=== PATIENT | male | born 1945 | race Caucasian/White ===

== ENCOUNTER 2023-01-04 08:21 | Outpatient (OUT) | payer MEDICARE, SELFPAY ==
[2023-01-04 15:30] LABS: Calcium Urine Random 14.9 mg/dL (5.1-21.0); Creatinine Urine Random 122.45 mg/dL (20.00-300.00); Sodium Urine Random 131 mmol/L (30-90)
[2023-01-04 15:34] LABS: Calcium 24 Hour Urine 197.4 mg/24hr (100.0-300.0); Sodium 24 Hour Urine 174 mmol/24h (40-220); Total Volume 24 Hour Urine 1325 mL/24hr
[2023-01-05 09:08] LABS: Magnesium, U 9.2 mg/dL (Not Estab.); Magnesium,Urine 24hr 121.9 mg/24 hr (12.0-293.0); Phosphorus, Urine 51.3 mg/dL (Not Estab.); Phosphorus,Urine 24h 680 mg/24 hr (390-1425); Uric Acid, Urine 26.3 mg/dL (Not Estab.); Uric Acid,Urine 24hr 348.5 mg/24 hr (136.1-771.1)
[2023-01-05 17:09] LABS: Citric Acid, U, 24hr 1031 mg/24 hr (320-1240); Citric Acid, Urine 764 mg/L (Undefined)
[2023-01-09 00:07] LABS: Oxalates, Urine 30 mg/L (Undefined); Oxalates, Urine 24hr 40 mg/24 hr (7-44)
== END 2023-01-04 08:22 | disposition home or self-care (01) ==
PROVIDERS: PCP Family Medicine; Visit Provider Urology
DX: N20.0 Calculus of kidney (principal)
CPT/HCPCS: 82340; 82507; 82570; 83735; 83945; 84300

== ENCOUNTER 2023-01-11 09:13 | Outpatient (OUT) | payer MEDICARE, SELFPAY ==
[2023-01-11 09:33] LABS: Basophils Percent Auto 0.4 % (0.2-2.0); Eosinophils Absolute Auto 0.3 10^3/uL (0.0-0.7); Eosinophils Percent Auto 4.6 % (0.9-7.0); Hematocrit 33.2 % (42.0-54.0); Hemoglobin 11.4 g/dL (14.0-18.0); Immature Granulocytes Abs Auto 0.02 10^3/uL (0.00-0.03); Immature Granulocytes Pct Auto 0.4 % (0.0-0.5); Lymphocytes Absolute Auto 0.9 10^3/uL (1.2-3.8); Lymphocytes Percent Auto 16.8 % (20.5-60.0); Mean Corpuscular HGB Conc 34.3 g/dL (29.9-35.2); Mean Corpuscular Hemoglobin 32.4 pg (25.9-34.0); Mean Corpuscular Volume 94.3 fL (80.0-94.0); Mean Platelet Volume 8.6 fL (9.5-13.5); Monocytes Absolute Auto 0.3 10^3/uL (0.3-0.8); Neutrophils Absolute Auto 3.9 10^3/uL (1.4-6.5); Neutrophils Percent Auto 71.8 % (43.0-75.0); Platelet Count 107 10^3/uL (150-450); Red Blood Count 3.52 10^6/uL (4.70-6.10); White Blood Count 5.5 10^3/uL (4.0-11.0)
[2023-01-11 10:09] LABS: Microalbumin Urine Random 5.9 mg/dL (<=30.0)
[2023-01-11 10:36] LABS: Alanine Aminotransferase 33 U/L (16-63); Albumin Globulin Ratio 1.1; Albumin Level 3.7 g/dL (3.4-5.0); Alkaline Phosphatase 95 U/L (46-116); Anion Gap 11.1; Aspartate Amino Transferase 20 U/L (15-37); BUN Creatinine Ratio 21.7; Bilirubin Direct 0.1 mg/dL (0.0-0.2); Bilirubin Total 0.4 mg/dL (0.2-1.0); Calcium 8.8 mg/dL (8.5-10.1); Carbon Dioxide 27.7 mmol/L (21.0-32.0); Chloride 103 mmol/L (98-107); Chol HDL Ratio 3.7; Cholesterol 121 mg/dL (<=200); Estimated GFR (African America >60 (>=60); Estimated GFR (Non-African Ame >60 (>=60); Globulin 3.3 g/dL; Glucose 107 mg/dL (74-106); HDL Cholesterol 33 mg/dL (40-60); Potassium 4.8 mmol/L (3.5-5.1); Sodium 137 mmol/L (136-145); Triglycerides 297 mg/dL (<=150); VLDL CHOLESTEROL 59.4 mg/dL
[2023-01-11 13:32] LABS: Estimated Average Glucose 126 mg/dL
== END 2023-01-11 09:14 | disposition home or self-care (01) ==
LOC: LAB 09:14
PROVIDERS: PCP Family Medicine; Visit Provider Family Medicine
DX: E11.65 Type 2 diabetes mellitus with hyperglycemia (principal); N18.31 Chronic kidney disease, stage 3a; I12.9 Hypertensive chronic kidney disease with stage 1 through stage 4 chronic kidney disease, or unspecified chronic kidney disease; E11.22 Type 2 diabetes mellitus with diabetic chronic kidney disease; E78.5 Hyperlipidemia, unspecified; Z79.899 Other long term (current) drug therapy; Z79.4 Long term (current) use of insulin
CPT/HCPCS: 36415; 80048; 80061; 80076; 82043; 82306; 83036; 85025

== ENCOUNTER 2023-08-07 09:48 | Outpatient (OUT) | payer MEDICARE, SELFPAY ==
[2023-08-07 10:37] LABS: Microalbumin Urine Random 9.3 mg/dL (<=30.0)
[2023-08-07 10:46] LABS: Estimated Average Glucose 157 mg/dL; Glycohemoglobin A1C 7.1 % (4.5-6.2)
== END 2023-08-07 09:49 | disposition home or self-care (01) ==
LOC: LAB 09:50
PROVIDERS: PCP Family Medicine; Visit Provider Family Medicine
DX: E11.65 Type 2 diabetes mellitus with hyperglycemia (principal); Z79.4 Long term (current) use of insulin
CPT/HCPCS: 36415; 82043; 83036

== ENCOUNTER 2024-12-30 09:10 | Outpatient (OUT) | payer MEDICARE, SELFPAY ==
--- OUTSIDE RECORDS SUMMARY | 2024-12-30 09:13 | XMS_ITS | Clinical Summary ---
Author Organization [facility] Address [address] [place] [address] Care Team Providers Care Engraver Signature Name Role Phone DavenportAlejandro Florecita GAN Primary Care Provider Allergies No known active allergies Medications metFORMIN (GLUCOPHAGE) 1,000 mg tablet Take 1,000 mg by mouth twice daily. 8 Active metoprolol succinate ER (TOPROL XL) 100 mg Tb24 Take 50 mg by mouth once daily. 8 Active lisinopril (ZESTRIL, PRINIVIL) 40 mg tablet Take 40 mg by mouth once daily. 8 Active allopurinol (ZYLOPRIM) 300 mg tablet Take 300 mg by mouth once daily. 8 Active tamsulosin ER (FLOMAX) 0.4 mg cap Take 0.4 mg by mouth once daily. 8 Active rosuvastatin (CRESTOR) 10 mg tablet Take 10 mg by mouth once daily. 8 Active esomeprazole (NEXIUM) 40 mg capsule Take 40 mg by mouth once daily. Active LANTUS U-100 INSULIN 100 unit/mL injection Inject 50 Units subcutaneously daily at bedtime. 8 Active TRULICITY 1.5 mg/0.5 mL pnij Inject 1.5 mg subcutaneously once each week. 9 Active cyanocobalamin (VITAMIN B-12) 1,000 mcg tab Take 1,000 mcg by mouth once daily. Active antiox #8/om3/dha/epa /lut/zeax (PRESERVISION AREDS 2, OMEGA-3, ORAL) Take 1 tablet by mouth twice daily. Active meloxicam (MOBIC) 15 mg tablet Take 15 mg by mouth once daily. 2 8 Active aspirin, enteric coated (ADULT LOW DOSE ASPIRIN) 81 mg EC tablet Take 81 mg by mouth once daily. Active acetaminophen (TYLENOL) 325 mg tablet Take 650 mg by mouth every 6 hours as needed. Active amLODIPine (NORVASC) 5 mg tablet Take 5 mg by mouth once daily. 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 Family History Medical History Relation Comments Diabetes Brother Hypertension Brother Diabetes Mother Hypertension Mother Amblyopia No Family History Blindness No Family History Cancer No Family History Cataract No Family History Detached Retina No Family History Glaucoma No Family History Heart No Family History Macular Degen No Family History Strabismus No Family History Relation Status Comments Brother Mother Social History Tobacco Use Types Packs/Day Years Used Date Smoking Tobacco: Never Smokeless Tobacco: Never Alcohol Use Standard Drinks/Week Comments Yes 0 (1 standard drink = 0.6 oz pur e alcohol) minimal Area Deprivation Index Answer Date Atul rded National Score (1-100), lower number is lower ri sk 66 07/08/2022 State Score (1-10), lower number is lower risk N ot on file 07/08/2022 Data from: https://www.neighborhoodatlas.medicine.[facility].edu/. Last address used for calculation [address] 07/08/2022 Sex and Gender Information Value Date Recorded Sex Assigned at Not on file Legal Sex Male 12:52 PM EDT Gender Identity Not on file Sexual Orientation Not on file Plan of Treatment Health Maintenance Due Date Last Done Comments Anxiety Screening 1963 Depression Screening 1963 DTaP,Tdap,Td Vaccine (1 - Tdap) 1964 Pneumococcal Vaccine: 50+ (1 of 1 - PCV) 1995 Shingrix Vaccine (1 of 2) 1995 RSV Vaccine (1 - 1-dose 75+ series) 2020 Diabetes Screening 08/29/2020 08/29/2017, 0 08/29/2017, 08/29/2017 Covid-19 Vaccine ( - 2023- season) 2024 Advance Directive Discussion 06/11/2024 Influenza Vaccine (#1) 2025 Insurance [facility] MEDICARE Care Teams Engraver Signature Relationship Specialty Start Date End Date Alejandro Davenport DO PCP - General Family Medicine 10/02/13
--- OUTSIDE RECORDS SUMMARY | 2024-12-30 09:13 | XMS_ITS | Encounter Summary ---
Author Organization [facility] Address [address] [place] [address] [place] [address] Care Team Providers Care Buffing Wheel Former Machine Name Role Phone Blake Larson MD Primary Care Provider [phone] Blake Larson MD Unavailable Encounter Details Date Type Department Care Team (Late Contact Info) Description 08/22/2023 External Result Encounter [facility] External Department Unsolicited Blake Larson MD [address] [place] [phone] Social History Tobacco Use Types Packs/Day Years Used Date Smoking Tobacco: Never Alcohol Use Standard Drinks/Week Comments Yes 1 (1 standard drink = 0.6 oz pure alcohol) Caffeine intake: 1-2 cups per day, coffee, soda AUDIT-C Answer Date Recorded Frequency of Alcohol Consumption Not on file 04/12/2023 Q2: How many drinks containi ng alcohol do you have on a typical day when you are drinking? 1 or 2 04/12/2023 Q3: How often do you have si x or more drinks on one occasion? Weekly 04/12/2023 Sex and Gender Information Value Date Recorded Sex Assigned at Not on file Legal Sex Male 6:53 PM EDT Gender Identity Not on file Sexual Orientation Not on file documented as of this encounter Plan of Treatment Upcoming Encounters Date Type Department Care Team (Late Contact Info) Description 01/26/2025 9:15 AM EDT Procedure Visit [facility] [address] [place] [phone] Errol Powell, DPM [address] [facility] [place] [place] [address] 02/03/2025 10:30 AM EDT Office Visit [facility] [address] [place] [address] Blake Larson MD [address] [place] [address] 07/28/2025 9:45 AM EST Office Visit [facility] [address] [place] [address] Sophia Mcmahon MD [address] [place] [address] documented as of this encounter Procedures Procedure Name Priority Date/Time Associated Diagnosis Comments STRESS TEST ONLY, REGADENOSON 08/22/2023 5:29 PM EDT documented in this encounter Results * Stress test only, Regadenoson (08/22/2023 5:29 PM EDT) Anatomical Region Laterality Modality Other 08/22/2023 5:29 PM EDT Narrative 08/24/2023 1:10 PM EDT [facility] Main [address] [address] Cardiac Stress Test Signed Patient: Fabian Chamorro MR#: [id number] : 1945 Acct:[id number] Age/Sex: 78 / M ADM Date: 08/22/23 Loc: Room: Type: [facility] Attending Dr: Blake Larson MD Copies to: MD Giancarlo Quintero MD Ordering Provider: Blake Larson MD Date of Service: 08/22/23 STR/STR cardiac stress/lexiscan: CHEST DISCOMFORT REFERRING PHYSICIAN: Blake Larson MD REASON FOR STUDY: Chest discomfort. PROCEDURE: The patient underwent Lexiscan myocardial perfusion study. The patient was injected with 0.4 mg of Lexiscan, following which no symptoms reported. Blood pressure and heart response to Lexiscan was physiologic. Baseline ECG showed normal sinus rhythm, nonspecific ST-T changes. Following Lexiscan, nondiagnostic changes were seen. CONCLUSION: 1. Lexiscan Cardiolite stress test without diagnostic ST-T changes for ischemia. 2. No provoked chest pain or arrhythmia. 3. Appropriate hemodynamic response to Lexiscan. 4. Myocardial perfusion study will be dictated separately. Transcribed By: GUSTAVO 08/23/23 1349 Dictated By: Giancarlo Hu MD 08/22/23 1729 Signed By: <Electronically signed by MD Giancarlo Hu> 08/24/23 1310 Procedure Note Giancarlo Hu MD - 08/24/2023 [facility] [place] [address] Cardiac Stress Test Signed Patient: Fabian Chamorro DMR#: [id number] : 6Acct:[id number] Age/Sex: 78 / MADM Date: 08/22/23 Loc: Room:Type: [facility] Attending Dr: Blake Larson MD Copies to: MD Giancarlo Quintero MD Ordering Provider: Blake Larson MD Date of Service: 08/22/23 STR/STR cardiac stress/lexiscan: CHESTDISCOMFORT REFERRING PHYSICIAN: Blake Larson MD REASON FOR STUDY: Chest discomfort. PROCEDURE: The patient underwent Lexiscan myocardial perfusion study.The patient was injected with 0.4 mg of Lexiscan, following which no symptoms reported. Bloodpressure and heart response to Lexiscan was physiologic. Baseline ECG showed normal sinus rhythm,nonspecific ST-T changes. Following Lexiscan, nondiagnostic changes were seen. CONCLUSION: 1. Lexiscan Cardiolite stress test without diagnostic ST-T changes forischemia. 2. No provoked chest pain or arrhythmia. 3. Appropriate hemodynamic response to Lexiscan. 4. Myocardial perfusion study will be dictated separately. Transcribed By: GUSTAVO 08/23/23 1349 Dictated By: Giancarlo Hu MD 08/22/23 1729 Signed By: <Electronically signed by MD Giancarlo Hu> 08/24/23 1310 Blake Larson MD CV STRESS PROCEDURES Final Resul t documented in this encounter Visit Diagnoses Not on filedocumented in this encounter Care Teams Buffing Wheel Former Machine Relationship Specialty Start Date End Date Blake Larson MD [address] [place] [address] PCP - General Family Medicine 07/24/23 Blake Larson MD [address] [place] [address] PCP - ACO Reach 07/18/24 documented as of this encounter
--- OUTSIDE RECORDS SUMMARY | 2024-12-30 09:13 | XMS_ITS | Encounter Summary ---
Author Organization [facility] Address [address] [place] [address] Care Team Providers Care Frame Table Operator Helper Name Role Phone Blake Larson MD Primary Care Provider [phone] Blake Larson MD Unavailable Encounter Details Date Type Department Care Team (Late st Contact Info) Description 08/14/2024 Orders Only [facility] [address] [place] [phone] [place] [address] [place] [address] Social History Tobacco Use Types Packs/Day Years Used Date Smoking Tobacco: Never Alcohol Use Standard Drinks/Week Comments Yes 1 (1 standard drink = 0.6 oz pure alcohol) Caffeine intake: 1-2 cups per day, coffee, soda B1300 Health Literacy Answer Date Recor ded How often do you need to hav e someone help you when you read instructions, pamphlets, or other written material from your doctor or pharmacy? Often 01/22/2024 Social Connection and Isolat ion Panel [NHANES] Answer Date Recorded In a typical week, how many times do you talk on the phone with family, friends, or neighbors? More than three times a week 01/22/2024 How often do you get togethe r with friends or relatives? Once a week 01/22/2024 How often do you attend [facility] or latter-day services? Patient declined 01/22/2024 Do you belong to any clubs o r organizations such as mormon groups, unions, fraternal or athletic groups, or school groups? No 01/22/2024 How often do you attend meet ings of the clubs or organizations you belong to? Patient declined 01/22/2024 Are you , , di vorced, , never , or living with a partner? 01/22/2024 AUDIT-C Answer Date Recorded Q1: How often do you have a drink containing alc ohol? Monthly or less 01/22/2024 Q2: How many drinks containi ng alcohol do you have on a typical day when you are drinking? 1 or 2 01/22/2024 Q3: How often do you have si x or more drinks on one occasion? Never 01/22/2024 Overall Financial Resource Strain (CARDIA) Answe r Date Recorded How hard is it for you to pa y for the very basics like food, housing, medical care, and heating? Not hard at all 01/22/2024 PHQ-2 Answer Date Recorded Patient Health Questionnaire-2 Score 0 08/05/2024 [facility] - Occupational Stress Questionnaire Answer Date Recorded Do you feel stress - tense, restless, nervous, or anxious, or unable to sleep at night because your mind is troubled all the time - these days? Patient declined 01/22/2024 Exercise Vital Sign Answer Date Recorde d On average, how many days pe r week do you engage in moderate to strenuous exercise (like a brisk walk)? Patient declined On average, how many minutes do you engage in exercise at this level? Patient declined 01/22/2024 Hunger Vital Sign Answer Date Recorded Within the past 12 months, y ou worried that your food would run out before you got the money to buy more. Never true 01/22/20 24 Within the past 12 months, t he food you bought just didn't last and you didn't have money to get more. Never true 01/22/2024 PRAPARE - Transportation Answer Date Re corded In the past 12 months, has l ack of transportation kept you from medical appointments or from getting medications? No 01/09 In the past 12 months, has l ack of transportation kept you from meetings, work, or from getting things needed for daily living? No 01/22/2024 Housing Stability Vital Sign Answer Pérez e Recorded In the last 12 months, was t here a time when you were not able to pay the mortgage or rent on time? No 01/22/2024 In the past 12 months, how m any times have you moved where you were living? 0 01/22/2024 At any time in the past 12 m [facility], were you homeless or living in a penitentiary (including now)? No 01/22/2024 Sex and Gender Information Value Date Recorded Sex Assigned at Not on file Legal Sex Male 6:53 PM EDT Gender Identity Not on file Sexual Orientation Not on file documented as of this encounter Plan of Treatment Upcoming Encounters Date Type Department Care Team (Late st Contact Info) Description 01/26/2025 9:15 AM EDT Procedure Visit [facility] [address] [place] [address] Errol Powell DPM [address] [place] [address] 02/03/2025 10:30 AM EDT Office Visit [facility] [address] [place] [address] Blake Larson MD [address] [place] [address] 07/28/2025 9:45 AM EST Office Visit [facility] [address] [place] [address] Sophia Mcmahon MD [address] [place] [address] documented as of this encounter Procedures Procedure Name Priority Date/Time Associated Diagnosis Comments DIABETES EYE EXAM Routine 08/14/2024 3:15 PM EST documented in this encounter Results * Hm Diabetes Eye Exam (08/14/2024 3:15 PM EST) us Benito Krause MD HEALTH MAINTENANCE Final Resul t documented in this encounter Visit Diagnoses Not on filedocumented in this encounter Additional Health Concerns Assessment Noted Time PHQ-9 Depression Total Score: 2 08/05/19 10:00 AM EST documented as of this encounter Care Teams Frame Table Operator Helper Relationship Specialty Start Date End Date Blake Larson MD [address] [place] [phone] PCP - General Family Medicine 07/24/23 Blake Larson MD [address] [place] [address] PCP - ACO Reach 07/18/24 documented as of this encounter
--- OUTSIDE RECORDS SUMMARY | 2024-12-30 09:13 | XMS_ITS | Clinical Summary ---
Author Organization [facility] Address [address] [place] [address] Phone Care Team Providers Care Casino Cage Manager Name Role Phone Unavailable Primary Care Provider Unavailabl e Social History Tobacco Use Types Packs/Day Years Used Date Smoking Tobacco: Never Assessed Sex and Gender Information Value Date Recorded Sex Assigned at Not on file Legal Sex Male 9:29 PM EST Gender Identity Not on file Sexual Orientation Not on file Plan of Treatment Health Maintenance Due Date Last Done Comments Lipid Panel 1945 Medicare Annual Wellness Vis it (AWV) 1945 Hepatitis C Screening 1963 DTaP/Tdap/Td Vaccines (1 - Tdap) 1967 Pneumococcal Vaccine (1 of 1 - PCV) 1995 Zoster Vaccines (1 of 2) 1995 RSV High Risk: (Elderly (60+ ) or Population) (1 - 1-dose 75+ series) 2020 COVID-19 Vaccine (1 - 2023-2 5 season) 2024 Influenza Vaccine (#1) 2025 HIB Vaccines Aged Out No longer eligi ble based on patient's age to complete this topic HPV Vaccines Aged Out No longer eligi ble based on patient's age to complete this topic Hepatitis A Vaccines Aged Out No long er eligible based on patient's age to complete this topic Hepatitis B Vaccines Aged Out No long er eligible based on patient's age to complete this topic IPV Vaccines Aged Out No longer eligi ble based on patient's age to complete this topic Meningococcal Vaccine Aged Out No annamarie deepika eligible based on patient's age to complete this topic Rotavirus Vaccines Aged Out No longer eligible based on patient's age to complete this topic Insurance MEDICARE PART A AND B [facility]
--- OUTSIDE RECORDS SUMMARY | 2024-12-30 09:13 | XMS_ITS | Encounter Summary ---
Author Organization [facility] Address [address] [place] [address] Care Team Providers Care Tree And Shrub Technician Name Role Phone Blake Larson MD Primary Care Provider [phone] Blake Larson MD Unavailable Encounter Details Date Type Department Care Team (Late st Contact Info) Description 04/21/2024 Abstract [facility] [address] [place] [phone] Errol Powell, DPHeladio [address] [place], [place] [phone] Social History Tobacco Use Types Packs/Day Years [...] week 01/22/2024 How often do you attend [facility] or protestant services? Patient declined 01/22/2024 Do you belong to any clubs o r organizations such as orthodoxy groups, unions, fraternal or athletic groups, or [...] and heating? Not hard at all 01/22/2024 [facility] - Occupational Stress Questionnaire Answer Date Recorded [...] any time in the past 12 m [facility], were you homeless or living in a fdc (including now)? No 01/22/2024 Sex and Gender Information Value Date Recorded Sex Assigned at Not on file Legal Sex Male 6:53 PM EDT Gender Identity Not on file Sexual Orientation Not on file documented as of this encounter Plan of Treatment Upcoming Encounters Date Type Department Care Team (Late st Contact Info) Description 01/26/2025 9:15 AM EDT Procedure Visit [facility] [address] [place] [phone] Errol Powell DPM [address] [facility] [place] [address] 02/03/2025 10:30 AM EDT Office Visit [facility] [address] [place] [address] Blake Larson MD [address] [place] [address] 07/28/2025 9:45 AM EST Office Visit [facility] [address] [place] [address] Sophia Mcmahon MD [address] [place] [address] documented as of this encounter Visit Diagnoses Not on filedocumented in this encounter Care Teams Tree And Shrub Technician Relationship Specialty Start Date End Date Blake Larson MD [address] [place] [address] PCP - General Family Medicine 07/24/23 Blake Larson MD [address] [place] [address] PCP - ACO Reach 07/18/24 documented as of this encounter
--- OUTSIDE RECORDS SUMMARY | 2024-12-30 09:13 | XMS_ITS | Encounter Summary ---
Author Organization [facility] Address [address] [place] [address] Care Team Providers Care Station Installer And Repairer Name Role Phone Blake Larson MD Primary Care Provider [phone] lBake Larson MD Unavailable Reason for Visit * Reason Comments Med Refill Encounter Details Date Type Department Care Team (Late st Contact Info) Description 09/11[facility]2024 [facility] [address] [address] Blake Larson MD [address] [place] [address] Type 2 diabetes mellitus with hyperglycemia, with long-term current use of insulin (HCC) Social History Tobacco Use Types Packs/Day Years [...] week 01/22/2024 How often do you attend chur ch or catholic services? Patient declined 01/22/2024 Do you belong to any clubs o r organizations such as confucianism groups, unions, fraternal or athletic groups, or [...] Recorded Patient Health Questionnaire-2 Score 0 08/05/2024 [facility] - Occupational Stress Questionnaire Answer Date Recorded [...] any time in the past 12 m [facility], were you homeless or living in a alf (including now)? No 01/22/2024 Sex and Gender Information Value Date Recorded Sex Assigned at Not on file Legal Sex Male 6:53 PM EDT Gender Identity Not on file Sexual Orientation Not on file documented as of this encounter Miscellaneous Notes * Telephone Encounter - ANNI CARPIO - 09/11/2024 11:49 AM EDT MEDICATION SENT TO [facility] documented in this encounter Plan of Treatment Upcoming Encounters Date Type Department Care Team (Late st Contact Info) Description 01/26/2025 9:15 AM EDT Procedure Visit [facility] [address] [place] [address] Errol Powell DPM [address] [place] [address] 02/03/2025 10:30 AM EDT Office Visit [facility] [address] [place] [address] Blake Larson MD [address] [place] [address] 07/28/2025 9:45 AM EST Office Visit [facility] [address] [place] [address] Sophia Mcmahon MD [address] [place] [address] documented as of this encounter Visit Diagnoses Diagnosis Type 2 diabetes mellitus with hyperglycemia, with long-term current use of insulin (HCC) documented in this encounter Additional Health Concerns Assessment Noted Time PHQ-9 Depression Total Score: 2 08/05/19 25 10:00 AM EST documented as of this encounter Care Teams Station Installer And Repairer Relationship Specialty Start Date End Date Blake Larson MD [address] [place] [address] PCP - General Family Medicine 07/24/23 Blake Larson MD [address] [place] [address] PCP - ACO Reach 07/18/24 documented as of this encounter
--- OUTSIDE RECORDS SUMMARY | 2024-12-30 09:13 | XMS_ITS | Encounter Summary ---
Author Organization [facility] Address [address] [place] [address] Care Team Providers Care Operations Manager Name Role Phone Blake Larson MD Primary Care Provider [phone] Blake Larson MD Unavailable Encounter Details Date Type Department Care Team (Late Contact Info) Description 08/23/2023 External Result Encounter [facility] External Department Unsolicited Blake Larson MD [address] [place] [id number] Social History Tobacco Use Types Packs/Day Years [...] Procedure Visit [facility] [address] [place] [phone] Errol Powell, DPM [address] [place], [place] [phone] 02/03/2025 10:30 AM EDT Office Visit [facility] [address] [place] [address] Blake Larson MD [address] [place] [address] 07/28/2025 9:45 AM EST Office Visit [facility] [address] [place] [address] Sophia Mcmahon MD [address] [place] [address] documented as of this encounter Procedures Procedure Name Priority Date/Time Associated Diagnosis Comments STRESS TEST WITH MYOCARDIAL PERFUSION 08/23/2023 11:23 AM EDT documented in this encounter Results * Stress test with myocardial perfusion (08/23/2023 11:23 AM EDT) Anatomical Region Laterality Modality Heart Other 08/23/2023 11:2 3 AM EDT Narrative 08/24/2023 1:10 PM EDT [facility] Main [place] [id number] Nuclear Medicine Report Signed Patient: Fabian Chamorro MR#: [id number] : 1945 Acct:[id number] Age/Sex: 78 / M ADM Date: 08/22/23 Loc: Room: Type: [facility] Attending Dr: Blake Larson MD Copies to: MD Giancarlo Quintero MD Ordering Provider: Blake Larson MD Date of Service: 08/22/23 NM/NM caleb perf SPECT rest str: CHEST PAIN DOSE ORDERED REFERRING PHYSICIAN: Blake Larson MD REASON FOR STUDY: Chest pain. PROCEDURE: The patient underwent 2-day rest/stress protocol. Rest images obtained by injecting 28.5 mCi of Cardiolite. Stress images obtained by injecting 27.4 mCi of Cardiolite. Subsequently, gated SPECT and ejection fraction studies were performed. IMAGING RESULT: This appears to be a fair study. No clear pattern of ischemia or myocardial infarction. Left ventricular ejection fraction is calculated at 63%. TID index normal at 1.02. CONCLUSION: 1. Normal myocardial perfusion study. 2. No ischemia or myocardial infarction. 3. Normal left ventricular systolic function and wall motion. 4. No previous study available for comparison. Transcribed By: GUSTAVO 08/23/23 1356 Dictated By: Giancarlo Hu MD 08/23/23 1123 Signed By: <Electronically signed by MD Giancarlo Hu> 08/24/23 1310 Procedure Note Giancarlo Hu MD - 08/24/2023 [facility] Main [place] [address] [place] [address] Nuclear Medicine Report Signed Patient: Fabian Chamorro DMR#: [id number] : 6Acct:[id number] Age/Sex: 78 / MADM Date: 08/22/23 Loc: Room:Type: [facility] Attending Dr: Blake Larson MD Copies to: MD Giancarlo Quintero MD Ordering Provider: Blake Larson MD Date of Service: 08/22/23 NM/NM caleb perf SPECT rest str: CHEST PAINDOSE ORDERED REFERRING PHYSICIAN: Blake Larson MD REASON FOR STUDY: Chest pain. PROCEDURE: The patient underwent 2-day rest/stress protocol. Rest imagesobtained by injecting 28.5 mCi of Cardiolite. Stress images obtained by injecting 27.4 mCi ofCardiolite. Subsequently, gated SPECT and ejection fraction studies were performed. IMAGING RESULT: This appears to be a fair study. No clear pattern ofischemia or myocardial infarction. Left ventricular ejection fraction is calculated at 63%. TIDindex normal at 1.02. CONCLUSION: 1. Normal myocardial perfusion study. 2. No ischemia or myocardial infarction. 3. Normal left ventricular systolic function and wall motion. 4. No previous study available for comparison. Transcribed By: GUSTAVO 08/23/23 1356 Dictated By: Giancarlo Hu MD 08/23/23 1123 Signed By: <Electronically signed by MD Giancarlo Hu> 08/24/23 1310 us Blake Larson MD CV STRESS PROCEDURES Final Resul t documented in this encounter Visit Diagnoses Not on filedocumented in this encounter Care Teams Operations Manager Relationship Specialty Start Date End Date Blake Larson MD [address] [place] [address] PCP - General Family Medicine 07/24/23 Blake Larson MD [address] [place] [address] PCP - ACO Reach 07/18/24 documented as of this encounter
--- OUTSIDE RECORDS SUMMARY | 2024-12-30 09:13 | XMS_ITS | Encounter Summary ---
Author Organization [facility] Address [address] [place] [address] Care Team Providers Care Truck Railroad And Bus Motor Mechanic Name Role Phone Blake Larson MD Primary Care Provider [phone] Blake Larson MD Unavailable Encounter Details Date Type Department Care Team (Late st Contact Info) Description 12/08/[address] [facility] [address] [place] [phone] Blake Larson MD [address] [place] [address] Social History Tobacco Use Types Packs/Day Years [...] week 01/22/2024 How often do you attend [facility] or adventism services? Patient declined 01/22/2024 Do you belong to any clubs o r organizations such as episcopalian groups, unions, fraternal or athletic groups, or [...] Recorded Patient Health Questionnaire-2 Score 0 08/05/2024 [facility] of Occupat ional [facility] - Occupational Stress Questionnaire Answer [...] any time in the past 12 m [facility], were you homeless or living in a care home (including now)? No 01/22/2024 Sex and Gender Information Value Date Recorded Sex Assigned at Not on file Legal Sex Male 6:53 PM EDT Gender Identity Not on file Sexual Orientation Not on file documented as of this encounter Plan of Treatment Upcoming Encounters Date Type Department Care Team (Late st Contact Info) Description 01/26/2025 9:15 AM EDT Procedure Visit [facility] [address] [facility] [place] [address] Errol Powell DPM [address] [place] [address] 02/03/2025 10:30 AM EDT Office Visit [facility] [address] [place] [phone] Blake Larson MD [address] [place] [address] 07/28/2025 9:45 AM EST Office Visit [facility] [address] [place] [address] Sophia Mcmahon MD [address] [place] [address] documented as of this encounter Visit Diagnoses Not on filedocumented in this encounter Additional Health Concerns Assessment Noted Time PHQ-9 Depression Total Score: 2 08/05/19 25 10:00 AM EST documented as of this encounter Care Teams Truck Railroad And [employer] Motor Mechanic Relationship Specialty Start Date End Date Blake Larson MD [address] [place] [phone] PCP - General Family Medicine 07/24/23 Blake Larson MD [address] [place] [address] PCP - ACO Reach 07/18/24 documented as of this encounter
--- OUTSIDE RECORDS SUMMARY | 2024-12-30 09:13 | XMS_ITS | Encounter Summary ---
Author Organization [facility] Address [address] [place] [address] Care Team Providers Care Pharmacy Operations Specialist Name Role Phone Blake Larson MD Primary Care Provider [phone] Blake Larson MD Unavailable Encounter Details Date Type Department Care Team (Late st Contact Info) Description 12/09/2024 Abstract [facility] [address] [place] [address] Blake Larson MD [address] [place] [address] Social History Tobacco Use Types Packs/Day Years [...] week 01/22/2024 How often do you attend [facility] or christian services? Patient declined 01/22/2024 Do you belong to any clubs o r organizations such as jewish groups, unions, fraternal or athletic groups, or [...] Recorded Patient Health Questionnaire-2 Score 0 08/05/2024 [facility] of Occupat ional [facility] - Occupational Stress Questionnaire Answer Date Recorded [...] AM EDT Procedure Visit [facility] [address] [facility] [place] [address] Errol Powell DPM [address] [place] [address] 02/03/2025 10:30 AM EDT Office Visit [facility] [address] [place] [address] Blake Larson MD [address] [place] [address] 07/28/2025 9:45 AM EST Office Visit [facility] [address] [place] [address] Sophia Mcmahon MD [address] [place] [address] documented as of this encounter Visit Diagnoses Not on filedocumented in this encounter Additional Health Concerns Assessment Noted Time PHQ-9 Depression Total Score: 2 08/05/19 25 10:00 AM EST documented as of this encounter Care Teams Pharmacy Operations Specialist Relationship Specialty Start Date End Date Blake Larson MD [address] [place] [address] PCP - General Family Medicine 07/24/23 Blake Larson MD [address] [place] [address] PCP - ACO Reach 07/18/24 documented as of this encounter
--- OUTSIDE RECORDS SUMMARY | 2024-12-30 09:13 | XMS_ITS | Encounter Summary ---
Author Organization [facility] Address [address] [place] [address] Care Team Providers Care Heeler Machine Name Role Phone Blake Larson MD Primary Care Provider [phone] Blake Larson MD Primary Care Provider [phone] Blake Larson MD Unavailable Encounter Details Date Type Department Care Team (Late st Contact Info) Description 12/24/2022 Abstract [facility]ODI[facility] [address] [place] [address] Errol Powell DPM [address] [place], [place] [phone] Social History Tobacco Use Types Packs/Day Years Used Date Smoking Tobacco: Never Tobacco Cessation:Counseling Given: Not Answered Alcohol Use Standard Drinks/Week Comments Yes 1 (1 standard drink = 0.6 oz pure alcohol) Caffeine intake: 1-2 cups per day, coffee, soda Sex and Gender Information Value Date Recorded Sex Assigned at Not on file Legal Sex Male 6:53 PM EDT Gender Identity Not on file Sexual Orientation Not on file documented as of this encounter Plan of Treatment Upcoming Encounters Date Type Department Care Team (Late st Contact Info) Description 01/26/2025 9:15 AM EDT Procedure Visit [facility]ODIAT[facility] [address] [place] [address] Errol Powell DPM [address] [place] [address] 02/03/2025 10:30 AM EDT Office Visit [facility] [address] [place] [address] Blake Larson MD [address] [place] [address] 07/28/2025 9:45 AM EST Office Visit [facility] [address] [place] [address] Sophia Mcmahon MD [address] [place] [address] documented as of this encounter Visit Diagnoses Not on filedocumented in this encounter Care Teams Heeler Machine Relationship Specialty Start Date End Date Blake Larson MD PCP - General Family Medicine 12/21/22 07/23/23 Blake Larson MD [address] [place] [address] PCP - General Family Medicine 07/24/23 Blake Larson MD [address] [place] [address] PCP - ACO Reach 07/18/24 documented as of this encounter
--- OUTSIDE RECORDS SUMMARY | 2024-12-30 09:13 | XMS_ITS | Encounter Summary ---
Author Organization [facility] Address [address] [place] [address] Phone Care Team Providers Care Business Professor Name Role Phone Unavailable Primary Care Provider Unavailabl e Encounter Details Date Type Department Care Team (Late st Contact Info) Description 08/22/2023 Scanned Document [facility] [address] [place] [address] Scanning, Generic Provider Social History Tobacco Use Types Packs/Day Years Used Date Smoking Tobacco: Never Assessed Sex and Gender Information Value Date Recorded Sex Assigned at Not on file Legal Sex Male 9:29 PM EST Gender Identity Not on file Sexual Orientation Not on file documented as of this encounter Plan of Treatment Not on file documented as of this encounter Procedures Procedure Name Priority Date/Time Associated Diagnosis Comments STRESS TEST - ONBASE SCAN 08/22/2023 documented in this encounter Results * STRESS TEST - ONBASE SCAN (08/22/2023) Narrative 08/22/2023 Ordered by an unspecified provider. us Generic Provider Scanning CV STRESS PROCEDURES F inal Result documented in this encounter Visit Diagnoses Not on filedocumented in this encounter
--- OUTSIDE RECORDS SUMMARY | 2024-12-30 09:13 | XMS_ITS | Clinical Summary ---
Author Organization [employer] [facility] Address [id number] [address] [place] [address] Care Team Providers Care Service Electrician Name Role Phone Blake Larson MD Primary Care Provider [phone] Allergies No known active allergies Medications metFORMIN (GLUMETZA) 1000 MG (MOD) 24 hr tabletIndicatio ns:type 2 diabetes mellitus Take 1,000 mg by mouth 2 (two) times a day with meals. Active lisinopril (PRINIVIL,ZESTR IL) 20 mg tablet Take 20 mg by mouth daily. Active tamsulosin (FLOMAX) 0.4 mg capsule,extende d release 24hr Take 0.4 mg by mouth nightly. Active metoprolol succinate XL (TOPROL-XL) 100 mg 24 hr tablet Take 100 mg by mouth daily. Active allopurinol (ZYLOPRIM) 300 mg tablet Take 300 mg by mouth daily. Active cyanocobalamin 1000 MCG tablet Take 1,000 mcg by mouth daily. Active insulin glargine (LANTUS, BASAGLAR) 100 unit/mL (3 mL) insulin pen Inject 60 Units under the skin nightly. Active dulaglutide (TRULICITY) 1.5 mg/0.5 mL pen injector Inject 1 Dose under the skin once a week. Takes weekly on Sunday Active VIT A/VIT C/VIT E/ZINC/COPPER (ICAPS AREDS ORAL) Take 1 tablet by mouth daily. Active rosuvastatin (CRESTOR) 10 mg tablet Take 10 mg by mouth daily. Active esomeprazole (NexIUM) 40 mg capsule Take 40 mg by mouth every morning before breakfast. Active Active Problems Problem Noted Date Diagnosed Date Transient cerebral ischemia 08/30/2017 Family History Medical History Relation Name Comments Diabetes Mother Relation Name Status Comments Mother Social History Tobacco Use Types Packs/Day Years Used Date Smoking Tobacco: Never Smokeless Tobacco: Never Alcohol Use Standard Drinks/Week Comments Yes 3 (1 standard drink = 0.6 oz pur e alcohol) Childcare Answer Date Recorded Childcare Unknown 11/20/2018 Employment Answer Date Recorded Employment Unknown 11/20/2018 Purpose - Life Answer Date Recorded Purpose and direction in life Unknown Sex and Gender Information Value Date Recorded Sex Assigned at Not on file Legal Sex Male 11:31 AM EDT Gender Identity Not on file Sexual Orientation Not on file Last Filed Vital Signs Vital Sign Reading Time Taken Comments Blood Pressure 145/75 08/30/2017 3:47 PM EDT Pulse 85 08/30/2017 3:47 PM EDT Temperature 36.5 C (97.7 F) 08/30/2017 3:47 PM EDT Respiratory Rate 16 08/30/2017 3:47 PM EDT Oxygen Saturation 97% 08/30/2017 3:47 PM EDT Inhaled Oxygen Concentration - - Weight 98 kg (216 lb 0.8 oz) 08/30/2017 3:16 AM EDT Height 188 cm (6' 2 ) 08/29/2017 11:00 AM EDT Body Mass Index 27.74 08/29/2017 11:00 AM EDT Plan of Treatment Not on file Medical Devices Not on file Insurance MEDICARE [facility] Advance Directives * Full Code (Latest Code Status on File) Date Activated Date Inactivated Comments 08/29/2017 3:43 PM 08/30/2017 7:25 PM Care Teams Service Electrician Relationship Specialty Start Date End Date Blake Larson MD PCP - General Family Medicine 08/29/17
--- OUTSIDE RECORDS SUMMARY | 2024-12-30 09:13 | XMS_ITS | Clinical Summary ---
Author Organization [facility] Address [address], [address] [place] [address] Care Team Providers Care Navy Senior Officer Name Role Phone Unavailable Primary Care Provider Unavailabl e Allergies No known active allergies Medications esomeprazole Magnesium (NEXIUM) 20 MG PACK Take 20 mg by mouth daily Active insulin glargine (LANTUS) 100 UNIT/ML injection vial Inject into the skin nightly Active allopurinol (ZYLOPRIM) 100 MG tablet Take 100 mg by mouth daily Active metFORMIN (GLUCOPHAGE) 1000 MG tablet Take 1,000 mg by mouth 2 times daily (with meals) Active lisinopril (PRINIVIL;ZESTR IL) 20 MG tablet Take 20 mg by mouth daily Active metoprolol succinate (TOPROL XL) 50 MG extended release tablet Take 50 mg by mouth daily Active ROSUVASTATIN CALCIUM PO Take by mouth Activ e Dulaglutide (TRULICITY) 0.75 MG/0.5ML SOPN Inject 0.75 mg into the skin once a week Active tamsulosin (FLOMAX) 0.4 MG capsule Take 0.4 mg by mouth daily Active Cyanocobalamin (VITAMIN B 12 PO) Take by mouth Active insulin lispro (HUMALOG) 100 UNIT/ML injection vial Inject into the skin 3 times daily (before meals) Active aspirin 81 MG EC tablet Take 81 mg by mouth daily Active Coenzyme Q10 (COQ10) 100 MG CAPS Take by mouth Active terbinafine (LAMISIL) 1 % cream Apply topically 2 times daily Apply topically 2 times daily. Active Multiple Vitamins-Minera ls (MULTIVITAMIN ADULT PO) Take by mouth Active celecoxib (CELEBREX) 100 MG capsule Take 100 mg by mouth 2 times daily Active Active Problems Problem Noted Date Diagnosed Date Reactive lymphadenopathy 05/04/2020 Family History Medical History Relation Name Comments Diabetes Brother Heart Disease Brother Hypertension Brother Diabetes Mother Hypertension Mother Stroke Mother Diabetes Son Relation Name Status Comments Brother Alive Mother Son Alive Social History Tobacco Use Types Packs/Day Years Used Date Smoking Tobacco: Never Smokeless Tobacco: Never Alcohol Use Standard Drinks/Week Comments Not Currently 0 (1 standard drink = 0.6 oz pur e alcohol) social Sex and Gender Information Value Date Recorded Sex Assigned at Not on file Legal Sex Male 11:38 AM EST Gender Identity Not on file Sexual Orientation Not on file Last Filed Vital Signs Vital Sign Reading Time Taken Comments Blood Pressure 169/89 05/04/2020 10:27 AM EST Pulse 86 05/04/2020 10:27 AM EST Temperature 36.6 C (97.9 F) 05/04/2020 10:27 AM EST Respiratory Rate - - Oxygen Saturation - - Inhaled Oxygen Concentration - - Weight 97.5 kg (215 lb) 05/04/2020 10:27 AM EST Height 190.5 cm (6' 3 ) 05/04/2020 10:27 AM EST Body Mass Index 26.87 05/04/2020 10:27 AM EST Plan of Treatment Not on file Insurance MEDICARE [employer] [facility] MEDICARE SUPP
--- OUTSIDE RECORDS SUMMARY | 2024-12-30 09:13 | XMS_ITS | Clinical Summary ---
Author Organization [facility] Healthcare Address [address] [place] [address] Care Team Providers Care Prison Psychiatrist Name Role Phone Blake Larson MD Primary Care Provider [phone] Blake Larson MD Unavailable Allergies No known active allergies Medications Coenzyme Q10 (Co Q-10) 100 MG chewable tablet Active Cyanocobalamin (Vitamin B12) 1000 MCG tablet controlled-rele ase 1 (one) time each day at the same time Active esomeprazole (NexIUM) [address] capsule Take 40 mg by mouth in the morning. Take before meals. Active ferrous sulfate 325 (65 Fe) MG tablet 1 (one) time each day at the same time Active Multiple Vitamin (Multi Vitamin) tablet 1 (one) time each day at the same time Active Multiple Vitamins-Minera ls (PreserVision AREDS) tablet Active aspirin 81 MG EC tablet 1 (one) time each day at the same time Active Blood Glucose Monitoring Suppl (True Metrix Meter) w/Device kitIndications: Type 2 diabetes mellitus with hyperglycemia, with long-term current use of insulin (HCC) 1 each in the morning and 1 each in the evening and 1 each before bedtime. 1 kit 08/01/19 24 Active Accu-Chek Softclix Lancets lancetsIndicati ons:Type 2 diabetes mellitus with hyperglycemia, with long-term current use of insulin (HCC) USE DIRECTED to test BLOOD SUGAR THREE TIMES DAILY 100 each 2 10/17/19 24 Active insulin glargine (Lantus SoloStar) 100 UNIT/ML pen Inject 45 Units under the skin at bedtime 01/28/20 24 Active cephalexin (Keflex) 500 MG capsuleIndicati ons:History of total shoulder replacement, unspecified laterality Take 4 pills 30-60 mins before dental appointment with food 4 capsule 3 03/25/20 24 Active semaglutide (Ozempic, 1 MG/DOSE,) 4 MG/3ML solution pen-injectorInd ications:Type 2 diabetes mellitus with hyperglycemia, with long-term current use of insulin ([facility]) Inject 1 mg under the skin 1 (one) time per week 3 each 07/03/19 25 Active insulin glargine (Lantus) 100 UNIT/ML injectionIndica tions:Type 2 diabetes mellitus with hyperglycemia, with long-term current use of insulin ([facility]) Inject 45 Units under the skin at bedtime 45 mL 07/03/19 25 Active allopurinol (Zyloprim) 300 MG tabletIndicatio ns:History of renal calculi Take 1 tablet (300 mg) by mouth Daily 90 tablet 07/03/19 25 Active tamsulosin (Flomax) 0.4 MG 24 hr capsuleIndicati ons:Prostate cancer (HCC) Take 1 capsule (0.4 mg) by mouth Daily 90 capsule 07/03/19 25 Active metFORMIN (Glucophage) 1000 MG tabletIndicatio ns:Type 2 diabetes mellitus with hyperglycemia, with long-term current use of insulin ([facility]),Hyperchol esterolemia,Bhavya vated PSA,Dyslipidemi a Take 1 tablet (1,000 mg) by mouth in the morning and 1 tablet (1,000 mg) in the evening. Take with meals. 180 tablet 07/03/19 026 Active lisinopril 20 MG tabletIndicatio ns:Type 2 diabetes mellitus with hyperglycemia, with long-term current use of insulin ([facility]),Hyperchol esterolemia,Bhavya vated PSA,Dyslipidemi a Take 1 tablet (20 mg) by mouth 1 (one) time each day at the same time 90 tablet 07/03/19 026 Active metoprolol succinate XL (Toprol-XL) 50 MG 24 hr tabletIndicatio ns:Type 2 diabetes mellitus with hyperglycemia, with long-term current use of insulin ([facility]),Hyperchol esterolemia,Bhavya vated PSA,Dyslipidemi a Take 1 tablet (50 mg) by mouth Daily 90 tablet 3 07/03/19 25 026 Active rosuvastatin (Crestor) 10 MG tabletIndicatio ns:Type 2 diabetes mellitus with hyperglycemia, with long-term current use of insulin (HCC),Hyperchol esterolemia,Bhavya vated PSA,Dyslipidemi a Take 1 tablet (10 mg) by mouth in the morning. 90 tablet 07/03/19 25 026 Active hydrOXYzine HCl (Atarax) 25 MG tabletIndicatio ns:Pruritus Take 1 tablet (25 mg) by mouth 4 (four) times a day as needed for itching 60 tablet 3 08/05/19 25 Active Magnesium Oxide, Elemental, 400 MG tabletIndicatio ns:Hypomagnesem ia Take 400 mg by mouth in the morning and at noon 60 tablet 5 08/07/19 25 Active True Metrix Blood Glucose Test test stripIndication s:Type 2 diabetes mellitus with hyperglycemia, with long-term current use of insulin (HCC) USE DIRECTED to test BLOOD SUGAR IN THE MORNING, IN THE EVENING and BEFORE bedtime 100 strip 11 09/12/19 25 Active True Metrix Blood Glucose Test test stripIndication s:Type 2 diabetes mellitus with hyperglycemia, with long-term current use of insulin (HCC) USE DIRECTED to test BLOOD SUGAR THREE TIMES DAILY (IN THE MORNING, IN THE EVENING, and BEFORE bedtime) 100 strip 11 09/12/19 25 Active insulin syringe-needle U-100 (TechLITE Insulin Syringe) 31G X 5/16 1 mL miscIndications :Type 2 diabetes mellitus with hyperglycemia, with long-term current use of insulin (HCC) As needed 100 each 3 12/05/19 25 Active insulin syringe-needle U-100 (TechLITE Insulin Syringe) 31G X 5/16 1 mL miscIndications :Type 2 diabetes mellitus with hyperglycemia, with long-term current use of insulin (HCC) As needed 100 each 3 10/17/19 24 025 Discontinued insulin syringe-needle U-100 (GNP Insulin Syringes 31Gx5/16 ) 31G X 5/16 0.3 mL miscIndications :Type 2 diabetes mellitus with hyperglycemia, with long-term current use of insulin (HCC) Use as needed 100 each 3 09/04/19 25 025 Discontinued Active Problems Problem Noted Date Diagnosed Date 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 Discussed proper diet and regular aerobic exercise. Need aerobic exercise 5-6 days a week for 30 minutes at a time. Smaller portions and limit total calories. Tetanus every 10 years. Advised not to smoke. Charcot joint of left foot 08/05/2024 Nocturnal leg cramps 08/05/2024 Assessment & Plan (08/05/2024 12:08 PM EST): Frequent cramps and check labs. Increase water intake and stretch at bedtime. OTC supplement helps and try nightly prior to bed. If no improvement can try flexeril at bedtime. Pruritus 08/05/2024 Assessment & Plan (08/05/2024 12:08 PM EST): Skin itchy but no rash. Likely related to dryness. Use hydroxyzine PRN. Use lotion several times a day. Erectile dysfunction 01/28/2024 History of prostate cancer 01/28/2024 Encounter for long-term current use of medicatio n 01/24/2024 Dyslipidemia 08/01/2023 Primary osteoarthritis of right shoulder 024 Type 2 diabetes mellitus wit h hyperglycemia, with long-term current use of insulin 08/01/2023 Assessment & Plan (06/20/2024 10:05 AM EST): BS stable and warned prednisone will raise BS. Check BS TID. Stick to ADA diet and limit carbs. Assessment & Plan (01/28/2024 9:51 AM EDT): BS stable and continue medication. Check BS TID. Assessment & Plan (08/13/2023 11:46 AM EST): BS stable and continue medication. Check BS TID. Assessment & Plan (08/01/2023 2:24 PM EST): Reports BS variable but typically controlled. Due for A1C. Peptic ulcer disease 08/01/2023 Assessment & Plan (01/28/2024 9:51 AM EDT): Symptoms controlled with nexium and continue. Assessment & Plan (08/01/2023 2:22 PM EST): Symptoms controlled with nexium and continue. Diabetic retinopathy associa sonia with type 2 diabetes mellitus 08/01/2023 BPH without urinary obstruction 08/01/2023 Assessment & Plan (01/28/2024 9:51 AM EDT): Symptoms controlled with flomax and continue. Follow with urology. Assessment & Plan (08/01/2023 2:22 PM EST): Symptoms controlled with flomax and continue. Seasonal allergic rhinitis due to pollen 024 Assessment & Plan (01/28/2024 9:51 AM EDT): Symptoms controlled with medication and continue. Assessment & Plan (08/01/2023 2:22 PM EST): Symptoms controlled with medication and continue. Elevated PSA 12/25/2022 History of gastric ulcer 12/25/2022 History of renal calculi 12/25/2022 Hypercholesterolemia 12/25/2022 Benign essential hypertension 12/25/2022 Assessment & Plan (01/28/2024 9:51 AM EDT): BP controlled and monitor PRN. Assessment & Plan (08/01/2023 2:22 PM EST): BP controlled and monitor PRN. Kidney stone 12/25/2022 Presence of right artificial shoulder joint 12/09 Localized, primary osteoarthritis of hand 07/17/ 2023 Rupture of right rotator cuff 12/25/2022 Tear of medial meniscus of knee 12/25/2022 Overview (12/25/2022): LEFT KNEE TIA (transient ischemic attack) 12/25/2022 Reactive lymphadenopathy 05/04/2020 [place] romeo, left 06/18/2018 Resolved Problems Problem Noted Date Diagnosed Date Resolved Date Acute non-recurrent maxillary sinusitis 06/20/2024 08/05/2024 Assessment & Plan (06/20/2024 10:04 AM EST): Take antibiotics for 7 days. Use prednisone for inflammation. Use sudafed or other decongestants as needed. Use Robitussin or Robitussin-DM for cough. Can use afrin for congestion but no longer than 3 days. Can use Mucinex to bring up phlegm. Use Motrin or Tylenol as needed for fever, aches, or pains. Increase fluid intake and rest. Should improve over next 5-7 days and if no better or worse call for re- evaluation. Chest pain at rest 08/13/2023 Assessment & Plan (08/13/2023 11:46 AM EST): Pain getting worse and multiple risk factors for CAD including DM, HTN, and dyslipidemia. Check treadmill cardiolyte stress test. Will refer to cardiology in [place] after obtain results. If pain worsens go to ER. BPH with urinary obstruction 12/25/2022 08/01/2023 Nocturia 12/25/2022 08/05/2024 Pressure ulcer of left heel, stage 2 12/25/2022 08/01/2023 Prostate cancer 12/25/2022 01/28/2024 Type 2 diabetes mellitus with foot ulcer 12/25/2022 08/01/2023 Encounters Date Type Department Care Team Description 12/09/2024 Refill [facility] [address] [place] [address] Blake Larson MD 12/09/2024 Abstract [facility] [address] [place] [address] Blake Larson MD 12/08/2024 Abstract [facility] [address] [place] [phone] Blake Larson MD 12/04/2024 Refill [facility] [address] [place] [address] Blake Larson MD Type 2 diabetes mellitus with hyperglycemia, with long-term current use of insulin ([facility]) 10/20/2024 11:15 AM EDT Office Visit [facility] [address] [place] [address] Jaycob Ferguson DO Left elbow pain (Primary Dx) 10/20/2024 8:05 AM EDT Ancillary Procedure [facility] [address] [place] [address] 10/20/2024 Travel 10/13/2024 9:15 AM EDT Procedure Visit [facility] [address] [facility] [phone] Errol Powell, DPHeladio Dermatophytosis of nail (Primary Dx); Dystrophic nail; Diabetic polyneuropathy associated with type 2 diabetes mellitus (HCC); Encounter for long-term (current) use of insulin ([facility]) 10/13/2024 Bamboo flowsheet [facility] [address] [place] [phone] Errol Powell DPM 10/13/2024 Travel 10/10/2024 Travel from Last 3 Months Immunizations Immunization Administration Dates Next Due Influenza, High Dose Seasona l, Preservative Free 03/11/2019,03/21/2017,03/30/2016,02/22 Influenza, High-dose Seasona l, Quadrivalent, Preservative Free 03/02/2021,02/24/2020 Influenza, Seasonal, Quadriv alent, Adjuvanted 05/07/2023 Influenza, Unspecified 03/29/2022 Influenza, injectable, quadr ivalent, preservative free 04/05/2020,03/18/2018,03/12/2017 Influenza, seasonal, injectable 04/01/2014,05/19 Influenza, trivalent, adjuvanted 04/30/2024,03/11 Pfizer Purple Cap SARS-CoV-2 Vaccination 08/11/2020,07/26/2020,07/14/2020 Pneumococcal Conjugate PCV 13 03/26/2019 Pneumococcal Polysaccharide PPSV23 04/27/2020,,03/23/2014 SARS-COV-2 (COVID-19) vaccin e, mRNA, spike protein, LNP, PF, 50 mcg/0.5 mL 04/30/2024,05/07/2023 Family History Medical History Relation Name Comments Diabetes Brother berlin Heart disease Brother berlin Hypertension Brother berlin Parkinsonism Father Diabetes Mother ma Hypertension Mother ma Stroke Mother ma Diabetes Son chalo Melanoma Neg Hx Relation Name Status Comments Brother berlin Alive 2 Father Mother ma Son chalo Alive Social History Tobacco Use Types Packs/Day [...] 01/22/2024 How often do you attend chur or alevism services? Patient declined 01/22/2024 Do you belong to any clubs o r organizations such as religion groups, unions, fraternal or athletic groups, or [...] Recorded Patient Health Questionnaire-2 Score 0 08/05/2024 [facility] - Occupational Stress Questionnaire Answer Date Recorded [...] any time in the past [address] [facility], were you homeless or living in a alf (including now)? No 01/22/2024 Sex and Gender Information Value Date Recorded Sex Assigned at Not on file Legal Sex Male 6:53 PM EDT Gender Identity Not on file Sexual Orientation Not on file Last Filed Vital Signs Vital Sign Reading Time Taken Comments Blood Pressure 122/58 08/05/2024 10:48 AM EST Pulse 85 08/05/2024 10:48 AM EST Temperature 36.4 C (97.5 F) 08/05/2024 10:48 AM EST Respiratory Rate 18 08/05/2024 10:48 AM EST Oxygen Saturation 97% 08/05/2024 10:48 AM EST Inhaled Oxygen Concentration - - Weight 94.3 kg (208 lb) 10/20/2024 12:00 PM EDT Height 188 cm (6' 2 ) 10/20/2024 12:00 PM EDT Body Mass Index 26.71 10/20/2024 12:00 PM EDT Plan of Treatment Upcoming Encounters Date Type Department Care Team (Late st Contact Info) Description 01/26/2025 9:15 AM EDT Procedure Visit [facility] [address] [place] [address] Errol Powell DPM [address] [place] [address] 02/03/2025 10:30 AM EDT Office Visit [facility] [address] [place] [address] Blake Larson MD [address] [place] [address] 07/28/2025 9:45 AM EST Office Visit [facility] [address] [place] [address] Sophia Mcmahon MD [address] [place] [address] Health Maintenance Due Date Last Done Comments Diabetes: Hemoglobin A1C 02/03/2025 025, 01/30/2024, 01/25/2024, Additional history exists Influenza Vaccine (#1) 2025 4, 05/07/2023, 03/29/2022, Additional history exists Medicare Annual Wellness (AWV) 08/05/2025 08/05/2024 Diabetes: Urine Protein Screening 08/06/2025 08/06/2024, 08/07/2023, 01/11/2023 Diabetes: Retinopathy Screening 08/14/2025 5, 07/16/2023 Pneumococcal Vaccine: 65+ Years Completed 04/27/2020, 03/26/2019, 03/11/2019, Additional history exists Procedures Procedure Name Priority Date/Time Associated Diagnosis Comments XR ELBOW 3+ VIEWS LEFT Routine 10/20/2024 8:04 AM EDT Left elbow pain MICROALBUMIN / CREATININE URINE RATIO Routine 08/06/2024 2:02 PM EST HEMOGLOBIN A1C WITH EAG Routine 08/06/2024 2:01 PM EST from Last 3 Months or Most Recently Relevant to Health Maintenance Results * XR elbow 3+ views left (10/20/2024 8:04 AM EDT) Anatomical Region Laterality Modality Upper Extremities, Elbow Left Radiogr aphic Imaging Narrative 10/20/2024 4:01 PM EDT Imaging Result: Four views of the left elbow, AP/lateral/oblique/radiocapitellar, taken today and saved to the permanent medical record. No acute osseous abnormalities, no fat pad sign. Joint spaces are preserved. Tiny osteophyte at the tip of the olecranon. us Jaycob Ferguson DO IMG XR PROCEDURES Final Result * (ABNORMAL) Microalbumin / creatinine urine ratio (08/06/2024 2:02 PM EST) MICROALBUMIN, URINE 7.1(H) 0.0 - 1.8 mg/dL 08/06/2024 3:02 PM [facility] CREATININE, URINE (RANDOM) 81.00 mg/dL 08/06/2024 3:02 PM [facility] Comment:No reference range e stablished MICROALBUMIN/CRE ATININE RATIO 87.7(H) 0.0 - 30.0 mg/g 08/06/2024 3:02 PM [facility] Comment: 30-300 mg/g indicates an increased risk for diabetic nephropathy. Greater than 300 mg/g is consistent with clinical nephropathy. (Am. J. Kidney Disease 1995, 25:107) Other 08/06/2024 2:02 PM EST 08/06/2024 2:02 PM EST Blake Larson MD LAB URINE ORDERABLES Final Resul t Performing Organization Address [facility] de Phone Number [address] [address], [place] [phone] * (ABNORMAL) Hemoglobin a1c with eag (08/06/2024 2:01 PM EST) HEMOGLOBIN A1C 7.4(H) 4.3 - 5.6 % 08/07/2024 8:33 AM [facility] Comment: Increased risk for diabetes: 5.7 - 6.4 diabetes: >6.4 glycemic control for adults with diabetes: <7.0 ESTIMATED AVERAGE GLUCOSE 166 mg/dL 08/07/2024 8:33 AM [facility] Blood (Blood) 08/06/2024 2:0 1 PM EST 08/06/2024 2:01 PM EST us Blake Larson MD LAB BLOOD ORDERABLES Final Resul t Performing Organization Address [facility] Co de Phone Number [place] [phone], [place] [phone] from Last 3 Months or Most Recently Relevant to Health Maintenance Insurance MEDICARE [facility] Care Teams Prison Psychiatrist Relationship Specialty Start Date End Date Blake Larson MD [address] [place] [address] PCP - General Family Medicine 07/24/23 Blake Larson MD [address] [place] [address] PCP - ACO Reach 07/18/24
--- NOTE | 2024-12-30 09:47 | ECG_ITS ---
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 Measurements Intervals Cord Rate: 78 P: 26 ID: [id number] QRS: -24 QRSD: 87 T: 91 QT: 359 QTc: 411 Interpretive Statements SINUS RHYTHM BORDERLINE LEFT AXIS DEVIATION [QRS AXIS < -20] NONSPECIFIC T-WAVE ABNORMALITY Compared to ECG 08/29/2017 10:21:07 T-wave abnormality now present Myocardial infarct finding no longer present Electronically Signed On 12-31-2024 7:01:15 EDT by CASSANDRA JOSE M.D.
--- NOTE | 2024-12-30 09:48 | CT_ITS ---
The [address] [address] Patient Name: ZAHC TRACY MRN: [id number] date: 1945 Sex: M Assigned Patient Location: CT Current Patient Location: [facility] Accession/Order Number: [id number] Exam Date: 12/30/2024 11:04 Report Date: 12/30/2024 11:06 At the request of: JERMAINE JENSEN MD Procedure: CT abdomen pelvis wo con CT ABDOMEN AND PELVIS WITHOUT INTRAVENOUS CONTRAST: CLINICAL HISTORY: Kidney Stone, Gross Hematuria COMPARISON: None TECHNIQUE: Spiral images were obtained through the abdomen and pelvis without intravenous contrast. This CT exam was performed using one or more following dose reduction techniques: Automated exposure control, adjustment of the mA and/or kV according to patient size, or use of iterative reconstruction technique. FINDINGS: Lung Bases: [Bibasilar atelectasis] Organs:Suboptimal evaluation due to lack of IV contrast. Liver gallbladder pancreas spleen and adrenal glands all appear unremarkable. 4 mm stone right kidney. Multiple stones are seen involving the left kidney largest measuring 1.3 cm in greatest axial dimension. No obstructive uropathy. Abdominal aorta appears normal in caliber.[ GI: Stomach is grossly unremarkable. Small bowel appears nondilated. 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 Urinary bladder is grossly remarkable.] Peritoneum/Retroperitoneum:No free air or free fluid or lymphadenopathy.[ Abd wall/Bones:Abdominal wall demonstrate no acute findings. Osseous structures demonstrate degenerative change.[ CT/CT abdomen pelvis wo con IMPRESSION: Bilateral nephrolithiasis largest stone measuring 1.3 cm involving the left kidney. No obstructive uropathy. Impression dictated by: Ritchie Cabrera Jr., D.ORowena 12/30/2024 11:06 AM Dictation Location: [place] [address] Electronically authenticated by: [id number] Y Date: 12/30/2024 11:06
--- NOTE | 2024-12-30 10:54 | PM.PRESUREVA ---
History of Present Illness History of Present Illness Chief complaint: Hematuria, Left Kidney Stone Narrative: Patient presents for presurgical testing accompanied by his . Please see HPI from Dr. Mancia dated December 29, 2024. Review of Systems ROS Narrative Please see ROS from Dr. Mancia dated December 29, 2024. 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) Bleeding ulcer ?K28.4 - Chronic or unspecified gastrojejunal ulcer with hemorrhage (ICD-10) Macular degeneration ?H35.30 - Unspecified macular degeneration (ICD-10) Diabetic retinopathy ?E11.319 - Type 2 diabetes mellitus with unspecified diabetic retinopathy without macular edema (ICD-10) Diabetes ?E11.9 - Type 2 diabetes mellitus without complications (ICD-10) Hypercholesterolemia ?E78.00 - Pure hypercholesterolemia, unspecified (ICD-10) Hypertension ?I10 - Essential (primary) hypertension (ICD-10) Gastric ulcer ?K25.9 - Gastric ulcer, unspecified as acute or chronic, without hemorrhage or perforation (ICD-10) Erectile dysfunction ?N52.9 - Male erectile dysfunction, unspecified (ICD-10) Back pain ?M54.9 - Dorsalgia, unspecified (ICD-10) BPH (benign prostatic hyperplasia) ?N40.0 - Benign prostatic hyperplasia without lower urinary tract symptoms (ICD-10) TIA (transient ischemic attack) ?G45.9 - Transient cerebral ischemic attack, unspecified (ICD-10) Prostate cancer ?C61 - Malignant neoplasm of prostate (ICD-10) Kidney stones ?N20.0 - Calculus of kidney (ICD-10) Hematuria ?R31.9 - Hematuria, unspecified (ICD-10) Surgical History (Updated 12/30/24 @ 10:31 by Leelee Brito NP) S/P ureteral stent placement ?Z96.0 - Presence of urogenital implants (ICD-10) History of tonsillectomy and adenoidectomy ?Z90.89 - Acquired absence of other organs (ICD-10) 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 - Presence of unspecified artificial shoulder joint (ICD-10) H/O knee surgery ?Z98.890 - Other specified postprocedural states (ICD-10) H/O foot surgery ?Z98.890 - Other specified postprocedural states (ICD-10) H/O lithotripsy ?Z98.890 - Other specified postprocedural states (ICD-10) H/O prostate biopsy ?Z98.890 - Other specified postprocedural states (ICD-10) Family History (Updated 12/30/24 @ 10:31 by Leelee Brito NP) Other Family history of diabetes mellitus Family history of hypertension Family history of myocardial infarction Family history of stroke Social History (Updated 12/30/24 @ 10:24 by Leelee Brito NP) Within the past year, how often did you have a drink containing alcohol: monthly or less Smoking status: Never smoker Non-prescribed substance use: denies use Highest level of school completed/degree received: high school graduate Meds Home Medications and Allergies Home Medications ?Medication ?Instructions ?Recorded ?Confirmed ?Type allopurinol 300 mg tablet 300 mg PO DAILY 12/30/24 12/30/24 History aspirin 81 mg tablet,delayed 81 mg PO DAILY 12/30/24 12/30/24 History release (Adult Aspirin Regimen) coenzyme Q10 100 mg capsule (Co 100 mg PO DAILY 12/30/24 12/30/24 History Q-10) esomeprazole magnesium 20 mg 20 mg PO QPM 12/30/24 12/30/24 History capsule,delayed release ferrous sulfate 325 mg (65 mg 325 mg PO DAILY 12/30/24 12/30/24 History iron) tablet (Feosol) insulin glargine 100 unit/mL 55 unit subcut QPM 12/30/24 12/30/24 History subcutaneous solution (Lantus U-100 Insulin) insulin lispro 100 unit/mL 8 unit subcut QAM 12/30/24 12/30/24 History subcutaneous pen lisinopril 20 mg tablet 20 mg PO QPM 12/30/24 12/30/24 History magnesium oxide 400 mg (241.3 mg 400 mg PO BID 12/30/24 12/30/24 History magnesium) tablet metformin 1,000 mg tablet 1,000 mg PO BID 12/30/24 12/30/24 History metoprolol succinate 50 mg 50 mg PO QPM 12/30/24 12/30/24 History tablet,extended release 24 hr multivitamin (Daily Multi-Vitamin 1 tab PO DAILY 12/30/24 12/30/24 History tablet) rosuvastatin 10 mg tablet 10 mg PO DAILY 12/30/24 12/30/24 History semaglutide 1 mg/dose (4 mg/3 mL) 1 mg subcut QWEEK 12/30/24 12/30/24 History subcutaneous pen injector (Ozempic) vitamin B complex 1 tab PO DAILY 12/30/24 12/30/24 History vitamins A,C,J-blvy-niukdt 4,296 1 cap PO DAILY 12/30/24 12/30/24 History mcg-226 mg-90 mg capsule (PreserVision AREDS) Allergies Allergy/AdvReac Type Severity Reaction Status Date / Time No Known Drug Allergies Allergy Verified 12/30/24 10:20 Exam Narrative Exam Narrative: Constitutional: Awake, alert, comfortable, well-appearing, nontoxic, interactive, vital signs as charted Head: Normocephalic, atraumatic Neck: Supple, normal appearance, normal range of motion, no meningeal signs, no lymphadenopathy Respiratory: No respiratory distress, breath sounds clear Cardiovascular: Regular rate and rhythm, systolic murmur noted Abdomen: Nontender, normal bowel sounds, soft, no CVA tenderness Musculoskeletal: Normal gait, no swelling or edema Skin: No rashes or induration, no lesions, only visible skin inspected Neuro: No neurological deficits, normal sensation Psychiatric: Oriented ?3, normal affect Assessment and Plan Assessment and Plan (1) Hematuria: (2) Kidney stones: Plan Cystoscopy, left ESWL scheduled with Dr. Mancia January 08, 2025.
[2024-12-30 11:00] LABS: Anion Gap 12.0; Blood Urea Nitrogen 20.0 mg/dL (7.0-18.0); Calcium 9.6 mg/dL (8.5-10.1); Carbon Dioxide 30.3 mmol/L (21.0-32.0); Chloride 102 mmol/L (98-107); Estimated GFR (African America >60 (>=60 mL/min/1.73m^2); Estimated GFR (Non-African Ame >60 (>=60 mL/min/1.73m^2); Glucose 168 mg/dL (74-106); Hematocrit 32.6 % (42.0-54.0); Hemoglobin 11.3 g/dL (14.0-18.0); Immature Granulocytes Abs Auto 0.02 10^3/uL (0.00-0.03); Immature Granulocytes Pct Auto 0.4 % (0.0-0.5); Lymphocytes Absolute Auto 1.0 10^3/uL (1.2-3.8); Mean Corpuscular HGB Conc 34.7 g/dL (29.9-35.2); Mean Corpuscular Hemoglobin 33.1 pg (25.9-34.0); Mean Corpuscular Volume 95.6 fL (80.0-94.0); Platelet Count 119 10^3/uL (150-450); Potassium 5.3 mmol/L (3.5-5.1); Red Blood Count 3.41 10^6/uL (4.70-6.10); Sodium 139 mmol/L (136-145); White Blood Count 5.5 10^3/uL (4.0-11.0)
[2024-12-30 11:08] LABS: INR 1.01; Partial Thromboplastin Time 27.9 sec (22.3-36.2); Prothrombin Time 10.7 sec (9.0-11.6)
== END 2024-12-30 09:11 | disposition home or self-care (01) ==
LOC: CT 09:11
PROVIDERS: PCP Family Medicine; Visit Provider Urology
DX: Z01.810 Encounter for preprocedural cardiovascular examination (principal); Z01.812 Encounter for preprocedural laboratory examination; Z01.818 Encounter for other preprocedural examination; N20.0 Calculus of kidney; R31.0 Gross hematuria; M54.9 Dorsalgia, unspecified; R31.9 Hematuria, unspecified; C61 Malignant neoplasm of prostate
CPT/HCPCS: 74176; 80048; 85025; 85610; 85730; 93005; G0463

== ENCOUNTER 2025-01-09 06:48 | Outpatient (OUT) | payer MEDICARE, SELFPAY ==
--- OUTSIDE RECORDS SUMMARY | 2025-01-02 11:45 | XMS_ITS | Encounter Summary ---
Author Organization [facility] Address [address] [place] [address] Care Team Providers Care Natural Sciences Manager Name Role Phone Blake Larson MD Primary Care Provider Blake Larson MD Unavailable Reason for Referral * Imaging (Routine) - Authorized Specialty Diagnoses / Procedures Referred By Contac t Referred To Contact Radiology Diagnoses Other chest pain Abnormal EKG Procedures Stress test with myocardial perfusion Blake Larson MD [address] [place] [address] Phone: tel: fax: [facility] [address] [place] [address] Phone: tel: fax: Referral ID Status Reason Start Date Expiration Date V isits Requested Visits Authorized [id number] Authorized 01/02/2025 07/01/2025 3 3 Reason for Visit * Reason Comments Follow-up Surgical clearance Encounter Details Date Type Department Care Team ([facility] Contact Info) Description 01/02/2025 11:45 AM EDT Office Visit [facility] [address] [place] [phone] Blake Larson MD [address] [place] [phone] Preoperative clearance (Primary Dx); Other chest pain; Abnormal EKG; Renal calculi; Thrombocytopenia; Type 2 diabetes mellitus with hyperglycemia, with long-term current use of insulin (HCC); Benign essential hypertension Social History Tobacco Use Types Packs/Day Years [...] week 01/22/2024 How often do you attend [facility] or zoroastrianism services? Patient declined 01/22/2024 Do you belong [...] Recorded Patient Health Questionnaire-2 Score 0 08/05/2024 [facility] [place] of Occupat ional Health - Occupational Stress [...] any time in the past 12 m [facility], were you homeless or living in a nursing home (including now)? No 01/22/2024 Sex and Gender Information Value Date Recorded Sex Assigned at Not on file Legal Sex Male 6:53 PM EDT Gender Identity Not on file Sexual Orientation Not on file documented as of this encounter Last Filed Vital Signs Vital Sign Reading Time Taken Comments Blood Pressure 112/54 01/02/2025 11:48 AM EDT Pulse 89 01/02/2025 11:48 AM EDT Temperature 36.2 C (97.1 F) 01/02/2025 11:48 AM EDT Respiratory Rate 18 01/02/2025 11:48 AM EDT Oxygen Saturation 98% 01/02/2025 11:48 AM EDT Inhaled Oxygen Concentration - - Weight 88.9 kg (196 lb) 01/02/2025 11:48 AM EDT Height 188 cm (6' 2 ) 01/02/2025 11:48 AM EDT Body Mass Index 25.16 01/02/2025 11:48 AM EDT documented in this encounter Progress Notes * Blake Larson MD - 01/02/2025 12:56 PM EDTAssociated Problem(s): Type 2 diabetes mellitus with hyperglycemia, with long-term current use of insulin (HCC) BS stable and check BS TID. Stick to ADA diet and limit carbs. * Blake Larson MD - 01/02/2025 12:56 PM EDTAssociated Problem(s): Thrombocytopenia Mild and stable since 2018. Likely related to aspirin. * Blake Larson MD - 01/02/2025 12:55 PM EDTAssociated Problem(s): Renal calculi Follow with urology for removal. * Blake Larson MD - 01/02/2025 12:55 PM EDTAssociated Problem(s): Preoperative clearance Stress test ordered. If negative will be able to proceed with surgery at low risk for complications. DM and HTN controlled with medication. No history of CAD. Labs show low platelets but stable sinceat least 2017, likely related to daily aspirin. Patient will be able to hold aspirin for 7 days prior to surgery. * Blake Larson MD - 01/02/2025 12:54 PM EDTAssociated Problem(s): Other chest pain Increased discomfort and fatigue. Likely related to dehydration and muscular but patient with risk factors for CAD. Check lexiscan cardiolyte stress test. * Blake Larson MD - 01/02/2025 12:53 PM EDTAssociated Problem(s): Abnormal EKG EKG with T changes but present on EKG in 2023 prior to stress test. Likely benign. * Blake Larson MD - 01/02/2025 12:52 PM EDTAssociated Problem(s): Benign essential hypertension BP controlled and monitor PRN. * Blake Larson MD - 01/02/2025 11:45 AM EDT Images from the original note were not included. Subjective Patient ID: Fabian Chamorro is a 79 y.o. male who presents for Follow-up (Surgical clearance/). Presents for preoperative clearance. History of kidney stones and follows with urology. Recent episode of hematuria. C/o pain in right flank and back. Seen by urology and stone for years but increased in size. Scheduled for cystoscopy and left helium laser 01/08. concerned and patient c/o chestcramping for several weeks. Notice off and on but occurs with exertion. 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 Notice overall increased fatigue over past few weeks. Tried to help reza zamora had to stop due to fatigue and SOB. At the time it was very hot and patient wasn't drinking a lot of water. Lexiscan cardiolyte stress test negative August 2023. Preop labs showed low platelets of119. EKG with nonspecific T wave changes. Review of Systems Constitutional: Negative for fatigue. Respiratory: Negative for cough, shortness of breath and wheezing. Cardiovascular: Positive for chest pain. Negative for palpitations. Gastrointestinal: Negative for abdominal pain, diarrhea, nausea and vomiting. Genitourinary: Negative for dysuria. Objective Physical Exam Constitutional: General: He is not in acute distress. Appearance: Normal appearance. HENT: Head: Normocephalic. Right Ear: Tympanic membrane and ear canal normal. Left Ear: Tympanic membrane and ear canal normal. Eyes: Extraocular Movements: Extraocular movements intact. Pupils: Pupils are equal, round, and reactive to light. Cardiovascular: Rate and Rhythm: Normal rate and regular rhythm. Heart sounds: No murmur heard. No friction rub. No gallop. Pulmonary: Breath sounds: Normal breath sounds. No wheezing, rhonchi or rales. Abdominal: General: Bowel sounds are normal. There is no distension. Palpations: Abdomen is soft. Tenderness: There is no abdominal tenderness. There is no guarding or rebound. Musculoskeletal: Left lower leg: No edema. Neurological: Mental Status: He is alert. Assessment/Plan Problem List Items Addressed This Visit Benign essential hypertension BP controlled and monitor PRN. Renal calculi Follow with urology for removal. Type 2 diabetes mellitus with hyperglycemia, with long-term current use of insulin (HCC) BS stable and check BS TID. Stick to ADA diet and limit carbs. Preoperative clearance - Primary Stress test ordered. If negative will be able to proceed with surgery at low risk for complications. DM and HTN controlled with medication. No history of CAD. Labs show low platelets but stable sinceat least 2017, likely related to daily aspirin. Patient will be able to hold aspirin for 7 days prior to surgery. Other chest pain Increased discomfort and fatigue. Likely related to dehydration and muscular but patient with risk factors for CAD. Check lexiscan cardiolyte stress test. Relevant Orders Stress test with myocardial perfusion Thrombocytopenia Mild and stable since 2017. Likely related to aspirin. Abnormal EKG EKG with T changes but present on EKG in 2023 prior to stress test. Likely benign. Relevant Orders Stress test with myocardial perfusion documented in this encounter Plan of Treatment Upcoming Encounters Date Type Department Care Team (Late st Contact Info) Description 01/26/2025 9:15 AM EDT Procedure Visit [facility] [address] [place] [phone] Errol Powell DPM [address] [place], [place] [phone] 02/03/2025 10:30 AM EDT Office Visit [facility] [address] [place] [address] Blake Larson MD [address] [place] [phone] 07/28/2025 9:45 AM EST Office Visit [facility] [place] [facility] [address] [place] [address] Sophia Mcmahon MD [address] [place] [address] Scheduled Orders Name Type Priority Associated Diagnoses Orde r Schedule Stress test with myocardial perfusion Cardiac Nuclear Medicine Routine Other chest pain Abnormal EKG Expected: 01/02/2025 (Approximate), Expires: 01/02/2027 documented as of this encounter Visit Diagnoses Diagnosis Preoperative clearance- Primary Unspecified pre-operative examination Other chest pain Abnormal EKG Nonspecific abnormal electrocardiogram (ECG) (EKG) Renal calculi Calculus of kidney Thrombocytopenia Unspecified thrombocytopenia Type 2 diabetes mellitus with hyperglycemia, with long-term current use of insulin (HCC) Benign essential hypertension Essential hypertension, benign documented in this encounter Additional Health Concerns Assessment Noted Time PHQ-9 Depression Total Score: 2 08/05/19 25 10:00 AM EST documented as of this encounter Care Teams Natural Sciences Manager Relationship Specialty Start Date End Date lBake Larson MD [address] [place] [address] PCP - General Family Medicine 07/24/23 Blake Larson MD [address] [place] [address] PCP - ACO Reach 07/18/24 documented as of this encounter
--- OUTSIDE RECORDS SUMMARY | 2025-01-09 06:53 | XMS_ITS | Encounter Summary ---
Author Organization [facility] Address [address] [place] [address] Care Team Providers Care Mechanical Equipment Sales Engineer Name Role Phone Blake Larson MD Primary Care Provider [phone] Blake Larson MD Unavailable Encounter Details Date Type Department Care Team (Late st Contact Info) Description 01/02/2025 Bamboo flowsheet [facility] [address] [place] [phone] Blake Larson MD [address] [place] [address] Social History Tobacco Use Types Packs/Day Years [...] 01/22/2024 How often do you attend [facility] or spiritism services? Patient declined 01/22/2024 Do you belong to any clubs o r organizations such as temple groups, unions, fraternal or athletic groups, or [...] Recorded Patient Health Questionnaire-2 Score 0 08/05/2024 [facility] - [facility]ational Stress Questionnaire Answer [...] any time in the past 12 m [facility], were you homeless or living in a detention (including now)? No 01/22/2024 Sex and Gender Information Value Date Recorded Sex Assigned at Not on file Legal Sex Male 6:53 PM EDT Gender Identity Not on file Sexual Orientation Not on file documented as of this encounter Plan of Treatment Upcoming Encounters Date Type Department Care Team (Late st Contact Info) Description 01/26/2025 9:15 AM EDT Procedure Visit [facility] [address] [place] [address] Errol Powell DPHeladio [address] [place] [address] 02/03/2025 10:30 AM EDT Office Visit [facility] [address] [place] [address] Blake Larson MD [address] [place] [address] 07/28/2025 9:45 AM EST Office [facility] [address] [place] [address] Sophia Mcmahon MD [address] [place] [address] documented as of this encounter Visit Diagnoses Not on filedocumented in this encounter Additional Health Concerns Assessment Noted Time PHQ-9 Depression Total Score: 2 08/05/19 25 10:00 AM EST documented as of this encounter Care Teams Mechanical Equipment Sales Engineer Relationship Specialty Start Date End Date Blake Larson MD [address] [place] [address] PCP - General Family Medicine 07/24/23 Blake Larson MD [address] [place] [address] PCP - ACO Reach 07/18/24 documented as of this encounter
--- OUTSIDE RECORDS SUMMARY | 2025-01-09 06:53 | XMS_ITS | Encounter Summary ---
Author Organization [facility] Address [address] [place] [address] Care Team Providers Care Power Tong Operator Name Role Phone Blake Larson MD Primary Care Provider [phone] Blake Larson MD Unavailable Encounter Details Date Type Department Care Team (Late st Contact Info) Description 01/08/2025 [facility] [address] [place] [phone] Blake Larson MD [address] [place] [address] Social History Tobacco Use Types Packs/Day Years [...] week 01/22/2024 How often do you attend [facility] or mu-ism services? Patient declined 01/22/2024 Do you belong to any clubs o r organizations such as latter-day groups, unions, fraternal or athletic groups, or [...] Recorded Patient Health Questionnaire-2 Score 0 08/05/2024 [facility] Occupat ional [facility] - Occupational Stress Questionnaire Answer Date [...] any time in the past 12 m [facility], were you homeless or living in a nursing home (including now)? No 01/22/2024 Sex and Gender Information Value Date Recorded Sex Assigned at Not on file Legal Sex Male 6:53 PM EDT Gender Identity Not on file Sexual Orientation Not on file documented as of this encounter Miscellaneous Notes * Telephone Encounter - Blake Larson MD - 01/08/2025 9:20 AM EDT Hold metoprolol the morning of test. Should be okay taking other medication. If fasting do not takeinsulin in am. * Telephone Encounter - ANNI CARPIO - 01/08/2025 9:05 AM EDT Patient called states when he scheduled Stress test for Sunday, he was told to check with PCP if heshould hold any meds prior to testing. clm documented in this encounter Plan of Treatment Upcoming Encounters Date Type Department Care Team (Late st Contact Info) Description 01/26/2025 9:15 AM EDT Procedure Visit [facility] [address] [facility] [place] [phone] Errol Powell DPM [address] [place] [address] 02/03/2025 10:30 AM EDT Office Visit [facility] [address] [place] [address] Blake Larson MD [address] [place] [address] 07/28/2025 9:45 AM EST Office [facility] [address] [place] [phone] Sophia Mcmahon MD [address] [place] [address] documented as of this encounter Visit Diagnoses Not on filedocumented in this encounter Additional Health Concerns Assessment Noted Time PHQ-9 Depression Total Score: 2 08/05/19 10:00 AM EST documented as of this encounter Care Teams Power Tong Operator Relationship Specialty Start Date End Date Blake Larson MD [address] [place] [address] PCP - General Family Medicine 07/24/23 Blake Larson MD [address] [place] [address] PCP - ACO Reach 07/18/24 documented as of this encounter
--- OUTSIDE RECORDS SUMMARY | 2025-01-09 06:53 | XMS_ITS | Encounter Summary ---
Author Organization [facility] Address [address] [place] [address] Care Team Providers Care Major Appliance Assembly Supervisor Name Role Phone Blake Larson MD Primary Care Provider [phone] Blake Larson MD Unavailable Encounter Details Date Type Department Care Team (Late st Contact Info) Description 01/06/2025 Orders Only [facility] [address] [place] [phone] Jonnie Mancia MD [address] [place] [address] Social History Tobacco Use Types Packs/Day Years [...] week 01/22/2024 How often do you attend [facility] or scientologist services? Patient declined 01/22/2024 Do you belong to any clubs o r organizations such as worship groups, unions, fraternal or athletic groups, or [...] Recorded Patient Health Questionnaire-2 Score 0 08/05/2024 [facility] of Occupat ional Health - Occupational Stress [...] any time in the past 12 m [facility], were you homeless or living in a [facility] (including now)? No 01/22/2024 Sex and Gender Information Value Date Recorded Sex Assigned at Not on file Legal Sex Male 6:53 PM EDT Gender Identity Not on file Sexual Orientation Not on file documented as of this encounter Plan of Treatment Upcoming Encounters Date Type Department Care Team (Late st Contact Info) Description 01/26/2025 9:15 AM EDT Procedure Visit [facility] [address] [place] [address] Errol Powell DPM [address] [facility] [place] [address] 02/03/2025 10:30 AM EDT Office Visit [facility] [address] [place] [address] Blake Larson MD [address] [place] [address] 07/28/2025 9:45 AM EST Office [facility] [address] [place] [address] Sophia Mcmahon MD [address] [place] [address] documented as of this encounter Procedures Procedure Name Priority Date/Time Associated Diagnosis Comments SCANNED LABS Routine 01/06/2025 1:17 PM EDT documented in this encounter Results * SCANNED LABS (01/06/2025 1:17 PM EDT) us Jonnie Mancia MD LAB CHG PERFORMABLES Final R esult documented in this encounter Visit Diagnoses Not on filedocumented in this encounter Additional Health Concerns Assessment Noted Time PHQ-9 Depression Total Score: 2 08/05/19 10:00 AM EST documented as of this encounter Care Teams Major Appliance Assembly Supervisor Relationship Specialty Start Date End Date Blake Larson MD [address] [place] [address] PCP - General Family Medicine 07/24/23 Blake Larson MD [address] [place] [address] PCP - ACO Reach 07/18/24 documented as of this encounter
--- OUTSIDE RECORDS SUMMARY | 2025-01-09 06:53 | XMS_ITS | Encounter Summary ---
Author Organization [facility] Address [address] [place] [address] Care Team Providers Care Ammunition Components Inspector Name Role Phone Blake Larson MD Primary Care Provider [phone] Blake Larson MD Unavailable Encounter Details Date Type Department Care Team (Late st Contact Info) Description 08/14/2024 Orders Only [facility] [address] [place] [phone] [place] [address] [place] [address] Social History Tobacco Use Types [...] How often do you attend [facility] or adventism services? Patient declined 01/22/2024 [...] Recorded Patient Health Questionnaire-2 Score 0 08/05/2024 [facility] Occupat ional [facility] - Occupational Stress Questionnaire Answer Date [...] any time in the past 12 m [facility], were you homeless or living in a long term (including now)? No 01/22/2024 Sex and Gender Information Value Date Recorded Sex Assigned at Not on file Legal Sex Male 6:53 PM EDT Gender Identity Not on file Sexual Orientation Not on file documented as of this encounter Plan of Treatment Upcoming Encounters Date Type Department Care Team (Late st Contact Info) Description 01/26/2025 9:15 AM EDT Procedure Visit [facility] [address] [place] [address] Errol Powell DPM [address] [place] [address] 02/03/2025 10:30 AM EDT Office Visit [facility] [address] [place] [address] Blake Larson MD [address] [place] [address] 07/28/2025 9:45 AM EST Office Visit [facility] [address] [place] [address] Sophia Mcmahon MD [address] [place] [address] documented as of this encounter [...] documented as of this encounter Care Teams Ammunition Components Inspector Relationship Specialty Start Date End Date Blake Larson MD [address] [place] [address] PCP - General Family Medicine 07/24/23 Blake Larson MD [address] [place] [address] PCP - ACO Reach 07/18/24 documented as of this encounter
--- OUTSIDE RECORDS SUMMARY | 2025-01-09 06:53 | XMS_ITS | Clinical Summary ---
Author Organization [facility] Address [address] [place] [address] Phone Care Team Providers Care Egg Breaker Name Role Phone Unavailable Primary Care Provider [...] topic Insurance MEDICARE PART A AND B [facility]
--- OUTSIDE RECORDS SUMMARY | 2025-01-09 06:53 | XMS_ITS | Encounter Summary ---
Author Organization [facility] Address [address] [place] [address] Phone Care Team Providers Care Crochet Machine Operator Name Role Phone Unavailable Primary Care Provider Unavailabl e Encounter Details Date Type Department Care Team (Late st Contact Info) Description 08/22/2023 Scanned Document [facility] [address] [place] [address] Scanning, Generic Provider Social History [...]
--- OUTSIDE RECORDS SUMMARY | 2025-01-09 06:53 | XMS_ITS | Encounter Summary ---
Author Organization [facility] Address [address] [place] [address] Care Team Providers Care Termite Renewal Inspector Name Role Phone Blake Larson MD Primary Care Provider [phone] Blake Larson MD Unavailable Encounter Details Date Type Department Care Team (Late Contact Info) Description 08/23/2023 External Result Encounter [facility] External Department Unsolicited Blake Larson MD [address] [place] [address] Social History Tobacco Use Types Packs/Day Years [...] 01/26/2025 9:15 AM EDT Procedure Visit [facility] [address] [place] [address] Errol Powell DPM [address] [facility] [place], [place] [address] 02/03/2025 10:30 AM EDT Office Visit [facility] [address] [place] [address] Blake Larson MD [address] [place] [address] 07/28/2025 9:45 AM EST Office Visit [facility] [address] [place] [address] Sophia Mcmahon MD [address] [place] [address] documented as of this encounter Procedures Procedure Name Priority Date/Time Associated Diagnosis Comments STRESS TEST WITH MYOCARDIAL PERFUSION 08/23/2023 11:23 AM EDT documented in this encounter Results * Stress test with myocardial perfusion (08/23/2023 11:23 AM EDT) Anatomical Region Laterality Modality Heart Other 08/23/2023 11:2 3 AM EDT Narrative 08/24/2023 1:10 PM EDT [facility] Main [place] [id number] Nuclear Medicine Report Signed Patient: Fabian Chamorro MR#: [id number] : 1945 Acct:[id number] Age/Sex: 78 / M ADM Date: 08/22/23 Loc: Room: Type: [facility] Attending Dr: Blake Larson MD [...] Procedure Note Giancarlo Hu MD - 08/24/2023 [facility] Main [place] [address] [place] [address] Nuclear Medicine Report Signed Patient: Fabian Chamorro DMR#: [id number] : 6Acct:[id number] Age/Sex: 78 / MADM Date: 08/22/23 Loc: Room:Type: [facility] Attending Dr: Blake Larson MD [...] previous study available for comparison. Transcribed By: NTS 08/23/23 1356 Dictated By: Giancarlo Hu MD 08/23/23 1123 Signed By: <Electronically signed by MD Giancarlo Hu> 08/24/23 1310 Blake Larson MD CV STRESS PROCEDURES Final Resul t documented in this encounter Visit Diagnoses Not on filedocumented in this encounter Care Teams Termite Renewal Inspector Relationship Specialty Start Date End Date Blake Larson MD [address] [place] [address] PCP - General Family Medicine 07/24/23 Blake Larson MD [address] [place] [address] PCP - ACO Reach 07/18/24 documented as of this encounter
--- OUTSIDE RECORDS SUMMARY | 2025-01-09 06:54 | XMS_ITS | Encounter Summary ---
Author Organization [facility] Address [address] [place] [address] Care Team Providers Care Tutor Coordinator Name Role Phone Blake Larson MD Primary Care Provider [phone] Blake Larson MD Unavailable Encounter Details Date Type Department Care Team (Late st Contact Info) Description 12/09/2024 Abstract [facility] [address] [place] [phone] Blake Larson MD [address] [place] [address] Social History Tobacco Use Types Packs/Day Years [...] 01/22/2024 How often do you attend [facility] or pentecostalism services? Patient declined 01/22/2024 Do you belong to any clubs o r organizations such as denominational groups, unions, fraternal or athletic groups, or [...] Recorded Patient Health Questionnaire-2 Score 0 08/05/2024 [facility] of Occupat ional [facility] - Occupational Stress Questionnaire Answer Date [...] any time in the past 12 m [facility], were you homeless or living in a fci (including now)? No 01/22/2024 Sex and Gender Information Value Date Recorded Sex Assigned at Not on file Legal Sex Male 6:53 PM EDT Gender Identity Not on file Sexual Orientation Not on file documented as of this encounter Plan of Treatment Upcoming Encounters Date Type Department Care Team (Late st Contact Info) Description 01/26/2025 9:15 AM EDT Procedure Visit [facility] [address] [facility] [place] [address] Errol Powell DPM [address] [place] [address] 02/03/2025 10:30 AM EDT Office Visit [facility] [address] [place] [address] Blake Larson MD [address] [place] [address] 07/28/2025 9:45 AM EST Office Visit [facility] [address] [place] [address] Sophia Mcmahon MD [address] [place] [address] documented as of this encounter Visit Diagnoses Not on filedocumented in this encounter Additional Health Concerns Assessment Noted Time PHQ-9 Depression Total Score: 2 08/05/19 25 10:00 AM EST documented as of this encounter Care Teams Tutor Coordinator Relationship Specialty Start Date End Date Blake Larson MD [address] [place] [address] PCP - General Family Medicine 07/24/23 Blake Larson MD [address] [place] [address] PCP - ACO Reach 07/18/24 documented as of this encounter
--- OUTSIDE RECORDS SUMMARY | 2025-01-09 06:54 | XMS_ITS | Encounter Summary ---
Author Organization [facility] Address [address] [place] [address] [place] [address] Care Team Providers Care Proof Coin Collector Name Role Phone Blake Larson MD Primary Care Provider [phone] Blake Larson MD Unavailable Encounter Details Date Type Department Care Team (Late st Contact Info) Description 12/30/2024 Clinisync Result Encounter [facility] External Department Unsolicited Provider, Generic External Data Social History Tobacco Use Types Packs/Day Years [...] often do you attend chur ch or scientology services? Patient declined 01/22/2024 Do you belong to any clubs o r organizations such as restorationism groups, unions, fraternal or athletic groups, or [...] Patient Health Questionnaire-2 Score 0 08/05/2024 [facility] of Occupat ional Health [...] time in the past 12 m [facility], were you homeless or living in a [...] 01/26/2025 9:15 AM EDT Procedure Visit [facility] [address] [place] [address] Errol Powell DPM [address] [place], [place] [address] 02/03/2025 10:30 AM EDT Office Visit [facility] [address] [place] [address] Blake Larson MD [address] [place] [address] 07/28/2025 9:45 AM EST Office Visit [facility] [address] [place] [address] Sophia Mcmahon MD [address] [place] [address] documented as of this encounter Procedures Procedure Name Priority Date/Time Associated Diagnosis Comments CT ABDOMEN/PELVIS WO CONT 12/30/2024 11:06 AM EDT [facility] PROTHROMBIN TIME INR W/O COUM Routine 12/30/2024 10:45 AM EDT [facility] APTT Routine 12/30/2024 10:45 AM EDT ALL CBC WITH AUTO DIFF Routine 12/30/2024 10:45 AM EDT documented in this encounter Results * CT ABDOMEN/PELVIS WO CONT (12/30/2024 11:06 AM EDT) Anatomical Region Laterality Modality Radiographic Radha ging 12/30/2024 11:0 6 AM EDT Narrative 12/30/2024 11:08 [place] [address] CT Scan Report Signed Patient: FABIAN CHAMORRO MR#: [id number] : 1945 Acct:[id number] Age/Sex: 79 / M ADM Date: 12/30/24 Loc: CT Attending Dr: Jonnie Jensen M.D. Ordering Physician: Jonnie Jensen M.D. Date of Service: 12/30/24 Procedure(s): CT abdomen pelvis wo con Accession Number(s): [id number] cc: Blake Larson M.D. [place] [address] Patient Name: FABIAN CHAMORRO MRN: [id number] date: 1945 Sex: M Assigned Patient Location: CT Current Patient Location: [facility] Accession/Order Number: [id number] Exam Date: 12/30/2024 11:04 Report Date: 12/30/2024 11:06 At the request of: JONNIE JENSEN MD Procedure: CT abdomen pelvis wo con CT ABDOMEN AND PELVIS WITHOUT INTRAVENOUS CONTRAST: CLINICAL HISTORY: Kidney Stone, Gross Hematuria COMPARISON: None TECHNIQUE: Spiral images were obtained through the abdomen and pelvis without intravenous contrast. This CT exam was performed using one or more following dose reduction techniques: Automated exposure control, adjustment of the mA and/or kV according to patient size, or use of iterative reconstruction technique. FINDINGS: Lung Bases: [Bibasilar atelectasis] Organs:Suboptimal evaluation due to lack of IV contrast. Liver gallbladder pancreas spleen and adrenal glands all appear unremarkable. 4 mm stone right kidney. Multiple stones are seen involving the left kidney largest measuring 1.3 cm in greatest axial dimension. No obstructive uropathy. Abdominal aorta appears normal in caliber.[ GI: Stomach is grossly unremarkable. Small bowel appears nondilated. 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 Urinary bladder is grossly remarkable.] Peritoneum/Retroperitoneum:No free air or free fluid or lymphadenopathy.[ Abd wall/Bones:Abdominal wall demonstrate no acute findings. Osseous structures demonstrate degenerative change.[ CT/CT abdomen pelvis wo con IMPRESSION: Bilateral nephrolithiasis largest stone measuring 1.3 cm involving the left kidney. No obstructive uropathy. Impression dictated by: Myrtle Turner Jr.ORowena 12/30/2024 11:06 AM Dictation Location: [place] [address] Electronically authenticated by: [id number] Y Date: 12/30/2024 11:06 Dictated By: Ritchie Cabrera M.D. Signed By: 12/30/24 1108 DD/ 05 TD/TT: Event Sales Assistant: Procedure Note Radiology, Radiologist, MD - 12/30/2024 [place] [address] CT Scan Report Signed Patient: FABIAN CHAMORRO DMR#: [id number] : 1945cct:[id number] Age/Sex: 79 / MADM Date: 12/30/24 Loc: CT Attending Dr: Jonnie Jensen M.D. Ordering Physician: Jonnie Jensen M.D. Date of Service: 12/30/24 Procedure(s): CT abdomen pelvis wo con Accession Number(s): [id number] cc: Blake Larson M.D. The [place] [address] Patient Name: FABIAN CHAMORRO MRN: [id number] date: 1945 Sex: M Assigned Patient Location: CT Current Patient Location: [facility] Accession/Order Number: [id number] Exam Date: 12/30/2024 11:04 Report Date: 12/30/2024 11:06 At the request of: JONNIE JESNEN MD Procedure: CT abdomen pelvis wo con CT ABDOMEN AND PELVIS WITHOUT INTRAVENOUS CONTRAST: CLINICAL HISTORY: Kidney Stone, Gross Hematuria COMPARISON: None TECHNIQUE: Spiral images were obtained through the abdomen and pelviswithout intravenous contrast. This CT exam was performed using one or morefollowing dose reduction techniques: Automated exposure control, adjustment of themA and/or kV according to patient size, or use of iterative reconstruction technique. FINDINGS: Lung Bases: [Bibasilar atelectasis] Organs:Suboptimal evaluation due to lack of IV contrast. Livergallbladder pancreas spleen and adrenal glands all appear unremarkable. 4 mm stoneright kidney. Multiple stones are seen involving the left kidney largestmeasuring 1.3 cm in greatest axial dimension. No obstructive uropathy. Abdominalaorta appears normal in caliber.[ GI: Stomach is grossly unremarkable. Small bowel appears nondilated. 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 Osseous structures demonstrate degenerative change.[ CT/CT abdomen pelvis wo con IMPRESSION: Bilateral nephrolithiasis largest stone measuring 1.3 cm involving theleft kidney. No obstructive uropathy. Impression dictated by: Ritchie Cabrera Jr., Saundra 12/30/2024 11:06 AM Dictation Location: [place] [address] Electronically authenticated by: [id number] Y Date: 1:06 Dictated By: Ritchie Cabrera M.D. Signed By:12/30/24 1108 DD/ 1106 TD/TT: Event Sales Assistant: Generic External Data Provider IMG XR PROCEDURES Final Result * [facility] APTT (12/30/2024 10:45 AM EDT) PARTIAL THROMBOPLASTIN TIME 27.9 22.3 - 36.2 sec TB 12/30/2024 10:4 5 AM EDT 12/30/2024 10:47 AM EDT Narrative [facility] - 12/30/2024 11:35 AM EDT Generic External Data Provider EZIONC F inal Result [facility] * [facility] PROTHROMBIN TIME INR W/O COUM (12/30/2024 10:45 AM EDT) Pathologist [facility] PROTHROMBIN TIME 10.7 9.0 - 11.6 sec [facility] INR 1.01 [facility] Comment: DESIRED INR: 2.0-3.0 CONDITIONS NOT LISTED BELOW 2.5-3.5 FOR PROSTHETIC HEART VALVE REPLACEMENT 2.5-3.5 RECURRENT THROMBOSIS 12/30/2024 10:4 5 AM EDT 12/30/2024 10:47 AM EDT Narrative CLINISYNC - 12/30/2024 11:35 AM EDT Generic External Data Provider CLINISYNC F inal Result [facility] * (ABNORMAL) ALL CBC WITH AUTO DIFF (12/30/2024 10:45 AM EDT) Pathologist [facility] TB WBC 5.5 4.0 - 11.0 10 3/uL TB TB RBC 3.41(L) 4.70 - 6.10 10 6/uL TBH TB HGB 11.3(L) 14.0 - 18.0 g/dL TB TB HCT 32.6(L) 42.0 - 54.0 % TB TB MCV 95.6(H) 80.0 - 94.0 fL TB TB MCH 33.1 25.9 - 34.0 pg TBH TB MCHC 34.7 29.9 - 35.2 g/dL TB TB RDW 14.0 11.0 - 15.0 % TB TB PLT 119(L) 150 - 450 10 3/uL TB TB MPV 8.6(L) 9.5 - 13.5 fL TB NEUTROPHILS PERCENT AUTO 68.2 43.0 - 75.0 % TBH LYMPHOCYTES PERCENT AUTO 17.8(L) 20.5 - 60.0 % TBH MONOCYTES PERCENT AUTO 7.3 1.7 - 12.0 % TBH TBH EO % 5.8 0.9 - 7.0 % TBH BASOPHILS PERCENT AUTO 0.5 0.2 - 2.0 % TBH IMMATURE GRANULOCYTES PCT AUTO 0.4 0.0 - 0.5 % TBH NEUTROPHILS ABSOLUTE AUTO 3.8 1.4 - 6.5 10 3/uL TBH LYMPHOCYTES ABSOLUTE AUTO 1.0(L) 1.2 - 3.8 10 3/uL TBH MONOCYTES ABSOLUTE AUTO 0.4 0.3 - 0.8 10 3/uL TBH TBH EO # 0.3 0.0 - 0.7 10 3/uL TBH BASOPHILS ABSOLUTE AUTO 0.0 0.0 - 0.1 10 3/uL TBH IMMATURE GRANULOCYTES ABS AUTO 0.02 0.00 - 0.03 10 3/uL TBH 12/30/2024 10:4 5 AM EDT 12/30/2024 10:47 AM EDT Narrative [facility]IN[facility] - 12/30/2024 11:16 AM EDT us Generic External Data Provider CLINISYNC F inal Result Performing Organization Address City/State/[facility] Co de Phone Number [facility] documented in this encounter Visit Diagnoses Not on filedocumented in this encounter Additional Health Concerns Assessment Noted Time PHQ-9 Depression Total Score: 2 08/05/19 25 10:00 AM EST documented as of this encounter Care Teams Proof Coin Collector Relationship Specialty Start Date End Date Blake Larson MD [address] [place] [address] PCP - General Family Medicine 07/24/23 Blake Larson MD [address] [place] [address] PCP - ACO Reach 07/18/24 documented as of this encounter
--- OUTSIDE RECORDS SUMMARY | 2025-01-09 06:54 | XMS_ITS | Encounter Summary ---
Author Organization [facility] Address [address] [place] [address] Care Team Providers Care Seismic Survey Assistant Name Role Phone Blake Larson MD Primary Care Provider [phone] Blake Larson MD Unavailable Encounter Details Date Type Department Care Team (Late st Contact Info) Description 12/08/2024 Abstract [facility] [address] [place] [phone] Blake Larson MD [address] [place] [address] Social History Tobacco Use Types Packs/Day Years [...] do you attend [facility] or mormon services? Patient declined 01/22/2024 Do you belong to any clubs o r organizations such as samaritan groups, unions, fraternal or athletic groups, or [...] Recorded Patient Health Questionnaire-2 Score 0 08/05/2024 [facility] of Occupat ional [facility] - Occupational Stress Questionnaire Answer Date Recorded [...] any time in the past 12 m [facility], were you homeless or living in a custodial (including now)? No 01/22/2024 Sex and Gender [...] Visit [facility] [address] [place] [address] Errol Powell DPM [address] [place] [address] 02/03/2025 10:30 AM EDT Office Visit [facility] [address] [place] [address] Blake Larson MD [address] [place] [address] 07/28/2025 9:45 AM EST Office Visit [facility] [address] [place] [address] Sophia Mcmahon MD [address] [place] [address] documented as of this encounter Visit Diagnoses Not on filedocumented in this encounter Additional Health Concerns Assessment Noted Time PHQ-9 Depression Total Score: 2 08/05/19 25 10:00 AM EST documented as of this encounter Care Teams Seismic Survey Assistant Relationship Specialty Start Date End Date Blake Larson MD [address] [place] [address] PCP - General Family Medicine 07/24/23 Blake Larson MD [address] [place] [address] PCP - ACO Reach 07/18/24 documented as of this encounter
--- OUTSIDE RECORDS SUMMARY | 2025-01-09 06:54 | XMS_ITS | Clinical Summary ---
Author Organization [facility] Address [address], [address] [place] [address] Care Team Providers Care Lab Intern Name Role Phone Unavailable Primary Care Provider [...]
--- OUTSIDE RECORDS SUMMARY | 2025-01-09 06:54 | XMS_ITS | Encounter Summary ---
Author Organization [facility] Address [address] [place] [address] Care Team Providers Care Web Portal Developer Name Role Phone Blake Larson MD Primary Care Provider [phone] Blake Larson MD Unavailable Encounter Details Date [...] often do you attend chur ch or oriental orthodox services? Patient declined 01/22/2024 Do you belong to any clubs o r organizations such as bahai groups, unions, fraternal or athletic groups, or [...] Recorded Patient Health Questionnaire-2 Score 0 08/05/2024 [facility] of Occupat ional Health - Occupational Stress [...] any time in the past 12 m [facility], were you homeless or living in a longterm (including now)? No 01/22/2024 Sex and Gender Information Value Date Recorded Sex Assigned at Not on file Legal Sex Male 6:53 PM EDT Gender Identity Not on file Sexual Orientation Not on file documented as of this encounter Plan of Treatment Upcoming Encounters Date Type Department Care Team (Late st Contact Info) Description 01/26/2025 9:15 AM EDT Procedure Visit [facility] [address] [facility] [place] [address] Errol Powell DPM [address] [place], [place] [address] 02/03/2025 10:30 AM EDT Office Visit [facility] [address] [place] [address] Blake Larson MD [address] [place] [address] 07/28/2025 9:45 AM EST Office Visit [facility] [address] [place] [address] Sophia Mcmahon MD [address] [place] [address] documented as of this encounter Procedures Procedure Name Priority Date/Time Associated Diagnosis Comments ALL BASIC METABOLIC PANEL Routine 12/30/2024 10:45 AM EDT documented in this encounter Results * (ABNORMAL) ALL BASIC METABOLIC PANEL (12/30/2024 10:45 AM EDT) SODIUM 139 136 - 145 mmol/L TBH POTASSIUM 5.3(H) 3.5 - 5.1 mmol/L TBH CHLORIDE 102 98 - 107 mmol/L TBH CARBON DIOXIDE 30.3 21.0 - 32.0 mmol/L TBH ANION GAP 12.0 TBH GLUCOSE 168(H) 74 - 106 mg/dL TBH BLOOD UREA NITROGEN 20.0(H) 7.0 - 18.0 mg/dL TBH CREATININE 0.73 0.70 - 1.30 mg/dL TBH TBH EGFR-AF BRAZILIAN >60 >=60 mL/min/1.7 3m 2 TBH TBH EGFR-NON AF BRAZILIAN >60 >=60 mL/min/1.7 3m 2 TBH BUN CREATININE RATIO 27.4 TBH CALCIUM 9.6 8.5 - 10.1 mg/dL TBH 12/30/2024 10:4 5 AM EDT 12/30/2024 10:47 AM EDT Narrative CLINISYNC - 12/30/2024 11:01 AM EDT us Generic External Data Provider CLINISYNC F inal Result Performing Organization Address City/State/[facility] Co de Phone Number [facility] documented in this encounter Visit Diagnoses Not on filedocumented in this encounter Additional Health Concerns Assessment Noted Time PHQ-9 Depression Total Score: 2 08/05/19 25 10:00 AM EST documented as of this encounter Care Teams Web Portal Developer Relationship Specialty Start Date End Date Blake Larson MD [address] [place] [address] PCP - General Family Medicine 07/24/23 Blake Larson MD [address] [place] [address] PCP - ACO Reach 07/18/24 documented as of this encounter
--- OUTSIDE RECORDS SUMMARY | 2025-01-09 06:54 | XMS_ITS | Encounter Summary ---
Author Organization [facility] Address [address] [place] [address] Care Team Providers Care Centerless Grinding Machine Adjuster Name Role Phone Blake Larson MD Primary Care Provider [phone] Blake Larson MD Unavailable Reason for Visit * Reason Comments Med Refill Encounter Details Date Type Department Care Team (Late st Contact Info) Description 09/11/2024 Refill [facility] [address] [address] Blake Larson MD [address] [place] [address] Type 2 diabetes mellitus with hyperglycemia, with [...] often do you attend chur ch or church services? Patient declined 01/22/2024 Do you belong [...] Recorded Patient Health Questionnaire-2 Score 0 08/05/2024 [facility] - Occupational Stress Questionnaire Answer Date [...] any time in the past 12 m [facility], were you homeless or living in a snf (including now)? No 01/22/2024 Sex and Gender Information Value Date Recorded Sex Assigned at Not on file Legal Sex Male 6:53 PM EDT Gender Identity Not on file Sexual Orientation Not on file documented as of this encounter Miscellaneous Notes * Telephone Encounter - ANNI CARPIO - 09/11/2024 11:49 AM EDT MEDICATION SENT TO [facility] documented in this encounter Plan of Treatment Upcoming Encounters Date Type Department Care Team (Late st Contact Info) Description 01/26/2025 9:15 AM EDT Procedure Visit [facility] [address] [place] [phone] Errol Powell DPM [address] [place] [address] 02/03/2025 10:30 AM EDT Office Visit [facility] [address] [place] [address] Blake Larson MD [address] [place] [address] 07/28/2025 9:45 AM EST Office Visit [facility] [place] [facility] [address] [place] [address] Sophia Mcmahon MD [address] [place] [address] documented as of this encounter Visit Diagnoses Diagnosis Type 2 diabetes mellitus with hyperglycemia, with long-term current use of insulin (HCC) documented in this encounter Additional Health Concerns Assessment Noted Time PHQ-9 Depression Total Score: 2 08/05/19 25 10:00 AM EST documented as of this encounter Care Teams Centerless Grinding Machine Adjuster Relationship Specialty Start Date End Date Blake Larson MD [address] [place] [address] PCP - General Family Medicine 07/24/23 Blake Larson MD [address] [place] [address] PCP - ACO Reach 07/18/24 documented as of this encounter
--- OUTSIDE RECORDS SUMMARY | 2025-01-09 06:54 | XMS_ITS | Encounter Summary ---
Author Organization [facility] Address [address] [place] [address] [place] [address] Care Team Providers Care Associate Professor Of Literacy Name Role Phone Blake Larson MD Primary Care Provider [phone] Blake Larson MD Unavailable Encounter Details Date Type Department Care Team (Late Contact Info) Description 08/22/2023 External Result Encounter [facility] External Department Unsolicited Blake Larson MD [address] [place] [phone] Social History Tobacco Use Types Packs/Day Years [...] [facility] [address] [place] [phone] Errol Powell DPM [address] [place], [place] [address] 02/03/2025 10:30 AM EDT Office Visit [facility] [address] [place] [address] Blake Larson MD [address] [place] [address] 07/28/2025 9:45 AM EST Office Visit [facility] [address] [place] [address] Sophia Mcmahon MD [address] [place] [address] documented as of this encounter Procedures Procedure Name Priority Date/Time Associated Diagnosis Comments STRESS TEST ONLY, REGADENOSON 08/22/2023 5:29 PM EDT documented in this encounter Results * Stress test only, Regadenoson (08/22/2023 5:29 PM EDT) Anatomical Region Laterality Modality Other 08/22/2023 5:29 PM EDT Narrative 08/24/2023 1:10 PM EDT [facility] Main [address] [address] Cardiac Stress Test Signed Patient: Fabian Chamorro MR#: [id number] : 1945 Acct:[id number] Age/Sex: 78 / M ADM Date: 08/22/23 Loc: Room: Type: [facility] Attending Dr: Blake Larson MD Copies to: [...] study will be dictated separately. Transcribed By: NTS 08/23/23 1349 Dictated By: Giancarlo Hu MD 08/22/23 1729 Signed By: <Electronically signed by MD Giancarlo Hu> 08/24/23 1310 Procedure Note Giancarlo Hu MD - 08/24/2023 [facility] [place] [address] [place] [address] Cardiac Stress Test Signed Patient: Fabian Chamorro DMR#: [id number] : 6Acct:[id number] Age/Sex: 78 / MADM Date: 08/22/23 Loc: Room:Type: [facility] Attending Dr: Blake Larson MD Copies to: [...] study will be dictated separately. Transcribed By: NTS 08/23/23 1349 Dictated By: Giancarlo Hu MD 08/22/23 1729 Signed By: <Electronically signed by MD Giancarlo Hu> 08/24/23 1310 Blake Larson MD CV STRESS PROCEDURES Final Resul t documented in this encounter Visit Diagnoses Not on filedocumented in this encounter Care Teams Associate Professor Of Literacy Relationship Specialty Start Date End Date Blake Larson MD [address] [place] [address] PCP - General Family Medicine 07/24/23 Blake Larson MD [address] [place] [address] PCP - ACO Reach 07/18/24 documented as of this encounter
--- OUTSIDE RECORDS SUMMARY | 2025-01-09 06:54 | XMS_ITS | Encounter Summary ---
Author Organization [facility] Address [address] [place] [address] Care Team Providers Care Metal Fabricating Inspector Name Role Phone Blake Larson MD Primary Care Provider [phone] Blake Larson MD Unavailable Encounter Details Date [...] any clubs o r organizations such as sikhism groups, unions, fraternal or athletic groups, or [...] Recorded Patient Health Questionnaire-2 Score 0 08/05/2024 [employer] [facility] - Occupational Stress [...] any time in the past 12 m [facility], were you homeless or living in a [...] Visit [facility] [address] [place] [place] [address] Errol Powell DPM [address] [place], [place] [phone] 02/03/2025 10:30 AM EDT Office Visit [facility] [address] [place] [address] Blake Larson MD [address] [place] [address] 07/28/2025 9:45 AM EST Office Visit [facility] [address] [place] [address] Sophia Mcmahon MD [address] [place] [address] documented as of this encounter Procedures Procedure Name Priority Date/Time Associated Diagnosis Comments ECG 12-LEAD 12/30/2024 8:41 AM EDT documented in this encounter Results * ECG 12-LEAD (12/30/2024 8:41 AM EDT) Anatomical Region Laterality Modality Other 12/30/2024 8:41 AM EDT Narrative 12/31/2024 7:01 AM EDT The [address] [address] Electrocardiograph Report Signed Patient: FABIAN CHAMORRO MR#: [id number] : 1945 Acct:[id number] Age/Sex: 79 / M ADM Date: 12/30/24 Loc: CT Attending Dr: Jonnie Jensen M.D. Ordering Physician: Jonnie Jensen M.D. 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 Measurements Intervals [place] Rate: 78 P: 26 ID: [id number] QRS: -24 QRSD: 87 T: 91 QT: 359 QTc: 411 Interpretive Statements SINUS RHYTHM BORDERLINE LEFT AXIS DEVIATION [QRS AXIS < -20] NONSPECIFIC T-WAVE ABNORMALITY Compared to ECG 08/29/2017 10:21:07 T-wave abnormality now present Myocardial infarct finding no longer present Electronically Signed On 12-31-2024 7:01:15 EDT by CASSANDRA JOSE M.D. Dictated By: CASSANDRA JOSE Signed By: 12/31/24 0701 DD/ 0841 TD/TT: Auto Body Repair Technician: Procedure Note Radiology, Radiologist, MD - 12/31/[address] [address] Electrocardiograph Report Signed Patient: FABIAN CHAMORRO DMR#: [id number] : 1945cct:[id number] Age/Sex: 79 / MADM Date: 12/30/24 Loc: CT Attending Dr: Jonnie Jensen M.D. Ordering Physician: Jonnie Jensen M.D. 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 Measurements Intervals [place] Rate: 78 P: 26 ID: [id number] QRS: -24 QRSD: 87 T: 91 QT: 359 QTc: 411 Interpretive Statements SINUS RHYTHM BORDERLINE LEFT AXIS DEVIATION [QRS AXIS < -20] NONSPECIFIC T-WAVE ABNORMALITY Compared to ECG 08/29/2017 10:21:07 T-wave abnormality now present Myocardial infarct finding no longer present Electronically Signed On 12-31-2024 7:01:15 EDT by CASSANDRA JOSE M.D. Dictated By: CASSANDRA JOSE Signed By:12/31/24 0701 DD/ 0841 TD/TT: Auto Body Repair Technician: Generic External Data Provider [facility] Final Result documented in this encounter Visit Diagnoses Not on filedocumented in this encounter Additional Health Concerns Assessment Noted Time PHQ-9 Depression Total Score: 2 08/05/19 10:00 AM EST documented as of this encounter Care Teams Metal Fabricating Inspector Relationship Specialty Start Date End Date Blake Larson MD [address] [place] [address] PCP - General Family Medicine 07/24/23 Blake Larson MD [address] [place] [address] PCP - ACO Reach 07/18/24 documented as of this encounter
--- OUTSIDE RECORDS SUMMARY | 2025-01-09 06:54 | XMS_ITS | Clinical Summary ---
Author Organization [facility] Address [address] [place] [address] Care Team Providers Care Electric Organ Inspector And Repairer Name Role Phone DavenportAlejandro Florecita GAN Primary [...] N ot on file 07/08/2022 Data from: [email or web address] Last address used for calculation [address] [...] Diabetes Screening 08/29/2020 08/29/2017, 0 08/29/2017, 08/29/2017 Advance Directive Discussion 06/11/2024 Influenza Vaccine (#1) 2025 Insurance [facility] MEDIC[facility] Care Teams Electric Organ Inspector And Repairer Relationship Specialty Start Date End Date Alejandro Davenport DO PCP - General Family Medicine 10/02/13
--- OUTSIDE RECORDS SUMMARY | 2025-01-09 06:54 | XMS_ITS | Encounter Summary ---
Author Organization [facility] Address [address] [place] [address] Care Team Providers Care Glaze Grinder Name Role Phone Blake Larson MD Primary Care Provider [phone] Blake Larson MD Primary Care Provider [phone] Blake Larson MD Unavailable Encounter Details Date Type Department Care Team (Late st Contact Info) Description 12/24/2022 Abstract [facility] [address] [place] [address] Errol Powell DPM [address] [place] [address] Social History Tobacco Use Types Packs/Day Years [...] Procedure Visit [facility] [address] [place] [address] Errol Powell DPM [address] [place] [address] 02/03/2025 10:30 AM EDT Office Visit [facility] [address] [place] [address] Blake Larson MD [address] [place] [address] 07/28/2025 9:45 AM EST Office Visit [facility] [place] [facility] [address] [place] [address] Sophia Mcmahon MD [address] [place] [address] documented as of this encounter Visit Diagnoses Not on filedocumented in this encounter Care Teams Glaze Grinder Relationship Specialty Start Date End Date Blake Larson MD PCP - General Family Medicine 12/21/22 07/23/23 Blake Larson MD [address] [place] [address] PCP - General Family Medicine 07/24/23 Blake Larson MD [address] [place] [address] PCP - ACO Reach 07/18/24 documented as of this encounter
--- OUTSIDE RECORDS SUMMARY | 2025-01-09 06:54 | XMS_ITS | Clinical Summary ---
Author Organization [facility] Healthcare Address [address] [place] [address] Care Team Providers Care Business Editor Name Role Phone Blake Larson MD Primary Care Provider [phone] Blake Larson MD Unavailable Allergies No known [...] Multiple Vitamins-Minera ls (PreserVision AREDS) tablet Active Blood Glucose Monitoring Suppl (True Metrix [...] the skin at bedtime 01/28/20 24 Active semaglutide (Ozempic, 1 MG/DOSE,) 4 MG/3ML solution pen-injectorInd ications:Type 2 diabetes mellitus with hyperglycemia, with long-term current use of insulin ([facility]) Inject 1 mg under the skin 1 (one) time per week 3 each 07/03/19 Active insulin glargine (Lantus) 100 UNIT/ML injectionIndica tions:Type 2 diabetes mellitus with hyperglycemia, with long-term current use of insulin ([facility]) Inject 45 Units under the skin at bedtime 45 mL 07/03/19 25 Active allopurinol (Zyloprim) 300 MG tabletIndicatio ns:History of renal calculi Take 1 tablet (300 mg) by mouth Daily 90 tablet 07/03/19 25 Active metFORMIN (Glucophage) 1000 MG tabletIndicatio ns:Type 2 diabetes mellitus with hyperglycemia, with long-term current use of insulin ([facility]),Hyperchol esterolemia,Bhavya vated PSA,Dyslipidemi a Take 1 tablet (1,000 mg) by mouth in the morning and 1 tablet (1,000 mg) in the evening. Take with meals. 180 tablet 07/03/19 026 Active lisinopril 20 MG tabletIndicatio ns:Type 2 diabetes mellitus with hyperglycemia, with long-term current use of insulin ([facility]),Hyperchol esterolemia,Bhavya vated PSA,Dyslipidemi a Take 1 tablet (20 mg) by mouth 1 (one) time each day at the same time 90 tablet 07/03/19 026 Active metoprolol succinate XL (Toprol-XL) 50 MG 24 hr tabletIndicatio ns:Type 2 diabetes mellitus with hyperglycemia, with long-term current use of insulin ([facility]),Hyperchol esterolemia,Bhavya vated PSA,Dyslipidemi a Take 1 tablet (50 mg) by mouth Daily 90 tablet 07/03/19 25 026 Active rosuvastatin (Crestor) 10 MG tabletIndicatio ns:Type 2 diabetes mellitus with hyperglycemia, with long-term current use of insulin ([facility]),Hyperchol esterolemia,Bhavya vated PSA,Dyslipidemi a Take 1 tablet (10 mg) by mouth in the morning. 90 tablet 3 07/03/19 25 026 Active Magnesium Oxide, Elemental, 400 MG tabletIndicatio [...] needed 100 each 3 12/05/19 25 Active aspirin 81 MG EC tablet 1 (one) time each day at the same time 025 Discontinued cephalexin (Keflex) 500 MG capsuleIndicati ons:History of total shoulder replacement, unspecified laterality Take 4 pills 30-60 mins before dental appointment with food 4 capsule 3 03/25/20 24 025 Discontinued tamsulosin (Flomax) 0.4 MG 24 hr capsuleIndicati ons:Prostate cancer (HCC) Take 1 capsule (0.4 mg) by mouth Daily 90 capsule 3 07/03/19 25 025 Discontinued hydrOXYzine HCl (Atarax) 25 MG tabletIndicatio ns:Pruritus Take 1 tablet (25 mg) by mouth 4 (four) times a day as needed for itching 60 tablet 3 08/05/19 25 025 Discontinued Active Problems Problem Noted Date Diagnosed Date Gross hematuria 01/02/2025 Preoperative clearance 01/02/2025 Assessment & Plan (01/02/2025 12:55 PM EDT): Stress test ordered. If negative will be able to proceed with surgery at low risk for complications. DM and HTN controlled with medication. No history of CAD. Labs show low platelets but stable since at least 2017, likely related to daily aspirin. Patient will be able to hold aspirin for 7 days prior to surgery. Other chest pain 01/02/2025 Assessment & Plan (01/02/2025 12:54 PM EDT): Increased discomfort and fatigue. Likely related to dehydration and muscular but patient with risk factors for CAD. Check lexiscan cardiolyte stress test. Thrombocytopenia 01/02/2025 Assessment & Plan (01/02/2025 12:56 PM EDT): Mild and stable since 2018. Likely related to aspirin. Abnormal EKG 01/02/2025 Assessment & Plan (01/02/2025 12:53 PM EDT): EKG with T changes but present on EKG in 2023 prior to stress test. Likely benign. Type 2 diabetes mellitus wit h diabetic [...] use of insulin 08/01/2023 Assessment & Plan (01/02/2025 12:56 PM EDT): BS stable and check BS TID. Stick to ADA diet and limit carbs. Assessment & Plan (06/20/2024 10:05 AM EST): [...] Benign essential hypertension 12/25/2022 Assessment & Plan (01/02/2025 12:52 PM EDT): BP controlled and monitor PRN. Assessment & Plan (01/28/2024 9:51 AM EDT): BP controlled and monitor PRN. Assessment & Plan (08/01/2023 2:22 PM EST): BP controlled and monitor PRN. Renal calculi 12/25/2022 Assessment & Plan (01/02/2025 12:55 PM EDT): Follow with urology for removal. Presence of right artificial shoulder joint 12/09 Localized, primary osteoarthritis of hand 2022 Rupture of right rotator cuff 12/25/2022 Tear of medial meniscus of knee 12/25/2022 Overview (12/25/2022): LEFT KNEE TIA (transient ischemic attack) 12/25/2022 Reactive lymphadenopathy 05/04/2020 Iris nevus, left 06/18/2018 Resolved Problems Problem Noted Date [...] stress test. Will refer to cardiology in [place] after obtain results. If pain worsens go to ER. BPH with urinary obstruction 12/25/2022 08/01/2023 Nocturia 12/25/2022 08/05/2024 Pressure ulcer of left heel, stage 2 12/25/2022 08/01/2023 Prostate cancer 12/25/2022 01/28/2024 Type 2 diabetes mellitus with foot ulcer 12/25/2022 08/01/2023 Encounters Date Type Department Care Team Description 01/08/2025 Telephone [facility] [address] [place] [address] Blake Larson MD 01/06/2025 Orders Only [facility] [address] [place] [address] Jonnie Jensen MD 01/02/2025 11:45 AM EDT Office Visit [facility] [address] [place] [address] Blake Larson MD Preoperative clearance (Primary Dx); Other chest pain; Abnormal EKG; Renal calculi; Thrombocytopenia; Type 2 diabetes mellitus with hyperglycemia, with long-term current use of insulin (HCC); Benign essential hypertension 01/02/2025 Bamboo flowsheet [facility] [address] [place] [address] Blake Larson MD 12/30/2024 Clinisync Result Encounter [facility] External [facility] Unsolicited Provider, Generic External Data 12/30/2024 Clinisync Result Encounter [facility] External Department Unsolicited Provider, Generic External Data 12/30/2024 Clinisync Result Encounter [facility] External Department Unsolicited Provider, Generic External Data 12/09/2024 [facility] [address] [place] [address] Blake Larson MD 12/09/2024 [facility] [address] [place] [address] Blake Larson MD 12/08/2024 [facility] [address] [place] [address] Blake Larson MD 12/04/2024 [facility] [address] [place] [phone] Blake Larson MD Type 2 diabetes mellitus with hyperglycemia, with long-term current use of insulin ([facility]) 10/20/2024 11:15 AM EDT Office Visit [facility] [address] [place] [address] Jaycob Ferguson DO Left elbow pain (Primary Dx) 10/20/2024 8:05 AM EDT Ancillary Procedure [facility] [address] [place] [address] 10/20/2024 Travel 10/13/2024 9:15 AM EDT [facility] [address] [place] [address] Errol Powell DPM Dermatophytosis of nail (Primary Dx); Dystrophic nail; Diabetic polyneuropathy associated with type 2 diabetes mellitus (HCC); Encounter for long-term (current) use of insulin ([facility]) 10/13/2024 [facility] [address] [place] [phone] Errol Powell DPM 10/13/2024 Travel 10/10/2024 Travel [...] week 01/22/2024 How often do you attend [facility] or oriental orthodox services? Patient declined 01/22/2024 Do you belong to any clubs o r organizations such as christianity groups, unions, fraternal or athletic groups, or [...] Recorded Patient Health Questionnaire-2 Score 0 08/05/2024 [facility] of Occupat ional [facility] - Occupational Stress Questionnaire Answer [...] any time in the past 12 m [facility], were you homeless or living in a half-way (including now)? No 01/22/2024 Sex and Gender [...] Mass Index 25.16 01/02/2025 11:48 AM EDT Plan of Treatment Upcoming Encounters Date Type Department Care Team (Late st Contact Info) Description 01/26/2025 9:15 AM EDT Procedure Visit [facility] [address] [place] [phone] Errol Powell DPM [address] [facility] [place] [address] 02/03/2025 10:30 AM EDT Office Visit [facility] [address] [place] [phone] Blake Larson MD [address] [place] [address] 07/28/2025 9:45 AM EST Office Visit [facility] [place] [facility] [address] [place] [address] Sophia Mcmahon MD [address] [place] [address] Health Maintenance Due Date Last Done Comments [...] SCANNED LABS Routine 01/06/2025 1:[address] ABDOMEN/PELVIS WO CONT 12/30/2024 11:06 AM EDT [facility] APTT Routine 12/30/2024 10:45 AM EDT [facility] PROTHROMBIN TIME INR W/O COUM Routine 12/30/2024 10:45 AM EDT ALL CBC WITH AUTO DIFF Routine 12/30/2024 10:45 AM EDT ALL BASIC METABOLIC PANEL Routine 12/30/2024 10:45 AM EDT ECG 12-LEAD 12/30/2024 8:41 AM EDT XR ELBOW 3+ VIEWS LEFT Routine 10/20/2024 8:04 AM EDT Left elbow pain MICROALBUMIN / CREATININE URINE RATIO Routine 08/06/2024 2:02 PM EST HEMOGLOBIN A1C WITH EAG Routine 08/06/2024 2:01 PM EST from Last 3 Months or Most Recently Relevant to Health Maintenance Results * SCANNED LABS (01/06/2025 1:17 PM EDT) us Jonnie Jensen MD LAB CHG PERFORMABLES Final R esult * CT ABDOMEN/PELVIS WO CONT (12/30/2024 11:06 AM EDT) Anatomical Region Laterality Modality Radiographic Radha ging 12/30/2024 11:0 6 AM EDT Narrative 12/30/2024 11:08 [place] [address] CT Scan Report Signed Patient: FABIAN CHAMORRO MR#: [id number] : 1945 Acct:[id number] Age/Sex: 79 / M ADM Date: 12/30/24 Loc: CT Attending Dr: Jonnie Jensen M.D. Ordering Physician: Jonnie Jensen M.D. Date of Service: 12/30/24 Procedure(s): CT abdomen pelvis wo con Accession Number(s): [id number] cc: Blake Larson M.D. [place] [id number] Patient Name: FABIAN CHAMORRO MRN: [id number] date: 1945 Sex: M Assigned Patient Location: CT Current Patient Location: SURGOUT Accession/Order Number: [id number] Exam Date: 12/30/2024 11:04 Report Date: 12/30/2024 [...] uropathy. Impression dictated by: Ritchie Cabrera Jr., DRowenaORowena 12/30/2024 11:06 AM Dictation Location: [place] [address] Electronically authenticated by: [id number] Y Date: 12/30/2024 11:06 Dictated By: Ritchie Cabrera M.D. Signed By: 12/30/24 1108 DD/ 1106 TD/TT: Lever Operator: Procedure Note Radiology, Radiologist, MD - 12/30/2024 [place] [address] CT Scan Report Signed Patient: FABIAN CHAMORRO DMR#: [id number] : 1945cct:[id number] Age/Sex: 79 / MADM Date: 12/30/24 Loc: CT Attending Dr: Jonnie Jensen M.D. Ordering Physician: Jonnie Jensen M.D. Date of Service: 12/30/24 Procedure(s): CT abdomen pelvis wo con Accession Number(s): [id number] cc: Blake Larson M.D. The [address] [address] Patient Name: FABIAN CHAMORRO MRN: [facility]:[id number] date: 1945 Sex: M Assigned Patient Location: CT Current Patient Location: [facility] Accession/Order Number: [id number] Exam Date: 12/30/2024 11:04 Report Date: 12/30/2024 [...] uropathy. Impression dictated by: Ritchie Cabrera Jr., DNunu 12/30/2024 11:06 AM Dictation Location: [place] [address] Electronically authenticated by: [id number] Y Date: 1:06 Dictated By: Ritchie Cabrera M.D. Signed By:12/30/24 1108 DD/ 1106 TD/TT: Lever Operator: us Generic External Data Provider IMG XR PROCEDURES Final Result * [facility] PROTHROMBIN TIME INR W/O COUM (12/30/2024 10:45 AM EDT) PROTHROMBIN TIME 10.7 9.0 - 11.6 sec [facility] TB INR 1.01 TB Comment: DESIRED INR: 2.0-3.0 CONDITIONS NOT LISTED BELOW 2.5-3.5 FOR PROSTHETIC HEART VALVE REPLACEMENT 2.5-3.5 RECURRENT THROMBOSIS 12/30/2024 10:4 5 AM EDT 12/30/2024 10:47 AM EDT Narrative [facility] - 12/30/2024 11:35 AM EDT Generic External Data Provider [facility] F inal Result [facility] * [facility] APTT (12/30/2024 10:45 AM EDT) Pathologist [facility] PARTIAL THROMBOPLASTIN TIME 27.9 22.3 - 36.2 sec TB 12/30/2024 10:4 5 AM EDT 12/30/2024 10:47 AM EDT Narrative [facility] - 12/30/2024 11:35 AM EDT Generic External Data Provider [facility]IN[facility] F inal Result Performing Organization Address City/[facility]/ZIP Co de Phone Number [facility] * (ABNORMAL) ALL CBC WITH AUTO DIFF (12/30/2024 10:45 AM EDT) Pathologist [facility] TB WBC 5.5 4.0 - 11.0 10 3/uL TBH TB RBC 3.41(L) 4.70 - 6.10 10 6/uL TBH TBH HGB 11.3(L) 14.0 - 18.0 g/dL TBH TB HCT 32.6(L) 42.0 - 54.0 % TBH TBH MCV 95.6(H) 80.0 - 94.0 fL TBH TBH MCH 33.1 25.9 - 34.0 pg TBH TBH MCHC 34.7 29.9 - 35.2 g/dL TBH TB RDW 14.0 11.0 - 15.0 % TBH TBH PLT 119(L) 150 - 450 10 3/uL TBH TBH MPV 8.6(L) 9.5 - 13.5 fL TBH NEUTROPHILS PERCENT AUTO 68.2 43.0 - 75.0 [...] External Data Provider [facility] F inal [facility] * (ABNORMAL) ALL BASIC METABOLIC PANEL (12/30/2024 [...] 0.70 - 1.30 mg/dL TBH TBH EGFR-AF CENTRAL AFRICAN >60 >=60 mL/min/1.7 3m 2 TBH TBH EGFR-NON AF CENTRAL AFRICAN >60 >=60 mL/min/1.7 3m 2 TBH BUN CREATININE RATIO 27.4 TBH CALCIUM 9.6 8.5 - 10.1 mg/dL TBH 12/30/2024 10:4 5 AM EDT 12/30/2024 10:47 AM EDT Narrative [facility] - 12/30/2024 11:01 AM EDT us Generic External Data Provider [facility] F inal Result [facility] * ECG 12-LEAD (12/30/2024 8:41 AM EDT) Anatomical Region Laterality Modality Other 12/30/2024 8:41 AM EDT Narrative 12/31/2024 7:01 [place] [address] Electrocardiograph Report Signed Patient: FABIAN CHAMORRO MR#: [id number] : 1945 Acct:[id number] Age/Sex: 79 / M ADM Date: 12/30/24 Loc: CT Attending Dr: Jonnie Jensen M.D. Ordering Physician: Jonnie Jensen M.D. Date of Service: 12/30/24 Procedure(s): ECG 12 lead Accession Number(s): [id number] cc: [facility] Test Date: 2024-12-30 Pat Name: FABIAN CHAMORRO Department: Room: - Gender: Male Shoemaker Apprentice: : 1945 Requested By: JONNIE JENSEN Order Number: [id number] Magdalena MD: CASSANDRA JOSE M.D. Measurements Intervals [place] Rate: 78 P: 26 WV: 188 QRS: -24 QRSD: 87 T: 91 QT: 359 QTc: 411 Interpretive Statements SINUS RHYTHM BORDERLINE LEFT AXIS DEVIATION [QRS AXIS < -20] NONSPECIFIC T-WAVE ABNORMALITY Compared to ECG 08/29/2017 10:21:07 T-wave abnormality now present Myocardial infarct finding no longer present Electronically Signed On 12-31-2024 7:01:15 EDT by CASSANDRA JOSE M.D. Dictated By: CASSANDRA JOSE Signed By: 12/31/24 07 DD/ 0841 TD/TT: Lever Operator: Procedure Note Radiology, Radiologist, - 12/31/2024 The [place] [id number] Electrocardiograph Report Signed Patient: FABIAN CHAMORRO DMR#: [id number] : 1945cct:[id number] Age/Sex: 79 / MADM Date: 12/30/24 Loc: CT Attending Dr: Jonnie Jensen M.D. Ordering Physician: Jonnie Jensen M.D. Date of Service: 12/30/24 Procedure(s): ECG 12 lead Accession Number(s): [id number] cc: [facility] Test Date: 2024-12-30 Pat Name: FABIAN CHAMORRO Department: Room: - Gender: Male Shoemaker Apprentice: : 1945 Requested By: JONNIE JENSEN Order Number: [id number] Reading MD: CASSANDRA JOSE M.D. Measurements Intervals [place] Rate: 78 P: 26 WV: 188 QRS: -24 QRSD: 87 T: 91 QT: 359 QTc: 411 Interpretive Statements SINUS RHYTHM BORDERLINE LEFT AXIS DEVIATION [QRS AXIS < -20] NONSPECIFIC T-WAVE ABNORMALITY Compared to ECG 08/29/2017 10:21:07 T-wave abnormality now present Myocardial infarct finding no longer present Electronically Signed On 12-31-2024 7:01:15 EDT by CASSANDRA JOSE M.D. Dictated By: CASSANDRA JOSE Signed By:12/31/24 07 DD/ 0841 TD/TT: Lever Operator: Generic External Data Provider [facility] IMAG[facility] Final Result * XR elbow 3+ views left (10/20/2024 [...] 0.0 - 1.8 mg/dL 08/06/2024 3:02 PM [facility] CREATININE, URINE (RANDOM) 81.00 mg/dL 08/06/2024 3:02 PM [facility] Comment:No reference range e stablished MICROALBUMIN/CRE ATININE RATIO 87.7(H) 0.0 - 30.0 mg/g 08/06/2024 3:02 PM [facility] Comment: 30-300 mg/g indicates an increased risk for diabetic nephropathy. Greater than 300 mg/g is consistent with clinical nephropathy. (Am. J. Kidney Disease 1995, 25:107) Other 08/06/2024 2:02 PM EST 08/06/2024 2:02 PM EST Blake Larson MD LAB URINE ORDERABLES Final Resul t [address] [address], [facility] [address] [place] [address] * (ABNORMAL) Hemoglobin a1c with eag (08/06/2024 2:01 PM EST) HEMOGLOBIN A1C 7.4(H) 4.3 - 5.6 % 08/07/2024 8:33 AM [facility] Comment: Increased risk for diabetes: 5.7 - 6.4 diabetes: >6.4 glycemic control for adults with diabetes: <7.0 ESTIMATED AVERAGE GLUCOSE 166 mg/dL 08/07/2024 8:33 AM [facility] Blood (Blood) 08/06/2024 2:0 1 PM EST 08/06/2024 2:01 PM EST Blake Larson MD LAB BLOOD ORDERABLES Final Resul t [facility] [address] [place] [address], [facility] [address] [facility] [place] [address] from Last 3 Months or Most Recently Relevant to Health Maintenance Insurance MEDICARE [facility] Care Teams Business Editor Relationship Specialty Start Date End Date Blake Larson MD [address] [place] [address] PCP - General Family Medicine 07/24/23 Blake Larson MD [address] [place] [address] PCP - ACO Reach 07/18/24
--- OUTSIDE RECORDS SUMMARY | 2025-01-09 06:54 | XMS_ITS | Clinical Summary ---
Author Organization [email or web address] Address [id number] [address] [place] [address] Care Team Providers Care Moving Worker Name Role Phone Blake Larson MD Primary Care Provider [phone] Allergies No known active allergies Medications metFORMIN [...] Medical Devices Not on file Insurance MEDICARE [facility] Advance Directives * Full Code (Latest Code Status on File) Date Activated Date Inactivated Comments 08/29/2017 3:43 PM 08/30/2017 7:25 PM Care Teams Moving Worker Relationship Specialty Start Date End Date Blake Larson MD PCP - General Family Medicine 08/29/17
--- OUTSIDE RECORDS SUMMARY | 2025-01-09 06:54 | XMS_ITS | Encounter Summary ---
Author Organization [facility] Address [address] [place] [address] [place] [address] Care Team Providers Care Anthropology Faculty Member Name Role Phone Blake Larson MD Primary Care Provider [phone] Blake Larson MD Unavailable Encounter Details Date Type Department Care Team (Late st Contact Info) Description 04/21/2024 Abstract [facility] [address] [place] [phone] Errol Powell DPHeladio [address] [place], [place] [phone] Social History Tobacco Use Types Packs/Day Years [...] week 01/22/2024 How often do you attend [facility] or zoroastrianism services? Patient declined 01/22/2024 Do you belong to any clubs o r organizations such as mandaen groups, unions, fraternal or athletic groups, or [...] and heating? Not hard at all 01/22/2024 [facility] of Occupat ional Health - Occupational Stress [...] any time in the past 12 m [facility], were you homeless or living in [...] Procedure Visit [facility] [address] [place] [phone] Errol Powell DPM [address] [place] [address] 02/03/2025 10:30 AM EDT Office Visit [facility] [address] [place] [address] Blake Larson MD [address] [place] [address] 07/28/2025 9:45 AM EST Office Visit [facility] [place] [facility] [address] [place] [address] Sophia Mcmahon MD [address] [place] [address] documented as of this encounter Visit Diagnoses Not on filedocumented in this encounter Care Teams Anthropology Faculty Member Relationship Specialty Start Date End Date Blake Larson MD [address] [place] [address] PCP - General Family Medicine 07/24/23 Blake Larson MD [address] [place] [address] PCP - ACO Reach 07/18/24 documented as of this encounter
--- OUTSIDE RECORDS SUMMARY | 2025-01-09 06:55 | XMS_ITS | CCD ---
Author Organization [facility] Care Team Providers Care Pyrometer Mechanic Name Role Phone PHYSICIAN, DEFAULT Unavailable Unavailable PHYSICIAN, DEFAULT Unavailable Unavailable Alejandro Davenport Primary Care Provider BLAKE NG Primary Care Physician MD Jermaine Mancia Attending Provider MD Blake Ng Primary Care Provider MD Jermaine Mancia Attending Provider MD Blake Ng Primary Care Provider MD Rosy Pina Attending Provider MD Jermaine Mancia Referring Provider [phone] MD Rosy Pina Attending Provider MD Jermaine Mancia Referring Provider MD Blake Ng Primary Care Provider MD Rosy Pina Attending Provider MD Jermaine Mancia Referring Provider DR BLAKE NG Admitting Unavailable FRACISCOEREJerome, DR BLAKE Bernabe Attending Unavailable HERNANDEZ, DR BLAKE Bernabe Primary Care Unavailable HERNANDEZ, DR BLAKE Bernabe Consulting Unavailable HERNANDEZ, DR BLAKE Bernabe Admitting Unavailable NADEREJerome, DR BLAKE Bernabe Attending Unavailable HERNANDEZ, DR BLAKE Bernabe Primary Care Unavailable HERNANDEZ, DR BLAKE Bernabe Consulting Unavailable MIKEY ., DR DEAN Admitting Unavailable MIKEY ., DR DEAN Attending Unavailable HERNANDEZ, DR BLAKE Bernabe Primary Care Unavailable MIKEY ., DR DEAN Consulting Unavailable ALINA, DR ISABELLA Cano Consulting Unavailable MD Blake Ng Primary Care Provider MD Rosy Pina Attending Provider MD Jermaine Mancia Referring Provider MD Jermaine Mancia Attending Provider MD Rosy Pina Referring Provider MD Blake Ng Primary Care Provider MD Rosy Pina Attending Provider MD Jermaine Mancia Referring Provider Blake Ng MD Primary Care Provider [phone] MD Blake Ng Primary Care Provider MD Rosy Pina Attending Provider MD Jermaine Mancia Referring Provider [phone] MD Blake Ng Attending Provider DO María Reddy Referring Provider MD Blake Ng Primary Care Provider MD Rosy Pina Attending Provider MD Jermaine Mancia Referring Provider [phone] MD Blake Ng Primary Care Provider MD Jermaine Mancia Attending Provider MD Rosy Pina Attending Provider MD Jermaine Mancia Referring Provider MD Blake Ng Attending Provider Blake Ng MD Primary Care Provider Blake Ng MD Unavailable Blake Ng MD Primary Care Provider [phone] Blake Ng MD Attending Provider Blake Ng MD Primary Care Provider Tre Bertrand APRN Attending Provider Jermaine Mancia MD Attending Provider Hernandez, Blake Attending Unavailable Naderer, Blake Admitting Unavailable Naderer, Blake Primary Care Unavailable Naderer, Blake Attending Unavailable Naderer, Blake Admitting Unavailable Naderer, Blake Primary Care Unavailable Mancia, Jermaine Referring Unavailable Silvana, Rosy R Admitting Unavailable Silvana, Rosy R Attending Unavailable Naderer, Blake Primary Care Unavailable Mancia, Jermaine Admitting Unavailable Mancia, Jermaine Attending Unavailable Naderer, Blake Primary Care Unavailable RUSHER, ISABELLA Bernabe Attending Unavailable PETITTI, SYMONE Bernabe Attending Unavailable NADERER, BLAKE Attending Unavailable RUSHER, ISABELLA Bernabe Attending Unavailable BROWN, JAYCOB Bernabe Referring Unavailable BROWN, JAYCOB Bernabe Attending Unavailable BROWN, JAYCOB Bernabe Referring Unavailable NADERER, BLAKE Attending Unavailable NADERER, BLAKE Attending Unavailable RUSHER, ISABELLA Bernabe Attending Unavailable RUSHER, ISABELLA A Attending Unavailable RUSHER, ISABELLA A Attending Unavailable RUSHER, ISABELLA Bernabe Attending Unavailable RUSHER, ISABELLA A Referring Unavailable RUSHER, ISABELLA A Attending Unavailable RUSHER, ISABELLA A Referring Unavailable NADERER, BLAKE Attending Unavailable MANCIA, Jermaine R Attending Unavailable MANCIA, Jermaine Cano Attending Unavailable MANCIA, Jermaine R Admitting Unavailable MANCIA, Jermaine Cano Attending Unavailable Medications Current Medications Medication Drug Class(es) Dates Sig (Normalized) Sig (Original) acetaminophen 325 mg / HYDROcodone bitartrate 7.5 mg oral tablet (1 source) Opioid Agonist Start: 03-16-2022 take 1 tablet by mouth once, then take 1 tablet by mouth every hour [place] 325 mg-7.5 mg oral tablet 1 tab(s), Oral, Once, 1 tab(s), Refill(s) 0, Take 1 hour prior to procedure, [id number], 180, cm, 12/23/21 8:24:00 EDT, Height/Length Dosing, 94, kg, 12/23/21 8:24:00 EDT, Weight Dosing Start Date: 03/16/22 Status: Ordered allopurinol 300 mg oral tablet (20 sources) Xanthine Oxidase Inhibitor Start: 12-29-2011 take 1 tablet by mouth once daily allopurinol (Zyloprim) 300 MG tablet Indications: History of renal calculi Take 1 tablet (300 mg) by mouth Daily 90 tablet 3 07/03/2024 Active Comment on above: Take 300 mg by mouth once daily. ascorbic acid 226 mg / beta carotene [id number] unt / cuprous oxide 0.8 mg / dl-alpha tocopheryl acetate 200 unt / zinc oxide 34.8 mg oral capsule (1 source) Vitamin C Start: 05-08-2022 take 1 capsule by mouth twice daily aspirin 81 mg oral tablet (20 sources) Platelet Aggregation Inhibitor, Nonsteroidal Anti-inflammatory Drug Start: 05-13-2018 take 1 tablet by mouth once daily aspirin 81 mg oral tablet 81 mg = 1 tab(s), Oral, Daily, Blood Thinner Start Date: 05/13/18 Status: Ordered Repeat number: 1 End: 01-02-2025 aspirin 81 MG EC tablet 1 (o ne) time each day at the same time 01/02/2025 Discontinued Comment on above: Take 81 mg by mouth once daily. Blood Glucose Monitoring Suppl (True Metrix Meter) w/Device kit (20 sources) Start: 08-01-2023 Blood Glucose Monitoring Suppl (True Metrix Meter) w/Device kit Indications: Type 2 diabetes mellitus with hyperglycemia, with long-term current use of insulin (HCC) 1 each in the morning and 1 each in the evening and 1 each before bedtime. 1 kit 08/01/2023 Active Start: 08-01-2023 Blood Glucose Monitoring Suppl (True Metrix Meter) w/Device kit Indications: Type 2 diabetes mellitus with hyperglycemia, with long-term current use of insulin (CMS/HCC) 1 each in the morning and 1 each in the evening and 1 each before bedtime. 1 kit 08/01/2023 Active celecoxib 100 mg oral capsule (2 sources) Nonsteroidal Anti-inflammatory Drug take 1 capsule by mouth in the morning celecoxib (CeleBREX) 100 MG capsule Take 100 mg by mouth in the morning and 100 mg before bedtime. 0 Active cephalexin 500 mg oral capsule (20 sources) Cephalosporin Antibacterial Start: 03-25-20 End: 01-03-20 cephalexin (Keflex) 500 MG capsule Indications: History of total shoulder replacement, unspecified laterality Take 4 pills 30-60 mins before dental appointment with food 4 capsule 3 03/25/2024 01/02/2025 Discontinued Start: 02-09-2023 cephalexin (Ke flex) 500 MG capsule Indications: History of total shoulder replacement, unspecified laterality Take 30-60 mins before dental appointment with food 4 capsule 3 02/09/2023 Active docusate sodium 100 mg oral capsule (2 sources) Start: 05-13-2018 take 1 capsule by mouth twice daily as needed for constipation Colace 100 mg Cap 100 mg = 1 cap(s), Oral, BID, PRN for constipation, # 20 cap(s), Refills(s) 0 Start Date: 05/13/18 Status: Ordered 0.5 ml dulaglutide 3 mg/ml auto-injector (20 sources) GLP-1 Receptor Agonist Start: 05-09-2018 End: 09-18-2023 Trulicity Pen 1.5 mg/0.5 mL subcutaneous solution 1.5 mg, SubCutaneous, Sunday, Refills(s) 0, Blood glucose Start Date: 05/09/18 Status: Ordered Repeat number: 1 inject 0.75 mg by zepeda bcutaneous injection every week dulaglutide (Trulicity) 0.75 MG/0.5ML solution pen-injector Inject 0.75 mg under the skin 1 (one) time per week. 0 Active Comment on above: Inject 1.5 mg subcut aneously once each week. dutasteride 0.5 mg oral capsule (1 source) 5-alpha Reductase Inhibitor Start: 12-30-19 End: 12-25-19 take 1 capsule by mouth once daily dutasteride 0.5 mg Cap 0.5 mg = 1 cap(s), Oral, Daily, X 90 day(s), # 90 cap(s), Refills(s) 3, Pharmacy: [facility], 180, cm, 12/29/24 8:48:00 EDT, Height/Length Dosing, 91.1, kg, 12/29/24 8:48:00 EDT, Weight Dosing Start Date: 12/29/24 Stop Date: 12/24/25 Status: Ordered Quantity: 90.0 Unit: cap(s) Repeat number: 4 esomeprazole 20 mg delayed release oral capsule (20 sources) Proton Pump Inhibitor Start: 05-08-20 take 1 capsule by mouth once daily Start: 12-29-2011 take 1 capsule by [facility] once daily Nexium 40 mg Cap-EC 40 mg, Oral, Daily, Refills(s) 0 Start Date: 12/29/11 Status: Ordered Repeat number: 1 Comment on above: Take 40 mg by mouth once daily. ferrous sulfate 325 mg oral tablet (20 sources) Start: take 1 tablet by mouth once daily hydrOXYzine hydrochloride 25 mg oral tablet (16 sources) Antihistamine Start: End: take 1 tablet by mouth four times daily as needed hydrOXYzine HCl (Atarax) 25 MG tablet Indications: Pruritus Take 1 tablet (25 mg) by mouth 4 (four) times a day as needed for itching 60 tablet 3 08/05/2024 01/02/2025 Discontinued insulin glargine 100 unt/ml injectable solution (20 sources) Insulin Analog Start: inject 45 [IU] by subcutaneous injection at bedtime insulin glargine (Lantus) 100 UNIT/ML injection Indications: Type 2 diabetes mellitus with hyperglycemia, with long-term current use of insulin (HCC) Inject 45 Units under the skin at bedtime 45 mL 3 07/03/2024 Active Start: 04-07-2024 inject 45 [IU] by zepeda bcutaneous injection at bedtime insulin glargine (Lantus) 100 UNIT/ML injection Indications: Type 2 diabetes mellitus with hyperglycemia, with long-term current use of insulin (CMS/HCC) Inject 45 Units under the skin at bedtime 45 mL 3 04/07/2024 Active Start: 01-28-2024 insulin glargi ne (Lantus SoloStar) 100 UNIT/ML pen Inject 45 Units under the skin at bedtime 01/28/2024 Active Start: 04-26-2022 End: 06-13-2023 inject 60 [IU] by subcutaneous injection at bedtime Insulin Glargine (Lantus U-100 Insulin) 100 unit/mL solution Discontinued 60 UNIT SUBCUT Bedtime April 26, 2022 1:00am June 13, 2023 10:59am Start: 05-21-2018 inject 50 [IU] by zepeda bcutaneous injection once daily at bedtime LANTUS U-100 INSULIN 100 unit/mL injection Inject 50 Units subcutaneously daily at bedtime. 0 05/21/2018 Active Start: 12-29-2011 inject 50 [IU] by zepeda bcutaneous injection once daily at bedtime Lantus 100 units/mL Injection-Insulin 50 unit(s), SubCutaneous, Once a day (at bedtime), Refills(s) 0, Blood glucose Start Date: 12/29/11 Status: Ordered Repeat number: 1 insulin glargine (Lantus SoloStar) 100 UNIT/ML pen Inject 60 Units under the skin at bedtime. 0 Active Comment on above: Inject 50 Units subc utaneously daily at bedtime. ammonium lactate 120 mg/ml topical lotion (2 sources) End: ammonium lactate (Lac-Hydrin) 12 % lotion Apply topically if needed for dry skin 0 07/19/2023 Discontinued (Entered in error) levoFLOXacin 750 mg oral tablet (2 sources) Quinolone Antimicrobial Start: End: take 1 tablet by mouth once daily levoFLOXacin (Levaquin) 750 MG tablet Indications: Acute non-recurrent maxillary sinusitis Take 1 tablet (750 mg) by mouth Daily for 7 days 7 tablet 06/20/2024 06/27/2024 Active lisinopril 20 mg oral tablet (20 sources) Angiotensin Converting Enzyme Inhibitor Start: End: take 1 tablet by mouth once daily lisinopril 20 MG tablet Indications: Type 2 diabetes mellitus with hyperglycemia, with long-term current use of insulin (HCC) , Hypercholesterolemia , Elevated PSA , Dyslipidemia Take 1 tablet (20 mg) by mouth 1 (one) time each day at the same time 90 tablet 3 07/03/2024 06/28/2025 Active Start: 04-26-2022 Start: 04-26-2022 take 20 mg by mouth once daily Lisinopril Active 20 MG PO Daily April 26, 2022 1:00am Start: 05-09-2018 take 1 tablet by nataly th once daily lisinopril 40 mg Tab 40 mg = 1 tab(s), Oral, Daily, Refills(s) 0, High blood pressure Start Date: 05/09/18 Status: Ordered Repeat number: 1 lisinopril 20 MG tablet 1 (one) time each day at the same time. 0 Active Comment on above: Take 40 mg by mouth once daily. Magnesium Oxide, Elemental, 400 MG tablet (11 sources) Start: take 1 tablet by mouth in the morning Magnesium Oxide, Elemental, 400 MG tablet Indications: Hypomagnesemia Take 400 mg by mouth in the morning and at noon 60 tablet 5 08/07/2024 Active metFORMIN hydrochloride 1000 mg oral tablet (20 sources) Biguanide Start: End: take 1 tablet by mouth in the morning metFORMIN (Glucophage) 1000 MG tablet Indications: Type 2 diabetes mellitus with hyperglycemia, with long-term current use of insulin (HCC) , Hypercholesterolemia , Elevated PSA , Dyslipidemia Take 1 tablet (1,000 mg) by mouth in the morning and 1 tablet (1,000 mg) in the evening. Take with meals. 180 tablet 3 07/03/2024 06/28/2025 Active Comment on above: Take 1,000 mg by nataly twice daily. 24 hr metoprolol succinate 50 mg extended release oral tablet (20 sources) beta-Adrenergic Sophia Start: 024 End: take 1 tablet by mouth once daily metoprolol succinate XL (Toprol-XL) 50 MG 24 hr tablet Indications: Type 2 diabetes mellitus with hyperglycemia, with long-term current use of insulin (HCC) , Hypercholesterolemia , Elevated PSA , Dyslipidemia Take 1 tablet (50 mg) by mouth Daily 90 tablet 3 07/03/2024 06/28/2025 Active Start: 04-26-2022 take 2 tablets by mo [facility] every twenty-four hours at bedtime Start: 04-26-2022 take 50 mg by mouth at bedtime Metoprolol Succinate Active 50 MG PO Bedtime April 26, 2022 1:00am Start: 04-26-2022 take 100 mg by mouth once le y Metoprolol Succinate Active 100 MG PO Daily April 26, 2022 12:00am Start: 05-09-2018 take 1 tablet by mouth once da ebony Metoprolol succinate 100 mg ER Tablet 100 mg, Oral, Daily, Refills(s) 0, High blood pressure Start Date: 05/09/18 Status: Ordered Repeat number: 1 Start: 05-09-2018 take 1 tablet by mouth once da ebony Metoprolol succinate 100 mg ER Tablet 100 mg, Oral, Daily, Refills(s) 0, High blood pressure Start Date: 05/09/18 Status: Ordered Start: 05-07-2018 take 50 mg by mouth once daily metoprolol succinate ER (TOPROL XL) 100 mg Tb24 Take 50 mg by mouth once daily. 0 05/07/2018 Active take 1 tablet by nataly th every twenty-four hours in the morning metoprolol succinate XL (Toprol-XL) 50 MG 24 hr tablet Take 50 mg by mouth in the morning. 0 Active Comment on above: Take 50 mg by mouth once daily. Multiple Vitamin (Multi Vitamin) tablet (20 sources) Multiple Vitamin (Multi Vitamin) tablet 1 (one) time each day at the same time Active Multiple Vitamin (Multi Vitamin) tablet 1 (one) time each day at the same time. Active Multiple Vitamin (Multi Vitamin) tablet 1 (one) time each day at the same time. 0 Active Multiple Vitamins-Minerals ( PreserVision AREDS) tablet (20 sources) Multiple Vitamin s-Minerals (PreserVision AREDS) tablet Active Multiple Vitamin s-Minerals (PreserVision AREDS) tablet as directed Orally Active Multiple Vitamin s-Minerals (PreserVision AREDS) tablet as directed Orally 0 Active Multivitamin preparation (12 sources) Start: 05-08-2022 take 1 tablet by mouth once daily Multivitamin Active 1 TAB PO Daily May 08, 2022 1:00am Start: 05-08-2022 take 1 tablet by nataly th once daily Multivitamin Active 1 TAB PO Daily May 08, 2022 12:00am Multivitamin Tablet (3 sources) Start: 05-08-2022 take 1 tablet by mouth once da ebony Start: 05-08-2022 take 1 tablet by nataly th once daily Multivitamin Tablet Active 1 TAB PO Daily May 08, 2022 1:00am Start: 05-08-2022 take 1 tablet by nataly th once daily Multivitamin Tablet Active 1 TAB PO Daily May 08, 2022 12:00am Multivitamins and Minerals (5 sources) Start: 12-29-2011 take 1 tablet by mouth once daily Multivitamins and Minerals 1 TAB, Oral, Daily, Refill(s) 0, Prophylaxis Start Date: 12/29/11 Status: Ordered Repeat number: 1 Start: 12-29-2011 take 1 tablet by nataly th once daily Multivitamins and Minerals 1 TAB, Oral, Daily, Refill(s) 0, Prophylaxis Start Date: 12/29/11 Status: Ordered predniSONE 50 mg oral tablet (2 sources) Start: 06-20-2024 End: 06-26-2024 take 1 tablet by mouth once daily predniSONE (Deltasone) 50 MG tablet Indications: Acute non-recurrent maxillary sinusitis Take 1 tablet (50 mg) by mouth Daily for 6 days 6 tablet 06/20/2024 06/26/2024 Active rosuvastatin calcium 10 mg oral tablet (20 sources) HMG-CoA Reductase Inhibitor Start: 12-29-2011 End: 06-28-2025 take 1 tablet by mouth in the morning rosuvastatin (Crestor) 10 MG tablet Indications: Type 2 diabetes mellitus with hyperglycemia, with long-term current use of insulin ([facility]) , Hypercholesterolemia , Elevated PSA , Dyslipidemia Take 1 tablet (10 mg) by mouth in the morning. 90 tablet 3 07/03/2024 06/28/2025 Active Comment on above: Take 10 mg by mouth once daily. Semaglutide (7 sources) Start: 09-18-2023 inject 1 mg by subcutaneous injection every week Start: 09-18-2023 inject 1 mg by subcu taneous injection every week Semaglutide (Ozempic) 1 mg/dose (4 mg/3 mL) pen injector Active 1 MG SUBCUT every week September 17, 2023 11:00pm Start: 09-18-2023 inject 1 mg by subcu taneous injection every week Semaglutide (Ozempic) 1 mg/dose (4 mg/3 mL) pen injector Active 1 MG SUBCUT every week September 18, 2023 12:00am semaglutide (Ozempic, 1 MG/DOSE,) 4 MG/3ML solution pen-injector (20 sources) Start: 07-03-2024 inject 1 mg by subcutaneous injection every week semaglutide (Ozempic, 1 MG/DOSE,) 4 MG/3ML solution pen-injector Indications: Type 2 diabetes mellitus with hyperglycemia, with long-term current use of insulin (HCC) Inject 1 mg under the skin 1 (one) time per week 3 each 3 07/03/2024 Active Start: 07-03-2024 inject 1 mg by subcu taneous injection every week semaglutide (Ozempic, 1 MG/DOSE,) 4 MG/3ML solution pen-injector Indications: Type 2 diabetes mellitus with hyperglycemia, with long-term current use of insulin ([facility]/HCC) Inject 1 mg under the skin 1 (one) time per week 3 each 3 07/03/2024 Active Start: 01-28-2024 inject 1 mg by subcu taneous injection every week semaglutide (Ozempic, 1 MG/DOSE,) 4 MG/3ML solution pen-injector Indications: Type 2 diabetes mellitus with hyperglycemia, with long-term current use of insulin ([facility]) Inject 1 mg under the skin 1 (one) time per week 3 each 3 01/28/2024 Active tadalafil 20 mg oral tablet (20 sources) Phosphodiesterase 5 Inhibitor Start: 12-29-2024 Cialis 20 mg Tab 20 mg = 1 tab(s), Oral, As Directed, Take one to two hours prior to sexual activity. Do NOT exceed 20 mg (1 tab) in 24 hours., # 30 tab(s), Refills(s) 3, Pharmacy: [facility] [id number], 180, cm, 12/29/24 8:48:00 EDT, Height/Length Dosing, 91.1, kg, 12/29/24 8:48:00 EDT, Weight Dosing Start Date: 12/29/24 Status: Ordered Quantity: 30.0 Unit: tab(s) Repeat number: 4 Start: 12-28-2023 End: 08-05-2024 tadalafil (Cialis) 20 MG tab let Take 20 mg by mouth 12/28/2023 08/05/2024 Discontinued tamsulosin hydrochloride 0.4 mg oral capsule (20 sources) alpha-Adrenergic Sophia Start: 06-06-2022 End: 06-13-2023 take 1 capsule by mouth twice daily Tamsulosin 0.4 mg Capsule Discontinued 0.4 MG PO Twice daily 60 June 06, 2022 1:00am June 13, 2023 10:58am Start: 05-21-2018 End: 01-02-2025 take 1 capsule by mouth once daily tamsulosin (Flomax) 0.4 MG 24 hr capsule Indications: Prostate cancer (HCC) Take 1 capsule (0.4 mg) by mouth Daily 90 capsule 3 07/03/2024 01/02/2025 Discontinued take 1 capsule by [facility] every twenty-four hours at bedtime tamsulosin (Flomax) 0.4 MG 24 hr capsule Take 0.4 mg by mouth at bedtime. 0 Active Comment on above: Take 0.4 mg by mouth once daily. ubidecarenone 100 mg oral ca psule (20 sources) Start: 05-08-2022 Start: 12-29-2011 take 1 capsule by mo ut twice daily Q-Sorb Co Q-10 oral capsule 100 mg = 1 cap(s), Oral, BID, Refills(s) 0, Prophylaxis Start Date: 12/29/11 Status: Ordered Repeat number: 1 Coenzyme Q10 (Co Q-10) 100 MG chewable tablet Active coenzyme Q-10 30 MG capsule Co Q-10 0 Active vitamin b12 1 mg extended release oral tablet (20 sources) Vitamin B12 Cyanocobalamin ( Vitamin B12) 1000 MCG tablet controlled-release 1 (one) time each day at the same time Active take 1 tablet by mouth once le y cyanocobalamin (VITAMIN B-12) 1,000 mcg tab Take 1,000 mcg by mouth once daily. 0 Active Comment on above: Take 1,000 mcg by [facility] once daily. Vitamins A,C,F-Zylf-Ddrjah (Preservision Areds) [id number] qtim-ky-kprt Capsule (14 sources) Start: 05-08-2022 take 1 capsule by mouth twice daily Vitamins A,C,E-Vtkn-Aachei (Preservision Areds) [id number] qyle-fh-ufip Capsule Active 1 CAP PO Twice daily May 08, 2022 1:00am Start: 05-08-2022 take 1 capsule by [facility] twice daily Vitamins A,C,J-Wxfo-Ebqtxy (Preservision Areds) [id number] kueg-wi-wzqq Capsule Active 1 CAP PO Twice daily May 08, 2022 12:00am Completed/Discontinued Medications Medication Drug Class(es) Dates Sig (Normalized) Sig (Original) acetaminophen 325 mg oral tablet (1 source) take 2 tablets by mouth every six hours as needed acetaminophen (TYLENOL) 325 mg tablet Take 650 mg by mouth every 6 hours as needed. 0 Active Comment on above: Take 650 mg by mouth every 6 hours as needed. amLODIPine 5 mg oral tablet (20 sources) Dihydropyridine Calcium Channel Sophia Start: 04-26-2022 End: 05-08-2022 take 1 tablet by mouth once daily Amlodipine 5 mg Tablet Discontinued 5 MG PO Daily April 26, 2022 1:00am May 08, 2022 3:10pm Start: 11-04-2018 amLODIPine 5 m g Tab Refills(s) 0 Start Date: 12/20/18 Status: Ordered Comment on above: Take 5 mg by mouth o nce daily. antiox #8/om3/dha/epa/lut/ze ax (PRESERVISION AREDS 2, OMEGA-3, ORAL) (1 source) take 1 tablet by mouth twice daily antiox #8/om3/dha/epa/lut/ zeax (PRESERVISION AREDS 2, OMEGA-3, ORAL) Take 1 tablet by mouth twice daily. 0 Active Comment on above: Take 1 tablet by nataly twice daily. benoxinate hydrochloride 4 mg/ml / fluorescein sodium 2.5 mg/ml ophthalmic solution (1 source) Diagnostic Dye Start: 10-26-19 End: 10-26-19 fluorescein-benoxin ate 0.25-0.4 % 1 Drop (FLURESS) Insulin Glargine (Lantus U-100 Insulin) 100 unit/mL solution (15 sources) Start: 04-26-20 End: 06-13-19 inject 60 [IU] by subcutaneous injection at bedtime Insulin Glargine (Lantus U-100 Insulin) 100 unit/mL solution Discontinued 60 UNIT SUBCUT Bedtime April 26, 2022 1:00am June 13, 2023 10:59am Start: 04-26-2022 End: 06-13-2023 inject 60 [IU] by subcutaneous injection at bedtime Insulin Glargine (Lantus U-100 Insulin) 100 unit/mL solution Discontinued 60 UNIT SUBCUT Bedtime April 26, 2022 12:00am June 13, 2023 9:59am Start: 04-26-2022 inject 60 [IU] by zepeda bcutaneous injection at bedtime Insulin Glargine (Lantus U-100 Insulin) 100 unit/mL solution Active 60 UNIT SUBCUT Bedtime April 26, 2022 1:00am Start: 04-26-2022 inject 60 [IU] by zepeda bcutaneous injection at bedtime Insulin Glargine (Lantus U-100 Insulin) 100 unit/mL solution Active 60 UNIT SUBCUT Bedtime April 26, 2022 12:00am Start: 04-26-2022 inject 50 [IU] by zepeda bcutaneous injection at bedtime Insulin Glargine (Lantus U-100 Insulin) 100 unit/mL solution Active 50 UNIT SUBCUT Bedtime April 26, 2022 12:00am insulin lispro 100 unt/ml injectable solution (12 sources) Insulin Analog Start: 05-08-2022 End: 06-13-2023 Insulin Lispro (Humalog U-100 Insulin) 100 unit/mL Solution Discontinued 0 .ROUTE .COMPLEX May 08, 2022 1:00am June 13, 2023 10:59am 8 units in AM if blood sugar over 150 Start: 12-23-2021 Humalog SubCut aneous, Refills(s) 0 Start Date: 12/23/21 Status: Ordered Repeat number: 1 Start: 12-23-2021 Humalog SubCut aneous, Refills(s) 0 Start Date: 12/23/21 Status: Ordered Insulin Lispro (Humalog U-10 0 Insulin) 100 unit/mL Solution (8 sources) Start: 05-08-2022 End: 06-13-2023 Insulin Lispro (Humalog U-10 0 Insulin) 100 unit/mL Solution Discontinued 0 .ROUTE .COMPLEX May 08, 2022 1:00am June 13, 2023 10:59am 8 units in AM if blood sugar over 150 Start: 05-08-2022 End: 06-13-2023 Insulin Lispro (Humalog U-10 0 Insulin) 100 unit/mL Solution Discontinued 0 .ROUTE .COMPLEX May 08, 2022 12:00am June 13, 2023 9:59am 8 units in AM if blood sugar over 150 meloxicam 15 mg oral tablet (1 source) Nonsteroidal Anti-inflammatory Drug Start: 06-06-2018 take 1 tablet by mouth once daily meloxicam (MOBIC) 15 mg tablet Take 15 mg by mouth once daily. 2 06/06/2018 Active Comment on above: Take 15 mg by mouth once daily. methylPREDNISolone 4 mg oral tablet (13 sources) Corticosteroid Start: 06-06-2022 End: 06-13-2023 Methylprednisolone 4 mg Tablets,Dose Pack Discontinued 0 .ROUTE .COMPLEX June 06, 2022 1:00am June 13, 2023 10:58am orally per package directions Start: 06-06-2022 End: 06-13-2023 Methylprednisolone Discontin ued 0 .ROUTE .COMPLEX 1 June 06, 2022 1:00am June 13, 2023 10:58am orally per package directions Start: 06-06-2022 End: 06-13-2023 Methylprednisolone Discontin ued 0 .ROUTE .COMPLEX 1 June 06, 2022 12:00am June 13, 2023 9:58am orally per package directions Start: 06-06-2022 Methylpredniso lone Active 0 .ROUTE .COMPLEX 1 June 06, 2022 1:00am orally per package directions Start: 06-06-2022 Methylpredniso lone Active 0 .ROUTE .COMPLEX 1 June 06, 2022 12:00am orally per package directions Vitamin B12 1000 mcg Tab (5 sources) Start: 05-09-2018 take 1 tablet by mouth once daily Vitamin B12 1000 mcg Tab 1,000 microgram = 1 tab(s), Oral, Daily, Refills(s) 0, Prophylaxis Start Date: 05/09/18 Status: Ordered Repeat number: 1 Start: 05-09-2018 take 1 tablet by nataly th once daily Vitamin B12 1000 mcg Tab 1,000 microgram = 1 tab(s), Oral, Daily, Refills(s) 0, Prophylaxis Start Date: 05/09/18 Status: Ordered Problems Active Problems Problem Classification Problem Date Documented Date Episodic/Chronic Allergic reactions (4 sources) Nummular eczema; 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: [Nummular dermatitis] 07-19-2023 Episodic Calculus of urinary tract (20 sources) Kidney stone; 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: [Calculus of kidney] Onset: 12-20-2021 Episodic Coagulation and hemorrhagic disorders (4 sources) Thrombocytopenic disorder; 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: [Thrombocytopenia, unspecified] Onset: 01-02-2025 01-02-2025 Chronic Complication of device; implant or graft (1 source) Dislocated intraocular lens; 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: [Displacement of intraocular lens, sequela] Episodic Diabetes mellitus with complications (20 sources) Type 2 diabetes mellitus with hyperglycemia; 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: [Type 2 diabetes mellitus with ulcer] Onset: 07-27-2022 Resolved: 08-01-2023 Chronic Diabetes mellitus without complication (5 sources) Type 1 diabetes mellitus 12-29-2011 Chronic Disorders of lipid metabolism (20 sources) Hypercholesterolemia; 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: [Hyperlipidemia, unspecified] Onset: 01-19-2022 08-22-2013 Chronic Essential hypertension (20 sources) Hypertensive disorder; 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: [Essential (primary) hypertension] Onset: 01-19-2022 12-29-2011 Chronic Gastroduodenal ulcer (except hemorrhage) (20 sources) Peptic ulcer; 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: [Peptic ulcer, site unspecified, unspecified as acute or chronic, without hemorrhage or perforation] Onset: 08-01-2023 08-01-2023 Chronic Genitourinary symptoms and ill-defined conditions (20 sources) Nocturia; 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: [Nocturia] Onset: 12-25-2022 Resolved: 08-05-2024 12-20-2018 Episodic Hyperplasia of prostate (20 sources) Benign prostatic hypertrophy with outflow obstruction; 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: [Benign prostatic hyperplasia with lower urinary tract symptoms] Onset: 12-16-2021 Resolved: 08-01-2023 Chronic Mycoses (3 sources) Onychomycosis due to dermatophyte ; 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: [Tinea unguium] 03-24-2024 Episodic Nonspecific chest pain (20 sources) Chest pain at rest; 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: [Chest pain, unspecified] Onset: 08-13-2023 Resolved: 08-05-2024 08-13-2023 Episodic Osteoarthritis (20 sources) Osteoarthritis of joint of right shoulder region; 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: [Localized, primary osteoarthritis of the hand] Onset: 12-25-2022 05-09-2018 Chronic Other aftercare (11 sources) Long-term current use of insulin; 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: [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] 03-24-2024 Episodic Other and unspecified benign neoplasm (4 sources) Melanocytic nevus of trunk; 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: [Melanocytic nevi of trunk] 07-19-2023 Episodic Other and unspecified benign neoplasm (2 sources) Skin lesion; 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: [Hemangioma of skin and subcutaneous tissue] 07-19-2023 Episodic Other and unspecified benign neoplasm (2 sources) Melanocytic nevi of other parts of face; 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: [Benign neoplasm of skin of other and unspecified parts of face] 07-21-2024 Episodic Other circulatory disease (2 sources) Spider nevus; 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: [Nevus, non-neoplastic] 07-21-2024 Episodic Other connective tissue disease (18 sources) Cramp in lower limb; 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: [Sleep related leg cramps] Onset: 08-05-2024 08-05-2024 Chronic Other connective tissue disease (5 sources) Disorder of rotator cuff 05-09-2018 Episodic Other connective tissue disease (4 sources) Swelling of left foot; 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: [Other specified soft tissue disorders] 04-14-2024 Episodic Other male genital disorders (20 sources) Male erectile dysfunction, unspecified; 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: [Erectile dysfunction] Onset: 12-28-2023 Chronic Other nervous system disorders (5 sources) 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 Other non-traumatic joint disorders (16 sources) Charcot's joint of foot; 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: [Charcot's joint, left ankle and foot] Onset: 08-05-2024 08-05-2024 Chronic Other non-traumatic joint disorders (2 sources) Pain in elbow; 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: [Pain in left elbow] 10-20-2024 Episodic Other nutritional; endocrine; and metabolic disorders (12 sources) Hypomagnesemia; 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: [Hypomagnesemia] Onset: 08-07-2024 08-07-2024 Chronic Other screening for suspected conditions (not mental disorders or infectious disease) (20 sources) Raised prostate specific antigen; 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: [Elevated prostate specific antigen [PSA]] Onset: 12-20-2021 Episodic Other skin disorders (4 sources) Seborrheic keratosis; 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: [Other seborrheic keratosis] 07-19-2023 Episodic Other skin disorders (4 sources) Lentiginosis; 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: [Other melanin hyperpigmentation] 07-19-2023 Episodic Other skin disorders (2 sources) History of actinic keratosis; 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: [Personal history of diseases of the skin and subcutaneous tissue] 07-19-2023 Episodic Other skin disorders (3 sources) Dystrophia unguium; 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: [Nail dystrophy] 03-24-2024 Episodic Other skin disorders (2 sources) Actinic keratosis; 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: [Actinic keratosis] 07-21-2024 Episodic Other skin disorders (2 sources) Epidermoid cyst; 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: [Epidermal cyst] 07-21-2024 Episodic Other upper respiratory disease (20 sources) Allergic rhinitis due to pollen; 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: [Allergic rhinitis due to pollen] Onset: 08-01-2023 08-01-2023 Chronic Spondylosis; intervertebral disc disorders; other back problems (2 sources) Backache; 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: [Dorsalgia, unspecified] Onset: 12-29-2024 Episodic Transient cerebral ischemia (20 sources) Transient cerebral ischemia; 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: [Transient cerebral ischemic attack, unspecified] Onset: 12-25-2022 11-24-2018 Chronic Past or Other Problems Problem Classification Problem Date Documented Da te Episodic/Chronic Cancer of prostate (20 sources) Malignant neoplasm of prostate; 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: [Malignant tumor of prostate] Onset: 04-14-2022 Resolved: 01-28-2024 Chronic Cancer of prostate (20 sources) Personal history of malignant neoplasm of prostate; 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: [History of malignant neoplasm of prostate] Onset: 12-28-2023 Episodic Chronic ulcer of skin (20 sources) Pressure ulcer of left heel, stage 2; 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: [Pressure ulcer, heel] Onset: 12-25-2022 Resolved: 08-01-2023 12-25-2022 Chronic Gastroduodenal ulcer (except hemorrhage) (20 sources) H/O: gastric ulcer; 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: [Personal history of peptic ulcer disease] Onset: 12-25-2022 12-29-2011 Episodic Joint disorders and dislocations; trauma-related (20 sources) Tear of medial meniscus of knee; 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: [Other tear of medial meniscus, current injury, unspecified knee, initial encounter] Onset: 12-25-2022 08-22-2013 Episodic Comment on above: LEFT KNEE Lymphadenitis (20 sources) Reactive lymphadenopathy; 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: [Enlarged lymph nodes, unspecified] Onset: 05-04-2020 12-25-2022 Episodic Mood disorders (16 sources) Mood disorders Onset: 08-05-2024 08-05-2024 Other aftercare (1 source) Other prison (current) drug therapy; 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: [OTH RESIDENTIAL CURRENT DRUG THERAPY] Onset: 01-19-2022 Episodic Other aftercare (1 source) 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; 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: [OFFAL 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 CURRENT USE OF INSULIN] Onset: 01-19-2022 Episodic Other aftercare (20 sources) Long-term current use of drug therapy; 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: [Other prison (current) drug therapy] Onset: 01-24-2024 01-24-2024 Episodic Other and unspecified benign neoplasm (20 sources) Nevus of left iris; 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] Onset: 06-18-2018 Episodic Other connective tissue disease (20 sources) Tear of right rotator cuff; 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: [Unspecified rotator cuff tear or rupture of right shoulder, not specified as traumatic] Onset: 12-25-2022 12-25-2022 Episodic Other inflammatory condition of skin (18 sources) Pruritus, unspecified; 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: [Unspecified pruritic disorder] Onset: 08-05-2024 08-05-2024 Episodic Other upper respiratory infections (20 sources) Acute maxillary sinusitis; 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: [Acute maxillary sinusitis, unspecified] Onset: 06-20-2024 Resolved: 08-05-2024 06-20-2024 Episodic Results Test Name Value Interpretation Reference Range Facility Urine Cytology ( Labs)on 0 01-06-2025 Urine Cytology Diagnosis Info Invalid Interpretation Code [facility] Comment on above: Result Comment: A:Ur ine,Urine:Voided Interpretation - Adequate cellularity for evaluation. CPT 41007 MicroScopic Description - Adequacy - Gross Description Site ID:A color Yellow fixative Alcohol Specimen designated Urine received in alcohol preservative and labeled with the patient???s name, consists of 80ml clear yellow fluid. Electronically signed by : on: 01/06/2025 08:34:52 Performed By: #### 1 [id number] #### [facility] [address] [place] [address] ECG 12-LEADon 12-31-2024 [place] [address] Electrocardiograph Report Signed Patient: ZACH CHAMORRO MR#: [id number] : 1945 Acct:[id number] Age/Sex: 79 / M ADM Date: 12/30/24 Loc: CT Attending Dr: Jermaine Mancia M.D. Ordering Physician: Jermaine Mancia M.D. Date of Service: 12/30/24 Procedure(s): ECG 12 lead Accession Number(s): [id number] cc: [facility] Test Date: 2024-12-30 Pat Name: ZACH CHAMORRO Department: Room: - Gender: Male Quality Project Manager: : 1945 Requested By: JERMAINE MANCIA Order Number: [id number] Magdalena MD: CASSANDRA JOSE M.D. Measurements Intervals [place] Rate: 78 P: 26 VA: 188 QRS: -24 QRSD: 87 T: 91 QT: 359 QTc: 411 Interpretive Statements SINUS RHYTHM BORDERLINE LEFT AXIS DEVIATION [QRS AXIS < -20] NONSPECIFIC T-WAVE ABNORMALITY Compared to ECG 08/29/2017 10:21:07 T-wave abnormality now present Myocardial infarct finding no longer present Electronically Signed On 12-31-2024 7:01:15 EDT by CASSANDRA JOSE M.D. Dictated By: CASSANDRA JOSE Signed By: 12/31/24 07 DD/ 0841 TD/TT: Cloth Finishing Range Back Tender: [facility] Radiology, Radiologist, MD - 12/31/2024 [place] [address] Electrocardiograph Report Signed Patient: ZACH CHAMORRO MR#: [id number] : 1945 Acct:[id number] Age/Sex: 79 / M ADM Date: 12/30/24 Loc: CT Attending Dr: Jermaine Mancia M.D. Ordering Physician: Jermaine Mancia M.D. Date of Service: 12/30/24 Procedure(s): ECG 12 lead Accession Number(s): [id number] cc: [facility] Test Date: 2024-12-30 Pat Name: ZACH CHAMORRO Department: Room: - Gender: Male Quality Project Manager: : 1945 Requested By: JERMAINE MANCIA Order Number: [id number] Magdalena MD: CASSANDRA JOSE M.D. Measurements Intervals [place] Rate: 78 P: 26 VA: 188 QRS: -24 QRSD: 87 T: 91 QT: 359 QTc: 411 Interpretive Statements SINUS RHYTHM BORDERLINE LEFT AXIS DEVIATION [QRS AXIS < -20] NONSPECIFIC T-WAVE ABNORMALITY Compared to ECG 08/29/2017 10:21:07 T-wave abnormality now present Myocardial infarct finding no longer present Electronically Signed On 12-31-2024 7:01:15 EDT by CASSANDRA JOSE M.D. Dictated By: CASSANDRA JOSE Signed By: 12/31/24 07 DD/ 0841 TD/TT: Cloth Finishing Range Back Tender: [facility] ECG 12-LEADOrdered By: Radio logist Radiology on 12-31-2024 [facility] Work Phone: ALL BASIC METABOLIC PANELon 12-30-2024 Anion gap [Moles/Vol] 12 mmol/L [facility] Calcium [Mass/Vol] 9.6 mg/dL 8.5 - 10. 1 mg/dL [facility] Chloride [Moles/Vol] 102 mmol/L 98 - 10 7 mmol/L [facility] CO2 [Moles/Vol] 30.3 mmol/L 21.0 - 32.0 mmol/L [facility] Creatinine [Mass/Vol] 0.73 mg/dL 0.70 - 1.30 mg/dL [facility] GFR/1.73 sq M.predicted CKD-EPI (S/P/Bld) [Vol rate/Area] >60 >=60 mL/min/1.73m 2 [facility] Glucose [Mass/Vol] 168 mg/dL High 74 - 106 mg/dL [facility] Interpretation and review of laboratory results Abnormal [facility] Potassium [Moles/Vol] 5.3 mmol/L High 3.5 - 5.1 mmol/L [facility] Sodium [Moles/Vol] 139 mmol/L 136 - 145 mmol/L [facility] TBH EGFR-NON AF BELIZEAN >60 >=60 mL/min/1.73m 2 [facility] Urea nitrogen [Mass/Vol] 20 mg/dL High 7.0 - 18.0 mg/dL [facility] Urea nitrogen/Creatinine [Mass ratio] 27.4 mg/mg [facility] CT ABDOMEN/PELVIS WO CONTo n 12-30-2024 [place] [address] CT Scan Report Signed Patient: ZACH CHAMORRO MR#: [id number] : 1945 Acct:[id number] Age/Sex: 79 / M ADM Date: 12/30/24 Loc: CT Attending Dr: Jermaine Mancia M.D. Ordering Physician: Jermaine Mancia M.D. Date of Service: 12/30/24 Procedure(s): CT abdomen pelvis wo con Accession Number(s): [id number] cc: Blake Ng M.D. [facility] [place] [id number] Patient Name: ZACH CHAMORRO MRN: [facility]:[id number] date: 1945 Sex: M Assigned Patient Location: CT Current Patient Location: [facility] Accession/Order Number: [id number] Exam Date: 12/30/2024 11:04 Report Date: 12/30/2024 11:06 At the request of: JERMAINE MANCIA MD Procedure: CT abdomen pelvis wo con [...] prostate gland. Urinary bladder is grossly remarkable.] Peritoneum/Retroperit oneum:No free air or free fluid or lymphadenopathy.[ Abd wall/Bones:Abdominal wall demonstrate no acute findings. Osseous structures demonstrate degenerative change.[ CT/CT abdomen pelvis wo con IMPRESSION: Bilateral nephrolithiasis largest stone measuring 1.3 cm involving the left kidney. No obstructive uropathy. Impression dictated by: Ritchie Cabrera Jr., D.O. 12/30/2024 11:06 AM Dictation Location: [place] [address] Electronically authenticated by: [id number] Y Date: 12/30/2024 11:06 Dictated By: Ritchie Cabrera M.D. Signed By: 12/30/24 1108 DD/ 1106 TD/TT: Cloth Finishing Range Back Tender: [facility] Radiology, Radiologist, - 12/30/2024 [place] [address] CT Scan Report Signed Patient: ZACH CHAMORRO MR#: [id number] : 1945 Acct:[id number] Age/Sex: 79 / M ADM Date: 12/30/24 Loc: CT Attending Dr: Jermaine Mancia M.D. Ordering Physician: Jermaine Mancia M.D. Date of Service: 12/30/24 Procedure(s): CT abdomen pelvis wo con Accession Number(s): [id number] cc: Blake Ng M.D. [facility] [place] [id number] Patient Name: ZACH CHAMORRO MRN: [facility]:[id number] date: 1945 Sex: M Assigned Patient Location: CT Current Patient Location: SURGOUT Accession/Order Number: [id number] Exam Date: 12/30/2024 11:04 Report Date: 12/30/2024 11:06 At the request of: JERMAINE MANCIA MD Procedure: CT abdomen pelvis wo con [...] prostate gland. Urinary bladder is grossly remarkable.] Peritoneum/Retroperit oneum:No free air or free fluid or lymphadenopathy.[ Abd wall/Bones:Abdominal wall demonstrate no acute findings. Osseous structures demonstrate degenerative change.[ CT/CT abdomen pelvis wo con IMPRESSION: Bilateral nephrolithiasis largest stone measuring 1.3 cm involving the left kidney. No obstructive uropathy. Impression dictated by: Ritchie Cabrera Jr., D.O. 12/30/2024 11:06 AM Dictation Location: [place] [address] Electronically authenticated by: [id number] Y Date: 12/30/2024 11:06 Dictated By: Ritchie Cabrera M.D. Signed By: 12/30/24 1108 DD/ 110 TD/TT: Cloth Finishing Range Back Tender: [facility] Radiology Study observation (narrative) [facility] CT ABDOMEN/PELVIS WO CONTO rdered By: Radiologist Radiology on 12-30-2024 [facility] Work Phone: ECG 12-LEADon 12-30-2024 Radiology Study observation (narrative) [facility] Ambulatory Visit Summaryon 0 12-29-2024 Ambulatory Visit Summary Ambulatory Visit Summary ZACH CHAMORRO :1945 Visit Date:12/29/2024 Ambulatory Visit Instructions Your Diagnosis History of prostate cancer Kidney stone BPH with urinary obstruction Erectile dysfunction Gross hematuria Back pain Tests Performed CT Abdomen/Pelvis w/o Contrast -- Results Pending -- Please visit your patient portal for your results or contact your primary care physician. Your Care Team Attending Physician - MIKEY ARORA, Jermaine Cano Primary Care Physician - HERNANDEZ ARORA, BLAKE This Is Your Medications List dutasteride (dutasteride 0.5 mg Cap) tadalafil (Cialis 20 mg Tab) Contact prescribing physician if questions or concerns allopurinol (allopurinol 300 mg Tab) aspirin (aspirin 81 mg oral tablet) cyanocobalamin (Vitamin B12 1000 mcg Tab) dulaglutide (Trulicity Pen 1.5 mg/0.5 mL subcutaneous solution) esomeprazole (Nexium 40 mg Cap-EC) insulin glargine (Lantus 100 units/mL Injection-Insulin) insulin lispro (Humalog) lisinopril (lisinopril 40 mg Tab) metformin (metformin 1000 mg Tab) metoprolol (Metoprolol succinate 100 mg ER Tablet) multivitamin with minerals (Multivitamins and Minerals) rosuvastatin (Crestor 10 mg Tab) tamsulosin (tamsulosin 0.4 mg Cap) ubiquinone (Q-Sorb Co Q-10 oral capsule) Procedures Performed Mixed beam EBRT (external beam radiation therapy) (07/11/2022), MRI-US fusion guided transperineal biopsy of prostate (03/28/2022), Arthroplasty of shoulder (05/13/2018), Lithotripsy (10/13/2008), Dissection tonsillectomy and adenoidectomy, Excision of calcaneal spur, knee arthroscopy witth meniscus repair, Lithotripsy of kidney, Stent placement, Stent removal, Tonsillectomy. Discharge Vitals Heart Rate (Peripheral) 66 Respiratory Rate 18 Blood Pressure 128/70 Height 180 cm Height 71 in Weight 91.1 kg Weight 200.841 lb BMI 28.12 What to do next You Need to Schedule the Following Appointments Follow Up with MIKEY ARORA, JAVI Mullen When: Where: [facility] [address] , [place] [address]- Medications What How Much When Instructions New dutasteride (dutasteride 0.5 mg Cap) 1 Capsules By Mouth Every day Duration: 90 Days Refills: 3 Pickup at [facility] Unchanged tadalafil (Cialis 20 mg Tab) 1 Tablets By Mouth Every day PRN for sexual activity. Unchanged allopurinol (allopurinol 300 mg Tab) 1 Tablets By Mouth Every day Contact prescribing physician if questions or concerns Unchanged aspirin (aspirin 81 mg oral tablet) 1 Tablets By Mouth Every day Contact prescribing physician if questions or concerns Unchanged cyanocobalamin (Vitamin B12 1000 mcg Tab) 1 Tablets By Mouth Every day Contact prescribing physician if questions or concerns Unchanged dulaglutide (Trulicity Pen 1.5 mg/ 0.5 mL subcutaneous solution) 1.5 Milligram Subcutaneous Sunday Contact prescribing physician if questions or concerns Unchanged esomeprazole (Nexium 40 mg Cap-EC) 40 Milligram By Mouth Every day Contact prescribing physician if questions or concerns Unchanged insulin glargine (Lantus 100 units/ mL Injection-Insulin) 50 Units Subcutaneous Once a day (at bedtime) Contact prescribing physician if questions or concerns Unchanged insulin lispro (Humalog) Subcutaneous Contact prescribing physician if questions or concerns Unchanged lisinopril (lisinopril 40 mg Tab) 1 Tablets By Mouth Every day Contact prescribing physician if questions or concerns Unchanged metformin (metformin 1000 mg Tab) 1 Tablets By Mouth 2 times a day Contact prescribing physician if questions or concerns Unchanged metoprolol (Metoprolol succinate 100 mg ER Tablet) 100 Milligram By Mouth Every day Contact prescribing physician if questions or concerns Unchanged multivitamin with minerals (Multivitamins and Minerals) 1 TAB By Mouth Every day Contact prescribing physician if questions or concerns Unchanged rosuvastatin (Crestor 10 mg Tab) 1 Tablets By Mouth Once a day (at bedtime) Contact prescribing physician if questions or concerns Unchanged tamsulosin (tamsulosin 0.4 mg Cap) By Mouth Every day Contact prescribing physician if questions or concerns Unchanged ubiquinone (Q-Sorb Co Q-10 oral capsule) 1 Capsules By Mouth 2 times a day Contact prescribing physician if questions or concerns Pharmacy Information [facility]: [address] [facility] [address] [phone] Allergies No Known Allergies Problems Ongoing - Any problem that you are currently receiving treatment for. Back pain BPH with urinary obstruction Erectile dysfunction Gross hematuria H/O: gastric ulcer History of kidney stone History of prostate cancer HTN - Hypertension Hypercholesterolemia IDDM Kidney stone Nocturia Tear of medial meniscus of knee TIA (transient ischemic attack) Patient Survey You may receive a survey via text or e-mail asking about your office visit. Please share your experien (more content not included)... Normal [facility] Urine Cytology ([facility])on 12-29-2024 Method of Extraction Voided Normal [facility] Comment on above: Performed By: #### 1 [id number] #### [facility] [address] Number of Jars 1 Invalid Interpretation Code [facility] Comment on above: Performed By: #### 1 [id number] #### [facility] [address] [place] [address] Specimen Urine Normal [facility] Comment on above: Performed By: #### 1 [id number] #### [facility] [address] [place] [address] Type of Service Technical Only Normal [facility] Comment on above: Performed By: #### 1 [id number] #### [facility] [address] [place] [address] Urology Office/Clinic Noteon 12-29-2024 Urology Office/Clinic Note Urology Office/Clinic Note Chief Complaint pt here for follow up with PSA and KUB HPI Staff 79 yr old male here for 6 mth f/u w/ PSA Previous Dx: prostate ca, kidney stone, BPH with urinary obstruction. *Tamsulosin 0.4 mg qd PSA: 04/30/24 - 0.4 10/28/24 - 0.27 Pt reports that on Sunday he was mowing his lawn on a riding emergency physician and when he went to urinate he did see some blood 1 time. pt states that he has not seen any more blood denies pain/burning reports intermittent flank pain in the mornings after waking History of Present Illness Tests reviewed: UA, PSA, KUB I have reviewed the previous health record information and history for this patient from Dr. Mancia. I have reviewed and verified the staff HPI to be accurate for this encounter. Review of Systems PHQ Score Initial Depression Screen Score: 0 SCORE ROS - Provider Constitutional: denies weight loss, denies hot flashes. Eyes: denies eye problems. Gastrointestinal: denies nausea, denies vomiting. Cardiovascular: denies chest pain or angina. Integumentary: no dryness Musculoskeletal: denies musculoskeletal symptoms. ENMT: denies otolaryngeal symptoms. Respiratory: no shortness of breath. Heme/Lymph: denies easy bleeding tendency, denies easy bruising tendency. Psychiatric: no confusion, no anxiety. Genitourinary: See HPI. Physical Exam Vitals & Measurements HR: 66(Peripheral) RR: 18 BP: 128/70 HT: 180 cm HT: 71 in WT: 91.1 kg WT: 200.841 lb BMI: 28.12 General Appearance: alert, no distress, well nourished, well developed adult. Assessment/Plan Pt here with his today. On ASA. 1. History of prostate cancer (Z85.46: Personal history of malignant neoplasm of prostate) PSA: 12/16/21 - 5.89 12/05/22 - 1.59 & 33.9% 05/2023 - 0.68 09/2023 - 0.40 12/19/23 - 0.80 04/30/24 - 0.40 10/28/24 - 0.27 MRI fusion prostate bx 06/2022 - Tanna 7 (3+4) 3 cores, 12-25% involvement. Intermediate risk adenocarcinoma of the prostate. iPSA 5.69. S/p SBRT 06/13/22. PSA cont to decrease. Will cont to monitor. 2. Kidney stone (N20.0: Calculus of kidney) KUB 12/09/20 - A stable left 3 mm kidney stone. KUB 12/16/21 - Grossly stable left nephrolithiasis. KUB 12/05/22 - 4.6 mm stone at the inferior pole of the Lt renal shadow, additional smaller renal stones are present bilaterally. KUB 12/19/23 [facility] - Stable 4 mm stone left kidney. Punctate stone projecting over the R renal shadow. Metabolic workup 12/2022 - Volume 1.3 L. KUB 12/24/24 [facility] - 8 mm stone L RCS which is larger than prior exam. 3 mm stone R, stable. Reviewed imaging with pt, the stone on the R is passable but unlikely he would be able to pass the stone on the left. Recommended treating the larger stone as well as getting a CT to assess for potential ureteral stone or recent passage of stone. Discussed ESWL for L sided stone. -Goal is 90 oz water daily -Will schedule cysto (for #5) and L ESWL. The procedure risks, benefits, details and treatment alternatives have been discussed with the patient. These include blood in the urine, infection, bleeding around the kidney, kidney bruising, inability to break up the stone, need for blood transfusion, blockage from stone fragments, and need for additional procedures, among others. Full informed consent has been obtained. Will order General anesthesia. 3. BPH with urinary obstruction (N40.1: Benign prostatic hyperplasia with lower urinary tract symptoms) Hasn't taken Flomax 0.4 mg qd. reports last visit with oncology, pt was told to d/c Flomax d/t dizziness. He has dizziness when he wakes in the morning. Reports baseline poor balance for a long time. No improvement in dizziness since stopping Flomax and does not feel urination has changed without med. Feels he has a good stream and that he empties completely. Nocturia 1-2x/night. Recommended starting 5-YO instead of alpha sophia to gradually help with urination and reduce bleeding from the prostate if this is the cause of his hematuria. Pt agrees to try. -Cont sx monitoring -Start Dutasteride 0.5 mg qd. SEs discussed. Sent to [facility]. 4. Erectile dysfunction (N52.9: Male erectile dysfunction, unspecified) Started Cialis 20 mg prn at prior OV. reports [facility] would not fill this rx for some reason, potentially out of stock. Will re-send rx per pt's request. -Start Cialis 20 mg prn. SEs, proper use, contraindications, priapism discussed. Sent to [facility]. 5. Gross hematuria (R31.0: Gross hematuria) UA neg. Pt had an isolated episode of painless gross hematuria over the weekend after riding emergency physician. Pt thought he might have passed a kidney stone. Has been complaining of intermittent pain outside of hematuria episode. Possible mild L flank pain on exam today. Pain is mild 1-2/10, constant, dull pain. Pain across his back over his waist. Ill-defined. Currently not having pain. Last had pain this morning. Taking tylenol for pain. Also had pain when he woke last night to void. (more content not included)... Normal [facility] Comment on above: Result Comment: Elec tronically Signed By: Jermaine MANCIA MD\.br\Date and Time Signed: 12/29/24 09:27 EDT\.br\Electronically Co-Signed By: Felecia Sharma\.br\Date and Time Co-Signed: 12/29/24 09:23 EDT X-ray reportOrdered By: Aiden Franklin on 12-24-2024 Study report [facility] [place] [address] [place] [address] XRay Report Signed Patient: Zach Chamorro MR#: [id number] : 1945 Acct:[id number] Age/Sex: 79 / M ADM Date: 5 Loc: XD Room: Type: [facility] Attending Dr: Jermaine Mancia MD Copies to: Jermaine Mancia MD~ Ordering Provider: Jermaine Mancia MD Date of Service: 12/24/24 XR/XR KUB: N20.0 XR KUB 12/24/2024 3:03 PM SIGNS AND SYMPTOMS: Follow-up renal stones PROTOCOL: Frontal radiographs of the abdomen and pelvis COMPARISON: 12/19/2023 FINDINGS: There is an 8 mm stone in the left renal collecting system which is slightly larger when compared to the prior exam. There is a 3 mm stone in the right which is unchanged. Degenerative changes are noted in the lumbar spine, hips, and sacroiliac joints. XR/XR KUB IMPRESSION: There is an 8 mm stone in the left renal collecting system which is slightly larger when compared to the prior exam. There is a 3 mm stone in the right which is unchanged. Impression dictated by: Aiden Franklin M.D. 12/24/2024 8:43 PM Dictation Location: [place] [address] Transcribed By: [facility] 12/24/242042 Dictated By: Aiden Franklin II, MD 12/24/242041 Signed By: 12/24/242042 [facility] Work Phone: XR KUBon 12-24-2024 XR KUB [facility] [address] [place] [address] [place] [address] XRay Report Signed Patient: Zach Chamorro MR#: [id number] : 1945 Acct:[id number] Age/Sex: 79 / M ADM Date: 12/24/24 Loc: Room: Type: [facility] Attending Dr: Jermaine Mancia MD Copies to: Jermaine Mancia MD Ordering Provider: Jermaine Mancia MD Date of Service: 12/24/24 XR/XR KUB: N20.0 XR KUB 12/24/2024 3:03 PM SIGNS AND SYMPTOMS: Follow-up renal stones PROTOCOL: Frontal radiographs of the abdomen and pelvis COMPARISON: 12/19/2023 FINDINGS: There is an 8 mm stone in the left renal collecting system which is slightly larger when compared to the prior exam. There is a 3 mm stone in the right which is unchanged. Degenerative changes are noted in the lumbar spine, hips, and sacroiliac joints. XR/XR KUB IMPRESSION: There is an 8 mm stone in the left renal collecting system which is slightly larger when compared to the prior exam. There is a 3 mm stone in the right which is unchanged. Impression dictated by: Aiden Franklin M.D. 12/24/2024 8:43 PM Dictation Location: [place] [address] Transcribed By: JUAN 12/24/242042 Dictated By: Aiden Franklin II, MD 12/24/242041 Signed By: 12/24/242042 Normal The Counts Include [facility] PSA Total (Not a Screen)on 0 10-28-2024 PSA Total (Not a Screen) 0.270 ng/mL Normal 0.000-4.000 The Counts Include [facility] Comment on above: Result Comment: Seri al tumor marker results determined by assays using different manufacturers or methods may not be comparable. Counts Include [facility] Laboratory entry level mechanical engineer and method: [employer] DXI, CHEMILUMINESCENT IMMUNOASSAY. PERFORMED BY: [place] [address] PATHOLOGIST TYPEWRITER RIBBON WINDER DELFINO MEJÍA M.D. Performed By: #### B MP, HEPATIC, A1C WTH eA, CBC, LIPID #### [facility] [place] [facility] [address] XR Elbow - left 3 [facility] Result: Four views of the left elbow, AP/lateral/oblique/ra diocapitellar, taken today and saved to the permanent medical record. No acute osseous abnormalities, no fat pad sign. Joint spaces are preserved. Tiny osteophyte at the tip of the olecranon. Critical access hospital Radiology Study observation (narrative) [facility] Hemoglobin a1c with eagon Glucose [Mass/Vol] 166 mg/dL [facility] HbA1c (Bld) [Mass fraction] 7.4 % High 4.3 - 5.6 % [facility] Comment on above: Increased risk for d iabetes: 5.7 - 6.4 diabetes: >6.4 glycemic control for adults with diabetes: <7.0 Interpretation and review of laboratory results Abnormal Critical access hospital A1C with Estimated Average G luon 08-06-2024 Glucose [Mass/Vol] 166 mg/dL Normal The Counts Include [facility] Comment on above: Result Comment: PERF ORMED BY: [place] [address] PATHOLOGIST TYPEWRITER RIBBON WINDER DELFINO MEJÍA M.D. Performed By: #### A 1C WTBriseida Barrett, MG, BMP #### [address] HbA1c (Bld) [Mass fraction] 7.4 % High 4.3-5.6 The Counts Include [facility] Comment on above: Result Comment: Incr eased risk for diabetes: 5.7 - 6.4 diabetes: >6.4 glycemic control for adults with diabetes: <7.0 Performed By: #### A 1C WTBriseida Barrett, MG, BMP #### [address] Basic Metabolic Panelon - Anion gap [Moles/Vol] 12.5 mmol/L Normal 6.0-15.0 Th e Counts Include [facility] Comment on above: Performed By: #### A 1C WTBriseida Barrett, MG, BMP #### [address] Calcium [Mass/Vol] 9.5 mg/dL Normal 8.6-10.3 The Counts Include [facility] Comment on above: Performed By: #### A 1C WTH Arnold, MG, BMP #### [address] Chloride [Moles/Vol] 100 mmol/L Normal 98-107 The Counts Include [facility] Comment on above: Performed By: #### A 1C WTH eA, MG, BMP #### [address] CO2 [Moles/Vol] 28.2 mmol/L Normal 21.0-31.0 The Counts Include [facility] Comment on above: Performed By: #### A 1C WTH eA, MG, BMP #### [address] Creatinine [Mass/Vol] 0.77 mg/dL Normal 0.70-1.30 The Counts Include [facility] Comment on above: Performed By: #### A 1C WTH eA, MG, BMP #### [facility] [address] [place] [address] [place] GFR/1.73 sq M.predicted MDRD (S/P/Bld) [Vol rate/Area] mL/min/{1.73_m2} Normal The Counts Include [facility] Comment on above: Performed By: #### A 1C WTH eA, MG, BMP #### [facility] [address] Glucose [Mass/Vol] 189 mg/dL High 70-100 The Counts Include [facility] Comment on above: Result Comment: [facility] Glucose Reference Range is dependent on time and content of last meal. Glucose of more than 200 mg/dL in a nonstressed, ambulatory subject supports the diagnosis of Diabetes Mellitus. ADA recommended reference range Performed By: #### A 1C WTH eA, MG, BMP #### [facility] [address] Potassium [Moles/Vol] 4.7 mmol/L Normal 3.5-5.1 The Counts Include [facility] Comment on above: Performed By: #### A 1C WTH eA, MG, BMP #### [facility] [address] Sodium [Moles/Vol] 136 mmol/L Normal 136-145 The Counts Include [facility] Comment on above: Performed By: #### A 1C WTH eA, MG, BMP #### [facility] [address] Urea nitrogen [Mass/Vol] 16 mg/dL Normal 7-25 The Counts Include [facility] Comment on above: Performed By: #### A 1C WTH eA, MG, BMP #### [facility] [address] Basic metabolic 1998 panelon 08-06-2024 Anion gap [Moles/Vol] 12.5 mmol/L 6.0 - 15.0 meq/L [facility] Calcium [Mass/Vol] 9.5 mg/dL 8.6 - 10. 3 mg/dL [facility] Chloride [Moles/Vol] 100 mmol/L 98 - 10 7 mmol/L [facility] CO2 [Moles/Vol] 28.2 mmol/L 21.0 - 31.0 mmol/L [facility] Creatinine (U) [Mass/Vol] 0.77 mg/dL 0.70 - 1.30 mg/dL [facility] ESTIMATED GFR mL/Min [facility] Glucose [Mass/Vol] 189 mg/dL High 70 - 100 mg/dL [facility] Comment on above: Random Glucose Refer ence Range is dependent on time and content of last meal. Glucose of more than 200 mg/dL in a nonstressed, ambulatory subject supports the diagnosis of Diabetes Mellitus. ADA recommended reference range Potassium [Moles/Vol] 4.7 mmol/L 3.5 - 5.1 mmol/L [facility] Sodium [Moles/Vol] 136 mmol/L 136 - 145 mmol/L [facility] Urea nitrogen [Mass/Vol] 16 mg/dL 7 - 25 mg/dL [facility] Calcium [Mass/volume] in Ser um or PlasmaOrdered By: Blake Ng on 08-06-2024 Calcium [Mass/Vol] Calcium [Mass/volume ] in Serum or Plasma 8.6-10.3 [facility] Carbon dioxide, total [Moles /volume] in Serum or PlasmaOrdered By: Blake Ng on 08-06-2024 CO2 [Moles/Vol] Carbon dioxide, tota l [Moles/volume] in Serum or Plasma 21.0-31.0 [facility] Chloride [Moles/volume] in S luke or PlasmaOrdered By: Blake Ng on 08-06-2024 Chloride [Moles/Vol] Chloride [Moles/volume] in Serum or Plasma 98-107 [facility] Creatinine [Mass/volume] in Serum or PlasmaOrdered By: Blake Ng on 08-06-2024 Creatinine [Mass/Vol] Creatinine [Mass/volume] in Serum or Plasma 0.70-1.30 [facility] Creatinine [Mass/volume] in UrineOrdered By: Blake Ng on 08-06-2024 Creatinine (U) [Mass/Vol] Creatinine [Mass/volume] in Urine [facility] Comment on above: No reference range e stablished Glucose [Mass/volume] in Ser um or PlasmaOrdered By: Blake Ng on 08-06-2024 Glucose [Mass/Vol] Glucose [Mass/volume ] in Serum or Plasma High 70-100 [facility] Comment on above: ADA recommended refe rence rangeRandom Glucose Reference Range is dependent on time and content of last meal. Glucose of more than 200 mg/dL in a nonstressed, ambulatory subject supports the diagnosis of Diabetes Mellitus. Magnesiumon 08-06-2024 Magnesium [Mass/Vol] 1.5 mg/dL Low 1.9 - 2 .7 mg/dL [facility] Magnesium [Mass/Vol] 1.5 mg/dL Low 1.9-2.7 The Counts Include [facility] Comment on above: Result Comment: PERF ORMED BY: [place] [address] PATHOLOGIST TYPEWRITER RIBBON WINDER DELFINO MEJÍA M.D. Performed By: #### A 1C WTH eA, MG, BMP #### [address] Magnesium [Mass/volume] in S luke or PlasmaOrdered By: Blake Ng on 08-06-2024 Magnesium [Mass/Vol] Magnesium [Mass/volume] in Serum or Plasma Low 1.9-2.7 [facility] MicroAlb Creat Ratio,Uon Albumin DL <= 20 mg/L (U) [Mass/Vol] 7.1 mg/dL High 0.0-1.8 The Counts Include [facility] Comment on above: Performed By: #### B MP, HEPATIC, A1C WTH eA, CBC, LIPID #### [facility] [address] Creatinine, Urine (Random) 81.00 mg/dL Normal The Counts Include [facility] Comment on above: Result Comment: No r eference range established Performed By: #### B MP, HEPATIC, A1C WTH eA, CBC, LIPID #### [facility] [address] Microalbumin/Creatinine Ratio 87.7 mg/g High 0.0-30.0 The Counts Include [facility] Comment on above: Result Comment: 30-3 00 mg/g indicates an increased risk for diabetic nephropathy. Greater than 300 mg/g is consistent with clinical nephropathy. (Am. J. Kidney Disease 1995, 25:107) PERFORMED BY: [facility] [address] [place] [address] PATHOLOGIST TYPEWRITER RIBBON WINDER DELFINO MEJÍA M.D. Performed By: #### B MP, HEPATIC, A1C WTH eA, CBC, LIPID #### [facility] [address] Microalbumin [Mass/volume] i n UrineOrdered By: Blake Ng on 08-06-2024 Albumin DL <= 20 mg/L (U) [Mass/Vol] Microalbumin [Mass/volume] in Urine High 0.0-1.8 [facility] Microalbumin/Creatinine rati o panel (U)on 08-06-2024 Albumin [Mass/Vol] 7.1 mg/dL High 0.0 - 1.8 mg/dL [facility] Creatinine spec 2 (U) [Mass/Vol] 81 mg/dL [facility] Comment on above: No reference range e stablished Interpretation and review of laboratory results Abnormal [facility] MICROALBUMIN/CREATININE RATIO 87.7 mg/g High 0.0 - 30.0 mg/g [facility] Comment on above: 30-300 mg/g indicate s an increased risk for diabetic nephropathy. Greater than 300 mg/g is consistent with clinical nephropathy. (Am. J. Kidney Disease 1995, 25:107) [facility] No Panel Informationon 08-06 Interpretation and review of laboratory results Abnormal Critical access hospital No Panel InformationOrdered By: Blake Ng on 08-06-2024 Estimated GFR (CKD-EPI) > 60.0 mL/Min [facility] Creatinine Clearance (Chem N/A [facility] Potassium [Moles/volume] in Serum or PlasmaOrdered By: Blake Ng on 08-06-2024 Potassium [Moles/Vol] Potassium [Moles/volume] in Serum or Plasma 3.5-5.1 [facility] Serum or plasma anion gap de terminationOrdered By: Blake Ng on 08-06-2024 Anion gap [Moles/Vol] Serum or plasma an ion gap determination 6.0-15.0 [facility] Sodium [Moles/volume] in Ser um or PlasmaOrdered By: Blake Ng on 08-06-2024 Sodium [Moles/Vol] Sodium [Moles/volume ] in Serum or Plasma 136-145 [facility] Urea nitrogen [Mass/volume] in Serum or PlasmaOrdered By: Blake Ng on 08-06-2024 Urea nitrogen [Mass/Vol] Urea nitrogen [Mass/volume] in Serum or Plasma 7-25 [facility] Urine microalbumin/creatinin e mass ratioOrdered By: Blake Ng on 08-06-2024 Albumin/Creatinine DL <= 20 mg/L (U) [Mass ratio] Urine microalbumin/creatini ne mass ratio High 0.0-30.0 [facility] Comment on above: 30-300 mg/g indicate s an increased risk for diabetic nephropathy. Greater than 300 mg/g is consistent with clinical nephropathy. (Am. J. Kidney Disease 1995, 25:107) No Panel Informationon 07-21 [facility] XR Foot - left 3 [facility] Result: 3 views left foot: Weight-bearing: DP, oblique, lateral: 05/15/2024: There are no distinct or interval changes from most recent views of 04/14/2024. Again unremarkable for acute osseous or joint pathology. Unremarkable for any acute fragmentation or medial column collapse. 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 Critical access hospital Radiology Study observation (narrative) [facility] PSA Total (Not a Screen)on 06-30-2023 PSA Total (Not a Screen) 0.400 ng/mL Normal 0.000-4.000 The Counts Include [facility] Comment on above: Result Comment: Seri al tumor marker results determined by assays using different manufacturers or methods may not be comparable. Counts Include [facility] Laboratory entry level mechanical engineer and method: [employer] DXI, CHEMILUMINESCENT IMMUNOASSAY. PERFORMED BY: [place] [address] PATHOLOGIST TYPEWRITER RIBBON WINDER DELFINO MEJÍA M.D. Performed By: #### P SATOTAL #### [address] XR Foot - left 3 [facility] Result: 3 views left foot: Weight-bearing: DP, oblique, lateral: 04/14/2024: Unremarkable for acute osseous or joint pathology. 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 Slight widening of the medial cuneiform and 2nd metatarsal base. No distinct erosive, lytic or fragmentation is appreciated. Unremarkable for fracture or stress fracture changes. Mild loss of the medial column contour. Critical access hospital Radiology Study observation (narrative) [facility] A1C with Estimated Average G vargasn 01-25-2024 Glucose [Mass/Vol] 140 mg/dL Normal The Counts Include [facility] Comment on above: Result Comment: PERF ORMED BY: [place] [address] PATHOLOGIST TYPEWRITER RIBBON WINDER JUDY GARCIA M.D. Performed By: #### B MP, HEPATIC, A1C WTH eA, CBC, LIPID #### [place] [address] [place] Alanine aminotransferase [En zymatic activity/volume] in Serum or PlasmaOrdered By: Blake Ng on 01-25-2024 ALT [Catalytic activity/Vol] 20 U/L Normal 7-52 [facility] Comment on above: Performed By: #### B MP, HEPATIC, A1C WTH eA, CBC, LIPID #### [place] [address] [place] Albumin [Mass/volume] in Ser um or Plasma by Bromocresol green (BCG) dye binding methoOrdered By: Blake Ng on 01-25-2024 Albumin BCG dye [Mass/Vol] 4.4 g/dL 3.5-5.7 [facility] Alkaline phosphatase [Enzyma tic activity/volume] in Serum or PlasmaOrdered By: Blake Ng on 01-25-2024 ALP [Catalytic activity/Vol] 70 U/L Normal 34-104 [facility] Comment on above: Performed By: #### B MP, HEPATIC, A1C WTH eA, CBC, LIPID #### [place] [address] [place] Aspartate aminotransferase [ Enzymatic activity/volume] in Serum or PlasmaOrdered By: Blkae Ng on 01-25-2024 AST [Catalytic activity/Vol] 19 U/L Normal 13-39 [facility] Comment on above: Performed By: #### B MP, HEPATIC, A1C WTH eA, CBC, LIPID #### [facility] [place] [address] Automated basophil %Ordered By: Blake Ng on 01-25-2024 Basophils/100 WBC (Bld) 0.5 % Normal . [facility] Comment on above: Performed By: #### B MP, HEPATIC, A1C WTH eA, CBC, LIPID #### [facility] [address] Automated basophil countOrde red By: Blake Ng on 01-25-2024 Basophils (Bld) [#/Vol] 0.0 10*3/uL Normal 0.0-0.2 [facility] Comment on above: Result Comment: PERF ORMED BY: [place] [address] PATHOLOGIST TYPEWRITER RIBBON WINDER JUDY GARCIA M.D. Performed By: #### B MP, HEPATIC, A1C WTH eA, CBC, LIPID #### [address] Automated blood monocyte cou ntOrdered By: Blake Ng on 01-25-2024 Monocytes (Bld) [#/Vol] 0.3 10*3/uL Normal 0.0-0.8 [facility] Comment on above: Performed By: #### B MP, HEPATIC, A1C WTH eA, CBC, LIPID #### [facility] [address] Automated eosinophil %Ordere d By: Blake Ng on 01-25-2024 Eosinophils/100 WBC (Bld) 5.1 % Normal . [facility] Comment on above: Performed By: #### B MP, HEPATIC, A1C WTH eA, CBC, LIPID #### [facility] [address] Automated eosinophil countOr dered By: Blake Ng on 01-25-2024 Eosinophils (Bld) [#/Vol] 0.3 10*3/uL Normal 0.0-0.45 [facility] Comment on above: Performed By: #### B MP, HEPATIC, A1C WTH eA, CBC, LIPID #### [facility] [address] Automated monocyte %Ordered By: Blake Ng on 01-25-2024 Monocytes/100 WBC (Bld) 5.0 % Normal . [facility] Comment on above: Performed By: #### B MP, HEPATIC, A1C WTH eA, CBC, LIPID #### [facility] [address] Automated neutrophil %Ordere d By: Blake Ng on 01-25-2024 Neutrophils/100 WBC (Bld) 72.3 % Normal . [facility] Comment on above: Performed By: #### B MP, HEPATIC, A1C WTH eA, CBC, LIPID #### [facility] [address] Basic Metabolic Panelon 01-09 GFR/1.73 sq M.predicted MDRD (S/P/Bld) [Vol rate/Area] mL/min/{1.73_m2} Normal The Counts Include [facility] Comment on above: Performed By: #### B MP, HEPATIC, A1C WTH eA, CBC, LIPID #### [facility] [address] Bilirubin.direct [Mass/volum e] in Serum or PlasmaOrdered By: Blake Ng on 01-25-2024 Bilirubin.direct [Mass/Vol] 0.10 mg/dL 0.03-0.18 [facility] Bilirubin.total [Mass/volume ] in Serum or PlasmaOrdered By: Blake Ng on 01-25-2024 Bilirubin [Mass/Vol] 0.7 mg/dL Normal 0.3-1.0 [facility] Comment on above: Performed By: #### B MP, HEPATIC, A1C WTH eA, CBC, LIPID #### [facility] [address] [place] [address] [place] Calcium [Mass/volume] in Ser um or PlasmaOrdered By: Blake Ng on 01-25-2024 Calcium [Mass/Vol] 9.2 mg/dL Normal 8.6-10.3 [facility] Comment on above: Performed By: #### B MP, HEPATIC, A1C WTH eA, CBC, LIPID #### [facility] [address] [place] [address] [place] Carbon dioxide, total [Moles /volume] in Serum or PlasmaOrdered By: Blake Ng on 01-25-2024 CO2 [Moles/Vol] 24.4 mmol/L Normal 21.0-31.0 [facility] Comment on above: Performed By: #### B MP, HEPATIC, A1C WTH eA, CBC, LIPID #### [facility] [address] [place] [address] [place] Chloride [Moles/volume] in S luke or PlasmaOrdered By: Blake Ng on 01-25-2024 Chloride [Moles/Vol] 105 mmol/L Normal 98-107 [facility] Comment on above: Performed By: #### B MP, HEPATIC, A1C WTH eA, CBC, LIPID #### [facility] [address] [place] [address] [place] Cholesterol [Mass/volume] in Serum or PlasmaOrdered By: Blake gN on 01-25-2024 Cholesterol [Mass/Vol] 136 mg/dL Low 140-200 [facility] Comment on above: Chol less than 200 m g/dl low riskChol 201-239 mg/dl borderline riskChol 240 mg/dl and greater high risk Result Comment: Chol less than 200 mg/dl low risk Chol 201-239 mg/dl borderline risk Chol 240 mg/dl and greater high risk Performed By: #### B MP, HEPATIC, A1C WTH eA, CBC, LIPID #### [facility] [address] [place] [id number] [place] Cholesterol in LDL Calc [Mas s/Vol]Ordered By: Blake Ng on 01-25-2024 Cholesterol in LDL [Mass/Vol] 63 mg/dL 0-100 [facility] Comment on above: LDL ATP III CLASSIFI CATIONLDL less than 100 mg/dL OptimalLDL 100-129 mg/dL Near or above optimalLDL 130-159 mg/dL Borderline highLDL 160-189 mg/dL HighLDL greater than 189 mg/dL Very high Cholesterol in VLDL Calc [Ma ss/Vol]Ordered By: Blake Ng on 01-25-2024 Cholesterol in VLDL [Mass/Vol] 40 mg/dL [facility] Complete Blood Count Auto Di ffon 01-25-2024 Mean Corpuscular HGB Conc 35.0 g/dL Normal 32.5-35.6 The Counts Include [address] [facility] Comment on above: Performed By: #### B MP, HEPATIC, A1C WTH eA, CBC, LIPID #### [facility] [address] NRBC% 0.1 /100{WBC} Normal 0-0.5 The Counts Include 234 Beds At [facility] Comment on above: Performed By: #### B MP, HEPATIC, A1C WTH eA, CBC, LIPID #### [facility] [address] Creatinine [Mass/volume] in Serum or PlasmaOrdered By: Blake Ng on 01-25-2024 Creatinine [Mass/Vol] 1.02 mg/dL Normal 0.70-1.30 [facility] Comment on above: Performed By: #### B MP, HEPATIC, A1C WTH eA, CBC, LIPID #### [facility] [address] Erythrocyte distribution wid th [Ratio] by Automated countOrdered By: Blake Ng on 01-25-2024 Erythrocyte distribution width (RBC) [Ratio] 14.3 % Normal 12.0-14.8 [facility] Comment on above: Performed By: #### B MP, HEPATIC, A1C WTH eA, CBC, LIPID #### [facility] [address] [place] [address] [place] Erythrocytes [#/volume] in B lood by Automated countOrdered By: Blake Ng on 01-25-2024 RBC (Bld) [#/Vol] 3.58 10*6/uL Low 3.90-5.[address] [facility] Comment on above: Performed By: #### B MP, HEPATIC, A1C WTH eA, CBC, LIPID #### [facility] [address] Glucose [Mass/volume] in Ser um or PlasmaOrdered By: Blake Ng on 01-25-2024 Glucose [Mass/Vol] 126 mg/dL High 70-100 [facility] Comment on above: ADA recommended refe rence rangeRandom Glucose Reference Range is dependent on time and content of last meal. Glucose of more than 200 mg/dL in a nonstressed, ambulatory subject supports the diagnosis of Diabetes Mellitus. Result Comment: [place] Glucose Reference Range is dependent on time and content of last meal. Glucose of more than 200 mg/dL in a nonstressed, ambulatory subject supports the diagnosis of Diabetes Mellitus. ADA recommended reference range Performed By: #### B MP, HEPATIC, A1C WTH eA, CBC, LIPID #### [facility] [address] Glucose mean value [Mass/vol ume] in Blood Estimated from glycated hemoglobinOrdered By: Blake Ng on 01-25-2024 Average glucose Estimated from glycated hemoglobin (Bld) [Mass/Vol] 140 mg/dL [facility] Hematocrit [Volume Fraction] of Blood by Automated countOrdered By: Blake Ng on 01-25-2024 Hematocrit (Bld) [Volume fraction] 34.0 % Low 38.8-50.0 [facility] Comment on above: Performed By: #### B MP, HEPATIC, A1C WTH eA, CBC, LIPID #### [facility] [address] Hemoglobin A1c percentageOrd ered By: Blake Ng on 01-25-2024 HbA1c (Bld) [Mass fraction] 6.5 % High 4.3-5.6 [facility] Comment on above: Increased risk for d iabetes: 5.7 - 6.4diabetes: >6.4glycemic control for adults with diabetes: <7.0 Result Comment: Incr eased risk for diabetes: 5.7 - 6.4 diabetes: >6.4 glycemic control for adults with diabetes: <7.0 Performed By: #### B MP, HEPATIC, A1C WTH eA, CBC, LIPID #### [facility] [address] Hemoglobin [Mass/volume] in BloodOrdered By: Blake Ng on 01-25-2024 Hemoglobin (Bld) [Mass/Vol] 11.9 g/dL Low 13.0-17.0 [facility] Comment on above: Performed By: #### B MP, HEPATIC, A1C WTH eA, CBC, LIPID #### [facility] [address] Hepatic Panelon 01-25-2024 Albumin [Mass/Vol] 4.4 g/dL Normal 3.5-5.7 The Counts Include [address] [facility] At [facility] Comment on above: Performed By: #### B MP, HEPATIC, A1C WTH eA, CBC, LIPID #### [address] Bilirubin,Indirect 0.6 mg/dL Normal The Counts Include [address] [facility] At [facility] Comment on above: Performed By: #### B MP, HEPATIC, A1C WTH eA, CBC, LIPID #### [address] Bilirubin.indirect [Mass/Vol] 0.10 mg/dL Normal 0.03-0.18 The Counts Include 234 [facility] At [facility] Comment on above: Performed By: #### B MP, HEPATIC, A1C WTH eA, CBC, LIPID #### [address] Leukocytes [#/volume] correc sonia for nucleated erythrocytes in Blood by Automated counOrdered By: Blake Ng on 01-25-2024 WBC corrected for nucl RBC Auto (Bld) [#/Vol] 5.6 10*3/uL 4.1-10.5 [facility] Leukocytes [#/volume] in Blo od by Automated countOrdered By: Blake Ng on 01-25-2024 WBC (Bld) [#/Vol] 5.6 10*3/uL Normal 4.1-10.5 [facility] Comment on above: Performed By: #### B MP, HEPATIC, A1C WTH eA, CBC, LIPID #### [address] Lipid Panelon 01-25-2024 LDL Cholesterol,Calculated 63 mg/dL Normal 0-100 The Counts Include [address] [facility] At [facility] Comment on above: Result Comment: LDL ATP III CLASSIFICATION LDL less than 100 mg/dL Optimal LDL 100-129 mg/dL Near or above optimal LDL 130-159 mg/dL Borderline high LDL 160-189 mg/dL High LDL greater than 189 mg/dL Very high Performed By: #### B MP, HEPATIC, A1C WTH eA, CBC, LIPID #### [facility] [address] Triglyceride w/Reflex 200 mg/dL High 0-149 The Counts Include [address] [facility] At [facility] Comment on above: Result Comment: TRIG ATP III CLASSIFICATION TRIG less than 150 mg/dL Normal TRIG 150-199 mg/dL Borderline high TRIG 200-500 mg/dL High TRIG greater than 500 mg/dL Very high Standard traceable to the Center for Disease Conrtrol and Prevention (CDC) test method. Performed By: #### B MP, HEPATIC, A1C WTH eA, CBC, LIPID #### [address] VLDL CHOLESTEROL 40 mg/dL Normal The Counts Include [address] [facility] At [facility] Comment on above: Performed By: #### B MP, HEPATIC, A1C WTH eA, CBC, LIPID #### [place] [address] [place] Lymphocytes [#/volume] in Bl ood by Automated countOrdered By: Blake Ng on 01-25-2024 Lymphocytes (Bld) [#/Vol] 1.0 10*3/uL Normal 1.00-4.8 [facility] Comment on above: Performed By: #### B MP, HEPATIC, A1C WTH eA, CBC, LIPID #### [facility] [address] [place] [address] [place] Lymphocytes/100 leukocytes i n Blood by Automated countOrdered By: Blake Ng on 01-25-2024 Lymphocytes/100 WBC (Bld) 17.1 % Normal . [facility] Comment on above: Performed By: #### B MP, HEPATIC, A1C WTH eA, CBC, LIPID #### [facility] [address] [place] [address] [place] MCH [Entitic mass] by Automa sonia countOrdered By: Blake Ng on 01-25-2024 MCH (RBC) [Entitic mass] 33.3 pg Normal 27.5-35.2 [facility] Comment on above: Performed By: #### B MP, HEPATIC, A1C WTH eA, CBC, LIPID #### [facility] [address] MCHC Auto (RBC) [Mass/Vol]Or dered By: Blake Ng on 01-25-2024 MCHC (RBC) [Mass/Vol] 35.0 g/dL 32.5-35.6 [facility] MCV [Entitic volume] by Auto mated countOrdered By: Blake Ng on 01-25-2024 MCV (RBC) [Entitic vol] 95.1 fL Normal 83.5-101 [facility] Comment on above: Performed By: #### B MP, HEPATIC, A1C WTH eA, CBC, LIPID #### [facility] [address] Neutrophils [#/volume] in Bl ood by Automated countOrdered By: Blake Ng on 01-25-2024 Neutrophils (Bld) [#/Vol] 4.1 10*3/uL Normal 1.8-7.7 [facility] Comment on above: Performed By: #### B MP, HEPATIC, A1C WTH eA, CBC, LIPID #### [facility] [address] [place] [address] No Panel InformationOrdered By: Blake Ng on 01-25-2024 Estimated GFR (CKD-EPI) > 60.0 mL/Min [facility] Creatinine Clearance (Chem N/A [facility] Nucleated erythrocytes [Pres ence] in Blood by Automated countOrdered By: Blake Ng on 01-25-2024 Nucleated RBC Auto Ql (Bld) 0.1 /100{WBC} 0-0.5 [facility] Platelet mean volume [Entiti c volume] in Blood by Automated countOrdered By: Blake Ng on 01-25-2024 Platelet mean volume (Bld) [Entitic vol] 6.6 fL Normal 6.6-10.1 [facility] Comment on above: Performed By: #### B MP, HEPATIC, A1C WTH eA, CBC, LIPID #### [facility] [address] [place] [address] [place] Platelets [#/volume] in Bloo d by Automated countOrdered By: Blake Ng on 01-25-2024 Platelets (Bld) [#/Vol] 139 10*3/uL Low 150-450 [facility] Comment on above: Performed By: #### B MP, HEPATIC, A1C WTH eA, CBC, LIPID #### [facility] [address] Potassium [Moles/volume] in Serum or PlasmaOrdered By: Balke Ng on 01-25-2024 Potassium [Moles/Vol] 4.5 mmol/L Normal 3.5-5.1 [facility] Comment on above: Performed By: #### B MP, HEPATIC, A1C WTH eA, CBC, LIPID #### [facility] [address] Protein [Mass/volume] in Ser um or PlasmaOrdered By: Blake Ng on 01-25-2024 Protein [Mass/Vol] 6.5 g/dL Normal 6.4-8.9 [facility] Comment on above: Performed By: #### B MP, HEPATIC, A1C WTH eA, CBC, LIPID #### [address] Serum globulin measurement b y calculation (mass/volume)Ordered By: Blake Ng on 01-25-2024 Globulin (S) [Mass/Vol] 2.1 g/dL Normal [facility] Comment on above: Performed By: #### B MP, HEPATIC, A1C WTH eA, CBC, LIPID #### [facility] [address] Serum or plasma albumin/glob ulin mass ratioOrdered By: Blake Ng on 01-25-2024 Albumin/Globulin [Mass ratio] 2.1 {ratio} Normal [facility] Comment on above: Performed By: #### B MP, HEPATIC, A1C WTH eA, CBC, LIPID #### [facility] [address] Serum or plasma anion gap de terminationOrdered By: Blake Ng on 01-25-2024 Anion gap [Moles/Vol] 13.1 mmol/L Normal 6.0-15.0 [facility] Comment on above: Performed By: #### B MP, HEPATIC, A1C WTH eA, CBC, LIPID #### [facility] [address] Serum or plasma high density lipoprotein (HDL) cholesterol measurementOrdered By: Blake Ng on 01-25-2024 Cholesterol in HDL [Mass/Vol] 33 mg/dL Normal 23-92 [facility] Comment on above: HDL CHOL ATP-III CLA SSIFICATION Cardiovascular RiskHDL > or equal to 60 mg/dL LOWHDL < 40 mg/dL HIGH Result Comment: HDL CHOL ATP-III CLASSIFICATION Cardiovascular Risk HDL > or equal to 60 mg/dL LOW HDL < 40 mg/dL HIGH Performed By: #### B MP, HEPATIC, A1C WTH eA, CBC, LIPID #### [facility] [address] Serum or plasma non-glucuron idated bilirubin measurement (mass/volume)Ordered By: Blake Ng on 01-25-2024 Bilirubin.indirect [Mass/Vol] 0.6 mg/dL [facility] Serum or plasma total choles terol/high density lipoprotein (HDL) cholesterol mass ratOrdered By: Blake Ng on 01-25-2024 Cholesterol.total/Kassy sterol in HDL [Mass ratio] 4.1 {ratio} Normal <5.0 [facility] Comment on above: Result Comment: PERF ORMED BY: [place] [address] PATHOLOGIST TYPEWRITER RIBBON WINDER JUDY GARCIA M.D. Performed By: #### B MP, HEPATIC, A1C WTH eA, CBC, LIPID #### [facility] [address] Sodium [Moles/volume] in Ser um or PlasmaOrdered By: Blake Ng on 01-25-2024 Sodium [Moles/Vol] 138 mmol/L Normal 136-145 [facility] Comment on above: Performed By: #### B MP, HEPATIC, A1C WTH eA, CBC, LIPID #### [facility] [address] Triglyceride [Mass/volume] i n Serum or PlasmaOrdered By: Blake Ng on 01-25-2024 Triglyceride [Mass/Vol] 200 mg/dL High 0-149 [facility] Comment on above: TRIG ATP III CLASSIF ICATIONTRIG less than 150 mg/dL NormalTRIG 150-199 mg/dL Borderline highTRIG 200-500 mg/dL High TRIG greater than 500 mg/dL Very highStandard traceable to the Center for Disease Conrtrol and Prevention (CDC) test method. Urea nitrogen [Mass/volume] in Serum or PlasmaOrdered By: Blake Ng on 01-25-2024 Urea nitrogen [Mass/Vol] 26 mg/dL High 7-25 [facility] Comment on above: Performed By: #### B MP, HEPATIC, A1C WTH eA, CBC, LIPID #### [facility] [address] Prostate specific Ag [Mass/v olume] in Serum or PlasmaOrdered By: Reshmaleena Silvana on 12-19-2023 Prostate specific Ag [Mass/Vol] 0.800 ng/mL 0.000-4.000 [facility] Comment on above: Serial tumor marker results determined by assays using different manufacturers or methods may not be comparable.Counts Include [address] [facility] At [facility] entry level mechanical engineer and method:[employer] DXI, CHEMILUMINESCENT IMMUNOASSAY. Prostate specific Ag [Mass/v olume] in Serum or PlasmaOrdered By: Norleena Silvana on 09-12-2023 Prostate specific Ag [Mass/Vol] 0.400 ng/mL 0.000-4.000 [facility] Comment on above: Serial tumor marker results determined by assays using different manufacturers or methods may not be comparable.Counts Include [address] [facility] At [facility] entry level mechanical engineer and method:[employer] DXI, CHEMILUMINESCENT IMMUNOASSAY. Prostate specific Ag [Mass/v olume] in Serum or PlasmaOrdered By: Norleena Silvana on 06-06-2023 Prostate specific Ag [Mass/Vol] 0.680 ng/mL 0.000-4.000 [facility] Comment on above: Serial tumor marker results determined by assays using different manufacturers or methods may not be comparable.Counts Include [address] [facility] At [facility] entry level mechanical engineer and method:[employer] DXI, CHEMILUMINESCENT IMMUNOASSAY. Prostate Specific Ag Free [M ass/volume] in Serum or PlasmaOrdered By: Jermaine Mancia on 12-05-2022 Free PSA [Mass/Vol] 0.540 ng/mL [facility] Prostate specific Ag [Mass/v olume] in Serum or PlasmaOrdered By: Jermaine Mancia on 12-05-2022 Prostate specific Ag [Mass/Vol] 1.590 ng/mL 0.000-4.000 [facility] Serum or plasma free prostat e specific antigen (PSA)/total PSA ratioOrdered By: Jermaine Mancia on 12-05-2022 Free PSA/Total PSA [Mass fraction] 33.9 % [facility] Comment on above: Based on the work of Martha et al.VITO. 279(19):1542:47.1998 the percent free PSA may be used to determine the relative risk of prostate cancer in individual men.The percent probability of prostate cancer by patient age for men with non-suspicious ANEESH results and total PSa between 4 and 10 ng/ml is as follows:% Free PSA 50 - 64 yrs. 65 - 75 yrs. 0 - 10 56% 55% 10 - 15 24% 35% 15 - 20 17% 23% 20 - 25 10% 20% >25 5% 9% Prostate specific Ag [Mass/v olume] in Serum or PlasmaOrdered By: Rosy Pina on 09-04-2022 Prostate specific Ag [Mass/Vol] 2.090 ng/mL 0.000-4.000 [facility] GLYCOHEMOGLOBIN A1Con 2022 ADA RECOMMENDATION SEE BELOW Normal [facility] Comment on above: Result Comment: ADA RECOMMENDED LIMIT 4.0 - 6.0 ADA THERAPEUTIC TARGET < 7.0 ACTION SUGGESTED > 7.0 Performed By: #### A 1C #### [facility] [address] [place] [address] Dr. Sary Elkins Glucose [Mass/Vol] 163 mg/dL Normal [facility] Comment on above: Performed By: #### A 1C #### [facility] [address] [place], [place] [address] Dr. Sary Elkins HbA1c (Bld) [Mass fraction] 7.3 % Critically high 4.5-6.2 [facility] Comment on above: Performed By: #### A 1C #### [facility] [address] [place], [place] [address] Dr. Sary Elkins Glucose Glucometer (BldC) [M ass/Vol]Ordered By: Rosy Pina on 05-15-2022 Glucose [Mass/Vol] 157 mg/dL [facility] Comment on above: Random Glucose Refer ence Range is dependent on time and content of last meal. Glucose of more than 200 mg/dL in a nonstressed, ambulatory subject supports the diagnosis of Diabetes Mellitus. Basophils Auto (Bld) [#/Vol] Ordered By: Rosy Pina on 05-08-2022 Basophils (Bld) [#/Vol] 0.0 10*3/uL 0.0-0.2 [facility] Basophils/100 WBC Auto (Bld) Ordered By: Rosy Pina on 05-08-2022 Basophils/100 WBC (Bld) 0.4 % . [facility] Creatinine and Glomerular fi ltration rate.predicted panel (S/P/Bld)Ordered By: Rosy Pina on 05-08-2022 Creatinine [Mass/Vol] 0.84 mg/dL 0.64-1.27 [facility] Eosinophils Auto (Bld) [#/Vo l]Ordered By: Rosy Pina on 05-08-2022 Eosinophils (Bld) [#/Vol] 0.3 10*3/uL 0.0-0.45 [facility] Eosinophils/100 WBC Auto (Bl d)Ordered By: Rosy Pina on 05-08-2022 Eosinophils/100 WBC (Bld) 5.1 % . [facility] Erythrocyte distribution wid th Auto (RBC) [Ratio]Ordered By: Rosy Pina on 05-08-2022 Erythrocyte distribution width (RBC) [Ratio] 14.3 % 12.0-14.8 [facility] Estimated glomerular filtrat ion rate (GFR) non- AmericanOrdered By: Rosy Pina on 05-08-2022 GFR/1.73 sq M.predicted among non-blacks MDRD (S/P/Bld) [Vol rate/Area] > 60 mL/Min [facility] Hematocrit Auto (Bld) [Volum e fraction]Ordered By: Rosy Pina on 05-08-2022 Hematocrit (Bld) [Volume fraction] 37.5 % 38.8-50.0 [facility] Hemoglobin [Mass/volume] in BloodOrdered By: Rosy Pina on 05-08-2022 Hemoglobin (Bld) [Mass/Vol] 12.9 g/dL 13.0-17.0 [facility] Laboratory - Hematology and Cell countsOrdered By: Rosy Pina on 05-08-2022 Nucleated RBC/100 WBC (Bld) [Ratio] 0.0 % 0-0.5 [facility] Leukocytes [#/volume] in Blo od by Automated countOrdered By: Rosy Pina on 05-08-2022 WBC (Bld) [#/Vol] 5.7 10*3/uL 4.5-11.0 [facility] Lymphocytes Auto (Bld) [#/Vo l]Ordered By: Rosy iPna on 05-08-2022 Lymphocytes (Bld) [#/Vol] 1.2 10*3/uL 1.00-4.8 [facility] Lymphocytes/100 WBC Auto (Bl d)Ordered By: Rosy Pina on 05-08-2022 Lymphocytes/100 WBC (Bld) 20.5 % . [facility] MCH Auto (RBC) [Entitic mass ]Ordered By: Rosy Pina on 05-08-2022 MCH (RBC) [Entitic mass] 31.8 pg 27.5-35.2 [facility] MCHC Auto (RBC) [Mass/Vol]Or dered By: Rosy Pina on 05-08-2022 MCHC (RBC) [Mass/Vol] 34.4 g/dL 32.5-35.6 [facility] MCV Auto (RBC) [Entitic vol] Ordered By: Rosy Pina on 05-08-2022 MCV (RBC) [Entitic vol] 92.4 fL 83.5-101 [facility] Monocytes Auto (Bld) [#/Vol] Ordered By: Rosy Pina on 05-08-2022 Monocytes (Bld) [#/Vol] 0.3 10*3/uL 0.0-0.8 [facility] Monocytes/100 WBC Auto (Bld) Ordered By: Rosy Pina on 05-08-2022 Monocytes/100 WBC (Bld) 4.5 % . [facility] Neutrophils Auto (Bld) [#/Vo l]Ordered By: Rosy Pina on 05-08-2022 Neutrophils (Bld) [#/Vol] 4.0 10*3/uL 1.8-7.7 [facility] Neutrophils/100 WBC Auto (Bl d)Ordered By: Rosy Pina on 05-08-2022 Neutrophils/100 WBC (Bld) 69.5 % . [facility] No Panel InformationOrdered By: Rosy Pina on 05-08-2022 Estimated GFR () > 60 mL/Min [facility] Comment on above: GFR estimated refere nce range: According to KDOQI guidelines, <60 ml/min/1.73m2 is sufficient to diagnose a patient with chronic kidney disease. Pharmacy Creatinine Clearance (Chem N/A [facility] Platelet mean volume Auto (B ld) [Entitic vol]Ordered By: Rosy Pina on 05-08-2022 Platelet mean volume (Bld) [Entitic vol] 6.9 fL 6.6-10.1 [facility] Platelets Auto (Bld) [#/Vol] Ordered By: Rosy Pina on 05-08-2022 Platelets (Bld) [#/Vol] 148 10*3/uL 150-450 [facility] RBC Auto (Bld) [#/Vol]Ordere d By: Rosy Pina on 05-08-2022 RBC (Bld) [#/Vol] 4.05 10*6/uL 3.90-5.[address] [facility] Serum or plasma anion gap de terminationOrdered By: Rosy Pina on 05-08-2022 Anion gap [Moles/Vol] 16.6 mmol/L 6.0-15.0 [facility] Serum or plasma calcium jose e urement (mass/volume)Ordered By: Rosy Pina on 05-08-2022 Calcium [Mass/Vol] 9.7 mg/dL 8.2-10.2 [facility] Serum or plasma chloride erika surement (moles/volume)Ordered By: Rosy Pina on 05-08-2022 Chloride [Moles/Vol] 99 mmol/L 95-114 [facility] Serum or plasma glucose jose e urement (mass/volume)Ordered By: Rosy Pina on 05-08-2022 Glucose [Mass/Vol] 132 mg/dL 70-100 [facility] Comment on above: ADA recommended refe rence rangeRandom Glucose Reference Range is dependent on time and content of last meal. Glucose of more than 200 mg/dL in a nonstressed, ambulatory subject supports the diagnosis of Diabetes Mellitus. Serum or plasma potassium me asurement (moles/volume)Ordered By: Rosy Pina on 05-08-2022 Potassium [Moles/Vol] 4.5 mmol/L 3.5-5.1 [facility] Serum or plasma sodium measu rement (moles/volume)Ordered By: Rosy Pina on 05-08-2022 Sodium [Moles/Vol] 135 mmol/L 136-146 [facility] Serum or plasma total carbon dioxide measurement (moles/volume)Ordered By: Rosy Pina on 05-08-2022 CO2 [Moles/Vol] 23.9 mmol/L 22.0-30.0 [facility] Serum or plasma urea nitroge n measurement (mass/volume)Ordered By: Rosy Pina on 05-08-2022 Urea nitrogen [Mass/Vol] 15 mg/dL - [facility] Creatinine (Bld) [Mass/Vol]O rdered By: Jermaine Mancia on 03-01-2022 Creatinine [Mass/Vol] 1.0 mg/dL 0.6-1.3 [facility] Comment on above: ER/ESD physician is notified/shown all ISTAT results. Critical values may be confirmed by laboratory testing if deemed necessary by ER attending doctor. ER/ESD physician is notified/shown all ISTAT results.Critical values may be confirmed by laboratory testing ifdeemed necessary by ER attending doctor. No Panel InformationOrdered By: Jermaine Mancia on 03-01-2022 POC Estimated GFR > 60 [facility] Comment on above: GFR estimated refere nce range: According to KDOQI guidelines, <60 ml/min/1.73m2 is sufficient to diagnose a patient with chronic kidney disease. POC Estimated GFR Non- Amer > 60 [facility] MICROALBUMIN URINEon 022 Albumin, Urine 63.5 ug/mL Normal Not Estab. [facility] Comment on above: Performed By: #### M ALBLC #### [facility] [address] [place] [address] Dr. Sary Elkins CBC AUTO DIFFon 01-17-2022 BASO # 0.1 103/ul Normal 0.0-0.1 [facility] Comment on above: Performed By: #### C BC #### [facility] [address] [address] [address] Sary Elkins Basophils/100 WBC (Bld) 0.7 % Normal 0.2-2.0 [facility] Comment on above: Performed By: #### C BC #### [facility] [address] [place] [address] Dr. Sary Elkins EO # 0.5 103/ul Normal 0.0-0.7 [facility] Comment on above: Performed By: #### C BC #### [facility] [address] [address] [address] Sary Elkins Eosinophils/100 WBC (Bld) 6.9 % Normal 0.9-7.0 [facility] Comment on above: Performed By: #### C BC #### [facility] [address] [place] [address] Dr. Sary Elkins Erythrocyte distribution width (RBC) [Ratio] 14.0 % Normal 11.0-15.0 [facility] Comment on above: Performed By: #### C BC #### [facility] [address] [place] [address] Dr. Sary Elkins Hematocrit (Bld) [Volume fraction] 34.2 % Critically low 42.0-54.0 [facility] Comment on above: Performed By: #### C BC #### [facility] [address] [place] [address] Dr. Sary Elkins Hemoglobin (Bld) [Mass/Vol] 11.8 g/dL Critically low 14.0-18.0 [facility] Comment on above: Performed By: #### C BC #### [facility] [address] [place] [address] Dr. Sary Elkins IG # 0.02 10e3/ul Normal 0.00-0.03 [facility] Comment on above: Performed By: #### C BC #### [facility] [address] [place] [address] Dr. Sary Elkins IG % 0.3 % Normal 0.0-0.5 [facility] Comment on above: Performed By: #### C BC #### [facility] [address] [place] [address] Dr. Sary Elkins LYMPH # 1.5 103/ul Normal 1.2-3.8 [facility] Comment on above: Performed By: #### C BC #### [facility] [address] [place] [address] Dr. Sary Elkins Lymphocytes/100 WBC (Bld) 21.6 % Normal 20.5-60.0 [facility] Comment on above: Performed By: #### C BC #### [facility] [address] [place] [address] Dr. Sary Elkins MANUAL DIFF REQ NO Normal [facility] Comment on above: Performed By: #### C BC #### [facility] [address] [place] [address] Dr. Sary Elkins MCH (RBC) [Entitic mass] 32.7 pg Normal 25.9-34.0 [facility] Comment on above: Performed By: #### C BC #### [facility] [address] [address] [address] Sary Elkins MCHC (RBC) [Mass/Vol] 34.5 g/dL Normal 29.9-35.2 [facility] Comment on above: Performed By: #### C BC #### [facility] [address] [address] [address] Sary Elkins MCV (RBC) [Entitic vol] 94.7 fL Critically high 80.0-94 .0 [facility] Comment on above: Performed By: #### C BC #### [facility] [address] [address] [address] Sary Elkins MONO # 0.4 103/ul Normal 0.3-0.8 [facility] Comment on above: Performed By: #### C BC #### [facility] [address] [place] [address] Dr. Sary Elkins Monocytes/100 WBC (Bld) 5.3 % Normal 1.7-12.0 [facility] Comment on above: Performed By: #### C BC #### [facility] [address] [place] [address] Dr. Sary Elkins NEUT # 4.5 103/ul Normal 1.4-6.5 [facility] Comment on above: Performed By: #### C BC #### [facility] [address] [place] [address] Dr. Sary Elkins Neutrophils/100 WBC (Bld) 65.2 % Normal 43.0-75.0 [facility] Comment on above: Performed By: #### C BC #### [facility] [address] [place] [address] Dr. Sary Elkins Platelet mean volume (Bld) [Entitic vol] 9.2 fL Critically low 9.5-13.5 [facility] Comment on above: Performed By: #### C BC #### [facility] [address] [place] [address] Dr. Sary Elkins PLT 137 103/ul Critically low 150-450 [facility] Comment on above: Performed By: #### C BC #### [facility] [address] [address] [address] Sary Elkins RBC 3.61 106/ul Critically low 4.70-6.10 [facility] Comment on above: Performed By: #### C BC #### [facility] [address] [address] [address] Sary Elkins WBC 6.8 103/ul Normal 4.0-11.0 [facility] Comment on above: Performed By: #### C BC #### [facility] [address] [address] [address] Sary Elkins GLYCOHEMOGLOBIN A1Con 2021 ADA RECOMMENDATION SEE BELOW Normal [facility] Comment on above: Result Comment: ADA RECOMMENDED LIMIT 4.0 - 6.0 ADA THERAPEUTIC TARGET < 7.0 ACTION SUGGESTED > 7.0 Performed By: #### A 1C #### [facility] [address] [place] [address] Dr. Sary Elkins Glucose [Mass/Vol] 137 mg/dL Normal [facility] Comment on above: Performed By: #### A 1C #### [facility] [address] [place] [address] Dr. Sary Elkins HbA1c (Bld) [Mass fraction] 6.4 % Critically high 4.5-6.2 [facility] Comment on above: Performed By: #### A 1C #### [facility] [address] [place] [address] Dr. Sary Elkins LIPID PROFILEon 01-17-2022 CHOL-HDL RATIO NORM SEE BELOW Normal [facility] Comment on above: Result Comment: 3.3 - 4.4 LOW RISK 4.4 - 7.1 AVERAGE RISK 7.1 - 11.0 MODERATE RISK >11.0 HIGH RISK Performed By: #### B MP, AST, ALT, LIPID #### [facility] [address] [place] [address] Dr. Sary Elkins Cholesterol [Mass/Vol] 124 mg/dL Normal <=200 [facility] Comment on above: Performed By: #### B MP, AST, ALT, LIPID #### [facility] [address] [address] [address] Sary Elkins Cholesterol in HDL [Mass/Vol] 28 mg/dL Critically low 40-60 [facility] Comment on above: Performed By: #### B MP, AST, ALT, LIPID #### [facility] [address] [address] [address] Sary Elkins Cholesterol in LDL [Mass/Vol] 41.0 mg/dL Normal [facility] Comment on above: Performed By: #### B MP, AST, ALT, LIPID #### [facility] [address] [address] [address] Sary Elkins Cholesterol.total/Kassy sterol in HDL [Mass ratio] 4.4 {ratio} Normal [facility] Comment on above: Performed By: #### B MP, AST, ALT, LIPID #### [facility] [address] [address] [address] Sary Elkins HDL NORMAL > or = 60 mg/dl - LO W CARDIOVASCULAR RISK <40 mg/dl - HIGH CARDIOVASCULAR RISK Normal [facility] Comment on above: Performed By: #### B MP, AST, ALT, LIPID #### [facility] [address] [address] [address] Sary Elkins LDL CALC NORMAL SEE BELOW Normal [facility] Comment on above: Result Comment: <100 mg/dl OPTIMAL 100 - 129 mg/dl NEAR OR ABOVE OPTIMAL 130 - 159 mg/dl BORDERLINE HIGH 160 - 189 mg/dl HIGH >190 mg/dl VERY HIGH Performed By: #### B MP, AST, ALT, LIPID #### [facility] [address] [place] [address] Dr. Sary Elkins Triglyceride [Mass/Vol] 275 mg/dL Critically high <=150 [facility] Comment on above: Performed By: #### B MP, AST, ALT, LIPID #### [facility] [address] [place] [address] Dr. Sary Elkins VLDL CALC 55.0 mg/dL Normal [facility] Comment on above: Performed By: #### B MP, AST, ALT, LIPID #### [facility] [address] [place] [address] Dr. Sary Elkins PROF CHEM 8 (BAS METB)on Anion gap [Moles/Vol] 17.0 mmol/L Normal [facility] Comment on above: Performed By: #### B MP, AST, ALT, LIPID #### [facility] [address] [place] [address] Dr. Sary Elkins Calcium [Mass/Vol] 9.0 mg/dL Normal 8.5-10.1 [facility] Comment on above: Performed By: #### B MP, AST, ALT, LIPID #### [facility] [address] [place] [address] Dr. Sary Elkins Chloride [Moles/Vol] 101 mmol/L Normal 98-107 [facility] Comment on above: Performed By: #### B MP, AST, ALT, LIPID #### [facility] [address] [place] [address] Dr. Sary Elkins CO2 [Moles/Vol] 24.7 mmol/L Normal 21.0-32.0 [facility] Comment on above: Performed By: #### B MP, AST, ALT, LIPID #### [facility] [address] [place] [address] Dr. Sary Elkins Creatinine [Mass/Vol] 1.22 mg/dL Normal 0.70-1.30 [facility] Comment on above: Performed By: #### B MP, AST, ALT, LIPID #### [facility] [address] [place] [address] Dr. Sayr Elkins EGFR-AF BELIZEAN >60 Normal >=60 [facility] Comment on above: Performed By: #### B MP, AST, ALT, LIPID #### [facility] [address] [place] [address] Dr. Sary Elkins EGFR-NON AF BELIZEAN 58 mL/min/1.73m2 Critically low >=60 [facility] Comment on above: Performed By: #### B MP, AST, ALT, LIPID #### [facility] [address] [place] [address] Dr. Sary Elkins Glucose [Mass/Vol] 155 mg/dL Critically high 74-106 [facility] Comment on above: Performed By: #### B MP, AST, ALT, LIPID #### [facility] [address] [place] [address] Dr. Sary Elkins Potassium [Moles/Vol] 4.7 mmol/L Normal 3.5-5.1 [facility] Comment on above: Performed By: #### B MP, AST, ALT, LIPID #### [facility] [address] [place] [address] Dr. Sary Elkins Sodium [Moles/Vol] 138 mmol/L Normal 136-145 [facility] Comment on above: Performed By: #### B MP, AST, ALT, LIPID #### [facility] [address] [place] [address] Dr. Sary Elkins Urea nitrogen [Mass/Vol] 25.0 mg/dL Critically high 7.0-18.0 [facility] Comment on above: Performed By: #### B MP, AST, ALT, LIPID #### [facility] [address] [place] [address] Dr. Sary Elkins Urea nitrogen/Creatinine [Mass ratio] 20.5 mg/mg Normal [facility] Comment on above: Performed By: #### B MP, AST, ALT, LIPID #### [facility] [address] [place] [address] Dr. Sary Garg 01-17-2022 AST [Catalytic activity/Vol] 23 U/L Normal 15-37 [facility] Comment on above: Performed By: #### B MP, AST, ALT, LIPID #### [facility] [address] [place] [address] Dr. Sary Elkins SGPTon 01-17-2022 ALT [Catalytic activity/Vol] 33 U/L Normal 16-63 [facility] Comment on above: Performed By: #### B MP, AST, ALT, LIPID #### [facility] [address] [place] [address] Dr. Sary Elkins XR KUB 1 VIEWon 12-16-2021 XR KUB 1 VIEW EXAMINATION: XR KUB 1 VIEW HISTORY: Lower urinary tract symptoms due to benign prostatic hypertrophy ; kidney stones COMPARISON: XR KUB 12/09/2020 FINDINGS: KIDNEY/URETER - RIGHT: No visible renal or ureteral calcifications. KIDNEY/URETER - LEFT: 2 small calcifications projecting over inferior pole of kidney. PELVIS: No visible ureteral stones. BOWEL: No abnormal dilation or deviation. BONES: No acute abnormality. OTHER: Negative. No abnormal gaseous collections. IMPRESSION: 1. Grossly stable left nephrolithiasis. Electronically authenticated by: ISABELLA FULLER Date: 2021-12-16 15:58 Normal [facility] CNCOon 11-08-2021 CNCO Letter Text Normal [facility] No Panel Information [facility] Vital Signs Date Time Vital Sign Value Performing Clinician Facility 01-02-2025 11:48-0400 Body height 188 cm Blake Ng MD Work Phone: [facility] 01-02-2025 11:48-0400 Body mass index (BMI) [Ratio] 25.16 kg/m2 Blake Ng MD Work Phone: [facility] 01-02-2025 11:48-0400 Body temperature 97.11 [degF] Blake Ng MD Work Phone: [facility] 01-02-2025 11:48-0400 Body weight 88.91 kg Blake Ng MD Work Phone: [facility] 01-02-2025 11:48-0400 Diastolic blood pressure 54 mm[Hg] Blake Ng MD Work Phone: [facility] 01-02-2025 11:48-0400 Heart rate 89 /min Blake Ng MD Work Phone: [facility] 01-02-2025 11:48-0400 Respiratory rate 18 /min Blake Ng MD Work Phone: [facility] 01-02-2025 11:48-0400 SaO2% (BldA) [Mass fraction] 98 % Blake Ng MD Work Phone: [facility] 01-02-2025 11:48-0400 Systolic blood pressure 112 mm[Hg] Blake Ng MD Work Phone: [facility] 10-20-2024 12:00-0400 Body height 188 cm Jaycob Ferguson DO Work Phone: [facility] 10-20-2024 12:00-0400 Body mass index (BMI) [Ratio] 26.71 kg/m2 Jaycob Ferguson DO Work Phone: [facility] 10-20-2024 12:00-0400 Body weight 94.35 kg Jaycob Ferguson DO Work Phone: [facility] 10-13-2024 09:16-0400 Body height 188 cm Isabella Powell DPM Work Phone: [facility] 10-13-2024 09:16-0400 Body mass index (BMI) [Ratio] 26.96 kg/m2 Isabella Powell DPM Work Phone: [facility] 10-13-2024 09:16-0400 Body weight 95.25 kg Isabella Powell DPM Work Phone: [facility] 08-05-2024 10:48-0500 Body height 188 cm Blake Ng MD Work Phone: [facility] 08-05-2024 10:48-0500 Body mass index (BMI) [Ratio] 27.09 kg/m2 Blake Ng MD Work Phone: [facility] 08-05-2024 10:48-0500 Body temperature 97.5 [degF] Blake Ng MD Work Phone: [facility] 08-05-2024 10:48-0500 Body weight 95.71 kg Blake Ng MD Work Phone: [facility] 08-05-2024 10:48-0500 Diastolic blood pressure 58 mm[Hg] Blake Ng MD Work Phone: [facility] 08-05-2024 10:48-0500 Heart rate 85 /min Blake Ng MD Work Phone: [facility] 08-05-2024 10:48-0500 Respiratory rate 18 /min Blake Ng MD Work Phone: [facility] 08-05-2024 10:48-0500 SaO2% (BldA) [Mass fraction] 97 % Blake Ng MD Work Phone: [facility] 08-05-2024 10:48-0500 Systolic blood pressure 122 mm[Hg] Blake Ng MD Work Phone: [facility] 07-07-2024 09:40-0500 Body height 188 cm Isabella Swan DPM Work Phone: [facility] 07-07-2024 09:40-0500 Body mass index (BMI) [Ratio] 26.06 kg/m2 Isabella Powell DPM Work Phone: [facility] 07-07-2024 09:40-0500 Body weight 92.08 kg Isabella Swan DPM Work Phone: [facility] 06-20-2024 09:29-0500 Body height 188 cm Blake Ng MD Work Phone: [facility] 06-20-2024 09:29-0500 Body mass index (BMI) [Ratio] 26.06 kg/m2 Blake Ng MD Work Phone: [facility] 06-20-2024 09:29-0500 Body temperature 98.01 [degF] Blake Ng MD Work Phone: [facility] 06-20-2024 09:29-0500 Body weight 92.08 kg Blake Ng MD Work Phone: [facility] 06-20-2024 09:29-0500 Diastolic blood pressure 62 mm[Hg] Blake Ng MD Work Phone: [facility] 06-20-2024 09:29-0500 Heart rate 96 /min Blake Ng MD Work Phone: [facility] 06-20-2024 09:29-0500 Respiratory rate 22 /min Blake Ng MD Work Phone: [facility] 06-20-2024 09:29-0500 SaO2% (BldA) [Mass fraction] 98 % Blake Ng MD Work Phone: [facility] 06-20-2024 09:29-0500 Systolic blood pressure 160 mm[Hg] Blake Ng MD Work Phone: [facility] 05-15-2024 09:41-0500 Body height 188 cm Isabella Rusher DPM Work Phone: [facility] 05-15-2024 09:41-0500 Body mass index (BMI) [Ratio] 25.42 kg/m2 Isabella Rusher DPM Work Phone: [facility] 05-15-2024 09:41-0500 Body weight 89.81 kg Isabella Rusher DPM Work Phone: [facility] 04-14-2024 14:52-0500 Body height 188 cm Isabella Rusher DPM Work Phone: [facility] 04-14-2024 14:52-0500 Body mass index (BMI) [Ratio] 25.42 kg/m2 Isabella Rusher DPM Work Phone: [facility] 04-14-2024 14:52-0500 Body weight 89.81 kg Isabella Rusher DPM Work Phone: [facility] 04-02-2024 13:23-0400 Body height 188 cm Isabella Rusher DPM Work Phone: [facility] 04-02-2024 13:23-0400 Body mass index (BMI) [Ratio] 25.42 kg/m2 Isabella Rusher DPM Work Phone: [facility] 04-02-2024 13:23-0400 Body weight 89.81 kg Isabella Rusher DPM Work Phone: [facility] 03-26-2024 14:22-0400 Body height 188 cm Isabella Rusher DPM Work Phone: [facility] 03-26-2024 14:22-0400 Body mass index (BMI) [Ratio] 25.42 kg/m2 Isabella Powell DPM Work Phone: [facility] 03-26-2024 14:22-0400 Body weight 89.81 kg Isabella Powell DPM Work Phone: [facility] 03-24-2024 08:30-0400 Body height 188 cm Isabella Powell DPM Work Phone: [facility] 03-24-2024 08:30-0400 Body mass index (BMI) [Ratio] 25.42 kg/m2 Isabella Powell DPM Work Phone: [facility] 03-24-2024 08:30-0400 Body weight 89.81 kg Isabella Powell DPM Work Phone: [facility] 01-10-2024 10:36-0400 Body weight 89.81 kg MD Blake Ng Work Phone: [facility] 01-10-2024 10:36-0400 Diastolic blood pressure 69 mm[Hg] MD Blake Ng Work Phone: [facility] 01-10-2024 10:36-0400 Heart rate 83 /min MD Blake Ng Work Phone: [facility] 01-10-2024 10:36-0400 Respiratory rate 18 /min MD Blake Ng Work Phone: [facility] 01-10-2024 10:36-0400 SaO2% (BldA) [Mass fraction] 98 % MD Blake Ng Work Phone: [facility] 01-10-2024 10:36-0400 Systolic blood pressure 130 mm[Hg] MD Blake Ng Work Phone: [facility] 12-28-2023 09:39-0400 Blood Pressure Location Jermaine MIKEY [facility] 12-28-2023 09:39-0400 Body temperature 98.6 [degF] Jermaine MANCIA [facility] 12-28-2023 09:39-0400 Diastolic blood pressure 69 mm[Hg] Jermaine MANCIA [facility] 12-28-2023 09:39-0400 Heart rate 80 /min Jermaine MANCIA [facility] 12-28-2023 09:39-0400 Respiratory rate 16 /min Jermaineroland MANCIA [facility] 12-28-2023 09:39-0400 Systolic blood pressure 131 mm[Hg] Jermaine MANCIA [facility] 09-18-2023 10:01-0400 Body temperature 97.9 [degF] MD Blake Ng Work Phone: [facility] 09-18-2023 10:01-0400 Body weight 99.33 kg MD Blake Ng Work Phone: [facility] 09-18-2023 10:01-0400 Diastolic blood pressure 88 mm[Hg] MD Blake Ng Work Phone: [facility] 09-18-2023 10:01-0400 Heart rate 89 /min MD Blake Ng Work Phone: [facility] 09-18-2023 10:01-0400 Respiratory rate 16 /min MD Blake Ng Work Phone: [facility] 09-18-2023 10:01-0400 SaO2% (BldA) [Mass fraction] 94 % MD Blake Ng Work Phone: [facility] 09-18-2023 10:01-0400 Systolic blood pressure 168 mm[Hg] MD Blake Ng Work Phone: [facility] 08-22-2023 14:28-0400 Diastolic blood pressure 73 mm[Hg] MD Blake Ng Work Phone: [facility] 08-22-2023 14:28-0400 Heart rate 77 /min MD Blake Ng Work Phone: [facility] 08-22-2023 14:28-0400 Systolic blood pressure 144 mm[Hg] MD Blake Ng Work Phone: [facility] 06-13-2023 09:59-0500 Body temperature 97.8 [degF] MD Blake Ng Work Phone: [facility] 06-13-2023 09:59-0500 Body weight 97.06 kg MD Blake Ng Work Phone: [facility] 06-13-2023 09:59-0500 Diastolic blood pressure 84 mm[Hg] MD Blake Ng Work Phone: [facility] 06-13-2023 09:59-0500 Heart rate 84 /min MD Blake Ng Work Phone: [facility] 06-13-2023 09:59-0500 Respiratory rate 16 /min MD Blake Ng Work Phone: [facility] 06-13-2023 09:59-0500 SaO2% (BldA) [Mass fraction] 98 % MD Blake Ng Work Phone: [facility] 06-13-2023 09:59-0500 Systolic blood pressure 175 mm[Hg] MD Blake Ng Work Phone: [facility] 12-13-2022 09:33-0400 Body temperature 97.8 [degF] MD Blake Ng Work Phone: [facility] 12-13-2022 09:33-0400 Body weight 93.89 kg MD Blake Ng Work Phone: [facility] 12-13-2022 09:33-0400 Diastolic blood pressure 77 mm[Hg] MD Blake Ng Work Phone: [facility] 12-13-2022 09:33-0400 Heart rate 79 /min MD Blake Ng Work Phone: [facility] 12-13-2022 09:33-0400 Respiratory rate 18 /min MD Blake Ng Work Phone: [facility] 12-13-2022 09:33-0400 SaO2% (BldA) [Mass fraction] 98 % MD Blake Ng Work Phone: [facility] 12-13-2022 09:33-0400 Systolic blood pressure 150 mm[Hg] MD Blake Ng Work Phone: [facility] 09-11-2022 12:54-0400 Body temperature 98.1 [degF] MD Blake Ng Work Phone: [facility] 09-11-2022 12:54-0400 Body weight 97.52 kg MD Blake Ng Work Phone: [facility] 09-11-2022 12:54-0400 Diastolic blood pressure 89 mm[Hg] MD Blake Ng Work Phone: [facility] 09-11-2022 12:54-0400 Heart rate 85 /min MD Blake Ng Work Phone: [facility] 09-11-2022 12:54-0400 Respiratory rate 18 /min MD Blake Ng Work Phone: [facility] 09-11-2022 12:54-0400 SaO2% (BldA) [Mass fraction] 97 % MD Blake Ng Work Phone: [facility] 09-11-2022 12:54-0400 Systolic blood pressure 150 mm[Hg] MD Blake Ng Work Phone: [facility] 07-12-2022 09:42-0500 Body temperature 97.8 [degF] MD Blake Ng Work Phone: [facility] 07-12-2022 09:42-0500 Body weight 96.2 kg MD Blake Ng Work Phone: [facility] 07-12-2022 09:42-0500 Diastolic blood pressure 79 mm[Hg] MD Blake Ng Work Phone: [facility] 07-12-2022 09:42-0500 Heart rate 86 /min MD Blake Ng Work Phone: [facility] 07-12-2022 09:42-0500 Respiratory rate 18 /min MD Blake Ng Work Phone: [facility] 07-12-2022 09:42-0500 SaO2% (BldA) [Mass fraction] 99 % MD Blake Ng Work Phone: [facility] 07-12-2022 09:42-0500 Systolic blood pressure 146 mm[Hg] MD Blake Ng Work Phone: [facility] 05-15-2022 08:50-0500 Diastolic blood pressure 89 mm[Hg] MD Blake Ng Work Phone: [facility] 05-15-2022 08:50-0500 Heart rate 91 /min MD Blake Ng Work Phone: [facility] 05-15-2022 08:50-0500 Respiratory rate 16 /min MD Blake Ng Work Phone: [facility] 05-15-2022 08:50-0500 SaO2% (BldA) [Mass fraction] 96 % MD Blake Ng Work Phone: [facility] 05-15-2022 08:50-0500 Systolic blood pressure 131 mm[Hg] MD Blake Ng Work Phone: [facility] 05-15-2022 07:17-0500 Body height 187.96 cm MD Blake Ng Work Phone: [facility] 05-15-2022 07:17-0500 Body mass index (BMI) [Ratio] 26.6 kg/m2 MD Blake Ng Work Phone: [facility] 05-15-2022 07:17-0500 Body weight 94.1 kg MD Blake Ng Work Phone: [facility] 05-15-2022 06:05-0500 Body temperature 98 [degF] MD Blake Ng Work Phone: [facility] 04-27-2022 13:38-0500 Body height 187.96 cm MD Blake Ng Work Phone: [facility] 04-27-2022 09:42-0500 Body height 187.96 cm MD Blake Ng Work Phone: [facility] 04-27-2022 09:42-0500 Body temperature 98 [degF] MD Blake Ng Work Phone: [facility] 04-27-2022 09:42-0500 Body weight 95.8 kg MD Blake Ng Work Phone: [facility] 04-27-2022 09:42-0500 Diastolic blood pressure 84 mm[Hg] MD Blake Ng Work Phone: [facility] 04-27-2022 09:42-0500 Heart rate 81 /min MD Blake Ng Work Phone: [facility] 04-27-2022 09:42-0500 Respiratory rate 18 /min MD Blake gN Work Phone: [facility] 04-27-2022 09:42-0500 SaO2% (BldA) [Mass fraction] 98 % MD Blake Ng Work Phone: [facility] 04-27-2022 09:42-0500 Systolic blood pressure 154 mm[Hg] MD Blake Ng Work Phone: [facility] 04-14-2022 10:35-0400 Blood Pressure Location Jermaineroland MANCIA [facility] 04-14-2022 10:35-0400 Diastolic blood pressure 74 mm[Hg] Jermaine MANCIA [facility] 04-14-2022 10:35-0400 Heart rate 56 /min Jermaine MANCIA [facility] 04-14-2022 10:35-0400 Respiratory rate 16 /min Jermaine MANCIA [facility] 04-14-2022 10:35-0400 Systolic blood pressure 136 mm[Hg] Jermaine MANCIA [facility] 12-23-2021 08:14-0400 Blood Pressure Location Jermaine MANCIA [facility] 12-23-2021 08:14-0400 Diastolic blood pressure 75 mm[Hg] Jermaine MANCIA [facility] 12-23-2021 08:14-0400 Heart rate 80 /min Jermaine MANCIA [facility] 12-23-2021 08:14-0400 Respiratory rate 16 /min Jermaine MANCIA [facility] 12-23-2021 08:14-0400 Systolic blood pressure 134 mm[Hg] Jermaine MANCIA [facility] Encounters Encounter Date Encounter Type Care Provider Facility Start: 01-08-2025 ambulatory Jermaine MANCIA Facili ty:[id number] Start: 01-02-2025 End: 01-02-2025 Bamboo flowsheet Blake Ng MD Work Phone: [facility] Start: 01-02-2025 End: 01-02-2025 Bamboo flowsheet Blake Ng MD Work Phone: [facility] Start: 01-02-2025 End: 01-02-2025 Office outpatient visit 25 minutes Blake Ng MD Work Phone: [facility] Comment on above: Preoperative clearan ce (Primary Dx); Other chest pain; Abnormal EKG; Renal calculi; Thrombocytopenia; Type 2 diabetes mellitus with hyperglycemia, with long-term current use of insulin (HCC); Benign essential hypertension Start: 01-02-2025 End: 01-02-2025 Preoperative state Blake Ng MD Work Phone: [facility] Start: 01-02-2025 End: 01-02-2025 ambulatory BLAKE NG Not Available Start: 12-30-2024 End: 12-31-2024 Clinisync Result Encounter Generic External Data Provider [facility] Unsolicited Start: 12-30-2024 End: 12-31-2024 Clinisync Result Encounter Generic External Data Provider [facility] External [facility] Unsolicited Start: 12-29-2024 End: 12-29-2024 ambulatory Jermaine MANCIA [place] Start: 12-29-2024 End: 12-29-2024 ambulatory Jermaine MANCIA Facility:[facility] Start: 12-29-2024 End: 12-29-2024 Patient encounter procedure Jermaine MANCIA [facility] Start: 12-24-2024 End: 12-24-2024 Patient encounter procedure Jermaine Mancia MD -[facility] Work Phone: Start: 12-24-2024 End: 12-24-2024 ambulatory Blake gN MD Work Phone: [facility] Work Phone: Start: 11-04-2024 End: 11-04-2024 Patient encounter procedure Counts Include [facility] Physician [facility] Work Phone: Start: 11-04-2024 End: 11-04-2024 ambulatory Jermaine Mancia [facility] Work Phone: Start: 10-20-2024 End: 10-20-2024 Patient encounter procedure Jaycob Ferguson DO Work Phone: [facility] Comment on above: Left elbow pain (Miranda tre Dx) Start: 10-20-2024 End: 10-20-2024 ambulatory JAYCOB FERGUSON Not Available Start: 10-20-2024 End: 10-20-2024 ambulatory JAYCOB FERGUSON Not Available Start: 10-13-2024 End: 10-13-2024 Bamboo flowsheet Isabella Powell DPM Work Phone: [facility] Start: 10-13-2024 End: 10-13-2024 Bamboo flowsheet Isabella Powell DPM Work Phone: [facility] Start: 10-13-2024 End: 10-13-2024 Patient encounter procedure Isabella Powell DPM Work Phone: [facility] Comment on above: Dermatophytosis of n ail (Primary Dx); Dystrophic nail; Diabetic polyneuropathy associated with type 2 diabetes mellitus (CMS/HCC); Encounter for long-term (current) use of insulin (CMS/[facility]) Start: 10-13-2024 End: 10-13-2024 ambulatory ISABELLA POWELL Not Available Start: 08-07-2024 End: 08-07-2024 Orders Only Blake Ng MD Work Phone: [facility] Comment on above: Hypomagnesemia (Prim kirk Dx) Start: 08-06-2024 End: 08-07-2024 External Result Encounter Blake Ng MD Work Phone: [facility] Unsolicited Start: 08-06-2024 End: 08-07-2024 External Result Encounter Blake Ng MD Work Phone: [facility] Unsolicited Start: 08-06-2024 End: 08-06-2024 Patient encounter procedure Blake Ng MD Work Phone: [facility] [place] Work Phone: Start: 08-06-2024 End: 08-06-2024 ambulatory Blake Ng MD Work Phone: [facility] Work Phone: Start: 08-05-2024 End: 08-05-2024 Bamboo flowsheet Blake Ng MD Work Phone: [facility] Start: 08-05-2024 End: 08-05-2024 Bamboo flowsheet Blake Ng MD Work Phone: [facility] Start: 08-05-2024 End: 08-05-2024 Office outpatient visit 15 minutes Blake Ng MD Work Phone: [facility] Comment on above: Medicare annual well ness visit, subsequent (Primary Dx); Nocturnal leg cramps; Pruritus; Type 2 diabetes mellitus with hyperglycemia, with long-term current use of insulin (CMS/HCC); Benign essential hypertension (CMS/HCC); Encounter for long-term current use of medication Start: 08-05-2024 End: 08-05-2024 Patient encounter procedure Blake Ng MD Work Phone: [facility] Work Phone: Start: 08-05-2024 End: 08-05-2024 ambulatory BLAKE NG Not Available Start: 07-21-2024 End: 07-21-2024 Bamboo flowsheet Symone Calero MD Work Phone: [facility] Start: 07-21-2024 End: 07-21-2024 Bamboo flowsjacque Calero MD Work Phone: [facility] Start: 07-21-2024 End: 07-21-2024 Office outpatient visit 15 minutes Symone Calero MD Work Phone: [facility] Comment on above: Melanocytic nevus of trunk (Primary Dx); Seborrheic keratosis; Lentigines; Actinic keratosis; Capillary angioma; Melanocytic nevus of face, other location; Epidermal inclusion cyst; Nummular eczema Start: 07-21-2024 End: 07-21-2024 ambulatory SYMONE CALERO Not Available Start: 07-07-2024 End: 07-07-2024 Bamboo flowsheet Isabella Powell DPM Work Phone: [facility] Start: 07-07-2024 End: 07-07-2024 Bamboo flowsheet Isabella Powell DPM Work Phone: [facility] Start: 07-07-2024 End: 07-07-2024 Patient encounter procedure Isabella Powell DPM Work Phone: [facility] Comment on above: Dermatophytosis of n ail (Primary Dx); Dystrophic nail; Diabetic polyneuropathy associated with type 2 diabetes mellitus ([facility]/HCC); 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 Comment on above: Acute non-recurrent maxillary sinusitis (Primary Dx); Type 2 diabetes mellitus with hyperglycemia, with long-term current use of insulin ([facility]) Start: 06-20-2024 End: 06-20-2024 ambulatory BLAKE NG Not Available Start: 05-15-2024 End: 05-15-2024 Bamboo flowsheet Isabella Powell DPM Work Phone: [facility] Start: 05-15-2024 End: 05-15-2024 Bamboo flowsheet Isabella Powell DPM Work Phone: [facility] Start: 05-15-2024 End: 05-15-2024 ambulatory ISABELLA POWELL Not Available Start: 05-15-2024 End: 05-15-2024 Office outpatient visit 15 minutes Isabella Powell DPM Work Phone: [facility] Comment on above: Type 2 diabetes enmanuel itus with Charcot joint of left foot ([facility]/HCC) (Primary Dx); Diabetic polyneuropathy associated with type 2 diabetes mellitus ([facility]/HCC); Swelling of left foot; Encounter for long-term (current) use of insulin ([facility]) Start: 05-15-2024 End: 05-15-2024 ambulatory ISABELLA POWELL Not Available Start: 04-21-2024 End: 04-21-2024 Telephone encounter Isabella Powell DPM Work Phone: [facility] Comment on above: Advice Only Start: 04-14-2024 End: 04-14-2024 ambulatory ISABELLA POWELL Not Available Start: 04-14-2024 End: 04-14-2024 ambulatory ISABELLA POWELL Not Available Start: 04-14-2024 End: 04-14-2024 Office outpatient visit 25 minutes Isabella Powell DPM Work Phone: [facility] Comment on above: Type 2 diabetes enmanuel itus with Charcot joint of left foot ([facility]/HCC) (Primary Dx); Diabetic polyneuropathy associated with type 2 diabetes mellitus ([facility]); Swelling of left foot; Encounter for long-term (current) use of insulin ([facility]) Start: 04-14-2024 End: 04-14-2024 Bamboo flowsheet Isabella Powell DPM Work Phone: [facility] Start: 04-14-2024 End: 04-14-2024 Bamboo flowsheet Isabella Powell DPM Work Phone: [facility] Start: 04-06-2024 End: 04-07-2024 Refill Blake Ng MD Work Phone: [facility] Comment on above: Type 2 diabetes enmanuel itus with hyperglycemia, with long-term current use of insulin ([facility]) (Primary Dx) Start: 04-02-2024 End: 04-02-2024 Bamboo flowsheet Isabella Powell DPM Work Phone: [facility] Start: 04-02-2024 End: 04-02-2024 Bamboo flowsheet Isabella Powell DPM Work Phone: [facility] Start: 04-02-2024 End: 04-02-2024 Patient encounter procedure Isabella Powell DPM Work Phone: [facility] Comment on above: Diabetic polyneuropa thy associated with type 2 diabetes mellitus ([facility]/HCC) (Primary Dx); Encounter for long-term (current) use of insulin ([facility]) Start: 04-02-2024 End: 04-02-2024 ambulatory ISABELLA POWELL Not Available Start: 04-01-2024 End: 04-01-2024 Bamboo flowsheet Isabella Powell DPM Work Phone: [facility] Start: 04-01-2024 End: 04-01-2024 Bamboo flowsheet Isabella Powell DPM Work Phone: [facility] Start: 03-26-2024 End: 03-26-2024 Postop follow up visit related to original px Isabella Powell DPM Work Phone: [facility] Comment on above: Diabetic polyneuropa thy associated with type 2 diabetes mellitus (CMS/HCC) (Primary Dx); Encounter for long-term (current) use of insulin (CMS/HCC) Start: 03-26-2024 End: 03-26-2024 ambulatory ISABELLA POWELL Not Available Start: 03-26-2024 End: 03-26-2024 Bamboo flowsheet Isabella Powell DPM Work Phone: [facility] Start: 03-26-2024 End: 03-26-2024 Bamboo flowsheet Isabella Powell DPM Work Phone: [facility] Start: 03-24-2024 End: 03-24-2024 Bamboo flowsheet Isabella Powell DPM Work Phone: [facility] Start: 03-24-2024 End: 03-24-2024 Bamboo flowsheet Isabella Powell DPM Work Phone: [facility] Start: 03-24-2024 End: 03-24-2024 Patient encounter procedure Isabella Powell DPM Work Phone: [facility] Comment on above: Dermatophytosis of n ail (Primary Dx); Dystrophic nail; Diabetic polyneuropathy associated with type 2 diabetes mellitus (CMS/HCC); Encounter for long-term (current) use of insulin (CMS/HCC) Start: 03-24-2024 End: 03-24-2024 ambulatory ISABELLA POWELL Not Available Start: 01-28-2024 End: 01-28-2024 ambulatory BLAKE GN Not Available Start: 01-25-2024 End: 01-25-2024 Patient encounter procedure MD Blake Ng Work Phone: [facility] [place] Work Phone: Start: 01-25-2024 End: 01-25-2024 ambulatory MD Blake Ng Work Phone: [facility] Work Phone: Start: 01-10-2024 End: 01-10-2024 ambulatory MD Blake Ng Work Phone: [facility] Work Phone: Start: 01-10-2024 End: 01-10-2024 Patient encounter procedure MD Blake Ng Work Phone: [facility] Work Phone: Start: 01-10-2024 Registered Recurring MD Blake arredondo [facility] Phone: [facility] Work Phone: Start: 12-28-2023 End: 12-28-2023 Patient encounter procedure Jermaine MANCIA [facility] Start: 12-19-2023 End: 12-19-2023 ambulatory MD Blake Ng Work Phone: [facility] Work Phone: Start: 12-19-2023 End: 12-19-2023 Patient encounter procedure MD Blake Ng Work Phone: [facility] [place] Work Phone: Start: 09-18-2023 End: 09-18-2023 ambulatory MD lBake Ng Work Phone: [facility] Work Phone: Start: 09-18-2023 End: 09-18-2023 Patient encounter procedure MD Blake Ng Work Phone: [facility] Work Phone: Start: 09-18-2023 Registered Recurring MD Blake arredondo Work Phone: [facility] Work Phone: Start: 08-22-2023 End: 08-22-2023 ambulatory MD Blake Ng Work Phone: [facility] Work Phone: Start: 08-22-2023 End: 08-22-2023 Patient encounter procedure MD Blake Ng Work Phone: [facility] Work Phone: Start: 07-19-2023 Bamboo flowsheet Symone jauregui MD Work Phone: [facility] Start: 07-19-2023 Bamboo flowsheet Symone jauregui MD Work Phone: [facility] Start: 07-19-2023 End: 07-19-2023 Office outpatient visit 25 minutes Symone Calero MD Work Phone: [facility] Comment on above: Nummular eczema (Miranda tre Dx); Seborrheic keratosis; Melanocytic nevus of trunk; Lentigines; Angioma of skin; History of actinic keratoses Start: 06-13-2023 Registered Recurring MD Blake arredondo Work Phone: [facility] Work Phone: Start: 12-13-2022 End: 12-13-2022 ambulatory MD Blake Ng Work Phone: [facility] Work Phone: Start: 12-13-2022 End: 12-13-2022 Registered Recurring MD Blake Ng [facility] Phone[facility] Work Phone: Start: 12-05-2022 End: 12-05-2022 ambulatory MD Blake Ng Work Phone: [facility] Work Phone: Start: 12-05-2022 End: 12-05-2022 Patient encounter procedure MD Blake Ng Work Phone: [facility] [place] Work Phone: Start: 09-11-2022 End: 09-11-2022 ambulatory MD Blake Ng Work Phone: [facility] Work Phone: Start: 09-11-2022 End: 09-11-2022 Registered Recurring MD Blake Ng Work Phone: [facility] Work Phone: Start: 07-27-2022 End: 07-28-[address] BLAKE NG Facility: Start: 07-12-2022 End: 07-12-2022 ambulatory MD Blake Ng Work Phone: [facility] Work Phone: Start: 07-12-2022 End: 07-12-2022 Registered Recurring MD Blake Ng Work Phone: [facility] Work Phone: Start: 05-15-2022 End: 05-15-2022 Admission to same day surgery center MD Blake Ng Work Phone: [facility] [place] Start: 05-15-2022 End: 05-15-2022 ambulatory MD Blake Ng Work Phone: [facility] Work Phone: Start: 05-08-2022 End: 05-08-2022 ambulatory MD Blake Ng Work Phone: [facility] Work Phone: Start: 05-08-2022 End: 05-08-2022 Patient encounter procedure MD Blake Ng Work Phone: [facility] Start: 05-08-2022 Registered Recurring MD Blake arredondo Work Phone: [facility] Start: 04-27-2022 End: 04-27-2022 ambulatory MD Blake Ng Work Phone: [facility] Work Phone: Start: 04-27-2022 End: 04-27-2022 Registered Recurring MD Blake Ng Work Phone: [facility] Start: 04-14-2022 End: 04-14-2022 Patient encounter procedure Jermaine MANCIA [facility] Start: 03-28-2022 End: 03-28-2022 Patient encounter procedure Jermaine MANCIA [facility] Start: 03-01-2022 End: 03-01-2022 Patient encounter procedure MD Jermaine Mancia Work Phone: [facility] [place] Start: 01-17-2022 End: 01-18-[address] BLAKE NG Facility:[facility] Start: 12-23-2021 End: 12-23-2021 Patient encounter procedure Jermaine MANCIA [facility] Start: 12-16-2021 End: 12-17-[address] JERMAINE MANCIA . Facility:[facility] Start: 10-25-2021 End: 10-25-2021 Patient encounter procedure Haroldo Sebastian MD Work Phone: Ophthalmology Comment on above: Iris nevus, left (Pr imary Dx); Dislocation of intraocular lens, sequela Start: 09-10-2017 End: 09-11-2017 Ambulatory DEFAULT PHYSICIAN Facility:[facility] Procedures Date Procedure Procedure Detail Performing Clinician Start: 12-30-2024 CT ABDOMEN/PELVIS WO CONT Generic External Data Provider Start: 12-30-2024 ALL BASIC METABOLIC PANEL Generic External Data Provider Start: 12-30-2024 ECG 12-LEAD Generic Ex ternal Data Provider Start: 12-24-2024 Supine abdominal X-ray Blake Ng MD Work Phone: Start: 10-20-2024 Radex elbow complete minimum 3 views Jaycob Florecita Ferguson DO Work Phone: Start: 08-06-2024 Urine albumin quantitative Blake Ng MD Work Phone: Start: 08-06-2024 Basic metabolic pane l calcium total Blake Ng MD Work Phone: Start: 07-21-2024 CRYOTHERAPY SKIN LESION Symone Calero MD Work Phone: Start: 05-15-2024 Radex foot complete minimum 3 views Isabella Powell DPM Work Phone: Start: 04-14-2024 Radex foot complete minimum 3 views Isabella Powell DPM Work Phone: Start: 12-19-2023 Diagnostic radiograp hy of abdomen MD Blake Ng Work Phone: Start: 08-22-2023 Radionuclide myocard ial perfusion stress study MD Blake Ng Work Phone: Start: 12-25-2022 H/O: artificial joint Presence of right artificial shoulder joint Symone Calero MD Work Phone: Start: 12-05-2022 Diagnostic radiograp hy of abdomen MD Blake Ng Work Phone: Start: 07-11-2022 Mixed beam external beam radiation therapy Jermaine MANCIA Start: 05-18-2022 MR prostate wo/w con MD Blake Ng Work Phone: Start: 05-15-2022 Injection of substance MD Blake Ng Work Phone: Start: 05-15-2022 Colonoscopy MD Blake gamez Work Phone: Start: 03-28-2022 MRI-US fusion guided transperineal biopsy of prostate Jermaine MANCIA Start: 03-01-2022 MR prostate wo/w mahnaz Ng Work Phone: Start: 12-16-[address] BLAKE ARREDONDO Comment on above: Performed By: #### P SAD #### [facility] [address] [place] [address] Dr. Sary Elkins Start: 10-25-2021 Oph us dx ant sgm us immersion b-scan/hr biom Haroldo Sebastian MD Work Phone: Start: 10-25-2021 End: 10-25-2021 Xtrnl ocular photog w/i&r docmt medical progre Haroldo Sebastian MD Work Phone: Start: 05-13-2018 Arthroplasty of shoulder Jermaine MANCIA Comment on above: REVERSE RIGHT TOTAL SHOULDER ARTHROPLASTY, BICEP TENODESIS Start: 10-13-2008 Lithotripsy Jermaine RIZZO TERS Comment on above: ESWL * 08/13/08, , 10/22/08, 11/26/08, 10/01/08 12/26/12 * Left ESWL Dissection tonsillec rubén and adenoidectomy Jermaine MANCIA knee arthroscopy wit th meniscus repair 5 Jermaine MANCIA Comment on above: left Ostectomy of calcane us for spur Jermaine MANCIA Comment on above: THINKS IT WAS LEFT Placement of stent Jermaine W ATERS Comment on above: Cysto, stent placeme nt * 10/16/08, 08/10/08 Removal of stent Jermaine PATTEN Comment on above: Cysto, stent removal * 09/01/08 Renal lithotripsy Jermaine WA TERS Comment on above: X5 Tonsillectomy Jermaine MANCIA Plan of Treatment Date Care Activity Detail Author Start: 08-14-2025 Glaucoma screening Diabetes: R etinopathy Screening [facility] Start: 08-06-2025 Urine screening for protein Diabetes: Urine Protein Screening [facility] Start: 08-05-2025 Medicare Annual Wellness (AWV) Medicare Annual Wellness (AWV) [facility] Start: 07-28-2025 End: 07-28-2025 Patient encounter procedure 07/28/2025 9:45 AM EST [facility] [address] [place] [id number] Symone Calero MD [address] [place] [address] [facility] Start: 02-09-2025 Influenza vaccination Influenza Vacc ine (#1) [facility] Start: 02-03-2025 Hemoglobin A1c measurement Diabetes: Hemoglobin A1C [facility] Start: 02-03-2025 End: 02-03-2025 Patient encounter procedure 02/03/2025 10:30 AM EDT [facility] [address] [facility] [address] [place] [address] Blake Ng MD [address] [place] [address] [facility] Start: 01-26-2025 End: 01-26-2025 Patient encounter procedure 01/26/2025 9:15 AM EDT Procedure Visit [facility] [address] [place] [phone] Isabella Powell DPM [address] [place], [place] [id number] [facility] Start: 01-02-2025 End: 01-02-2027 NM Heart Perfusion W single state of exercise Stress test with myocardial perfusion Cardiac Nuclear Medicine Routine Other chest pain Abnormal EKG Expected: 01/02/2025 (Approximate), Expires: 01/02/2027 [facility] Work Phone: Comment on above: Expected: 01/02/2025 (Approximate), Expires: 01/02/2027 Start: 01-02-2025 End: 01-02-2025 Patient encounter procedure 01/02/2025 11:45 AM EDT Office Visit [facility] [address] [place] [address] Blake Ng MD [address] [place] [address] Arrived [facility] Comment on above: Arrived Start: 10-13-2024 End: 10-13-2024 Patient encounter procedure [facility] Comment on above: Arrived Start: 08-07-2024 Urine screening for protein Diabetes: Urine Protein Screening [facility] [facility] Start: 08-06-2024 [facility] Start: 08-05-2024 End: 08-05-2025 Basic metabolic 1998 panel - Serum or Plasma Basic metabolic panel Lab Routine Encounter for long-term current use of medication Expected: 08/05/2024 (Approximate), Expires: 08/05/2025 [facility] Comment on above: Expected: 08/05/2024 (Approximate), Expires: 08/05/2025 Start: 08-05-2024 End: 08-05-2025 Hemoglobin A1c/Hemoglobin.total in Blood Hemoglobin A1c Lab Routine Type 2 diabetes mellitus with hyperglycemia, with long-term current use of insulin ([facility]) Expected: 08/05/2024 (Approximate), Expires: 08/05/2025 [facility] Work Phone: Comment on above: Expected: 08/05/2024 (Approximate), Expires: 08/05/2025 Start: 08-05-2024 End: 08-05-2025 Magnesium [Mass/volume] in Serum or Plasma Magnesium Lab Routine Encounter for long-term current use of medication Expected: 08/05/2024 (Approximate), Expires: 08/05/2025 [facility] Comment on above: Expected: 08/05/2024 (Approximate), Expires: 08/05/2025 Start: 08-05-2024 End: 08-05-2025 Microalbumin/Creatinine panel in random Urine Microalbumin / creatinine, urine ratio Lab Routine Type 2 diabetes mellitus with hyperglycemia, with long-term current use of insulin ([facility]) Expected: 08/05/2024 (Approximate), Expires: 08/05/2025 [facility] Comment on above: Expected: 08/05/2024 (Approximate), Expires: 08/05/2025 Start: 08-05-2024 End: 08-05-2024 Patient encounter procedure [facility] Comment on above: Arrived Start: 08-01-2024 Hemoglobin A1c measurement Diabetes: Hemoglobin A1C [facility] Start: 07-21-2024 End: 07-21-2024 Patient encounter procedure [facility] Comment on above: Arrived Start: 07-16-2024 Glaucoma screening Diabetes: R etinopathy Screening [facility] Start: 07-07-2024 End: 07-07-2024 Patient encounter procedure [facility] Comment on above: Arrived Start: 06-20-2024 End: 06-20-2024 Patient encounter procedure 06/20/2024 9:15 AM EST Office Visit [facility] [address] [place] [address] Blake Ng MD [address] [place] [address] [facility] Start: 05-15-2024 End: 05-15-2024 Patient encounter procedure [facility] Comment on above: Arrived Start: 05-01-2024 Hemoglobin A1c measurement Diabetes: Hemoglobin A1C [facility] Start: 04-24-2024 End: 04-24-2024 Patient encounter procedure 04/24/2024 9:30 AM EST Office Visit [facility] [address] [place] [id number] Isabella Powell DPM [address] [place], [place] [id number] [facility] Start: 04-23-2024 End: 04-23-2024 Patient encounter procedure 04/23/2024 11:15 AM EST Office Visit [facility] [address] [place] [address] Isabella Powell DPM [address] [place] [address] [facility] Start: 04-02-2024 End: 04-02-2024 Patient encounter procedure 04/02/2024 1:30 PM EDT Office Visit [facility] [address] [place] [address] Isabella Powell, JAMEEL [address] [place] [address] Arrived [facility] Comment on above: Arrived Start: 03-26-2024 End: 03-26-2024 Patient encounter procedure 03/26/2024 2:30 PM EDT Office Visit [facility] [address] [place] [address] Isabella Powell DPM [address] [place] [address] Arrived [facility] Comment on above: Arrived Start: 03-24-2024 End: 03-24-2024 Patient encounter procedure 03/24/2024 8:30 AM EDT Procedure Visit [facility] [address] [place] [address] Isabella Powell DPM [address] [place] [address] Arrived [facility] Comment on above: Arrived Start: 02-10-2024 Influenza vaccination Influenza Vacc ine (#1) [facility] Start: 08-22-2023 Radionuclide myocard ial perfusion stress study NM caleb perf SPECT rest & str [facility] Start: 08-22-2023 SPECT Heart perfusio n at rest and W stress and W radionuclide IV [facility] Start: 08-22-2023 End: 08-22-2023 Patient encounter procedure 08/22/2023 11:00 AM EDT Procedure Visit [facility] [address] [place] [id number] Isabella Powell DPM [address] [place] [address] [facility] Start: 07-19-2023 End: 07-19-2023 Patient encounter procedure 07/19/2023 9:45 AM EST Office Visit [facility] [address] [place] [address] Symone Calero MD [address] [place] [address] Arrived [facility] Comment on above: Arrived Start: 05-15-2022 End: 05-15-2022 [facility] Start: 05-15-2022 [facility] Start: 03-01-2022 MR Prostate WO and W contrast IV [facility] Work Phone: Start: 03-01-2022 MR prostate wo/w con MR prostate wo/ w con [facility] Start: 02-09-2022 Influenza vaccination INFLUENZ A (Season Ended) [facility] Start: 06-11-2021 ADVANCE DIRECTIVE DISCUSSION ADVANCE DIRECTIVE DISCUSSION [facility] Start: 08-29-2020 DIABETES SCREEN DIABETES SCREEN [facility] Start: 08-08-2018 Hemoglobin A1c measurement Diabetes: Hemoglobin A1C [facility] Start: 2010 PNEUMOVAX AGE 65 AND OVER WITH 5YR LOOKBACK (#1) PNEUMOVAX AGE 65 AND OVER WITH 5YR LOOKBACK (#1) [facility] Start: 1995 SHINGRIX VACCINE (1 of 2) SHINGRIX VACCINE (1 of 2) [facility] Start: 1964 Urine microalbumin profile DTAP,TDAP,TD (1 - Tdap) [facility] Start: 1964 Urine screening for protein Diabetes: Urine Protein Screening [facility] Start: 1963 HEPATITIS C SCREENING HEPATITIS C SC REENING [facility] Start: 1957 Adult depression screening assessment DEPRESSION SCREENING [facility] Start: 1955 Glaucoma screening Diabetes: R etinopathy Screening [facility] Start: 1950 COVID-19 VACCINE (#1) COVID-19 VACCI NE (#1) [facility] Start: 1945 Medicare Annual Wellness (AWV) Medicare Annual Wellness (AWV) [facility] Computed tomography for radiotherapy planning [facility] Glucose measurement estimated from glycated hemoglobin [facility] Hemoglobin A1c/Hemoglobin.total in Blood [facility] MR Prostate WO and W contrast IV [facility] Immunizations Immunization Date Immunization Notes Care Provider Fa cili 04-30-2024 SARS-COV-2 (COVID-19 ) vaccine, mRNA, spike protein, LNP, PF, 50 mcg/0.5 mL Isabella ALMENDAREZM Work Phone: [facility] 04-30-2024 Seasonal trivalent influenza vaccine, adjuvanted, preservative free Isabella Powell DPM Work Phone: [facility] 04-30-2024 influenza virus vacc ine, unspecified formulation Isabella Powell DPM Work Phone: [facility] 05-07-2023 Influenza, Seasonal, Quadrivalent, Adjuvanted Symone Calero MD Work Phone: [facility] 05-07-2023 SARS-COV-2 (COVID-19 ) vaccine, mRNA, spike protein, LNP, PF, 50 mcg/0.5 mL Symone Calero MD Work Phone: [facility] 05-07-2023 influenza virus vacc ine, unspecified formulation Isabella Powell DPM Work Phone: [facility] 03-29-2022 COVID-19 mRNA Bivale nt Booster (Pfizer) MD Blake Ng Work Phone: [facility] Comment on above: Result Comment: 2022: [id number] 03-29-2022 influenza virus vacc ine, unspecified formulation Symone Calero MD Work Phone: [facility] 03-15-2021 COVID-19 mRNA, Comir jaya (Pfizer) MD Blake Ng Work Phone: [facility] Comment on above: Result Comment: 2022: [id number] 03-02-2021 influenza virus vacc ine, unspecified formulation Jermaine MANCIA [facility] 03-02-2021 Influenza, High-dose Seasonal, Quadrivalent, Preservative Free Symone Calero MD Work Phone: [facility] 08-11-2020 COVID-19 mRNA, Comir jaya (Pfizer) MD Blake Ng Work Phone: [facility] 07-26-2020 SARS-CoV-2 (COVID-19 ) mRNA BNT-162b2 vax Jermaine MANCIA [facility] 07-14-2020 COVID-19 mRNA, Comir jaya (Pfizer) MD Blake Ng Work Phone: [facility] 04-27-2020 pneumococcal polysaccharide vaccine, 23 valent Symone Calero MD Work Phone: [facility] 04-05-2020 influenza, injectabl e, quadrivalent, preservative free Symone Calero MD Work Phone: [facility] 02-24-2020 influenza virus vacc ine, unspecified formulation Jermaine MANCIA [facility] 02-24-2020 Influenza, High-dose Seasonal, Quadrivalent, Preservative Free Symone Calero MD Work Phone: [facility] 03-26-2019 influenza virus vacc ine, unspecified formulation Jermaine MANCIA [facility] 03-26-2019 pneumococcal conjuga te vaccine, 13 valent Symone Calero MD Work Phone: [facility] 03-26-2019 Seasonal trivalent influenza vaccine, adjuvanted, preservative free Symone Calero MD Work Phone: [facility] 03-11-2019 influenza, high dose seasonal, preservative-free Symone Calero MD Work Phone: [facility] 03-11-2019 pneumococcal polysaccharide vaccine, 23 valent Symone Calero MD Work Phone: [facility] 03-18-2018 influenza virus vacc ine, unspecified formulation Jermaine MANCIA [facility] 03-18-2018 influenza, injectabl e, quadrivalent, preservative free Symone Calero MD Work Phone: [facility] 03-21-2017 influenza virus vacc ine, unspecified formulation Jermaine MANCIA [facility] 03-21-2017 influenza, high dose seasonal, preservative-free Symone Calero MD Work Phone: [facility] 03-12-2017 influenza virus vacc ine, unspecified formulation Jermaine MANCIA [facility] 03-12-2017 influenza, injectabl e, quadrivalent, preservative free Symone Calero MD Work Phone: [facility] 03-30-2016 influenza virus vacc ine, unspecified formulation Jermaine MANCIA [facility] 03-30-2016 influenza, high dose seasonal, preservative-free Symone Calero MD Work Phone: [facility] 02-22-2015 influenza virus vacc ine, unspecified formulation Jermaine MANCIA [facility] 02-22-2015 influenza, high dose seasonal, preservative-free Symone Calero MD Work Phone: [facility] 04-01-2014 influenza virus vacc ine, unspecified formulation Jermaine MANCIA [facility] 04-01-2014 influenza, seasonal, injectable Symone Calero MD Work Phone: [facility] 03-23-2014 pneumococcal polysaccharide vaccine, 23 valent Symone Calero MD Work Phone: [facility] 05-19-2013 influenza virus vacc ine, unspecified formulation Jermaine MANCIA [facility] 05-19-2013 influenza, seasonal, injectable Symone Calero MD Work Phone: [facility] Payers Date Payer Category Payer Unknown 2022 Unknown [id number] 2022 Self-pay [id number] 2013 Private Health Insurance [facility] AARP SUPPLEMENT [id number] 2013-Present [phone] [address] [place] [address] Indemnity [id number] 2011 Private Health Insurance [id number] 2011 Unknown [id number] 2010 Medicare MEDICARE MEDICAR E A AND B [id number] 2010-Present [phone] [address] [address] [place] [address] Medicare [id number] 2010 Medicare [id number] 1959 Medicare [id number] 1959 Unknown [id number] 1945 Unknown [id number] 2.16.840.1.700162.3.579.2 .593 1945 Unknown [id number] 2.16.840.1.730489.3.579.2 .593 1945 Unknown [id number] 2.16.840.1.601558.3.579.2 .593 1945 Unknown [id number] 2.16.840.1.579445.3.579.2 .1259 1945 Unknown [id number] 2.16.840.1.064969.3.579.2 .1259 1945 Unknown [id number] 2.16.840.1.570732.3.579.2 .1259 1945 Unknown [id number] 2.16.840.1.102745.3.579.2 .1259 1945 Unknown [id number] 2.16.840.1.961903.3.579.2 .1259 1945 Unknown [id number] 2.16.840.1.874919.3.579.2 .1259 1945 Unknown [id number] 2.16.840.1.434761.3.579.2 .1259 1945 Unknown [id number] 2.16.840.1.531965.3.579.2 .1259 1945 Unknown [id number] 2.16.840.1.990902.3.579.2 .1258 1945 Unknown [id number] 2.16.840.1.703147.3.579.2 .1258 1945 Unknown [id number] 2.16.840.1.358072.3.579.2 .1258 1945 Unknown [id number] 2.16.840.1.251851.3.579.2 .1258 1945 Unknown [id number] 2.16.840.1.244421.3.579.2 .1258 1945 Unknown [id number] 2.16.840.1.284927.3.579.2 .1258 1945 Unknown [id number] 2.16.840.1.138129.3.579.2 .1258 1945 Unknown [id number] 2.16.840.1.503383.3.579.2 .1258 1945 Unknown [id number] 2.16.840.1.937423.3.579.2 .727 1945 Unknown [id number] 2.16.840.1.868570.3.579.2 .727 Unknown [facility] Health Claims [id number] Unknown [id number] 2.16.840.1.373646.3.579.2 .531 Unknown [id number] 2.16840.1.652486.3.579.2 .531 Unknown [id number] 2.16840.1.337976.3.579.2 .531 Unknown [id number] 2.16.840.1.327623.3.579.2 .531 Social History Date Type Detail Facility Start: 06-18-2018 End: 12-25-2022 Tobacco smoking status NHIS Never smoked tobacco [facility] Start: 06-18-2018 Tobacco use and exposure Smoke less tobacco non-user [facility] Start: 10-25-2021 End: 01-02-2025 Alcohol intake Current drinker of alcohol (finding) [facility] Start: 06-18-2018 History SDOH Alcohol Comment minimal [facility] Start: 1945 Sex Assigned At Not on file [facility] Tobacco smoking status No Smokin g Status Entered [facility] Start: 04-12-2023 End: 01-22-2024 Sex Assigned At Male [facility] Start: 1945 Sex Assigned At Male F [facility] Tobacco smoking status [facility] Start: 04-12-2023 End: 01-22-2024 History of Social function [facility] Frequency of Alcohol Consumption Not on file [facility] How many standard dr inks containing alcohol do you have on a typical day? 1 or 2 [facility] How often do you hav e 6 or more drinks on 1 occasion? Weekly [facility] Start: 12-24-2022 Alcohol Comment Caffeine intak e: 1-2 cups per day, coffee, soda [facility] Do you belong to any clubs or organizations such as amish groups, unions, fraternal or athletic groups, or school groups? No [facility] Are you now , , , , never or living with a partner? [facility] How often to you hav e a drink containing alcohol? Monthly or less [facility] How often do you hav e 6 or more drinks on 1 occasion? Never [facility] (I/We) worried whearuna er (my/our) food would run out before (I/we) got money to buy more. Never true [facility] Start: 12-27-2011 End: 08-07-2024 Sex Male (finding) [facility] How often do you nee d to have someone help you when you read instructions, pamphlets, or other written material from your doctor or pharmacy [SILS] Often [facility] Medical Equipment Procedure Code Equipment Code Equipment Origin al Text Equipment Identifier Dates Injection, hydrogel spacer Radiotherapy protection spacer [id number] FDA Start: 05-15-2022 Injection, hydrogel spacer Imaging lesion localization marker, implantable [id number] FDA Start: 05-15-2022 1 each by In Vit ro route in the morning and 1 each in the evening and 1 each before bedtime. [id number] Start: 07-09-2023 1 each in the mo rning and 1 each in the evening and 1 each before bedtime. [id number] Start: 07-09-2023 GNP Insulin Syri nges 31Gx5/16 31G X 5/16 0.3 ML misc [id number] Start: 07-10-2023 USE DIRECTED to test BLOOD SUGAR THREE TIMES DAILY [id number] Start: 10-17-2023 1 each by Other route in the morning and 1 each in the evening and 1 each before bedtime. [id number] Start: 09-06-2023 Use as needed [id number] Start: 10-01-2023 As needed [id number] Start: 10-17-2023 Use as needed [id number] Start: 09-03-2024 USE DIRECTED to test BLOOD SUGAR IN THE MORNING, IN THE EVENING and BEFORE bedtime [id number] Start: 09-11-2024 USE DIRECTED to test BLOOD SUGAR THREE TIMES DAILY (IN THE MORNING, IN THE EVENING, and BEFORE bedtime) [id number] Start: 09-11-2024 As needed [id number] Start: 12-04-2024 Goals Date Patient Goal Desired Activity /State Functional Status Date Assessment Result Facility 12-28-2023 Functional Status N/A [facility] 04-14-2022 Functional Status N/A [facility] 12-23-2021 Functional Status N/A [facility] Clinical Notes 10-25-2021 to 01-02-2025 Blake Ng MD - 01/02/2025 12:56 PM Fly Ng MD - 01/02/2025 12:56 PM Fly Ng MD - 01/02/2025 12:55 PM EDJennifer Ng MD - 01/02/2025 12:55 PM EDT Note Date & Type Note Facility 01-02-2025 History of Present illness Narrative Associated Problem(s): Type 2 diabetes mellitus with hyperglycemia, with long-term current use of insulin (HCC) BS stable and check BS TID. Stick to ADA diet and limit carbs. Associated Problem(s): Thrombocytopenia Mild and stable since 2017. Likely related to aspirin. Associated Problem(s): Renal calculi Follow with urology for removal. Associated Problem(s): Preoperative clearance Stress test ordered. If negative will be able to proceed with surgery at low risk for complications. DM and HTN controlled with medication. No history of CAD. Labs show low platelets but stable since at least 2017, likely related to daily aspirin. Patient will be able to hold aspirin for 7 days prior to surgery. Associated Problem(s): Other chest pain Increased discomfort and fatigue. Likely related to dehydration and muscular but patient with risk factors for CAD. Check lexiscan cardiolyte stress test. Associated Problem(s): Abnormal EKG EKG with T changes but present on EKG in 2023 prior to stress test. Likely benign. Associated Problem(s): Benign essential hypertension BP controlled and monitor PRN. Images from the original note were not included. Subjective Patient ID: Zach Chamorro is a 79 y.o. male who presents for Follow-up (Surgical clearance/). Presents for preoperative clearance. History of kidney stones and follows with urology. Recent episode of hematuria. C/o pain in right flank and back. Seen by urology and stone for years but increased in size. Scheduled for cystoscopy and left helium laser 01/08. concerned and patient c/o chest cramping for several weeks. Notice off and on but occurs with exertion. At times will occur after using riding emergency physician. Notice overall increased fatigue over past few weeks. Tried to help bale hay and had to stop due to fatigue and SOB. At the time it was very hot and patient wasn't drinking a lot of water. Lexiscan cardiolyte stress test negative August 2023. Preop labs showed low platelets of 119. EKG with nonspecific T wave changes. Review [...] with myocardial perfusion documented in this encounter [facility] 12-29-2024 Hospital Discharge instructions Patient Education 12/29/2024 08:56:27 Cancer Screening for Males Cancer Screening for Males A cancer screening is a test or exam that checks for cancer. Work with your health care provider to create a cancer screening schedule that protects your health. Who should have screening? All people who are male should be considered for screening of certain cancers, including colorectal cancer, prostate cancer, lung cancer, and skin cancer. Your health care provider may recommend screenings for other types of cancer if: You have had cancer before. You have a family member with cancer. You have genes that could increase the risk of cancer. You have risk factors for certain cancers, such as current or past use of tobacco products or being overweight. What are the benefits of screening? Cancer screening is done to look for cancer in the very early stages, before it spreads and becomes harder to treat and before you would start to notice symptoms. Finding cancer early improves the chances of successful treatment. It may save your life. When should I be screened for cancer? When you should be screened for cancer depends on: Your age. Your medical history and your family's medical history. Certain lifestyle factors, such as smoking or other use of tobacco products. Environmental exposure, such as to asbestos. How is screening done? Colorectal cancer Colorectal cancer screening looks for cancer or for growths called polyps that often form before cancer starts. Tests to look for cancer or polyps include: Colonoscopy or flexible sigmoidoscopy. For these procedures, a flexible tube with a small camera is inserted into the rectum. CT colonography. This test uses X-rays and a contrast dye to check the colon for polyps. Tests to look for cancer in the stool (feces) include: Guaiac-based fecal occult blood test (FOBT). This test can find blood in stool. It can be done at home with a kit. Fecal immunochemical test (FIT). This test can find blood in stool. For this test, you will need to collect stool samples at home. Stool DNA test. This test looks for blood in stool and any changes in DNA that can lead to colon cancer. For this test, you will need to collect a stool sample at home and send it to a lab. All adults should have screenings starting at 45 years old and continuing through 75 years old. For males 76 85 years old, the decision to be screened should be based on a person's preferences, life expectancy, overall health, and prior screening history. Your health care provider may recommend screening before 45 years old. You will have tests every 1 10 years, depending on your results and the type of screening test. People at increased risk should start screening at an earlier age. Talk with your health care provider about which screening test is right for you and how often you should be screened. Prostate cancer Prostate cancer screening is done with blood tests and a digital rectal exam. During this exam, a health care provider uses a gloved finger to check prostate size. You may need to be screened for prostate cancer if: You have risk factors for prostate cancer, such as being an person or having a close family member with prostate cancer. You have had gene changes or a genetic condition that was passed on to you from a parent (inherited). These gene changes or genetic conditions include BRCA1 or BRCA2 gene mutations or Farah syndrome. You have symptoms of prostate cancer, such as problems urinating or problems getting or keeping an erection (erectile dysfunction). When you have been screened for prostate cancer, future screening may be recommended based on the results of your blood tests. Prostate cancer screening for males with average risk may start at 50 years old. Males with risk factors may need to be screened earlier, at 40 45 years old. Talk with your health care provider about whether screening is right for you and, if so, how often you should be screened. Lung cancer Lung cancer screening is done with a CT scan that looks for abnormal changes in the lungs. Discuss lung cancer screening with your health care provider if you are 50 80 years old and if any of the following apply to you: You currently smoke. You used to smoke heavily. You have a smoking history of 1 pack of cigarettes a day for 20 years or 2 packs a day for 10 years. You may need to be screened every year if you smoke heavily or if you used to smoke. Skin cancer Skin cancer screening is done by checking the skin for unusual moles or spots and any changes in existing moles. Your health care provider should check your skin for signs of skin cancer at every physical exam. You should check your skin every month and tell your health care provider right away if anything looks unusual. Males with a xnicec-ynim-kjfplv risk for skin cancer may want to see a correctional casework specialist (pneumatic drum sander) for an annual body check. Where to find more information [employer] [employer]: cancer.org Centers for Disease Control and Prevention: cdc.gov National Cancer [place]: cancer.gov Contact a health care provider if: You have concerns about any signs or symptoms of cancer. These may include: ?Skin problems. You may have: ?Moles of an unusual shape or color. ?Changes in existing moles. ?A sore on your skin that does not heal. ?Tiredness (fatigue) that does not go away. ?Losing weight without trying. ?Blood in your urine or stool. ?Problems with urination. You may have: ?Changes in urination habits. ?Painful urination. ?Painful ejaculation. ?Problems with coughing or breathing. These may include: ?Coughing or trouble breathing that does not go away. ?Coughing up blood. ?Frequent pain or cramping in your abdomen. This information is not intended to replace advice given to you by your health care provider. Make sure you discuss any questions you have with your health care provider. Document Revised: 06/05/2023 Document Reviewed: 12/18/2022 [employer] Patient Education 2023 [place]. Follow Up Care 12/28/2023 10:42:14 With:MIKEY ARORA Jermaine Cano, URL Address: [facility] [address] [place] [address]- When: Unknown [facility] 12-29-2024 Note Patient Education Oncology Cancer Screening for Males A cancer screening is a test or exam that checks for cancer. Work with your health care provider to create a cancer screening schedule that protects your health. Who should have screening? All people who are male should be considered for screening of certain cancers, including colorectal cancer, prostate cancer, lung cancer, and skin cancer. Your health care provider may recommend screenings for other types of cancer if: ??? You have had cancer before. ??? You have a family member with cancer. ??? You have genes that could increase the risk of cancer. ??? You have risk factors for certain cancers, such as current or past use of tobacco products or being overweight. What are the benefits of screening? Cancer screening is done to look for cancer in the very early stages, before it spreads and becomes harder to treat and before you would start to notice symptoms. Finding cancer early improves the chances of successful treatment. It may save your life. When should I be screened for cancer? When you should be screened for cancer depends on: ??? Your age. ??? Your medical history and your family's medical history. ??? Certain lifestyle factors, such as smoking or other use of tobacco products. ??? Environmental exposure, such as to asbestos. How is screening done? Colorectal cancer Colorectal cancer screening looks for cancer or for growths called polyps that often form before cancer starts. Tests to look for cancer or polyps include: ??? Colonoscopy or flexible sigmoidoscopy. For these procedures, a flexible tube with a small camera is inserted into the rectum. ??? CT colonography. This test uses X-rays and a contrast dye to check the colon for polyps. Tests to look for cancer in the stool (feces) include: ??? Guaiac-based fecal occult blood test (FOBT). This test can find blood in stool. It can be done at home with a kit. ??? Fecal immunochemical test (FIT). This test can find blood in stool. For this test, you will need to collect stool samples at home. ??? Stool DNA test. This test looks for blood in stool and any changes in DNA that can lead to colon cancer. For this test, you will need to collect a stool sample at home and send it to a lab. All adults should have screenings starting at 45 years old and continuing through 75 years old. For males 76?85 years old, the decision to be screened should be based on a person's preferences, life expectancy, overall health, and prior screening history. Your health care provider may recommend screening before 45 years old. You will have tests every 1?10 years, depending on your results and the type of screening test. People at increased risk should start screening at an earlier age. Talk with your health care provider about which screening test is right for you and how often you should be screened. Prostate cancer Prostate cancer screening is done with blood tests and a digital rectal exam. During this exam, a health care provider uses a gloved finger to check prostate size. You may need to be screened for prostate cancer if: ??? You have risk factors for prostate cancer, such as being an person or having a close family member with prostate cancer. ??? You have had gene changes or a genetic condition that was passed on to you from a parent (inherited). These gene changes or genetic conditions include BRCA1 or BRCA2 gene mutations or Farah syndrome. ??? You have symptoms of prostate cancer, such as problems urinating or problems getting or keeping an erection (erectile dysfunction). When you have been screened for prostate cancer, future screening may be recommended based on the results of your blood tests. Prostate cancer screening for males with average risk may start at 50 years old. Males with risk factors may need to be screened earlier, at 40?45 years old. Talk with your health care provider about whether screening is right for you and, if so, how often you should be screened. Lung cancer Lung cancer screening is done with a CT scan that looks for abnormal changes in the lungs. Discuss lung cancer screening with your health care provider if you are 50?80 years old and if any of the following apply to you: ??? You currently smoke. ??? You used to smoke heavily. ??? You have a smoking history of 1 pack of cigarettes a day for 20 years or 2 packs a day for 10 years. You may need to be screened every year if you smoke heavily or if you used to smoke. Skin cancer Skin cancer screening is done by checking the skin for unusual moles or spots and any changes in existing moles. Your health care provider should check your skin for signs of skin cancer at every physical exam. You should check your skin every month and tell your health care provider right away if anything looks unusual. Males with a xusear-gbis-asblbn risk for skin cancer may want to see a correctional casework specialist (dermatologi (more content not included)... [facility] 11-04-2024 Evaluation note Diagnosis Onset Date Resolution Prostate cancer acute November 04, 2024 9:41am Prostate cancer acute November 04, 2024 9:41am [facility] Work Phone: [phone]) 972-352105-27-2025 [facility] [place] [address] Cancer Center Note Signed Patient: Zach Chamorro MR#: [id number] : 1945 Acct:[id number] Age/Sex: 79 / M Type: DEP AMB Date of Service: 11/04/24 Copies to: Blake Ng MD~ Assessment & Plan A/P (1) Prostate cancer: Plan: Return to clinic with [facility]FFER Apr 2025 with next PSA Assessment: 78-year-old male with 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 Patient has a large prostate gland 78 mL and was on tamsulosin 0.4 mg daily due to the BPH at presentation. June 13, 2022 patient completed definitive SBRT to the prostate 37.5 Ol[place] in 5fractions deliveredevery other day. Posttreatment PSAs Aug 2022 2.17 November 2022 1.May 0.Sep 0.13 December 2023 0.800 Apr 2024 0.400 October 2024 0.270 (boone) Patient continues to do quite well. He continues tamsulosin daily. He is now over 2 years out from treatment. We will continue 6-month follow-up and PSA. Hecontinues to follow with urology annually as well for kidney stones, with his next urology visit in December 2024. Orders: Orders PSA Total (Not a Screen) 6 Months C61 - Malignant neoplasm of prostate Patient Instructions: follow-up in 6mo with [facility]FFER PSA in 6mo CHEMO PLAN No Active Chemotherapy History of Present Illness HPI 78-year-old male referred for new diagnosis of prostate cancer: Followed by urology due to a history of BPH with urinary obstruction. PSA history: December, 5.89 December, 4.December 4.December 3.November 2.November 2.81 March 01, 2022 multi parametric MRI showed a 78 mL gland with BPH changes there was a focal area of T2 hypointensity identified in the posterior lateral aspect of the right peripheral zone at thelevel of the apex measuring 5 mm withrestricted diffusion and low ADC. No extraprostatic extension was seen. There was heterogeneous T2 signal suggestive of prior prostatitis. No evidence of lymphadenopathy PI-RADS 4 MR fusion biopsy confirmed Tanna 3+4 equal 7 in 3 cores including the region of interest as well as the right anterior medial gland and Napoleon 3+3 equal 6 in 1 core at the left base. At consult AUA 5 reporting frequency about half the time and stable nocturia 2 times per night. Quality of life is mostly satisfied IMER is 9 consistent with moderate ED. On tamsulosin 0.4 mg daily at presentation. June 13, 2022 patient completed definitive SBRT to the prostate 37.5 Olvera in 5 fractions delivered every other day. Patient has a large prostate with BPH atbaseline so he did require an increase inFlomax to twice daily. Posttreatment PSAs Aug 2022 2.17 November 2022 1.May 0.Sep 0.13 December 2023 0.800 Apr 2024 0.400 October 2024 0.270 (boone) In follow up: AUA 4. Nocturia 1 time a night. (Improved from baseline) Quality of life is mostly satisfied. IMER 6-7. No bowel complaints been a recent increase in flatus. AUA 5, nocturia 2 x a night, on tamsulosin (Baseline) QOL Mostly satisfied, IMER 15 Oct 2024 he is doing well without any changes in urinary symptoms. He denies bowel symptoms. IPSS is 8 with nocturia 2 times per night. His frequency is almost always, which patient notes is not changed over time. QOL is mostly satisfied. IMER 6. He continues on tamsulosin daily. He continues to follow with urology regarding kidney stones and erectile dysfunction (given medication). December 19, 2023KUB stable 4 mm left kidney stone. Intake Intake Visit Reasons: 6 Month Follow Up, Review PSA Allergies No Known Allergies Allergy (Verified 09/18/23 10:05) [facility] Medical History Medical History (Updated 07/12/22 @ 09:37 by Rosy Pina MD) History of Carr's palsy 2017 Neuropathy Nocturia Prostate cancer TIA (transient ischemic attack) 2018 IDDM (insulin dependent diabetes mellitus) Hypertension H/O gastric ulcer Hypercholesteremia Elevated PSA Kidney stones BPH (benign prostatic hyperplasia) Surgical History Surgical History (Updated 07/12/22 @ 09:37 by Rosy Pina MD) History of vasectomy History of foot surgery heel spurs History of reverse total replacement of right shoulder joint History of phacoemulsification of cataract of both eyes with intraocular lens implantation 2019 History of prostate biopsy 03/28/22 Family History Family History (Updated 05/08/22 @ 14:23 by Mayelin Tovar RN) Father Stomach ulcer Mother Diabetes Stroke Mother No problems noted. Brother No problems noted. Brother Prostate cancer Throat cancer Diabetes Brother Myocardial infarction Social History Social History (System 06/18/17 @ 11:14 by Rachel Brown) Smoking status: Never smoker Physical Exam EXAM Physical Exam KPS 90 General: alert and oriented male in no acute distress HEENT: normocephalic, extra ocular movements intact Lungs: normal work of breathing on room air Abdomen: non acute MSK: extremities within normal limits Neuro: grossly intact [facility] - [facility] LAB RESULTS Total PSA 0.270 ng/mL (0.000-4.000) 10/28/24 09:46 10/28 Social Determinants of Health AUA Incomplete emptying - It does not feel like I empty my bladder all the way.: 0 - Not at all Frequency - I have to go again less than two hours after I finish urinating.: 5 - Almost always Intermittency - I stop and start again several times when I urinate.: 1 - Less than 1 time in 5 Urgency - It is hard to wait when I have to urinate.: 0 - Not at all Weak stream - I have a weak urinary stream.: 0 - Not at all Straining - I have to push or strain to begin urination.: 0 - Not at all Nocturia - I get up to urinate after I go to bed until the time I get up in the morning.: 2 times AUA Symptom Score: 8 Quality of life due to urinary symptoms: If you were to spend the rest of your life with your urinary condition the way it is now, how would you feel about that?: Mostly Satisfied Source: Julius BARNEY, Josafat LOWERY Jr, O'David MP, et al, and the Measurement Committeeof the [employer] [employer]. The [place] [employer] symptom index for benign prostatic hyperplasia. J Urol. 1992; 148: 4051-4850. Copyright 1992 [employer] Over the past six months How do you rate your confidence that you could get and keep an erection?: Very low When you had erections with sexual stimulation, how often were your erections hard enough for penetration?: Almost never or never During sexual intercourse, how often were you able to maintain your erection after you had penetrated your partner?: Almost never or never During sexual intercourse, how difficult was it to maintain your erection to completion of intercourse?: Extremely difficult When you attempted sexual intercourse, how often was it satisfactory for you?: Afew times (much less than half the time) IMER Total: 6 Dictated By: Tre Bertrand APRN DD/ [id number] Signed By: 11/04/24 1012 [facility]05-12-2025 History of Present illness Narrative * Jaycob Ferguson, DO - 10/20/2024 11:15 AM EDT Images from the original note were not included. @ENCDATE@ Zach Arana Ashtyn is a 79 y.o. male who presents for Pain of the Left Elbow HPI: History of Present Illness The patient is a 79-year-old male who presents for a new problem with the left elbow. is present. He reports an injury to his left elbow sustained while moving a large box on 10/12/2024. He describes a sensation of tearing in the elbow, which was preceded by mild pain experienced during the repetitive lifting of buckets of dirt. The current injury has exacerbated the pre-existing discomfort. Hehas been managing the pain with ice and Biofreeze. He also notes the presence of swelling and bruising in the affected area. His is right-handed and continues to engage in activities such as lifting bricks, which may be contributing to the persistence of his symptoms. History of right reverse TSA in 2018 which is currently doing well. SUBJECTIVE: MEDICATIONS: Current Outpatient Medications Medication Instructions Accu-Chek Softclix Lancets lancets USE DIRECTED to test BLOOD SUGAR THREE TIMES DAILY allopurinol (ZYLOPRIM) 300 mg, Oral, Daily aspirin 81 MG EC tablet Every 24 hours Blood Glucose Monitoring Suppl (True Metrix Meter) w/Device kit 1 each, Does not apply, 3 times daily cephalexin (Keflex) 500 MG capsule Take 4 pills 30-60 mins before dental appointment with food Coenzyme Q10 (Co Q-10) 100 MG chewable tablet Cyanocobalamin (Vitamin B12) 1000 MCG tablet controlled-release Every 24 hours esomeprazole (NEXIUM) 40 mg, Daily before breakfast ferrous sulfate 325 (65 Fe) MG tablet Every 24 hours hydrOXYzine HCl (ATARAX) 25 mg, Oral, 4 times daily PRN insulin glargine (LANTUS) 45 Units, Subcutaneous, Nightly insulin syringe-needle U-100 (GNP Insulin Syringes 31Gx5/16 ) 31G X 5/16 0.3 mL misc Use as needed insulin syringe-needle U-100 (TechLITE Insulin Syringe) 31G X 5/16 1 mL misc As needed Lantus SoloStar 45 Units, Subcutaneous, Nightly lisinopril 20 mg, Oral, Every 24 hours Magnesium Oxide (Elemental) 400 mg, Oral, 2 times daily (01/20) metFORMIN (GLUCOPHAGE) 1,000 mg, Oral, 2 times daily with meals metoprolol succinate XL (TOPROL-XL) 50 mg, Oral, Daily Multiple Vitamin (Multi Vitamin) tablet Every 24 hours Multiple Vitamins-Minerals (PreserVision AREDS) tablet Ozempic (1 MG/DOSE) 1 mg, Subcutaneous, Weekly rosuvastatin (CRESTOR) 10 mg, Oral, Daily RT tamsulosin (FLOMAX) 0.4 mg, Oral, Daily True Metrix Blood Glucose Test test strip USE DIRECTED to test BLOOD SUGAR IN THE MORNING, IN THE EVENING and BEFORE bedtime True Metrix Blood Glucose Test test strip USE DIRECTED to test BLOOD SUGAR THREE TIMES DAILY (INTHE MORNING, IN THE EVENING, and BEFORE bedtime) ALLERGIES: No Known Allergies SURGICAL HISTORY: Past Surgical History: Procedure Laterality Date CATARACT EXTRACTION Bilateral 2019 COLONOSCOPY 05/15/2022 CT GUIDED TRANSVAGINAL TRANSRECTAL FLUID DRAIN 08/29/2017 CT GUIDED TRANSVAGINAL TRANSRECTAL FLUID DRAIN 08/29/2017 HEEL SPUR EXCISION 1995 KIDNEY STONE SURGERY 2009 ablation KNEE SURGERY Left arthroscopy OTHER SURGICAL HISTORY 2021 radiation for prostate REVERSE TOTAL SHOULDER ARTHROPLASTY Right 2018 JAB SHOULDER SURGERY Right 05/13/2018 TONSILLECTOMY VASECTOMY FAMILY HISTORY: Family History Problem Relation Name Age of Onset Hypertension Mother ma Diabetes Mother ma Stroke Mother ma Parkinsonism Father Diabetes Brother berlin Heart disease Brother berlin Hypertension Brother berlin Diabetes Son chalo Melanoma Neg Hx SOCIAL HISTORY: Social History Tobacco Use Smoking status: Never Vaping Use Vaping status: Never Used Substance Use Topics Alcohol use: Yes Alcohol/week: 1.0 - 2.0 standard drink of alcohol Types: 1 - 2 Standard drinks or equivalent per week Comment: Caffeine intake: 1-2 cups per day, coffee, soda Drug use: Never Depression: Not at risk (08/05/2024) PHQ-2 PHQ-2 Score: 0 REVIEW OF SYMPTOMS: Review of Systems The review of systems, history and current medications list are all reviewed today. OBJECTIVE: Visit Vitals Ht 6' 2 Wt 208 lb BMI 26.71 kg/m Smoking Status Never BSA 2.22 m Physical Exam Alert and oriented, no acute distress. Mood and affect are appropriate. Ambulating independently. Gait is nonantalgic. Left Elbow: There is mild swelling and bruising medially. The bicep tendon is palpable with negative hook test. Good strength with resisted supination and flexion. 5/5 extension. No swelling in olecranon bursa. Full flexion/extension/pronation/supination Right Elbow: Skin is warm, dry, and intact. There is no soft tissue swelling and no joint effusion.There is no ecchymosis or erythema. Flexion and extension are well maintained and there is pain free range of motion. No tenderness to palpation. Ortho Exam Results Imaging Four views of the left elbow, AP/lateral/oblique/radiocapitellar, taken today and saved to the permanent medical record. No acute osseous abnormalities, no fat pad sign. Joint spaces are preserved. Tiny osteophyte at the tip of the olecranon. ASSESSMENT AND PLAN: I reviewed the history, physical exam, diagnostic studies, and diagnosis with the patient. Assessment & Plan 1. Partial tear of the distal bicep tendon, left elbow: Rest the affected area as much as possible for the next few weeks. Use a sling when active as a reminder to limit lifting with left elbow. Apply ice to reduce inflammation. May continue using Biofreeze as needed. Healing may take several months; use pain as a guide for activity levels. Follow-up: If still experiencing issues in 2 months, contact the clinic. Otherwise follow up prn. A total of 30 to 39 minutes was spent on this patient encounter which included chart review, check in, nurse triage, history taking, physical examination, diagnostic study review, patient counseling and discussion, entering information into the patient's medical record, and coordinating patient care. Diagnoses and all orders for this visit: Left elbow pain - XR elbow 3+ views left Jaycob Ferguson D.O. Attestation This note was created using voice recognition through RoomActually. documented in this encounterRay County Memorial [id number] History of Present illness Narrative* Isabella Powell DPM - 10/13/2024 9:15 AM EDT Images from the original note were not included. Subjective Patient ID: Zach Chamorro is a 79 y.o. male who presents for DM Foot Care (PT is here today with his spouse for diabetic foot care, he states the nails are becoming painful for him/BS: 89 A1C: 7.4/LV Dr. Ng 08-05-2024/SS: 12). HPI HPI Onychomycosis/Toenail Fungus: patient presents today requesting nail care. Toenail deformity. Location: Identifies all digits as deformed, discolored and problematic. Duration: Chronic, stable deformity multiple years duration. Severity of symptoms: mild pressure, acknowledging diabetic neuropathy. Onset: gradual, without injury or trauma. Status: Problematic/mildly symptomatic over the past several weeks or so. Context: hard to trim , hard to reach ; self-care iis difficult, ineffective and not practical; exposing patient to considerable risk. Family members unable to provide effective care. Characteristics: ingrowing, discolored, thickened, /lifting, pressure , crusty; without bleeding or drainage. Relieved by: Palliative care provides effective transient symptom relief; reduces risk of associated complications. Risk factors: medical comorbidities. Polypharmacy. Aspirin therapy. type II diabetes/IDDM. Diabeticperipheral neuropathy. Toenail deformity. Shoe and/or digital trauma and related complications. Aggravated by: shoe gear , pressure, walking, catching and snagging on clothing etc. . Medications Current Outpatient Medications: Accu-Chek Softclix Lancets lancets, USE DIRECTED to test BLOOD SUGAR THREE TIMES DAILY, Disp: 100 each, Rfl: 2 allopurinol (Zyloprim) 300 MG tablet, Take 1 tablet (300 mg) by mouth Daily, Disp: 90 tablet, Rfl: 3 aspirin 81 MG EC tablet, 1 (one) time each day at the same time, Disp: , Rfl: Blood Glucose Monitoring Suppl (True Metrix Meter) w/Device kit, 1 each in the morning and 1 each in the evening and 1 each before bedtime., Disp: 1 kit, Rfl: 0 cephalexin (Keflex) 500 MG capsule, Take 4 pills 30-60 mins before dental appointment with food, Disp: 4 capsule, Rfl: 3 Coenzyme Q10 (Co Q-10) 100 MG chewable tablet, , Disp: , Rfl: Cyanocobalamin (Vitamin B12) 1000 MCG tablet controlled-release, 1 (one) time each day at the same time., Disp: , Rfl: esomeprazole (NexIUM) [address] capsule, Take 40 mg by mouth in the morning. Take before meals., Disp: , Rfl: ferrous sulfate 325 (65 Fe) MG tablet, 1 (one) time each day at the same time., Disp: , Rfl: hydrOXYzine HCl (Atarax) 25 MG tablet, Take 1 tablet (25 mg) by mouth 4 (four) times a day as needed for itching, Disp: 60 tablet, Rfl: 3 insulin glargine (Lantus SoloStar) 100 UNIT/ML pen, Inject 45 Units under the skin at bedtime, Disp: , Rfl: insulin glargine (Lantus) 100 UNIT/ML injection, Inject 45 Units under the skin at bedtime, Disp: 45 mL, Rfl: 3 insulin syringe-needle U-100 (GNP Insulin Syringes 31Gx5/16 ) 31G X 5/16 0.3 mL misc, Use as needed, Disp: 100 each, Rfl: 3 insulin syringe-needle U-100 (TechLITE Insulin Syringe) 31G X 5/16 1 mL misc, As needed, Disp: 100each, Rfl: 3 lisinopril 20 MG tablet, Take 1 tablet (20 mg) by mouth 1 (one) time each day at the same time, Disp: 90 tablet, Rfl: 3 Magnesium Oxide, Elemental, 400 MG tablet, Take 400 mg by mouth in the morning and at noon, Disp: 60 tablet, Rfl: 5 metFORMIN (Glucophage) 1000 MG tablet, Take 1 tablet (1,000 mg) by mouth in the morning and 1 tablet (1,000 mg) in the evening. Take with meals., Disp: 180 tablet, Rfl: 3 metoprolol succinate XL (Toprol-XL) 50 MG 24 hr tablet, Take 1 tablet (50 mg) by mouth Daily, Disp:90 tablet, Rfl: 3 Multiple Vitamin (Multi Vitamin) tablet, 1 (one) time each day at the same time., Disp: , Rfl: Multiple Vitamins-Minerals (PreserVision AREDS) tablet, as directed Orally, Disp: , Rfl: rosuvastatin (Crestor) 10 MG tablet, Take 1 tablet (10 mg) by mouth in the morning., Disp: 90 tablet, Rfl: 3 semaglutide (Ozempic, 1 MG/DOSE,) 4 MG/3ML solution pen-injector, Inject 1 mg under the skin 1 (one) time per week, Disp: 3 each, Rfl: 3 tamsulosin (Flomax) 0.4 MG 24 hr capsule, Take 1 capsule (0.4 mg) by mouth Daily, Disp: 90 capsule,Rfl: 3 True Metrix Blood Glucose Test test strip, USE DIRECTED to test BLOOD SUGAR IN THE MORNING, IN THE EVENING and BEFORE bedtime, Disp: 100 strip, Rfl: 11 True Metrix Blood Glucose Test test strip, USE DIRECTED to test BLOOD SUGAR THREE TIMES DAILY (IN THE MORNING, IN THE EVENING, and BEFORE bedtime), Disp: 100 strip, Rfl: 11 Allergies Patient has no known allergies. Past Surgical History Past Surgical History: Procedure Laterality Date CATARACT EXTRACTION Bilateral 2018 COLONOSCOPY 05/15/2022 CT GUIDED TRANSVAGINAL TRANSRECTAL FLUID DRAIN 08/29/2017 CT GUIDED TRANSVAGINAL TRANSRECTAL FLUID DRAIN 08/29/2017 HEEL SPUR EXCISION 1995 KIDNEY STONE SURGERY 2009 ablation KNEE SURGERY Left arthroscopy OTHER SURGICAL HISTORY 2021 radiation for prostate REVERSE TOTAL SHOULDER ARTHROPLASTY Right 2018 JAB SHOULDER SURGERY Right 05/13/2018 TONSILLECTOMY VASECTOMY Family History Family History Problem Relation Name Age of Onset Hypertension Mother ma Diabetes Mother ma Stroke Mother ma Parkinsonism Father Diabetes Brother berlin Heart disease Brother berlin Hypertension Brother berlin Diabetes Son chalo Melanoma Neg Hx Objective General Examination: GENERAL EXAMINATION: Alert and oriented. Pleasant disposition. Presents with pneumatic cam walker in place left; for symptoms of midfoot arthrosis, which have effectively resolved. His spouse, Naila is present. FOOT EXAM: Date of Last Foot Exam 10/13/2024 Sensory testing performed: sensations diminished Sensory and motor testing performed: strength normal Pedal pulse taking performed: 1+ Vascular: DORSALIS PEDIS PULSE: bilaterally, 1/4 . POSTERIOR TIBIAL PULSE: bilaterally, 1/4 . TEMPERATURE GRADIENT: warm to warm. EDEMA: Mild, non-pitting swelling of the left ankle extending to the midfoot. Minimal swelling of the right ankle. Mild stasis skin changes and pigmentation bilateral. CAPILLARY FILLING TIME(sec): capillary fill intact bilateral digits less than 3 secs . Neurologic: MUSCLE POWER: No focal deficits. TINELS SIGN: Negative along the tarsal tunnel. VIBRATORY: Absent at the MTP joints. SHARP SENSATION: Tactile and soft touch sensation is absent over the forefoot and digital areas. SEMMES-ARMAND 5.07 MONOFILAMENT: unable to localize multiple points plantarly. Dermatologic: SKIN FINDINGS:Skin turgor is good. HYPERTROPHIC LESION: Left foot: Minimally raised, non-inflamed tyloma lesion sub-2nd metatarsal condyle left foot. Non-fluctuant, without ulcerative changes. NAIL PATHOLOGY: All digits: None are spared: Toenail dystrophy and clinical mycosis with lunula involvement: Discoloration, elongation, thickening, discoloration, clubbing, brittleness, crumbly texture, subtotal detachment, periungual hyperkeratosis, without drainage. MYCOSIS SCALE: total with debris; multiple digits. INTERDIGITAL MACERATION: clean, dry, non-inflamed. ULCER: no sign of ulceration or open wound . SKIN MYCOSIS: absent. SKIN PATHOLOGY: texture, turgor, hair growth, within normal limits . Ankle / Foot: FOOT: Central digits bilateral are dorsally contracted; fairly rigid hammertoe deformity 2nd digit left foot with MTP joint contracture. Left foot: Thickening through the midfoot area, consistent with stable coalesced Charcot neuroarthropathy changes. Unremarkable for active redness, warmth or swelling. Unremarkable for tenderness. RANGE OF MOTION: Functional ankle, subtalar and MTP joint range of motion without pain Radiology: Assessment/Plan 1. Chronic, stable onychodystrophy/mycosis all digits 2. Type II diabetes/IDDM 3. Diabetic peripheral neuropathy/loss of protective sensation (Q9). 4. 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 Plan: Notes: Patient remains well satisfied with conservative and palliative care. Diabetic education assessment relative to the high risk condition. Hygiene and skin care measures discussed. Encourage daily use of Eucerin, Aveeno or AmLactin. Encourage compliance with gradient compression sock therapy. May continue use of pneumatic cam walker left as needed. Encourage compliance with therapeutic footwear and accommodative orthoses. Discourage any barefoot walking. Procedure: Toenail Debridement: Aseptic technique: power/manual instrumentation: onychodebridement length and thickness, curretage of offending crypotic margins, sade-ungual debris, providing pressure relief, reducing shoe and digital trauma; reducing potential complications associated with at riskdiabetic neuropathic foot condition. This note was created with the assistance of a speech recognition program. While intending to generate a timely document that accurately reflects the content of the visit, no guarantee can be provided that every grammatical or spelling mistake has been or will be identified or corrected. Thank you for your understanding. Isabella Powell DPM documented in this encounterRay County Memorial [id number] History of Present illness Narrative* Blake Ng MD - 08/05/2024 12:08 PM ESTAssociated Problem(s): Pruritus Skin itchy but no rash. Likely related to dryness. Use hydroxyzine PRN. Use lotion several times a day. * Blake Ng MD - 08/05/2024 12:08 PM ESTAssociated Problem(s): Nocturnal leg cramps Frequent cramps and check labs. Increase water intake and stretch at bedtime. OTC supplement helps and try nightly prior to bed. If no improvement can try flexeril at bedtime. * Blake Ng MD - 08/05/2024 12:08 PM ESTAssociated Problem(s): Medicare annual wellness visit, subsequent Reviewed labs. Discussed proper diet and regular aerobic exercise. Need aerobic exercise 5-6 days aweek for 30 minutes at a time. Smaller portions and limit total calories. Tetanus every 10 years. Advised not to smoke. * Blake Ng MD - 08/05/2024 10:30 AM EST Images from the original note were not included. Subjective Patient ID: Zach Chamorro is a 79 y.o. male who presents for Medicare Annual Wellness Visit Subsequent (wellness). Presents for medicare annual wellness visit. Patient stable today. Weight unchanged over the past year. Tries to stay active around the house but no regular exercise. Tries to watch diet and eat healthy. Increased fruits and vegetables. Smaller portions and limits snacking. Tries to limit total daily calories. Reviewed labs. Reports BS stable around 130. Eye exam scheduled in 2 weeks. C/o itching to back for several weeks. scratches but not notice any rash. Skin rough but not using lotion. No change in medication orfoods. C/o nocturnal leg cramps for months. Wakes up from sleep with cramping in leg and most commonly in left calf. Severe pain and tightness in muscle. Using OTC leg cramp relief and helps. C/o cramps about 2-3 times a week. Review of Systems Constitutional: Negative for fatigue. Respiratory: Negative for cough, shortness of breath and wheezing. Cardiovascular: Negative for chest pain and palpitations. Gastrointestinal: Negative for abdominal pain, diarrhea, [...] Items Addressed This Visit Benign essential hypertension ([facility]) Type 2 diabetes mellitus with hyperglycemia, with long-term current use of insulin ([facility]) Relevant Orders Hemoglobin A1c Microalbumin / creatinine, urine ratio Encounter for long-term current use of medication Relevant Orders Basic metabolic panel Magnesium Medicare annual wellness visit, subsequent - Primary Reviewed labs. Discussed proper diet and regular aerobic exercise. Need aerobic exercise 5-6 days aweek for 30 minutes at a time. Smaller portions and limit total calories. Tetanus every 10 years. Advised not to smoke. Nocturnal leg cramps Frequent cramps and check labs. Increase water intake and stretch at bedtime. OTC supplement helps and try nightly prior to bed. If no improvement can try flexeril at bedtime. Pruritus Skin itchy but no rash. Likely related to dryness. Use hydroxyzine PRN. Use lotion several times a day. Relevant Medications hydrOXYzine HCl (Atarax) 25 MG tablet documented in this encounterRay County Memorial [id number] History of Present illness Narrative* Symone Calero MD - 07/21/2024 9:45 AM EST Skin Check Location: Patient requests a skin examination from the waist up Dermatologic history: history of Actinic Keratosis Last visit: 1 year ago Follow up Diagnosis: Nummular eczema Location: ankles Last visit: 1 year ago Symptoms: red, scaly Status: stable Current treatment: Amlactin 12% lotion from knife edger. Has TAC 0.1% cream but does not use. Established patient All pertinent medical history, medications, and allergies were reviewed. General Exam: alert, oriented to person, place, and time, normal affect, well appearing Accompanied by spouse A complete skin exam was offered, pt declined. Areas not examined despite medical recommendation: From the waist down Scalp, Examined , exam limited by hair Head, Face Examined Neck Examined Chest Examined Back Examined Abdomen Examined Right arm Examined Left arm Examined Hands Examined Digits,nails: Examined Lymphatics: Not examined 1. Melanocytic nevus of trunk Torso - Posterior (Back) Scattered benign appearing, regular brown to light brown melanocytic papules and macules with similar morphology Counseled regarding these benign growths. Rarely, a nevus can develop into malignant melanoma, so any changing nevi should be promptly re-evaluated. 2. Seborrheic keratosis Stuck on verrucous, matthews-brown papules and plaques. Patient was counseled regarding these benign growths. Removal is normally not necessary, but they may be removed if they are symptomatic or for cosmetic reasons. 3. Lentigines Scattered matthews macules in sun-exposed areas. The patient was informed that lentigines are benign pigmented lesions that occur on sun-exposed andsun-damaged skin. No treatment is necessary. Recommended regular use of broad spectrum sunscreen SPF 30 or higher 4. Actinic keratosis (2) Left Temporal Scalp, Left Zygomatic Area Erythematous scaly papules Patient was counseled regarding these sun-induced growths that can develop into squamous cell carcinoma if left untreated. Discussed treatment with cryotherapy. It was emphasized that any treated lesions that fail to resolve should be re- evaluated. Cryotherapy performed today; see procedure note Diagnosis: Actinic keratosis Indication: Precancerous Location: see skin exam Consent: Verbal consent was obtained and risks were discussed, including, but not limited to risks of scarring, darker or community service specialist pigmentary changes, recurrence, incomplete removal and infection. Method: Liquid nitrogen was used to treat the lesion(s) with two 5-10 second freeze-thaw cycles. Number of lesions treated: 2 Post-procedure instructions: Instructions were given orally and in writing. The office will be contacted if the lesion fails to resolve despite treatment, or if a side effect develops such as abnormal crusting, scabbing, redness or tenderness Cryotherapy, skin lesion - Left Temporal Scalp, Left Zygomatic Area 5. Capillary angioma Scattered olvera-red papule(s). The patient was informed that angiomas are benign growths on the the skin. No treatment is necessary. 6. Melanocytic nevus of face, other location Head - Anterior (Face) Scattered benign appearing, regular brown to light brown melanocytic papules and macules with similar morphology Counseled regarding these benign growths. Rarely, a nevus can develop into malignant melanoma, so any changing nevi should be promptly re-evaluated. 7. Epidermal inclusion cyst Right Upper Back Subcutaneous, mobile nodule with central punctum. Patient was counseled regarding cysts. Although benign, cysts often slowly enlarge and can occasionally become inflamed. Discussed the only way to definitively diagnose the lesion would be to have itremoved and tested. Discussed treatment options including observation vs. excision. Patient elected for observation. Notify office if lesion is enlarging or becomes symptomatic. 8. Nummular eczema Right Lower Leg - Anterior Patches of erythema and scale. Stable at this time. Discussed that nummular eczema is a chronic condition that can be controlled but not cured. Continue Amlactin 12% cream every day, continue Triamcinolone 0.1% cream bid prn when flared, hold if smooth/asymptomatic. Encouraged daily moisturizing and gentle cleansers to prevent flares. Notify office if flaring despite treatment. Declines refill at this time. Next Visit: 1 year documented in this encounterRay County Memorial [id number] History of Present illness Narrative* Isabella Powell DPM - 07/07/2024 9:30 AM EST Images from the original note were not included. Subjective Patient ID: Zach Chamorro is a 78 y.o. male who presents for DM Foot Care (PCP: Dr. Hernandez DU 06/30/24, A1C: 7.1 (01/2024), BS: 190). HPI HPI Onychomycosis/Toenail Fungus: patient presents today requesting nail care. Toenail deformity. Location: Identifies all digits as deformed, discolored and problematic. Duration: Chronic, stable deformity multiple years duration. Severity of symptoms: mild pressure, acknowledging diabetic neuropathy. Onset: gradual, without injury or trauma. Status: Problematic/mildly symptomatic over the past several weeks or so. Context: hard to trim , hard to reach ; self-care iis difficult, ineffective and not practical; exposing patient to considerable risk. Family members unable to provide effective care. Characteristics: ingrowing, discolored, thickened, /lifting, pressure , crusty; without bleeding or drainage. Relieved by: Palliative care provides effective transient symptom relief; reduces risk of associated complications. Risk factors: medical comorbidities. Polypharmacy. Aspirin therapy. type II diabetes/IDDM. Diabeticperipheral neuropathy. Toenail deformity. Shoe and/or digital trauma and related complications. Aggravated by: shoe gear , pressure, walking, catching and snagging on clothing etc. . Medications Current Outpatient Medications: Accu-Chek Softclix Lancets lancets, USE DIRECTED to test BLOOD SUGAR THREE TIMES DAILY, Disp: 100 each, Rfl: 2 allopurinol (Zyloprim) 300 MG tablet, Take 1 tablet (300 mg) by mouth Daily, Disp: 90 tablet, Rfl: 3 aspirin 81 MG EC tablet, 1 (one) time each day at the same time, Disp: , Rfl: Blood Glucose Monitoring Suppl (True Metrix Meter) w/Device kit, 1 each in the morning and 1 each in the evening and 1 each before bedtime., Disp: 1 kit, Rfl: 0 cephalexin (Keflex) 500 MG capsule, Take 4 pills 30-60 mins before dental appointment with food, Disp: 4 capsule, Rfl: 3 Coenzyme Q10 (Co Q-10) 100 MG chewable tablet, , Disp: , Rfl: Cyanocobalamin (Vitamin B12) 1000 MCG tablet controlled-release, 1 (one) time each day at the same time., Disp: , Rfl: esomeprazole (NexIUM) [address] capsule, Take 40 mg by mouth in the morning. Take before meals., Disp: , Rfl: ferrous sulfate 325 (65 Fe) MG tablet, 1 (one) time each day at the same time., Disp: , Rfl: glucose blood (True Metrix Blood Glucose Test) test strip, 1 each by Other route in the morning and1 each in the evening and 1 each before bedtime., Disp: 100 each, Rfl: 11 insulin glargine (Lantus SoloStar) 100 UNIT/ML pen, Inject 45 Units under the skin at bedtime, Disp: , Rfl: insulin glargine (Lantus) 100 UNIT/ML injection, Inject 45 Units under the skin at bedtime, Disp: 45 mL, Rfl: 3 insulin syringe-needle U-100 (GNP Insulin Syringes 31Gx5/16 ) 31G X 5/16 0.3 mL misc, Use as needed, Disp: 100 each, Rfl: 3 insulin syringe-needle U-100 (TechLITE Insulin Syringe) 31G X 5/16 1 mL misc, As needed, Disp: 100each, Rfl: 3 lisinopril 20 MG tablet, Take 1 tablet (20 mg) by mouth 1 (one) time each day at the same time, Disp: 90 tablet, Rfl: 3 metFORMIN (Glucophage) 1000 MG tablet, Take 1 tablet (1,000 mg) by mouth in the morning and 1 tablet (1,000 mg) in the evening. Take with meals., Disp: 180 tablet, Rfl: 3 metoprolol succinate XL (Toprol-XL) 50 MG 24 hr tablet, Take 1 tablet (50 mg) by mouth Daily, Disp:90 tablet, Rfl: 3 Multiple Vitamin (Multi Vitamin) tablet, 1 (one) time each day at the same time., Disp: , Rfl: Multiple Vitamins-Minerals (PreserVision AREDS) tablet, as directed Orally, Disp: , Rfl: rosuvastatin (Crestor) 10 MG tablet, Take 1 tablet (10 mg) by mouth in the morning., Disp: 90 tablet, Rfl: 3 semaglutide (Ozempic, 1 MG/DOSE,) 4 MG/3ML solution pen-injector, Inject 1 mg under the skin 1 (one) time per week, Disp: 3 each, Rfl: 3 tadalafil (Cialis) 20 MG tablet, Take 20 mg by mouth, Disp: , Rfl: tamsulosin (Flomax) 0.4 MG 24 hr capsule, Take 1 capsule (0.4 mg) by mouth Daily, Disp: 90 capsule,Rfl: 3 Allergies Patient has no known allergies. Past Surgical History Past Surgical History: Procedure Laterality Date CATARACT EXTRACTION Bilateral 2018 COLONOSCOPY 05/15/2022 CT GUIDED TRANSVAGINAL TRANSRECTAL FLUID DRAIN 08/29/2017 CT GUIDED TRANSVAGINAL TRANSRECTAL FLUID DRAIN 08/29/2017 HEEL SPUR EXCISION 1995 KIDNEY STONE SURGERY 2009 ablation KNEE SURGERY Left arthroscopy OTHER SURGICAL HISTORY 2021 radiation for prostate REVERSE TOTAL SHOULDER ARTHROPLASTY Right 2018 JAB SHOULDER SURGERY Right 05/13/2018 TONSILLECTOMY Family History Family History Problem Relation Name Age of Onset Hypertension Mother Diabetes Mother Stroke Mother Parkinsonism Father Diabetes Brother Heart disease Brother Hypertension Brother Diabetes Son Melanoma Neg Hx Objective General Examination: GENERAL EXAMINATION: Alert and oriented. Pleasant disposition. His spouse, Naila is present. FOOT EXAM: Date of Last Foot Exam 07/07/2024 Sensory testing performed: sensations diminished Sensory and motor testing performed: strength normal Pedal pulse taking performed: 1+ Vascular: DORSALIS PEDIS PULSE: bilaterally, 1/4 . POSTERIOR TIBIAL PULSE: bilaterally, 1/4 . TEMPERATURE GRADIENT: warm to warm. EDEMA: Mild, non-pitting swelling of the left ankle extending to the midfoot. Minimal swelling of the right ankle. Mild stasis skin changes and pigmentation bilateral. CAPILLARY FILLING TIME(sec): capillary fill intact bilateral digits less than 3 secs . Neurologic: MUSCLE POWER: No focal deficits. TINELS SIGN: Negative along the tarsal tunnel. VIBRATORY: Absent at the MTP joints. SHARP SENSATION: Tactile and soft touch sensation is absent over the forefoot and digital areas. SEMMES-ARMAND 5.07 MONOFILAMENT: unable to localize multiple points plantarly. Dermatologic: SKIN FINDINGS:Skin turgor is good. HYPERTROPHIC LESION: Left foot: Minimally raised, non-inflamed tyloma lesion sub-2nd metatarsal condyle left foot. Non-fluctuant, without ulcerative changes. NAIL PATHOLOGY: All digits: None are spared: Toenail dystrophy and clinical mycosis with lunula involvement: Discoloration, elongation, thickening, discoloration, clubbing, brittleness, crumbly texture, subtotal detachment, periungual hyperkeratosis, without drainage. MYCOSIS SCALE: total with debris; multiple digits. INTERDIGITAL MACERATION: clean, dry, non-inflamed. ULCER: no sign of ulceration or open wound . SKIN MYCOSIS: absent. SKIN PATHOLOGY: texture, turgor, hair growth, within normal limits . Ankle / Foot: FOOT: Central digits bilateral are dorsally contracted; fairly rigid hammertoe deformity 2nd digit left foot with MTP joint contracture. Left foot: Thickening through the midfoot area, consistent with coalesced Charcot neuroarthropathy changes. Unremarkable for active redness, warmth or swelling. Unremarkable for tenderness. RANGE OF MOTION: Functional ankle, subtalar and MTP joint range of motion without pain Radiology: Assessment/Plan 1. Chronic, stable onychodystrophy/mycosis all digits 2. Type II diabetes/IDDM 3. Diabetic peripheral neuropathy/loss of protective sensation (Q9). 4. 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 Plan: Notes: Patient remains well satisfied with conservative and palliative care. Diabetic education assessment relative to the high risk condition. Hygiene and skin care measures discussed. Encourage daily use of Eucerin, Aveeno or AmLactin. Encourage compliance with gradient compression sock therapy. Encourage compliance with therapeutic footwear and accommodative orthoses. Discourage any barefoot walking. Procedure: Toenail Debridement: Aseptic technique: power/manual instrumentation: onychodebridement length and thickness, curretage of offending crypotic margins, sade-ungual debris, providing pressure relief, reducing shoe and digital trauma; reducing potential complications associated with at riskdiabetic neuropathic foot condition. This note was created with the assistance of a speech recognition program. While intending to generate a timely document that accurately reflects the content of the visit, no guarantee can be provided that every grammatical or spelling mistake has been or will be identified or corrected. Thank you for your understanding. Isabella Powell DPM documented in this [facility]01-27-2025 Instructions* Patient Instructions* Isabella Powell DPM - 07/07/2024 9:30 AM EST As noted documented in this [facility]01-10-2025 History of Present illness Narrative* Blake Ng MD - 06/20/2024 10:05 AM ESTAssociated Problem(s): Type 2 diabetes mellitus with hyperglycemia, with long-term current use of in sulin ([facility]) BS stable and warned prednisone will raise BS. Check BS TID. Stick to ADA diet and limit carbs. * Blake Ng MD - 06/20/2024 10:04 AM ESTAssociated Problem(s): Acute non- recurrent maxillary sinusitis Take antibiotics for 7 days. Use prednisone for inflammation. Use sudafed or other decongestants asneeded. Use Robitussin or Robitussin-DM for cough. Can use afrin for congestion but no longer than 3 days. Can use Mucinex to bring up phlegm. Use Motrin or Tylenol as needed for fever, aches, or pains. Increase fluid intake and rest. Should improve over next 5-7 days and if no better or worse callfor re-evaluation. * Blake Ng MD - 06/20/2024 9:15 AM EST Images from the original note were not included. Subjective Patient ID: Zach Chamorro is a 78 y.o. male who presents for Cough, Sinusitis, and Epistaxis (Nose Bleed). C/o cough, congestion, and rhinorrhea x 1 week. Afebrile. Severe fatigue and no energy. Mild cough dry and nonproductive. Denies chest tightness or SOB. BOONE and sinus pressure in forehead and cheeks along with postnasal drip. Pain into teeth. Ears plugged and popping. Denies sore throat or pain to swallow. Mild nausea. Denies recent sick contacts. Using OTC medication and mild relief. No improvement in symptoms since onset. Reports BS stable around 115. Review of Systems Constitutional: Negative for fatigue. Respiratory: Negative for cough, shortness of breath and wheezing. Cardiovascular: Negative for chest pain and palpitations. Gastrointestinal: Negative for abdominal pain, diarrhea, [...] Assessment/Plan Problem List Items Addressed This Visit Type 2 diabetes mellitus with hyperglycemia, with long-term current use of insulin ([facility]) BS stable and warned prednisone will raise BS. Check BS TID. Stick to ADA diet and limit carbs. Acute non-recurrent maxillary sinusitis - Primary Take antibiotics for 7 days. Use prednisone for inflammation. Use sudafed or other decongestants asneeded. Use Robitussin or Robitussin-DM for cough. Can use afrin for congestion but no longer than 3 days. Can use Mucinex to bring up phlegm. Use Motrin or Tylenol as needed for fever, aches, or pains. Increase fluid intake and rest. Should improve over next 5-7 days and if no better or worse callfor re-evaluation. Relevant Medications predniSONE (Deltasone) 50 MG tablet levoFLOXacin (Levaquin) 750 MG tablet documented in this encounterRay County Memorial [id number] History of Present illness Narrative* Isabella Powell, TANESHA - 05/15/2024 9:45 AM EST Images from the original note were not included. Subjective Patient ID: Zach Chamorro is a 78 y.o. male who presents for Follow-up (Established pt presents today for 1 month fuv for left foot pain and swelling, pt states has not been painful, but still swelling. PCP: Dr. Ng LV 01/28/24, A1C: 6.5, BS: 86, SS: 12). 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 Patient admits to essentially non-compliance with pneumatic cam walker immobilization; his spouse, Naila crowe. Generally notes less swelling of the left midfoot. Denies any obvious discoloration or warmth. Denies bleeding or drainage. Has noted no obvious collapse or change in alignment of the left foot. Relates no specific pain, acknowledges diabetic neuropathy. Risk factors: medical comorbidities. Polypharmacy. Aspirin therapy. type II diabetes/IDDM. Diabeticperipheral neuropathy. Toenail deformity. Shoe and/or digital trauma and related complications. Aggravated by: shoe gear , pressure, walking, catching and snagging on clothing etc. . Medications Current Outpatient Medications: Accu-Chek Softclix Lancets lancets, USE DIRECTED to test BLOOD SUGAR THREE TIMES DAILY, Disp: 100 each, Rfl: 2 allopurinol (Zyloprim) 300 MG tablet, TAKE 1 TABLET DAILY, Disp: 90 tablet, Rfl: 3 aspirin 81 MG EC tablet, 1 (one) time each day at the same time, Disp: , Rfl: Blood Glucose Monitoring Suppl (True Metrix Meter) w/Device kit, 1 each in the morning and 1 each in the evening and 1 each before bedtime., Disp: 1 kit, Rfl: 0 cephalexin (Keflex) 500 MG capsule, Take 4 pills 30-60 mins before dental appointment with food, Disp: 4 capsule, Rfl: 3 Coenzyme Q10 (Co Q-10) 100 MG chewable tablet, , Disp: , Rfl: Cyanocobalamin (Vitamin B12) 1000 MCG tablet controlled-release, 1 (one) time each day at the same time., Disp: , Rfl: esomeprazole (NexIUM) [address] capsule, Take 40 mg by mouth in the morning. Take before meals., Disp: , Rfl: ferrous sulfate 325 (65 Fe) MG tablet, 1 (one) time each day at the same time., Disp: , Rfl: glucose blood (True Metrix Blood Glucose Test) test strip, 1 each by Other route in the morning and1 each in the evening and 1 each before bedtime., Disp: 100 each, Rfl: 11 insulin glargine (Lantus SoloStar) 100 UNIT/ML pen, Inject 45 Units under the skin at bedtime, Disp: , Rfl: insulin glargine (Lantus) 100 UNIT/ML injection, Inject 45 Units under the skin at bedtime, Disp: 45 mL, Rfl: 3 insulin syringe-needle U-100 (GNP Insulin Syringes 31Gx5/16 ) 31G X 5/16 0.3 mL misc, Use as needed, Disp: 100 each, Rfl: 3 insulin syringe-needle U-100 (TechLITE Insulin Syringe) 31G X 5/16 1 mL misc, As needed, Disp: 100each, Rfl: 3 lisinopril 20 MG tablet, Take 1 tablet (20 mg) by mouth 1 (one) time each day at the same time, Disp: 90 tablet, Rfl: 3 metFORMIN (Glucophage) 1000 MG tablet, Take 1 tablet (1,000 mg) by mouth in the morning and 1 tablet (1,000 mg) in the evening. Take with meals., Disp: 180 tablet, Rfl: 3 metoprolol succinate XL (Toprol-XL) 50 MG 24 hr tablet, Take 1 tablet (50 mg) by mouth Daily, Disp:90 tablet, Rfl: 3 Multiple Vitamin (Multi Vitamin) tablet, 1 (one) time each day at the same time., Disp: , Rfl: Multiple Vitamins-Minerals (PreserVision AREDS) tablet, as directed Orally, Disp: , Rfl: rosuvastatin (Crestor) 10 MG tablet, Take 1 tablet (10 mg) by mouth in the morning., Disp: 90 tablet, Rfl: 3 semaglutide (Ozempic, 1 MG/DOSE,) 4 MG/3ML solution pen-injector, Inject 1 mg under the skin 1 (one) time per week, Disp: 3 each, Rfl: 3 tadalafil (Cialis) 20 MG tablet, Take 20 mg by mouth, Disp: , Rfl: tamsulosin (Flomax) 0.4 MG 24 hr capsule, TAKE 1 CAPSULE DAILY, Disp: 90 capsule, Rfl: 3 Allergies Patient has no known allergies. Past Surgical History Past Surgical History: Procedure Laterality Date CATARACT EXTRACTION Bilateral 2019 COLONOSCOPY 05/15/2022 CT GUIDED TRANSVAGINAL TRANSRECTAL FLUID DRAIN 08/29/2017 CT GUIDED TRANSVAGINAL TRANSRECTAL FLUID DRAIN 08/29/2017 HEEL SPUR EXCISION 1994 KIDNEY STONE SURGERY 2008 ablation KNEE SURGERY Left arthroscopy OTHER SURGICAL HISTORY 2021 radiation for prostate REVERSE TOTAL SHOULDER ARTHROPLASTY Right 2018 JAB SHOULDER SURGERY Right 05/13/2018 TONSILLECTOMY Family History Family History Problem Relation Name Age of Onset Hypertension Mother Diabetes Mother Stroke Mother Parkinsonism Father Diabetes Brother Heart disease Brother Hypertension Brother Diabetes Son Melanoma Neg Hx Objective General Examination: GENERAL EXAMINATION: Alert and oriented. Pleasant disposition. His spouse, Naila is present. Presents wearing therapeutic footwear with accommodative orthoses. FOOT EXAM: Date of Last Foot Exam 05/15/2024 Sensory testing performed: sensations diminished Sensory and motor testing performed: strength normal Pedal pulse taking performed: 1+ Vascular: DORSALIS PEDIS PULSE: bilaterally, 1/4 . POSTERIOR TIBIAL PULSE: bilaterally, 1/4 . TEMPERATURE GRADIENT: warm to warm. EDEMA: Mild, non-pitting swelling of the left ankle extending to the midfoot. Minimal swelling of the right ankle. Mild stasis skin changes and pigmentation bilateral. CAPILLARY FILLING TIME(sec): capillary fill intact bilateral digits less than 3 secs . Neurologic: MUSCLE POWER: No focal deficits. TINELS SIGN: Negative along the tarsal tunnel. VIBRATORY: Absent at the MTP joints. SHARP SENSATION: Tactile and soft touch sensation is absent over the forefoot and digital areas. SEMMES-ARMAND 5.07 MONOFILAMENT: unable to localize multiple points plantarly. Dermatologic: SKIN FINDINGS: Skin turgor is good. HYPERTROPHIC LESION: Left foot: Minimally raised, non-inflamed tyloma lesion sub-2nd metatarsal condyle left foot. Non-fluctuant, without ulcerative changes. NAIL PATHOLOGY: All digits: None are spared: Toenail dystrophy and clinical mycosis. MYCOSIS SCALE: total with debris; multiple digits. INTERDIGITAL MACERATION: clean, dry, non-inflamed. ULCER: no sign of ulceration or open wound . SKIN MYCOSIS: absent. SKIN PATHOLOGY: texture, turgor, hair growth, within normal limits . Ankle / Foot: FOOT: Central digits bilateral are dorsally contracted; fairly rigid hammertoe deformity 2nd digit left foot with MTP joint contracture RANGE OF MOTION: Functional ankle, subtalar and MTP joint range of motion without pain. FOCUSED EXAM LEFT FOOT AND ANKLE: Mild loss of medial column contour, with plantar prominence at the metatarsal-cuneiform joint. Mild localized swelling, without distinct warmth or erythema. Unremarkable for soft tissue fluctuance or gross instability of Lisfranc's or midtarsal joint. Relaxed hindfoot position remains vertical. Radiology: Radiographs: 3 views left foot: Weight-bearing: DP, oblique, lateral: 12/10/2023: There are no distinct or interval changes from most recent views of 04/14/2024. Again unremarkable for acute osseousor joint pathology. Unremarkable for any acute fragmentation or medial column collapse. 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 Radiographs: 3 views left foot: Weight-bearing: DP, oblique, lateral: 04/14/2024: Unremarkable for acute osseous or joint pathology. 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 Slight widening of the medial cuneiform and 2nd metatarsal base. No distinct erosive, lytic or fragmentation is appreciated. Unremarkable for fracture or stress fracture changes. Mild loss of the medial column contour. Assessment/Plan 1. High suspicion for early changes of Charcot neuroarthropathy of the left midfoot. No interval radiographic changes noted. 2. Type II diabetes/IDDM 3. Diabetic peripheral neuropathy/loss of protective sensation (Q9). Plan: Notes: Review of clinical and x-ray findings, differential diagnosis, etiology and contributing/aggravating factors, high-risk nature of the condition, treatment strategy, rationale and objectives. Encourage compliance with pneumatic cam walker immobilization. Continue with gradient compression sock therapy. Discourage any barefoot walking. Diabetic education and assessment. Procedure: This note was created with the assistance of a speech recognition program. While intending to generate a timely document that accurately reflects the content of the visit, no guarantee can be provided that every grammatical or spelling mistake has been or will be identified or corrected. Thank you for your understanding. Isabella Powell DPM documented in this [facility]12-05-2024 Instructions* Patient Instructions* Isabella Powell DPM - 05/15/2024 9:45 AM EST As noted documented in this encounterRay County [facility] [id number] Telephone encounter Note* Telephone Encounter - Shayna Tangcamilo - 04/21/2024 10:57 AM EST Patient is keeping diabetic shoes [facility] [id number] Miscellaneous Notes* Telephone Encounter - Shayna Britton - 04/21/2024 10:57 AM EST Patient is keeping diabetic shoes documented in this encounterRay County Memorial [id number] History of Present illness Narrative* Isabella Powell, [facility] - 04/14/2024 2:45 PM EST Images from the original note were not included. Subjective Patient ID: Zach Chamorro is a 78 y.o. male who presents for Foot Pain (Established pt presents today with cocnertns of painful lump on left foot in arch. Noticed this past weekend. PCP: Dr. Hernandez DU 01/28/24, A1C: 7.1, BS:, SS: 12). HPI Chief complaint: Persistent swelling with deformity medial column of the left foot. For the most part, both feel the swelling has subsided, but remains present. Neither feel there has been any further collapse of the medial column. Patient reports little if any pain or discomfort; acknowledging diabetic peripheral neuropathy. Well satisfied with recently fitted therapeutic footwear and accommodative orthoses; but has worn them sparingly. His spouse is present. Risk factors: medical comorbidities. Polypharmacy. Aspirin therapy. type II diabetes/IDDM. Diabeticperipheral neuropathy. Toenail deformity. Shoe and/or digital trauma and related complications. Aggravated by: shoe gear , pressure, walking, catching and snagging on clothing etc. . Medications Current Outpatient Medications: Accu-Chek Softclix Lancets lancets, USE DIRECTED to test BLOOD SUGAR THREE TIMES DAILY, Disp: 100 each, Rfl: 2 allopurinol (Zyloprim) 300 MG tablet, TAKE 1 TABLET DAILY, Disp: 90 tablet, Rfl: 3 aspirin 81 MG EC tablet, 1 (one) time each day at the same time, Disp: , Rfl: Blood Glucose Monitoring Suppl (True Metrix Meter) w/Device kit, 1 each in the morning and 1 each in the evening and 1 each before bedtime., Disp: 1 kit, Rfl: 0 cephalexin (Keflex) 500 MG capsule, Take 4 pills 30-60 mins before dental appointment with food, Disp: 4 capsule, Rfl: 3 Coenzyme Q10 (Co Q-10) 100 MG chewable tablet, , Disp: , Rfl: Cyanocobalamin (Vitamin B12) 1000 MCG tablet controlled-release, 1 (one) time each day at the same time., Disp: , Rfl: esomeprazole (NexIUM) [address] capsule, Take 40 mg by mouth in the morning. Take before meals., Disp: , Rfl: ferrous sulfate 325 (65 Fe) MG tablet, 1 (one) time each day at the same time., Disp: , Rfl: glucose blood (True Metrix Blood Glucose Test) test strip, 1 each by Other route in the morning and1 each in the evening and 1 each before bedtime., Disp: 100 each, Rfl: 11 insulin glargine (Lantus SoloStar) 100 UNIT/ML pen, Inject 45 Units under the skin at bedtime, Disp: , Rfl: insulin glargine (Lantus) 100 UNIT/ML injection, Inject 45 Units under the skin at bedtime, Disp: 45 mL, Rfl: 3 insulin syringe-needle U-100 (GNP Insulin Syringes 31Gx5/16 ) 31G X 5/16 0.3 mL misc, Use as needed, Disp: 100 each, Rfl: 3 insulin syringe-needle U-100 (TechLITE Insulin Syringe) 31G X 5/16 1 mL misc, As needed, Disp: 100each, Rfl: 3 lisinopril 20 MG tablet, Take 1 tablet (20 mg) by mouth 1 (one) time each day at the same time, Disp: 90 tablet, Rfl: 3 metFORMIN (Glucophage) 1000 MG tablet, Take 1 tablet (1,000 mg) by mouth in the morning and 1 tablet (1,000 mg) in the evening. Take with meals., Disp: 180 tablet, Rfl: 3 metoprolol succinate XL (Toprol-XL) 50 MG 24 hr tablet, Take 1 tablet (50 mg) by mouth Daily, Disp:90 tablet, Rfl: 3 Multiple Vitamin (Multi Vitamin) tablet, 1 (one) time each day at the same time., Disp: , Rfl: Multiple Vitamins-Minerals (PreserVision AREDS) tablet, as directed Orally, Disp: , Rfl: rosuvastatin (Crestor) 10 MG tablet, Take 1 tablet (10 mg) by mouth in the morning., Disp: 90 tablet, Rfl: 3 semaglutide (Ozempic, 1 MG/DOSE,) 4 MG/3ML solution pen-injector, Inject 1 mg under the skin 1 (one) time per week, Disp: 3 each, Rfl: 3 tadalafil (Cialis) 20 MG tablet, Take 20 mg by mouth, Disp: , Rfl: tamsulosin (Flomax) 0.4 MG 24 hr capsule, TAKE 1 CAPSULE DAILY, Disp: 90 capsule, Rfl: 3 Allergies Patient has no known allergies. Past Surgical History Past Surgical History: Procedure Laterality Date CATARACT EXTRACTION Bilateral 2018 COLONOSCOPY 05/15/2022 CT GUIDED TRANSVAGINAL TRANSRECTAL FLUID DRAIN 08/29/2017 CT GUIDED TRANSVAGINAL TRANSRECTAL FLUID DRAIN 08/29/2017 HEEL SPUR EXCISION 1994 KIDNEY STONE SURGERY 2009 ablation KNEE SURGERY Left arthroscopy OTHER SURGICAL HISTORY 2021 radiation for prostate REVERSE TOTAL SHOULDER ARTHROPLASTY Right 2018 JAB SHOULDER SURGERY Right 05/13/2018 TONSILLECTOMY Family History Family History Problem Relation Name Age of Onset Hypertension Mother Diabetes Mother Stroke Mother Parkinsonism Father Diabetes Brother Heart disease Brother Hypertension Brother Diabetes Son Melanoma Neg Hx Objective General Examination: GENERAL EXAMINATION: Alert and oriented. Pleasant disposition. His spouse is present. FOOT EXAM: Date of Last Foot Exam 04/14/2024 Sensory testing performed: sensations diminished Sensory and motor testing performed: strength normal Pedal pulse taking performed: 1+ Vascular: DORSALIS PEDIS PULSE: bilaterally, 1/4 . POSTERIOR TIBIAL PULSE: bilaterally, 1/4 . TEMPERATURE GRADIENT: warm to warm. EDEMA: Mild, non-pitting swelling of the left ankle extending to the midfoot. Minimal swelling of the right ankle. Mild stasis skin changes and pigmentation bilateral. CAPILLARY FILLING TIME(sec): capillary fill intact bilateral digits less than 3 secs . Neurologic: MUSCLE POWER: No focal deficits. TINELS SIGN: Negative along the tarsal tunnel. VIBRATORY: Absent at the MTP joints. SHARP SENSATION: Tactile and soft touch sensation is absent over the forefoot and digital areas. SEMMES-ARMAND 5.07 MONOFILAMENT: unable to localize multiple points plantarly. Dermatologic: SKIN FINDINGS: Skin turgor is good. HYPERTROPHIC LESION: Left foot: Minimally raised, non-inflamed tyloma lesion sub-2nd metatarsal condyle left foot. Non-fluctuant, without ulcerative changes. NAIL PATHOLOGY: All digits: None are spared: Toenail dystrophy and clinical mycosis. MYCOSIS SCALE: total with debris; multiple digits. INTERDIGITAL MACERATION: clean, dry, non-inflamed. ULCER: no sign of ulceration or open wound . SKIN MYCOSIS: absent. SKIN PATHOLOGY: texture, turgor, hair growth, within normal limits . Ankle / Foot: FOOT: Central digits bilateral are dorsally contracted; fairly rigid hammertoe deformity 2nd digit left foot with MTP joint contracture RANGE OF MOTION: Functional ankle, subtalar and MTP joint range of motion without pain. FOCUSED EXAM LEFT FOOT AND ANKLE: Mild loss of medial column contour, with plantar prominence at the metatarsal-cuneiform joint. Mild localized swelling, without distinct warmth or erythema. Unremarkable for soft tissue fluctuance or gross instability of Lisfranc's or midtarsal joint. Relaxed hindfoot position remains vertical. Radiology: 3 views left foot: Weight-bearing: DP, oblique, lateral: 04/14/2024: Unremarkable for acute osseous or joint pathology. Navicular-cuneiform fault of the medial column, with degenerative arthritic changes of the navicular- cuneiform joint and 2nd metatarsal cuneiform joint. Slight wideningof the medial cuneiform and 2nd metatarsal base. No distinct erosive, lytic or fragmentation is appreciated. Unremarkable for fracture or stress fracture changes. Mild loss of the medial column contour. Assessment/Plan 1. High suspicion for early changes of Charcot neuroarthropathy of the left midfoot. 2. Type II diabetes/IDDM 3. Diabetic peripheral neuropathy/loss of protective sensation (Q9). Plan: Notes: Review of clinical and x-ray findings, differential diagnosis, etiology and contributing/aggravating factors, high-risk nature of the condition, treatment strategy, rationale and objectives. Supportive strapping with a last icon compression left foot 5 days. Sizing and fitting of pneumatic cam walker left foot: Indicated to provide appropriate immobilization and stabilization of the ankle, hindfoot and midfoot structures; reducing potential for collapsing changes associated with Charcot neuroarthropathy. Recommend walker assist. Continue with gradient compression sock therapy. Limited activity as recommended. Diabetic education and assessment. Procedure: This note was created with the assistance of a speech recognition program. While intending to generate a timely document that accurately reflects the content of the visit, no guarantee can be provided that every grammatical or spelling mistake has been or will be identified or corrected. Thank you for your understanding. Isabella Powell DPM documented in this [facility]11-04-2024 Instructions* Patient Instructions* Isabella Powell DPM - 04/14/2024 2:45 PM EST Instructions as noted documented in this [facility]10-23-2024 History of Present illness Narrative* Isabella Powell DPM - 04/02/2024 1:30 PM EDT Images from the original note were not included. Subjective Patient ID: Zach Chamorro is a 78 y.o. 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 BS: 113 A1C: 7.1/Lv Dr. Ng 01/28/2024/SS: 12). HPI Presents today for fitting of Dr. Hurley therapeutic footwear and multi- laminate, multi-density accommodative orthoses. Offers no specific concerns or complaints. His spouse is present Risk factors: medical comorbidities. Polypharmacy. Aspirin therapy. type II diabetes/IDDM. Diabeticperipheral neuropathy. Toenail deformity. Shoe and/or digital trauma and related complications. Aggravated by: shoe gear , pressure, walking, catching and snagging on clothing etc. . Medications Current Outpatient Medications: Accu-Chek Softclix Lancets lancets, USE DIRECTED to test BLOOD SUGAR THREE TIMES DAILY, Disp: 100 each, Rfl: 2 allopurinol (Zyloprim) 300 MG tablet, TAKE 1 TABLET DAILY, Disp: 90 tablet, Rfl: 3 aspirin 81 MG EC tablet, 1 (one) time each day at the same time, Disp: , Rfl: Blood Glucose Monitoring Suppl (True Metrix Meter) w/Device kit, 1 each in the morning and 1 each in the evening and 1 each before bedtime., Disp: 1 kit, Rfl: 0 cephalexin (Keflex) 500 MG capsule, Take 4 pills 30-60 mins before dental appointment with food, Disp: 4 capsule, Rfl: 3 Coenzyme Q10 (Co Q-10) 100 MG chewable tablet, , Disp: , Rfl: Cyanocobalamin (Vitamin B12) 1000 MCG tablet controlled-release, 1 (one) time each day at the same time., Disp: , Rfl: esomeprazole (NexIUM) [address] capsule, Take 40 mg by mouth in the morning. Take before meals., Disp: , Rfl: ferrous sulfate 325 (65 Fe) MG tablet, 1 (one) time each day at the same time., Disp: , Rfl: glucose blood (True Metrix Blood Glucose Test) test strip, 1 each by Other route in the morning and1 each in the evening and 1 each before bedtime., Disp: 100 each, Rfl: 11 insulin glargine (Lantus SoloStar) 100 UNIT/ML pen, Inject 45 Units under the skin at bedtime, Disp: , Rfl: insulin syringe-needle U-100 (GNP Insulin Syringes 31Gx5/16 ) 31G X 5/16 0.3 mL misc, Use as needed, Disp: 100 each, Rfl: 3 insulin syringe-needle U-100 (TechLITE Insulin Syringe) 31G X 5/16 1 mL misc, As needed, Disp: 100each, Rfl: 3 lisinopril 20 MG tablet, Take 1 tablet (20 mg) by mouth 1 (one) time each day at the same time, Disp: 90 tablet, Rfl: 3 metFORMIN (Glucophage) 1000 MG tablet, Take 1 tablet (1,000 mg) by mouth in the morning and 1 tablet (1,000 mg) in the evening. Take with meals., Disp: 180 tablet, Rfl: 3 metoprolol succinate XL (Toprol-XL) 50 MG 24 hr tablet, Take 1 tablet (50 mg) by mouth Daily, Disp:90 tablet, Rfl: 3 Multiple Vitamin (Multi Vitamin) tablet, 1 (one) time each day at the same time., Disp: , Rfl: Multiple Vitamins-Minerals (PreserVision AREDS) tablet, as directed Orally, Disp: , Rfl: rosuvastatin (Crestor) 10 MG tablet, Take 1 tablet (10 mg) by mouth in the morning., Disp: 90 tablet, Rfl: 3 semaglutide (Ozempic, 1 MG/DOSE,) 4 MG/3ML solution pen-injector, Inject 1 mg under the skin 1 (one) time per week, Disp: 3 each, Rfl: 3 tadalafil (Cialis) 20 MG tablet, Take 20 mg by mouth, Disp: , Rfl: tamsulosin (Flomax) 0.4 MG 24 hr capsule, TAKE 1 CAPSULE DAILY, Disp: 90 capsule, Rfl: 3 Allergies Patient has no known allergies. Past Surgical History Past Surgical History: Procedure Laterality Date CATARACT EXTRACTION Bilateral 2018 COLONOSCOPY 05/15/2022 CT GUIDED TRANSVAGINAL TRANSRECTAL FLUID DRAIN 08/29/2017 CT GUIDED TRANSVAGINAL TRANSRECTAL FLUID DRAIN 08/29/2017 HEEL SPUR EXCISION 1994 KIDNEY STONE SURGERY 2009 ablation KNEE SURGERY Left arthroscopy OTHER SURGICAL HISTORY 2021 radiation for prostate REVERSE TOTAL SHOULDER ARTHROPLASTY Right 2018 JAB SHOULDER SURGERY Right 05/13/2018 TONSILLECTOMY Family History Family History Problem Relation Name Age of Onset Hypertension Mother Diabetes Mother Stroke Mother Parkinsonism Father Diabetes Brother Heart disease Brother Hypertension Brother Diabetes Son Melanoma Neg Hx Objective General Examination: GENERAL EXAMINATION: Alert and oriented. Pleasant disposition. His spouse is present. FOOT EXAM: Date of Last Foot Exam 03/24/2024 Sensory testing performed: sensations diminished Sensory and motor testing performed: strength normal Pedal pulse taking performed: 1+ Vascular: DORSALIS PEDIS PULSE: bilaterally, 1/4 . POSTERIOR TIBIAL PULSE: bilaterally, 1/4 . TEMPERATURE GRADIENT: warm to warm. EDEMA: Mild, non-pitting swelling of the left ankle extending to the midfoot. Minimal swelling of the right ankle. Mild stasis skin changes and pigmentation bilateral. CAPILLARY FILLING TIME(sec): capillary fill intact bilateral digits less than 3 secs . Neurologic: MUSCLE POWER: No focal deficits. TINELS SIGN: Negative along the tarsal tunnel. VIBRATORY: Absent at the MTP joints. SHARP SENSATION: Tactile and soft touch sensation is absent over the forefoot and digital areas. SEMMES-ARMAND 5.07 MONOFILAMENT: unable to localize multiple points plantarly. Dermatologic: SKIN FINDINGS: Skin turgor is good. HYPERTROPHIC LESION: Left foot: Minimally raised, non-inflamed tyloma lesion sub-2nd metatarsal condyle left foot. Non-fluctuant, without ulcerative changes. NAIL PATHOLOGY: All digits: None are spared: Toenail dystrophy and clinical mycosis. MYCOSIS SCALE: total with debris; multiple digits. INTERDIGITAL MACERATION: clean, dry, non-inflamed. ULCER: no sign of ulceration or open wound . SKIN MYCOSIS: absent. SKIN PATHOLOGY: texture, turgor, hair growth, within normal limits . Ankle / Foot: FOOT: Central digits bilateral are dorsally contracted; fairly rigid hammertoe deformity 2nd digit left foot with MTP joint contracture RANGE OF MOTION: Functional ankle, subtalar and MTP joint range of motion without pain Radiology: Assessment/Plan 1. Chronic, stable onychodystrophy/mycosis all digits 2. Type II diabetes/IDDM 3. Diabetic peripheral neuropathy/loss of protective sensation (Q9). Plan: Notes: Indications for therapeutic footwear and accommodative orthoses: As noted above: Type II diabetes/IDDM with known diabetic peripheral neuropathy and loss of protective sensation. Accommodate forefootand digital deformities. Offloading of forefoot and digital structures; dispersion of peak plantar pressures; reducing potential for skin breakdown, neuropathic ulcerative changes and any related complications. Accommodate swelling as necessary. Allow patient to maintain ADLs and walking activity; minimizing risk profile. Fitting of Dr. Hurley therapeutic footwear and multi-density, multi-laminate accommodative orthoses x 3 pair; heat molded per protocol informed in the weight-bearing position. All are noted to be ingood quality and therapeutic condition, with no flaws or defects noted. Patient able to effectively place each shoe without difficulty. Therapeutic fit, with sufficient space through the forefoot and digital areas. Patient is able to ambulate without difficulty, noting no perceived pressure points or heel slippage. Initial impression is favorable. All instructions are reviewed sufficient to his understanding relative to the acclimating process; emphasis on daily inspection for any sign of skin irritation, blister formation, heel slippage etc.;wearing of the shoes inside only until certain that return is not necessary. Goals, objectives and rationale are reviewed. All documents are reviewed in detail sufficient to his understanding, signed, dated and witnessed. Procedure: This note was created with the assistance of a speech recognition program. While intending to generate a timely document that accurately reflects the content of the visit, no guarantee can be provided that every grammatical or spelling mistake has been or will be identified or corrected. Thank you for your understanding. Isabella Powell DPM documented in this [facility]10-23-2024 Instructions* Patient Instructions* Isabella Powell DPM - 04/02/2024 1:30 PM EDT Acclimating instructions as noted documented in this [facility]10-16-2024 History of Present illness Narrative* Isabella Powell DPM - 03/26/2024 2:30 PM EDT Images from the original note were not included. Subjective Patient ID: Zach Chamorro is a 78 y.o. male who presents for Shoe Measure (Zach Chamorro is a 78 y.o. male who presents for DM Foot Care. BS: 113 A1C: 7.1/Lv Dr. Ng 01/28/2024/SS: 12). HPI Presents today for measurements to proceed with new therapeutic footwear and accommodative orthoses. Offers no specific concerns or complaints Risk factors: medical comorbidities. Polypharmacy. Aspirin therapy. type II diabetes/IDDM. Diabeticperipheral neuropathy. Toenail deformity. Shoe and/or digital trauma and related complications. Aggravated by: shoe gear , pressure, walking, catching and snagging on clothing etc. . Medications Current Outpatient Medications: Accu-Chek Softclix Lancets lancets, USE DIRECTED to test BLOOD SUGAR THREE TIMES DAILY, Disp: 100 each, Rfl: 2 allopurinol (Zyloprim) 300 MG tablet, TAKE 1 TABLET DAILY, Disp: 90 tablet, Rfl: 3 aspirin 81 MG EC tablet, 1 (one) time each day at the same time, Disp: , Rfl: Blood Glucose Monitoring Suppl (True Metrix Meter) w/Device kit, 1 each in the morning and 1 each in the evening and 1 each before bedtime., Disp: 1 kit, Rfl: 0 cephalexin (Keflex) 500 MG capsule, Take 4 pills 30-60 mins before dental appointment with food, Disp: 4 capsule, Rfl: 3 Coenzyme Q10 (Co Q-10) 100 MG chewable tablet, , Disp: , Rfl: Cyanocobalamin (Vitamin B12) 1000 MCG tablet controlled-release, 1 (one) time each day at the same time., Disp: , Rfl: esomeprazole (NexIUM) [address] capsule, Take 40 mg by mouth in the morning. Take before meals., Disp: , Rfl: ferrous sulfate 325 (65 Fe) MG tablet, 1 (one) time each day at the same time., Disp: , Rfl: glucose blood (True Metrix Blood Glucose Test) test strip, 1 each by Other route in the morning and1 each in the evening and 1 each before bedtime., Disp: 100 each, Rfl: 11 insulin glargine (Lantus SoloStar) 100 UNIT/ML pen, Inject 45 Units under the skin at bedtime, Disp: , Rfl: insulin syringe-needle U-100 (GNP Insulin Syringes 31Gx5/16 ) 31G X 5/16 0.3 mL misc, Use as needed, Disp: 100 each, Rfl: 3 insulin syringe-needle U-100 (TechLITE Insulin Syringe) 31G X 5/16 1 mL misc, As needed, Disp: 100each, Rfl: 3 lisinopril 20 MG tablet, Take 1 tablet (20 mg) by mouth 1 (one) time each day at the same time, Disp: 90 tablet, Rfl: 3 metFORMIN (Glucophage) 1000 MG tablet, Take 1 tablet (1,000 mg) by mouth in the morning and 1 tablet (1,000 mg) in the evening. Take with meals., Disp: 180 tablet, Rfl: 3 metoprolol succinate XL (Toprol-XL) 50 MG 24 hr tablet, Take 1 tablet (50 mg) by mouth Daily, Disp:90 tablet, Rfl: 3 Multiple Vitamin (Multi Vitamin) tablet, 1 (one) time each day at the same time., Disp: , Rfl: Multiple Vitamins-Minerals (PreserVision AREDS) tablet, as directed Orally, Disp: , Rfl: rosuvastatin (Crestor) 10 MG tablet, Take 1 tablet (10 mg) by mouth in the morning., Disp: 90 tablet, Rfl: 3 semaglutide (Ozempic, 1 MG/DOSE,) 4 MG/3ML solution pen-injector, Inject 1 mg under the skin 1 (one) time per week, Disp: 3 each, Rfl: 3 tadalafil (Cialis) 20 MG tablet, Take 20 mg by mouth, Disp: , Rfl: tamsulosin (Flomax) 0.4 MG 24 hr capsule, TAKE 1 CAPSULE DAILY, Disp: 90 capsule, Rfl: 3 Allergies Patient has no known allergies. Past Surgical History Past Surgical History: Procedure Laterality Date CATARACT EXTRACTION Bilateral 2018 COLONOSCOPY 05/15/2022 CT GUIDED TRANSVAGINAL TRANSRECTAL FLUID DRAIN 08/29/2017 CT GUIDED TRANSVAGINAL TRANSRECTAL FLUID DRAIN 08/29/2017 HEEL SPUR EXCISION 1994 KIDNEY STONE SURGERY 2009 ablation KNEE SURGERY Left arthroscopy OTHER SURGICAL HISTORY 2021 radiation for prostate REVERSE TOTAL SHOULDER ARTHROPLASTY Right 2018 JAB SHOULDER SURGERY Right 05/13/2018 TONSILLECTOMY Family History Family History Problem Relation Name Age of Onset Hypertension Mother Diabetes Mother Stroke Mother Parkinsonism Father Diabetes Brother Heart disease Brother Hypertension Brother Diabetes Son Melanoma Neg Hx Objective General Examination: GENERAL EXAMINATION: Alert and oriented. Pleasant disposition. His spouse is present. FOOT EXAM: Date of Last Foot Exam 03/24/2024 Sensory testing performed: sensations diminished Sensory and motor testing performed: strength normal Pedal pulse taking performed: 1+ Vascular: DORSALIS PEDIS PULSE: bilaterally, 1/4 . POSTERIOR TIBIAL PULSE: bilaterally, 1/4 . TEMPERATURE GRADIENT: warm to warm. EDEMA: Mild, non-pitting swelling of the left ankle extending to the midfoot. Minimal swelling of the right ankle. Mild stasis skin changes and pigmentation bilateral. CAPILLARY FILLING TIME(sec): capillary fill intact bilateral digits less than 3 secs . Neurologic: MUSCLE POWER: No focal deficits. TINELS SIGN: Negative along the tarsal tunnel. VIBRATORY: Absent at the MTP joints. SHARP SENSATION: Tactile and soft touch sensation is absent over the forefoot and digital areas. SEMMES-ARMAND 5.07 MONOFILAMENT: unable to localize multiple points plantarly. Dermatologic: SKIN FINDINGS: Skin turgor is good. HYPERTROPHIC LESION: Left foot: Minimally raised, non-inflamed tyloma lesion sub-2nd metatarsal condyle left foot. Non-fluctuant, without ulcerative changes. NAIL PATHOLOGY: All digits: None are spared: Toenail dystrophy and clinical mycosis. MYCOSIS SCALE: total with debris; multiple digits. INTERDIGITAL MACERATION: clean, dry, non-inflamed. ULCER: no sign of ulceration or open wound . SKIN MYCOSIS: absent. SKIN PATHOLOGY: texture, turgor, hair growth, within normal limits . Ankle / Foot: FOOT: Central digits bilateral are dorsally contracted; fairly rigid hammertoe deformity 2nd digit left foot with MTP joint contracture RANGE OF MOTION: Functional ankle, subtalar and MTP joint range of motion without pain Radiology: Assessment/Plan 1. Chronic, stable onychodystrophy/mycosis all digits 2. Type II diabetes/IDDM 3. Diabetic peripheral neuropathy/loss of protective sensation (Q9). Plan: Notes: Indications for therapeutic footwear and accommodative orthoses: As noted above: Type II diabetes/IDDM with known diabetic peripheral neuropathy and loss of protective sensation. Accommodate forefootand digital deformities. Offloading of forefoot and digital structures; dispersion of peak plantar pressures; reducing potential for skin breakdown, neuropathic ulcerative changes and any related complications. Accommodate swelling as necessary. Allow patient to maintain ADLs and walking activity; minimizing risk profile. Measurements obtained in the weight-bearing position; utilizing [place] device. Patient education relative to appropriate sizing and footwear selection. Procedure: This note was created with the assistance of a speech recognition program. While intending to generate a timely document that accurately reflects the content of the visit, no guarantee can be provided that every grammatical or spelling mistake has been or will be identified or corrected. Thank you for your understanding. Isabella Powell DPM documented in this encounterRay County Memorial [id number] Instructions* Patient Instructions* Isabella Powell DPM - 03/26/2024 2:30 PM EDT As noted documented in this encounterRay County Memorial [id number] History of Present illness Narrative* Isabella Powell DPM - 03/24/2024 8:30 AM EDT Images from the original note were not included. Subjective Patient ID: Zach Chamorro is a 78 y.o. male who presents for DM Foot Care (Zach Chamorro is a 78 y.o. male who presents for DM Foot Care. BS: 113 A1C: 7.1/Lv Dr. Ng 01/28/2024/SS: 12). HPI HPI Onychomycosis/Toenail Fungus: patient presents today requesting nail care. Toenail deformity. Location: Identifies all digits as deformed, discolored and problematic. Duration: Chronic, stable deformity multiple years duration. Severity of symptoms: mild pressure, acknowledging diabetic neuropathy. Onset: gradual, without injury or trauma. Status: Problematic/mildly symptomatic over the past several weeks or so. Context: hard to trim , hard to reach ; self-care iis difficult, ineffective and not practical; exposing patient to considerable risk. Family members unable to provide effective care. Characteristics: ingrowing, discolored, thickened, /lifting, pressure , crusty; without bleeding or drainage. Relieved by: Palliative care provides effective transient symptom relief; reduces risk of associated complications. Risk factors: medical comorbidities. Polypharmacy. Aspirin therapy. type II diabetes/IDDM. Diabeticperipheral neuropathy. Toenail deformity. Shoe and/or digital trauma and related complications. Aggravated by: shoe gear , pressure, walking, catching and snagging on clothing etc. . Medications Current Outpatient Medications: Accu-Chek Softclix Lancets lancets, USE DIRECTED to test BLOOD SUGAR THREE TIMES DAILY, Disp: 100 each, Rfl: 2 allopurinol (Zyloprim) 300 MG tablet, TAKE 1 TABLET DAILY, Disp: 90 tablet, Rfl: 3 aspirin 81 MG EC tablet, 1 (one) time each day at the same time, Disp: , Rfl: Blood Glucose Monitoring Suppl (True Metrix Meter) w/Device kit, 1 each in the morning and 1 each in the evening and 1 each before bedtime., Disp: 1 kit, Rfl: 0 Coenzyme Q10 (Co Q-10) 100 MG chewable tablet, , Disp: , Rfl: Cyanocobalamin (Vitamin B12) 1000 MCG tablet controlled-release, 1 (one) time each day at the same time., Disp: , Rfl: esomeprazole (NexIUM) [address] capsule, Take 40 mg by mouth in the morning. Take before meals., Disp: , Rfl: ferrous sulfate 325 (65 Fe) MG tablet, 1 (one) time each day at the same time., Disp: , Rfl: glucose blood (True Metrix Blood Glucose Test) test strip, 1 each by Other route in the morning and1 each in the evening and 1 each before bedtime., Disp: 100 each, Rfl: 11 insulin glargine (Lantus SoloStar) 100 UNIT/ML pen, Inject 45 Units under the skin at bedtime, Disp: , Rfl: insulin syringe-needle U-100 (GNP Insulin Syringes 31Gx5/16 ) 31G X 5/16 0.3 mL misc, Use as needed, Disp: 100 each, Rfl: 3 insulin syringe-needle U-100 (TechLITE Insulin Syringe) 31G X 5/16 1 mL misc, As needed, Disp: 100each, Rfl: 3 lisinopril 20 MG tablet, Take 1 tablet (20 mg) by mouth 1 (one) time each day at the same time, Disp: 90 tablet, Rfl: 3 metFORMIN (Glucophage) 1000 MG tablet, Take 1 tablet (1,000 mg) by mouth in the morning and 1 tablet (1,000 mg) in the evening. Take with meals., Disp: 180 tablet, Rfl: 3 metoprolol succinate XL (Toprol-XL) 50 MG 24 hr tablet, Take 1 tablet (50 mg) by mouth Daily, Disp:90 tablet, Rfl: 3 Multiple Vitamin (Multi Vitamin) tablet, 1 (one) time each day at the same time., Disp: , Rfl: Multiple Vitamins-Minerals (PreserVision AREDS) tablet, as directed Orally, Disp: , Rfl: rosuvastatin (Crestor) 10 MG tablet, Take 1 tablet (10 mg) by mouth in the morning., Disp: 90 tablet, Rfl: 3 semaglutide (Ozempic, 1 MG/DOSE,) 4 MG/3ML solution pen-injector, Inject 1 mg under the skin 1 (one) time per week, Disp: 3 each, Rfl: 3 tadalafil (Cialis) 20 MG tablet, Take 20 mg by mouth, Disp: , Rfl: tamsulosin (Flomax) 0.4 MG 24 hr capsule, TAKE 1 CAPSULE DAILY, Disp: 90 capsule, Rfl: 3 Allergies Patient has no known allergies. Past Surgical History Past Surgical History: Procedure Laterality Date CATARACT EXTRACTION Bilateral 2018 COLONOSCOPY 05/15/2022 CT GUIDED TRANSVAGINAL TRANSRECTAL FLUID DRAIN 08/29/2017 CT GUIDED TRANSVAGINAL TRANSRECTAL FLUID DRAIN 08/29/2017 HEEL SPUR EXCISION 1994 KIDNEY STONE SURGERY 2009 ablation KNEE SURGERY Left arthroscopy OTHER SURGICAL HISTORY 2021 radiation for prostate REVERSE TOTAL SHOULDER ARTHROPLASTY Right 2018 JAB SHOULDER SURGERY Right 05/13/2018 TONSILLECTOMY Family History Family History Problem Relation Name Age of Onset Hypertension Mother Diabetes Mother Stroke Mother Parkinsonism Father Diabetes Brother Heart disease Brother Hypertension Brother Diabetes Son Melanoma Neg Hx Objective General Examination: GENERAL EXAMINATION: Alert and oriented. Pleasant disposition. Wearing slip-on [place] shoes. His spouse is present. FOOT EXAM: Date of Last Foot Exam 03/24/2024 Sensory testing performed: sensations diminished Sensory and motor testing performed: strength normal Pedal pulse taking performed: 1+ Vascular: DORSALIS PEDIS PULSE: bilaterally, 1/4 . POSTERIOR TIBIAL PULSE: bilaterally, 1/4 . TEMPERATURE GRADIENT: warm to warm. EDEMA: Mild, non-pitting swelling of the left ankle extending to the midfoot. Minimal swelling of the right ankle. Mild stasis skin changes and pigmentation bilateral. CAPILLARY FILLING TIME(sec): capillary fill intact bilateral digits less than 3 secs . Neurologic: MUSCLE POWER: No focal deficits. TINELS SIGN: Negative along the tarsal tunnel. VIBRATORY: Absent at the MTP joints. SHARP SENSATION: Tactile and soft touch sensation is absent over the forefoot and digital areas. SEMMES-ARMAND 5.07 MONOFILAMENT: unable to localize multiple points plantarly. Dermatologic: SKIN FINDINGS:Skin turgor is good. HYPERTROPHIC LESION: Left foot: Minimally raised, non-inflamed tyloma lesion sub-2nd metatarsal condyle left foot. Non-fluctuant, without ulcerative changes. NAIL PATHOLOGY: All digits: None are spared: Toenail dystrophy and clinical mycosis with lunula involvement: Discoloration, elongation, thickening, discoloration, clubbing, brittleness, crumbly texture, subtotal detachment, periungual hyperkeratosis, without drainage. MYCOSIS SCALE: total with debris; multiple digits. INTERDIGITAL MACERATION: clean, dry, non-inflamed. ULCER: no sign of ulceration or open wound . SKIN MYCOSIS:absent. SKIN PATHOLOGY: texture, turgor, hair growth, within normal limits . Ankle / Foot: FOOT: Central digits bilateral are dorsally contracted; fairly rigid hammertoe deformity 2nd digit left foot with MTP joint contracture RANGE OF MOTION: Functional ankle, subtalar and MTP joint range of motion without pain Radiology: Assessment/Plan 1. Chronic, stable onychodystrophy/mycosis all digits 2. Type II diabetes/IDDM 3. Diabetic peripheral neuropathy/loss of protective sensation (Q9). Plan: Notes: Patient remains well satisfied with conservative and palliative care. Diabetic education assessment relative to the high risk condition. Hygiene and skin care measures discussed. Encourage daily use of Eucerin, Aveeno or AmLactin. Encourage compliance with gradient compression sock therapy. Pre-certification therapeutic footwear and accommodative orthoses. Procedure: Toenail Debridement: Aseptic technique: power/manual instrumentation: onychodebridement length and thickness, curretage of offending crypotic margins, sade-ungual debris, providing pressure relief, reducing shoe and digital trauma; reducing potential complications associated with at riskdiabetic neuropathic foot condition. This note was created with the assistance of a speech recognition program. While intending to generate a timely document that accurately reflects the content of the visit, no guarantee can be provided that every grammatical or spelling mistake has been or will be identified or corrected. Thank you for your understanding. Isabella Powell DPM documented in this encounterRay County Memorial [id number] Hospital Discharge instructions Patient Education 12/28/2023 10:30:14 Dietary Guidelines to Help Prevent Kidney Stones Dietary Guidelines to Help Prevent Kidney Stones Kidney stones are deposits of minerals and salts that form inside your kidneys. Your risk of developing kidney stones may be greater depending on your diet, your lifestyle, the medicines you take, and whether you have certain medical conditions. Most people can lower their risks of developing kidney stones by following these dietary guidelines. Your dietitian may give you more specific instructions depending on your overall health and the type of kidney stones you tend to develop. What are tips for following this plan? Reading food labels Choose foods with no salt added or low-salt labels. Limit your salt (sodium) intake to less than 1,500 mg a day. Choose foods with calcium for each meal and snack. Try to eat about 300 mg of calcium at each meal.Foods that contain 200 500 mg of calcium a serving include: ?8 oz (237 mL) of milk, jdjvtja-ulsccelpifvv-hbuog milk, and calcium- fortifiedfruit juice. Calcium-fortified means that calcium has been added to these drinks. ?8 oz (237 mL) of kefir, yogurt, and soy yogurt. ?4 oz (114 g) of tofu. ?1 oz (28 g) of cheese. ?1 cup (150 g) of dried figs. ?1 cup (91 g) of cooked broccoli. ?One 3 oz (85 g) can of sardines or mackerel. Most people need 1,000 1,500 mg of calcium a day. Talk to your dietitian about how much calcium is recommended for you. Shopping Buy plenty of fresh fruits and vegetables. Most people do not need to avoid fruits and vegetables, even if these foods contain nutrients that may contribute to kidney stones. When shopping for convenience foods, choose: ?Whole pieces of fruit. ?Pre-made salads with dressing on the side. ?Low-fat fruit and yogurt smoothies. Avoid buying frozen meals or prepared deli foods. These can be high in sodium. Look for foods with live cultures, such as yogurt and kefir. Choose high-fiber grains, such as whole-wheat breads, oat bran, and wheat cereals. Cooking Do not add salt to food when cooking. Place a salt shaker on the table and allow each person to addtheir own salt to taste. Use vegetable protein, such as beans, textured vegetable protein (TVP), or tofu, instead of meat inpasta, casseroles, and soups. Meal planning Eat less salt, if told by your dietitian. To do this: ?Avoid eating processed or pre-made food. ?Avoid eating fast food. Eat less animal protein, including cheese, meat, poultry, or fish, if told by your dietitian. To dothis: ?Limit the number of times you have meat, poultry, fish, or cheese each week. Eat a diet free of meat at least 2 days a week. ?Eat only one serving each day of meat, poultry, fish, or seafood. ?When you prepare animal proteins, cut pieces into small portion sizes. For most meat and fish, oneserving is about the size of the palm of your hand. Eat at least five servings of fresh fruits and vegetables each day. To do this: ?Keep fruits and vegetables on hand for snacks. ?Eat one piece of fruit or a handful of berries with breakfast. ?Have a salad and fruit at lunch. ?Have two kinds of vegetables at dinner. You may be told to limit foods that are high in a substance called oxalate. These include: ?Spinach (cooked), rhubarb, beets, sweet potatoes, and [place] chard. ?Peanuts. ?Potato chips, kazakh fries, and baked potatoes with skin on. ?Nuts and nut products. ?Chocolate. If you regularly take a diuretic medicine, make sure to eat at least 1 or 2 servings of fruits or vegetables that are high in potassium each day. These include: ?Avocado. ?Banana. ?[place], prune, carrot, or tomato juice. ?Baked potato. ?Cabbage. ?Beans and split peas. Lifestyle Drink enough fluid to keep your urine pale yellow. This is the most important thing you can do. Spread your fluid intake throughout the day. If you drink alcohol: ?Limit how much you have to: ?0 1 drink a day for women who are not . ?0 2 drinks a day for men. ?Know how much alcohol is in your drink. In the [place] one drink equals one 12 oz bottle of beer (355 mL), one 5 oz glass of wine (148 mL), or one 1 oz glass of hard liquor (44 mL). Lose weight if told by your health care provider. Work with your dietitian to find an eating plan and weight loss strategies that work best for you. General information Talk to your health care provider and dietitian about taking daily supplements. Depending on your health and the cause of your kidney stones, you may be told: ?Do not take high-dose supplements of vitamin C (1,000 mg a day or more). ?To take a calcium supplement. ?To take a daily probiotic supplement. ?To take other supplements such as magnesium, fish oil, or vitamin B6. Take wdbt-uim-dviwevg and prescription medicines only as told by your health care provider. These include supplements. What foods should I limit? Limit your intake of the following foods, or eat them as told by your dietitian. Vegetables Spinach. Rhubarb. Beets. Canned vegetables. Pickles. Olives. Baked potatoes with skin. Grains Wheat bran. Baked goods. Salted crackers. Cereals high in sugar. Meats and other proteins Nuts. Nut butters. Large portions of meat, poultry, or fish. Salted, precooked, or cured meats, such as sausages, meat loaves, and hot dogs. Dairy Cheeses. Beverages Regular soft drinks. Regular vegetable juice. Seasonings and condiments Seasoning blends with salt. Salad dressings. Soy sauce. Ketchup. Barbecue sauce. Other foods Canned soups. Canned pasta sauce. Casseroles. Pizza. Lasagna. Frozen meals. Potato chips. [place]ien fries. The items listed above may not be a complete list of foods and beverages you should limit. Contact a dietitian for more information. What foods should I avoid? Talk to your dietitian about specific foods you should avoid based on the type of kidney stones youhave and your overall health. Fruits Grapefruit. The item listed above may not be a complete list of foods and beverages you should avoid. Contact adietitian for more information. Summary Kidney stones are deposits of minerals and salts that form inside your kidneys. You can lower your risk of kidney stones by making changes to your diet. The most important thing you can do is drink enough fluid. Drink enough fluid to keep your urine pale yellow. Talk to your dietitian about how much calcium you should have each day, and eat less salt and animal protein as told by your dietitian. This information is not intended to replace advice given to you by your health care provider. Make sure you discuss any questions you have with your health care provider. Document Revised: 09/07/2022 Document Reviewed: 09/07/2022 [employer] Patient Education 2022 [place]. Follow Up Care 12/29/2022 08:54:47 With:MIKEY ARORA, Jermaine Cano, URL Address: [address] [place] [address] [place] [address]- When: Unknown [facility] Norma 02-08-2024 History of Present illness Narrative* Symone Calero MD - 07/19/2023 9:45 AM EST Images from the original note were not included. Skin Check Location: Patient requests a skin examination from the waist up Dermatologic history: history of Actinic Keratosis, and ankles Last visit: 1 year ago Established patient Rash Location: Ankles/lower legs Duration: About a year or two Severity: Moderate Quality: Denies itch, and burning Modifying Factors: None Associated symptoms: Redness, scale Current treatments: AmLactin 12% lotion recommended by knife edger Established patient All pertinent medical history, medications, and allergies were reviewed. General Exam: alert , oriented to person, place, and time , normal affect, well appearing, Accompanied by spouse A complete skin exam was offered, pt declined. Areas not examined despite medical recommendation: From the waist down Scalp, Examined Head, Face Examined Neck Examined Chest Examined Back Examined Abdomen Examined Right arm Examined Left arm Examined Hands Examined Digits,nails: Examined Ankles: Examined 1. Nummular eczema Right Lower Leg - Anterior Patches of erythema and scale Discussed that nummular eczema is a chronic condition that can be controlled but not cured. Start Triamcinolone 0.1% cream bid prn when flared, hold if smooth/asymptomatic. Encouraged daily moisturizing and gentle cleansers to prevent flares. Notify office if flaring despite treatment. states she has TAC at home, therefore a script is not necessary. 2. Seborrheic keratosis Stuck on verrucous, matthews-brown papules and plaques. Patient was counseled regarding these benign growths. Removal is normally not necessary, but they may be removed if they are symptomatic or for cosmetic reasons. 3. Melanocytic nevus of trunk Scattered benign appearing, regular brown to light brown melanocytic papules and macules with similar morphology Counseled regarding these benign growths. Rarely, a nevus can develop into malignant melanoma, so any changing nevi should be promptly re-evaluated. 4. Lentigines Scattered matthews macules in sun-exposed areas. The patient was informed that lentigines are benign pigmented lesions that occur on sun-exposed andsun-damaged skin. No treatment is necessary. Recommended regular use of broad spectrum sunscreen SPF 30 or higher 5. Angioma of skin Trunk Scattered olvera-red papule(s). The patient was informed that angiomas are benign growths on the the skin. No treatment is necessary. 6. History of actinic keratoses Next Visit: 1 year, skin check [facility] [id number] Progress note Author Rosa Davies [facility] December 13, 2022 10:35am Note Date/Time December 13, 2022 10:09 am [facility] [place] [address] Rad Onc Follow Up Note - OP Signed Patient: Zach Chamorro MR#: [id number] : 1945 Acct:[id number] Age/Sex: 77 / M Type: REG RCR Copies to: MD Jermaine Quintero MD~ Subjective - Service Date/Time Date: 12/13/22 Time: 10:09 - Diagnosis Adenocarcinoma the prostate, Napoleon score 3+4= 7, intermediate risk with initial PSA of 5.69, stage T1cN0 M0 - Chief Complaint I am no urinary or bowel complaints - History of Present Illness 77-year-old male with 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 Multi parametric MRI is consistent with the biopsy findings. There was a singlecore of Napoleon 3+3+6 disease that was found on the left- no extracapsular extension. Patient has a large prostate gland 78 mL and was on tamsulosin 0.4 mg daily due to the BPH at presentation. On June 13, 2022 patient completed definitive SBRT to the prostate 37.5 Olvera in 5 fractions delivered every other day. He did require an increase in Flomax to twice daily. He returns to clinic today and urination has normalized to baseline. AUA is returned to 5 with stable nocturia 2 times a night. IMER continues to be 2 and I-PSS score is 10 with quality of life mostly satisfied. No major complaints of dysuria, hematuria, nausea or vomiting. He has good control of his urination and he continues on Flomax at bedtime. He has no complaint of headaches, neck lumps, cough or hemoptysis, backache, abdominal discomfort, bowel problems, leg swelling, motor or sensory changes. No fever, chills or night sweats. His appetite and weight remain stable. I've closely reviewed the patient's oncologic, medical, surgical, social, and family history. Changes noted above. I also reviewed the patient's medicationsvia reconciliation, as per the nursing record. - Review of Systems ROS: As per HPI. Objective Height 6 ft 2 in Weight 93.894 kg Temp 97.8 F 12/13/22 09:33 Pulse 79 12/13/22 09:33 Resp 18 12/13/22 09:33 BP 150/77 H 12/13/22 09:33 Pulse Ox 98 12/13/22 09:33 O2 Del Method Room Air 12/13/22 09:33 Pain: 0/10 Distress Screen Results: RN Distress Screening Start: 04/27/22 09:18 Freq: Status: Active Protocol: Document 12/13/22 09:34 (Rec: 12/13/22 09:34 [id number]) Distress Screening Distress Score: 0 No worry/distress Distress Screening Total 0 Karnofsky Performance Scale: 90%: Can perform normal activity, minor signs of disease Physical Exam: Examination today shows an alert, oriented pleasant gentleman who is in no acute distress. HEENT examination did not reveal any cranial neuropathy. No palpable cervical or supraclavicular lymphadenopathy. His lungs are clear toauscultation. Cardiac examinations unremarkable. Abdomen is soft nontender andthere is no palpable mass or organomegaly. Local examination lower pelvic area did not reveal any significant radiation related skin changes. No palpable inguinal lymphadenopathy. On perianal anal examination, there is no residual skin reaction. Rectal examination was deferred today. No leg edema. Patient remains neurologically stable Results Total PSA 2.090 ng/mL (0.000-4.000) 03/27/23 13:40 Impression: Adenocarcinoma the prostate, Tanna score 3+4= 7, intermediate risk with initial PSA of 5.69, stage T1cN0 M0 status post SBRT treatment to the prostate which completed in June 2022. His most recent follow-up PSA level is 1.59 ascompared to her prior PSA of 2.09 in August 2022. Assessment & Plan (1) Prostate cancer Plan: Patient is clinically localized prostate carcinoma status post SBRT treatments to the prostate gland 6 months ago returns today for his scheduled radiation collagen follow-up and has no significant urinary or bowel complaints. His PSA continues to decrease from 5.69 (pretreatment) to 2.09 in August 2022 and the most recent reading being 1.59. He is scheduled to see Dr. Mancia in follow-up within next couple of week and I shall plan to see him back again in 6 months for his next scheduled radiation oncology follow-up with a repeat PSA level at that time. Patient was advised to call us or Dr. Mancia office if he has any significant urinary or bowel problems in the interim. Dictated By: Rosa Davies MD DD/ [id number] Signed By: <Electronically signed by Rosa Davies MD> 12/13/22 1035 [facility] Work Phone: 1(270) 333-772604-03-2023 Progress note Author Rosy Pina [facility] September 11, 2022 1:20pm Note Date/Time September 11, 2022 10:2 1am [facility] [place] [address] Rad Onc Follow Up Note - OP Signed Patient: Zach Chamorro MR#: [id number] : 1945 Acct:[id number] Age/Sex: 77 / M Type: REG RCR Copies to: MD Jermaine Quintero MD~ Date of Service Service Date: 09/11/22 Assessment & Plan (1) Prostate cancer Plan: Return to clinic December 2022 for PSA Assessment: 77-year-old male with 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 Multi parametric MRI is consistent with the biopsy findings. There was a singlecore of Napoleon 3+3+6 disease that was found on the left- no extracapsular extension. Patient has a large prostate gland 78 mL and was on tamsulosin 0.4 mg daily due to the BPH at presentation. On June 13, 2022 patient completed definitive SBRT to the prostate 37.5 Olvera in 5 fractions delivered every other day. He did require an increase in Flomax to twice daily. He returns to clinic today and urination has normalized to baseline. AUA is returned to 5 with stable nocturia 2 times a night. IMER continues to be 9 quality of life mostly satisfied. Posttreatment PSAs September 04, 2022 2.09 I am pleased with his clinical progress. He was counseled that the PSA will continue to trend down over time. I will see him back in December for repeat PSA. He also has follow-up with urology at that time. Follow Up Note - Narrative 77-year-old male referred for new diagnosis of prostate cancer: Followed by urology due to a history of BPH with urinary obstruction. PSA history: December, 5.89 December, 4.December 4.December 3.November 2.November 2.81 March 01, 2022 multi parametric MRI showed a 78 mL gland with BPH changes there was a focal area of T2 hypointensity identified in the posterior lateral aspect of the right peripheral zone at the level of the apex measuring 5 mm withrestricted diffusion and low ADC. No extraprostatic extension was seen. There was heterogeneous T2 signal suggestive of prior prostatitis. No evidence of lymphadenopathy PI- RADS 4 MR fusion biopsy confirmed Tanna 3+4 equal 7 in 3 cores including the region of interest as well as the right anterior medial gland and Tanna 3+3 equal 6 in 1 core at the left base. At consult AUA 5 reporting frequency about half the time and stable nocturia 2 times per night. Quality of life is mostly satisfied IMER is 9 consistent with moderate ED. On tamsulosin 0.4 mg daily at presentation. On June 13, 2022 patient completed definitive SBRT to the prostate 37.5 Olvera in 5 fractions delivered every other day. Patient has a large prostate with BPHat baseline so he did require an increase in Flomax to twice daily. Posttreatment PSAs September 04, 2022 2.09 At his last follow-up AUA increased to 14 reporting nocturia 4 times a night as well as increased urgency and frequency. Quality of life is mostly satisfied. He denies any significant change in bowel habits. He returns to clinic today and AUA has improved to 5 with nocturia 2 times a night which is consistent with his baseline. Quality of life is mostly satisfied IMER continues to be 9 consistent with ADD. No bowel complaints. Energy at baseline. Physical Exam General: alert and oriented male in no acute distress HEENT: normocephalic, extra ocular movements intact Lungs: normal work of breathing on room air Abdomen: non acute MSK: extremities within normal limits Neuro: grossly intact Dictated By: Rosy Pina MD DD/ 1020 Signed By: <Electronically signed by Rosy Pina MD> 09/11/22 1320 [facility] Work Phone: 1([phone]) 228-226504-03-2023 Progress note Author Rosy Pina [facility] September 11, 2022 1:20pm Note Date/Time September 11, 2022 10:2 1am [facility] [place] [address] Rad Onc Follow Up Note - OP Signed Patient: Zach Chamorro MR#: [id number] : 1945 Acct:[id number] Age/Sex: 77 / M Type: REG RCR Copies to: MD Jermaine Quintero MD~ Date of Service Service Date: 09/11/22 Assessment & Plan (1) Prostate cancer Plan: Return to clinic December 2022 for PSA Assessment: 77-year-old male with 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 Multi parametric MRI is consistent with the biopsy findings. There was a singlecore of Tanna 3+3+6 disease that was found on the left- no extracapsular extension. Patient has a large prostate gland 78 mL and was on tamsulosin 0.4 mg daily due to the BPH at presentation. On June 13, 2022 patient completed definitive SBRT to the prostate 37.5 Olvera in 5 fractions delivered every other day. He did require an increase in Flomax to twice daily. He returns to clinic today and urination has normalized to baseline. AUA is returned to 5 with stable nocturia 2 times a night. IMER continues to be 9 quality of life mostly satisfied. Posttreatment PSAs September 04, 2022 2.09 I am pleased with his clinical progress. He was counseled that the PSA will continue to trend down over time. I will see him back in December for repeat PSA. He also has follow-up with urology at that time. Follow Up Note - Narrative 77-year-old male referred for new diagnosis of prostate cancer: Followed by urology due to a history of BPH with urinary obstruction. PSA history: December, 5.89 December, 4.December 4.December 3.November 2.November 2.81 March 01, 2022 multi parametric MRI showed a 78 mL gland with BPH changes there was a focal area of T2 hypointensity identified in the posterior lateral aspect of the right peripheral zone at the level of the apex measuring 5 mm withrestricted diffusion and low ADC. No extraprostatic extension was seen. There was heterogeneous T2 signal suggestive of prior prostatitis. No evidence of lymphadenopathy PI- RADS 4 MR fusion biopsy confirmed Tanna 3+4 equal 7 in 3 cores including the region of interest as well as the right anterior medial gland and Tanna 3+3 equal 6 in 1 core at the left base. At consult AUA 5 reporting frequency about half the time and stable nocturia 2 times per night. Quality of life is mostly satisfied IMER is 9 consistent with moderate ED. On tamsulosin 0.4 mg daily at presentation. On June 13, 2022 patient completed definitive SBRT to the prostate 37.5 Olvera in 5 fractions delivered every other day. Patient has a large prostate with BPHat baseline so he did require an increase in Flomax to twice daily. Posttreatment PSAs September 04, 2022 2.09 At his last follow-up AUA increased to 14 reporting nocturia 4 times a night as well as increased urgency and frequency. Quality of life is mostly satisfied. He denies any significant change in bowel habits. He returns to clinic today and AUA has improved to 5 with nocturia 2 times a night which is consistent with his baseline. Quality of life is mostly satisfied IMER continues to be 9 consistent with ADD. No bowel complaints. Energy at baseline. Physical Exam General: alert and oriented male in no acute distress HEENT: normocephalic, extra ocular movements intact Lungs: normal work of breathing on room air Abdomen: non acute MSK: extremities within normal limits Neuro: grossly intact Dictated By: Rosy Pina MD DD/ 1020 Signed By: <Electronically signed by Rosy Pina MD> 09/11/22 1320 [facility] Work Phone: 1(782) 629-243202-01-2023 Progress note Author Rosy Pina [facility] July 12, 2022 9:52am Note Date/Time July 12, 2022 9 :36am [facility] [place] [address] Rad Onc Follow Up Note - OP Signed Patient: Zach Chamorro MR#: [id number] : 1945 Acct:[id number] Age/Sex: 76 / M Type: REG RCR Copies to: MD Jermaine Quintero MD~ Date of Service Service Date: 07/12/22 Assessment & Plan (1) Prostate cancer Plan: Return to clinic 2 months for first posttreatment PSA Assessment: 76-year-old male with 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 Multi parametric MRI is consistent with the biopsy findings. There was a singlecore of Napoleon 3+3+6 disease that was found on the left- no extracapsular extension. Patient has a large prostate gland 78 mL and was on tamsulosin 0.4 mg daily due to the BPH at presentation. On June 13, 2022 patient completed definitive SBRT to the prostate 37.5 Olvera in 5 fractions delivered every other day. He did require an increase in Flomax to twice daily. He returns to clinic today and continues the twice daily Flomax. He has worsened frequency and urgency which should continue to improve over time. We will have him come back in 2 months which is 3 months posttreatment for his first PSA. Ideally we can reduce the Flomax back down to once daily at that point. Patient communicates his understanding we will see him back in 2 months. Follow Up Note - Narrative 76-year-old male referred for new diagnosis of prostate cancer: Followed by urology due to a history of BPH with urinary obstruction. PSA history: December, 5.89 December, 4.December 4.December 3.November 2.November 2.81 March 01, 2022 multi parametric MRI showed a 78 mL gland with BPH changes there was a focal area of T2 hypointensity identified in the posterior lateral aspect of the right peripheral zone at the level of the apex measuring 5 mm withrestricted diffusion and low ADC. No extraprostatic extension was seen. There was heterogeneous T2 signal suggestive of prior prostatitis. No evidence of lymphadenopathy PI- RADS 4 MR fusion biopsy confirmed Napoleon 3+4 equal 7 in 3 cores including the region of interest as well as the right anterior medial gland and Tanna 3+3 equal 6 in 1 core at the left base. At consult AUA 5 reporting frequency about half the time and stable nocturia 2 times per night. Quality of life is mostly satisfied IMER is 9 consistent with moderate ED. On tamsulosin 0.4 mg daily at presentation. On June 13, 2022 patient completed definitive SBRT to the prostate 37.5 Olvera in 5 fractions delivered every other day. Patient has a large prostate with BPHat baseline so he did require an increase in Flomax to twice daily. He returns to clinic today and AUA is 14 reporting nocturia 4 times a night as well as increased urgency and frequency. Quality of life is mostly satisfied. He denies any significant change in bowel habits. Biggest complaint is worsening vision. Physical Exam General: alert and oriented male in no acute distress HEENT: normocephalic, extra ocular movements intact Lungs: normal work of breathing on room air Abdomen: non acute MSK: extremities within normal limits Neuro: grossly intact Dictated By: Rosy Pina MD DD/ 2 Signed By: <Electronically signed by Rosy Pina MD> 07/12/2252 [facility] Work Phone: 1(482) 888-463202-01-2023 Progress note Author Rosy Pina [facility] July 12, 2022 9:52am Note Date/Time July 12, 2022 9 :36am [facility] [place] [address] Rad Onc Follow Up Note - OP Signed Patient: Zach Chamorro MR#: [id number] : 1945 Acct:[id number] Age/Sex: 76 / M Type: REG RCR Copies to: MD Jermaine Quintero MD~ Date of Service Service Date: 07/12/22 Assessment & Plan (1) Prostate cancer Plan: Return to clinic 2 months for first posttreatment PSA Assessment: 76-year-old male with 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 Multi parametric MRI is consistent with the biopsy findings. There was a singlecore of Napoleon 3+3+6 disease that was found on the left- no extracapsular extension. Patient has a large prostate gland 78 mL and was on tamsulosin 0.4 mg daily due to the BPH at presentation. On June 13, 2022 patient completed definitive SBRT to the prostate 37.5 Olvera in 5 fractions delivered every other day. He did require an increase in Flomax to twice daily. He returns to clinic today and continues the twice daily Flomax. He has worsened frequency and urgency which should continue to improve over time. We will have him come back in 2 months which is 3 months posttreatment for his first PSA. Ideally we can reduce the Flomax back down to once daily at that point. Patient communicates his understanding we will see him back in 2 months. Follow Up Note - Narrative 76-year-old male referred for new diagnosis of prostate cancer: Followed by urology due to a history of BPH with urinary obstruction. PSA history: December, 5.89 December, 4.December 4.December 3.November 2.November 2.81 March 01, 2022 multi parametric MRI showed a 78 mL gland with BPH changes there was a focal area of T2 hypointensity identified in the posterior lateral aspect of the right peripheral zone at the level of the apex measuring 5 mm withrestricted diffusion and low ADC. No extraprostatic extension was seen. There was heterogeneous T2 signal suggestive of prior prostatitis. No evidence of lymphadenopathy PI- RADS 4 MR fusion biopsy confirmed Napoleon 3+4 equal 7 in 3 cores including the region of interest as well as the right anterior medial gland and Napoleon 3+3 equal 6 in 1 core at the left base. At consult AUA 5 reporting frequency about half the time and stable nocturia 2 times per night. Quality of life is mostly satisfied IMER is 9 consistent with moderate ED. On tamsulosin 0.4 mg daily at presentation. On June 13, 2022 patient completed definitive SBRT to the prostate 37.5 Olvera in 5 fractions delivered every other day. Patient has a large prostate with BPHat baseline so he did require an increase in Flomax to twice daily. He returns to clinic today and AUA is 14 reporting nocturia 4 times a night as well as increased urgency and frequency. Quality of life is mostly satisfied. He denies any significant change in bowel habits. Biggest complaint is worsening vision. Physical Exam General: alert and oriented male in no acute distress HEENT: normocephalic, extra ocular movements intact Lungs: normal work of breathing on room air Abdomen: non acute MSK: extremities within normal limits Neuro: grossly intact Dictated By: Rosy Pina MD DD/ Signed By: <Electronically signed by Rosy Pina MD> 07/12/22 0952 [facility] Work Phone: 1(873) 787-612812-05-2022 [facility] [facility]11-17-2022 Consult note Author Rosy Pina [facility] April 27, 2022 1:21pm Note Date/Time April 27, 2022 8:37am [facility] [place] [address] Rad Onc Consult Note - OP Signed Patient: Zach Chamorro MR#: [id number] : 1945 Acct:[id number] Age/Sex: 76 / M Type: REG RCR Copies to: MD Jermaine Quintero MD~ Assessment & Plan (1) Prostate cancer Plan: Schedule OR for hydrogel and fiducial placement with colonoscopy prior CT simulation-plan for delivery of SBRT to the prostate 37.5 Olvera in 5 fractions[address] every other day. 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 I reviewed his MRI and pathology. Multi parametric MRI is consistent with the biopsy findings. There is a single core of Napoleon 3+3+6 disease that was foundon the left. There is no extracapsular extension. The patient's gland is largeat 78 mL and he remains on tamsulosin 0.4 mg daily due to the BPH. But a long conversation today regarding the natural history of prostate cancer. Based on these findings patient has 3 options for treatment including active surveillance, surgery, radiation. With a Tanna 3+4 disease I recommend we send a Decipher if he is interested in active surveillance. He also has been told he is not an ideal surgical candidate due to his age so is interested in noninvasive management with radiation. I recommend definitive SBRT to a dose of37.5 Olvera in 5 fractions delivered every other day. I provided a general overview of radiation treatment planning and delivery. We discussed the need for fiducial and hydrogel placement in the OR. As patient has not had a colonoscopy for 10 years he understands we will arrange for him tomeet with surgery to consider screening colonoscopy prior to this procedure. Luis discussed the need for immobilization and CT simulation. Short and long-term side effects were reviewed in detail and his questions were answered. He was consented to receive care. Patient was counseled at length regarding the risk of increased short and long- term toxicity toxicity seen with uncontrolled diabetes. He was counseled to work closely with her primary care physician to ensure blood sugars were normalized during his treatment course. He communicated her understanding. HPI Date of Service: 04/27/22 HPI: 76-year-old male referred for new diagnosis of prostate cancer: He has been followed by urology due to a history of BPH with urinary obstruction. PSA history: December, 5.89 December, 4.December 4.December 3.November 2.November 2.81 March 01, 2022 multi parametric MRI showed a 78 mL gland with BPH changes there was a focal area of T2 hypointensity identified in the posterior lateral aspect of the right peripheral zone at the level of the apex measuring 5 mm withrestricted diffusion and low ADC. No extraprostatic extension was seen. There was heterogeneous T2 signal suggestive of prior prostatitis. No evidence of lymphadenopathy PI- RADS 4 MR fusion biopsy confirmed Tanna 3+4 equal 7 in 3 cores including the region of interest as well as the right anterior medial gland and Napoleon 3+3 equal 6 in 1 core at the left base. He continues on tamsulosin 0.4 mg daily. Today is doing well. AUA is 5 reporting frequency about half the time and stable nocturia 2 times per night. Quality of life is mostly satisfied IMER is 9 consistent with moderate ED. Is no pelvic complaints. He estimates its been 10 years since his last colonoscopy. [facility] - Medical History Medical History: Medical History (This Medical Record has been edited. Action required.) BPH (benign prostatic hyperplasia) Elevated PSA H/O gastric ulcer Hypercholesteremia Hypertension IDDM (insulin dependent diabetes mellitus) Kidney stones Nocturia Prostate cancer TIA (transient ischemic attack) - Surgical History Surgical History: Surgical History (This Medical Record has been edited. Action required.) History of prostate biopsy 03/28/22 Home Medications & Allergies Allergies No Known Allergies Allergy (Verified 04/26/22 08:13) Home Medications allopurinol 300 mg tablet 300 mg PO DAILY 04/26/22 [History Confirmed 04/26/22] amlodipine 5 mg tablet 5 mg PO DAILY 04/26/22 [History Confirmed 04/26/22] aspirin 81 mg capsule 81 mg PO DAILY 04/26/22 [History Confirmed 04/26/22] dulaglutide 1.5 mg/0.5 mL subcutaneous pen injector (Trulicity) 1.5 mg subcut ASDIRECTED 04/26/22 [History Confirmed 04/26/22] insulin glargine 100 unit/mL subcutaneous solution (Lantus U-100 Insulin) 50 unit subcut HS 04/26/22 [History Confirmed 04/26/22] lisinopril 40 mg tablet 40 mg PO DAILY 04/26/22 [History Confirmed 04/26/22] metformin 1,000 mg tablet 1,000 mg PO BID 04/26/22 [History Confirmed 04/26/22] metoprolol succinate 100 mg tablet,extended release 24 hr 100 mg PO DAILY 04/26/22 [History Confirmed 04/26/22] rosuvastatin 10 mg tablet 10 mg PO DAILY 04/26/22 [History Confirmed 04/26/22] tamsulosin 0.4 mg capsule 0.4 mg PO DAILY 04/26/22 [History Confirmed 04/26/22] Subjective ROS: I reviewed the 12-point Review of Systems with the patient as per our standard questionnaire. Objective Pain: 0/10 Karnofsky Performance Scale: 90%: Can perform normal activity, minor signs of disease Physical Exam: Physical Exam General: alert and oriented male in no acute distress HEENT: normocephalic, extra ocular movements intact Lungs: normal work of breathing on room air Abdomen: non acute MSK: extremities within normal limits Neuro: grossly intact Dictated By: Rosy Pina MD DD/ 2 Signed By: <Electronically signed by Rosy Pina MD> 04/27/22 132[address] [facility] Work Phone: 1(309) 995-585111-17-2022 Consult note Author Rosy Pina [facility] April 27, 2022 1:21pm Note Date/Time April 27, 2022 8:37am [place] [address] Rad Onc Consult Note - OP Signed Patient: Zach Chamorro MR#: [id number] : 1945 Acct:[id number] Age/Sex: 76 / M Type: REG RCR Copies to: MD Jermaine Quintero MD~ Assessment & Plan (1) Prostate cancer Plan: Schedule OR for hydrogel and fiducial placement with colonoscopy prior CT simulation-plan for delivery of SBRT to the prostate 37.5 Olvera in 5 fractions[address]ivered every other day. 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 I reviewed his MRI and pathology. Multi parametric MRI is consistent with the biopsy findings. There is a single core of Napoleon 3+3+6 disease that was foundon the left. There is no extracapsular extension. The patient's gland is largeat 78 mL and he remains on tamsulosin 0.4 mg daily due to the BPH. But a long conversation today regarding the natural history of prostate cancer. Based on these findings patient has 3 options for treatment including active surveillance, surgery, radiation. With a Napoleon 3+4 disease I recommend we send a Decipher if he is interested in active surveillance. He also has been told he is not an ideal surgical candidate due to his age so is interested in noninvasive management with radiation. I recommend definitive SBRT to a dose of37.5 Olvera in 5 fractions delivered every other day. I provided a general overview of radiation treatment planning and delivery. We discussed the need for fiducial and hydrogel placement in the OR. As patient has not had a colonoscopy for 10 years he understands we will arrange for him tomeet with surgery to consider screening colonoscopy prior to this procedure. Luis discussed the need for immobilization and CT simulation. Short and long-term side effects were reviewed in detail and his questions were answered. He was consented to receive care. Patient was counseled at length regarding the risk of increased short and long- term toxicity toxicity seen with uncontrolled diabetes. He was counseled to work closely with her primary care physician to ensure blood sugars were normalized during his treatment course. He communicated her understanding. HPI Date of Service: 04/27/22 HPI: 76-year-old male referred for new diagnosis of prostate cancer: He has been followed by urology due to a history of BPH with urinary obstruction. PSA history: December, 5.89 December, 4.December 4.December 3.November 2.November 2.81 March 01, 2022 multi parametric MRI showed a 78 mL gland with BPH changes there was a focal area of T2 hypointensity identified in the posterior lateral aspect of the right peripheral zone at the level of the apex measuring 5 mm withrestricted diffusion and low ADC. No extraprostatic extension was seen. There was heterogeneous T2 signal suggestive of prior prostatitis. No evidence of lymphadenopathy PI- RADS 4 MR fusion biopsy confirmed Napoleon 3+4 equal 7 in 3 cores including the region of interest as well as the right anterior medial gland and Tanna 3+3 equal 6 in 1 core at the left base. He continues on tamsulosin 0.4 mg daily. Today is doing well. AUA is 5 reporting frequency about half the time and stable nocturia 2 times per night. Quality of life is mostly satisfied IMER is 9 consistent with moderate ED. Is no pelvic complaints. He estimates its been 10 years since his last colonoscopy. [facility] - Medical History Medical History: Medical History (This Medical Record has been edited. Action required.) BPH (benign prostatic hyperplasia) Elevated PSA H/O gastric ulcer Hypercholesteremia Hypertension IDDM (insulin dependent diabetes mellitus) Kidney stones Nocturia Prostate cancer TIA (transient ischemic attack) - Surgical History Surgical History: Surgical History (This Medical Record has been edited. Action required.) History of prostate biopsy 03/28/22 Home Medications & Allergies Allergies No Known Allergies Allergy (Verified 04/26/22 08:13) Home Medications allopurinol 300 mg tablet 300 mg PO DAILY 04/26/22 [History Confirmed 04/26/22] amlodipine 5 mg tablet 5 mg PO DAILY 04/26/22 [History Confirmed 04/26/22] aspirin 81 mg capsule 81 mg PO DAILY 04/26/22 [History Confirmed 04/26/22] dulaglutide 1.5 mg/0.5 mL subcutaneous pen injector (Trulicity) 1.5 mg subcut ASDIRECTED 04/26/22 [History Confirmed 04/26/22] insulin glargine 100 unit/mL subcutaneous solution (Lantus U-100 Insulin) 50 unit subcut HS 04/26/22 [History Confirmed 04/26/22] lisinopril 40 mg tablet 40 mg PO DAILY 04/26/22 [History Confirmed 04/26/22] metformin 1,000 mg tablet 1,000 mg PO BID 04/26/22 [History Confirmed 04/26/22] metoprolol succinate 100 mg tablet,extended release 24 hr 100 mg PO DAILY 04/26/22 [History Confirmed 04/26/22] rosuvastatin 10 mg tablet 10 mg PO DAILY 04/26/22 [History Confirmed 04/26/22] tamsulosin 0.4 mg capsule 0.4 mg PO DAILY 04/26/22 [History Confirmed 04/26/22] Subjective ROS: I reviewed the 12-point Review of Systems with the patient as per our standard questionnaire. Objective Pain: 0/10 Karnofsky Performance Scale: 90%: Can perform normal activity, minor signs of disease Physical Exam: Physical Exam General: alert and oriented male in no acute distress HEENT: normocephalic, extra ocular movements intact Lungs: normal work of breathing on room air Abdomen: non acute MSK: extremities within normal limits Neuro: grossly intact Dictated By: Rosy Pina MD DD/ 2 Signed By: <Electronically signed by Rosy Pina MD> 04/27/22 1321 [facility] Work Phone: 1(217) 195-717911-04-2022 Hospital Discharge instructions Patient Education 04/14/2022 11:00:48 Prostate Cancer Prostate Cancer The prostate is a walnut-sized gland that is involved in the production of semen. It is located below a man's bladder, in front of the rectum. Prostate cancer is the abnormal growth of cells in the prostate gland. What are the causes? The exact cause of this condition is not known. What increases the risk? This condition is more likely to develop in men who: Are older than age 65. Are -Nepalese. Are obese. Have a family history of prostate cancer. Have a family history of breast cancer. What are the signs or symptoms? Symptoms of this condition include: A need to urinate often. Weak or interrupted flow of urine. Trouble starting or stopping urination. Inability to urinate. Pain or burning during urination. Painful ejaculation. Blood in urine or semen. Persistent pain or discomfort in the lower back, lower abdomen, hips, or upper thighs. Trouble getting an erection. Trouble emptying the bladder all the way. How is this diagnosed? This condition can be diagnosed with: A digital rectal exam. For this exam, a health care provider inserts a gloved finger into the rectum to feel the prostate gland. A blood test called a prostate-specific antigen (PSA) test. An imaging test called transrectal ultrasonography. A procedure in which a sample of tissue is taken from the prostate and examined under a microscope (prostate biopsy). Once the condition is diagnosed, tests will be done to determine how far the cancer has spread. This is called staging the cancer. Staging may involve imaging tests, such as: A bone scan. A CT scan. A PET scan. An MRI. The stages of prostate cancer are as follows: Stage I. At this stage, the cancer is found in the prostate only. The cancer is not visible on imaging tests and it is usually found by accident, such as during a prostate surgery. Stage II. At this stage, the cancer is more advanced than it is in stage I, but the cancer has not spread outside the prostate. Stage III. At this stage, the cancer has spread beyond the outer layer of the prostate to nearby tissues. The cancer may be found in the seminal vesicles, which are near the bladder and the prostate. Stage IV. At this stage, the cancer has spread other parts of the body, such as the lymph nodes, bones, bladder, rectum, liver, or lungs. How is this treated? Treatment for this condition depends on several factors, including the stage of the cancer, your age, personal preferences, and your overall health. Talk with your health care provider about treatment options that are recommended for you. Common treatments include: Observation for early stage prostate cancer (active surveillance). This involves having exams, blood tests, and in some cases, more biopsies. For some men, this is the only treatment needed. Surgery. Types of surgeries include: ?Open surgery. In this surgery, a larger incision is made to remove the prostate. ?A laparoscopic prostatectomy. This is a surgery to remove the prostate and lymph nodes through several, small incisions. It is often referred to as a minimally invasive surgery. ?A robotic prostatectomy. This is a surgery to remove the prostate and lymph nodes with the help ofa robotic arm that is controlled by a computer. ?Orchiectomy. This is a surgery to remove the testicles. ?Cryosurgery. This is a surgery to freeze and destroy cancer cells. Radiation treatment. Types of radiation treatment include: ?External beam radiation. This type aims beams of radiation from outside the body at the prostate to destroy cancerous cells. ?Brachytherapy. This type uses radioactive needles, seeds, wires, or tubes that are implanted into the prostate gland. Like external beam radiation, brachytherapy destroys cancerous cells. An advantage is that this type of radiation limits the damage to surrounding tissue and has fewer side effects. High-intensity, focused ultrasonography. This treatment destroys cancer cells by delivering high-energy ultrasound waves to the cancerous cells. Chemotherapy medicines. This treatment kills cancer cells or stops them from multiplying. Hormone treatment. This treatment involves taking medicines that act on one of the male hormones (testosterone): ?By stopping your body from producing testosterone. ?By blocking testosterone from reaching cancer cells. Follow these instructions at home: Take [id number] and prescription medicines only as told by your health care provider. Maintain a healthy diet. Get plenty of sleep. Consider joining a support group for men who have prostate cancer. Meeting with a support group mayhelp you learn to cope with the stress of having cancer. Keep all follow-up visits as told by your health care provider. This is important. If you have to go to the hospital, notify your cancer specialist (oncologist). Treatment for prostate cancer may affect sexual function. Continue to have intimate moments with your partner. This may include touching, holding, hugging, and caressing. Contact a health care provider if: You have trouble urinating. You have blood in your urine. You have pain in your hips, back, or chest. Get help right away if: You have weakness or numbness in your legs. You cannot control urination or your bowel movements (incontinence). You have trouble breathing. You have sudden chest pain. You have chills or a fever. Summary The prostate is a walnut-sized gland that is involved in the production of semen. It is located below a man's bladder, in front of the rectum. Prostate cancer is the abnormal growth of cells in the prostate gland. Treatment for this condition depends on several factors, including the stage of the cancer, your age, personal preferences, and your overall health. Talk with your health care provider about treatment options that are recommended for you. Consider joining a support group for men who have prostate cancer. Meeting with a support group mayhelp you learn to cope with the stress of having cancer. This information is not intended to replace advice given to you by your health care provider. Make sure you discuss any questions you have with your health care provider. Document Released: 05/28/2006 Document Revised: 05/10/2018 Document Reviewed: 02/05/2017 [employer] Patient Education 2020 [place]. Follow Up Care 04/12/2022 09:44:29 With:MIKEY ARORA, Jermaine Cano, URL Address: [address] [place], [place] [id number]- When: Unknown [facility] 10-18-2022 Hospital Discharge instructions Patient Education 03/28/2022 12:14:43 [facility] - Transrectal Ultrasound of the Prostate with US guided biopsy Discharge Instructions (CUSTOM) Transrectal Ultrasound of the Prostate with US guided biopsy Even though there are no visible incisions, multiple prostate biopsies have been taken through the rectum and you need to follow some instructions to minimize the risks of bleeding. You may see some blood in your urine and stool for up to 1 week (and blood in the semen for severalmonths) Diet -You may resume your normal diet, but you may want to avoid alcohol, carbonated drinks, caffeine, and spicy foods, which may increase the irritation from the surgery. -Drink plenty of water to keep the urine clear. Activity -You should limit any physical activity for about 48 hours -No heavy lifting or straining (10 pound limit) -No driving a car and limit long car rides for 2 days -No strenuous exercise -No sexual intercourse until this is discussed with your doctor Bowels -Try to keep your bowel movements soft to minimize straining to have a bowel movement. -You may use a stool softener or over the counter laxative if needed -Difficult bowel movement may lead to straining and bleeding from the prostate Medications -You may resume your home medications unless instructed otherwise -Hold aspirin, ibuprofen, Coumadin (warfarin) and other blood thinners for about two days or until there is no active bleeding unless otherwise instructed -Finish the antibiotic which you have already started Things to watch for which would require an Emergency Room visit or call 911: (this is not a complete list) -Persistent or heavy bleeding or blood clots from the rectum or in the urine -Inability to urinate -Fever over 101.5 degrees Fahrenheit, with or without chills -Severe drug reactions with itching, hives or rash -Tenderness or swelling of the calves, chest pain, or shortness of breath Please call the office to arrange for your post-operative appointment in 1-2 weeks [phone] or [phone] Follow Up Care 03/16/2022 13:18:55 With:Jermaine MANCIA Address: [facility] [address] [place] [address]- Business (1) When:04/11/2022 12:14:30 [facility]07-15-2022 Hospital Discharge instructions Patient Education 12/23/2021 08:26:00 Benign Prostatic Hyperplasia Benign Prostatic Hyperplasia Benign prostatic hyperplasia (BPH) is an enlarged prostate gland that is caused by the normal agingprocess and not by cancer. The prostate is a walnut-sized gland that is involved in the production of semen. It is located in front of the rectum and below the bladder. The bladder stores urine and the urethra is the tube that carries the urine out of the body. The prostate may get bigger as a man gets older. An enlarged prostate can press on the urethra. This can make it harder to pass urine. The build-up of urine in the bladder can cause infection. Back pressure and infection may progress to bladder damage and kidney (renal) failure. What are the causes? This condition is part of a normal aging process. However, not all men develop problems from this condition. If the prostate enlarges away from the urethra, urine flow will not be blocked. If it enlarges toward the urethra and compresses it, there will be problems passing urine. What increases the risk? This condition is more likely to develop in men over the age of 50 years. What are the signs or symptoms? Symptoms of this condition include: Getting up often during the night to urinate. Needing to urinate frequently during the day. Difficulty starting urine flow. Decrease in size and strength of your urine stream. Leaking (dribbling) after urinating. Inability to pass urine. This needs immediate treatment. Inability to completely empty your bladder. Pain when you pass urine. This is more common if there is also an infection. Urinary tract infection (UTI). How is this diagnosed? This condition is diagnosed based on your medical history, a physical exam, and your symptoms. Tests will also be done, such as: A post-void bladder scan. This measures any amount of urine that may remain in your bladder after you finish urinating. A digital rectal exam. In a rectal exam, your health care provider checks your prostate by putting a lubricated, gloved finger into your rectum to feel the back of your prostate gland. This exam detects the size of your gland and any abnormal lumps or growths. An exam of your urine (urinalysis). A prostate specific antigen (PSA) screening. This is a blood test used to screen for prostate cancer. An ultrasound. This test uses sound waves to electronically produce a picture of your prostate gland. Your health care provider may refer you to a specialist in kidney and prostate diseases (urologist). How is this treated? Once symptoms begin, your health care provider will monitor your condition (active surveillance or watchful waiting). Treatment for this condition will depend on the severity of your condition. Treatment may include: Observation and yearly exams. This may be the only treatment needed if your condition and symptoms are mild. Medicines to relieve your symptoms, including: ?Medicines to shrink the prostate. ?Medicines to relax the muscle of the prostate. Surgery in severe cases. Surgery may include: ?Prostatectomy. In this procedure, the prostate tissue is removed completely through an open incision or with a laparoscope or robotics. ?Transurethral resection of the prostate (TURP). In this procedure, a tool is inserted through the opening at the tip of the penis (urethra). It is used to cut away tissue of the inner core of the prostate. The pieces are removed through the same opening of the penis. This removes the blockage. ?Transurethral incision (TUIP). In this procedure, small cuts are made in the prostate. This lessens the prostate's pressure on the urethra. ?Transurethral microwave thermotherapy (TUMT). This procedure uses microwaves to create heat. The heat destroys and removes a small amount of prostate tissue. ?Transurethral needle ablation (TUNA). This procedure uses radio frequencies to destroy and remove a small amount of prostate tissue. ?Interstitial laser coagulation (ILC). This procedure uses a laser to destroy and remove a small amount of prostate tissue. ?Transurethral electrovaporization (TUVP). This procedure uses electrodes to destroy and remove a small amount of prostate tissue. ?Prostatic urethral lift. This procedure inserts an implant to push the lobes of the prostate away from the urethra. Follow these instructions at home: Take [id number] and prescription medicines only as told by your health care provider. Monitor your symptoms for any changes. Contact your health care provider with any changes. Avoid drinking large amounts of liquid before going to bed or out in public. Avoid or reduce how much caffeine or alcohol you drink. Give yourself time when you urinate. Keep all follow-up visits as told by your health care provider. This is important. Contact a health care provider if: You have unexplained back pain. Your symptoms do not get better with treatment. You develop side effects from the medicine you are taking. Your urine becomes very dark or has a bad smell. Your lower abdomen becomes distended and you have trouble passing your urine. Get help right away if: You have a fever or chills. You suddenly cannot urinate. You feel lightheaded, or very dizzy, or you faint. There are large amounts of blood or clots in the urine. Your urinary problems become hard to manage. You develop moderate to severe low back or flank pain. The flank is the side of your body between the ribs and the hip. These symptoms may represent a serious problem that is an emergency. Do not wait to see if the symptoms will go away. Get medical help right away. Call your local emergency services (911 in the [place] Do not drive yourself to the hospital. Summary Benign prostatic hyperplasia (BPH) is an enlarged prostate that is caused by the normal aging process and not by cancer. An enlarged prostate can press on the urethra. This can make it hard to pass urine. This condition is part of a normal aging process and is more likely to develop in men over the age of 50 years. Get help right away if you suddenly cannot urinate. This information is not intended to replace advice given to you by your health care provider. Make sure you discuss any questions you have with your health care provider. Document Released: 05/28/2006 Document Revised: 04/22/2019 Document Reviewed: 07/02/2017 [employer] Patient Education 2020 [place]. Follow Up Care 12/17/2020 09:28:14 With:MIKEY ARORA, Jermaine Cano, URL Address: [address] [place] [id number]- When:Within 1 Year(s) Comments:w/ PSA & KUB [facility] 05-17-2022 NoteHNO ID: [id number] Author: Haroldo Sebastian MD Service: ? Author Type: Physician Type: Progress Notes Filed: 10/25/2021 1:55 PM Note Text: 72 y/o male Referred by Dr. Dean 1. 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 SEE UBM Other findings of pig dispersion, and altered size in the peripheral iris also explained by haptic 3x 4 mm upto angle 5-7 with iris pig dispersion at 730. Pig at paracentesis site (post cataract 08/2018) document with photos, OCT and UBM (CBD -) NOT suggestive of malignant transformation 2. Diabetic Retinopathy, OU - Followed by Dr. Ben Hedrick - pt reports he has had laser treatment ~ 04/2018 RTC at home for tilted IOL see letter I have confirmed and edited as necessary the relevant ophthalmic history, ROS, and the neuro exam findings as obtained by others. I have seen and examined this patient. I have discussed the case and the management of this patient's care with the Resident/Fellow, if applicable. I also have reviewed and agree with the assessment and plan as stated above and agree with all of its relevant components. Haroldo Sebastian MD October 25, 2021 1:55 [facility]05-17-2022 History of Present illness Narrative* Haroldo Sebastian MD - 10/25/2021 10:13 AM EDT 72 y/o male Referred by Dr. Dean 1. 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 SEE UBM Other findings of pig dispersion, and altered size in the peripheral iris also explained by haptic 3x 4 mm upto angle 5-7 with iris pig dispersion at 730. Pig at paracentesis site (post cataract 08/2018) document with photos, OCT and UBM (CBD -) NOT suggestive of malignant transformation 2. Diabetic Retinopathy, OU - Followed by Dr. Ben Hedrick - pt reports he has had laser treatment ~ 04/2018 RTC at home for tilted IOL see letter I have confirmed and edited as necessary the relevant ophthalmic history, ROS, and the neuro exam findings as obtained by others. I have seen and examined this patient. I have discussed the case and the management of this patient's care with the Resident/Fellow, if applicable. I also have reviewed and agree with the assessment and plan as stated above and agree withall of its relevant components. Haroldo Sebastian MD October 25, 2021 1:55 PM [facility] Future Appointments Appointment Date:12/29/2022 08:00:00 AM Scheduled Provider:[facility]ANCIA [facility] Type:[facility]O Office Visit Diagnostic Tests Pending * PSA Free & Total 10/09/22 [facility] evaluation + Plan note Future Appointments Appointment Date:04/14/2022 10:30:00 AM Scheduled Provider:Jermaine MANCIA MD Location:[facility] Appointment Type:URO Procedure 15 min Appointment Date:12/29/2022 08:00:00 AM Scheduled Provider:Jermaine MANCIA [facility] Type:URO Office Visit Diagnostic Tests Pending * Prostate Histology ([facility]) [facility] Future Appointments Appointment Date:12/29/2022 08:00:00 AM Scheduled Provider:Jermaine MANCIA MD Location:[facility] Appointment Type:URO Office Visit [facility] evaluation + Plan note Future Appointments Appointment Date:06/30/2024 09:45:00 AM Scheduled Provider:Jermaine MANCIA MD Location:[facility] Appointment Type:URO Office Visit Diagnostic Tests Pending * PSA Total 05/11/24 [facility] evaluation note* Diagnosis Iris nevus, left- Primary Dislocation of intraocular lens, sequela documented [facility] this [facility] noteNo assessment information availableSelect [facility]* Diagnosis Onset Date Resolution Status Prostate cancer acute [facility] Work Phone: evaluation note* Diagnosis Nummular eczema- Primary Contact dermatitis and other eczema, due to unspecified cause Seborrheic keratosis Melanocytic nevus of trunk Benign neoplasm of skin of trunk, except scrotum Lentigines Angioma of skin History of actinic keratoses Personal history of diseases of skin and subcutaneous tissue [facility]* Diagnosis Onset Date Resolution Status Prostate cancer acute Prostate cancer acute [facility] Work Phone: Evaluation note* Diagnosis Type 2 diabetes mellitus with hyperglycemia, with long-term current use of insulin ([facility])- Primary Benign essential hypertension ([facility]) Essential hypertension, benign BPH without urinary obstruction Peptic ulcer disease Peptic ulcer, unspecified site, unspecified as acute or chronic, without mention of hemorrhage, perforation, or obstruction Seasonal allergic rhinitis due to pollen Chest pain at rest- Primary Unspecified chest pain Type 2 diabetes mellitus with hyperglycemia, with long-term current use of insulin ([facility]) Type 2 diabetes mellitus with hyperglycemia, with long-term current use of insulin ([facility])- Primary Benign essential hypertension ([facility]) Essential hypertension, benign Peptic ulcer disease Peptic ulcer, unspecified site, unspecified as acute or chronic, without mention of hemorrhage, perforation, or obstruction BPH without urinary obstruction Seasonal allergic rhinitis due to pollen Dermatophytosis of nail- Primary Dystrophic nail Other specified disease of nail Diabetic polyneuropathy associated with type 2 diabetes mellitus ([facility]) Encounter for long-term (current) use of insulin ([facility]) Encounter for long-term (current) use of insulin documented in this encounter [facility]* Diagnosis Type 2 diabetes mellitus with hyperglycemia, with long-term current use of insulin ([facility])- Primary Benign essential hypertension ([facility]) Essential hypertension, benign BPH without urinary obstruction Peptic ulcer disease Peptic ulcer, unspecified site, unspecified as acute or chronic, without mention of hemorrhage, perforation, or obstruction Seasonal allergic rhinitis due to pollen Chest pain at rest- Primary Unspecified chest pain Type 2 diabetes mellitus with hyperglycemia, with long-term current use of insulin ([facility]) Type 2 diabetes mellitus with hyperglycemia, with long-term current use of insulin ([facility])- Primary Benign essential hypertension ([facility]) Essential hypertension, benign Peptic ulcer disease Peptic ulcer, unspecified site, unspecified as acute or chronic, without mention of hemorrhage, perforation, or obstruction BPH without urinary obstruction Seasonal allergic rhinitis due to pollen Diabetic polyneuropathy associated with type 2 diabetes mellitus ([facility])- Primary Encounter for long-term (current) use of insulin ([facility]) Encounter for long-term (current) use of insulin documented in this encounter [facility]* Diagnosis Type 2 diabetes mellitus with hyperglycemia, with long-term current use of insulin ([facility])- Primary Benign essential hypertension ([facility]) Essential hypertension, benign BPH without urinary obstruction Peptic ulcer disease Peptic ulcer, unspecified site, unspecified as acute or chronic, without mention of hemorrhage, perforation, or obstruction Seasonal allergic rhinitis due to pollen Chest pain at rest- Primary Unspecified chest pain Type 2 diabetes mellitus with hyperglycemia, with long-term current use of insulin ([facility]) Type 2 diabetes mellitus with hyperglycemia, with long-term current use of insulin ([facility])- Primary Benign essential hypertension ([facility]) Essential hypertension, benign Peptic ulcer disease Peptic ulcer, unspecified site, unspecified as acute or chronic, without mention of hemorrhage, perforation, or obstruction BPH without urinary obstruction Seasonal allergic rhinitis due to pollen Diabetic polyneuropathy associated with type 2 diabetes mellitus ([facility])- Primary Encounter for long-term (current) use of insulin ([facility]) Encounter for long-term (current) use of insulin documented in this encounter [facility]* Diagnosis Type 2 diabetes mellitus with hyperglycemia, with long-term current use of insulin ([facility])- Primary Benign essential hypertension ([facility]) Essential hypertension, benign BPH without urinary obstruction Peptic ulcer disease Peptic ulcer, unspecified site, unspecified as acute or chronic, without mention of hemorrhage, perforation, or obstruction Seasonal allergic rhinitis due to pollen Chest pain at rest- Primary Unspecified chest pain Type 2 diabetes mellitus with hyperglycemia, with long-term current use of insulin ([facility]) Type 2 diabetes mellitus with hyperglycemia, with long-term current use of insulin ([facility])- Primary Benign essential hypertension ([facility]) Essential hypertension, benign Peptic ulcer disease Peptic ulcer, unspecified site, unspecified as acute or chronic, without mention of hemorrhage, perforation, or obstruction BPH without urinary obstruction Seasonal allergic rhinitis due to pollen Type 2 diabetes mellitus with hyperglycemia, with long-term current use of insulin ([facility])- Primary documented in this encounter [facility]* Diagnosis Type 2 diabetes mellitus with hyperglycemia, with long-term current use of insulin ([facility])- Primary Benign essential hypertension ([facility]) Essential hypertension, benign BPH without urinary obstruction Peptic ulcer disease Peptic ulcer, unspecified site, unspecified as acute or chronic, without mention of hemorrhage, perforation, or obstruction Seasonal allergic rhinitis due to pollen Chest pain at rest- Primary Unspecified chest pain Type 2 diabetes mellitus with hyperglycemia, with long-term current use of insulin ([facility]) Type 2 diabetes mellitus with hyperglycemia, with long-term current use of insulin ([facility])- Primary Benign essential hypertension ([facility]) Essential hypertension, benign Peptic ulcer disease Peptic ulcer, unspecified site, unspecified as acute or chronic, without mention of hemorrhage, perforation, or obstruction BPH without urinary obstruction Seasonal allergic rhinitis due to pollen 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 ([facility])- Primary Diabetic polyneuropathy associated with type 2 diabetes mellitus ([facility]) Swelling of left foot Encounter for long-term (current) use of insulin ([facility]) Encounter for long-term (current) use of insulin documented in this encounter [facility]* Diagnosis Type 2 diabetes mellitus with hyperglycemia, with long-term current use of insulin ([facility])- Primary Benign essential hypertension ([facility]) Essential hypertension, benign BPH without urinary obstruction Peptic ulcer disease Peptic ulcer, unspecified site, unspecified as acute or chronic, without mention of hemorrhage, perforation, or obstruction Seasonal allergic rhinitis due to pollen Chest pain at rest- Primary Unspecified chest pain Type 2 diabetes mellitus with hyperglycemia, with long-term current use of insulin ([facility]) Type 2 diabetes mellitus with hyperglycemia, with long-term current use of insulin ([facility])- Primary Benign essential hypertension ([facility]) Essential hypertension, benign Peptic ulcer disease Peptic ulcer, unspecified site, unspecified as acute or chronic, without mention of hemorrhage, perforation, or obstruction BPH without urinary obstruction Seasonal allergic rhinitis due to pollen Acute non-recurrent maxillary sinusitis- Primary Type 2 diabetes mellitus with hyperglycemia, with long-term current use of insulin ([facility]) documented in this encounter [facility]* Diagnosis Type 2 diabetes mellitus with hyperglycemia, with long-term current use of insulin ([facility])- Primary Benign essential hypertension ([facility]) Essential hypertension, benign BPH without urinary obstruction Peptic ulcer disease Peptic ulcer, unspecified site, unspecified as acute or chronic, without mention of hemorrhage, perforation, or obstruction Seasonal allergic rhinitis due to pollen Chest pain at rest- Primary Unspecified chest pain Type 2 diabetes mellitus with hyperglycemia, with long-term current use of insulin ([facility]) Type 2 diabetes mellitus with hyperglycemia, with long-term current use of insulin ([facility])- Primary Benign essential hypertension ([facility]) Essential hypertension, benign Peptic ulcer disease Peptic ulcer, unspecified site, unspecified as acute or chronic, without mention of hemorrhage, perforation, or obstruction BPH without urinary obstruction Seasonal allergic rhinitis due to pollen Acute non-recurrent maxillary sinusitis- Primary Type 2 diabetes mellitus with hyperglycemia, with long-term current use of insulin ([facility]) Dermatophytosis of nail- Primary Dystrophic nail Other specified disease of nail Diabetic polyneuropathy associated with type 2 diabetes mellitus ([facility]) 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 ([facility]) Encounter for long-term (current) use of insulin ([facility]) Encounter for long-term (current) use of insulin documented in this encounter [facility]* Diagnosis Type 2 diabetes mellitus with hyperglycemia, with long-term current use of insulin ([facility])- Primary Benign essential hypertension ([facility]) Essential hypertension, benign BPH without urinary obstruction Peptic ulcer disease Peptic ulcer, unspecified site, unspecified as acute or chronic, without mention of hemorrhage, perforation, or obstruction Seasonal allergic rhinitis due to pollen Chest pain at rest- Primary Unspecified chest pain Type 2 diabetes mellitus with hyperglycemia, with long-term current use of insulin ([facility]) Type 2 diabetes mellitus with hyperglycemia, with long-term current use of insulin ([facility])- Primary Benign essential hypertension ([facility]) Essential hypertension, benign Peptic ulcer disease Peptic ulcer, unspecified site, unspecified as acute or chronic, without mention of hemorrhage, perforation, or obstruction BPH without urinary obstruction Seasonal allergic rhinitis due to pollen Acute non-recurrent maxillary sinusitis- Primary Type 2 diabetes mellitus with hyperglycemia, with long-term current use of insulin ([facility]) Melanocytic nevus of trunk- Primary Benign neoplasm of skin of trunk, except scrotum Seborrheic keratosis Lentigines Actinic keratosis Capillary angioma Nevus, non-neoplastic Melanocytic nevus of face, other location Epidermal inclusion cyst Sebaceous cyst Nummular eczema Contact dermatitis and other eczema, due to unspecified cause documented in this encounter [facility]* Diagnosis Type 2 diabetes mellitus with hyperglycemia, with long-term current use of insulin ([facility])- Primary Benign essential hypertension ([facility]) Essential hypertension, benign BPH without urinary obstruction Peptic ulcer disease Peptic ulcer, unspecified site, unspecified as acute or chronic, without mention of hemorrhage, perforation, or obstruction Seasonal allergic rhinitis due to pollen Chest pain at rest- Primary Unspecified chest pain Type 2 diabetes mellitus with hyperglycemia, with long-term current use of insulin ([facility]) Type 2 diabetes mellitus with hyperglycemia, with long-term current use of insulin ([facility])- Primary Benign essential hypertension ([facility]) Essential hypertension, benign Peptic ulcer disease Peptic ulcer, unspecified site, unspecified as acute or chronic, without mention of hemorrhage, perforation, or obstruction BPH without urinary obstruction Seasonal allergic rhinitis due to pollen Acute non-recurrent maxillary sinusitis- Primary Type 2 diabetes mellitus with hyperglycemia, with long-term current use of insulin ([facility]) Medicare annual wellness visit, subsequent- Primary Nocturnal leg cramps Pruritus Unspecified pruritic disorder Type 2 diabetes mellitus with hyperglycemia, with long-term current use of insulin ([facility]) Benign essential hypertension ([facility]) Essential hypertension, benign Encounter for long-term current use of medication documented in this encounter [facility]* Diagnosis Type 2 diabetes mellitus with hyperglycemia, with long-term current use of insulin ([facility])- Primary Benign essential hypertension ([facility]) Essential hypertension, benign BPH without urinary obstruction Peptic ulcer disease Peptic ulcer, unspecified site, unspecified as acute or chronic, without mention of hemorrhage, perforation, or obstruction Seasonal allergic rhinitis due to pollen Chest pain at rest- Primary Unspecified chest pain Type 2 diabetes mellitus with hyperglycemia, with long-term current use of insulin ([facility]) Type 2 diabetes mellitus with hyperglycemia, with long-term current use of insulin ([facility])- Primary Benign essential hypertension ([facility]) Essential hypertension, benign Peptic ulcer disease Peptic ulcer, unspecified site, unspecified as acute or chronic, without mention of hemorrhage, perforation, or obstruction BPH without urinary obstruction Seasonal allergic rhinitis due to pollen Acute non-recurrent maxillary sinusitis- Primary Type 2 diabetes mellitus with hyperglycemia, with long-term current use of insulin ([facility]) Medicare annual wellness visit, subsequent- Primary Nocturnal leg cramps Pruritus Unspecified pruritic disorder Type 2 diabetes mellitus with hyperglycemia, with long-term current use of insulin ([facility]) Benign essential hypertension ([facility]) Essential hypertension, benign Encounter for long-term current use of medication Hypomagnesemia- Primary Disorders of magnesium metabolism documented in this encounter [facility]* Diagnosis Type 2 diabetes mellitus with hyperglycemia, with long-term current use of insulin ([facility])- Primary Benign essential hypertension ([facility]) Essential hypertension, benign BPH without urinary obstruction Peptic ulcer disease Peptic ulcer, unspecified site, unspecified as acute or chronic, without mention of hemorrhage, perforation, or obstruction Seasonal allergic rhinitis due to pollen Chest pain at rest- Primary Unspecified chest pain Type 2 diabetes mellitus with hyperglycemia, with long-term current use of insulin ([facility]) Type 2 diabetes mellitus with hyperglycemia, with long-term current use of insulin ([facility])- Primary Benign essential hypertension ([facility]) Essential hypertension, benign Peptic ulcer disease Peptic ulcer, unspecified site, unspecified as acute or chronic, without mention of hemorrhage, perforation, or obstruction BPH without urinary obstruction Seasonal allergic rhinitis due to pollen Acute non-recurrent maxillary sinusitis- Primary Type 2 diabetes mellitus with hyperglycemia, with long-term current use of insulin ([facility]) Medicare annual wellness visit, subsequent- Primary Nocturnal leg cramps Pruritus Unspecified pruritic disorder Type 2 diabetes mellitus with hyperglycemia, with long-term current use of insulin ([facility]) Benign essential hypertension ([facility]) Essential hypertension, benign Encounter for long-term current use of medication Dermatophytosis of nail- Primary Dystrophic nail Other specified disease of nail Diabetic polyneuropathy associated with type 2 diabetes mellitus ([facility]) Encounter for long-term (current) use of insulin ([facility]) Encounter for long-term (current) use of insulin documented in this encounter [facility]* Diagnosis Type 2 diabetes mellitus with hyperglycemia, with long-term current use of insulin ([facility])- Primary Benign essential hypertension ([facility]) Essential hypertension, benign BPH without urinary obstruction Peptic ulcer disease Peptic ulcer, unspecified site, unspecified as acute or chronic, without mention of hemorrhage, perforation, or obstruction Seasonal allergic rhinitis due to pollen Chest pain at rest- Primary Unspecified chest pain Type 2 diabetes mellitus with hyperglycemia, with long-term current use of insulin ([facility]) Type 2 diabetes mellitus with hyperglycemia, with long-term current use of insulin ([facility])- Primary Benign essential hypertension ([facility]) Essential hypertension, benign Peptic ulcer disease Peptic ulcer, unspecified site, unspecified as acute or chronic, without mention of hemorrhage, perforation, or obstruction BPH without urinary obstruction Seasonal allergic rhinitis due to pollen Acute non-recurrent maxillary sinusitis- Primary Type 2 diabetes mellitus with hyperglycemia, with long-term current use of insulin (CMS/HCC) Medicare annual wellness visit, subsequent- Primary Nocturnal leg cramps Pruritus Unspecified pruritic disorder Type 2 diabetes mellitus with hyperglycemia, with long-term current use of insulin (CMS/HCC) Benign essential hypertension (CMS/HCC) Essential hypertension, benign Encounter for long-term current use of medication Left elbow pain- Primary Pain in joint, upper arm documented in this encounter [facility]* Diagnosis Onset Date Resolution Status Admit Date Prostate cancer acute November 04, 2024 9:41am Prostate cancer acute November 04, 2024 9:41am [facility] Work Phone: Evaluation note* Diagnosis Type 2 diabetes mellitus with hyperglycemia, with long-term current use of insulin (HCC)- Primary Benign essential hypertension Essential hypertension, benign BPH without urinary obstruction Peptic ulcer disease Peptic ulcer, unspecified site, unspecified as acute or chronic, without mention of hemorrhage, perforation, or obstruction Seasonal allergic rhinitis due to pollen Chest pain at rest- Primary Unspecified chest pain Type 2 diabetes mellitus with hyperglycemia, with long-term current use of insulin (HCC) Type 2 diabetes mellitus with hyperglycemia, with long-term current use of insulin ([facility])- Primary Benign essential hypertension Essential hypertension, benign Peptic ulcer disease Peptic ulcer, unspecified site, unspecified as acute or chronic, without mention of hemorrhage, perforation, or obstruction BPH without urinary obstruction Seasonal allergic rhinitis due to pollen Acute non-recurrent maxillary sinusitis- Primary Type 2 diabetes mellitus with hyperglycemia, with long-term current use of insulin (HCC) Medicare annual wellness visit, subsequent- Primary Nocturnal leg cramps Pruritus Unspecified pruritic disorder Type 2 diabetes mellitus with hyperglycemia, with long-term current use of insulin (HCC) Benign essential hypertension Essential hypertension, benign Encounter for long-term current use of medication Preoperative clearance- Primary Unspecified pre-operative examination Other chest pain Abnormal EKG Nonspecific abnormal electrocardiogram (ECG) (EKG) Renal calculi Calculus of kidney Thrombocytopenia Unspecified thrombocytopenia Type 2 diabetes mellitus with hyperglycemia, with long-term current use of insulin (HCC) Benign essential hypertension Essential hypertension, benign documented in this encounter [facility] Narrative No data available for this section [facility] progress note No data available for this section [facility] progzdlu note Author Rosy Pina [facility] July 12, 2022 9:52am Note Date/Time July 12, 2022 9 :36am [place] [address] Rad Onc Follow Up Note - OP Signed Patient: Zach Chamorro MR#: [id number] : 1945 Acct:[id number] Age/Sex: 76 / M Type: REG RCR Copies to: MD Jermaine Quintero MD~ Date of Service Service Date: 07/12/22 Assessment & Plan (1) Prostate cancer Plan: Return to clinic 2 months for first posttreatment PSA Assessment: 76-year-old male with 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 Multi parametric MRI is consistent with the biopsy findings. There was a singlecore of Tanna 3+3+6 disease that was found on the left- no extracapsular extension. Patient has a large prostate gland 78 mL and was on tamsulosin 0.4 mg daily due to the BPH at presentation. On June 13, 2022 patient completed definitive SBRT to the prostate 37.5 Olvera in 5 fractions delivered every other day. He did require an increase in Flomax to twice daily. He returns to clinic today and continues the twice daily Flomax. He has worsened frequency and urgency which should continue to improve over time. We will have him come back in 2 months which is 3 months posttreatment for his first PSA. Ideally we can reduce the Flomax back down to once daily at that point. Patient communicates his understanding we will see him back in 2 months. Follow Up Note - Narrative 76-year-old male referred for new diagnosis of prostate cancer: Followed by urology due to a history of BPH with urinary obstruction. PSA history: December, 5.89 December, 4.December 4.December 3.November 2.November 2.81 March 01, 2022 multi parametric MRI showed a 78 mL gland with BPH changes there was a focal area of T2 hypointensity identified in the posterior lateral aspect of the right peripheral zone at the level of the apex measuring 5 mm withrestricted diffusion and low ADC. No extraprostatic extension was seen. There was heterogeneous T2 signal suggestive of prior prostatitis. No evidence of lymphadenopathy PI- RADS 4 MR fusion biopsy confirmed Napoleon 3+4 equal 7 in 3 cores including the region of interest as well as the right anterior medial gland and Tanna 3+3 equal 6 in 1 core at the left base. At consult AUA 5 reporting frequency about half the time and stable nocturia 2 times per night. Quality of life is mostly satisfied IMER is 9 consistent with moderate ED. On tamsulosin 0.4 mg daily at presentation. On June 13, 2022 patient completed definitive SBRT to the prostate 37.5 Olvera in 5 fractions delivered every other day. Patient has a large prostate with BPHat baseline so he did require an increase in Flomax to twice daily. He returns to clinic today and AUA is 14 reporting nocturia 4 times a night as well as increased urgency and frequency. Quality of life is mostly satisfied. He denies any significant change in bowel habits. Biggest complaint is worsening vision. Physical Exam General: alert and oriented male in no acute distress HEENT: normocephalic, extra ocular movements intact Lungs: normal work of breathing on room air Abdomen: non acute MSK: extremities within normal limits Neuro: grossly intact Dictated By: Rosy Pina MD DD/ Signed By: <Electronically signed by Rosy Pina MD> 07/12/22 0952 [facility] Work Phone: Progress note Author Rosa Davies [facility] December 13, 2022 10:35am Note Date/Time December 13, 2022 10:09 am [facility] [place] [id number] Rad Onc Follow Up Note - OP Signed Patient: Zach Chamorro MR#: [id number] : 1945 Acct:[id number] Age/Sex: 77 / M Type: REG RCR Copies to: MD Jermaine Quintero MD~ Subjective - Service Date/Time Date: 12/13/22 Time: 10:09 - Diagnosis Adenocarcinoma the prostate, Napoleon score 3+4= 7, intermediate risk with initial PSA of 5.69, stage T1cN0 M0 - Chief Complaint I am no urinary or bowel complaints - History of Present Illness 77-year-old male with 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 Multi parametric MRI is consistent with the biopsy findings. There was a singlecore of Napoleon 3+3+6 disease that was found on the left- no extracapsular extension. Patient has a large prostate gland 78 mL and was on tamsulosin 0.4 mg daily due to the BPH at presentation. On June 13, 2022 patient completed definitive SBRT to the prostate 37.5 Olvera in 5 fractions delivered every other day. He did require an increase in Flomax to twice daily. He returns to clinic today and urination has normalized to baseline. AUA is returned to 5 with stable nocturia 2 times a night. IMER continues to be 2 and I-PSS score is 10 with quality of life mostly satisfied. No major complaints of dysuria, hematuria, nausea or vomiting. He has good control of his urination and he continues on Flomax at bedtime. He has no complaint of headaches, neck lumps, cough or hemoptysis, backache, abdominal discomfort, bowel problems, leg swelling, motor or sensory changes. No fever, chills or night sweats. His appetite and weight remain stable. I've closely reviewed the patient's oncologic, medical, surgical, social, and family history. Changes noted above. I also reviewed the patient's medicationsvia reconciliation, as per the nursing record. - Review of Systems ROS: As per HPI. Objective Height 6 ft 2 in Weight 93.894 kg Temp 97.8 F 12/13/22 09:33 Pulse 79 12/13/22 09:33 Resp 18 12/13/22 09:33 BP 150/77 H 12/13/22 09:33 Pulse Ox 98 12/13/22 09:33 O2 Del Method Room Air 12/13/22 09:33 Pain: 0/10 Distress Screen Results: RN Distress Screening Start: 04/27/22 09:18 Freq: Status: Active Protocol: Document 12/13/22 09:34 SM (Rec: 12/13/22 09:34 [id number]) Distress Screening Distress Score: 0 No worry/distress Distress Screening Total 0 Karnofsky Performance Scale: 90%: Can perform normal activity, minor signs of disease Physical Exam: Examination today shows an alert, oriented pleasant gentleman who is in no acute distress. HEENT examination did not reveal any cranial neuropathy. No palpable cervical or supraclavicular lymphadenopathy. His lungs are clear toauscultation. Cardiac examinations unremarkable. Abdomen is soft nontender andthere is no palpable mass or organomegaly. Local examination lower pelvic area did not reveal any significant radiation related skin changes. No palpable inguinal lymphadenopathy. On perianal anal examination, there is no residual skin reaction. Rectal examination was deferred today. No leg edema. Patient remains neurologically stable Results Total PSA 2.090 ng/mL (0.000-4.000) 09/04/22 13:40 Impression: Adenocarcinoma the prostate, Napoleon score 3+4= 7, intermediate risk with initial PSA of 5.69, stage T1cN0 M0 status post SBRT treatment to the prostate which completed in June 2022. His most recent follow-up PSA level is 1.59 ascompared to her prior PSA of 2.09 in August 2022. Assessment & Plan (1) Prostate cancer Plan: Patient is clinically localized prostate carcinoma status post SBRT treatments to the prostate gland 6 months ago returns today for his scheduled radiation collagen follow-up and has no significant urinary or bowel complaints. His PSA continues to decrease from 5.69 (pretreatment) to 2.09 in August 2022 and the most recent reading being 1.59. He is scheduled to see Dr. Mancia in follow-up within next couple of week and I shall plan to see him back again in 6 months for his next scheduled radiation oncology follow-up with a repeat PSA level at that time. Patient was advised to call us or Dr. Mancia office if he has any significant urinary or bowel problems in the interim. Dictated By: Rosa Davies MD DD/ [id number] Signed By: <Electronically signed by Rosa Davies MD> 12/13/22 1035 [facility] Work Phone: Progress note Author Rosy Pina [facility] January 10, 2024 10:47am Note Date/Time January 10, 2024 10: 38am [facility] [place] [address] Cancer Center Note Signed Patient: Zach Chamorro MR#: [id number] : 1945 Acct:[id number] Age/Sex: 78 / M Type: REG AMB Date of Service: 01/10/24 Copies to: MD Jermaine Quintero MD~ Assessment & Plan (1) Prostate cancer: Plan: Return to clinic late Apr 2024 with PSA -will transition to 6-month follow-up [id number] as he will be 2 years out. 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 Patient has a large prostate gland 78 mL and was on tamsulosin 0.4 mg daily due to the BPH at presentation. June 13, 2022 patient completed definitive SBRT to the prostate 37.5 Olvera in 5fractions delivered every other day. Posttreatment PSAs Aug 2022 2.17 November 2022 1.May 0.Sep 0.4 (boone) December 2023 0.800 Am pleased with his progress. Patient is now 1.5 years out from treatment. We will check another PSA in April 2024 and then transition to 6-month follow-up. He was given the option of phone or virtual follow-up should he prefer. Orders: Orders PSA Total (Not a Screen) 4 Months C61 - Malignant neoplasm of prostate History of Present Illness HPI 78-year-old male referred for new diagnosis of prostate cancer: Followed by urology due to a history of BPH with urinary obstruction. PSA history: December, 5.89 December, 4.December 4.December 3.November 2.November 2.81 March 01, 2022 multi parametric MRI showed a 78 mL gland with BPH changes there was a focal area of T2 hypointensity identified in the posterior lateral aspect of the right peripheral zone at the level of the apex measuring 5 mm withrestricted diffusion and low ADC. No extraprostatic extension was seen. There was heterogeneous T2 signal suggestive of prior prostatitis. No evidence of lymphadenopathy PI- RADS 4 MR fusion biopsy confirmed Napoleon 3+4 equal 7 in 3 cores including the region of interest as well as the right anterior medial gland and Napoleon 3+3 equal 6 in 1 core at the left base. At consult AUA 5 reporting frequency about half the time and stable nocturia 2 times per night. Quality of life is mostly satisfied IMER is 9 consistent with moderate ED. On tamsulosin 0.4 mg daily at presentation. June 13, 2022 patient completed definitive SBRT to the prostate 37.5 Olvera in 5 fractions delivered every other day. Patient has a large prostate with BPH atbaseline so he did require an increase in Flomax to twice daily. Posttreatment PSAs Aug 2022 2.17 November 2022 1.May 0.Sep 0.4 (boone) December 2023 0.800 First follow-up AUA increased to 14 reporting nocturia 4 times a night as well as increased urgency and frequency. Quality of life mostly satisfied. He denied any significant change in bowel habits. In follow up: AUA 4. Nocturia 1 time a night. (Improved from baseline) Quality of life is mostly satisfied. IMER 6-7. No bowel complaints been a recent increase in flatus. Today, AUA 5, nocturia 2 x a night, on tamsulosin (Baseline) QOL Mostly satisfied, IMER 7 He continues to follow with urology regarding kidney stones and erectile dysfunction (given medication). December 19, 2023 KUB stable 4 mm left kidney stone. Intake Vitals/Pain Assessment 01/10/24 10:36 Weight 89.811 kg BP 130/69 Blood Pressure Location Lt brachial Position Sitting Pulse 83 Pulse Source NIBP Respiration 18 Pulse Oximetry (%) 98 Oxygen Delivery Method room air Are you having pain? No Intake Visit Reasons: 4 Month Follow Up Prostate Allergies No Known Allergies Allergy (Verified 09/18/23 10:05) [facility] Medical History Medical History (Updated 07/12/22 @ 09:37 by Rosy Pina MD) History of Carr's palsy 2017 Neuropathy Nocturia Prostate cancer TIA (transient ischemic attack) 2018 IDDM (insulin dependent diabetes mellitus) Hypertension H/O gastric ulcer Hypercholesteremia Elevated PSA Kidney stones BPH (benign prostatic hyperplasia) Surgical History Surgical History (Updated 07/12/22 @ 09:37 by Rosy Pina MD) History of vasectomy History of foot surgery heel spurs History of reverse total replacement of right shoulder joint History of phacoemulsification of cataract of both eyes with intraocular lens implantation 2019 History of prostate biopsy 03/28/22 Family History Family History (Updated 05/08/22 @ 14:23 by Mayelin Tovar RN) Father Stomach ulcer Mother Diabetes Stroke Mother No problems noted. Brother No problems noted. Brother Prostate cancer Throat cancer Diabetes Brother Myocardial infarction Social History Social History (System 06/18/17 @ 11:14 by Rachel Brown) Smoking status: Never smoker Physical Exam EXAM Physical Exam KPS 90 General: alert and oriented male in no acute distress HEENT: normocephalic, extra ocular movements intact Lungs: normal work of breathing on room air Abdomen: non acute MSK: extremities within normal limits Neuro: grossly intact Results - [facility] (Rad Onc) LAB RESULTS 2 Total PSA 0.800 ng/mL (0.000-4.000) 12/19/23 10:27 AUA Symptom Score AUA Incomplete emptying - It does not feel like I empty my bladder all the way.: 0 - Not at all Frequency - I have to go again less than two hours after I finish urinating.: 0 - Not at all Intermittency - I stop and start again several times when I urinate.: 1 - Less than 1 time in 5 Urgency - It is hard to wait when I have to urinate.: 1 - Less than 1 time in 5 Weak stream - I have a weak urinary stream.: 1 - Less than 1 time in 5 Straining - I have to push or strain to begin urination.: 0 - Not at all Nocturia - I get up to urinate after I go to bed until the time I get up in the morning.: 2 times AUA Symptom Score: 5 Source: Julius BARNEY, Josafat LOWERY Jr, [place] MP, et al, and the Measurement Committeeof the [employer]. The [place] symptom index for benign prostatic hyperplasia. J Urol. 1992; 148: 8637-7472. Copyright 1992 [employer] IMER Score Over the past six months How do you rate your confidence that you could get and keep an erection?: Low When you had erections with sexual stimulation, how often were your erections hard enough for penetration?: Almost never or never During sexual intercourse, how often were you able to maintain your erection after you had penetrated your partner?: Almost never or never During sexual intercourse, how difficult was it to maintain your erection to completion of intercourse?: Extremely difficult When you attempted sexual intercourse, how often was it satisfactory for you?: Afew times (much less than half the time) IMER Total: 7 Dictated By: Rosy Pina MD DD/ Signed By: <Electronically signed by Rosy Pina MD> 01/10/24 1047 [facility] Work Phone: Progress note Author Tre Bertrand [facility] Note Date/Time November 04, 2024 10:07 am [place] [address] Cancer Center Note Signed Patient: Zach Chamorro MR#: [id number] : 1945 Acct:[id number] Age/Sex: 79 / M Type: DEP AMB Date of Service: 11/04/24 Copies to: Blake Ng MD~ Assessment & Plan A/P (1) Prostate cancer: Plan: Return to clinic with [facility] [employer] [facility] Apr 2025 with next PSA Assessment: 78-year-old male with 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 Patient has a large prostate gland 78 mL and was on tamsulosin 0.4 mg daily due to the BPH at presentation. June 13, 2022 patient completed definitive SBRT to the prostate 37.5 Olvera in 5fractions delivered every other day. Posttreatment PSAs Aug 2022 2.17 November 2022 1.May 0.Sep 0.13 December 2023 0.800 Apr 2024 0.400 October 2024 0.270 (boone) Patient continues to do quite well. He continues tamsulosin daily. He is now over 2 years out from treatment. We will continue 6-month follow-up and PSA. Hecontinues to follow with urology annually as well for kidney stones, with his next urology visit in December 2024. Orders: Orders PSA Total (Not a Screen) 6 Months C61 - Malignant neoplasm of prostate Patient Instructions: follow-up in 6mo with [facility] [employer] [facility] [facility] PSA in 6mo CHEMO PLAN No Active Chemotherapy History of Present Illness HPI 78-year-old male referred for new diagnosis of prostate cancer: Followed by urology due to a history of BPH with urinary obstruction. PSA history: December, 5.89 December, 4.December 4.December 3.November 2.November 2.81 March 01, 2022 multi parametric MRI showed a 78 mL gland with BPH changes there was a focal area of T2 hypointensity identified in the posterior lateral aspect of the right peripheral zone at the level of the apex measuring 5 mm withrestricted diffusion and low ADC. No extraprostatic extension was seen. There was heterogeneous T2 signal suggestive of prior prostatitis. No evidence of lymphadenopathy PI- RADS 4 MR fusion biopsy confirmed Napoleon 3+4 equal 7 in 3 cores including the region of interest as well as the right anterior medial gland and Tanna 3+3 equal 6 in 1 core at the left base. At consult AUA 5 reporting frequency about half the time and stable nocturia 2 times per night. Quality of life is mostly satisfied IMER is 9 consistent with moderate ED. On tamsulosin 0.4 mg daily at presentation. June 13, 2022 patient completed definitive SBRT to the prostate 37.5 Olvera in 5 fractions delivered every other day. Patient has a large prostate with BPH atbaseline so he did require an increase in Flomax to twice daily. Posttreatment PSAs Aug 2022 2.17 November 2022 1.May 0.Sep 0.13 December 2023 0.800 Apr 2024 0.400 October 2024 0.270 (boone) In follow up: AUA 4. Nocturia 1 time a night. (Improved from baseline) Quality of life is mostly satisfied. IMER 6-7. No bowel complaints been a recent increase in flatus. AUA 5, nocturia 2 x a night, on tamsulosin (Baseline) QOL Mostly satisfied, IMER 15 Oct 2024 he is doing well without any changes in urinary symptoms. He denies bowel symptoms. IPSS is 8 with nocturia 2 times per night. His frequency is almost always, which patient notes is not changed over time. QOL is mostly satisfied. IMER 6. He continues on tamsulosin daily. He continues to follow with urology regarding kidney stones and erectile dysfunction (given medication). December 19, 2023 KUB stable 4 mm left kidney stone. Intake Intake Visit Reasons: 6 Month Follow Up, Review PSA Allergies No Known Allergies Allergy (Verified 09/18/23 10:05) [facility] Medical History Medical History (Updated 07/12/22 @ 09:37 by Rosy Pina MD) History of Carr's palsy 2017 Neuropathy Nocturia Prostate cancer TIA (transient ischemic attack) 2018 IDDM (insulin dependent diabetes mellitus) Hypertension H/O gastric ulcer Hypercholesteremia Elevated PSA Kidney stones BPH (benign prostatic hyperplasia) Surgical History Surgical History (Updated 07/12/22 @ 09:37 by Rosy Pina MD) History of vasectomy History of foot surgery heel spurs History of reverse total replacement of right shoulder joint History of phacoemulsification of cataract of both eyes with intraocular lens implantation 2019 History of prostate biopsy 03/28/22 Family History Family History (Updated 05/08/22 @ 14:23 by Mayelin Tovar RN) Father Stomach ulcer Mother Diabetes Stroke Mother No problems noted. Brother No problems noted. Brother Prostate cancer Throat cancer Diabetes Brother Myocardial infarction Social History Social History (System 06/18/17 @ 11:14 by Rachel Brown) Smoking status: Never smoker Physical Exam EXAM Physical Exam KPS 90 General: alert and oriented male in no acute distress HEENT: normocephalic, extra ocular movements intact Lungs: normal work of breathing on room air Abdomen: non acute MSK: extremities within normal limits Neuro: grossly intact Results - [facility] LAB RESULTS Total PSA 0.270 ng/mL (0.000-4.000) 10/28/24 09:46 10/28 Social Determinants of Health AUA Incomplete emptying - It does not feel like I empty my bladder all the way.: 0 - Not at all Frequency - I have to go again less than two hours after I finish urinating.: 5 - Almost always Intermittency - I stop and start again several times when I urinate.: 1 - Less than 1 time in 5 Urgency - It is hard to wait when I have to urinate.: 0 - Not at all Weak stream - I have a weak urinary stream.: 0 - Not at all Straining - I have to push or strain to begin urination.: 0 - Not at all Nocturia - I get up to urinate after I go to bed until the time I get up in the morning.: 2 times AUA Symptom Score: 8 Quality of life due to urinary symptoms: If you were to spend the rest of your life with your urinary condition the way it is now, how would you feel about that?: Mostly Satisfied Source: Julius BARNEY, Josafat LOWERY Jr, O'David MP, et al, and the Measurement Committeeof the [employer]. The [employer] symptom index for benign prostatic hyperplasia. J Urol. 1992; 148: 1352-0302. Copyright 1992 [employer] Over the past six months How do you rate your confidence that you could get and keep an erection?: Very low When you had erections with sexual stimulation, how often were your erections hard enough for penetration?: Almost never or never During sexual intercourse, how often were you able to maintain your erection after you had penetrated your partner?: Almost never or never During sexual intercourse, how difficult was it to maintain your erection to completion of intercourse?: Extremely difficult When you attempted sexual intercourse, how often was it satisfactory for you?: Afew times (much less than half the time) IMER Total: 6 Dictated By: Tre Bertrand APRN DD/ 0948 Signed By: <Electronically signed by MARIO Bertrand> 11/04/24 1012 [facility] Work Phone: Reason for referral (narrative) Referred by: Jermaine MANCIA MD [facility] reason for referral (narrative)No reason for referral [facility] Work Phone: Summary Purpose Family History No Family History Records Found Relationship Condition Age at Onset Recorded Date/T margarito father Gastric ulcer Unknown Not Specified Diabetes mellitus Unknown Cerebrovascular accident (CVA) Unknown brother Malignant neoplasm of prostate Unknown Malignant neoplasm of throat Unknown Diabetes mellitus Unknown brother Myocardial infarction Unknown Relationship Condition Age at Onset Recorded Date/T margarito father Gastric ulcer Unknown mother Diabetes mellitus Unknown Cerebrovascular accident (CVA) Unknown brother Malignant neoplasm of prostate Unknown Malignant neoplasm of throat Unknown Diabetes mellitus Unknown brother Myocardial infarction Unknown Advance Directives No Advanced Directives Records Found Advance Directive Response Recorded Date/ Time Advance Directives No June 20, 2017 11:20am Advance Directive Response Recorded Date/ Time Advance Directives No June 20, 2017 10:20am Medications Administered Section Inactive Administered Medications - up to 3 most recent administrations Medication Order MAR Action Action Date Dose Rate Site fluorescein-benoxinate 0.25-0.4 % 1 Drop (FLURESS) 1 Drop, BOTH EYES, ONCE, 1 dose, On Tu10/25/21 at 1130, FOR THE EYE Given 10/25/2021 11:30 AM EDT 1 Drop Chief Complaint and Reason for Visit Chief Complaint Admit Date 6 Month Follow Up, Review PSA November 04, 2024 9:41am N20.0 December 24, 2024 2:42 pm Reason for Visit Admit Date Prostate cancer November 04, 2024 9:41a m Chief Complaint elevated psa Chief Complaint elevated psa Prostate Cancer Reason for Visit Prostate cancer Chief Complaint elevated psa Prostate Cancer Prostate Cancer Reason for Visit Prostate cancer Chief Complaint elevated psa Prostate Cancer Prostate Cancer Prostate Cancer, Screening Reason for Visit Prostate cancer Chief Complaint Prostate Cancer Prostate Cancer, Screening Prostate Cancer Reason for Visit Prostate cancer Chief Complaint Prostate Cancer Reason for Visit Prostate cancer Chief Complaint Prostate Cancer R97.20;N40.1;N20.0 Reason for Visit Prostate cancer Chief Complaint R97.20;N40.1;N20.0 Prostate Cancer Reason for Visit Prostate cancer Chief Complaint Prostate Cancer Chest Pain Reason for Visit Prostate cancer Chief Complaint Chest Pain Prostate Cancer Follow Up, Prostate Cancer Reason for Visit Prostate cancer Prostate cancer Chief Complaint n40.1 c61 n20.0 Chief Complaint n40.1 c61 n20.0 Prostate Cancer 4 Month Follow Up Prostate Reason for Visit Prostate cancer Prostate cancer Chief Complaint n40.1 c61 n20.0 Prostate Cancer 4 Month Follow Up Prostate Z79.899 E11.65 Z79.4 E78.5 Reason for Visit Prostate cancer Prostate cancer Chief Complaint Admit Date E11.65, Z79.4, Z79.899 August 06 1:53pm Chief Complaint Admit Date 6 Month Follow Up, Review PSA November 04, 2024 9:41am Additional Source Comments (unrecognized sect ion and content) No Status Records FoundNo Status Records FoundNo Status Records FoundNo Status Records FoundNo Status Records FoundNo Status Records FoundNo Status Records Found INFORMATION SOURCE (unrecogn ized section and content) DATE CREATED AUTHOR 11/29/2017 [facility] DATE CREATED AUTHOR AUTHOR'S ORGANIZ ATION 11/09/2021 [facility] DATE CREATED AUTHOR AUTHOR'S ORGANIZ ATION 07/31/2022 [facility] DATE CREATED AUTHOR AUTHOR'S ORGANIZ ATION 12/28/2024 [facility] DATE CREATED AUTHOR AUTHOR'S ORGANIZ ATION 01/03/2025 [facility] EPIC DATE CREATED AUTHOR AUTHOR'S ORGANIZ ATION 01/07/2025 [facility] Source Comments (unrecognize d section and content) In the event this informatio n is protected by the Federal Confidentiality of Alcohol and Drug Abuse Patient Records regulations: The Federal rules restrict any use of the information to criminally investigate or prosecute any alcohol or drug abuse patient.[facility] Reason for Visit (unrecogniz ed section and content) Reason Comments OS Iris Nevus LV 10/26/2020 Reason Comments DM Foot Care Zach Chamorro is a 78 y.o. male who presents for DM Foot Care. BS: 113 A1C: 7.1/Lv Dr. Ng 01/28/2024/SS: 12 Reason Comments Shoe Measure Zach Chamorro is a 78 y.o. male who presents for DM Foot Care. BS: 113 A1C: 7.1/Lv Dr. 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 BS: 113 A1C: 7.1/Lv Dr. Ng 01/28/2024/SS: 12 Reason Comments New Med Request Reason Comments Foot Pain Established pt prese nts today with cocnertns of painful lump on left foot in arch. Noticed this past weekend. PCP: Dr. Ng 01/28/24, A1C: 7.1, BS:, SS: 12 Reason Onset Date Comments Advice Only 04/21/2024 Reason Comments Follow-up Established pt prese nts today for 1 month fuv for left foot pain and swelling, pt states has not been painful, but still swelling. PCP: Dr. Ng 01/28/24, A1C: 6.5, BS: 86, SS: 12 Reason Comments Cough Sinusitis Epistaxis (Nose Bleed) Reason Comments DM Foot Care PCP: Dr. Ng 06/30/24, A1C: 7.1 (01/2024), BS: 190 Reason Comments Skin Check Follow-up Reason Comments Medicare Annual Wellness Visit Subsequen t wellness Reason Comments DM Foot Care PT is here today wit h his spouse for diabetic foot care, he states the nails are becoming painful for himBS: 89 A1C: 7.4LV Dr. Ng 08-05-2024SS: 12 Reason Comments Pain Reason Comments Follow-up Surgical clearance Care Teams (unrecognized sec tion and content) Team Status: Active Member Role Status Dates Blake Ng MD Primary Care Provider Active Team Status: Inactive Member Role Status Dates Blake Ng MD Primary Care Provide r, Attending Provider Active Start: August 22, 2023 End: August 22, 2023 María Reddy DO Referring Provider Active S tart: August 22, 2023 End: August 22, 2023 Team Status: Active Member Role Status Dates Blake Ng MD Primary Care Provider Active S tart: September 18, 2023 Rosy Pina MD Attending Provider Active Start: September 18, 2023 Jermaine Mancia MD Referring Provider Active St art: September 18, 2023 Team Status: Inactive Member Role Status Dates Blake Ng MD Primary Care Provider Active S tart: September 18, 2023 End: September 18, 2023 Rosy Pina MD Attending Provider Active Start: September 18, 2023 End: September 18, 2023 Pyrometer Mechanic Relationship Specialty Start Date End Date Alejandro Davenport PCP - General Family Practice 10/02/13 Team Status: Inactive Member Role Status Dates Jermaine Mancia MD Attending Provider Active Blake Ng MD Primary Care Provider Active Team Status: Active Member Role Status Dates Blake Ng MD Primary Care Provider Active Rosy Pina MD Attending Provider Active Jermaine Mancia MD Referring Provider Active Team Status: Inactive Member Role Status Dates Blake Ng MD Primary Care Provider Active Rosy Pina MD Attending Provider Active Team Status: Inactive Member Role Status Dates Blake Ng MD Primary Care Provider Active Jermaine Mancia MD Attending Provider Active Rosy Pina MD Referring Provider Active Pyrometer Mechanic Relationship Specialty Start Date End Date Blake Ng MD PCP - [facility] Family Medicine 12/21/22 Pyrometer Mechanic Relationship Specialty Start Date End Date Blake Ng MD PCP - General Family Medicine 12/21/22 Team Status: Active Member Role Status Dates Blake Ng MD Primary Care Provider Active S tart: June 13, 2023 Rosy Pina MD Attending Provider Active Start: June 13, 2023 Jermaine Mancia MD Referring Provider Active St art: June 13, 2023 Team Status: Inactive Member Role Status Dates Blake Ng MD Primary Care Provider Active S tart: December 19, 2023 End: December 19, 2023 Jermaine Mancia MD Attending Provider Active St art: December 19, 2023 End: December 19, 2023 Team Status: Active Member Role Status Dates Blake Ng MD Primary Care Provider Active S tart: January 10, 2024 Rosy Pina MD Attending Provider Active Start: January 10, 2024 Jermaine Mancia MD Referring Provider Active St art: January 10, 2024 Team Status: Inactive Member Role Status Dates Blake Ng MD Primary Care Provider Active S tart: January 10, 2024 End: January 10, 2024 Rosy Pina MD Attending Provider Active Start: January 10, 2024 End: January 10, 2024 Jermaine Mancia MD Referring Provider Active St art: January 10, 2024 End: January 10, 2024 Team Status: Inactive Member Role Status Dates Blake Ng MD Primary Care Provide r, Attending Provider Active Start: January 25, 2024 End: January 25, 2024 Pyrometer Mechanic Relationship Specialty Start Date End Date Blake Ng MD [address] [place] [phone] PCP - General Family Medicine 07/24/23 Pyrometer Mechanic Relationship Specialty Start Date End Date Blake Ng MD [address] [place] [address] PCP - General Family Medicine 07/24/23 Pyrometer Mechanic Relationship Specialty Start Date End Date Blake Ng MD [address] [place] [address] PCP - General Family Medicine 07/24/23 Pyrometer Mechanic Relationship Specialty Start Date End Date Blake Ng MD [address] [place] [phone] PCP - General Family Medicine 07/24/23 Pyrometer Mechanic Relationship Specialty Start Date End Date Blake Ng MD [address] [place] [phone] PCP - General Family Medicine 07/24/23 Pyrometer Mechanic Relationship Specialty Start Date End Date Blake Ng MD [address] [place] [phone] PCP - General Family Medicine 07/24/23 Pyrometer Mechanic Relationship Specialty Start Date End Date Blake Ng MD [address] [place] [phone] PCP - General Family Medicine 07/24/23 Pyrometer Mechanic Relationship Specialty Start Date End Date Blake Ng MD [address] [place] [phone] PCP - General Family Medicine 07/24/23 Pyrometer Mechanic Relationship Specialty Start Date End Date Blake Ng MD [address] [place] [address] PCP - General Family Medicine 07/24/23 Pyrometer Mechanic Relationship Specialty Start Date End Date Blake Ng MD [address] [place] [phone] PCP - General Family Medicine 07/24/23 Blake Ng MD [address] [place] [address] PCP - [facility] 07/18/24 Pyrometer Mechanic Relationship Specialty Start Date End Date Blake Ng MD [address] [place] [phone] PCP - General Family Medicine 07/24/23 Blake Ng MD [address] [place] [address] PCP - [facility] 07/18/24 Pyrometer Mechanic Relationship Specialty Start Date End Date Blake gN MD [address] [place] [address] PCP - General Family Medicine 07/24/23 Blake Ng MD [address] [place] [address] PCP - [facility] 07/18/24 Pyrometer Mechanic Relationship Specialty Start Date End Date Blake gN MD [address] [place] [phone] PCP - General Family Medicine 07/24/23 Blake Ng MD [address] [place] [address] PCP - [facility] 07/18/24 Pyrometer Mechanic Relationship Specialty Start Date End Date Blake Ng MD [address] [place] [phone] PCP - General Family Medicine 07/24/23 Blake Ng MD [address] [place] [phone] PCP - [facility] 07/18/24 Team Status: Inactive Member Role Status Dates Blake gN MD Primary Care Provide r, Attending Provider Active Start: August 06, 2024 End: August 06, 2024 Pyrometer Mechanic Relationship Specialty Start Date End Date Blake Ng MD [address] [place] [phone] PCP - General Family Medicine 07/24/23 Blake Ng MD [address] [place] [phone] PCP - [facility] 07/18/24 Pyrometer Mechanic Relationship Specialty Start Date End Date Blake Ng MD [address] [place] [phone] PCP - General Family Medicine 07/24/23 Blake Ng MD [address] [place] [phone] PCP - [facility] 07/18/24 Pyrometer Mechanic Relationship Specialty Start Date End Date Blake Ng MD [address] [place] [phone] PCP - General Family Medicine 07/24/23 Blake Ng MD [address] [place] [phone] PCP - [facility] 07/18/24 Pyrometer Mechanic Relationship Specialty Start Date End Date Blake Ng MD [address] [place] [phone] PCP - General Family Medicine 07/24/23 Blake Ng MD [address] [place] [phone] PCP - [facility] 07/18/24 Team Status: Inactive Member Role Status Dates Blake Ng MD Primary Care Provider Active S tart: November 04, 2024 End: November 04, 2024 Tre Bertrand APRN Attending Provider Acti ve Start: November 04, 2024 End: November 04, 2024 Jermaine Mancia MD Referring Provider Active St art: November 04, 2024 Team Status: Inactive Member Role Status Dates Blake Ng MD Primary Care Provider Active S tart: December 24, 2024 End: December 24, 2024 Jermaine Mancia MD Attending Provider Active St art: December 24, 2024 End: December 24, 2024 Pyrometer Mechanic Relationship Specialty Start Date End Date Blake Ng MD [address] [place] [phone] PCP - General Family Medicine 07/24/23 Blake Ng MD [address] [place] [address] PCP - [facility] 07/18/24 Pyrometer Mechanic Relationship Specialty Start Date End Date Blake Ng MD [address] [place] [phone] PCP - [facility] 07/24/23 Blake Ng MD [address] [place] [phone] PCP - [facility] 07/18/24 Goals (unrecognized section and content) Goals may be documented in a n alternate section FOR RECORDS PERTAINING TO PATIENTS WHO ARE OR HAVE BEEN ENROLLED IN A CHEMICAL DEPENDENCY/SUBSTANCEABUSE PROGRAM, SOME INFORMATION MAY BE OMITTED. This clinical summary was aggregated from multiple sources. Caution should be exercised in using it in the provision of clinical care. This summary normalizes information from multiple sources, and as a consequence, information in this document may materially change the coding, format and clinical context of patient data. In addition, data may be omitted in some cases. CLINICAL DECISIONS SHOULD BE BASED ON THE PRIMARY CLINICAL RECORDS. [facility]. provides no warranty or guarantee of the accuracy or completeness of information in this document.
--- NOTE | 2025-01-09 07:00 | NM_ITS ---
Patient Name: ZACH TRACY MR#: [id number] : 1945 Exam Date: 01/09/2025 Ordering Doctor: DR SALIMA NG . RADIOLOGY REPORT PROCEDURE: NM CARMEN PERF SPECT REST STR COMPARISON: None. INDICATIONS: CHEST PAIN, EKG CHANGES TECHNIQUE: Exam Description: Stress/Rest one day protocol gated SPECT Rest Imagin.9 mCi Tc-99m Cardiolite IV on 01/09/2025 Stress Imaging 29.7 mCi Tc-99m Cardiolite IV on 01/09/2025 Exercise Protocol: 0.4 mg Lexiscan given IV Heart Rate (bpm): Rest: 79 Max: 94 PMHR: 66 Blood Pressure: Rest: 144/80 Max: 144/80 Symptoms: Rest and peak stress ECG findings were pending and the EKG portion of the study was pending per attending physician [facility] . For more details please see separate cardiac stress test report. FINDINGS: QUALITY OF STUDY: Good PERFUSION DEFECT: LOCATION: Inferolateral SIZE: Medium SEVERITY: Mild TYPE: Fixed with adequate contractility and thickening consistent with diaphragmatic attenuation WALL MOTION: Normal LV SIZE: 94 mL. TID / TCD: 1.0 LVEF: Calculated EF 61%. SUMMARY: Normal myocardial perfusion imaging study CONCLUSION: Negative myocardial perfusion nuclear stress test without evidence of ischemia or infarction Normal left ventricular systolic function, ejection fraction 61% No transient ischemic dilatation, TID 1.0 EKG portion of stress test is reported separately Dictated by: Bree Sierra MD on 01/12/2025 at 12:29 Approved by: Bree Sierra MD on 01/12/2025 at 12:33
--- NOTE | 2025-01-09 08:49 | PC.NURSE ---
Nursing Note Cardiac Stress Test Reviewed: Medication, allergies and patient history reviewed. Stress Test: [x ] Patient tolerated stress test well. [ ] Patient unable to tolerate walking on treadmill. Switched to Lexiscan stress test. [x ] No chest pain noted per patient [ ] Chest pain that resolved prior to leaving stress lab. [x ] No dyspnea noted. [ ] Dyspnea that resolved prior to leaving stress lab. [x ] Patient left stress lab asymptomatic and hemodynamically stable. [ ] Patient taken to the Emergency Room due to non-resolving symptoms following stress test. [ ] Patient achieved target heart rate. [ ] Patient unable to achieve target heart rate. [ ] Aminophylline administered as reversal agent to Lexiscan (Regadenoson). [ ] Nitro administered. Nursing Comments:
[2025-01-09] MEDS: REGADENOSON 0.4 MG/5 ML SYRINGE IV (08:54)
--- NOTE | 2025-01-12 08:53 | PM.STRESS ---
Stress Test Stress Test Allergies Allergy/AdvReac Type Severity Reaction Status Date / Time No Known Drug Allergies Allergy Verified 12/30/24 10:20 Requesting physician: Blake Larson Procedure: This was a Lexiscan stress test with myocardial perfusion imaging performed at the [facility] on 01/09/2025. Intravenous line was secured. The patient was attached to electrocardiographic monitoring. Baseline vital signs and ECG were obtained. Lexiscan 0.4 mg was administered intravenously followed by administration of Cardiolite. The patient then went on to obtain myocardial perfusion imaging. Resting heart rate was 79 bpm and peak heart rate was 94 bpm. Resting blood pressure was 144/80 and peak blood pressure was 144/80. General Information: Reason for Stress Test: Chest pain, ECG changes. Cardiac History and Risk Factors: Hypertension. Stress Test: Protocol: Pharmacologic stress with Lexiscan. Exercise Capacity: Not assessed. Blood Pressure Response: Resting hypertension. Rhythm: Sinus rhythm. ST - Response: [address] segment depression in leads V5 and V6 seen following infusion of Lexiscan. Patient Response: No symptoms. Interpretation: 1. Positive stress test for ischemic ECG changes following infusion of Lexiscan. 2. Myocardial perfusion images will be reported separately.
== END 2025-01-09 06:49 | disposition home or self-care (01) ==
LOC: NM 06:52
PROVIDERS: PCP Family Medicine; Visit Provider Family Medicine
DX: R07.89 Other chest pain (principal); R94.31 Abnormal electrocardiogram [ECG] [EKG]
CPT/HCPCS: 78452; 93017; A9500; J2785

== ENCOUNTER 2025-01-30 07:46 | Outpatient (OUT) | payer MEDICARE, SELFPAY ==
--- OUTSIDE RECORDS SUMMARY | 2025-01-30 07:50 | XMS_ITS | CCD ---
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 Name Role Phone PHYSICIAN, DEFAULT Unavailable Unavailable PHYSICIAN, DEFAULT Unavailable Unavailable Alejandro Davenport Primary Care Provider [phone] BLAKE NG Primary Care Physician MD Jermaine Jensen Attending Provider MD Blake Ng Primary Care Provider [phone] MD Jermaine Jensen Attending Provider [phone] MD Blake Ng Primary Care Provider [phone] MD Rosy Pina Attending Provider MD Jermaine Jensen Referring Provider MD Rosy Pina Attending Provider MD Jermaine Jensen Referring Provider MD Blake Ng Primary Care Provider MD Rosy Pina Attending Provider MD Jermaine Jensen Referring Provider DR BLAKE NG Admitting Unavailable NADEREJerome, DR BLAKE Bernabe Attending Unavailable HERNANDEZ, DR BLAKE Bernabe Primary Care Unavailable HERNANDEZ, DR BLAKE Bernabe Consulting Unavailable HERNANDEZ, DR BLAKE Bernabe Admitting Unavailable NADEREJerome, DR BLAKE Bernabe Attending Unavailable HERNANDEZ, DR BLAKE Bernabe Primary Care Unavailable HERNANDEZ, DR BLAKE Bernaeb Consulting Unavailable MIKEY ., DR DEAN Admitting Unavailable MIKEY ., DR DEAN Attending Unavailable HERNANDEZ, DR BLAKE Bernabe Primary Care Unavailable MIKEY ., DR DEAN Consulting Unavailable ALINA, DR ISABELLA Cano Consulting Unavailable MD Blake Ng Primary Care Provider MD Rosy Pina Attending Provider MD Jermaine Jensen Referring Provider MD Jermaine Jensen Attending Provider MD Rosy Pina Referring Provider MD Blake Ng Primary Care Provider MD Rosy Pina Attending Provider MD Jermaine Jensen Referring Provider [phone] Blake Ng MD Primary Care Provider [phone] MD Blake Ng Primary Care Provider [phone] MD Rosy Pina Attending Provider MD Jermaine Jensen Referring Provider MD Blake Ng Attending Provider [phone] DO María Reddy Referring Provider MD Blake Ng Primary Care Provider MD Rosy Pina Attending Provider MD Jermaine Jensen Referring Provider MD Blake Ng Primary Care Provider [phone] MD Jermaine Jensen Attending Provider MD Rosy Pina Attending Provider MD Jermaine Jensen Referring Provider MD Blake Ng Attending Provider [phone] Blake Ng MD Primary Care Provider Blake Ng MD Unavailable Blake Ng MD Primary Care Provider [phone] Blake Ng MD Attending Provider Blake Ng MD Primary Care Provider Tre Bertrand APRN Attending Provider Jermaine Jensen MD Attending Provider MIKEY, Jermaine R Attending Unavailable JENSEN, Jermaine R Attending Unavailable JENSEN, Jermaine R Admitting Unavailable JENSEN, Jermaine R Attending Unavailable Naderer, Blake Attending Unavailable Naderer, Blake Admitting Unavailable Naderer, Blake Primary Care Unavailable Naderer, Blake Attending Unavailable Naderer, Blake Admitting Unavailable Naderer, Blake Primary Care Unavailable Jensen, Jermaine Referring Unavailable Silvana, Rosy R Admitting Unavailable Silvana, Rosy R Attending Unavailable Naderer, Blake Primary Care Unavailable Jensen, Jermaine Admitting Unavailable Jensen, Jermaine Attending Unavailable Naderer, Blake Primary Care Unavailable MOUKARBEL, CASSANDRA Attending Unavailable RUSHER, ISABELLA Bernabe Attending Unavailable PETITTI, SYMONE Bernabe Attending Unavailable NADERER, BLAKE Attending Unavailable RUSHER, ISABELLA Bernabe Attending Unavailable BROWN, JAYCOB A Referring Unavailable BROWN, JAYCOB Bernabe Attending Unavailable BROWN, JAYCOB Bernabe Referring Unavailable NADERER, BLAKE Attending Unavailable RUSHER, ISABELLA Bernabe Attending Unavailable NADERER, BLAKE Attending Unavailable RUSHER, ISABELLA Bernabe Attending Unavailable RUSHER, ISABELLA Bernabe Attending Unavailable RUSHER, ISABELLA Bernabe Attending Unavailable RUSHER, ISABELLA Bernabe Attending Unavailable RUSHER, ISABELLA Bernabe Referring Unavailable RUSHER, ISABELLA Bernabe Attending Unavailable RUSHER, ISABELLA Bernabe Referring Unavailable NADERER, BLAKE Attending Unavailable Medications Current Medications Medication Drug Class(es) Dates Sig (Normalized) Sig (Original) acetaminophen 325 mg / HYDROcodone bitartrate 7.5 mg oral tablet (1 source) Opioid Agonist Start: 03-16-2022 take 1 tablet by mouth once, then take 1 tablet by mouth every hour [place] 325 mg-7.5 mg oral tablet 1 tab(s), Oral, Once, 1 tab(s), Refill(s) 0, Take 1 hour prior to procedure, [facility], 180, cm, 12/23/21 8:24:00 EDT, Height/Length Dosing, [...] ascorbic acid 226 mg / beta carotene 29064 unt / cuprous oxide 0.8 mg / [...] daily Start: 12-29-2011 take 1 capsule by [facility] once daily Nexium 40 mg Cap-EC 40 mg, Oral, Daily, Refills(s) 0 Start Date: 12/29/11 Status: Ordered Repeat number: 1 Comment on above: Take 40 mg by mouth once daily. ferrous sulfate 325 mg oral tablet (20 sources) Start: 05-08-20 take 1 tablet by mouth once daily hydrOXYzine hydrochloride 25 mg oral tablet (16 sources) Antihistamine Start: 08-05-19 End: 01-03-20 take 1 tablet by mouth four times daily as needed hydrOXYzine HCl (Atarax) 25 MG tablet Indications: Pruritus Take 1 tablet (25 mg) by mouth 4 (four) times a day as needed for itching 60 tablet 3 08/05/2024 01/02/2025 Discontinued 3 ml insulin glargine 100 unt/ml pen injector (20 sources) Insulin Analog Start: 01-23-20 insulin glargine (Lantus SoloStar) 100 UNIT/ML pen Indications: Type 2 diabetes mellitus with hyperglycemia, with long-term current use of insulin ([facility]) Inject 45 Units under the skin at bedtime 3 mL 3 01/22/2025 Active Start: 07-03-2024 inject 45 [IU] by zepeda bcutaneous injection at bedtime insulin glargine (Lantus) 100 UNIT/ML injection Indications: Type 2 diabetes mellitus with hyperglycemia, with long-term current use of insulin ([facility]) Inject 45 Units under the skin at bedtime 45 mL 3 07/03/2024 Active Start: 04-07-2024 inject 45 [IU] by zepeda bcutaneous injection at bedtime insulin glargine (Lantus) 100 UNIT/ML injection Indications: Type 2 diabetes mellitus with hyperglycemia, with long-term current use of insulin ([facility]) Inject 45 Units under the [...] 50 Units subc utaneously daily at bedtime. 24 hr isosorbide mononitrate 30 mg extended release oral tablet (1 source) Nitrate Vasodilator Start: End: take 1 tablet by mouth in the morning, then take 1 tablet by mouth every twenty-four hours isosorbide mononitrate ER (Imdur) 30 MG 24 hr tablet Take 30 mg by mouth in the morning. 01/19/2025 01/19/2026 Active ammonium lactate 120 mg/ml topical lotion (2 [...] daily. Magnesium Oxide, Elemental, 400 MG tablet (14 sources) Start: 025 take 1 tablet by mouth in the morning Magnesium Oxide, Elemental, 400 MG tablet Indications: Hypomagnesemia Take 400 mg by mouth in the morning and at noon 60 tablet 5 08/07/2024 Active metFORMIN hydrochloride 1000 mg oral tablet (20 sources) Biguanide Start: 012 End: 026 take 1 tablet by mouth in the [...] Comment on above: Take 1,000 mg by natlay th twice daily. 24 hr metoprolol succinate 50 mg extended release oral tablet (20 sources) beta-Adrenergic Sophia Start: 024 End: 026 take 1 tablet by mouth once daily metoprolol succinate XL (Toprol-XL) 50 MG 24 hr tablet Indications: Type 2 diabetes mellitus with hyperglycemia, with long-term current use of insulin (HCC) , Hypercholesterolemia , Elevated PSA , Dyslipidemia Take 1 tablet (50 mg) by mouth Daily 90 tablet 3 07/03/2024 06/28/2025 Active Start: 04-26-2022 take 2 tablets by mo ut every twenty-four hours at bedtime Start: 04-26-2022 [...] hyperglycemia, with long-term current use of insulin ([facility]) Inject 1 mg under the skin 1 (one) time per week 3 each 3 07/03/2024 Active Start: 07-03-2024 inject 1 mg by subcu taneous injection every week semaglutide (Ozempic, 1 MG/DOSE,) 4 MG/3ML solution pen-injector Indications: Type 2 diabetes mellitus with hyperglycemia, with long-term current use of insulin (CMS/HCC) Inject 1 mg under the skin 1 (one) time per week 3 each 3 07/03/2024 Active Start: 01-28-2024 inject 1 mg by subcu taneous injection every week semaglutide (Ozempic, 1 MG/DOSE,) 4 MG/3ML solution pen-injector Indications: Type 2 diabetes mellitus with hyperglycemia, with long-term current use of insulin (CMS/[facility]) Inject 1 mg under the [...] hours., # 30 tab(s), Refills(s) 3, Pharmacy: [facility] [id number], 180, cm, 12/29/24 8:48:00 EDT, Height/Length Dosing, [...] 07/03/2024 01/02/2025 Discontinued take 1 capsule by [facility] every twenty-four hours at bedtime tamsulosin (Flomax) 0.4 MG 24 hr capsule Take 0.4 mg by mouth at bedtime. 0 Active Comment on above: Take 0.4 mg by mouth once daily. ubidecarenone 100 mg oral ca psule (20 sources) Start: 05-08-2022 Start: 12-29-2011 take 1 capsule by [facility] twice daily Q-Sorb Co Q-10 oral capsule [...] Comment on above: Take 1,000 mcg by [facility] once daily. Vitamins A,C,G-Sxms-Fzknhw (Preservision Areds) 14,320-226-200 sxhg-bw-maxp Capsule (14 sources) Start: 05-08-2022 take 1 capsule by mouth twice daily Vitamins A,C,N-Ypyc-Bemieu (Preservision Areds) 14,320-226-200 ufls-ap-xxyo Capsule Active 1 CAP PO Twice daily May 08, 2022 1:00am Start: 05-08-2022 take 1 capsule by [facility] twice daily Vitamins A,C,I-Yezz-Ljcbbq (Preservision Areds) 14,320-226-200 rzux-mv-nwed Capsule Active 1 CAP PO Twice daily [...] Comment on above: Take 1 tablet by [facility] twice daily. benoxinate hydrochloride 4 mg/ml / [...] 06-13-2023 Methylprednisolone Discontin ued 0 .ROUTE .COMPLEX June 06, 2022 1:00am [...] Nummular eczema; 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: [Nummular dermatitis] 07-19-2023 Episodic Coagulation and hemorrhagic disorders (7 sources) Thrombocytopenic disorder; 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: [Thrombocytopenia, unspecified] Onset: [...] sources) Hypercholesterolemia; 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: [Hyperlipidemia, unspecified] Onset: 01-19-2022 Resolved: 01-20-2025 08-22-2013 Chronic Essential hypertension (20 sources) Hypertensive disorder; 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: [Essential (primary) hypertension] Onset: 01-19-2022 12-29-2011 Chronic Gastroduodenal ulcer (except hemorrhage) (20 sources) Peptic ulcer; 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: [Peptic ulcer, site unspecified, unspecified as acute or chronic, without hemorrhage or perforation] Onset: 08-01-2023 08-01-2023 Chronic Genitourinary symptoms and ill-defined conditions (20 sources) Nocturia; 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: [Nocturia] Onset: 12-25-2022 Resolved: 08-05-2024 12-20-2018 Episodic Heart valve disorders (2 sources) Cardiac murmur, unspecified; 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: [Cardiac murmur, unspecified] Onset: 01-19-2025 Episodic Hyperplasia of prostate (20 sources) Benign prostatic hypertrophy with outflow obstruction; 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: [Benign prostatic hyperplasia with lower urinary tract symptoms] Onset: 12-16-2021 Resolved: 08-01-2023 Chronic Mycoses (4 sources) Onychomycosis due to dermatophyte ; 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: [Tinea unguium] 03-24-2024 Episodic Nonspecific chest pain (20 sources) Chest pain at rest; 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: [Chest pain, unspecified] Onset: 08-13-2023 Resolved: 08-05-2024 08-13-2023 Episodic Osteoarthritis (20 sources) Osteoarthritis of joint of right shoulder region; 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: [Localized, primary osteoarthritis of the hand] Onset: 12-25-2022 05-09-2018 Chronic Other aftercare (12 sources) Long-term current use of insulin; 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: [penitentiary (current) use of insulin] 03-24-2024 Episodic Other [...] nevus; 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: [Nevus, non-neoplastic] 07-21-2024 Episodic Other circulatory disease (2 sources) Personal history of transient ischemic attack (TIA), and cerebral infarction without residual deficits; 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: [Personal history of transient ischemic attack (TIA), and cerebral infarction without residual deficits] Onset: 01-19-2025 Episodic Other connective tissue disease (20 sources) Cramp in lower limb; 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: [Sleep [...] palsy 05-09-2018 Episodic Other non-traumatic joint disorders (19 sources) Charcot's joint of foot; 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: [Charcot's joint, left ankle and foot] Onset: 08-05-2024 08-05-2024 Chronic Other non-traumatic joint disorders (2 sources) Pain in elbow; 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: [Pain in left elbow] 10-20-2024 Episodic Other nutritional; endocrine; and metabolic disorders (15 sources) Hypomagnesemia; 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: [Hypomagnesemia] Onset: 08-07-2024 08-07-2024 [...] subcutaneous tissue] 07-19-2023 Episodic Other skin disorders (4 sources) Dystrophia unguium; 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: [Nail dystrophy] 03-24-2024 [...] Classification Problem Date Documented Da te Episodic/Chronic Calculus of urinary tract (20 sources) Kidney stone; 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: [Calculus of kidney] Onset: 12-20-2021 Episodic Cancer of prostate (20 sources) Malignant neoplasm [...] unspecified] Onset: 05-04-2020 12-25-2022 Episodic Mood disorders (19 sources) Mood disorders Onset: 08-05-2024 08-05-2024 Other aftercare (1 source) Other intermediate card tender (current) drug therapy; 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: [OTH CORRECTION CURRENT DRUG THERAPY] Onset: 01-19-2022 Episodic Other aftercare (1 source) salvage determiner (current) use of insulin; 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: [CORRECTION CURRENT USE OF INSULIN] Onset: 01-19-2022 Episodic Other aftercare (20 sources) Long-term current use of drug therapy; 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: [Other care home (current) drug therapy] Onset: 01-24-2024 01-24-2024 Episodic Other and unspecified benign neoplasm (20 sources) Nevus of left iris; 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] Onset: 06-18-2018 Episodic Other connective tissue disease (20 sources) Tear of right rotator cuff; 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: [Unspecified rotator cuff tear or rupture of right shoulder, not specified as traumatic] Onset: 12-25-2022 12-25-2022 Episodic Other inflammatory condition of skin (20 sources) Pruritus, unspecified; 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: [Unspecified pruritic disorder] Onset: 08-05-2024 08-05-2024 Episodic Other upper respiratory infections (20 sources) Acute maxillary sinusitis; 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: [Acute maxillary sinusitis, unspecified] Onset: 06-20-2024 Resolved: 08-05-2024 06-20-2024 Episodic Results Test Name Value Interpretation Reference Range Facility Office Visiton 01-19-2025 Follow-up visit [id number] Zach Chamorro 1945 M Date Provider Department Center 01/19/2025 CASSANDRA RAYO BRANDON [facility] Family History Problem Relation Age of Onset Stroke Mother Family Status - Relation Status Age at Mother Father Level of Service:62470 [place] OFFICE/OUTPATIENT [facility] 60 MINUTES Normal [facility] Orders Onlyon 01-14-2025 Orders Only [id number] Zach Chamorro 1945 M Date Provider Department Center 01/14/2025 [id number], HISTORICAL CARD [facility] No family history on file Normal [facility] NM CARMEN PERF SPECT REST STRon 01-12-2025 [facility] [address] [place] [address] Nuclear Medicine Report Signed Patient: ZACH CHAMORRO MR#: [id number] : 1945 Acct:[id number] Age/Sex: 79 / M ADM Date: 01/09/25 Loc: [place] Attending Dr: Blake Ng M.D. Ordering Physician: Blake Ng M.D. Date of Service: 01/09/25 Procedure(s): NM carmen perf SPECT rest str Accession Number(s): [id number] cc: Blake Ng M.D. Patient Name: ZACH CHAMORRO MR#: [id number] : 1945 Exam Date: 01/09/2025 Ordering Doctor: DR BLAKE NG . RADIOLOGY REPORT PROCEDURE: NM CARMEN PERF SPECT REST STR COMPARISON: None. INDICATIONS: CHEST PAIN, EKG CHANGES TECHNIQUE: Exam Description: Stress/Rest one day protocol gated SPECT Rest Imagin.9 mCi Tc-99m Cardiolite IV on 01/09/2025 Stress Imaging 29.7 mCi Tc-99m Cardiolite IV on 01/09/2025 Exercise Protocol: 0.4 mg Lexiscan given IV Heart Rate (bpm): Rest: 79 Max: 94 PMHR: 66 Blood Pressure: Rest: 144/80 Max: 144/80 Symptoms: Rest and peak stress ECG findings were pending and the EKG portion of the study was pending per attending physician [facility] . For more details please see separate cardiac stress test report. FINDINGS: QUALITY OF STUDY: Good PERFUSION DEFECT: LOCATION: Inferolateral SIZE: Medium SEVERITY: Mild TYPE: Fixed with adequate contractility and thickening consistent with diaphragmatic attenuation WALL MOTION: Normal LV SIZE: 94 mL. TID / TCD: 1.0 LVEF: Calculated EF 61%. SUMMARY: Normal myocardial perfusion imaging study CONCLUSION: Negative myocardial perfusion nuclear stress test without evidence of ischemia or infarction Normal left ventricular systolic function, ejection fraction 61% No transient ischemic dilatation, TID 1.0 EKG portion of stress test is reported separately Dictated by: Bree Sierra MD on 01/12/2025 at 12:29 Approved by: Bree Sierra MD on 01/12/2025 at 12:33 Dictated By: Bree Sierra M.D. Signed By: 01/12/25 1234 DD/ 1233 TD/TT: Meat Dresser: [facility] Radiology, Radiologist, - 01/12/2025 [place] [address] Nuclear Medicine Report Signed Patient: ZACH CHAMORRO MR#: [id number] : 1945 Acct:[id number] Age/Sex: 79 / M ADM Date: 01/09/25 Loc: NM Attending Dr: Blake Ng M.D. Ordering Physician: Blake Ng M.D. Date of Service: 01/09/25 Procedure(s): NM carmen perf SPECT rest str Accession Number(s): [id number] cc: Blake Ng M.D. Patient Name: ZACH CHAMORRO MR#: [id number] : 1945 Exam Date: 01/09/2025 Ordering Doctor: DR BLAKE Guaman RADIOLOGY REPORT PROCEDURE: NM CARMEN PERF SPECT REST STR COMPARISON: None. INDICATIONS: CHEST PAIN, EKG CHANGES TECHNIQUE: Exam Description: Stress/Rest one day protocol gated SPECT Rest Imagin.9 mCi Tc-99m Cardiolite IV on 01/09/2025 Stress Imaging 29.7 mCi Tc-99m Cardiolite IV on 01/09/2025 Exercise Protocol: 0.4 mg Lexiscan given IV Heart Rate (bpm): Rest: 79 Max: 94 PMHR: 66 Blood Pressure: Rest: 144/80 Max: 144/80 Symptoms: Rest and peak stress ECG findings were pending and the EKG portion of the study was pending per attending physician [facility] . For more details please see separate cardiac stress test report. FINDINGS: QUALITY OF STUDY: Good PERFUSION DEFECT: LOCATION: Inferolateral SIZE: Medium SEVERITY: Mild TYPE: Fixed with adequate contractility and thickening consistent with diaphragmatic attenuation WALL MOTION: Normal LV SIZE: 94 mL. TID / TCD: 1.0 LVEF: Calculated EF 61%. SUMMARY: Normal myocardial perfusion imaging study CONCLUSION: Negative myocardial perfusion nuclear stress test without evidence of ischemia or infarction Normal left ventricular systolic function, ejection fraction 61% No transient ischemic dilatation, TID 1.0 EKG portion of stress test is reported separately Dictated by: Bree Sierra MD on 01/12/2025 at 12:29 Approved by: Bree Sierra MD on 01/12/2025 at 12:33 Dictated By: Bree Sierra M.D. Signed By: 01/12/25 1234 DD/ 1233 TD/TT: Meat Dresser: [facility] Radiology Study observation (narrative) [facility] NM CARMEN PERF SPECT REST STROr dered By: Radiologist Radiology on 01-12-2025 [facility] Work Phone: Urine Cytology ([facility])on 0 01-06-2025 Urine Cytology Diagnosis Info Invalid Interpretation Code [facility] Comment on above: Result Comment: A:Ur ine,Urine:Voided Interpretation - Adequate cellularity for evaluation. CPT 66925 MicroScopic Description - Adequacy - Gross Description Site ID:A color Yellow fixative Alcohol Specimen designated Urine received in alcohol preservative and labeled with the patient???s name, consists of 80ml clear yellow fluid. Electronically signed by : on: 01/06/2025 08:34:52 Performed By: #### 1 [id number] #### [facility] [address] [place] [address] ECG 12-LEADon 12-31-[address] [address] Electrocardiograph Report Signed Patient: ZACH CHAMORRO MR#: [id number] : 1945 Acct:[id number] Age/Sex: 79 / M ADM Date: 12/30/24 Loc: CT Attending Dr: Jermaine Jensen M.D. Ordering Physician: Jermaine Jensen M.D. 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 Measurements Intervals [place] Rate: 78 P: 26 CA: 188 QRS: -24 QRSD: 87 T: 91 QT: 359 QTc: 411 Interpretive Statements SINUS RHYTHM BORDERLINE LEFT AXIS DEVIATION [QRS AXIS < -20] NONSPECIFIC T-WAVE ABNORMALITY Compared to ECG 08/29/2017 10:21:07 T-wave abnormality now present Myocardial infarct finding no longer present Electronically Signed On 12-31-2024 7:01:15 EDT by CASSANDRA JOSE M.D. Dictated By: CASSANDRA JOSE Signed By: 12/31/24 0701 DD/ 0841 TD/TT: Meat Dresser: [facility] Radiology, Radiologist, MD - 12/31/2024 [place] [address] Electrocardiograph Report Signed Patient: ZACH CHAMORRO MR#: [id number] : 1945 Acct:[id number] Age/Sex: 79 / M ADM Date: 12/30/24 Loc: CT Attending Dr: Jermaine Jensen M.D. Ordering Physician: Jermaine Jensen M.D. 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 Measurements Intervals [place] Rate: 78 P: 26 CA: 188 QRS: -24 QRSD: 87 T: 91 QT: 359 QTc: 411 Interpretive Statements SINUS RHYTHM BORDERLINE LEFT AXIS DEVIATION [QRS AXIS < -20] NONSPECIFIC T-WAVE ABNORMALITY Compared to ECG 08/29/2017 10:21:07 T-wave abnormality now present Myocardial infarct finding no longer present Electronically Signed On 12-31-2024 7:01:15 EDT by CASSANDRA JOSE M.D. Dictated By: CASSANDRA JOSE Signed By: 12/31/24 0701 DD/ 0841 TD/TT: Meat Dresser: [facility] ECG 12-LEADOrdered By: Radio logist Radiology on 12-31-2024 [facility] Work Phone: ALL BASIC METABOLIC PANELon 12-30-2024 Anion gap [Moles/Vol] 12 mmol/L [facility] Calcium [Mass/Vol] 9.6 mg/dL 8.5 - 10. 1 mg/dL [facility] Chloride [Moles/Vol] 102 mmol/L 98 - 10 7 mmol/L [facility] CO2 [Moles/Vol] 30.3 mmol/L 21.0 - 32.0 mmol/L [facility] Creatinine [Mass/Vol] 0.73 mg/dL 0.70 - 1.30 mg/dL [facility] GFR/1.73 sq M.predicted CKD-EPI (S/P/Bld) [Vol rate/Area] >60 >=60 mL/min/1.73m 2 [facility] Glucose [Mass/Vol] 168 mg/dL High 74 - 106 mg/dL [facility] Interpretation and review of laboratory results Abnormal [facility] Potassium [Moles/Vol] 5.3 mmol/L High 3.5 - 5.1 mmol/L [facility] Sodium [Moles/Vol] 139 mmol/L 136 - 145 mmol/L [facility] TBH EGFR-NON AF TUVALUAN >60 >=60 mL/min/1.73m 2 [facility] Urea nitrogen [Mass/Vol] 20 mg/dL High 7.0 - 18.0 mg/dL [facility] Urea nitrogen/Creatinine [Mass ratio] 27.4 mg/mg [facility] CT ABDOMEN/PELVIS WO CONTo n 12-30-[address] [address] [address] Scan Report Signed Patient: ZACH CHAMORRO MR#: [id number] : 1945 Acct:[id number] Age/Sex: 79 / M ADM Date: 12/30/24 Loc: CT Attending Dr: Jermaine Jensen M.D. Ordering Physician: Jermaine Jensen M.D. Date of Service: 12/30/24 Procedure(s): CT abdomen pelvis wo con Accession Number(s): [id number] cc: Blake Ng M.D. [place] [id number] Patient Name: ZACH CHAMORRO MRN: [id number] date: 1945 Sex: M Assigned Patient Location: CT Current Patient Location: [facility] Accession/Order Number: [id number] Exam Date: 12/30/2024 11:04 Report Date: 12/30/2024 11:06 At the request of: JERMAINE JENSEN MD Procedure: CT abdomen pelvis wo [...] kidney. No obstructive uropathy. Impression dictated by: Rithcie Cabrera Jr., D.O. 12/30/2024 11:06 AM Dictation Location: [place] [address] Electronically authenticated by: [id number] Y Date: 12/30/2024 11:06 Dictated By: Ritchie Cabrera M.D. Signed By: 12/30/24 1108 DD/ 110 TD/TT: Meat Dresser: [facility] Radiology, Radiologist, MD - 12/30/2024 [place] [address] CT Scan Report Signed Patient: ZACH CHAMORRO MR#: [id number] : 1945 Acct:[id number] Age/Sex: 79 / M ADM Date: 12/30/24 Loc: CT Attending Dr: Jermaine Jensen M.D. Ordering Physician: Jermaine Jensen M.D. Date of Service: 12/30/24 Procedure(s): CT abdomen pelvis wo con Accession Number(s): [id number] cc: Blake Ng M.D. [place] [address] Patient Name: ZACH CHAMORRO MRN: [facility]:[id number] date: 1945 Sex: M Assigned Patient Location: CT Current Patient Location: [facility] Accession/Order Number: [id number] Exam Date: 12/30/2024 11:04 Report Date: 12/30/2024 11:06 At the request of: JERMAINE JENSEN MD Procedure: CT abdomen pelvis wo [...] Jr., DNunu 12/30/2024 11:06 AM Dictation Location: [place] [address] Electronically authenticated by: [id number] Y Date: 12/30/2024 11:06 Dictated By: Ritchie Cabrera M.D. Signed By: 12/30/24 1108 DD/ 1106 TD/TT: Meat Dresser: [facility] Radiology Study observation (narrative) [facility] CT ABDOMEN/PELVIS WO CONTO rdered By: Radiologist Radiology on 12-30-2024 [facility] Work Phone: ECG 12-LEADon 12-30-2024 Radiology Study observation (narrative) [facility] Ambulatory Visit Summaryon 0 [...] physician. Your Care Team Attending Physician - Jermaine JENSEN MD Primary Care Physician - BLAKE NG MD This Is Your Medications List dutasteride (dutasteride [...] Mullen When: Where: [facility] [address], [place] [address]- Medications What How Much When Instructions New [...] or concerns Pharmacy Information [facility]: [address] [phone] Allergies No Known Allergies Problems Ongoing - [...] (more content not included)... Normal [facility] Urine Cytology ([facility])on 0 12-29-2024 Method of Extraction Voided Normal [facility] Comment on above: Performed By: #### 1 [id number] #### [facility] [address] [place] [address] Number of Jars 1 Invalid Interpretation Code [facility] Comment on above: Performed By: #### 1 [id number] #### [facility] [address] [place] [address] Specimen Urine Normal [facility] Comment on above: Performed By: #### 1 [id number] #### [facility] [address] [place] [address] Type of Service Technical Only Normal [facility] Comment on above: Performed By: #### 1 [id number] #### [facility] [address] [place] [address] Urology Office/Clinic Noteon 12-29-2024 Urology Office/Clinic Note [...] 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 pt states that he has not seen any more blood denies pain/burning reports intermittent flank pain in the mornings after waking History of Present Illness Tests reviewed: UA, PSA, KUB I have reviewed the previous health record information and history for this patient from Dr. Jensen. I have reviewed and verified the staff [...] 0.27 MRI fusion prostate bx 06/2022 - [place] 7 (3+4) 3 cores, 12-25% involvement. Intermediate [...] proper use, contraindications, priapism discussed. Sent to [facility]. 5. Gross hematuria (R31.0: Gross hematuria) UA neg. Pt had an isolated episode of painless gross hematuria over the weekend after riding project specialist. Pt thought he might have passed a [...] (more content not included)... Normal [facility] Comment on above: Result Comment: Elec tronically Signed By: Jermaine JENSEN MD\.br\Date and Time Signed: 12/29/24 09:27 EDT\.br\Electronically Co-Signed By: Felecia Sharma\.br\Date and Time Co-Signed: 12/29/24 09:23 EDT X-ray reportOrdered By: Aiden Franklin on 12-24-2024 Study report [facility] [place] [address] [place] [address] XRay Report Signed Patient: Zach Chamorro MR#: [id number] : 1945 Acct:[id number] Age/Sex: 79 / M ADM Date: 5 Loc: XD Room: Type: REG CLI Attending Dr: Jermaine Jensen MD Copies to: Jermaine Jensen MD~ Ordering Provider: Jermaine Jensen MD Date of Service: 12/24/24 XR/XR KUB: [...] Franklin M.D. 12/24/2024 8:43 PM Dictation Location: [place] [address] Transcribed By: [facility] 12/24/242042 Dictated By: Aiden Franklin II, MD 12/24/242041 Signed By: 12/24/242042 [facility] Work Phone: XR KUBon 12-24-2024 XR KUB [facility] [place] [address] XRay Report Signed Patient: Zach Chamorro MR#: [id number] : 1945 Acct:[id number] Age/Sex: 79 / M ADM Date: 12/24/24 Loc: XD Room: Type: REG CLI Attending Dr: Jermaine Jensen MD Copies to: Jermaine Jensen MD Ordering Provider: Jermaine Jensen MD Date of Service: 12/24/24 XR/XR KUB: [...] Franklin M.D. 12/24/2024 8:43 PM Dictation Location: [place] [address] Transcribed By: JUAN 12/24/242042 Dictated By: Aiden Franklin II, MD 12/24/242041 Signed By: 12/24/242042 Normal [facility] PSA Total (Not a Screen)on 0 10-28-2024 PSA Total (Not a Screen) 0.270 ng/mL Normal 0.000-4.000 [facility] Comment on above: Result Comment: Poly prather tumor marker results determined by assays using different manufacturers or methods may not be comparable. [facility] director case management and method: TONA UNICEL DXI, CHEMILUMINESCENT IMMUNOASSAY. PERFORMED BY: [place] [address] PATHOLOGIST PATIENT CARE REPRESENTATIVE DELFINO MEJÍA M.D. Performed By: #### B MP, HEPATIC, A1C WTH eA, CBC, LIPID #### [address] XR Elbow - left 3 [facility] Result: Four views of the left elbow, AP/lateral/oblique/ra diocapitellar, taken today and saved to the permanent medical record. No acute osseous abnormalities, no fat pad sign. Joint spaces are preserved. Tiny osteophyte at the tip of the olecranon. [facility] Radiology Study observation (narrative) [facility] Hemoglobin a1c with eagon Glucose [Mass/Vol] 166 mg/dL [facility] HbA1c (Bld) [Mass fraction] 7.4 % High 4.3 - 5.6 % [facility] Comment on above: Increased risk for d iabetes: 5.7 - 6.4 diabetes: >6.4 glycemic control for adults with diabetes: <7.0 Interpretation and review of laboratory results Abnormal [facility] A1C with Estimated Average G lanie 08-06-2024 Glucose [Mass/Vol] 166 mg/dL Normal [facility] Comment on above: Result Comment: PERF ORMED BY: [place] [address] PATHOLOGIST PATIENT CARE REPRESENTATIVE DELFINO MEJÍA M.D. Performed By: #### A 1C WTH eA, MG, BMP #### [address] HbA1c (Bld) [Mass fraction] 7.4 % High 4.3-5.6 [facility] Comment on above: Result Comment: Incr eased risk for diabetes: 5.7 - 6.4 diabetes: >6.4 glycemic control for adults with diabetes: <7.0 Performed By: #### A 1C WTH eA, MG, BMP #### [address] Basic Metabolic Panelon 07-13 Anion gap [Moles/Vol] 12.5 mmol/L Normal 6.0-15.0 [facility] Comment on above: Performed By: #### A 1C WTH eA, MG, BMP #### [place] [address] [place] Calcium [Mass/Vol] 9.5 mg/dL Normal 8.6-10.3 [facility] Comment on above: Performed By: #### A 1C WTH eA, MG, BMP #### [place] [address] [place] Chloride [Moles/Vol] 100 mmol/L Normal 98-107 [facility] Comment on above: Performed By: #### A 1C WTH eA, MG, BMP #### [place] [address] [place] CO2 [Moles/Vol] 28.2 mmol/L Normal 21.0-31.0 [facility] Comment on above: Performed By: #### A 1C WTH eA, MG, BMP #### [address] Creatinine [Mass/Vol] 0.77 mg/dL Normal 0.70-1.30 [facility] Comment on above: Performed By: #### A 1C WTH eA, MG, BMP #### [place] [address] [place] GFR/1.73 sq M.predicted MDRD (S/P/Bld) [Vol rate/Area] mL/min/{1.73_m2} Normal [facility] Comment on above: Performed By: #### A 1C WTH eA, MG, BMP #### [address] Glucose [Mass/Vol] 189 mg/dL High 70-100 [facility] Comment on above: Result Comment: [place] Glucose Reference Range is dependent on time and content of last meal. Glucose of more than 200 mg/dL in a nonstressed, ambulatory subject supports the diagnosis of Diabetes Mellitus. ADA recommended reference range Performed By: #### A 1C WTH eA, MG, BMP #### [address] Potassium [Moles/Vol] 4.7 mmol/L Normal 3.5-5.1 [facility] Comment on above: Performed By: #### A 1C WTH eA, MG, BMP #### [address] Sodium [Moles/Vol] 136 mmol/L Normal 136-145 [facility] Comment on above: Performed By: #### A 1C WTH eA, MG, BMP #### [address] Urea nitrogen [Mass/Vol] 16 mg/dL Normal 7-25 [facility] Comment on above: Performed By: #### A 1C WTH eA, MG, BMP #### [address] Basic metabolic 1998 panelon 08-06-2024 Anion gap [Moles/Vol] 12.5 mmol/L 6.0 - 15.0 meq/L [facility] Calcium [Mass/Vol] 9.5 mg/dL 8.6 - 10. 3 mg/dL [facility] Chloride [Moles/Vol] 100 mmol/L 98 - 10 7 mmol/L [facility] CO2 [Moles/Vol] 28.2 mmol/L 21.0 - 31.0 mmol/L [facility] Creatinine (U) [Mass/Vol] 0.77 mg/dL 0.70 - 1.30 mg/dL [facility] ESTIMATED GFR mL/Min [facility] Glucose [Mass/Vol] 189 mg/dL High 70 - 100 mg/dL [facility] Comment on above: Random Glucose Refer ence Range is dependent on time and content of last meal. Glucose of more than 200 mg/dL in a nonstressed, ambulatory subject supports the diagnosis of Diabetes Mellitus. ADA recommended reference range Potassium [Moles/Vol] 4.7 mmol/L 3.5 - 5.1 mmol/L [facility] Sodium [Moles/Vol] 136 mmol/L 136 - 145 mmol/L [facility] Urea nitrogen [Mass/Vol] 16 mg/dL 7 - 25 mg/dL [facility] Calcium [Mass/volume] in Ser um or PlasmaOrdered By: Blake Ng on 08-06-2024 Calcium [Mass/Vol] Calcium [Mass/volume ] in Serum or Plasma 8.6-10.3 [facility] Carbon dioxide, total [Moles /volume] in Serum or PlasmaOrdered By: Blake Ng on 08-06-2024 CO2 [Moles/Vol] Carbon dioxide, tota l [Moles/volume] in Serum or Plasma 21.0-31.0 [facility] Chloride [Moles/volume] in S luke or PlasmaOrdered By: Blake Ng on 08-06-2024 Chloride [Moles/Vol] Chloride [Moles/volume] in Serum or Plasma 98-107 [facility] Creatinine [Mass/volume] in Serum or PlasmaOrdered By: Blake Ng on 08-06-2024 Creatinine [Mass/Vol] Creatinine [Mass/volume] in Serum or Plasma 0.70-1.30 [facility] Creatinine [Mass/volume] in UrineOrdered By: Blake Ng on 08-06-2024 Creatinine (U) [Mass/Vol] Creatinine [Mass/volume] in Urine [facility] Comment on above: No reference range e stablished Glucose [Mass/volume] in Ser um or PlasmaOrdered By: Blake Ng on 08-06-2024 Glucose [Mass/Vol] Glucose [Mass/volume ] in Serum or Plasma High 70-100 [facility] Comment on above: ADA recommended refe rence rangeRandom Glucose Reference Range is dependent on time and content of last meal. Glucose of more than 200 mg/dL in a nonstressed, ambulatory subject supports the diagnosis of Diabetes Mellitus. Magnesiumon 08-06-2024 Magnesium [Mass/Vol] 1.5 mg/dL Low 1.9 - 2 .7 mg/dL [facility] Magnesium [Mass/Vol] 1.5 mg/dL Low 1.9-2.7 [facility] Comment on above: Result Comment: PERF ORMED BY: [place] [address] PATHOLOGIST PATIENT CARE REPRESENTATIVE DELFINO MEJÍA M.D. Performed By: #### A 1C [facility] eA, MG, BMP #### [facility] [address] Magnesium [Mass/volume] in S luke or PlasmaOrdered By: Blake Ng on 08-06-2024 Magnesium [Mass/Vol] Magnesium [Mass/volume] in Serum or Plasma Low 1.9-2.7 [facility] MicroAlb Creat Ratio,Uon Albumin DL <= 20 mg/L (U) [Mass/Vol] 7.1 mg/dL High 0.0-1.8 [facility] Comment on above: Performed By: #### B MP, HEPATIC, A1C WTH eA, CBC, LIPID #### [facility] [address] Creatinine, Urine (Random) 81.00 mg/dL Normal [facility] Comment on above: Result Comment: No r eference range established Performed By: #### B MP, HEPATIC, A1C WTH eA, CBC, LIPID #### [facility] [address] Microalbumin/Creatinine Ratio 87.7 mg/g High 0.0-30.0 [facility] Comment on above: Result Comment: 30-3 00 mg/g indicates an increased risk for diabetic nephropathy. Greater than 300 mg/g is consistent with clinical nephropathy. (Am. J. Kidney Disease 1994, 25:107) PERFORMED BY: [facility] [address] [place] [address] PATHOLOGIST PATIENT CARE REPRESENTATIVE DELFINO MEJÍA M.D. Performed By: #### B MP, HEPATIC, A1C WTH eA, CBC, LIPID #### [facility] [address] Microalbumin [Mass/volume] i n UrineOrdered By: Blake Ng on 08-06-2024 Albumin DL <= 20 mg/L (U) [Mass/Vol] Microalbumin [Mass/volume] in Urine High 0.0-1.8 [facility] Microalbumin/Creatinine rati o panel (U)on 08-06-2024 Albumin [Mass/Vol] 7.1 mg/dL High 0.0 - 1.8 mg/dL [facility] Creatinine spec 2 (U) [Mass/Vol] 81 mg/dL [facility] Comment on above: No reference range e stablished Interpretation and review of laboratory results Abnormal [facility] MICROALBUMIN/CREATININE RATIO 87.7 mg/g High 0.0 - 30.0 mg/g [facility] Comment on above: 30-300 mg/g indicate s an increased risk for diabetic nephropathy. Greater than 300 mg/g is consistent with clinical nephropathy. (Am. J. Kidney Disease 1994, 25:107) [facility] No Panel Informationon 08-06 Interpretation and review of laboratory results Abnormal [facility] No Panel InformationOrdered By: Blake Ng on 08-06-2024 Estimated GFR (CKD-EPI) > 60.0 mL/Min [facility] Creatinine Clearance (Chem N/A [facility] Potassium [Moles/volume] in Serum or PlasmaOrdered By: Blake Ng on 08-06-2024 Potassium [Moles/Vol] Potassium [Moles/volume] in Serum or Plasma 3.5-5.1 [facility] Serum or plasma anion gap de terminationOrdered By: Blake Ng on 08-06-2024 Anion gap [Moles/Vol] Serum or plasma an ion gap determination 6.0-15.0 [facility] Sodium [Moles/volume] in Ser um or PlasmaOrdered By: Blake Ng on 08-06-2024 Sodium [Moles/Vol] Sodium [Moles/volume ] in Serum or Plasma 136-145 [facility] Urea nitrogen [Mass/volume] in Serum or PlasmaOrdered By: Blake Ng on 08-06-2024 Urea nitrogen [Mass/Vol] Urea nitrogen [Mass/volume] in Serum or Plasma 7-25 [facility] Urine microalbumin/creatinin e mass ratioOrdered By: lBake Ng on 08-06-2024 Albumin/Creatinine DL <= 20 mg/L (U) [Mass ratio] Urine microalbumin/creatini ne mass ratio High 0.0-30.0 [facility] Comment on above: 30-300 mg/g indicate s an increased risk for diabetic nephropathy. Greater than 300 mg/g is consistent with clinical nephropathy. (Am. J. Kidney Disease 1995, 25:107) No Panel Informationon 07-21 [facility] XR Foot - left 3 [facility] Result: 3 views left foot: Weight-bearing: DP, oblique, lateral: 05/15/2024: There are no distinct or interval changes from most recent views of 04/14/2024. Again unremarkable for acute osseous or joint pathology. Unremarkable for any acute fragmentation or medial column collapse. 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 [facility] Radiology Study observation (narrative) [facility] PSA Total (Not a Screen)on 06-30-2023 PSA Total (Not a Screen) 0.400 ng/mL Normal 0.000-4.000 [facility] Comment on above: Result Comment: Poly prather tumor marker results determined by assays using different manufacturers or methods may not be comparable. [facility] director case management and method: turboBOTZ DXI, CHEMILUMINESCENT IMMUNOASSAY. PERFORMED BY: [place] [address] PATHOLOGIST PATIENT CARE REPRESENTATIVE DELFINO MEJÍA M.D. Performed By: #### P SATOTAL #### [address] XR Foot - left 3 Viewson [...] Mild loss of the medial column contour. [facility] Radiology Study observation (narrative) [facility] A1C with Estimated Average G luon 01-25-2024 Glucose [Mass/Vol] 140 mg/dL Normal [facility] Comment on above: Result Comment: PERF ORMED BY: [place] [address] PATHOLOGIST PATIENT CARE REPRESENTATIVE JUDY GARCIA M.D. Performed By: #### B MP, HEPATIC, A1C WTH eA, CBC, LIPID #### [address] Alanine aminotransferase [En zymatic activity/volume] in Serum or PlasmaOrdered By: Blake Ng on 01-25-2024 ALT [Catalytic activity/Vol] 20 U/L Normal 7-52 [facility] Comment on above: Performed By: #### B MP, HEPATIC, A1C WTH eA, CBC, LIPID #### [facility] [address] [place] [address] [place] Albumin [Mass/volume] in Ser um or Plasma by Bromocresol green (BCG) dye binding methoOrdered By: Blake Ng on 01-25-2024 Albumin BCG dye [Mass/Vol] 4.4 g/dL 3.5-5.7 [facility] Alkaline phosphatase [Enzyma tic activity/volume] in Serum or PlasmaOrdered By: Blake Ng on 01-25-2024 ALP [Catalytic activity/Vol] 70 U/L Normal 34-104 [facility] Comment on above: Performed By: #### B MP, HEPATIC, A1C WTH eA, CBC, LIPID #### [facility] [address] Aspartate aminotransferase [ Enzymatic activity/volume] in Serum or PlasmaOrdered By: Blake Ng on 01-25-2024 AST [Catalytic activity/Vol] 19 U/L Normal 13-39 [facility] Comment on above: Performed By: #### B MP, HEPATIC, A1C WTH eA, CBC, LIPID #### [facility] [address] Automated basophil %Ordered By: Blake Ng on 01-25-2024 Basophils/100 WBC (Bld) 0.5 % Normal . [facility] Comment on above: Performed By: #### B MP, HEPATIC, A1C WTH eA, CBC, LIPID #### [facility] [address] Automated basophil countOrde red By: Blake Ng on 01-25-2024 Basophils (Bld) [#/Vol] 0.0 10*3/uL Normal 0.0-0.2 [facility] Comment on above: Result Comment: PERF ORMED BY: [place] [address] PATHOLOGIST PATIENT CARE REPRESENTATIVE JUDY GARCIA M.D. Performed By: #### B MP, HEPATIC, A1C WTH eA, CBC, LIPID #### [facility] [address] Automated blood monocyte cou ntOrdered By: Blake Ng on 01-25-2024 Monocytes (Bld) [#/Vol] 0.3 10*3/uL Normal 0.0-0.8 [facility] Comment on above: Performed By: #### B MP, HEPATIC, A1C WTH eA, CBC, LIPID #### [facility] [address] [place] [address] [place] Automated eosinophil %Ordere d By: Blake Ng on 01-25-2024 Eosinophils/100 WBC (Bld) 5.1 % Normal . [facility] Comment on above: Performed By: #### B MP, HEPATIC, A1C WTH eA, CBC, LIPID #### [facility] [address] Automated eosinophil countOr dered By: Blake Ng on 01-25-2024 Eosinophils (Bld) [#/Vol] 0.3 10*3/uL Normal 0.0-0.45 [facility] Comment on above: Performed By: #### B MP, HEPATIC, A1C WTH eA, CBC, LIPID #### [facility] [address] Automated monocyte %Ordered By: Blake Ng on 01-25-2024 Monocytes/100 WBC (Bld) 5.0 % Normal . [facility] Comment on above: Performed By: #### B MP, HEPATIC, A1C WTH eA, CBC, LIPID #### [facility] [address] Automated neutrophil %Ordere d By: Blake Ng on 01-25-2024 Neutrophils/100 WBC (Bld) 72.3 % Normal . [facility] Comment on above: Performed By: #### B MP, HEPATIC, A1C WTH eA, CBC, LIPID #### [facility] [address] Basic Metabolic Panelon 01-09 GFR/1.73 sq M.predicted MDRD (S/P/Bld) [Vol rate/Area] mL/min/{1.73_m2} Normal [facility] Comment on above: Performed By: #### B MP, HEPATIC, A1C WTH eA, CBC, LIPID #### [facility] [address] Bilirubin.direct [Mass/volum e] in Serum or PlasmaOrdered By: Blake Ng on 01-25-2024 Bilirubin.direct [Mass/Vol] 0.10 mg/dL 0.03-0.18 [facility] Bilirubin.total [Mass/volume ] in Serum or PlasmaOrdered By: Blake Ng on 01-25-2024 Bilirubin [Mass/Vol] 0.7 mg/dL Normal 0.3-1.0 [facility] Comment on above: Performed By: #### B MP, HEPATIC, A1C WTH eA, CBC, LIPID #### [facility] [address] [place] [address] [place] Calcium [Mass/volume] in Ser um or PlasmaOrdered By: Blake Ng on 01-25-2024 Calcium [Mass/Vol] 9.2 mg/dL Normal 8.6-10.3 [facility] Comment on above: Performed By: #### B MP, HEPATIC, A1C WTH eA, CBC, LIPID #### [facility] [address] [place] [address] [place] Carbon dioxide, total [Moles /volume] in Serum or PlasmaOrdered By: Blake Ng on 01-25-2024 CO2 [Moles/Vol] 24.4 mmol/L Normal 21.0-31.0 [facility] Comment on above: Performed By: #### B MP, HEPATIC, A1C WTH eA, CBC, LIPID #### [facility] [address] [place] [address] [place] Chloride [Moles/volume] in S luke or PlasmaOrdered By: Blake Ng on 01-25-2024 Chloride [Moles/Vol] 105 mmol/L Normal 98-107 [facility] Comment on above: Performed By: #### B MP, HEPATIC, A1C WTH eA, CBC, LIPID #### [facility] [address] [place] [address] [place] Cholesterol [Mass/volume] in Serum or PlasmaOrdered By: Blake Ng on 01-25-2024 Cholesterol [Mass/Vol] 136 mg/dL Low 140-200 [facility] Comment on above: Chol less than 200 m g/dl low riskChol 201-239 mg/dl borderline riskChol 240 mg/dl and greater high risk Result Comment: Chol less than 200 mg/dl low risk Chol 201-239 mg/dl borderline risk Chol 240 mg/dl and greater high risk Performed By: #### B MP, HEPATIC, A1C WTH eA, CBC, LIPID #### [facility] [address] Cholesterol in LDL Calc [Mas s/Vol]Ordered By: Blake Ng on 01-25-2024 Cholesterol in LDL [Mass/Vol] 63 mg/dL 0-100 [facility] Comment on above: LDL ATP III CLASSIFI CATIONLDL less than 100 mg/dL OptimalLDL 100-129 mg/dL Near or above optimalLDL 130-159 mg/dL Borderline highLDL 160-189 mg/dL HighLDL greater than 189 mg/dL Very high Cholesterol in VLDL Calc [Ma ss/Vol]Ordered By: Blake Ng on 01-25-2024 Cholesterol in VLDL [Mass/Vol] 40 mg/dL [facility] Complete Blood Count Auto Di ffon 01-25-2024 Mean Corpuscular HGB Conc 35.0 g/dL Normal 32.5-35.6 [facility] Comment on above: Performed By: #### B MP, HEPATIC, A1C WTH eA, CBC, LIPID #### [facility] [address] NRBC% 0.1 /100{WBC} Normal 0-0.5 [facility] Comment on above: Performed By: #### B MP, HEPATIC, A1C WTH eA, CBC, LIPID #### [facility] [address] Creatinine [Mass/volume] in Serum or PlasmaOrdered By: Blake Ng on 01-25-2024 Creatinine [Mass/Vol] 1.02 mg/dL Normal 0.70-1.30 [facility] Comment on above: Performed By: #### B MP, HEPATIC, A1C WTH eA, CBC, LIPID #### [facility] [address] Erythrocyte distribution wid th [Ratio] by Automated countOrdered By: Blake Ng on 01-25-2024 Erythrocyte distribution width (RBC) [Ratio] 14.3 % Normal 12.0-14.8 [facility] Comment on above: Performed By: #### B MP, HEPATIC, A1C WTH eA, CBC, LIPID #### [facility] [address] [address] Erythrocytes [#/volume] in B lood by Automated countOrdered By: Blake Ng on 01-25-2024 RBC (Bld) [#/Vol] 3.58 10*6/uL Low 3.90-5.60 [facility] Comment on above: Performed By: #### B MP, HEPATIC, A1C WTH eA, CBC, LIPID #### [facility] [address] Glucose [Mass/volume] in Ser um or PlasmaOrdered By: Blake Ng on 01-25-2024 Glucose [Mass/Vol] 126 mg/dL High 70-100 [facility] Comment on above: ADA recommended refe rence rangeRandom Glucose Reference Range is dependent on time and content of last meal. Glucose of more than 200 mg/dL in a nonstressed, ambulatory subject supports the diagnosis of Diabetes Mellitus. Result Comment: [place] om Glucose Reference Range is dependent on time and content of last meal. Glucose of more than 200 mg/dL in a nonstressed, ambulatory subject supports the diagnosis of Diabetes Mellitus. ADA recommended reference range Performed By: #### B MP, HEPATIC, A1C WTH eA, CBC, LIPID #### [address] Glucose mean value [Mass/vol ume] in Blood Estimated from glycated hemoglobinOrdered By: Blake Ng on 01-25-2024 Average glucose Estimated from glycated hemoglobin (Bld) [Mass/Vol] 140 mg/dL [facility] Hematocrit [Volume Fraction] of Blood by Automated countOrdered By: Blake Ng on 01-25-2024 Hematocrit (Bld) [Volume fraction] 34.0 % Low 38.8-50.0 [facility] Comment on above: Performed By: #### B MP, HEPATIC, A1C WTH eA, CBC, LIPID #### [address] Hemoglobin A1c percentageOrd ered By: Blake Ng on 01-25-2024 HbA1c (Bld) [Mass fraction] 6.5 % High 4.3-5.6 [facility] Comment on above: Increased risk for d iabetes: 5.7 - 6.4diabetes: >6.4glycemic control for adults with diabetes: <7.0 Result Comment: Incr eased risk for diabetes: 5.7 - 6.4 diabetes: >6.4 glycemic control for adults with diabetes: <7.0 Performed By: #### B MP, HEPATIC, A1C WTH eA, CBC, LIPID #### [facility] [address] Hemoglobin [Mass/volume] in BloodOrdered By: Blake Ng on 01-25-2024 Hemoglobin (Bld) [Mass/Vol] 11.9 g/dL Low 13.0-17.0 [facility] Comment on above: Performed By: #### B MP, HEPATIC, A1C WTH eA, CBC, LIPID #### [facility] [address] Hepatic Panelon 01-25-2024 Albumin [Mass/Vol] 4.4 g/dL Normal 3.5-5.7 [facility] Comment on above: Performed By: #### B MP, HEPATIC, A1C WTH eA, CBC, LIPID #### [facility] [address] Bilirubin,Indirect 0.6 mg/dL Normal [facility] Comment on above: Performed By: #### B MP, HEPATIC, A1C WTH eA, CBC, LIPID #### [facility] [address] Bilirubin.indirect [Mass/Vol] 0.10 mg/dL Normal 0.03-0.18 [facility] Comment on above: Performed By: #### B MP, HEPATIC, A1C WTH eA, CBC, LIPID #### [facility] [address] Leukocytes [#/volume] correc sonia for nucleated erythrocytes in Blood by Automated counOrdered By: Blake Ng on 01-25-2024 WBC corrected for nucl RBC Auto (Bld) [#/Vol] 5.6 10*3/uL 4.1-10.5 [facility] Leukocytes [#/volume] in Blo od by Automated countOrdered By: Blake Ng on 01-25-2024 WBC (Bld) [#/Vol] 5.6 10*3/uL Normal 4.1-10.5 [facility] Comment on above: Performed By: #### B MP, HEPATIC, A1C WTH eA, CBC, LIPID #### [facility] [address] Lipid Panelon 01-25-2024 LDL Cholesterol,Calculated 63 mg/dL Normal 0-100 [facility] Comment on above: Result Comment: LDL ATP III CLASSIFICATION LDL less than 100 mg/dL Optimal LDL 100-129 mg/dL Near or above optimal LDL 130-159 mg/dL Borderline high LDL 160-189 mg/dL High LDL greater than 189 mg/dL Very high Performed By: #### B MP, HEPATIC, A1C WTH eA, CBC, LIPID #### [facility] [address] Triglyceride w/Reflex 200 mg/dL High 0-149 [facility] Comment on above: Result Comment: TRIG ATP III CLASSIFICATION TRIG less than 150 mg/dL Normal TRIG 150-199 mg/dL Borderline high TRIG 200-500 mg/dL High TRIG greater than 500 mg/dL Very high Standard traceable to the Center for Disease Conrtrol and Prevention (CDC) test method. Performed By: #### B MP, HEPATIC, A1C WTH eA, CBC, LIPID #### [facility] [address] VLDL CHOLESTEROL 40 mg/dL Normal [facility] Comment on above: Performed By: #### B MP, HEPATIC, A1C WTH eA, CBC, LIPID #### [facility] [address] [place] [address] [place] Lymphocytes [#/volume] in Bl ood by Automated countOrdered By: Blake Ng on 01-25-2024 Lymphocytes (Bld) [#/Vol] 1.0 10*3/uL Normal 1.00-4.8 [facility] Comment on above: Performed By: #### B MP, HEPATIC, A1C WTH eA, CBC, LIPID #### [facility] [address] [place] [id number] [place] Lymphocytes/100 leukocytes i n Blood by Automated countOrdered By: Blake Ng on 01-25-2024 Lymphocytes/100 WBC (Bld) 17.1 % Normal . [facility] Comment on above: Performed By: #### B MP, HEPATIC, A1C WTH eA, CBC, LIPID #### [facility] [address] MCH [Entitic mass] by Automa sonia countOrdered By: Blake Ng on 01-25-2024 MCH (RBC) [Entitic mass] 33.3 pg Normal 27.5-35.2 [facility] Comment on above: Performed By: #### B MP, HEPATIC, A1C WTH eA, CBC, LIPID #### [facility] [address] [place] [address] MCHC Auto (RBC) [Mass/Vol]Or dered By: Blake Ng on 01-25-2024 MCHC (RBC) [Mass/Vol] 35.0 g/dL 32.5-35.6 [facility] MCV [Entitic volume] by Auto mated countOrdered By: Blake gN on 01-25-2024 MCV (RBC) [Entitic vol] 95.1 fL Normal 83.5-101 [facility] Comment on above: Performed By: #### B MP, HEPATIC, A1C WTH eA, CBC, LIPID #### [facility] [address] [place] [address] Neutrophils [#/volume] in Bl ood by Automated countOrdered By: Blake Ng on 01-25-2024 Neutrophils (Bld) [#/Vol] 4.1 10*3/uL Normal 1.8-7.7 [facility] Comment on above: Performed By: #### B MP, HEPATIC, A1C WTH eA, CBC, LIPID #### [facility] [address] [place] [address] No Panel InformationOrdered By: Blake Ng on 01-25-2024 Estimated GFR (CKD-EPI) > 60.0 mL/Min [facility] Creatinine Clearance (Chem N/A [facility] Nucleated erythrocytes [Pres ence] in Blood by Automated countOrdered By: Blake Ng on 01-25-2024 Nucleated RBC Auto Ql (Bld) 0.1 /100{WBC} 0-0.5 [facility] Platelet mean volume [Entiti c volume] in Blood by Automated countOrdered By: Blake Ng on 01-25-2024 Platelet mean volume (Bld) [Entitic vol] 6.6 fL Normal 6.6-10.1 [facility] Comment on above: Performed By: #### B MP, HEPATIC, A1C WTH eA, CBC, LIPID #### [facility] [address] Platelets [#/volume] in Bloo d by Automated countOrdered By: Blake Ng on 01-25-2024 Platelets (Bld) [#/Vol] 139 10*3/uL Low 150-450 [facility] Comment on above: Performed By: #### B MP, HEPATIC, A1C WTH eA, CBC, LIPID #### [facility] [address] [place] [address] [place] Potassium [Moles/volume] in Serum or PlasmaOrdered By: Blake Ng on 01-25-2024 Potassium [Moles/Vol] 4.5 mmol/L Normal 3.5-5.1 [facility] Comment on above: Performed By: #### B MP, HEPATIC, A1C WTH eA, CBC, LIPID #### [facility] [address] [place] [address] [place] Protein [Mass/volume] in Ser um or PlasmaOrdered By: Blake Ng on 01-25-2024 Protein [Mass/Vol] 6.5 g/dL Normal 6.4-8.9 [facility] Comment on above: Performed By: #### B MP, HEPATIC, A1C WTH eA, CBC, LIPID #### [facility] [address] [place] [address] [place] Serum globulin measurement b y calculation (mass/volume)Ordered By: Blake Ng on 01-25-2024 Globulin (S) [Mass/Vol] 2.1 g/dL Normal [facility] Comment on above: Performed By: #### B MP, HEPATIC, A1C WTH eA, CBC, LIPID #### [facility] [address] Serum or plasma albumin/glob ulin mass ratioOrdered By: Blake Ng on 01-25-2024 Albumin/Globulin [Mass ratio] 2.1 {ratio} Normal [facility] Comment on above: Performed By: #### B MP, HEPATIC, A1C WTH eA, CBC, LIPID #### [facility] [address] Serum or plasma anion gap de terminationOrdered By: Blake Ng on 01-25-2024 Anion gap [Moles/Vol] 13.1 mmol/L Normal 6.0-15.0 [facility] Comment on above: Performed By: #### B MP, HEPATIC, A1C WTH eA, CBC, LIPID #### [facility] [address] [place] [address] Serum or plasma high density lipoprotein (HDL) cholesterol measurementOrdered By: Blake Ng on 01-25-2024 Cholesterol in HDL [Mass/Vol] 33 mg/dL Normal 23-92 [facility] Comment on above: HDL CHOL ATP-III CLA SSIFICATION Cardiovascular RiskHDL > or equal to 60 mg/dL LOWHDL < 40 mg/dL HIGH Result Comment: HDL CHOL ATP-III CLASSIFICATION Cardiovascular Risk HDL > or equal to 60 mg/dL LOW HDL < 40 mg/dL HIGH Performed By: #### B MP, HEPATIC, A1C WTH eA, CBC, LIPID #### [facility] [address] [place] [address] Serum or plasma non-glucuron idated bilirubin measurement (mass/volume)Ordered By: Blake Ng on 01-25-2024 Bilirubin.indirect [Mass/Vol] 0.6 mg/dL [facility] Serum or plasma total choles terol/high density lipoprotein (HDL) cholesterol mass ratOrdered By: Blake Ng on 01-25-2024 Cholesterol.total/Kassy sterol in HDL [Mass ratio] 4.1 {ratio} Normal <5.0 [facility] Comment on above: Result Comment: PERF ORMED BY: [place] [address] PATHOLOGIST PATIENT CARE REPRESENTATIVE JUDY GARCIA M.D. Performed By: #### B MP, HEPATIC, A1C WTH eA, CBC, LIPID #### [facility] [address] Sodium [Moles/volume] in Ser um or PlasmaOrdered By: Blake Ng on 01-25-2024 Sodium [Moles/Vol] 138 mmol/L Normal 136-145 [facility] Comment on above: Performed By: #### B MP, HEPATIC, A1C WTH eA, CBC, LIPID #### [facility] [address] Triglyceride [Mass/volume] i n Serum or PlasmaOrdered By: Blake Ng on 01-25-2024 Triglyceride [Mass/Vol] 200 mg/dL High 0-149 [facility] Comment on above: TRIG ATP III CLASSIF ICATIONTRIG less than 150 mg/dL NormalTRIG 150-199 mg/dL Borderline highTRIG 200-500 mg/dL High TRIG greater than 500 mg/dL Very highStandard traceable to the Center for Disease Conrtrol and Prevention (CDC) test method. Urea nitrogen [Mass/volume] in Serum or PlasmaOrdered By: Blake Ng on 01-25-2024 Urea nitrogen [Mass/Vol] 26 mg/dL High 7-25 [facility] Comment on above: Performed By: #### B MP, HEPATIC, A1C WTH eA, CBC, LIPID #### [facility] [address] Prostate specific Ag [Mass/v olume] in Serum or PlasmaOrdered By: Reshmalemeliton Pina on 12-19-2023 Prostate specific Ag [Mass/Vol] 0.800 ng/mL 0.000-4.000 [facility] Comment on above: Serial tumor marker results determined by assays using different manufacturers or methods may not be comparable.[facility] director case management and method:turboBOTZ DXI, CHEMILUMINESCENT IMMUNOASSAY. Prostate specific Ag [Mass/v olume] in Serum or PlasmaOrdered By: Norleena Silvana on 09-12-2023 Prostate specific Ag [Mass/Vol] 0.400 ng/mL 0.000-4.000 [facility] Comment on above: Serial tumor marker results determined by assays using different manufacturers or methods may not be comparable.[facility] director case management and method:turboBOTZ DXI, CHEMILUMINESCENT IMMUNOASSAY. Prostate specific Ag [Mass/v olume] in Serum or PlasmaOrdered By: Rosy Pina on 06-06-2023 Prostate specific Ag [Mass/Vol] 0.680 ng/mL 0.000-4.000 [facility] Comment on above: Serial tumor marker results determined by assays using different manufacturers or methods may not be comparable.[facility] director case management and method:[employer]us[employer]EL DXI, CHEMILUMINESCENT IMMUNOASSAY. Prostate Specific Ag Free [M ass/volume] in Serum or PlasmaOrdered By: Jermaine Jensen on 12-05-2022 Free PSA [Mass/Vol] 0.540 ng/mL [facility] Prostate specific Ag [Mass/v olume] in Serum or PlasmaOrdered By: Jermaine Jensen on 12-05-2022 Prostate specific Ag [Mass/Vol] 1.590 ng/mL 0.000-4.000 [facility] Serum or plasma free prostat e specific antigen (PSA)/total PSA ratioOrdered By: Jermaine Jensen on 12-05-2022 Free PSA/Total PSA [Mass fraction] 33.9 % [facility] Comment on above: Based on the work [...] Prostate specific Ag [Mass/Vol] 2.090 ng/mL 0.000-4.000 [facility] GLYCOHEMOGLOBIN A1Con 2022 ADA RECOMMENDATION SEE BELOW Normal [facility] Comment on above: Result Comment: ADA RECOMMENDED LIMIT 4.0 - 6.0 ADA THERAPEUTIC TARGET < 7.0 ACTION SUGGESTED > 7.0 Performed By: #### A 1C #### [facility] [address] [address] [address] Sary Elkins Glucose [Mass/Vol] 163 mg/dL Normal [facility] Comment on above: Performed By: #### A 1C #### [facility] [address] [address] [address] Sary Elkins HbA1c (Bld) [Mass fraction] 7.3 % Critically high 4.5-6.2 [facility] Comment on above: Performed By: #### A 1C #### [facility] [address] [address] [address] Sary Elkins Glucose Glucometer (BldC) [M ass/Vol]Ordered By: Rosy Pina on 05-15-2022 Glucose [Mass/Vol] 157 mg/dL [facility] Comment on above: Random Glucose Refer ence Range is dependent on time and content of last meal. Glucose of more than 200 mg/dL in a nonstressed, ambulatory subject supports the diagnosis of Diabetes Mellitus. Basophils Auto (Bld) [#/Vol] Ordered By: Rosy Pina on 05-08-2022 Basophils (Bld) [#/Vol] 0.0 10*3/uL 0.0-0.2 [facility] Basophils/100 WBC Auto (Bld) Ordered By: Rosy Pina on 05-08-2022 Basophils/100 WBC (Bld) 0.4 % . [facility] Creatinine and Glomerular fi ltration rate.predicted panel (S/P/Bld)Ordered By: Rosy Pina on 05-08-2022 Creatinine [Mass/Vol] 0.84 mg/dL 0.64-1.27 [facility] Eosinophils Auto (Bld) [#/Vo l]Ordered By: Rosy Pina on 05-08-2022 Eosinophils (Bld) [#/Vol] 0.3 10*3/uL 0.0-0.45 [facility] Eosinophils/100 WBC Auto (Bl d)Ordered By: Rosy Pina on 05-08-2022 Eosinophils/100 WBC (Bld) 5.1 % . [facility] Erythrocyte distribution wid th Auto (RBC) [Ratio]Ordered By: Roys Pina on 05-08-2022 Erythrocyte distribution width (RBC) [Ratio] 14.3 % 12.0-14.8 [facility] Estimated glomerular filtrat ion rate (GFR) non- AmericanOrdered By: Rosy Pina on 05-08-2022 GFR/1.73 sq M.predicted among non-blacks MDRD (S/P/Bld) [Vol rate/Area] > 60 mL/Min [facility] Hematocrit Auto (Bld) [Volum e fraction]Ordered By: Rosy Pina on 05-08-2022 Hematocrit (Bld) [Volume fraction] 37.5 % 38.8-50.0 [facility] Hemoglobin [Mass/volume] in BloodOrdered By: Rosy Pina on 05-08-2022 Hemoglobin (Bld) [Mass/Vol] 12.9 g/dL 13.0-17.0 [facility] - Hematology and Cell countsOrdered By: Rosy Pina on 05-08-2022 Nucleated RBC/100 WBC (Bld) [Ratio] 0.0 % 0-0.5 [facility] Leukocytes [#/volume] in Blo od by Automated countOrdered By: Rosy Pina on 05-08-2022 WBC (Bld) [#/Vol] 5.7 10*3/uL 4.5-11.0 [facility] Lymphocytes Auto (Bld) [#/Vo l]Ordered By: Rosy Pina on 05-08-2022 Lymphocytes (Bld) [#/Vol] 1.2 10*3/uL 1.00-4.8 [facility] Lymphocytes/100 WBC Auto (Bl d)Ordered By: Rosy Pina on 05-08-2022 Lymphocytes/100 WBC (Bld) 20.5 % . [facility] MCH Auto (RBC) [Entitic mass ]Ordered By: Rosy Pina on 05-08-2022 MCH (RBC) [Entitic mass] 31.8 pg 27.5-35.2 [facility] MCHC Auto (RBC) [Mass/Vol]Or dered By: Rosy Pina on 05-08-2022 MCHC (RBC) [Mass/Vol] 34.4 g/dL 32.5-35.6 [facility] MCV Auto (RBC) [Entitic vol] Ordered By: Rosy Pina on 05-08-2022 MCV (RBC) [Entitic vol] 92.4 fL 83.5-101 [facility] Monocytes Auto (Bld) [#/Vol] Ordered By: Rosy Pina on 05-08-2022 Monocytes (Bld) [#/Vol] 0.3 10*3/uL 0.0-0.8 [facility] Monocytes/100 WBC Auto (Bld) Ordered By: Rosy Pina on 05-08-2022 Monocytes/100 WBC (Bld) 4.5 % . [facility] Neutrophils Auto (Bld) [#/Vo l]Ordered By: Rosy Pina on 05-08-2022 Neutrophils (Bld) [#/Vol] 4.0 10*3/uL 1.8-7.7 [facility] Neutrophils/100 WBC Auto (Bl d)Ordered By: Rosy Pina on 05-08-2022 Neutrophils/100 WBC (Bld) 69.5 % . [facility] No Panel InformationOrdered By: Rosy Pina on 05-08-2022 Estimated GFR () > 60 mL/Min [facility] Comment on above: GFR estimated refere nce range: According to KDOQI guidelines, <60 ml/min/1.73m2 is sufficient to diagnose a patient with chronic kidney disease. Pharmacy Creatinine Clearance (Chem N/A [facility] Platelet mean volume Auto (B ld) [Entitic vol]Ordered By: Rosy Pina on 05-08-2022 Platelet mean volume (Bld) [Entitic vol] 6.9 fL 6.6-10.1 [facility] Platelets Auto (Bld) [#/Vol] Ordered By: Rosy Pina on 05-08-2022 Platelets (Bld) [#/Vol] 148 10*3/uL 150-450 [facility] RBC Auto (Bld) [#/Vol]Ordere d By: Rosy Pina on 05-08-2022 RBC (Bld) [#/Vol] 4.05 10*6/uL 3.90-5.60 [facility] Serum or plasma anion gap de terminationOrdered By: Rosy Pina on 05-08-2022 Anion gap [Moles/Vol] 16.6 mmol/L 6.0-15.0 [facility] Serum or plasma calcium jose e urement (mass/volume)Ordered By: Rosy Pina on 05-08-2022 Calcium [Mass/Vol] 9.7 mg/dL 8.2-10.2 [facility] Serum or plasma chloride erika surement (moles/volume)Ordered By: Rosy Pina on 05-08-2022 Chloride [Moles/Vol] 99 mmol/L 95-114 [facility] Serum or plasma glucose jose e urement (mass/volume)Ordered By: Rosy Pina on 05-08-2022 Glucose [Mass/Vol] 132 mg/dL 70-100 [facility] Comment on above: ADA recommended refe rence rangeRandom Glucose Reference Range is dependent on time and content of last meal. Glucose of more than 200 mg/dL in a nonstressed, ambulatory subject supports the diagnosis of Diabetes Mellitus. Serum or plasma potassium me asurement (moles/volume)Ordered By: Rosy Pina on 05-08-2022 Potassium [Moles/Vol] 4.5 mmol/L 3.5-5.1 [facility] Serum or plasma sodium measu rement (moles/volume)Ordered By: Rosy Pina on 05-08-2022 Sodium [Moles/Vol] 135 mmol/L 136-146 [facility] Serum or plasma total carbon dioxide measurement (moles/volume)Ordered By: Rosy Pina on 05-08-2022 CO2 [Moles/Vol] 23.9 mmol/L 22.0-30.0 [facility] Serum or plasma urea nitroge n measurement (mass/volume)Ordered By: Rosy Pina on 05-08-2022 Urea nitrogen [Mass/Vol] 15 mg/dL 03-03 [facility] Creatinine (Bld) [Mass/Vol]O rdered By: Jermaine Jensen on 03-01-2022 Creatinine [Mass/Vol] 1.0 mg/dL 0.6-1.3 [facility] Comment on above: ER/ESD physician is notified/shown all ISTAT results. Critical values may be confirmed by laboratory testing if deemed necessary by ER attending doctor. ER/ESD physician is notified/shown all ISTAT results.Critical values may be confirmed by laboratory testing ifdeemed necessary by ER attending doctor. No Panel InformationOrdered By: Jermaine Jensen on 03-01-2022 POC Estimated GFR > 60 [facility] Comment on above: GFR estimated refere nce range: According to KDOQI guidelines, <60 ml/min/1.73m2 is sufficient to diagnose a patient with chronic kidney disease. POC Estimated GFR Non- Amer > 60 [facility] MICROALBUMIN URINEon 022 Albumin, Urine 63.5 ug/mL Normal Not Estab. [facility] Comment on above: Performed By: #### M ALBLC #### [facility] [address] [place] [address] Dr. Sary Elkins CBC AUTO DIFFon 01-17-2022 BASO # 0.1 103/ul Normal 0.0-0.1 [facility] Comment on above: Performed By: #### C BC #### [facility] [address] [place] [address] Dr. Sary Elkins Basophils/100 WBC (Bld) 0.7 % Normal 0.2-2.0 [facility] Comment on above: Performed By: #### C BC #### [facility] [address] [place] [address] Dr. Sary Elkins EO # 0.5 103/ul Normal 0.0-0.7 [facility] Comment on above: Performed By: #### C BC #### [facility] [address] [place] [address] Dr. Sary Elkins Eosinophils/100 WBC (Bld) 6.9 % Normal 0.9-7.0 [facility] Comment on above: Performed By: #### C BC #### [facility] [address] [place] [address] Dr. Sary Elkins Erythrocyte distribution width (RBC) [Ratio] 14.0 % Normal 11.0-15.0 [facility] Comment on above: Performed By: #### C BC #### [facility] [address] [place] [address] Dr. Sary Elkins Hematocrit (Bld) [Volume fraction] 34.2 % Critically low 42.0-54.0 [facility] Comment on above: Performed By: #### C BC #### [facility] [address] [place] [address] Dr. Sary Elkins Hemoglobin (Bld) [Mass/Vol] 11.8 g/dL Critically low 14.0-18.0 [facility] Comment on above: Performed By: #### C BC #### [facility] [address] [place] [address] Dr. Sary Elkins IG # 0.02 10e3/ul Normal 0.00-0.03 [facility] Comment on above: Performed By: #### C BC #### [facility] [address] [place] [address] Dr. Sary Elkins IG % 0.3 % Normal 0.0-0.5 [facility] Comment on above: Performed By: #### C BC #### [facility] [address] [place] [address] Dr. Sary Elkins LYMPH # 1.5 103/ul Normal 1.2-3.8 [facility] Comment on above: Performed By: #### C BC #### [facility] [address] [place] [address] Dr. Sary Elkins Lymphocytes/100 WBC (Bld) 21.6 % Normal 20.5-60.0 [facility] Comment on above: Performed By: #### C BC #### [facility] [address] [place] [address] Dr. Sary Elkins MANUAL DIFF REQ NO Normal [facility] Comment on above: Performed By: #### C BC #### [facility] [address] [place] [address] Dr. Sary Elkins MCH (RBC) [Entitic mass] 32.7 pg Normal 25.9-34.0 [facility] Comment on above: Performed By: #### C BC #### [facility] [address] [place] [address] Dr. Sary Elkins MCHC (RBC) [Mass/Vol] 34.5 g/dL Normal 29.9-35.2 [facility] Comment on above: Performed By: #### C BC #### [facility] [address] [place] [address] Dr. Sary Elkins MCV (RBC) [Entitic vol] 94.7 fL Critically high 80.0-94 .0 [facility] Comment on above: Performed By: #### C BC #### [facility] [address] [place] [address] Dr. Sary Elkins MONO # 0.4 103/ul Normal 0.3-0.8 [facility] Comment on above: Performed By: #### C BC #### [facility] [address] [place] [address] Dr. Sary Elkins Monocytes/100 WBC (Bld) 5.3 % Normal 1.7-12.0 [facility] Comment on above: Performed By: #### C BC #### [facility] [address] [place] [address] Dr. Sary Elkins NEUT # 4.5 103/ul Normal 1.4-6.5 [facility] Comment on above: Performed By: #### C BC #### [facility] [address] [place] [address] Dr. Sary Elkins Neutrophils/100 WBC (Bld) 65.2 % Normal 43.0-75.0 [facility] Comment on above: Performed By: #### C BC #### [facility] [address] [place] [address] Dr. Sary Elkins Platelet mean volume (Bld) [Entitic vol] 9.2 fL Critically low 9.5-13.5 [facility] Comment on above: Performed By: #### C BC #### [facility] [address] [place] [address] Dr. Sary Elkins PLT 137 103/ul Critically low 150-450 [facility] Comment on above: Performed By: #### C BC #### [facility] [address] [address] [address] Sary Elkins RBC 3.61 106/ul Critically low 4.70-6.10 [facility] Comment on above: Performed By: #### C BC #### [facility] [address] [place] [address] Dr. Sary Elkins WBC 6.8 103/ul Normal 4.0-11.0 [facility] Comment on above: Performed By: #### C BC #### [facility] [address] [place] [address] Dr. Sary Elkins GLYCOHEMOGLOBIN A1Con 2021 ADA RECOMMENDATION SEE BELOW Normal [facility] Comment on above: Result Comment: ADA RECOMMENDED LIMIT 4.0 - 6.0 ADA THERAPEUTIC TARGET < 7.0 ACTION SUGGESTED > 7.0 Performed By: #### A 1C #### [facility] [address] [place] [address] Dr. Sary Elkins Glucose [Mass/Vol] 137 mg/dL Normal [facility] Comment on above: Performed By: #### A 1C #### [facility] [address] [place] [address] Dr. Sary Elkins HbA1c (Bld) [Mass fraction] 6.4 % Critically high 4.5-6.2 [facility] Comment on above: Performed By: #### A 1C #### [facility] [address] [place] [address] Dr. Sary Elkins LIPID PROFILEon 01-17-2022 CHOL-HDL RATIO NORM SEE BELOW Normal [facility] Comment on above: Result Comment: 3.3 - 4.4 LOW RISK 4.4 - 7.1 AVERAGE RISK 7.1 - 11.0 MODERATE RISK >11.0 HIGH RISK Performed By: #### B MP, AST, ALT, LIPID #### [facility] [address] [address] [address] Sary Elkins Cholesterol [Mass/Vol] 124 mg/dL Normal <=200 [facility] Comment on above: Performed By: #### B MP, AST, ALT, LIPID #### [facility] [address] [address] [address] Sary Elkins Cholesterol in HDL [Mass/Vol] 28 mg/dL Critically low 40-60 [facility] Comment on above: Performed By: #### B MP, AST, ALT, LIPID #### [facility] [address] [place] [address] Dr. Sary Elkins Cholesterol in LDL [Mass/Vol] 41.0 mg/dL Normal [facility] Comment on above: Performed By: #### B MP, AST, ALT, LIPID #### [facility] [address] [place] [address] Dr. Sary Elkins Cholesterol.total/Kassy sterol in HDL [Mass ratio] 4.4 {ratio} Normal [facility] Comment on above: Performed By: #### B MP, AST, ALT, LIPID #### [facility] [address] [place] [address] Dr. Sary Elkins HDL NORMAL > or = 60 mg/dl - LO W CARDIOVASCULAR RISK <40 mg/dl - HIGH CARDIOVASCULAR RISK Normal [facility] Comment on above: Performed By: #### B MP, AST, ALT, LIPID #### [facility] [address] [place] [address] Dr. Sary Elkins LDL CALC NORMAL SEE BELOW Normal [facility] Comment on above: Result Comment: <100 mg/dl OPTIMAL 100 - 129 mg/dl NEAR OR ABOVE OPTIMAL 130 - 159 mg/dl BORDERLINE HIGH 160 - 189 mg/dl HIGH >190 mg/dl VERY HIGH Performed By: #### B MP, AST, ALT, LIPID #### [facility] [address] [place] [address] Dr. Sary Elkins Triglyceride [Mass/Vol] 275 mg/dL Critically high <=150 [facility] Comment on above: Performed By: #### B MP, AST, ALT, LIPID #### [facility] [address] [address] [address] Sary Elkins VLDL CALC 55.0 mg/dL Normal [facility] Comment on above: Performed By: #### B MP, AST, ALT, LIPID #### [facility] [address] [place] [address] Dr. Sary Elkins PROF CHEM 8 (BAS METB)on Anion gap [Moles/Vol] 17.0 mmol/L Normal [facility] Comment on above: Performed By: #### B MP, AST, ALT, LIPID #### [facility] [address] [place] [address] Dr. Sary Elkins Calcium [Mass/Vol] 9.0 mg/dL Normal 8.5-10.1 [facility] Comment on above: Performed By: #### B MP, AST, ALT, LIPID #### [facility] [address] [place] [address] Dr. Sary Elkins Chloride [Moles/Vol] 101 mmol/L Normal 98-107 [facility] Comment on above: Performed By: #### B MP, AST, ALT, LIPID #### [facility] [address] [place] [address] Dr. Sary Elkins CO2 [Moles/Vol] 24.7 mmol/L Normal 21.0-32.0 [facility] Comment on above: Performed By: #### B MP, AST, ALT, LIPID #### [facility] [address] [place] [address] Dr. Sary Elkins Creatinine [Mass/Vol] 1.22 mg/dL Normal 0.70-1.30 [facility] Comment on above: Performed By: #### B MP, AST, ALT, LIPID #### [facility] [address] [place] [address] Dr. Sary Elkins EGFR-AF TUVALUAN >60 Normal >=60 [facility] Comment on above: Performed By: #### B MP, AST, ALT, LIPID #### [facility] [address] [address] [address] Sary Elkins EGFR-NON AF TUVALUAN 58 mL/min/1.73m2 Critically low >=60 [facility] Comment on above: Performed By: #### B MP, AST, ALT, LIPID #### [facility] [address] [address] [address] Sary Elkins Glucose [Mass/Vol] 155 mg/dL Critically high 74-[address] [facility] Comment on above: Performed By: #### B MP, AST, ALT, LIPID #### [facility] [address] [address] [address] Sary Elkins Potassium [Moles/Vol] 4.7 mmol/L Normal 3.5-5.1 [facility] Comment on above: Performed By: #### B MP, AST, ALT, LIPID #### [facility] [address] [place] [address] Dr. Sary Elkins Sodium [Moles/Vol] 138 mmol/L Normal 136-145 [facility] Comment on above: Performed By: #### B MP, AST, ALT, LIPID #### [facility] [address] [address] [address] Sary Elkins Urea nitrogen [Mass/Vol] 25.0 mg/dL Critically high 7.0-18.0 [facility] Comment on above: Performed By: #### B MP, AST, ALT, LIPID #### [facility] [address] [address] [address] Sary Elkins Urea nitrogen/Creatinine [Mass ratio] 20.5 mg/mg Normal [facility] Comment on above: Performed By: #### B MP, AST, ALT, LIPID #### [facility] [address] [address] [address] Sary Garg 01-17-2022 AST [Catalytic activity/Vol] 23 U/L Normal 15-37 [facility] Comment on above: Performed By: #### B MP, AST, ALT, LIPID #### [facility] [address] [address] [address] Sary Mustafa 01-17-2022 ALT [Catalytic activity/Vol] 33 U/L Normal 16-63 [facility] Comment on above: Performed By: #### B MP, AST, ALT, LIPID #### [facility] [address] [address] [address] Sary Elkins XR KUB 1 VIEWon [...] by: ISABELLA FULLER Date: 2021-12-16 15:58 Normal [facility] CNCOon 11-08-2021 CNCO Letter Text Normal [facility] No Panel Information [facility] Vital Signs Date Time Vital Sign Value Performing Clinician Facility 01-26-2025 09:22-0400 Body height 188 cm Isabella Powell DPM Work Phone: [facility] 01-26-2025 09:22-0400 Body mass index (BMI) [Ratio] 25.16 kg/m2 Isabella ALMENDAREZM Work Phone: [facility] 01-26-2025 09:22-0400 Body weight 88.91 kg Isabella Powell DPM Work Phone: [facility] 01-02-2025 11:48-0400 Body height 188 cm Blake Ng MD Work Phone: [facility] 01-02-2025 11:48-0400 Body mass index (BMI) [Ratio] 25.16 kg/m2 Blake Ng MD Work Phone: [facility] 01-02-2025 11:48-0400 Body temperature 97.11 [degF] Blake Ng MD Work Phone: [facility] 01-02-2025 11:48-0400 Body weight 88.91 kg Blake Ng MD Work Phone: [facility] 01-02-2025 11:48-0400 Diastolic blood pressure 54 mm[Hg] Blake Ng MD Work Phone: [facility] 01-02-2025 11:48-0400 Heart rate 89 /min Blake Ng MD Work Phone: [facility] 01-02-2025 11:48-0400 Respiratory rate 18 /min Blake Ng MD Work Phone: [facility] 01-02-2025 11:48-0400 SaO2% (BldA) [Mass fraction] 98 % Blake Ng MD Work Phone: [facility] 01-02-2025 11:48-0400 Systolic blood pressure 112 mm[Hg] Blake Ng MD Work Phone: [facility] 10-20-2024 12:00-0400 Body height 188 cm Jaycob Dill DO Work Phone: [facility] 10-20-2024 12:00-0400 Body mass index (BMI) [Ratio] 26.71 kg/m2 Jaycob Dill DO Work Phone: [facility] 10-20-2024 12:00-0400 Body weight 94.35 kg Jaycob Dill DO Work Phone: [facility] 10-13-2024 09:16-0400 Body height 188 cm Isabella Powell DPM Work Phone: [facility] 10-13-2024 09:16-0400 Body mass index (BMI) [Ratio] 26.96 kg/m2 Isabella Powell DPM Work Phone: [facility] 10-13-2024 09:16-0400 Body weight 95.25 kg Isabella Powell DPM Work Phone: [facility] 08-05-2024 10:48-0500 Body height 188 cm Blake Ng MD Work Phone: [facility] 08-05-2024 10:48-0500 Body mass index (BMI) [Ratio] 27.09 kg/m2 Blake Ng MD Work Phone: [facility] 08-05-2024 10:48-0500 Body temperature 97.5 [degF] Blake Ng MD Work Phone: [facility] 08-05-2024 10:48-0500 Body weight 95.71 kg Blake Ng MD Work Phone: [facility] 08-05-2024 10:48-0500 Diastolic blood pressure 58 mm[Hg] Blake Ng MD Work Phone: [facility] 08-05-2024 10:48-0500 Heart rate 85 /min Blake Ng MD Work Phone: [facility] 08-05-2024 10:48-0500 Respiratory rate 18 /min Blake Ng MD Work Phone: [facility] 08-05-2024 10:48-0500 SaO2% (BldA) [Mass fraction] 97 % Blake Ng MD Work Phone: [facility] 08-05-2024 10:48-0500 Systolic blood pressure 122 mm[Hg] Blake Ng MD Work Phone: [facility] 07-07-2024 09:40-0500 Body height 188 cm Isabella Powell DPM Work Phone: [facility] 07-07-2024 09:40-0500 Body mass index (BMI) [Ratio] 26.06 kg/m2 Isabella Powell DPM Work Phone: [facility] 07-07-2024 09:40-0500 Body weight 92.08 kg Isabella Powell DPM Work Phone: [facility] 06-20-2024 09:29-0500 Body height 188 cm Blake Ng MD Work Phone: [facility] 06-20-2024 09:29-0500 Body mass index (BMI) [Ratio] 26.06 kg/m2 Blake Ng MD Work Phone: [facility] 06-20-2024 09:29-0500 Body temperature 98.01 [degF] Blake Ng MD Work Phone: [facility] 06-20-2024 09:29-0500 Body weight 92.08 kg Blake Ng MD Work Phone: [facility] 06-20-2024 09:29-0500 Diastolic blood pressure 62 mm[Hg] Blake Ng MD Work Phone: [facility] 06-20-2024 09:29-0500 Heart rate 96 /min Blake Ng MD Work Phone: [facility] 06-20-2024 09:29-0500 Respiratory rate 22 /min Blake Ng MD Work Phone: [facility] 06-20-2024 09:29-0500 SaO2% (BldA) [Mass fraction] 98 % Blake Ng MD Work Phone: [facility] 06-20-2024 09:29-0500 Systolic blood pressure 160 mm[Hg] Blake Ng MD Work Phone: [facility] 05-15-2024 09:41-0500 Body height 188 cm Isabellaberny Powell DPM Work Phone: [facility] 05-15-2024 09:41-0500 Body mass index (BMI) [Ratio] 25.42 kg/m2 Isabella Rusher DPM Work Phone: [facility] 05-15-2024 09:41-0500 Body weight 89.81 kg Isabellaberny Powell DPM Work Phone: [facility] 04-14-2024 14:52-0500 Body height 188 cm Isabella Andre DPM Work Phone: [facility] 04-14-2024 14:52-0500 Body mass index (BMI) [Ratio] 25.42 kg/m2 Isabella Rusher DPM Work Phone: [facility] 04-14-2024 14:52-0500 Body weight 89.81 kg Isabella Powell DPM Work Phone: [facility] 04-02-2024 13:23-0400 Body height 188 cm Isabella Powell DPM Work Phone: [facility] 04-02-2024 13:23-0400 Body mass index (BMI) [Ratio] 25.42 kg/m2 Isabella Powell DPM Work Phone: [facility] 04-02-2024 13:23-0400 Body weight 89.81 kg Isabella Powell DPM Work Phone: [facility] 03-26-2024 14:22-0400 Body height 188 cm Isabella Powell DPM Work Phone: [facility] 03-26-2024 14:22-0400 Body mass index (BMI) [Ratio] 25.42 kg/m2 Isabella Powell DPM Work Phone: [facility] 03-26-2024 14:22-0400 Body weight 89.81 kg Isabella Powell DPM Work Phone: [facility] 03-24-2024 08:30-0400 Body height 188 cm Isabella Powell DPM Work Phone: [facility] 03-24-2024 08:30-0400 Body mass index (BMI) [Ratio] 25.42 kg/m2 Isabella Powell DPM Work Phone: [facility] 03-24-2024 08:30-0400 Body weight 89.81 kg Isabella Powell DPM Work Phone: [facility] 01-10-2024 10:36-0400 Body weight 89.81 kg MD Blake Ng Work Phone: [facility] 01-10-2024 10:36-0400 Diastolic blood pressure 69 mm[Hg] MD Blake Ng Work Phone: [facility] 01-10-2024 10:36-0400 Heart rate 83 /min MD Blake Ng Work Phone: [facility] 01-10-2024 10:36-0400 Respiratory rate 18 /min MD Blake Ng Work Phone: [facility] 01-10-2024 10:36-0400 SaO2% (BldA) [Mass fraction] 98 % MD Blake Ng Work Phone: [facility] 01-10-2024 10:36-0400 Systolic blood pressure 130 mm[Hg] MD Blake Ng Work Phone: [facility] 12-28-2023 09:39-0400 Blood Pressure Location Jermaine JENSEN [facility] 12-28-2023 09:39-0400 Body temperature 98.6 [degF] Jermaine JENSEN [facility] 12-28-2023 09:39-0400 Diastolic blood pressure 69 mm[Hg] Jermaine JENSEN [facility] 12-28-2023 09:39-0400 Heart rate 80 /min Jermaine JENSEN [facility] 12-28-2023 09:39-0400 Respiratory rate 16 /min Jermaine JENSEN [facility] 12-28-2023 09:39-0400 Systolic blood pressure 131 mm[Hg] Jermaine JENSEN [facility] 09-18-2023 10:01-0400 Body temperature 97.9 [degF] MD Blake Ng Work Phone: [facility] 09-18-2023 10:01-0400 Body weight 99.33 kg MD Blake Ng Work Phone: [facility] 09-18-2023 10:01-0400 Diastolic blood pressure 88 mm[Hg] MD Blake Ng Work Phone: [facility] 09-18-2023 10:01-0400 Heart rate 89 /min MD Blake Ng Work Phone: [facility] 09-18-2023 10:01-0400 Respiratory rate 16 /min MD Blake Ng Work Phone: [facility] 09-18-2023 10:01-0400 SaO2% (BldA) [Mass fraction] 94 % MD Blake Ng Work Phone: [facility] 09-18-2023 10:01-0400 Systolic blood pressure 168 mm[Hg] MD Blake Ng Work Phone: [facility] 08-22-2023 14:28-0400 Diastolic blood pressure 73 mm[Hg] MD Blake Ng Work Phone: [facility] 08-22-2023 14:28-0400 Heart rate 77 /min MD Blake Ng Work Phone: [facility] 08-22-2023 14:28-0400 Systolic blood pressure 144 mm[Hg] MD Blake Ng Work Phone: [facility] 06-13-2023 09:59-0500 Body temperature 97.8 [degF] MD Blake Ng Work Phone: [facility] 06-13-2023 09:59-0500 Body weight 97.06 kg MD Blake Ng Work Phone: [facility] 06-13-2023 09:59-0500 Diastolic blood pressure 84 mm[Hg] MD Blake Ng Work Phone: [facility] 06-13-2023 09:59-0500 Heart rate 84 /min MD Blake Ng Work Phone: [facility] 06-13-2023 09:59-0500 Respiratory rate 16 /min MD Blake Ng Work Phone: [facility] 06-13-2023 09:59-0500 SaO2% (BldA) [Mass fraction] 98 % MD Blake Ng Work Phone: [facility] 06-13-2023 09:59-0500 Systolic blood pressure 175 mm[Hg] MD Blake Ng Work Phone: [facility] 12-13-2022 09:33-0400 Body temperature 97.8 [degF] MD Blake Ng Work Phone: [facility] 12-13-2022 09:33-0400 Body weight 93.89 kg MD Blake Ng Work Phone: [facility] 12-13-2022 09:33-0400 Diastolic blood pressure 77 mm[Hg] MD Blake Ng Work Phone: [facility] 12-13-2022 09:33-0400 Heart rate 79 /min MD Blake Ng Work Phone: [facility] 12-13-2022 09:33-0400 Respiratory rate 18 /min MD Blake Ng Work Phone: [facility] 12-13-2022 09:33-0400 SaO2% (BldA) [Mass fraction] 98 % MD Blake Ng Work Phone: [facility] 12-13-2022 09:33-0400 Systolic blood pressure 150 mm[Hg] MD Blake Ng Work Phone: [facility] 09-11-2022 12:54-0400 Body temperature 98.1 [degF] MD Blake Ng Work Phone: [facility] 09-11-2022 12:54-0400 Body weight 97.52 kg MD Blake Ng Work Phone: [facility] 09-11-2022 12:54-0400 Diastolic blood pressure 89 mm[Hg] MD Blake Ng Work Phone: [facility] 09-11-2022 12:54-0400 Heart rate 85 /min MD Blake Ng Work Phone: [facility] 09-11-2022 12:54-0400 Respiratory rate 18 /min MD Blake Ng Work Phone: [facility] 09-11-2022 12:54-0400 SaO2% (BldA) [Mass fraction] 97 % MD Blake Ng Work Phone: [facility] 09-11-2022 12:54-0400 Systolic blood pressure 150 mm[Hg] MD Blake Ng Work Phone: [facility] 07-12-2022 09:42-0500 Body temperature 97.8 [degF] MD Blake Ng Work Phone: [facility] 07-12-2022 09:42-0500 Body weight 96.2 kg MD Blake Ng Work Phone: [facility] 07-12-2022 09:42-0500 Diastolic blood pressure 79 mm[Hg] MD Blake Ng Work Phone: [facility] 07-12-2022 09:42-0500 Heart rate 86 /min MD Blake Ng Work Phone: [facility] 07-12-2022 09:42-0500 Respiratory rate 18 /min MD Blake Ng Work Phone: [facility] 07-12-2022 09:42-0500 SaO2% (BldA) [Mass fraction] 99 % MD Blake Ng Work Phone: [facility] 07-12-2022 09:42-0500 Systolic blood pressure 146 mm[Hg] MD Blake Ng Work Phone: [facility] 05-15-2022 08:50-0500 Diastolic blood pressure 89 mm[Hg] MD Blake Ng Work Phone: [facility] 05-15-2022 08:50-0500 Heart rate 91 /min MD Blake Ng Work Phone: [facility] 05-15-2022 08:50-0500 Respiratory rate 16 /min MD Blkae Ng Work Phone: [facility] 05-15-2022 08:50-0500 SaO2% (BldA) [Mass fraction] 96 % MD Blake Ng Work Phone: [facility] 05-15-2022 08:50-0500 Systolic blood pressure 131 mm[Hg] MD Blake Ng Work Phone: [facility] 05-15-2022 07:17-0500 Body height 187.96 cm MD Blake Ng Work Phone: [facility] 05-15-2022 07:17-0500 Body mass index (BMI) [Ratio] 26.6 kg/m2 MD Blake Ng Work Phone: [facility] 05-15-2022 07:17-0500 Body weight 94.1 kg MD Blake Ng Work Phone: [facility] 05-15-2022 06:05-0500 Body temperature 98 [degF] MD Blake Ng Work Phone: [facility] 04-27-2022 13:38-0500 Body height 187.96 cm MD Blake Ng Work Phone: [facility] 04-27-2022 09:42-0500 Body height 187.96 cm MD Blake Ng Work Phone: [facility] 04-27-2022 09:42-0500 Body temperature 98 [degF] MD Blake Ng Work Phone: [facility] 04-27-2022 09:42-0500 Body weight 95.8 kg MD Blake Ng Work Phone: [facility] 04-27-2022 09:42-0500 Diastolic blood pressure 84 mm[Hg] MD Blake Ng Work Phone: [facility] 04-27-2022 09:42-0500 Heart rate 81 /min MD Blake Ng Work Phone: [facility] 04-27-2022 09:42-0500 Respiratory rate 18 /min MD Blake Ng Work Phone: [facility] 04-27-2022 09:42-0500 SaO2% (BldA) [Mass fraction] 98 % MD Blake Ng Work Phone: [facility] 04-27-2022 09:42-0500 Systolic blood pressure 154 mm[Hg] MD Blake Ng Work Phone: [facility] 04-14-2022 10:35-0400 Blood Pressure Location Jermaine JENSEN [facility] 04-14-2022 10:35-0400 Diastolic blood pressure 74 mm[Hg] Jermaine JENSEN [facility] 04-14-2022 10:35-0400 Heart rate 56 /min Jermaine JENSEN [facility] 04-14-2022 10:35-0400 Respiratory rate 16 /min Jermaine JENSEN [facility] 04-14-2022 10:35-0400 Systolic blood pressure 136 mm[Hg] Jermaine JENSEN [facility] 12-23-2021 08:14-0400 Blood Pressure Location Jermaine JENSEN [facility] 12-23-2021 08:14-0400 Diastolic blood pressure 75 mm[Hg] Jermaine JENSEN [facility] 12-23-2021 08:14-0400 Heart rate 80 /min Jermaine JENSEN [facility] 12-23-2021 08:14-0400 Respiratory rate 16 /min Jermaine JENSEN [facility] 12-23-2021 08:14-0400 Systolic blood pressure 134 mm[Hg] Jermaine JENSEN [facility] Encounters Encounter Date Encounter Type Care Provider Facility Start: 01-26-2025 End: 01-26-2025 Osmel Powell DPM Work Phone: [facility] Start: 01-26-2025 End: 01-26-2025 Bamaxel Powell DPM [facility] Phone: [facility] Start: 01-26-2025 End: 01-26-2025 Patient encounter procedure Isabella Powell DPM Work Phone: [facility] Comment on above: Dermatophytosis of n ail (Primary Dx); Dystrophic nail; Diabetic polyneuropathy associated with type 2 diabetes mellitus (HCC); Encounter for long-term (current) use of insulin (HCC) Start: 01-26-2025 End: 01-26-2025 ambulatory ISABELLA POWELL Not Available Start: 01-19-2025 End: 01-19-2025 ambulatory [facility] Start: 01-19-2025 End: 01-19-2025 Encounter for preprocedural cardiovascular examination [facility] Start: 01-12-2025 End: 01-12-2025 Clinisync Result Encounter Blake Ng MD Work Phone: [facility] Unsolicited Start: 01-12-2025 End: 01-12-2025 Clinisync Result Encounter Blake Ng MD Work Phone: [facility] Unsolicited Start: 01-08-2025 ambulatory Jermaine JENSEN Facili ty:[id number] Start: 01-02-2025 End: 01-02-2025 Bamboo flowsheet Blake [...] Unsolicited Start: 12-29-2024 End: 12-29-2024 ambulatory Jermaine JENSEN Facility:[facility] Start: 12-29-2024 End: 12-29-2024 ambulatory Jermaine JENSEN Facility:[facility] Start: 12-29-2024 End: 12-29-2024 Patient encounter procedure Jermaine JENSEN [facility] Start: 12-24-2024 End: 12-24-2024 Patient encounter procedure Jermaine Jensen MD [facility] Work Phone: Start: 12-24-2024 End: 12-24-2024 ambulatory Blake Ng MD Work Phone: [facility] Work Phone: Start: 11-04-2024 End: 11-04-2024 [facility] Work Phone: Start: 11-04-2024 End: 11-04-2024 ambulatory Jermaine Jensen [facility] Work Phone: Start: 10-20-2024 End: 10-20-2024 Patient encounter procedure Jaycob Dill DO Work Phone: [facility] Comment on above: Left elbow pain (Miranda tre Dx) Start: 10-20-2024 End: 10-20-2024 ambulatory JAYCOB DILL Not Available Start: 10-20-2024 End: 10-20-2024 ambulatory JAYCOB DILL Not Available Start: 10-13-2024 End: 10-13-2024 Bamboo flowsheet Isabella Powell DPM Work Phone: [facility] Start: 10-13-2024 End: 10-13-2024 Bamboo flowsheet Isabella Powell DPM Work Phone: [facility] Start: 10-13-2024 End: 10-13-2024 Patient encounter procedure Isabella Powell DPM Work Phone: [facility] Comment on above: Dermatophytosis of n ail (Primary Dx); Dystrophic nail; Diabetic polyneuropathy associated with type 2 diabetes mellitus ([facility]); Encounter for long-term (current) use of insulin ([facility]) Start: 10-13-2024 End: 10-13-2024 ambulatory ISABELLA Florecita NGUYEN Not Available Start: 08-07-2024 End: 08-07-2024 Orders [...] encounter procedure Blake Ng MD Work Phone: [facility] [place] Work Phone: Start: 08-06-2024 End: 08-06-2024 ambulatory Blake Ng MD Work Phone: [facility] Work Phone: Start: 08-05-2024 End: 08-05-2024 [...] hyperglycemia, with long-term current use of insulin ([facility]); Benign essential hypertension ([facility]); Encounter for long-term current use of medication Start: 08-05-2024 End: 08-05-2024 Patient encounter procedure Blake Ng MD Work Phone: [facility] Work Phone: Start: 08-05-2024 End: 08-05-2024 ambulatory BLAKE NG Not Available Start: 07-21-2024 End: 07-21-2024 Bamboo flowsheet Symone Mcmahon MD Work Phone: [facility] Start: 07-21-2024 End: 07-21-2024 Bamboo flowsheet Symone Mcmahon MD Work Phone: [facility] Start: 07-21-2024 End: 07-21-2024 Office outpatient visit 15 minutes Symone Mcmahon MD Work Phone: [facility] Comment on above: Melanocytic nevus of trunk (Primary Dx); Seborrheic keratosis; Lentigines; Actinic keratosis; Capillary angioma; Melanocytic nevus of face, other location; Epidermal inclusion cyst; Nummular eczema Start: 07-21-2024 End: 07-21-2024 ambulatory SYMONE MCMAHON Not Available Start: 07-07-2024 End: 07-07-2024 Bamboo flowsheet Isabella Powell DPM Work Phone: [facility] Start: 07-07-2024 End: 07-07-2024 Bamboo flowsheet Isabella Powell DPM Work Phone: [facility] Start: 07-07-2024 End: 07-07-2024 Patient encounter procedure Isabella Powell DPM Work Phone: [facility] Comment on above: Dermatophytosis of n ail (Primary Dx); Dystrophic nail; Diabetic polyneuropathy associated with type 2 diabetes mellitus (CMS/HCC); 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 Start: 06-20-2024 End: 06-20-2024 Bamboo flowsheet Blake Ng MD Work Phone: [facility] Start: 06-20-2024 End: 06-20-2024 Office outpatient visit 15 minutes Blake Ng MD Work Phone: [facility] Comment on above: Acute non-recurrent maxillary sinusitis (Primary Dx); Type 2 diabetes mellitus with hyperglycemia, with long-term current use of insulin ([facility]) Start: 06-20-2024 End: 06-20-2024 ambulatory BLAKE NG Not Available Start: 05-15-2024 End: 05-15-2024 Bamboo flowsheet Isabella Powell DPM Work Phone: [facility] Start: 05-15-2024 End: 05-15-2024 Bamboo flowsheet Isabella Powell DPM Work Phone: [facility] Start: 05-15-2024 End: 05-15-2024 ambulatory ISABELLA POWELL Not Available Start: 05-15-2024 End: 05-15-2024 Office outpatient visit 15 minutes Isabella Powell DPM Work Phone: [facility] Comment on above: Type 2 diabetes enmanuel itus with Charcot joint of left foot ([facility]/HCC) (Primary Dx); Diabetic polyneuropathy associated with type 2 diabetes mellitus ([facility]/HCC); Swelling of left foot; Encounter for long-term (current) use of insulin ([facility]) Start: 05-15-2024 End: 05-15-2024 ambulatory ISABELLA POWELL Not Available Start: 04-21-2024 End: 04-21-2024 Telephone encounter Isabella Powell DPM Work Phone: [facility] Comment on above: Advice Only Start: 04-14-2024 End: 04-14-2024 ambulatory ISABELLA POWELL Not Available Start: 04-14-2024 End: 04-14-2024 ambulatory ISABELLA POWELL Not Available Start: 04-14-2024 End: 04-14-2024 Office outpatient visit 25 minutes Isabella Powell DPM Work Phone: [facility] Comment on above: Type 2 diabetes enmanuel itus with Charcot joint of left foot (CMS/HCC) (Primary Dx); Diabetic polyneuropathy associated with type 2 diabetes mellitus (CMS/HCC); Swelling of left foot; Encounter for long-term (current) use of insulin (CMS/HCC) Start: 04-14-2024 End: 04-14-2024 Bamboo flowsheet Isabella Powell DPM Work Phone: [facility] Start: 04-14-2024 End: 04-14-2024 Bamboo flowsheet Isabella Powell DPM Work Phone: [facility] Start: 04-06-2024 End: 04-07-2024 Refill Blake Ng MD Work Phone: [facility] Comment on above: Type 2 diabetes enmanuel itus with hyperglycemia, with long-term current use of insulin ([facility]) (Primary Dx) Start: 04-02-2024 End: 04-02-2024 Bamboo flowsheet Isabella Powell DPM Work Phone: [facility] Start: 04-02-2024 End: 04-02-2024 Bamboo flowsheet Isabella Powell DPM Work Phone: [facility] Start: 04-02-2024 End: 04-02-2024 Patient encounter procedure Isabella Powell DPM Work Phone: [facility] Comment on above: Diabetic polyneuropa thy associated with type 2 diabetes mellitus (CMS/HCC) (Primary Dx); Encounter for long-term (current) use of insulin (CMS/HCC) Start: 04-02-2024 End: 04-02-2024 ambulatory ISABELLA POWELL Not Available Start: 04-01-2024 End: 04-01-2024 Bamboo flowsheet Isabella Powell DPM Work Phone: [facility] Start: 04-01-2024 End: 04-01-2024 Bamboo flowsheet Isabella Powell DPM Work Phone: [facility] Start: 03-26-2024 End: 03-26-2024 Postop follow up visit related to original px Isabella Powell DPM Work Phone: [facility] Comment on above: Diabetic polyneuropa thy associated with type 2 diabetes mellitus (CMS/HCC) (Primary Dx); Encounter for long-term (current) use of insulin (CMS/HCC) Start: 03-26-2024 End: 03-26-2024 ambulatory ISABELLA POWELL Not Available Start: 03-26-2024 End: 03-26-2024 Bamboo flowsheet Isabella Powell DPM Work Phone: [facility] Start: 03-26-2024 End: 03-26-2024 Bamboo flowsheet Isabella Powell DPM Work Phone: [facility] Start: 03-24-2024 End: 03-24-2024 Bamboo flowsheet Isabella Powell DPM Work Phone: [facility] Start: 03-24-2024 End: 03-24-2024 Bamboo flowsheet Isabella Powell DPM Work Phone: [facility] Start: 03-24-2024 End: 03-24-2024 Patient encounter procedure Isabella Powell DPM Work Phone: [facility] Comment on above: Dermatophytosis of n ail (Primary Dx); Dystrophic nail; Diabetic polyneuropathy associated with type 2 diabetes mellitus (CMS/HCC); Encounter for long-term (current) use of insulin (CMS/HCC) Start: 03-24-2024 End: 03-24-2024 ambulatory ISABELLA POWELL Not Available Start: 01-28-2024 End: 01-28-2024 ambulatory BLAKE NG Not Available Start: 01-25-2024 End: 01-25-2024 Patient encounter procedure MD Blake Ng Work Phone: [facility] [place] Work Phone: Start: 01-25-2024 End: 01-25-2024 ambulatory MD Blake Ng Work Phone: [facility] Work Phone: Start: 01-10-2024 End: 01-10-2024 ambulatory MD Blake Ng Work Phone: [facility] Work Phone: Start: 01-10-2024 End: 01-10-2024 Patient encounter procedure MD Blake Ng Work Phone: [facility] Work Phone: Start: 01-10-2024 Registered Recurring MD Blake arredondo Work Phone: [facility] Work Phone: Start: 12-28-2023 End: 12-28-2023 Patient encounter procedure Jermaine JENSEN [facility] Start: 12-19-2023 End: 12-19-2023 ambulatory MD Blake Ng Work Phone: [facility] Work Phone: Start: 12-19-2023 End: 12-19-2023 Patient encounter procedure MD Blake Ng Work Phone: [facility] [place] Work Phone: Start: 09-18-2023 End: 09-18-2023 ambulatory MD Blake Ng Work Phone: [facility] Work Phone: Start: 09-18-2023 End: 09-18-2023 Patient encounter procedure MD Blake Ng Work Phone: [facility] Work Phone: Start: 09-18-2023 Registered Recurring MD Blake arredondo Work Phone: [facility] Work Phone: Start: 08-22-2023 End: 08-22-2023 ambulatory MD Blake Ng Work Phone: [facility] Work Phone: Start: 08-22-2023 End: 08-22-2023 Patient encounter procedure MD Blake Ng Work Phone: [facility] Work Phone: Start: 07-19-2023 Bamboo flowsheet Symone jauregui MD Work Phone: [facility] Start: 07-19-2023 Bambeno flowsheet Symone jauregui MD Work Phone: [facility] Start: 07-19-2023 End: 07-19-2023 Office outpatient visit 25 minutes Symone Mcmahon MD Work Phone: [facility] Comment on above: Nummular eczema (Miranda toledo Dx); Seborrheic keratosis; Melanocytic nevus of trunk; Lentigines; Angioma of skin; History of actinic keratoses Start: 06-13-2023 Registered Recurring MD Blake arredondo Work Phone: [facility] Acute Work Phone: Start: 12-13-2022 End: 12-13-2022 ambulatory MD Blake Ng Work Phone: [facility] Work Phone: Start: 12-13-2022 End: 12-13-2022 Registered Recurring MD Blake Ng Work Phone: [facility] Work Phone: Start: 12-05-2022 End: 12-05-2022 ambulatory MD Blake Ng Work Phone: [facility] Work Phone: Start: 12-05-2022 End: 12-05-2022 Patient encounter procedure MD Blake Ng Work Phone: [facility] [place] Work Phone: Start: 09-11-2022 End: 09-11-2022 ambulatory MD Blake Ng Work Phone: [facility] Work Phone: Start: 09-11-2022 End: 09-11-2022 Registered Recurring MD Blake Ng Work Phone: [facility] Work Phone: Start: 07-27-2022 End: 07-28-[address] BLAKE NG Facility: Start: 07-12-2022 End: 07-12-2022 ambulatory MD Blake Ng Work Phone: [facility] Work Phone: Start: 07-12-2022 End: 07-12-2022 Registered Recurring MD Blake Ng Work Phone: [facility] Work Phone: Start: 05-15-2022 End: 05-15-2022 Admission to same day surgery center MD Blake Ng Work Phone: [facility] [place] Start: 05-15-2022 End: 05-15-2022 ambulatory MD Blake Ng Work Phone: [facility] Work Phone: Start: 05-08-2022 End: 05-08-2022 ambulatory MD Blake Ng Work Phone: [facility] Work Phone: Start: 05-08-2022 End: 05-08-2022 Patient encounter procedure MD Blake Ng Work Phone: [facility] Start: 05-08-2022 Registered Recurring MD Blake arredondo Work Phone: [facility] Start: 04-27-2022 End: 04-27-2022 ambulatory MD Blake Ng Work Phone: [facility] Work Phone: Start: 04-27-2022 End: 04-27-2022 Registered Recurring MD Blake Ng Work Phone: [facility] Start: 04-14-2022 End: 04-14-2022 Patient encounter procedure Jermaine JENSEN [facility] Start: 03-28-2022 End: 03-28-2022 Patient encounter procedure Jermaine JENSEN [facility] Start: 03-01-2022 End: 03-01-2022 Patient encounter procedure MD Jermaine Jensen Work Phone: [facility] [place] Start: 01-17-2022 End: 01-18-[address] BLAKE NG Facility:[facility] Start: 12-23-2021 End: 12-23-2021 Patient encounter procedure Jermaine JENSEN [facility] Start: 12-16-2021 End: 12-17-[address] JERMAINE JENSEN . Facility:[facility] Start: 10-25-2021 End: 10-25-2021 Patient encounter procedure Haroldo Sebastian MD Work Phone: Ophthalmology Comment on above: Iris nevus, left (Pr imary Dx); Dislocation of intraocular lens, sequela Start: 09-10-2017 End: 09-11-2017 Ambulatory DEFAULT PHYSICIAN Facility:[facility] Procedures Date Procedure Procedure Detail Performing Clinician Start: 01-12-2025 NM CARMEN PERF SPECT RE ST STR Blake Ng MD Work Phone: Start: 12-30-2024 CT ABDOMEN/PELVIS WO CONT Generic External Data Provider Start: 12-30-2024 ALL BASIC METABOLIC PANEL Generic External Data Provider Start: 12-30-2024 ECG 12-LEAD Generic Ex ternal Data Provider Start: 12-24-2024 Supine abdominal X-ray Blake Ng MD Work Phone: Start: 10-20-2024 Radex elbow complete minimum 3 views Jaycob Dill DO Work Phone: Start: 08-06-2024 Urine albumin quantitative Blake Ng MD Work Phone: Start: 08-06-2024 Basic metabolic pane l calcium total Blake Ng MD Work Phone: Start: 07-21-2024 CRYOTHERAPY SKIN LESION Symone Mcmahon MD Work Phone: Start: 05-15-2024 Radex foot [...] Presence of right artificial shoulder joint Symone Mcmahon MD Work Phone: Start: 12-05-2022 Diagnostic radiograp hy of abdomen MD Blake Ng Work Phone: Start: 07-11-2022 Mixed beam external beam radiation therapy Jermaine JENSEN Start: 05-18-2022 MR prostate wo/w con MD Blake Ng Work Phone: Start: 05-15-2022 Injection of substance MD Blake Ng Work Phone: Start: 05-15-2022 Colonoscopy MD Blake gamez Work Phone: Start: 03-28-2022 MRI-US fusion guided transperineal biopsy of prostate Jermaine JENSEN Start: 03-01-2022 MR prostate wo/w con MD Blake Ng Work Phone: Start: 12-16-[address] BLAKE ARREDONDO Comment on above: Performed By: #### P SAD #### [facility] [address] [place] [address] Dr. Sary Elkins Start: 10-25-2021 Oph us dx ant sgm us immersion b-scan/hr biom Haroldo Sebastian MD Work Phone: Start: 10-25-2021 End: 10-25-2021 Xtrnl ocular photog w/i&r docok medical progre Haroldo Sebastian MD Work Phone: Start: 05-13-2018 Arthroplasty of shoulder Jermaine JENSEN Comment on above: REVERSE RIGHT TOTAL SHOULDER ARTHROPLASTY, BICEP TENODESIS Start: 10-13-2008 Lithotripsy Jermaine MEAD Comment on above: ESWL * 08/13/08, , 10/22/08, 11/26/08, 10/01/08 12/26/12 * Left ESWL Dissection tonsillec rubén and adenoidectomy Jermaine JENSEN knee arthroscopy wit th meniscus repair 5 Jermaine JENSEN Comment on above: left Ostectomy of calcane us for spur Jermaine JENSEN Comment on above: THINKS IT WAS LEFT Placement of stent Jermaine JULIEN Comment on above: Cysto, stent placeme nt * 10/16/08, 08/10/08 Removal of stent Jermaine PATTEN Comment on above: Cysto, stent removal * 09/01/08 Renal lithotripsy Jermaine MEAD Comment on above: X5 Tonsillectomy Jermaine JENSEN Plan of Treatment Date Care Activity Detail Author Start: 08-14-2025 Glaucoma screening Diabetes: R etinopathy Screening [facility] Start: 08-06-2025 Urine screening for protein Diabetes: Urine Protein Screening [facility] Start: 08-05-2025 Medicare Annual Wellness (AWV) Medicare Annual Wellness (AWV) [facility] Start: 07-28-2025 End: 07-28-2025 Patient encounter procedure [facility] Start: 04-28-2025 End: 04-28-2025 Patient encounter procedure 04/28/2025 9:15 AM EST Procedure Visit [facility] [address] [place] [phone] Isabella Powell DPM [address] [place] [address] [facility] Start: 02-09-2025 Influenza vaccination Influenza Vacc ine (#1) [facility] Start: 02-03-2025 Hemoglobin A1c measurement Diabetes: Hemoglobin A1C [facility] Start: 02-03-2025 End: 02-03-2025 Patient encounter procedure 02/03/2025 10:30 AM EDT Office Visit [facility] [address] [place] [phone] Blake Ng MD [address] [place] [phone] [facility] Start: 01-26-2025 End: 01-26-2025 Patient encounter procedure [facility] Comment on above: Arrived Start: 01-02-2025 End: 01-02-2027 NM Heart Perfusion W single state of exercise Stress test with myocardial perfusion Cardiac Nuclear Medicine Routine Other chest pain Abnormal EKG Expected: 01/02/2025 (Approximate), Expires: 01/02/2027 [facility] Work Phone: Comment on above: Expected: 01/02/2025 (Approximate), Expires: 01/02/2027 Start: 01-02-2025 End: 01-02-2025 Patient encounter procedure 01/02/2025 11:45 AM EDT [address] [facility] MARISSA HURST [address] [place] [phone] Blake Ng MD [address] [place] [phone] Arrived [facility] Comment on above: Arrived Start: 10-13-2024 End: 10-13-2024 Patient encounter procedure [facility] Comment on above: Arrived Start: 08-07-2024 Urine screening for protein Diabetes: Urine Protein Screening [facility] Start: 08-06-2024 [facility] Start: 08-05-2024 End: 08-05-2025 Basic metabolic 1998 panel - Serum or Plasma Basic metabolic panel Lab Routine Encounter for long-term current use of medication Expected: 08/05/2024 (Approximate), Expires: 08/05/2025 [facility] Comment on above: Expected: 08/05/2024 (Approximate), Expires: 08/05/2025 Start: 08-05-2024 End: 08-05-2025 Hemoglobin A1c/Hemoglobin.total in Blood Hemoglobin A1c Lab Routine Type 2 diabetes mellitus with hyperglycemia, with long-term current use of insulin ([facility]) Expected: 08/05/2024 (Approximate), Expires: 08/05/2025 [facility] Work Phone: Comment on above: Expected: 08/05/2024 (Approximate), Expires: 08/05/2025 Start: 08-05-2024 End: 08-05-2025 Magnesium [Mass/volume] in Serum or Plasma Magnesium Lab Routine Encounter for long-term current use of medication Expected: 08/05/2024 (Approximate), Expires: 08/05/2025 [facility] Comment on above: Expected: 08/05/2024 (Approximate), Expires: 08/05/2025 Start: 08-05-2024 End: 08-05-2025 Microalbumin/Creatinine panel in random Urine Microalbumin / creatinine, urine ratio Lab Routine Type 2 diabetes mellitus with hyperglycemia, with long-term current use of insulin ([facility]) Expected: 08/05/2024 (Approximate), Expires: 08/05/2025 [facility] Comment on above: Expected: 08/05/2024 (Approximate), Expires: 08/05/2025 Start: 08-05-2024 End: 08-05-2024 Patient encounter procedure [facility] Comment on above: Arrived Start: 08-01-2024 Hemoglobin A1c measurement Diabetes: Hemoglobin A1C [facility] Start: 07-21-2024 End: 07-21-2024 Patient encounter procedure [facility] Comment on above: Arrived Start: 07-16-2024 Glaucoma screening Diabetes: R etinopathy Screening [facility] Start: 07-07-2024 End: 07-07-2024 Patient encounter procedure [facility] Comment on above: Arrived Start: 06-20-2024 End: 06-20-2024 Patient encounter procedure 06/20/2024 9:15 AM EST Office Visit [facility] [address] [place] [address] Blake Ng MD [address] [place] [address] [facility] Start: 05-15-2024 End: 05-15-2024 Patient encounter procedure [facility] Comment on above: Arrived Start: 05-01-2024 Hemoglobin A1c measurement Diabetes: Hemoglobin A1C [facility] Start: 04-24-2024 End: 04-24-2024 Patient encounter procedure 04/24/2024 9:30 AM EST Office Visit [facility] [address] [place] [address] Isabella Powell DPM [address] [place] [address] [facility] Start: 04-23-2024 End: 04-23-2024 Patient encounter procedure 04/23/2024 11:15 AM EST [facility] [address] [place] [address] Isabella Powell DPM [address] [place] [address] [facility] Start: 04-02-2024 End: 04-02-2024 Patient encounter procedure 04/02/2024 1:30 PM EDT Office Visit [facility] [address] [place] [address] Isabella Powell DP [address] [place] [address] Arrived [facility] Comment on above: Arrived Start: 03-26-2024 End: 03-26-2024 Patient encounter procedure 03/26/2024 2:30 PM EDT Office Visit [facility] [address] [place] [address] Isabella Powell DPHeladio [address] [place] [address] Arrived [facility] Comment on above: Arrived Start: 03-24-2024 End: 03-24-2024 Patient encounter procedure 03/24/2024 8:30 AM EDT Procedure Visit [facility] [address] [place] [address] Isabella Powell DPM [address] [place] [address] Arrived [facility] Comment on above: Arrived Start: 02-10-2024 Influenza vaccination Influenza Vacc ine (#1) [facility] Start: 08-22-2023 Radionuclide myocard ial perfusion stress study NM carmen perf SPECT rest & str [facility] Start: 08-22-2023 SPECT Heart perfusio n at rest and W stress and W radionuclide IV [facility] Start: 08-22-2023 End: 08-22-2023 Patient encounter procedure 08/22/2023 11:00 AM EDT Procedure Visit [facility] [address] [place] [phone] Isabella Powell DPM [address] [place], [place] [phone] [facility] Start: 07-19-2023 End: 07-19-2023 Patient encounter procedure 07/19/2023 9:45 AM EST Office Visit [facility] [address] [place] [address] Symone Mcmahon MD [address] [place] [address] [facility] Comment on above: Arrived Start: 05-15-2022 End: 05-15-2022 [facility] Start: 05-15-2022 [facility] [facility] Start: 03-01-2022 MR Prostate WO and W contrast IV [facility] Work Phone: Start: 03-01-2022 MR prostate wo/w con MR prostate wo/ w con [facility] Start: 02-09-2022 Influenza vaccination INFLUENZ A (Season Ended) [facility] Start: 06-11-2021 ADVANCE DIRECTIVE DISCUSSION ADVANCE DIRECTIVE DISCUSSION [facility] Start: 08-29-2020 DIABETES SCREEN DIABETES SCREEN [facility] Start: 08-08-2018 Hemoglobin A1c measurement Diabetes: Hemoglobin A1C [facility] Start: 2010 PNEUMOVAX AGE 65 AND OVER WITH 5YR LOOKBACK (#1) PNEUMOVAX AGE 65 AND OVER WITH 5YR LOOKBACK (#1) [facility] Start: 1995 SHINGRIX VACCINE (1 of 2) SHINGRIX VACCINE (1 of 2) [facility] Start: 1964 Urine microalbumin profile DTAP,TDAP,TD (1 - Tdap) [facility] Start: 1964 Urine screening for protein Diabetes: Urine Protein Screening [facility] Start: 1963 HEPATITIS C SCREENING HEPATITIS C SC REENING [facility] Start: 1957 Adult depression screening assessment DEPRESSION SCREENING [facility] Start: 1955 Glaucoma screening Diabetes: R etinopathy Screening [facility] Start: 1950 COVID-19 VACCINE (#1) COVID-19 VACCI NE (#1) [facility] Start: 1945 Medicare Annual Wellness (AWV) Medicare Annual Wellness (AWV) [facility] Computed tomography for radiotherapy planning [facility] Glucose measurement estimated from glycated hemoglobin [facility] Hemoglobin A1c/Hemoglobin.total in Blood [facility] MR Prostate WO and W contrast IV [facility] Immunizations Immunization Date Immunization Notes Care Provider Imani gold 04-30-2024 SARS-COV-2 (COVID-19 ) vaccine, mRNA, spike protein, LNP, PF, 50 mcg/0.5 mL Isabella Powell DPM Work Phone: [facility] 04-30-2024 Seasonal trivalent influenza vaccine, adjuvanted, preservative free Isabella Powell DPM Work Phone: [facility] 04-30-2024 influenza virus vacc ine, unspecified formulation Isabella Powell DPM Work Phone: [facility] 05-07-2023 Influenza, Seasonal, Quadrivalent, Adjuvanted Symone Mcmahon MD Work Phone: [facility] 05-07-2023 SARS-COV-2 (COVID-19 ) vaccine, mRNA, spike protein, LNP, PF, 50 mcg/0.5 mL Symone Mcmahon MD Work Phone: [facility] 05-07-2023 influenza virus vacc ine, unspecified formulation Isabella Beny DPM Work Phone: [facility] 03-29-2022 COVID-19 mRNA Bivale nt Booster (Pfizer) MD Blake Ng Work Phone: [facility] Comment on above: Result Comment: 2022: [id number] 03-29-2022 influenza virus vacc ine, unspecified formulation Symone Mcmahon MD Work Phone: [facility] 03-15-2021 COVID-19 mRNA, Comir jaya (Pfizer) MD Blake Ng Work Phone: [facility] Comment on above: Result Comment: 2022: [id number] 03-02-2021 influenza virus vacc ine, unspecified formulation Jermaine JENSEN [facility] 03-02-2021 Influenza, High-dose Seasonal, Quadrivalent, Preservative Free Symone Mcmahon MD Work Phone: [facility] 08-11-2020 COVID-19 mRNA, Comir jaya (Pfizer) MD Blake Ng Work Phone: [facility] 07-26-2020 SARS-CoV-2 (COVID-19 ) mRNA BNT-162b2 vax Jermaine JENSEN [facility] 07-14-2020 COVID-19 mRNA, Comir jaya (Pfizer) MD Blake Ng Work Phone: [facility] 04-27-2020 pneumococcal polysaccharide vaccine, 23 valent Symone Mcmahon MD Work Phone: [facility] 04-05-2020 influenza, injectabl e, quadrivalent, preservative free Symone Mcmahon MD Work Phone: [facility] 02-24-2020 influenza virus vacc ine, unspecified formulation Jermaine JENSEN [facility] 02-24-2020 Influenza, High-dose Seasonal, Quadrivalent, Preservative Free Symone Mcmahon MD Work Phone: [facility] 03-26-2019 influenza virus vacc ine, unspecified formulation Jermaine JENSEN [facility] 03-26-2019 pneumococcal conjuga te vaccine, 13 valent Symone Mcmahon MD Work Phone: [facility] 03-26-2019 Seasonal trivalent influenza vaccine, adjuvanted, preservative free Symone Mcmahon MD Work Phone: [facility] 03-11-2019 influenza, high dose seasonal, preservative-free Symone Mcmahon MD Work Phone: [facility] 03-11-2019 pneumococcal polysaccharide vaccine, 23 valent Symone Mcmahon MD Work Phone: [facility] 03-18-2018 influenza virus vacc ine, unspecified formulation Jermaine JENSEN [facility] 03-18-2018 influenza, injectabl e, quadrivalent, preservative free Symone Mcmahon MD Work Phone: [facility] 03-21-2017 influenza virus vacc ine, unspecified formulation Jermaine JENSEN [facility] 03-21-2017 influenza, high dose seasonal, preservative-free Symone Mcmahon MD Work Phone: [facility] 03-12-2017 influenza virus vacc ine, unspecified formulation Jermaine JENSEN [facility] 03-12-2017 influenza, injectabl e, quadrivalent, preservative free Symone Mcmahon MD Work Phone: [facility] 03-30-2016 influenza virus vacc ine, unspecified formulation Jermaine JENSEN [facility] 03-30-2016 influenza, high dose seasonal, preservative-free Symone Mcmahon MD Work Phone: [facility] 02-22-2015 influenza virus vacc ine, unspecified formulation Jermaine JENSEN [facility] 02-22-2015 influenza, high dose seasonal, preservative-free Symone Mcmahon MD Work Phone: [facility] 04-01-2014 influenza virus vacc ine, unspecified formulation Jermaine JENSEN [facility] 04-01-2014 influenza, seasonal, injectable Symone Mcmahon MD Work Phone: [facility] 03-23-2014 pneumococcal polysaccharide vaccine, 23 valent Symone Mcmahon MD Work Phone: [facility] 05-19-2013 influenza virus vacc ine, unspecified formulation Jermaine JENSEN [facility] 05-19-2013 influenza, seasonal, injectable Symone Mcmahon MD Work Phone: [facility] Payers Date Payer Category Payer Unknown 2022 Unknown [id number] 2022 Self-pay [id number] 2013 Private Health Insurance [facility] AARP SUPPLEMENT [id number] 2013-Present [phone] [address] [place] [address] Indemnity [id number] 2011 Private Health Insurance [id number] 2011 Unknown [id number] 2010 Medicare MEDICARE MEDICAR E A AND B [id number] 2010-Present [phone] [address] [address] [place] [address] Medicare [id number] 2010 Medicare [id number] [id number] .[id number] 1959 Medicare [id number] 1959 Unknown [id number] 1945 Unknown [id number] 2.16.840.1.113177.3.579.2 .593 1945 Unknown [id number] 2.16.840.1.070440.3.579.2 .593 1945 Unknown [id number] 2.16.840.1.952366.3.579.2 .593 1945 Unknown [id number] 2.16.840.1.382194.3.579.2 .727 1945 Unknown [id number] 2.16.840.1.045496.3.579.2 .727 1945 Unknown [id number] 2.16.840.1.342642.3.579.2 .1259 1945 Unknown [id number] 2.16.840.1.502076.3.579.2 .1259 1945 Unknown [id number] 2.16.840.1.737715.3.579.2 .1259 1945 Unknown [id number] 2.16.840.1.064175.3.579.2 .1259 1945 Unknown [id number] 2.16.840.1.633838.3.579.2 .1258 1945 Unknown [id number] 2.16.840.1.048372.3.579.2 .1258 1945 Unknown [id number] 2.16.840.1.401259.3.579.2 .1258 1945 Unknown [id number] 2.16.840.1.882156.3.579.2 .1258 1945 Unknown [id number] 2.16.840.1.710189.3.579.2 .1258 1945 Unknown [id number] 2.16.840.1.701470.3.579.2 .1258 1945 Unknown [id number] 2.16.840.1.265383.3.579.2 .1258 1945 Unknown [id number] 2.16.840.1.627566.3.579.2 .1258 1945 Unknown [id number] 2.16.840.1.422492.3.579.2 .1258 1945 Unknown [id number] 2.16.840.1.650375.3.579.2 .1258 1945 Unknown [id number] 2.16.840.1.193984.3.579.2 .1258 1945 Unknown [id number] 2.16.840.1.155959.3.579.2 .1258 1945 Unknown [id number] 2.16.840.1.875104.3.579.[address] [facility] Health Claims [id number] Unknown [id number] 2.16.840.1.116283.3.579.2 .531 Unknown [id number] 2.16.840.1.968948.3.579.2 .531 Unknown [id number] 2.16.840.1.113770.3.579.2 .531 Unknown [id number] 2.16.840.1.265498.3.579.2 .531 Social History Date Type Detail Facility Start: 06-18-2018 End: 12-25-2022 Tobacco smoking status NHIS Never smoked tobacco [facility] Start: 06-18-2018 Tobacco use and exposure Smoke less tobacco non-user [facility] Start: 10-25-2021 End: 01-26-2025 Alcohol intake Current drinker of alcohol (finding) [facility] Start: 06-18-2018 History SDOH Alcohol Comment minimal [facility] Start: 1945 Sex Assigned At Not on file [facility] Tobacco smoking status No Smokin g Status Entered [facility] Start: 04-12-2023 End: 01-22-2024 Sex Assigned At Male [facility] Start: 1945 Sex Assigned At Male [facility] Tobacco smoking status [facility] Start: 04-12-2023 End: 01-22-2024 History of Social function [facility] Frequency of Alcohol Consumption Not on file [facility] How many standard dr inks containing alcohol do you have on a typical day? 1 or 2 [facility] How often do you hav e 6 or more drinks on 1 occasion? Weekly [facility] Start: 12-24-2022 Alcohol Comment Caffeine intak e: 1-2 cups per day, coffee, soda [facility] Do you belong to any clubs or organizations such as sabianism groups, unions, fraternal or athletic groups, or school groups? No [facility] Are you now , , , , never or living with a partner? [facility] How often to you hav e a drink containing alcohol? Monthly or less [facility] How often do you hav e 6 or more drinks on 1 occasion? Never [facility] (I/We) worried wheth er (my/our) food would run out before (I/we) got money to buy more. Never true [facility] Start: 12-27-2011 End: 08-07-2024 Sex Male (finding) [facility] How often do you nee d to have someone help you when you read instructions, pamphlets, or other written material from your doctor or pharmacy [SILS] Often [facility] Medical Equipment Procedure Code Equipment Code Equipment Origin al Text Equipment Identifier Dates Injection, hydrogel spacer Radiotherapy protection spacer [id number] FDA Start: 05-15-2022 Injection, hydrogel spacer Imaging lesion localization marker, implantable [id number] FDA Start: 05-15-2022 1 each by In Vit ro route in the morning and 1 each in the evening and 1 each before bedtime. [id number] Start: 07-09-2023 1 each in the mo rning and 1 each in the evening and 1 each before bedtime. [id number] Start: 07-09-2023 GNP Insulin Syri nges 31Gx5/16 31G X 5/16 0.3 ML misc [id number] Start: 07-10-2023 USE DIRECTED to test BLOOD SUGAR THREE TIMES DAILY [id number] Start: 10-17-2023 1 each by Other route in the morning and 1 each in the evening and 1 each before bedtime. [id number] Start: 09-06-2023 Use as needed [id number] Start: 10-01-2023 As needed [id number] Start: 10-17-2023 Use as needed [id number] Start: 09-03-2024 USE DIRECTED to test BLOOD SUGAR IN THE MORNING, IN THE EVENING and BEFORE bedtime [id number] Start: 09-11-2024 USE DIRECTED to test BLOOD SUGAR THREE TIMES DAILY (IN THE MORNING, IN THE EVENING, and BEFORE bedtime) [id number] Start: 09-11-2024 As needed [id number] Start: 12-04-2024 Goals Date Patient Goal Desired Activity /State Functional Status Date Assessment Result Facility 12-28-2023 Functional Status N/A [facility] 04-14-2022 Functional Status N/A [facility] 12-23-2021 Functional Status N/A [facility] Clinical Notes 10-25-2021 to 01-26-2025 Isabella Powlel DPM - 01/26/2025 9:15 AM EDTPatient InstructionsBlake Ng MD - 01/02/2025 12:56 PM EDTMbenny Ng MD - 01/02/2025 12:56 PM EDJennifer Ng MD - 01/02/2025 12:55 PM EDT Note Date & Type Note Facility 01-26-2025 History of Present illness Narrative Images from the original note were not included. Subjective Patient ID: Zach Chamorro is a 79 y.o. male who presents for Nail care (Zach Chamorro is a 79 y.o. male who presents for DM Foot Care (PT is here today with his spouse for diabetic foot care, he states the nails are becoming painful for him/BS: 104 A1C: 7.4/LV Dr. Ng 01-02-2025/SS: 12). HPI HPI Onychomycosis/Toenail Fungus: Patient [...] comorbidities. Polypharmacy. Aspirin therapy. type II diabetes/IDDM. Diabetic peripheral neuropathy. Toenail deformity. Shoe and/or digital trauma [...] 5/16 1 mL misc, As needed, Disp: 100 each, Rfl: 3 lisinopril 20 MG tablet, Take [...] 1 tablet (50 mg) by mouth Daily, Disp: 90 tablet, Rfl: 3 Multiple Vitamin (Multi Vitamin) [...] for prostate REVERSE TOTAL SHOULDER ARTHROPLASTY Right 2017 JAB SHOULDER SURGERY Right 05/13/2018 TONSILLECTOMY VASECTOMY [...] absent over the forefoot and digital areas. SEMMES-AMRAND 5.07 MONOFILAMENT: unable to localize multiple points [...] understanding. Isabella Powell DPM documented in this encounter [facility] 01-26-2025 Instructions Isabella Powell DPM - 01/26/2025 9:15 AM EDT As noted documented in this encounter [facility] 01-19-2025 Note [place] [facility] - [facility] Subjective Zach Chamorro is a 79 y.o. 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 ([facility]) Dyslipidemia Elevated PSA Encounter for long-term current [...] (transient ischemic attack) Type 1 diabetes mellitus ([facility]) Transient cerebral ischemia Type 2 diabetes mellitus with diabetic microalbuminuria, with long-term current use of insulin ([facility]) Type 2 diabetes mellitus with hyperglycemia, with long-term current use of insulin ([facility]) Family History Problem Relation Name Age of Onset Stroke Mother Social History Tobacco Use Smoking status: Never Smokeless tobacco: Never Substance Use Topics Alcohol use: Yes Comment: occasional Drug use: Never HPI This is a 79-year-old man who is referred to me by Dr. Blake Ng his PCP due to abnormal stress test. [...] kg (196 lb) SpO2 98% BMI 25.16 kg/m??? Smoking Status Never BSA 2.15 m??? Physical Exam Constitutional: Appearance: He is well-developed. [...] Rfl: cyanocobalamin, vitamin B-12, 1,000 mcg tablet extend (more content not included)... [facility] 01-02-2025 History of Present illness Narrative Associated [...] At times will occur after using riding project specialist. Notice overall increased fatigue over past few [...] myocardial perfusion Thrombocytopenia Mild and stable since 2018. Likely related to aspirin. Abnormal EKG EKG with T changes but present on EKG in 2023 prior to stress test. Likely benign. Relevant Orders Stress test with myocardial perfusion documented in this encounter [facility] 12-29-2024 Hospital Discharge instructions [...] if anything looks unusual. Males with a hdgivn-wyia-brykqz risk for skin cancer may want to see a senior technical specialist (plush dresser) for an annual body check. Where to find more information [employer]: cancer.org Centers for Disease Control and Prevention: cdc.gov National Cancer [place]: cancer.gov Contact a health care provider if: [...] provider. Document Revised: 06/05/2023 Document Reviewed: 12/18/2022 [employer] Patient Education 2023 [employer]. Follow Up Care 12/28/2023 10:42:14 With:MIKEY ARORA, Jermaine Cano, URL Address: [facility] [address] , [place] [address]- When: Unknown [facility] 12-29-2024 Note Patient Education Oncology Cancer Screening [...] if anything looks unusual. Males with a zhlteb-fgqk-jmsndq risk for skin cancer may want to see a senior technical specialist (dermatologi (more content not included)... [facility] 11-04-2024 Evaluation note Diagnosis Onset Date Resolution Prostate cancer acute November 04, 2024 9:41am Prostate cancer acute November 04, 2024 9:41am [facility] Work Phone: 1(255) 836-806805-27-2025 [facility] [place] [address] Cancer Center Note Signed Patient: Zach Chamorro MR#: [id number] : 1945 Acct:[id number] Age/Sex: 79 / M Type: DEP AMB Date of Service: 11/04/24 Copies to: Blake Ng MD~ Assessment & Plan A/P (1) Prostate cancer: Plan: Return to clinic with ANALYSIS ENGINEER Apr 2025 with next PSA Assessment: 78-year-old male with 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 Patient [...] prostate Patient Instructions: follow-up in 6mo with ANALYSIS ENGINEER PSA in 6mo CHEMO PLAN No Active [...] No Known Allergies Allergy (Verified 09/18/23 10:05) [facility] Medical History Medical History (Updated 07/12/22 [...] Satisfied Source: Julius BARNEY, Josafat LOWERY Jr, O'Laporte MP, et al, and the Measurement Committeeof the [employer]. The [employer] symptom index for benign prostatic hyperplasia. J Urol. 1992; 148: 6267-7469. Copyright 1992 [employer] Over the past six months [...] APRN DD/ 0948 Signed By: 11/04/24 1012 [facility]05-12-2025 History of Present illness Narrative * Jaycob Dill DO - 10/20/2024 11:15 AM EDT Images [...] (Elemental) 400 mg, Oral, 2 times daily (0812) metFORMIN (GLUCOPHAGE) 1,000 mg, Oral, 2 times [...] for prostate REVERSE TOTAL SHOULDER ARTHROPLASTY Right 2017 JAB SHOULDER SURGERY Right 05/13/2018 TONSILLECTOMY VASECTOMY [...] - XR elbow 3+ views left Jaycob Dill D.O. Attestation This note was created using voice recognition through Frequency artificial coin4ce. documented in this encounterRipley County Memorial [id number] History of Present illness Narrative* Isabella Powell [...] for prostate REVERSE TOTAL SHOULDER ARTHROPLASTY Right 2017 JAB SHOULDER SURGERY Right 05/13/2018 TONSILLECTOMY VASECTOMY [...] understanding. Isabella Powell DPM documented in this encounterRipley County Memorial [id number] History of Present illness Narrative* Blake Ng [...] Items Addressed This Visit Benign essential hypertension ([facility]) Type 2 diabetes mellitus with hyperglycemia, with long-term current use of insulin ([facility]) Relevant Orders Hemoglobin A1c Microalbumin / creatinine, [...] (Atarax) 25 MG tablet documented in this encounterRipley County Memorial [id number] History of Present illness Narrative* Symone Mcmahon MD - 07/21/2024 9:45 AM EST Skin Check Location: Patient requests a skin examination from the waist up Dermatologic history: history of Actinic Keratosis Last visit: 1 year ago Follow up Diagnosis: Nummular eczema Location: ankles Last visit: 1 year ago Symptoms: red, scaly Status: stable Current treatment: Amlactin 12% lotion from machine feeder. Has TAC 0.1% cream but does not [...] limited to risks of scarring, darker or department supervisor pigmentary changes, recurrence, incomplete removal and infection. [...] Next Visit: 1 year [place] [id number] History of Present illness Narrative* Isabella Bernabe Bney, DPM - 07/07/2024 9:30 AM EST Images [...] for prostate REVERSE TOTAL SHOULDER ARTHROPLASTY Right 2017 JAB SHOULDER SURGERY Right 05/13/2018 TONSILLECTOMY Family [...] understanding. Isabella Powell DPM documented in this [facility]01-27-2025 Instructions* Patient Instructions* Isabella Powell DPM - 07/07/2024 9:30 AM EST As noted documented in this [facility]01-10-2025 History of Present illness Narrative* Blake Ng MD - 06/20/2024 10:05 AM ESTAssociated Problem(s): Type 2 diabetes mellitus with hyperglycemia, with long-term current use of in sulin ([facility]) BS stable and warned prednisone will raise [...] hyperglycemia, with long-term current use of insulin ([facility]) BS stable and warned prednisone will raise [...] (Levaquin) 750 MG tablet documented in this encounterRipley County Memorial HospitalIklxkvcdpn40-76-1878 History of Present illness Narrative* Isabella Powell, DPM - 05/15/2024 9:45 AM EST Images from the original note were not included. Subjective Patient ID: Zach Chamorro is a 78 y.o. male who presents for Follow-up (Established pt presents today for 1 month fuv for left foot pain and swelling, pt states has not been painful, but still swelling. PCP: Dr. Hernandez [facility] 01/28/24, A1C: 6.5, BS: 86, SS: 12). 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 Patient admits to essentially non-compliance with pneumatic cam walker immobilization; his spouse, Naila metzurs. Generally notes less swelling of the left [...] views left foot: Weight-bearing: DP, oblique, lateral: 12/0 10/2023: There are no distinct or interval changes [...] understanding. Isabella Powell DPM documented in this [facility]12-05-2024 Instructions* Patient Instructions* Isabella Powell DPM - 05/15/2024 9:45 AM EST As noted documented in this [facility]11-11-2024 Telephone encounter Note* Telephone Encounter - [facility] - 04/21/2024 10:57 AM EST Patient is keeping diabetic shoes [facility] [id number] Miscellaneous Notes* Telephone Encounter - Shayna Tobi - 04/21/2024 10:57 AM EST Patient is keeping diabetic shoes documented in this [facility]11-04-2024 History of Present illness Narrative* Isabella Powell DPM - 04/14/2024 2:45 PM EST Images from [...] syringe-needle U-100 (TechLITE Insulin Syringe) 31G X 10/24 1 mL misc, As needed, Disp: 100each, [...] understanding. Isabella Powell DPM documented in this [facility]11-04-2024 Instructions* Patient Instructions* Isabella Powell DPM - 04/14/2024 2:45 PM EST Instructions as noted documented in this [facility]10-23-2024 History of Present illness Narrative* Isabella Powell DPM - 04/02/2024 1:30 PM EDT Images from the original note were not included. Subjective Patient ID: Zach Chamorro is a 78 y.o. male who presents for Shoe lathe set up person (Zach Chamorro is a 78 y.o. male who presents for Shoe lathe set up person. BS: 113 A1C: 7.1/Lv Dr. Ng 01/28/2024/SS: [...] for prostate REVERSE TOTAL SHOULDER ARTHROPLASTY Right 2017 JAB SHOULDER SURGERY Right 05/13/2018 TONSILLECTOMY Family [...] understanding. Isabella Powell DPM documented in this [facility]10-23-2024 Instructions* Patient Instructions* Isabella Powell DPM - 04/02/2024 1:30 PM EDT Acclimating instructions as noted documented in this [facility]10-16-2024 History of Present illness Narrative* Isabella Powell [...] Measurements obtained in the weight-bearing position; utilizing [employer] device. Patient education relative to appropriate sizing [...] understanding. Isabella Powell DPM documented in this [facility]10-16-2024 Instructions* Patient Instructions* Isabella Powell DPM - 03/26/2024 2:30 PM EDT As noted documented in this [facility]10-14-2024 History of Present illness Narrative* Isabella Powell [...] understanding. Isabella Powell DPM documented in this [facility] [id number] Hospital Discharge instructions Patient Education 12/28/2023 10:30:14 [...] include: ?8 oz (237 mL) of milk, ivlsjwg-fdpnhztafwxy-mbtuz milk, and calcium- fortifiedfruit juice. Calcium-fortified means [...] ?Spinach (cooked), rhubarb, beets, sweet potatoes, and Cook Islander chard. ?Peanuts. ?Potato chips, mohawk fries, and baked potatoes with skin on. ?Nuts and nut products. ?Chocolate. If you regularly take a diuretic medicine, make sure to eat at least 1 or 2 servings of fruits or vegetables that are high in potassium each day. These include: ?Avocado. ?Banana. ?[place], prune, carrot, or tomato juice. ?Baked potato. [...] magnesium, fish oil, or vitamin B6. Take kyvt-dxx-ijynmkh and prescription medicines only as told by [...] Casseroles. Pizza. Lasagna. Frozen meals. Potato chips. Lao fries. The items listed above may not [...] provider. Document Revised: 09/07/2022 Document Reviewed: 09/07/2022 [employer] Patient Education 2022 [employer]. Follow Up Care 12/29/2022 08:54:47 With:MIKEY ARORA, Jermaine Cano, URL Address: [address] [place], [place] [id number]- When: Unknown [facility] 02-08-2024 History of Present illness Narrative* Symone Mcmahon MD - 07/19/2023 9:45 AM EST Images [...] Current treatments: AmLactin 12% lotion recommended by machine feeder Established patient All pertinent medical history, medications, [...] 1 year, skin check documented in this encounterRiple[facility] [id number] Progress note Author Rosa Davies [facility] December 13, 2022 10:35am Note Date/Time December 13, 2022 10:09 am [facility] [place] [address] Rad Onc Follow Up Note - OP Signed Patient: Zach Chamorro MR#: [id number] : 1945 Acct:[id number] Age/Sex: 77 / M Type: REG RCR Copies to: MD Jermaine Quintero MD~ Subjective - Service Date/Time Date: 12/13/22 Time: 10:09 - Diagnosis Adenocarcinoma the prostate, [place] score 3+4= 7, intermediate risk with initial [...] (0.000-4.000) 09/04/22 13:40 Impression: Adenocarcinoma the prostate, [place] score 3+4= 7, intermediate risk with initial [...] 1.59. He is scheduled to see Dr. Jensen in follow-up within next couple of week and I shall plan to see him back again in 6 months for his next scheduled radiation oncology follow-up with a repeat PSA level at that time. Patient was advised to call us or Dr. Jensen office if he has any significant urinary or bowel problems in the interim. Dictated By: Rosa Davies MD DD/ [id number] Signed By: <Electronically signed by Rosa Davies MD> 12/13/22 1035 [facility] Work Phone: 1(240) 349-502704-03-2023 Progress note Author Rosy Pina [facility] September 11, 2022 1:20pm Note Date/Time September 11, 2022 10:2 1am [facility] [place] [id number] Rad Onc Follow Up Note - OP Signed Patient: Zach Chamorro MR#: [id number] : 1945 Acct:[id number] Age/Sex: 77 / M Type: REG RCR Copies to: MD Jermaine Quintero MD~ Date of Service Service Date: 09/11/22 Assessment & Plan (1) Prostate cancer Plan: Return to clinic December 2022 for PSA Assessment: 77-year-old male with 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, [place] 3+4equal 7 disease in 3 cores on [...] as the right anterior medial gland and [place] 3+3 equal 6 in 1 core at [...] signed by Rosy Pina MD> 09/11/22 1320 [facility] Work Phone: 1(921) 377-655104-03-2023 Progress note Author Rosy Pina [facility] September 11, 2022 1:20pm Note Date/Time September 11, 2022 10:2 1am [facility] [place] [address] Rad Onc Follow Up Note - OP Signed Patient: Zach Chamorro MR#: [id number] : 1945 Acct:[id number] Age/Sex: 77 / M Type: REG RCR [...] biopsy findings. There was a singlecore of [place] 3+3+6 disease that was found on the [...] PI- RADS 4 MR fusion biopsy confirmed [place] 3+4 equal 7 in 3 cores including the region of interest as well as the right anterior medial gland and [place] 3+3 equal 6 in 1 core at [...] signed by Rosy Pina MD> 09/11/22 1320 [facility] Work Phone: 1(324) 539-873702-01-2023 Progress note Author Rosy Pina [facility] July 12, 2022 9:52am Note Date/Time July 12, 2022 9 :36am [facility] [place] [address] Rad Onc Follow Up Note - OP Signed Patient: Zach Chamorro MR#: [id number] : 1945 Acct:[id number] Age/Sex: 76 / M Type: REG RCR [...] biopsy findings. There was a singlecore of [place] 3+3+6 disease that was found on the left- no extracapsular extension. Patient has a large prostate gland 78 mL and was on tamsulosin 0.4 mg daily due to the BPH at presentation. On June 13, 2022 patient completed definitive SBRT to the prostate 37.5 Olvear in 5 fractions delivered every other day. [...] PI- RADS 4 MR fusion biopsy confirmed [place] 3+4 equal 7 in 3 cores including the region of interest as well as the right anterior medial gland and [place] 3+3 equal 6 in 1 core at [...] signed by Rosy Pina MD> 07/12/22 0952 [facility] Work Phone: 1(977) 465-734902-01-2023 Progress note Author Rosy Pina [facility] July 12, 2022 9:52am Note Date/Time July 12, 2022 9 :36am [facility] [place] [address] Rad Onc Follow Up Note - OP Signed Patient: Zach Chamorro MR#: [id number] : 1945 Acct:[id number] Age/Sex: 76 / M Type: REG RCR [...] PI- RADS 4 MR fusion biopsy confirmed [place] 3+4 equal 7 in 3 cores including [...] <Electronically signed by Rosy Pina MD> 07/12/2252 [facility] Work Phone: 1(373) 360-712412-05-2022 [facility] Procedure [facility]11-17-2022 Consult note Author Rosy Pina [facility] April 27, 2022 1:21pm Note Date/Time April 27, 2022 8:37am [facility] [place] [address] Rad Onc Consult Note - OP Signed Patient: Zach Chamorro MR#: [id number] : 1945 Acct:[id number] Age/Sex: 76 / M Type: REG RCR [...] male with 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 I reviewed his MRI and pathology. Multi parametric MRI is consistent with the biopsy findings. There is a single core of [place] 3+3+6 disease that was foundon the left. There is no extracapsular extension. The patient's gland is largeat 78 mL and he remains on tamsulosin 0.4 mg daily due to the BPH. But a long conversation today regarding the natural history of prostate cancer. Based on these findings patient has 3 options for treatment including active surveillance, surgery, radiation. With a [place] 3+4 disease I recommend we send a [...] PI- RADS 4 MR fusion biopsy confirmed [place] 3+4 equal 7 in 3 cores including the region of interest as well as the right anterior medial gland and [place] 3+3 equal 6 in 1 core at [...] been 10 years since his last colonoscopy. 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 I reviewed his MRI and pathology. Multi parametric MRI is consistent with the biopsy findings. There is a single core of [place] 3+3+6 disease that was foundon the left. There is no extracapsular extension. The patient's gland is largeat 78 mL and he remains on tamsulosin 0.4 mg daily due to the BPH. But a long conversation today regarding the natural history of prostate cancer. Based on these findings patient has 3 options for treatment including active surveillance, surgery, radiation. With a [place] 3+4 disease I recommend we send a [...] as the right anterior medial gland and [place] 3+3 equal 6 in 1 core at [...] been 10 years since his last colonoscopy. [facility] - Medical History Medical History: Medical [...] intact Dictated By: Rosy Pina MD DD/ [id number] Signed By: <Electronically signed by Rosy Pina MD> 04/27/22 1321 [facility] Work Phone: 1(173) 558-433311-04-2022 Hospital Discharge instructions Patient Education 04/14/2022 11:00:48 [...] who: Are older than age 65. Are -German. Are obese. Have a family history of [...] cells. Follow these instructions at home: Take ybzx-tuf-ownmdoy and prescription medicines only as told by [...] 05/28/2006 Document Revised: 05/10/2018 Document Reviewed: 02/05/2017 [employer] Patient Education 2020 [employer]. Follow Up Care 04/12/2022 09:44:29 With:MIKEY ARORA, Jermaine Cano, URL Address: [address] [place] [id number]- When: Unknown [facility] 10-18-2022 Hospital Discharge instructions Patient Education 03/28/2022 [...] for your post-operative appointment in 1-2 weeks [phone] or [phone] Follow Up Care 03/16/2022 13:18:55 With:Jermaine JENSEN Address: [facility] [address], [place] [address]- [facility] (1) When:04/11/2022 12:14:30 [facility]07-15-2022 Hospital Discharge instructions Patient Education 12/23/2021 08:26:00 [...] urethra. Follow these instructions at home: Take psog-gay-pphfiob and prescription medicines only as told by [...] 05/28/2006 Document Revised: 04/22/2019 Document Reviewed: 07/02/2017 [employer] Patient Education 2020 [employer]. Follow Up Care 12/17/2020 09:28:14 With:MIKEY ARORA, Jermaine Cano, URL Address: [address] [place], [place] [id number]- When:Within 1 Year(s) Comments:w/ PSA & KUB [facility] 05-17-2022 NoteHNO ID: [id number] Author: Haroldo Sebastian MD Service: ? Author [...] Haroldo Sebastian MD October 25, 2021 1:55 [facility]05-17-2022 History of Present illness Narrative* Haroldo [...] 25, 2021 1:55 PM documented in [facility]Evaluation + [facility] Future Appointments Appointment Date:12/29/2022 08:00:00 AM Scheduled Provider:Jermaine JENSEN MD Location:[facility] Appointment Type:URO Office Visit Diagnostic Tests Pending * PSA Free & Total 10/09/22 [facility] evaluation + Plan note Future Appointments Appointment Date:04/14/2022 10:30:00 AM Scheduled Provider:Jermaine JENSEN MD Location:[facility] Appointment Type:URO Procedure 15 min Appointment Date:12/29/2022 08:00:00 AM Scheduled Provider:Jermaine JENSEN MD [facility] Appointment Type:URO Office Visit Diagnostic Tests Pending * Prostate Histology ([facility]) 03/28/22 [facility] Future Appointments Appointment Date:12/29/2022 08:00:00 AM Scheduled Provider:Jermaine JENSEN MD Location:[facility] Appointment Type:URO Office Visit [facility] evaluation + Plan note Future Appointments Appointment Date:06/30/2024 09:45:00 AM Scheduled Provider:Jermaine JENSEN MD Location:[facility] Appointment Type:URO Office Visit Diagnostic Tests Pending * PSA Total 05/11/24 [facility] evalfhwmux note* Diagnosis Iris nevus, left- Primary Dislocation of intraocular lens, sequela documented in this encounter [facility]Evaluation noteNo assessment information [facility]Hol[facility] Work Phone: evaluation note* Diagnosis Onset Date Resolution Status Prostate cancer [facility] Work Phone: evaluation note* Diagnosis Nummular eczema- Primary Contact dermatitis and other eczema, due to unspecified cause Seborrheic keratosis Melanocytic nevus of trunk Benign neoplasm of skin of trunk, except scrotum Lentigines Angioma of skin History of actinic keratoses Personal history of diseases of skin and subcutaneous tissue documented in this encounter [facility] HealthcareEvaluation note* Diagnosis Onset Date Resolution Status Prostate cancer acute Prostate cancer [facility] Work Phone: evaluation note* Diagnosis Type 2 diabetes mellitus with hyperglycemia, with long-term current use of insulin ([facility])- Primary Benign essential hypertension ([facility]) Essential hypertension, benign BPH without urinary obstruction Peptic ulcer disease Peptic ulcer, unspecified site, unspecified as acute or chronic, without mention of hemorrhage, perforation, or obstruction Seasonal allergic rhinitis due to pollen Chest pain at rest- Primary Unspecified chest pain Type 2 diabetes mellitus with hyperglycemia, with long-term current use of insulin ([facility]) Type 2 diabetes mellitus with hyperglycemia, with long-term current use of insulin ([facility])- Primary Benign essential hypertension ([facility]) Essential hypertension, benign Peptic ulcer disease Peptic ulcer, unspecified site, unspecified as acute or chronic, without mention of hemorrhage, perforation, or obstruction BPH without urinary obstruction Seasonal allergic rhinitis due to pollen Dermatophytosis of nail- Primary Dystrophic nail Other specified disease of nail Diabetic polyneuropathy associated with type 2 diabetes mellitus ([facility]) Encounter for long-term (current) use of insulin ([facility]) Encounter for long-term (current) use of insulin documented in this encounter [facility] HealthcareEvaluation note* Diagnosis Type 2 diabetes mellitus with hyperglycemia, with long-term current use of insulin ([facility])- Primary Benign essential hypertension ([facility]) Essential hypertension, benign BPH without urinary obstruction Peptic ulcer disease Peptic ulcer, unspecified site, unspecified as acute or chronic, without mention of hemorrhage, perforation, or obstruction Seasonal allergic rhinitis due to pollen Chest pain at rest- Primary Unspecified chest pain Type 2 diabetes mellitus with hyperglycemia, with long-term current use of insulin ([facility]) Type 2 diabetes mellitus with hyperglycemia, with long-term current use of insulin ([facility])- Primary Benign essential hypertension ([facility]) Essential hypertension, benign Peptic ulcer disease Peptic ulcer, unspecified site, unspecified as acute or chronic, without mention of hemorrhage, perforation, or obstruction BPH without urinary obstruction Seasonal allergic rhinitis due to pollen Diabetic polyneuropathy associated with type 2 diabetes mellitus ([facility])- Primary Encounter for long-term (current) use of insulin ([facility]) Encounter for long-term (current) use of insulin documented in this encounter [facility] HealthcareEvaluation note* Diagnosis Type 2 diabetes mellitus with hyperglycemia, with long-term current use of insulin ([facility])- Primary Benign essential hypertension ([facility]) Essential hypertension, benign BPH without urinary obstruction Peptic ulcer disease Peptic ulcer, unspecified site, unspecified as acute or chronic, without mention of hemorrhage, perforation, or obstruction Seasonal allergic rhinitis due to pollen Chest pain at rest- Primary Unspecified chest pain Type 2 diabetes mellitus with hyperglycemia, with long-term current use of insulin ([facility]) Type 2 diabetes mellitus with hyperglycemia, with long-term current use of insulin ([facility])- Primary Benign essential hypertension ([facility]) Essential hypertension, benign Peptic ulcer disease Peptic ulcer, unspecified site, unspecified as acute or chronic, without mention of hemorrhage, perforation, or obstruction BPH without urinary obstruction Seasonal allergic rhinitis due to pollen Diabetic polyneuropathy associated with type 2 diabetes mellitus ([facility])- Primary Encounter for long-term (current) use of insulin ([facility]) Encounter for long-term (current) use of insulin documented in this encounter [facility] HealthcareEvaluation note* Diagnosis Type 2 diabetes mellitus with hyperglycemia, with long-term current use of insulin ([facility])- Primary Benign essential hypertension ([facility]) Essential hypertension, benign BPH without urinary obstruction Peptic ulcer disease Peptic ulcer, unspecified site, unspecified as acute or chronic, without mention of hemorrhage, perforation, or obstruction Seasonal allergic rhinitis due to pollen Chest pain at rest- Primary Unspecified chest pain Type 2 diabetes mellitus with hyperglycemia, with long-term current use of insulin ([facility]) Type 2 diabetes mellitus with hyperglycemia, with long-term current use of insulin ([facility])- Primary Benign essential hypertension ([facility]) Essential hypertension, benign Peptic ulcer disease Peptic ulcer, unspecified site, unspecified as acute or chronic, without mention of hemorrhage, perforation, or obstruction BPH without urinary obstruction Seasonal allergic rhinitis due to pollen Type 2 diabetes mellitus with hyperglycemia, with long-term current use of insulin ([facility])- Primary documented in this encounter [facility] HealthcareEvaluation note* Diagnosis Type 2 diabetes mellitus with hyperglycemia, with long-term current use of insulin ([facility])- Primary Benign essential hypertension ([facility]) Essential hypertension, benign BPH without urinary obstruction Peptic ulcer disease Peptic ulcer, unspecified site, unspecified as acute or chronic, without mention of hemorrhage, perforation, or obstruction Seasonal allergic rhinitis due to pollen Chest pain at rest- Primary Unspecified chest pain Type 2 diabetes mellitus with hyperglycemia, with long-term current use of insulin ([facility]) Type 2 diabetes mellitus with hyperglycemia, with long-term current use of insulin ([facility])- Primary Benign essential hypertension ([facility]) Essential hypertension, benign Peptic ulcer disease Peptic ulcer, unspecified site, unspecified as acute or chronic, without mention of hemorrhage, perforation, or obstruction BPH without urinary obstruction Seasonal allergic rhinitis due to pollen 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 ([facility])- Primary Diabetic polyneuropathy associated with type 2 diabetes mellitus ([facility]) Swelling of left foot Encounter for long-term (current) use of insulin ([facility]) Encounter for long-term (current) use of insulin documented in this encounter [facility] HealthcareEvaluation note* Diagnosis Type 2 diabetes mellitus with hyperglycemia, with long-term current use of insulin ([facility])- Primary Benign essential hypertension ([facility]) Essential hypertension, benign BPH without urinary obstruction Peptic ulcer disease Peptic ulcer, unspecified site, unspecified as acute or chronic, without mention of hemorrhage, perforation, or obstruction Seasonal allergic rhinitis due to pollen Chest pain at rest- Primary Unspecified chest pain Type 2 diabetes mellitus with hyperglycemia, with long-term current use of insulin ([facility]) Type 2 diabetes mellitus with hyperglycemia, with long-term current use of insulin ([facility])- Primary Benign essential hypertension ([facility]) Essential hypertension, benign Peptic ulcer disease Peptic ulcer, unspecified site, unspecified as acute or chronic, without mention of hemorrhage, perforation, or obstruction BPH without urinary obstruction Seasonal allergic rhinitis due to pollen Acute non-recurrent maxillary sinusitis- Primary Type 2 diabetes mellitus with hyperglycemia, with long-term current use of insulin ([facility]) documented in this encounter [facility] HealthcareEvaluation note* Diagnosis Type 2 diabetes mellitus with hyperglycemia, with long-term current use of insulin ([facility])- Primary Benign essential hypertension ([facility]) Essential hypertension, benign BPH without urinary obstruction Peptic ulcer disease Peptic ulcer, unspecified site, unspecified as acute or chronic, without mention of hemorrhage, perforation, or obstruction Seasonal allergic rhinitis due to pollen Chest pain at rest- Primary Unspecified chest pain Type 2 diabetes mellitus with hyperglycemia, with long-term current use of insulin ([facility]) Type 2 diabetes mellitus with hyperglycemia, with long-term current use of insulin ([facility])- Primary Benign essential hypertension ([facility]) Essential hypertension, benign Peptic ulcer disease Peptic ulcer, unspecified site, unspecified as acute or chronic, without mention of hemorrhage, perforation, or obstruction BPH without urinary obstruction Seasonal allergic rhinitis due to pollen Acute non-recurrent maxillary sinusitis- Primary Type 2 diabetes mellitus with hyperglycemia, with long-term current use of insulin ([facility]) Dermatophytosis of nail- Primary Dystrophic nail Other specified disease of nail Diabetic polyneuropathy associated with type 2 diabetes mellitus ([facility]) 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 HealthcareEvaluation note* Diagnosis Type 2 diabetes mellitus with hyperglycemia, with long-term current use of insulin ([facility])- Primary Benign essential hypertension ([facility]) Essential hypertension, benign BPH without urinary obstruction Peptic ulcer disease Peptic ulcer, unspecified site, unspecified as acute or chronic, without mention of hemorrhage, perforation, or obstruction Seasonal allergic rhinitis due to pollen Chest pain at rest- Primary Unspecified chest pain Type 2 diabetes mellitus with hyperglycemia, with long-term current use of insulin ([facility]) Type 2 diabetes mellitus with hyperglycemia, with long-term current use of insulin ([facility])- Primary Benign essential hypertension ([facility]) Essential hypertension, benign Peptic ulcer disease Peptic ulcer, unspecified site, unspecified as acute or chronic, without mention of hemorrhage, perforation, or obstruction BPH without urinary obstruction Seasonal allergic rhinitis due to pollen Acute non-recurrent maxillary sinusitis- Primary Type 2 diabetes mellitus with hyperglycemia, with long-term current use of insulin ([facility]) Melanocytic nevus of trunk- Primary Benign neoplasm of skin of trunk, except scrotum Seborrheic keratosis Lentigines Actinic keratosis Capillary angioma Nevus, non-neoplastic Melanocytic nevus of face, other location Epidermal inclusion cyst Sebaceous cyst Nummular eczema Contact dermatitis and other eczema, due to unspecified cause documented in this encounter [facility] HealthcareEvaluation note* Diagnosis Type 2 diabetes mellitus with hyperglycemia, with long-term current use of insulin ([facility])- Primary Benign essential hypertension ([facility]) Essential hypertension, benign BPH without urinary obstruction Peptic ulcer disease Peptic ulcer, unspecified site, unspecified as acute or chronic, without mention of hemorrhage, perforation, or obstruction Seasonal allergic rhinitis due to pollen Chest pain at rest- Primary Unspecified chest pain Type 2 diabetes mellitus with hyperglycemia, with long-term current use of insulin ([facility]) Type 2 diabetes mellitus with hyperglycemia, with long-term current use of insulin ([facility])- Primary Benign essential hypertension (CMS/HCC) Essential hypertension, benign Peptic ulcer disease Peptic [...] hyperglycemia, with long-term current use of insulin ([facility]) Benign essential hypertension ([facility]) Essential hypertension, benign Encounter for long-term current use of medication documented in this encounter [facility] HealthcareEvaluation note* Diagnosis Type 2 diabetes mellitus with hyperglycemia, with long-term current use of insulin ([facility])- Primary Benign essential hypertension (CMS/HCC) Essential hypertension, benign BPH without urinary obstruction [...] hyperglycemia, with long-term current use of insulin ([facility])- Primary Benign essential hypertension ([facility]) Essential hypertension, benign Peptic ulcer disease Peptic ulcer, unspecified site, unspecified as acute or chronic, without mention of hemorrhage, perforation, or obstruction BPH without urinary obstruction Seasonal allergic rhinitis due to pollen Acute non-recurrent maxillary sinusitis- Primary Type 2 diabetes mellitus with hyperglycemia, with long-term current use of insulin ([facility]) Medicare annual wellness visit, subsequent- Primary Nocturnal leg cramps Pruritus Unspecified pruritic disorder Type 2 diabetes mellitus with hyperglycemia, with long-term current use of insulin ([facility]) Benign essential hypertension ([facility]) Essential hypertension, benign Encounter for long-term current use of medication Hypomagnesemia- Primary Disorders of magnesium metabolism documented in this encounter [facility] HealthcareEvaluation note* Diagnosis Type 2 diabetes mellitus with hyperglycemia, with long-term current use of insulin ([facility])- Primary Benign essential hypertension ([facility]) Essential hypertension, benign BPH without urinary obstruction Peptic ulcer disease Peptic ulcer, unspecified site, unspecified as acute or chronic, without mention of hemorrhage, perforation, or obstruction Seasonal allergic rhinitis due to pollen Chest pain at rest- Primary Unspecified chest pain Type 2 diabetes mellitus with hyperglycemia, with long-term current use of insulin ([facility]) Type 2 diabetes mellitus with hyperglycemia, with long-term current use of insulin ([facility])- Primary Benign essential hypertension ([facility]) Essential hypertension, benign Peptic ulcer disease Peptic ulcer, unspecified site, unspecified as acute or chronic, without mention of hemorrhage, perforation, or obstruction BPH without urinary obstruction Seasonal allergic rhinitis due to pollen Acute non-recurrent maxillary sinusitis- Primary Type 2 diabetes mellitus with hyperglycemia, with long-term current use of insulin ([facility]) Medicare annual wellness visit, subsequent- Primary Nocturnal leg cramps Pruritus Unspecified pruritic disorder Type 2 diabetes mellitus with hyperglycemia, with long-term current use of insulin ([facility]) Benign essential hypertension ([facility]) Essential hypertension, benign Encounter for long-term current use of medication Dermatophytosis of nail- Primary Dystrophic nail Other specified disease of nail Diabetic polyneuropathy associated with type 2 diabetes mellitus ([facility]) Encounter for long-term (current) use of insulin ([facility]) Encounter for long-term (current) use of insulin documented in this encounter [facility] HealthcareEvaluation note* Diagnosis Type 2 diabetes mellitus with hyperglycemia, with long-term current use of insulin ([facility])- Primary Benign essential hypertension (CMS/HCC) Essential hypertension, benign BPH without urinary obstruction [...] hyperglycemia, with long-term current use of insulin (CMS/HCC)- Primary Benign essential hypertension (CMS/HCC) Essential hypertension, benign Peptic ulcer disease Peptic [...] hyperglycemia, with long-term current use of insulin ([facility]) Benign essential hypertension (CMS/HCC) Essential hypertension, benign Encounter for long-term current use of medication Left elbow pain- Primary Pain in joint, upper arm documented in this encounter [facility] HealthcareEvaluation note* Diagnosis Onset Date Resolution Status Admit Date Prostate cancer acute November 04, 2024 9:41am Prostate cancer acute November 04, 2024 9:41am [facility] Work Phone: Evaluation note* Diagnosis Type 2 diabetes mellitus with hyperglycemia, with long-term current use of insulin ([facility])- Primary Benign essential hypertension Essential hypertension, benign BPH without urinary obstruction Peptic ulcer disease Peptic ulcer, unspecified site, unspecified as acute or chronic, without mention of hemorrhage, perforation, or obstruction Seasonal allergic rhinitis due to pollen Chest pain at rest- Primary Unspecified chest pain Type 2 diabetes mellitus with hyperglycemia, with long-term current use of insulin ([facility]) Type 2 diabetes mellitus with hyperglycemia, with long-term current use of insulin ([facility])- Primary Benign essential hypertension Essential hypertension, benign [...] Essential hypertension, benign documented in this encounter [facility] HealthcareEvaluation note* Diagnosis Type 2 diabetes mellitus with hyperglycemia, with long-term current use of insulin ([facility])- Primary Benign essential hypertension Essential hypertension, benign [...] (HCC) Benign essential hypertension Essential hypertension, benign Dermatophytosis of nail- Primary Dystrophic nail Other specified disease of nail Diabetic polyneuropathy associated with type 2 diabetes mellitus (HCC) Encounter for long-term (current) use of insulin (HCC) Encounter for long-term (current) use of insulin [facility] N[facility] No data available for this section [facility] progoczu note No data available for this section [facility] progbzdi note Author Rosy Pina [facility] July 12, 2022 9:52am Note Date/Time July 12, 2022 9 :36am [facility] [place] [address] Rad Onc Follow Up Note - OP Signed Patient: Zach Chamorro MR#: [id number] : 1945 Acct:[id number] Age/Sex: 76 / M Type: REG RCR [...] biopsy findings. There was a singlecore of [place] 3+3+6 disease that was found on the [...] as the right anterior medial gland and [place] 3+3 equal 6 in 1 core at [...] signed by Rosy Pina MD> 07/12/22 0952 [facility] Work Phone: Progress note Author Rosa Davies [facility] December 13, 2022 10:35am Note Date/Time December 13, 2022 10:09 am [facility] [place] [id number] Rad Onc Follow Up Note - OP Signed Patient: Zach Chamorro MR#: [id number] : 1945 Acct:[id number] Age/Sex: 77 / M Type: REG RCR Copies to: MD Jermaine Quintero MD~ Subjective - Service Date/Time Date: 12/13/22 Time: 10:09 - Diagnosis Adenocarcinoma the prostate, [place] score 3+4= 7, intermediate risk with initial PSA of 5.69, stage [id number] M0 - Chief Complaint I am no urinary or bowel complaints - History of Present Illness 77-year-old male with 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 Multi parametric MRI is consistent with the biopsy findings. There was a singlecore of [place] 3+3+6 disease that was found on the [...] (0.000-4.000) 09/04/22 13:40 Impression: Adenocarcinoma the prostate, Tanna score [...] 1.59. He is scheduled to see Dr. Jensen in follow-up within next couple of week and I shall plan to see him back again in 6 months for his next scheduled radiation oncology follow-up with a repeat PSA level at that time. Patient was advised to call us or Dr. Jensen office if he has any significant urinary or bowel problems in the interim. Dictated By: Rosa Davies MD DD/ [id number] Signed By: <Electronically signed by Rosa Davies MD> 12/13/22 1034 [facility] Work Phone: Progress note Author Rosy Pina [facility] January 10, 2024 10:47am Note Date/Time January 10, 2024 10: 38am [facility] [place] [address] Cancer Center Note Signed Patient: Zach Chamorro MR#: [id number] : 1945 Acct:[id number] Age/Sex: 78 / M Type: REG AMB Date of Service: 01/10/24 Copies to: MD Jermaine Quintero MD~ Assessment & Plan (1) Prostate cancer: Plan: Return to clinic late Apr 2024 with PSA -will transition to 6-month follow-up [id number] as he will be 2 years out. Assessment: 78-year-old male with 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 Patient [...] as the right anterior medial gland and [place] 3+3 equal 6 in 1 core at [...] No Known Allergies Allergy (Verified 09/18/23 10:05) [facility] Medical History Medical History (Updated 07/12/22 [...] 5 Source: Julius BARNEY, Josafat LOWERY Jr, O'Laporte MP, et al, and the Measurement Committeeof the [employer]. The [employer] symptom index for benign prostatic hyperplasia. J Urol. 1992; 148: 9800-1944. Copyright 1992 [employer] IMER Score Over the past [...] 7 Dictated By: Rosy Pina MD DD/ 7 Signed By: <Electronically signed by Rosy Pina MD> 01/10/24 1047 [facility] Work Phone: Progress note Author Tre Bertrand [facility] Note Date/Time November 04, 2024 10:07 am [facility] [place] [address] Cancer Center Note Signed Patient: Zach Chamorro MR#: [id number] : 1945 Acct:[id number] Age/Sex: 79 / M Type: DEP AMB Date of Service: 11/04/24 Copies to: Blake Ng MD~ Assessment & Plan A/P (1) Prostate cancer: Plan: Return to clinic with ANALYSIS ENGINEER Apr 2025 with next PSA Assessment: 78-year-old male with 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 Patient [...] prostate Patient Instructions: follow-up in 6mo with ANALYSIS ENGINEER PSA in 6mo CHEMO PLAN No Active [...] PI- RADS 4 MR fusion biopsy confirmed [place] 3+4 equal 7 in 3 cores including [...] No Known Allergies Allergy (Verified 09/18/23 10:05) [facility] Medical History Medical History (Updated 07/12/22 [...] et al, and the Measurement Committeeof the [employer]. The [employer] symptom index for benign prostatic hyperplasia. J Urol. 1992; 148: 3025-2383. Copyright 1992 [employer] Over the past six months [...] <Electronically signed by MARIO Bertrand> 11/04/24 1012 [facility] Work Phone: Reason for referral (narrative) Referred by: MIKEY ARORA, Jermaine Cano [facility] reason for referral (narrative)No reason for referral information [facility]Hol[facility] Work Phone: Summary Purpose Family History [...] Drop, BOTH EYES, ONCE, 1 dose, On Sun10/25/21 at 1130, FOR THE EYE Given 10/25/2021 [...] section and content) DATE CREATED AUTHOR 11/29/2017 [facility] DATE CREATED AUTHOR AUTHOR'S ORGANIZ ATION 11/09/2021 [facility] DATE CREATED AUTHOR AUTHOR'S ORGANIZ ATION 07/31/2022 [facility] DATE CREATED AUTHOR AUTHOR'S ORGANIZ ATION 01/07/2025 [facility] DATE CREATED AUTHOR AUTHOR'S ORGANIZ ATION 01/09/2025 [facility] DATE CREATED AUTHOR AUTHOR'S ORGANIZ ATION 01/23/2025 [facility] DATE CREATED AUTHOR AUTHOR'S ORGANIZ ATION 01/26/2025 [facility] EPIC Source Comments (unrecognize d section and content) In the event this informatio n is protected by the Federal Confidentiality of Alcohol and Drug Abuse Patient Records regulations: The Federal rules restrict any use of the information to criminally investigate or prosecute any alcohol or drug abuse patient.[facility] Reason for Visit (unrecogniz ed section and [...] Dr. 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 male who presents for Shoe lathe set up person. BS: 113 A1C: 7.1/Lv Dr. Ng 01/28/2024/SS: [...] Comments Pain Reason Comments Follow-up Surgical clearance Reason Comments Nail care Zach Chamorro is a 79 y.o. male who presents for DM Foot Care (PT is here today with his spouse for diabetic foot care, he states the nails are becoming painful for him/BS: 104 A1C: 7.4/LV Dr. Ng 01-02-2025/SS: 12 Care Teams (unrecognized sec tion and content) [...] Provider Active Start: September 18, 2023 Jermaine Jensen MD Referring Provider Active St art: September 18, 2023 Team Status: Inactive Member Role Status Dates Blake Ng MD Primary Care Provider Active S tart: September 18, 2023 End: September 18, 2023 Rosy Pina MD Attending Provider Active Start: September 18, 2023 End: September 18, 2023 Zigzag Topstitcher Relationship Specialty Start Date End Date Alejandro Davenport PCP - General Family Practice 10/02/13 Team Status: Inactive Member Role Status Dates Jermaine Jensen MD Attending Provider Active Blake Ng MD Primary Care Provider Active Team Status: Active Member Role Status Dates Blake Ng MD Primary Care Provider Active Rosy Pina MD Attending Provider Active Jermaine Jensen MD Referring Provider Active Team Status: Inactive Member Role Status Dates Blake Ng MD Primary Care Provider Active Rosy Pina MD Attending Provider Active Team Status: Inactive Member Role Status Dates Blake Ng MD Primary Care Provider Active Jermaine Jensen MD Attending Provider Active Rosy Pina MD Referring Provider Active Zigzag Topstitcher Relationship Specialty Start Date End Date Blake Ng MD PCP - General Family Medicine 12/21/22 Zigzag Topstitcher Relationship Specialty Start Date End Date Blake Ng MD PCP - General Family Medicine 12/21/22 Team Status: Active Member Role Status Dates Blake Ng MD Primary Care Provider Active S tart: June 13, 2023 Rosy Pina MD Attending Provider Active Start: June 13, 2023 Jermaine Jensen MD Referring Provider Active St art: June 13, 2023 Team Status: Inactive Member Role Status Dates Blake Ng MD Primary Care Provider Active S tart: December 19, 2023 End: December 19, 2023 Jermaine Jensen MD Attending Provider Active St art: December 19, 2023 End: December 19, 2023 Team Status: Active Member Role Status Dates Blkae Ng MD Primary Care Provider Active S tart: January 10, 2024 Rosy Pina MD Attending Provider Active Start: January 10, 2024 Jermaine Jensen MD Referring Provider Active St art: January 10, 2024 Team Status: Inactive Member Role Status Dates Blake Ng MD Primary Care Provider Active S tart: January 10, 2024 End: January 10, 2024 Rosy Pina MD Attending Provider Active Start: January 10, 2024 End: January 10, 2024 Jermaine Jensen MD Referring Provider Active St art: January 10, 2024 End: January 10, 2024 Team Status: Inactive Member Role Status Dates Blake Ng MD Primary Care Provide r, Attending Provider Active Start: January 25, 2024 End: January 25, 2024 Zigzag Topstitcher Relationship Specialty Start Date End Date Blake Ng MD [address] [place] [address] PCP - General Family Medicine 07/24/23 Zigzag Topstitcher Relationship Specialty Start Date End Date Blake Ng MD [address] [place] [address] PCP - General Family Medicine 07/24/23 Zigzag Topstitcher Relationship Specialty Start Date End Date Blake Ng MD [address] [place] [address] PCP - General Family Medicine 07/24/23 Zigzag Topstitcher Relationship Specialty Start Date End Date Blake Ng MD [address] [place] [address] PCP - General Family Medicine 07/24/23 Zigzag Topstitcher Relationship Specialty Start Date End Date Blake Ng MD [address] [place] [address] PCP - General Family Medicine 07/24/23 Zigzag Topstitcher Relationship Specialty Start Date End Date Blake Ng MD [address] [place] [address] PCP - General Family Medicine 07/24/23 Zigzag Topstitcher Relationship Specialty Start Date End Date Blake Ng MD [address] [place] [address] PCP - General Family Medicine 07/24/23 Zigzag Topstitcher Relationship Specialty Start Date End Date Blake Ng MD [address] [place] [address] PCP - General Family Medicine 07/24/23 Zigzag Topstitcher Relationship Specialty Start Date End Date Blake Ng MD [address] [place] [address] PCP - General Family Medicine 07/24/23 Zigzag Topstitcher Relationship Specialty Start Date End Date Blake Ng MD [address] [place] [address] PCP - General Family Medicine 07/24/23 Blake Ng MD [address] [place] [address] PCP - O Reach 07/18/24 Zigzag Topstitcher Relationship Specialty Start Date End Date Blake Ng MD [address] [place] [address] PCP - General Family Medicine 07/24/23 Blake Ng MD [address] [place] [address] PCP - ACO Reach 07/18/24 Zigzag Topstitcher Relationship Specialty Start Date End Date Blake Ng MD [address] [place] [address] PCP - General Family Medicine 07/24/23 Blake Ng MD [address] [place] [address] PCP - ACO Reach 07/18/24 Zigzag Topstitcher Relationship Specialty Start Date End Date Blake Ng MD [address] [place] [address] PCP - General Family Medicine 07/24/23 Blake Ng MD [address] [place] [address] PCP - ACO Reach 07/18/24 Zigzag Topstitcher Relationship Specialty Start Date End Date Blake Ng MD [address] [place] [address] PCP - General Family Medicine 07/24/23 Blake Ng MD [address] [place] [address] PCP - ACO Reach 07/18/24 Team Status: Inactive Member Role Status Dates Blake Ng MD Primary Care Provide r, Attending Provider Active Start: August 06, 2024 End: August 06, 2024 Zigzag Topstitcher Relationship Specialty Start Date End Date Blake Ng MD [address] [place] [address] PCP - General Family Medicine 07/24/23 Blaek Ng MD [address] [place] [address] PCP - ACO Reach 07/18/24 Zigzag Topstitcher Relationship Specialty Start Date End Date Blake Ng MD [address] [place] [address] PCP - General Family Medicine 07/24/23 Blake Ng MD [address] [place] [address] PCP - ACO Reach 07/18/24 Zigzag Topstitcher Relationship Specialty Start Date End Date Blake Ng MD [address] [place] [address] PCP - General Family Medicine 07/24/23 Blake Ng MD [address] [place] [address] PCP - ACO Reach 07/18/24 Zigzag Topstitcher Relationship Specialty Start Date End Date Blake Ng MD [address] [place] [address] PCP - General Family Medicine 07/24/23 Blake Ng MD [address] [place] [address] PCP - ACO Reach 07/18/24 Team Status: Inactive Member Role Status Dates Blake gN MD Primary Care Provider Active S tart: November 04, 2024 End: November 04, 2024 Tre Vizcarra MARIO Bertrand Attending Provider Acti ve Start: November 04, 2024 End: November 04, 2024 Jermaine Jensen MD Referring Provider Active St art: November 04, 2024 Team Status: Inactive Member Role Status Dates Blake Ng MD Primary Care Provider Active S tart: December 24, 2024 End: December 24, 2024 Jermaine Jensen MD Attending Provider Active St art: December 24, 2024 End: December 24, 2024 Zigzag Topstitcher Relationship Specialty Start Date End Date Blake Ng MD [address] [place] [address] PCP - General Family Medicine 07/24/23 Blake Ng MD [address] [place] [address] PCP - ACO Reach 07/18/24 Zigzag Topstitcher Relationship Specialty Start Date End Date Blake Ng MD [address] [place] [address] PCP - General Family Medicine 07/24/23 Blake Ng MD [address] [place] [address] PCP - ACO Reach 07/18/24 Zigzag Topstitcher Relationship Specialty Start Date End Date Blake Ng MD [address] [place] [address] PCP - General Family Medicine 07/24/23 Blake Ng MD [address] [place] [address] PCP - ACO Reach 07/18/24 Zigzag Topstitcher Relationship Specialty Start Date End Date Blake Ng MD [address] [place] [address] PCP - General [facility] 07/24/23 Blake Ng MD [address] [place] [address] [facility] 07/18/24 Zigzag Topstitcher Relationship Specialty Start Date End Date Blake Ng MD [address] [place] [address] PCP [facility] 07/24/23 Blake Ng MD [address] [place] [address] PCP [facility] 07/18/24 Goals (unrecognized section and content) Goals [...] BE BASED ON THE PRIMARY CLINICAL RECORDS. [facility] [employer] [facility]. provides no warranty or guarantee of the accuracy or completeness of information in this document.
--- NOTE | 2025-01-30 07:57 | CA_ITS ---
Patient Name: ZACH TRACY MR#: [id number] : 1945 Exam Date: 01/30/2025 Ordering Doctor: DR CASSANDRA JOSE M.D. ECHOCARDIOGRAM REPORT PROCEDURE: CA ECHO DOPPLER COMPLETE INDICATIONS: Abnormal stress test, Chest pain, Murmur COMPARISON: None. DESCRIPTION: COMPLETE ECHOCARDIOGRAM Real-time transthoracic echocardiography with 2D, M-mode, spectral and color flow Doppler performed. QUALITY: Technical quality was good. LEFT VENTRICLE: Normal chamber size. Severe concentric left ventricular hypertrophy. LV EF: Global left ventricular systolic function is hyperdynamic; visually estimated ejection fraction is 65 to 70%. Calculated left ventricular ejection fraction is 68%. No significant wall motion abnormalities. DIASTOLIC: Diastolic function is indeterminate. ATRIAL SEPTUM: Inadequately seen. LEFT ATRIUM: Normal chamber size. RIGHT ATRIUM: Mild dilatation. RIGHT VENTRICLE: Normal chamber size. Normal right ventricular systolic function. TRICUSPID VALVE: Normal mobility and thickness. No stenosis with mild regurgitation. Mild pulmonary hypertension. RVSP 38mmHg. MITRAL VALVE: Moderately thickened with decreased mobility. Severe mitral annular calcification. No mitral regurgitation. MVA 2.3cm2, peak/mean gradients 7/3mmHg. Gradients are likely elevated due to hyperdynamic state +/- volume overload. AORTIC VALVE: The aortic valve is probably trileaflet. Moderately calcified aortic valve with diminished mobility. Doppler velocity suggests mild to moderate aortic valve stenosis. DVI 0.5, SHANNON 1.2cm2, Vmax 3.1m/s. Velocities and gradients may be overestimated due to hyperdynamic left ventricular systolic function. Mild aortic regurgitation. AORTIC ROOT: Mildly dilated. Measuring 4.0cm. The ascending aorta measures 3.7cm. PULMONIC VALVE: Normal thickness and mobility. No stenosis. Trivial regurgitation. PERICARDIUM: No evidence of pericardial effusion. IVC: Collapses with inspiration. Mildly dilated measuring 2.2cm. CONCLUSION: 1. Global left ventricular systolic function is hyperdynamic; visually estimated ejection fraction is 65 to 70% 2. Severe left ventricular hypertrophy 3. Diastolic function is indeterminate. 4. Normal right ventricular size and systolic function 5. Mild right atrial dilatation 6. Mild tricuspid regurgitation 7. Mildly elevated right ventricular systolic pressure; RVSP 38 mmHg 8. Mild to moderate aortic valve stenosis; mild aortic valve regurgitation 9. The aortic root is mildly dilated measuring 4.0 cm Adult Echocardiography Procedure Report Left Ventricle LVEDD (3.7 - 5.6 cm): 3.49 cm LVESD (2.2 - 4.0 cm): 2.25 cm LVIVS thickness (0.6 - 1.2 cm): 1.86 cm LVPW thickness (0.5 - 1.0 cm): 1.44 cm e': 0.04 m/s E - e': 22.76 LVOT Max Gradient: 10.25 mm[Hg] LVOT Area (cm2): 1.60 m/s Peak Velocity (LVOT): 1.60 m/s Mean Velocity (LVOT): 1.16 m/s LVOT Diameter 1.66 cm Left Ventricular Ejection Fraction: 68.35 % Left Atrium LA Volume Index (2D A2C): 27.65 ml/m2 Left Atrium Systolic Dimension: 3.81 cm Mitral Valve MV E to A Ratio: 0.72 Mitral Valve A-Wave Peak Velocity: 1.27 m/s Mitral Valve E-Wave Peak Velocity: 0.92 m/s Right Ventricle RV Internal Diastolic Dimension: 3.23 cm Aorta AO Root Diam: 3.99 cm Ascending Ao Diam: 3.67 cm Aortic Valve AoV Area (Peak Yariel): 1.12 cm2, 1.12 cm2 AoV Area (VTI): 1.19 cm2, 1.19 cm2 Peak Velocity(Antegrade Flow): 3.09 m/s Peak Gradient(Antegrade Flow): 38.27 mm[Hg] Mean Velocity(Antegrade Flow): 2.12 m/s Mean Gradient(Antegrade Flow): 20.86 mm[Hg] Velocity Time Integral: 60.53 cm Tricuspid Valve Peak Velocity (Regurgitant Flow): 2.45 m/s, 2.29 m/s, 2.75 m/s Pulmonic Valve Peak Velocity: 0.93 m/s Peak Gradient: 3.47 mm[Hg] Right Atrium Right Atrium Systolic Pressure: 34.34 ml, 34.34 ml Dictated by: Argelia Gonsales M.D. on 01/30/2025 at 13:18 Approved by: Argelia Gonsales M.D. on 01/30/2025 at 13:40
== END 2025-01-30 07:47 | disposition home or self-care (01) ==
LOC: CARD 07:46
PROVIDERS: PCP Family Medicine; Visit Provider Internal Medicine Interventional Cardiology
DX: R94.39 Abnormal result of other cardiovascular function study (principal); R07.89 Other chest pain; R01.1 Cardiac murmur, unspecified; Z86.73 Personal history of transient ischemic attack (TIA), and cerebral infarction without residual deficits
CPT/HCPCS: 93306

== ENCOUNTER 2025-01-31 08:19 | Outpatient (OUT) | payer MEDICARE, SELFPAY ==
--- OUTSIDE RECORDS SUMMARY | 2025-01-19 09:00 | XMS_ITS | Encounter Summary ---
Author Organization [facility] Address [address] [place] [address] Care Team Providers Care Bus Cleaner Name Role Phone Blake Larson MD Primary Care Provider [phone] Reason for Referral * Imaging (Routine) - Pending Review Specialty Diagnoses / Procedures Referred By Contac t Referred To Contact Cardiology Diagnoses Cardiovascular stress test abnormal Other chest pain Murmur, heart History of TIA (transient ischemic attack) Procedures Transthoracic echo (TTE) complete Mike Boucher MD [address] [place] [address] Phone: tel: fax: Referral ID Status Reason Start Date Expiration Date Visits Requested Visits Authorized [id number] Pending Review Perform Procedure 01/19/2025 01/19/2026 1 1 Encounter Details Date Type Department Care Team (Late st Contact Info) Description 01/19/2025 9:00 AM EDT Office Visit [facility] [address] [place] [address] Mike Boucher MD [address] [facility] [address] [place] [address] Cardiovascular stress test abnormal (Primary Dx); Other chest pain; Preop cardiovascular exam; Murmur, heart; Primary hypertension; Mixed hyperlipidemia; History of TIA (transient ischemic attack) Social History Tobacco Use Types Packs/Day Years Used Date Smoking Tobacco: Never Smokeless Tobacco: Never Tobacco Cessation:Counseling Given: Not Answered Alcohol Use Standard Drinks/Week Comments Yes 0 (1 standard drink = 0.6 oz pur e alcohol) occasional Sex and Gender Information Value Date Recorded Sex Assigned at Male 01/14/2025 2:11 PM EDT Legal Sex Male 10:18 PM EDT Gender Identity Male 01/14/2025 2:11 PM EDT Sexual Orientation Heterosexual or Straight 11/2024 2:11 PM EDT documented as of this encounter Last Filed Vital Signs Vital Sign Reading Time Taken Comments Blood Pressure 122/69 01/19/2025 8:50 AM EDT Pulse 79 01/19/2025 8:50 AM EDT Temperature - - Respiratory Rate - - Oxygen Saturation 98% 01/19/2025 8:50 AM EDT Inhaled Oxygen Concentration - - Weight 88.9 kg (196 lb) 01/19/2025 8:50 AM EDT Height 188 cm (6' 2 ) 01/19/2025 8:50 AM EDT Body Mass Index 25.16 01/19/2025 8:50 AM EDT documented in this encounter Progress Notes * Mike Boucher MD - 01/19/2025 9:00 AM EDT Images from the original note were not included. [place] Cardiology - [facility] Subjective Fabian Chamorro is a 79 y.o. year old male patient being seen as a new patient to establish care with cardiology. Patient recently had an abnormal stress test. Patient states he has occasional, leg cramps, LLAMAS, back pain mid back discomfort in his chest. 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 Charcot joint of left foot Diabetic retinopathy associated with type 2 diabetes mellitus ([facility]/HCC) Dyslipidemia Elevated PSA Encounter for long-term current use of medication Erectile dysfunction Gross hematuria History of gastric ulcer History of prostate cancer History of renal calculi Hypercholesterolemia Hypertension Hypomagnesemia Iris nevus, left Localized, primary osteoarthritis of hand Medicare annual wellness visit, subsequent Nocturia Nocturnal leg cramps Back pain Other chest pain Peptic ulcer disease Preoperative clearance 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 Pruritus Reactive lymphadenopathy Kidney stone Rupture of right rotator cuff Seasonal allergic rhinitis due to pollen Tear of medial meniscus of knee Thrombocytopenia TIA (transient ischemic attack) Type 1 diabetes mellitus (CMS/HCC) Transient cerebral ischemia Type 2 diabetes mellitus with diabetic microalbuminuria, with long-term current use of insulin (CMS/HCC) Type 2 diabetes mellitus with hyperglycemia, with long-term current use of insulin (CMS/HCC) Family History Problem Relation Name Age of Onset Stroke Mother Social History Tobacco Use Smoking status: Never Smokeless tobacco: Never Substance Use Topics Alcohol use: Yes Comment: occasional Drug use: Never HPI This is a 79-year-old man who is referred to me by Dr. Blake Larson his PCP due to abnormal stress test. The stress test was performed for preoperative evaluation for urology surgery and to investigate chest pain and shortness of breath He has prior history of hypertension, hyperlipidemia, diabetes all in treatment. He has history of prostate cancer and radiation. He also has a prior history of TIA in 2018. At that time a echocardiogram was negative and no evidence of intracardiac shunting by bubble study. he needs to undergo urologic surgery for kidney stones. It appears that the surgery is not urgent. He has episodes of lower chest pain that happen mostly in the morning. He sits up and waits sometime before it gets relieved. He also has this symptom while riding the lawn more. No clear shortness of breath with exertion although he does not exert himself much. He does not have lower extremity edema. No palpitations. A stress test in August 2023 was negative. Review of Systems Eyes: Positive for visual disturbance. Cardiovascular: Positive for chest pain. Musculoskeletal: Positive for back pain, joint pain and muscle cramps. Neurological: Positive for disturbances in coordination. Objective Visit Vitals BP 122/69 (BP Location: Right arm, Patient Position: Sitting) Pulse 79 Ht 1.88 m (6' 2 ) Wt 88.9 kg (196 lb) SpO2 98% BMI 25.16 kg/m?? Smoking Status Never BSA 2.15 m?? Physical Exam Constitutional: Appearance: He is well-developed. He is not ill-appearing. HENT: Head: Normocephalic and atraumatic. Nose: Nose normal. Eyes: General: No scleral icterus. Pupils: Pupils are equal, round, and reactive to light. Neck: Thyroid: No thyromegaly. Vascular: No JVD. Cardiovascular: Rate and Rhythm: Normal rate and regular rhythm. Pulses: Radial pulses are 2+ on the right side and 2+ on the left side. Heart sounds: Murmur heard. Systolic (RUSB, apex) murmur is present with a grade of 3/6. No friction rub. No gallop. Pulmonary: Effort: Pulmonary effort is normal. No respiratory distress. Breath sounds: Normal breath sounds. No wheezing or rales. Chest: Chest wall: No tenderness. Abdominal: General: Bowel sounds are normal. There is no distension. Palpations: Abdomen is soft. Tenderness: There is no abdominal tenderness. Musculoskeletal: General: No swelling. Cervical back: Neck supple. Skin: General: Skin is warm and dry. Neurological: General: No focal deficit present. Mental Status: He is alert and oriented to person, place, and time. Psychiatric: Mood and Affect: Mood normal. Behavior: Behavior is cooperative. Judgment: Judgment normal. Allergies No Known Allergies Medications Current Outpatient Medications: allopurinol (Zyloprim) 300 mg tablet, Take 300 mg by mouth in the morning., Disp: , Rfl: aspirin 81 mg EC tablet, Take 81 mg by mouth in the morning., Disp: , Rfl: coenzyme Q10 100 mg tablet,chewable, Chew 200 mg in the morning., Disp: , Rfl: cyanocobalamin, vitamin B-12, 1,000 mcg tablet extended release, Take 1,000 mg by mouth in the morning., Disp: , Rfl: dutasteride (Avodart) 0.5 mg capsule, Take 0.5 mg by mouth in the morning., Disp: , Rfl: esomeprazole (NexIUM) 20 mg packet, Take 20 mg by mouth before breakfast., Disp: , Rfl: ferrous sulfate 325 (65 Fe) MG tablet, Take 65 mg by mouth with breakfast., Disp: , Rfl: insulin glargine (Lantus) 100 unit/mL injection vial, Inject 45 Units under the skin two times daily., Disp: , Rfl: isosorbide mononitrate ER (Imdur) 30 mg 24 hr tablet, Take 1 tablet (30 mg) by mouth in the morning. Do not crush or chew., Disp: 90 tablet, Rfl: 3 lisinopril 20 mg tablet, Take 20 mg by mouth in the morning., Disp: , Rfl: magnesium oxide (Mag-Ox) 400 mg (241.3 mg magnesium) tablet, Take 400 mg by mouth in the morning., Disp: , Rfl: metFORMIN (Glucophage) 1,000 mg tablet, Take 1,000 mg by mouth with breakfast., Disp: , Rfl: metoprolol succinate XL (Toprol-XL) 50 mg 24 hr tablet, Take 50 mg by mouth in the morning., Disp: , Rfl: rosuvastatin (Crestor) 10 mg tablet, Take 10 mg by mouth in the morning., Disp: , Rfl: semaglutide (Ozempic) 1 mg/dose (4 mg/3 mL) pen injector, Inject 1 mg under the skin 1 (one) time per week., Disp: , Rfl: tadalafil (Cialis) 20 mg tablet, Take 20 mg by mouth if needed., Disp: , Rfl: Recent Labs Blood testing 12/30/2024: Hemoglobin 11.3, platelets 119, potassium 5.3, BUN 20, creatinine 0.73, EGFR more than 60. lipids 01/11/2023: Triglycerides 297, cholesterol 121, LDL 29, HDL 33. Imaging and other tests Stress test 01/09/2025: Normal myocardial perfusion imaging study. No evidence of ischemia or infarction. Normal left regular systolic function. Ejection fraction 61%. No transient ischemic dilatation.TID 1.0. [address] segment depression in leads V5 and V6 seen following infusion of Lexiscan. ECG 12/30/2024: Sinus rhythm, borderline left axis deviation, nonspecific T wave abnormality. Stress test 08/24/2023: 1. Normal myocardial perfusion study. 2. No ischemia or myocardial infarction. 3. Normal left ventricular systolic function and wall motion. 4. No previous study available for comparison. 1. Lexiscan Cardiolite stress test without diagnostic ST-T changes for ischemia. 2. No provoked chest pain or arrhythmia. 3. Appropriate hemodynamic response to Lexiscan. 4. Myocardial perfusion study will be dictated separately. Echocardiogram : ?? Normal left ventricular end-diastolic dimension. Moderate concentric hypertrophy. The estimated left ventricular ejection fraction is 55 - 60%. Normal left ventricular ejection fraction. No regional wall motion abnormalities. Grade I (impaired relaxation) left ventricular diastolic dysfunction ?? An agitated saline bubble study was performed and was negative for an interatrial shunt. Assessment/Plan Diagnoses and all orders for this visit: Cardiovascular stress test abnormal - isosorbide mononitrate ER (Imdur) 30 mg 24 hr tablet; Take 1 tablet (30 mg) by mouth in the morning. Do not crush or chew. - Case Request Drying Rack Changer: Coronary angiography, Left heart cath - Transthoracic echo (TTE) complete; Future Other chest pain - isosorbide mononitrate ER (Imdur) 30 mg 24 hr tablet; Take 1 tablet (30 mg) by mouth in the morning. Do not crush or chew. - Case Request Drying Rack Changer: Coronary angiography, Left heart cath - Transthoracic echo (TTE) complete; Future Preop cardiovascular exam - Case Request Drying Rack Changer: Coronary angiography, Left heart cath Murmur, heart - Transthoracic echo (TTE) complete; Future Primary hypertension Mixed hyperlipidemia History of TIA (transient ischemic attack) - Transthoracic echo (TTE) complete; Future 1. Abnormal stress test, preop cardiovascular exam, chest pain: I reviewed with him the results of the stress test that showed ischemia by EKG criteria and no ischemia by myocardial perfusion imaging. This was a Lexiscan stress test with nuclear perfusion. He has multiple risk factors for carotid disease and symptoms of chest pain that are suggestive of possible coronary ischemia. Given the above I think we should proceed with cardiac catheterization [left heart catheterization and coronary angiography]. I have explained to him the procedure with risks and benefits, including risks of heart attack, stroke and , as well as contrast nephropathy and radiation injury. he understands and agrees. I will proceed from the left radial artery access site. I will also add Imdur 30 mg daily. He has a prescription for Cialis but his said that he does not take it at all. I cautioned him regarding use of Cialis while he is on isosorbide mononitrate. He expressed understanding. 2. Hypertension: This is controlled, continue the same. 3. Abnormal stress test and presence of significant murmur on exam suggestive of possible mitral regurgitation: I am going to check an echocardiogram. 4. hyperlipidemia: This is controlled according to most recent lipid profile in 2022. Continue current statin therapy. Follow-up after the procedure. No follow-ups on file. Mike Boucher MD documented in this encounter Plan of Treatment Upcoming Encounters Date Type Department Care Team (Late st Contact Info) Description 03/06/2025 10:30 AM EDT Hospital Encounter [facility] Heart [facility] [address] [place] [address] Mike Boucher MD [address] [place] [phone] Cardiovascular stress test abnormal; Preop cardiovascular exam; Other chest pain 03/06/2025 10:30 AM EDT - 03/06/2025 11:30 AM EDT Surgery [facility] [address] [place] [address] Mike Boucher MD [address] [facility] [address] [place] [address] Coronary angiography Scheduled Orders Name Type Priority Associated Diagnoses Order Schedule Transthoracic echo (TTE) complete Echocardiography Routine Cardiovascular stress test abnormal Other chest pain Murmur, heart History of TIA (transient ischemic attack) Expected: 01/19/2025 (Approximate), Expires: 01/19/2027 documented as of this encounter Visit Diagnoses Diagnosis Cardiovascular stress test abnormal- Primary Other chest pain Preop cardiovascular exam Pre-operative cardiovascular examination Murmur, heart Undiagnosed cardiac murmurs Primary hypertension Unspecified essential hypertension Mixed hyperlipidemia History of TIA (transient ischemic attack) Cardiovascular stress test abnormal Preop cardiovascular exam Pre-operative cardiovascular examination Other chest pain Cardiovascular stress test abnormal Preop cardiovascular exam Pre-operative cardiovascular examination Other chest pain documented in this encounter Care Teams Bus Cleaner Relationship Specialty Start Date End Date Blake Larson MD [address] [place] [address] PCP - General Family Medicine 01/14/25 documented as of this encounter
--- OUTSIDE RECORDS SUMMARY | 2025-01-26 09:15 | XMS_ITS | Encounter Summary ---
Author Organization [facility] Address [address] [address] Care Team Providers Care Oil Producer Name Role Phone Blake Larsno MD Primary Care Provider [phone] Blake Larson MD Unavailable Reason for Visit * Reason Comments Nail care Fabianreji Chamorro is a 79 y.o. male who presents for DM Foot Care (PT is here today with his spouse for diabetic foot care, he states the nails are becoming painful for him/BS: 104 A1C: 7.4/LV Dr. Larson 01-02-2025/SS: 12 Encounter Details Date Type Department Care Team (Latest Contact Info) Description 01/26/2025 9:15 AM EDT Procedure Visit [facility] [address] [place] [phone] Errol Powell DPM [address] [place], [place] [phone] Dermatophytosis of nail (Primary Dx); Dystrophic nail; Diabetic polyneuropathy associated with type 2 diabetes mellitus (HCC); Encounter for long-term (current) use of insulin (HCC) Social History Tobacco [...] How often do you attend chur or hindu services? Patient declined 01/22/2024 Do you belong to any clubs o r organizations such as episcopal groups, unions, fraternal or athletic groups, or [...] Recorded Patient Health Questionnaire-2 Score 0 08/05/2024 [facility] - Occupational Stress [...] in the past [address] [facility], were you homeless or living in a [facility] (including now)? No 01/22/2024 Sex and Gender Information Value Date Recorded Sex Assigned at Not on file Legal Sex Male 6:53 PM EDT Gender Identity Not on file Sexual Orientation Not on file documented as of this encounter Last Filed Vital Signs Vital Sign Reading Time Taken Comments Blood Pressure - - Pulse - - Temperature - - Respiratory Rate - - Oxygen Saturation - - Inhaled Oxygen Concentration - - Weight 88.9 kg (196 lb) 01/26/2025 9:22 AM EDT Height 188 cm (6' 2 ) 01/26/2025 9:22 AM EDT Body Mass Index 25.16 01/26/2025 9:22 AM EDT documented in this encounter Patient Instructions * Patient Instructions* Errol Powell DPM - 01/26/2025 9:15 AM EDT As noted documented in this encounter Progress Notes * Errol Powell DPM - 01/26/2025 9:15 AM EDT Images from the original note were not included. Subjective Patient ID: Fabian Chamorro is a 79 y.o. male who presents for Nail care (Fabian Chamorro is a 79 y.o. male who presents for DM Foot Care (PT is here today with his spouse for diabetic foot care, he states the nails are becoming painful for him/BS: 104 A1C: 7.4/LV Dr. Larson 01-02-2025/SS: 12). HPI HPI Onychomycosis/Toenail Fungus: Patient presents requesting nail care. Toenail deformity. Location: Identifies [...] clothing etc. . Medications Current Outpatient Medications: isosorbide mononitrate ER (Imdur) 30 MG 24 hr tablet, Take 30 mg by mouth in the morning., Disp: , Rfl: Accu-Chek Softclix Lancets lancets, USE DIRECTED to test BLOOD SUGAR THREE TIMES DAILY, Disp: 100 each, Rfl: 2 allopurinol (Zyloprim) 300 MG tablet, Take 1 tablet (300 mg) by mouth Daily, Disp: 90 tablet, Rfl: 3 Blood Glucose Monitoring Suppl (True Metrix Meter) w/Device kit, 1 each in the morning and 1 each in the evening and 1 each before bedtime., Disp: 1 kit, Rfl: 0 Coenzyme Q10 (Co Q-10) 100 MG chewable tablet, , Disp: , Rfl: Cyanocobalamin (Vitamin B12) 1000 MCG tablet controlled-release, 1 (one) time each day at the same time, Disp: , Rfl: esomeprazole (NexIUM) [address] capsule, Take 40 mg by mouth in the morning. Take before meals., Disp: , Rfl: ferrous sulfate 325 (65 Fe) MG tablet, 1 (one) time each day at the same time, Disp: , Rfl: insulin glargine (Lantus SoloStar) 100 UNIT/ML pen, Inject 45 Units under the skin at bedtime, Disp: 3 mL, Rfl: 3 insulin syringe-needle U-100 (TechLITE Insulin Syringe) 31G X 516 1 mL misc, As needed, Disp: 100each, [...] at the same time, Disp: , Rfl: Multiple Vitamins-Minerals (PreserVision AREDS) tablet, , Disp: , Rfl: rosuvastatin (Crestor) 10 MG tablet, Take 1 tablet (10 mg) by mouth in the morning., Disp: 90 tablet, Rfl: 3 semaglutide (Ozempic, 1 MG/DOSE,) 4 MG/3ML solution pen-injector, Inject 1 mg under the skin 1 (one) time per week, Disp: 3 each, Rfl: 3 True Metrix Blood Glucose Test test [...] FOOT EXAM: Date of Last Foot Exam 01/26/2025 Sensory testing performed: sensations diminished Sensory and [...] deficits. TINELS SIGN: Negative along the tarsal canal. VIBRATORY: Absent at the MTP joints. SHARP [...] reducing shoe and digital trauma; reducing potential risks associated with at risk diabetic neuropathic foot condition, and related complications. This note was created with the assistance of a speech recognition program. While intending to generate a timely document that accurately reflects the content of the visit, no guarantee can be provided that every grammatical or spelling mistake has been or will be identified or corrected. Thank you for your understanding. Errol Powell DPM documented in this encounter Plan of Treatment Upcoming Encounters Date Type Department Care Team (Late st Contact Info) Description 02/03/2025 10:30 AM EDT [facility] Visit [facility] [address] [place] [address] Blake Larson MD [address] [place] [phone] 04/28/2025 9:15 AM EST Procedure Visit [facility] [address] [place] [phone] Errol Powell DPM [address] [facility], [place] [phone] 08/04/2025 10:20 AM EST Office Visit [facility] [address] [place] [phone] Sophia Mcmahon MD [address] [place] [address] documented as of this encounter Visit Diagnoses Diagnosis Dermatophytosis of nail- Primary Dystrophic nail Other specified disease of nail Diabetic polyneuropathy associated with type 2 diabetes mellitus (HCC) Encounter for long-term (current) use of insulin (HCC) Encounter for long-term (current) use of insulin documented in this encounter Additional Health Concerns Assessment Noted Time PHQ-9 Depression Total Score: 2 08/05/19 10:00 AM EST documented as of this encounter Care Teams Oil Producer Relationship Specialty Start Date End Date Blake Larson MD [address] [place] [phone] PCP - General Family Medicine 07/24/23 Blake Larson MD [address] [place] [address] PCP - ACO Reach 07/18/24 documented as of this encounter
--- OUTSIDE RECORDS SUMMARY | 2025-01-31 08:23 | XMS_ITS | Encounter Summary ---
Author Organization [facility] Address [address] [place] [address] Care Team Providers Care Minister Helper Name Role Phone Blkae Larson MD Primary Care Provider [phone] Blake Larson MD Unavailable Encounter Details Date Type Department Care Team (Late st Contact Info) Description 01/06/2025 Orders Only [facility] [address] [place] [phone] Jonnie Mancia MD [address] [place] [address] Social History Tobacco Use Types [...] week 01/22/2024 How often do you attend [facility] or caodaism services? Patient declined 01/22/2024 Do you belong to any clubs o r organizations such as rastafari groups, unions, fraternal or athletic groups, or [...] Recorded Patient Health Questionnaire-2 Score 0 08/05/2024 [facility] - Occupational Stress [...] any time in the past 12 m [facility], were you homeless or living in a assisted (including now)? No 01/22/2024 Sex and Gender [...] Office Visit [facility] [address] [place] [address] Blake Larson MD [address] [place] [address] 04/28/2025 9:15 AM EST Procedure Visit [facility] [address] [place] [address] Errol Powell DPM [address] [facility] [place] [address] 08/04/2025 10:20 AM EST Office Visit [facility] [address] [place] [address] Sophia Mcmahon MD [address] [place] [address] documented as of this encounter [...] documented as of this encounter Care Teams Minister Helper Relationship Specialty Start Date End Date Blake Larson MD [address] [place] [phone] PCP - General Family Medicine 07/24/23 Blake Larson MD [address] [place] [address] PCP - ACO Reach 07/18/24 documented as of this encounter
--- OUTSIDE RECORDS SUMMARY | 2025-01-31 08:23 | XMS_ITS | Encounter Summary ---
Author Organization [facility] Address [address] [place] [address] Care Team Providers Care Packerhead Machine Operator Name Role Phone Blake Larson MD Primary Care Provider [phone] Blake Larson MD Unavailable Encounter Details Date Type Department Care Team (Late st Contact Info) Description 08/14/2024 Orders Only [facility] [address] [place] [phone] [place] [address] [place] [address] Social History Tobacco Use Types [...] How often do you attend [facility] or latter day services? Patient declined 01/22/2024 Do you belong [...] Recorded Patient Health Questionnaire-2 Score 0 08/05/2024 [facility] - Occupational Stress Questionnaire Answer Date [...] time in the past 12 m [facility], were you homeless or living [...] Office Visit [facility] [address] [place] [address] Blake Larson MD [address] [place] [address] 04/28/2025 9:15 AM EST Procedure Visit [facility] [address] [place] [address] Errol Powell DPM [address] [place] [address] 08/04/2025 10:20 AM EST Office Visit [facility] [address] [place] [address] Sophia Mcmahon MD [address] [place] [address] documented as of this encounter Procedures Procedure Name Priority Date/Time Associated Diagnosis Comments DIABETES EYE EXAM Routine 08/14/2024 3:15 PM EST documented in this encounter Results * Hm Diabetes Eye Exam (08/14/2024 3:15 PM EST) Benito Krause MD HEALTH MAINTENANCE Final Resul t documented in this encounter Visit Diagnoses Not on filedocumented in this encounter Additional Health Concerns Assessment Noted Time PHQ-9 Depression Total Score: 2 08/05/19 25 10:00 AM EST documented as of this encounter Care Teams Packerhead Machine Operator Relationship Specialty Start Date End Date Blake Larson MD [address] [place] [address] PCP - General Family Medicine 07/24/23 Blake Larson MD [address] [place] [address] PCP - ACO Reach 07/18/24 documented as of this encounter
--- OUTSIDE RECORDS SUMMARY | 2025-01-31 08:23 | XMS_ITS | Encounter Summary ---
Author Organization [facility] Address [address] [place] [address] Phone Care Team Providers Care Custodial Foreman Name Role Phone Unavailable Primary Care Provider Unavailabl e Encounter Details Date Type Department Care Team (Late st Contact Info) Description 08/22/2023 Scanned Document [facility] [address] [place] [address] Scanning, Generic Provider Social History [...]
--- OUTSIDE RECORDS SUMMARY | 2025-01-31 08:24 | XMS_ITS | Clinical Summary ---
Author Organization [facility] Address [address] [place] [address] Phone Care Team Providers Care Manager Life Name Role Phone Unavailable Primary Care Provider [...] topic Insurance MEDICARE PART A AND B [facility]
--- OUTSIDE RECORDS SUMMARY | 2025-01-31 08:24 | XMS_ITS | Encounter Summary ---
Author Organization [facility] Address [address] [place] [address] Care Team Providers Care Account Manager Education Name Role Phone Blake Larson MD Primary Care Provider [phone] Blake Larson MD Unavailable Encounter Details Date Type Department Care Team (Latest Contact Info) Description 01/26/2025 Travel Social History Tobacco Use Types Packs/Day Years [...] often do you attend chur ch or sabianism services? Patient declined 01/22/2024 Do you belong to any clubs o r organizations such as caodaism groups, unions, fraternal or athletic groups, or [...] Health Questionnaire-2 Score 0 08/05/2024 [facility] - Occupational [...] in the past 12 m [facility], were you homeless or living in a [...] EDT Office Visit [facility] [address] [place] [address] Blake Larson MD [address] [place] [address] 04/28/2025 9:15 AM EST Procedure Visit [facility] [address] [place] [phone] Errol Powell DPM [address] [place] [address] 08/04/2025 10:20 AM EST Office Visit [facility] [address] [place] [address] Sophia Mcmahon MD [address] [place] [address] documented as of this encounter Visit Diagnoses Not on filedocumented in this encounter Additional Health Concerns Assessment Noted Time PHQ-9 Depression Total Score: 2 08/05/19 25 10:00 AM EST documented as of this encounter Care Teams Account Manager Education Relationship Specialty Start Date End Date Blake Larson MD [address] [place] [address] PCP - General Family Medicine 07/24/23 Blake Larson MD [address] [place] [address] PCP - ACO Reach 07/18/24 documented as of this encounter
--- OUTSIDE RECORDS SUMMARY | 2025-01-31 08:24 | XMS_ITS | Clinical Summary ---
Author Organization [facility] Address [address] [place] [address] Care Team Providers Care Timber Inspector Name Role Phone DavenportAlejandro Florecita GAN Primary [...] N ot on file 07/08/2022 Data from: [email or web address] Last address used for calculation [address] [...] Discussion 06/11/2024 Influenza Vaccine (#1) 2025 Insurance [facility] MEDICARE Care Teams Timber Inspector Relationship Specialty Start Date End Date Alejandro Davenport DO PCP - General Family Medicine 10/02/13
--- OUTSIDE RECORDS SUMMARY | 2025-01-31 08:24 | XMS_ITS | CCD ---
Author Organization [facility] Care Team Providers Care Plane Tender Name Role Phone PHYSICIAN, DEFAULT Unavailable Unavailable PHYSICIAN, DEFAULT Unavailable Unavailable Alejandro Davenport Primary Care Provider BLAKE NG Primary Care Physician [phone] MD Jermaine Mancia Attending Provider MD Blake Ng Primary Care Provider MD Jermaine Mancia Attending Provider MD Blake Ng Primary Care Provider MD Rosy Pina Attending Provider MD Jermaine Mancia Referring Provider MD Rosy Pina Attending Provider [...] Referring Provider MD Jermaine Mancia Attending Provider [phone] MD Rosy Pina Referring Provider MD Blake Ng Primary Care Provider MD Rosy Pina Attending Provider MD Jermaine Mancia Referring Provider Blake Ng MD Primary Care Provider [phone] MD Blake Ng Primary Care Provider MD Rosy Pina Attending Provider MD Jermaine Mancia Referring Provider MD Blake Ng Attending Provider DO María Reddy Referring Provider MD Blake Ng Primary Care Provider MD Rosy Pina Attending Provider MD Jermaine Mancia Referring Provider MD Blake Ng Primary Care Provider MD Jermaine Mancia Attending Provider MD Rosy Pina Attending Provider MD Jermaine Mancia Referring Provider MD Blake Ng Attending Provider [phone] Blake Ng MD Primary Care Provider Blake Ng MD Unavailable Blake Ng MD Primary Care Provider [phone] Blake Ng MD Attending Provider Blake Ng [...] Bernabe Referring Unavailable NADERER, BLAKE Attending Unavailable MANCIA, Jermaine Cano Attending Unavailable MANCIA, Jermaine Cano Attending Unavailable MANCIA, Jermaine Cano Admitting Unavailable MANCIA, Jermaine Cano Attending Unavailable Medications Current Medications Medication Drug Class(es) Dates Sig (Normalized) Sig (Original) acetaminophen 325 mg / HYDROcodone bitartrate 7.5 mg oral tablet (1 source) Opioid Agonist Start: 03-16-2022 take 1 tablet by mouth once, then take 1 tablet by mouth every hour [place] 325 mg-7.5 mg oral tablet 1 tab(s), Oral, Once, 1 tab(s), Refill(s) 0, Take 1 hour prior to procedure, [facility], 180, cm, 12/23/21 8:24:00 EDT, Height/Length Dosing, [...] ascorbic acid 226 mg / beta carotene 82715 unt / cuprous oxide 0.8 mg / [...] daily Start: 12-29-2011 take 1 capsule by [facility] once daily Nexium 40 mg Cap-EC 40 [...] hyperglycemia, with long-term current use of insulin ([facility]) Inject 45 Units under the skin at bedtime 3 mL 3 01/22/2025 Active Start: 07-03-2024 inject 45 [IU] by zepeda bcutaneous injection at bedtime insulin glargine (Lantus) 100 UNIT/ML injection Indications: Type 2 diabetes mellitus with hyperglycemia, with long-term current use of insulin ([facility]) Inject 45 Units under the skin at bedtime 45 mL 3 07/03/2024 Active Start: 04-07-2024 inject 45 [IU] by zepeda bcutaneous injection at bedtime insulin glargine (Lantus) 100 UNIT/ML injection Indications: Type 2 diabetes mellitus with hyperglycemia, with long-term current use of insulin ([facility]) Inject 45 Units under the skin at [...] mononitrate 30 mg extended release oral tablet (2 sources) Nitrate Vasodilator Start: End: take 1 tablet [...] daily. Magnesium Oxide, Elemental, 400 MG tablet (15 sources) Start: 025 take 1 tablet by [...] on above: Take 1,000 mg by nataly th twice daily. 24 hr metoprolol succinate [...] hyperglycemia, with long-term current use of insulin ([facility]) Inject 1 mg under the skin 1 [...] hyperglycemia, with long-term current use of insulin ([facility]) Inject 1 mg under the skin 1 [...] hours., # 30 tab(s), Refills(s) 3, Pharmacy: [facility] [id number], 180, cm, 12/29/24 8:48:00 EDT, Height/Length Dosing, [...] 07/03/2024 01/02/2025 Discontinued take 1 capsule by [facility] every twenty-four hours at bedtime tamsulosin (Flomax) 0.4 MG 24 hr capsule Take 0.4 mg by mouth at bedtime. 0 Active Comment on above: Take 0.4 mg by mouth once daily. ubidecarenone 100 mg oral ca psule (20 sources) Start: 05-08-2022 Start: 12-29-2011 take 1 capsule by [facility] twice daily Q-Sorb Co Q-10 oral capsule [...] Comment on above: Take 1,000 mcg by [facility] once daily. Vitamins A,C,W-Ygov-Pnifbd (Preservision Areds) 14,320-226-200 sloe-iy-hwdh Capsule (14 sources) Start: 05-08-2022 take 1 capsule by mouth twice daily Vitamins A,C,C-Ohzm-Gkagaa (Preservision Areds) 14,320-226-200 dlvf-wv-zekw Capsule Active 1 CAP PO Twice daily May 08, 2022 1:00am Start: 05-08-2022 take 1 capsule by [facility] twice daily Vitamins A,C,A-Rfcx-Auxyty (Preservision Areds) 14,320-226-200 bxiu-ii-gink Capsule Active 1 CAP PO Twice daily [...] Comment on above: Take 1 tablet by [facility] twice daily. 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 of insulin] 03-24-2024 Episodic Other [...] palsy 05-09-2018 Episodic Other non-traumatic joint disorders (20 sources) Charcot's joint of foot; 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: [Charcot's joint, left ankle and foot] Onset: 08-05-2024 08-05-2024 Chronic Other non-traumatic joint disorders (2 sources) Pain in elbow; 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: [Pain in left elbow] 10-20-2024 Episodic Other nutritional; endocrine; and metabolic disorders (16 sources) Hypomagnesemia; 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: [Hypomagnesemia] Onset: 08-07-2024 08-07-2024 [...] unspecified] Onset: 05-04-2020 12-25-2022 Episodic Mood disorders (20 sources) Mood disorders Onset: 08-05-2024 08-05-2024 Other aftercare (1 source) Other [facility] (current) drug therapy; 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: [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] Onset: 01-19-2022 Episodic Other aftercare (1 source) sanitation associate (current) use of insulin; 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: [FACILITY MAINTENANCE SUPERVISOR CURRENT USE OF INSULIN] Onset: 01-19-2022 Episodic Other aftercare (20 sources) Long-term current use of drug therapy; 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: [Other mcc (current) drug therapy] Onset: 01-24-2024 01-24-2024 Episodic [...] Test Name Value Interpretation Reference Range Facility CA ECHO DOPPLER COMPLETEon 0 01-30-2025 [place] [address] Cardiology Report Signed Patient: ZACH CHAMORRO MR#: [id number] : 1945 Acct:[id number] Age/Sex: 79 / M ADM Date: 01/30/25 Loc: CARD Attending Dr: CASSANDRA JOSE Ordering Physician: CASSANDRA JOSE Date of Service: 01/30/25 Procedure(s): CA echo doppler complete Accession Number(s): [id number] cc: CASSANDRA JOSE; Blake Ng M.D. Patient Name: ZACH CHAMORRO MR#: [id number] : 1945 Exam Date: 01/30/2025 Ordering Doctor: DR CASSANDRA JOSE M.D. ECHOCARDIOGRAM REPORT PROCEDURE: CA ECHO DOPPLER COMPLETE INDICATIONS: Abnormal stress test, Chest pain, Murmur COMPARISON: None. DESCRIPTION: COMPLETE ECHOCARDIOGRAM Real-time transthoracic echocardiography with 2D, M-mode, spectral and color flow Doppler performed. QUALITY: Technical quality was good. LEFT VENTRICLE: Normal chamber size. Severe concentric left ventricular hypertrophy. LV EF: Global left ventricular systolic function is hyperdynamic; visually estimated ejection fraction is 65 to 70%. Calculated left ventricular ejection fraction is 68%. No significant wall motion abnormalities. DIASTOLIC: Diastolic function is indeterminate. ATRIAL SEPTUM: Inadequately seen. LEFT ATRIUM: Normal chamber size. RIGHT ATRIUM: Mild dilatation. RIGHT VENTRICLE: Normal chamber size. Normal right ventricular systolic function. TRICUSPID VALVE: Normal mobility and thickness. No stenosis with mild regurgitation. Mild pulmonary hypertension. RVSP 38mmHg. MITRAL VALVE: Moderately thickened with decreased mobility. Severe mitral annular calcification. No mitral regurgitation. MVA 2.3cm2, peak/mean gradients 7/3mmHg. Gradients are likely elevated due to hyperdynamic state +/- volume overload. AORTIC VALVE: The aortic valve is probably trileaflet. Moderately calcified aortic valve with diminished mobility. Doppler velocity suggests mild to moderate aortic valve stenosis. DVI 0.5, SHANNON 1.2cm2, Vmax 3.1m/s. Velocities and gradients may be overestimated due to hyperdynamic left ventricular systolic function. Mild aortic regurgitation. AORTIC ROOT: Mildly dilated. Measuring 4.0cm. The ascending aorta measures 3.7cm. PULMONIC VALVE: Normal thickness and mobility. No stenosis. Trivial regurgitation. PERICARDIUM: No evidence of pericardial effusion. IVC: Collapses with inspiration. Mildly dilated measuring 2.2cm. CONCLUSION: 1. Global left ventricular systolic function is hyperdynamic; visually estimated ejection fraction is 65 to 70% 2. Severe left ventricular hypertrophy 3. Diastolic function is indeterminate. 4. Normal right ventricular size and systolic function 5. Mild right atrial dilatation 6. Mild tricuspid regurgitation 7. Mildly elevated right ventricular systolic pressure; RVSP 38 mmHg 8. Mild to moderate aortic valve stenosis; mild aortic valve regurgitation 9. The aortic root is mildly dilated measuring 4.0 cm Adult Echocardiography Procedure Report Left Ventricle LVEDD (3.7 - 5.6 cm): 3.49 cm LVESD (2.2 - 4.0 cm): 2.25 cm LVIVS thickness (0.6 - 1.2 cm): 1.86 cm LVPW thickness (0.5 - 1.0 cm): 1.44 cm e': 0.04 m/s E - e': 22.76 LVOT Max Gradient: 10.25 mm[Hg] LVOT Area (cm2): 1.60 m/s Peak Velocity (LVOT): 1.60 m/s Mean Velocity (LVOT): 1.16 m/s LVOT Diameter 1.66 cm Left Ventricular Ejection Fraction: 68.35 % Left Atrium LA Volume Index (2D A2C): 27.65 ml/m2 Left Atrium Systolic Dimension: 3.81 cm Mitral Valve MV E to A Ratio: 0.72 Mitral Valve A-Wave Peak Velocity: 1.27 m/s Mitral Valve E-Wave Peak Velocity: 0.92 m/s Right Ventricle RV Internal Diastolic Dimension: 3.23 cm Aorta AO Root Diam: 3.99 cm Ascending Ao Diam: 3.67 cm Aortic Valve AoV Area (Peak Yariel): 1.12 cm2, 1.12 cm2 AoV Area (VTI): 1.19 cm2, 1.19 cm2 Peak Velocity(Antegrade Flow): 3.09 m/s Peak Gradient(Antegrade Flow): 38.27 (more content not included)... [facility] Radiology, Radiologist, - 01/30/[address] [address] Cardiology Report Signed Patient: ZACH CHAMORRO MR#: [id number] : 1945 Acct:[id number] Age/Sex: 79 / M ADM Date: 01/30/25 Loc: CARD Attending Dr: CASSANDRA JOSE Ordering Physician: CASSANDRA JOSE Date of Service: 01/30/25 Procedure(s): CA echo doppler complete Accession Number(s): [id number] cc: CASSANDRA JOSE; Blake Ng M.D. Patient Name: ZACH CHAMORRO MR#: [id number] : 1945 Exam Date: 01/30/2025 Ordering Doctor: DR CASSANDRA JOSE M.D. ECHOCARDIOGRAM REPORT PROCEDURE: CA ECHO DOPPLER COMPLETE INDICATIONS: Abnormal stress test, Chest pain, Murmur COMPARISON: None. DESCRIPTION: COMPLETE ECHOCARDIOGRAM Real-time transthoracic echocardiography with 2D, M-mode, spectral and color flow Doppler performed. QUALITY: Technical quality was good. LEFT VENTRICLE: Normal chamber size. Severe concentric left ventricular hypertrophy. LV EF: Global left ventricular systolic function is hyperdynamic; visually estimated ejection fraction is 65 to 70%. Calculated left ventricular ejection fraction is 68%. No significant wall motion abnormalities. DIASTOLIC: Diastolic function is indeterminate. ATRIAL SEPTUM: Inadequately seen. LEFT ATRIUM: Normal chamber size. RIGHT ATRIUM: Mild dilatation. RIGHT VENTRICLE: Normal chamber size. Normal right ventricular systolic function. TRICUSPID VALVE: Normal mobility and thickness. No stenosis with mild regurgitation. Mild pulmonary hypertension. RVSP 38mmHg. MITRAL VALVE: Moderately thickened with decreased mobility. Severe mitral annular calcification. No mitral regurgitation. MVA 2.3cm2, peak/mean gradients 7/3mmHg. Gradients are likely elevated due to hyperdynamic state +/- volume overload. AORTIC VALVE: The aortic valve is probably trileaflet. Moderately calcified aortic valve with diminished mobility. Doppler velocity suggests mild to moderate aortic valve stenosis. DVI 0.5, SHANNON 1.2cm2, Vmax 3.1m/s. Velocities and gradients may be overestimated due to hyperdynamic left ventricular systolic function. Mild aortic regurgitation. AORTIC ROOT: Mildly dilated. Measuring 4.0cm. The ascending aorta measures 3.7cm. PULMONIC VALVE: Normal thickness and mobility. No stenosis. Trivial regurgitation. PERICARDIUM: No evidence of pericardial effusion. IVC: Collapses with inspiration. Mildly dilated measuring 2.2cm. CONCLUSION: 1. Global left ventricular systolic function is hyperdynamic; visually estimated ejection fraction is 65 to 70% 2. Severe left ventricular hypertrophy 3. Diastolic function is indeterminate. 4. Normal right ventricular size and systolic function 5. Mild right atrial dilatation 6. Mild tricuspid regurgitation 7. Mildly elevated right ventricular systolic pressure; RVSP 38 mmHg 8. Mild to moderate aortic valve stenosis; mild aortic valve regurgitation 9. The aortic root is mildly dilated measuring 4.0 cm Adult Echocardiography Procedure Report Left Ventricle LVEDD (3.7 - 5.6 cm): 3.49 cm LVESD (2.2 - 4.0 cm): 2.25 cm LVIVS thickness (0.6 - 1.2 cm): 1.86 cm LVPW thickness (0.5 - 1.0 cm): 1.44 cm e': 0.04 m/s E - e': 22.76 LVOT Max Gradient: 10.25 mm[Hg] LVOT Area (cm2): 1.60 m/s Peak Velocity (LVOT): 1.60 m/s Mean Velocity (LVOT): 1.16 m/s LVOT Diameter 1.66 cm Left Ventricular Ejection Fraction: 68.35 % Left Atrium LA Volume Index (2D A2C): 27.65 ml/m2 Left Atrium Systolic Dimension: 3.81 cm Mitral Valve MV E to A Ratio: 0.72 Mitral Valve A-Wave Peak Velocity: 1.27 m/s Mitral Valve E-Wave Peak Velocity: 0.92 m/s Right Ventricle RV Internal Diastolic Dimension: 3.23 cm Aorta AO Root Diam: 3.99 cm Ascending Ao Diam: 3.67 cm Aortic Valve AoV Area (Peak Yariel): 1.12 cm2, 1.12 cm2 AoV Area (VTI): 1.19 cm2, 1.19 cm2 Peak Velocity(Antegrade Flow): 3.09 m/s Peak Gradient(Antegrade Flow): 38.27 mm[Hg] Mean Velocity(Antegrade Flow): 2.12 m/s Mean Gradient(Antegrade Flow): 20.86 mm[Hg] Velocity Time Integral: 60.53 cm Tricuspid Valve Peak Velocity (Regurgitant Flow): 2.45 m/s, 2.29 m/s, 2.75 m/s Pulmonic Valve Peak Velocity: 0.93 m/s Peak Gradient: 3.47 mm[Hg] Right Atrium Right Atrium Systolic Pressure: 34.34 ml, 34.34 ml Dictated by: Argelia Gonsales M.D. on 01/30/2025 at 13:18 Approved by: Argelia Gonsales M.D. on 01/30/2025 at 13:40 Dictated By: Argelia Gonsales M.D. 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 Worker: [facility] Radiology Study observation (narrative) [facility] CA ECHO DOPPLER COMPLETEOrde red By: Radiologist Radiology on 01-30-2025 [facility] Work Phone: Office Visiton 01-19-2025 Follow-up visit [id number] Zach Chamorro 1945 M [facility] Provider Department Center 01/19/2025 Paolo-CASSANDRA JOSE [facility] Hos Family History Problem Relation Age of Onset Stroke Mother Family Status - Relation Status Age at Mother Father Level of Service:24484 [place] OFFICE/OUTPATIENT [facility] 60 MINUTES Normal [facility] Orders Onlyon 01-14-2025 Orders Only [id number] Zach Chamorro 1945 Date Provider Department Center 01/14/2025 [id number], [facility] Hos No family history on file Normal [facility] NM CARMEN PERF SPECT REST STRon 01-12-2025 [place] [address] Nuclear Medicine Report Signed Patient: ZACH CHAMORRO MR#: [id number] : 1945 Acct:[id number] Age/Sex: 79 / M ADM Date: 01/09/25 Loc: NM Attending Dr: Blake Ng M.D. Ordering Physician: Blake Ng M.D. Date of Service: 01/09/25 Procedure(s): NM carmen perf SPECT rest str Accession Number(s): [id number] cc: Blake Ng M.D. Patient Name: ZACH CHAMORRO MR#: [id number] : 1945 Exam Date: 01/09/2025 Ordering Doctor: DR BLAKE A. NADERER . RADIOLOGY REPORT PROCEDURE: NM CARMEN PERF [...] the study was pending per attending physician [facility] . For more details please see separate [...] Signed By: 01/12/25 1234 DD/ 1233 TD/TT: Piggery Worker: [facility] Radiology, Radiologist, - 01/12/2025 [place] [address] Nuclear Medicine Report Signed Patient: ZACH CHAMORRO MR#: [id number] : 1945 Acct:[id number] Age/Sex: 79 / M ADM Date: 01/09/25 Loc: NM Attending Dr: Blake Ng M.D. Ordering Physician: Blake Ng M.D. Date of Service: 01/09/25 Procedure(s): NM carmen perf SPECT rest str Accession Number(s): [id number] cc: Blake Ng M.D. Patient Name: ZACH CHAMORRO MR#: [id number] : 1945 Exam Date: 01/09/2025 Ordering Doctor: [...] the study was pending per attending physician [facility] . For more details please see separate [...] Signed By: 01/12/25 1234 DD/ 1233 TD/TT: Piggery Worker: [facility] Radiology Study observation (narrative) [facility] NM CARMEN PERF SPECT REST STROr dered By: Radiologist Radiology on 01-12-2025 [facility] Work Phone: Urine Cytology ([facility])on 0 01-06-2025 Urine Cytology Diagnosis Info Invalid Interpretation Code [facility] Comment on above: Result Comment: A:Ur ine,Urine:Voided Interpretation - Adequate cellularity for evaluation. CPT 63909 MicroScopic Description - Adequacy - Gross Description Site ID:A color Yellow fixative Alcohol Specimen designated Urine received in alcohol preservative and labeled with the patient???s name, consists of 80ml clear yellow fluid. Electronically signed by : on: 01/06/2025 08:34:52 Performed By: #### 1 [id number] #### [facility] [address] [place] [address] ECG 12-LEADon 12-31-[address] [address] Electrocardiograph Report Signed Patient: ZACH CHAMORRO MR#: [id number] : 1945 Acct:[id number] Age/Sex: 79 / M ADM Date: 12/30/24 Loc: CT Attending Dr: Jermaine Mancia M.D. Ordering Physician: Jermaine Mancia M.D. 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 Measurements Intervals [place] Rate: 78 P: 26 VT: 188 QRS: -24 QRSD: 87 T: 91 QT: 359 QTc: 411 Interpretive Statements SINUS RHYTHM BORDERLINE LEFT AXIS DEVIATION [QRS AXIS < -20] NONSPECIFIC T-WAVE ABNORMALITY Compared to ECG 08/29/2017 10:21:07 T-wave abnormality now present Myocardial infarct finding no longer present Electronically Signed On 12-31-2024 7:01:15 EDT by CASSANDRA JOSE M.D. Dictated By: CASSANDRA JOSE Signed By: 12/31/24 0701 DD/ 0841 TD/TT: Piggery Worker: [facility] Radiology, Radiologist, - 12/31/2024 The [place] [id number] Electrocardiograph Report Signed Patient: ZACH CHAMORRO MR#: [id number] : 1945 Acct:[id number] Age/Sex: 79 / M ADM Date: 12/30/24 Loc: CT Attending Dr: Jermaine Mancia M.D. Ordering Physician: Jermaine Mancia M.D. 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 Measurements Intervals [place] Rate: 78 P: 26 VT: 188 QRS: -24 QRSD: 87 T: 91 QT: 359 QTc: 411 Interpretive Statements SINUS RHYTHM BORDERLINE LEFT AXIS DEVIATION [QRS AXIS < -20] NONSPECIFIC T-WAVE ABNORMALITY Compared to ECG 08/29/2017 10:21:07 T-wave abnormality now present Myocardial infarct finding no longer present Electronically Signed On 12-31-2024 7:01:15 EDT by CASSANDRA JOSE M.D. Dictated By: CASSANDRA JOSE Signed By: 12/31/24 0701 DD/ 0841 TD/TT: Piggery Worker: [facility] ECG 12-LEADOrdered By: Radio logist Radiology on 12-31-2024 [facility] Work Phone: ALL BASIC METABOLIC PANELon 12-30-2024 Anion gap [Moles/Vol] 12 mmol/L [facility] Calcium [Mass/Vol] 9.6 mg/dL 8.5 - 10. 1 mg/dL [facility] Chloride [Moles/Vol] 102 mmol/L 98 - 10 7 mmol/L [facility] CO2 [Moles/Vol] 30.3 mmol/L 21.0 - 32.0 mmol/L [facility] Creatinine [Mass/Vol] 0.73 mg/dL 0.70 - 1.30 mg/dL [facility] GFR/1.73 sq M.predicted CKD-EPI (S/P/Bld) [Vol rate/Area] >60 >=60 mL/min/1.73m 2 [facility] Glucose [Mass/Vol] 168 mg/dL High 74 - 106 mg/dL [facility] Interpretation and review of laboratory results Abnormal [facility] Potassium [Moles/Vol] 5.3 mmol/L High 3.5 - 5.1 mmol/L [facility] Sodium [Moles/Vol] 139 mmol/L 136 - 145 mmol/L [facility] TB EGFR-NON AF [place] >60 >=60 mL/min/1.73m 2 [facility] Urea nitrogen [Mass/Vol] 20 mg/dL High 7.0 - 18.0 mg/dL [facility] Urea nitrogen/Creatinine [Mass ratio] 27.4 mg/mg [facility] CT ABDOMEN/PELVIS WO CONTo n 12-30-2024 [place] [address] CT Scan Report Signed Patient: ZACH CHAMORRO MR#: [id number] : 1945 Acct:[id number] Age/Sex: 79 / M ADM Date: 12/30/24 Loc: CT Attending Dr: Jermaine Mancia M.D. Ordering Physician: Jermaine Mancia M.D. Date of Service: 12/30/24 Procedure(s): CT abdomen pelvis wo con Accession Number(s): [id number] cc: Blake Ng M.D. [place] [id number] Patient Name: ZACH CHAMORRO MRN: [facility]:[id number] date: 1945 Sex: M Assigned Patient Location: CT Current Patient Location: [facility] Accession/Order Number: [id number] Exam Date: 12/30/2024 11:04 Report Date: 12/30/2024 [...] uropathy. Impression dictated by: Ritchie Cabrera Jr., D.ORowena 12/30/2024 11:06 AM Dictation Location: [place] [address] Electronically authenticated by: [id number] Y Date: 12/30/2024 11:06 Dictated By: Ritchie Cabrera M.D. Signed By: 12/30/24 1108 DD/ 1106 TD/TT: Piggery Worker: [facility] Radiology, Radiologist, - 12/30/[address] [address] [address] Scan Report Signed Patient: ZACH CHAMORRO MR#: [id number] : 1945 Acct:[id number] Age/Sex: 79 / M ADM Date: 12/30/24 Loc: CT Attending Dr: Jermaine Mancia M.D. Ordering Physician: Jermaine Mancia M.D. Date of Service: 12/30/24 Procedure(s): CT abdomen pelvis wo con Accession Number(s): [id number] cc: Blake Ng M.D. The [address] [address] Patient Name: ZACH CHAMORRO MRN: [facility]:[id number] date: 1945 Sex: M Assigned Patient Location: CT Current [facility] Location[facility] Accession/Order Number: [id number] Exam Date: 12/30/2024 11:04 Report Date: 12/30/2024 [...] obstructive uropathy. Impression dictated by: Ritchie Cabrera Jr. DNunu 12/30/2024 11:06 AM Dictation Location: [place] [address] Electronically authenticated by: [id number] Y Date: 12/30/2024 11:06 Dictated By: Ritchie Cabrera M.D. Signed By: 12/30/24 1108 DD/ 110 TD/TT: Piggery Worker: [facility] Radiology Study observation (narrative) [facility] CT ABDOMEN/PELVIS WO CONTO rdered By: Radiologist Radiology on 12-30-2024 [facility] Work Phone: ECG 12-LEADon 12-30-2024 Radiology Study observation (narrative) [facility] Ambulatory Visit Summaryon 0 12-29-2024 Ambulatory Visit [...] Your Care Team Attending Physician - Jermaine MANCIA MD Primary Care Physician - BLAKE NG [...] Following Appointments Follow Up with MIKEY ARORA, Jermaine Cano, JAVI When: Where: [facility] [address] , [place] [address]- Medications What How Much When Instructions New [...] Information [facility]: [address] [place], [place] [id number] [phone] Allergies No Known Allergies Problems Ongoing - [...] your experien (more content not included)... Normal [facility] Urine Cytology ([facility])on 0 12-29-2024 Method of Extraction Voided Normal [facility] Comment on above: Performed By: #### 1 [id number] #### [facility] [address] [place] [address] UC Number of Jars 1 Invalid Interpretation Code [facility] Comment on above: Performed By: #### 1 [id number] #### [facility] [address] [place] [address] Specimen Urine Normal [facility] Comment on above: Performed By: #### 1 [id number] #### [facility] [address] [place] [address] Type of Service Technical Only Normal Fi [facility] Comment on above: Performed By: #### 1 [id number] #### [facility] [address] [place] [address] Urology Office/Clinic Noteon 12-29-2024 Urology Office/Clinic Note [...] was mowing his lawn on a riding plate maker zinc and when he went to urinate he [...] 0.27 MRI fusion prostate bx 06/2022 - [place] 7 (3+4) 3 cores, 12-25% involvement. Intermediate [...] 20 mg prn at prior OV. reports [facility] would not fill this rx for some reason, potentially out of stock. Will re-send rx per pt's request. -Start Cialis 20 mg prn. SEs, proper use, contraindications, priapism discussed. Sent to [facility]. 5. Gross hematuria (R31.0: Gross hematuria) UA neg. Pt had an isolated episode of painless gross hematuria over the weekend after riding plate maker zinc. Pt thought he might have passed a [...] to void. (more content not included)... Normal [facility] Comment on above: Result Comment: Elec tronically Signed By: MIKEY ARORA, Jermaine Cano\.br\Date and Time Signed: 12/29/24 09:27 EDT\.br\Electronically Co-Signed By: Felecia Sharma\.br\Date and Time Co-Signed: 12/29/24 09:23 EDT X-ray reportOrdered By: Aiden Franklin on 12-24-2024 Study report [facility] Main [place] [address] [place] [address] XRay Report Signed Patient: Zach Chamorro MR#: [id number] : 1945 Acct:[id number] Age/Sex: 79 / M ADM Date: 5 Loc: XD Room: Type: [facility] Attending Dr: Jermaine Mancia MD Copies [...] Franklin M.D. 12/24/2024 8:43 PM Dictation Location: [place] [address] Transcribed By: [facility] 12/24/242042 Dictated By: Aiden Franklin II, MD 12/24/242041 Signed By: 12/24/242042 [facility] Work Phone: XR KUBon 12-24-2024 XR KUB [facility] Main [address] [address] XRay Report Signed Patient: Zach Chamorro MR#: [id number] : 1945 Acct:[id number] Age/Sex: 79 / M ADM Date: 12/24/24 Loc: XD Room: Type: [facility] Attending Dr: Jermaine Mancia MD Copies [...] Franklin M.D. 12/24/2024 8:43 PM Dictation Location: [place] [address] Transcribed By: [facility] 12/24/242042 Dictated By: Aiden Franklin II, MD 12/24/242041 Signed By: 12/24/242042 Normal [facility] PSA Total (Not a Screen)on 0 10-28-2024 PSA Total (Not a Screen) 0.270 ng/mL Normal 0.000-4.000 [facility] Comment on above: Result Comment: Poly prather tumor marker results determined by assays using different manufacturers or methods may not be comparable. [facility] stock parts inspector and method: LOAG DXI, CHEMILUMINESCENT IMMUNOASSAY. PERFORMED BY: [address] [place] [address] PATHOLOGIST VACUUM EVAPORATION OPERATOR DELFINO MEJÍA M.D. Performed By: #### B MP, HEPATIC, A1C WTH eA, CBC, LIPID #### [facility] [address] [place] [id number] [facility] XR Elbow - left 3 [facility] Imaging Result: Four views of the left elbow, AP/lateral/oblique/ra diocapitellar, taken today and saved to the permanent medical record. No acute osseous abnormalities, no fat pad sign. Joint spaces are preserved. Tiny osteophyte at the tip of the olecranon. [facility] Radiology Study observation (narrative) [facility] Hemoglobin a1c with eagon Glucose [Mass/Vol] 166 mg/dL [facility] HbA1c (Bld) [Mass fraction] 7.4 % High 4.3 - 5.6 % [facility] Comment on above: Increased risk for d iabetes: 5.7 - 6.4 diabetes: >6.4 glycemic control for adults with diabetes: <7.0 Interpretation and review of laboratory results Abnormal [facility] A1C with Estimated Average G luon 08-06-2024 Glucose [Mass/Vol] 166 mg/dL Normal [facility] Comment on above: Result Comment: PERF ORMED BY: [place] [address] PATHOLOGIST VACUUM EVAPORATION OPERATOR DELFINO MEJÍA M.D. Performed By: #### A 1C WTH eA, MG, BMP #### [facility] [address] [place], [place] [id number] [facility] HbA1c (Bld) [Mass fraction] 7.4 % High 4.3-5.6 [facility] Comment on above: Result Comment: Incr eased risk for diabetes: 5.7 - 6.4 diabetes: >6.4 glycemic control for adults with diabetes: <7.0 Performed By: #### A 1C WTH eA, MG, BMP #### [facility] [address] [place] [address] [facility] Basic Metabolic Panelon 07-13 Anion gap [Moles/Vol] 12.5 mmol/L Normal 6.0-15.0 Th e [facility] Comment on above: Performed By: #### A 1C WTH eA, MG, BMP #### [address] Calcium [Mass/Vol] 9.5 mg/dL Normal 8.6-10.3 [facility] Comment on above: Performed By: #### A 1C WTH eA, MG, BMP #### [address] Chloride [Moles/Vol] 100 mmol/L Normal 98-107 [facility] Comment on above: Performed By: #### A 1C WTH eA, MG, BMP #### [address] CO2 [Moles/Vol] 28.2 mmol/L Normal 21.0-31.0 [facility] Comment on above: Performed By: #### A 1C WTH eA, MG, BMP #### [address] Creatinine [Mass/Vol] 0.77 mg/dL Normal 0.70-1.30 [facility] Comment on above: Performed By: #### A 1C WTH eA, MG, BMP #### [place] [address] [place] GFR/1.73 sq M.predicted MDRD (S/P/Bld) [Vol rate/Area] mL/min/{1.73_m2} Normal [facility] Comment on above: Performed By: #### A 1C WTH eA, MG, BMP #### [address] Glucose [Mass/Vol] 189 mg/dL High 70-100 [facility] Comment on above: Result Comment: [place] Glucose Reference Range is dependent on time and content of last meal. Glucose of more than 200 mg/dL in a nonstressed, ambulatory subject supports the diagnosis of Diabetes Mellitus. ADA recommended reference range Performed By: #### A 1C WTH eA, MG, BMP #### [address] [place] [address] [facility] Potassium [Moles/Vol] 4.7 mmol/L Normal 3.5-5.1 [facility] Comment on above: Performed By: #### A 1C WTMG Goins eA, BMP #### [facility] [address] [place] [id number] [facility] Sodium [Moles/Vol] 136 mmol/L Normal 136-145 [facility] Comment on above: Performed By: #### A 1C WTH MG Arnold, BMP #### [facility] [address] [place] [id number] [facility] Urea nitrogen [Mass/Vol] 16 mg/dL Normal 7-25 [facility] Comment on above: Performed By: #### A 1C WTMG Goins eA, BMP #### [facility] [address] [place] [id number] [facility] Basic metabolic 1998 panelon 08-06-2024 Anion gap [Moles/Vol] 12.5 mmol/L 6.0 - 15.0 meq/L [facility] Calcium [Mass/Vol] 9.5 mg/dL 8.6 - 10. 3 mg/dL [facility] Chloride [Moles/Vol] 100 mmol/L 98 - 10 7 mmol/L [facility] CO2 [Moles/Vol] 28.2 mmol/L 21.0 - 31.0 mmol/L [facility] Creatinine (U) [Mass/Vol] 0.77 mg/dL 0.70 - 1.30 mg/dL [facility] ESTIMATED GFR mL/Min [facility] Glucose [Mass/Vol] 189 mg/dL High 70 - 100 mg/dL [facility] Comment on above: Random Glucose Refer ence Range is dependent on time and content of last meal. Glucose of more than 200 mg/dL in a nonstressed, ambulatory subject supports the diagnosis of Diabetes Mellitus. ADA recommended reference range Potassium [Moles/Vol] 4.7 mmol/L 3.5 - 5.1 mmol/L [facility] Sodium [Moles/Vol] 136 mmol/L 136 - 145 mmol/L [facility] Urea nitrogen [Mass/Vol] 16 mg/dL 7 - 25 mg/dL [facility] Calcium [Mass/volume] in Ser um or PlasmaOrdered By: Blake Ng on 08-06-2024 Calcium [Mass/Vol] Calcium [Mass/volume ] in Serum or Plasma 8.6-10.3 [facility] Carbon dioxide, total [Moles /volume] in Serum or PlasmaOrdered By: Blake Ng on 08-06-2024 CO2 [Moles/Vol] Carbon dioxide, tota l [Moles/volume] in Serum or Plasma 21.0-31.0 [facility] Chloride [Moles/volume] in S luke or PlasmaOrdered By: Blake Ng on 08-06-2024 Chloride [Moles/Vol] Chloride [Moles/volume] in Serum or Plasma 98-107 [facility] Creatinine [Mass/volume] in Serum or PlasmaOrdered By: Blake Ng on 08-06-2024 Creatinine [Mass/Vol] Creatinine [Mass/volume] in Serum or Plasma 0.70-1.30 [facility] Creatinine [Mass/volume] in UrineOrdered By: Blake Ng on 08-06-2024 Creatinine (U) [Mass/Vol] Creatinine [Mass/volume] in Urine [facility] Comment on above: No reference range e stablished Glucose [Mass/volume] in Ser um or PlasmaOrdered By: Blake Ng on 08-06-2024 Glucose [Mass/Vol] Glucose [Mass/volume ] in Serum or Plasma High 70-100 [facility] Comment on above: ADA recommended refe rence rangeRandom Glucose Reference Range is dependent on time and content of last meal. Glucose of more than 200 mg/dL in a nonstressed, ambulatory subject supports the diagnosis of Diabetes Mellitus. Magnesiumon 08-06-2024 Magnesium [Mass/Vol] 1.5 mg/dL Low 1.9 - 2 .7 mg/dL [facility] Magnesium [Mass/Vol] 1.5 mg/dL Low 1.9-2.7 [facility] Comment on above: Result Comment: PERF ORMED BY: [address] [id number] PATHOLOGIST VACUUM EVAPORATION OPERATOR DELFINO MEJÍA M.D. Performed By: #### A 1C [facility] Arnold, MG, BMP #### [address] [place] [address] [place] Magnesium [Mass/volume] in S luke or PlasmaOrdered By: Blake Ng on 08-06-2024 Magnesium [Mass/Vol] Magnesium [Mass/volume] in Serum or Plasma Low 1.9-2.7 [facility] MicroAlb Creat Ratio,Uon Albumin DL <= 20 mg/L (U) [Mass/Vol] 7.1 mg/dL High 0.0-1.8 [facility] Comment on above: Performed By: #### B MP, HEPATIC, A1C WTH eA, CBC, LIPID #### [address] Creatinine, Urine (Random) 81.00 mg/dL Normal [facility] Comment on above: Result Comment: No r eference range established Performed By: #### B MP, HEPATIC, A1C WTH eA, CBC, LIPID #### [facility] [address] Microalbumin/Creatinine Ratio 87.7 mg/g High 0.0-30.0 [facility] Comment on above: Result Comment: 30-3 00 mg/g indicates an increased risk for diabetic nephropathy. Greater than 300 mg/g is consistent with clinical nephropathy. (Am. J. Kidney Disease 1995, 25:107) PERFORMED BY: [place] [address] PATHOLOGIST VACUUM EVAPORATION OPERATOR DELFINO MEJÍA M.D. Performed By: #### B MP, HEPATIC, A1C WTH eA, CBC, LIPID #### [place] [id number] [facility] Microalbumin [Mass/volume] i n UrineOrdered By: Blake Ng on 08-06-2024 Albumin DL <= 20 mg/L (U) [Mass/Vol] Microalbumin [Mass/volume] in Urine High 0.0-1.8 [facility] Microalbumin/Creatinine rati o panel (U)on 08-06-2024 Albumin [Mass/Vol] 7.1 mg/dL High 0.0 - 1.8 mg/dL [facility] Creatinine spec 2 (U) [Mass/Vol] 81 mg/dL [facility] Comment on above: No reference range e stablished Interpretation and review of laboratory results Abnormal [facility] MICROALBUMIN/CREATININE RATIO 87.7 mg/g High 0.0 - 30.0 mg/g [facility] Comment on above: 30-300 mg/g indicate s an increased risk for diabetic nephropathy. Greater than 300 mg/g is consistent with clinical nephropathy. (Am. J. Kidney Disease 1994, 25:107) [facility] No Panel Informationon 08-06 Interpretation and review of laboratory results Abnormal [facility] No Panel InformationOrdered By: Blake Ng on 08-06-2024 Estimated GFR (CKD-EPI) > 60.0 mL/Min [facility] Creatinine Clearance (Chem N/A [facility] Potassium [Moles/volume] in Serum or PlasmaOrdered By: Blake Ng on 08-06-2024 Potassium [Moles/Vol] Potassium [Moles/volume] in Serum or Plasma 3.5-5.1 [facility] Serum or plasma anion gap de terminationOrdered By: Blake Ng on 08-06-2024 Anion gap [Moles/Vol] Serum or plasma an ion gap determination 6.0-15.0 [facility] Sodium [Moles/volume] in Ser um or PlasmaOrdered By: Blake Ng on 08-06-2024 Sodium [Moles/Vol] Sodium [Moles/volume ] in Serum or Plasma 136-145 [facility] Urea nitrogen [Mass/volume] in Serum or PlasmaOrdered By: Blake Ng on 08-06-2024 Urea nitrogen [Mass/Vol] Urea nitrogen [Mass/volume] in Serum or Plasma 7-25 [facility] Urine microalbumin/creatinin e mass ratioOrdered By: Blake Ng on 08-06-2024 Albumin/Creatinine DL <= 20 mg/L (U) [Mass ratio] Urine microalbumin/creatini ne mass ratio High 0.0-30.0 [facility] Comment on above: 30-300 mg/g indicate s an increased risk for diabetic nephropathy. Greater than 300 mg/g is consistent with clinical nephropathy. (Am. J. Kidney Disease 1994, 25:107) No Panel Informationon 07-21 [facility] XR Foot - left 3 [facility] Result: 3 views left foot: Weight-bearing: DP, oblique, lateral: 05/15/2024: There are no distinct or interval changes from most recent views of 04/14/2024. Again unremarkable for acute osseous or joint pathology. Unremarkable for any acute fragmentation or medial column collapse. 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 [facility] Radiology Study observation (narrative) [facility] PSA Total (Not a Screen)on 06-30-2023 PSA Total (Not a Screen) 0.400 ng/mL Normal 0.000-4.000 [facility] Comment on above: Result Comment: Misbahi al tumor marker results determined by assays using different manufacturers or methods may not be comparable. [facility] stock parts inspector and method: LOAG DXI, CHEMILUMINESCENT IMMUNOASSAY. PERFORMED BY: [place] [address] PATHOLOGIST VACUUM EVAPORATION OPERATOR DELFINO MEJÍA M.D. Performed By: #### P SATOTAL #### [address] XR Foot - left 3 Viewson [...] Mild loss of the medial column contour. [facility] Radiology Study observation (narrative) [facility] A1C with Estimated Average G vargasn 01-25-2024 Glucose [Mass/Vol] 140 mg/dL Normal [facility] Comment on above: Result Comment: PERF ORMED BY: [place] [address] PATHOLOGIST VACUUM EVAPORATION OPERATOR JUDY GARCIA M.D. Performed By: #### B MP, HEPATIC, A1C WTH eA, CBC, LIPID #### [facility] [address] [place] [address] [place] Alanine aminotransferase [En zymatic activity/volume] in Serum or PlasmaOrdered By: Blake Ng on 01-25-2024 ALT [Catalytic activity/Vol] 20 U/L Normal 7-52 [facility] Comment on above: Performed By: #### B MP, HEPATIC, A1C WTH eA, CBC, LIPID #### [facility] [address] [place] [address] [place] Albumin [Mass/volume] in Ser um or Plasma by Bromocresol green (BCG) dye binding methoOrdered By: Blake Ng on 01-25-2024 Albumin BCG dye [Mass/Vol] 4.4 g/dL 3.5-5.7 [facility] Alkaline phosphatase [Enzyma tic activity/volume] in Serum or PlasmaOrdered By: Blake Ng on 01-25-2024 ALP [Catalytic activity/Vol] 70 U/L Normal 34-104 [facility] Comment on above: Performed By: #### B MP, HEPATIC, A1C WTH eA, CBC, LIPID #### [facility] [address] [place] [address] [place] Aspartate aminotransferase [ Enzymatic activity/volume] in Serum or PlasmaOrdered By: Blake Ng on 01-25-2024 AST [Catalytic activity/Vol] 19 U/L Normal 13-39 [facility] Comment on above: Performed By: #### B MP, HEPATIC, A1C WTH eA, CBC, LIPID #### [facility] [address] [place] [address] [place] Automated basophil %Ordered By: Blake Ng on 01-25-2024 Basophils/100 WBC (Bld) 0.5 % Normal . [facility] Comment on above: Performed By: #### B MP, HEPATIC, A1C WTH eA, CBC, LIPID #### [facility] [address] [place] [address] [place] Automated basophil countOrde red By: Blake Ng on 01-25-2024 Basophils (Bld) [#/Vol] 0.0 10*3/uL Normal 0.0-0.2 [facility] Comment on above: Result Comment: PERF ORMED BY: [place] [address] PATHOLOGIST VACUUM EVAPORATION OPERATOR JUDY GARCIA M.D. Performed By: #### B MP, HEPATIC, A1C WTH eA, CBC, LIPID #### [address] Automated blood monocyte cou ntOrdered By: Blake Ng on 01-25-2024 Monocytes (Bld) [#/Vol] 0.3 10*3/uL Normal 0.0-0.8 [facility] Comment on above: Performed By: #### B MP, HEPATIC, A1C WTH eA, CBC, LIPID #### [address] Automated eosinophil %Ordere d By: Blake Ng on 01-25-2024 Eosinophils/100 WBC (Bld) 5.1 % Normal . [facility] Comment on above: Performed By: #### B MP, HEPATIC, A1C WTH eA, CBC, LIPID #### [address] Automated eosinophil countOr dered By: Blake Ng on 01-25-2024 Eosinophils (Bld) [#/Vol] 0.3 10*3/uL Normal 0.0-0.45 [facility] Comment on above: Performed By: #### B MP, HEPATIC, A1C WTH eA, CBC, LIPID #### [address] Automated monocyte %Ordered By: Blake Ng on 01-25-2024 Monocytes/100 WBC (Bld) 5.0 % Normal . [facility] Comment on above: Performed By: #### B MP, HEPATIC, A1C WTH eA, CBC, LIPID #### [place] [address] [place] Automated neutrophil %Ordere d By: Blake Ng on 01-25-2024 Neutrophils/100 WBC (Bld) 72.3 % Normal . [facility] Comment on above: Performed By: #### B MP, HEPATIC, A1C WTH eA, CBC, LIPID #### [facility] [address] Basic Metabolic Panelon 01-09 GFR/1.73 sq M.predicted MDRD (S/P/Bld) [Vol rate/Area] mL/min/{1.73_m2} Normal [facility] Comment on above: Performed By: #### B MP, HEPATIC, A1C WTH eA, CBC, LIPID #### [facility] [address] Bilirubin.direct [Mass/volum e] in Serum or PlasmaOrdered By: Blake Ng on 01-25-2024 Bilirubin.direct [Mass/Vol] 0.10 mg/dL 0.03-0.18 [facility] Bilirubin.total [Mass/volume ] in Serum or PlasmaOrdered By: Blake Ng on 01-25-2024 Bilirubin [Mass/Vol] 0.7 mg/dL Normal 0.3-1.[address] [facility] Comment on above: Performed By: #### B MP, HEPATIC, A1C WTH eA, CBC, LIPID #### [facility] [address] [place] [address] [place] Calcium [Mass/volume] in Ser um or PlasmaOrdered By: Blake Ng on 01-25-2024 Calcium [Mass/Vol] 9.2 mg/dL Normal 8.6-10.3 [facility] Comment on above: Performed By: #### B MP, HEPATIC, A1C WTH eA, CBC, LIPID #### [facility] [address] [place] [id number] [place] Carbon dioxide, total [Moles /volume] in Serum or PlasmaOrdered By: Blake Ng on 01-25-2024 CO2 [Moles/Vol] 24.4 mmol/L Normal 21.0-31.0 [facility] Comment on above: Performed By: #### B MP, HEPATIC, A1C WTH eA, CBC, LIPID #### [facility] [address] [place] [address] [place] Chloride [Moles/volume] in S luke or PlasmaOrdered By: Blake Ng on 01-25-2024 Chloride [Moles/Vol] 105 mmol/L Normal 98-[address] [facility] Comment on above: Performed By: #### B MP, HEPATIC, A1C WTH eA, CBC, LIPID #### [facility] [address] Cholesterol [Mass/volume] in Serum or PlasmaOrdered By: Blake Ng on 01-25-2024 Cholesterol [Mass/Vol] 136 mg/dL Low 140-200 [facility] Comment on above: Chol less than 200 m g/dl low riskChol 201-239 mg/dl borderline riskChol 240 mg/dl and greater high risk Result Comment: Chol less than 200 mg/dl low risk Chol 201-239 mg/dl borderline risk Chol 240 mg/dl and greater high risk Performed By: #### B MP, HEPATIC, A1C WTH eA, CBC, LIPID #### [facility] [address] Cholesterol in LDL Calc [Mas s/Vol]Ordered By: Blake Ng on 01-25-2024 Cholesterol in LDL [Mass/Vol] 63 mg/dL 0-100 [facility] Comment on above: LDL ATP III CLASSIFI CATIONLDL less than 100 mg/dL OptimalLDL 100-129 mg/dL Near or above optimalLDL 130-159 mg/dL Borderline highLDL 160-189 mg/dL HighLDL greater than 189 mg/dL Very high Cholesterol in VLDL Calc [Ma ss/Vol]Ordered By: Blake Ng on 01-25-2024 Cholesterol in VLDL [Mass/Vol] 40 mg/dL [facility] Complete Blood Count Auto Di ffon 01-25-2024 Mean Corpuscular HGB Conc 35.0 g/dL Normal 32.5-35.6 [facility] Comment on above: Performed By: #### B MP, HEPATIC, A1C WTH eA, CBC, LIPID #### [facility] [address] [place] [id number] [facility] NRBC% 0.1 /100{WBC} Normal 0-0.5 [facility] Comment on above: Performed By: #### B MP, HEPATIC, A1C WTH eA, CBC, LIPID #### [facility] [address] Creatinine [Mass/volume] in Serum or PlasmaOrdered By: Blake Ng on 01-25-2024 Creatinine [Mass/Vol] 1.02 mg/dL Normal 0.70-1.30 [facility] Comment on above: Performed By: #### B MP, HEPATIC, A1C WTH eA, CBC, LIPID #### [facility] [address] Erythrocyte distribution wid th [Ratio] by Automated countOrdered By: Blake Ng on 01-25-2024 Erythrocyte distribution width (RBC) [Ratio] 14.3 % Normal 12.0-14.8 [facility] Comment on above: Performed By: #### B MP, HEPATIC, A1C WTH eA, CBC, LIPID #### [facility] [address] Erythrocytes [#/volume] in B lood by Automated countOrdered By: Blake Ng on 01-25-2024 RBC (Bld) [#/Vol] 3.58 10*6/uL Low 3.90-5.60 [facility] Comment on above: Performed By: #### B MP, HEPATIC, A1C WTH eA, CBC, LIPID #### [address] Glucose [Mass/volume] in Ser um or PlasmaOrdered By: Blake Ng on 01-25-2024 Glucose [Mass/Vol] 126 mg/dL High 70-100 [facility] Comment on above: ADA recommended refe rence rangeRandom Glucose Reference Range is dependent on time and content of last meal. Glucose of more than 200 mg/dL in a nonstressed, ambulatory subject supports the diagnosis of Diabetes Mellitus. Result Comment: [place] om Glucose Reference Range is dependent on time and content of last meal. Glucose of more than 200 mg/dL in a nonstressed, ambulatory subject supports the diagnosis of Diabetes Mellitus. ADA recommended reference range Performed By: #### B MP, HEPATIC, A1C WTH eA, CBC, LIPID #### [facility] [address] Glucose mean value [Mass/vol ume] in Blood Estimated from glycated hemoglobinOrdered By: Blake Ng on 01-25-2024 Average glucose Estimated from glycated hemoglobin (Bld) [Mass/Vol] 140 mg/dL [facility] Hematocrit [Volume Fraction] of Blood by Automated countOrdered By: Blake Ng on 01-25-2024 Hematocrit (Bld) [Volume fraction] 34.0 % Low 38.8-50.0 [facility] Comment on above: Performed By: #### B MP, HEPATIC, A1C WTH eA, CBC, LIPID #### [facility] [address] Hemoglobin A1c percentageOrd ered By: Blake Ng on 01-25-2024 HbA1c (Bld) [Mass fraction] 6.5 % High 4.3-5.6 [facility] Comment on above: Increased risk for d iabetes: 5.7 - 6.4diabetes: >6.4glycemic control for adults with diabetes: <7.0 Result Comment: Incr eased risk for diabetes: 5.7 - 6.4 diabetes: >6.4 glycemic control for adults with diabetes: <7.0 Performed By: #### B MP, HEPATIC, A1C WTH eA, CBC, LIPID #### [facility] [address] Hemoglobin [Mass/volume] in BloodOrdered By: Blake Ng on 01-25-2024 Hemoglobin (Bld) [Mass/Vol] 11.9 g/dL Low 13.0-17.0 [facility] Comment on above: Performed By: #### B MP, HEPATIC, A1C WTH eA, CBC, LIPID #### [facility] [address] [id number] [facility] Hepatic Panelon 01-25-2024 Albumin [Mass/Vol] 4.4 g/dL Normal 3.5-5.7 [facility] Comment on above: Performed By: #### B MP, HEPATIC, A1C WTH eA, CBC, LIPID #### [facility] [address] Bilirubin,Indirect 0.6 mg/dL Normal [facility] Comment on above: Performed By: #### B MP, HEPATIC, A1C WTH eA, CBC, LIPID #### [facility] [address] Bilirubin.indirect [Mass/Vol] 0.10 mg/dL Normal 0.03-0.18 [facility] Comment on above: Performed By: #### B MP, HEPATIC, A1C WTH eA, CBC, LIPID #### [facility] [address] Leukocytes [#/volume] correc sonia for nucleated erythrocytes in Blood by Automated counOrdered By: Blake Ng on 01-25-2024 WBC corrected for nucl RBC Auto (Bld) [#/Vol] 5.6 10*3/uL 4.1-10.5 [facility] Leukocytes [#/volume] in Blo od by Automated countOrdered By: Blake gN on 01-25-2024 WBC (Bld) [#/Vol] 5.6 10*3/uL Normal 4.1-10.5 [facility] Comment on above: Performed By: #### B MP, HEPATIC, A1C WTH eA, CBC, LIPID #### [facility] [address] Lipid Panelon 01-25-2024 LDL Cholesterol,Calculated 63 mg/dL Normal 0-100 [facility] Comment on above: Result Comment: LDL ATP III CLASSIFICATION LDL less than 100 mg/dL Optimal LDL 100-129 mg/dL Near or above optimal LDL 130-159 mg/dL Borderline high LDL 160-189 mg/dL High LDL greater than 189 mg/dL Very high Performed By: #### B MP, HEPATIC, A1C WTH eA, CBC, LIPID #### [facility] [address] Triglyceride w/Reflex 200 mg/dL High 0-149 [facility] Comment on above: Result Comment: TRIG ATP III CLASSIFICATION TRIG less than 150 mg/dL Normal TRIG 150-199 mg/dL Borderline high TRIG 200-500 mg/dL High TRIG greater than 500 mg/dL Very high Standard traceable to the Center for Disease Conrtrol and Prevention (CDC) test method. Performed By: #### B MP, HEPATIC, A1C WTH eA, CBC, LIPID #### [address] VLDL CHOLESTEROL 40 mg/dL Normal [facility] Comment on above: Performed By: #### B MP, HEPATIC, A1C WTH eA, CBC, LIPID #### [address] Lymphocytes [#/volume] in Bl ood by Automated countOrdered By: Blake Ng on 01-25-2024 Lymphocytes (Bld) [#/Vol] 1.0 10*3/uL Normal 1.00-4.8 [facility] Comment on above: Performed By: #### B MP, HEPATIC, A1C WTH eA, CBC, LIPID #### [address] Lymphocytes/100 leukocytes i n Blood by Automated countOrdered By: Blake Ng on 01-25-2024 Lymphocytes/100 WBC (Bld) 17.1 % Normal . [facility] Comment on above: Performed By: #### B MP, HEPATIC, A1C WTH eA, CBC, LIPID #### [address] MCH [Entitic mass] by Automa sonia countOrdered By: Blake Ng on 01-25-2024 MCH (RBC) [Entitic mass] 33.3 pg Normal 27.5-35.2 [facility] Comment on above: Performed By: #### B MP, HEPATIC, A1C WTH eA, CBC, LIPID #### [address] MCHC Auto (RBC) [Mass/Vol]Or dered By: Blake Ng on 01-25-2024 MCHC (RBC) [Mass/Vol] 35.0 g/dL 32.5-35.6 [facility] MCV [Entitic volume] by Auto mated countOrdered By: Blake Ng on 01-25-2024 MCV (RBC) [Entitic vol] 95.1 fL Normal 83.5-101 [facility] Comment on above: Performed By: #### B MP, HEPATIC, A1C WTH eA, CBC, LIPID #### [facility] [address] Neutrophils [#/volume] in Bl ood by Automated countOrdered By: Blake Ng on 01-25-2024 Neutrophils (Bld) [#/Vol] 4.1 10*3/uL Normal 1.8-7.7 [facility] Comment on above: Performed By: #### B MP, HEPATIC, A1C WTH eA, CBC, LIPID #### [facility] [address] No Panel InformationOrdered By: Blake Ng on 01-25-2024 Estimated GFR (CKD-EPI) > 60.0 mL/Min [facility] Creatinine Clearance (Chem N/A [facility] Nucleated erythrocytes [Pres ence] in Blood by Automated countOrdered By: Blake Ng on 01-25-2024 Nucleated RBC Auto Ql (Bld) 0.1 /100{WBC} 0-0.5 [facility] Platelet mean volume [Entiti c volume] in Blood by Automated countOrdered By: Blake Ng on 01-25-2024 Platelet mean volume (Bld) [Entitic vol] 6.6 fL Normal 6.6-10.1 [facility] Comment on above: Performed By: #### B MP, HEPATIC, A1C WTH eA, CBC, LIPID #### [facility] [address] Platelets [#/volume] in Bloo d by Automated countOrdered By: Blake Ng on 01-25-2024 Platelets (Bld) [#/Vol] 139 10*3/uL Low 150-450 [facility] Comment on above: Performed By: #### B MP, HEPATIC, A1C WTH eA, CBC, LIPID #### [facility] [address] Potassium [Moles/volume] in Serum or PlasmaOrdered By: Blake Ng on 01-25-2024 Potassium [Moles/Vol] 4.5 mmol/L Normal 3.5-5.1 [facility] Comment on above: Performed By: #### B MP, HEPATIC, A1C WTH eA, CBC, LIPID #### [facility] [address] Protein [Mass/volume] in Ser um or PlasmaOrdered By: Blake Ng on 01-25-2024 Protein [Mass/Vol] 6.5 g/dL Normal 6.4-8.9 [facility] Comment on above: Performed By: #### B MP, HEPATIC, A1C WTH eA, CBC, LIPID #### [facility] [address] Serum globulin measurement b y calculation (mass/volume)Ordered By: Blake Ng on 01-25-2024 Globulin (S) [Mass/Vol] 2.1 g/dL Normal [facility] Comment on above: Performed By: #### B MP, HEPATIC, A1C WTH eA, CBC, LIPID #### [facility] [address] Serum or plasma albumin/glob ulin mass ratioOrdered By: Blake Ng on 01-25-2024 Albumin/Globulin [Mass ratio] 2.1 {ratio} Normal [facility] Comment on above: Performed By: #### B MP, HEPATIC, A1C WTH eA, CBC, LIPID #### [facility] [address] Serum or plasma anion gap de terminationOrdered By: Blake Ng on 01-25-2024 Anion gap [Moles/Vol] 13.1 mmol/L Normal 6.0-15.0 [facility] Comment on above: Performed By: #### B MP, HEPATIC, A1C WTH eA, CBC, LIPID #### [facility] [address] Serum or plasma high density lipoprotein (HDL) cholesterol measurementOrdered By: Blake Ng on 01-25-2024 Cholesterol in HDL [Mass/Vol] 33 mg/dL Normal 23-92 [facility] Comment on above: HDL CHOL ATP-III CLA SSIFICATION Cardiovascular RiskHDL > or equal to 60 mg/dL LOWHDL < 40 mg/dL HIGH Result Comment: HDL CHOL ATP-III CLASSIFICATION Cardiovascular Risk HDL > or equal to 60 mg/dL LOW HDL < 40 mg/dL HIGH Performed By: #### B MP, HEPATIC, A1C WTH eA, CBC, LIPID #### [address] Serum or plasma non-glucuron idated bilirubin measurement (mass/volume)Ordered By: Blake Ng on 01-25-2024 Bilirubin.indirect [Mass/Vol] 0.6 mg/dL [facility] Serum or plasma total choles terol/high density lipoprotein (HDL) cholesterol mass ratOrdered By: Blake Ng on 01-25-2024 Cholesterol.total/Kassy sterol in HDL [Mass ratio] 4.1 {ratio} Normal <5.0 [facility] Comment on above: Result Comment: PERF ORMED BY: [place] [address] PATHOLOGIST [employer]ORATION OPERATOR JUDY GARCIA M.D. Performed By: #### B MP, HEPATIC, A1C WTH eA, CBC, LIPID #### [address] Sodium [Moles/volume] in Ser um or PlasmaOrdered By: Blake Ng on 01-25-2024 Sodium [Moles/Vol] 138 mmol/L Normal 136-145 [facility] Comment on above: Performed By: #### B MP, HEPATIC, A1C WTH eA, CBC, LIPID #### [address] Triglyceride [Mass/volume] i n Serum or PlasmaOrdered By: Blake Ng on 01-25-2024 Triglyceride [Mass/Vol] 200 mg/dL High 0-149 [facility] Comment on above: TRIG ATP III CLASSIF ICATIONTRIG less than 150 mg/dL NormalTRIG 150-199 mg/dL Borderline highTRIG 200-500 mg/dL High TRIG greater than 500 mg/dL Very highStandard traceable to the Center for Disease Conrtrol and Prevention (CDC) test method. Urea nitrogen [Mass/volume] in Serum or PlasmaOrdered By: Blake Ng on 08-16-2024 Urea nitrogen [Mass/Vol] 26 mg/dL High 01-02 [facility] Comment on above: Performed By: #### B MP, HEPATIC, A1C WTH eA, CBC, LIPID #### [facility] [address] [id number] [facility] Prostate specific Ag [Mass/v olume] in Serum or PlasmaOrdered By: Rosy Pina on 12-19-2023 Prostate specific Ag [Mass/Vol] 0.800 ng/mL 0.000-4.000 [facility] Comment on above: Serial tumor marker results determined by assays using different manufacturers or methods may not be comparable.[facility] stock parts inspector and method:LOAG DXI, CHEMILUMINESCENT IMMUNOASSAY. Prostate specific Ag [Mass/v olume] in Serum or PlasmaOrdered By: Rosy Pina on 09-12-2023 Prostate specific Ag [Mass/Vol] 0.400 ng/mL 0.000-4.000 [facility] Comment on above: Serial tumor marker results determined by assays using different manufacturers or methods may not be comparable.[facility] stock parts inspector and method:VPEPEL DXI, CHEMILUMINESCENT IMMUNOASSAY. Prostate specific Ag [Mass/v olume] in Serum or PlasmaOrdered By: Rosy Pina on 06-06-2023 Prostate specific Ag [Mass/Vol] 0.680 ng/mL 0.000-4.000 [facility] Comment on above: Serial tumor marker results determined by assays using different manufacturers or methods may not be comparable.[facility] stock parts inspector and method:LOAG DXI, CHEMILUMINESCENT IMMUNOASSAY. Prostate Specific Ag Free [M ass/volume] in Serum or PlasmaOrdered By: Jermaine Mancia on 12-05-2022 Free PSA [Mass/Vol] 0.540 ng/mL [facility] Prostate specific Ag [Mass/v olume] in Serum or PlasmaOrdered By: Jermaine Mancia on 12-05-2022 Prostate specific Ag [Mass/Vol] 1.590 ng/mL 0.000-4.000 [facility] Serum or plasma free prostat e specific antigen (PSA)/total PSA ratioOrdered By: Jermaine Mancia on 12-05-2022 Free PSA/Total PSA [Mass fraction] 33.9 % [facility] Comment on above: Based on the work [...] Prostate specific Ag [Mass/Vol] 2.090 ng/mL 0.000-4.000 [facility] GLYCOHEMOGLOBIN A1Con 2022 ADA RECOMMENDATION SEE BELOW Normal [facility] Comment on above: Result Comment: ADA RECOMMENDED LIMIT 4.0 - 6.0 ADA THERAPEUTIC TARGET < 7.0 ACTION SUGGESTED > 7.0 Performed By: #### A 1C #### [facility] [address] [address] [address] Sary Elkins Glucose [Mass/Vol] 163 mg/dL Normal [facility] Comment on above: Performed By: #### A 1C #### [facility] [address] [address] [address] Sary Elkins HbA1c (Bld) [Mass fraction] 7.3 % Critically high 4.5-6.2 [facility] Comment on above: Performed By: #### A 1C #### [facility] [address] [address] [address] Sary Elkins Glucose Glucometer (BldC) [M ass/Vol]Ordered By: Rosy Pina on 05-15-2022 Glucose [Mass/Vol] 157 mg/dL [facility] Comment on above: Random Glucose Refer ence Range is dependent on time and content of last meal. Glucose of more than 200 mg/dL in a nonstressed, ambulatory subject supports the diagnosis of Diabetes Mellitus. Basophils Auto (Bld) [#/Vol] Ordered By: Rosy Pina on 05-08-2022 Basophils (Bld) [#/Vol] 0.0 10*3/uL 0.0-0.2 [facility] Basophils/100 WBC Auto (Bld) Ordered By: Rosy Pina on 05-08-2022 Basophils/100 WBC (Bld) 0.4 % . [facility] Creatinine and Glomerular fi ltration rate.predicted panel (S/P/Bld)Ordered By: Rosy Pina on 05-08-2022 Creatinine [Mass/Vol] 0.84 mg/dL 0.64-1.27 [facility] Eosinophils Auto (Bld) [#/Vo l]Ordered By: Rosy Pina on 05-08-2022 Eosinophils (Bld) [#/Vol] 0.3 10*3/uL 0.0-0.45 [facility] Eosinophils/100 WBC Auto (Bl d)Ordered By: Rosy Pina on 05-08-2022 Eosinophils/100 WBC (Bld) 5.1 % . [facility] Erythrocyte distribution wid th Auto (RBC) [Ratio]Ordered By: Rosy Pina on 05-08-2022 Erythrocyte distribution width (RBC) [Ratio] 14.3 % 12.0-14.8 [facility] Estimated glomerular filtrat ion rate (GFR) non- AmericanOrdered By: Rosy Pina on 05-08-2022 GFR/1.73 sq M.predicted among non-blacks MDRD (S/P/Bld) [Vol rate/Area] > 60 mL/Min [facility] Hematocrit Auto (Bld) [Volum e fraction]Ordered By: Rosy Pina on 05-08-2022 Hematocrit (Bld) [Volume fraction] 37.5 % 38.8-50.0 [facility] Hemoglobin [Mass/volume] in BloodOrdered By: Rosy Pina on 05-08-2022 Hemoglobin (Bld) [Mass/Vol] 12.9 g/dL 13.0-17.0 [facility] - Hematology and Cell countsOrdered By: Rosy Pina on 05-08-2022 Nucleated RBC/100 WBC (Bld) [Ratio] 0.0 % 0-0.5 [facility] Leukocytes [#/volume] in Blo od by Automated countOrdered By: Rosy Pina on 05-08-2022 WBC (Bld) [#/Vol] 5.7 10*3/uL 4.5-11.0 [facility] Lymphocytes Auto (Bld) [#/Vo l]Ordered By: Rosy Pina on 05-08-2022 Lymphocytes (Bld) [#/Vol] 1.2 10*3/uL 1.00-4.8 [facility] Lymphocytes/100 WBC Auto (Bl d)Ordered By: Rosy Pina on 05-08-2022 Lymphocytes/100 WBC (Bld) 20.5 % . [facility] MCH Auto (RBC) [Entitic mass ]Ordered By: Rosy Pina on 05-08-2022 MCH (RBC) [Entitic mass] 31.8 pg 27.5-35.2 [facility] MCHC Auto (RBC) [Mass/Vol]Or dered By: Rosy Pina on 05-08-2022 MCHC (RBC) [Mass/Vol] 34.4 g/dL 32.5-35.6 [facility] MCV Auto (RBC) [Entitic vol] Ordered By: Rosy Pina on 05-08-2022 MCV (RBC) [Entitic vol] 92.4 fL 83.5-101 [facility] Monocytes Auto (Bld) [#/Vol] Ordered By: Rosy Pina on 05-08-2022 Monocytes (Bld) [#/Vol] 0.3 10*3/uL 0.0-0.8 [facility] Monocytes/100 WBC Auto (Bld) Ordered By: Rosy Pina on 05-08-2022 Monocytes/100 WBC (Bld) 4.5 % . [facility] Neutrophils Auto (Bld) [#/Vo l]Ordered By: Rosy Pina on 05-08-2022 Neutrophils (Bld) [#/Vol] 4.0 10*3/uL 1.8-7.7 [facility] Neutrophils/100 WBC Auto (Bl d)Ordered By: Rosy Pina on 05-08-2022 Neutrophils/100 WBC (Bld) 69.5 % . [facility] No Panel InformationOrdered By: Rosy Pina on 05-08-2022 Estimated GFR () > 60 mL/Min [facility] Comment on above: GFR estimated refere nce range: According to KDOQI guidelines, <60 ml/min/1.73m2 is sufficient to diagnose a patient with chronic kidney disease. Pharmacy Creatinine Clearance (Chem N/A [facility] Platelet mean volume Auto (B ld) [Entitic vol]Ordered By: Rosy Pian on 05-08-2022 Platelet mean volume (Bld) [Entitic vol] 6.9 fL 6.6-10.1 [facility] Platelets Auto (Bld) [#/Vol] Ordered By: Rosy Pina on 05-08-2022 Platelets (Bld) [#/Vol] 148 10*3/uL 150-450 [facility] RBC Auto (Bld) [#/Vol]Ordere d By: Rosy Pina on 05-08-2022 RBC (Bld) [#/Vol] 4.05 10*6/uL 3.90-5.60 [facility] Serum or plasma anion gap de terminationOrdered By: Rosy Pina on 05-08-2022 Anion gap [Moles/Vol] 16.6 mmol/L 6.0-15.0 [facility] Serum or plasma calcium jose e urement (mass/volume)Ordered By: Rosy Pina on 05-08-2022 Calcium [Mass/Vol] 9.7 mg/dL 8.2-10.2 [facility] Serum or plasma chloride erika surement (moles/volume)Ordered By: Rosy Pina on 05-08-2022 Chloride [Moles/Vol] 99 mmol/L 95-[address] [facility] Serum or plasma glucose jose e urement (mass/volume)Ordered By: Rosy Pina on 05-08-2022 Glucose [Mass/Vol] 132 mg/dL 70-100 [facility] Comment on above: ADA recommended refe rence rangeRandom Glucose Reference Range is dependent on time and content of last meal. Glucose of more than 200 mg/dL in a nonstressed, ambulatory subject supports the diagnosis of Diabetes Mellitus. Serum or plasma potassium me asurement (moles/volume)Ordered By: Rosy Pina on 05-08-2022 Potassium [Moles/Vol] 4.5 mmol/L 3.5-5.1 [facility] Serum or plasma sodium measu rement (moles/volume)Ordered By: Rosy Pina on 05-08-2022 Sodium [Moles/Vol] 135 mmol/L 136-146 [facility] Serum or plasma total carbon dioxide measurement (moles/volume)Ordered By: Rosy Pina on 05-08-2022 CO2 [Moles/Vol] 23.9 mmol/L 22.0-30.0 [facility] Serum or plasma urea nitroge n measurement (mass/volume)Ordered By: Rosy Pina on 05-08-2022 Urea nitrogen [Mass/Vol] 15 mg/dL 9- [facility] Creatinine (Bld) [Mass/Vol]O rdered By: Jermaine Mancia on 03-01-2022 Creatinine [Mass/Vol] 1.0 mg/dL 0.6-1.3 [facility] Comment on above: ER/ESD physician is notified/shown all ISTAT results. Critical values may be confirmed by laboratory testing if deemed necessary by ER attending doctor. ER/ESD physician is notified/shown all ISTAT results.Critical values may be confirmed by laboratory testing ifdeemed necessary by ER attending doctor. No Panel InformationOrdered By: Jermaine Mancia on 03-01-2022 POC Estimated GFR > 60 [facility] Comment on above: GFR estimated refere nce range: According to KDOQI guidelines, <60 ml/min/1.73m2 is sufficient to diagnose a patient with chronic kidney disease. POC Estimated GFR Non- Amer > 60 [facility] MICROALBUMIN URINEon 022 Albumin, Urine 63.5 ug/mL Normal Not Estab. [facility] Comment on above: Performed By: #### M ALBLC #### [facility] [address] [address] [address] Sary Elkins CBC AUTO DIFFon 01-17-2022 BASO # 0.1 103/ul Normal 0.0-0.1 [facility] Comment on above: Performed By: #### C BC #### [facility] [address] [place] [address] Dr. Sary Elkins Basophils/100 WBC (Bld) 0.7 % Normal 0.2-2.0 [facility] Comment on above: Performed By: #### C BC #### [facility] [address] [place] [address] Dr. Sary Elkins EO # 0.5 103/ul Normal 0.0-0.7 [facility] Comment on above: Performed By: #### C BC #### [facility] [address] [place] [address] Dr. Sary Elkins Eosinophils/100 WBC (Bld) 6.9 % Normal 0.9-7.0 [facility] Comment on above: Performed By: #### C BC #### [facility] [address] [place] [address] Dr. Sary Elkins Erythrocyte distribution width (RBC) [Ratio] 14.0 % Normal 11.0-15.0 [facility] Comment on above: Performed By: #### C BC #### [facility] [address] [place] [address] Dr. Sary Elkins Hematocrit (Bld) [Volume fraction] 34.2 % Critically low 42.0-54.0 [facility] Comment on above: Performed By: #### C BC #### [facility] [address] [place] [address] Dr. Sary Elkins Hemoglobin (Bld) [Mass/Vol] 11.8 g/dL Critically low 14.0-18.0 [facility] Comment on above: Performed By: #### C BC #### [facility] [address] [place] [address] Dr. Sary Elkins IG # 0.02 10e3/ul Normal 0.00-0.03 [facility] Comment on above: Performed By: #### C BC #### [facility] [address] [place] [address] Dr. Sary Elkins IG % 0.3 % Normal 0.0-0.5 [facility] Comment on above: Performed By: #### C BC #### [facility] [address] [place] [address] Dr. Sary Elkins LYMPH # 1.5 103/ul Normal 1.2-3.8 [facility] Comment on above: Performed By: #### C BC #### [facility] [address] [place] [address] Dr. Sary Elkins Lymphocytes/100 WBC (Bld) 21.6 % Normal 20.5-60.0 [facility] Comment on above: Performed By: #### C BC #### [facility] [address] [place] [address] Dr. Sary Elkins MANUAL DIFF REQ NO Normal [facility] Comment on above: Performed By: #### C BC #### [facility] [address] [place] [address] Dr. Sary Elkins MCH (RBC) [Entitic mass] 32.7 pg Normal 25.9-34.0 [facility] Comment on above: Performed By: #### C BC #### [facility] [address] [place] [address] Dr. Sary Elkins MCHC (RBC) [Mass/Vol] 34.5 g/dL Normal 29.9-35.2 [facility] Comment on above: Performed By: #### C BC #### [facility] [address] [place] [address] Dr. Sary Elkins MCV (RBC) [Entitic vol] 94.7 fL Critically high 80.0-94 .0 [facility] Comment on above: Performed By: #### C BC #### [facility] [address] [place] [address] Dr. Sary Elkins MONO # 0.4 103/ul Normal 0.3-0.8 [facility] Comment on above: Performed By: #### C BC #### [facility] [address] [address] [address] Sary Elkins Monocytes/100 WBC (Bld) 5.3 % Normal 1.7-12.0 [facility] Comment on above: Performed By: #### C BC #### [facility] [address] [place] [address] Dr. Sary Elkins NEUT # 4.5 103/ul Normal 1.4-6.5 [facility] Comment on above: Performed By: #### C BC #### [facility] [address] [place] [address] Dr. Sary Elkins Neutrophils/100 WBC (Bld) 65.2 % Normal 43.0-75.0 [facility] Comment on above: Performed By: #### C BC #### [facility] [address] [place] [address] Dr. Sary Elkins Platelet mean volume (Bld) [Entitic vol] 9.2 fL Critically low 9.5-13.5 [facility] Comment on above: Performed By: #### C BC #### [facility] [address] [place] [address] Dr. Sary Elkins PLT 137 103/ul Critically low 150-450 [facility] Comment on above: Performed By: #### C BC #### [facility] [address] [place] [address] Dr. Sary Elkins RBC 3.61 106/ul Critically low 4.70-6.10 [facility] Comment on above: Performed By: #### C BC #### [facility] [address] [place] [address] Dr. Sary Elkins WBC 6.8 103/ul Normal 4.0-11.0 [facility] Comment on above: Performed By: #### C BC #### [facility] [address] [place], [place] [id number] Dr. Sary Elkins GLYCOHEMOGLOBIN A1Con 2021 ADA RECOMMENDATION SEE BELOW Normal [facility] Comment on above: Result Comment: ADA RECOMMENDED LIMIT 4.0 - 6.0 ADA THERAPEUTIC TARGET < 7.0 ACTION SUGGESTED > 7.0 Performed By: #### A 1C #### [facility] [address] [address] [address] Sary Elkins Glucose [Mass/Vol] 137 mg/dL Normal [facility] Comment on above: Performed By: #### A 1C #### [facility] [address] [address] [address] Sary Elkins HbA1c (Bld) [Mass fraction] 6.4 % Critically high 4.5-6.2 [facility] Comment on above: Performed By: #### A 1C #### [facility] [address] [place] [address] Dr. Sary Elkins LIPID PROFILEon 01-17-2022 CHOL-HDL RATIO NORM SEE BELOW Normal [facility] [place] Comment on above: Result Comment: 3.3 - 4.4 LOW RISK 4.4 - 7.1 AVERAGE RISK 7.1 - 11.0 MODERATE RISK >11.0 HIGH RISK Performed By: #### B MP, AST, ALT, LIPID #### [facility] [address] [address] [address] Sary Elkins Cholesterol [Mass/Vol] 124 mg/dL Normal <=200 Th [facility] Comment on above: Performed By: #### B MP, AST, ALT, LIPID #### [facility] [address] [place] [address] Dr. Sary Elkins Cholesterol in HDL [Mass/Vol] 28 mg/dL Critically low 40-60 [facility] Comment on above: Performed By: #### B MP, AST, ALT, LIPID #### [facility] [address] [place] [address] Dr. Sary Elkins Cholesterol in LDL [Mass/Vol] 41.0 mg/dL Normal [facility] Comment on above: Performed By: #### B MP, AST, ALT, LIPID #### [facility] [address] [place] [address] Dr. Sary Elkins Cholesterol.total/Kassy sterol in HDL [Mass ratio] 4.4 {ratio} Normal [facility] Comment on above: Performed By: #### B MP, AST, ALT, LIPID #### [facility] [address] [address] [address] Sary Elkins HDL NORMAL > or = 60 mg/dl - LO W CARDIOVASCULAR RISK <40 mg/dl - HIGH CARDIOVASCULAR RISK Normal [facility] Comment on above: Performed By: #### B MP, AST, ALT, LIPID #### [facility] [address] [address] [address] Sary Elkins LDL CALC NORMAL SEE BELOW Normal [facility] Comment on above: Result Comment: <100 mg/dl OPTIMAL 100 - 129 mg/dl NEAR OR ABOVE OPTIMAL 130 - 159 mg/dl BORDERLINE HIGH 160 - 189 mg/dl HIGH >190 mg/dl VERY HIGH Performed By: #### B MP, AST, ALT, LIPID #### [facility] [address] [address] [address] Sary Elkins Triglyceride [Mass/Vol] 275 mg/dL Critically high <=150 [facility] Comment on above: Performed By: #### B MP, AST, ALT, LIPID #### [facility] [address] [address] [address] Sary Elkins VLDL CALC 55.0 mg/dL Normal [facility] Comment on above: Performed By: #### B MP, AST, ALT, LIPID #### [facility] [address] [address] [address] Sary Elkins PROF CHEM 8 (BAS METB)on Anion gap [Moles/Vol] 17.0 mmol/L Normal [facility] Comment on above: Performed By: #### B MP, AST, ALT, LIPID #### [facility] [address] [place] [address] Dr. Sary Elkins Calcium [Mass/Vol] 9.0 mg/dL Normal 8.5-10.1 [facility] Comment on above: Performed By: #### B MP, AST, ALT, LIPID #### [facility] [address] [place] [address] Dr. Sary Elkins Chloride [Moles/Vol] 101 mmol/L Normal 98-107 [facility] Comment on above: Performed By: #### B MP, AST, ALT, LIPID #### [facility] [address] [address] [address] Sary Elkins CO2 [Moles/Vol] 24.7 mmol/L Normal 21.0-32.0 [facility] Comment on above: Performed By: #### B MP, AST, ALT, LIPID #### [facility] [address] [address] [address] Sary Elkins Creatinine [Mass/Vol] 1.22 mg/dL Normal 0.70-1.30 [facility] Comment on above: Performed By: #### B MP, AST, ALT, LIPID #### [facility] [address] [address] [address] Sary Elkins EGFR-AF [place] >60 Normal >=60 [facility] Comment on above: Performed By: #### B MP, AST, ALT, LIPID #### [facility] [address] [place] [address] Dr. Sary Elkins EGFR-NON AF [place] 58 mL/min/1.73m2 Critically low >=60 [facility] Comment on above: Performed By: #### B MP, AST, ALT, LIPID #### [facility] [address] [address] [address] Sary Elkins Glucose [Mass/Vol] 155 mg/dL Critically high 74-106 [facility] Comment on above: Performed By: #### B MP, AST, ALT, LIPID #### [facility] [address] [address] [address] Sary Elkins Potassium [Moles/Vol] 4.7 mmol/L Normal 3.5-5.1 [facility] Comment on above: Performed By: #### B MP, AST, ALT, LIPID #### [facility] [address] [address] [address] Sary Elkins Sodium [Moles/Vol] 138 mmol/L Normal 136-145 [facility] Comment on above: Performed By: #### B MP, AST, ALT, LIPID #### [facility] [address] [address] [address] Sary Elkins Urea nitrogen [Mass/Vol] 25.0 mg/dL Critically high 7.0-18.0 [facility] Comment on above: Performed By: #### B MP, AST, ALT, LIPID #### [facility] [address] [place] [address] Dr. Sary Elkins Urea nitrogen/Creatinine [Mass ratio] 20.5 mg/mg Normal [facility] Comment on above: Performed By: #### B MP, AST, ALT, LIPID #### [facility] [address] [place] [address] Dr. Sary Elkins SGOTon 01-17-2022 AST [Catalytic activity/Vol] 23 U/L Normal 15-37 [facility] Comment on above: Performed By: #### B MP, AST, ALT, LIPID #### [facility] [address] [place] [address] Dr. Sary Elkins SGPTon 01-17-2022 ALT [Catalytic activity/Vol] 33 U/L Normal 16-63 [facility] Comment on above: Performed By: #### B MP, AST, ALT, LIPID #### [facility] [address] [place] [address] Dr. Sary Elkins XR KUB 1 VIEWon [...] by: ISABELLA FULLER Date: 2021-12-16 15:58 Normal [facility] CNCOon 11-08-2021 CNCO Letter Text Normal [facility] No Panel Information [facility] Vital Signs Date Time Vital Sign Value Performing Clinician Facility 01-26-2025 09:22-0400 Body height 188 cm Isabella Powell DPM Work Phone: [facility] 01-26-2025 09:22-0400 Body mass index (BMI) [Ratio] 25.16 kg/m2 Isabella Andre DPM Work Phone: [facility] 01-26-2025 09:22-0400 Body weight 88.91 kg Isabella Swanher ALMENDAREZM Work Phone: [facility] 01-02-2025 11:48-0400 Body height 188 cm Blake Ng MD Work Phone: [facility] 01-02-2025 11:48-0400 Body mass index (BMI) [Ratio] 25.16 kg/m2 Blake Ng MD Work Phone: [facility] 01-02-2025 11:48-0400 Body temperature 97.11 [degF] Blake Ng MD Work Phone: [facility] 01-02-2025 11:48-0400 Body weight 88.91 kg Blake Ng MD Work Phone: [facility] 01-02-2025 11:48-0400 Diastolic blood pressure 54 mm[Hg] Blake Ng MD Work Phone: [facility] 01-02-2025 11:48-0400 Heart rate 89 /min Blake Ng MD Work Phone: [facility] 01-02-2025 11:48-0400 Respiratory rate 18 /min Blake Ng MD Work Phone: [facility] 01-02-2025 11:48-0400 SaO2% (BldA) [Mass fraction] 98 % Blake Ng MD Work Phone: [facility] 01-02-2025 11:48-0400 Systolic blood pressure 112 mm[Hg] Blake Ng MD Work Phone: [facility] 10-20-2024 12:00-0400 Body height 188 cm Jaycob Ferguson DO Work Phone: [facility] 10-20-2024 12:00-0400 Body mass index (BMI) [Ratio] 26.71 kg/m2 Jaycob Brown DO Work Phone: [facility] 10-20-2024 12:00-0400 Body weight 94.35 kg Jaycob Ferguson DO Work Phone: [facility] 10-13-2024 09:16-0400 Body height 188 cm Isabella Powell DPM Work Phone: [facility] 10-13-2024 09:16-0400 Body mass index (BMI) [Ratio] 26.96 kg/m2 Isabella Powell DPM Work Phone: [facility] 10-13-2024 09:16-0400 Body weight 95.25 kg Isabella Powell DPM Work Phone: [facility] 08-05-2024 10:48-0500 Body height 188 cm Blake Ng MD Work Phone: [facility] 08-05-2024 10:48-0500 Body mass index (BMI) [Ratio] 27.09 kg/m2 Blake Ng MD Work Phone: [facility] 08-05-2024 10:48-0500 Body temperature 97.5 [degF] Blake Ng MD Work Phone: [facility] 08-05-2024 10:48-0500 Body weight 95.71 kg Blake Ng MD Work Phone: [facility] 08-05-2024 10:48-0500 Diastolic blood pressure 58 mm[Hg] Blake Ng MD Work Phone: [facility] 08-05-2024 10:48-0500 Heart rate 85 /min Blake Ng MD Work Phone: [facility] 08-05-2024 10:48-0500 Respiratory rate 18 /min Blake Ng MD Work Phone: [facility] 08-05-2024 10:48-0500 SaO2% (BldA) [Mass fraction] 97 % Blake Ng MD Work Phone: [facility] 08-05-2024 10:48-0500 Systolic blood pressure 122 mm[Hg] Blake Ng MD Work Phone: [facility] 07-07-2024 09:40-0500 Body height 188 cm Isabella Swan DPM Work Phone: [facility] 07-07-2024 09:40-0500 Body mass index (BMI) [Ratio] 26.06 kg/m2 Isabella Swan DPM Work Phone: [facility] 07-07-2024 09:40-0500 Body weight 92.08 kg Isabella Andre DPM Work Phone: [facility] 06-20-2024 09:29-0500 Body height 188 cm Blake Ng MD Work Phone: [facility] 06-20-2024 09:29-0500 Body mass index (BMI) [Ratio] 26.06 kg/m2 Blake Ng MD Work Phone: [facility] 06-20-2024 09:29-0500 Body temperature 98.01 [degF] Blake Ng MD Work Phone: [facility] 06-20-2024 09:29-0500 Body weight 92.08 kg Blake Ng MD Work Phone: [facility] 06-20-2024 09:29-0500 Diastolic blood pressure 62 mm[Hg] Blake Ng MD Work Phone: [facility] 06-20-2024 09:29-0500 Heart rate 96 /min Blake Ng MD Work Phone: [facility] 06-20-2024 09:29-0500 Respiratory rate 22 /min Blake Ng MD Work Phone: [facility] 06-20-2024 09:29-0500 SaO2% (BldA) [Mass fraction] 98 % Blake Ng MD Work Phone: [facility] 06-20-2024 09:29-0500 Systolic blood pressure 160 mm[Hg] Blake Ng MD Work Phone: [facility] 05-15-2024 09:41-0500 Body height 188 cm Isabella Rusher DPM Work Phone: [facility] 05-15-2024 09:41-0500 Body mass index (BMI) [Ratio] 25.42 kg/m2 Isabella Rusher DPM Work Phone: [facility] 05-15-2024 09:41-0500 Body weight 89.81 kg Isabella Rusher DPM Work Phone: [facility] 04-14-2024 14:52-0500 Body height 188 cm Isabella Rusher DPM Work Phone: [facility] 04-14-2024 14:52-0500 Body mass index (BMI) [Ratio] 25.42 kg/m2 Isabella Rusher DPM Work Phone: [facility] 04-14-2024 14:52-0500 Body weight 89.81 kg Isabella Rusher DPM Work Phone: [facility] 04-02-2024 13:23-0400 Body height 188 cm Isabella Rusher DPM Work Phone: [facility] 04-02-2024 13:23-0400 Body mass index (BMI) [Ratio] 25.42 kg/m2 Isabella Rusher DPM Work Phone: [facility] 04-02-2024 13:23-0400 Body weight 89.81 kg Isabella Rusher DPM Work Phone: [facility] 03-26-2024 14:22-0400 Body height 188 cm Isabella Rusher DPM Work Phone: [facility] 03-26-2024 14:22-0400 Body mass index (BMI) [Ratio] 25.42 kg/m2 Isabella Rusher DPM Work Phone: [facility] 03-26-2024 14:22-0400 Body weight 89.81 kg Isabella Rusher DPM Work Phone: [facility] 03-24-2024 08:30-0400 Body height 188 cm Isabella Powell DPM Work Phone: [facility] 03-24-2024 08:30-0400 Body mass index (BMI) [Ratio] 25.42 kg/m2 Isabella Powell DPM Work Phone: [facility] 03-24-2024 08:30-0400 Body weight 89.81 kg Isabella Powell DPM Work Phone: [facility] 01-10-2024 10:36-0400 Body weight 89.81 kg MD Blake Ng Work Phone: [facility] 01-10-2024 10:36-0400 Diastolic blood pressure 69 mm[Hg] MD Blake Ng Work Phone: [facility] 01-10-2024 10:36-0400 Heart rate 83 /min MD Blake Ng Work Phone: [facility] 01-10-2024 10:36-0400 Respiratory rate 18 /min MD Blake Ng Work Phone: [facility] 01-10-2024 10:36-0400 SaO2% (BldA) [Mass fraction] 98 % MD Blake Ng Work Phone: [facility] 01-10-2024 10:36-0400 Systolic blood pressure 130 mm[Hg] MD Blake Ng Work Phone: [facility] 12-28-2023 09:39-0400 Blood Pressure Location Jermaine MANCIA [facility] 12-28-2023 09:39-0400 Body temperature 98.6 [degF] Jermaine MANCIA [facility] 12-28-2023 09:39-0400 Diastolic blood pressure 69 mm[Hg] Jermaine MANCIA [facility] 12-28-2023 09:39-0400 Heart rate 80 /min Jermaine MANCIA [facility] 12-28-2023 09:39-0400 Respiratory rate 16 /min Jermaine MANCIA [facility] 12-28-2023 09:39-0400 Systolic blood pressure 131 mm[Hg] Jermaine MANCIA [facility] 09-18-2023 10:01-0400 Body temperature 97.9 [degF] MD Blake Ng Work Phone: [facility] 09-18-2023 10:01-0400 Body weight 99.33 kg MD Blake Ng Work Phone: [facility] 09-18-2023 10:01-0400 Diastolic blood pressure 88 mm[Hg] MD Blake Ng Work Phone: [facility] 09-18-2023 10:01-0400 Heart rate 89 /min MD Blake Ng Work Phone: [facility] 09-18-2023 10:01-0400 Respiratory rate 16 /min MD Blake Ng Work Phone: [facility] 09-18-2023 10:01-0400 SaO2% (BldA) [Mass fraction] 94 % MD Blake Ng Work Phone: [facility] 09-18-2023 10:01-0400 Systolic blood pressure 168 mm[Hg] MD Blake Ng Work Phone: [facility] 08-22-2023 14:28-0400 Diastolic blood pressure 73 mm[Hg] MD Blake Ng Work Phone: [facility] 08-22-2023 14:28-0400 Heart rate 77 /min MD Blake Ng Work Phone: [facility] 08-22-2023 14:28-0400 Systolic blood pressure 144 mm[Hg] MD Blake Ng Work Phone: [facility] 06-13-2023 09:59-0500 Body temperature 97.8 [degF] MD Blake Ng Work Phone: [facility] 06-13-2023 09:59-0500 Body weight 97.06 kg MD Blake Ng Work Phone: [facility] 06-13-2023 09:59-0500 Diastolic blood pressure 84 mm[Hg] MD Blake Ng Work Phone: [facility] 06-13-2023 09:59-0500 Heart rate 84 /min MD Blake Ng Work Phone: [facility] 06-13-2023 09:59-0500 Respiratory rate 16 /min MD Blake Ng Work Phone: [facility] 06-13-2023 09:59-0500 SaO2% (BldA) [Mass fraction] 98 % MD Blake Ng Work Phone: [facility] 06-13-2023 09:59-0500 Systolic blood pressure 175 mm[Hg] MD Blake Ng Work Phone: [facility] 12-13-2022 09:33-0400 Body temperature 97.8 [degF] MD Blake Ng Work Phone: [facility] 12-13-2022 09:33-0400 Body weight 93.89 kg MD Blake Ng Work Phone: [facility] 12-13-2022 09:33-0400 Diastolic blood pressure 77 mm[Hg] MD Blake Ng Work Phone: [facility] 12-13-2022 09:33-0400 Heart rate 79 /min MD Blake Ng Work Phone: [facility] 12-13-2022 09:33-0400 Respiratory rate 18 /min MD Blake Ng Work Phone: [facility] 12-13-2022 09:33-0400 SaO2% (BldA) [Mass fraction] 98 % MD Blake Ng Work Phone: [facility] 12-13-2022 09:33-0400 Systolic blood pressure 150 mm[Hg] MD Blake Ng Work Phone: [facility] 09-11-2022 12:54-0400 Body temperature 98.1 [degF] MD Blake Ng Work Phone: [facility] 09-11-2022 12:54-0400 Body weight 97.52 kg MD Blake Ng Work Phone: [facility] 09-11-2022 12:54-0400 Diastolic blood pressure 89 mm[Hg] MD Blake Ng Work Phone: [facility] 09-11-2022 12:54-0400 Heart rate 85 /min MD Blake Ng Work Phone: [facility] 09-11-2022 12:54-0400 Respiratory rate 18 /min MD Blake Ng Work Phone: [facility] 09-11-2022 12:54-0400 SaO2% (BldA) [Mass fraction] 97 % MD Blake Ng Work Phone: [facility] 09-11-2022 12:54-0400 Systolic blood pressure 150 mm[Hg] MD Blake Ng Work Phone: [facility] 07-12-2022 09:42-0500 Body temperature 97.8 [degF] MD Blake Ng Work Phone: [facility] 07-12-2022 09:42-0500 Body weight 96.2 kg MD Blake Ng Work Phone: [facility] 07-12-2022 09:42-0500 Diastolic blood pressure 79 mm[Hg] MD Blake Ng Work Phone: [facility] 07-12-2022 09:42-0500 Heart rate 86 /min MD Blake Ng Work Phone: [facility] 07-12-2022 09:42-0500 Respiratory rate 18 /min MD Blake Ng Work Phone: [facility] 07-12-2022 09:42-0500 SaO2% (BldA) [Mass fraction] 99 % MD Blake Ng Work Phone: [facility] 07-12-2022 09:42-0500 Systolic blood pressure 146 mm[Hg] MD Blake Ng Work Phone: [facility] 05-15-2022 08:50-0500 Diastolic blood pressure 89 mm[Hg] MD Blake Ng Work Phone: [facility] 05-15-2022 08:50-0500 Heart rate 91 /min MD Blake Ng Work Phone: [facility] 05-15-2022 08:50-0500 Respiratory rate 16 /min MD Blake Ng Work Phone: [facility] 05-15-2022 08:50-0500 SaO2% (BldA) [Mass fraction] 96 % MD Blake Ng Work Phone: [facility] 05-15-2022 08:50-0500 Systolic blood pressure 131 mm[Hg] MD Blake Ng Work Phone: [facility] 05-15-2022 07:17-0500 Body height 187.96 cm MD Blake Ng Work Phone: [facility] 05-15-2022 07:17-0500 Body mass index (BMI) [Ratio] 26.6 kg/m2 MD Blake Ng Work Phone: [facility] 05-15-2022 07:17-0500 Body weight 94.1 kg MD Blake Ng Work Phone: [facility] 05-15-2022 06:05-0500 Body temperature 98 [degF] MD Blake Ng Work Phone: [facility] 04-27-2022 13:38-0500 Body height 187.96 cm MD Blake Ng Work Phone: [facility] 04-27-2022 09:42-0500 Body height 187.96 cm MD Blake Ng Work Phone: [facility] 04-27-2022 09:42-0500 Body temperature 98 [degF] MD Blake Ng Work Phone: [facility] 04-27-2022 09:42-0500 Body weight 95.8 kg MD Blake Ng Work Phone: [facility] 04-27-2022 09:42-0500 Diastolic blood pressure 84 mm[Hg] MD Blake Ng Work Phone: [facility] 04-27-2022 09:42-0500 Heart rate 81 /min MD Blake Ng Work Phone: [facility] 04-27-2022 09:42-0500 Respiratory rate 18 /min MD Blake Ng Work Phone: [facility] 04-27-2022 09:42-0500 SaO2% (BldA) [Mass fraction] 98 % MD Blake Ng Work Phone: [facility] 04-27-2022 09:42-0500 Systolic blood pressure 154 mm[Hg] MD Blake Ng Work Phone: [facility] 04-14-2022 10:35-0400 Blood Pressure Location Jermaine MANCIA [facility] 04-14-2022 10:35-0400 Diastolic blood pressure 74 mm[Hg] Jermaine MANCIA [facility] 04-14-2022 10:35-0400 Heart rate 56 /min Jermaine MANCIA [facility] 04-14-2022 10:35-0400 Respiratory rate 16 /min Jermaine MANCIA [facility] 04-14-2022 10:35-0400 Systolic blood pressure 136 mm[Hg] Jermaine MANCIA [facility] 12-23-2021 08:14-0400 Blood Pressure Location Jermaine MANCIA [facility] 12-23-2021 08:14-0400 Diastolic blood pressure 75 mm[Hg] Jermaine MANCIA [facility] 12-23-2021 08:14-0400 Heart rate 80 /min Jermaine MANCIA [facility] 12-23-2021 08:14-0400 Respiratory rate 16 /min Jermaine MANCIA [facility] 12-23-2021 08:14-0400 Systolic blood pressure 134 mm[Hg] Jermaine MANCIA [facility] Encounters Encounter Date Encounter Type Care Provider Facility Start: 01-30-2025 End: 01-30-2025 Clinisync Result Encounter Generic External Data Provider [facility] External [facility] Unsolicited Start: 01-30-2025 End: 01-30-2025 Clinisync Result Encounter Generic External Data Provider [facility] External Department Unsolicited Start: 01-26-2025 End: 01-26-2025 Bamboo flowsheet Isabella Powell DPM Work Phone: [facility] Start: 01-26-2025 End: 01-26-2025 Bamboo flowsheet Isabella Powell DPM Work Phone: [facility] Start: 01-26-2025 End: 01-26-2025 Patient encounter procedure Isabella Powell DPM Work Phone: [facility] Comment on above: Dermatophytosis of n ail (Primary Dx); Dystrophic nail; Diabetic polyneuropathy associated with type 2 diabetes mellitus (HCC); Encounter for long-term (current) use of insulin (HCC) Start: 01-26-2025 End: 01-26-2025 ambulatory ISABELLA POWELL Not Available Start: 01-19-2025 End: 01-19-2025 ambulatory [facility] Start: 01-19-2025 End: 01-19-2025 Encounter for preprocedural cardiovascular examination [facility] Start: 01-12-2025 End: 01-12-2025 Clinisync Result Encounter Balke Ng MD Work Phone: [facility] External [facility] Unsolicited Start: 01-12-2025 End: 01-12-2025 Clinisync Result Encounter Blake Ng MD Work Phone: [facility] External [facility] Unsolicited Start: 01-08-2025 ambulatory Jermaine Foreman ty:[id number] Start: 01-02-2025 End: 01-02-2025 Bamboo flowsheet Blake Ng MD Work Phone: [facility] Start: 01-02-2025 End: 01-02-2025 Bamboo flowsheet Blake Ng MD Work Phone: [facility] Start: 01-02-2025 End: 01-02-2025 Office outpatient visit 25 minutes Blake Ng MD Work Phone: [facility] Comment on above: Preoperative clearan ce [...] Start: 12-29-2024 End: 12-29-2024 ambulatory Jermaine MANCIA Facility:[facility] Start: 12-29-2024 End: 12-29-2024 ambulatory Jermaine MANCIA Facility:[facility] Start: 12-29-2024 End: 12-29-2024 Patient encounter procedure Jermaine MANCIA [facility] Start: 12-24-2024 End: 12-24-2024 Patient encounter procedure Jermaine Mancia MD -[facility] Work Phone: Start: 12-24-2024 End: 12-24-2024 ambulatory Blake Ng MD Work Phone: [facility] Work Phone: Start: 11-04-2024 End: 11-04-2024 [facility] Work Phone: Start: 11-04-2024 End: 11-04-2024 ambulatory Jermaine Mancia [facility] Work Phone: Start: 10-20-2024 End: 10-20-2024 Patient encounter procedure Jaycob Ferguson DO Work Phone: [facility] Comment on above: Left elbow pain (Miranda tre Dx) Start: 10-20-2024 End: 10-20-2024 ambulatory JAYCOB A ANIYAH Not Available Start: 10-20-2024 End: 10-20-2024 ambulatory JAYCOB A ANIYAH Not Available Start: 10-13-2024 End: 10-13-2024 Bamboo flowsheet Isabella Powell DPM Work Phone: [facility] Start: 10-13-2024 End: 10-13-2024 Bamboo flowsheet Isabella Powell DPM Work Phone: [facility] Start: 10-13-2024 End: 10-13-2024 Patient encounter procedure Isabella Powell DPM Work Phone: [facility] PODIATRY Comment on above: Dermatophytosis of n ail (Primary Dx); Dystrophic nail; Diabetic polyneuropathy associated with type 2 diabetes mellitus ([facility]); Encounter for long-term (current) use of insulin ([facility]) Start: 10-13-2024 End: 10-13-2024 ambulatory ISABELLA POWELL [...] encounter procedure Blake Ng MD Work Phone: [facility] [place] Work Phone: Start: 08-06-2024 End: 08-06-2024 ambulatory Blake Ng MD Work Phone: [facility] Work Phone: Start: 08-05-2024 End: 08-05-2024 [...] hyperglycemia, with long-term current use of insulin (CMS/[facility]); Benign essential hypertension (CMS/[facility]); Encounter for long-term current use of medication Start: 08-05-2024 End: 08-05-2024 Patient encounter procedure Blake Ng MD Work Phone: [facility] Work Phone: Start: 08-05-2024 End: 08-05-2024 ambulatory BLAKE NG Not Available Start: 07-21-2024 End: 07-21-2024 Bamboo flowsheet Symone Mcmahon MD Work Phone: [facility] Start: 07-21-2024 End: 07-21-2024 Bamboo flowsheet Symone Mcmahon MD Work Phone: [facility] Start: 07-21-2024 End: 07-21-2024 Office outpatient visit 15 minutes Symone Mcmahon MD Work Phone: [facility] Comment on above: Melanocytic nevus of trunk (Primary Dx); Seborrheic keratosis; Lentigines; Actinic keratosis; Capillary angioma; Melanocytic nevus of face, other location; Epidermal inclusion cyst; Nummular eczema Start: 07-21-2024 End: 07-21-2024 ambulatory SYMONE Bernabe GALILEA Not Available Start: 07-07-2024 End: 07-07-2024 Bamboo flowsheet Isabella Powell DPM Work Phone: [facility] Start: 07-07-2024 End: 07-07-2024 Bamboo flowsheet Isabella Powell DPM Work Phone: [facility] Start: 07-07-2024 End: 07-07-2024 Patient encounter procedure Isabella Powell DPM Work Phone: [facility] Comment on above: Dermatophytosis of n ail (Primary Dx); Dystrophic nail; Diabetic polyneuropathy associated with type 2 diabetes mellitus ([facility]/HCC); 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 ([facility]/HCC); Encounter for long-term (current) use of insulin ([facility]) Start: 07-07-2024 End: 07-07-2024 ambulatory ISABELLA POWELL Not Available Start: 06-20-2024 End: 06-20-2024 Bamboo flowsheet Blake Ng MD Work Phone: [facility] Start: 06-20-2024 End: 06-20-2024 Bamboo flowsheet Blake Ng MD Work Phone: [facility] Start: 06-20-2024 End: 06-20-2024 Office outpatient visit 15 minutes Blake Ng MD Work Phone: [facility] Comment on above: Acute non-recurrent maxillary sinusitis (Primary Dx); Type 2 diabetes mellitus with hyperglycemia, with long-term current use of insulin ([facility]) Start: 06-20-2024 End: 06-20-2024 ambulatory BLAKE NG Not Available Start: 05-15-2024 End: 05-15-2024 Bamboo flowsheet Isabella Powell DPM Work Phone: [facility] Start: 05-15-2024 End: 05-15-2024 Bamboo flowsheet Isabella Powell DPM Work Phone: [facility] Start: 05-15-2024 End: 05-15-2024 ambulatory ISABELLA POWELL Not Available Start: 05-15-2024 End: 05-15-2024 Office outpatient visit 15 minutes Isabella Powell DPM Work Phone: [facility] Comment on above: Type 2 diabetes enmanuel itus with Charcot joint of left foot (CMS/HCC) (Primary Dx); Diabetic polyneuropathy associated with type 2 diabetes mellitus (CMS/HCC); Swelling of left foot; Encounter for long-term (current) use of insulin (CMS/HCC) Start: 05-15-2024 End: 05-15-2024 ambulatory ISABELLA POWELL Not Available Start: 04-21-2024 End: 04-21-2024 Telephone encounter Isabella Powell DPM Work Phone: [facility] Comment on above: Advice Only Start: 04-14-2024 End: 04-14-2024 ambulatory ISABELLA POWELL Not Available Start: 04-14-2024 End: 04-14-2024 ambulatory ISABELLA POWELL Not Available Start: 04-14-2024 End: 04-14-2024 Office outpatient visit 25 minutes Isabella Powell DPM Work Phone: [facility] Comment on above: Type 2 diabetes enmanuel itus with Charcot joint of left foot (CMS/HCC) (Primary Dx); Diabetic polyneuropathy associated with type 2 diabetes mellitus (CMS/HCC); Swelling of left foot; Encounter for long-term (current) use of insulin (CMS/HCC) Start: 04-14-2024 End: 04-14-2024 Bamboo flowsheet Isabella Powell DPM Work Phone: [facility] Start: 04-14-2024 End: 04-14-2024 Bamboo flowsheet Isabella Powell DPM Work Phone: [facility] Start: 04-06-2024 End: 04-07-2024 Mario Ng MD Work Phone: [facility] Comment on above: Type 2 diabetes enmanuel itus with hyperglycemia, with long-term current use of insulin (CMS/HCC) (Primary Dx) Start: 04-02-2024 End: 04-02-2024 Bamboo flowsheet Isabella Powell DPM Work Phone: [facility] Start: 04-02-2024 End: 04-02-2024 Bamboo flowsheet Isabella Powell DPM Work Phone: [facility] Start: 04-02-2024 End: 04-02-2024 Patient encounter procedure Isabella Powell DPM Work Phone: [facility] Comment on above: Diabetic polyneuropa thy associated with type 2 diabetes mellitus (CMS/HCC) (Primary Dx); Encounter for long-term (current) use of insulin (CMS/HCC) Start: 04-02-2024 End: 04-02-2024 ambulatory ISABELLA POWELL Not Available Start: 04-01-2024 End: 04-01-2024 Bamboo flowsheet Isabella Powell DPM Work Phone: [facility] Start: 04-01-2024 End: 04-01-2024 Bamboo flowsheet Isabella Powell DPM Work Phone: [facility] Start: 03-26-2024 End: 03-26-2024 Postop follow up visit related to original px Isabella Powell DPM Work Phone: [facility] Comment on above: Diabetic polyneuropa thy associated with type 2 diabetes mellitus (CMS/HCC) (Primary Dx); Encounter for long-term (current) use of insulin (CMS/HCC) Start: 03-26-2024 End: 03-26-2024 ambulatory ISABELLA POWELL Not Available Start: 03-26-2024 End: 03-26-2024 Bamboo flowsheet Isabella Powell DPM Work Phone: [facility] Start: 03-26-2024 End: 03-26-2024 Bamboo flowsheet Isabella Powell DPM Work Phone: [facility] Start: 03-24-2024 End: 03-24-2024 Bamboo flowsheet Isabella Powell DPM Work Phone: [facility] Start: 03-24-2024 End: 03-24-2024 Bamboo flowsheet Isabella Powell DPM Work Phone: [facility] Start: 03-24-2024 End: 03-24-2024 Patient encounter procedure Iasbella Powell DPM Work Phone: [facility] Comment on above: Dermatophytosis of n ail (Primary Dx); Dystrophic nail; Diabetic polyneuropathy associated with type 2 diabetes mellitus ([facility]); Encounter for long-term (current) use of insulin ([facility]) Start: 03-24-2024 End: 03-24-2024 ambulatory ISABELLA POWELL Not Available Start: 01-28-2024 End: 01-28-2024 ambulatory BLAKE NG Not Available Start: 01-25-2024 End: 01-25-2024 Patient encounter procedure MD Blake Ng Work Phone: [facility] [place] Work Phone: Start: 01-25-2024 End: 01-25-2024 ambulatory MD Blake Ng Work Phone: [facility] Work Phone: Start: 01-10-2024 End: 01-10-2024 ambulatory MD Blake Ng Work Phone: [facility] Work Phone: Start: 01-10-2024 End: 01-10-2024 Patient encounter procedure MD Blake Ng Work Phone: [facility] Work Phone: Start: 01-10-2024 Registered Recurring MD Blake arredondo [facility] Work Phone: Start: 12-28-2023 End: 12-28-2023 Patient encounter procedure Jermaine MANCIA [facility] Start: 12-19-2023 End: 12-19-2023 ambulatory MD Blake Ng Work Phone: [facility] Work Phone: Start: 12-19-2023 End: 12-19-2023 Patient encounter procedure MD Blake Ng Work Phone: [facility] Work Phone: Start: 09-18-2023 End: 09-18-2023 ambulatory MD Blake Ng Work Phone: [facility] Work Phone: Start: 09-18-2023 End: 09-18-2023 Patient encounter procedure MD [facility] [place] [facility] Work Phone: Start: 09-18-2023 Registered Recurring MD Blake arredondo Work Phone: [facility] Work Phone: Start: 08-22-2023 End: 08-22-2023 ambulatory MD Blake Ng Work Phone: [facility] Work Phone: Start: 08-22-2023 End: 08-22-2023 Patient encounter procedure MD Blake Ng Work Phone: [facility]Electrodiagnostics Work Phone: Start: 07-19-2023 Bamboo flowsheet [...] keratoses Start: 06-13-2023 Registered Recurring MD Blake raredondo [facility] [place] [facility] Work Phone: Start: 12-13-2022 End: 12-13-2022 ambulatory MD Blake Ng Work Phone: [facility] Work Phone: Start: 12-13-2022 End: 12-13-2022 Registered Recurring MD Blake Ng [facility] [place] Work Phone: Start: 12-05-2022 End: 12-05-2022 ambulatory MD Blake Ng Work Phone: [facility] Work Phone: Start: 12-05-2022 End: 12-05-2022 Patient encounter procedure MD Blake Ng Work Phone: [facility] [place] Work Phone: Start: 09-11-2022 End: 09-11-2022 ambulatory MD Blake Ng Work Phone: [facility] Work Phone: Start: 09-11-2022 End: 09-11-2022 Registered Recurring MD Blake Ng [facility] Work Phone: Start: 07-27-2022 End: 07-28-[address] BLAKE NG Facility: Start: 07-12-2022 End: 07-12-2022 ambulatory MD Blake Ng Work Phone: [facility] Work Phone: Start: 07-12-2022 End: 07-12-2022 Registered Recurring MD Blake Ng [facility] Work Phone: Start: 05-15-2022 End: 05-15-2022 Admission to same day surgery center MD Blake Ng Work [facility] [place] Start: 05-15-2022 End: 05-15-2022 ambulatory MD Blake Ng Work Phone: [facility] Work Phone: Start: 05-08-2022 End: 05-08-2022 ambulatory MD Blake Ng Work Phone: [facility] Work Phone: Start: 05-08-2022 End: 05-08-2022 Patient encounter procedure MD Blake Ng Work Phone: [facility]-Pre-Surgical Testing Start: 05-08-2022 Registered Recurring MD Blake arredondo Work Phone: [facility] Start: 04-27-2022 End: 04-27-2022 ambulatory MD Blake gN Work Phone: [facility] Work Phone: Start: 04-27-2022 End: 04-27-2022 Registered Recurring MD Blake Ng Work Phone: [facility] Start: 04-14-2022 End: 04-14-2022 Patient encounter procedure Jermaine MANCIA [facility] Start: 03-28-2022 End: 03-28-2022 Patient encounter procedure Jermaine MANCIA [facility] Start: 03-01-2022 End: 03-01-2022 Patient encounter procedure MD Jermaine Mancia Work Phone: [facility]MRI [facility] [place] Start: 01-17-2022 End: 01-18-[address] BLAKE NG Facility:[facility] Start: 12-23-2021 End: 12-23-2021 Patient encounter procedure Jermaine MANCIA [facility] Start: 12-16-2021 End: 12-17-[address] JERMAINE MANCIA . Facility:[facility] Start: 10-25-2021 End: 10-25-2021 Patient encounter procedure Haroldo Sebastian MD Work Phone: Ophthalmology Comment on above: Iris nevus, left (Pr imary Dx); Dislocation of intraocular lens, sequela Start: 09-10-2017 End: 09-11-2017 Ambulatory DEFAULT PHYSICIAN Facility:[facility] Procedures Date Procedure Procedure Detail Performing Clinician Start: 01-30-2025 CA ECHO DOPPLER COMPLETE Generic External Data Provider Start: 01-12-2025 NM CARMEN PERF SPECT RE ST STR Blake Ng MD Work Phone: Start: 12-30-2024 CT ABDOMEN/PELVIS WO CONT Generic External Data Provider Start: 12-30-2024 ALL BASIC METABOLIC PANEL Generic External Data Provider Start: 12-30-2024 ECG 12-LEAD Generic Ex ternal Data Provider Start: 12-24-2024 Supine abdominal X-ray Blake Ng MD Work Phone: Start: 10-20-2024 Radex elbow complete minimum 3 views Jaycob Ferguson DO Work Phone: Start: 08-06-2024 Urine [...] Jermaine MANCIA Start: 03-01-2022 MR prostate wo/w con MD Blake Ng Work Phone: Start: 12-16-[address] BLAKE ARREDONDO Comment on above: Performed By: #### P SAD #### [facility] [address] [place] [address] Dr. Sary Elkins Start: 10-25-2021 Oph us dx ant sgm us immersion b-scan/hr biom Haroldo Sebastian MD Work Phone: Start: 10-25-2021 End: 10-25-2021 Xtrnl ocular photog w/i&r docar medical progre Haroldo Sebastian MD Work Phone: [...] IT WAS LEFT Placement of stent Jermaine Daniel NIDHIMARCELA Comment on above: Cysto, stent placeme nt * 10/16/08, 08/10/08 Removal of stent Jermaine ISAAK PATTEN Comment on above: Cysto, stent removal * 09/01/08 Renal lithotripsy Jermaine MEAD Comment on above: X5 Tonsillectomy Jermaine MANCIA Plan of Treatment Date Care Activity Detail Author Start: 08-14-2025 Glaucoma screening Diabetes: R etinopathy Screening [facility] Start: 08-06-2025 Urine screening for protein Diabetes: Urine Protein Screening [facility] Start: 08-05-2025 Medicare Annual Wellness (AWV) Medicare Annual Wellness (AWV) [facility] Start: 08-04-2025 End: 08-04-2025 Patient encounter procedure 08/04/2025 10:20 AM EST Office Visit [facility] [address] [place] [phone] Symone Mcmahon MD [address] [place] [address] [facility] [place] [facility] Start: 07-28-2025 End: 07-28-2025 Patient encounter procedure [facility] Start: 04-28-2025 End: 04-28-2025 Patient encounter procedure 04/28/2025 9:15 AM EST Procedure Visit [facility] [address] [place] [phone] Isabella Powell [facility] [address] [place], [place] [id number] [facility] Start: 02-09-2025 Influenza vaccination Influenza Vacc ine (#1) [facility] Start: 02-03-2025 Hemoglobin A1c measurement Diabetes: Hemoglobin A1C [facility] Start: 02-03-2025 End: 02-03-2025 Patient encounter procedure 02/03/2025 10:30 AM EDT Office Visit [facility] [address] [place] [address] Blake Ng MD [address] [place] [address] [facility] Start: 01-26-2025 End: 01-26-2025 Patient encounter procedure [facility] Comment on above: Arrived Start: 01-02-2025 End: 01-02-2027 NM Heart Perfusion W single state of exercise Stress test with myocardial perfusion Cardiac Nuclear Medicine Routine Other chest pain Abnormal EKG Expected: 01/02/2025 (Approximate), Expires: 01/02/2027 [facility] Work Phone: Comment on above: Expected: 01/02/2025 (Approximate), Expires: 01/02/2027 Start: 01-02-2025 End: 01-02-2025 Patient encounter procedure 01/02/2025 11:45 AM EDT Office Visit [facility] [address] [place] [address] Blake Ng MD [address] [place] [address] Arrived [facility] Comment on above: Arrived Start: 10-13-2024 End: 10-13-2024 Patient encounter procedure [facility] Comment on above: Arrived Start: 08-07-2024 Urine screening for protein Diabetes: Urine Protein Screening [facility] Start: 08-06-2024 [facility] Start: 08-05-2024 End: 08-05-2025 Basic metabolic 1998 panel - Serum or Plasma Basic metabolic panel Lab Routine Encounter for long-term current use of medication Expected: 08/05/2024 (Approximate), Expires: 08/05/2025 [facility] Comment on above: Expected: 08/05/2024 (Approximate), Expires: 08/05/2025 Start: 08-05-2024 End: 08-05-2025 Hemoglobin A1c/Hemoglobin.total in Blood Hemoglobin A1c Lab Routine Type 2 diabetes mellitus with hyperglycemia, with long-term current use of insulin ([facility]) Expected: 08/05/2024 (Approximate), Expires: 08/05/2025 [facility] Work Phone: Comment on above: Expected: 08/05/2024 (Approximate), Expires: 08/05/2025 Start: 08-05-2024 End: 08-05-2025 Magnesium [Mass/volume] in Serum or Plasma Magnesium Lab Routine Encounter for long-term current use of medication Expected: 08/05/2024 (Approximate), Expires: 08/05/2025 [facility] Comment on above: Expected: 08/05/2024 (Approximate), Expires: 08/05/2025 Start: 08-05-2024 End: 08-05-2025 Microalbumin/Creatinine panel in random Urine Microalbumin / creatinine, urine ratio Lab Routine Type 2 diabetes mellitus with hyperglycemia, with long-term current use of insulin ([facility]) Expected: 08/05/2024 (Approximate), Expires: [facility]/2025 [facility] Comment on above: Expected: 08/05/2024 (Approximate), Expires: 08/05/2025 Start: 08-05-2024 End: 08-05-2024 Patient encounter procedure [facility] Comment on above: Arrived Start: 08-01-2024 Hemoglobin A1c measurement Diabetes: Hemoglobin A1C [facility] Start: 07-21-2024 End: 07-21-2024 Patient encounter procedure [facility] Comment on above: Arrived Start: 07-16-2024 Glaucoma screening Diabetes: R etinopathy Screening [facility] Start: 07-07-2024 End: 07-07-2024 Patient encounter procedure [facility] Comment on above: Arrived Start: 06-20-2024 End: 06-20-2024 Patient encounter procedure 06/20/2024 9:15 AM EST Office Visit [facility] [address] [place] [address] Blake Ng MD [address] [place] [address] [facility] Start: 05-15-2024 End: 05-15-2024 Patient encounter procedure [facility] Comment on above: Arrived Start: 05-01-2024 Hemoglobin A1c measurement Diabetes: Hemoglobin A1C [facility] Start: 04-24-2024 End: 04-24-2024 Patient encounter procedure 04/24/2024 9:30 AM EST Office Visit [facility] [address] [place] [phone] Isabella Powell DPM [address] [place] [phone] [facility] Start: 04-23-2024 End: 04-23-2024 Patient encounter procedure 04/23/2024 11:15 AM EST Office Visit [facility] [address] [place] [address] Isabella Powell DPM [address] [place] [address] [facility] Start: 04-02-2024 End: 04-02-2024 Patient encounter procedure 04/02/2024 1:30 PM EDT Office Visit [facility] [address] [place] [address] Isabella Powell DPM [address] [place] [address] Arrived [facility] Comment on above: Arrived Start: 03-26-2024 End: 03-26-2024 Patient encounter procedure 03/26/2024 2:30 PM EDT Office Visit [facility] [address] [place] [address] Isabella Powell DP [address] [place] [address] Arrived [facility] Comment on above: Arrived Start: 03-24-2024 End: 03-24-2024 Patient encounter procedure 03/24/2024 8:30 AM EDT Procedure Visit [facility] [address] [place] [phone] Isabella Powell DPM [address] [place] [address] Arrived [facility] Comment on above: Arrived Start: 02-10-2024 Influenza vaccination Influenza Vacc ine (#1) [facility] Start: 08-22-2023 Radionuclide myocard ial perfusion stress study NM carmen perf SPECT rest & str [facility] Start: 08-22-2023 SPECT Heart perfusio n at rest and W stress and W radionuclide IV [facility] Start: 08-22-2023 End: 08-22-2023 Patient encounter procedure 08/22/2023 11:00 AM EDT Procedure Visit [facility] [address] [place] [phone] Isabella Powell DPM [address] [place], [place] [phone] [facility] Start: 07-19-2023 End: 07-19-2023 Patient encounter procedure 07/19/2023 9:45 AM EST Office Visit [facility] [address] [place] [address] Symone Mcmahon MD [address] [place] [address] Arrived [facility] Comment on above: Arrived Start: 05-15-2022 End: 05-15-2022 [facility] Start: 05-15-2022 [facility] Start: 03-01-2022 MR Prostate WO and W contrast IV [facility] Work Phone: Start: 03-01-2022 MR prostate wo/w con MR prostate wo/ w con [facility] Start: 02-09-2022 Influenza vaccination INFLUENZ A (Season Ended) [facility] Start: 06-11-2021 ADVANCE DIRECTIVE DISCUSSION ADVANCE DIRECTIVE DISCUSSION [facility] Start: 08-29-2020 DIABETES SCREEN DIABETES SCREEN [facility] Start: 08-08-2018 Hemoglobin A1c measurement Diabetes: Hemoglobin A1C [facility] Start: 2010 PNEUMOVAX AGE 65 AND OVER WITH 5YR LOOKBACK (#1) PNEUMOVAX AGE 65 AND OVER WITH 5YR LOOKBACK (#1) [facility] Start: 1995 SHINGRIX VACCINE (1 of 2) SHINGRIX VACCINE (1 of 2) [facility] Start: 1964 Urine microalbumin profile DTAP,TDAP,TD (1 - Tdap) [facility] Start: 1964 Urine screening for protein Diabetes: Urine Protein Screening [facility] Start: 1963 HEPATITIS C SCREENING HEPATITIS C [facility] Start: 1957 Adult depression screening assessment DEPRESSION SCREENING [facility] Start: 1955 Glaucoma screening Diabetes: R etinopathy Screening [facility] Start: 1950 COVID-19 VACCINE (#1) COVID-19 VACCI NE (#1) [facility] Start: 1945 Medicare Annual Wellness (AWV) Medicare Annual Wellness (AWV) [facility] Computed tomography for radiotherapy planning [facility] Glucose measurement estimated from glycated hemoglobin [facility] Hemoglobin A1c/Hemoglobin.total in Blood [facility] MR Prostate WO and W contrast IV [facility] Immunizations Immunization Date Immunization Notes Care Provider [facility] 04-30-2024 SARS-COV-2 (COVID-19 ) vaccine, mRNA, spike protein, LNP, PF, 50 mcg/0.5 mL Isabella Powell DPM Work Phone: [facility] 04-30-2024 Seasonal trivalent influenza vaccine, adjuvanted, preservative free Isabella Powell DPM Work Phone: [facility] 04-30-2024 influenza virus vacc ine, unspecified formulation Isabella Powell DPM Work Phone: [facility] 05-07-2023 Influenza, Seasonal, Quadrivalent, Adjuvanted Symone Mcmahon MD Work Phone: [facility] 05-07-2023 SARS-COV-2 (COVID-19 ) vaccine, mRNA, spike protein, LNP, PF, 50 mcg/0.5 mL Symone Mcmahon MD Work Phone: [facility] 05-07-2023 influenza virus vacc ine, unspecified formulation Isabella Powell DPM Work Phone: [facility] 03-29-2022 COVID-19 mRNA Bivale nt Booster (Pfizer) MD Blake Ng Work Phone: [facility] Comment on above: Result Comment: 2022: [id number] 03-29-2022 influenza virus vacc ine, unspecified formulation Symone Mcmahon MD Work Phone: [facility] [facility] 03-15-2021 COVID-19 mRNAKalin (Pfizer) MD Blake Ng Work Phone: [facility] Comment on above: Result Comment: 2022: [id number] 03-02-2021 influenza virus vacc ine, unspecified formulation Jermaine MANCIA [facility] 03-02-2021 Influenza, High-dose Seasonal, Quadrivalent, Preservative Free Symone Mcmahon MD Work Phone: [facility] 08-11-2020 COVID-19 mRNAKalin (Pfizer) MD Blake Ng Work Phone: [facility] 07-26-2020 SARS-CoV-2 (COVID-19 ) mRNA BNT-162b2 vax Jermaine MANCIA [facility] 07-14-2020 COVID-19 mRNAKalin (Pfizer) MD Blake Ng Work Phone: [facility] 04-27-2020 pneumococcal polysaccharide vaccine, 23 valent Symone Mcmahon MD Work Phone: [facility] 04-05-2020 influenza, injectabl e, quadrivalent, preservative free Symone Mcmahon MD Work Phone: [facility] 02-24-2020 influenza virus vacc ine, unspecified formulation Jermaine MANCIA [facility] 02-24-2020 Influenza, High-dose Seasonal, Quadrivalent, Preservative Free Symone Mcmahon MD Work Phone: [facility] 03-26-2019 influenza virus vacc ine, unspecified formulation Jermaine MANCIA [facility] 03-26-2019 pneumococcal conjuga te vaccine, 13 valent Symone Mcmahon MD Work Phone: [facility] 03-26-2019 Seasonal trivalent influenza vaccine, adjuvanted, preservative free Symone Mcmahon MD Work Phone: [facility] 03-11-2019 influenza, high dose seasonal, preservative-free Symone Mcmahon MD Work Phone: [facility] 03-11-2019 pneumococcal polysaccharide vaccine, 23 valent Symone Mcmahon MD Work Phone: [facility] 03-18-2018 influenza virus vacc ine, unspecified formulation Jermaine MANCIA [facility] 03-18-2018 influenza, injectabl e, quadrivalent, preservative free Symone Mcmahon MD Work Phone: [facility] 03-21-2017 influenza virus vacc ine, unspecified formulation Jermaine MANCIA [facility] 03-21-2017 influenza, high dose seasonal, preservative-free Symone Mcmahon MD Work Phone: [facility] 03-12-2017 influenza virus vacc ine, unspecified formulation Jermaine MANCIA [facility] 03-12-2017 influenza, injectabl e, quadrivalent, preservative free Symone Mcmahon MD Work Phone: [facility] 03-30-2016 influenza virus vacc ine, unspecified formulation Jermaine MANCIA [facility] 03-30-2016 influenza, high dose seasonal, preservative-free Symone Mcmahon MD Work Phone: [facility] 02-22-2015 influenza virus vacc ine, unspecified formulation Jermaine MANCIA [facility] 02-22-2015 influenza, high dose seasonal, preservative-free Symone Mcmahon MD Work Phone: [facility] 04-01-2014 influenza virus vacc ine, unspecified formulation Jermaineroland MANCIA [facility] 04-01-2014 influenza, seasonal, injectable Symone Mcmahon MD Work Phone: [facility] 03-23-2014 pneumococcal polysaccharide vaccine, 23 valent Symone Mcmahon MD Work Phone: [facility] 05-19-2013 influenza virus vacc ine, unspecified formulation Jermaine MANCIA [facility] 05-19-2013 influenza, seasonal, injectable Symone Mcmahon MD Work Phone: [facility] Payers Date Payer Category Payer Unknown 2022 Unknown [id number] 2022 Self-pay [id number] 2013 Private Health Insurance [facility] AAR SUPPLEMENT [id number] 2013-Present [phone] [address] [place] [address] Indemnity [id number] 2011 Private Health Insurance [id number] 2011 Unknown [id number] 2010 Medicare MEDICARE MEDICAR E A AND B [id number] 2010-Present [phone] [address] [address] [place] [address] Medicare [id number] .[id number] 2010 Medicare [id number]. 1.13.693.2 .[id number] 1959 Medicare [id number] 1959 Unknown [id number] 1945 Unknown [id number] 2.16.840.1.000358.3.579.2 .593 1945 Unknown [id number] 2.16.840.1.175243.3.579.2 .593 1945 Unknown [id number] 2.16.840.1.276273.3.579.2 .593 1945 Unknown [id number] 2.16.840.1.252689.3.579.2 .1259 1945 Unknown [id number] 2.16.840.1.108933.3.579.2 .1259 1945 Unknown [id number] 2.16.840.1.542669.3.579.2 .1259 1945 Unknown [id number] 2.16.840.1.775839.3.579.2 .1259 1945 Unknown [id number] 2.16.840.1.990157.3.579.2 .1259 1945 Unknown [id number] 2.16.840.1.519180.3.579.2 .1259 1945 Unknown [id number] 2.16.840.1.403006.3.579.2 .1259 1945 Unknown [id number] 2.16.840.1.949713.3.579.2 .1259 1945 Unknown [id number] 2.16.840.1.334323.3.579.2 .1259 1945 Unknown [id number] 2.16.840.1.803579.3.579.2 .1259 1945 Unknown [id number] 2.16.840.1.318272.3.579.2 .1259 1945 Unknown [id number] 2.16.840.1.260851.3.579.2 .1258 1945 Unknown [id number] 2.16.840.1.478874.3.579.2 .125 1945 Unknown [id number] 2.16.840.1.794564.3.579.2 .1258 1945 Unknown [id number] 2.16.840.1.248297.3.579.2 .1258 1945 Unknown [id number] 2.16.840.1.631766.3.579.2 .1258 1945 Unknown [id number] 2.16.840.1.510865.3.579.2 .125 1945 Unknown [id number] 2.16.840.1.513034.3.579.2 .727 1945 Unknown [id number] 2.16.840.1.182240.3.579.2 .727 Unknown [facility] Health Claims [id number] Unknown [id number] 2.16.840.1.341645.3.579.2 .531 Unknown [id number] 2.16840.1.382350.3.579.2 .531 Unknown [id number] 2.16.840.1.946544.3.579.2 .531 Unknown [id number] 2.16840.1.478038.3.579.2 .531 Social History Date Type Detail Facility Start: 06-18-2018 End: 12-25-2022 Tobacco smoking status AKIS Never smoked tobacco [facility] Start: 06-18-2018 Tobacco use and exposure Smoke less tobacco non-user [facility] Start: 10-25-2021 End: 01-26-2025 Alcohol intake Current drinker of alcohol (finding) [facility] Start: 06-18-2018 History SDOH Alcohol Comment minimal [facility] Start: 1945 Sex Assigned At Not on file [facility] Tobacco smoking status No Smokin g Status Entered [facility] Start: 04-12-2023 End: 01-22-2024 Sex Assigned At Male [facility] Start: 1945 Sex Assigned At Male F [facility] Tobacco smoking status [facility] Start: 04-12-2023 End: 01-22-2024 History of Social function [facility] Frequency of Alcohol Consumption Not on file [facility] How many standard dr inks containing alcohol do you have on a typical day? 1 or 2 [facility] How often do you hav e 6 or more drinks on 1 occasion? Weekly [facility] Start: 12-24-2022 Alcohol Comment Caffeine intak e: 1-2 cups per day, coffee, soda [facility] Do you belong to any clubs or organizations such as restoration groups, unions, fraternal or athletic groups, or [...] Start: 12-27-2011 End: 08-07-2024 Sex Male (finding) [facility] How often do you nee d to have someone help you when you read instructions, pamphlets, or other written material from your doctor or pharmacy [SILS] Often [facility] Medical Equipment Procedure Code Equipment Code Equipment Origin al Text Equipment Identifier Dates Injection, hydrogel spacer Radiotherapy protection spacer [id number] FDA Start: 05-15-2022 Injection, hydrogel spacer Imaging lesion localization marker, implantable ()[id number] FDA Start: 05-15-2022 1 each by In Vit ro route in the morning and 1 each in the evening and 1 each before bedtime. [id number] Start: 07-09-2023 1 each in the mo rning and 1 each in the evening and 1 each before bedtime. [id number] Start: 07-09-2023 GNP Insulin Syri nges 31Gx5/16 31G X 5/16 0.3 ML misc [id number] Start: 07-10-2023 USE DIRECTED to test BLOOD SUGAR THREE TIMES DAILY [id number] Start: 10-17-2023 1 each by Other route in the morning and 1 each in the evening and 1 each before bedtime. [id number] Start: 09-06-2023 Use as needed [id number] Start: 10-01-2023 As needed [id number] Start: 10-17-2023 Use as needed [id number] Start: 09-03-2024 USE DIRECTED to test BLOOD SUGAR IN THE MORNING, IN THE EVENING and BEFORE bedtime [id number] Start: 09-11-2024 USE DIRECTED to test BLOOD SUGAR THREE TIMES DAILY (IN THE MORNING, IN THE EVENING, and BEFORE bedtime) [id number] Start: 09-11-2024 As needed [id number] Start: 12-04-2024 Goals Date Patient Goal Desired Activity /State Functional Status Date Assessment Result Facility 12-28-2023 Functional Status N/A [facility] 04-14-2022 Functional Status N/A [facility] 12-23-2021 Functional Status N/A [facility] Clinical Notes 10-25-2021 to 01-26-2025 Isabella Powell DPM - 01/26/2025 9:15 AM EDTPatient InstructionsBlake Ng MD - 01/02/2025 12:56 PM Fly Ng MD - 01/02/2025 12:56 PM Fly Ng MD - 01/02/2025 12:55 PM EDT [...] Isabella Powell DPM documented in this encounter [facility] 01-26-2025 Instructions Isabella Powell DPM - 01/26/2025 9:15 AM EDT As noted documented in this encounter [facility] 01-19-2025 Note [place] Cardiology - [facility] Subjective Zach Chamorro is a 79 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 [facility] 01-02-2025 History of Present illness Narrative Associated [...] At times will occur after using riding plate maker zinc. Notice overall increased fatigue over past few [...] with myocardial perfusion documented in this encounter [facility] 12-29-2024 Hospital Discharge instructions Patient Education 12/29/2024 [...] if anything looks unusual. Males with a qjfmlv-abdq-zgxltk risk for skin cancer may want to see a infantry operations specialist (studio sales associate) for an annual body check. Where to find more information [place] [employer]: cancer.org Centers for Disease Control and Prevention: cdc.gov National Cancer [place]: cancer.gov Contact a health care provider if: [...] provider. Document Revised: 06/05/2023 Document Reviewed: 12/18/2022 [employer]ellar Patient Education 2023 [employer]. Follow Up Care 12/28/2023 10:42:14 With:MIKEY ARORA, Jermaine Cano, URL Address: [facility] [address], [place] [id number]- When: Unknown [facility] Norma 12-29-2024 Note Patient Education Oncology Cancer Screening [...] if anything looks unusual. Males with a ouikju-lgmr-clmllp risk for skin cancer may want to see a infantry operations specialist (dermatologi (more content not included)... [facility] 11-04-2024 Evaluation note Diagnosis Onset Date Resolution Prostate cancer acute November 04, 2024 9:41am Prostate cancer acute November 04, 2024 9:41am [facility] Work Phone: 1(837) 265-226005-27-2025 [facility] [place] [address] Cancer [facility] Note Signed Patient: Zach Chamorro MR#: [id number] : 1945 Acct:[id number] Age/Sex: 79 / M Type: DEP AMB Date of Service: 11/04/24 Copies to: Blake Ng MD~ Assessment & Plan A/P (1) Prostate cancer: Plan: Return to clinic with GLUE SPREADER Apr 2025 with next PSA Assessment: 78-year-old male with 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 Patient [...] prostate Patient Instructions: follow-up in 6mo with GLUE SPREADER PSA in 6mo CHEMO PLAN No Active [...] No Known Allergies Allergy (Verified 09/18/23 10:05) [facility] Medical History Medical History (Updated 07/12/22 @ [...] et al, and the Measurement Committeeof the [place] [employer]. The [place] [employer] symptom index for benign prostatic hyperplasia. J Urol. 1992; 148: 2013-9458. Copyright 1992 [place] [employer] Over the past six months [...] Bertrand APRN DD/ 0948 Signed By: 11/04/[address] [facility]05-12-2025 History of Present illness Narrative * Jaycob Ferguson DO - 10/20/2024 11:15 AM EDT Images [...] note was created using voice recognition through [employer]. documented in this [facility] CenterSqkdxbwikf10-41-7366 History of Present illness Narrative* Isabella Powell [...] understanding. Isabella Powell DPM documented in this encounterSSM Saint [facility] CenterBwctongmpo06-26-1323 History of Present illness Narrative* Blake Ng [...] Items Addressed This Visit Benign essential hypertension ([facility]) Type 2 diabetes mellitus with hyperglycemia, with long-term current use of insulin ([facility]) Relevant Orders Hemoglobin A1c Microalbumin / creatinine, [...] (Atarax) 25 MG tablet documented in this encounterSSM Saint [facility]'s Health CenterCovwtxjvjj50-67-0717 History of Present illness Narrative* Symone Mcmahon MD - 07/21/2024 9:45 AM EST Skin Check Location: Patient requests a skin examination from the waist up Dermatologic history: history of Actinic Keratosis Last visit: 1 year ago Follow up Diagnosis: Nummular eczema Location: ankles Last visit: 1 year ago Symptoms: red, scaly Status: stable Current treatment: Amlactin 12% lotion from light cleaner. Has TAC 0.1% cream but does not [...] limited to risks of scarring, darker or export clerk pigmentary changes, recurrence, incomplete removal and infection. [...] Next Visit: 1 year documented in this encounterSSM [facility] CenterBpeqkuebsm28-45-4302 History of Present illness Narrative* Isabella Powell [...] understanding. Isabella Powell DPM documented in this [facility]01-27-2025 Instructions* Patient Instructions* Isabella Powell DPM - 07/07/2024 9:30 AM EST As noted documented in this [facility]01-10-2025 History of Present illness Narrative* Blkae Ng MD - 06/20/2024 10:05 AM ESTAssociated Problem(s): Type 2 diabetes mellitus with hyperglycemia, with long-term current use of in sulin ([facility]) BS stable and warned prednisone will raise [...] hyperglycemia, with long-term current use of insulin ([facility]) BS stable and warned prednisone will raise [...] (Levaquin) 750 MG tablet documented in this encounterSSM Saint [facility] Health CenterZoegfjrcpw84-59-6977 History of Present illness Narrative* Isabella Powell DPM - 05/15/2024 9:45 AM EST Images [...] understanding. Isabella Powell DPM documented in this encounterSSM Saint [facility] Health CenterHmptedwlsx41-51-9311 Instructions* Patient Instructions* Isabella Powell DPM - 05/15/2024 9:45 AM EST As noted documented in this encounterSSM Saint [facility]'s Health CenterUplmosgysd31-98-7259 Telephone encounter Note* Telephone Encounter - Shayna Tobi - 04/21/2024 10:57 AM EST Patient is keeping diabetic shoes [facility] Eifjukebok61-53-3001 Miscellaneous Notes* Telephone Encounter - Shaynalupe Britton - 04/21/2024 10:57 AM EST Patient is keeping diabetic shoes documented in this encounterSSM Saint Mary's Health CenterJkcenckbce50-11-2781 History of Present illness Narrative* Isabella Powell [...] understanding. Isabella Powell DPM documented in this [facility]11-04-2024 Instructions* Patient Instructions* Isabella Powell DPM - 04/14/2024 2:45 PM EST Instructions as noted documented in this [facility]10-23-2024 History of Present illness Narrative* Isabella Powell DPM - 04/02/2024 1:30 PM EDT Images from the original note were not included. Subjective Patient ID: Zach Chamorro is a 78 y.o. 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 BS: 113 A1C: 7.1/Lv Dr. gN 01/28/2024/SS: 12). HPI Presents today for fitting [...] understanding. Isabella Powell DPM documented in this [facility]10-23-2024 Instructions* Patient Instructions* Isabella Powell DPM - 04/02/2024 1:30 PM EDT Acclimating instructions as noted documented in this [facility]10-16-2024 History of Present illness Narrative* Isabella Powell [...] Measurements obtained in the weight-bearing position; utilizing Goodie Goodie Appnock device. Patient education relative to appropriate sizing [...] understanding. Isabella Powell DPM documented in this [facility]10-16-2024 Instructions* Patient Instructions* Isabella Powell DPM - 03/26/2024 2:30 PM EDT As noted documented in this encounterSSM Saint Mary's Health CenterJmfpssfown59-24-9034 History of Present illness Narrative* Isabella Powell [...] understanding. Isabella Powell DPM documented in this encounterSSM Saint Mary's Health CenterErkgaqkmjj41-62-7561 Hospital Discharge instructions Patient Education 12/28/2023 10:30:14 [...] include: ?8 oz (237 mL) of milk, onakstm-udnwkpmzgjki-kdkhm milk, and calcium- fortifiedfruit juice. Calcium-fortified means [...] ?Spinach (cooked), rhubarb, beets, sweet potatoes, and [place]aguayan chard. ?Peanuts. ?Potato chips, armenian fries, and baked potatoes with skin on. ?Nuts and nut products. ?Chocolate. If you regularly take a diuretic medicine, make sure to eat at least 1 or 2 servings of fruits or vegetables that are high in potassium each day. These include: ?Avocado. ?Banana. ?[place], prune, carrot, or tomato juice. ?Baked potato. [...] magnesium, fish oil, or vitamin B6. Take ueak-oei-tuhewpr and prescription medicines only as told by [...] Casseroles. Pizza. Lasagna. Frozen meals. Potato chips. Telugu fries. The items listed above may not [...] provider. Document Revised: 09/07/2022 Document Reviewed: 09/07/2022 [employer]ellar Patient Education 2022 [employer]. Follow Up Care 12/29/2022 08:54:47 With:MIKEY ARORA, Jermaine Cano, URL Address: [address] [place] [address] [place] [id number]- When: Unknown [facility] 02-08-2024 History of Present illness Narrative* Symone [...] Current treatments: AmLactin 12% lotion recommended by light cleaner Established patient All pertinent medical history, medications, [...] 1 year, skin check documented in this encounterSSM Saint Mary's Health CenterLbabrmpaey91-73-1570 Progress note Author Rosa Davies [facility] December 13, 2022 10:35am Note Date/Time December 13, 2022 10:09 am [facility] [place] [address] Rad Onc Follow Up Note - OP Signed Patient: Zach Chamorro MR#: [id number] : 1945 Acct:[id number] Age/Sex: 77 / M Type: REG RCR Copies to: MD Jermaine Quintero MD~ Subjective - Service Date/Time Date: 12/13/22 Time: 10:09 - Diagnosis Adenocarcinoma the prostate, Tanna score 3+4= 7, intermediate risk with initial PSA of 5.69, stage T1cN0 M0 - Chief Complaint I am no urinary or bowel complaints - History of Present Illness 77-year-old male with 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 Multi parametric MRI is consistent with the biopsy findings. There was a singlecore of [place] 3+3+6 disease that was found on the [...] signed by Rosa Davies MD> 12/13/22 1035 [facility] Work Phone: 1(806) 547-297504-03-2023 Progress note Author Rosy Pina [facility] September 11, 2022 1:20pm Note Date/Time September 11, 2022 10:2 1am [facility] [place] [address] Rad Onc Follow Up Note - OP Signed Patient: Zach Chamorro MR#: [id number] : 1945 Acct:[id number] Age/Sex: 77 / M Type: REG RCR Copies to: MD Jermaine Quintero MD~ Date of Service Service Date: 09/11/22 Assessment & Plan (1) Prostate cancer Plan: Return to clinic December 2022 for PSA Assessment: 77-year-old male with 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 There was a singlecore of [place] 3+3+6 disease that was found on the [...] PI- RADS 4 MR fusion biopsy confirmed [place] 3+4 equal 7 in 3 cores including the region of interest as well as the right anterior medial gland and [place] 3+3 equal 6 in 1 core at [...] signed by Rosy Pina MD> 09/11/22 1320 [facility] Work Phone: 1(786) 600-988602-01-2023 Progress note Author Rosy Pina [facility] July 12, 2022 9:52am Note Date/Time July 12, 2022 9 :36am [facility] [place] [id number] Rad Onc Follow Up Note - OP Signed Patient: Zach Chamorro MR#: [id number] : 1945 Acct:[id number] Age/Sex: 76 / M Type: REG RCR Copies to: MD Jermaine Quintero MD~ Date of Service Service Date: 07/12/22 Assessment & Plan (1) Prostate cancer Plan: Return to clinic 2 months for first posttreatment PSA Assessment: 76-year-old male with 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, [place] 3+4equal 7 disease in 3 cores on [...] as the right anterior medial gland and [place] 3+3 equal 6 in 1 core at [...] <Electronically signed by Rosy Pina MD> 07/12/2252 [facility] Work Phone: 1(525) 368-814502-01-2023 Progress note Author Rosy Pina [facility] July 12, 2022 9:52am Note Date/Time July 12, 2022 9 :36am [facility] [place] [id number] Rad Onc Follow Up Note - OP Signed Patient: Zach Chamorro MR#: [id number] : 1945 Acct:[id number] Age/Sex: 76 / M Type: REG RCR Copies to: MD Jermaine Quintero MD~ Date of Service Service Date: 07/12/22 Assessment & Plan (1) Prostate cancer Plan: Return to clinic 2 months for first posttreatment PSA Assessment: 76-year-old male with 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, [place] 3+4equal 7 disease in 3 cores on [...] <Electronically signed by Rosy Pina MD> 07/12/2252 [facility] Work Phone: 1(635) 208-837012-05-2022 Procedure [facility]12-05-2022 Procedure [facility]11-17-2022 Consult note Author Rosy Pina [facility] April 27, 2022 1:21pm Note Date/Time April 27, 2022 8:37am [facility] [place] [address] Rad Onc Consult Note - OP Signed Patient: Zach Chamorro MR#: [id number] : 1945 Acct:[id number] Age/Sex: 76 / M Type: REG RCR [...] male with 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 I reviewed his MRI and pathology. Multi parametric MRI is consistent with the biopsy findings. There is a single core of [place] 3+3+6 disease that was foundon the left. [...] PI- RADS 4 MR fusion biopsy confirmed Smyrna 3+4 equal 7 in 3 cores including the region of interest as well as the right anterior medial gland and [place] 3+3 equal 6 in 1 core at [...] been 10 years since his last colonoscopy. [facility] - Medical History Medical History: Medical History [...] DD/ 2 Signed By: <Electronically signed by Rsoy Pina MD> 04/27/22 132[address] [facility] Work Phone: 1(724) 492-768011-17-2022 Consult note Author Rosy Pina [facility] April 27, 2022 1:21pm Note Date/Time April 27, 2022 8:37am [facility] [place] [address] Rad Onc Consult Note - OP Signed Patient: Zach Chamorro MR#: [id number] : 1945 Acct:[id number] Age/Sex: 76 / M Type: REG RCR [...] findings. There is a single core of Smyrna 3+3+6 disease that was foundon the left. [...] as the right anterior medial gland and [place]myr[place] 3+3 equal 6 in 1 core at [...] been 10 years since his last colonoscopy. [facility] - Medical History Medical History: Medical History [...] normal limits Neuro: grossly intact Dictated By: Norleena Silvana, MD DD/ [id number] Signed By: <Electronically signed by Rosy iPna MD> 04/27/22 1321 [facility] Work Phone: 1(514) 213-953111-04-2022 Hospital Discharge instructions Patient Education 04/14/2022 11:00:48 [...] who: Are older than age 65. Are -Gabonese. Are obese. Have a family history of [...] cells. Follow these instructions at home: Take ifkm-ymc-pjvkpbo and prescription medicines only as told by [...] 05/28/2006 Document Revised: 05/10/2018 Document Reviewed: 02/05/2017 [employer] Patient Education 2019 [employer]. Follow Up Care 04/12/2022 09:44:29 With:MIKEY ARORA, Jermaine Cano, URL Address: [address] [place] [id number]- When: Unknown [facility] 10-18-2022 Hospital Discharge instructions Patient Education [...] for your post-operative appointment in 1-2 weeks [phone] or [phone] Follow Up Care 03/16/2022 13:18:55 With:Jermaine MANCIA Address: [facility] [address] [place] [phone]- Business (1) When:04/11/2022 12:14:30 [facility]07-15-2022 Hospital Discharge instructions Patient Education 12/23/2021 [...] urethra. Follow these instructions at home: Take azpk-gak-nmwvkrz and prescription medicines only as told by [...] 05/28/2006 Document Revised: 04/22/2019 Document Reviewed: 07/02/2017 [employer] Patient Education 2020 [employer]. Follow Up Care 12/17/2020 09:28:14 With:MIKEY ARORA, Jermaine Cano, URL Address: [address] [place] [address]- When:Within 1 Year(s) Comments:w/ PSA & KUB [facility] 05-17-2022 NoteHNO ID: [id number] Author: Haroldo Sebastian MD Service: ? Author [...] Haroldo Sebastian MD October 25, 2021 1:55 [facility]05-17-2022 History of Present illness Narrative* Haroldo [...] 25, 2021 1:55 PM [facility] Future Appointments Appointment Date:12/29/2022 08:00:00 AM Scheduled Provider:Jermaine MANCIA MD Location:[facility] Appointment Type:URO Office Visit Diagnostic Tests Pending * PSA Free & Total 10/09/22 [facility] evaluation + Plan note Future Appointments Appointment Date:04/14/2022 10:30:00 AM Scheduled Provider:Jermaine MANCIA MD Location:[facility] Appointment Type:URO Procedure 15 min Appointment Date:12/29/2022 08:00:00 AM Scheduled Provider:Jermaine MANCIA MD Location:[facility] Appointment Type:URO Office Visit Diagnostic Tests Pending * Prostate Histology ([facility]) [facility] Future Appointments Appointment Date:12/29/2022 08:00:00 AM Scheduled Provider:Jermaine MANCIA MD Location:[facility] Appointment Type:URO Office Visit [facility] evaluation + Plan note Future Appointments Appointment Date:06/30/2024 09:45:00 AM Scheduled Provider:Jermaine MANCIA MD Location:[facility] Appointment Type:URO Office Visit Diagnostic Tests Pending * PSA Total 05/11/24 [facility] evaluation note* Diagnosis Iris nevus, left- Primary Dislocation of intraocular lens, sequela documented [facility] this encounter [facility] Work Phone: evaluation note* Diagnosis Onset Date Resolution Status Prostate cancer acute [facility] Work Phone: evaluation note* Diagnosis Nummular eczema- Primary Contact dermatitis and other eczema, due to unspecified cause Seborrheic keratosis Melanocytic nevus of trunk Benign neoplasm of skin of trunk, except scrotum Lentigines Angioma of skin History of actinic keratoses Personal history of diseases of skin and subcutaneous tissue documented in this encounter [facility] HealthcareEvaluation [facility]* Diagnosis Onset Date Resolution Status Prostate cancer acute Prostate cancer acute [facility] Work Phone: Evaluation note* Diagnosis Type 2 diabetes mellitus with hyperglycemia, with long-term current use of insulin ([facility])- Primary Benign essential hypertension ([facility]) Essential hypertension, benign BPH without urinary obstruction Peptic ulcer disease Peptic ulcer, unspecified site, unspecified as acute or chronic, without mention of hemorrhage, perforation, or obstruction Seasonal allergic rhinitis due to pollen Chest pain at rest- Primary Unspecified chest pain Type 2 diabetes mellitus with hyperglycemia, with long-term current use of insulin ([facility]) Type 2 diabetes mellitus with hyperglycemia, with long-term current use of insulin ([facility])- Primary Benign essential hypertension ([facility]) Essential hypertension, benign Peptic ulcer disease Peptic ulcer, unspecified site, unspecified as acute or chronic, without mention of hemorrhage, perforation, or obstruction BPH without urinary obstruction Seasonal allergic rhinitis due to pollen Dermatophytosis of nail- Primary Dystrophic nail Other specified disease of nail Diabetic polyneuropathy associated with type 2 diabetes mellitus ([facility]) Encounter for long-term (current) use of insulin ([facility]) Encounter for long-term (current) use of insulin documented in this encounter [facility] HealthcareEvaluation note* Diagnosis Type 2 diabetes mellitus with hyperglycemia, with long-term current use of insulin ([facility])- Primary Benign essential hypertension ([facility]) Essential hypertension, benign BPH without urinary obstruction Peptic ulcer disease Peptic ulcer, unspecified site, unspecified as acute or chronic, without mention of hemorrhage, perforation, or obstruction Seasonal allergic rhinitis due to pollen Chest pain at rest- Primary Unspecified chest pain Type 2 diabetes mellitus with hyperglycemia, with long-term current use of insulin ([facility]) Type 2 diabetes mellitus with hyperglycemia, with long-term current use of insulin ([facility])- Primary Benign essential hypertension ([facility]) Essential hypertension, benign Peptic ulcer disease Peptic ulcer, unspecified site, unspecified as acute or chronic, without mention of hemorrhage, perforation, or obstruction BPH without urinary obstruction Seasonal allergic rhinitis due to pollen Diabetic polyneuropathy associated with type 2 diabetes mellitus ([facility])- Primary Encounter for long-term (current) use of insulin ([facility]) Encounter for long-term (current) use of insulin documented in this encounter [facility] HealthcareEvaluation note* Diagnosis Type 2 diabetes mellitus with hyperglycemia, with long-term current use of insulin ([facility])- Primary Benign essential hypertension ([facility]) Essential hypertension, benign BPH without urinary obstruction Peptic ulcer disease Peptic ulcer, unspecified site, unspecified as acute or chronic, without mention of hemorrhage, perforation, or obstruction Seasonal allergic rhinitis due to pollen Chest pain at rest- Primary Unspecified chest pain Type 2 diabetes mellitus with hyperglycemia, with long-term current use of insulin ([facility]) Type 2 diabetes mellitus with hyperglycemia, with long-term current use of insulin ([facility])- Primary Benign essential hypertension ([facility]) Essential hypertension, benign Peptic ulcer disease Peptic ulcer, unspecified site, unspecified as acute or chronic, without mention of hemorrhage, perforation, or obstruction BPH without urinary obstruction Seasonal allergic rhinitis due to pollen Diabetic polyneuropathy associated with type 2 diabetes mellitus ([facility])- Primary Encounter for long-term (current) use of insulin ([facility]) Encounter for long-term (current) use of insulin documented in this encounter [facility] HealthcareEvaluation note* Diagnosis Type 2 diabetes mellitus with hyperglycemia, with long-term current use of insulin ([facility])- Primary Benign essential hypertension ([facility]) Essential hypertension, benign BPH without urinary obstruction Peptic ulcer disease Peptic ulcer, unspecified site, unspecified as acute or chronic, without mention of hemorrhage, perforation, or obstruction Seasonal allergic rhinitis due to pollen Chest pain at rest- Primary Unspecified chest pain Type 2 diabetes mellitus with hyperglycemia, with long-term current use of insulin ([facility]) Type 2 diabetes mellitus with hyperglycemia, with long-term current use of insulin ([facility])- Primary Benign essential hypertension ([facility]) Essential hypertension, benign Peptic ulcer disease Peptic ulcer, unspecified site, unspecified as acute or chronic, without mention of hemorrhage, perforation, or obstruction BPH without urinary obstruction Seasonal allergic rhinitis due to pollen Type 2 diabetes mellitus with hyperglycemia, with long-term current use of insulin ([facility])- Primary documented in this encounter [facility] HealthcareEvaluation note* Diagnosis Type 2 diabetes mellitus with hyperglycemia, with long-term current use of insulin ([facility])- Primary Benign essential hypertension ([facility]) Essential hypertension, benign BPH without urinary obstruction Peptic ulcer disease Peptic ulcer, unspecified site, unspecified as acute or chronic, without mention of hemorrhage, perforation, or obstruction Seasonal allergic rhinitis due to pollen Chest pain at rest- Primary Unspecified chest pain Type 2 diabetes mellitus with hyperglycemia, with long-term current use of insulin ([facility]) Type 2 diabetes mellitus with hyperglycemia, with long-term current use of insulin ([facility])- Primary Benign essential hypertension ([facility]) Essential hypertension, benign Peptic ulcer disease Peptic ulcer, unspecified site, unspecified as acute or chronic, without mention of hemorrhage, perforation, or obstruction BPH without urinary obstruction Seasonal allergic rhinitis due to pollen 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 ([facility])- Primary Diabetic polyneuropathy associated with type 2 diabetes mellitus ([facility]) Swelling of left foot Encounter for long-term (current) use of insulin ([facility]) Encounter for long-term (current) use of insulin documented in this encounter [facility] HealthcareEvaluation note* Diagnosis Type 2 diabetes mellitus with hyperglycemia, with long-term current use of insulin ([facility])- Primary Benign essential hypertension ([facility]) Essential hypertension, benign BPH without urinary obstruction Peptic ulcer disease Peptic ulcer, unspecified site, unspecified as acute or chronic, without mention of hemorrhage, perforation, or obstruction Seasonal allergic rhinitis due to pollen Chest pain at rest- Primary Unspecified chest pain Type 2 diabetes mellitus with hyperglycemia, with long-term current use of insulin ([facility]) Type 2 diabetes mellitus with hyperglycemia, with long-term current use of insulin ([facility])- Primary Benign essential hypertension ([facility]) Essential hypertension, benign Peptic ulcer disease Peptic ulcer, unspecified site, unspecified as acute or chronic, without mention of hemorrhage, perforation, or obstruction BPH without urinary obstruction Seasonal allergic rhinitis due to pollen Acute non-recurrent maxillary sinusitis- Primary Type 2 diabetes mellitus with hyperglycemia, with long-term current use of insulin ([facility]) documented in this encounter [facility] HealthcareEvaluation note* Diagnosis Type 2 diabetes mellitus with hyperglycemia, with long-term current use of insulin ([facility])- Primary Benign essential hypertension ([facility]) Essential hypertension, benign BPH without urinary obstruction Peptic ulcer disease Peptic ulcer, unspecified site, unspecified as acute or chronic, without mention of hemorrhage, perforation, or obstruction Seasonal allergic rhinitis due to pollen Chest pain at rest- Primary Unspecified chest pain Type 2 diabetes mellitus with hyperglycemia, with long-term current use of insulin ([facility]) Type 2 diabetes mellitus with hyperglycemia, with long-term current use of insulin ([facility])- Primary Benign essential hypertension ([facility]) Essential hypertension, benign Peptic ulcer disease Peptic ulcer, unspecified site, unspecified as acute or chronic, without mention of hemorrhage, perforation, or obstruction BPH without urinary obstruction Seasonal allergic rhinitis due to pollen Acute non-recurrent maxillary sinusitis- Primary Type 2 diabetes mellitus with hyperglycemia, with long-term current use of insulin ([facility]) Dermatophytosis of nail- Primary Dystrophic nail Other specified disease of nail Diabetic polyneuropathy associated with type 2 diabetes mellitus ([facility]) 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 ([facility]) Encounter for long-term (current) use of insulin ([facility]) Encounter for long-term (current) use of insulin documented in this encounter [facility] HealthcareEvaluation note* Diagnosis Type 2 diabetes mellitus with hyperglycemia, with long-term current use of insulin ([facility])- Primary Benign essential hypertension ([facility]) Essential hypertension, benign BPH without urinary obstruction Peptic ulcer disease Peptic ulcer, unspecified site, unspecified as acute or chronic, without mention of hemorrhage, perforation, or obstruction Seasonal allergic rhinitis due to pollen Chest pain at rest- Primary Unspecified chest pain Type 2 diabetes mellitus with hyperglycemia, with long-term current use of insulin ([facility]) Type 2 diabetes mellitus with hyperglycemia, with long-term current use of insulin ([facility])- Primary Benign essential hypertension ([facility]) Essential hypertension, benign Peptic ulcer disease Peptic ulcer, unspecified site, unspecified as acute or chronic, without mention of hemorrhage, perforation, or obstruction BPH without urinary obstruction Seasonal allergic rhinitis due to pollen Acute non-recurrent maxillary sinusitis- Primary Type 2 diabetes mellitus with hyperglycemia, with long-term current use of insulin ([facility]) Melanocytic nevus of trunk- Primary Benign neoplasm of skin of trunk, except scrotum Seborrheic keratosis Lentigines Actinic keratosis Capillary angioma Nevus, non-neoplastic Melanocytic nevus of face, other location Epidermal inclusion cyst Sebaceous cyst Nummular eczema Contact dermatitis and other eczema, due to unspecified cause documented in this encounter [facility] HealthcareEvaluation note* Diagnosis Type 2 diabetes mellitus with hyperglycemia, with long-term current use of insulin ([facility])- Primary Benign essential hypertension ([facility]) Essential hypertension, benign BPH without urinary obstruction Peptic ulcer disease Peptic ulcer, unspecified site, unspecified as acute or chronic, without mention of hemorrhage, perforation, or obstruction Seasonal allergic rhinitis due to pollen Chest pain at rest- Primary Unspecified chest pain Type 2 diabetes mellitus with hyperglycemia, with long-term current use of insulin ([facility]) Type 2 diabetes mellitus with hyperglycemia, with long-term current use of insulin ([facility])- Primary Benign essential hypertension ([facility]) Essential hypertension, benign Peptic ulcer disease Peptic ulcer, unspecified site, unspecified as acute or chronic, without mention of hemorrhage, perforation, or obstruction BPH without urinary obstruction Seasonal allergic rhinitis due to pollen Acute non-recurrent maxillary sinusitis- Primary Type 2 diabetes mellitus with hyperglycemia, with long-term current use of insulin ([facility]) Medicare annual wellness visit, subsequent- Primary Nocturnal leg cramps Pruritus Unspecified pruritic disorder Type 2 diabetes mellitus with hyperglycemia, with long-term current use of insulin ([facility]) Benign essential hypertension ([facility]) Essential hypertension, benign Encounter for long-term current use of medication documented in this encounter [facility] note* Diagnosis Type 2 diabetes mellitus with hyperglycemia, with long-term current use of insulin ([facility])- Primary Benign essential hypertension ([facility]) Essential hypertension, benign BPH without urinary obstruction Peptic ulcer disease Peptic ulcer, unspecified site, unspecified as acute or chronic, without mention of hemorrhage, perforation, or obstruction Seasonal allergic rhinitis due to pollen Chest pain at rest- Primary Unspecified chest pain Type 2 diabetes mellitus with hyperglycemia, with long-term current use of insulin ([facility]) Type 2 diabetes mellitus with hyperglycemia, with long-term current use of insulin ([facility])- Primary Benign essential hypertension ([facility]) Essential hypertension, benign Peptic ulcer disease Peptic ulcer, unspecified site, unspecified as acute or chronic, without mention of hemorrhage, perforation, or obstruction BPH without urinary obstruction Seasonal allergic rhinitis due to pollen Acute non-recurrent maxillary sinusitis- Primary Type 2 diabetes mellitus with hyperglycemia, with long-term current use of insulin ([facility]) Medicare annual wellness visit, subsequent- Primary Nocturnal leg cramps Pruritus Unspecified pruritic disorder Type 2 diabetes mellitus with hyperglycemia, with long-term current use of insulin ([facility]) Benign essential hypertension ([facility]) Essential hypertension, benign Encounter for long-term current use of medication Hypomagnesemia- Primary Disorders of magnesium metabolism documented in this encounter [facility] HealthcareEvaluation [facility]* Diagnosis Type 2 diabetes mellitus with hyperglycemia, with long-term current use of insulin ([facility])- Primary Benign essential hypertension ([facility]) Essential hypertension, benign BPH without urinary obstruction Peptic ulcer disease Peptic ulcer, unspecified site, unspecified as acute or chronic, without mention of hemorrhage, perforation, or obstruction Seasonal allergic rhinitis due to pollen Chest pain at rest- Primary Unspecified chest pain Type 2 diabetes mellitus with hyperglycemia, with long-term current use of insulin ([facility]) Type 2 diabetes mellitus with hyperglycemia, with long-term current use of insulin ([facility])- Primary Benign essential hypertension ([facility]) Essential hypertension, benign Peptic ulcer disease Peptic ulcer, unspecified site, unspecified as acute or chronic, without mention of hemorrhage, perforation, or obstruction BPH without urinary obstruction Seasonal allergic rhinitis due to pollen Acute non-recurrent maxillary sinusitis- Primary Type 2 diabetes mellitus with hyperglycemia, with long-term current use of insulin ([facility]) Medicare annual wellness visit, subsequent- Primary Nocturnal leg cramps Pruritus Unspecified pruritic disorder Type 2 diabetes mellitus with hyperglycemia, with long-term current use of insulin ([facility]) Benign essential hypertension ([facility]) Essential hypertension, benign Encounter for long-term current use of medication Dermatophytosis of nail- Primary Dystrophic nail Other specified disease of nail Diabetic polyneuropathy associated with type 2 diabetes mellitus ([facility]) Encounter for long-term (current) use of insulin ([facility]) Encounter for long-term (current) use of insulin documented in this encounter [facility] HealthcareEvaluation note* Diagnosis Type 2 diabetes mellitus with hyperglycemia, with long-term current use of insulin ([facility])- Primary Benign essential hypertension ([facility]) Essential hypertension, benign BPH without urinary obstruction Peptic ulcer disease Peptic ulcer, unspecified site, unspecified as acute or chronic, without mention of hemorrhage, perforation, or obstruction Seasonal allergic rhinitis due to pollen Chest pain at rest- Primary Unspecified chest pain Type 2 diabetes mellitus with hyperglycemia, with long-term current use of insulin ([facility]) Type 2 diabetes mellitus with hyperglycemia, with [...] joint, upper arm documented in this encounter [facility] HealthcareEvaluation note* Diagnosis Onset Date Resolution Status Admit Date Prostate cancer acute November 04, 2024 9:41am Prostate cancer acute November 04, 2024 9:41am [facility] Work Phone: Evaluation note* Diagnosis Type 2 diabetes mellitus with hyperglycemia, with long-term current use of insulin ([facility])- Primary Benign essential hypertension Essential hypertension, benign BPH without urinary obstruction Peptic ulcer disease Peptic ulcer, unspecified site, unspecified as acute or chronic, without mention of hemorrhage, perforation, or obstruction Seasonal allergic rhinitis due to pollen Chest pain at rest- Primary Unspecified chest pain Type 2 diabetes mellitus with hyperglycemia, with long-term current use of insulin ([facility]) Type 2 diabetes mellitus with hyperglycemia, with long-term current use of insulin ([facility])- Primary Benign essential hypertension Essential hypertension, benign Peptic ulcer disease Peptic ulcer, unspecified site, unspecified as acute or chronic, without mention of hemorrhage, perforation, or obstruction BPH without urinary obstruction Seasonal allergic rhinitis due to pollen Acute non-recurrent maxillary sinusitis- Primary Type 2 diabetes mellitus with hyperglycemia, with long-term current use of insulin ([facility]) Medicare annual wellness visit, subsequent- Primary Nocturnal [...] Essential hypertension, benign documented in this encounter [facility] HealthcareEvaluation note* Diagnosis Type 2 diabetes mellitus [...] use of insulin documented in this encounter [facility] HealthcareHospital course Narrative No data available for this section [facility] progress note No data available for this section [facility] progress note Author Rosy Pina [facility] July 12, 2022 9:52am Note Date/Time July 12, 2022 9 :36am [facility] [place] [id number] Rad Onc Follow Up Note - OP Signed Patient: Zach Chamorro MR#: [id number] : 1945 Acct:[id number] Age/Sex: 76 / M Type: REG RCR Copies to: MD Jermaine Quintero MD~ Date of Service Service Date: 07/12/22 Assessment & Plan (1) Prostate cancer Plan: Return to clinic 2 months for first posttreatment PSA Assessment: 76-year-old male with 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, [place] 3+4equal 7 disease in 3 cores on [...] PI- RADS 4 MR fusion biopsy confirmed [place] 3+4 equal 7 in 3 cores including [...] signed by Rosy Pina MD> 07/12/22 0952 [facility] Work Phone: Progress note Author Rosa Davies [facility] December 13, 2022 10:35am Note Date/Time December 13, 2022 10:09 am [facility] [place] [address] Rad Onc Follow Up Note - OP Signed Patient: Zach Chamorro MR#: [id number] : 1945 Acct:[id number] Age/Sex: 77 / M Type: REG RCR Copies to: MD Jermaine Quintero MD~ Subjective - Service Date/Time Date: 12/13/22 Time: 10:09 - Diagnosis Adenocarcinoma the prostate, Tanna score 3+4= 7, intermediate risk with initial PSA of 5.69, stage T1cN0 M0 - Chief Complaint I am no urinary or bowel complaints - History of Present Illness 77-year-old male with 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 Multi parametric MRI is consistent with the biopsy findings. There was a singlecore of [place] 3+3+6 disease that was found on the [...] signed by Rosa Davies MD> 12/13/22 1035 [facility] Work Phone: Progress note Author Rosy Pina [facility] January 10, 2024 10:47am Note Date/Time January 10, 2024 10: 38am [facility] [place] [address] Cancer Center Note Signed Patient: Zach Chamorro MR#: [id number] : 1945 Acct:[id number] Age/Sex: 78 / M Type: REG AMB Date of Service: 01/10/24 Copies to: MD Jermaine Quintero MD~ Assessment & Plan (1) Prostate cancer: Plan: Return to clinic late Apr 2024 with PSA -will transition to 6-month follow-up [id number] as he will be 2 years out. 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 Patient [...] PI- RADS 4 MR fusion biopsy confirmed [place] 3+4 equal 7 in 3 cores including [...] No Known Allergies Allergy (Verified 09/18/23 10:05) [facility] Medical History Medical History (Updated 07/12/22 @ [...] 5 Source: Julius BARNEY, Josafat LOWERY Jr, O'David MP, et al, and the Measurement Committeeof the [employer] [employer]. The [place] [employer] symptom index for benign prostatic hyperplasia. J Urol. 1992; 148: 9099-2427. Copyright 1992 [place] [employer] IMER Score Over the past [...] 7 Dictated By: Rosy Pina MD DD/ 0918 Signed By: <Electronically signed by Rosy Pina MD> 01/10/24 1047 [facility] Work Phone: Progress note Author Tre Bertrand [facility] Note Date/Time November 04, 2024 10:07 am [place] [address] Cancer Center Note Signed Patient: Zach Chamorro MR#: [id number] : 1945 Acct:[id number] Age/Sex: 79 / M Type: DEP AMB Date of Service: 11/04/24 Copies to: Blake Ng MD~ Assessment & Plan A/P (1) Prostate cancer: Plan: Return to clinic with GLUE SPREADER Apr 2025 with next PSA Assessment: 78-year-old male with 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 Patient [...] prostate Patient Instructions: follow-up in 6mo with GLUE SPREADER PSA in 6mo CHEMO PLAN No Active [...] PI- RADS 4 MR fusion biopsy confirmed Smyr[place] 3+4 equal 7 in 3 cores including the region of interest as well as the right anterior medial gland and [place]my[place] 3+3 equal 6 in 1 core at [...] No Known Allergies Allergy (Verified 09/18/23 10:05) [facility] Medical History Medical History (Updated 07/12/22 @ [...] et al, and the Measurement Committeeof the [place] [employer]. The [place] [employer] symptom index for benign prostatic hyperplasia. J Urol. 1992; 148: 8278-2877. Copyright 1992 [employer] Over the past six months [...] By: <Electronically signed by MARIO Bertrand> 11/04/[address] [facility] Work Phone: Reason for referral (narrative) Referred by: Jermaine MANCIA MD [facility] reason for referral (narrative)No reason for referral [facility] Work Phone: Summary Purpose Family History [...] section and content) DATE CREATED AUTHOR 11/29/2017 [facility] DATE CREATED AUTHOR AUTHOR'S ORGANIZ ATION 11/09/[address] [facility] DATE CREATED AUTHOR AUTHOR'S ORGANIZ ATION 07/31/2022 [facility] DATE CREATED AUTHOR AUTHOR'S ORGANIZ ATION 01/07/2025 [facility] DATE CREATED AUTHOR AUTHOR'S ORGANIZ ATION 01/09/2025 [facility] DATE CREATED AUTHOR AUTHOR'S ORGANIZ ATION 01/23/2025 [facility] DATE CREATED AUTHOR AUTHOR'S ORGANIZ ATION 01/26/2025 [facility] DATE CREATED AUTHOR AUTHOR'S ORGANIZ ATION 01/31/2025 [facility] Source Comments (unrecognize d section and content) In the event this informatio n is protected by the Federal Confidentiality of Alcohol and Drug Abuse Patient Records regulations: The Federal rules restrict any use of the information to criminally investigate or prosecute any alcohol or drug abuse patient.[facility] Reason for Visit (unrecogniz ed section and content) Reason Comments OS Iris Nevus 10/26/2020 Reason Comments DM Foot Care Zach Chamorro is a 78 y.o. male who presents for DM Foot Care. BS: 113 A1C: 7.1/Lv Dr. Ng 01/28/2024/SS: 12 Reason Comments Shoe Measure Zach Chamorro is a 78 y.o. male who presents for DM Foot Care. BS: 113 A1C: 7.1/Lv Dr. 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 BS: 113 A1C: 7.1/Lv Dr. Ng [...] LV 01/28/24, A1C: 6.5, BS: 86, SS: 12 Reason Comments Cough Sinusitis Epistaxis (Nose Bleed) Reason Comments DM Foot Care PCP: Dr. Ng LV 06/30/24, A1C: 7.1 (01/2024), BS: 190 Reason [...] September 18, 2023 End: September 18, 2023 Plane Tender Relationship Specialty Start Date End Date Alejandro Davenport PCP - [facility] 10/02/13 Team Status: Inactive Member [...] Active Rosy Pina MD Referring Provider Active Plane Tender Relationship Specialty Start Date End Date Blake Ng MD PCP - [facility] 12/21/22 Plane Tender Relationship Specialty Start Date End Date Blake Ng MD [facility] - [facility] 12/21/22 Team Status: Active Member Role Status [...] January 25, 2024 End: January 25, 2024 Plane Tender Relationship Specialty Start Date End Date Blake Ng MD [address] [place] [address] PCP - General Family Medicine 07/24/23 Plane Tender Relationship Specialty Start Date End Date Blake Ng MD [address] [place] [address] PCP - General Family Medicine 07/24/23 Plane Tender Relationship Specialty Start Date End Date Blake Ng MD [address] [place] [address] PCP - General Family Medicine 07/24/23 Plane Tender Relationship Specialty Start Date End Date Blake Ng MD [address] [place] [address] PCP - General Family Medicine 07/24/23 Plane Tender Relationship Specialty Start Date End Date Blake Ng MD [address] [place] [address] PCP - General Family Medicine 07/24/23 Plane Tender Relationship Specialty Start Date End Date Blake Ng MD [address] [place] [address] PCP - General Family Medicine 07/24/23 Plane Tender Relationship Specialty Start Date End Date Blake Ng MD [address] [place] [address] PCP - General Family Medicine 07/24/23 Plane Tender Relationship Specialty Start Date End Date Blake Ng MD [address] [place] [address] PCP - General Family Medicine 07/24/23 Plane Tender Relationship Specialty Start Date End Date Blake Ng MD [address] [place] [address] PCP - General Family Medicine 07/24/23 Plane Tender Relationship Specialty Start Date End Date Blake Ng MD [address] [place] [address] PCP - General Family Medicine 07/24/23 Blake Ng MD [address] [place] [address] PCP - [facility] 07/18/24 Plane Tender Relationship Specialty Start Date End Date Blake Ng MD [address] [place] [address] PCP - General Family Medicine 07/24/23 Blake Ng MD [address] [place] [address] PCP - [facility] 07/18/24 Plane Tender Relationship Specialty Start Date End Date Blake Ng MD [address] [place] [address] PCP - General Family Medicine 07/24/23 Blake Ng MD [address] [place] [address] PCP - [facility]CO Reach 07/18/24 Plane Tender Relationship Specialty Start Date End Date Blake Ng MD [address] [place] [address] PCP - General Family Medicine 07/24/23 Blake Ng MD [address] [place] [address] PCP - ACO Reach 07/18/24 Plane Tender Relationship Specialty Start Date End Date Blake Ng MD [address] [place] [address] PCP - General Family Medicine 07/24/23 Blake Ng MD [address] [place] [address] PCP - [facility] Re[facility] 07/18/24 Team Status: Inactive Member Role Status Dates Blake Ng MD Primary Care Provide r, Attending Provider Active Start: August 06, 2024 End: August 06, 2024 Plane Tender Relationship Specialty Start Date End Date Blake Ng MD [address] [place] [address] PCP - General Family Medicine 07/24/23 Blake Ng MD [address] [place] [address] PCP - ACO Reach 07/18/24 Plane Tender Relationship Specialty Start Date End Date Blake Ng MD [address] [place] [address] PCP - General Family Medicine 07/24/23 Blake Ng MD [address] [place] [address] PCP - ACO Reach 07/18/24 Plane Tender Relationship Specialty Start Date End Date Blake Ng MD [address] [place] [address] PCP - General [facility] Medicine 07/24/23 Blake Ng MD [address] [place] [address] PCP - O Reach 07/18/24 Plane Tender Relationship Specialty Start Date End Date Blake Ng MD [address] [place] [address] PCP - General [facility] Medicine 07/24/23 Blake Ng MD [address] [place] [address] PCP - O Reach 07/18/24 Team Status: Inactive Member Role [...] December 24, 2024 End: December 24, 2024 Plane Tender Relationship Specialty Start Date End Date Blake Ng MD [address] [place] [address] PCP - General Family Medicine 07/24/23 Blake Ng MD [address] [place] [address] PCP - ACO Reach 07/18/24 Plane Tender Relationship Specialty Start Date End Date Blake Ng MD [address] [place] [address] PCP - General Family Medicine 07/24/23 Blake Ng MD [address] [place] [address] PCP - ACO Reach 07/18/24 Plane Tender Relationship Specialty Start Date End Date Blake Ng MD [address] [place] [address] PCP - General Family Medicine 07/24/23 Blake Ng MD [address] [place] [address] PCP - ACO Reach 07/18/24 Plane Tender Relationship Specialty Start Date End Date Blake Ng MD [address] [place] [address] PCP - General Family Medicine 07/24/23 Blake Ng MD [address] [place] [address] PCP - O Reach 07/18/24 Plane Tender Relationship Specialty Start Date End Date Blake Ng MD [address] [place] [address] PCP - General Family [facility] 07/24/23 Blake Ng MD [address] [place] [address] [facility] 07/18/24 Plane Tender Relationship Specialty Start Date End Date Blake Ng MD [address] [place] [address] PCP [facility] 07/24/23 Blake Ng MD [address] [place] [address] [facility] 07/18/24 Goals (unrecognized section and content) [...] BE BASED ON THE PRIMARY CLINICAL RECORDS. [facility]. provides no warranty or guarantee of the accuracy or completeness of information in this document.
--- OUTSIDE RECORDS SUMMARY | 2025-01-31 08:24 | XMS_ITS | Encounter Summary ---
Author Organization [facility] Address [address] [place] [address] [place] [address] Care Team Providers Care Telecommunications Field Engineer Name Role Phone Blake Larson MD Primary Care Provider [phone] Blake Larson MD Unavailable Encounter Details Date Type Department Care Team (Late st Contact Info) Description 01/30/2025 Clinisync Result Encounter [facility] External Department Unsolicited [...] often do you attend chur ch or yarsanism services? Patient declined 01/22/2024 Do you belong to any clubs o r organizations such as sabianism groups, unions, fraternal [...] Patient Health Questionnaire-2 Score 0 08/05/2024 [facility] - [...] any time in the past 12 m [facility], were you homeless or living in [...] Office Visit [facility] [address] [place] [address] Blake Larson MD [address] [place] [address] 04/28/2025 9:15 AM EST Procedure Visit [facility] [address] [address] Errol Powell DPM [address] [place] [address] 08/04/2025 10:20 AM EST Office Visit [facility] [address] [place] [address] Sophia Mcmahon MD [address] [place] [address] documented as of this encounter Procedures Procedure Name Priority Date/Time Associated Diagnosis Comments CA ECHO DOPPLER COMPLETE 01/30/2025 1:40 PM EDT documented in this encounter Results * CA ECHO DOPPLER COMPLETE (01/30/2025 1:40 PM EDT) Anatomical Region Laterality Modality Other 01/30/2025 1:40 PM EDT Narrative 01/30/2025 1:41 PM EDT The [address] [address] Cardiology Report Signed Patient: FABIAN CHAMORRO MR#: [id number] : 1945 Acct:[id number] Age/Sex: 79 / M ADM Date: 01/30/25 Loc: CARD Attending Dr: CASSANDRA JOSE Ordering Physician: CASSANDRA JOSE Date of Service: 01/30/25 Procedure(s): CA echo doppler complete Accession Number(s): [id number] cc: CASSANDRA JOSE; Blake Larson M.D. Patient Name: FABIAN CHAMORRO MR#: [id number] : 1945 Exam Date: 01/30/2025 Ordering Doctor: [...] Signed By: 01/30/25 1341 DD/ 1340 TD/TT: Engineering Team Supervisor: Procedure Note Radiology, Radiologist, MD - 01/30/2025 [place] [address] Cardiology Report Signed Patient: FABIAN CHAMORRO DMR#: [id number] : 1945cct:[id number] Age/Sex: 79 / MADM Date: 01/30/25 Loc: CARD Attending Dr: CASSANDRA JOSE Ordering Physician: CASSANDRA JOSE Date of Service: 01/30/25 Procedure(s): CA echo doppler complete Accession Number(s): [id number] cc: CASSANDRA JOSE; Blake Larson M.D. Patient Name: FABIAN CHAMORRO MR#: [id number] : 1945 Exam Date: 01/30/2025 Ordering Doctor: DR CASSANDRA JOSE M.D. ECHOCARDIOGRAM REPORT PROCEDURE: CA ECHO DOPPLER COMPLETE INDICATIONS: Abnormal stress test, Chest pain, Murmur COMPARISON: None. DESCRIPTION: COMPLETE ECHOCARDIOGRAM Real-time transthoracic echocardiography with 2D, M-mode, spectral and color flow Dopplerperformed. QUALITY: Technical quality was good. LEFT VENTRICLE: Normal chamber size. Severe concentric leftventricular hypertrophy. LV EF: Global left ventricular systolic function is hyperdynamic;visually estimated ejection fraction is 65 to 70%. Calculated left ventricularejection fraction is 68%. No significant wall motion abnormalities. DIASTOLIC: Diastolic function is indeterminate. ATRIAL SEPTUM: Inadequately seen. LEFT ATRIUM: Normal chamber size. RIGHT ATRIUM: Mild dilatation. RIGHT VENTRICLE: Normal chamber size. Normal right ventricularsystolic function. TRICUSPID VALVE: Normal mobility and thickness. No stenosis with mild regurgitation. Mild pulmonary hypertension. RVSP 38mmHg. MITRAL VALVE: Moderately thickened with decreased mobility. Severemitral annular calcification. No mitral regurgitation. MVA 2.3cm2, peak/mean gradients 7/3mmHg. Gradients are likely elevated due to hyperdynamicstate +/- volume overload. AORTIC VALVE: The aortic valve is probably trileaflet. Moderately calcified aortic valve with diminished mobility. Doppler velocitysuggests mild to moderate aortic valve stenosis. DVI 0.5, SHANNON 1.2cm2, Vmax 3.1m/s. Velocities and gradients may be overestimated due to hyperdynamic left ventricular systolic function. Mild aortic regurgitation. AORTIC ROOT: Mildly dilated. Measuring 4.0cm. The ascending aortameasures 3.7cm. PULMONIC VALVE: Normal thickness and mobility. [...] 13:40 Dictated By: Argelia Gonsales M.D. Signed By:01/30/25 1341 DD/ 1340 TD/TT: Engineering Team Supervisor: Generic External Data Provider [facility] Final Result documented in this encounter Visit Diagnoses Not on filedocumented in this encounter Additional Health Concerns Assessment Noted Time PHQ-9 Depression Total Score: 2 08/05/19 25 10:00 AM EST documented as of this encounter Care Teams Telecommunications Field Engineer Relationship Specialty Start Date End Date Blake Larson MD [address] [place] [address] PCP - General Family Medicine 07/24/23 Blake Larson MD [address] [place] [address] PCP - ACO Reach 07/18/24 documented as of this encounter
--- OUTSIDE RECORDS SUMMARY | 2025-01-31 08:24 | XMS_ITS | Encounter Summary ---
Author Organization [facility] Address [address] [place] [address] Care Team Providers Care Clinical Admissions Manager Name Role Phone Blake Larson MD Primary Care Provider [phone] Blake Larson MD Unavailable Reason for Visit * Reason Comments Med Refill Encounter Details Date Type Department Care Team (Late st Contact Info) Description 09/11/2024 [facility] [address] [address] Blake Larson MD [address] [place] [address] Type 2 diabetes mellitus with hyperglycemia, with [...] often do you attend chur ch or yazdanism services? Patient declined 01/22/2024 Do you belong to any clubs o r organizations such as presybeterian groups, unions, fraternal or athletic groups, or [...] Recorded Patient Health Questionnaire-2 Score 0 08/05/2024 [facility] - Occupational Stress Questionnaire Answer Date Recorded [...] any time in the past 12 m [facility], were you homeless or living in a retirement (including now)? No 01/22/2024 Sex and Gender Information Value Date Recorded Sex Assigned at Not on file Legal Sex Male 6:53 PM EDT Gender Identity Not on file Sexual Orientation Not on file documented as of this encounter Miscellaneous Notes * Telephone Encounter - ANNI CARPIO - 09/11/2024 11:49 AM EDT MEDICATION SENT TO [facility] documented in this encounter Plan of Treatment Upcoming Encounters Date Type Department Care Team (Late st Contact Info) Description 02/03/2025 10:30 AM EDT Office Visit [facility] [address] [place] [address] Blake Larson MD [address] [place] [address] 04/28/2025 9:15 AM EST Procedure Visit [facility] [address] [place] [address] Errol Powell DPM [address] [place] [id number] 08/04/2025 10:20 AM EST Office Visit [facility] [address] [place] [address] Sophia Mcmahon MD [address] [place] [address] documented as of this encounter Visit Diagnoses Diagnosis Type 2 diabetes mellitus with hyperglycemia, with long-term current use of insulin (HCC) documented in this encounter Additional Health Concerns Assessment Noted Time PHQ-9 Depression Total Score: 2 08/05/19 25 10:00 AM EST documented as of this encounter Care Teams Clinical Admissions Manager Relationship Specialty Start Date End Date Blake Larson MD [address] [place] [address] PCP - General Family Medicine 07/24/23 Blake Larson MD [address] [place] [address] PCP - ACO Reach 07/18/24 documented as of this encounter
--- OUTSIDE RECORDS SUMMARY | 2025-01-31 08:24 | XMS_ITS | Encounter Summary ---
Author Organization [facility] Address [address] [place] [address] Care Team Providers Care Systems Specialist Name Role Phone Blake Larson MD Primary Care Provider [phone] Blake Larson MD Unavailable Encounter Details Date Type Department Care Team (Late st Contact Info) Description 01/20/2025 Telephone [facility] [address] [place] [address] Blake Larson MD [address] [place] [address] Social History Tobacco Use Types Packs/Day Years [...] How often do you attend [facility] or tenriism services? Patient declined 01/22/2024 Do you belong [...] Recorded Patient Health Questionnaire-2 Score 0 08/05/2024 [facility] Occupat ional [facility] - Occupational Stress Questionnaire Answer Date [...] any time in the past 12 m [facility], were you homeless or living in a long-term (including now)? No 01/22/2024 Sex and Gender Information Value Date Recorded Sex Assigned at Not on file Legal Sex Male 6:53 PM EDT Gender Identity Not on file Sexual Orientation Not on file documented as of this encounter Miscellaneous Notes * Telephone Encounter - Blake Larson MD - 01/20/2025 4:35 PM EDT Lab order in chart, please fax. * Telephone Encounter - ANNI CARPIO - 01/20/2025 2:07 PM EDT Patient requested labs prior to appointment, and would like it to include an A1c.clm documented in this encounter Plan of Treatment Upcoming Encounters Date Type Department Care Team (Late st Contact Info) Description 02/03/2025 10:30 AM EDT Office Visit [facility] [address] [place] [address] Blake Larson MD [address] [place] [address] 04/28/2025 9:15 AM EST Procedure Visit [facility] [address] [place] [address] Errol Powell DPM [address] [place], [place] [address] 08/04/2025 10:20 AM EST Office Visit [facility] [place] [facility] [address] [place] [address] Sophia Mcmahon MD [address] [place] [address] Scheduled Orders Name Type Priority Associated Diagnoses Orde r Schedule Hemoglobin A1c Lab Routine Type 2 diabetes mellitus with hyperglycemia, with long-term current use of insulin (HCC) Expected: 01/20/2025 (Approximate), Expires: 01/20/2026 Basic metabolic panel Lab Routine Encounter for long-term current use of medication Expected: 01/20/2025 (Approximate), Expires: 01/20/2026 CBC and differential Lab Routine Encounter for long-term current use of medication Expected: 01/20/2025 (Approximate), Expires: 01/20/2026 Hepatic function panel Lab Routine Encounter for long-term current use of medication Expected: 01/20/2025 (Approximate), Expires: 01/20/2026 Lipid panel Lab Routine Dyslipidemia Expected: 01/20/2025 (Approximate), Expires: 01/20/2026 Magnesium Lab Routine Encounter for long-term current use of medication Expected: 01/20/2025 (Approximate), Expires: 01/20/2026 documented as of this encounter Visit Diagnoses Diagnosis Dyslipidemia- Primary Other and unspecified hyperlipidemia Type 2 diabetes mellitus with hyperglycemia, with long-term current use of insulin (HCC) Encounter for long-term current use of medication documented in this encounter Additional Health Concerns Assessment Noted Time PHQ-9 Depression Total Score: 2 08/05/19 10:00 AM EST documented as of this encounter Care Teams Systems Specialist Relationship Specialty Start Date End Date Blake Larson MD [address] [place] [phone] PCP - General Family Medicine 07/24/23 Blake Larson MD [address] [place] [address] PCP - ACO Reach 07/18/24 documented as of this encounter
--- OUTSIDE RECORDS SUMMARY | 2025-01-31 08:24 | XMS_ITS | Encounter Summary ---
Author Organization [facility] Address [address] [place] [address] Care Team Providers Care Airways Control Specialist Name Role Phone Blake Larson MD Primary Care Provider [phone] Blake Larson MD Unavailable Encounter Details Date Type Department Care Team (Late st Contact Info) Description 01/26/2025 Bamboo flowsheet [facility] [address] [place] [phone] Errol Powell DPHeladio [address] [place], [place] [address] Social History Tobacco Use Types Packs/Day Years [...] week 01/22/2024 How often do you attend [facility] or restorationism services? Patient declined 01/22/2024 Do you belong to any clubs o r organizations such as zoroastrian groups, unions, fraternal or athletic groups, or [...] Recorded Patient Health Questionnaire-2 Score 0 08/05/2024 [facility] of Occupat ional Health - Occupational [...] were you homeless or living in a chcf (including now)? No 01/22/2024 Sex and Gender [...] Office Visit [facility] [address] [place] [address] Blake Larson MD [address] [place] [address] 04/28/2025 9:15 AM EST Procedure Visit [facility] [address] [place] [phone] Errol Powell DPHeladio [address] [place] [address] 08/04/2025 10:20 AM EST Office Visit [facility] [address] [place] [address] Sophia Mcmahon MD [address] [place] [address] documented as of this encounter Visit Diagnoses Not on filedocumented in this encounter Additional Health Concerns Assessment Noted Time PHQ-9 Depression Total Score: 2 08/05/19 25 10:00 AM EST documented as of this encounter Care Teams Airways Control Specialist Relationship Specialty Start Date End Date Blake Larson MD [address] [place] [address] PCP - General Family Medicine 07/24/23 Blake Larson MD [address] [place] [address] PCP - ACO Reach 07/18/24 documented as of this encounter
--- OUTSIDE RECORDS SUMMARY | 2025-01-31 08:24 | XMS_ITS | Encounter Summary ---
Author Organization [facility] Address [address] [place] [address] Care Team Providers Care Sheet Metal Work Furnace Installer Name Role Phone Blake Larson MD Primary Care Provider [phone] Blake Larson MD Unavailable Encounter Details Date Type Department Care Team (Late st Contact Info) Description 04/21/2024 Abstract [facility] [address] [place] [phone] Errol Powell DPHeladio [address] [place], [place] [phone] Social History Tobacco Use Types Packs/Day Years [...] week 01/22/2024 How often do you attend [facility] or caodaism services? Patient declined 01/22/2024 Do you belong to any clubs o r organizations such as taoist groups, unions, fraternal or athletic groups, or [...] and heating? Not hard at all 01/22/2024 [facility] of Occupat ional Health - Occupational [...] any time in the past 12 m [facility], were you homeless or living [...] Office Visit [facility] [address] [place] [address] Blake Larson MD [address] [place] [address] 04/28/2025 9:15 AM EST Procedure Visit [facility] [address] [facility] [place] [address] Errol Powell DPM [address] [place] [address] 08/04/2025 10:20 AM EST Office Visit [facility] [place] [facility] [address] [place] [address] Sophia Mcmahon MD [address] [place] [address] documented as of this encounter Visit Diagnoses Not on filedocumented in this encounter Care Teams Sheet Metal Work Furnace Installer Relationship Specialty Start Date End Date Blake Larson MD [address] [place] [address] PCP - General Family Medicine 07/24/23 Blake Larson MD [address] [place] [address] PCP - ACO Reach 07/18/24 documented as of this encounter
--- OUTSIDE RECORDS SUMMARY | 2025-01-31 08:24 | XMS_ITS | Encounter Summary ---
Author Organization [facility] Address [address] [facility] [facility] [place] [address] Care Team Providers Care Rebeamer Name Role Phone Blake Larson MD Primary Care Provider [phone] Blake Larson MD Unavailable Reason for Referral * Consultation (Routine) - Authorized Specialty Diagnoses / Procedures Referred By Flavia crowe Referred To Contact Cardiology Diagnoses Other chest pain Abnormal EKG Abnormal stress test Procedures MA OFFICE/OUTPATIENT NEW HIGH MDM 60 MINUTES Blake Larson MD [address] [place] [address] Phone: tel: fax: Argelia Gonsales MD [address] [place] [address] Phone: tel: fax: Referral ID Status Reason Start Date Expiration Date Visits Requested Visits Authorized [id number] Authorized Specialty Services Required 01/12/2025 07/11/2025 1 1 Encounter Details Date Type Department Care Team (Late st Contact Info) Description 01/12/2025 Results Follow-Up [facility] [address] [place] [address] Blake Larson MD [address] [place] [address] Stress test with myocardial perfusion Social History Tobacco Use Types Packs/Day Years [...] How often do you attend chur or orthodoxy services? Patient declined 01/22/2024 Do you belong [...] Recorded Patient Health Questionnaire-2 Score 0 08/05/2024 [facility] of Occupat ional Health - Occupational Stress [...] any time in the past 12 m [facility], were you homeless or living in a mcfp (including now)? No 01/22/2024 Sex and Gender [...] Visit [facility] [address] [place] [address] Blake Larson MD [address] [place] [address] 04/28/2025 9:15 AM EST Procedure Visit [facility] [address] [place] [address] Errol Powell, DPM [address] [place], [place] [address] 08/04/2025 10:20 AM EST Office Visit [facility] [address] [place] [address] Sophia Mcmahon MD [address] [place] [address] Scheduled Referrals Name Type Priority Associated Diagnoses Order Schedule Ambulatory referral to Cardiology Outpatient Referral Routine Other chest pain Abnormal EKG Abnormal stress test Expected: 01/12/2025 (Approximate), Expires: 07/15/2025 documented as of this encounter Visit Diagnoses Diagnosis Other chest pain- Primary Abnormal EKG Nonspecific abnormal electrocardiogram (ECG) (EKG) Abnormal stress test Other nonspecific abnormal cardiovascular system function study documented in this encounter Additional Health Concerns Assessment Noted Time PHQ-9 Depression Total Score: 2 08/05/19 10:00 AM EST documented as of this encounter Care Teams Rebeamer Relationship Specialty Start Date End Date Blake Larson MD [address] [place] [address] PCP - General Family Medicine 07/24/23 Blake Larson MD [address] [place] [address] PCP - ACO Reach 07/18/24 documented as of this encounter
--- OUTSIDE RECORDS SUMMARY | 2025-01-31 08:24 | XMS_ITS | Encounter Summary ---
Author Organization [facility] Address [address] [place] [address] Care Team Providers Care Batch Or Continuous Still Operator Name Role Phone Blake Larson MD Primary Care Provider [phone] Blake Larson MD Unavailable Reason for Visit * Reason Onset Date Comments Med Refill 01/22/2025 Encounter Details Date Type Department Care Team (Late st Contact Info) Description 01/22/2025 [facility]phone [facility] [address] [place] [address] Blake Larson MD [address] [place] [address] Med Refill Social History Tobacco Use Types Packs/Day Years [...] How often do you attend chur or mormon services? Patient declined 01/22/2024 Do [...] Recorded Patient Health Questionnaire-2 Score 0 08/05/2024 [facility] of Occupat ional Health [...] medical appointments or from getting medications? No 08/1 08/2023 In the past 12 months, has l [...] were you homeless or living in a jail (including now)? No 01/22/2024 Sex and Gender Information Value Date Recorded Sex Assigned at Not on file Legal Sex Male 6:53 PM EDT Gender Identity Not on file Sexual Orientation Not on file documented as of this encounter Miscellaneous Notes * Telephone Encounter - Blake Larson MD - 01/22/2025 5:01 PM EDT Sent * Telephone Encounter - ANNI ACRPIO - 01/22/2025 4:14 PM EDT Patients normal injectable lantus is out of stock, and patient is requesting an order for lantus pens to be called into [facility] documented in this encounter Plan of Treatment Upcoming Encounters Date Type Department Care Team (Late st Contact Info) Description 02/03/2025 10:30 AM EDT Office Visit [facility] [address] [place] [address] Blake Larson MD [address] [place] [address] 04/28/2025 9:15 AM EST Procedure Visit [facility] [address] [place] [address] Errol Powell DPM [address] [place] [address] 08/04/2025 10:20 AM EST Office Visit [facility] [address] [place] [address] Sophia Mcmahon MD [address] [place] [address] documented as of this encounter Visit Diagnoses Diagnosis Type 2 diabetes mellitus with hyperglycemia, with long-term current use of insulin (HCC)- Primary documented in this encounter Additional Health Concerns Assessment Noted Time PHQ-9 Depression Total Score: 2 08/05/19 10:00 AM EST documented as of this encounter Care Teams Batch Or Continuous Still Operator Relationship Specialty Start Date End Date Blake Larson MD [address] [place] [address] PCP - General Family Medicine 07/24/23 Blake Larson MD [address] [place] [address] PCP - ACO Reach 07/18/24 documented as of this encounter
--- OUTSIDE RECORDS SUMMARY | 2025-01-31 08:25 | XMS_ITS | Encounter Summary ---
Author Organization [facility] Address [address] [place] [address] Care Team Providers Care Division Commander Name Role Phone Blake Larson MD Primary Care Provider [phone] Blake Larosn MD Primary Care Provider [phone] Blake Larson MD Unavailable Encounter Details Date Type Department Care Team (Late st Contact Info) Description 12/24/2022 Abstract [facility] [address] [facility] [place] [address] Errol Powell DPM [address] [place], [place] [phone] Social History Tobacco Use Types Packs/Day Years [...] 02/03/2025 10:30 AM EDT [facility] [address] [place] [address] Blake Larson MD [address] [place] [address] 04/28/2025 9:15 AM EST Procedure Visit [facility] [address] [place] [address] Errol Powell, DPM [address] [place] [address] 08/04/2025 10:20 AM EST Office Visit [facility] [address] [place] [address] Sophia Mcmahon MD [address] [place] [address] documented as of this encounter Visit Diagnoses Not on filedocumented in this encounter Care Teams Division Commander Relationship Specialty Start Date End Date Blake Larson MD PCP - General Family Medicine 12/21/22 07/23/23 Blake Larson MD [address] [place] [address] PCP - General Family Medicine 07/24/23 Blake Larosn MD [address] [place] [address] PCP - ACO Reach 07/18/24 documented as of this encounter
--- OUTSIDE RECORDS SUMMARY | 2025-01-31 08:25 | XMS_ITS | Clinical Summary ---
Author Organization [email or web address] tem Address [id number] [address] [place] [address] Care Team Providers Care Auto Fleet Maintenance Manager Name Role Phone Blake Larson MD Primary Care Provider [phone] Allergies No known active allergies Medications metFORMIN [...] Medical Devices Not on file Insurance MEDICARE [facility] Advance Directives * Full Code (Latest Code Status on File) Date Activated Date Inactivated Comments 08/29/2017 3:43 PM 08/30/2017 7:25 PM Care Teams Auto Fleet Maintenance Manager Relationship Specialty Start Date End Date Blake Larson MD PCP - General Family Medicine 08/29/17
--- OUTSIDE RECORDS SUMMARY | 2025-01-31 08:25 | XMS_ITS | Encounter Summary ---
Author Organization [facility] Address [address] [place] [address] Care Team Providers Care Locum Tenens Psychiatrist Name Role Phone Blake Larson MD Primary Care Provider [phone] Blake Larson MD Unavailable Encounter Details Date Type Department Care Team (Latest Contact Info) Description 01/23/2025 Travel Social History Tobacco Use Types Packs/Day [...] any clubs o r organizations such as voodoo groups, unions, fraternal or athletic groups, or [...] were you homeless or living in a skilled nursing (including now)? No 01/22/2024 Sex and Gender [...] [facility] [address] [address] Blake Larson MD [address] [place] [address] 04/28/2025 9:15 AM EST Procedure Visit [facility] [address] [place] [address] Errol Powell DPM [address] [place] [address] 08/04/2025 10:20 AM EST Office Visit [facility] [address] [place] [address] Sophia Mcmahon MD [address] [place] [address] documented as of this encounter Visit Diagnoses Not on filedocumented in this encounter Additional Health Concerns Assessment Noted Time PHQ-9 Depression Total Score: 2 08/05/19 25 10:00 AM EST documented as of this encounter Care Teams Locum Tenens Psychiatrist Relationship Specialty Start Date End Date Blake Larson MD [address] [place] [address] PCP - General Family Medicine 07/24/23 Blake Larson MD [address] [place] [address] PCP - ACO Reach 07/18/24 documented as of this encounter
--- OUTSIDE RECORDS SUMMARY | 2025-01-31 08:25 | XMS_ITS | Encounter Summary ---
Author Organization [facility] Address [address] [place] [address] Care Team Providers Care Double Head Machine Operator Name Role Phone Blake Larson MD Primary Care Provider [phone] Encounter Details Date Type Department Care Team (Late st Contact Info) Description 01/19/2025 Telephone [facility] [address] [place] [address] Angelica Henson MA Social History Tobacco Use Types Packs/Day Years [...] PM EDT documented as of this encounter Plan of Treatment Upcoming Encounters Date Type Department Care Team (Late st Contact Info) Description 03/06/2025 10:30 AM EDT Hospital Encounter [facility] Vascular Lab [address] [place] [address] Mike Boucher MD [address] [facility] [place] [address] Cardiovascular stress test abnormal; Preop cardiovascular exam; Other chest pain 03/06/2025 10:30 AM EDT - 03/06/2025 11:30 AM EDT Surgery [facility] Vascular Lab [address] [place] [address] Mike Boucher MD [address] [facility] [address] [facility] [place] [address] Coronary angiography documented as of this encounter Visit Diagnoses Not on filedocumented in this encounter Care Teams Double Head Machine Operator Relationship Specialty Start Date End Date Blake Larson MD [address] [place] [address] PCP - General Family Medicine 01/14/25 documented as of this encounter
--- OUTSIDE RECORDS SUMMARY | 2025-01-31 08:25 | XMS_ITS | Encounter Summary ---
Author Organization [facility] Address [address] [place] [address] Care Team Providers Care Mural Artist Name Role Phone Blake Larson MD Primary Care Provider [phone] Blake Larson MD Unavailable Encounter Details Date Type Department Care Team (Late Contact Info) Description 08/22/2023 External Result Encounter [facility] External Department Unsolicited Blake Larson MD [address] [place] [address] Social History Tobacco Use Types Packs/Day Years [...] Department Care Team (Late Contact Info) Description 02/03/2025 10:30 AM EDT [facility] [address] [place] [place] [address] Blake Larson MD [address] [place] [address] 04/28/2025 9:15 AM EST Procedure Visit [facility] [address] [facility] [place] [address] Errol Powell DPHeladio [address] [place] [address] 08/04/2025 10:20 AM EST Office Visit [facility] [address] [place] [address] Sophia Mcmahon MD [address] [place] [address] documented as of this encounter Procedures Procedure Name Priority Date/Time Associated Diagnosis Comments STRESS TEST ONLY, REGADENOSON 08/22/2023 5:29 PM EDT documented in this encounter Results * Stress test only, Regadenoson (08/22/2023 5:29 PM EDT) Anatomical Region Laterality Modality Other 08/22/2023 5:29 PM EDT Narrative 08/24/2023 1:10 PM EDT [facility] Main [address] [address] Cardiac Stress Test Signed Patient: Fabian Chamorro MR#: [id number] : 1945 Acct:[id number] Age/Sex: 78 / M ADM Date: 08/22/23 Loc: Room: Type: [facility] Attending Dr: Blake Larson MD Copies [...] Giancarlo Hu MD - 08/24/2023 [facility] [place] [address] Cardiac Stress Test Signed Patient: Fabian Chamorro DMR#: [id number] : 6Acct:[id number] Age/Sex: 78 / MADM Date: 08/22/23 Loc: Room:Type: [facility] Attending Dr: Blake Larson MD Copies [...] on filedocumented in this encounter Care Teams Mural Artist Relationship Specialty Start Date End Date Blake Larson MD [address] [place] [address] PCP - General Family Medicine 07/24/23 Blake Larson MD [address] [place] [place] [address] PCP - ACO Reach 07/18/24 documented as of this encounter
--- OUTSIDE RECORDS SUMMARY | 2025-01-31 08:25 | XMS_ITS | Encounter Summary ---
Author Organization [facility] Address [address] [place] [address] Care Team Providers Care Entry Specialist Name Role Phone Blake Larson MD Primary Care Provider [phone] Encounter Details Date Type Department Care Team (Late st Contact Info) Description 01/14/2025 Orders Only [facility] [address] [place] [address] ProviderSuly MD [address] [place] [id number] Social History Tobacco Use Types Packs/Day Years [...] Description 03/06/2025 10:30 AM EDT Hospital Encounter [facility] Vascular Lab [address] [place] [phone] Mike Boucher MD [address] [facility] [place] [phone] Cardiovascular stress test abnormal; Preop cardiovascular exam; Other chest pain 03/06/2025 10:30 AM EDT - 03/06/2025 11:30 AM EDT Surgery [facility] Vascular Lab [address] [place] [phone] Mike Boucher MD [address] [facility] [address] [facility] [place] [phone] Coronary angiography documented as of this encounter Procedures Procedure Name Priority Date/Time Associated Diagnosis Comments ECG 12-LEAD Routine 01/14/2025 2:23 PM EDT LEXISCAN STRESS MYOCARDIAL PERFUSION IMAGING Routine 01/14/2025 2:21 PM EDT documented in this encounter Results * ECG 12 lead (01/14/2025 2:23 PM EDT) Historical Provider ECG ORDERABLES Final Res ult * Lexiscan Stress Myocardial Perfusion Imaging (01/14/2025 2:21 PM EDT) Anatomical Region Laterality Modality Other us Historical Provider CV STRESS PROCEDURES Sarahi l Result documented in this encounter Visit Diagnoses Not on filedocumented in this encounter Care Teams Entry Specialist Relationship Specialty Start Date End Date Blake Larson MD [address] [place] [address] PCP - General Family Medicine 01/14/25 documented as of this encounter
--- OUTSIDE RECORDS SUMMARY | 2025-01-31 08:25 | XMS_ITS | Clinical Summary ---
Author Organization [facility] Healthcare Address [address] [place] [address] Care Team Providers Care Pest Control Pilot Name Role Phone Blake Ng MD Primary Care Provider [phone] Blake Ng MD Unavailable Allergies No known active allergies Medications Coenzyme Q10 (Co Q-10) 100 MG chewable tablet Active Cyanocobalamin (Vitamin B12) 1000 MCG tablet controlled-rel ease 1 (one) time each day at the same time Active esomeprazole (NexIUM) [address] capsule Take 40 mg by mouth in the morning. Take before meals. Active ferrous sulfate 325 (65 Fe) MG tablet 1 (one) time each day at the same time Active Multiple Vitamin (Multi Vitamin) tablet 1 (one) time each day at the same time Active Multiple Vitamins-[place] als (PreserVision AREDS) tablet Active Blood Glucose Monitoring Suppl (True Metrix Meter) w/Device kitIndications :Type 2 diabetes mellitus with hyperglycemia, with long-term current use of insulin (HCC) 1 each in the morning and 1 each in the evening and 1 each before bedtime. 1 kit 08/01/19 24 Active Accu-Chek Softclix Lancets lancetsIndicat ions:Type 2 diabetes mellitus with hyperglycemia, with long-term current use of insulin (HCC) USE DIRECTED to test BLOOD SUGAR THREE TIMES DAILY 100 each 2 10/17/19 24 Active semaglutide (Ozempic, 1 MG/DOSE,) 4 MG/3ML solution pen-injectorIn dications:Type 2 diabetes mellitus with hyperglycemia, with long-term current use of insulin ([facility]) Inject 1 mg under the skin 1 (one) time per week 3 each 07/03/19 Active allopurinol (Zyloprim) 300 MG tabletIndicati ons:History of renal calculi Take 1 tablet (300 mg) by mouth Daily 90 tablet 07/03/19 25 Active metFORMIN (Glucophage) 1000 MG tabletIndicati ons:Type 2 diabetes mellitus with hyperglycemia, with long-term current use of insulin ([facility]),Hypercho lesterolemia,E levated PSA,Dyslipidem ia Take 1 tablet (1,000 mg) by mouth in the morning and 1 tablet (1,000 mg) in the evening. Take with meals. 180 tablet 07/03/19 Active lisinopril 20 MG tabletIndicati ons:Type 2 diabetes mellitus with hyperglycemia, with long-term current use of insulin ([facility]),Hypercho lesterolemia,E levated PSA,Dyslipidem ia Take 1 tablet (20 mg) by mouth 1 (one) time each day at the same time 90 tablet 07/03/19 026 Active metoprolol succinate XL (Toprol-XL) 50 MG 24 hr tabletIndicati ons:Type 2 diabetes mellitus with hyperglycemia, with long-term current use of insulin ([facility]),Hypercho lesterolemia,E levated PSA,Dyslipidem ia Take 1 tablet (50 mg) by mouth Daily 90 tablet 07/03/19 026 Active rosuvastatin (Crestor) 10 MG tabletIndicati ons:Type 2 diabetes mellitus with hyperglycemia, with long-term current use of insulin ([facility]),Hypercho lesterolemia,E levated PSA,Dyslipidem ia Take 1 tablet (10 mg) by mouth in the morning. 90 tablet 07/03/19 026 Active Magnesium Oxide, Elemental, 400 MG tabletIndicati ons:Hypomagnes emia Take 400 mg by mouth in the morning and at noon 60 tablet 5 08/07/19 25 Active True Metrix Blood Glucose Test test stripIndicatio ns:Type 2 diabetes mellitus with hyperglycemia, with long-term current use of insulin ([facility]) USE DIRECTED to test BLOOD SUGAR IN THE MORNING, IN THE EVENING and BEFORE bedtime 100 strip 11 09/12/19 25 Active True Metrix Blood Glucose Test test stripIndicatio ns:Type 2 diabetes mellitus with hyperglycemia, with long-term current use of insulin ([facility]) USE DIRECTED to test BLOOD SUGAR THREE TIMES DAILY (IN THE MORNING, IN THE EVENING, and BEFORE bedtime) 100 strip 11 09/12/19 25 Active insulin syringe-needle U-100 (TechLITE Insulin Syringe) 31G X 5/16 1 mL miscIndication s:Type 2 diabetes mellitus with hyperglycemia, with long-term current use of insulin ([facility]) As needed 100 each 3 12/05/19 25 Active insulin glargine (Lantus SoloStar) 100 UNIT/ML penIndications :Type 2 diabetes mellitus with hyperglycemia, with long-term current use of insulin ([facility]) Inject 45 Units under the skin at bedtime 3 mL 3 01/23/20 25 Active isosorbide mononitrate ER (Imdur) 30 MG 24 hr tablet Take 30 mg by mouth in the morning. 01/20/20 25 026 Active aspirin 81 MG EC tablet 1 (one) time each day at the same time 025 Discontinued insulin glargine (Lantus SoloStar) 100 UNIT/ML pen Inject 45 Units under the skin at bedtime 01/28/20 24 025 Discontinued(R eoadamer) cephalexin (Keflex) 500 MG capsuleIndicat ions:History of total shoulder replacement, unspecified laterality Take 4 pills 30-60 mins before dental appointment with food 4 capsule 3 03/25/20 24 025 Discontinued insulin glargine (Lantus) 100 UNIT/ML injectionIndic ations:Type 2 diabetes mellitus with hyperglycemia, with long-term current use of insulin ([facility]) Inject 45 Units under the skin at bedtime 45 mL 3 07/03/19 25 025 Discontinued tamsulosin (Flomax) 0.4 MG 24 hr capsuleIndicat ions:Prostate cancer ([facility]) Take 1 capsule (0.4 mg) by mouth Daily 90 capsule 3 07/03/19 25 025 Discontinued hydrOXYzine HCl (Atarax) 25 MG tabletIndicati ons:Pruritus Take 1 tablet (25 mg) by mouth 4 (four) times a day as needed for itching 60 tablet 3 08/05/19 025 Discontinued Active Problems Problem Noted Date [...] 12:56 PM EDT): Mild and stable since 2017. Likely related to aspirin. Abnormal EKG 01/02/2025 [...] continue. Seasonal allergic rhinitis due to pollen Assessment & Plan (01/28/2024 9:51 AM EDT): Symptoms controlled with medication and continue. Assessment & Plan (08/01/2023 2:22 PM EST): Symptoms controlled with medication and continue. Elevated PSA 12/25/2022 History of gastric ulcer 12/25/2022 History of renal calculi 12/25/2022 Benign essential hypertension 12/25/2022 Assessment & [...] stress test. Will refer to cardiology in [place] after obtain results. If pain worsens go to ER. BPH with urinary obstruction 12/25/2022 08/01/2023 Hypercholesterolemia 12/25/2022 025 Nocturia 12/25/2022 08/05/2024 Pressure ulcer of left heel, stage 2 12/25/2022 08/01/2023 Prostate cancer 12/25/2022 01/28/2024 Type 2 diabetes mellitus with foot ulcer 12/25/2022 08/01/2023 Encounters Date Type Department Care Team Description 01/30/2025 Clinisync Result Encounter [facility] External Department Unsolicited Provider, Generic External Data 01/26/2025 9:15 AM EDT Procedure Visit [facility] [address] [place] [address] Errol Powell DPM Dermatophytosis of nail (Primary Dx); Dystrophic nail; Diabetic polyneuropathy associated with type 2 diabetes mellitus (HCC); Encounter for long-term (current) use of insulin (HCC) 01/26/2025 Bamboo flowsheet [facility] [address] [place] [address] Errol Powell DPM 01/26/2025 Travel 01/23/2025 Travel 01/22/2025 Telephone [facility] [address] [place] [phone] Blake Ng MD Med Refill 01/20/2025 Telephone [facility] [address] [place] [phone] Blake Ng MD 01/12/2025 Results Follow-Up [facility] [address] [place] [address] Blake Ng MD Stress test with myocardial perfusion 01/12/2025 Clinisync Result Encounter [facility] External Department Unsolicited Blake Ng MD 01/08/2025 Telephone [facility] [address] [place] [address] Blake Ng MD 01/06/2025 Orders Only [facility] [address] [place] [address] Jonnie Jensen MD 01/02/2025 11:45 AM EDT Office Visit [facility] [address] [place] [address] Blake Ng MD Preoperative clearance (Primary Dx); Other chest pain; Abnormal EKG; Renal calculi; Thrombocytopenia; Type 2 diabetes mellitus with hyperglycemia, with long-term current use of insulin (HCC); Benign essential hypertension 01/02/2025 Bamboo flowsheet [facility] [address] [place] [address] Blake Ng MD 12/30/2024 Clinisync Result Encounter [facility] External Department Unsolicited Provider, Generic External Data 12/30/2024 Clinisync Result Encounter [facility] External Department Unsolicited Provider, Generic External Data 12/30/2024 Clinisync Result Encounter [facility] External Department Unsolicited Provider, Generic External Data 12/09/2024 Refill [facility] [address] [place] [address] Blake Ng MD 12/09/2024 Abstract [facility] [address] [place] [address] Blake Ng MD 12/08/2024 Abstract [facility] [address] [place] [phone] Blake Ng MD 12/04/2024 [facility] [address] [place] [phone] Blake Ng MD Type 2 diabetes mellitus with hyperglycemia, with long-term current use of insulin (HCC) from Last 3 Months Immunizations Immunization Administration [...] How often do you attend chur or moravian services? Patient declined 01/22/2024 Do you belong to any clubs o r organizations such as pentecostalism groups, unions, fraternal or athletic groups, or [...] Recorded Patient Health Questionnaire-2 Score 0 08/05/2024 [facility] of Occupat ional Health - Occupational Stress [...] any time in the past 12 m [facility], were you homeless or living in [...] Mass Index 25.16 01/26/2025 9:22 AM EDT Plan of Treatment Upcoming Encounters Date Type Department Care Team (Late st Contact Info) Description 02/03/2025 10:30 AM EDT Office Visit [facility] [address] [place] [address] Blake Ng MD [address] [place] [address] 04/28/2025 9:15 AM EST Procedure Visit [facility] [address] [place] [phone] Errol Powell DPM [address] [place], [place] [phone] 08/04/2025 10:20 AM EST Office Visit [facility] [address] [place] [address] Sophia Mcmahon MD [address] [place] [address] Health Maintenance Due Date Last Done Comments Diabetes: Hemoglobin A1C 02/03/2025 025, 01/30/2024, 01/25/2024, Additional history exists Influenza Vaccine (#1) 2025 4, 05/07/2023, 03/29/2022, Additional history exists Diabetes: Urine Protein Screening 08/06/2025 08/06/2024, 08/07/2023, 01/11/2023 Diabetes: Retinopathy Screening 08/14/2025 5, 07/16/2023 Pneumococcal Vaccine: 65+ Years Completed 04/27/2020, 03/26/2019, 03/11/2019, Additional history exists Procedures Procedure Name Priority Date/Time Associated Diagnosis Comments CA ECHO DOPPLER COMPLETE 01/30/2025 1:40 PM EDT NM CALEB PERF SPECT REST STR 01/12/2025 12:33 PM EDT STRESS TEST WITH MYOCARDIAL PERFUSION Routine 01/12/2025 11:23 AM EDT Other chest pain Abnormal EKG SCANNED LABS Routine 01/06/2025 1:[address] ABDOMEN/PELVIS WO CONT 12/30/2024 11:06 AM EDT [facility] APTT Routine 12/30/2024 10:45 AM EDT [facility] PROTHROMBIN TIME INR W/O COUM Routine 12/30/2024 10:45 AM EDT ALL CBC WITH AUTO DIFF Routine 12/30/2024 10:45 AM EDT ALL BASIC METABOLIC PANEL Routine 12/30/2024 10:45 AM EDT ECG 12-LEAD 12/30/2024 8:41 AM EDT MICROALBUMIN / CREATININE URINE RATIO Routine 08/06/2024 2:02 PM EST HEMOGLOBIN A1C WITH EAG Routine 08/06/2024 2:01 PM EST from Last 3 Months or Most Recently Relevant to Health Maintenance Results * CA ECHO DOPPLER COMPLETE (01/30/2025 1:40 PM EDT) Anatomical Region Laterality Modality Other 01/30/2025 1:40 PM EDT Narrative 01/30/2025 1:41 [place] [address] Cardiology Report Signed Patient: FABIAN CHAMORRO MR#: [id number] : 1945 Acct:[id number] Age/Sex: 79 / M ADM Date: 01/30/25 Loc: CARD Attending Dr: CASSANDRA JOSE Ordering Physician: CASSANDRA JOSE Date of Service: 01/30/25 Procedure(s): CA echo doppler complete Accession Number(s): [id number] cc: CASSANDRA JOSE; Blake Ng M.D. Patient Name: FABIAN CHAMORRO MR#: [id number] : 1945 Exam Date: 01/30/2025 Ordering Doctor: [...] Signed By: 01/30/25 1341 DD/ 1340 TD/TT: Cost Analyst: Procedure Note Radiology, Radiologist, MD - 01/30/2025 The [place] [id number] Cardiology Report Signed Patient: FABIAN CHAMORRO DMR#: [id number] : 1945cct:[id number] Age/Sex: 79 / MADM Date: 01/30/25 Loc: CARD Attending Dr: CASSANDRA JOSE Ordering Physician: CASSANDRA JOSE Date of Service: 01/30/25 Procedure(s): CA echo doppler complete Accession Number(s): [id number] cc: CASSANDRA JOSE; Blake Ng M.D. Patient Name: FABIAN CHAMORRO MR#: [id number] : 1945 Exam Date: 01/30/2025 Ordering Doctor: [...] M.D. Signed By:01/30/25 1341 DD/ 1340 TD/TT: Cost Analyst: Generic External Data Provider [facility] Final Result * NM CALEB PERF SPECT REST STR (01/12/2025 12:33 PM EDT) Anatomical Region Laterality Modality Other 01/12/2025 12:3 3 PM EDT Narrative 01/12/2025 12:34 [place] [address] Nuclear Medicine Report Signed Patient: FABIAN CHAMORRO MR#: [id number] : 1945 Acct:[id number] Age/Sex: 79 / M ADM Date: 01/09/25 Loc: NM Attending Dr: Blake Ng M.D. Ordering Physician: Blake Ng M.D. Date of Service: 01/09/25 Procedure(s): NM caleb perf SPECT rest str Accession Number(s): [id number] cc: Blake Ng M.D. Patient Name: FABIAN CHAMORRO MR#: [id number] : 1945 Exam Date: 01/09/2025 Ordering Doctor: DR BLAKE NG . RADIOLOGY REPORT PROCEDURE: NM CALEB PERF SPECT REST STR COMPARISON: None. INDICATIONS: [...] the study was pending per attending physician [facility] . For more details please see [...] Signed By: 01/12/25 1234 DD/ 1233 TD/TT: Cost Analyst: Procedure Note Radiology, Radiologist, - 01/12/2025 [place] [address] Nuclear Medicine Report Signed Patient: FABIAN CHAMORRO DMR#: [id number] : 6Acct:[id number] Age/Sex: 79 / MADM Date: 01/09/25 Loc: NM Attending Dr: Blake Ng M.D. Ordering Physician: Blake Ng M.D. Date of Service: 01/09/25 Procedure(s): NM caleb perf SPECT rest str Accession Number(s): [id number] cc: Blake Ng M.D. Patient Name: FABIAN CHAMORRO MR#: [id number] : 1945 Exam Date: 01/09/2025 Ordering Doctor: DR BLAKE NG . RADIOLOGY REPORT PROCEDURE: NM CALEB PERF SPECT REST STR COMPARISON: None. INDICATIONS: [...] the study was pending per attending physician [facility] . For more details pleasesee separate cardiac stress test report. FINDINGS: QUALITY OF STUDY: Good PERFUSION DEFECT: LOCATION: Inferolateral SIZE: Medium SEVERITY: Mild TYPE: Fixed with adequate contractility and thickening consistent with diaphragmatic attenuation WALL MOTION: Normal LV SIZE: 94 mL. TID / TCD: 1.0 LVEF: Calculated EF 61%. SUMMARY: Normal myocardial perfusion imaging study CONCLUSION: Negative myocardial perfusion nuclear stress test without evidence ofischemia or infarction Normal left ventricular systolic function, ejection fraction 61% No transient ischemic dilatation, TID 1.0 EKG portion of stress test is reported separately Dictated by: Bree Sierra MD on 01/12/2025 at 12:29 Approved by: Bree Sierra MD on 01/12/2025 at 12:33 Dictated By: Bree Sierra M.D. Signed By:01/12/25 1234 DD/ 1233 TD/TT: Cost Analyst: us Blake Ng MD [facility] Final Result * Stress test with myocardial perfusion (01/12/2025 11:23 AM EDT) us Blake Ng MD CV STRESS PROCEDURES Final Resul t [address] [address], * SCANNED LABS (01/06/2025 1:17 PM EDT) us Jonnie Jensen MD LAB CHG PERFORMABLES Final R esult * CT ABDOMEN/PELVIS WO CONT (12/30/2024 11:06 AM EDT) Anatomical Region Laterality Modality Radiographic Radha ging 12/30/2024 11:0 6 AM EDT Narrative 12/30/2024 11:08 [place] [address] CT Scan Report Signed Patient: FABIAN CHAMORRO MR#: [id number] : 1945 Acct:[id number] Age/Sex: 79 / M ADM Date: 12/30/24 Loc: CT Attending Dr: Jonnie Jensen M.D. Ordering Physician: Jonnie Jensen M.D. Date of Service: 12/30/24 Procedure(s): CT abdomen pelvis wo con Accession Number(s): [id number] cc: Blake Ng M.D. [place] [address] Patient Name: FABIAN CHAMORRO MRN: [id number] date: 1945 Sex: M Assigned Patient Location: CT Current Patient Location: [facility] Accession/Order Number: [id number] Exam Date: 12/30/2024 11:04 Report Date: 12/30/2024 [...] Jr., D.ORowena 12/30/2024 11:06 AM Dictation Location: [place] [address] Electronically authenticated by: [id number] Y Date: 12/30/2024 11:06 Dictated By: Ritchie Cabrera M.D. Signed By: 12/30/24 1108 DD/ 1106 TD/TT: Cost Analyst: Procedure Note Radiology, Radiologist, MD - 12/30/2024 [place] [address] CT Scan Report Signed Patient: FABIAN CHAMORRO DMR#: [id number] : 1945cct:[id number] Age/Sex: 79 / MADM Date: 12/30/24 Loc: CT Attending Dr: Jonnie Jensen M.D. Ordering Physician: Jonnie Jensen M.D. Date of Service: 12/30/24 Procedure(s): CT abdomen pelvis wo con Accession Number(s): [id number] cc: Blake Ng M.D. The [address] [address] Patient Name: FABIAN CHAMORRO MRN: [id number] date: 1945 Sex: M Assigned Patient Location: CT Current Patient Location: [facility] Accession/Order Number: [id number] Exam Date: 12/30/2024 11:04 Report Date: 12/30/2024 [...] Jr., DNunu 12/30/2024 11:06 AM Dictation Location: [place] [address] Electronically authenticated by: [id number] Y Date: 511:06 Dictated By: Ritchie Cabrera M.D. Signed By:12/30/24 1108 DD/ 1106 TD/TT: Cost Analyst: Generic External Data Provider IMG XR PROCEDURES Final Result * [facility] PROTHROMBIN TIME INR W/O COUM (12/30/2024 10:45 AM EDT) PROTHROMBIN TIME 10.7 9.0 - 11.6 sec TBH TBH INR 1.01 TBH Comment: DESIRED INR: 2.0-3.0 CONDITIONS NOT LISTED BELOW 2.5-3.5 FOR PROSTHETIC HEART VALVE REPLACEMENT 2.5-3.5 RECURRENT THROMBOSIS 12/30/2024 10:4 5 AM EDT 12/30/2024 10:47 AM EDT Narrative [facility] - 12/30/2024 11:35 AM EDT Generic External Data Provider [facility] F inal Result [facility] * [facility] APTT (12/30/2024 10:45 AM EDT) PARTIAL THROMBOPLASTIN TIME 27.9 22.3 - 36.2 sec [facility] 12/30/2024 10:4 5 AM EDT 12/30/2024 10:47 AM EDT Narrative [facility] - 12/30/2024 11:35 AM EDT Generic External Data Provider [facility] F inal Result Performing Organization Address City/[facility] Co de Phone Number [facility] * (ABNORMAL) ALL CBC WITH AUTO DIFF (12/30/2024 10:45 AM EDT) Pathologist [facility] TB WBC 5.5 4.0 - 11.0 10 [...] 119(L) 150 - 450 10 3/uL TB[facility] TB MPV 8.6(L) 9.5 - 13.5 fL TB NEUTROPHILS PERCENT AUTO 68.2 43.0 - 75.0 % TBH LYMPHOCYTES PERCENT AUTO 17.8(L) 20.5 - 60.0 % [facility] MONOCYTES PERCENT AUTO 7.3 1.7 - 12.0 % TB TBH EO % 5.8 0.9 - 7.0 [...] Data Provider [facility] F inal Result [facility] * (ABNORMAL) ALL BASIC METABOLIC PANEL [...] 0.70 - 1.30 mg/dL TBH TBH EGFR-AF BRITISH >60 >=60 mL/min/1.7 3m 2 TBH TBH EGFR-NON AF BRITISH >60 >=60 mL/min/1.7 3m 2 TBH BUN CREATININE RATIO 27.4 TBH CALCIUM 9.6 8.5 - 10.1 mg/dL [facility] 12/30/2024 10:4 5 AM EDT 12/30/2024 10:47 AM EDT Narrative TARAH - 12/30/2024 11:01 AM EDT us Generic External Data Provider TARAH F inal Result TARAH [facility] * ECG 12-LEAD (12/30/2024 8:41 AM EDT) Anatomical Region Laterality Modality Other 12/30/2024 8:41 AM EDT Narrative 12/31/2024 7:01 AM EDT [address] [address] Electrocardiograph Report Signed Patient: FABIAN CHAMORRO MR#: [id number] : 1945 Acct:[id number] Age/Sex: 79 / M ADM Date: 12/30/24 Loc: CT Attending Dr: Jonnie Jensen M.D. Ordering Physician: Jonnie Jensen M.D. Date of Service: 12/30/24 Procedure(s): ECG 12 lead Accession Number(s): [id number] cc: The [facility] Test Date: 2024-12-30 Pat Name: FABIAN CHAMORRO Department: Room: - Gender: Male [place]: : 1945 Requested By: JONNIE JENSEN Order Number: [id number] Reading MD: CASSANDRA JOSE M.D. Measurements Intervals [place] Rate: 78 P: 26 NM: 188 QRS: -24 QRSD: 87 T: 91 QT: 359 QTc: 411 Interpretive Statements SINUS RHYTHM BORDERLINE LEFT AXIS DEVIATION [QRS AXIS < -20] NONSPECIFIC T-WAVE ABNORMALITY Compared to ECG 08/29/2017 10:21:07 T-wave abnormality now present Myocardial infarct finding no longer present Electronically Signed On 12-31-2024 7:01:15 EDT by CASSANDRA JOSE M.D. Dictated By: CASSANDRA JOSE Signed By: 12/31/24 0701 DD/ 0841 TD/TT: Cost Analyst: Procedure Note Radiology, Radiologist, - 12/31/[address] [address] Electrocardiograph Report Signed Patient: FABIAN CHAMORRO DMR#: [id number] : 6Acct:[id number] Age/Sex: 79 / MADM Date: 12/30/24 Loc: CT Attending Dr: Jonnie Jensen M.D. Ordering Physician: Jonnie Jensen M.D. Date of Service: 12/30/24 Procedure(s): ECG 12 lead Accession Number(s): [id number] cc: The [facility] Test Date: 2024-12-30 Pat Name: FABIAN CHAMORRO Department: Room: - Gender: Male [place]: : 1945 Requested By: JONNIE JENSEN Order Number: [id number] Reading MD: CASSANDRA JOSE M.D. Measurements Intervals [place] Rate: 78 P: 26 NM: 188 QRS: -24 QRSD: 87 T: 91 QT: 359 QTc: 411 Interpretive Statements SINUS RHYTHM BORDERLINE LEFT AXIS DEVIATION [QRS AXIS < -20] NONSPECIFIC T-WAVE ABNORMALITY Compared to ECG 08/29/2017 10:21:07 T-wave abnormality now present Myocardial infarct finding no longer present Electronically Signed On 12-31-2024 7:01:15 EDT by CASSANDRA JOSE M.D. Dictated By: CASSANDRA JOSE Signed By:12/31/24 0701 DD/ 0841 TD/TT: Cost Analyst: [facility] External Data Provider [facility] Final Result * (ABNORMAL) Microalbumin / creatinine urine ratio (08/06/2024 2:02 PM EST) MICROALBUMIN, URINE 7.1(H) 0.0 - 1.8 mg/dL 08/06/2024 3:02 PM [facility] CREATININE, URINE (RANDOM) 81.00 mg/dL 08/06/2024 3:02 PM [facility] Comment:No reference range e stablished MICROALBUMIN/CRE ATININE RATIO 87.7(H) 0.0 - 30.0 mg/g 08/06/2024 3:02 PM [facility] Comment: 30-300 mg/g indicates an increased risk for diabetic nephropathy. Greater than 300 mg/g is consistent with clinical nephropathy. (Am. J. Kidney Disease 1995, 25:107) Other 08/06/2024 2:02 PM EST 08/06/2024 2:02 PM EST Blake Ng MD LAB URINE ORDERABLES Final Resul t Performing Organization Address [facility] de Phone Number [address] [address], [facility] [address] [place] [address] * (ABNORMAL) Hemoglobin a1c with eag (08/06/2024 2:01 PM EST) HEMOGLOBIN A1C 7.4(H) 4.3 - 5.6 % 08/07/2024 8:33 AM [facility] Comment: Increased risk for diabetes: 5.7 - 6.4 diabetes: >6.4 glycemic control for adults with diabetes: <7.0 ESTIMATED AVERAGE GLUCOSE 166 mg/dL 08/07/2024 8:33 AM [facility] Blood (Blood) 08/06/2024 2:0 1 PM EST 08/06/2024 2:01 PM EST us Blake Ng MD LAB BLOOD ORDERABLES Final Resul t Performing Organization Address [facility] de Phone Number [address] [address], [facility] [address] [place] [address] from Last 3 Months or Most Recently Relevant to Health Maintenance Insurance MEDICARE [employer] Care Teams Pest Control Pilot Relationship Specialty Start Date End Date Blake Ng MD [address] [place] [phone] PCP - General Family Medicine 07/24/23 Blake Ng MD [address] [place] [address] PCP - [facility] Reach 07/18/24
--- OUTSIDE RECORDS SUMMARY | 2025-01-31 08:25 | XMS_ITS | Encounter Summary ---
Author Organization [facility] Address [address] [place] [address] Care Team Providers Care Breakfast Cook Name Role Phone Blake Larson MD Primary Care Provider [phone] Blake Larson MD Unavailable Encounter Details Date Type Department Care Team (Late st Contact Info) Description 12/08/2024 Abstract [facility] [address] [place] [address] Blake Larson MD [address] [place] [address] Social History Tobacco Use Types Packs/Day Years [...] week 01/22/2024 How often do you attend [facility] or catholic services? Patient declined 01/22/2024 Do you belong to any clubs o r organizations such as zoroastrianism groups, unions, fraternal or athletic groups, or [...] Recorded Patient Health Questionnaire-2 Score 0 08/05/2024 [facility] of Occupat ional [facility] - Occupational Stress Questionnaire Answer [...] in the past 12 m [facility], were you homeless or living [...] Office Visit [facility] [address] [place] [address] Blake Larson MD [address] [place] [address] 04/28/2025 9:15 AM EST Procedure Visit [facility] [address] [place] [address] Errol Powell DPM [address] [facility] [address] 08/04/2025 10:20 AM EST Office Visit [facility] [address] [place] [address] Sophia Mcmahon MD [address] [place] [address] documented as of this encounter Visit Diagnoses Not on filedocumented in this encounter Additional Health Concerns Assessment Noted Time PHQ-9 Depression Total Score: 2 08/05/19 25 10:00 AM EST documented as of this encounter Care Teams Breakfast Cook Relationship Specialty Start Date End Date Blake Larson MD [address] [place] [address] PCP - General Family Medicine 07/24/23 Blake Larson MD [address] [place] [address] PCP - ACO Reach 07/18/24 documented as of this encounter
--- OUTSIDE RECORDS SUMMARY | 2025-01-31 08:25 | XMS_ITS | Clinical Summary ---
Author Organization [facility] Address [address], [address] [place] [address] Care Team Providers Care Automotive Instructor Name Role Phone Unavailable Primary Care Provider [...]
--- OUTSIDE RECORDS SUMMARY | 2025-01-31 08:25 | XMS_ITS | Encounter Summary ---
Author Organization [facility] Address [address] [place] [address] Care Team Providers Care Car Filler Name Role Phone Blake Larson MD Primary Care Provider [phone] Blake Larson MD Unavailable Encounter Details Date Type Department Care Team (Late st Contact Info) Description 12/09/2024 Abstract [facility] [address] [place] [address] Blake Larson MD [address] [place] [address] Social History Tobacco Use Types Packs/Day Years [...] How often do you attend [facility] or spiritism services? Patient declined 01/22/2024 Do you belong to any clubs o r organizations such as roman catholic groups, unions, fraternal or athletic groups, or [...] Recorded Patient Health Questionnaire-2 Score 0 08/05/2024 [facility] of Occupat ional [facility] - Occupational Stress Questionnaire Answer Date [...] any time in the past 12 m [facility], were you homeless or living [...] Office Visit [facility] [address] [place] [address] Blake Larson MD [address] [place] [address] 04/28/2025 9:15 AM EST Procedure Visit [facility] [address] [place] [address] Errol Powell DPM [address] [facility] [place] [address] 08/04/2025 10:20 AM EST Office Visit [facility] [address] [place] [address] Sophia Mcmahon MD [address] [place] [address] documented as of this encounter Visit Diagnoses Not on filedocumented in this encounter Additional Health Concerns Assessment Noted Time PHQ-9 Depression Total Score: 2 08/05/19 25 10:00 AM EST documented as of this encounter Care Teams Car Filler Relationship Specialty Start Date End Date Blake Larson MD [address] [place] [address] PCP - General Family Medicine 07/24/23 Blake Larson MD [address] [place] [address] PCP - ACO Reach 07/18/24 documented as of this encounter
--- OUTSIDE RECORDS SUMMARY | 2025-01-31 08:25 | XMS_ITS | Clinical Summary ---
Author Organization [facility] Address [address] [place] [address] Care Team Providers Care Transfer Engineer Name Role Phone Blake Larson MD Primary Care Provider [phone] Allergies No known active allergies Medications semaglutide (Ozempic) 1 mg/dose (4 mg/3 mL) pen injector Inject 1 mg under the skin 1 (one) time per week. 07/03/2024 Active aspirin 81 mg EC tablet Take 81 mg by mouth in the morning. Active cyanocobalamin, vitamin B-12, 1,000 mcg tablet extended release Take 1,000 mg by mouth in the morning. Active lisinopril 20 mg tablet Take 20 mg by mouth in the morning. 07/03/2024 6 Active metoprolol succinate XL (Toprol-XL) 50 mg 24 hr tablet Take 50 mg by mouth in the morning. 07/03/2024 6 Active rosuvastatin (Crestor) 10 mg tablet Take 10 mg by mouth in the morning. 12/29/2011 6 Active coenzyme Q10 100 mg tablet,chewable Chew 200 mg in the morning. Active esomeprazole (NexIUM) 20 mg packet Take 20 mg by mouth before breakfast. Active metFORMIN (Glucophage) 1,000 mg tablet Take 1,000 mg by mouth with breakfast. 12/29/2011 6 Active insulin glargine (Lantus) 100 unit/mL injection vial Inject 45 Units under the skin two times daily. 12/29/2011 Active allopurinol (Zyloprim) 300 mg tablet Take 300 mg by mouth in the morning. 12/29/2011 Active ferrous sulfate 325 (65 Fe) MG tablet Take 65 mg by mouth with breakfast. Active tadalafil (Cialis) 20 mg tablet Take 20 mg by mouth if needed. 12/29/2024 Active magnesium oxide (Mag-Ox) 400 mg (241.3 mg magnesium) tablet Take 400 mg by mouth in the morning. 01/05/2025 Active dutasteride (Avodart) 0.5 mg capsule Take 0.5 mg by mouth in the morning. 12/29/2024 Active isosorbide mononitrate ER (Imdur) 30 mg 24 hr tabletIndication s:Cardiovascular stress test abnormal,Other chest pain Take 1 tablet (30 mg) by mouth in the morning. Do not crush or chew. 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, with long-term current use of insulin 08/11/2024 Hypomagnesemia 08/07/2024 Charcot joint of left foot 08/05/2024 Medicare annual wellness visit, subsequent 08/05 Nocturnal leg cramps 08/05/2024 Pruritus 08/05/2024 Erectile dysfunction 01/28/2024 History of prostate cancer 01/28/2024 Encounter for long-term current use of medicatio n 01/24/2024 Diabetic retinopathy associa sonia with type 2 diabetes mellitus 08/01/2023 Dyslipidemia 08/01/2023 Peptic ulcer disease 08/01/2023 Primary osteoarthritis of right shoulder 024 Seasonal allergic rhinitis due to pollen 024 Type 2 diabetes mellitus wit h hyperglycemia, with long-term current use of insulin 08/01/2023 Benign essential hypertension 12/25/2022 Elevated PSA 12/25/2022 History of gastric ulcer 12/25/2022 History of renal calculi 12/25/2022 Hypercholesterolemia 12/25/2022 Localized, primary osteoarthritis of hand 2022 Presence of right artificial shoulder joint 12/09 Rupture of right rotator cuff 12/25/2022 Tear of medial meniscus of knee 12/25/2022 Overview (01/19/2025): LEFT KNEE TIA (transient ischemic attack) 12/25/2022 Reactive lymphadenopathy 05/04/2020 Iris nevus, left 06/18/2018 Transient cerebral ischemia 08/30/2017 Encounters Date Type Department Care Team Description 01/19/2025 9:00 AM EDT Office Visit [facility] [address] [place] [address] Mike Boucher MD Cardiovascular stress test abnormal (Primary Dx); Other chest pain; Preop cardiovascular exam; Murmur, heart; Primary hypertension; Mixed hyperlipidemia; History of TIA (transient ischemic attack) 01/19/2025 Telephone [facility] [address] [place] [address] Angelica Henson MA 01/14/2025 Orders Only [facility] [address] [place] [address] Provider, MD Suly from Last 3 Months Family History Medical History Relation Name Comments Stroke Mother Relation Name Status Comments Father Mother Social History Tobacco Use Types Packs/Day [...] Heterosexual or Straight 11/2024 2:11 PM EDT Last Filed Vital Signs Vital Sign Reading [...] Mass Index 25.16 01/19/2025 8:50 AM EDT Plan of Treatment Upcoming Encounters Date Type Department Care Team (Late st Contact Info) Description 03/06/2025 10:30 AM EDT Hospital Encounter [facility] Vascular Lab [address] [place] [address] Mike Boucher MD [address] [place] [address] Cardiovascular stress test abnormal; Preop cardiovascular exam; Other chest pain 03/06/2025 10:30 AM EDT - 03/06/2025 11:30 AM EDT Surgery [facility] V[facility] Lab [address] [place] [address] Mike Boucher MD [address] [place] [address] Coronary angiography Health Maintenance Due Date Last Done Comments Diabetes: Hemoglobin A1C 1945 Medicare Annual Wellness (AWV) 1945 Diabetes: Retinopathy Screening 1955 Depression Screening 1957 Adult Tetanus 1967 Zoster Vaccines (1 of 2) 1995 Fall Risk Screening 2010 COVID-19 Vaccine ( season) 2024 04/30/2024, 05/07/2023, 03/29/2022, Additional history exists Influenza Vaccine (#1) 2025 4, 05/07/2023, 03/29/2022, Additional history exists Diabetes: Urine Protein Screening 08/06/2025 08/06/2024 Pneumococcal Vaccine: 50+ Years Completed 04/27/2020, 03/26/2019, 03/11/2019, Additional history exists HIB Vaccines Aged Out No longer eligi ble based on patient's age to complete this topic HPV Vaccines Aged Out No longer eligi ble based on patient's age to complete this topic IPV Vaccines Aged Out No longer eligi ble based on patient's age to complete this topic Meningococcal B Vaccine Aged Out No l onger eligible based on patient's age to complete this topic Meningococcal Vaccine Aged Out No annamarie deepika eligible based on patient's age to complete this topic Rotavirus Vaccines Aged Out No longer eligible based on patient's age to complete this topic Procedures Procedure Name Priority Date/Time Associated Diagnosis Comments ECG 12-LEAD Routine 01/14/2025 2:23 PM EDT LEXISCAN STRESS MYOCARDIAL PERFUSION IMAGING Routine 01/14/2025 2:21 PM EDT from Last 3 Months Results * ECG 12 lead (01/14/2025 2:23 PM EDT) Historical Provider ECG ORDERABLES Final Res ult * Lexiscan Stress Myocardial Perfusion Imaging (01/14/2025 2:21 PM EDT) Anatomical Region Laterality Modality Other us Historical Provider CV STRESS PROCEDURES Sarahi l Result from Last 3 Months Insurance MEDICARE Member Subscriber Plan / Payer (Ef fective 2025-Present) Name:Fabian Chamorro Member ID:[id number] Relation to Subscriber:Self Name:Fabian Chamorro Subscriber ID:[id number] Payer ID:[id number] Group ID:Not on file Type:Medicare Address: [facility] [address] Care Teams Transfer Engineer Relationship Specialty Start Date End Date Blake Larson MD [address] [place] [address] PCP - General Family Medicine 01/14/25
[2025-01-31 08:55] LABS: Hematocrit 35.2 % (42.0-54.0); Hemoglobin 12.2 g/dL (14.0-18.0); Immature Granulocytes Abs Auto 0.03 10^3/uL (0.00-0.03); Immature Granulocytes Pct Auto 0.5 % (0.0-0.5); Lymphocytes Absolute Auto 1.2 10^3/uL (1.2-3.8); Mean Corpuscular HGB Conc 34.7 g/dL (29.9-35.2); Mean Corpuscular Hemoglobin 32.8 pg (25.9-34.0); Mean Corpuscular Volume 94.6 fL (80.0-94.0); Platelet Count 137 10^3/uL (150-450); Red Blood Count 3.72 10^6/uL (4.70-6.10); White Blood Count 6.5 10^3/uL (4.0-11.0)
[2025-01-31 09:31] LABS: Alanine Aminotransferase 29 U/L (16-63); Albumin Globulin Ratio 1.1; Albumin Level 3.9 g/dL (3.4-5.0); Alkaline Phosphatase 79 U/L (46-116); Anion Gap 13.6; Aspartate Amino Transferase 15 U/L (15-37); Blood Urea Nitrogen 18.0 mg/dL (7.0-18.0); Calcium 9.0 mg/dL (8.5-10.1); Carbon Dioxide 26.9 mmol/L (21.0-32.0); Chloride 104 mmol/L (98-107); Cholesterol 119 mg/dL (<=200); Estimated GFR (African America >60 (>=60 mL/min/1.73m^2); Estimated GFR (Non-African Ame >60 (>=60 mL/min/1.73m^2); Globulin 3.5 g/dL; Glucose 112 mg/dL (74-106); HDL Cholesterol 37 mg/dL (40-60); Magnesium 1.5 mg/dL (1.8-2.4); Potassium 4.5 mmol/L (3.5-5.1); Sodium 140 mmol/L (136-145); Total Protein 7.4 g/dL (6.4-8.2); Triglycerides 118 mg/dL (<=150); VLDL CHOLESTEROL 23.6 mg/dL
== END 2025-01-31 08:20 | disposition home or self-care (01) ==
PROVIDERS: PCP Family Medicine; Visit Provider Family Medicine
DX: E11.65 Type 2 diabetes mellitus with hyperglycemia (principal); Z79.4 Long term (current) use of insulin; Z79.899 Other long term (current) drug therapy; E78.5 Hyperlipidemia, unspecified
CPT/HCPCS: 36415; 80048; 80061; 80076; 83036; 83735; 85025

== ENCOUNTER 2025-02-20 08:09 | Emergency (ER) | payer MEDICARE, SELFPAY ==
[2025-02-20] VITALS (23 sets, daily range): BP systolic 113–173; BP diastolic 60–100; PULSE 75–86; TEMP 36.7; O2SAT 94–97; BMI 25.4
--- OUTSIDE RECORDS SUMMARY | 2025-02-20 08:15 | XMS_ITS | Encounter Summary ---
Author Organization [facility] Address [address] [place] [address] [place] [address] Care Team Providers Care Prepleater Name Role Phone Blake Larson MD Primary Care Provider [phone] Blake Larson MD Unavailable Encounter Details Date Type Department Care Team (Late Contact Info) Description 08/23/2023 External Result Encounter [facility] External Department Unsolicited Blake Lasron MD [address] [place] [phone] Social History Tobacco Use Types Packs/Day Years [...] Care Team (Late st Contact Info) Description 04/28/2025 9:15 AM EST Procedure Visit [facility] [address] [place] [address] Andre Errol A, DPM [address] [facility] [place], [place] [address] 08/04/2025 10:20 AM EST Office Visit [facility] [address] [place] [address] Sophia Mcmahon MD [address] [place] [address] documented as of this encounter Procedures Procedure Name Priority Date/Time Associated Diagnosis Comments STRESS TEST WITH MYOCARDIAL PERFUSION 08/23/2023 11:23 AM EDT documented in this encounter Results * Stress test with myocardial perfusion (08/23/2023 11:23 AM EDT) Anatomical Region Laterality Modality Heart Other 08/23/2023 11:2 3 AM EDT Narrative 08/24/2023 1:10 PM EDT [facility] Main [place] [address] [place] [address] Nuclear Medicine Report Signed Patient: Fabian Chamorro MR#: [id number] : 1945 Acct:[id number] Age/Sex: 78 / M ADM Date: 08/22/23 Loc: Room: Type: [facility] Attending Dr: Blake Larson MD [...] Procedure Note Giancarlo Hu MD - 08/24/2023 [facility] Main [place] [address] [place] [address] Nuclear Medicine Report Signed Patient: Fabian Chamorro DMR#: [id number] : 6Acct:[id number] Age/Sex: 78 / MADM Date: 08/22/23 Loc: Room:Type: [facility] Attending Dr: Blake Larson MD [...] on filedocumented in this encounter Care Teams Prepleater Relationship Specialty Start Date End Date Blake Larson MD PCP - General Family Medicine 07/24/23 Blake Larson MD [address] [place] [address] PCP - ACO Reach 07/18/24 documented as of this encounter
--- OUTSIDE RECORDS SUMMARY | 2025-02-20 08:16 | XMS_ITS | Clinical Summary ---
Author Organization [facility] Address [address] [place] [address] Phone Care Team Providers Care Personnel Training Officer Name Role Phone Unavailable Primary Care [...] COVID-19 Vaccine (1 - 2023-2 5 season) 2025 Influenza Vaccine (#1) 2025 HIB Vaccines Aged [...] topic Insurance MEDICARE PART A AND B [facility]
--- OUTSIDE RECORDS SUMMARY | 2025-02-20 08:16 | XMS_ITS | Encounter Summary ---
Author Organization [facility] Address [address] [place] [address] Care Team Providers Care Magazine Writer Name Role Phone Blake Larson MD Primary Care Provider [phone] Blake Larson MD Unavailable Encounter Details Date Type Department Care Team (Late st Contact Info) Description 08/14/2024 Orders Only [facility] [place] [facility] [address] [facility] [place] [address] [place] [address] [address] Social History Tobacco Use Types [...] week 01/22/2024 How often do you attend [facility] or mormonism services? Patient declined 01/22/2024 Do you belong to any clubs o r organizations such as scientologist groups, unions, fraternal or athletic groups, or [...] Recorded Patient Health Questionnaire-2 Score 0 08/05/2024 [facility] Occupat ional [facility] - Occupational Stress Questionnaire Answer Date [...] any time in the past 12 m [facility], were you homeless or living [...] Description 04/28/2025 9:15 AM EST Procedure Visit [facility] [address] [place] [address] Errol Powell DPM [address] [place] [address] 08/04/2025 10:20 AM EST Office Visit [facility] [address] [place] [address] Sophia Mcmahon MD [address] [place] [address] documented as of this encounter Procedures Procedure Name Priority Date/Time Associated Diagnosis Comments DIABETES EYE EXAM Routine 08/14/2024 3:15 PM EST documented in this encounter Results * Diabetes Eye Exam (08/14/2024 3:15 PM EST) us Benito Krause MD HEALTH MAINTENANCE Final Resul t documented in this encounter Visit Diagnoses Not on filedocumented in this encounter Additional Health Concerns Assessment Noted Time PHQ-9 Depression Total Score: 2 08/05/19 25 10:00 AM EST documented as of this encounter Care Teams Magazine Writer Relationship Specialty Start Date End Date Blake Larson MD PCP - General Family Medicine 07/24/23 Blake Larson MD [address] [place] [address] PCP - ACO Reach 07/18/24 documented as of this encounter
--- OUTSIDE RECORDS SUMMARY | 2025-02-20 08:16 | XMS_ITS | Encounter Summary ---
Author Organization [facility] Address [address] [place] [address] Care Team Providers Care Transport Rn Name Role Phone Blake Larson MD Primary Care Provider [phone] Blake Larson MD Unavailable Encounter Details Date Type Department Care Team (Late st Contact Info) Description 01/06/2025 Orders Only [facility] [address] [facility] [phone] Jonnie Mancia MD [address] [place] [address] Social History Tobacco Use Types [...] week 01/22/2024 How often do you attend [facility] or mandaen services? Patient declined 01/22/2024 Do you belong to any clubs o r organizations such as tenriism groups, unions, fraternal or athletic groups, or [...] Recorded Patient Health Questionnaire-2 Score 0 08/05/2024 [facility] - Occupational Stress Questionnaire Answer [...] any time in the past 12 m [facility], were you homeless or living in [...] EST Procedure Visit [facility] [address] [place] [address] Errol Powell DPM [address] [place] [address] 08/04/2025 10:20 AM EST Office Visit [facility] [address] [place] [address] Sophia Mcmahon MD [address] [place] [address] documented as of this encounter [...] documented as of this encounter Care Teams Transport Rn Relationship Specialty Start Date End Date Blake Larson MD PCP - General Family Medicine 07/24/23 Blake Larson MD [address] [place] [address] PCP - ACO Reach 07/18/24 documented as of this encounter
--- OUTSIDE RECORDS SUMMARY | 2025-02-20 08:16 | XMS_ITS | Encounter Summary ---
Author Organization [facility] Address [address] [place] [address] Care Team Providers Care Portfolio Mgr Name Role Phone Blake Larson MD Primary Care Provider [phone] Blake Larson MD Unavailable Encounter Details Date Type Department Care Team (Late st Contact Info) Description 02/02/2025 Results Follow-Up [facility] [place] [facility] [address] [place] [address] Blake Larson MD [address] [facility] [place] [address] ALL CBC WITH AUTO DIFF, MLR HEMOGLOBIN A1C, HMHP LIVER PANEL, Additional followed-up results: 3 Social History Tobacco Use Types Packs/Day Years [...] often do you attend chur ch or yazidism services? Patient declined 01/22/2024 Do you belong to any clubs o r organizations such as latter day groups, unions, fraternal or athletic groups, or [...] Recorded Patient Health Questionnaire-2 Score 0 08/05/2024 [facility] of Occupat ional [facility] - Occupational Stress Questionnaire Answer Date Recorded [...] any time in the past 12 m [facility], were you homeless or living in a [...] 04/28/2025 9:15 AM EST Procedure Visit [facility] [address] [place] [address] Errol Powell DPM [address] [place] [address] 08/04/2025 10:20 AM EST Office Visit [facility] [address] [place] [address] Sophia Mcmahon MD [address] [place] [address] documented as of this encounter Visit Diagnoses Diagnosis Hypomagnesemia Disorders of magnesium metabolism documented in this encounter Additional Health Concerns Assessment Noted Time PHQ-9 Depression Total Score: 2 08/05/19 25 10:00 AM EST documented as of this encounter Care Teams Portfolio Mgr Relationship Specialty Start Date End Date Blake Larson MD PCP - General Family Medicine 07/24/23 Blake Larson MD [address] [place] [address] PCP - ACO Reach 07/18/24 documented as of this encounter
--- OUTSIDE RECORDS SUMMARY | 2025-02-20 08:16 | XMS_ITS | Encounter Summary ---
Author Organization [facility] Address [address] [place] [address] Care Team Providers Care Segmental Paver Installer Name Role Phone Blake Larson MD Primary Care Provider [phone] Blake Larson MD Unavailable Reason for Referral * Consultation (Routine) - Closed Specialty Diagnoses / Procedures Referred By Flavia crowe Referred To Contact Cardiology Diagnoses Other chest pain Abnormal EKG Abnormal stress test Procedures SD OFFICE/OUTPATIENT NEW HIGH MDM 60 MINUTES Blake Larson MD Phone: tel: fax: Argelia Gonsales MD [address] [place] [address] Phone: tel: fax: Referral ID Status Reason Start Date Expiration Date V isits Requested Visits Authorized [id number] Closed Specialty Services Required 01/12/2025 07/11/2025 1 1 Encounter Details Date Type Department Care Team (Late st Contact Info) Description 01/12/2025 Results [facility] [address] [place] [address] Blake Larson MD [address] [place] [address] Stress test with myocardial perfusion Social History [...] How often do you attend chur or judaism services? Patient declined 01/22/2024 Do you belong to any clubs o r organizations such as spiritism groups, unions, fraternal or athletic groups, or [...] Recorded Patient Health Questionnaire-2 Score 0 08/05/2024 [facility] [place] of Occupat ional Health - Occupational Stress [...] time in the past [address] [facility], were you homeless or living [...] Procedure Visit [facility] [address] [place] [address] Errol Powell DPM [address] [place] [phone] 08/04/2025 10:20 AM EST Office Visit [facility] [address] [place] [address] Sophia Mcmahon MD [address] [place] [address] Scheduled Referrals Name Type Priority Associated Diagnoses [...] documented as of this encounter Care Teams Segmental Paver Installer Relationship Specialty Start Date End Date Blake Larson MD PCP - General Family Medicine 07/24/23 Blake Larson MD [address] [place] [address] PCP - ACO Reach 07/18/24 documented as of this encounter
--- OUTSIDE RECORDS SUMMARY | 2025-02-20 08:16 | XMS_ITS | Encounter Summary ---
Author Organization [facility] Address [address] [place] [address] Care Team Providers Care Headhunter Name Role Phone Blake Larson MD Primary Care Provider [phone] Blake Larson MD Unavailable Reason for Visit * Reason Comments Med Refill Encounter Details Date Type Department Care Team (Late st Contact Info) Description 09/11/2024 Refill [facility] [address] [place] [address] Blake Larson MD [address] [place] [address] Type 2 diabetes mellitus with hyperglycemia, with [...] often do you attend chur ch or christianity services? Patient declined 01/22/2024 Do you belong to any clubs o r organizations such as buddhist groups, unions, fraternal or athletic groups, or [...] Recorded Patient Health Questionnaire-2 Score 0 08/05/2024 [facility] - [...] encounter Miscellaneous Notes * Telephone Encounter - Rosalinda Kessler MA - 09/11/2024 11:49 AM EDT [facility] documented in this encounter Plan of Treatment Upcoming Encounters Date Type Department Care Team (Late st Contact Info) Description 04/28/2025 9:15 AM EST Procedure Visit [facility] [address] [place] [address] Errol Powell DPM [address] [place] [address] 08/04/2025 10:20 AM EST Office Visit [facility] [address] [place] [address] Sophia Mcmahon MD [address] [place] [address] documented as of this encounter Visit Diagnoses Diagnosis Type 2 diabetes mellitus with hyperglycemia, with long-term current use of insulin (HCC) documented in this encounter Additional Health Concerns Assessment Noted Time PHQ-9 Depression Total Score: 2 08/05/19 25 10:00 AM EST documented as of this encounter Care Teams Headhunter Relationship Specialty Start Date End Date Blake Larson MD PCP - General Family Medicine 07/24/23 Blake Larson MD [address] [place] [address] PCP - ACO Reach 07/18/24 documented as of this encounter
--- OUTSIDE RECORDS SUMMARY | 2025-02-20 08:16 | XMS_ITS | Clinical Summary ---
Author Organization [facility] Address [address] [place] [address] Care Team Providers Care Demand Equipment Repairer Name Role Phone DavenportAlejandro Florecita GAN [...] N ot on file 07/08/2022 Data from: [email or web address] Last address used for calculation [address] [...] Influenza Vaccine (#1) 2025 Insurance [facility] MEDICARE Care Teams Demand Equipment Repairer Relationship Specialty Start Date End Date Alejandro Davenport DO PCP - General Family Medicine 10/02/13
--- OUTSIDE RECORDS SUMMARY | 2025-02-20 08:16 | XMS_ITS | Encounter Summary ---
Author Organization [facility] Address [address] [place] [address] Phone Care Team Providers Care Extrusion Operator Name Role Phone Unavailable Primary Care Provider Unavailabl e Encounter Details Date Type Department Care Team (Late st Contact Info) Description 08/22/2023 Scanned Document [facility] [address] [place] [address] Scanning, Generic Provider Social History [...]
--- OUTSIDE RECORDS SUMMARY | 2025-02-20 08:16 | XMS_ITS | Encounter Summary ---
Author Organization [facility] Address [address] [place] [address] Care Team Providers Care Maintenance Technician Name Role Phone Blake Larson MD Primary Care Provider [phone] Blake Larson MD Unavailable Encounter Details Date Type Department Care Team (Late st Contact Info) Description 04/21/2024 Abstract [facility] [address] [place] [phone] Errol Powell DPHeladio [address] [place], [place] [phone] Social History Tobacco Use Types Packs/Day Years [...] 01/22/2024 How often do you attend [facility] or catholic services? Patient declined 01/22/2024 Do you belong to any clubs o r organizations such as hoahaoism groups, unions, fraternal or athletic groups, or [...] and heating? Not hard at all 01/22/2024 [facility] - Occupational [...] any time in the past 12 m [facility], were you homeless or living in a correction (including now)? No 01/22/2024 Sex and Gender [...] Procedure Visit [facility] [address] [place] [address] Errol Powell, DPM [address] [place], [place] [address] 08/04/2025 10:20 AM EST Office Visit [facility] [address] [place] [phone] Sophia Mcmahon MD [address] [place] [address] documented as of this encounter Visit Diagnoses Not on filedocumented in this encounter Care Teams Maintenance Technician Relationship Specialty Start Date End Date Blake Larson MD PCP - General Family Medicine 07/24/23 Blake Larson MD [address] [place] [address] PCP - ACO Reach 07/18/24 documented as of this encounter
--- OUTSIDE RECORDS SUMMARY | 2025-02-20 08:17 | XMS_ITS | Encounter Summary ---
Author Organization [facility] Address [address] [place] [address] Care Team Providers Care Senior Product Consultant Name Role Phone Blake Larson MD Primary Care Provider [phone] Blaek Larson MD Unavailable Encounter Details Date Type Department Care Team (Late st Contact Info) Description 12/08/2024 Abstract [facility] [address] [place] [address] Blake Larson MD [address] [place] [address] Social History Tobacco Use Types Packs/Day Years [...] you attend [facility] or adventist services? Patient declined 01/22/2024 Do you belong [...] Patient Health Questionnaire-2 Score 0 08/05/2024 [facility] - Occupational Stress Questionnaire Answer Date Recorded [...] time in the past 12 m [facility], were you homeless or living [...] EST Procedure Visit [facility] [address] [place] [phone] Errol Powell DPM [address] [place] [address] 08/04/2025 10:20 AM EST Office Visit [facility] [address] [place] [address] Sophia Mcmahon MD [address] [place] [address] documented as of this encounter Visit Diagnoses Not on filedocumented in this encounter Additional Health Concerns Assessment Noted Time PHQ-9 Depression Total Score: 2 08/05/19 25 10:00 AM EST documented as of this encounter Care Teams Senior Product Consultant Relationship Specialty Start Date End Date Blake Larson MD PCP - General Family Medicine 07/24/23 Blake Larson MD [address] [place] [address] PCP - ACO Reach 07/18/24 documented as of this encounter
--- OUTSIDE RECORDS SUMMARY | 2025-02-20 08:17 | XMS_ITS | Encounter Summary ---
Author Organization [facility] Address [address] [place] [address] Care Team Providers Care Engraver Wood Name Role Phone Blake Larson MD Primary Care Provider [phone] Blake Larson MD Unavailable Encounter Details Date Type Department Care Team (Late Contact Info) Description 08/22/2023 External Result Encounter [facility] External Department Unsolicited Blake Larson MD [address] [place] [phone] Social History Tobacco Use Types Packs/Day Years [...] [facility] [address] [place] [address] Andre Errol A, DPM [address] [place] [address] 08/04/2025 10:20 AM EST Office Visit [facility] [address] [place] [address] Sophia Mcmaohn MD [address] [place] [address] documented as of this encounter Procedures Procedure Name Priority Date/Time Associated Diagnosis Comments STRESS TEST ONLY, REGADENOSON 08/22/2023 5:29 PM EDT documented in this encounter Results * Stress test only, Regadenoson (08/22/2023 5:29 PM EDT) Anatomical Region Laterality Modality Other 08/22/2023 5:29 PM EDT Narrative 08/24/2023 1:10 PM EDT [facility] Main [address] [address] Cardiac Stress Test Signed Patient: Fabian Chamorro MR#: [id number] : 1945 Acct:[id number] Age/Sex: 78 / M ADM Date: 08/22/23 Loc: Room: Type: [facility] Attending Dr: Blake Larson MD [...] be dictated separately. Transcribed By: GUSTAVO 08/23/23 134 Dictated By: Giancarlo Hu MD 08/22/231728 Signed By: <Electronically signed by MD Giancarlo Hu> 08/24/23 1310 Procedure Note Giancarlo Hu MD - 08/24/2023 [facility] Main [place] [address] [place] [address] Cardiac Stress Test Signed Patient: Fabian Chamorro DMR#: [id number] : 6Acct:[id number] Age/Sex: 78 / MADM Date: 08/22/23 Loc: Room:Type: [facility] Attending Dr: Blake Larson MD [...] study will be dictated separately. Transcribed By: GUTSAVO 08/23/23 134 Dictated By: Giancarlo Hu MD 08/22/231728 Signed By: <Electronically signed by MD Giancarlo Hu> 08/24/23 1310 us Blake Larson MD CV STRESS PROCEDURES Final Resul t documented in this encounter Visit Diagnoses Not on filedocumented in this encounter Care Teams Engraver Wood Relationship Specialty Start Date End Date Blake Larson MD PCP - General Family Medicine 07/24/23 Blake Larson MD [address] [place] [address] PCP - ACO Reach 07/18/24 documented as of this encounter
--- OUTSIDE RECORDS SUMMARY | 2025-02-20 08:17 | XMS_ITS | Encounter Summary ---
Author Organization [facility] Address [address] [place] [address] Care Team Providers Care Home Health Outreach Coordinator Name Role Phone Blake aLrson MD Primary Care Provider [phone] Blake Larson MD Primary Care Provider [phone] Blake Larson MD Unavailable Encounter Details Date Type Department Care Team (Late st Contact Info) Description 12/24/2022 Abstract [facility] [address] [place] [address] Errol Powell DPM [address] [place] [address] Social History Tobacco Use Types Packs/Day Years [...] Procedure Visit [facility] [address] [place] [address] Errol Powell DPM [address] [place] [address] 08/04/2025 10:20 AM EST Office Visit [facility] [address] [place] [address] Sophia Mcmahon MD [address] [place] [address] documented as of this encounter Visit Diagnoses Not on filedocumented in this encounter Care Teams Home Health Outreach Coordinator Relationship Specialty Start Date End Date Blake Larson MD PCP - General Family Medicine 12/21/22 07/23/23 Blkae Larson MD PCP - General Family Medicine 07/24/23 Blake Larson MD [address] [place] [address] PCP - ACO Reach 07/18/24 documented as of this encounter
--- OUTSIDE RECORDS SUMMARY | 2025-02-20 08:17 | XMS_ITS | Clinical Summary ---
Author Organization [facility] Address [address], [address] [place] [address] Care Team Providers Care Toggler Name Role Phone Unavailable Primary Care Provider [...]
--- OUTSIDE RECORDS SUMMARY | 2025-02-20 08:17 | XMS_ITS | Clinical Summary ---
Author Organization [facility] Address [address] [place] [address] Care Team Providers Care Mechanical Design Drafter Name Role Phone Blake Larson MD Primary Care Provider [phone] Allergies No known active allergies Medications semaglutide [...] Description 01/19/2025 9:00 AM EDT Office Visit [facility] [address] [place] [address] Mike Boucher MD Cardiovascular stress test abnormal (Primary Dx); Other chest pain; Preop cardiovascular exam; Murmur, heart; Primary hypertension; Mixed hyperlipidemia; History of TIA (transient ischemic attack) 01/19/2025 Telephone [facility] [address] [place] [address] Angelica Henson MA 01/14/2025 Orders Only [facility] [address] [place] [address] Provider, MD Suly from Last 3 Months [...] Team (Late st Contact Info) Description 03/06/2025 1:00 PM EDT Hospital Encounter [facility] Vascular Lab [address] [place] [address] Mike Boucher MD [address] [place] [address] Cardiovascular stress test abnormal; Preop cardiovascular exam; Other chest pain 03/06/2025 1:00 PM EDT - 03/06/2025 2:00 PM EDT Surgery [facility] V[facility] [address] [place] [address] Mike Boucher MD [address] [place] [address] Coronary angiography Health Maintenance Due Date Last Done Comments Diabetes: Hemoglobin A1C 1945 Medicare Annual Wellness (AWV) 1945 Diabetes: Retinopathy Screening 1955 Depression Screening 1957 Adult Tetanus 1967 Zoster Vaccines (1 of 2) 1995 Fall Risk Screening 2010 COVID-19 Vaccine ( season) 2025 04/30/2024, 05/07/2023, 03/29/2022, Additional history exists Influenza Vaccine (#1) 2025 , 05/07/2023, 03/29/2022, Additional history exists Diabetes: Urine [...] ECG 12 lead (01/14/2025 2:23 PM EDT) us Historical Provider ECG ORDERABLES Final Res ult * Lexiscan Stress Myocardial Perfusion Imaging (01/14/2025 2:21 PM EDT) Anatomical Region Laterality Modality Other us Historical Provider CV STRESS PROCEDURES Sarahi l Result from Last 3 Months Insurance MEDICARE Member Subscriber Plan / Payer (Ef fective 2010-Present) Name:Fabian Chamorro Member ID:[id number] Relation to Subscriber:Self Name:Fabian Chamorro Subscriber ID:[id number] Payer ID:[id number] Group ID:Not on file Type:Medicare Address: [facility] [address] Care Teams Mechanical Design Drafter Relationship Specialty Start Date End Date Blake Larson MD [address] [place] [address] PCP - General Family Medicine 01/14/25
--- OUTSIDE RECORDS SUMMARY | 2025-02-20 08:17 | XMS_ITS | Encounter Summary ---
Author Organization [facility] Address [address] [place] [address] Care Team Providers Care Clerk Secretary Name Role Phone Blake Larson MD Primary Care Provider [phone] Blake Larson MD Unavailable Encounter Details Date Type Department Care Team (Late st Contact Info) Description 12/09/2024 Abstract [facility] [address] [place] [address] Blake Larson MD [address] [place] [address] Social History Tobacco Use Types Packs/Day Years [...] week 01/22/2024 How often do you attend [facility] or judaism services? Patient declined 01/22/2024 Do [...] Recorded Patient Health Questionnaire-2 Score 0 08/05/2024 [facility] - Occupational Stress Questionnaire Answer Date Recorded [...] any time in the past 12 m [facility], were you homeless or living [...] EST Procedure Visit [facility] [address] [place] [address] Errol Powell DPM [address] [place] [address] 08/04/2025 10:20 AM EST Office Visit [facility] [address] [place] [address] Sophia Mcmahon MD [address] [place] [address] documented as of this encounter Visit Diagnoses Not on filedocumented in this encounter Additional Health Concerns Assessment Noted Time PHQ-9 Depression Total Score: 2 08/05/19 25 10:00 AM EST documented as of this encounter Care Teams Clerk Secretary Relationship Specialty Start Date End Date Blake Larson MD PCP - General Family Medicine 07/24/23 Blake Larson MD [address] [place] [address] PCP - ACO Reach 07/18/24 documented as of this encounter
--- OUTSIDE RECORDS SUMMARY | 2025-02-20 08:17 | XMS_ITS | Clinical Summary ---
Author Organization [employer] Address [id number] [address] [place] [address] Care Team Providers Care Final Rail Cutter Name Role Phone Blake Larson MD Primary Care Provider [phone] Allergies No known active allergies Medications metFORMIN [...] Medical Devices Not on file Insurance MEDICARE [facility] Advance Directives * Full Code (Latest Code Status on File) Date Activated Date Inactivated Comments 08/29/2017 3:43 PM 08/30/2017 7:25 PM Care Teams Final Rail Cutter Relationship Specialty Start Date End Date Blake Larson MD PCP - General Family Medicine 08/29/17
--- OUTSIDE RECORDS SUMMARY | 2025-02-20 08:17 | XMS_ITS | Clinical Summary ---
Author Organization [facility] Healthcare Address [address] [place] [address] Care Team Providers Care Gem Technician Name Role Phone Blake Ng MD Primary Care Provider [phone] Blake Ng MD Unavailable Allergies No known active allergies Medications Cyanocobalamin (Vitamin B12) 1000 MCG tablet controlled-rel [...] day at the same time Active Multiple Vitamins-Timber Cruiser als (PreserVision AREDS) tablet Active Blood Glucose [...] hyperglycemia, with long-term current use of insulin ([facility]),Hypercho lesterolemia,E levated PSA,Dyslipidem ia Take 1 tablet (1,000 mg) by mouth in the morning and 1 tablet (1,000 mg) in the evening. Take with meals. 180 tablet 07/03/19 026 Active lisinopril 20 MG tabletIndicati ons:Type 2 diabetes mellitus with hyperglycemia, with long-term current use of insulin ([facility]),Hypercho lesterolemia,E levated PSA,Dyslipidem ia Take 1 tablet (20 mg) by mouth 1 (one) time each day at the same time 90 tablet 07/03/19 026 Active metoprolol succinate XL (Toprol-XL) 50 MG 24 hr tabletIndicati ons:Type 2 diabetes mellitus with hyperglycemia, with long-term current use of insulin ([facility]),Hypercho lesterolemia,E levated PSA,Dyslipidem ia Take 1 tablet (50 mg) by mouth Daily 90 tablet 07/03/19 026 Active rosuvastatin (Crestor) 10 MG tabletIndicati ons:Type 2 diabetes mellitus with hyperglycemia, with long-term current use of insulin ([facility]),Hypercho lesterolemia,E levated PSA,Dyslipidem ia Take 1 tablet (10 mg) by mouth in the morning. 90 tablet 07/03/19 026 Active True Metrix Blood Glucose Test test stripIndicatio ns:Type 2 diabetes mellitus with hyperglycemia, with long-term current use of insulin ([facility]) USE DIRECTED to test BLOOD SUGAR IN THE MORNING, IN THE EVENING and BEFORE bedtime 100 strip 11 09/12/19 25 Active True Metrix Blood Glucose Test test stripIndicatio ns:Type 2 diabetes mellitus with hyperglycemia, with long-term current use of insulin ([facility]) USE DIRECTED to test BLOOD SUGAR THREE TIMES DAILY (IN THE MORNING, IN THE EVENING, and BEFORE bedtime) 100 strip 11 09/12/19 25 Active insulin syringe-needle U-100 (TechLITE Insulin Syringe) 31G X 10/24 1 mL miscIndication s:Type 2 diabetes mellitus with hyperglycemia, with long-term current use of insulin ([facility]) As needed 100 each 3 12/05/19 25 Active isosorbide mononitrate ER (Imdur) 30 MG 24 hr tablet Take 30 mg by mouth in the morning. 01/20/20 25 026 Active Magnesium Oxide, Elemental, 400 MG tabletIndicati ons:Hypomagnes emia Take 400 mg by mouth in the morning and 400 mg in the evening and 400 mg before bedtime. 90 tablet 5 02/03/20 25 Active Additional Information Patient not taking.Reported on 02/03/2025 dutasteride (Avodart) 0.5 MG capsule Take 0.5 mg by mouth Daily Active insulin glargine (Lantus SoloStar) 100 UNIT/ML penIndications :Type 2 diabetes mellitus with hyperglycemia, with long-term current use of insulin ([facility]) Inject 40 Units under the skin at bedtime 02/04/20 25 Active Coenzyme Q10 (Co Q-10) 100 MG chewable tablet 025 Discontinued insulin glargine (Lantus SoloStar) 100 UNIT/ML pen Inject 45 Units under the skin at bedtime 01/28/20 24 025 Discontinued(R eorder) insulin glargine (Lantus) 100 UNIT/ML injectionIndic ations:Type 2 diabetes mellitus with hyperglycemia, with long-term current use of insulin ([facility]) Inject 45 Units under the skin at bedtime 45 mL 3 07/03/19 25 025 Discontinued Magnesium Oxide, Elemental, 400 MG tabletIndicati ons:Hypomagnes emia Take 400 mg by mouth in the morning and at noon 60 tablet 5 08/07/19 25 025 Discontinued(R eorder) insulin glargine (Lantus SoloStar) 100 UNIT/ML penIndications :Type 2 diabetes mellitus with hyperglycemia, with long-term current use of insulin ([facility]) Inject 45 Units under the skin at bedtime 3 mL 3 01/23/20 25 025 Discontinued Active Problems Problem Noted [...] use of insulin 08/01/2023 Assessment & Plan (02/03/2025 12:14 PM EDT): BS controlled and starting to drop low. Decrease lantus to 40 units daily and check BS TID. Stick to ADA diet and limit carbs. Assessment & Plan (01/02/2025 12:56 PM EDT): [...] Peptic ulcer disease 08/01/2023 Assessment & Plan (02/03/2025 12:13 PM EDT): Symptoms controlled with nexium and continue. Assessment & Plan (01/28/2024 9:51 AM EDT): Symptoms controlled with nexium and continue. Assessment & Plan (08/01/2023 2:22 PM EST): Symptoms controlled with nexium and continue. Diabetic retinopathy associa sonia with type 2 diabetes mellitus 08/01/2023 BPH without urinary obstruction 08/01/2023 Assessment & Plan (02/03/2025 12:13 PM EDT): Symptoms controlled with flomax and continue. Follow with urology. Assessment & Plan (01/28/2024 9:51 AM EDT): [...] Benign essential hypertension 12/25/2022 Assessment & Plan (02/03/2025 12:13 PM EDT): BP controlled and monitor PRN. Assessment & Plan (01/02/2025 12:52 PM EDT): BP controlled and monitor PRN. Assessment & Plan (01/28/2024 9:51 AM EDT): BP controlled and monitor PRN. Assessment & Plan (08/01/2023 2:22 PM EST): BP controlled and monitor PRN. Renal calculi 12/25/2022 Assessment & Plan (02/03/2025 12:14 PM EDT): Occasional pain and needs procedure but heart cath first 03/06. Assessment & Plan (01/02/2025 12:55 PM EDT): [...] stress test. Will refer to cardiology in [place] after obtain results. If pain worsens go to ER. BPH with urinary obstruction 12/25/2022 08/01/2023 Hypercholesterolemia 12/25/2022 025 Nocturia 12/25/2022 08/05/2024 Pressure ulcer of left heel, stage 2 12/25/2022 08/01/2023 Prostate cancer 12/25/2022 01/28/2024 Type 2 diabetes mellitus with foot ulcer 12/25/2022 08/01/2023 Encounters Date Type Department Care Team Description 02/03/2025 10:30 AM EDT Office Visit [facility] [address] [place] [address] Blake Ng MD Type 2 diabetes mellitus with hyperglycemia, with long-term current use of insulin (HCC) (Primary Dx); Benign essential hypertension ; BPH without urinary obstruction; Peptic ulcer disease; Renal calculi 02/03/2025 Bamboo flowsheet [facility] [address] [address] Blake Ng MD 02/02/2025 Results Follow-Up [facility] [address] [phone] Blake Ng MD ALL CBC WITH AUTO DIFF, MLR HEMOGLOBIN A1C, HMHP LIVER PANEL, Additional followed-up results: 3 01/31/2025 Clinisync Result Encounter [facility] External Department Unsolicited Blake Ng MD 01/30/2025 Clinisync Result Encounter [facility] External Department Unsolicited Provider, Generic External Data 01/26/2025 9:15 AM EDT Procedure Visit [facility] [address] [place] [address] Errol Powell DPM Dermatophytosis of nail (Primary Dx); Dystrophic nail; Diabetic polyneuropathy associated with type 2 diabetes mellitus (HCC); Encounter for long-term (current) use of insulin (HCC) 01/26/2025 Bamboo flowsheet [facility] [address] [place] [address] Errol Powell DPM 01/26/2025 Travel 01/23/2025 Travel 01/22/2025 Telephone [facility] [address] [phone] Blake Ng MD Med Refill 01/20/2025 Telephone [facility] [address] [place] [phone] Blake Ng MD 01/12/2025 Results Follow-Up [facility] [address] [place] [address] Blake Ng MD Stress test with myocardial perfusion 01/12/2025 Clinisync Result Encounter [facility] External Department Unsolicited Blake Ng MD 01/08/2025 Telephone [facility] [address] [place] [address] Blake Ng MD 01/06/2025 Orders Only [facility] [address] [place] [phone] Jonnie Mancia MD 01/02/2025 11:45 AM EDT Office Visit [facility] [address] [place] [phone] Blake Ng MD Preoperative clearance (Primary Dx); Other chest pain; Abnormal EKG; Renal calculi; Thrombocytopenia; Type 2 diabetes mellitus with hyperglycemia, with long-term current use of insulin (HCC); Benign essential hypertension 01/02/2025 Bamboo flowsheet [facility] [address] [place] [address] Blake Ng MD 12/30/2024 Clinisync Result Encounter [facility] External Department Unsolicited Provider, Generic External Data 12/30/2024 Clinisync Result Encounter [facility] External Department Unsolicited Provider, Generic External Data 12/30/2024 Clinisync Result Encounter [facility] External Department Unsolicited Provider, Generic External Data 12/09/2024 Refill [facility] [address] [place] [address] Blake Ng MD 12/09/2024 Abstract [facility] [address] [place] [address] Blake Ng MD 12/08/2024 Abstract [facility] [address] [place] [phone] Blake Ng MD 12/04/2024 Refill [facility] [address] [place] [phone] Blake Ng MD Type 2 diabetes mellitus [...] How often do you attend chur or yazidi services? Patient declined 01/22/2024 Do you belong to any clubs o r organizations such as oriental orthodox groups, unions, fraternal or athletic groups, or [...] Recorded Patient Health Questionnaire-2 Score 0 08/05/2024 [facility] [place] of Occupat ional Health - Occupational Stress [...] time in the past 12 m [facility], were you homeless or living in a jail (including now)? No 01/22/2024 Sex and Gender Information Value Date Recorded Sex Assigned at Not on file Legal Sex Male 6:53 PM EDT Gender Identity Not on file Sexual Orientation Not on file Last Filed Vital Signs Vital Sign Reading Time Taken Comments Blood Pressure 148/54 02/03/2025 10:52 AM EDT Pulse 79 02/03/2025 10:52 AM EDT Temperature 36.2 C (97.1 F) 02/03/2025 10:52 AM EDT Respiratory Rate 18 02/03/2025 10:52 AM EDT Oxygen Saturation 96% 02/03/2025 10:52 AM EDT Inhaled Oxygen Concentration - - Weight 89.8 kg (198 lb) 02/03/2025 10:52 AM EDT Height 188 cm (6' 2 ) 02/03/2025 10:52 AM EDT Body Mass Index 25.42 02/03/2025 10:52 AM EDT Plan of Treatment Upcoming Encounters Date Type Department Care Team (Late st Contact Info) Description 04/28/2025 9:15 AM EST Procedure Visit [facility] [place] [address] [place] [phone] Errol Powell DPM [address] [place] [address] 08/04/2025 10:20 AM EST Office Visit [facility] [address] [place] [phone] Sophia Mcmahon MD [address] [place] [address] Health Maintenance Due Date Last Done Comments Influenza Vaccine (#1) 2025 4, 05/07/2023, 03/29/2022, Additional history exists Diabetes: Hemoglobin A1C 08/03/2025 025, 08/06/2024, 01/30/2024, Additional history exists Diabetes: Urine Protein Screening 08/06/2025 08/06/2024, 08/07/2023, 01/11/2023 Diabetes: Retinopathy Screening 08/14/2025 5, 07/16/2023 Pneumococcal Vaccine: 65+ Years Completed 04/27/2020, 03/26/2019, 03/11/2019, Additional history exists Procedures Procedure Name Priority Date/Time Associated Diagnosis Comments ALL LIPID PROFILE (FASTING) Routine 01/31/2025 8:49 AM EDT ALL MAGNESIUM Routine 01/31/2025 8:49 AM EDT ALL BASIC METABOLIC PANEL Routine 01/31/2025 8:49 AM EDT HMHP LIVER PANEL Routine 01/31/2025 8:49 AM EDT MLR HEMOGLOBIN A1C Routine 01/31/2025 8: 49 AM EDT ALL CBC WITH AUTO DIFF Routine 01/31/2025 8:49 AM EDT CA ECHO DOPPLER COMPLETE 01/30/2025 1:40 PM [...] Recently Relevant to Health Maintenance Results * MLR HEMOGLOBIN A1C (01/31/2025 8:49 AM EDT) GLYCOHEMOGLOBIN A1C 5.7 4.5 - 6.2 % [facility] Comment: ADA RECOMMENDED LIMIT 4.0 - 6.0 ADA THERAPEUTIC TARGET < 7.0 ACTION SUGGESTED > 7.0 ESTIMATED AVERAGE GLUCOSE 117 mg/dL [facility] 01/31/2025 8:49 AM EDT 01/31/2025 8:51 AM EDT Narrative CLINISYNC - 01/31/2025 9:31 AM EDT Blake RASCON Final Result Performing Organization Address City/[facility] Co de Phone Number CLINISYNC TB * HMHP LIVER PANEL (01/31/2025 8:49 AM EDT) BILIRUBIN TOTAL 0.5 0.2 - 1.0 mg/dL [facility] BILIRUBIN DIRECT 0.1 0.0 - 0.2 mg/dL [facility] ASPARTATE AMINO TRANSFERASE 15 15 - 37 U/L [facility] ALANINE AMINOTRANSFERASE 29 16 - 63 U/L TBH ALKALINE PHOSPHATASE 79 46 - 116 U/L TBH TOTAL PROTEIN 7.4 6.4 - 8.2 g/dL [facility] ALBUMIN LEVEL 3.9 3.4 - 5.0 g/dL TBH GLOBULIN 3.5 g/dL TBH ALBUMIN GLOBULIN RATIO 1.1 [facility] 01/31/2025 8:49 AM EDT 01/31/2025 8:51 AM EDT Narrative CLINISYNC - 01/31/2025 9:32 AM EDT Blake RASCON Final Result Performing Organization Address [facility] Co de Phone Number CLINISYSARAH TB * (ABNORMAL) ALL MAGNESIUM (01/31/2025 8:49 AM EDT) MAGNESIUM 1.5(L) 1.8 - 2.4 mg/dL TB 01/31/2025 8:49 AM EDT 01/31/2025 8:51 AM EDT Narrative CLINISYNC - 01/31/2025 9:32 AM EDT Blake RASCON Final Result Performing Organization Address [facility] Co de Phone Number CLINISYNC TB * (ABNORMAL) ALL LIPID PROFILE (FASTING) (01/31/2025 8:49 AM EDT) TRIGLYCERIDES 118 <=150 mg/dL TBH CHOLESTEROL 119 <=200 mg/dL TB HDL CHOLESTEROL 37(L) 40 - 60 mg/dL TB Comment: > or =60 mg/dl - LOW CARDIOVASCULAR RISK <40 mg/dl - HIGH CARDIOVASCULAR RISK LDL CHOLESTEROL CALCULATED 59.0 mg/dL TB Comment: <100 mg/dl OPTIMAL 100-129 mg/dl NEAR OR ABOVE OPTIMAL 130-159 mg/dl BORDERLINE HIGH 160-189 mg/dl HIGH >190 mg/dl VERY HIGH VLDL CHOLESTEROL 23.6 mg/dL [facility] CHOL HDL RATIO 3.2 [facility] Comment: 3.3 - 4.4 LOW RISK 4.4 - 7.1 AVERAGE RISK 7.1 - 11.0 MODERATE RISK >11.0 HIGH RISK 01/31/2025 8:49 AM EDT 01/31/2025 8:51 AM EDT Narrative CLINISYNC - 01/31/2025 9:32 AM EDT us Blake Ng MD CLINISYNC Final Result [facility] * (ABNORMAL) ALL CBC WITH AUTO DIFF (01/31/2025 8:49 AM EDT) Only the most recent of2 resultswithin the time period is included. TBH WBC 6.5 4.0 - 11.0 10 3/uL TBH TB RBC 3.72(L) 4.70 - 6.10 10 6/uL TBH TBH HGB 12.2(L) 14.0 - 18.0 g/dL TB TB HCT 35.2(L) 42.0 - 54.0 % TB TB MCV 94.6(H) 80.0 - 94.0 fL TBH TBH MCH 32.8 25.9 - 34.0 pg TBH TB MCHC 34.7 29.9 - 35.2 g/dL TBH TBH RDW 13.3 11.0 - 15.0 % TBH TB PLT 137(L) 150 - 450 10 3/uL TBH TBH MPV 8.5(L) 9.5 - 13.5 fL TBH NEUTROPHILS PERCENT AUTO 67.3 43.0 - 75.0 % TBH LYMPHOCYTES PERCENT AUTO 18.6(L) 20.5 - 60.0 % TBH MONOCYTES PERCENT AUTO 6.8 1.7 - 12.0 % TBH TBH EO % 6.0 0.9 - 7.0 % TBH BASOPHILS PERCENT AUTO 0.8 0.2 - 2.0 % TBH IMMATURE GRANULOCYTES PCT AUTO 0.5 0.0 - 0.5 % TBH NEUTROPHILS ABSOLUTE AUTO 4.4 1.4 - 6.5 10 3/uL TBH LYMPHOCYTES ABSOLUTE AUTO 1.2 1.2 - 3.8 10 3/uL TBH MONOCYTES ABSOLUTE AUTO 0.4 0.3 - 0.8 10 3/uL TBH TBH EO # 0.4 0.0 - 0.7 10 3/uL TBH BASOPHILS ABSOLUTE AUTO 0.1 0.0 - 0.1 10 3/uL TBH IMMATURE GRANULOCYTES ABS AUTO 0.03 0.00 - 0.03 10 3/uL TBH 01/31/2025 8:49 AM EDT 01/31/2025 8:51 AM EDT Narrative CLINISYNC - 01/31/2025 8:58 AM EDT us Blake Ng MD CLINISYNC Final Result [facility] * (ABNORMAL) ALL BASIC METABOLIC PANEL (01/31/2025 8:49 AM EDT) Only the most recent of2 resultswithin the time period is included. SODIUM 140 136 - 145 mmol/L TBH POTASSIUM 4.5 3.5 - 5.1 mmol/L TBH CHLORIDE 104 98 - 107 mmol/L TBH CARBON DIOXIDE 26.9 21.0 - 32.0 mmol/L TBH ANION GAP 13.6 TBH GLUCOSE 112(H) 74 - 106 mg/dL TBH BLOOD UREA NITROGEN 18.0 7.0 - 18.0 mg/dL TBH CREATININE 0.71 0.70 - 1.30 mg/dL TBH TBH EGFR-AF MALIAN >60 >=60 mL/min/1.7 3m 2 TBH TBH EGFR-NON AF MALIAN >60 >=60 mL/min/1.7 3m 2 TBH BUN CREATININE RATIO 25.4 TBH CALCIUM 9.0 8.5 - 10.1 mg/dL TBH 01/31/2025 8:49 AM EDT 01/31/2025 8:51 AM EDT Narrative TARAH - 01/31/2025 9:32 AM EDT Blake RASCON Final Result [facility] * CA ECHO DOPPLER COMPLETE (01/30/2025 1:40 PM EDT) Anatomical Region Laterality Modality Other 01/30/2025 1:40 PM EDT Narrative 01/30/2025 1:41 [place] [address] Cardiology Report Signed Patient: FABIAN CHAMORRO MR#: [id number] : 1945 Acct:[id number] Age/Sex: 79 / M ADM Date: 01/30/25 Loc: CARD Attending Dr: CASSANDRA JOSE Ordering Physician: CASSANDRA JOSE Date of Service: 01/30/25 Procedure(s): CA echo doppler complete Accession Number(s): [id number] cc: CASSANDRA JOSE; Blake Ng M.D. Patient Name: FABIAN CHAMORRO MR#: [id number] : 1945 Exam Date: 01/30/2025 Ordering Doctor: [...] Signed By: 01/30/25 1341 DD/ 1340 TD/TT: Builder Beam: Procedure Note Radiology, Radiologist, MD - 01/30/2025 [place] [address] Cardiology Report Signed Patient: FABIAN CHAMORRO DMR#: [id number] : 6Acct:[id number] Age/Sex: 79 / MADM Date: 01/30/25 Loc: CARD Attending Dr: CASSANDRA JOSE Ordering Physician: CASSANDRA JOSE Date of Service: 01/30/25 Procedure(s): CA echo doppler complete Accession Number(s): [id number] cc: CASSANDRA JOSE; Blake Ng M.D. Patient Name: FABIAN CHAMORRO MR#: [id number] : 1945 Exam Date: 01/30/2025 Ordering Doctor: [...] M.D. Signed By:01/30/25 1341 DD/ 1340 TD/TT: Builder Beam: Generic External Data Provider CLINISYNC IMAGING Final Result * NM CALEB PERF SPECT REST STR (01/12/2025 12:33 PM EDT) Anatomical Region Laterality Modality Other 01/12/2025 12:3 3 PM EDT Narrative 01/12/2025 12:34 [place] [address] Nuclear Medicine Report Signed Patient: FABIAN CHAMORRO MR#: [id number] : 1945 Acct:[id number] Age/Sex: 79 / M ADM Date: 01/09/25 Loc: NM Attending Dr: Blake Ng M.D. Ordering Physician: Blake Ng M.D. Date of Service: 01/09/25 Procedure(s): NM caleb perf SPECT rest str Accession Number(s): [id number] cc: Blake Ng M.D. Patient Name: FABIAN CHAMORRO MR#: [id number] : 1945 Exam Date: 01/09/2025 Ordering Doctor: [...] study was pending per attending physician [facility] . For more details please [...] Signed By: 01/12/25 1234 DD/ 1233 TD/TT: Builder Beam: Procedure Note Radiology, Radiologist, - 01/12/2025 [place] [address] Nuclear Medicine Report Signed Patient: FABIAN CHAMORRO DMR#: [id number] : 1945cct:[id number] Age/Sex: 79 / MADM Date: 01/09/25 Loc: NM Attending Dr: Blake Ng M.D. Ordering Physician: Blake Ng M.D. Date of Service: 01/09/25 Procedure(s): NM caleb perf SPECT rest str Accession Number(s): [id number] cc: Blake Ng M.D. Patient Name: FABIAN CHAMORRO MR#: [id number] : 1945 Exam Date: 01/09/2025 Ordering Doctor: DR BLAKE Guaman RADIOLOGY REPORT PROCEDURE: NM CALEB PERF SPECT [...] study was pending per attending physician [facility] . For more details pleasesee separate cardiac [...] M.D. Signed By:01/12/25 1234 DD/ 1233 TD/TT: Builder Beam: Blake Ng MD CLINISYNC IMAGING Final Result * Stress test with myocardial perfusion (01/12/2025 11:23 AM EDT) Blake Ng MD CV STRESS PROCEDURES Final Resul t [place] [id number], * SCANNED LABS (01/06/2025 1:17 PM EDT) us Jonnie Mancia MD LAB CHG PERFORMABLES Final R esult * CT ABDOMEN/PELVIS WO CONT (12/30/2024 11:06 AM EDT) Anatomical Region Laterality Modality Radiographic Radha ging 12/30/2024 11:0 6 AM EDT Narrative 12/30/2024 11:08 AM EDT The [address] [address] [address] Scan Report Signed Patient: FABIAN CHAMORRO MR#: [id number] : 1945 Acct:[id number] Age/Sex: 79 / M ADM Date: 12/30/24 Loc: CT Attending Dr: Jonnie Mancia M.D. Ordering Physician: Jonnie Mancia M.D. Date of Service: 12/30/24 Procedure(s): CT abdomen pelvis wo con Accession Number(s): [id number] cc: Blake Ng M.D. [address] [address] Patient Name: FABIAN CHAMORRO MRN: [facility]:[id number] date: 1945 Sex: M Assigned Patient Location: CT Current Patient Location: SURGOUT Accession/Order Number: [id number] Exam Date: 12/30/2024 11:04 Report Date: 12/30/2024 11:06 At the request of: JONNIE MANCIA MD Procedure: CT abdomen pelvis wo [...] Jr., D.ORowena 12/30/2024 11:06 AM Dictation Location: [place] [address] Electronically authenticated by: [id number] Y Date: 12/30/2024 11:06 Dictated By: Ritchie Cabrera M.D. Signed By: 12/30/24 1108 DD/ 1106 TD/TT: Builder Beam: Procedure Note Radiology, Radiologist, - 12/30/2024 [place] [address] CT Scan Report Signed Patient: FABIAN CHAMORRO DMR#: [id number] : 1945cct:[id number] Age/Sex: 79 / MADM Date: 12/30/24 Loc: CT Attending Dr: Jonnie Mancia M.D. Ordering Physician: Jonnie Mancia M.D. Date of Service: 12/30/24 Procedure(s): CT abdomen pelvis wo con Accession Number(s): [id number] cc: Blake Ng M.D. The [place] [address] Patient Name: FABIAN CHAMORRO MRN: [facility]:[id number] date: 1945 Sex: M Assigned Patient Location: CT Current Patient Location: SURGOUT Accession/Order Number: [id number] Exam Date: 12/30/2024 11:04 Report Date: 12/30/2024 11:06 At the request of: JONNIE MANCIA MD Procedure: CT abdomen pelvis wo [...] Jr., D.O. 12/30/2024 11:06 AM Dictation Location: [place] [address] Electronically authenticated by: [id number] Y Date: 1:06 Dictated By: Ritchie Cabrera M.D. Signed By:12/30/24 1108 DD/ 1106 TD/TT: Builder Beam: Generic External Data Provider IMG XR PROCEDURES [...] Data Provider CLINISYNC F inal Result CLINISYNC [facility] * CCF APTT (12/30/2024 10:45 AM EDT) PARTIAL THROMBOPLASTIN TIME 27.9 22.3 - 36.2 sec TBH 12/30/2024 10:4 5 AM EDT 12/30/2024 10:47 AM EDT Narrative CLINISYNC - 12/30/2024 11:35 AM EDT us Generic External Data Provider TARAH F inal Result [facility] * ECG 12-LEAD (12/30/2024 8:41 AM EDT) Anatomical Region Laterality Modality Other 12/30/2024 8:41 AM EDT Narrative 12/31/2024 7:01 [place] [address] Electrocardiograph Report Signed Patient: FABIAN CHAMORRO MR#: [id number] : 1945 Acct:[id number] Age/Sex: 79 / M ADM Date: 12/30/24 Loc: CT Attending Dr: Jonnie Mancia M.D. Ordering Physician: Jonnie Mancia M.D. Date of Service: 12/30/24 Procedure(s): ECG 12 lead Accession Number(s): [id number] cc: [facility] Test Date: 2024-12-30 Pat Name: FABIAN CHAMORRO Department: Room: - Gender: Male Floor Sander: : 1945 Requested By: JONNIE MANCIA Order Number: [id number] Reading MD: CASSANDRA JOSE M.D. Measurements Intervals [place] Rate: 78 P: 26 [place]: 188 QRS: -24 QRSD: 87 T: 91 QT: 359 QTc: 411 Interpretive Statements SINUS RHYTHM BORDERLINE LEFT AXIS DEVIATION [QRS AXIS < -20] NONSPECIFIC T-WAVE ABNORMALITY Compared to ECG 08/29/2017 10:21:07 T-wave abnormality now present Myocardial infarct finding no longer present Electronically Signed On 12-31-2024 7:01:15 EDT by CASSANDRA JOSE M.D. Dictated By: CASSANDRA JOSE Signed By: 12/31/24 0701 DD/ 0841 TD/TT: Builder Beam: Procedure Note Radiology, Radiologist, MD - 12/31/2024 The [place] [id number] Electrocardiograph Report Signed Patient: FABIAN CHAMORRO DMR#: [id number] : 1945cct:[id number] Age/Sex: 79 / MADM Date: 12/30/24 Loc: CT Attending Dr: Jonnie Mancia M.D. Ordering Physician: Jonnie Mancia M.D. Date of Service: 12/30/24 Procedure(s): ECG 12 lead Accession Number(s): [id number] cc: [facility] Test Date: 2024-12-30 Pat Name: FABIAN CHAMORRO Department: Room: - Gender: Male Floor Sander: : 1945 Requested By: JONNIE MANCIA Order Number: [id number] Reading MD: CASSANDRA JOSE M.D. Measurements Intervals [place] Rate: 78 P: 26 [place]: 188 QRS: -24 QRSD: 87 T: 91 QT: 359 QTc: 411 Interpretive Statements SINUS RHYTHM BORDERLINE LEFT AXIS DEVIATION [QRS AXIS < -20] NONSPECIFIC T-WAVE ABNORMALITY Compared to ECG 08/29/2017 10:21:07 T-wave abnormality now present Myocardial infarct finding no longer present Electronically Signed On 12-31-2024 7:01:15 EDT by CASSANDRA JOSE M.D. Dictated By: CASSANDRA JOSE Signed By:12/31/24 0701 DD/ 0841 TD/TT: [place] [facility] [place] [facility] Final Result * (ABNORMAL) Microalbumin / creatinine urine ratio (08/06/2024 2:02 PM EST) MICROALBUMIN, URINE 7.1(H) 0.0 - 1.8 mg/dL 08/06/2024 3:02 PM [facility] CREATININE, URINE (RANDOM) 81.00 mg/dL 08/06/2024 3:02 PM [facility] [facility] Comment:No reference range e stablished MICROALBUMIN/CRE ATININE RATIO 87.7(H) 0.0 - 30.0 mg/g 08/06/2024 3:02 PM [facility] Comment: 30-300 mg/g indicates an increased risk for diabetic nephropathy. Greater than 300 mg/g is consistent with clinical nephropathy. (Am. J. Kidney Disease 1995, 25:107) Other 08/06/2024 2:02 PM EST 08/06/2024 2:02 PM EST Blake Ng MD LAB URINE ORDERABLES Final Resul t Performing Organization Address [facility] de Phone Number [address] [address], [address] [address] * (ABNORMAL) Hemoglobin a1c with eag (08/06/2024 2:01 PM EST) HEMOGLOBIN A1C 7.4(H) 4.3 - 5.6 % 08/07/2024 8:33 AM [facility] Comment: Increased risk for diabetes: 5.7 - 6.4 diabetes: >6.4 glycemic control for adults with diabetes: <7.0 ESTIMATED AVERAGE GLUCOSE 166 mg/dL 08/07/2024 8:33 AM [facility] Blood (Blood) 08/06/2024 2:0 1 PM EST 08/06/2024 2:01 PM EST Blake Ng MD LAB BLOOD ORDERABLES Final Resul t Performing Organization Address [facility] Phone Number [address] [address], [facility] [address] [place] [address] from Last 3 Months or Most Recently Relevant to Health Maintenance Insurance MEDICARE [employer] Care Teams Gem Technician Relationship Specialty Start Date End Date Blake Ng MD PCP - General Family Medicine 07/24/23 Blake Ng MD [address] [place] [address] PCP - ACO Reach 07/18/24
--- OUTSIDE RECORDS SUMMARY | 2025-02-20 08:23 | XMS_ITS | CCD ---
Author Organization [facility] Care Team Providers Care Microbiological Analyst Name Role Phone PHYSICIAN, DEFAULT Unavailable Unavailable PHYSICIAN, DEFAULT Unavailable Unavailable Alejandro Davenport Primary Care Provider BLAKE NG Primary Care Physician MD Jermaine Jensen Attending Provider [phone] MD Blake Ng Primary Care Provider MD Jermaine Jensen Attending Provider MD Blake Ng Primary Care Provider [phone] MD Rosy Pina Attending Provider MD Jermaine Jensen Referring Provider [phone] MD Rosy Pina Attending Provider MD Jermaine [...] Referring Provider MD Jermaine Jensen Attending Provider [phone] MD Rosy Pina Referring Provider MD Blake Ng Primary Care Provider MD Rosy Pina Attending Provider MD Jermaine Jensen Referring Provider Blake Ng MD Primary Care Provider MD Blake Ng Primary Care Provider MD Rosy Pina Attending Provider MD Jermaine Jensen Referring Provider MD Blake Ng Attending Provider DO María Reddy Referring Provider MD Blake Ng Primary Care Provider MD Rosy Pina Attending Provider MD Jermaine Jensen Referring Provider MD Blake Ng Primary Care Provider MD Jermaine Jensen Attending Provider MD Rosy Pina Attending Provider MD Jermaine Jensen Referring Provider [phone] MD Blake Ng Attending Provider Blake Ng MD Primary Care Provider Blake gN MD Unavailable Blake Ng MD Primary Care Provider Blake Ng MD Attending Provider Blake Ng MD Primary Care Provider Tre Bertrand APRN Attending Provider Jermaine Jensen MD Attending Provider Hernandez, Blake Attending Unavailable [...] Primary Care Unavailable MOUKARBEL, CASSANDRA Attending Unavailable JENSEN, Jermaine R Attending Unavailable JENSEN, Jermaine R Attending Unavailable JENSEN, Jermaine R Admitting Unavailable JENSEN, Jermaine R Attending Unavailable RUSHER, ISABELLA Bernabe Attending Unavailable PETITTI, SYMONE Bernabe Attending Unavailable NADERER, BLAKE Attending Unavailable RUSHER, ISABELLA Bernabe Attending Unavailable BROWN, JAYCOB A Referring Unavailable BROWN, JAYCOB Bernabe Attending Unavailable BROWN, JAYCOB Bernabe Referring Unavailable RUSHER, ISABELLA Bernabe Attending [...] take 1 tablet by mouth every hour [place] 325 mg-7.5 mg oral tablet 1 tab(s), Oral, Once, 1 tab(s), Refill(s) 0, Take 1 hour prior to procedure, [facility], 180, cm, 12/23/21 8:24:00 EDT, Height/Length Dosing, [...] ascorbic acid 226 mg / beta carotene 53170 unt / cuprous oxide 0.8 mg / [...] each week. dutasteride 0.5 mg oral capsule (3 sources) 5-alpha Reductase Inhibitor Start: 12-30-19 End: 12-25-19 [...] daily Start: 12-29-2011 take 1 capsule by [facility] once daily Nexium 40 mg Cap-EC 40 [...] pen injector (20 sources) Insulin Analog Start: 02-04-20 insulin glargine (Lantus SoloStar) 100 UNIT/ML pen Indications: Type 2 diabetes mellitus with hyperglycemia, with long-term current use of insulin (HCC) Inject 40 Units under the skin at bedtime 02/03/2025 Active Start: 02-03-2025 insulin glargi ne (Lantus SoloStar) 100 UNIT/ML pen Indications: Type 2 diabetes mellitus with hyperglycemia, with long-term current use of insulin (HCC) Inject 40 Units under the skin at bedtime 02/03/2025 Active Start: 01-22-2025 End: 02-03-2025 insulin glargine (Lantus Qiana oStar) 100 UNIT/ML pen Indications: Type 2 diabetes mellitus with hyperglycemia, with long-term current use of insulin (HCC) Inject 45 Units under the skin at bedtime 3 mL 3 01/22/2025 02/03/2025 Discontinued Start: 07-03-2024 inject 45 [IU] by zepeda [...] mononitrate 30 mg extended release oral tablet (6 sources) Nitrate Vasodilator Start: End: take 1 [...] (20 sources) Angiotensin Converting Enzyme Inhibitor Start: 024 End: 026 take 1 tablet [...] daily. Magnesium Oxide, Elemental, 400 MG tablet (19 sources) Start: 02-02-2025 take 1 tablet by mouth in the morning, then take 1 tablet by mouth in the evening, then take 1 tablet by mouth at bedtime Magnesium Oxide, Elemental, 400 MG tablet Indications: Hypomagnesemia Take 400 mg by mouth in the morning and 400 mg in the evening and 400 mg before bedtime. 90 tablet 5 02/02/2025 Active Start: 08-07-2024 take 1 tablet by nataly th in the morning Magnesium Oxide, Elemental, 400 MG tablet Indications: Hypomagnesemia Take 400 mg by mouth in the morning and at noon 60 tablet 5 08/07/2024 Active metFORMIN hydrochloride 1000 mg oral tablet (20 sources) Biguanide Start: 12-29-2011 End: 06-28-2025 take 1 tablet [...] mg extended release oral tablet (20 sources) beta-Adrenergi c Sophia Start: 08-02-2023 End: 06-28-2025 take 1 tablet by mouth once daily metoprolol succinate XL (Toprol-XL) 50 MG 24 hr tablet Indications: Type 2 diabetes mellitus with hyperglycemia, with long-term current use of insulin (HCC) , Hypercholesterolemia , Elevated PSA , Dyslipidemia Take 1 tablet (50 mg) by mouth Daily 90 tablet 3 07/03/2024 06/28/2025 Active Start: 04-26-2022 take 2 tablets by mo [facility] every twenty-four hours at bedtime Start: 04-26-2022 [...] 05/07/2018 Active take 1 tablet by nataly every twenty-four hours in the morning metoprolol [...] hours., # 30 tab(s), Refills(s) 3, Pharmacy: [facility] [id number], 180, cm, 12/29/24 8:48:00 EDT, Height/Length Dosing, [...] 07/03/2024 01/02/2025 Discontinued take 1 capsule by [facility] every twenty-four hours at bedtime tamsulosin (Flomax) 0.4 MG 24 hr capsule Take 0.4 mg by mouth at bedtime. 0 Active Comment on above: Take 0.4 mg by mouth once daily. ubidecarenone 100 mg oral ca psule (20 sources) Start: 05-08-2022 Start: 12-29-2011 take 1 capsule by mo [facility] twice daily Q-Sorb Co Q-10 oral capsule 100 mg = 1 cap(s), Oral, BID, Refills(s) 0, Prophylaxis Start Date: 12/29/11 Status: Ordered Repeat number: 1 End: 02-03-2025 Coenzyme Q10 (Co Q-10) 100 M G chewable tablet 02/03/2025 Discontinued coenzyme Q-10 30 MG capsule Co Q-10 [...] Comment on above: Take 1,000 mcg by [facility] once daily. Vitamins A,C,U-Lmpg-Gzduhz (Preservision Areds) 14,320-226-200 wbwu-nj-zmwr Capsule (14 sources) Start: 05-08-2022 take 1 capsule by mouth twice daily Vitamins A,C,J-Jxwr-Ttttjy (Preservision Areds) 14,320-226-200 efrc-hr-xyqn Capsule Active 1 CAP PO Twice daily May 08, 2022 1:00am Start: 05-08-2022 take 1 capsule by [facility] twice daily Vitamins A,C,V-Vlcb-Htofdk (Preservision Areds) 14,320-226-200 xfdy-qm-euwr Capsule Active 1 CAP PO Twice daily [...] on above: Take 1 tablet by nataly th twice daily. benoxinate hydrochloride 4 mg/ml / [...] 06-06-2022 Methylpredniso lone Active 0 .ROUTE .COMPLEX June 06, 2022 1:00am orally per package directions Start: 06-06-2022 Methylpredniso lone Active 0 .ROUTE .COMPLEX June 06, 2022 12:00am orally per package [...] Onset: 12-20-2021 Episodic Coagulation and hemorrhagic disorders (12 sources) Thrombocytopenic disorder; 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: [Thrombocytopenia, unspecified] Onset: [...] sources) Long-term current use of insulin; 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: [custodial (current) use of insulin] 03-24-2024 Episodic Other [...] Episodic Other nutritional; endocrine; and metabolic disorders (20 sources) Hypomagnesemia; 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: [Hypomagnesemia] Onset: 08-07-2024 08-07-2024 [...] 08-05-2024 08-05-2024 Other aftercare (1 source) Other residential (current) drug therapy; 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: [OTH SHELTER CURRENT DRUG THERAPY] Onset: 01-19-2022 Episodic Other aftercare (1 source) custodial (current) use of insulin; 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: [SHELTER CURRENT USE OF INSULIN] Onset: 01-19-2022 Episodic Other aftercare (20 sources) Long-term current use of drug therapy; 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: [Other residential (current) drug therapy] Onset: 01-24-2024 01-24-2024 Episodic [...] Test Name Value Interpretation Reference Range Facility ALL CBC WITH AUTO DIFFon BASOPHILS ABSOLUTE AUTO 0.1 N [facility] Basophils/100 WBC (Bld) 0.8 % 0.2 - 2.0 % [facility] Eosinophils/100 WBC (Bld) 6 % 0.9 - 7.0 % [facility] Erythrocyte distribution width (RBC) [Ratio] 13.3 % 11.0 - 15.0 % [facility] Hematocrit (Bld) [Volume fraction] 35.2 % Low 42.0 - 54.0 % [facility] Hemoglobin (Bld) [Mass/Vol] 12.2 g/dL Low 14.0 - 18.0 g/dL [facility] IMMATURE GRANULOCYTES ABS AUTO 0.03 [facility] Immature granulocytes/100 WBC (Bld) 0.5 % 0.0 - 0.5 % [facility] Interpretation and review of laboratory results Abnormal [facility] LYMPHOCYTES ABSOLUTE AUTO 1.2 [facility] Lymphocytes/100 WBC (Bld) 18.6 % Low 20.5 - 60.0 % [facility] MCH (RBC) [Entitic mass] 32.8 pg 25.9 - 34.0 pg [facility] MCHC (RBC) [Mass/Vol] 34.7 g/dL 29.9 - 35.2 g/dL [facility] MCV (RBC) [Entitic vol] 94.6 fL High 80.0 - 94.0 fL [facility] MONOCYTES ABSOLUTE AUTO 0.4 N [facility] Monocytes/100 WBC (Bld) 6.8 % 1.7 - 12.0 % [facility] NEUTROPHILS ABSOLUTE AUTO 4.4 [facility] Neutrophils/100 WBC (Bld) 67.3 % 43.0 - 75.0 % [facility] Platelet mean volume (Bld) [Entitic vol] 8.5 fL Low 9.5 - 13.5 fL [facility] TBH EO # 0.4 [facility] PLT 137 Low [facility] RBC 3.72 Low [facility] WBC 6.5 [facility] CA ECHO DOPPLER COMPLETEon 0 01-30-2025 [place] [address] Cardiology Report Signed Patient: ZACH CHAMORRO MR#: [id number] : 1945 Acct:[id number] Age/Sex: 79 / M ADM Date: 01/30/25 Loc: CARD Attending Dr: CASSANDRA JOSE Ordering Physician: CASSANDRA JOSE Date of Service: 01/30/25 Procedure(s): CA echo doppler complete Accession Number(s): [id number] cc: CASSANDRA JOSE; Blake Ng M.D. Patient Name: ZACH CHAMORRO MR#: [id number] : 1945 Exam Date: 01/30/2025 Ordering Doctor: [...] Gradient(Antegrade Flow): 38.27 (more content not included)... [facility] Radiology, Radiologist, MD - 01/30/2025 [place] [address] Cardiology Report Signed Patient: ZACH CHAMORRO MR#: [id number] : 1945 Acct:[id number] Age/Sex: 79 / M ADM Date: 01/30/25 Loc: CARD Attending Dr: CASSANDRA JOSE Ordering Physician: CASSANDRA JOSE Date of Service: 01/30/25 Procedure(s): CA echo doppler complete Accession Number(s): [id number] cc: CASSANDRA JOSE; Blake Ng M.D. Patient Name: ZACH CHAMORRO MR#: [id number] : 1945 Exam Date: 01/30/2025 Ordering Doctor: [...] Signed By: 01/30/25 1341 DD/ 1340 TD/TT: Home Companion: [facility] Radiology Study observation (narrative) [facility] CA ECHO DOPPLER COMPLETEOrde red By: Radiologist Radiology on 01-30-2025 [facility] E96 Work Phone: Office Visiton 01-19-2025 Follow-up visit [id number] Zach Chamorro 1945 M Date Provider Department Center 01/19/2025 CASSANDRA RAYO [facility] Hos Family History Problem Relation Age of Onset Stroke Mother Family Status - Relation Status Age at Mother Father Level of Service:27540 UT OFFICE/OUTPATIENT NEW HIGH MDM 60 MINUTES Normal [facility] Orders Onlyon 01-14-2025 Orders Only [id number] Zach Chamorro 1945 Date Provider Department Center 01/14/2025 [id number], HISTORICAL [facility] No family history on file Normal [facility] NM CARMEN PERF SPECT REST STRon 01-12-2025 [place] [id number] Nuclear Medicine Report Signed Patient: ZACH CHAMORRO MR#: [id number] : 1945 Acct:[id number] Age/Sex: 79 / M ADM Date: 01/09/25 Loc: NM Attending Dr: Blake Ng M.D. Ordering Physician: Blake Ng M.D. Date of Service: 01/09/25 Procedure(s): NM carmen perf SPECT rest str Accession Number(s): [id number] cc: Blake Ng M.D. Patient Name: ZACH CHAMORRO MR#: [id number] : 1945 Exam Date: 01/09/2025 Ordering Doctor: [...] the study was pending per attending physician [facility] . For more details please [...] Signed By: 01/12/25 1234 DD/ 1233 TD/TT: Home Companion: [facility] Radiology, Radiologist, - 01/12/2025 [place] [address] Nuclear Medicine Report Signed Patient: ZACH CHAMORRO MR#: [id number] : 1945 Acct:[id number] Age/Sex: 79 / M ADM Date: 01/09/25 Loc: NM Attending Dr: Blake Ng M.D. Ordering Physician: Blake Ng M.D. Date of Service: 01/09/25 Procedure(s): NM carmen perf SPECT rest str Accession Number(s): [id number] cc: Blake Ng M.D. Patient Name: ZACH CHAMORRO MR#: [id number] : 1945 Exam Date: 01/09/2025 Ordering Doctor: [...] the study was pending per attending physician [facility] . For more details please [...] Signed By: 01/12/25 1234 DD/ 1233 TD/TT: Home Companion: [facility] Radiology Study observation (narrative) [facility] NM CARMEN PERF SPECT REST STROr dered By: Radiologist Radiology on 01-12-2025 [facility] Work Phone: Urine Cytology ([facility])on 01-06-2025 Urine Cytology Diagnosis Info Invalid Interpretation Code [facility] Comment on above: Result Comment: A:Ur ine,Urine:Voided Interpretation - Adequate cellularity for evaluation. CPT 39112 MicroScopic Description - Adequacy - Gross Description Site ID:A color Yellow fixative Alcohol Specimen designated Urine received in alcohol preservative and labeled with the patient???s name, consists of 80ml clear yellow fluid. Electronically signed by : on: 01/06/2025 08:34:52 Performed By: #### 1 [id number] #### [facility] Laboratory [address] [place] [address] ECG 12-LEADon 12-31-2024 [place] [address] Electrocardiograph Report Signed Patient: ZACH CHAMORRO MR#: [id number] : 1945 Acct:[id number] Age/Sex: 79 / M ADM Date: 12/30/24 Loc: CT Attending Dr: Jermaine Jensen M.D. Ordering Physician: Jermaine Jensen M.D. Date of Service: 12/30/24 Procedure(s): ECG 12 lead Accession Number(s): [id number] cc: [facility] Test Date: 2024-12-30 Pat Name: ZACH CHAMORRO Department: Room: - Gender: Male Generation Manager: : 1945 Requested By: JERMAINE JENSEN Order Number: [id number] Reading MD: CASSANDRA JOSE M.D. Measurements Intervals Ruth Rate: 78 P: 26 UT: 188 QRS: -24 QRSD: 87 T: 91 QT: 359 QTc: 411 Interpretive Statements SINUS RHYTHM BORDERLINE LEFT AXIS DEVIATION [QRS AXIS < -20] NONSPECIFIC T-WAVE ABNORMALITY Compared to ECG 08/29/2017 10:21:07 T-wave abnormality now present Myocardial infarct finding no longer present Electronically Signed On 12-31-2024 7:01:15 EDT by CASSANDRA JOSE M.D. Dictated By: CASSANDRA JOSE Signed By: 12/31/24700 DD/ 0841 TD/TT: Home Companion: [facility] Radiology, Radiologist, MD - 12/31/2024 [place] [address] Electrocardiograph Report Signed Patient: ZACH CHAMORRO MR#: [id number] : 1945 Acct:[id number] Age/Sex: 79 / M ADM Date: 12/30/24 Loc: CT Attending Dr: Jermaine Jensen M.D. Ordering Physician: Jermaine Jensen M.D. Date of Service: 12/30/24 Procedure(s): ECG 12 lead Accession Number(s): [id number] cc: [facility] Test Date: 2024-12-30 Pat Name: ZACH CHAMORRO Department: Room: - Gender: Male Generation Manager: : 1945 Requested By: JERMAINE JENSEN Order Number: [id number] Reading MD: CASSANDRA JOSE M.D. Measurements Intervals Ruth Rate: 78 P: 26 UT: 188 QRS: -24 QRSD: 87 T: 91 QT: 359 QTc: 411 Interpretive Statements SINUS RHYTHM BORDERLINE LEFT AXIS DEVIATION [QRS AXIS < -20] NONSPECIFIC T-WAVE ABNORMALITY Compared to ECG 08/29/2017 10:21:07 T-wave abnormality now present Myocardial infarct finding no longer present Electronically Signed On 12-31-2024 7:01:15 EDT by CASSANDRA JOSE M.D. Dictated By: CASSANDRA JOSE Signed By: 12/31/24700 DD/ 0841 TD/TT: Home Companion: [facility] ECG 12-LEADOrdered By: Radio logist Radiology on 12-31-2024 [facility] Work Phone: ALL BASIC METABOLIC PANELon 12-30-2024 Anion gap [Moles/Vol] 12 mmol/L [facility] Calcium [Mass/Vol] 9.6 mg/dL 8.5 - 10. 1 mg/dL [facility] Chloride [Moles/Vol] 102 mmol/L 98 - 10 7 mmol/L [facility] CO2 [Moles/Vol] 30.3 mmol/L 21.0 - 32.0 mmol/L [facility] Creatinine [Mass/Vol] 0.73 mg/dL 0.70 - 1.30 mg/dL [facility] GFR/1.73 sq M.predicted CKD-EPI (S/P/Bld) [Vol rate/Area] >60 >=60 mL/min/1.73m 2 [facility] Glucose [Mass/Vol] 168 mg/dL High 74 - 106 mg/dL [facility] Interpretation and review of laboratory results Abnormal [facility] Potassium [Moles/Vol] 5.3 mmol/L High 3.5 - 5.1 mmol/L [facility] Sodium [Moles/Vol] 139 mmol/L 136 - 145 mmol/L [facility] TBH EGFR-NON AF ALBANIAN >60 >=60 mL/min/1.73m 2 [facility] Urea nitrogen [Mass/Vol] 20 mg/dL High 7.0 - 18.0 mg/dL [facility] Urea nitrogen/Creatinine [Mass ratio] 27.4 mg/mg [facility] CT ABDOMEN/PELVIS WO CONTo n 12-30-2024 [place] [address] CT Scan Report Signed Patient: ZACH CHAMORRO MR#: [id number] : 1945 Acct:[id number] Age/Sex: 79 / M ADM Date: 12/30/24 Loc: CT Attending Dr: Jermaine Jensen M.D. Ordering Physician: Jermaine Jensen M.D. Date of Service: 12/30/24 Procedure(s): CT abdomen pelvis wo con Accession Number(s): [id number] cc: Blake Ng M.D. [place] [address] Patient Name: ZACH CHAMORRO MRN: [facility]:[id number] date: 1945 Sex: M Assigned Patient Location: CT Current Patient Location: [facility] Accession/Order Number: [id number] Exam Date: 12/30/2024 11:04 Report Date: 12/30/2024 [...] Jr., DNunu 12/30/2024 11:06 AM Dictation Location: [place] [address] Electronically authenticated by: [id number] Y Date: 12/30/2024 11:06 Dictated By: Ritchie Cabrera M.D. Signed By: 12/30/24 1108 DD/ 1106 TD/TT: Home Companion: [facility] Radiology, Radiologist, - 12/30/[address] [address] [address] Scan Report Signed Patient: ZACH CHAMORRO MR#: [id number] : 1945 Acct:[id number] Age/Sex: 79 / M ADM Date: 12/30/24 Loc: CT Attending Dr: Jermaine Jensen M.D. Ordering Physician: Jermaine eJnsen M.D. Date of Service: 12/30/24 Procedure(s): CT abdomen pelvis wo con Accession Number(s): [id number] cc: Blake Ng M.D. [place] [id number] Patient Name: ZACH CHAMORRO MRN: [facility]:[id number] date: 1945 Sex: M Assigned Patient Location: CT Current Patient Location: [facility] Accession/Order Number: [id number] Exam Date: 12/30/2024 11:04 Report Date: 12/30/2024 [...] Jr., D.O. 12/30/2024 11:06 AM Dictation Location: [place] [address] Electronically authenticated by: [id number] Y Date: 12/30/2024 11:06 Dictated By: Ritchie Cabrera M.D. Signed By: 12/30/24 1108 DD/ 1106 TD/TT: Home Companion: [facility] Radiology Study observation (narrative) [facility] CT ABDOMEN/PELVIS WO CONTO rdered By: Radiologist Radiology on 12-30-2024 [facility] Work Phone: ECG 12-LEADon 12-30-2024 Radiology Study observation (narrative) [facility] Ambulatory Visit Summaryon 0 12-29-2024 Ambulatory Visit Summary Ambulatory Visit Summary ZACH CAHMORRO :1945 Visit Date:12/29/2024 Ambulatory Visit Instructions Your Diagnosis History of prostate cancer Kidney stone BPH with urinary obstruction Erectile dysfunction Gross hematuria Back pain Tests Performed CT Abdomen/Pelvis w/o Contrast -- Results Pending -- Please visit your patient portal for your results or contact your primary care physician. Your Care Team Attending Physician - MIKEY ARORA, Jermaine Cano Primary Care Physician - BLAKE NG MD [...] [facility] [address], [place] [address]- Medications What How Much When Instructions New [...] or concerns Pharmacy Information [facility]: [address] [facility] [address] [place], [place] [id number] [phone] Allergies No Known Allergies Problems Ongoing - [...] your experien (more content not included)... Normal [facility] Urine Cytology ([facility])on 0 12-29-2024 Method of Extraction Voided Normal [facility] Comment on above: Performed By: #### 1 [id number] #### [facility] Laboratory [address] Number of Jars 1 Invalid Interpretation Code [facility] Comment on above: Performed By: #### 1 [id number] #### [facility] Laboratory [address] [place] [id number] Specimen Urine Normal [facility] Comment on above: Performed By: #### 1 [id number] #### [facility] [address] [place] [address] Type of Service Technical Only Normal [facility] Comment on above: Performed By: #### 1 [id number] #### [facility] [address] [place] [address] Urology Office/Clinic Noteon 12-29-2024 Urology Office/Clinic Note [...] 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 Pt thought he might have passed a [...] to void. (more content not included)... Normal [facility] Comment on above: Result Comment: Elec tronically Signed By: Jermaine JENSEN MD\.br\Date and Time Signed: 12/29/24 09:27 EDT\.br\Electronically Co-Signed By: Felecia Sharma\.br\Date and Time Co-Signed: 12/29/24 09:23 EDT X-ray reportOrdered By: Aiden Franklin on 12-24-2024 Study report [facility] [place] [address] [place] [address] XRay Report Signed Patient: Zach Chamorro MR#: [id number] : 1945 Acct:[id number] Age/Sex: 79 / M ADM Date: 5 Loc: XD Room: Type: [facility] Attending Dr: Jermaine Jensen MD Copies to: [...] Franklin M.D. 12/24/2024 8:43 PM Dictation Location: [facility]--17 Transcribed By: [facility] 12/24/242042 Dictated By: Aiden Franklin II, MD 12/24/242041 Signed By: 12/24/242042 [facility] Work Phone: XR KUBon 12-24-2024 XR KUB [facility] [place] [address] [place] [address] XRay Report Signed Patient: Zach Chamorro MR#: [id number] : 1945 Acct:[id number] Age/Sex: 79 / M ADM Date: 12/24/24 Loc: XD Room: Type: [facility] Attending Dr: Jermaine Jensen MD Copies to: [...] Franklin M.D. 12/24/2024 8:43 PM Dictation Location: [facility]-17 Transcribed By: [facility] 12/24/242042 Dictated By: Aiden Franklin II, MD 12/24/242041 Signed By: 12/24/242042 Normal [facility] PSA Total (Not a Screen)on 0 10-28-2024 PSA Total (Not a Screen) 0.270 ng/mL Normal 0.000-4.000 [facility] Comment on above: Result Comment: Seri al tumor marker results determined by assays using different manufacturers or methods may not be comparable. [facility] Laboratory reproduction technician and method: [employer], CHEMILUMINESCENT IMMUNOASSAY. PERFORMED BY: [place] [address] PATHOLOGIST ALPINE GUIDE DELFINO MEJÍA M.D. Performed By: #### B MP, HEPATIC, A1C WTH eA, CBC, LIPID #### [place] [id number] [facility] XR Elbow - left 3 [facility] Result: Four views of the left elbow, AP/lateral/oblique/ra diocapitellar, taken today and saved to the permanent medical record. No acute osseous abnormalities, no fat pad sign. Joint spaces are preserved. Tiny osteophyte at the tip of the olecranon. [facility] Radiology Study observation (narrative) [facility] Hemoglobin a1c with eagon Glucose [Mass/Vol] 166 mg/dL [facility] HbA1c (Bld) [Mass fraction] 7.4 % High 4.3 - 5.6 % [facility] Comment on above: Increased risk for d iabetes: 5.7 - 6.4 diabetes: >6.4 glycemic control for adults with diabetes: <7.0 Interpretation and review of laboratory results Abnormal [facility] A1C with Estimated Average G luon 08-06-2024 Glucose [Mass/Vol] 166 mg/dL Normal [facility] Comment on above: Result Comment: PERF ORMED BY: [address] [address] PATHOLOGIST ALPINE GUIDE DELFINO MEJÍA M.D. Performed By: #### A 1C WTH eA, MG, BMP #### [address] HbA1c (Bld) [Mass fraction] 7.4 % High 4.3-5.6 [facility] Comment on above: Result Comment: Incr eased risk for diabetes: 5.7 - 6.4 diabetes: >6.4 glycemic control for adults with diabetes: <7.0 Performed By: #### A 1C WTH eA, MG, BMP #### [address] Basic Metabolic Panelon 07-13 Anion gap [Moles/Vol] 12.5 mmol/L Normal 6.0-15.0 e [facility] Comment on above: Performed By: #### A 1C WTH eA, MG, BMP #### [place] [address] [place] Calcium [Mass/Vol] 9.5 mg/dL Normal 8.6-10.3 [facility] Comment on above: Performed By: #### A 1C WTH eA, MG, BMP #### [place] [address] [place] Chloride [Moles/Vol] 100 mmol/L Normal 98-107 [facility] Comment on above: Performed By: #### A 1C WTH eA, MG, BMP #### [place] [address] [place] CO2 [Moles/Vol] 28.2 mmol/L Normal 21.0-31.0 [facility] Comment on above: Performed By: #### A 1C WTH eA, MG, BMP #### [place] [address] [place] Creatinine [Mass/Vol] 0.77 mg/dL Normal 0.70-1.30 [facility] Comment on above: Performed By: #### A 1C WTH eA, MG, BMP #### [place] [address] [place] GFR/1.73 sq M.predicted MDRD (S/P/Bld) [Vol rate/Area] mL/min/{1.73_m2} Normal [facility] Comment on above: Performed By: #### A Zachary ARCHER eA MG, BMP #### [facility] [address] Glucose [Mass/Vol] 189 mg/dL High 70-100 [facility] Comment on above: Result Comment: [place] Glucose Reference Range is dependent on time and content of last meal. Glucose of more than 200 mg/dL in a nonstressed, ambulatory subject supports the diagnosis of Diabetes Mellitus. ADA recommended reference range Performed By: #### A 1C GIANNI Barrett MG, BMP #### [address] Potassium [Moles/Vol] 4.7 mmol/L Normal 3.5-5.1 [facility] Comment on above: Performed By: #### A Zachary ARCHER eA MG, BMP #### [address] Sodium [Moles/Vol] 136 mmol/L Normal 136-145 [facility] Comment on above: Performed By: #### A 1C GIANNI Barrett MG, BMP #### [address] Urea nitrogen [Mass/Vol] 16 mg/dL Normal 7-25 [facility] Comment on above: Performed By: #### A 1C GIANNI Barrett MG, BMP #### [address] Basic metabolic 1998 panelon 08-06-2024 Anion gap [Moles/Vol] 12.5 mmol/L 6.0 - 15.0 meq/L [facility] Calcium [Mass/Vol] 9.5 mg/dL 8.6 - 10. 3 mg/dL [facility] Chloride [Moles/Vol] 100 mmol/L 98 - 10 7 mmol/L [facility] CO2 [Moles/Vol] 28.2 mmol/L 21.0 - 31.0 mmol/L [facility] Creatinine (U) [Mass/Vol] 0.77 mg/dL 0.70 - 1.30 mg/dL [facility] ESTIMATED GFR mL/Min [facility] Glucose [Mass/Vol] 189 mg/dL High 70 - 100 mg/dL [facility] Comment on above: Random Glucose Refer ence Range is dependent on time and content of last meal. Glucose of more than 200 mg/dL in a nonstressed, ambulatory subject supports the diagnosis of Diabetes Mellitus. ADA recommended reference range Potassium [Moles/Vol] 4.7 mmol/L 3.5 - 5.1 mmol/L [facility] Sodium [Moles/Vol] 136 mmol/L 136 - 145 mmol/L [facility] Urea nitrogen [Mass/Vol] 16 mg/dL 7 - 25 mg/dL [facility] Calcium [Mass/volume] in Ser um or PlasmaOrdered By: Blake Ng on 08-06-2024 Calcium [Mass/Vol] Calcium [Mass/volume ] in Serum or Plasma 8.6-10.3 [facility] Carbon dioxide, total [Moles /volume] in Serum or PlasmaOrdered By: Blake Ng on 08-06-2024 CO2 [Moles/Vol] Carbon dioxide, tota l [Moles/volume] in Serum or Plasma 21.0-31.0 [facility] Chloride [Moles/volume] in S luke or PlasmaOrdered By: Blake Ng on 08-06-2024 Chloride [Moles/Vol] Chloride [Moles/volume] in Serum or Plasma 98-107 [facility] Creatinine [Mass/volume] in Serum or PlasmaOrdered By: Blake Ng on 08-06-2024 Creatinine [Mass/Vol] Creatinine [Mass/volume] in Serum or Plasma 0.70-1.30 [facility] Creatinine [Mass/volume] in UrineOrdered By: Blake Ng on 08-06-2024 Creatinine (U) [Mass/Vol] Creatinine [Mass/volume] in Urine [facility] Comment on above: No reference range e stablished Glucose [Mass/volume] in Ser um or PlasmaOrdered By: Blake Ng on 08-06-2024 Glucose [Mass/Vol] Glucose [Mass/volume ] in Serum or Plasma High 70-100 [facility] Comment on above: ADA recommended refe rence rangeRandom Glucose Reference Range is dependent on time and content of last meal. Glucose of more than 200 mg/dL in a nonstressed, ambulatory subject supports the diagnosis of Diabetes Mellitus. Magnesiumon 08-06-2024 Magnesium [Mass/Vol] 1.5 mg/dL Low 1.9 - 2 .7 mg/dL [facility] Magnesium [Mass/Vol] 1.5 mg/dL Low 1.9-2.7 [facility] Comment on above: Result Comment: PERF ORMED BY: [place] [address] PATHOLOGIST ALPINE GUIDE DELFINO MEJÍA M.D. Performed By: #### A 1C WTH eA, MG, BMP #### [address] Magnesium [Mass/volume] in S luke or PlasmaOrdered By: Blake Ng on 08-06-2024 Magnesium [Mass/Vol] Magnesium [Mass/volume] in Serum or Plasma Low 1.9-2.7 [facility] MicroAlb Creat Ratio,Uon Albumin DL <= 20 mg/L (U) [Mass/Vol] 7.1 mg/dL High 0.0-1.8 [facility] Comment on above: Performed By: #### B MP, HEPATIC, A1C WTH eA, CBC, LIPID #### [facility] [address] Creatinine, Urine (Random) 81.00 mg/dL Normal [facility] Comment on above: Result Comment: No r eference range established Performed By: #### B MP, HEPATIC, A1C WTH eA, CBC, LIPID #### [facility] [address] Microalbumin/Creatinine Ratio 87.7 mg/g High 0.0-30.0 [facility] Comment on above: Result Comment: 30-3 00 mg/g indicates an increased risk for diabetic nephropathy. Greater than 300 mg/g is consistent with clinical nephropathy. (Am. J. Kidney Disease 1995, 25:107) PERFORMED BY: [place] [address] PATHOLOGIST ALPINE GUIDE DELFINO MEJÍA M.D. Performed By: #### B MP, HEPATIC, A1C WTH eA, CBC, LIPID #### [facility] [address] Microalbumin [Mass/volume] i n UrineOrdered By: Blake Ng on 08-06-2024 Albumin DL <= 20 mg/L (U) [Mass/Vol] Microalbumin [Mass/volume] in Urine High 0.0-1.8 [facility] Microalbumin/Creatinine rati o panel (U)on 08-06-2024 Albumin [Mass/Vol] 7.1 mg/dL High 0.0 - 1.8 mg/dL [facility] Creatinine spec 2 (U) [Mass/Vol] 81 mg/dL [facility] Comment on above: No reference range e stablished Interpretation and review of laboratory results Abnormal [facility] MICROALBUMIN/CREATININE RATIO 87.7 mg/g High 0.0 - 30.0 mg/g [facility] Comment on above: 30-300 mg/g indicate s an increased risk for diabetic nephropathy. Greater than 300 mg/g is consistent with clinical nephropathy. (Am. J. Kidney Disease 1995, 25:107) [facility] No Panel Informationon 08-06 Interpretation and review of laboratory results Abnormal [facility] No Panel InformationOrdered By: Blake Ng on 08-06-2024 Estimated GFR (CKD-EPI) > 60.0 mL/Min [facility] Creatinine Clearance (Chem N/A [facility] Potassium [Moles/volume] in Serum or PlasmaOrdered By: Blake Ng on 08-06-2024 Potassium [Moles/Vol] Potassium [Moles/volume] in Serum or Plasma 3.5-5.1 [facility] Serum or plasma anion gap de terminationOrdered By: Blake Ng on 08-06-2024 Anion gap [Moles/Vol] Serum or plasma an ion gap determination 6.0-15.0 [facility] Sodium [Moles/volume] in Ser um or PlasmaOrdered By: Blake Ng on 08-06-2024 Sodium [Moles/Vol] Sodium [Moles/volume ] in Serum or Plasma 136-145 [facility] Urea nitrogen [Mass/volume] in Serum or PlasmaOrdered By: Blake Ng on 08-06-2024 Urea nitrogen [Mass/Vol] Urea nitrogen [Mass/volume] in Serum or Plasma - [facility] Urine microalbumin/creatinin e mass ratioOrdered By: Blake Ng on 08-06-2024 Albumin/Creatinine DL <= 20 mg/L (U) [Mass ratio] Urine microalbumin/creatini ne mass ratio High 0.0-30.0 [facility] Comment on above: 30-300 mg/g indicate s an increased risk for diabetic nephropathy. Greater than 300 mg/g is consistent with clinical nephropathy. (Am. J. Kidney Disease 1995, 25:107) No Panel Informationon 07-21 [facility] XR Foot - left 3 [facility] Result: 3 views left foot: Weight-bearing: DP, oblique, lateral: 05/15/2024: There are no distinct or interval changes from most recent views of 04/14/2024. Again unremarkable for acute osseous or joint pathology. Unremarkable for any acute fragmentation or medial column collapse. 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 [facility] Radiology Study observation (narrative) [facility] PSA Total (Not a Screen)on 06-30-2023 PSA Total (Not a Screen) 0.400 ng/mL Normal 0.000-4.000 [facility] Comment on above: Result Comment: Seri al tumor marker results determined by assays using different manufacturers or methods may not be comparable. [facility] reproduction technician and method: TONA [employer] DXI, CHEMILUMINESCENT IMMUNOASSAY. PERFORMED BY: [place] [address] PATHOLOGIST ALPINE GUIDE DELFINO MEJÍA M.D. Performed By: #### P SATOTAL #### [address] XR Foot - left 3 [facility] [...] Mild loss of the medial column contour. [facility] Radiology Study observation (narrative) [facility] A1C with Estimated Average G vargasn 01-25-2024 Glucose [Mass/Vol] 140 mg/dL Normal [facility] Comment on above: Result Comment: PERF ORMED BY: [place] [address] PATHOLOGIST ALPINE GUIDE JUDY GARCIA M.D. Performed By: #### B MP, HEPATIC, A1C WTH eA, CBC, LIPID #### [place] [address] [place] Alanine aminotransferase [En zymatic activity/volume] in Serum or PlasmaOrdered By: Blake Ng on 01-25-2024 ALT [Catalytic activity/Vol] 20 U/L Normal 7-52 [facility] Comment on above: Performed By: #### B MP, HEPATIC, A1C WTH eA, CBC, LIPID #### [place] [address] [place] Albumin [Mass/volume] in Ser um or Plasma by Bromocresol green (BCG) dye binding methoOrdered By: Blake Ng on 01-25-2024 Albumin BCG dye [Mass/Vol] 4.4 g/dL 3.5-5.7 [facility] Alkaline phosphatase [Enzyma tic activity/volume] in Serum or PlasmaOrdered By: Blake Ng on 01-25-2024 ALP [Catalytic activity/Vol] 70 U/L Normal 34-104 [facility] Comment on above: Performed By: #### B MP, HEPATIC, A1C WTH eA, CBC, LIPID #### [place] [address] [place] Aspartate aminotransferase [ Enzymatic activity/volume] in Serum or PlasmaOrdered By: Blake Ng on 01-25-2024 AST [Catalytic activity/Vol] 19 U/L Normal 13-39 [facility] Comment on above: Performed By: #### B MP, HEPATIC, A1C WTH eA, CBC, LIPID #### [address] Automated basophil %Ordered By: Blake Ng on 01-25-2024 Basophils/100 WBC (Bld) 0.5 % Normal . [facility] Comment on above: Performed By: #### B MP, HEPATIC, A1C WTH eA, CBC, LIPID #### [address] Automated basophil countOrde red By: Blake Ng on 01-25-2024 Basophils (Bld) [#/Vol] 0.0 10*3/uL Normal 0.0-0.2 [facility] Comment on above: Result Comment: PERF ORMED BY: [place] [address] PATHOLOGIST ALPINE GUIDE JUDY GARCIA M.D. Performed By: #### B MP, HEPATIC, A1C WTH eA, CBC, LIPID #### [address] Automated blood monocyte cou ntOrdered By: Blake Ng on 01-25-2024 Monocytes (Bld) [#/Vol] 0.3 10*3/uL Normal 0.0-0.8 [facility] Comment on above: Performed By: #### B MP, HEPATIC, A1C WTH eA, CBC, LIPID #### [address] Automated eosinophil %Ordere d By: Blake Ng on 01-25-2024 Eosinophils/100 WBC (Bld) 5.1 % Normal . [facility] Comment on above: Performed By: #### B MP, HEPATIC, A1C WTH eA, CBC, LIPID #### [address] Automated eosinophil countOr dered By: Blake Ng on 01-25-2024 Eosinophils (Bld) [#/Vol] 0.3 10*3/uL Normal 0.0-0.45 [facility] Comment on above: Performed By: #### B MP, HEPATIC, A1C WTH eA, CBC, LIPID #### [facility] [address] Automated monocyte %Ordered By: Blake Ng on 01-25-2024 Monocytes/100 WBC (Bld) 5.0 % Normal . [facility] Comment on above: Performed By: #### B MP, HEPATIC, A1C WTH eA, CBC, LIPID #### [facility] [address] Automated neutrophil %Ordere d By: Blake Ng on 01-25-2024 Neutrophils/100 WBC (Bld) 72.3 % Normal . [facility] Comment on above: Performed By: #### B MP, HEPATIC, A1C WTH eA, CBC, LIPID #### [facility] [address] Basic Metabolic Panelon 01-09 GFR/1.73 sq M.predicted MDRD (S/P/Bld) [Vol rate/Area] mL/min/{1.73_m2} Normal [facility] Comment on above: Performed By: #### B MP, HEPATIC, A1C WTH eA, CBC, LIPID #### [facility] [address] Bilirubin.direct [Mass/volum e] in Serum or PlasmaOrdered By: Blake Ng on 01-25-2024 Bilirubin.direct [Mass/Vol] 0.10 mg/dL 0.03-0.18 [facility] Bilirubin.total [Mass/volume ] in Serum or PlasmaOrdered By: Blake Ng on 01-25-2024 Bilirubin [Mass/Vol] 0.7 mg/dL Normal 0.3-1.0 [facility] Comment on above: Performed By: #### B MP, HEPATIC, A1C WTH eA, CBC, LIPID #### [facility] [address] Calcium [Mass/volume] in Ser um or PlasmaOrdered By: Blake Ng on 01-25-2024 Calcium [Mass/Vol] 9.2 mg/dL Normal 8.6-10.3 [facility] Comment on above: Performed By: #### B MP, HEPATIC, A1C WTH eA, CBC, LIPID #### [facility] [address] [place] [id number] [place] Carbon dioxide, total [Moles /volume] in Serum or PlasmaOrdered By: Blake Ng on 01-25-2024 CO2 [Moles/Vol] 24.4 mmol/L Normal 21.0-31.0 [facility] Comment on above: Performed By: #### B MP, HEPATIC, A1C WTH eA, CBC, LIPID #### [facility] [address] [place] [address] [place] Chloride [Moles/volume] in S luke or PlasmaOrdered By: Blake Ng on 01-25-2024 Chloride [Moles/Vol] 105 mmol/L Normal 98-107 [facility] Comment on above: Performed By: #### B MP, HEPATIC, A1C WTH eA, CBC, LIPID #### [facility] [address] [place] [address] [place] Cholesterol [Mass/volume] in Serum or PlasmaOrdered By: Blake Ng on 01-25-2024 Cholesterol [Mass/Vol] 136 mg/dL Low 140-200 [facility] Comment on above: Chol less than 200 m g/dl low riskChol 201-239 mg/dl borderline riskChol 240 mg/dl and greater high risk Result Comment: Chol less than 200 mg/dl low risk Chol 201-239 mg/dl borderline risk Chol 240 mg/dl and greater high risk Performed By: #### B MP, HEPATIC, A1C WTH eA, CBC, LIPID #### [facility] [address] [place] [id number] [place] Cholesterol in LDL Calc [Mas s/Vol]Ordered By: Blake Ng on 01-25-2024 Cholesterol in LDL [Mass/Vol] 63 mg/dL 0-100 [facility] Comment on above: LDL ATP III CLASSIFI CATIONLDL less than 100 mg/dL OptimalLDL 100-129 mg/dL Near or above optimalLDL 130-159 mg/dL Borderline highLDL 160-189 mg/dL HighLDL greater than 189 mg/dL Very high Cholesterol in VLDL Calc [Ma ss/Vol]Ordered By: Blake Ng on 01-25-2024 Cholesterol in VLDL [Mass/Vol] 40 mg/dL [facility] Complete Blood Count Auto Di ffon 01-25-2024 Mean Corpuscular HGB Conc 35.0 g/dL Normal 32.5-35.6 [facility] Comment on above: Performed By: #### B MP, HEPATIC, A1C WTH eA, CBC, LIPID #### [facility] [address] NRBC% 0.1 /100{WBC} Normal 0-0.5 [facility] Comment on above: Performed By: #### B MP, HEPATIC, A1C WTH eA, CBC, LIPID #### [facility] [address] Creatinine [Mass/volume] in Serum or PlasmaOrdered By: Blake Ng on 01-25-2024 Creatinine [Mass/Vol] 1.02 mg/dL Normal 0.70-1.30 [facility] Comment on above: Performed By: #### B MP, HEPATIC, A1C WTH eA, CBC, LIPID #### [facility] [address] Erythrocyte distribution wid th [Ratio] by Automated countOrdered By: Blake Ng on 01-25-2024 Erythrocyte distribution width (RBC) [Ratio] 14.3 % Normal 12.0-14.8 [facility] Comment on above: Performed By: #### B MP, HEPATIC, A1C WTH eA, CBC, LIPID #### [facility] [address] [place] [address] [place] Erythrocytes [#/volume] in B lood by Automated countOrdered By: Blake Ng on 01-25-2024 RBC (Bld) [#/Vol] 3.58 10*6/uL Low 3.90-5.60 [facility] Comment on above: Performed By: #### B MP, HEPATIC, A1C WTH eA, CBC, LIPID #### [facility] [address] [place] [address] [place] Glucose [Mass/volume] in Ser um or PlasmaOrdered By: Blake Ng on 01-25-2024 Glucose [Mass/Vol] 126 mg/dL High 70-100 [facility] Comment on above: ADA recommended refe rence rangeRandom Glucose Reference Range is dependent on time and content of last meal. Glucose of more than 200 mg/dL in a nonstressed, ambulatory subject supports the diagnosis of Diabetes Mellitus. Result Comment: [place] om Glucose Reference Range is dependent on time and content of last meal. Glucose of more than 200 mg/dL in a nonstressed, ambulatory subject supports the diagnosis of Diabetes Mellitus. ADA recommended reference range Performed By: #### B MP, HEPATIC, A1C WTH eA, CBC, LIPID #### [facility] [address] Glucose mean value [Mass/vol ume] in Blood Estimated from glycated hemoglobinOrdered By: Blake Ng on 01-25-2024 Average glucose Estimated from glycated hemoglobin (Bld) [Mass/Vol] 140 mg/dL [facility] Hematocrit [Volume Fraction] of Blood by Automated countOrdered By: Blake Ng on 01-25-2024 Hematocrit (Bld) [Volume fraction] 34.0 % Low 38.8-50.0 [facility] Comment on above: Performed By: #### B MP, HEPATIC, A1C WTH eA, CBC, LIPID #### [facility] [address] Hemoglobin A1c percentageOrd ered By: Blake Ng on 01-25-2024 HbA1c (Bld) [Mass fraction] 6.5 % High 4.3-5.6 [facility] Comment on above: Increased risk for d iabetes: 5.7 - 6.4diabetes: >6.4glycemic control for adults with diabetes: <7.0 Result Comment: Incr eased risk for diabetes: 5.7 - 6.4 diabetes: >6.4 glycemic control for adults with diabetes: <7.0 Performed By: #### B MP, HEPATIC, A1C WTH eA, CBC, LIPID #### [facility] [address] [place] [id number] [place] Hemoglobin [Mass/volume] in BloodOrdered By: Blake Ng on 01-25-2024 Hemoglobin (Bld) [Mass/Vol] 11.9 g/dL Low 13.0-17.0 [facility] Comment on above: Performed By: #### B MP, HEPATIC, A1C WTH eA, CBC, LIPID #### [facility] [address] Hepatic Panelon 01-25-2024 Albumin [Mass/Vol] 4.4 g/dL Normal 3.5-5.7 [facility] Comment on above: Performed By: #### B MP, HEPATIC, A1C WTH eA, CBC, LIPID #### [facility] [address] Bilirubin,Indirect 0.6 mg/dL Normal [facility] Comment on above: Performed By: #### B MP, HEPATIC, A1C WTH eA, CBC, LIPID #### [facility] [address] Bilirubin.indirect [Mass/Vol] 0.10 mg/dL Normal 0.03-0.18 [facility] Comment on above: Performed By: #### B MP, HEPATIC, A1C WTH eA, CBC, LIPID #### [facility] [address] Leukocytes [#/volume] correc sonia for nucleated erythrocytes in Blood by Automated counOrdered By: Blake Ng on 01-25-2024 WBC corrected for nucl RBC Auto (Bld) [#/Vol] 5.6 10*3/uL 4.1-10.5 [facility] Leukocytes [#/volume] in Blo od by Automated countOrdered By: Blake Ng on 01-25-2024 WBC (Bld) [#/Vol] 5.6 10*3/uL Normal 4.1-10.5 [facility] Comment on above: Performed By: #### B MP, HEPATIC, A1C WTH eA, CBC, LIPID #### [facility] [address] Lipid Panelon 01-25-2024 LDL Cholesterol,Calculated 63 mg/dL Normal 0-100 [facility] Comment on above: Result Comment: LDL ATP III CLASSIFICATION LDL less than 100 mg/dL Optimal LDL 100-129 mg/dL Near or above optimal LDL 130-159 mg/dL Borderline high LDL 160-189 mg/dL High LDL greater than 189 mg/dL Very high Performed By: #### B MP, HEPATIC, A1C WTH eA, CBC, LIPID #### [facility] [address] Triglyceride w/Reflex 200 mg/dL High 0-149 [facility] Comment on above: Result Comment: TRIG ATP III CLASSIFICATION TRIG less than 150 mg/dL Normal TRIG 150-199 mg/dL Borderline high TRIG 200-500 mg/dL High TRIG greater than 500 mg/dL Very high Standard traceable to the Center for Disease Conrtrol and Prevention (CDC) test method. Performed By: #### B MP, HEPATIC, A1C WTH eA, CBC, LIPID #### [address] VLDL CHOLESTEROL 40 mg/dL Normal [facility] Comment on above: Performed By: #### B MP, HEPATIC, A1C WTH eA, CBC, LIPID #### [place] [address] [place] Lymphocytes [#/volume] in Bl ood by Automated countOrdered By: Blake Ng on 01-25-2024 Lymphocytes (Bld) [#/Vol] 1.0 10*3/uL Normal 1.00-4.8 [facility] Comment on above: Performed By: #### B MP, HEPATIC, A1C WTH eA, CBC, LIPID #### [place] [address] [place] Lymphocytes/100 leukocytes i n Blood by Automated countOrdered By: Blake Ng on 01-25-2024 Lymphocytes/100 WBC (Bld) 17.1 % Normal . [facility] Comment on above: Performed By: #### B MP, HEPATIC, A1C WTH eA, CBC, LIPID #### [facility] [address] [place] [address] [place] MCH [Entitic mass] by Automa sonia countOrdered By: Blake Ng on 01-25-2024 MCH (RBC) [Entitic mass] 33.3 pg Normal 27.5-35.2 [facility] Comment on above: Performed By: #### B MP, HEPATIC, A1C WTH eA, CBC, LIPID #### [facility] [address] [place] [address] MCHC Auto (RBC) [Mass/Vol]Or dered By: Blake Ng on 01-25-2024 MCHC (RBC) [Mass/Vol] 35.0 g/dL 32.5-35.6 [facility] MCV [Entitic volume] by Auto mated countOrdered By: Blake Ng on 01-25-2024 MCV (RBC) [Entitic vol] 95.1 fL Normal 83.5-101 F [facility] Comment on above: Performed By: #### B MP, HEPATIC, A1C WTH eA, CBC, LIPID #### [facility] [address] [place] [address] Neutrophils [#/volume] in Bl ood by Automated countOrdered By: Blake Ng on 01-25-2024 Neutrophils (Bld) [#/Vol] 4.1 10*3/uL Normal 1.8-7.7 [facility] Comment on above: Performed By: #### B MP, HEPATIC, A1C WTH eA, CBC, LIPID #### [facility] [address] [place] [address] No Panel InformationOrdered By: Blake Ng on 01-25-2024 Estimated GFR (CKD-EPI) > 60.0 mL/Min [facility] Creatinine Clearance (Chem N/A [facility] Nucleated erythrocytes [Pres ence] in Blood by Automated countOrdered By: Blake Ng on 01-25-2024 Nucleated RBC Auto Ql (Bld) 0.1 /100{WBC} 0-0.5 [facility] Platelet mean volume [Entiti c volume] in Blood by Automated countOrdered By: Blake Ng on 01-25-2024 Platelet mean volume (Bld) [Entitic vol] 6.6 fL Normal 6.6-10.1 [facility] Comment on above: Performed By: #### B MP, HEPATIC, A1C WTH eA, CBC, LIPID #### [facility] [address] Platelets [#/volume] in Bloo d by Automated countOrdered By: Blake Ng on 01-25-2024 Platelets (Bld) [#/Vol] 139 10*3/uL Low 150-450 [facility] Comment on above: Performed By: #### B MP, HEPATIC, A1C WTH eA, CBC, LIPID #### [facility] [address] Potassium [Moles/volume] in Serum or PlasmaOrdered By: Blake Ng on 01-25-2024 Potassium [Moles/Vol] 4.5 mmol/L Normal 3.5-5.1 [facility] Comment on above: Performed By: #### B MP, HEPATIC, A1C WTH eA, CBC, LIPID #### [address] Protein [Mass/volume] in Ser um or PlasmaOrdered By: Blake Ng on 01-25-2024 Protein [Mass/Vol] 6.5 g/dL Normal 6.4-8.9 [facility] Comment on above: Performed By: #### B MP, HEPATIC, A1C WTH eA, CBC, LIPID #### [address] Serum globulin measurement b y calculation (mass/volume)Ordered By: Blake Ng on 01-25-2024 Globulin (S) [Mass/Vol] 2.1 g/dL Normal [facility] Comment on above: Performed By: #### B MP, HEPATIC, A1C WTH eA, CBC, LIPID #### [facility] [address] Serum or plasma albumin/glob ulin mass ratioOrdered By: Blake Ng on 01-25-2024 Albumin/Globulin [Mass ratio] 2.1 {ratio} Normal [facility] Comment on above: Performed By: #### B MP, HEPATIC, A1C WTH eA, CBC, LIPID #### [facility] [address] [place] [address] Serum or plasma anion gap de terminationOrdered By: Blake Ng on 01-25-2024 Anion gap [Moles/Vol] 13.1 mmol/L Normal 6.0-15.0 [facility] Comment on above: Performed By: #### B MP, HEPATIC, A1C WTH eA, CBC, LIPID #### [facility] [address] Serum or plasma high density lipoprotein (HDL) cholesterol measurementOrdered By: Blake Ng on 01-25-2024 Cholesterol in HDL [Mass/Vol] 33 mg/dL Normal 23-92 [facility] Comment on above: HDL CHOL ATP-III CLA SSIFICATION Cardiovascular RiskHDL > or equal to 60 mg/dL LOWHDL < 40 mg/dL HIGH Result Comment: HDL CHOL ATP-III CLASSIFICATION Cardiovascular Risk HDL > or equal to 60 mg/dL LOW HDL < 40 mg/dL HIGH Performed By: #### B MP, HEPATIC, A1C WTH eA, CBC, LIPID #### [facility] [address] Serum or plasma non-glucuron idated bilirubin measurement (mass/volume)Ordered By: Blake Ng on 01-25-2024 Bilirubin.indirect [Mass/Vol] 0.6 mg/dL [facility] Serum or plasma total choles terol/high density lipoprotein (HDL) cholesterol mass ratOrdered By: Blake Ng on 01-25-2024 Cholesterol.total/Kassy sterol in HDL [Mass ratio] 4.1 {ratio} Normal <5.0 [facility] Comment on above: Result Comment: PERF ORMED BY: [place] [address] PATHOLOGIST [employer] JUDY GARCIA M.D. Performed By: #### B MP, HEPATIC, A1C WTH eA, CBC, LIPID #### [facility] [address] Sodium [Moles/volume] in Ser um or PlasmaOrdered By: Blake Ng on 01-25-2024 Sodium [Moles/Vol] 138 mmol/L Normal 136-145 [facility] Comment on above: Performed By: #### B MP, HEPATIC, A1C WTH eA, CBC, LIPID #### [facility] [address] Triglyceride [Mass/volume] i n Serum or PlasmaOrdered By: Blake Patrickjewels on 01-25-2024 Triglyceride [Mass/Vol] 200 mg/dL High 0-149 [facility] Comment on above: TRIG ATP III CLASSIF ICATIONTRIG less than 150 mg/dL NormalTRIG 150-199 mg/dL Borderline highTRIG 200-500 mg/dL High TRIG greater than 500 mg/dL Very highStandard traceable to the Center for Disease Conrtrol and Prevention (CDC) test method. Urea nitrogen [Mass/volume] in Serum or PlasmaOrdered By: Blake Ng on 01-25-2024 Urea nitrogen [Mass/Vol] 26 mg/dL High 7- [facility] Comment on above: Performed By: #### B MP, HEPATIC, A1C WTH eA, CBC, LIPID #### [facility] [address] Prostate specific Ag [Mass/v olume] in Serum or PlasmaOrdered By: Reshmalemeliton Pina on 12-19-2023 Prostate specific Ag [Mass/Vol] 0.800 ng/mL 0.000-4.000 [facility] Comment on above: Serial tumor marker results determined by assays using different manufacturers or methods may not be comparable.[facility] [employer] reproduction technician and method:[employer] DXI, CHEMILUMINESCENT IMMUNOASSAY. Prostate specific Ag [Mass/v olume] in Serum or PlasmaOrdered By: Reshmaleena Silvana on 09-12-2023 Prostate specific Ag [Mass/Vol] 0.400 ng/mL 0.000-4.000 [facility] Comment on above: Serial tumor marker results determined by assays using different manufacturers or methods may not be comparable.[facility] [employer] reproduction technician and method:[employer] DXI, CHEMILUMINESCENT IMMUNOASSAY. Prostate specific Ag [Mass/v olume] in Serum or PlasmaOrdered By: Norleena Silvana on 06-06-2023 Prostate specific Ag [Mass/Vol] 0.680 ng/mL 0.000-4.000 [facility] Comment on above: Serial tumor marker results determined by assays using different manufacturers or methods may not be comparable.[facility] [employer] reproduction technician and method:[employer], CHEMILUMINESCENT IMMUNOASSAY. Prostate Specific Ag Free [M ass/volume] in Serum or PlasmaOrdered By: Jermaine Jensen on 12-05-2022 Free PSA [Mass/Vol] 0.540 ng/mL [facility] Prostate specific Ag [Mass/v olume] in Serum or PlasmaOrdered By: Jermaine Jensen on 12-05-2022 Prostate specific Ag [Mass/Vol] 1.590 ng/mL 0.000-4.000 [facility] Serum or plasma free prostat e specific antigen (PSA)/total PSA ratioOrdered By: Jermaine Jensen on 12-05-2022 Free PSA/Total PSA [Mass fraction] 33.9 % [facility] Comment on above: Based on the work [...] Prostate specific Ag [Mass/Vol] 2.090 ng/mL 0.000-4.000 [facility] GLYCOHEMOGLOBIN A1Con 2022 ADA RECOMMENDATION SEE BELOW Normal [facility] Comment on above: Result Comment: ADA RECOMMENDED LIMIT 4.0 - 6.0 ADA THERAPEUTIC TARGET < 7.0 ACTION SUGGESTED > 7.0 Performed By: #### A 1C #### [facility] [address] [address] [address] Sary Elkins Glucose [Mass/Vol] 163 mg/dL Normal [facility] Comment on above: Performed By: #### A 1C #### [facility] [address] [place], [place] [address] Dr. Sary Elkins HbA1c (Bld) [Mass fraction] 7.3 % Critically high 4.5-6.2 [facility] Comment on above: Performed By: #### A 1C #### [facility] [address] [address] [address] Sary Elkins Glucose Glucometer (BldC) [M ass/Vol]Ordered By: Rosy Pina on 05-15-2022 Glucose [Mass/Vol] 157 mg/dL [facility] Comment on above: Random Glucose Refer ence Range is dependent on time and content of last meal. Glucose of more than 200 mg/dL in a nonstressed, ambulatory subject supports the diagnosis of Diabetes Mellitus. Basophils Auto (Bld) [#/Vol] Ordered By: Rosy Pina on 05-08-2022 Basophils (Bld) [#/Vol] 0.0 10*3/uL 0.0-0.2 [facility] Basophils/100 WBC Auto (Bld) Ordered By: Rosy Pina on 05-08-2022 Basophils/100 WBC (Bld) 0.4 % . [facility] Creatinine and Glomerular fi ltration rate.predicted panel (S/P/Bld)Ordered By: Rosy Pina on 05-08-2022 Creatinine [Mass/Vol] 0.84 mg/dL 0.64-1.27 [facility] Eosinophils Auto (Bld) [#/Vo l]Ordered By: Rosy Pina on 05-08-2022 Eosinophils (Bld) [#/Vol] 0.3 10*3/uL 0.0-0.45 [facility] Eosinophils/100 WBC Auto (Bl d)Ordered By: Rosy Pina on 05-08-2022 Eosinophils/100 WBC (Bld) 5.1 % . [facility] Erythrocyte distribution wid th Auto (RBC) [Ratio]Ordered By: Rosy Pina on 05-08-2022 Erythrocyte distribution width (RBC) [Ratio] 14.3 % 12.0-14.8 [facility] Estimated glomerular filtrat ion rate (GFR) non- AmericanOrdered By: Rosy Pina on 05-08-2022 GFR/1.73 sq M.predicted among non-blacks MDRD (S/P/Bld) [Vol rate/Area] > 60 mL/Min [facility] Hematocrit Auto (Bld) [Volum e fraction]Ordered By: Rosy Pina on 05-08-2022 Hematocrit (Bld) [Volume fraction] 37.5 % 38.8-50.0 [facility] Hemoglobin [Mass/volume] in BloodOrdered By: Rosy Pina on 05-08-2022 Hemoglobin (Bld) [Mass/Vol] 12.9 g/dL 13.0-17.0 [facility] Laboratory - Hematology and Cell countsOrdered By: Rosy Pina on 05-08-2022 Nucleated RBC/100 WBC (Bld) [Ratio] 0.0 % 0-0.5 [facility] Leukocytes [#/volume] in Blo od by Automated countOrdered By: Rosy Pina on 05-08-2022 WBC (Bld) [#/Vol] 5.7 10*3/uL 4.5-11.0 [facility] Lymphocytes Auto (Bld) [#/Vo l]Ordered By: Rosy Pina on 05-08-2022 Lymphocytes (Bld) [#/Vol] 1.2 10*3/uL 1.00-4.8 [facility] Lymphocytes/100 WBC Auto (Bl d)Ordered By: Rosy Pina on 05-08-2022 Lymphocytes/100 WBC (Bld) 20.5 % . [facility] MCH Auto (RBC) [Entitic mass ]Ordered By: Rosy Pina on 05-08-2022 MCH (RBC) [Entitic mass] 31.8 pg 27.5-35.2 [facility] MCHC Auto (RBC) [Mass/Vol]Or dered By: Rosy Pina on 05-08-2022 MCHC (RBC) [Mass/Vol] 34.4 g/dL 32.5-35.6 [facility] MCV Auto (RBC) [Entitic vol] Ordered By: Rosy Pina on 05-08-2022 MCV (RBC) [Entitic vol] 92.4 fL 83.5-101 F [facility] Monocytes Auto (Bld) [#/Vol] Ordered By: Rosy Pina on 05-08-2022 Monocytes (Bld) [#/Vol] 0.3 10*3/uL 0.0-0.8 [facility] Monocytes/100 WBC Auto (Bld) Ordered By: Rosy Pina on 05-08-2022 Monocytes/100 WBC (Bld) 4.5 % . F [facility] Neutrophils Auto (Bld) [#/Vo l]Ordered By: Rosy Pina on 05-08-2022 Neutrophils (Bld) [#/Vol] 4.0 10*3/uL 1.8-7.7 [facility] Neutrophils/100 WBC Auto (Bl d)Ordered By: Rosy Pina on 05-08-2022 Neutrophils/100 WBC (Bld) 69.5 % . [facility] No Panel InformationOrdered By: Rosy Pina on 05-08-2022 Estimated GFR () > 60 mL/Min [facility] Comment on above: GFR estimated refere nce range: According to KDOQI guidelines, <60 ml/min/1.73m2 is sufficient to diagnose a patient with chronic kidney disease. Pharmacy Creatinine Clearance (Chem N/A [facility] Platelet mean volume Auto (B ld) [Entitic vol]Ordered By: Rosy Pina on 05-08-2022 Platelet mean volume (Bld) [Entitic vol] 6.9 fL 6.6-10.1 [facility] Platelets Auto (Bld) [#/Vol] Ordered By: Rosy Pina on 05-08-2022 Platelets (Bld) [#/Vol] 148 10*3/uL 150-450 [facility] RBC Auto (Bld) [#/Vol]Ordere d By: Rosy Pina on 05-08-2022 RBC (Bld) [#/Vol] 4.05 10*6/uL 3.90-5.60 [facility] Serum or plasma anion gap de terminationOrdered By: Rosy Pina on 05-08-2022 Anion gap [Moles/Vol] 16.6 mmol/L 6.0-15.0 [facility] Serum or plasma calcium jose e urement (mass/volume)Ordered By: Rosy Pina on 05-08-2022 Calcium [Mass/Vol] 9.7 mg/dL 8.2-10.2 [facility] Serum or plasma chloride erika surement (moles/volume)Ordered By: Rosy Pina on 05-08-2022 Chloride [Moles/Vol] 99 mmol/L 95-114 [facility] Serum or plasma glucose jose e urement (mass/volume)Ordered By: Rosy Pina on 05-08-2022 Glucose [Mass/Vol] 132 mg/dL 70-100 [facility] Comment on above: ADA recommended refe rence rangeRandom Glucose Reference Range is dependent on time and content of last meal. Glucose of more than 200 mg/dL in a nonstressed, ambulatory subject supports the diagnosis of Diabetes Mellitus. Serum or plasma potassium me asurement (moles/volume)Ordered By: Rosy Pina on 05-08-2022 Potassium [Moles/Vol] 4.5 mmol/L 3.5-5.1 [facility] Serum or plasma sodium measu rement (moles/volume)Ordered By: Rosy Pina on 05-08-2022 Sodium [Moles/Vol] 135 mmol/L 136-146 [facility] Serum or plasma total carbon dioxide measurement (moles/volume)Ordered By: Rosy Pina on 05-08-2022 CO2 [Moles/Vol] 23.9 mmol/L 22.0-30.0 [facility] Serum or plasma urea nitroge n measurement (mass/volume)Ordered By: Rosy Pina on 05-08-2022 Urea nitrogen [Mass/Vol] 15 mg/dL 03-03 [facility] Creatinine (Bld) [Mass/Vol]O rdered By: Jermaine Jensen on 03-01-2022 Creatinine [Mass/Vol] 1.0 mg/dL 0.6-1.3 [facility] Comment on above: ER/ESD physician is notified/shown all ISTAT results. Critical values may be confirmed by laboratory testing if deemed necessary by ER attending doctor. ER/ESD physician is notified/shown all ISTAT results.Critical values may be confirmed by laboratory testing ifdeemed necessary by ER attending doctor. No Panel InformationOrdered By: Jermaine Jensen on 03-01-2022 POC Estimated GFR > 60 [facility] Comment on above: GFR estimated refere nce range: According to KDOQI guidelines, <60 ml/min/1.73m2 is sufficient to diagnose a patient with chronic kidney disease. POC Estimated GFR Non- Amer > 60 [facility] MICROALBUMIN URINEon 022 Albumin, Urine 63.5 ug/mL Normal Not Estab. [facility] Comment on above: Performed By: #### M ALBLC #### [facility] [address] [place] [address] Dr. Sary Elkins CBC AUTO DIFFon 01-17-2022 BASO # 0.1 103/ul Normal 0.0-0.1 [facility] Comment on above: Performed By: #### C BC #### [facility] [address] [place] [address] Dr. Sary Elkins Basophils/100 WBC (Bld) 0.7 % Normal 0.2-2.0 [facility] Comment on above: Performed By: #### C BC #### [facility] [address] [place] [address] Dr. Sary Elkins EO # 0.5 103/ul Normal 0.0-0.7 [facility] Comment on above: Performed By: #### C BC #### [facility] [address] [place] [address] Dr. Sary Elkins Eosinophils/100 WBC (Bld) 6.9 % Normal 0.9-7.0 [facility] Comment on above: Performed By: #### C BC #### [facility] [address] [place] [address] Dr. Sary Elkins Erythrocyte distribution width (RBC) [Ratio] 14.0 % Normal 11.0-15.0 [facility] Comment on above: Performed By: #### C BC #### [facility] [address] [place] [address] Dr. Sary Elkins Hematocrit (Bld) [Volume fraction] 34.2 % Critically low 42.0-54.0 [facility] Comment on above: Performed By: #### C BC #### [facility] [address] [place] [address] Dr. Sary Elkins Hemoglobin (Bld) [Mass/Vol] 11.8 g/dL Critically low 14.0-18.0 [facility] Comment on above: Performed By: #### C BC #### [facility] [address] [place] [address] Dr. Sary Elkins IG # 0.02 10e3/ul Normal 0.00-0.03 [facility] Comment on above: Performed By: #### C BC #### [facility] [address] [place] [address] Dr. Sary Elkins IG % 0.3 % Normal 0.0-0.5 [facility] Comment on above: Performed By: #### C BC #### [facility] [address] [place] [address] Dr. Sary Elkins LYMPH # 1.5 103/ul Normal 1.2-3.8 [facility] Comment on above: Performed By: #### C BC #### [facility] [address] [place] [address] Dr. Sary Elkins Lymphocytes/100 WBC (Bld) 21.6 % Normal 20.5-60.0 [facility] Comment on above: Performed By: #### C BC #### [facility] [address] [place] [address] Dr. Sary Elkins MANUAL DIFF REQ NO Normal [facility] Comment on above: Performed By: #### C BC #### [facility] [address] [place] [address] Dr. Sary Elkins MCH (RBC) [Entitic mass] 32.7 pg Normal 25.9-34.0 [facility] Comment on above: Performed By: #### C BC #### [facility] [address] [place] [address] Dr. Sary Elkins MCHC (RBC) [Mass/Vol] 34.5 g/dL Normal 29.9-35.2 [facility] Comment on above: Performed By: #### C BC #### [facility] [address] [place] [address] Dr. Sary Elkins MCV (RBC) [Entitic vol] 94.7 fL Critically high 80.0-94 .0 [facility] Comment on above: Performed By: #### C BC #### [facility] [address] [address] [address] Sary Elkins MONO # 0.4 103/ul Normal 0.3-0.8 [facility] Comment on above: Performed By: #### C BC #### [facility] [address] [place] [address] Dr. Sary Elkins Monocytes/100 WBC (Bld) 5.3 % Normal 1.7-12.0 [facility] Comment on above: Performed By: #### C BC #### [facility] [address] [place] [address] Dr. Sary Elkins NEUT # 4.5 103/ul Normal 1.4-6.5 [facility] Comment on above: Performed By: #### C BC #### [facility] [address] [place] [address] Dr. Sary Elkins Neutrophils/100 WBC (Bld) 65.2 % Normal 43.0-75.0 [facility] Comment on above: Performed By: #### C BC #### [facility] [address] [place] [address] Dr. Sary Elkins Platelet mean volume (Bld) [Entitic vol] 9.2 fL Critically low 9.5-13.5 [facility] Comment on above: Performed By: #### C BC #### [facility] [address] [place] [address] Dr. Sary Elkins PLT 137 103/ul Critically low 150-450 [facility] Comment on above: Performed By: #### C BC #### [facility] [address] [place] [address] Dr. Sary Elkins RBC 3.61 106/ul Critically low 4.70-6.10 [facility] Comment on above: Performed By: #### C BC #### [facility] [address] [place] [address] Dr. Sary Elkins WBC 6.8 103/ul Normal 4.0-11.0 [facility] Comment on above: Performed By: #### C BC #### [facility] [address] [address] [address] Sary Elkins GLYCOHEMOGLOBIN A1Con 2021 ADA RECOMMENDATION SEE BELOW Normal [facility] Comment on above: Result Comment: ADA RECOMMENDED LIMIT 4.0 - 6.0 ADA THERAPEUTIC TARGET < 7.0 ACTION SUGGESTED > 7.0 Performed By: #### A 1C #### [facility] [address] [place] [address] Dr. Sary Elkins Glucose [Mass/Vol] 137 mg/dL Normal [facility] Comment on above: Performed By: #### A 1C #### [facility] [address] [place] [address] Dr. Sary Elkins HbA1c (Bld) [Mass fraction] 6.4 % Critically high 4.5-6.2 [facility] Comment on above: Performed By: #### A 1C #### [facility] [address] [place] [address] Dr. Sary Elkins LIPID PROFILEon 01-17-2022 CHOL-HDL RATIO NORM SEE BELOW Normal [facility] Comment on above: Result Comment: 3.3 - 4.4 LOW RISK 4.4 - 7.1 AVERAGE RISK 7.1 - 11.0 MODERATE RISK >11.0 HIGH RISK Performed By: #### B MP, AST, ALT, LIPID #### [facility] [address] [place] [address] Dr. Sary Elkins Cholesterol [Mass/Vol] 124 mg/dL Normal <=200 [facility] Comment on above: Performed By: #### B MP, AST, ALT, LIPID #### [facility] [address] [place] [address] Dr. Sary Elkins Cholesterol in HDL [Mass/Vol] 28 mg/dL Critically low 40-60 [facility] Comment on above: Performed By: #### B MP, AST, ALT, LIPID #### [facility] [address] [address] [address] Sayr Elkins Cholesterol in LDL [Mass/Vol] 41.0 mg/dL Normal [facility] Comment on above: Performed By: #### B MP, AST, ALT, LIPID #### [facility] [address] [address] [address] Sary Elkins Cholesterol.total/Kassy sterol in HDL [Mass ratio] 4.4 {ratio} Normal [facility] Comment on above: Performed By: #### B MP, AST, ALT, LIPID #### [facility] [address] [address] [address] Sary Elkins HDL NORMAL > or = 60 mg/dl - LO W CARDIOVASCULAR RISK <40 mg/dl - HIGH CARDIOVASCULAR RISK Normal [facility] Comment on above: Performed By: #### B MP, AST, ALT, LIPID #### [facility] [address] [place] [address] Dr. Sary Elkins LDL CALC NORMAL SEE BELOW Normal [facility] Comment on above: Result Comment: <100 mg/dl OPTIMAL 100 - 129 mg/dl NEAR OR ABOVE OPTIMAL 130 - 159 mg/dl BORDERLINE HIGH 160 - 189 mg/dl HIGH >190 mg/dl VERY HIGH Performed By: #### B MP, AST, ALT, LIPID #### [facility] [address] [address] [address] Sary Elkins Triglyceride [Mass/Vol] 275 mg/dL Critically high <=150 [facility] Comment on above: Performed By: #### B MP, AST, ALT, LIPID #### [facility] [address] [address] [address] Sary Elkins VLDL CALC 55.0 mg/dL Normal [facility] Comment on above: Performed By: #### B MP, AST, ALT, LIPID #### [facility] [address] [address] [address] Sary Elkins PROF CHEM 8 (BAS METB)on Anion gap [Moles/Vol] 17.0 mmol/L Normal [facility] Comment on above: Performed By: #### B MP, AST, ALT, LIPID #### [facility] [address] [address] [address] Sary Elkins Calcium [Mass/Vol] 9.0 mg/dL Normal 8.5-10.1 [facility] Comment on above: Performed By: #### B MP, AST, ALT, LIPID #### [facility] [address] [address] [address] Sary Elkins Chloride [Moles/Vol] 101 mmol/L Normal 98-107 [facility] Comment on above: Performed By: #### B MP, AST, ALT, LIPID #### [facility] [address] [place] [address] Dr. Sary Elkins CO2 [Moles/Vol] 24.7 mmol/L Normal 21.0-32.0 [facility] Comment on above: Performed By: #### B MP, AST, ALT, LIPID #### [facility] [address] [place] [address] Dr. Sary Elkins Creatinine [Mass/Vol] 1.22 mg/dL Normal 0.70-1.30 [facility] Comment on above: Performed By: #### B MP, AST, ALT, LIPID #### [facility] [address] [place] [address] Dr. Sary Elkins EGFR-AF ALBANIAN >60 Normal >=60 [facility] Comment on above: Performed By: #### B MP, AST, ALT, LIPID #### [facility] [address] [place] [address] Dr. Sary Elkins EGFR-NON AF ALBANIAN 58 mL/min/1.73m2 Critically low >=60 [facility] Comment on above: Performed By: #### B MP, AST, ALT, LIPID #### [facility] [address] [place] [address] Dr. Sary Elkins Glucose [Mass/Vol] 155 mg/dL Critically high 74-106 [facility] Comment on above: Performed By: #### B MP, AST, ALT, LIPID #### [facility] [address] [address] [address] Sary Elkins Potassium [Moles/Vol] 4.7 mmol/L Normal 3.5-5.1 [facility] Comment on above: Performed By: #### B MP, AST, ALT, LIPID #### [facility] [address] [place] [address] Dr. Sary Elkins Sodium [Moles/Vol] 138 mmol/L Normal 136-145 [facility] Comment on above: Performed By: #### B MP, AST, ALT, LIPID #### [facility] [address] [place] [address] Dr. Sary Elkins Urea nitrogen [Mass/Vol] 25.0 mg/dL Critically high 7.0-18.0 [facility] Comment on above: Performed By: #### B MP, AST, ALT, LIPID #### [facility] [address] [place] [address] Dr. Sary Elkins Urea nitrogen/Creatinine [Mass ratio] 20.5 mg/mg Normal [facility] Comment on above: Performed By: #### B MP, AST, ALT, LIPID #### [facility] [address] [place] [address] Dr. Sary Garg 01-17-2022 AST [Catalytic activity/Vol] 23 U/L Normal 15-37 [facility] Comment on above: Performed By: #### B MP, AST, ALT, LIPID #### [facility] [address] [place] [address] Dr. Sary Elkins SGPTon 01-17-2022 ALT [Catalytic activity/Vol] 33 U/L Normal 16-63 [facility] Comment on above: Performed By: #### B MP, AST, ALT, LIPID #### [facility] [address] [place] [address] Dr. Sary Elkins XR KUB 1 VIEWon [...] by: ISABELLA FULLER Date: 2021-12-16 15:58 Normal [facility] CNCOon 11-08-2021 CNCO Letter Text Normal [facility] No Panel Information [facility] Vital Signs Date Time Vital Sign Value Performing Clinician Facility 02-03-2025 10:52-0400 Body height 188 cm Blake Ng MD Work Phone: [facility] 02-03-2025 10:52-0400 Body mass index (BMI) [Ratio] 25.42 kg/m2 Blake Ng MD Work Phone: [facility] 02-03-2025 10:52-0400 Body temperature 97.11 [degF] Blake Ng MD Work Phone: [facility] 02-03-2025 10:52-0400 Body weight 89.81 kg Blake Ng MD Work Phone: [facility] 02-03-2025 10:52-0400 Diastolic blood pressure 54 mm[Hg] Blake Ng MD Work Phone: [facility] 02-03-2025 10:52-0400 Heart rate 79 /min Blake Ng MD Work Phone: [facility] 02-03-2025 10:52-0400 Respiratory rate 18 /min Blake Ng MD Work Phone: [facility] 02-03-2025 10:52-0400 SaO2% (BldA) [Mass fraction] 96 % Blake Ng MD Work Phone: [facility] 02-03-2025 10:52-0400 Systolic blood pressure 148 mm[Hg] Blake Ng MD Work Phone: [facility] 01-26-2025 09:22-0400 Body height 188 cm Isabella Rusher DPM Work Phone: [facility] 01-26-2025 09:22-0400 Body mass index (BMI) [Ratio] 25.16 kg/m2 Isabella Powell DPM Work Phone: [facility] 01-26-2025 09:22-0400 Body weight 88.91 kg Isabella Powell DPM Work Phone: [facility] 01-02-2025 11:48-0400 Body height 188 cm Blake Ng MD Work Phone: [facility] 01-02-2025 11:48-0400 Body mass index (BMI) [Ratio] 25.16 kg/m2 Blake Ng MD Work Phone: [facility] 01-02-2025 11:48-0400 Body temperature 97.11 [degF] Blake Ng MD Work Phone: [facility] 01-02-2025 11:48-0400 Body weight 88.91 kg Blake Ng MD Work Phone: [facility] 01-02-2025 11:48-0400 Diastolic blood pressure 54 mm[Hg] Blake Ng MD Work Phone: [facility] 01-02-2025 11:48-0400 Heart rate 89 /min Blake Ng MD Work Phone: [facility] 01-02-2025 11:48-0400 Respiratory rate 18 /min Blake Ng MD Work Phone: [facility] 01-02-2025 11:48-0400 SaO2% (BldA) [Mass fraction] 98 % Blake Ng MD Work Phone: [facility] 01-02-2025 11:48-0400 Systolic blood pressure 112 mm[Hg] Blake Ng MD Work Phone: [facility] 10-20-2024 12:00-0400 Body height 188 cm Jaycob Dill DO Work Phone: [facility] 10-20-2024 12:00-0400 Body mass index (BMI) [Ratio] 26.71 kg/m2 Jaycob Dill DO Work Phone: [facility] 10-20-2024 12:00-0400 Body weight 94.35 kg Jaycob Dill DO Work Phone: [facility] 10-13-2024 09:16-0400 Body height 188 cm Isabella Powell DPM Work Phone: [facility] 10-13-2024 09:16-0400 Body mass index (BMI) [Ratio] 26.96 kg/m2 Isabella Powell DPM Work Phone: [facility] 10-13-2024 09:16-0400 Body weight 95.25 kg Isabella Powell DPM Work Phone: [facility] 08-05-2024 10:48-0500 Body height 188 cm Blake Ng MD Work Phone: [facility] 08-05-2024 10:48-0500 Body mass index (BMI) [Ratio] 27.09 kg/m2 Blake Ng MD Work Phone: [facility] 08-05-2024 10:48-0500 Body temperature 97.5 [degF] Blake Ng MD Work Phone: [facility] 08-05-2024 10:48-0500 Body weight 95.71 kg Blake Ng MD Work Phone: [facility] 08-05-2024 10:48-0500 Diastolic blood pressure 58 mm[Hg] Blake Ng MD Work Phone: [facility] 08-05-2024 10:48-0500 Heart rate 85 /min Blake Ng MD Work Phone: [facility] 08-05-2024 10:48-0500 Respiratory rate 18 /min Blake Ng MD Work Phone: [facility] 08-05-2024 10:48-0500 SaO2% (BldA) [Mass fraction] 97 % Blake Ng MD Work Phone: [facility] 08-05-2024 10:48-0500 Systolic blood pressure 122 mm[Hg] Blake Ng MD Work Phone: [facility] 07-07-2024 09:40-0500 Body height 188 cm Isabella Swan DPM Work Phone: [facility] 07-07-2024 09:40-0500 Body mass index (BMI) [Ratio] 26.06 kg/m2 Isabella Swan DPM Work Phone: [facility] 07-07-2024 09:40-0500 Body weight 92.08 kg Isabella Swan DPM Work Phone: [facility] 06-20-2024 09:29-0500 Body height 188 cm Blake Ng MD Work Phone: [facility] 06-20-2024 09:29-0500 Body mass index (BMI) [Ratio] 26.06 kg/m2 Blake Ng MD Work Phone: [facility] 06-20-2024 09:29-0500 Body temperature 98.01 [degF] Blake Ng MD Work Phone: [facility] 06-20-2024 09:29-0500 Body weight 92.08 kg Blake Ng MD Work Phone: [facility] 06-20-2024 09:29-0500 Diastolic blood pressure 62 mm[Hg] Blake Ng MD Work Phone: [facility] 06-20-2024 09:29-0500 Heart rate 96 /min Blake Ng MD Work Phone: [facility] 06-20-2024 09:29-0500 Respiratory rate 22 /min Blake Ng MD Work Phone: [facility] 06-20-2024 09:29-0500 SaO2% (BldA) [Mass fraction] 98 % Blake Ng MD Work Phone: [facility] 06-20-2024 09:29-0500 Systolic blood pressure 160 mm[Hg] Blake Ng MD Work Phone: [facility] 05-15-2024 09:41-0500 Body height 188 cm Isabella Rusher DPM Work Phone: [facility] 05-15-2024 09:41-0500 Body mass index (BMI) [Ratio] 25.42 kg/m2 Isabella Rusher DPM Work Phone: [facility] 05-15-2024 09:41-0500 Body weight 89.81 kg Isabella Rusher DPM Work Phone: [facility] 04-14-2024 14:52-0500 Body height 188 cm Isabella Rusher DPM Work Phone: [facility] 04-14-2024 14:52-0500 Body mass index (BMI) [Ratio] 25.42 kg/m2 Isabella Rusher DPM Work Phone: [facility] 04-14-2024 14:52-0500 Body weight 89.81 kg Isabella Rusher DPM Work Phone: [facility] 04-02-2024 13:23-0400 Body height 188 cm Isabella Rusher DPM Work Phone: [facility] 04-02-2024 13:23-0400 Body mass index (BMI) [Ratio] 25.42 kg/m2 Isabella Rusher DPM Work Phone: [facility] 04-02-2024 13:23-0400 Body weight 89.81 kg Isabella Rusher DPM Work Phone: [facility] 03-26-2024 14:22-0400 Body height 188 cm Isabella Rusher DPM Work Phone: [facility] 03-26-2024 14:22-0400 Body mass index (BMI) [Ratio] 25.42 kg/m2 Isabella Rusher DPM Work Phone: [facility] 03-26-2024 14:22-0400 Body weight 89.81 kg Isabella Powell DPM Work Phone: [facility] 03-24-2024 08:30-0400 Body height 188 cm Isabella Powell DPM Work Phone: [facility] 03-24-2024 08:30-0400 Body mass index (BMI) [Ratio] 25.42 kg/m2 Isabella Powell DPM Work Phone: [facility] 03-24-2024 08:30-0400 Body weight 89.81 kg Isabella Powell DPM Work Phone: [facility] 01-10-2024 10:36-0400 Body weight 89.81 kg MD Blake Ng Work Phone: [facility] 01-10-2024 10:36-0400 Diastolic blood pressure 69 mm[Hg] MD Blake Ng Work Phone: [facility] 01-10-2024 10:36-0400 Heart rate 83 /min MD Blake Ng Work Phone: [facility] 01-10-2024 10:36-0400 Respiratory rate 18 /min MD Blake Ng Work Phone: [facility] 01-10-2024 10:36-0400 SaO2% (BldA) [Mass fraction] 98 % MD Blake Ng Work Phone: [facility] 01-10-2024 10:36-0400 Systolic blood pressure 130 mm[Hg] MD Blake Ng Work Phone: [facility] 12-28-2023 09:39-0400 Blood Pressure Location Jermaine JENSEN [facility] 12-28-2023 09:39-0400 Body temperature 98.6 [degF] Jermaine JENSEN [facility] 12-28-2023 09:39-0400 Diastolic blood pressure 69 mm[Hg] Jermaine JENSEN [facility] 12-28-2023 09:39-0400 Heart rate 80 /min Jermaine JENSEN [facility] 12-28-2023 09:39-0400 Respiratory rate 16 /min Jermaine JENSEN [facility] 12-28-2023 09:39-0400 Systolic blood pressure 131 mm[Hg] Jermaine JENSEN [facility] 09-18-2023 10:01-0400 Body temperature 97.9 [degF] MD Blake Ng Work Phone: [facility] 09-18-2023 10:01-0400 Body weight 99.33 kg MD Blake Ng Work Phone: [facility] 09-18-2023 10:01-0400 Diastolic blood pressure 88 mm[Hg] MD Blake Ng Work Phone: [facility] 09-18-2023 10:01-0400 Heart rate 89 /min MD Blake Ng Work Phone: [facility] 09-18-2023 10:01-0400 Respiratory rate 16 /min MD Blake Ng Work Phone: [facility] 09-18-2023 10:01-0400 SaO2% (BldA) [Mass fraction] 94 % MD Blake Ng Work Phone: [facility] 09-18-2023 10:01-0400 Systolic blood pressure 168 mm[Hg] MD Blake Ng Work Phone: [facility] 08-22-2023 14:28-0400 Diastolic blood pressure 73 mm[Hg] MD Blake Ng Work Phone: [facility] 08-22-2023 14:28-0400 Heart rate 77 /min MD Blake Ng Work Phone: [facility] 08-22-2023 14:28-0400 Systolic blood pressure 144 mm[Hg] MD Blake Ng Work Phone: [facility] 06-13-2023 09:59-0500 Body temperature 97.8 [degF] MD Blake Ng Work Phone: [facility] 06-13-2023 09:59-0500 Body weight 97.06 kg MD Blake Ng Work Phone: [facility] 06-13-2023 09:59-0500 Diastolic blood pressure 84 mm[Hg] MD Blake Ng Work Phone: [facility] 06-13-2023 09:59-0500 Heart rate 84 /min MD Blake Ng Work Phone: [facility] 06-13-2023 09:59-0500 Respiratory rate 16 /min MD Blake Ng Work Phone: [facility] 06-13-2023 09:59-0500 SaO2% (BldA) [Mass fraction] 98 % MD Blake Ng Work Phone: [facility] 06-13-2023 09:59-0500 Systolic blood pressure 175 mm[Hg] MD Blake Ng Work Phone: [facility] 12-13-2022 09:33-0400 Body temperature 97.8 [degF] MD Blake Ng Work Phone: [facility] 12-13-2022 09:33-0400 Body weight 93.89 kg MD Blake Ng Work Phone: [facility] 12-13-2022 09:33-0400 Diastolic blood pressure 77 mm[Hg] MD Blake Ng Work Phone: [facility] 12-13-2022 09:33-0400 Heart rate 79 /min MD Blake Ng Work Phone: [facility] 12-13-2022 09:33-0400 Respiratory rate 18 /min MD Blake Ng Work Phone: [facility] 12-13-2022 09:33-0400 SaO2% (BldA) [Mass fraction] 98 % MD Blake Ng Work Phone: [facility] 12-13-2022 09:33-0400 Systolic blood pressure 150 mm[Hg] MD Blake Ng Work Phone: [facility] 09-11-2022 12:54-0400 Body temperature 98.1 [degF] MD Blake Ng Work Phone: [facility] 09-11-2022 12:54-0400 Body weight 97.52 kg MD Blake Ng Work Phone: [facility] 09-11-2022 12:54-0400 Diastolic blood pressure 89 mm[Hg] MD Blake Ng Work Phone: [facility] 09-11-2022 12:54-0400 Heart rate 85 /min MD Blake Ng Work Phone: [facility] 09-11-2022 12:54-0400 Respiratory rate 18 /min MD Blake Ng Work Phone: [facility] 09-11-2022 12:54-0400 SaO2% (BldA) [Mass fraction] 97 % MD Blake Ng Work Phone: [facility] 09-11-2022 12:54-0400 Systolic blood pressure 150 mm[Hg] MD Blake Ng Work Phone: [facility] 07-12-2022 09:42-0500 Body temperature 97.8 [degF] MD Blake Ng Work Phone: [facility] 07-12-2022 09:42-0500 Body weight 96.2 kg MD Blake Ng Work Phone: [facility] 07-12-2022 09:42-0500 Diastolic blood pressure 79 mm[Hg] MD Blake Ng Work Phone: [facility] 07-12-2022 09:42-0500 Heart rate 86 /min MD Blake Ng Work Phone: [facility] 07-12-2022 09:42-0500 Respiratory rate 18 /min MD Blake Ng Work Phone: [facility] 07-12-2022 09:42-0500 SaO2% (BldA) [Mass fraction] 99 % MD Blake gN Work Phone: [facility] 07-12-2022 09:42-0500 Systolic blood pressure 146 mm[Hg] MD Blake Ng Work Phone: [facility] 05-15-2022 08:50-0500 Diastolic blood pressure 89 mm[Hg] MD Blake Ng Work Phone: [facility] 05-15-2022 08:50-0500 Heart rate 91 /min MD Blake Ng Work Phone: [facility] 05-15-2022 08:50-0500 Respiratory rate 16 /min MD Blake Ng Work Phone: [facility] 05-15-2022 08:50-0500 SaO2% (BldA) [Mass fraction] 96 % MD Blake Ng Work Phone: [facility] 05-15-2022 08:50-0500 Systolic blood pressure 131 mm[Hg] MD Blake Ng Work Phone: [facility] 05-15-2022 07:17-0500 Body height 187.96 cm MD Blake Ng Work Phone: [facility] 05-15-2022 07:17-0500 Body mass index (BMI) [Ratio] 26.6 kg/m2 MD Blake Ng Work Phone: [facility] 05-15-2022 07:17-0500 Body weight 94.1 kg MD Blake Ng Work Phone: [facility] 05-15-2022 06:05-0500 Body temperature 98 [degF] MD Blake Ng Work Phone: [facility] 04-27-2022 13:38-0500 Body height 187.96 cm MD Blake Ng Work Phone: [facility] 04-27-2022 09:42-0500 Body height 187.96 cm MD Blake Ng Work Phone: [facility] 04-27-2022 09:42-0500 Body temperature 98 [degF] MD Blake Ng Work Phone: [facility] 04-27-2022 09:42-0500 Body weight 95.8 kg MD Blake Ng Work Phone: [facility] 04-27-2022 09:42-0500 Diastolic blood pressure 84 mm[Hg] MD Blake Ng Work Phone: [facility] 04-27-2022 09:42-0500 Heart rate 81 /min MD Blake Ng Work Phone: [facility] 04-27-2022 09:42-0500 Respiratory rate 18 /min MD Blake Ng Work Phone: [facility] 04-27-2022 09:42-0500 SaO2% (BldA) [Mass fraction] 98 % MD Blake Ng Work Phone: [facility] 04-27-2022 09:42-0500 Systolic blood pressure 154 mm[Hg] MD Blake Ng Work Phone: [facility] 04-14-2022 10:35-0400 Blood Pressure Location Jermaine JENSEN [facility] 04-14-2022 10:35-0400 Diastolic blood pressure 74 mm[Hg] Jermaine JENSEN [facility] 04-14-2022 10:35-0400 Heart rate 56 /min Jermaine JENSEN [facility] 04-14-2022 10:35-0400 Respiratory rate 16 /min Jermaine JENSEN [facility] 04-14-2022 10:35-0400 Systolic blood pressure 136 mm[Hg] Jermaine JENSEN [facility] 12-23-2021 08:14-0400 Blood Pressure Location Jermaine JENSEN [facility] 12-23-2021 08:14-0400 Diastolic blood pressure 75 mm[Hg] Jermaine JENSEN [facility] 12-23-2021 08:14-0400 Heart rate 80 /min Jermaine JENSEN [facility] 12-23-2021 08:14-0400 Respiratory rate 16 /min Jermaine JENSEN [facility] 12-23-2021 08:14-0400 Systolic blood pressure 134 mm[Hg] Jermaine JENSEN [facility] Encounters Encounter Date Encounter Type Care Provider Facility Start: 02-03-2025 End: 02-03-2025 Bamboo flowsheet Blake Ng MD Work Phone: [facility] Start: 02-03-2025 End: 02-03-2025 Bamboo flowsheet Blake Ng MD Work Phone: [facility] Start: 02-03-2025 End: 02-03-2025 Office outpatient visit 25 minutes Blake Ng MD Work Phone: [facility] Comment on above: Type 2 diabetes enmanuel itus with hyperglycemia, with long-term current use of insulin (HCC) (Primary Dx); Benign essential hypertension ; BPH without urinary obstruction; Peptic ulcer disease; Renal calculi Start: 02-03-2025 End: 02-03-2025 ambulatory BLAKE NG Not Available Start: 01-31-2025 End: 01-31-2025 Clinisync Result Encounter Blake Ng MD Work Phone: [facility]solic[facility] Start: 01-31-2025 End: 01-31-2025 Clinisync Result Encounter Blake Ng MD Work Phone: [facility] Start: 01-30-2025 End: 01-30-2025 Clinisync Result Encounter Generic External Data Provider [facility]solic[facility] Start: 01-30-2025 End: 01-30-2025 Clinisync Result Encounter Generic External Data Provider [facility]olic[facility] Start: 01-26-2025 End: 01-26-2025 Bamboo flowsheet Isabella Powell DPM Work Phone: [facility] Start: 01-26-2025 End: 01-26-2025 Bamboo flowsheet Isabella Powell DPM Work Phone: [facility] Start: 01-26-2025 End: 01-26-2025 Patient encounter procedure Isabella Powell DPM Work Phone: [facility] Comment on above: Dermatophytosis of n ail (Primary Dx); Dystrophic nail; Diabetic polyneuropathy associated with type 2 diabetes mellitus (HCC); Encounter for long-term (current) use of insulin (HCC) Start: 01-26-2025 End: 01-26-2025 ambulatory ISABELLA Bernabe PATRICK Not Available Start: 01-19-2025 End: 01-19-2025 ambulatory [facility] Start: 01-19-2025 End: 01-19-2025 Encounter for preprocedural cardiovascular examination [facility] Start: 01-12-2025 End: 01-12-2025 Clinisync Result Encounter Blake Ng MD Work Phone: [facility] External Department Unsolicited Start: 01-12-2025 End: 01-12-2025 Clinisync Result Encounter Blake Ng MD Work Phone: [facility] External Department Unsolicited Start: 01-08-2025 ambulatory Jermaine Foreman ty:[id number] Start: 01-02-2025 End: 01-02-2025 Bamboo flowsheet Blake Ng MD Work Phone: [facility] Start: 01-02-2025 End: 01-02-2025 Bamboo flowsheet Blake Ng MD Work Phone: [facility] Start: 01-02-2025 End: 01-02-2025 Office outpatient visit 25 minutes Blake Ng MD Work Phone: [facility] Comment on above: Preoperative clearan ce (Primary Dx); Other chest pain; Abnormal EKG; Renal calculi; Thrombocytopenia; Type 2 diabetes mellitus with hyperglycemia, with long-term current use of insulin (HCC); Benign essential hypertension Start: 01-02-2025 End: 01-02-2025 Preoperative state Blake Ng MD Work Phone: [facility] Start: 01-02-2025 End: 01-02-2025 ambulatory BLAKE NG Not Available Start: 12-30-2024 End: 12-31-2024 Clinisync Result Encounter Generic External Data Provider [facility] Unsolicited Start: 12-30-2024 End: 12-31-2024 Clinisync Result Encounter Generic External Data Provider [facility] Unsolicited Start: 12-29-2024 End: 12-29-2024 ambulatory Jermaine JENSEN Facility:[facility] Start: 12-29-2024 End: 12-29-2024 ambulatory Jermaine JENSEN Facility:[facility] Start: 12-29-2024 End: 12-29-2024 Patient encounter procedure Jermaine JENSEN [facility] Start: 12-24-2024 End: 12-24-2024 Patient encounter procedure Jermaine Jensen MD -[facility] Work Phone: Start: 12-24-2024 End: 12-24-2024 ambulatory Blake Ng MD Work Phone: [facility] Work Phone: Start: 11-04-2024 End: 11-04-2024 Patient encounter procedure [facility] Work Phone: Start: 11-04-2024 End: 11-04-[address] [facility] Work Phone: Start: 10-20-2024 End: 10-20-2024 Patient encounter procedure Jaycob Dill DO Work Phone: [facility] Comment on above: Left elbow pain (Miranda tre Dx) Start: 10-20-2024 End: 10-20-2024 ambulatory JAYCOB DILL Not Available Start: 10-20-2024 End: 10-20-2024 ambulatory JAYCOB DILL Not Available Start: 10-13-2024 End: 10-13-2024 Bamboo flowsheet Isabella Powell DPM Work Phone: [facility] Start: 10-13-2024 End: 10-13-2024 Bamboo flowsheet Isabella Powell DPM Work Phone: [facility] Start: 10-13-2024 End: 10-13-2024 Patient encounter procedure Isabella Powell DPM Work Phone: [facility] Comment on above: Dermatophytosis of n ail (Primary Dx); Dystrophic nail; Diabetic polyneuropathy associated with type 2 diabetes mellitus ([facility]/HCC); Encounter for long-term (current) use of insulin ([facility] Start: 10-13-2024 End: 10-13-2024 ambulatory ISABELLA POWELL Not Available Start: 08-07-2024 End: 08-07-2024 Orders Only Blake Ng MD Work Phone: [facility] Comment on above: Hypomagnesemia (Prim kirk Dx) Start: 08-06-2024 End: 08-07-2024 External Result Encounter Blake Ng MD Work Phone: [facility] External Department Unsolicited Start: 08-06-2024 End: 08-07-2024 External Result Encounter Blake Ng MD Work Phone: [facility] External Department Unsolicited Start: 08-06-2024 End: 08-06-2024 Patient encounter procedure Blake Ng MD Work Phone: [facility] [place] Work Phone: Start: 08-06-2024 End: 08-06-2024 ambulatory Blake Ng MD Work Phone: [facility] Work Phone: Start: 08-05-2024 End: 08-05-2024 Bamboo flowsheet Blake Ng MD Work Phone: [facility] Start: 08-05-2024 End: 08-05-2024 Bamboo flowsheet Blake Ng MD Work Phone: [facility] Start: 08-05-2024 End: 08-05-2024 Office outpatient visit 15 minutes Blake Ng MD Work Phone: [facility] Comment on above: Medicare annual well ness visit, subsequent (Primary Dx); Nocturnal leg cramps; Pruritus; Type 2 diabetes mellitus with hyperglycemia, with long-term current use of insulin ([facility]); Benign essential hypertension ([facility]); Encounter for long-term current use of medication Start: 08-05-2024 End: 08-05-2024 Patient encounter procedure Blake Ng MD Work Phone: [facility] Work Phone: Start: 08-05-2024 End: 08-05-2024 ambulatory BLAKE NG Not Available Start: 07-21-2024 End: 07-21-2024 Bamboo flowsheet Symone Mcmahon MD Work Phone: [facility] Start: 07-21-2024 End: 07-21-2024 Bamboo flowsheet Symone Mcmahon MD Work Phone: [facility] Start: 07-21-2024 End: 07-21-2024 Office outpatient visit 15 minutes Symone Mcmahon MD Work Phone: [facility] Comment on above: Melanocytic nevus of trunk (Primary Dx); Seborrheic keratosis; Lentigines; Actinic keratosis; Capillary angioma; Melanocytic nevus of face, other location; Epidermal inclusion cyst; Nummular eczema Start: 07-21-2024 End: 07-21-2024 ambulatory SYMONE MCMAHON Not Available Start: 07-07-2024 End: 07-07-2024 Bamboo flowsheet Isabella Powell DPM Work Phone: [facility] Start: 07-07-2024 End: 07-07-2024 Bamboo flowsheet Isabella Powell DPM Work Phone: [facility] Start: 07-07-2024 End: 07-07-2024 Patient encounter procedure Isabella Powell DPM Work Phone: [facility] Comment on above: Dermatophytosis of n ail (Primary Dx); Dystrophic nail; Diabetic polyneuropathy associated with type 2 diabetes mellitus (CMS/HCC); 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); Encounter for long-term (current) use of insulin (CMS/HCC) Start: 07-07-2024 End: 07-07-2024 ambulatory ISABELLA POWELL Not Available Start: 06-20-2024 End: 06-20-2024 Bamboo flowsheet Blake Ng MD Work Phone: [facility] Start: 06-20-2024 End: 06-20-2024 Bamboo flowsheet Blake Ng MD Work Phone: [facility] Start: 06-20-2024 End: 06-20-2024 Office outpatient visit 15 minutes Blake Ng MD Work Phone: [facility] Comment on above: Acute non-recurrent maxillary sinusitis (Primary Dx); Type 2 diabetes mellitus with hyperglycemia, with long-term current use of insulin ([facility] Start: 06-20-2024 End: 06-20-2024 ambulatory BLAKE NG Not Available Start: 05-15-2024 End: 05-15-2024 Bamboo flowsheet Isabella Powell DPM Work Phone: [facility] Start: 05-15-2024 End: 05-15-2024 Bamboo flowsheet Isabella Powell DPM Work Phone: [facility] Start: 05-15-2024 End: 05-15-2024 ambulatory ISABELLA POWELL Not Available Start: 05-15-2024 End: 05-15-2024 Office outpatient visit 15 minutes Isabella Powell DPM Work Phone: [facility] Comment on above: Type 2 diabetes enmanuel itus with Charcot joint of left foot (CMS/HCC) (Primary Dx); Diabetic polyneuropathy associated with type 2 diabetes mellitus (CMS/HCC); Swelling of left foot; Encounter for long-term (current) use of insulin ([facility] Start: 05-15-2024 End: 05-15-2024 ambulatory ISABELLA POWELL Not Available Start: 04-21-2024 End: 04-21-2024 Telephone encounter Isabella Powell DPM Work Phone: [facility] Comment on above: Advice Only Start: 04-14-2024 End: 04-14-2024 ambulatory ISABELLA POWELL Not Available Start: 04-14-2024 End: 04-14-2024 ambulatory ISABELLA POWELL Not Available Start: 04-14-2024 End: 04-14-2024 Office outpatient visit 25 minutes Isabella Powell DPM Work Phone: [facility] Comment on above: Type 2 diabetes enmanuel itus with Charcot joint of left foot ([facility]) (Primary Dx); Diabetic polyneuropathy associated with type 2 diabetes mellitus ([facility]); Swelling of left foot; Encounter for long-term (current) use of insulin ([facility]) Start: 04-14-2024 End: 04-14-2024 Bamboo flowsheet Isabella Powell DPM Work Phone: [facility] Start: 04-14-2024 End: 04-14-2024 Bamboo flowsheet Isabella Powell DPM Work Phone: [facility] Start: 04-06-2024 End: 04-07-2024 Refill Blake Ng MD Work Phone: [facility] Comment on above: Type 2 diabetes enmanuel itus with hyperglycemia, with long-term current use of insulin ([facility]) (Primary Dx) Start: 04-02-2024 End: 04-02-2024 Bamboo flowsheet Isabella Powell DPM Work Phone: [facility] Start: 04-02-2024 End: 04-02-2024 Bamboo flowsheet Isabella Powell DPM Work Phone: [facility] Start: 04-02-2024 End: 04-02-2024 Patient encounter procedure Isabella Powell DPM Work Phone: [facility] Comment on above: Diabetic polyneuropa thy associated with type 2 diabetes mellitus (CMS/HCC) (Primary Dx); Encounter for long-term (current) use of insulin ([facility]) Start: 04-02-2024 End: 04-02-2024 ambulatory ISABELLA POWELL Not Available Start: 04-01-2024 End: 04-01-2024 Bamboo flowsheet Isabella Powell DPM Work Phone: [facility] Start: 04-01-2024 End: 04-01-2024 Bamboo flowsheet Isabella Powell DPM Work Phone: [facility] Start: 03-26-2024 End: 03-26-2024 Postop follow up visit related to original px Isabella Powell DPM Work Phone: [facility] Comment on above: Diabetic polyneuropa thy associated with type 2 diabetes mellitus (CMS/HCC) (Primary Dx); Encounter for long-term (current) use of insulin ([facility] Start: 03-26-2024 End: 03-26-2024 ambulatory ISABELLA POWELL Not Available Start: 03-26-2024 End: 03-26-2024 Bamboo flowsheet Isabella Powell DPM Work Phone: [facility] Start: 03-26-2024 End: 03-26-2024 Bamboo flowsheet Isabella Powell DPM Work Phone: [facility] Start: 03-24-2024 End: 03-24-2024 Bamboo flowsheet Isabella Powell DPM Work Phone: [facility] Start: 03-24-2024 End: 03-24-2024 Bamboo flowsheet Isabella Powell DPM Work Phone: [facility] Start: 03-24-2024 End: 03-24-2024 Patient encounter procedure Isabella Powell DPM Work Phone: [facility] Comment on above: Dermatophytosis of n ail (Primary Dx); Dystrophic nail; Diabetic polyneuropathy associated with type 2 diabetes mellitus ([facility]/HCC); Encounter for long-term (current) use of insulin ([facility] Start: 03-24-2024 End: 03-24-2024 ambulatory ISABELLA POWELL Not Available Start: 01-25-2024 End: 01-25-2024 Patient encounter procedure MD Blake Ng Work Phone: [facility] [place] Work Phone: Start: 01-25-2024 End: 01-25-2024 ambulatory MD Blake Ng Work Phone: [facility] Work Phone: Start: 01-10-2024 End: 01-10-2024 ambulatory MD Blake Ng Work Phone: [facility] Work Phone: Start: 01-10-2024 End: 01-10-2024 Patient encounter procedure MD Blake Ng Work Phone: [facility] Work Phone: Start: 01-10-2024 Registered Recurring MD Blake arredondo Work Phone: [facility] Acute Work Phone: Start: 12-28-2023 End: 12-28-2023 Patient encounter procedure Jermaine JENSEN [facility] Start: 12-19-2023 End: 12-19-2023 ambulatory MD Blake Ng Work Phone: [facility] Work Phone: Start: 12-19-2023 End: 12-19-2023 Patient encounter procedure MD Blake Ng Work Phone: [facility] [place] Work Phone: Start: 09-18-2023 End: 09-18-2023 ambulatory MD Blake Ng Work Phone: [facility] Work Phone: Start: 09-18-2023 End: 09-18-2023 Patient encounter procedure MD Blake Ng Work Phone: [facility] Ambulatory Work Phone: Start: 09-18-2023 Registered Recurring MD Blake arredondo [facility] Work Phone: Start: 08-22-2023 End: 08-22-2023 ambulatory MD Blake Ng Work Phone: [facility] Work Phone: Start: 08-22-2023 End: 08-22-2023 Patient encounter procedure MD Blake Ng Work Phone: [facility]ro[facility] Work Phone: Start: 07-19-2023 Osmel jauregui MD Work Phone: [facility] Start: 07-19-2023 Osmel jauregui MD Work Phone: [facility] Start: 07-19-2023 End: 07-19-2023 Office outpatient visit 25 minutes Symone Mcmahon MD Work Phone: [facility] Comment on above: Nummular eczema (Miranda tre Dx); Seborrheic keratosis; Melanocytic nevus of trunk; Lentigines; Angioma of skin; History of actinic keratoses Start: 06-13-2023 Registered Recurring MD Blake arredondo [facility] Work Phone: Start: 12-13-2022 End: 12-13-2022 ambulatory MD Blake Ng Work Phone: [facility] Work Phone: Start: 12-13-2022 End: 12-13-2022 Registered Recurring MD Blake Ng Work Phone: [facility] Work Phone: Start: 12-05-2022 End: 12-05-2022 ambulatory MD Blake Ng Work Phone: [facility] Work Phone: Start: 12-05-2022 End: 12-05-2022 Patient encounter procedure MD Blake Ng Work Phone: [facility] [place] Work Phone: Start: 09-11-2022 End: 09-11-2022 ambulatory MD Blake Ng Work Phone: [facility] Work Phone: Start: 09-11-2022 End: 09-11-2022 Registered Recurring MD Blake Ng Work Phone: [facility] Work Phone: Start: 07-27-2022 End: 07-28-[address] BLAKE NG Facility: Start: 07-12-2022 End: 07-12-2022 ambulatory MD Blake Ng Work Phone: [facility] Work Phone: Start: 07-12-2022 End: 07-12-2022 Registered Recurring MD Blake Ng Work Phone: [facility] Work Phone: Start: 05-15-2022 End: 05-15-2022 Admission to same day surgery center MD Blake Ng Work Phone: [facility] [place] Start: 05-15-2022 End: 05-15-2022 ambulatory MD Blake Ng Work Phone: [facility] Work Phone: Start: 05-08-2022 End: 05-08-2022 ambulatory MD Blake Ng Work Phone: [facility] Work Phone: Start: 05-08-2022 End: 05-08-2022 Patient encounter procedure MD Blake Ng Work Phone: [facility] Start: 05-08-2022 Registered Recurring MD Blake arredondo Work Phone: [facility] Start: 04-27-2022 End: 04-27-2022 ambulatory MD Blake Ng Work Phone: [facility] Work Phone: Start: 04-27-2022 End: 04-27-2022 Registered Recurring MD Blake Ng Work Phone: [facility] Start: 04-14-2022 End: 04-14-2022 Patient encounter procedure Jermaine JENSEN [facility] Start: 03-28-2022 End: 03-28-2022 Patient encounter procedure Jermaine JENSEN [facility] Start: 03-01-2022 End: 03-01-2022 Patient encounter procedure MD Jermaine Jensen Work Phone: [facility] [place] Start: 01-17-2022 End: 01-18-[address] BLAKE NG Facility: Start: 12-23-2021 End: 12-23-2021 Patient encounter procedure Jermaine JENSEN [facility] Start: 12-16-2021 End: 12-17-[address] JERMAINE JENSEN . Facility: Start: 10-25-2021 End: 10-25-2021 Patient encounter procedure Haroldo Sebastian MD Work Phone: Ophthalmology Comment on above: Iris nevus, left (Pr imary Dx); Dislocation of intraocular lens, sequela Start: 09-10-2017 End: 09-11-2017 Ambulatory DEFAULT PHYSICIAN Facility:[facility] Procedures Date Procedure Procedure Detail Performing Clinician Start: 01-31-2025 ALL CBC WITH AUTO DIFF Blake Ng MD Work Phone: Start: 01-30-2025 CA ECHO DOPPLER COMPLETE Generic [...] above: Performed By: #### P SAD #### [facility] [address] [place] [address] Dr. Sary Elkins Start: 10-25-2021 Oph us dx ant sgm us immersion b-scan/hr biom Haroldo Sebastian MD Work Phone: Start: 10-25-2021 End: 10-25-2021 Xtrnl ocular photog w/i&r docmt medical progre Haroldo Sebastian MD Work Phone: Start: 05-13-2018 Arthroplasty of shoulder Jermaine JENSEN Comment on above: REVERSE RIGHT TOTAL SHOULDER ARTHROPLASTY, BICEP TENODESIS Start: 10-13-2008 Lithotripsy Jermaine MATTHIAS MEAD Comment on above: ESWL * 08/13/08, [...] stent removal * 09/01/08 Renal lithotripsy Jermaine MATTHIAS BRAXTONDamien Comment on above: X5 Tonsillectomy Jermaine JENSEN Plan of Treatment Date Care Activity Detail Author Start: 08-14-2025 Glaucoma screening Diabetes: R etinopathy Screening [facility] Start: 08-11-2025 End: 08-11-2025 Patient encounter procedure 08/11/2025 11:00 AM EST [facility] [address] [place] [address] Blake Ng MD [address] [place] [address] [facility] Start: 08-06-2025 Urine screening for protein Diabetes: Urine Protein Screening [facility] Start: 08-05-2025 Medicare Annual Wellness (AWV) Medicare Annual Wellness (AWV) [facility] Start: 08-04-2025 End: 08-04-2025 Patient encounter procedure 08/04/2025 10:20 AM EST Office Visit [facility] [address] [place] [address] Symone Mcmahon MD [address] [place] [address] [facility] Start: 08-03-2025 Hemoglobin A1c measurement Diabetes: Hemoglobin A1C [facility] Start: 07-28-2025 End: 07-28-2025 Patient encounter procedure [facility] Start: 04-28-2025 End: 04-28-2025 Patient encounter procedure 04/28/2025 9:15 AM EST Procedure Visit [facility] [address] [place] [phone] Isabella Powell, DP [address] [place], [place] [phone] [facility] Start: 02-09-2025 Influenza vaccination Influenza Vacc ine (#1) [facility] Start: 02-03-2025 Hemoglobin A1c measurement Diabetes: Hemoglobin A1C [facility] Start: 02-03-2025 End: 02-03-2025 Patient encounter procedure [facility] Comment on above: Arrived Start: 01-26-2025 End: 01-26-2025 Patient encounter procedure [facility] Comment on above: Arrived Start: 01-02-2025 End: 01-02-2027 NM Heart Perfusion W single state of exercise Stress test with myocardial perfusion Cardiac Nuclear Medicine Routine Other chest pain Abnormal EKG Expected: 01/02/2025 (Approximate), Expires: 01/02/2027 [facility] Work Phone: Comment on above: Expected: 01/02/2025 (Approximate), Expires: 01/02/2027 Start: 01-02-2025 End: 01-02-2025 Patient encounter procedure 01/02/2025 11:45 AM EDT Office Visit [facility] [address] [place] [phone] Blake Ng MD [address] [place] [phone] Arrived [facility] Comment on above: Arrived Start: 10-13-2024 End: 10-13-2024 Patient encounter procedure [facility] Comment on above: Arrived Start: 08-07-2024 Urine screening for protein Diabetes: Urine Protein Screening [facility] Start: 08-06-2024 [facility] Start: 08-05-2024 End: 08-05-2025 Basic metabolic 1998 panel - Serum or Plasma Basic metabolic panel Lab Routine Encounter for long-term current use of medication Expected: 08/05/2024 (Approximate), Expires: 08/05/2025 [facility] Comment on above: Expected: 08/05/2024 (Approximate), Expires: 08/05/2025 Start: 08-05-2024 End: 08-05-2025 Hemoglobin A1c/Hemoglobin.total in Blood Hemoglobin A1c Lab Routine Type 2 diabetes mellitus with hyperglycemia, with long-term current use of insulin ([facility]) Expected: 08/05/2024 (Approximate), Expires: 08/05/2025 [facility] Work Phone: Comment on above: Expected: 08/05/2024 (Approximate), Expires: 08/05/2025 Start: 08-05-2024 End: 08-05-2025 Magnesium [Mass/volume] in Serum or Plasma Magnesium Lab Routine Encounter for long-term current use of medication Expected: 08/05/2024 (Approximate), Expires: 08/05/2025 [facility] Comment on above: Expected: 08/05/2024 (Approximate), Expires: 08/05/2025 Start: 08-05-2024 End: 08-05-2025 Microalbumin/Creatinine panel in random Urine Microalbumin / creatinine, urine ratio Lab Routine Type 2 diabetes mellitus with hyperglycemia, with long-term current use of insulin ([facility]) Expected: 08/05/2024 (Approximate), Expires: 08/05/2025 [facility] Comment on above: Expected: 08/05/2024 (Approximate), Expires: 08/05/2025 Start: 08-05-2024 End: 08-05-2024 Patient encounter procedure [facility] Comment on above: Arrived Start: 08-01-2024 Hemoglobin A1c measurement Diabetes: Hemoglobin A1C [facility] Start: 07-21-2024 End: 07-21-2024 Patient encounter procedure [facility] Comment on above: Arrived Start: 07-16-2024 Glaucoma screening Diabetes: R etinopathy Screening [facility] Start: 07-07-2024 End: 07-07-2024 Patient encounter procedure [facility] Comment on above: Arrived Start: 06-20-2024 End: 06-20-2024 Patient encounter procedure 06/20/2024 9:15 AM EST Office Visit [facility] [address] [place] [address] Blake Ng MD [address] [place] [address] [facility] Start: 05-15-2024 End: 05-15-2024 [facility] Comment on above: Arrived Start: 05-01-2024 Hemoglobin A1c measurement Diabetes: Hemoglobin A1C [facility] Start: 04-24-2024 End: 04-24-2024 Patient encounter procedure 04/24/2024 9:30 AM EST Office Visit [facility] [address] [place] [phone] Isabella Powell DPM [address] [place] [address] [facility] Start: 04-23-2024 End: 04-23-2024 Patient encounter procedure 04/23/2024 11:15 AM EST Office Visit [facility] [address] [place] [address] Isabella Powell DPM [address] [place] [address] [facility] Start: 04-02-2024 End: 04-02-2024 Patient encounter procedure 04/02/2024 1:30 PM EDT Office Visit [facility] [address] [place] [phone] Isabella Powell DPM [address] [place] [address] Arrived [facility] Comment on above: Arrived Start: 03-26-2024 End: 03-26-2024 Patient encounter procedure 03/26/2024 2:30 PM EDT Office Visit [facility] [address] [place] [phone] Isabella Powell DPM [address] [place] [address] Arrived [facility] Comment on above: Arrived Start: 03-24-2024 End: 03-24-2024 Patient encounter procedure 03/24/2024 8:30 AM EDT Procedure Visit [facility] [address] [place] [phone] Isabella Powell DPM [address] [place] [address] Arrived [facility] Comment on above: Arrived Start: 02-10-2024 Influenza vaccination Influenza Vacc ine (#1) [facility] Start: 08-22-2023 Radionuclide myocard ial perfusion stress study NM carmen perf SPECT rest & str [facility] Start: 08-22-2023 SPECT Heart perfusio n at rest and W stress and W radionuclide IV [facility] Start: 08-22-2023 End: 08-22-2023 Patient encounter procedure 08/22/2023 11:00 AM EDT Procedure Visit [facility] [address] [place] [phone] Isabella Powell DPM [address] [place], [place] [phone] [facility] Start: 07-19-2023 End: 07-19-2023 Patient encounter procedure 07/19/2023 9:45 AM EST Office Visit [facility] [address] [place] [address] Symone Mcmahon MD [address] [place] [address] Arrived [facility] Comment on above: Arrived Start: 05-15-2022 End: 05-15-2022 [facility] Start: 05-15-2022 [facility] Start: 03-01-2022 MR Prostate WO and W contrast IV [facility] Work Phone: Start: 03-01-2022 MR prostate wo/w con MR prostate wo/ w con [facility] Start: 02-09-2022 Influenza vaccination INFLUENZ A (Season Ended) [facility] Start: 06-11-2021 ADVANCE DIRECTIVE DISCUSSION ADVANCE DIRECTIVE DISCUSSION [facility] Start: 08-29-2020 DIABETES SCREEN DIABETES SCREEN [facility] Start: 08-08-2018 Hemoglobin A1c measurement Diabetes: Hemoglobin A1C [facility] Start: 2010 PNEUMOVAX AGE 65 AND OVER WITH 5YR LOOKBACK (#1) PNEUMOVAX AGE 65 AND OVER WITH 5YR LOOKBACK (#1) [facility] Start: 1995 SHINGRIX VACCINE (1 of 2) SHINGRIX VACCINE (1 of 2) [facility] Start: 1964 Urine microalbumin profile DTAP,TDAP,TD (1 - Tdap) [facility] Start: 1964 Urine screening for protein Diabetes: Urine Protein Screening [facility] Start: 1963 HEPATITIS C SCREENING HEPATITIS C SC GEOVANNY [facility] Start: 1957 Adult depression screening assessment DEPRESSION SCREENING [facility] Start: 1955 Glaucoma screening Diabetes: R etinopathy Screening [facility] Start: 1950 COVID-19 VACCINE (#1) COVID-19 VACCI NE (#1) [facility] Start: 1945 Medicare Annual Wellness (AWV) Medicare Annual Wellness (AWV) [facility] Computed tomography for radiotherapy planning [facility] Glucose measurement estimated from glycated hemoglobin [facility] Hemoglobin A1c/Hemoglobin.total in Blood [facility] MR Prostate WO and W contrast IV [facility] Immunizations Immunization Date Immunization Notes Care Provider Imani romeo 04-30-2024 SARS-COV-2 (COVID-19 ) vaccine, mRNA, spike protein, LNP, PF, 50 mcg/0.5 mL Isabella Powell DPM Work Phone: [facility] 04-30-2024 Seasonal trivalent influenza vaccine, adjuvanted, preservative free Isabellaberny Powell DPM Work Phone: [facility] 04-30-2024 influenza virus vacc ine, unspecified formulation Isabellaberny Powell DPM Work Phone: [facility] 05-07-2023 Influenza, Seasonal, Quadrivalent, Adjuvanted Symone Mcmahon MD Work Phone: [facility] 05-07-2023 SARS-COV-2 (COVID-19 ) vaccine, mRNA, spike protein, LNP, PF, 50 mcg/0.5 mL Symone Mcmahon MD Work Phone: [facility] 05-07-2023 influenza virus vacc ine, unspecified formulation Isabella Powell DPM Work Phone: [facility] 03-29-2022 COVID-19 mRNA Bivale nt Booster (Pfizer) MD Blake Ng Work Phone: [facility] Comment on above: Result Comment: 2022: [id number] 03-29-2022 influenza virus vacc ine, unspecified formulation Symone Mcmahon MD Work Phone: [facility] 03-15-2021 COVID-19 mRNA, Comir jaya (Pfizer) MD Blake Ng Work Phone: [facility] Comment on above: Result Comment: 2022: [id number] 03-02-2021 influenza virus vacc ine, unspecified formulation Jermaine JENSEN [facility] 03-02-2021 Influenza, High-dose Seasonal, Quadrivalent, Preservative Free Symone Mcmahon MD Work Phone: [facility] 08-11-2020 COVID-19 mRNAKalin (Pfizer) MD Blake Ng Work Phone: [facility] 07-26-2020 SARS-CoV-2 (COVID-19 ) mRNA BNT-162b2 vax Jermaine JENSEN [facility] 07-14-2020 COVID-19 mRNAKalin (Pfizer) MD Blake Ng Work Phone: [facility] 04-27-2020 pneumococcal polysaccharide vaccine, 23 puma Mcmahon MD Work Phone: [facility] 04-05-2020 influenza, injectabl e, quadrivalent, preservative free Symone Mcmahon MD Work Phone: [facility] 02-24-2020 influenza virus vacc ine, unspecified formulation Jermaine JENSEN [facility] 02-24-2020 Influenza, High-dose Seasonal, Quadrivalent, Preservative Free Symone Mcmahon MD Work Phone: [facility] 03-26-2019 influenza virus vacc ine, unspecified formulation Jermaine JENSEN [facility] 03-26-2019 pneumococcal conjuga te vaccine, 13 valent Symone Mcmahon MD Work Phone: [facility] 03-26-2019 Seasonal trivalent influenza vaccine, adjuvanted, preservative free Symone Mcmahon MD Work Phone: [facility] 03-11-2019 influenza, high dose seasonal, preservative-free Symone Mcmahon MD Work Phone: [facility] 03-11-2019 pneumococcal polysaccharide vaccine, 23 valent Symone Mcmahon MD Work Phone: [facility] 03-18-2018 influenza virus vacc ine, unspecified formulation Jermaine JENSEN [facility] 03-18-2018 influenza, injectabl e, quadrivalent, preservative free Symone Mcmahon MD Work Phone: [facility] 03-21-2017 influenza virus vacc ine, unspecified formulation Jermaine JENSEN [facility] 03-21-2017 influenza, high dose seasonal, preservative-free Symone Mcmahon MD Work Phone: [facility] 03-12-2017 influenza virus vacc ine, unspecified formulation Jermaine JENSEN [facility] 03-12-2017 influenza, injectabl e, quadrivalent, preservative free Symone Mcmahon MD Work Phone: [facility] 03-30-2016 influenza virus vacc ine, unspecified formulation Jermaine JENSEN [facility] 03-30-2016 influenza, high dose seasonal, preservative-free Symone Mcmahon MD Work Phone: [facility] 02-22-2015 influenza virus vacc ine, unspecified formulation Jermaine JENSEN [facility] 02-22-2015 influenza, high dose seasonal, preservative-free Symone Mcmahon MD Work Phone: [facility] 04-01-2014 influenza virus vacc ine, unspecified formulation Jermaine JENSEN [facility] 04-01-2014 influenza, seasonal, injectable Symone Mcmahon MD Work Phone: [facility] 03-23-2014 pneumococcal polysaccharide vaccine, 23 valent Symone Mcmahon MD Work Phone: [facility] 05-19-2013 influenza virus vacc ine, unspecified formulation Jermaine JENSEN [facility] 05-19-2013 influenza, seasonal, injectable Symone Mcmahon MD Work Phone: [facility] Healthcare Payers Date Payer Category Payer Unknown 2022 Unknown [id number] 2022 Self-pay [id number] 2013 Private Health Insurance [facility] AARP SUPPLEMENT [id number] 2013-Present [phone] [address] [place] [address] Indemnity [id number] .[id number] 2011 Private Health Insurance [id number] .[id number] .[id number] 2011 Unknown [id number] 2010 Medicare MEDICARE MEDICAR E A AND B [id number] 2010-Present [phone] [address] [address] [place] [address] Medicare [id number] .[id number] 2010 Medicare [id number]. 1.13.693.2 .7.3.568663.315 1959 Medicare [id number] 1959 Unknown [id number] 1945 Unknown [id number] 2.16.840.1.960570.3.579.2 .593 1945 Unknown [id number] 2.16.840.1.278676.3.579.2 .593 1945 Unknown [id number] 2.16.840.1.387457.3.579.2 .593 1945 Unknown [id number] 2.16.840.1.593298.3.579.2 .727 1945 Unknown [id number] 2.16.840.1.655324.3.579.2 .727 1945 Unknown [id number] 2.16.840.1.897325.3.579.2 .1259 1945 Unknown [id number] 2.16.840.1.117850.3.579.2 .1259 1945 Unknown [id number] 2.16.840.1.073197.3.579.2 .1259 1945 Unknown [id number] 2.16.840.1.990708.3.579.2 .1259 1945 Unknown [id number] 2.16.840.1.380690.3.579.2 .1259 1945 Unknown [id number] 2.16.840.1.626001.3.579.2 .1259 1945 Unknown [id number] 2.16.840.1.165886.3.579.2 .1259 1945 Unknown [id number] 2.16.840.1.990971.3.579.2 .1259 1945 Unknown [id number] 2.16.840.1.031632.3.579.2 .1259 1945 Unknown [id number] 2.16.840.1.804568.3.579.2 .1259 1945 Unknown [id number] 2.16.840.1.751871.3.579.2 .1259 1945 Unknown [id number] 2.16.840.1.208802.3.579.2 .1259 1945 Unknown [id number] 2.16.840.1.299822.3.579.2 .1259 1945 Unknown [id number] 2.16.840.1.028918.3.579.2 .1258 1945 Unknown [id number] 2.16.840.1.702721.3.579.2 .1259 1945 Unknown [id number] 2.16.840.1.114146.3.579.2 .1259 1945 Unknown [id number] 2.16.840.1.682170.3.579.2 .1259 Unknown [facility] Health Claims [id number] Unknown [id number] 2.16.840.1.065019.3.579.2 .531 Unknown [id number] 2.16.840.1.110212.3.579.2 .531 Unknown [id number] 2.16.840.1.396857.3.579.2 .531 Unknown [id number] 2.16.840.1.053725.3.579.2 .531 Social History Date Type Detail Facility Start: 06-18-2018 End: 12-25-2022 Tobacco smoking status NHIS Never smoked tobacco [facility] Start: 06-18-2018 Tobacco use and exposure Smoke less tobacco non-user [facility] Start: 10-25-2021 End: 02-03-2025 Alcohol intake Current drinker of alcohol (finding) [facility] Start: 06-18-2018 History SDOH Alcohol Comment minimal [facility] Start: 1945 Sex Assigned At Not on file [facility] Tobacco smoking status No Smokin g Status Entered [facility] [place] Start: 04-12-2023 End: 01-22-2024 Sex Assigned At Male [facility] Start: 1945 Sex Assigned At Male F [facility] Tobacco smoking status [facility] Start: 04-12-2023 End: 01-22-2024 History of Social function [facility] Frequency of Alcohol Consumption Not on file [facility] How many standard dr inks containing alcohol do you have on a typical day? 1 or 2 [facility] How often do you hav e 6 or more drinks on 1 occasion? Weekly [facility] Start: 12-24-2022 Alcohol Comment Caffeine intak e: 1-2 cups per day, coffee, soda [facility] Do you belong to any clubs or organizations such as religious groups, unions, fraternal or athletic groups, or [...] Start: 12-27-2011 End: 08-07-2024 Sex Male (finding) [facility] How often do you nee d to have someone help you when you read instructions, pamphlets, or other written material from your doctor or pharmacy [SILS] Often [facility] Medical Equipment Procedure Code Equipment Code Equipment Origin al Text Equipment Identifier Dates Injection, hydrogel spacer Radiotherapy protection spacer [id number] FDA Start: 05-15-2022 Injection, hydrogel spacer Imaging lesion localization marker, implantable ()[id number] FDA Start: 05-15-2022 1 each by In Vit ro route in the morning and 1 each in the evening and 1 each before bedtime. [id number] Start: 07-09-2023 1 each in the mo rning and 1 each in the evening and 1 each before bedtime. [id number] Start: 07-09-2023 GNP Insulin Syri nges 31Gx5/16 31G X 5/16 0.3 ML misc [id number] Start: 07-10-2023 USE DIRECTED to test BLOOD SUGAR THREE TIMES DAILY [id number] Start: 10-17-2023 1 each by Other route in the morning and 1 each in the evening and 1 each before bedtime. [id number] Start: 09-06-2023 Use as needed [id number] Start: 10-01-2023 As needed [id number] Start: 10-17-2023 Use as needed [id number] Start: 09-03-2024 USE DIRECTED to test BLOOD SUGAR IN THE MORNING, IN THE EVENING and BEFORE bedtime [id number] Start: 09-11-2024 USE DIRECTED to test BLOOD SUGAR THREE TIMES DAILY (IN THE MORNING, IN THE EVENING, and BEFORE bedtime) [id number] Start: 09-11-2024 As needed [id number] Start: 12-04-2024 Goals Date Patient Goal Desired Activity /State Functional Status Date Assessment Result Facility 12-28-2023 Functional Status N/A [facility] 04-14-2022 Functional Status N/A [facility] 12-23-2021 Functional Status N/A [facility] Clinical Notes 10-25-2021 to 02-03-2025 Blake Ng MD - 02/03/2025 12:14 PM Fly Ng MD - 02/03/2025 12:14 PM Fly Ng MD - 02/03/2025 12:13 PM Fly Ng MD - 02/03/2025 12:13 PM EDTPatient Instructions Note Date & Type Note Facility 02-03-2025 History of Present illness Narrative Associated Problem(s): Type 2 diabetes mellitus with hyperglycemia, with long-term current use of insulin (HCC) BS controlled and starting to drop low. Decrease lantus to 40 units daily and check BS TID. Stick to ADA diet and limit carbs. Associated Problem(s): Renal calculi Occasional pain and needs procedure but heart cath first 03/06. Associated Problem(s): Peptic ulcer disease Symptoms controlled with nexium and continue. Associated Problem(s): BPH without urinary obstruction Symptoms controlled with flomax and continue. Follow with urology. Associated Problem(s): Benign essential hypertension BP controlled and monitor PRN. Images from the original note were not included. Subjective Patient ID: Zach Chamorro is a 79 y.o. male who presents for Follow-up (6m). Follow up DM, HTN, BPH, GERD, and allergies. Seen for preop clearance last month and reported chest pain. Stress test abnormal and referred to cardiology. Scheduled for heart cath 03/06. Still occasional pain from kidney stones but tylenol helps. Reports BS controlled and range 60-140. Tries to eat well and stick to ADA diet. Denies signs of elevated BS such as polyuria, polyphagia or polydipsia. Recent A1C 5.7. Checking BP PRN and typically controlled. BP normal today. Taking medication daily and tolerating without side effects. GERD controlled with nexium. Denies epigastric pain or burning and not waking up with symptoms. Allergies controlled with medication. No congestion or rhinorrhea. No BOONE or sinus pressure. Ears not plugged or popping. BPH controlled with flomax. Normal stream and not straining to start flow of urine. Not up as much during night. Able to empty all the way and not dribbling. Follows with urology. Review of Systems Constitutional: Negative for fatigue. [...] BP controlled and monitor PRN. Renal calculi Occasional pain and needs procedure but heart cath first 03/06. Type 2 diabetes mellitus with hyperglycemia, with long-term current use of insulin (HCC) - Primary BS controlled and starting to drop low. Decrease lantus to 40 units daily and check BS TID. Stick to ADA diet and limit carbs. Relevant Medications insulin glargine (Lantus SoloStar) 100 UNIT/ML pen Peptic ulcer disease Symptoms controlled with nexium and continue. BPH without urinary obstruction Symptoms controlled with flomax and continue. Follow with urology. documented in this encounter [facility] 01-26-2025 History of Present illness Narrative Images [...] Isabella Powell DPM documented in this encounter [facility] 01-26-2025 Instructions Isabella Powell DPM - 01/26/2025 9:15 AM EDT As noted documented in this encounter [facility] 01-19-2025 Note [place] [facility] Subjective Zach Chamorro is a 79 y.o. 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 ([facility]/HCC) Dyslipidemia Elevated PSA Encounter for [...] (transient ischemic attack) Type 1 diabetes mellitus ([facility]/HCC) Transient cerebral ischemia Type 2 diabetes mellitus with diabetic microalbuminuria, with long-term current use of insulin ([facility]) Type 2 diabetes mellitus with hyperglycemia, with long-term current use of insulin ([facility]) Family History Problem Relation Name Age of [...] mcg tablet extend (more content not included)... [facility] 01-02-2025 History of Present illness Narrative Associated Problem(s): Type 2 diabetes mellitus with hyperglycemia, with long-term current use of insulin (HCC) BS stable and check BS TID. Stick to ADA diet and limit carbs. Associated Problem(s): Thrombocytopenia Mild and stable since 2018. Likely related to aspirin. 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 Notice overall increased fatigue over past few [...] with myocardial perfusion documented in this encounter [facility] 12-29-2024 Hospital Discharge instructions Patient Education [...] if anything looks unusual. Males with a eqvzoz-mwph-jnzsfk risk for skin cancer may want to see a skin care consultant (care technician) for an annual body check. Where to find more information [employer]: cancer.org Centers for Disease Control and Prevention: cdc.gov National Cancer [place]: cancer.gov Contact a health care provider if: [...] provider. Document Revised: 06/05/2023 Document Reviewed: 12/18/2022 [employer] Patient Education 2023 AWID. Follow Up Care 12/28/2023 10:42:14 With:MIKEY ARORA, Jermaine Cano, URL Address: [facility] [address] , [place] [address]- When: Unknown [facility] 12-29-2024 Note Patient Education Oncology Cancer Screening [...] if anything looks unusual. Males with a flnwyy-amxd-ytfnom risk for skin cancer may want to see a skin care consultant (dermatologi (more content not included)... [facility] 11-04-2024 Evaluation note Diagnosis Onset Date Resolution Prostate cancer acute November 04, 2024 9:41am Prostate cancer acute November 04, 2024 9:41am [facility] Work Phone: 1(289) 152-213405-27-2025 [facility] [place] [address] Cancer Center Note Signed Patient: Zach Chamorro MR#: [id number] : 1945 Acct:[id number] Age/Sex: 79 / M Type: DEP AMB Date of Service: 11/04/24 Copies to: Blake Ng MD~ Assessment & Plan A/P (1) Prostate cancer: Plan: Return to clinic with WALLPAPERER Apr 2025 with next PSA Assessment: 78-year-old [...] prostate Patient Instructions: follow-up in 6mo with WALLPAPERER PSA in 6mo CHEMO PLAN No Active [...] as the right anterior medial gland and Clayton 3+3 equal 6 in 1 core at [...] No Known Allergies Allergy (Verified 09/18/23 10:05) [facility] Medical History Medical History (Updated 07/12/22 [...] et al, and the Measurement Committeeof the [employer]. The [employer] symptom index for benign prostatic hyperplasia. J Urol. 1992; 148: 7429-3781. Copyright 1992 [employer] Over the past six months [...] APRN DD/ 0948 Signed By: 11/04/24 1012 [facility]05-12-2025 History of Present illness Narrative * Jaycob Dill, DO - 10/20/2024 11:15 AM EDT Images [...] note was created using voice recognition through [employer]. documented in this encounterSaint [facility] [id number] History of Present illness Narrative* Isabella Powell, JAMEEL - 10/13/2024 9:15 AM EDT Images from [...] understanding. Isabella Powell DPM documented in this encounterSaint [facility]ius [id number] History of Present illness Narrative* Blake Ng [...] Items Addressed This Visit Benign essential hypertension ([facility]) Type 2 diabetes mellitus with hyperglycemia, with long-term current use of insulin ([facility]) Relevant Orders Hemoglobin A1c Microalbumin / creatinine, [...] (Atarax) 25 MG tablet documented in this encounterSaint Alexius [id number] History of Present illness Narrative* Symone Mcmahon MD - 07/21/2024 9:45 AM EST Skin Check Location: Patient requests a skin examination from the waist up Dermatologic history: history of Actinic Keratosis Last visit: 1 year ago Follow up Diagnosis: Nummular eczema Location: ankles Last visit: 1 year ago Symptoms: red, scaly Status: stable Current treatment: Amlactin 12% lotion from special education director. Has TAC 0.1% cream but does not [...] limited to risks of scarring, darker or side sawyer pigmentary changes, recurrence, incomplete removal and infection. [...] Next Visit: 1 year documented in this encounterSaint Alexius [id number] History of Present illness Narrative* Isabella Powell, JAMEEL - 07/07/2024 9:30 AM EST Images from [...] understanding. Isabella Powell DPM documented in this [facility]01-27-2025 Instructions* Patient Instructions* Isabella Powell DPM - 07/07/2024 9:30 AM EST As noted documented in this [facility]01-10-2025 History of Present illness Narrative* Blake Ng MD - 06/20/2024 10:05 AM ESTAssociated Problem(s): Type 2 diabetes mellitus with hyperglycemia, with long-term current use of in sulin ([facility]) BS stable and warned prednisone will raise [...] hyperglycemia, with long-term current use of insulin ([facility]) BS stable and warned prednisone will raise [...] (Levaquin) 750 MG tablet documented in this encounterSaint Alexius HospitalQlcbdbkvwr33-74-6594 History of Present illness Narrative* Isabella Powell, [facility] - 05/15/2024 9:45 AM EST Images from the original note were not included. Subjective Patient ID: Zach Chamorro is a 78 y.o. male who presents for Follow-up (Established pt presents today for 1 month fuv for left foot pain and swelling, pt states has not been painful, but still swelling. PCP: Dr. Ng 01/28/24, A1C: 6.5, BS: 86, SS: 12). [...] views left foot: Weight-bearing: DP, oblique, lateral: 120 10/2023: There are no distinct or interval [...] understanding. Isabella Powell DPM documented in this [facility]12-05-2024 Instructions* Patient Instructions* Isabella Powell DPM - 05/15/2024 9:45 AM EST As noted documented in this [facility]11-11-2024 Telephone encounter Note* Telephone Encounter - Shayna Britton - 04/21/2024 10:57 AM EST Patient is keeping diabetic shoes [facility] [id number] Miscellaneous Notes* Telephone Encounter - Shayna Britton - 04/21/2024 10:57 AM EST Patient is keeping diabetic shoes documented in this encounterSaint Alexius HospitalAzmyfkfedo59-52-1255 History of Present illness Narrative* Isabella Powell, DPM - 04/14/2024 2:45 PM EST Images [...] understanding. Isabella Powell DPM documented in this [facility]11-04-2024 Instructions* Patient Instructions* Isabella Powell DPM - 04/14/2024 2:45 PM EST Instructions as noted documented in this [facility]10-23-2024 History of Present illness Narrative* Isabella Powell DPM - 04/02/2024 1:30 PM EDT Images from the original note were not included. Subjective Patient ID: Zach Chamorro is a 78 y.o. 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 BS: 113 A1C: 7.1/Lv Dr. Ng 01/28/2024/SS: [...] understanding. Isabella Powell DPM documented in this [facility]10-23-2024 Instructions* Patient Instructions* Isabella Powell DPM - 04/02/2024 1:30 PM EDT Acclimating instructions as noted documented in this [facility]10-16-2024 History of Present illness Narrative* Isabella [...] Measurements obtained in the weight-bearing position; utilizing TestPlantnock device. Patient education relative to appropriate sizing [...] understanding. Isabella Powell DPM documented in this [facility]10-16-2024 Instructions* Patient Instructions* Isabella Powell DPM - 03/26/2024 2:30 PM EDT As noted documented in this [facility]10-14-2024 History of Present illness Narrative* Isabella Powell [...] understanding. Isabella Powell DPM documented in this encounterSaint Alexius [id number] Hospital Discharge instructions Patient Education 12/28/2023 10:30:14 [...] include: ?8 oz (237 mL) of milk, pxeoncs-yeolaehreqox-esrnr milk, and calcium- fortifiedfruit juice. Calcium-fortified means [...] ?Spinach (cooked), rhubarb, beets, sweet potatoes, and Austrian chard. ?Peanuts. ?Potato chips, icelandic fries, and baked potatoes with skin on. ?Nuts and nut products. ?Chocolate. If you regularly take a diuretic medicine, make sure to eat at least 1 or 2 servings of fruits or vegetables that are high in potassium each day. These include: ?Avocado. ?Banana. ?[place], prune, carrot, or tomato juice. ?Baked potato. [...] magnesium, fish oil, or vitamin B6. Take bspq-upc-veeyasg and prescription medicines only as told by [...] Casseroles. Pizza. Lasagna. Frozen meals. Potato chips. Bengali fries. The items listed above may not [...] provider. Document Revised: 09/07/2022 Document Reviewed: 09/07/2022 [employer] Patient Education 2022 AWID. Follow Up Care 12/29/2022 08:54:47 With:MIKEY ARORA, Jermaine Cano, URL Address: [address] [place] [address]- When: Unknown [facility] 02-08-2024 History of Present illness Narrative* Symone [...] Current treatments: AmLactin 12% lotion recommended by special education director Established patient All pertinent medical history, medications, [...] 1 year, skin check documented in this encounterSaint Alexius HospitalTcsytjppgc07-21-9793 Progress note Author Rosa Davies [facility] December 13, 2022 10:35am Note Date/Time December 13, 2022 10:09 am [facility] [place] [address] Rad Onc Follow Up Note - OP Signed Patient: Zach Chamorro MR#: [id number] : 1945 Acct:[id number] Age/Sex: 77 / M Type: REG RCR Copies to: MD Jermaine Quintero MD~ Subjective - Service Date/Time Date: 12/13/22 Time: 10:09 - Diagnosis Adenocarcinoma the prostate, Tanna score 3+4= 7, intermediate risk with initial PSA of 5.69, stage T1cN0 M0 - Chief Complaint I am no urinary or bowel complaints - History of Present Illness 77-year-old male with 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, Clayton 3+4=7 disease in 3 cores on the [...] (0.000-4.000) 09/04/22 13:40 Impression: Adenocarcinoma the prostate, Clayton score 3+4= 7, intermediate risk with initial [...] signed by Rosa Davies MD> 12/13/22 1035 [facility] Work Phone: 1(668) 794-636704-03-2023 Progress note Author Rosy Pina [facility] September 11, 2022 1:20pm Note Date/Time September 11, 2022 10:2 1am [facility] [place] [address] Rad Onc Follow Up Note - OP Signed Patient: Zach Chamorro MR#: [id number] : 1945 Acct:[id number] Age/Sex: 77 / M Type: REG RCR Copies to: MD Jermaine Quintreo MD~ Date of Service Service Date: 09/11/22 Assessment & Plan (1) Prostate cancer Plan: Return to clinic December 2022 for PSA Assessment: 77-year-old male with 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, Clayton 3+4equal 7 disease in 3 cores on [...] PI- RADS 4 MR fusion biopsy confirmed Clayton 3+4 equal 7 in 3 cores including the region of interest as well as the right anterior medial gland and Clayton 3+3 equal 6 in 1 core at [...] 09/11/22 1320 [facility] Work Phone: 1(941) 698-719704-03-2023 Progress note Author Rosy Pina [facility] September 11, 2022 1:20pm Note Date/Time September 11, 2022 10:2 1am [facility] [place] [address] Rad Onc Follow Up Note - OP Signed Patient: Zach Chamorro MR#: [id number] : 1945 Acct:[id number] Age/Sex: 77 / M Type: REG RCR [...] PI- RADS 4 MR fusion biopsy confirmed Clayton 3+4 equal 7 in 3 cores including the region of interest as well as the right anterior medial gland and Clayton 3+3 equal 6 in 1 core at [...] signed by Rosy Pina MD> 09/11/22 1320 [facility] Work Phone: 1(575) 578-100202-01-2023 Progress note Author Rosy Pina [facility] July 12, 2022 9:52am Note Date/Time July 12, 2022 9 :36am [facility] [place] [address] Rad Onc Follow Up Note - OP Signed Patient: Zach Chamorro MR#: [id number] : 1945 Acct:[id number] Age/Sex: 76 / M Type: REG RCR Copies to: MD Jermaine Quintero MD~ Date of Service Service Date: 07/12/22 Assessment & Plan (1) Prostate cancer Plan: Return to clinic 2 months for first posttreatment PSA Assessment: 76-year-old male with 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 Multi parametric MRI is consistent with the biopsy findings. There was a singlecore of Clayton 3+3+6 disease that was found on the [...] as the right anterior medial gland and Clayton 3+3 equal 6 in 1 core at [...] signed by Rosy Pina MD> 07/12/22 0952 [facility] Work Phone: 1(461) 805-933602-01-2023 Progress note Author Rosy Pina [facility] July 12, 2022 9:52am Note Date/Time July 12, 2022 9 :36am [facility] [place] [address] Rad Onc Follow Up Note - OP Signed Patient: Zach Chamorro MR#: [id number] : 1945 Acct:[id number] Age/Sex: 76 / M Type: REG RCR Copies to: MD Jermaine Quintero MD~ Date of Service Service Date: 07/12/22 Assessment & Plan (1) Prostate cancer Plan: Return to clinic 2 months for first posttreatment PSA Assessment: 76-year-old male with 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, Clayton 3+4equal 7 disease in 3 cores on [...] PI- RADS 4 MR fusion biopsy confirmed Clayton 3+4 equal 7 in 3 cores including the region of interest as well as the right anterior medial gland and Clayton 3+3 equal 6 in 1 core at [...] MD> 07/12/2252 [facility] Work Phone: 1(185) 219-359112-05-2022 [facility] Consult note Author Rosy Pina [facility] April 27, 2022 1:21pm Note Date/Time April 27, 2022 8:37am [facility] [place] [address] Rad Onc Consult Note - OP Signed Patient: Zach Chamorro MR#: [id number] : 1945 Acct:[id number] Age/Sex: 76 / M Type: REG RCR [...] findings. There is a single core of Clayton 3+3+6 disease that was foundon the left. [...] as the right anterior medial gland and Clayton 3+3 equal 6 in 1 core at [...] been 10 years since his last colonoscopy. 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 I reviewed his MRI and pathology. Multi parametric MRI is consistent with the biopsy findings. There is a single core of Clayton 3+3+6 disease that was foundon the left. There is no extracapsular extension. The patient's gland is largeat 78 mL and he remains on tamsulosin 0.4 mg daily due to the BPH. But a long conversation today regarding the natural history of prostate cancer. Based on these findings patient has 3 options for treatment including active surveillance, surgery, radiation. With a Clayton 3+4 disease I recommend we send a [...] PI- RADS 4 MR fusion biopsy confirmed Clayton 3+4 equal 7 in 3 cores including the region of interest as well as the right anterior medial gland and Clayton 3+3 equal 6 in 1 core at [...] been 10 years since his last colonoscopy. [facility] - Medical History Medical History: Medical [...] 04/27/22 1321 [facility] Work Phone: 1(103) 766-931511-04-2022 Hospital Discharge instructions Patient Education 04/14/2022 11:00:48 [...] who: Are older than age 65. Are -Vietnamese. Are obese. Have a family history of [...] cells. Follow these instructions at home: Take xxwq-ebe-yfnqsbd and prescription medicines only as told by [...] 05/28/2006 Document Revised: 05/10/2018 Document Reviewed: 02/05/2017 [employer] Patient Education 2020 AWID. Follow Up Care 04/12/2022 09:44:29 With:MIKEY ARORA, Jermaine Cano, URL Address: [address] [place] [address]- When: Unknown [facility] 10-18-2022 Hospital Discharge instructions Patient Education 03/28/2022 [...] for your post-operative appointment in 1-2 weeks [phone] or [phone] Follow Up Care 03/16/2022 13:18:55 With:Jermaine JENSEN Address: [facility] [address] [place] [address]- Business (1) When:04/11/2022 12:14:30 [facility]07-15-2022 Hospital Discharge instructions Patient Education 12/23/2021 [...] urethra. Follow these instructions at home: Take aopm-sqk-ejnenbd and prescription medicines only as told by [...] 05/28/2006 Document Revised: 04/22/2019 Document Reviewed: 07/02/2017 [employer] Patient Education 2020 AWID. Follow Up Care 12/17/2020 09:28:14 With:MIKEY ARORA, Jermaine Cano, URL Address: [address] [place], [place] [id number]- When:Within 1 Year(s) Comments:w/ PSA & KUB [facility] 05-17-2022 NoteHNO ID: [id number] Author: Haroldo Sebastian MD Service: ? Author [...] Haroldo Sebastian MD October 25, 2021 1:55 [facility]05-17-2022 History of Present illness Narrative* Haroldo [...] 25, 2021 1:55 PM [facility] Future Appointments Appointment Date:12/29/2022 08:00:00 AM Scheduled Provider:Jermaine JENSEN MD Location:[facility] Appointment Type:URO Office Visit Diagnostic Tests Pending * PSA Free & Total 10/09/22 [facility] evaluation + Plan note Future Appointments Appointment Date:04/14/2022 10:30:00 AM Scheduled Provider:Jermaine JENSEN MD Location:[facility] Appointment Type:URO Procedure 15 min Appointment Date:12/29/2022 08:00:00 AM Scheduled Provider:Jermaine JENSEN MD Location:[facility] Appointment Type:URO Office Visit Diagnostic Tests Pending * Prostate Histology ([facility]) 03/28/22 [facility] Future Appointments Appointment Date:12/29/2022 08:00:00 AM Scheduled Provider:[facility]ENSEN [facility]O Office Visit [facility] evaluation + Plan note Future Appointments Appointment Date:06/30/2024 09:45:00 AM Scheduled Provider:Jermaine JENSEN MD Location:[facility] Appointment Type:URO Office Visit Diagnostic Tests Pending * PSA Total 05/11/24 [facility] evaluation note* Diagnosis Iris nevus, left- Primary Dislocation of intraocular lens, sequela documented [facility] this encounter [facility] noteNo assessment information available[facility] Work Phone: evaluation note* Diagnosis Onset Date Resolution Status Prostate cancer [facility] Work Phone: evaluation note* Diagnosis Nummular eczema- Primary Contact dermatitis and other eczema, due to unspecified cause Seborrheic keratosis Melanocytic nevus of trunk Benign neoplasm of skin of trunk, except scrotum Lentigines Angioma of skin History of actinic keratoses Personal history of diseases of skin and subcutaneous tissue [facility] Diagnosis Onset Date Resolution Status Prostate cancer acute Prostate cancer [facility] Work Phone: evaluwnoce note* Diagnosis Type 2 diabetes mellitus with hyperglycemia, with long-term current use of insulin ([facility]/H[facility])- Primary Benign essential hypertension (CMS/HCC) Essential hypertension, benign BPH without urinary obstruction Peptic ulcer disease Peptic ulcer, unspecified site, unspecified as acute or chronic, without mention of hemorrhage, perforation, or obstruction Seasonal allergic rhinitis due to pollen Chest pain at rest- Primary Unspecified chest pain Type 2 diabetes mellitus with hyperglycemia, with long-term current use of insulin ([facility]) Type 2 diabetes mellitus with hyperglycemia, with long-term current use of insulin ([facility])- Primary Benign essential hypertension ([facility]) Essential hypertension, benign Peptic ulcer disease Peptic ulcer, unspecified site, unspecified as acute or chronic, without mention of hemorrhage, perforation, or obstruction BPH without urinary obstruction Seasonal allergic rhinitis due to pollen Dermatophytosis of nail- Primary Dystrophic nail Other specified disease of nail Diabetic polyneuropathy associated with type 2 diabetes mellitus ([facility]) Encounter for long-term (current) use of insulin ([facility]) Encounter for long-term (current) use of insulin documented in this encounter [facility]* Diagnosis Type 2 diabetes mellitus with hyperglycemia, with long-term current use of insulin ([facility])- Primary Benign essential hypertension ([facility]) Essential hypertension, benign BPH without urinary obstruction Peptic ulcer disease Peptic ulcer, unspecified site, unspecified as acute or chronic, without mention of hemorrhage, perforation, or obstruction Seasonal allergic rhinitis due to pollen Chest pain at rest- Primary Unspecified chest pain Type 2 diabetes mellitus with hyperglycemia, with long-term current use of insulin ([facility]) Type 2 diabetes mellitus with hyperglycemia, with long-term current use of insulin ([facility])- Primary Benign essential hypertension ([facility]) Essential hypertension, benign Peptic ulcer disease Peptic ulcer, unspecified site, unspecified as acute or chronic, without mention of hemorrhage, perforation, or obstruction BPH without urinary obstruction Seasonal allergic rhinitis due to pollen Diabetic polyneuropathy associated with type 2 diabetes mellitus ([facility])- Primary Encounter for long-term (current) use of insulin ([facility]) Encounter for long-term (current) use of insulin documented in this encounter [facility]* Diagnosis Type 2 diabetes mellitus with hyperglycemia, with long-term current use of insulin ([facility])- Primary Benign essential hypertension ([facility]) Essential hypertension, benign BPH without urinary obstruction Peptic ulcer disease Peptic ulcer, unspecified site, unspecified as acute or chronic, without mention of hemorrhage, perforation, or obstruction Seasonal allergic rhinitis due to pollen Chest pain at rest- Primary Unspecified chest pain Type 2 diabetes mellitus with hyperglycemia, with long-term current use of insulin ([facility]) Type 2 diabetes mellitus with hyperglycemia, with long-term current use of insulin [facility] Primary Benign essential hypertension ([facility]) Essential hypertension, benign Peptic ulcer disease Peptic ulcer, unspecified site, unspecified as acute or chronic, without mention of hemorrhage, perforation, or obstruction BPH without urinary obstruction Seasonal allergic rhinitis due to pollen Diabetic polyneuropathy associated with type 2 diabetes mellitus ([facility])- Primary Encounter for long-term (current) use of insulin ([facility]) Encounter for long-term (current) use of insulin documented in this encounter [facility]* Diagnosis Type 2 diabetes mellitus with hyperglycemia, with long-term current use of insulin ([facility])- Primary Benign essential hypertension ([facility]) Essential hypertension, benign BPH without urinary obstruction Peptic ulcer disease Peptic ulcer, unspecified site, unspecified as acute or chronic, without mention of hemorrhage, perforation, or obstruction Seasonal allergic rhinitis due to pollen Chest pain at rest- Primary Unspecified chest pain Type 2 diabetes mellitus with hyperglycemia, with long-term current use of insulin ([facility]) Type 2 diabetes mellitus with hyperglycemia, with long-term current use of insulin ([facility])- Primary Benign essential hypertension ([facility]) Essential hypertension, benign Peptic ulcer disease Peptic ulcer, unspecified site, unspecified as acute or chronic, without mention of hemorrhage, perforation, or obstruction BPH without urinary obstruction Seasonal allergic rhinitis due to pollen Type 2 diabetes mellitus with hyperglycemia, with long-term current use of insulin ([facility])- Primary documented in this encounter [facility]* Diagnosis Type 2 diabetes mellitus with hyperglycemia, with long-term current use of insulin ([facility])- Primary Benign essential hypertension ([facility]) Essential hypertension, benign BPH without urinary obstruction Peptic ulcer disease Peptic ulcer, unspecified site, unspecified as acute or chronic, without mention of hemorrhage, perforation, or obstruction Seasonal allergic rhinitis due to pollen Chest pain at rest- Primary Unspecified chest pain Type 2 diabetes mellitus with hyperglycemia, with long-term current use of insulin ([facility]) Type 2 diabetes mellitus with hyperglycemia, with long-term current use of insulin ([facility])- Primary Benign essential hypertension ([facility]) Essential hypertension, benign Peptic ulcer disease Peptic ulcer, unspecified site, unspecified as acute or chronic, without mention of hemorrhage, perforation, or obstruction BPH without urinary obstruction Seasonal allergic rhinitis due to pollen 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 ([facility])- Primary Diabetic polyneuropathy associated with type 2 diabetes mellitus ([facility]) Swelling of left foot Encounter for long-term (current) use of insulin ([facility]) Encounter for long-term (current) use of insulin documented in this encounter [facility]* Diagnosis Type 2 diabetes mellitus with hyperglycemia, with long-term current use of insulin ([facility])- Primary Benign essential hypertension ([facility]) Essential hypertension, benign BPH without urinary obstruction Peptic ulcer disease Peptic ulcer, unspecified site, unspecified as acute or chronic, without mention of hemorrhage, perforation, or obstruction Seasonal allergic rhinitis due to pollen Chest pain at rest- Primary Unspecified chest pain Type 2 diabetes mellitus with hyperglycemia, with long-term current use of insulin ([facility]) Type 2 diabetes mellitus with hyperglycemia, with long-term current use of insulin ([facility])- Primary Benign essential hypertension ([facility]) Essential hypertension, benign Peptic ulcer disease Peptic ulcer, unspecified site, unspecified as acute or chronic, without mention of hemorrhage, perforation, or obstruction BPH without urinary obstruction Seasonal allergic rhinitis due to pollen Acute non-recurrent maxillary sinusitis- Primary Type 2 diabetes mellitus with hyperglycemia, with long-term current use of insulin ([facility]) documented in this encounter [facility]* Diagnosis Type 2 diabetes mellitus with hyperglycemia, with long-term current use of insulin ([facility])- Primary Benign essential hypertension ([facility]) Essential hypertension, benign BPH without urinary obstruction Peptic ulcer disease Peptic ulcer, unspecified site, unspecified as acute or chronic, without mention of hemorrhage, perforation, or obstruction Seasonal allergic rhinitis due to pollen Chest pain at rest- Primary Unspecified chest pain Type 2 diabetes mellitus with hyperglycemia, with long-term current use of insulin ([facility]) Type 2 diabetes mellitus with hyperglycemia, with long-term current use of insulin ([facility])- Primary Benign essential hypertension ([facility]) Essential hypertension, benign Peptic ulcer disease Peptic ulcer, unspecified site, unspecified as acute or chronic, without mention of hemorrhage, perforation, or obstruction BPH without urinary obstruction Seasonal allergic rhinitis due to pollen Acute non-recurrent maxillary sinusitis- Primary Type 2 diabetes mellitus with hyperglycemia, with long-term current use of insulin ([facility]) Dermatophytosis of nail- Primary Dystrophic nail Other specified disease of nail Diabetic polyneuropathy associated with type 2 diabetes mellitus ([facility]) 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 ([facility]) Encounter for long-term (current) use of insulin ([facility]) Encounter for long-term (current) use of insulin documented in this encounter [facility]* Diagnosis Type 2 diabetes mellitus with hyperglycemia, with long-term current use of insulin ([facility])- Primary Benign essential hypertension ([facility]) Essential hypertension, benign BPH without urinary obstruction Peptic ulcer disease Peptic ulcer, unspecified site, unspecified as acute or chronic, without mention of hemorrhage, perforation, or obstruction Seasonal allergic rhinitis due to pollen Chest pain at rest- Primary Unspecified chest pain Type 2 diabetes mellitus with hyperglycemia, with long-term current use of insulin ([facility]) Type 2 diabetes mellitus with hyperglycemia, with long-term current use of insulin ([facility])- Primary Benign essential hypertension ([facility]) Essential hypertension, benign Peptic ulcer disease Peptic ulcer, unspecified site, unspecified as acute or chronic, without mention of hemorrhage, perforation, or obstruction BPH without urinary obstruction Seasonal allergic rhinitis due to pollen Acute non-recurrent maxillary sinusitis- Primary Type 2 diabetes mellitus with hyperglycemia, with long-term current use of insulin ([facility]) Melanocytic nevus of trunk- Primary Benign neoplasm of skin of trunk, except scrotum Seborrheic keratosis Lentigines Actinic keratosis Capillary angioma Nevus, non-neoplastic Melanocytic nevus of face, other location Epidermal inclusion cyst Sebaceous cyst Nummular eczema Contact dermatitis and other eczema, due to unspecified cause documented in this encounter [facility]* Diagnosis Type 2 diabetes mellitus with hyperglycemia, with long-term current use of insulin ([facility])- Primary Benign essential hypertension ([facility]) Essential hypertension, benign BPH without urinary obstruction Peptic ulcer disease Peptic ulcer, unspecified site, unspecified as acute or chronic, without mention of hemorrhage, perforation, or obstruction Seasonal allergic rhinitis due to pollen Chest pain at rest- Primary Unspecified chest pain Type 2 diabetes mellitus with hyperglycemia, with long-term current use of insulin ([facility]) Type 2 diabetes mellitus with hyperglycemia, with long-term current use of insulin ([facility])- Primary Benign essential hypertension ([facility]) Essential hypertension, benign Peptic ulcer disease Peptic ulcer, unspecified site, unspecified as acute or chronic, without mention of hemorrhage, perforation, or obstruction BPH without urinary obstruction Seasonal allergic rhinitis due to pollen Acute non-recurrent maxillary sinusitis- Primary Type 2 diabetes mellitus with hyperglycemia, with long-term current use of insulin ([facility]) Medicare annual wellness visit, subsequent- Primary Nocturnal leg cramps Pruritus Unspecified pruritic disorder Type 2 diabetes mellitus with hyperglycemia, with long-term current use of insulin ([facility]) Benign essential hypertension ([facility]) Essential hypertension, benign Encounter for long-term current use of medication documented in this encounter [facility]* Diagnosis Type 2 diabetes mellitus with hyperglycemia, with long-term current use of insulin ([facility])- Primary Benign essential hypertension ([facility]) Essential hypertension, benign BPH without urinary obstruction Peptic ulcer disease Peptic ulcer, unspecified site, unspecified as acute or chronic, without mention of hemorrhage, perforation, or obstruction Seasonal allergic rhinitis due to pollen Chest pain at rest- Primary Unspecified chest pain Type 2 diabetes mellitus with hyperglycemia, with long-term current use of insulin ([facility]) Type 2 diabetes mellitus with hyperglycemia, with long-term current use of insulin ([facility])- Primary Benign essential hypertension ([facility]) Essential hypertension, benign Peptic ulcer disease Peptic ulcer, unspecified site, unspecified as acute or chronic, without mention of hemorrhage, perforation, or obstruction BPH without urinary obstruction Seasonal allergic rhinitis due to pollen Acute non-recurrent maxillary sinusitis- Primary Type 2 diabetes mellitus with hyperglycemia, with long-term current use of insulin ([facility]) Medicare annual wellness visit, subsequent- Primary Nocturnal leg cramps Pruritus Unspecified pruritic disorder Type 2 diabetes mellitus with hyperglycemia, with long-term current use of insulin ([facility] [facility] [place] Benign essential hypertension ([facility] [place] Essential hypertension, benign Encounter for long-term current use of medication Hypomagnesemia- Primary Disorders of magnesium metabolism documented in this encounter [facility] HealthcareEvaluation note* Diagnosis Type 2 diabetes mellitus with hyperglycemia, with long-term current use of insulin ([facility] [place] Primary Benign essential hypertension ([facility] [place] Essential hypertension, benign BPH without urinary obstruction Peptic ulcer disease Peptic ulcer, unspecified site, unspecified as acute or chronic, without mention of hemorrhage, perforation, or obstruction Seasonal allergic rhinitis due to pollen Chest pain at rest- Primary Unspecified chest pain Type 2 diabetes mellitus with hyperglycemia, with long-term current use of insulin ([facility] [place] Type 2 diabetes mellitus with hyperglycemia, with long-term current use of insulin ([facility] [place] Primary Benign essential hypertension ([facility] [place] Essential hypertension, benign Peptic ulcer disease Peptic ulcer, unspecified site, unspecified as acute or chronic, without mention of hemorrhage, perforation, or obstruction BPH without urinary obstruction Seasonal allergic rhinitis due to pollen Acute non-recurrent maxillary sinusitis- Primary Type 2 diabetes mellitus with hyperglycemia, with long-term current use of insulin ([facility] [place] Medicare annual wellness visit, subsequent- Primary Nocturnal leg cramps Pruritus Unspecified pruritic disorder Type 2 diabetes mellitus with hyperglycemia, with long-term current use of insulin ([facility] [place] Benign essential hypertension ([facility] [place] Essential hypertension, benign Encounter for long-term current use of medication Dermatophytosis of nail- Primary Dystrophic nail Other specified disease of nail Diabetic polyneuropathy associated with type 2 diabetes mellitus ([facility] [place]) Encounter for long-term (current) use of insulin ([facility] [place]) Encounter for long-term (current) use of insulin documented in this encounter [facility] HealthcareEvaluation note* Diagnosis Type 2 diabetes mellitus with hyperglycemia, with long-term current use of insulin ([facility] [place] Primary Benign essential hypertension ([facility] [place] Essential hypertension, benign BPH without urinary obstruction Peptic ulcer disease Peptic ulcer, unspecified site, unspecified as acute or chronic, without mention of hemorrhage, perforation, or obstruction Seasonal allergic rhinitis due to pollen Chest pain at rest- Primary Unspecified chest pain Type 2 diabetes mellitus with hyperglycemia, with long-term current use of insulin ([facility] [place] Type 2 diabetes mellitus with hyperglycemia, with long-term current use of insulin ([facility] [place] Primary Benign essential hypertension ([facility] [place]) Essential hypertension, benign Peptic ulcer disease Peptic ulcer, unspecified site, unspecified as acute or chronic, without mention of hemorrhage, perforation, or obstruction BPH without urinary obstruction Seasonal allergic rhinitis due to pollen Acute non-recurrent maxillary sinusitis- Primary Type 2 diabetes mellitus with hyperglycemia, with long-term current use of insulin ([facility] [place] Medicare annual wellness visit, subsequent- Primary Nocturnal leg cramps Pruritus Unspecified pruritic disorder Type 2 diabetes mellitus with hyperglycemia, with long-term current use of insulin ([facility] [place] Benign essential hypertension ([facility] [place] Essential hypertension, benign Encounter for long-term current use of medication Left elbow pain- Primary Pain in joint, upper arm documented in this encounter [facility] HealthcareEvaluation note* Diagnosis Onset Date Resolution Status Admit Date Prostate cancer acute November 04, 2024 9:41am Prostate cancer acute November 04, 2024 9:41am [facility] Work Phone: Evaluation note* Diagnosis [...] with long-term current use of insulin ([facility] [place] Medicare annual wellness visit, subsequent- Primary Nocturnal [...] Essential hypertension, benign documented in this encounter [facility] HealthcareEvaluation note* Diagnosis Type 2 diabetes [...] with long-term current use of insulin ([facility] [place]) Medicare annual wellness visit, subsequent- Primary Nocturnal leg cramps Pruritus Unspecified pruritic disorder Type 2 diabetes mellitus with hyperglycemia, with long-term current use of insulin ([facility] [place]) Benign essential hypertension Essential hypertension, benign Encounter for long-term current use of medication Preoperative clearance- Primary Unspecified pre-operative examination Other chest pain Abnormal EKG Nonspecific abnormal electrocardiogram (ECG) (EKG) Renal calculi Calculus of kidney Thrombocytopenia Unspecified thrombocytopenia Type 2 diabetes mellitus with hyperglycemia, with long-term current use of insulin ([facility] [place]) Benign essential hypertension Essential hypertension, benign Dermatophytosis of nail- Primary Dystrophic nail Other specified disease of nail Diabetic polyneuropathy associated with type 2 diabetes mellitus ([facility] [place]) Encounter for long-term (current) use of insulin ([facility] [place]) Encounter for long-term (current) use of insulin documented in this encounter [facility] HealthcareEvaluation note* Diagnosis Type 2 diabetes mellitus with hyperglycemia, with long-term current use of insulin ([facility] [place])- Primary Benign essential hypertension Essential hypertension, benign BPH without urinary obstruction Peptic ulcer disease Peptic ulcer, unspecified site, unspecified as acute or chronic, without mention of hemorrhage, perforation, or obstruction Seasonal allergic rhinitis due to pollen Chest pain at rest- Primary Unspecified chest pain Type 2 diabetes mellitus with hyperglycemia, with long-term current use of insulin ([facility] [place]) Type 2 diabetes mellitus with hyperglycemia, with long-term current use of insulin ([facility] [place] Primary Benign essential hypertension Essential hypertension, benign Peptic ulcer disease Peptic ulcer, unspecified site, unspecified as acute or chronic, without mention of hemorrhage, perforation, or obstruction BPH without urinary obstruction Seasonal allergic rhinitis due to pollen Acute non-recurrent maxillary sinusitis- Primary Type 2 diabetes mellitus with hyperglycemia, with long-term current use of insulin ([facility] [place]) Medicare annual wellness visit, subsequent- Primary Nocturnal leg cramps Pruritus Unspecified pruritic disorder Type 2 diabetes mellitus with hyperglycemia, with long-term current use of insulin ([facility] [place]) Benign essential hypertension Essential hypertension, benign Encounter for long-term current use of medication Preoperative clearance- Primary Unspecified pre-operative examination Other chest pain Abnormal EKG Nonspecific abnormal electrocardiogram (ECG) (EKG) Renal calculi Calculus of kidney Thrombocytopenia Unspecified thrombocytopenia Type 2 diabetes mellitus with hyperglycemia, with long-term current use of insulin (HCC) Benign essential hypertension Essential hypertension, benign Type 2 diabetes mellitus with hyperglycemia, with long-term current use of insulin (HCC)- Primary Benign essential hypertension Essential hypertension, benign BPH without urinary obstruction Peptic ulcer disease Peptic ulcer, unspecified site, unspecified as acute or chronic, without mention of hemorrhage, perforation, or obstruction Renal calculi Calculus of kidney documented in this encounter [facility] Narrative No data available for this section [facility] proglpvm note No data available for this section [facility] progress note Author Rosy Pina [facility] July 12, 2022 9:52am Note Date/Time July 12, 2022 9 :36am [facility] [place] [address] Rad Onc Follow Up Note - OP Signed Patient: Zach Chamorro MR#: [id number] : 1945 Acct:[id number] Age/Sex: 76 / M Type: REG RCR Copies to: MD Jermaine Quintero MD~ Date of Service Service Date: 07/12/22 Assessment & Plan (1) Prostate cancer Plan: Return to clinic 2 months for first posttreatment PSA Assessment: 76-year-old male with 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, Clayton 3+4equal 7 disease in 3 cores on [...] PI- RADS 4 MR fusion biopsy confirmed Clayton 3+4 equal 7 in 3 cores including [...] intact Dictated By: Rosy Pina MD DD/ [id number] Signed By: <Electronically signed by Rosy Pina MD> 07/12/22 5975 [facility] Work Phone: Progress note Author Rosa Davies [facility] December 13, 2022 10:35am Note Date/Time December 13, 2022 10:09 am [facility] at [address] [address] Rad Onc Follow Up Note - OP Signed Patient: Zach Chamorro MR#: [id number] : 1945 Acct:[id number] Age/Sex: 77 / M Type: REG RCR Copies to: MD Jermaine Quintero MD~ Subjective - Service Date/Time Date: 12/13/22 Time: 10:09 - Diagnosis Adenocarcinoma the prostate, Clayton score 3+4= 7, intermediate risk with initial PSA of 5.69, stage [id number] M0 - Chief Complaint I am no urinary or bowel complaints - History of Present Illness 77-year-old male with 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, Clayton 3+4=7 disease in 3 cores on the [...] Protocol: Document 12/13/22 09:34 (Rec: 12/13/22 09:34 SM [id number]) Distress Screening Distress Score: 0 No [...] signed by Rosa Davies MD> 12/13/22 1035 [facility] Work Phone: Progress note Author Rosy Pina [facility] January 10, 2024 10:47am Note Date/Time January 10, 2024 10: 38am [facility] [place] [address] Cancer Center Note Signed Patient: Zach Chamorro MR#: [id number] : 1945 Acct:[id number] Age/Sex: 78 / M Type: REG AMB Date of Service: 01/10/24 Copies to: MD Jermaine Quintero MD~ Assessment & Plan (1) Prostate cancer: Plan: Return to clinic late Apr 2024 with PSA -will transition to 6-month follow-up [id number] as he will be 2 years out. 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 Patient [...] 2022 2.17 November 2022 1.May 0.Sep 0.4 (obone) December 2023 0.800 First follow-up AUA increased [...] No Known Allergies Allergy (Verified 09/18/23 10:05) [facility] Medical History Medical History (Updated 07/12/22 @ 09:37 by Rosy Pina MD) History of Carr's palsy 2017 Neuropathy Nocturia Prostate cancer TIA (transient ischemic attack) 2017 IDDM (insulin dependent diabetes mellitus) Hypertension H/O gastric ulcer Hypercholesteremia Elevated PSA Kidney stones BPH (benign prostatic hyperplasia) Surgical History Surgical History (Updated 07/12/22 @ 09:37 by Rosy Pina MD) History of vasectomy History of foot surgery heel spurs History of reverse total replacement of right shoulder joint History of phacoemulsification of cataract of both eyes with intraocular lens implantation 2018 History of prostate biopsy 03/28/22 Family History [...] times AUA Symptom Score: 5 Source: Julius MJ, Josafat LOWERY Jr, [place] MP, et al, and the Measurement Committeeof the [employer]. The [employer] symptom index for benign prostatic hyperplasia. J Urol. 1992; 148: 2179-7115. Copyright 1992 [employer] IMER Score Over the past [...] signed by Rosy Pina MD> 01/10/24 1047 [facility] Work Phone: Progress note Author [facility] Note Date/Time November 04, 2024 10:07 am [facility] [place] [address] Cancer Center Note Signed Patient: Zach Chamorro MR#: [id number] : 1945 Acct:[id number] Age/Sex: 79 / M Type: DEP AMB Date of Service: 11/04/24 Copies to: Blake Ng MD~ Assessment & Plan A/P (1) Prostate cancer: Plan: Return to clinic with WALLPAPERER Apr 2025 with next PSA Assessment: 78-year-old [...] prostate Patient Instructions: follow-up in 6mo with WALLPAPERER PSA in 6mo CHEMO PLAN No Active [...] No Known Allergies Allergy (Verified 09/18/23 10:05) [facility] Medical History Medical History (Updated 07/12/22 [...] et al, and the Measurement Committeeof the [employer]. The [employer] symptom index for benign prostatic hyperplasia. J Urol. 1992; 148: 5622-9564. Copyright 1992 [employer] Over the past six months [...] <Electronically signed by MARIO Bertrand> 11/04/24 1012 [facility] Work Phone: Reason for referral (narrative) Referred by: Jermaine JENSEN MD [facility] reason for referral (narrative)No reason for referral [facility] Work Phone: Summary Purpose Family History [...] section and content) DATE CREATED AUTHOR 11/29/[address] [facility] DATE CREATED AUTHOR AUTHOR'S ORGANIZ ATION 11/09/2021 [facility] DATE CREATED AUTHOR AUTHOR'S ORGANIZ ATION 07/31/2022 [facility] DATE CREATED AUTHOR AUTHOR'S ORGANIZ ATION 01/07/2025 [facility] DATE CREATED AUTHOR AUTHOR'S ORGANIZ ATION 01/09/2025 [facility] DATE CREATED AUTHOR AUTHOR'S ORGANIZ ATION 01/23/2025 [facility] DATE CREATED AUTHOR AUTHOR'S ORGANIZ ATION 01/31/2025 [facility] DATE CREATED AUTHOR AUTHOR'S ORGANIZ ATION 02/04/2025 [facility] EPIC Source Comments (unrecognize d section and content) In the event this informatio n is protected by the Federal Confidentiality of Alcohol and Drug Abuse Patient Records regulations: The Federal rules restrict any use of the information to criminally investigate or prosecute any alcohol or drug abuse patient.[facility] Reason for Visit (unrecogniz ed section [...] Dr. 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 BS: 113 A1C: 7.1/Lv Dr. Ng 01/28/2024/SS: [...] 104 A1C: 7.4/LV Dr. Ng 01-02-2025/SS: 12 Reason Comments Follow-up 6m Care Teams (unrecognized sec tion and content) [...] September 18, 2023 End: September 18, 2023 Microbiological Analyst Relationship Specialty Start Date End Date Alejandro [...] Active Rosy Pina MD Referring Provider Active Microbiological Analyst Relationship Specialty Start Date End Date Blake Ng MD PCP - General Family Medicine 12/21/22 Microbiological Analyst Relationship Specialty Start Date End Date Blake [...] January 25, 2024 End: January 25, 2024 Microbiological Analyst Relationship Specialty Start Date End Date Blake Ng MD [address] [place] [address] PCP - General Family Medicine 07/24/23 Microbiological Analyst Relationship Specialty Start Date End Date Blake Ng MD [address] [place] [address] PCP - General Family Medicine 07/24/23 Microbiological Analyst Relationship Specialty Start Date End Date Blake Ng MD [address] [place] [address] PCP - General Family Medicine 07/24/23 Microbiological Analyst Relationship Specialty Start Date End Date Blake Ng MD [address] [place] [address] PCP - General Family Medicine 07/24/23 Microbiological Analyst Relationship Specialty Start Date End Date Blake Ng MD [address] [place] [address] PCP - General Family Medicine 07/24/23 Microbiological Analyst Relationship Specialty Start Date End Date Blake Ng MD [address] [place] [address] PCP - General Family Medicine 07/24/23 Microbiological Analyst Relationship Specialty Start Date End Date Blake Ng MD [address] [place] [address] PCP - General Family Medicine 07/24/23 Microbiological Analyst Relationship Specialty Start Date End Date Blake Ng MD [address] [place] [address] PCP - General Family Medicine 07/24/23 Microbiological Analyst Relationship Specialty Start Date End Date Blake Ng MD [address] [place] [address] PCP - General Family Medicine 07/24/23 Microbiological Analyst Relationship Specialty Start Date End Date Blake Ng MD [address] [place] [address] PCP - General Family Medicine 07/24/23 Blake Ng MD [address] [place] [address] PCP - ACO Reach 07/18/24 Microbiological Analyst Relationship Specialty Start Date End Date Blake Ng MD [address] [place] [address] PCP - General Family Medicine 07/24/23 Blake Ng MD [address] [place] [address] PCP - ACO Reach 07/18/24 Microbiological Analyst Relationship Specialty Start Date End Date Blake Ng MD [address] [place] [address] PCP - General Family Medicine 07/24/23 Blake Ng MD [address] [place] [address] PCP - ACO Reach 07/18/24 Microbiological Analyst Relationship Specialty Start Date End Date Blake Ng MD [address] [place] [address] PCP - General Family Medicine 07/24/23 Blake Ng MD [address] [place] [address] PCP - ACO Reach 07/18/24 Microbiological Analyst Relationship Specialty Start Date End Date Blake Ng MD [address] [place] [address] PCP - General Family Medicine 07/24/23 Blake Ng MD [address] [place] [address] PCP - ACO Reach 07/18/24 Team Status: Inactive Member Role Status Dates Blake Ng MD Primary Care Provide r, Attending Provider Active Start: August 06, 2024 End: August 06, 2024 Microbiological Analyst Relationship Specialty Start Date End Date Blake Ng MD [address] [place] [address] PCP - General Family Medicine 07/24/23 Blake Ng MD [address] [place] [address] PCP - ACO Reach 07/18/24 Microbiological Analyst Relationship Specialty Start Date End Date Blake Ng MD [address] [place] [address] PCP - General Family Medicine 07/24/23 Blake Ng MD [address] [place] [address] PCP - ACO Reach 07/18/24 Microbiological Analyst Relationship Specialty Start Date End Date Blake Ng MD [address] [place] [address] PCP - General Family Medicine 07/24/23 Blake Ng MD [address] [place] [address] PCP - ACO Reach 07/18/24 Microbiological Analyst Relationship Specialty Start Date End Date Blake Ng MD [address] [place] [address] PCP - General Family Medicine 07/24/23 Blake Ng MD [address] [place] [address] PCP - ACO Reach 07/18/24 Team Status: [...] December 24, 2024 End: December 24, 2024 Microbiological Analyst Relationship Specialty Start Date End Date Blake Ng MD [address] [place] [address] PCP - General Family Medicine 07/24/23 Blake Ng MD [address] [place] [address] PCP - ACO Reach 07/18/24 Microbiological Analyst Relationship Specialty Start Date End Date Blake Ng MD [address] [place] [address] PCP - General Family Medicine 07/24/23 Blake Ng MD [address] [place] [address] PCP - ACO Reach 07/18/24 Microbiological Analyst Relationship Specialty Start Date End Date Blake Ng MD [address] [place] [address] PCP - General Family Medicine 07/24/23 Blake Ng MD [address] [place] [address] PCP - ACO Reach 07/18/24 Microbiological Analyst Relationship Specialty Start Date End Date Blake Ng MD [address] [place] [address] PCP - General Family Medicine 07/24/23 Blake Ng MD [address] [place] [address] PCP - ACO Reach 07/18/24 Microbiological Analyst Relationship Specialty Start Date End Date Blake Ng MD [address] [place] [address] PCP - General Family Medicine 07/24/23 Blake Ng MD [address] [place] [address] PCP - ACO Reach 07/18/24 Microbiological Analyst Relationship Specialty Start Date End Date Blake Ng MD [address] [place] [address] PCP - General Family Medicine 07/24/23 Blake Ng MD [address] [place] [address] PCP - ACO Reach 07/18/24 Microbiological Analyst Relationship Specialty Start Date End Date Blake Ng MD [address] [place] [address] PCP - General Family Medicine 07/24/23 Blake Ng MD [address] [place] [address] PCP - ACO Reach 07/18/24 Goals (unrecognized [...] BE BASED ON THE PRIMARY CLINICAL RECORDS. [employer] provides no warranty or guarantee of the accuracy or completeness of information in this document.
--- NOTE | 2025-02-20 08:27 | XR_ITS ---
The [address] [address] Patient Name: ZACH TRACY MRN: [id number] date: 1945 Sex: M Assigned Patient Location: ER Current Patient Location: ER Accession/Order Number: [id number] Exam Date: 02/20/2025 08:32 Report Date: 02/20/2025 08:52 At the request of: DANIELLE SAEZ MD Procedure: XR chest 1V PORTABLE AP ERECT CHEST 0833 hours CLINICAL HISTORY: Chest pain and shortness of breath COMPARISON: None The heart is within normal limits. There is no vascular congestion. There may be minor peribronchial thickening. No consolidation is seen. There is no effusion or pneumothorax. The osseous structures are intact. There is endplate spurring at the spine. Patient has a right shoulder prosthesis. XR/XR chest 1V IMPRESSION: POSSIBLE MINOR PERIBRONCHIAL THICKENING NO OTHER ACUTE FINDINGS Impression dictated by: Marita Barrientos M.D. 02/20/2025 8:52 AM Dictation Location: [employer] Electronically authenticated by: [id number] Y Date: 02/20/2025 08:52
--- NOTE | 2025-02-20 08:27 | ECG_ITS ---
The [place] Test Date: 2025-02-20 Pat Name: ZACH TRACY Department: Room: - Gender: Male Neurocritical Care Physician: : 1945 Requested By: SALIMA NG Order Number: [id number] Reading MD: JUICE DELACRUZ Measurements Intervals [place] Rate: 81 P: -30 CO: 140 QRS: -29 QRSD: 86 T: 95 QT: 366 QTc: 404 Interpretive Statements 1100 Sinus rhythm 4068 Nonspecific [place] abnormality 7202 Moderate left axis deviation 9130 borderline ECG Compared to ECG 12/30/2024 08:41:22 T-wave abnormality no longer present Electronically Signed On 02-23-2025 16:41:28 EDT by JUICE DELACRUZ
--- NOTE | 2025-02-20 08:33 | ED.CHESTPAI1 ---
HPI - Chest Pain General Chief Complaint: Chest Pain Stated Complaint: CHEST PAIN, BACK PAIN Time Seen by Provider: 02/20/25 08:11 Source: patient Mode of arrival: walk-in Limitations: no limitations History of Present Illness HPI narrative: The patient is 79-year-old male with history of hypertension diabetes and hyperlipidemia who is also planned for cardiac cath for possible underlying coronary artery disease on March 06, the patient presented to the ER with a increase in the frequency of chest pain that is coming at the band like on the retrosternal area and associated with shortness of breath the patient mentioned that the pain comes for few minutes and he has been given Imdur for the pain, the patient mentioned that he noted that the pain sometimes comes at rest and sometimes with exertion. He also noted that a distant more than walking inside the house will cause him to have chest pain and difficulty breathing The patient last time he had the pain was at 3 AM as well as 6 AM this morning both of them resolved by themselves and he does not have any pain at the moment, the pain is radiating to the back sometime although the patient mentioned that he had this left lower back pain that he mentioned that it is mostly secondary to kidney stone The patient does not have any back or chest pain at the moment Related Data Home Medications ?Medication ?Instructions ?Recorded ?Confirmed allopurinol 300 mg tablet 300 mg PO DAILY 12/30/24 02/20/25 aspirin 81 mg tablet,delayed 81 mg PO DAILY 12/30/24 02/20/25 release (Adult Aspirin Regimen) coenzyme Q10 100 mg capsule (Co 100 mg PO DAILY 12/30/24 02/20/25 Q-10) esomeprazole magnesium 20 mg 20 mg PO QPM 12/30/24 02/20/25 capsule,delayed release ferrous sulfate 325 mg (65 mg 325 mg PO DAILY 12/30/24 02/20/25 iron) tablet (Feosol) insulin glargine 100 unit/mL 40 unit subcut QPM 12/30/24 02/20/25 subcutaneous solution (Lantus U-100 Insulin) insulin lispro 100 unit/mL 8 unit subcut QAM 12/30/24 02/20/25 subcutaneous pen lisinopril 20 mg tablet 20 mg PO QPM 12/30/24 02/20/25 magnesium oxide 400 mg (241.3 mg 400 mg PO BID 12/30/24 02/20/25 magnesium) tablet metformin 1,000 mg tablet 1,000 mg PO BID 12/30/24 02/20/25 metoprolol succinate 50 mg 50 mg PO QPM 12/30/24 02/20/25 tablet,extended release 24 hr multivitamin (Daily Multi-Vitamin 1 tab PO DAILY 12/30/24 02/20/25 tablet) rosuvastatin 10 mg tablet 10 mg PO DAILY 12/30/24 02/20/25 semaglutide 1 mg/dose (4 mg/3 mL) 1 mg subcut QWEEK 12/30/24 02/20/25 subcutaneous pen injector (Ozempic) vitamin B complex 1 tab PO DAILY 12/30/24 02/20/25 dutasteride 0.5 mg capsule 0.5 mg PO BEDTIME 02/20/25 02/20/25 isosorbide mononitrate 30 mg 30 mg PO DAILY 02/20/25 02/20/25 tablet,extended release 24 hr vit C 250 mg-vit E 90 mg-zinc 40 1 tab PO BID 02/20/25 02/20/25 mg-copper 1 [id number] capsule (PreserVision AREDS-2) Allergies Allergy/AdvReac Type Severity Reaction Status Date / Time No Known Drug Allergies Allergy Verified 12/30/24 10:20 Review of Systems ROS Status of ROS 10 or more systems reviewed and unremarkable except as noted in history and below [facility] Medical History (Updated 02/20/25 @ 09:40 by Chanelle Butt MD) Arthritis ?M19.90 - Unspecified osteoarthritis, unspecified site (ICD-10) Heart murmur ?R01.1 - Cardiac murmur, unspecified (ICD-10) History of blood transfusion ?Z92.89 - Personal history of other medical treatment (ICD-10) 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) Bleeding ulcer ?K28.4 - Chronic or unspecified gastrojejunal ulcer with hemorrhage (ICD-10) Macular degeneration ?H35.30 - Unspecified macular degeneration (ICD-10) Diabetic retinopathy ?E11.319 - Type 2 diabetes mellitus with unspecified diabetic retinopathy without macular edema (ICD-10) Diabetes ?E11.9 - Type 2 diabetes mellitus without complications (ICD-10) Hypercholesterolemia ?E78.00 - Pure hypercholesterolemia, unspecified (ICD-10) Hypertension ?I10 - Essential (primary) hypertension (ICD-10) Gastric ulcer ?K25.9 - Gastric ulcer, unspecified as acute or chronic, without hemorrhage or perforation (ICD-10) Erectile dysfunction ?N52.9 - Male erectile dysfunction, unspecified (ICD-10) Back pain ?M54.9 - Dorsalgia, unspecified (ICD-10) BPH (benign prostatic hyperplasia) ?N40.0 - Benign prostatic hyperplasia without lower urinary tract symptoms (ICD-10) TIA (transient ischemic attack) ?G45.9 - Transient cerebral ischemic attack, unspecified (ICD-10) Prostate cancer ?C61 - Malignant neoplasm of prostate (ICD-10) Kidney stones ?N20.0 - Calculus of kidney (ICD-10) Hematuria ?R31.9 - Hematuria, unspecified (ICD-10) Surgical History (Updated 12/30/24 @ 10:31 by Leelee Brito NP) S/P ureteral stent placement ?Z96.0 - Presence of urogenital implants (ICD-10) History of tonsillectomy and adenoidectomy ?Z90.89 - Acquired absence of other organs (ICD-10) 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 - Presence of unspecified artificial shoulder joint (ICD-10) H/O knee surgery ?Z98.890 - Other specified postprocedural states (ICD-10) H/O foot surgery ?Z98.890 - Other specified postprocedural states (ICD-10) H/O lithotripsy ?Z98.890 - Other specified postprocedural states (ICD-10) H/O prostate biopsy ?Z98.890 - Other specified postprocedural states (ICD-10) Family History (Updated 12/30/24 @ 10:31 by Leelee Brito NP) Other Family history of diabetes mellitus Family history of hypertension Family history of myocardial infarction Family history of stroke Social History (Updated 12/30/24 @ 10:24 by Leelee Brito NP) Within the past year, how often did you have a drink containing alcohol: monthly or less Smoking status: Never smoker Non-prescribed substance use: denies use Highest level of school completed/degree received: high school graduate Little interest or pleasure in doing things: not at all Feeling down, depressed, or hopeless: not at all Exam Narrative Exam Narrative: Nurses notes and vital signs reviewed and patient is not hypoxic. General: Well-appearing and in no apparent distress. Skin: Warm, dry, no pallor noted. No rash. Head: Normocephalic, atraumatic. Neck: Supple, non-tender. Cardiovascular: Regular Rate and Rhythm significant aortic murmur noted Respiratory: No accessory muscle use or respiratory distress. Lungs are clear to auscultation, no wheezing, rales or rhonchi Chest Wall: no tenderness Back: No midline thoracic or lumbar vertebral tenderness. No CVA tenderness Musculoskeletal: normal ROM, no calf or popliteal tenderness, no lower extremity edema/swelling GI: Abdomen is soft, non-distended. Normal bowel sounds. No masses appreciated. No tenderness to palpation. No rebound, guarding, or rigidity noted. Neurological: A&O x4. No cranial nerve dysfunction observed. Constitutional Vital Signs, click to edit/add: Last Vital Signs Temp 98.0 F 02/20/25 08:13 Pulse 86 02/20/25 08:13 Resp 18 02/20/25 08:13 BP 173/100 H 02/20/25 08:13 Pulse Ox 95 02/20/25 08:37 O2 Del Method Room Air 02/20/25 08:37 Course Vital Signs Vital signs: Vital Signs Temperature 98.0 F 02/20/25 08:13 Pulse Rate 86 02/20/25 08:13 Respiratory Rate 18 02/20/25 08:13 Blood Pressure 173/100 H 02/20/25 08:13 Pulse Oximetry 96 02/20/25 08:13 Oxygen Delivery Method Room Air 02/20/25 08:13 Temperature 98.0 F 02/20/25 08:13 Pulse Rate 86 02/20/25 08:13 Respiratory Rate 18 02/20/25 08:13 Blood Pressure 173/100 H 02/20/25 08:13 Pulse Oximetry 95 02/20/25 08:37 Oxygen Delivery Method Room Air 02/20/25 08:37 MDM - Chest Pain MDM Narrative Medical decision making narrative: The patient EKG showing sinus rhythm with a heart rate of [address] elevation or depression there is T wave inversion in lead aVL which was seen another EKG Chest x-ray showed no acute pathology CBC and chemistry showed no acute pathology with first set of troponins not elevated Patient still pain-free his blood pressure right now is 118/65 The patient case discussed with and since the patient was planned to get a cardiac cath the plan right now since the patient is n.p.o. is to transfer him to [facility] to get the cardiac cath done The patient case was discussed with the [facility] hospitalist staff and pt was accepted to be admitted under Dr. Renee Lab Data Labs: Lab Results 02/20/25 02/20/25 Range/Units 08:22 09:30 WBC 6.2 (4.0-11.0) 10^3/uL RBC 3.63 L (4.70-6.10) 10^6/uL Hgb 12.2 L (14.0-18.0) g/dL Hct 33.5 L (42.0-54.0) % MCV 92.3 (80.0-94.0) fL MCH 33.6 (25.9-34.0) pg MCHC 36.4 H (29.9-35.2) g/dL RDW 13.5 (11.0-15.0) % Plt Count 135 L (150-450) 10^3/uL MPV 8.6 L (9.5-13.5) fL Neut % (Auto) 68.9 (43.0-75.0) % Lymph % (Auto) 19.0 L (20.5-60.0) % [place] % (Auto) 5.7 (1.7-12.0) % Eos % (Auto) 5.4 (0.9-7.0) % Baso % (Auto) 0.7 (0.2-2.0) % Neut # (Auto) 4.2 (1.4-6.5) 10^3/uL Lymph # (Auto) 1.2 (1.2-3.8) 10^3/uL [place] # (Auto) 0.4 (0.3-0.8) 10^3/uL Eos # (Auto) 0.3 (0.0-0.7) 10^3/uL Baso # (Auto) 0.0 (0.0-0.1) 10^3/uL Abs Immat Gran (auto) 0.02 (0.00-0.03) 10^3/uL Imm/Tot Granulo (auto) 0.3 (0.0-0.5) % PT 10.3 (9.0-11.6) sec INR 0.97 Sodium 136 (136-145) mmol/L Potassium 4.6 (3.5-5.1) mmol/L Chloride 101 (98-107) mmol/L Carbon Dioxide 25.1 (21.0-32.0) mmol/L Anion Gap 14.5 BUN 21.0 H (7.0-18.0) mg/dL Creatinine 0.72 (0.70-1.30) mg/dL Est GFR ( Amer) >60 (>=60 mL/min/1.73m^2) Est GFR (Non-Af Amer) >60 (>=60 mL/min/1.73m^2) BUN/Creatinine Ratio 29.2 Glucose 174 H (74-106) mg/dL Calcium 9.0 (8.5-10.1) mg/dL Total Bilirubin 0.6 (0.2-1.0) mg/dL AST 22 (15-37) U/L ALT 35 (16-63) U/L Alkaline Phosphatase 80 (46-116) U/L Troponin I High Sens 8.9 (4.0-76.1) pg/mL Total Protein 7.2 (6.4-8.2) g/dL Albumin 3.8 (3.4-5.0) g/dL Globulin 3.4 g/dL Albumin/Globulin Ratio 1.1 Urine Color Lt. yellow (YELLOW) Urine Clarity Clear (CLEAR) Urine pH 6.5 (5.0-9.0) Ur Specific [place] 1.020 (1.005-1.025) Urine Protein Negative (NEG/TRACE) mg/dL Urine Glucose (UA) Negative (NEGATIVE) mg/dL Urine Ketones Negative (NEGATIVE) mg/dL Urine Occult Blood Negative (NEGATIVE) Urine Nitrite Negative (NEGATIVE) Urine Bilirubin Negative (NEGATIVE) Urine Urobilinogen 0.2 (0.2-1.0) EU/dL Ur Leukocyte Esterase Negative (NEGATIVE) Discharge Plan Discharge Chief Complaint: Chest Pain Clinical Impression: Unstable angina Prescriptions / Home Meds: No Action insulin glargine [Lantus U-100 Insulin] 100 unit/mL solution 40 unit SUBCUT QPM allopurinol 300 mg tablet 300 mg PO DAILY metformin 1,000 mg tablet 1,000 mg PO BID rosuvastatin 10 mg tablet 10 mg PO DAILY metoprolol succinate 50 mg tablet extended release 24 hr 50 mg PO QPM lisinopril 20 mg tablet 20 mg PO QPM Ozempic 1 mg/dose (4 mg/3 mL) pen injector 1 mg SUBCUT QWEEK insulin lispro 100 unit/mL insulin pen 8 unit subcut QAM magnesium oxide 400 mg (241.3 mg magnesium) tablet 400 mg PO BID esomeprazole magnesium 20 mg capsule,delayed release(DR/EC) 20 mg PO QPM vitamin B complex Tablet 1 tab PO DAILY ferrous sulfate [Feosol] 325 mg (65 mg iron) tablet 325 mg PO DAILY coenzyme Q10 [Co Q-10] 100 mg capsule 100 mg PO DAILY aspirin [Adult Aspirin Regimen] 81 mg tablet,delayed release (DR/EC) 81 mg PO DAILY multivitamin [Daily Multi-Vitamin] Tablet 1 tab PO DAILY PreserVision AREDS-2 250-90-40-1 mg capsule 1 tab PO BID isosorbide mononitrate 30 mg tablet extended release 24 hr 30 mg PO DAILY dutasteride 0.5 mg capsule 0.5 mg PO BEDTIME Print Language: Faroese Referrals: Blake Larson MD [Primary Care Provider, Family Practice] - 1 week
[2025-02-20 08:34] LABS: Hematocrit 33.5 % (42.0-54.0); Hemoglobin 12.2 g/dL (14.0-18.0); Immature Granulocytes Abs Auto 0.02 10^3/uL (0.00-0.03); Immature Granulocytes Pct Auto 0.3 % (0.0-0.5); Lymphocytes Absolute Auto 1.2 10^3/uL (1.2-3.8); Mean Corpuscular HGB Conc 36.4 g/dL (29.9-35.2); Mean Corpuscular Hemoglobin 33.6 pg (25.9-34.0); Mean Corpuscular Volume 92.3 fL (80.0-94.0); Platelet Count 135 10^3/uL (150-450); Red Blood Count 3.63 10^6/uL (4.70-6.10); White Blood Count 6.2 10^3/uL (4.0-11.0)
[2025-02-20 08:41] LABS: INR 0.97; Prothrombin Time 10.3 sec (9.0-11.6)
[2025-02-20 08:46] LABS: Alanine Aminotransferase 35 U/L (16-63); Albumin Globulin Ratio 1.1; Albumin Level 3.8 g/dL (3.4-5.0); Alkaline Phosphatase 80 U/L (46-116); Anion Gap 14.5; Aspartate Amino Transferase 22 U/L (15-37); Blood Urea Nitrogen 21.0 mg/dL (7.0-18.0); Calcium 9.0 mg/dL (8.5-10.1); Carbon Dioxide 25.1 mmol/L (21.0-32.0); Chloride 101 mmol/L (98-107); Estimated GFR (African America >60 (>=60 mL/min/1.73m^2); Estimated GFR (Non-African Ame >60 (>=60 mL/min/1.73m^2); Globulin 3.4 g/dL; Glucose 174 mg/dL (74-106); Potassium 4.6 mmol/L (3.5-5.1); Sodium 136 mmol/L (136-145); Total Protein 7.2 g/dL (6.4-8.2)
[2025-02-20 09:39] LABS: Glucose Urine UA NEGATIVE (NEGATIVE)
== END 2025-02-20 12:50 | disposition short-term general hospital (02) ==
PROVIDERS: Emergency Provider Emergency Medicine; PCP Family Medicine
DX: I20.0 Unstable angina (principal); R07.9 Chest pain, unspecified; R06.02 Shortness of breath; I10 Essential (primary) hypertension; E11.9 Type 2 diabetes mellitus without complications; E78.5 Hyperlipidemia, unspecified; Z79.4 Long term (current) use of insulin; Z79.84 Long term (current) use of oral hypoglycemic drugs; Z79.85 Long-term (current) use of injectable non-insulin antidiabetic drugs
CPT/HCPCS: 36415; 71045; 80053; 81003; 84484; 85025; 85610; 93005; 99285

== ENCOUNTER 2025-04-25 08:02 | Outpatient (OUT) | payer MEDICARE, SELFPAY ==
--- OUTSIDE RECORDS SUMMARY | 2025-04-25 08:07 | XMS_ITS | Clinical Summary ---
Author Organization [facility] Address [address] 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 Role Phone Unavailable Primary Care Provider Unavailabl e Social History Tobacco UseTypesPacks/DayYears UsedDateSmoking Tobacco: Never AssessedSex and Gender InformationValueDate RecordedSex Assigned at BirthNot on fileLegal Sex Male05/06/2022 9:29 PM ESTGender IdentityNot on fileSexual OrientationNot on file Plan of Treatment Health MaintenanceDue DateLast DoneCommentsLipid Panel1945Medicare Annual Wellness Visit (AWV)1945Hepatitis C Ivxhaisyn03/12/1964DTaP/Tdap/Td Vaccines (1 - Tdap)1967Pneumococcal Vaccine (1 of 1 - PCV)1995Zoster Vaccines (1 of 2)1995RSV High Risk: (Elderly (60+) or Population) (1 - 1-dose 75+ series)2020Influenza Vaccine (#1)2025OVID-19 Vaccine ( - season)2025HIB VaccinesAged OutNo longer eligible based on patient's age to complete this topicHPV VaccinesAged OutNo longer eligible based on patient's age to complete this topicHepatitis A VaccinesAged OutNo longer eligible based on patient's age to complete this topicHepatitis B VaccinesAged OutNo longer eligible based on patient's age to complete this topic IPV VaccinesAged OutNo longer eligible based on patient's age to complete this topicMeningococcal VaccineAged OutNo longer eligible based on patient's age to complete this topicRotavirus VaccinesAged OutNo longer eligible based on patient's age to complete this topic Insurance
--- OUTSIDE RECORDS SUMMARY | 2025-04-25 08:07 | XMS_ITS | Clinical Summary ---
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 05/07/2018Active lisinopril (ZESTRIL, PRINIVIL) 40 mg tablet Take 40 mg by mouth once daily. 05/21/2018Active allopurinol (ZYLOPRIM) 300 mg tablet Take 300 mg by mouth once daily.05/21/2018Active tamsulosin ER (FLOMAX) 0.4 mg cap Take 0.4 mg by mouth once daily.05/21/2018Active rosuvastatin (CRESTOR) 10 mg tablet Take 10 mg by mouth once daily.04/14/2018Active esomeprazole (NEXIUM) 40 mg capsule Take 40 mg by mouth once daily.Active LANTUS U-100 INSULIN 100 unit/mL injection Inject 50 Units subcutaneously daily at bedtime.05/21/2018Active TRULICITY 1.5 mg/0.5 mL pnij Inject 1.5 mg subcutaneously once each week.06/12/2018Active cyanocobalamin (VITAMIN B-12) 1,000 mcg tab Take 1,000 mcg by mouth once daily.Active antiox #8/om3/dha/epa/lut/zeax (PRESERVISION AREDS 2, OMEGA-3, ORAL) Take 1 tablet by mouth twice daily. Active meloxicam (MOBIC) 15 mg tablet Take 15 mg by mouth once daily.Active aspirin, enteric coated (ADULT LOW DOSE ASPIRIN) 81 mg EC tablet Take 81 mg by mouth once daily.Active acetaminophen (TYLENOL) 325 mg tablet Take 650 mg by mouth every 6 hours as needed.Active amLODIPine (NORVASC) 5 mg tablet Take 5 mg by mouth once daily.11/04/2018Active Active Problems ProblemNoted DateDiagnosed DateIris nevus, left06/18/2018 Family History Medical HistoryRelationCommentsDiabetesBrotherHypertensionBrotherDiabetesMother HypertensionMotherAmblyopiaNo Family HistoryBlindnessNo Family HistoryCancerNo Family HistoryCataractNo Family HistoryDetached RetinaNo Family HistoryGlaucoma No Family HistoryHeartNo Family HistoryMacular DegenNo Family HistoryStrabismus No Family HistoryRelationStatusCommentsBrotherMother Social History Tobacco UseTypesPacks/DayYears UsedDateSmoking Tobacco: NeverSmokeless Tobacco: NeverAlcohol UseStandard Drinks/WeekCommentsYes0 (1 standard drink = 0.6 oz pure alcohol)minimalArea Deprivation IndexAnswerDate RecordedNational Score (1-100), lower number is lower [id number] Score (1-10), lower number is lower riskNot on file3Data from: https://www.neighborhoodatlas.medicine.[facility].edu/. Last address used for [id number] Sex and Gender InformationValueDate RecordedSex Assigned at BirthNot on fileLegal FjnHhwi0710/02/2013 12:52 PM EDT Gender IdentityNot on fileSexual OrientationNot on file Plan of Treatment Health MaintenanceDue DateLast DoneCommentsAnxiety Emndwvfdh59/12/1964Depression Ybkzeqbpy38/12/1964DTaP,Tdap,Td Vaccine (1 - Tdap)1964Pneumococcal Vaccine: 50+ (1 of 1 - PCV)1995Shingrix Vaccine (1 of 2)1995RSV Vaccine (1 - 1-dose 75+ series)1Diabetes Nsejwouvh69/, 08/29/2017, 08/29/2017Advance Directive Hjdschirpm23/01/2025ovid-19 Vaccine (2024- season)2025Influenza Vaccine (#1)2025 Insurance Care Teams Team MemberRelationshipSpecialtyStart DateEnd Date Alejandro Davenport DO PCP - GeneralFamily Medicine10/02/13
--- OUTSIDE RECORDS SUMMARY | 2025-04-25 08:07 | XMS_ITS | Clinical Summary ---
Author Organization [facility] Healthcare Address [address] [place] [address] Care Team Providers Care Automation Technician Name Role Phone Blake Larson MD Primary Care Provider [phone] Blake Larson MD Unavailable Allergies No known active allergies Medications MedicationSigDispense QuantityRefillsLast FilledStart DateEnd DateStatus Cyanocobalamin (Vitamin B12) 1000 MCG tablet controlled-release 1 (one) time each day at the same timeActive esomeprazole (NexIUM) [address] capsule Take 40 mg by mouth in the morning. Take before meals.Active ferrous sulfate 325 (65 Fe) MG tablet 1 (one) time each day at the same timeActive Multiple Vitamin (Multi Vitamin) tablet 1 (one) time each day at the same timeActive Multiple Vitamins-Minerals (PreserVision AREDS) tablet Active Blood Glucose Monitoring Suppl (True Metrix Meter) w/Device kit Indications:Type 2 diabetes mellitus with hyperglycemia, with long-term current use of insulin (HCC)1 each in the morning and 1 each in the evening and 1 each before bedtime. 1 kit 08/01/2023ctive Accu-Chek Softclix Lancets lancets Indications:Type 2 diabetes mellitus with hyperglycemia, with long-term current use of insulin (HCC)USE DIRECTED to test BLOOD SUGAR THREE TIMES DAILY 100 each ctive semaglutide (Ozempic, 1 MG/DOSE,) 4 MG/3ML solution pen-injector Indications:Type 2 diabetes mellitus with hyperglycemia, with long-term current use of insulin ([facility])Inject 1 mg under the skin 1 (one) time per week 3 each 5Active allopurinol (Zyloprim) 300 MG tablet Indications:History of renal calculiTake 1 tablet (300 mg) by mouth Daily 90 tablet tive metFORMIN (Glucophage) 1000 MG tablet Indications:Type 2 diabetes mellitus with hyperglycemia, with long-term current use of insulin (HCC),Hypercholesterolemia,Elevated PSA,DyslipidemiaTake 1 tablet (1,000 mg) by mouth in the morning and 1 tablet (1,000 mg) in the evening. Take with meals. 180 tablet ctive lisinopril 20 MG tablet Indications:Type 2 diabetes mellitus with hyperglycemia, with long-term current use of insulin (HCC),Hypercholesterolemia,Elevated PSA,DyslipidemiaTake 1 tablet (20 mg) by mouth 1 (one) time each day at the same time 90 tablet ctive metoprolol succinate XL (Toprol-XL) 50 MG 24 hr tablet Indications:Type 2 diabetes mellitus with hyperglycemia, with long-term current use of insulin (HCC),Hypercholesterolemia,Elevated PSA,DyslipidemiaTake 1 tablet (50 mg) by mouth Daily 90 tablet ctive rosuvastatin (Crestor) 10 MG tablet Indications:Type 2 diabetes mellitus with hyperglycemia, with long-term current use of insulin (HCC),Hypercholesterolemia,Elevated PSA,DyslipidemiaTake 1 tablet (10 mg) by mouth in the morning. 90 tablet ctive True Metrix Blood Glucose Test test strip Indications:Type 2 diabetes mellitus with hyperglycemia, with long-term current use of insulin (HCC)USE DIRECTED to test BLOOD SUGAR IN THE MORNING, IN THE EVENING and BEFORE bedtime 100 strip 1105Active True Metrix Blood Glucose Test test strip Indications:Type 2 diabetes mellitus with hyperglycemia, with long-term current use of insulin (HCC)USE DIRECTED to test BLOOD SUGAR THREE TIMES DAILY (IN THE MORNING, IN THE EVENING, and BEFORE bedtime) 100 strip 1105Active insulin syringe-needle U-100 (TechLITE Insulin Syringe) 31G X 5/16 1 mL misc Indications:Type 2 diabetes mellitus with hyperglycemia, with long-term current use of insulin ([facility])As needed 100 each 5Active isosorbide mononitrate ER (Imdur) 30 MG 24 hr tablet Take 30 mg by mouth in the morning./6Active Magnesium Oxide, Elemental, 400 MG tablet Indications:HypomagnesemiaTake 400 mg by mouth in the morning and 400 mg in the evening and 400 mg before bedtime. 90 tablet 505Active Additional Information Patient not taking.Reported on 02/03/2025 dutasteride (Avodart) 0.5 MG capsule Take 0.5 mg by mouth DailyActive insulin glargine (Lantus SoloStar) 100 UNIT/ML pen Indications:Type 2 diabetes mellitus with hyperglycemia, with long-term current use of insulin ([facility])Inject 40 Units under the skin at rsluxxi61/26/2025Active Active Problems ProblemNoted DateDiagnosed DateGross runyuyihn66/25/2025Preoperative clearance 01/02/2025 Assessment & Plan (01/02/2025 12:55 [...] 7 days prior to surgery. Other chest pain01/02/2025 Assessment & Plan (01/02/2025 12:54 PM EDT): Increased discomfort and fatigue. Likely related to dehydration and muscular but patient with risk factors for CAD. Check lexiscan cardiolyte stress test. Iaytyjqpqqfmuzmx25/25/2025 Assessment & Plan (01/02/2025 12:56 PM EDT): Mild and stable since 2017. Likely related to aspirin. Abnormal EKG001/02/2025 Assessment & Plan (01/02/2025 12:53 PM EDT): EKG with T changes but present on EKG in 2023 prior to stress test. Likely benign. Type 2 diabetes mellitus with diabetic microalbuminuria, with long-term current use of /03/2516Hjdrcogpgdlmxo16/27/2025Medicare annual wellness visit, bhoavnurug98/25/2025 Assessment & Plan (08/05/2024 12:08 PM EST): Reviewed labs. Discussed proper diet and regular aerobic exercise. Need aerobic exercise 5-6 days a week for 30 minutes at a time. Smaller portions and limit total calories. Tetanus every 10 years. Advised not to smoke. Charcot joint of left foot08/05/2024Nocturnal leg mwulbn6308/05/2024 Assessment & Plan (08/05/2024 12:08 PM EST): Frequent cramps and check labs. Increase water intake and stretch at bedtime. OTC supplement helps and try nightly prior to bed. If no improvement can try flexeril at bedtime. Owlyepez72/25/2025 Assessment & Plan (08/05/2024 12:08 PM EST): Skin itchy but no rash. Likely related to dryness. Use hydroxyzine PRN. Use lotion several times a day. Erectile kgbxljgaamf94/19/2024History of prostate mlnaet5001/28/2024Encounter for long-term current use of lfrciutavm98/15/8117Gvukdsligjsz62/21/2024Primary osteoarthritis of right nzolqcbg38/21/2024Type 2 diabetes mellitus with hyperglycemia, with long-term current use of iphrcoq6308/01/2023 Assessment & Plan (02/03/2025 12:14 PM EDT): [...] typically controlled. Due for A1C. Peptic ulcer kirbvsj9808/01/2023 Assessment & Plan (02/03/2025 12:13 PM EDT): Symptoms controlled with nexium and continue. Assessment & Plan (01/28/2024 9:51 AM EDT): Symptoms controlled with nexium and continue. Assessment & Plan (08/01/2023 2:22 PM EST): Symptoms controlled with nexium and continue. Diabetic retinopathy associated with type 2 diabetes /21/2024PH without urinary scnsiocuybu90/21/2024 Assessment & Plan (02/03/2025 12:13 PM EDT): Symptoms controlled with flomax and continue. Follow with urology. Assessment & Plan (01/28/2024 9:51 AM EDT): Symptoms controlled with flomax and continue. Follow with urology. Assessment & Plan (08/01/2023 2:22 PM EST): Symptoms controlled with flomax and continue. Seasonal allergic rhinitis due to ivzaan8308/01/2023 Assessment & Plan (01/28/2024 9:51 AM EDT): Symptoms controlled with medication and continue. Assessment & Plan (08/01/2023 2:22 PM EST): Symptoms controlled with medication and continue. Elevated PSA12/25/2022History of gastric ulcer12/25/2022History of renal calculi 12/25/2022enign essential dieeyxdgznzd78/17/2023 Assessment & Plan (02/03/2025 12:13 PM EDT): BP controlled and monitor PRN. Assessment & Plan (01/02/2025 12:52 PM EDT): BP controlled and monitor PRN. Assessment & Plan (01/28/2024 9:51 AM EDT): BP controlled and monitor PRN. Assessment & Plan (08/01/2023 2:22 PM EST): BP controlled and monitor PRN. Renal zljugsj5112/25/2022 Assessment & Plan (02/03/2025 12:14 PM EDT): Occasional pain and needs procedure but heart cath first 03/06. Assessment & Plan (01/02/2025 12:55 PM EDT): Follow with urology for removal. Presence of right artificial shoulder joint12/25/2022Localized, primary osteoarthritis of hand12/25/2022Rupture of right rotator cuff12/25/2022Tear of medial meniscus of knee12/25/2022 Overview (12/25/2022): LEFT KNEE TIA (transient ischemic attack)12/25/2022Reactive eaonivqqaarvneo32/24/2020Iris nevus, left06/18/2018 Resolved Problems ProblemNoted DateDiagnosed DateResolved DateAcute non-recurrent maxillary /10/90816408/05/2024 Assessment & Plan (06/20/2024 10:04 AM EST): [...] if no better or worse callfor re-evaluation. Chest pain at rest Assessment & Plan (08/13/2023 11:46 AM EST): Pain getting worse and multiple risk factors for CAD including DM, HTN, and dyslipidemia. Check treadmill cardiolyte stress test. Will refer to cardiology in [place] after obtain results. If pain worsens go to ER. BPH with urinary doxzuefuceo18/17/202302/6308Vnoxclcrliaddvdnedbk74/17/2023 01/20/20253483Favienfe01Pressure ulcer of left heel, stage 2 /rostate qyglet26/Type 2 diabetes mellitus with foot ulcer Encounters DateTypeDepartmentCare MkjxHfbyqlptvtn24/26/2025 10:30 AM EDTOffice Visit [facility] [address] [address] Blake Larson MD Type 2 diabetes mellitus with hyperglycemia, with long-term current use of insulin (HCC) (Primary Dx); Benign essential hypertension ; BPH without urinary obstruction; Peptic ulcer disease; Renal cjfeurn1402/03/2025amboo flowsheet [facility] [address] [place] [id number] Blake Larson MD 02/02/2025Results Follow-Up [facility] [address] [place] [address] Blake Larson MD ALL CBC WITH AUTO DIFF, MLR HEMOGLOBIN A1C, HMHP LIVER PANEL, Additional followed-up results: linisync Result Encounter [facility] External Department Unsolicited Blake Larson MD 01/30/2025linisync Result Encounter [facility] External Department Unsolicited Provider, Generic External Data 01/26/2025 9:15 AM EDTProcedure Visit [facility] [address] [place] [address] Errol Powell DPM Dermatophytosis of nail (Primary Dx); Dystrophic nail; Diabetic polyneuropathy associated with type 2 diabetes mellitus (HCC); Encounter for long-term (current) use of insulin (HCC)01/26/2025amboo flowsheet [facility] [address] [place] [address] Errol Powell DPM 01/26/20256863Yezlmm09/15/2025Travelfrom Last 3 Months Immunizations ImmunizationAdministration DatesNext DueInfluenza, High Dose Seasonal, Preservative Free03/11/2019,03/21/2017,03/30/2016,02/22/2015Influenza, High-dose Seasonal, Quadrivalent, Preservative Free03/02/2021,02/24/2020Influenza, Seasonal, Quadrivalent, Bvsqefbdbm36/27/2023Influenza, Lzyekpfrwgs45/19/2022 Influenza, injectable, quadrivalent, preservative free04/05/2020,03/18/2018, 03/12/2017Influenza, seasonal, finhtolrpc26/22/2014,05/19/2013Influenza, trivalent, xuvthsxont05/20/2024,03/26/2019Pfizer Purple Cap SARS-CoV-2 Cyapdpsincx58/03/2021,07/26/2020,07/14/2020neumococcal Conjugate PCV 13 03/26/2019Pneumococcal Polysaccharide JOWW351506/27/2019,03/11/2019,03/23/2014 SARS-COV-2 (COVID-19) vaccine, mRNA, spike protein, LNP, PF, 50 mcg/0.5 mL 04/30/2024,05/07/2023 Family History Medical HistoryRelationNameCommentsDiabetesBrotherhalHeart diseaseBrotherhal HypertensionBrotherhalParkinsonismFatherDiabetesMothermaHypertensionMotherma StrokeMothermaDiabetesSonkcMelanomaNeg HxRelationNameStatusCommentsBrotherhal Mhtuf1AqckatVtvhhvmvJyrfqextDjdknkuoHewtaQlgnl Social History Tobacco UseTypesPacks/DayYears UsedDateSmoking Tobacco: Never Tobacco Cessation:Counseling Given: Not Answered Alcohol UseStandard Drinks/WeekCommentsYes1 (1 standard drink = 0.6 oz pure alcohol)Caffeine intake: 1-2 cups per day, coffee, qckoQ5737 Health Literacy AnswerDate RecordedHow often do you need to have someone help you when you read instructions, pamphlets, or other written material from your doctor or pharmacy? Often01/22/2024Social Connection and Isolation PanelAnswerDate RecordedIn a typical week, how many times do you talk on the phone with family, friends, or neighbors?More than three times a week01/22/2024How often do you get together with friends or relatives?Once a week01/22/2024How often do you attend lutheran or restorationist services?Patient npknmvwi38/13/2024o you belong to any clubs or organizations such as lutheran groups, unions, fraternal or athletic groups, or school groups?No01/22/2024How often do you attend meetings of the clubs or organizations you belong to?Patient ydvblnhu34/13/2024re you , , , , never , or living with a partner?Tlsftdt3101/22/2024 AUDIT-CAnswerDate RecordedQ1: How often do you have a drink containing alcohol? Monthly or less01/22/2024Q2: How many drinks containing alcohol do you have on a typical day when you are drinking?1 or Q3: How often do you have six or more drinks on one occasion?Never01/22/2024Overall Financial Resource Strain (CARDIA)AnswerDate RecordedHow hard is it for you to pay for the very basics like food, housing, medical care, and heating?Not hard at all01/22/2024HQ-2 AnswerDate RecordedPatient Health Questionnaire-2 Fzpqv772F[place]ane [place] human resource s[place] of Occupational [facility] - Occupational Stress QuestionnaireAnswerDate RecordedDo you feel stress - tense, restless, nervous, or anxious, or unable to sleep at night because yourmind is troubled all the time - these days?Patient /13/2024Exercise Vital SignAnswerDate RecordedOn average, how many days per week do you engage in moderate to strenuous exercise (like a brisk wal k)?Patient oyksgsed05/13/2024On average, how many minutes do you engage in exercise at this level?Patient xegjhrks69/13/2024Hunger Vital SignAnswerDate RecordedWithin the past 12 months, you worried that your food would run out before you got the money to buymore.Never true01/22/2024Within the past 12 months, the food you bought just didn't last and you didn't have money to get more.Never true01/22/2024RAPARE - TransportationAnswerDate RecordedIn the past 12 months, has lack of transportation kept you from medical appointments or from getting medications?No01/22/2024In the past 12 months, has lack of transportation kept you from meetings, work, or from getting things needed for daily living?No01/22/2024Housing Stability Vital SignAnswerDate RecordedIn the last 12 months, was there a time when you were not able to pay the mortgage or rent on time?No01/22/2024In the past 12 months, how many times have you moved where you were living?t any time in the past 12 months, were you homeless or living in a correction (including now)?No01/22/2024Sex and Gender InformationValueDate RecordedSex Assigned at BirthNot on fileLegal SexMale 08/23/2022 6:53 PM EDTGender IdentityNot on fileSexual OrientationNot on file Last Filed Vital Signs Vital SignReadingTime TakenCommentsBlood Wywolnpg848/54002/03/2025 10:52 AM EDT Bbfpt641802/03/2025 10:52 AM ROHKbhymokyelv22.2 ??C (97.1 ??F)02/03/2025 10:52 AM EDTRespiratory Vejq090902/03/2025 10:52 AM EDTOxygen Tdembpuvnt48%02/03/2025 10:52 AM EDTInhaled Oxygen Concentration--Csvmei50.8 kg (198 lb)02/03/2025 10:52 AM LYXQacnnj837 cm (6' 2 )02/03/2025 10:52 AM EDTBody Mass Index25.42002/03/2025 10:52 AM EDT Plan of Treatment DateTypeDepartmentCare Team (Latest Contact Info)Dwxzmydtngp37/18/2025 9:15 AM ESTProcedure Visit [facility] [address] [place] [address] Errol Powell DPM [address] [place] [address] 08/04/2025 10:20 AM ESTOffice Visit [facility] [address] [place] [address] Sophia Mcmahon MD [address] [place] [address] Health MaintenanceDue DateLast DoneCommentsCOVID-19 Vaccine ( season) , 08/11/2020, 07/26/2020, Additional history existsInfluenza Vaccine (#1)511/, 05/07/2023, 03/29/2022, Additional history existsDiabetes: Hemoglobin A1C, 08/06/2024, 01/30/2024, Additional history existsDiabetes: Urine Protein Hlqlowyjn57/26/547836/, 08/07/2023, 3Diabetes: Retinopathy Qmmbuljik21/11/2024, 4Pneumococcal Vaccine: 65+ AxvemIiwfkhwyz51/17/2020, 03/26/2019, 03/11/2019, Additional history exists Procedures Procedure NamePriorityDate/TimeAssociated DiagnosisCommentsALL LIPID PROFILE (FASTING)Djbgznq6101/31/2025 8:49 AM EDT ALL KJJVQSDFBJdaoxvy36/23/2025 8:49 AM EDT ALL BASIC METABOLIC RBBXXMeponsk12/23/2025 8:49 AM EDT HMHP LIVER EDSBDOeixiay89/23/2025 8:49 AM EDT MLR HEMOGLOBIN X6RFyypcus48/23/2025 8:49 AM EDT ALL CBC WITH AUTO HLZOGdoehuf75/23/2025 8:49 AM EDT CA ECHO DOPPLER DNGOFQQQ92/22/2025 1:40 PM EDT MICROALBUMIN / CREATININE URINE RCKQJCsmijph13/26/2025 2:02 PM EST HEMOGLOBIN A1C WITH OVPQtqdrok32/26/2025 2:01 PM EST from Last 3 Months or Most Recently Relevant to Health Maintenance Results * MLR HEMOGLOBIN A1C (01/31/2025 8:49 AM EDT)ComponentValueRef RangeTest Method Analysis TimePerformed AtPathologist SignatureGLYCOHEMOGLOBIN A1C5.74.5 - 6.2 %TBHComment: ADA RECOMMENDED LIMIT 4.0 - 6.0 ADA THERAPEUTIC TARGET < 7.0 ACTION SUGGESTED > 7.0 ESTIMATED AVERAGE EBDSXDF775fq/dLTBHSpecimen (Source)Anatomical Location / LateralityCollection Method / VolumeCollection TimeReceived Time01/31/2025 8:49 AM EDT01/31/2025 8:51 AM EDT Narrative CLIN[facility]NC - 01/31/2025 9:31 AM EDT Authorizing ProviderResult TypeResult StatusMarc Naderer MDCLINISYNCFinal Result Performing OrganizationAddressCity/State/ZIP CodePhone Number CLINISYNC TB * HMHP LIVER PANEL (01/31/2025 8:49 AM EDT)ComponentValueRef RangeTest Method Analysis TimePerformed AtPathologist SignatureBILIRUBIN TOTAL0.50.2 - 1.0 mg/dLTBHBILIRUBIN DIRECT0.10.0 - 0.2 mg/dLTBHASPARTATE AMINO CQNDTPURIHA1138 - 37 U/LTBHALANINE WNMKAHNIGRSFQYAC0519 - 63 U/LTBHALKALINE IXMWXWQFQLX9857 - 116 U/LTBHTOTAL PROTEIN7.46.4 - 8.2 g/dLTBHALBUMIN LEVEL3.93.4 - 5.0 g/dLTBH GLOBULIN3.5g/dLTBHALBUMIN GLOBULIN RATIO1.1TBHSpecimen (Source)Anatomical Location / LateralityCollection Method / VolumeCollection TimeReceived Time 01/31/2025 8:49 AM EDT01/31/2025 8:51 AM EDT Narrative CLINISYNC - 01/31/2025 9:32 AM EDT Authorizing ProviderResult TypeResult StatusMymich[facility] MDCLINISYNCFinal Result Performing OrganizationAddressCity/State/ZIP CodePhone Number [facility] * (ABNORMAL) ALL MAGNESIUM (01/31/2025 8:49 AM EDT)ComponentValueRef RangeTest MethodAnalysis TimePerformed AtPathologist SignatureMAGNESIUM1.5(L)1.8 - 2.4 mg/dLTBHSpecimen (Source)Anatomical Location / LateralityCollection Method / VolumeCollection TimeReceived Time01/31/2025 8:49 AM EDT01/31/2025 8:51 AM EDT Narrative CLINISYNC - 01/31/2025 9:32 AM EDT Authorizing ProviderResult TypeResult StatusA[facility] DianeAnaheim General HospitalLINISYNCFinal Result Performing OrganizationAddressCity/State/ZIP CodePhone Number [facility] * (ABNORMAL) ALL LIPID PROFILE (FASTING) (01/31/2025 8:49 AM EDT)ComponentValue Ref RangeTest MethodAnalysis TimePerformed AtPathologist Signature VDTFEVMIFUDEC506<=150 mg/gUWRRHMXDFRQICKA688<=200 mg/dLTBHHDL PLTCKEGEKTT68(L) 40 - 60 mg/dLTBHComment: > or =60 mg/dl - LOW CARDIOVASCULAR RISK <40 mg/dl - HIGH CARDIOVASCULAR RISK LDL CHOLESTEROL DQXLVKQEUD58.0mg/dLTBHComment: <100 mg/dl OPTIMAL 100-129 mg/dl NEAR OR ABOVE OPTIMAL 130-159 mg/dl BORDERLINE HIGH 160-189 mg/dl HIGH >190 mg/dl VERY HIGH VLDL MQGYNSDUYPE66.6mg/dLTBHCHOL HDL RATIO3.2TBHComment: 3.3 - 4.4 ?? LOW RISK 4.4 - 7.1 ?? AVERAGE RISK 7.1 - 11.0 ??MODERATE RISK >11.0 HIGH RISK Specimen (Source)Anatomical Location / LateralityCollection Method / Volume Collection TimeReceived Time01/31/2025 8:49 AM EDT01/31/2025 8:51 AM EDT Narrative CLIN[facility]YNC - 01/31/2025 9:32 AM EDT Authorizing ProviderResult TypeResult StatusMarc Naderer MDCLINISYNCFinal Result Performing OrganizationAddressCity/State/ZIP CodePhone Number [facility] * (ABNORMAL) ALL CBC WITH AUTO DIFF (01/31/2025 8:49 AM EDT)ComponentValueRef RangeTest MethodAnalysis TimePerformed AtPathologist SignatureTBH WBC6.54.0 - 11.0 10 3/uLTBHTBH RBC3.72(L)4.70 - 6.10 10 6/uLTBHTBH HGB12.2(L)14.0 - 18.0 g/dLTBHTBH HCT35.2(L)42.0 - 54.0 %TBHTBH MCV94.6(H)80.0 - 94.0 fLTBHTBH MCH 32.825.9 - 34.0 pgTBHTBH MCHC34.729.9 - 35.2 g/dLTBHTBH RDW13.311.0 - 15.0 % TBHTBH VLZ473(L)150 - 450 10 3/uLTBHTBH MPV8.5(L)9.5 - 13.5 fLTBHNEUTROPHILS PERCENT AUTO67.343.0 - 75.0 %TBHLYMPHOCYTES PERCENT AUTO18.6(L)20.5 - 60.0 % TBHMONOCYTES PERCENT AUTO6.81.7 - 12.0 %TBHTBH EO %6.00.9 - 7.0 %TBHBASOPHILS PERCENT AUTO0.80.2 - 2.0 %TBHIMMATURE GRANULOCYTES PCT AUTO0.50.0 - 0.5 %TBH NEUTROPHILS ABSOLUTE AUTO4.41.4 - 6.5 10 3/uLTBHLYMPHOCYTES ABSOLUTE AUTO1.2 1.2 - 3.8 10 3/uLTBHMONOCYTES ABSOLUTE AUTO0.40.3 - 0.8 10 3/uLTBHTBH EO #0.4 0.0 - 0.7 10 3/uLTBHBASOPHILS ABSOLUTE AUTO0.10.0 - 0.1 10 3/uLTBHIMMATURE GRANULOCYTES ABS AUTO0.030.00 - 0.03 10 3/uLTBHSpecimen (Source)Anatomical Location / LateralityCollection Method / VolumeCollection TimeReceived Time 01/31/2025 8:49 AM EDT01/31/2025 8:51 AM EDT Narrative CLINISYNC - 01/31/2025 8:58 AM EDT Authorizing ProviderResult TypeResult StatusMarc Neo MDCLINISYNCFinal Result Performing OrganizationAddressCity/State/ZIP CodePhone Number [facility] * (ABNORMAL) ALL BASIC METABOLIC PANEL (01/31/2025 8:49 AM EDT)ComponentValueRef RangeTest MethodAnalysis TimePerformed AtPathologist YnjgoftsbHGHAGQ541006 - 145 mmol/LTBHPOTASSIUM4.53.5 - 5.1 mmol/DTGKDSSVIMPV47594 - 107 mmol/LTBH [place] CEQSVEV74.921.0 - 32.0 mmol/LTBHANION GAP13.6XIQSXIINUO013(H)74 - 106 mg/dLTBHBLOOD UREA QSAZILDF64.07.0 - 18.0 mg/dLTBHCREATININE0.710.70 - 1.30 mg/dLTBHTBH EGFR-AF CITIZEN [place]>60>=60 mL/min/1.73m 2TBHTBH EGFR-NON AF CITIZEN [place] >60>=60 mL/min/1.73m 2TBHBUN CREATININE RATIO25.4NLRHLBMMKL1.08.5 - 10.1 mg/dL TBHSpecimen (Source)Anatomical Location / LateralityCollection Method / Volume Collection TimeReceived Time01/31/2025 8:49 AM EDT01/31/2025 8:51 AM EDT Narrative CLINISYNC - 01/31/2025 9:32 AM EDT Authorizing ProviderResult TypeResult StatusMarc Nadjewels MDCLINISYNCFinal Result Performing OrganizationAddressCity/State/ZIP CodePhone Number CLINISYNC TBH * CA ECHO DOPPLER COMPLETE (01/30/2025 1:40 PM EDT)Anatomical RegionLaterality ModalityOtherSpecimen (Source)Anatomical Location / LateralityCollection Method / VolumeCollection TimeReceived Time01/30/2025 1:40 PM EDT Narrative 01/30/2025 1:41 PM EDT [facility] ?[address] ? [place] [address] ? Cardiology Report ? Signed ? Patient: FABIAN CHAMORRO D ?MR#: [id number] ?? : 1945 ?Acct:[id number] ?? Age/Sex: 79 / M ?ADM Date: 01/30/25 ?? Loc: CARD ? Attending Dr: CASSANDRA JOSE ? Ordering Physician: CASSANDRA JOSE ?? Date of Service: 01/30/25 ?? Procedure(s): CA echo doppler complete ?? Accession Number(s): [id number] ? cc: CASSANDRA JOSE; Blake Larson M.D. ? Patient Name: ? FABIAN CHAMORRO ? MR#: [id number] ? : 1945 ? Exam Date: 01/30/2025 ?? Ordering Doctor: DR CASSANDRA JOSE M.D. ? ECHOCARDIOGRAM REPORT ? PROCEDURE: ? CA ECHO DOPPLER COMPLETE ? INDICATIONS: ? Abnormal stress test, Chest pain, Murmur ? COMPARISON: ? None. ? DESCRIPTION: ? COMPLETE ECHOCARDIOGRAM Real-time transthoracic ?? echocardiography with 2D, M-mode, spectral and color flow Doppler performed. ? QUALITY: ? Technical quality was good. ? LEFT VENTRICLE: ? Normal chamber size. Severe concentric left ventricular ?? hypertrophy. ?? LV EF: ? Global left ventricular systolic function is hyperdynamic; visually ?? estimated ejection fraction is 65 to 70%. Calculated left ventricular ejection ?? fraction is 68%. ??No significant wall motion abnormalities. ?? DIASTOLIC: ? Diastolic function is indeterminate. ?? ATRIAL SEPTUM: ? Inadequately seen. ?? LEFT ATRIUM: ? Normal chamber size. ?? RIGHT ATRIUM: ? Mild dilatation. ?? RIGHT VENTRICLE: ? Normal chamber size. Normal right ventricular systolic ?? function. ? TRICUSPID VALVE: ? Normal mobility and thickness. No stenosis with mild ?? regurgitation. Mild pulmonary hypertension. RVSP 38mmHg. ? MITRAL VALVE: ? Moderately thickened with decreased mobility. Severe mitral ?? annular calcification. No mitral regurgitation. MVA 2.3cm2, peak/mean ?? gradients 7/3mmHg. ??Gradients are likely elevated due to hyperdynamic state ?? +/- volume overload. ? AORTIC VALVE: ? The aortic valve is probably trileaflet. Moderately ?? calcified aortic valve with diminished mobility. ??Doppler velocity suggests ?? mild to moderate aortic valve stenosis. DVI 0.5, SHANNON 1.2cm2, Vmax 3.1m/s. ?? Velocities and gradients may be overestimated due to hyperdynamic left ?? ventricular systolic function. ??Mild aortic regurgitation. ? AORTIC ROOT: ? Mildly dilated. Measuring 4.0cm. The ascending aorta measures ?? 3.7cm. ? PULMONIC VALVE: ? Normal thickness and mobility. No stenosis. Trivial ?? regurgitation. ? PERICARDIUM: ? No evidence of pericardial effusion. ? IVC: ? Collapses with inspiration. Mildly dilated measuring 2.2cm. ? CONCLUSION: ? 1. Global left ventricular systolic function is hyperdynamic; visually ?? estimated ejection fraction is 65 to 70% ?? 2. Severe left ventricular hypertrophy ?? 3. Diastolic function is indeterminate. ?? 4. Normal right ventricular size and systolic function ?? 5. Mild right atrial dilatation ?? 6. Mild tricuspid regurgitation ?? 7. Mildly elevated right ventricular systolic pressure; RVSP 38 mmHg ?? 8. Mild to moderate aortic valve stenosis; mild aortic valve regurgitation ?? 9. The aortic root is mildly dilated measuring 4.0 cm ? Adult Echocardiography Procedure Report ?? Left Ventricle ?? LVEDD (3.7 - 5.6 cm): ? 3.49 cm ?? LVESD (2.2 - 4.0 cm): ? 2.25 cm ?? LVIVS thickness (0.6 - 1.2 cm): ? 1.86 cm ?? LVPW thickness (0.5 - 1.0 cm): ? 1.44 cm ?? e': ? 0.04 m/s ?? E - e': ? 22.76 ?? LVOT Max Gradient: ? 10.25 mm[Hg] ?? LVOT Area (cm2): ? 1.60 m/s ?? Peak Velocity (LVOT): ? 1.60 m/s ?? Mean Velocity (LVOT): ? 1.16 m/s ?? LVOT Diameter ? 1.66 cm ?? Left Ventricular Ejection Fraction: ? 68.35 % ?? Left Atrium ?? LA Volume Index (2D A2C): ? 27.65 ml/m2 ?? Left Atrium Systolic Dimension: ? 3.81 cm ?? Mitral Valve ?? MV E to A Ratio: ? 0.72 ?? Mitral Valve A-Wave Peak Velocity: ? 1.27 m/s ?? Mitral Valve E-Wave Peak Velocity: ? 0.92 m/s ?? Right Ventricle ?? RV Internal Diastolic Dimension: ? 3.23 cm ?? Aorta ?? AO Root Diam: ? 3.99 cm ?? Ascending Ao Diam: ? 3.67 cm ?? Aortic Valve ?? AoV Area (Peak Yariel): ? 1.12 cm2, 1.12 cm2 ?? AoV Area (VTI): ? 1.19 cm2, 1.19 cm2 ?? Peak Velocity(Antegrade Flow): ? 3.09 m/s ?? Peak Gradient(Antegrade Flow): ? 38.27 mm[Hg] ?? Mean Velocity(Antegrade Flow): ? 2.12 m/s ?? Mean Gradient(Antegrade Flow): ? 20.86 mm[Hg] ?? Velocity Time Integral: ? 60.53 cm ?? Tricuspid Valve ?? Peak Velocity (Regurgitant Flow): ? 2.45 m/s, 2.29 m/s, 2.75 m/s ?? Pulmonic Valve ?? Peak Velocity: ? 0.93 m/s ?? Peak Gradient: ? 3.47 mm[Hg] ?? Right Atrium ?? Right Atrium Systolic Pressure: ? 34.34 ml, 34.34 ml ? Dictated by: Argelia Gonsales M.D. on 01/30/2025 at 13:18 ? Approved by: Argelia Gonsales M.D. on 01/30/2025 at 13:40 ? Dictated By: ?Argelia Gonsales M.D. ? Signed By: ?01/30/25 1341 ? DD/ 1340 ? TD/TT: ? [place] [employer]: Procedure Note Radiology, Radiologist, MD - 01/30/2025 [place] [address] Cardiology Report Signed Patient: FABIAN CHAMORRO DMR#: [id number] : 1945cct:[id number] Age/Sex: 79 / MADM Date: 01/30/25 Loc: CARD Attending Dr: CASSANDRA JOSE Ordering Physician: CASSANDRA JOSE Date of Service: 01/30/25 Procedure(s): CA echo doppler complete Accession Number(s): [id number] cc: CASSANDRA JOSE; Blake Larson M.D. Patient Name: FABIAN CHAMORRO MR#: [id number] : 1945 Exam Date: 01/30/2025 Ordering Doctor: [...] M.D. Signed By:01/30/25 1341 DD/ 1340 TD/TT: [place]er: Authorizing ProviderResult TypeResult StatusGeneric External Data Provider CLINISYNC IMAGINGFinal Result * (ABNORMAL) Microalbumin / creatinine urine ratio (08/06/2024 2:02 PM EST) ComponentValueRef RangeTest MethodAnalysis TimePerformed AtPathologist SignatureMICROALBUMIN, URINE7.1(H)0.0 - 1.8 mg/dL08/06/2024 3:[address] [facility] CtrCREATININE, URINE (RANDOM)81.00mg/dL08/06/2024 3:02 PM [facility]trComment:No reference range establishedMICROALBUMIN/CREATININE RATIO87.7(H)0.0 - 30.0 mg/g008/06/2024 3:02 PM [facility] CtrComment: 30-300 mg/g indicates an increased risk for diabetic nephropathy. ??Greater than 300 mg/g is consistent with clinical nephropathy. ??(Am. J. Kidney Disease 1995, 25:107) Specimen (Source)Anatomical Location / LateralityCollection Method / Volume Collection TimeReceived LqraRnzyy62/26/2025 2:02 PM EST08/06/2024 2:02 PM EST Narrative Authorizing ProviderResult TypeResult StatusUmmc [facility]adatracieUniversity [facility] URINE ORDERABLES Final ResultPerforming OrganizationAddressCity/State/[facility] CodePhone Number [facility] [address] [place] [address], [facility] [address] [place] [address] * (ABNORMAL) Hemoglobin a1c with eag (08/06/2024 2:01 PM EST)ComponentValueRef RangeTest MethodAnalysis TimePerformed AtPathologist SignatureHEMOGLOBIN A1C 7.4(H)4.3 - 5.6 %08/07/2024 8:33 AM [facility] CtrComment: Increased risk for diabetes: 5.7 - 6.4 diabetes: >6.4 glycemic control for adults with diabetes: <7.0 ESTIMATED AVERAGE PGQMTTI923rn/dL08/07/2024 8:33 AM [facility] CtrSpecimen (Source)Anatomical Location / LateralityCollection Method / VolumeCollection TimeReceived TimeBlood (Blood)08/06/2024 2:01 PM EST08/06/2024 2:01 PM EST Narrative Authorizing ProviderResult TypeResult StatusUmmc GrenadatracieUniversity of [facility] BLOOD ORDERABLES Final ResultPerforming OrganizationAddressCity/State/[facility] CodePhone Number [facility] [address] [place] [address], [facility] [address] [place] [address] from Last 3 Months or Most Recently Relevant to [place] [address] Care Teams Team MemberRelationshipSpecialtyStart DateEnd Date Blake Larson MD [facility] - [facility] Blake Larson MD [address] [facility] [place] [address] PCP - [facility]07/18/24
--- OUTSIDE RECORDS SUMMARY | 2025-04-25 08:07 | XMS_ITS | CCD ---
Author Organization [facility] Care Team Providers Care Gas Specialist Name Role Phone PHYSICIAN, DEFAULT Unavailable Unavailable PHYSICIAN, DEFAULT Unavailable Unavailable Alejandro Davenport Primary Care Provider BLAKE NG Primary Care Physician MD Jermaine Jensen Attending Provider MD Blake Ng Primary Care Provider MD Jermaine Jensen Attending Provider [phone] MD Blake Ng Primary Care Provider MD Rosy Pina Attending Provider MD Jermaine Jensen Referring Provider MD Rosy Pina Attending Provider MD Jermaine Jensen Referring Provider [phone] MD Blake Ng Primary Care Provider MD [...] Referring Provider MD Jermaine Jensen Attending Provider [phone] MD Rosy Pina Referring Provider MD Blake [...] Provider Blake Ng MD Primary Care Provider Ingrid Bertrand APRN Attending Provider Jermaine Jensen MD Attending Provider Blake Ng Attending Unavailable Naderer, Blake Admitting Unavailable Naderer, Blake Primary Care Unavailable Naderer, Blake Attending Unavailable Naderer, Blake Admitting Unavailable Naderer, Blake Primary Care Unavailable Jensen, Jermaine Referring Unavailable Silvana, Norleena R Admitting Unavailable Silvana, Norleena R Attending Unavailable Naderer, Blake Primary Care Unavailable Jensen, Jermaine Admitting Unavailable Jensen, Jermaine Attending Unavailable Naderer, Blake Primary Care Unavailable JENSEN, Jermaine R Attending Unavailable JENSEN, Jermaine R Attending Unavailable JENSEN, Jermaine R Admitting Unavailable JENSEN, Jermaine R Attending Unavailable RUSHER, ISABELLA A Attending Unavailable PETITTI, SYMONE Bernabe Attending Unavailable NADERER, BLAKE Attending Unavailable RUSHER, ISABELLA A Attending Unavailable BROWN, JAYCOB A Referring Unavailable BROWN, JAYCOB A Attending Unavailable BROWN, JAYCOB A Referring Unavailable RUSHER, ISABELLA A Attending Unavailable RUSHER, ISABELLA A Attending Unavailable RUSHER, ISABELLA A Attending Unavailable RUSHER, ISABELLA A Attending Unavailable RUSHER, ISABELLA A Referring Unavailable NADERER, BLAKE Attending Unavailable RUSHER, ISABELLA Bernabe Attending Unavailable NADERER, BLAKE Attending Unavailable RUSHER, ISABELLA Bernabe Attending Unavailable RUSHER, ISABELLA A Referring Unavailable NADERER, BLAKE Attending Unavailable Naderer Blake ARORA Primary Care Provider [phone] Chanelle Saez MD Attending Provider Blake Ng MD Attending Provider [phone] CASSANDRA BOUCHER Referring Unavailable JOELLE JOEL Referring Unavailable GINIKRISTY BARBOSA Referring Unavailable CHANELLE SAEZ Referring Unavailable EILEEN MARTINEZ Admitting Unavailable SHAIKH MADDEN Attending Unavailable GINI, Referring Unavailable GINI, KRISTY Referring Unavailable RON JULIEN Attending Unavailable CASSANDRA BOUCHER Attending Unavailable CASSANDRA BOUCHER Attending Unavailable EILEEN MARTINEZ Referring Unavailable Medications Current Medications MedicationDrug Class(es)DatesSig (Normalized)Sig (Original)acetaminophen 325 mg / HYDROcodone bitartrate 7.5 mg oral tablet (1 source)Opioid AgonistStart: 47-55-7759iovd 1 tablet by mouth once, then take 1 tablet by mouth every hourNorco 325 mg-7.5 mg oral tablet 1 tab(s), Oral, Once, 1 tab(s), Refill(s) 0, Take 1 hour prior to procedure, [facility] #[id number], 180, cm, 12/23/21 8:24:00 EDT, Height/Length Dosing, 94, kg, 12/23/21 8:24:00 EDT, Weight Dosing Start Date: 03/16/22 Status: Orderedallopurinol 300 mg oral tablet (20 sources)Xanthine Oxidase InhibitorStart: 09-75-9016xjgx 1 tablet by mouth once dailyAllopurinol 300 mg tablet Active 300 MG PO Daily April 26, 2022 1:00am Complies with drug therapyComment on above:Take 300 mg by mouth once daily.ascorbic acid 226 mg / beta carotene 99514 unt / cuprous oxide 0.8 mg / dl-alpha tocopheryl xljekfz904 unt / zinc oxide 34.8 mg oral capsule (2 sources)Vitamin CStart: 72-44-6252dylt 1 capsule by mouth twice dailyVitamins A,C,Z-Hkvr-Zezocl (Preservision Areds) 14,320-226-200 tise-fv-aqks Capsule Active 1 CAP POTwice daily May 08, 2022 1:00am Complies with drug therapy aspirin 81 mg oral tablet (20 sources)Platelet Aggregation Inhibitor, Nonsteroidal Anti-inflammatory Drug Start: 52-13-3874mifd 1 capsule by mouth once dailyAspirin 81 mg Capsule Active 81 MG PO Daily April 26, 2022 1:00am Complies with drug therapy End: 88-26-6773wqmnhtm 81 MG EC tablet 1 (one) time each day at the same time 01/02/2025 DiscontinuedComment on above:Take 81 mg by mouth once daily.Blood Glucose Monitoring Suppl (True Metrix Meter) w/Device kit (20 sources)Start: 63-99-4021Ndupi Glucose Monitoring Suppl (True Metrix Meter) w/Device kit Indications: Type 2 diabetes mellitus with hyperglycemia, with long-term current use of insulin (HCC) 1 each in the morning and 1 each in the evening and 1 each before bedtime. 1 kit 08/01/2023 ActiveStart: 93-02-8331Lextk Glucose Monitoring Suppl (True Metrix Meter) w/Device kit Indications: Type 2 diabetes mellitus with hyperglycemia, with long-term current use of insulin ([facility]) 1 each in the morning and 1 each in the evening and 1 each before bedtime. 1 kit 08/01/2023 Activecelecoxib 100 mg oral capsule (2 sources)Nonsteroidal Anti-inflammatory Drugtake 1 capsule by mouth in the morningcelecoxib (CeleBREX) 100 MG capsule Take 100 mg by mouth in the morning and 100 mg before bedtime. 0 Activecephalexin 500 mg oral capsule (20 sources)Cephalosporin AntibacterialStart: 03-25-2024 End: 86-03-2192wxesmjjanf (Keflex) 500 MG capsule Indications: History of total shoulder replacement, unspecified laterality Take 4 pills 30-60 mins before dental appointment with food 4 capsule 3 03/25/2024 01/02/2025 Discontinued Start: 23-82-0880fbtyhaplbs (Keflex) 500 MG capsule Indications: History of total shoulder replacement, unspecified laterality Take 30-60 mins before dental appointment with food 4 capsule 3 02/09/2023 Activeclopidogrel 75 mg oral tablet (1 source)P2Y12 Platelet InhibitorStart: 46-11-1716ruyx 1 tablet by mouth once dailyClopidogrel (Plavix) 75 mg tablet Active 75 MG PO Daily March 11, 2025 12:00am Complies with drug therapydocusate sodium 100 mg oral capsule (2 sources)Start: 08-57-9319cfck 1 capsule by mouth twice daily as needed for constipationColace 100 mg Cap 100 mg = 1 cap(s), Oral, BID, PRN for constipation, # 20 cap(s), Refills(s) 0 Start Date: 05/13/18 Status: Ordered dutasteride 0.5 mg oral capsule (3 sources)5-alpha Reductase InhibitorStart: 12-29-2024 End: 99-92-3265ggnv 1 capsule by mouth once dailydutasteride 0.5 mg Cap 0.5 mg = 1 cap(s), Oral, Daily, X 90 day(s), # 90 cap(s), Refills(s) 3, Pharmacy: [facility], 180, cm, 12/29/24 8:48:00 EDT, Height/Length Dosing, 91.1, kg, 12/29/24 8:48:00 EDT, Weight Dosing Start Date: 12/29/24 Stop Date: 12/24/25 Status: Ordered Quantity: 90.0 Unit: cap(s) Repeat number: 4esomeprazole 20 mg delayed release oral capsule (20 sources)Proton Pump InhibitorStart: 03-98-3540xgzb 1 capsule by mouth once dailyEsomeprazole Magnesium (Nexium) 20 mg Capsule,Delayed Release(Dr/Ec) Active 20 MG PO Daily 2021 1:00am Complies with drug therapyStart: 40-82-6183hbtc 1 capsule by mouth once dailyNexium 40 mg Cap-EC 40 mg, Oral, Daily, Refills(s) 0 Start Date: 12/29/11 Status: Ordered Repeat number: 1Comment on above:Take 40 mg by mouth once daily.ferrous sulfate 325 mg oral tablet (20 sources)Start: 04-91-9127tbrw 1 tablet by mouth once dailyFerrous Sulfate (Iron) 325 mg (65 mg iron) Tablet Active 65 MG PO Daily May 08, 2022 1:00am Complies with drug therapyhydrOXYzine hydrochloride 25 mg oral tablet (16 sources)AntihistamineStart: 08-05-2024 End: 80-89-3076yhyd 1 tablet by mouth four times daily as neededhydrOXYzine HCl (Atarax) 25 MG tablet Indications: Pruritus Take 1 tablet (25 mg) by mouth 4 (four)times a day as needed for itching 60 tablet 3 08/05/2024 01/02/2025 Discontinued3 ml insulin glargine 100 unt/ml pen injector (20 sources)Insulin AnalogStart: 16-17-0219iijhpdq glargine (Lantus SoloStar) 100 UNIT/ML pen Indications: Type 2 diabetes mellitus with hyperglycemia, with long-term current use of insulin (HCC) Inject 40 Units under the skin at bedtime 02/03/2025 ActiveStart: 35-59-5421jbeplmq glargine (Lantus SoloStar) 100 UNIT/ML pen Indications: Type 2 diabetes mellitus with hyperglycemia, with long-term current use of insulin (HCC) Inject 40 Units under the skin at bedtime 02/03 ActiveStart: 01-22-2025 End: 51-96-9634snshamg glargine (Lantus SoloStar) 100 UNIT/ML pen Indications: Type 2 diabetes mellitus with hyperglycemia, with long-term current use of insulin ([facility]) Inject 45 Units under the skin at bedtime 3 mL3 01/22/2025 02/03/2025 DiscontinuedStart: 62-55-8543byqgsh 45 [IU] by subcutaneous injection at bedtimeinsulin glargine (Lantus) 100 UNIT/ML injection Indications: Type 2 diabetes mellitus with hyperglycemia, with long-term current use of insulin ([facility]) Inject 45 Units under the skin at bedtime 45 mL ActiveStart: 58-91-2020rnjnkd 45 [IU] by subcutaneous injection at bedtimeinsulin glargine (Lantus) 100 UNIT/ML injection Indications: Type 2 diabetes mellitus with hyperglycemia, with long-term current use of insulin ([facility]/HCC) Inject 45 Units under the skin at bedtime 45 mL 3 04/07/2024 ActiveStart: 13-53-6282pfihmuz glargine (Lantus SoloStar) 100 UNIT/ML pen Inject 45 Units under the skin at bedtime 01/28/2024 ActiveStart: 04-26-2022 End: 23-72-3053zgfrbi 60 [IU] by subcutaneous injection at bedtimeInsulin Glargine (Lantus U-100 Insulin) 100 unit/mL solution Discontinued 60 UNIT SUBCUT Bedtime April 26, 2022 1:00am June 13, 2023 10:59amStart: 05-21-2018 inject 50 [IU] by subcutaneous injection once daily at bedtimeLANTUS U-100 INSULIN 100 unit/mL injection Inject 50 Units subcutaneously daily at bedtime. 0 05/21/2018 ActiveStart: 89-20-4544lzxdqb 50 [IU] by subcutaneous injection once daily at bedtimeLantus 100 units/mL Injection-Insulin 50 unit(s), SubCutaneous, Once a day (at bedtime), Refills(s)0, Blood glucose Start Date: 12/29/11 Status: Ordered Repeat number: 1insulin glargine (Lantus SoloStar) 100 UNIT/ML pen Inject 60 Units under the skin at bedtime. 0 ActiveComment on above:Inject 50 Units subcutaneously daily at bedtime.24 hr isosorbide mononitrate 30 mg extended release oral tablet (7 sources)Nitrate VasodilatorStart: 01-19-2025 End: 84-86-8447hfqo 1 tablet by mouth once daily, then take 1 tablet by mouth every twenty-four hoursIsosorbide Mononitrate 30 mg tablet extended release 24 hr Active 30 MG PO Daily March 11, 2025 12:00am Complies with drug therapy ammonium lactate 120 mg/ml topical lotion (2 sources) End: 94-27-4908kulrlsup lactate (Lac-Hydrin) 12 % lotion Apply topically if needed for dry skin 0 07/19/2023 Discontinued (Entered in error)levoFLOXacin 750 mg oral tablet (2 sources)Quinolone AntimicrobialStart: 06-20-2024 End: 18-69-6174cirv 1 tablet by mouth once dailylevoFLOXacin (Levaquin) 750 MG tablet Indications: Acute non-recurrent maxillary sinusitis Take 1 tablet (750 mg) by mouth Daily for 7 days 7 tablet 06/20/2024 06/27/2024 Activelisinopril 20 mg oral tablet (20 sources)Angiotensin Converting Enzyme InhibitorStart: 08-02-2023 End: 19-83-6822lkfg 1 tablet by mouth once dailylisinopril 20 MG tablet Indications: Type 2 diabetes mellitus with hyperglycemia, with long-term current use of insulin (HCC) , Hypercholesterolemia , Elevated PSA , Dyslipidemia Take 1 tablet (20 mg) by mouth 1 (one) time each day at the same time 90 tablet 3 07/03/2024 06/28/2025 ActiveStart: 09-53-5670Yyyaqnrkzp 40 mg tablet Active 20 MG PO Daily April 26, 2022 1:00am Complies with drug therapyStart: 15-63-4451lzns 20 mg by mouth once dailyLisinopril Active 20 MG PO Daily April 26, 2022 1:00amStart: 00-80-3088tjoa 1 tablet by mouth once daily lisinopril 40 mg Tab 40 mg = 1 tab(s), Oral, Daily, Refills(s) 0, High blood pressure Start Date: 05/09/18 Status: Ordered Repeat number: 1lisinopril 20 MG tablet 1 (one) time each day at the same time. 0 ActiveComment on above:Take 40 mg by mouth once daily. Magnesium Aspart,Citrate,Oxide 400 mg magnesium capsule (1 source)Start: 79-41-5357Riqfygfsk Aspart,Citrate,Oxide 400 mg magnesium capsule Active MG PO March 11, 2025 12:00am Complies with drug therapy Magnesium Oxide, Elemental, 400 MG tablet (19 sources)Start: 26-59-3851aqql 1 tablet by mouth in the morning, then take 1 tablet by mouth in the evening, then take 1 tablet by mouth at bedtimeMagnesium Oxide, Elemental, 400 MG tablet Indications: Hypomagnesemia Take 400 mg by mouth in the morning and 400 mg in the evening and 400 mg before bedtime. 90 tablet 5 02/02/2025 ActiveStart: 69-28-6262towj 1 tablet by mouth in the morning Magnesium Oxide, Elemental, 400 MG tablet Indications: Hypomagnesemia Take 400 mg by mouth in the morning and at noon 60 tablet 5 08/07/2024 ActivemetFORMIN hydrochloride 1000 mg oral tablet (20 sources)BiguanideStart: 12-29-2011 End: 24-98-5099vyil 1 tablet by mouth twice dailyMetformin 1,000 mg tablet Active 1000 MG PO Twice daily April 26, 2022 1:00am Complies with drug therapyComment on above:Take 1,000 mg by mouth twice daily.24 hr metoprolol succinate 50 mg extended release oral tablet (20 sources)beta-Adrenergic BlockerStart: 08-02-2023 End: 55-50-2038mjoq 1 tablet by mouth once dailymetoprolol succinate XL (Toprol- XL) 50 MG 24 hr tablet Indications: Type 2 diabetes mellitus with hyperglycemia, with long-term current use of insulin (HCC) , Hypercholesterolemia , Elevated PSA , Dyslipidemia Take 1 tablet (50 mg) by mouth Daily 90 tablet 3 07/03/2024 06/28/2025 ActiveStart: 81-15-8658sjoy 2 tablets by mouth every twenty-four hours at bedtimeStart: 68-56-0736vtkj 50 mg by mouth at bedtimeMetoprolol Succinate Active 50 MG PO Bedtime April 26, 2022 1:00amStart: 04-26-2022 take 100 mg by mouth once dailyMetoprolol Succinate Active 100 MG PO Daily April 26, 2022 12:00amStart: 99-72-0860unhv 1 tablet by mouth once daily Metoprolol succinate 100 mg ER Tablet 100 mg, Oral, Daily, Refills(s) 0, High blood pressure Start Date: 05/09/18 Status: Ordered Repeat number: 1Start: 26-01-3719hppa 1 tablet by mouth once dailyMetoprolol succinate 100 mg ER Tablet 100 mg, Oral, Daily, Refills(s) 0, High blood pressure Start Date: 05/09/18 Status: OrderedStart: 47-39-6039wkvk 50 mg by mouth once dailymetoprolol succinate ER (TOPROL XL) 100 mg Tb24 Take 50 mg by mouth once daily. 0 05/07/2018 Activetake 1 tablet by mouth every twenty-four hours in the morning metoprolol succinate XL (Toprol-XL) 50 MG 24 hr tablet Take 50 mg by mouth in the morning. 0 ActiveComment on above:Take 50 mg by mouth once daily. Multiple Vitamin (Multi Vitamin) tablet (20 sources)Multiple Vitamin (Multi Vitamin) tablet 1 (one) time each day at the same time ActiveMultiple Vitamin (Multi Vitamin) tablet 1 (one) time each day at the same time. ActiveMultiple Vitamin (Multi Vitamin) tablet 1 (one) time each day at the same time. 0 ActiveMultiple Vitamins-Minerals (PreserVision AREDS) tablet (20 sources)Multiple Vitamins-Minerals (PreserVision AREDS) tablet Active Multiple Vitamins-Minerals (PreserVision AREDS) tablet as directed Orally Active Multiple Vitamins-Minerals (PreserVision AREDS) tablet as directed Orally 0 ActiveMultivitamin preparation (12 sources)Start: 01-44-2728etdk 1 tablet by mouth once dailyMultivitamin Active 1 TAB PO Daily May 08, 2022 1:00amStart: 78-22-2001ushc 1 tablet by mouth once dailyMultivitamin Active 1 TAB PO Daily May 08, 2022 12:00amMultivitamin Tablet (4 sources)Start: 26-42-5754pcnr 1 tablet by mouth once dailyMultivitamin Tablet Active 1 TAB PO Daily May 08, 2022 1:00am Complies with drug therapy Start: 49-39-8339hfti 1 tablet by mouth once dailyStart: 35-34-5929qmbi 1 tablet by mouth once dailyMultivitamin Tablet Active 1 TAB PO Daily May 08, 2022 1:00amStart: 13-20-3981kymu 1 tablet by mouth once dailyMultivitamin Tablet Active 1 TAB PO Daily May 08, 2022 12:00amMultivitamins and Minerals (5 sources)Start: 59-92-0538uauw 1 tablet by mouth once dailyMultivitamins and Minerals 1 TAB, Oral, Daily, Refill(s) 0, Prophylaxis Start Date: 12/29/11 Status:Ordered Repeat number: 1Start: 94-27-8539fqrq 1 tablet by mouth once dailyMultivitamins and Minerals 1 TAB, Oral, Daily, Refill(s) 0, Prophylaxis Start Date: 12/29/11 Status:OrderedpredniSONE 50 mg oral tablet (2 sources)Start: 06-20-2024 End: 45-30-1324xkoe 1 tablet by mouth once dailypredniSONE (Deltasone) 50 MG tablet Indications: Acute non-recurrent maxillary sinusitis Take 1 tablet (50 mg) by mouth Daily for 6 days 6 tablet 06/20/2024 06/26/2024 Activerosuvastatin calcium 10 mg oral tablet (20 sources)HMG-CoA Reductase InhibitorStart: 91-27-5247noxv 4 tablets by mouth once dailyRosuvastatin 10 mg tablet Active 40 MG PO Daily March 11, 2025 10:49am Complies with drug therapyStart: 12-29-2011 End: 67-28-6791omdi 1 tablet by mouth once dailyRosuvastatin 10 mg tablet Discontinued 10 MG PO Daily April 26, 2022 1:00am March 11, 2025 10:50am Comment on above:Take 10 mg by mouth once daily.Semaglutide (8 sources)Start: 65-87-2555yhncnh 1 mg by subcutaneous injection every week Semaglutide (Ozempic) 1 mg/dose (4 mg/3 mL) pen injector Active 1 MG SUBCUT every week September 18, 2023 12:00am Complies with drug therapyStart: 09-18-2023 inject 1 mg by subcutaneous injection every weekStart: 48-54-8920mnyctl 1 mg by subcutaneous injection every weekSemaglutide (Ozempic) 1 mg/dose (4 mg/3 mL) pen injector Active 1 MG SUBCUT every week September 17, 2023 11:00pmStart: 09-18-2023 inject 1 mg by subcutaneous injection every weekSemaglutide (Ozempic) 1 mg/dose (4 mg/3 mL) pen injector Active 1 MG SUBCUT every week September 18, 2023 12:00am semaglutide (Ozempic, 1 MG/DOSE,) 4 MG/3ML solution pen-injector (20 sources)Start: 59-92-9060yirgab 1 mg by subcutaneous injection every week semaglutide (Ozempic, 1 MG/DOSE,) 4 MG/3ML solution pen-injector Indications: Type 2 diabetes mellitus with hyperglycemia, with long-term current use of insulin ([facility]) Inject 1 mg under the skin 1 (one) time per week 3 each 3 07/03/2024 ActiveStart: 74-22-5078zgtcuv 1 mg by subcutaneous injection every weeksemaglutide (Ozempic, 1 MG/DOSE,) 4 MG/3ML solution pen-injector Indications: Type 2 diabetes mellitus with hyperglycemia, with long-term current use of insulin (CMS/HCC) Inject 1 mg under the skin 1(one) time per week 3 each 3 07/03/2024 ActiveStart: 17-43-8724ofqeii 1 mg by subcutaneous injection every weeksemaglutide (Ozempic, 1 MG/DOSE,) 4 MG/3ML solution pen-injector Indications: Type 2 diabetes mellitus with hyperglycemia, with long-term current use of insulin (CMS/HCC) Inject 1 mg under the skin 1(one) time per week 3 each 3 01/28/2024 Activetadalafil 20 mg oral tablet (20 sources)Phosphodiesterase 5 InhibitorStart: 04-90-5371Inupxe 20 mg Tab 20 mg = 1 tab(s), Oral, As Directed, Take one to two hours prior to sexual activity. Do NOT exceed 20 mg (1 tab) in 24 hours., # 30 tab(s), Refills(s) 3, Pharmacy: [facility] [id number], 180, cm, 12/29/24 8:48:00 EDT, Height/Length Dosing, 91.1, kg, 12/29/24 8:48:00 EDT, Weight Dosing Start Date: 12/29/24 Status: Ordered Quantity: 30.0 Unit: tab(s) Repeat number: 4Start: 12-28-2023 End: 68-78-3472ahkjviiac (Cialis) 20 MG tablet Take 20 mg by mouth 12/28/2023 08/05/2024 Discontinuedubidecarenone 100 mg oral capsule (20 sources)Start: 84-16-9962Mlzakdpq Q10 (Coq-10) 100 mg Capsule Active 100 MG PO Daily May 08, 2022 1:00am Complies with drug therapyStart: 12-29-2011 take 1 capsule by mouth twice dailyQ-Sorb Co Q-10 oral capsule 100 mg = 1 cap(s), Oral, BID, Refills(s) 0, Prophylaxis Start Date: 12/29/11 Status: Ordered Repeat number: 1 End: 03-40-2284Vaowczhn Q10 (Co Q-10) 100 MG chewable tablet 02/03/2025 Discontinuedcoenzyme Q-10 30 MG capsule Co Q-10 0 Activevitamin b12 1 mg extended release oral tablet (20 sources)Vitamin S88Cwdfdrcztabqqf (Vitamin B12) 1000 MCG tablet controlled- release 1 (one) time each day at the same time Activetake 1 tablet by mouth once dailycyanocobalamin (VITAMIN B-12) 1,000 mcg tab Take 1,000 mcg by mouth once daily. 0 ActiveComment on above:Take 1,000 mcg by mouth once daily.Vitamins A,C,P-Bqom-Bnnfzf (Preservision Areds) 14,320-226-200 spsv-tu-doef Capsule (14 sources)Start: 56-65-3532cxyx 1 capsule by mouth twice dailyVitamins A,C,Z-Oygi-Xpfgxs (Preservision Areds) 14,320-226-200 xbnf-uo-jabu Capsule Active 1 CAP POTwice daily May 08, 2022 1:00amStart: 24-56-9790nqwo 1 capsule by mouth twice dailyVitamins A,C,R-Hmsw-Nupljd (Preservision Areds) 14,320-226-200 jkhp-af-ayov Capsule Active 1 CAP POTwice daily May 08, 2022 12:00am Completed/Discontinued Medications MedicationDrug Class(es)DatesSig (Normalized)Sig (Original)acetaminophen 325 mg oral tablet (1 source)take 2 tablets by mouth every six hours as neededacetaminophen (TYLENOL) 325 mg tablet Take 650 mg by mouth every 6 hours as needed. 0 Active Comment on above:Take 650 mg by mouth every 6 hours as needed.amLODIPine 5 mg oral tablet (20 sources)Dihydropyridine Calcium Channel BlockerStart: 04-26-2022 End: 95-75-0569fyoo 1 tablet by mouth once dailyAmlodipine 5 mg Tablet Discontinued 5 MG PO Daily April 26, 2022 1:00am May 08, 2022 3:10pm Start: 72-37-8033vdRPASFnrd 5 mg Tab Refills(s) 0 Start Date: 12/20/18 Status: OrderedComment on above:Take 5 mg by mouth once daily.antiox #8/om3/dha/epa/lut/zeax (PRESERVISION AREDS 2, OMEGA-3, ORAL) (1 source)take 1 tablet by mouth twice dailyantiox #8/om3/dha/epa/lut/zeax (PRESERVISION AREDS 2, OMEGA-3, ORAL) Take 1 tablet by mouth twice daily. 0 ActiveComment on above:Take 1 tablet by mouth twice daily. benoxinate hydrochloride 4 mg/ml / fluorescein sodium 2.5 mg/ml ophthalmic solution (1 source)Diagnostic DyeStart: 10-25-2021 End: 15-16-9733pobhiyejqyf-benoxinate 0.25-0.4 % 1 Drop (FLURESS)0.5 ml dulaglutide 3 mg/ml auto-injector (20 sources)GLP-1 Receptor AgonistStart: 05-09-2018 End: 38-43-5676Ggrnwgvrvsg (Trulicity) 1.5 mg/0.5 mL pen injector Discontinued 1.5 MG SUBCUT As Directed April 26, 2022 1:00am September 18, 2023 10:05am ON SUNDAYinject 0.75 mg by subcutaneous injection every weekdulaglutide (Trulicity) 0.75 MG/0.5ML solution pen-injector Inject 0.75 mg under the skin 1 (one) time per week. 0 ActiveComment on above:Inject 1.5 mg subcutaneously once each week. Insulin Glargine (Lantus U-100 Insulin) 100 unit/mL solution (15 sources)Start: 04-26-2022 End: 11-97-9578isdtgh 60 [IU] by subcutaneous injection at bedtimeInsulin Glargine (Lantus U-100 Insulin) 100 unit/mL solution Discontinued 60 UNIT SUBCUT Bedtime April 26, 2022 1:00am June 13, 2023 10:59amStart: 04-26-2022 End: 06-82-0457grtvih 60 [IU] by subcutaneous injection at bedtimeInsulin Glargine (Lantus U-100 Insulin) 100 unit/mL solution Discontinued 60 UNIT SUBCUT Bedtime April 26, 2022 12:00am June 13, 2023 9:59amStart: 04-26-2022 inject 60 [IU] by subcutaneous injection at bedtimeInsulin Glargine (Lantus U- 100 Insulin) 100 unit/mL solution Active 60 UNIT SUBCUT Bedtime 2021 1:00amStart: 78-96-0128gzlebz 60 [IU] by subcutaneous injection at bedtime Insulin Glargine (Lantus U-100 Insulin) 100 unit/mL solution Active 60 UNIT SUBCUT Bedtime 2021 12:00amStart: 17-39-0066nuienh 50 [IU] by subcutaneous injection at bedtimeInsulin Glargine (Lantus U-100 Insulin) 100 unit/mL solution Active 50 UNIT SUBCUT Bedtime 2021 12:00aminsulin lispro 100 unt/ml injectable solution (13 sources)Insulin AnalogStart: 05-08-2022 End: 47-26-5256Bteesbt Lispro (Humalog U-100 Insulin) 100 unit/mL Solution Discontinued 0 .ROUTE .COMPLEX 2021 1:00am June 13, 2023 10:59am 8 units in AM if blood sugar over 150Start: 58-46-1240Xhzkpkj SubCutaneous, Refills(s) 0 Start Date: 12/23/21 Status: Ordered Repeat number: 1 Start: 50-67-7186Kyrvzhk SubCutaneous, Refills(s) 0 Start Date: 12/23/21 Status: OrderedInsulin Lispro (Humalog U-100 Insulin) 100 unit/mL Solution (8 sources)Start: 05-08-2022 End: 94-92-4072Xdvyqta Lispro (Humalog U-100 Insulin) 100 unit/mL Solution Discontinued 0 .ROUTE .COMPLEX 2021 1:00am June 13, 2023 10:59am 8 units in AM if blood sugar over 150Start: 05-08-2022 End: 51-47-9099Owazmut Lispro (Humalog U-100 Insulin) 100 unit/mL Solution Discontinued 0 .ROUTE .COMPLEX 2021 12:00am June 13, 2023 9:59am 8 units in AM if blood sugar over 150meloxicam 15 mg oral tablet (1 source)Nonsteroidal Anti-inflammatory DrugStart: 24-86-4356tfca 1 tablet by mouth once dailymeloxicam (MOBIC) 15 mg tablet Take 15 mg by mouth once daily. 2 06/06/2018 ActiveComment on above:Take 15 mg by mouth once daily. methylPREDNISolone 4 mg oral tablet (14 sources)CorticosteroidStart: 06-06-2022 End: 10-26-7858Jjnhgijkopdmbtirow 4 mg Tablets,Dose Pack Discontinued 0 .ROUTE .COMPLEX June 06, 2022 1:00am June 13, 2023 10:58am orally per package directionsStart: 06-06-2022 End: 65-96-1155Dxpcvnqenajvewoocz Discontinued 0 .ROUTE .COMPLEX 1 June 06, 2022 1:00am June 13, 2023 10:58am orally per package directionsStart: 06-06-2022 End: 84-64-5943Lzcfzvztgmqyzdbznj Discontinued 0 .ROUTE .COMPLEX 1 June 06, 2022 12:00am June 13, 2023 9:58am orally per package directionsStart: 49-08-7194Epuujsvqcqotwxhunu Active 0 .ROUTE .COMPLEX 1 June 06, 2022 1:00am orally per package directionsStart: 58-92-2689Qgosttfsccamtovxgk Active 0 .ROUTE .COMPLEX 1 June 06, 2022 12:00am orally per package directions tamsulosin hydrochloride 0.4 mg oral capsule (20 sources)alpha-Adrenergic BlockerStart: 06-06-2022 End: 56-20-6793exvi 1 capsule by mouth twice dailyTamsulosin 0.4 mg Capsule Discontinued 0.4 MG PO Twice daily 60 June 06, 2022 1:00am June 13, 2023 10:58amStart: 05-21-2018 End: 49-53-2829frvp 1 capsule by mouth once dailyTamsulosin 0.4 mg capsule Discontinued 0.4 MG PO Daily April 26, 2022 1:00am March 110:49am take 1 capsule by mouth every twenty-four hours at bedtimetamsulosin (Flomax) 0.4 MG 24 hr capsule Take 0.4 mg by mouth at bedtime. 0 ActiveComment on above: Take 0.4 mg by mouth once daily.Vitamin B12 1000 mcg Tab (5 sources)Start: 32-56-3042bane 1 tablet by mouth once dailyVitamin B12 1000 mcg Tab 1,000 microgram = 1 tab(s), Oral, Daily, Refills(s) 0, Prophylaxis Start Date: 05/09/18 Status: Ordered Repeat number: 1Start: 75-03-9905szel 1 tablet by mouth once dailyVitamin B12 1000 mcg Tab 1,000 microgram = 1 tab(s), Oral, Daily, Refills(s) 0, Prophylaxis Start Date: 05/09/18 Status: Ordered Problems Active Problems Problem ClassificationProblemDateDocumented DateEpisodic/ChronicAllergic reactions (4 sources)Nummular eczema; 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: [Nummular dermatitis]07-19-2023 EpisodicCalculus of urinary tract (20 sources)Kidney stone; 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: [Calculus of kidney]Onset: 12-20-2021 EpisodicCancer of prostate (20 sources)Malignant neoplasm of prostate; 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: [Malignant tumor of prostate]Onset: 04-14-2022 Resolved: 65-52-3685PndmmgvQfvntn of prostate (20 sources)Personal history of malignant neoplasm of prostate; 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: [History of malignant neoplasm ofprostate]Onset: 36-18-6019IenpcdhvEggdovhuxei and hemorrhagic disorders (13 sources)Thrombocytopenic disorder; 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: [Thrombocytopenia, unspecified]Onset: 395505-65-7227OawceobHdcnddjmzhyi of device; implant or graft (1 source)Dislocated intraocular lens; 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: [Displacement of intraocular lens, sequela]EpisodicCoronary atherosclerosis and other heart disease (9 sources)Coronary arteriosclerosis; 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: [Atherosclerotic heart disease of [place] coronary artery without angina pectoris]Onset: 02-20-2025 86-82-3666XueeiyjNhkcpcun mellitus with complications (20 sources)Type 2 diabetes mellitus with hyperglycemia; 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: [Type 2 diabetes mellitus with ulcer]Onset: 07-27-2022 Resolved: 56-38-6636PewghwgKypyrncn mellitus without complication (5 sources)Type 1 diabetes ybueenwd64-07-8053HkzjagkUnqtgrhsb of lipid metabolism (20 sources)Hypercholesterolemia; 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: [Hyperlipidemia, unspecified] Onset: 01-19-2022 Resolved: 612694-54-3546ZvwmsrfOtxaarmsw hypertension (20 sources)Hypertensive disorder; 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: [Essential (primary) hypertension]Onset: 885939-15-8638SxnqkhhYxofzcpimrgmfl ulcer (except hemorrhage) (20 sources)Peptic ulcer; 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: [Peptic ulcer, site unspecified, unspecified as acute or chronic, without hemorrhage or perforation]Onset: 933481-80-1423LtcdrmwIewnjboksjmzje ulcer (except hemorrhage) (20 sources)H/O: gastric ulcer; 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: [Personal history of peptic ulcer disease]Onset: 115221-81-9375HmixmoztAypyblfhmwjcq symptoms and ill- defined conditions (20 sources)Nocturia; 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: [Nocturia]Onset: 12-25-2022 Resolved: 955293-84-1690MngxpvilAfzgz valve disorders (3 sources)Aortic valve stenosis; 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: [Nonrheumatic aortic (valve) stenosis]Onset: 220862-29-6903XmnqmjsGlfbj valve disorders (2 sources)Cardiac murmur, unspecified; 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: [Cardiac murmur, unspecified]Onset: 32-06-2692YuddvzwxXdolvnhltjw of prostate (20 sources)Benign prostatic hypertrophy with outflow obstruction; 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: [Benign prostatic hyperplasia with lower urinary tract symptoms]Onset: 12-16-2021 Resolved: 99-10-3430OdenrasTvvcj disorders and dislocations; trauma-related (20 sources)Tear of medial meniscus of knee; 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: [Other tear of medial meniscus, current injury, unspecified knee, initial encounter]Onset: 12-25-2022 67-73-2086BbftfopjOvfgjqs on above:LEFT KNEELymphadenitis (20 sources)Reactive lymphadenopathy; 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: [Enlarged lymph nodes, unspecified]Onset: 584296-39-1823MymztwyaGcxbyri (4 sources)Onychomycosis due to dermatophyte ; 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: [Tinea unguium] 24-39-1903RoyzzwnlDpevuoikgxb chest pain (20 sources)Chest pain at rest; 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: [Chest pain, unspecified]Onset: 08-13-2023 Resolved: 505280-66-5975KwkcobhvEpcxaiykkthdwx (20 sources)Osteoarthritis of joint of right shoulder region; 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: [Localized, primary osteoarthritis of the hand]Onset: ChronicOther aftercare (12 sources)Long-term current use of insulin; 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: [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 insulin]09-82-2128CifebftrJfafx and unspecified benign neoplasm (20 sources)Nevus of left iris; 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]Onset: 49-46-6942RmbpooqoIqidp and unspecified benign neoplasm (4 sources)Melanocytic nevus of trunk; 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: [Melanocytic nevi of trunk] 00-51-4315BcblpjcbIqyyi and unspecified benign neoplasm (2 sources)Skin lesion; 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: [Hemangioma of skin and subcutaneous tissue]17-50-6768VaurspjmTmihi and unspecified benign neoplasm (2 sources)Melanocytic nevi of other parts of face; 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: [Benign neoplasm of skin of other and unspecified parts of face]48-10-0341MhgwrcqxOainj circulatory disease (2 sources)Spider nevus; 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: [Nevus, non-neoplastic]06-60-1458Zxyvowkb Other circulatory disease (2 sources)Personal history of transient ischemic attack (TIA), and cerebral infarction without residual deficits; 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: [Personal history of transient ischemic attack (TIA), and cerebral infarction without residual deficits]Onset: 31-69-4411RtqfyqzeIdywe connective tissue disease (20 sources)Cramp in lower limb; 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: [Sleep related leg cramps]Onset: 152363-56-0981PxbhvnjDgepd connective tissue disease (5 sources)Disorder of rotator dehz15-24-1737UpnhanxhGnqwa connective tissue disease (20 sources)Tear of right rotator cuff; 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: [Unspecified rotator cuff tear or rupture of right shoulder, not specified as traumatic]Onset: 12-25-2022 29-82-0789IxoeqjagSspkj connective tissue disease (4 sources)Swelling of left foot; 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: [Other specified soft tissue disorders]12-24-4799McwipjrbKbhsg inflammatory condition of skin (20 sources)Pruritus, unspecified; 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: [Unspecified pruritic disorder] Onset: 712955-20-0101QshuiywsXtdzz male genital disorders (20 sources)Male erectile dysfunction, unspecified; 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: [Erectile dysfunction]Onset: 86-79-5659RubrurgBvofv nervous system disorders (5 sources)Carr's mlpap38-06-2983UaghclckAruun non-traumatic joint disorders (20 sources)Charcot's joint of foot; 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: [Charcot's joint, left ankle and foot]Onset: 777489-48-6632CkseqcpPrzac non-traumatic joint disorders (2 sources)Pain in elbow; 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: [Pain in left elbow]71-28-5933Ewuhwlfq Other nutritional; endocrine; and metabolic disorders (20 sources)Hypomagnesemia; 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: [Hypomagnesemia]Onset: 08-07-2024 44-72-5248OsxlbzfVtynz screening for suspected conditions (not mental disorders or infectious disease) (20 sources)Raised prostate specific antigen; 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: [Elevated prostate specific antigen [PSA]]Onset: 27-58-7523PpztpvgnIwbdo skin disorders (4 sources)Seborrheic keratosis; 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: [Other seborrheic keratosis] 66-88-0720OksyhfevUupoz skin disorders (4 sources)Lentiginosis; 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: [Other melanin hyperpigmentation] 32-23-8526AmpchwxjRqqgw skin disorders (2 sources)History of actinic keratosis; 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: [Personal history of diseases of the skin and subcutaneous tissue]27-18-8504RtcdfowtUrgzq skin disorders (4 sources)Dystrophia unguium; 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: [Nail dystrophy]92-55-4441Upfadkwr Other skin disorders (2 sources)Actinic keratosis; 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: [Actinic keratosis]07-21-2024 EpisodicOther skin disorders (2 sources)Epidermoid cyst; 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: [Epidermal cyst]11-02-8138Nuvgawhh Other upper respiratory disease (20 sources)Allergic rhinitis due to pollen; 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: [Allergic rhinitis due to pollen]Onset: 275512-97-2391DalenioAvqpwubaich; intervertebral disc disorders; other back problems (2 sources)Backache; 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: [Dorsalgia, unspecified]Onset: 12-29-2024 EpisodicTransient cerebral ischemia (20 sources)Transient cerebral ischemia; 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: [Transient cerebral ischemic attack, unspecified]Onset: 509075-62-8614VcsqbyiGlerzqu on above: 2018 Past or Other Problems Problem ClassificationProblemDateDocumented DateEpisodic/ChronicChronic ulcer of skin (20 sources)Pressure ulcer of left heel, stage 2; 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: [Pressure ulcer, heel]Onset: 12-25-2022 Resolved: 184481-99-4917BkqavdeJhpa disorders (20 sources)Mood disordersOnset: Other aftercare (1 source)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; 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: [OTH GAS TENDER CURRENT DRUG THERAPY]Onset: 16-36-0868FshpyyetZfoui aftercare (1 source)snf (current) use of insulin; 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: [GAS TENDER CURRENT USE OF INSULIN]Onset: 32-99-1860LustnpupDkevc aftercare (20 sources)Long-term current use of drug therapy; 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: [Other retirement (current) drug therapy]Onset: 307851-77-9556VjyfgnkdLiqeh upper respiratory infections (20 sources)Acute maxillary sinusitis; 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: [Acute maxillary sinusitis, unspecified]Onset: 06-20-2024 Resolved: 857952-63-7318Znqprufc Results Test NameValueInterpretationReference RangeFacilityOffice Visiton 04-13-2025 Follow-up [id number] Zach Chamorro 1945 Date Provider Department [place] 04/13/2025 CASSANDRA RAYO [facility] Family History Problem Relation Age of Onset Stroke Mother Family Status - Relation Status Age at Mother Father Level of Service:51297 MD OFFICE/OUTPATIENT ESTABLISHED HIGH MDM 40 [facility] 52-29-4325Eqvjeb-up visit [id number] Zach Chamorro 1945 M Date Provider Department [facility] 03/19/2025 166-RON JULIEN CARD [facility] Family History Problem Relation Age of Onset Stroke Mother Family Status - Relation Status Age at Mother Father Level of Service:31985 MD OFFICE/OUTPATIENT ESTABLISHED MOD MDM 30 MIN Reason for Visit and Comments: Follow-up [461402] - Patient is here S/P cardiac stent and angioplasty. Patient denies SOB/LLAMAS chest pain, leg swelling/pain. Patient complains of fatigue when he over does it. Post-Cath [731] Hypertension [686602] Hyperlipidemia [182] Transient Ischemic Attack [451757] Coronary Artery Disease [187] - Multiple vessel coronary artery disease Aneurysm of ascending aorta without rupture [Other] Valve Disorder [3372] - Non-rheumatic aortic valve insufficiency Dizziness [091371] - Lightleaded with position changesNormalUniOhioHealth O'Bleness Hospital30on 88-49-394929Yph patient is Moderately Stable - Low risk of patient condition declining or worsening The patient's goals for the shift include comfort, rest The clinical goals for the shift include stable vitals, safety Problem: Pain - Adult Goal: Verbalizes/displays adequate comfort level or baseline comfort level Outcome: Progressing Flowsheets (Taken 02/24/20252110) Verbalizes/displays adequate comfort level or baseline comfort level: Encourage patient to monitor pain and request assistance Assess pain using appropriate pain scale Problem: Safety - Adult Goal: Free from fall injury Outcome: Progressing Flowsheets (Taken 02/24/20251999) Free from fall injury: [place] fall precautions as indicated by assessment Assess patient frequently for physical needs Problem: Discharge Planning Goal: Discharge to home or other facility with appropriate resources Outcome: Progressing Flowsheets (Taken 02/24/20252110) Discharge to home or other facility with appropriate resources: Identify barriers to discharge with patient and caregiver Problem: Chronic Conditions and Co-morbidities Goal: Patient's chronic conditions and co-morbidity symptoms are monitored and maintained or improved Outcome: Progressing Flowsheets (Taken 02/24/20252110) Care Plan - Patient's Chronic Conditions and Co-Morbidity Symptoms are Monitored and Maintained or Improved: Monitor and assess patient's chronic conditions and comorbid symptoms for stability, deterioration, or improvement Collaborate with multidisciplinary team to address chronic and comorbid conditions and prevent exacerbation or deterioration Update acute care plan with appropriate goals if chronic or comorbid symptoms are exacerbated and prevent overall improvement and discharge Problem: Skin Integrity Goal: LTG_Show no additional skin breakdown Outcome: Progressing Goal: LTG-Decrease in wound size Outcome: Progressing Goal: LTG-Show approproate wound care Outcome: Progressing Goal: LTG-Show approproate wound care Outcome: Progressing Goal: STG-Skin integrity/oral mucus membranes remain intact Outcome: Progressing Goal: STG-Wounds display improvment (i.e Smaller in size, healthy granulation tissue) Outcome: Progressing Goal: STG-Incisions, wounds, drain sites free from signs of infection Outcome: Progressing Goal: STG-Pt/family demonstrates understanding of care plan and preventions of further injury Outcome: ProgressingNormalUniversSumma Health Akron CampusBASIC METABOLIC PANELon 43-31-7847Pgtvd gap [Moles/Vol]10 mmol/LNormal7-20UnParkwood HospitalComment on above:Performed By: #### [id number] ####[facility] ([facility])[address] [place], [place] [address]Nejucxg [Mass/Vol]8.6 mg/dLNormal 8.6-10.3UnParkwood HospitalComment on above:Performed By: #### [id number] ####[facility] ([facility])[address] [place], [place] [address]Lozoutrc [Moles/Vol]104 mmol/IXtdtls95-957XonrewikaoParkwood HospitalComment on above:Performed By: #### [id number] ####[facility] ([facility])[address] [place], [place] [address]II3 [Moles/Vol]26 mmol/BJzpvyz83-90WtugnpzytpParkwood HospitalComment on above:Performed By: #### [id number] ####[facility] ([facility])[address] [place], [place] [address]Akpxufahan [Mass/Vol]0.77 mg/dLNormal 0.70-1.30UnParkwood HospitalComment on above:Performed By: #### [id number] ####[facility] ([facility])[address] [place] [address]CYQJZXHICA FILTRATION RATE ML/MIN/1.73 SQ M.YQLXMMCEA02.1 mL/min/1.73m*2Normal>60.0 [facility] CenterComment on above:Result Comment: The [facility]???s estimated glomerular filtration rate (eG FR) will no longer include consideration of race in its calculation. The National Kidney Foundation???s eGFR Task Force developed new recommendations for the estimation of the glomerular filtration rate in the [place] They recommend immediate implementation of the new equation refit without the race variable in all laboratories because the calculation does not include race. In addition to not including race in the calculation and reporting, it included diversity in its development, and has acceptable performance characteristics and potential consequences that do not disproportionately affect anyone group of individuals. Performed By: #### [id number] ####[facility] ([facility])[address] [place], [place] [address]Adkggpg [Mass/Vol]139 mg/hHYyou57-029GwuhpfnonvParkwood HospitalComment on above:Performed By: #### [id number] ####[facility] ([facility])[address] [place] [address]Bthpxzrnr [Moles/Vol]4.3 mmol/LNormal 3.5-5.1UnParkwood HospitalComment on above:Performed By: #### [id number] ####[facility] ([facility])[address] [place] [address]Adrzer [Moles/Vol]136 mmol/SPepllc068-785PifkjeewyyParkwood HospitalComment on above:Performed By: #### [id number] ####[facility] ([facility])[address] [place] [place] [facility] [address]Nwgh nitrogen [Mass/Vol]19 mg/dLNormal7-25UnParkwood HospitalComment on above:Performed By: #### [id number] ####[facility] ([facility])[address]RAD[facility] MEDICAL CENTERJuventinoFRUIT[place], [place] [address]GVIB NITROGEN/CREATININE (MASS RATIO) IN SER/PLAS24.7NormalUniversSumma Health Akron CampusComment on above: Performed By: #### [id number] ####[facility] ([facility])[address] [place] [address]OMY WITH AUTO DIFFERENTIALon 68-61-5956Nlznlzcum (Bld) [#/Vol]0.02 10*3/uLNormal0.00-0.20UnParkwood HospitalComment on above: Performed By: #### [id number] ####[facility] ([facility])[address] [place], [place] [address]Uugqvkoej/100 WBC (Bld)0.4 %Normal0.0-1.0UnParkwood HospitalComment on above:Performed By: #### [id number] ####[facility] ([facility])[address] [place], [place] [address]Svxkadetdqg (Bld) [#/Vol]0.21 10*3/uL Normal0.00-0.50UnParkwood HospitalComment on above:Performed By: #### [id number] ####[facility] ([facility])[address] [place] [address] Eosinophils/100 WBC (Bld)4.4 %Normal0.0-6.0UnParkwood Hospital Comment on above:Performed By: #### [id number] ####[facility] ([facility])[address] [place], [place] [address]Fnpsqvjjolq distribution width (RBC) [Ratio]14.1 % Djjkbr98.5-15.0UnParkwood HospitalComment on above:Performed By: #### [id number] ####[facility] ([facility])[address] [place] [address] ERYTHROCYTE MEAN CORPUSCULAR HEMOGLOBIN CONCENTRATION (G/DL) BY CCEYMVZOL02.2 g/uMZtdx92.0-35.0UnParkwood HospitalComment on above:Performed By: #### [id number] ####[facility] ([facility])[address] [place], [place] [address]Hpvourkhxh (Bld) [Volume fraction]32.1 %Low39.0-50.0UnParkwood HospitalComment on above:Performed By: #### [id number] ####[facility] ([facility])[address] [place], [place] [address]Jvfoeqsekm (Bld) [Mass/Vol]11.3 g/dL Low13.0-17.0UnParkwood HospitalComment on above:Performed By: #### [id number] ####[facility] ([facility])[address] [place] [address] Immature granulocytes (Bld) [#/Vol]0.03 10*3/uLNormal0.00-0.20UnParkwood HospitalComment on above:Performed By: #### [id number] ####[facility] ([facility])[address] [place], [place] [address]Sludzpsp granulocytes/100 WBC (Bld)0.6 %Normal0.0-1.0UnParkwood HospitalComment on above: Performed By: #### [id number] ####[facility] ([facility])[address] [place], [place] [address]Vcerhpyfkmg (Bld) [#/Vol]0.70 10*3/uLLow1.20-4.00UnParkwood HospitalComment on above:Performed By: #### [id number] ####[facility] [place], [place] [address]Opljlpddbom/100 WBC (Bld) 14.7 %Low20.0-45.0UnParkwood HospitalComment on above:Performed By: #### [id number] ####[facility] [place], [place] [address]QUX (RBC) [Entitic mass]32.8 tcIqkwta60.0-33.0UnParkwood HospitalComment on above:Performed By: #### [id number] ####[facility] ([facility])[address] [place], [place] [address]LUX (RBC) [Entitic vol]93.0 fLNormal 82.0-98.0UnParkwood HospitalComment on above:Performed By: #### [id number] ####[facility] ([facility])[address] [place] [address] Monocytes (Bld) [#/Vol]0.33 10*3/uLNormal0.10-1.00UnParkwood HospitalComment on above:Performed By: #### [id number] ####[facility] ([facility])[address] [place], [place] [address]Noiiaungs/100 WBC (Bld)6.9 %Normal 5.0-12.0The [facility] Medical CenterComment on above:Performed By: #### [id number] ####[facility] ([facility])[address] [place] [address] Neutrophils (Bld) [#/Vol]3.48 10*3/uLNormal1.60-7.60UnParkwood HospitalComment on above:Performed By: #### [id number] ####[facility] ([facility])[address] [place], [place] [address]Edhaniyfsfb/100 WBC (Bld)73.0 %High 40.0-72.0UnParkwood HospitalComment on above:Performed By: #### [id number] ####[facility] ([facility])[address] [place], [place] [address]RZIT (PER 100 WBCS) BY AUTOMATED COUNT0.0 %Fveyhn7XnvuunzbdgParkwood Hospital Comment on above:Performed By: #### [id number] ####[facility] ([facility])[address] [place], [place] [address]FTJOOTHEH (10*3/UL) IN BLOOD AUTOMATED [id number] 10*3/iCYua547-104KcvuxtedyqParkwood HospitalComment on above:Performed By: #### [id number] ####[facility] ([facility])[address] [place] [address]KCV (Bld) [#/Vol]3.45 10*6/uLLow4.20-5.70UnParkwood HospitalComment on above:Performed By: #### [id number] ####[facility] ([facility])[address] [place] [address]SLE (Bld) [#/Vol]4.77 10*3/uLNormal 4.00-10.60UnParkwood HospitalComment on above:Performed By: #### [id number] ####[facility] ([facility])[address] [place], [place] [address]BLIN GLUCOSE METER UNSOLICITED RESULTSon 72-85-5234Zhrrnpu [Mass/Vol]167 mg/dLHigh 70-105UnParkwood HospitalComment on above:Order Comment: Waived Testing in the ED is performed under the ED CLIA certificate #[id number].Result Comment: [id number] By: #### [id number] ####[facility] ([facility])[address] [place], [place] [address]Yutlgfb [Mass/Vol]169 mg/xOAbtd60-731KrwluglszrParkwood HospitalComment on above:Order Comment: Waived Testing in the ED is performed under the ED CLIA certificate #[id number].Result Comment: [email or web address] Performed By: #### [id number] #### [facility] ([facility]) [address] [place], [place] [address]SCER-FM (HEPARIN LEVEL)on 40-19-1472HXRDOYB UNFRACTIONATED (U/ML) IN PPP BY CHROMOGENIC METHOD0.31 IU/mLNormal0.3-0.7UnParkwood HospitalComment on above:Result Comment: Rivaroxaban and Apixaban will interfere with the anti Xa assay used to monitor UFH and LMWH.Performed By: #### [id number] #### [facility] ([facility]) [address] [place], [place] [address]QUXvi 38-86-9544Uhxxnfglpoy distribution width (RBC) [Ratio]14.2 %Jeqgam68.5-15.0UnParkwood HospitalComment on above:Performed By: #### [id number] #### [facility] ([facility]) [address] [place] [address]CGSXEHWGRWP MEAN CORPUSCULAR HEMOGLOBIN CONCENTRATION (G/DL) BY BMKAYMRRR02.1 g/oMXssrqk91.0-35.0UnParkwood HospitalComment on above:Performed By: #### [id number] #### [facility] ([facility]) [address] [place] [address]Ahxstydrek (Bld) [Volume fraction]36.4 %Low39.0-50.0UnParkwood HospitalComment on above:Performed By: #### [id number] #### [facility] ([facility]) [address] [place] [address]Evrsmvgwbt (Bld) [Mass/Vol]12.4 g/dLLow13.0-17.0UnParkwood HospitalComment on above:Performed By: #### [id number] #### [facility] ([facility]) [address] [place] [address]GSI (RBC) [Entitic mass]33.2 wvSnwz15.0-33.0UnParkwood HospitalComment on above:Performed By: #### [id number] #### [facility] ([facility]) [address] [place] [address]BLP (RBC) [Entitic vol]97.3 tROxbsbz98.0-98.0UnParkwood HospitalComment on above:Performed By: #### [id number] #### [facility] ([facility]) [address] [place] [address]GPPLJFOYL (10*3/UL) IN BLOOD AUTOMATED [id number] 10*3/uLLow 150-400UnParkwood HospitalComment on above:Performed By: #### [id number] #### [facility] ([facility]) [address] [address]OUL (Bld) [#/Vol]3.74 10*6/uLLow4.20-5.70The University of Toledo Medical CenterComment on above:Performed By: #### [id number] #### [facility] ([facility]) [address] [place] [address]ZLY (Bld) [#/Vol]5.10 10*3/uLNormal4.00-10.60UnParkwood HospitalComment on above:Performed By: #### [id number] #### [facility] ([facility]) [address] [place] [address]AFku 66-45-4015MB Attestation signed by Cassandra Boucher MD at 02/24/2025 2:26 PM By using the attestations below, I agree that I have read and verify that the documentation has been personally reviewed by me and ensure that the documentation accurately reflects the encounter. GC: I personally saw this patient on the day of the encounter, performed the stewart portions of the service and participated in the management and treatment plan of the patient. I reviewed and confirm the documentation by the Cardiovascular Fellow Dr Mendel Escalante. Please note there may be an additional personal documentation from me. his case was discussed with cardiothoracic surgery. The patient was offered cardiothoracic surgery for bypass and possible aortic valve replacement. He opted out of open heart surgery and prefers percutaneous options. We will proceed with percutaneous treatment of his coronary artery disease. The aortic valve stenosis can be further assessed for need for TAVR. Cassandra Boucher MD H&P reviewed. The patient was examined and there are no changes to the H&P. Procedure reviewed with patient, risks discussed including stroke, OR, . Mr Chamorro is agreeable to proceed with coronary angiogram and PCI today.Normal The [facility] Medical CenterPOCT GLUCOSE METER UNSOLICITED RESULTSon 56-17-2338Elbnvyc [Mass/Vol]238 mg/rDBjuh62-653ReeilhljlkParkwood HospitalComment on above:Order Comment: Waived Testing in the ED is performed under the ED CLIA certificate #[id number].Result Comment: [id number] By: #### [id number] #### [facility] ([facility]) [address] [place], [place] [address]Cqadrcr [Mass/Vol]127 mg/wTGdeh34-058SkdapqxspuParkwood HospitalComment on above:Order Comment: Waived Testing in the ED is performed under the ED CLIA certificate #[id number].Result Comment: [email or web address] Performed By: #### [id number] #### [facility] ([facility]) [address] [place], [place] [address]Ylabpph [Mass/Vol]179 mg/xGGkke64-903JmsxgtuqlgParkwood HospitalComment on above:Order Comment: Waived Testing in the ED is performed under the ED CLIA certificate #[id number].Result Comment: [email or web address] Performed By: #### [id number] #### [facility] ([facility]) [address] [place], [place] [address]Vbvasel [Mass/Vol]177 mg/qPOvko13-041JmpvmgoyysParkwood HospitalComment on above:Order Comment: Waived Testing in the ED is performed under the ED CLIA certificate #[id number].Result Comment: [email or web address] Performed By: #### [id number] #### [facility] ([facility]) [address] [place], [place] [address]mi [id number] patient is Moderately Stable - Low risk of patient condition declining or worsening The patient's goals for the shift include comfort The clinical goals for the shift include VSS Problem: Pain - Adult Goal: Verbalizes/displays adequate comfort level or baseline comfort level Outcome: Progressing Flowsheets (Taken 02/21/20252124) Verbalizes/displays adequate comfort level or baseline comfort level: Encourage patient to monitor pain and request assistance Assess pain using appropriate pain scale Administer analgesics based on type and severity of pain and evaluate response Problem: Safety - Adult Goal: Free from fall injury Outcome: Progressing Flowsheets (Taken 02/21/20252124) Free from fall injury: Assess patient frequently for physical needs Identify cognitive and physical deficits and behaviors that affect risk of falls [place] fall precautions as indicated by assessment Problem: Discharge Planning Goal: Discharge to home or other facility with appropriate resources Outcome: Progressing Flowsheets (Taken 02/21/20252124) Discharge to home or other facility with appropriate resources: Arrange for needed discharge resources and transportation as appropriate Identify barriers to discharge with patient and caregiver Identify discharge learning needs (meds, wound care, etc) Problem: Chronic Conditions and Co-morbidities Goal: Patient's chronic conditions and co-morbidity symptoms are monitored and maintained or improved Outcome: Progressing Flowsheets (Taken 02/21/20252124) Care Plan - Patient's Chronic Conditions and Co-Morbidity Symptoms are Monitored and Maintained or Improved: Monitor and assess patient's chronic conditions and comorbid symptoms for stability, deterioration, or improvement Collaborate with multidisciplinary team to address chronic and comorbid conditions and prevent exacerbation or deterioration Update acute care plan with appropriate goals if chronic or comorbid symptoms are exacerbated and prevent overall improvement and dischargeNormalUniversity of Citizens Medical Center30The patient is Moderately Stable - Low risk of patient condition declining or worsening The patient's goals for the shift include comfort The clinical goals for the shift include vss, safety Over the shift, the patient did make progress toward the following goals. Problem: Pain - Adult Goal: Verbalizes/displays adequate comfort level or baseline comfort level Outcome: Progressing Problem: Safety - Adult Goal: Free from fall injury Outcome: Progressing Problem: Discharge Planning Goal: Discharge to home or other facility with appropriate resources Outcome: Progressing Problem: Chronic Conditions and Co-morbidities Goal: Patient's chronic conditions and co-morbidity symptoms are monitored and maintained or improved Outcome: ProgressingNormalUniversity of Citizens Medical CenterFL ESOPHAGUS BARIUM SWALLOWon 44-86-3951NK ESOPHAGUS BARIUM SWALLOWHistory: Dysphagia, prior to MARC per order Dr. More 1561 images sent 114 seconds fluoro time used 53.93 mGy Dose in reference air kerma EXAM: Esophagram FINDINGS: Dedicated images of the esophagus obtained in various projections including upright oblique projections, left down decubitus and prone imaging There is esophageal dysmotility with numerous nonperistaltic tertiary contractions, spasm and considerable stasis There is suggestion of a small Zenker diverticulum intermittently visible with mild narrowing at the cricopharyngeal region or upper esophageal sphincter There is also prominence of the B ring at the GE junction with no large hiatal hernia. There is suggestion of a small sliding hiatal hernia visible on prone drinking images There was transient delayed passage of a 12 mm barium tablet, passing after drinking more water There was no discrete high-grade or irregular stricture otherwise seen IMPRESSION: No discrete or high-grade irregular stricture seen Prominent B ring contributing to a transient delayed passage of a 12 mm barium tablet passes after drinking more water There is intermittent visualization of small sliding hiatal hernia and Zenker diverticulum Significant esophageal stasis with dysmotility and nonperistaltic tertiary contractions or spasm seen throughout the examination Please refer to the detailed report from procedure Electronically signed: Adriano More.NormalUnParkwood Hospital LIPID PANELon 34-86-1288EWAM/HDL3.8 mg/dLNormalUniversSumma Health Akron CampusComment on above:Performed By: #### [id number] #### [facility] ([facility]) [address] [place], [place] [address]Qkvmdkvouza [Mass/Vol]128 mg/uPZojwks007-362GyeslxscoeParkwood HospitalComment on above:Performed By: #### [id number] #### [facility] ([facility]) [address] [place], [place] [address]Vdabvvbpw [Mass/Vol]189 mg/dLHigh<150UnParkwood HospitalComment on above:Result Comment: TRIGLYCERIDE REFERENCE RANGE: 20 YEARS AND OLDER CARDIOVASCULAR RISK LESS THAN 150 mg/dL LOW RISK 150 TO 199 mg/dL BORDERLINE RISK 200 mg/dL AND GREATER HIGH RISKPerformed By: #### [id number] #### [facility] ([facility]) [address] [place], [place] [address]Jwsjyymvr [Mass/Vol]56 mg/dLNormal0-160UnParkwood HospitalComment on above:Performed By: #### [id number] #### [facility] ([facility]) [address] [place], [place] [address]Pezazgivw [Mass/Vol]34 mg/xLHfjwes20-83UbykczghxuParkwood HospitalComment on above:Performed By: #### [id number] #### [facility] ([facility]) [address] [place], [place] [address]FCN HDL CHOL. (LDL+VLDL)94NormalUniversSumma Health Akron CampusComment on above:Performed By: #### [id number] #### [facility] ([facility]) [address] [place], [place] [address]GMJBH VLDL-C38 mg/dLNormal0-40UnParkwood HospitalComment on above:Performed By: #### [id number] #### [facility] ([facility]) [address] [place], [place] [address]JDNY GLUCOSE METER UNSOLICITED RESULTSon 55-39-5072Gohfktf [Mass/Vol]217 mg/sZZrvp70-753IsuwgamzyhParkwood HospitalComment on above:Order Comment: Waived Testing in the ED is performed under the ED CLIA certificate #[id number].Result Comment: dtfejmh9Duhwzyeyf By: #### [id number] #### [facility] ([facility]) [address] [place], [place] [address]Guuwitd [Mass/Vol]153 mg/iWYuwa29-387IrioepgggmParkwood HospitalComment on above:Order Comment: Waived Testing in the ED is performed under the ED CLIA certificate #[id number].Result Comment: [email or web address] Performed By: #### [id number] #### [facility] ([facility]) [address], [place] [address]Vcjfqyf [Mass/Vol]166 mg/pXHgjs14-263EfjjpaoyazParkwood HospitalComment on above:Order Comment: Waived Testing in the ED is performed under the ED CLIA certificate #[id number].Result Comment: loises4 Performed By: #### [id number] #### [facility] [address] [place] [address]Ffemufw [Mass/Vol]175 mg/cMNdyw27-578SuwigwxrbrParkwood HospitalComment on above:Order Comment: Waived Testing in the ED is performed under the ED CLIA certificate #[id number].Result Comment: loises4 Performed By: #### [id number] ####[facility] [place] [address]vv [phone] patient is Moderately Stable - Low risk of patient condition declining or worsening The patient's goals for the shift include Comort and rest The clinical goals for the shift include VSS and safety Problem: Pain - Adult Goal: Verbalizes/displays adequate comfort level or baseline comfort level Outcome: Progressing Problem: Safety - Adult Goal: Free from fall injury Outcome: Progressing Problem: Discharge Planning Goal: Discharge to home or other facility with appropriate resources Outcome: Progressing Problem: Chronic Conditions and Co-morbidities Goal: Patient's chronic conditions and co-morbidity symptoms are monitored and maintained or improved Outcome: ProgressingNormalUniversohiohealth of Citizens Medical CenterANTI-XA (HEPARIN LEVEL)on 32-13-4754MDNTYYC UNFRACTIONATED (U/ML) IN PPP BY CHROMOGENIC METHOD 0.38 IU/mLNormal0.3-0.7UnParkwood HospitalComment on above: Result Comment: Rivaroxaban and Apixaban will interfere with the anti Xa assay used to monitor UFH and LMWH.Performed By: #### [id number] #### [facility] ([facility]) [address] [place] [address]QAEUAQI UNFRACTIONATED (U/ML) IN PPP BY CHROMOGENIC METHOD0.56 IU/mLNormal0.3-0.7UnParkwood HospitalComment on above:Result Comment: Rivaroxaban and Apixaban will interfere with the anti Xa assay used to monitor UFH and LMWH.Performed By: #### [id number] #### [facility] ([facility] [address] [place] [address]DKTTHWA UNFRACTIONATED (U/ML) IN PPP BY CHROMOGENIC METHOD0.88 IU/mLHigh0.3-0.7UnParkwood HospitalComment on above:Order Comment: Check anti-Xa level every 6 hours while on heparin infusion, or per protocol.Result Comment: Rivaroxaban and Apixaban will interfere with the anti Xa assay used to monitor UFH and LMWH.Performed By: #### [id number] #### [facility] ([facility]) [address] [place] [address]GWYSNMC UNFRACTIONATED (U/ML) IN PPP BY CHROMOGENIC METHOD0.89 IU/mLHigh0.3-0.7UnParkwood HospitalComment on above:Order Comment: Waived Testing in the ED is performed under the ED CLIA certificate #[id number].Result Comment: Rivaroxaban and Apixaban will interfere with the anti Xa assay used to monitor UFH and LMWH.Performed By: #### [id number] #### [facility] ([facility]) [address], [place] [address]IFPCN METABOLIC PANELon 34-82-4034Rfohu gap [Moles/Vol]11 mmol/L Normal7-20UnParkwood HospitalComment on above:Performed By: #### [id number] #### [facility] ([facility]) [address], [place] [address]Bijeiae [Mass/Vol]9.1 mg/dLNormal8.6-10.3UnParkwood HospitalComment on above:Performed By: #### [id number] #### [facility] ([facility]) [address], [place] [address]Psmpxxpv [Moles/Vol]102 mmol/SUqjhbp61-257GggjgzennpParkwood HospitalComment on above:Performed By: #### [id number] #### [facility] ([facility]) [address] [place], [place] [address]EF7 [Moles/Vol]26 mmol/QTrewjf17-70Jringgxjsl of Brock Medical CenterComment on above:Performed By: #### [id number] #### [facility] ([facility]) [address] [place] [address]Wkkpzeaezm [Mass/Vol]0.79 mg/dLNormal0.70-1.30UnParkwood HospitalComment on above:Performed By: #### [id number] #### [facility] ([facility]) [address] [place] [address]TCNRDSJOIR FILTRATION RATE ML/MIN/1.73 SQ M.PXDKYLUGH40.4 mL/min/1.73m*2Normal>60.0UnParkwood HospitalComment on above: Result Comment: The [facility]???s estimated glomerular filtration rate (eGFR) will no longer include consideration of race in its calculation. The National Kidney Foundation???s eGFR Task Force developed new recommendations for the estimation of the glomerular filtration rate in the [place] They recommend immediate implementation of the new equation refit without the race variable in all laboratories because the calculation does not include race. In addition to not including race in the calculation and reporting, it included diversity in its development, and has acceptable performance characteristics and potential consequences that do not disproportionately affect anyone group of individuals.Performed By: #### [id number] #### [facility] ([facility]) [address] [place] [address]Ahdvfmt [Mass/Vol]144 mg/aFOwzw70-209QkgjobtxoaParkwood HospitalComment on above:Performed By: #### [id number] #### [facility] ([facility]) [address] [place] [address]Ulgyakkcn [Moles/Vol]4.4 mmol/LNormal3.5-5.1UnParkwood HospitalComment on above:Performed By: #### [id number] #### [facility] ([facility]) [address] [place] [address]Nxnhts [Moles/Vol]135 mmol/YSds700-302GeamtfjkclParkwood HospitalComment on above:Performed By: #### [id number] #### [facility] ([facility]) [address] [place] [address]Kmrv nitrogen [Mass/Vol]19 mg/dLNormal7-25UnParkwood HospitalComment on above:Performed By: #### [id number] #### [facility] ([facility]) [address] [place] [address]PWCO NITROGEN/CREATININE (MASS RATIO) IN SER/PLAS24.1Normal The [facility] Medical CenterComment on above:Performed By: #### [id number] #### [facility] ([facility]) [address] [place] [address]TIQwf 73-74-0959Gnxlbvjbmos distribution width (RBC) [Ratio]13.9 %Yxtmlj32.5-15.0UnParkwood HospitalComment on above:Performed By: #### [id number] ####[facility] ([facility])[address] [place] [address] ERYTHROCYTE MEAN CORPUSCULAR HEMOGLOBIN CONCENTRATION (G/DL) BY MEGAMSTOH08.7 g/yYOdci99.0-35.0UnParkwood HospitalComment on above:Performed By: #### [id number] ####[facility] ([facility])[address] [place] [address] Hematocrit (Bld) [Volume fraction]32.5 %Low39.0-50.0UnParkwood HospitalComment on above:Performed By: #### [id number] ####[facility] ([facility])[address] [place], [place] [address]Vzdshuypiz (Bld) [Mass/Vol]11.6 g/dL Low13.0-17.0UnParkwood HospitalComment on above:Performed By: #### [id number] ####[facility] ([facility])[address] [place], [place] [address]UWZ (RBC) [Entitic mass]33.1 vmKysd84.0-33.0UnParkwood Hospital Comment on above:Performed By: #### [id number] ####[facility] ([facility] [place], [place] [address]AAG (RBC) [Entitic vol]92.9 eOShmgzt32.0-98.0 [facility] CenterComment on above:Performed By: #### [id number] ####[facility] ([facility])[address] [place] [address]YWAZDRNPX (10*3/UL) IN BLOOD AUTOMATED [id number] 10*3/hXRhz488-066AsumivgezlParkwood HospitalComment on above:Performed By: #### [id number] ####[facility] ([facility])[address] [place] [address]DGK (Bld) [#/Vol]3.50 10*6/uLLow 4.20-5.70UnParkwood HospitalComment on above:Performed By: #### [id number] ####[facility] ([facility])[address] [place] [address]ZJN (Bld) [#/Vol]6.48 10*3/uLNormal4.00-10.60UnParkwood HospitalComment on above:Performed By: #### [id number] ####[facility] ([facility])[address] [place] [address]SGAF GLUCOSE METER UNSOLICITED RESULTSon 75-35-8878Lvqfieu [Mass/Vol]223 mg/zUUvdr70-150OdahqygtrfParkwood HospitalComment on above:Order Comment: Waived Testing in the ED is performed under the ED CLIA certificate #[id number].Result Comment: qwlgycc94Fpsunksyj By: #### [id number] #### [facility] ([facility]) [address] [place] [address]Qoqpnya [Mass/Vol]172 mg/yLCjcn04-504CyceuvrfhiParkwood HospitalComment on above:Order Comment: Waived Testing in the ED is performed under the ED CLIA certificate #[id number].Result Comment: alcides Performed By: #### [id number] #### [facility] ([facility] [address], [place] [address]Uithiip [Mass/Vol]198 mg/dLLeyw79-754BvkuftqpzdParkwood HospitalComment on above:Order Comment: Waived Testing in the ED is performed under the ED CLIA certificate #[id number].Result Comment: sdaleyk Performed By: #### [id number] #### [facility] ([facility]) [address] [place], [place] [address]Qspgxao [Mass/Vol]150 mg/jRFhkl85-520EutfgedpkdThe University of Toledo Medical CenterComment on above:Order Comment: Waived Testing in the ED is performed under the ED CLIA certificate #[id number].Result Comment: sdaleyk Performed By: #### [id number] #### [facility] ([facility]) [address] [place], [place] [address]fl 29-80-939783Csg patient is Moderately Stable - Low risk of patient condition declining or worsening The patient's goals for the shift include comfort The clinical goals for the shift include VSS Problem: Pain - Adult Goal: Verbalizes/displays adequate comfort level or baseline comfort level Outcome: Progressing Flowsheets (Taken 02/21/20252124) Verbalizes/displays adequate comfort level or baseline comfort level: Encourage patient to monitor pain and request assistance Assess pain using appropriate pain scale Administer analgesics based on type and severity of pain and evaluate response Problem: Safety - Adult Goal: Free from fall injury Outcome: Progressing Flowsheets (Taken 02/21/20252124) Free from fall injury: Assess patient frequently for physical needs Identify cognitive and physical deficits and behaviors that affect risk of falls [place] fall precautions as indicated by assessment Problem: Discharge Planning Goal: Discharge to home or other facility with appropriate resources Outcome: Progressing Flowsheets (Taken 02/21/20252124) Discharge to home or other facility with appropriate resources: Arrange for needed discharge resources and transportation as appropriate Identify barriers to discharge with patient and caregiver Identify discharge learning needs (meds, wound care, etc) Problem: Chronic Conditions and Co-morbidities Goal: Patient's chronic conditions and co-morbidity symptoms are monitored and maintained or improved Outcome: Progressing Flowsheets (Taken 02/21/20252124) Care Plan - Patient's Chronic Conditions and Co-Morbidity Symptoms are Monitored and Maintained or Improved: Monitor and assess patient's chronic conditions and comorbid symptoms for stability, deterioration, or improvement Collaborate with multidisciplinary team to address chronic and comorbid conditions and prevent exacerbation or deterioration Update acute care plan with appropriate goals if chronic or comorbid symptoms are exacerbated and prevent overall improvement and dischargeNormalUniversSumma Health Akron CampusANTI-XA (HEPARIN LEVEL)on 56-63-0414AZVNGCV UNFRACTIONATED (U/ML) IN PPP BY CHROMOGENIC METHOD0.49 IU/mLNormal0.3-0.7UnParkwood HospitalComment on above:Order Comment: Check anti-Xa level every 6 hours while on heparin infusion, or per protocol.Result Comment: Rivaroxaban and Apixaban will interfere with the anti Xa assay used to monitor UFH and LMWH. Performed By: #### [id number] ####[facility] ([facility])[address] [place] [address]LOVEdq 67-13-3330VXIIMZPAF PARTIAL THROMBOPLASTIN TIME IN PPP BY COAGULATION ASSAY30.2 SdibtrfSpmqrh28.0-35.0UnParkwood HospitalComment on above:Order Comment: Baseline aPTT before initiating heparin infusion.Result Comment: Clinical significance of the APTT is questionable in the presence of heparin.Performed By: #### [id number] ####[facility] ([facility])[address] [place], [place] [address]XTOCU METABOLIC PANELon 02-21-2025 Anion gap [Moles/Vol]10 mmol/LNormal7-20UnParkwood Hospital Comment on above:Performed By: #### [id number] ####[facility] ([facility])[address] [place] [address]Jeyzivi [Mass/Vol]8.8 mg/dLNormal8.6-10.3UnParkwood HospitalComment on above:Performed By: #### [id number] ####[facility] ([facility])[address] [place], [place] [address]Xvpjepkq [Moles/Vol]103 mmol/YYlmvyu20-785ZecwdbclwnParkwood HospitalComment on above:Performed By: #### [id number] ####[facility] ([facility])[address] [place] [address] CO2 [Moles/Vol]25 mmol/ZQstmfr89-27ZiicepapuxParkwood HospitalComment on above:Performed By: #### [id number] ####[facility] ([facility])[address] [place] [address]Efcqokunrs [Mass/Vol]0.63 mg/dLLow0.70-1.30UnParkwood HospitalComment on above:Performed By: #### [id number] ####[facility] ([facility])[address] [place] [address]IXTZCTGQDM FILTRATION RATE ML/MIN/1.73 SQ M.KIGPEWRAT55.8 mL/min/1.73m*2Normal>60.0UnParkwood HospitalComment on above:Result Comment: The [facility]???s estimated glomerular filtration rate (eGFR) will no longer include consideration of race in its calculation. The National Kidney Foundation???s eGFR Task Force developed new recommendations for the estimation of the glomerular filtration rate in the [place] They recommend immediate implementation of the new equation refit without the race variable in all laboratories because the calculation does not include race. In addition to not including race in the calculation and reporting, it included diversity in its development, and has acceptable performance characteristics and potential consequences that do not disproportionately affect anyone group of individuals.Performed By: #### [id number] ####[facility] ([facility])[address] [place] [address]Slpulhw [Mass/Vol]137 mg/sKNezn56-641KpfmeglemxParkwood HospitalComment on above:Performed By: #### [id number] ####[facility] ([facility])[address] [place] [address]Opiefmiyi [Moles/Vol]4.1 mmol/LNormal3.5-5.1UnParkwood HospitalComment on above:Performed By: #### [id number] ####[facility] ([facility])[address] [place] [address]Ljgztf [Moles/Vol]134 mmol/LLow 136-145UnParkwood HospitalComment on above:Performed By: #### [id number] ####[facility] ([facility])[address] [place], [place] [address]Mpkk nitrogen [Mass/Vol]17 mg/dLNormal7-25UnParkwood HospitalComment on above:Performed By: #### [id number] ####[facility] ([facility])[address] [place] [address]IPTG NITROGEN/CREATININE (MASS RATIO) IN SER/PLAS27.0Normal The [facility] Toledo Medical CenterComment on above:Performed By: #### [id number] ####[facility] ([facility])[address] [place] [address]RKZen 02-21-2025 Erythrocyte distribution width (RBC) [Ratio]14.0 %Tmgwdg33.5-15.0UnParkwood HospitalComment on above:Performed By: #### [id number] #### [facility] ([facility]) [address] [place], [place] [address]AMUFVHKWPPV MEAN CORPUSCULAR HEMOGLOBIN CONCENTRATION (G/DL) BY RIXUYXLHG20.3 g/eJBkqn67.0-35.0UnParkwood HospitalComment on above:Performed By: #### [id number] #### [facility] ([facility]) [address] [place] [place], [place] [address]Gasurkqvhw (Bld) [Volume fraction]32.6 %Low39.0-50.0UnParkwood HospitalComment on above:Performed By: #### [id number] #### [facility] ([facility]) [address] [place] [place], [place] [address]Qswzkxwfqd (Bld) [Mass/Vol]11.5 g/dLLow13.0-17.0UnParkwood HospitalComment on above:Performed By: #### [id number] #### [facility] ([facility]) [address] [place], [place] [address]HPB (RBC) [Entitic mass]32.7 zhQgbpbd57.0-33.0UnParkwood HospitalComment on above:Performed By: #### [id number] #### [facility] ([facility]) [address] [place], [place] [address]VOG (RBC) [Entitic vol]92.6 aUWjgtlh95.0-98.0UnParkwood HospitalComment on above:Performed By: #### [id number] #### [facility] ([facility]) [address] [place], [place] [address]RVKPAEMIH (10*3/UL) IN BLOOD AUTOMATED [id number] 10*3/uLLow 150-400UnParkwood HospitalComment on above:Performed By: #### [id number] #### [facility] ([facility]) [address] [facility] [place], [place] [address]EYV (Bld) [#/Vol]3.52 10*6/uLLow4.20-5.70UnParkwood HospitalComment on above:Performed By: #### [id number] #### [facility] ([facility]) [address] [facility] [place], [place] [address]HPU (Bld) [#/Vol]5.74 10*3/uLNormal4.00-10.60UnParkwood HospitalComment on above:Performed By: #### [id number] #### [facility] ([facility]) [address] [facility] [place], [place] [address]TOLJOFMan 92-06-5104UHDCRDQHfcigcwpv consult to Cardiothoracic Surgery Consult performed by: Kristy Mcadams CNP Consult ordered by: Sourav Kumari MD Reason for consult: Multivessel CAD Assessment/Recommendations: See Plan Below Cardiothoracic Surgery Consultation Note 02/20/2025 Room: [facility]/3177- Reason For Consult multivessel disease, moderate aortic stenosis Referring Provider: Chanelle Saez MD History Of Present Illness Zach Chamorro is a 79 y.o. male with medical history significant for the following: HTN, mild thrombocytopenia, type 2 diabetes (last A1c), history of kidney stones, BPH, Charcot joint of left foot, HLD, history of gastric ulcer(2005, d/t NSAID), history of prostate cancer (completed SBRT June,),and history of TIA (2017). Mr. Chamorro was evaluated by Dr. Boucher in the outpatient clinic for surgery clearance for a urology procedure. He complained of intermittent chest pain. He was found to have EKG changes and underwent a stress test stress test on 01/14/2025 which was positive for EKG changes, ST dep 1 mm in V5-V6, neg lexiscan, TID 1.0. TTE 01/2025: EF 65-70%, no WMA, sev LVH, mild-mod . RVSP 38 Mr. Chamorro was planned for outpatient cardiac catheterization, but presented with chestpain to [facility]. No EKG changes, negative troponinn. He was transferred to [facility] for cath today for unstable angina. Cardiac catheterization revealed the following: Coronary Angiography: Left main: Normal LAD: There is a proximal 80% ulcerated stenosis. The second large diagonal branch has a proximal 80% stenosis LCX: The distal vessel has a discrete 80% stenosis RCA: There is diffuse calcfication throughout the proximal and mid-vessel. He was seen and evaluated at bedside this morning. No fever or chills. No dizziness or lightheadedness. He has chronic, overall difficulty with balance, which he describes as mild in nature. No history of falls or loss of balance or use of assistive devices. 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 Functionally independent. Able to go up a flight of stairs. Denies chest pain and palpitations. No jaw, neck or shoulder pain. No nausea or vomiting. No abdominal pain. No orthopnea or PND. No history of DVT or PE. No PVD. Assessment: Principal Problem: Angina pectoris, unstable (CMS/HCC) Active Problems: Benign essential hypertension Primary hypertension Kidney stones Type 2 diabetes mellitus treated with insulin (CMS/HCC) Unstable angina (CMS/HCC) Mixed hyperlipidemia Coronary artery disease of [place] artery of [place] heart with stable angina pectoris Ascending aortic aneurysm Mitral valve stenosis Aortic valve stenosis Plan : -Patient seen and evaluated by Cardiothoracic Team. Dr. Otf Georges personally examined the patient and reviewed The Cardiac Catherization, Echocardiogram, and Other Diagnostic Testing. Findings discussed with the patient. Explained current disease process and reviewed treatment options. -Patient has coronary artery and structural heart disease. The circumflex is nondominant. He has severe LVH and likely overestimated ventricular systolic function of 65%. There appears to be moderate aortic stenosis. The surface echo also demonstrates a dilated ascending aorta. -I had an extensive conversation with the patient and his regarding his overall cardiac conditions, including CAD, aortic valve disease, LVH and ascending aortic aneurysm. Time was allowed for questions and concerns. All questions were answered to their satisfaction. -CT Surgery Recommendation: -Bilateral carotid ultrasound to rule out carotid artery disease -Vein mapping of bilateral lower extremities to assess integrity and suitability of veins and rule out DVT -Repeat echocardiogram or possibly MARC to better assess valvular disease -Pulmonary function testing to assess for chronic respiratory disease -CT scan of the chest to better assess the ascending aorta, recommend keeping SBP less than 130 mmHg and resting heart rate less than 90 bpm - Medical management of CAD per cardiology and primary teams - We will await findings on the testing then determine patient's overall cardiac disease and candidacy for surgery. If patient determined to be a candidate for surgery, Estimated STS Score for this surgery is as follows (see charts below): Isolated CABG--STS 2.33% operative mortality; 6.34% overall morbidity mortality CABG plus SAVR--STS 4.4% operative mortality; 15.8% overall morbidity mortality If patient requires repair of the ascending aorta, or mitral valve repair or replacement, this would of course pose additional surgical risk. At this time we will get additional imaging and discussed case with the interventional cardiology team. Procedure Type: Isolated CABG Perioperative Outcome Estimate % Operative Mortality 2.33% Morbidity & Mortality 6.34% Stroke 1% Renal Failure 1.4% Reoperation 2.69% Prolonged Ventilation 2.71% De (more content not included)...[facility] HospitalCT CHEST WO IV CONTRASTon [id number] CHEST WO IV CONTRASTCT CHEST WO IV CONTRAST CLINICAL INFORMATION: Aneurysm. COMPARISON: None. PROCEDURE: Routine CT chest obtained without contrast. Multiplanar reformats obtained from the axial data. Automated exposure control was utilized. All CT scans at this facility use dose modulation, iterative reconstruction, and/or weight based dosing when appropriate to reduce radiation dose to as low as reasonably achievable. FINDINGS: Bibasilar atelectasis. Minimal peripheral airspace opacifications. Mild scarring. No effusions. No marked fibrosis or interstitial lung disease. No honeycombing. Vicarious excretion of contrast in the gallbladder. Nonspecific mild perinephric stranding. Atherosclerotic calcifications in the aorta. Ascending aorta measures 4.4 x 4.1 cm consistent with aneurysm. Heavy coronary artery calcifications. Bowel calcifications. Pulmonary arteries are normal caliber. Gynecomastia. Trace pericardial fluid. No adenopathy. Degenerative changes. Right shoulder arthroplasty. IMPRESSION: * Ascending aortic aneurysm measuring 4.4 x 4.1 cm. Electronically signed: Rajinder Nuno MD.NormalUnParkwood HospitalPLATELET COUNTon [id number] (10*3/UL) IN BLOOD AUTOMATED [id number] 10*3/jNVnbavj175-235QzcmqicogrParkwood HospitalComment on above: Performed By: #### [id number] #### [facility] ([facility]) [address] [place], [place] [address]WWRU GLUCOSE METER UNSOLICITED RESULTSon 97-47-0240Iadvccj [Mass/Vol]186 mg/eGRkfm74-194YgzqzebzmoParkwood HospitalComment on above:Order Comment: Waived Testing in the ED is performed under the ED CLIA certificate #[id number].Result Comment: [id number] By: #### [id number] ####[facility] ([facility])[address] [facility], [place] [address]Ceuwsvb [Mass/Vol]151 mg/mKDghs68-760VgdtrosdraThe University of Toledo Medical CenterComment on above:Order Comment: Waived Testing in the ED is performed under the ED CLIA certificate #[id number].Result Comment: [email or web address] By: #### [id number] ####[facility] ([facility])[address] [place], [place] [address]Jxqqelf [Mass/Vol]191 mg/tCJasg00-568SxzxfeutkxThe University of Toledo Medical CenterComment on above:Order Comment: Waived Testing in the ED is performed under the ED CLIA certificate #[id number].Result Comment: [email or web address] By: #### [id number] ####[facility] ([facility])[address] [facility], [place] [address]Zmlvllh [Mass/Vol]150 mg/kEDawt26-643TojsoshcatParkwood HospitalComment on above:Order Comment: Waived Testing in the ED is performed under the ED CLIA certificate #[id number].Result Comment: [email or web address] By: #### [id number] ####[facility] ([facility])[address] [place], [place] [address]bp 02-20-2025 30The patient is Moderately Stable - Low risk of patient condition declining or worsening The patient's goals for the shift include comfort The clinical goals for the shift include VSS Problem: Pain - Adult Goal: Verbalizes/displays adequate comfort level or baseline comfort level Outcome: Progressing Flowsheets (Taken 02/20/20252254) Verbalizes/displays adequate comfort level or baseline comfort level: Encourage patient to monitor pain and request assistance Assess pain using appropriate pain scale Administer analgesics based on type and severity of pain and evaluate response Implement non-pharmacological measures as appropriate and evaluate response Consider cultural and social influences on pain and pain management Notify Licensed Independent Practitioner if interventions unsuccessful or patient reports new pain Problem: Safety - Adult Goal: Free from fall injury Outcome: Progressing Flowsheets (Taken 02/20/20252254) Free from fall injury: Assess patient frequently for physical needs Identify cognitive and physical deficits and behaviors that affect risk of falls [place] fall precautions as indicated by assessment Educate patient/family on patient safety, including physical limitations Instruct patient to call for assistance with activity based on assessment Modify environment to reduce risk of injury Consider OT/PT consult to assist with strengthening/mobility Problem: Discharge Planning Goal: Discharge to home or other facility with appropriate resources Outcome: Progressing Flowsheets (Taken 02/20/20252254) Discharge to home or other facility with appropriate resources: Identify barriers to discharge with patient and caregiver Arrange for needed discharge resources and transportation as appropriate Identify discharge learning needs (meds, wound care, etc) Arrange for interpreters to assist at discharge as needed Refer to discharge planning if patient needs post-hospital services based on physician order or complex needs related to functional status, cognitive ability or social support system Problem: Chronic Conditions and Co-morbidities Goal: Patient's chronic conditions and co-morbidity symptoms are monitored and maintained or improved Outcome: Progressing Flowsheets (Taken 02/20/20252254) Care Plan - Patient's Chronic Conditions and Co-Morbidity Symptoms are Monitored and Maintained or Improved: Monitor and assess patient's chronic conditions and comorbid symptoms for stability, deterioration, or improvement Collaborate with multidisciplinary team to address chronic and comorbid conditions and prevent exacerbation or deterioration Update acute care plan with appropriate goals if chronic or comorbid symptoms are exacerbated and prevent overall improvement and dischargeNormalUniversity of Brock Medical CenterBasophils Auto (Bld) [#/Vol]Ordered By: Chanelle Daquan on 28-92-8181Bsawlcdaw (Bld) [#/Vol]0.0 10 3/uL0.0-0.1FUniversity Hospitals Samaritan Medical CenterBasophils/100 WBC Auto (Bld)Ordered By: Chanelle Daquan on 02-20-2025 Basophils/100 WBC (Bld)0.7 %0.2-2.0[facility] HospitalCBC WITH AUTO DIFFERENTIALon 20-21-6996Nrcbwrzug (Bld) [#/Vol]0.04 10*3/uLNormal0.00-0.20 The [facility] CenterComment on above:Performed By: #### [id number] ####[facility] ([facility])[address] [place], [place] [address]Xtudtfuly/100 WBC (Bld)0.7 %Normal0.0-1.0UnParkwood HospitalComment on above: Performed By: #### [id number] ####[facility] ([facility])[address] [place], [place] [address]Laxhetfxqiz (Bld) [#/Vol]0.27 10*3/uLNormal0.00-0.50 [facility] CenterComment on above:Performed By: #### [id number] ####[facility] ([facility])[address] [place], [place] [address]Ghdqwirnajp/100 WBC (Bld)4.7 %Normal0.0-6.0UnParkwood HospitalComment on above: Performed By: #### [id number] ####[facility] ([facility])[address] [place], [place] [address]Zharsyqdubv distribution width (RBC) [Ratio]13.9 %Normal 11.5-15.0UnParkwood HospitalComment on above:Performed By: #### [id number] ####[facility] ([facility])[address] [place] [address] ERYTHROCYTE MEAN CORPUSCULAR HEMOGLOBIN CONCENTRATION (G/DL) BY QYWXKPUHL90.8 g/fSTerm37.0-35.0UnParkwood HospitalComment on above:Performed By: #### [id number] ####[facility] [place] [address]Gfrxszivsn (Bld) [Volume fraction]32.1 %Low39.0-50.0UnParkwood HospitalComment on above:Performed By: #### [id number] ####[facility] ([facility])[address] [place], [place] [address]Atbrgwbjie (Bld) [Mass/Vol]11.5 g/dL Low13.0-17.0UnParkwood HospitalComment on above:Performed By: #### [id number] ####[facility] ([facility])[address] [place] [address] Immature granulocytes (Bld) [#/Vol]0.02 10*3/uLNormal0.00-0.20UnParkwood HospitalComment on above:Performed By: #### [id number] ####[facility] ([facility])[address] [place], [place] [address]Raywbdvm granulocytes/100 WBC (Bld)0.3 %Normal0.0-1.0UnParkwood HospitalComment on above: Performed By: #### [id number] ####[facility] ([facility])[address] [facility] [place], [place] [address]Ikwzfloibmy (Bld) [#/Vol]1.31 10*3/uLNormal1.20-4.00 [facility] CenterComment on above:Performed By: #### [id number] ####[facility] ([facility])[address]F[facility] [place], [place] [address]Vkceukjtqjs/100 WBC (Bld)22.9 %Muhvmu38.0-45.0UnParkwood HospitalComment on above:Performed By: #### [id number] ####[facility] ([facility])[address] [place] [address]RKM (RBC) [Entitic mass]32.9 juArurai15.0-33.0UnParkwood HospitalComment on above:Performed By: #### [id number] ####[facility] ([facility])[address] [place] [address]BCD (RBC) [Entitic vol] 91.7 oIKirttf83.0-98.0UnParkwood HospitalComment on above: Performed By: #### [id number] ####[facility] ([facility])[address] [place] [address]Qzgganvwd (Bld) [#/Vol]0.37 10*3/uLNormal0.10-1.00UnParkwood HospitalComment on above:Performed By: #### [id number] ####[facility] ([facility])[address] [place] [address]Rzlvzmacm/100 WBC (Bld) 6.5 %Normal5.0-12.0UnParkwood HospitalComment on above:Performed By: #### [id number] ####[facility] ([facility])[address] [place] [address]Tsdlvsiqwhb (Bld) [#/Vol]3.71 10*3/uLNormal1.60-7.60UnParkwood HospitalComment on above:Performed By: #### [id number] ####[facility] ([facility])[address] [place] [address]Pirggljmhmo/100 WBC (Bld)64.9 %Normal 40.0-72.0UnParkwood HospitalComment on above:Performed By: #### [id number] ####[facility] ([facility])[address] [place] [address]OKFU (PER 100 WBCS) BY AUTOMATED COUNT0.0 %Whhggi1VzechefyftParkwood Hospital Comment on above:Performed By: #### [id number] ####[facility] ([facility])[address] [place] [address]ZMCSMUJXK (10*3/UL) IN BLOOD AUTOMATED [id number] 10*3/lPPis745-337RrjbphtlyiParkwood HospitalComment on above:Performed By: #### [id number] ####[facility] ([facility])[address] [place] [address]VZV (Bld) [#/Vol]3.50 10*6/uLLow4.20-5.70UnParkwood HospitalComment on above:Performed By: #### [id number] ####[facility] ([facility])[address] [place] [address]MMU (Bld) [#/Vol]5.72 10*3/uLNormal 4.00-10.60UnParkwood HospitalComment on above:Performed By: #### [id number] ####[facility] ([facility])[address] [place] [address] COMPREHENSIVE METABOLIC PANELon 66-57-7826Yfrmgvj [Mass/Vol]4.1 g/dLNormal 3.5-5.7UnParkwood HospitalComment on above:Performed By: #### [id number] #### [facility] ([facility]) [address] [place] [address]MBF [Catalytic activity/Vol]71 U/CRsepma05-139VlgfubfuocParkwood HospitalComment on above:Performed By: #### [id number] #### [facility] ([facility]) [address] [place] [address]YGJ [Catalytic activity/Vol]19 U/LNormal7-52UnParkwood HospitalComment on above:Performed By: #### [id number] #### [facility] ([facility]) [address] [place], [place] [address]Deqza gap [Moles/Vol]11 mmol/LNormal7-20UnParkwood HospitalComment on above:Performed By: #### [id number] #### [facility] ([facility]) [address] [place] [address]DXK [Catalytic activity/Vol]18 U/TYnemdn54-82SszhjqnyktParkwood HospitalComment on above:Performed By: #### [id number] #### [facility] ([facility]) [address] [place] [address]Syutalrff [Mass/Vol]0.6 mg/dLNormal0.3-1.0UnParkwood HospitalComment on above:Performed By: #### [id number] #### [facility] ([facility]) [address] [place] [address]Phwusnx [Mass/Vol]8.8 mg/dLNormal8.6-10.3UnParkwood HospitalComment on above:Performed By: #### [id number] #### [facility] ([facility]) [address] [place] [address]Iogaondp [Moles/Vol]103 mmol/AZovcop32-701UyxkvrkaurParkwood HospitalComment on above:Performed By: #### [id number] #### [facility] ([facility]) [address] [place] [address]BU3 [Moles/Vol]24 mmol/KEghkbs29-69RkmrjlaknjParkwood HospitalComment on above:Performed By: #### [id number] #### [facility] ([facility]) [address] [place] [address]Urvmbiczwe [Mass/Vol]0.69 mg/dLLow0.70-1.30UnParkwood HospitalComment on above:Performed By: #### [id number] #### [facility] ([facility]) [address] [place] [address]XMXRPAYHRZ FILTRATION RATE ML/MIN/1.73 SQ M.RYHGLVDMN19.1 mL/min/1.73m*2Normal>60.0UnParkwood HospitalComment on above: Result Comment: The [facility]???s estimated glomerular filtration rate (eGFR) will no longer include consideration of race in its calculation. The National Kidney Foundation???s eGFR Task Force developed new recommendations for the estimation of the glomerular filtration rate in the [place] They recommend immediate implementation of the new equation refit without the race variable in all laboratories because the calculation does not include race. In addition to not including race in the calculation and reporting, it included diversity in its development, and has acceptable performance characteristics and potential consequences that do not disproportionately affect anyone group of individuals.Performed By: #### [id number] #### [facility] ([facility]) [address] [place], [place] [address]Xedndla [Mass/Vol]114 mg/xFYabq23-489RrkpqmyxpqParkwood HospitalComment on above:Performed By: #### [id number] #### [facility] ([facility]) [address] [place], [place] [address]Lbbaucxbb [Moles/Vol]4.4 mmol/LNormal3.5-5.1UnParkwood HospitalComment on above:Performed By: #### [id number] #### [facility] ([facility]) [address] [place], [place] [address]Zrjsrul [Mass/Vol]6.3 g/dLNormal6.0-8.3UnParkwood HospitalComment on above:Performed By: #### [id number] #### [facility] ([facility]) [address] [place], [place] [address]Grobsr [Moles/Vol]134 mmol/ZLfe348-604MzsnixxheqParkwood HospitalComment on above:Performed By: #### [id number] #### [facility] ([facility]) [address] [place], [place] [address]Yzbb nitrogen [Mass/Vol]20 mg/dLNormal7-25UnParkwood HospitalComment on above:Performed By: #### [id number] #### [facility] ([facility]) [address] [place], [place] [address]FKIS NITROGEN/CREATININE (MASS RATIO) IN SER/PLAS29.0Normal [facility] CenterComment on above:Performed By: #### [id number] #### [facility] ([facility]) [address] [place], [place] [address]Scmdnpqvsbj/100 WBC Auto (Bld)Ordered By: Chanelle Saez on 37-13-0947Kzyemvzbbpe/100 WBC (Bld)5.4 %0.9-7.0[facility] Erythrocyte distribution width Auto (RBC) [Ratio]Ordered By: Chanelle Saez on 51-11-9462Oivrmkgfqvx distribution width (RBC) [Ratio]13.5 %11.0-15.0[facility] Memorial HospitalGlobulin Calc (S) [Mass/Vol]Ordered By: Chanelle Saez on 42-88-5185Iwtqkmtn (S) [Mass/Vol]3.4 g/dLLicking Memorial Hospital Glomerular filtration rate (GFR) estimation in non- AmericanOrdered By: Chanelle Daquan on 60-57-9930EBW/1.73 sq M.predicted among non-blacks MDRD (S/P/Bld) [Vol rate/Area]mL/min/{1.73_m2}>=60 mL/min/1.[address]m [address] [place], [place] [address]HIGH SENSITIVITY TROPONIN Ion 40-80-1559FP TROPONIN I (NG/L)4 ng/LNormal <20UnParkwood HospitalComment on above:Performed By: #### [id number] #### [facility] ([facility]) [address] [place], [place] [address]KDat [id number] Attestation signed by Sourav Kumari MD at 02/20/2025 3:57 PM Mr. Chamorro was seen and examined by me. I discussed with him the risks and benefits of cardiac catheterization for unstable angina. The risks include but are not limited to , OR, stroke, renal failure, vascular injury, emergency surgery, bleeding etc, he understands and agrees to proceed. We also discussed possible PCI and he agrees if it is appropriate. History Of Present Illness Zach Chamorro is a 79 y.o. male with PMH of HTN, HLD, DM, h/o prostate cancer, h/o TIA. He initially saw Dr Boucher in clinic for clearance for urologic surgery as he was having intermittent chest pain. Stress test was positive for EKG changes, ST dep 1 mm in V5-V6, neg lexiscan, TID 1.0. TTE 01/2025: EF 65-70%, no WMA, sev LVH, mild-mod . RVSP 38 He was planned for o/p cath however today presented with chestpain to [facility]. No EKG changes, negative troponinn. He was transferred to [facility] for cath today for unstable angina. He is on ASA, imdur 30, lisinopril 20, toprol 50, crestor 10 Hb 11.5, Cr 0.69 Past Medical History Medical History[1] Surgical History Surgical History[2] Social History Social History Socioeconomic History Marital status: Spouse name: Not on file Number of children: Not on file Years of education: Not on file Highest education level: Not on file Occupational History Not on file Tobacco Use Smoking status: Never Smokeless tobacco: Never Substance and Sexual Activity Alcohol use: Yes Comment: occasional Drug use: Never Sexual activity: Defer Other Topics Concern Not on file Social History Narrative Not on file Social Drivers of Health Financial Resource Strain: Low Risk (02/20/2025) Overall Financial Resource Strain (CARDIA) Difficulty of Paying Living Expenses: Not hard at all Food Insecurity: No Food Insecurity (02/20/2025) Hunger Vital Sign Worried About Running Out of Food in the Last Year: Never true Ran Out of Food in the Last Year: Not on file Transportation Needs: No Transportation Needs (02/20/2025) Transportation Lack of Transportation (Medical): No Lack of Transportation (Non-Medical): Not on file Physical Activity: Patient Declined (01/22/2024) Received from [facility] Exercise Vital Sign Days of Exercise per Week: Patient declined Minutes of Exercise per Session: Patient declined Stress: Patient Declined (01/22/2024) Received from [facility] of Occupational Health - Occupational Stress Questionnaire Feeling of Stress : Patient declined Social Connections: Unknown (01/22/2024) Received from [facility] Social Connection and Isolation Panel [NHANES] Frequency of Communication with Friends and Family: More than three times a week Frequency of Social Gatherings with Friends and Family: Once a week Attends Sikhism Services: Patient declined Active Member of Clubs or Organizations: No Attends Club or Organization Meetings: Patient declined Marital Status: Intimate Partner Violence: Unknown (02/20/2025) Humiliation, Afraid, Rape, and Kick questionnaire Fear of Current or Ex-Partner: No Emotionally Abused: Not on file Physically Abused: Not on file Sexually Abused: Not on file Housing Stability: Low Risk (02/20/2025) Housing Stability Vital Sign Unable to Pay for Housing in the Last Year: No Number of Times Moved in the Last Year: Not on file Homeless in the Last Year: No Family History Family History[3] Allergies Allergies[4] Medications Prescriptions Prior to Admission[5] Review of Systems Respiratory: Negative for chest tightness and shortness of breath. Cardiovascular: Positive for chest pain. Negative for palpitations. Last Recorded Vitals Visit Vitals BP 124/79 (BP Location: Right arm, Patient Position: Lying) Pulse 82 Temp 36.6 ???C (97.9 ???F) (Temporal) Resp 10 SpO2 99% Smoking Status Never Physical Exam Cardiovascular: Rate and Rhythm: Normal rate and regular rhythm. Heart sounds: Murmur heard. Pulmonary: Effort: Pulmonary effort is normal. Breath sounds: Normal breath sounds. Musculoskeletal: Right lower leg: No edema. Left lower leg: No edema. Neurological: General: No focal deficit present. Relevant Lab Results Lab Results Component Value Date NA 134 (L) 02/20/2025 K 4.4 02/20/2025 CL 103 02/20/2025 CO2 24 02/20/2025 BUN 20 02/20/2025 CREATININE 0.69 (L) 02/20/2025 GLUCOSE 114 (H) 02/20/2025 CALCIUM 8.8 02/20/2025 ANIONGAP 11 02/20/2025 EGFR 94.1 02/20/2025 BCR 29.0 02/20/2025 Relevant Imaging Results ECG 12 lead Normal sinus rhythm Moderate voltage criteria for LVH, may be normal variant ( R in aVL , Obed product ) Inferior infarct (more content not included)...NormalUnParkwood HospitalHematocrit Auto (Bld) [Volume fraction]Ordered By: Chanelle Saez on 35-62-2018Hagofirlxs (Bld) [Volume fraction]33.5 %Low42.0-54.0[facility] HospitalHemoglobin [Mass/volume] in BloodOrdered By: Chanelle Saez on 39-85-9337Irjeuuyakx (Bld) [Mass/Vol]12.2 g/dLLow14.0-18.0[facility] HospitalINR in Platelet poor plasma by Coagulation assayOrdered By: Chanelle Saez on 62-80-1186FYI Coag (PPP) [Relative time]0.97 {INR}[facility] HospitalComment on above:DESIRED INR:2.0-3.0 CONDITIONS NOT LISTED BELOW2.5-3.5 FOR PROSTHETIC HEART VALVE REPLACEMENT2.5-3.5 RECURRENT THROMBOSIS Laboratory - Chemistry and Chemistry - challengeOrdered By: Chanelle Saez on 86-69-7186Jtpdfxgce Ql (U)NegativeNEGATIVELicking Memorial Hospital Glucose (U) [Mass/Vol]NegativeNEGATIVELicking Memorial HospitalKetones Ql (U)NegativeNEGATIVELicking Memorial HospitalpH (U)6.5 [pH]5.0-9.0 [facility]zer [facility] Systempecific gravity (U) [Rel density]1.020 1.005-1.025L[facility] HospitalUrobilinogen Qn (U)0.2 {Nessa'U}/dL0.2-1.0[facility] HospitalAlbumin [Mass/Vol]3.8 g/dL 3.4-5.0[facility] HospitalALP [Catalytic activity/Vol]80 U/L46-116 [facility] HospitalALT [Catalytic activity/Vol]35 U/L16-63 [facility] HospitalAST [Catalytic activity/Vol]22 U/L15-37 [facility] HospitalBilirubin [Mass/Vol]0.6 mg/dL0.2-1.0[facility] HospitalCalcium [Mass/Vol]9.0 mg/dL8.5-10.1FUniversity Hospitals Samaritan Medical CenterChloride [Moles/Vol]101 mmol/Q82-273TpzxboezgLicking Memorial HospitalCO2 [Moles/Vol]25.1 mmol/L21.0-32.0[facility] Creatinine [Mass/Vol]0.72 mg/dL0.70-1.30[facility] GFR/1.73 sq M.predicted MDRD (S/P/Bld) [Vol rate/Area]mL/min/{1.73_m2}>=60 mL/min/1.73m 2FUniversity Hospitals Samaritan Medical CenterGlucose [Mass/Vol]174 mg/dLHigh 74-106[facility] HospitalPotassium [Moles/Vol]4.6 mmol/L3.5-5.1 [facility] HospitalProtein [Mass/Vol]7.2 g/dL6.4-8.2FHocking Valley Community Hospitalodium [Moles/Vol]136 mmol/Z857-749JtvqyxyhtLicking Memorial HospitalUrea nitrogen [Mass/Vol]21.0 mg/dLHigh7.0-18.0[facility] HospitalUrea nitrogen/Creatinine [Mass ratio]29.2 mg/mgLicking Memorial HospitalLaboratory - Hematology and Cell countsOrdered By: Chanelle Saez on 77-44-6951Gwjuslzg granulocytes/100 WBC (Bld)0.3 %0.0-0.5FUniversity Hospitals Samaritan Medical CenterLaboratory - Specimen informationOrdered By: Chanelle Saez on 99-11-9949Yemgklgtdm (U)CLEARCLEARFUniversity Hospitals Samaritan Medical CenterColor (U)LT. YELLOWYELLOWLicking Memorial HospitalLaboratory - UrinalysisOrdered By: Chanelle Saez on 72-20-4496Vuuhbdciw esterase Test strip Ql (U)NegativeNEGATIVE [facility] HospitalNitrite Ql (U)NegativeNEGATIVELicking Memorial HospitalProtein Ql (U)NegativeNEG/TRACELicking Memorial HospitalLeukocytes [#/volume] corrected for nucleated erythrocytes in Blood by Automated counOrdered By: Chanelle Saez on 90-16-4949WLC corrected for nucl RBC Auto (Bld) [#/Vol]6.2 10 3/uL4.0-11.0[facility] Lymphocytes Auto (Bld) [#/Vol]Ordered By: Chanelle Saez on 77-42-5543Hycejkqmwxa (Bld) [#/Vol]1.2 10 3/uL1.2-3.8[facility] HospitalLymphocytes/100 WBC Auto (Bld)Ordered By: Chanelle Diab on 33-61-0540Ruyknakddab/100 WBC (Bld)19.0 %Low20.5-60.0[facility] HospitalMAGNESIUMon 80-86-0979Cnlasroih [Mass/Vol]1.7 mg/dLLow1.9-2.7The [facility] Toledo Medical CenterComment on above:Performed By: #### [id number] #### [facility] ([facility]) [address], [place] [address]PHS Auto (RBC) [Entitic mass]Ordered By: Chanelle Saez on 12-87-9457WMN (RBC) [Entitic mass]33.6 pg25.9-34.0[facility] HospitalMCHC Auto (RBC) [Mass/Vol]Ordered By: Chanelle Diab on 62-74-1439CHDT (RBC) [Mass/Vol]36.4 g/vUOlnd35.9-35.2FUniversity Hospitals Samaritan Medical CenterMCV Auto (RBC) [Entitic vol]Ordered By: Chanelle Diab on 33-93-5559FWN (RBC) [Entitic vol]92.3 fL 80.0-94.0[facility] HospitalMonocytes Auto (Bld) [#/Vol]Ordered By: Chanelle Diab on 37-11-8855Glgczhjkx (Bld) [#/Vol]0.4 10 3/uL0.3-0.8[facility] HospitalMonocytes/100 WBC Auto (Bld)Ordered By: Chanelle Diab on 68-25-0540Lxvvqkxyf/100 WBC (Bld)5.7 %1.7-12.0[facility] Neutrophils Auto (Bld) [#/Vol]Ordered By: Chanelle Diab on 90-38-8431Bqkzmvccpbi (Bld) [#/Vol]4.2 10 3/uL1.4-6.5FUniversity Hospitals Samaritan Medical CenterNeutrophils/100 WBC Auto (Bld)Ordered By: Chanelle Saez on 67-57-9787Stoejpflvzi/100 WBC (Bld)68.9 %43.0-75.0[facility] HospitalNo Panel InformationOrdered By: Chanelle Saez on 50-02-0022Vaprivwb I High Hdshtpvbwpu92.6 pg/mL4.0-76.1FUniversity Hospitals Samaritan Medical CenterComment on above:CUT-OFF POINTS HAVE BEEN ESTABLISHED BASED ON THE FOURTHUNIVERSAL DEFINITION OF MYOCARDIAL INFARCTION. THE UPPERREFERENCE LIMIT (URL) OF TROPONIN, DEFINED THE 99THPERCENTILE OF cTnI DISTRIBUTION IN A REFERENCE POPULATION,HAS BEEN CONFIRMED THE DECISION THRESHOLD FOR MIDIAGNOSIS.99TH PERCENTILE = 76.2 PG/MLNOTE: HIGH-SENSITIVITY TROPONIN ASSAY IS NOT INTENDED TO BEUSED IN ISOLATION BUT SHOULD BE INTERPRETED IN CONJUNCTIONWITH OTHER DIAGNOSTIC AND CLINICAL INFORMATION.Urine Microscopic ReviewNOLicking Memorial HospitalUrine Occult BloodNegativeNEGATIVE [facility] HospitalEosinophils # (Auto)0.3 10 3/uL0.0-0.7FUniversity Hospitals Samaritan Medical CenterImmature Granulocyte # (Auto)0.02 10 3/uL0.00-0.03 [facility] HospitalPOCT GLUCOSE METER UNSOLICITED RESULTSon 03-31-5915Bvwmgcy [Mass/Vol]158 mg/fUZifk02-977OcelawqsgfParkwood HospitalComment on above:Order Comment: Waived Testing in the ED is performed under the ED CLIA certificate #[id number].Result Comment: gobyvko5Ylfuakqci By: #### [id number] #### [facility] ([facility] [address], [place] [address]Yiiajca [Mass/Vol]102 mg/xITfjadj85-553HaorxoffbwParkwood HospitalComment on above:Order Comment: Waived Testing in the ED is performed under the ED CLIA certificate #[id number].Result Comment: [email or web address] Performed By: #### [id number] ####[facility] ([facility])[address] [place], [place] [address]Mnskehyt mean volume Auto (Bld) [Entitic vol]Ordered By: Chanelle Daquan on 77-18-9006Nkbcccpu mean volume (Bld) [Entitic vol]8.6 fLLow 9.5-13.5FUniversity Hospitals Samaritan Medical CenterPlatelets Auto (Bld) [#/Vol]Ordered By: Chanelle Daquan on 78-67-6288Fnhrdekrd (Bld) [#/Vol]135 10 3/nDUsq602-120RinurtpiiLicking Memorial HospitalProthrombin time (PT)Ordered By: Chanelle Daquan on 66-55-3623EW Coag (PPP) [Time]10.3 s9.0-11.6FUniversity Hospitals Samaritan Medical CenterRBC Auto (Bld) [#/Vol]Ordered By: Chanelle Daquan on 18-83-9937PBS (Bld) [#/Vol]3.63 10 6/uLLow4.70-6.10Holzer Health Systemerum or plasma albumin/globulin mass ratioOrdered By: Chanelle Daquan on 24-73-7010Xeshaco/Globulin [Mass ratio]1.1 {ratio}Holzer Health Systemerum or plasma anion gap determinationOrdered By: Chanelle Daquan on 97-45-9740Sjnwa gap [Moles/Vol]14.5 mmol/LFUniversity Hospitals Samaritan Medical CenterALL CBC WITH AUTO DIFFon 01-31-2025 BASOPHILS ABSOLUTE AUTO0.1NOMS HealthcareBasophils/100 WBC (Bld)0.8 %0.2 - 2.0 % NOMS HealthcareEosinophils/100 WBC (Bld)6 %0.9 - 7.0 %NOMS HealthcareErythrocyte distribution width (RBC) [Ratio]13.3 %11.0 - 15.0 %NOMS HealthcareHematocrit (Bld) [Volume fraction]35.2 %Low42.0 - 54.0 %NOMS HealthcareHemoglobin (Bld) [Mass/Vol]12.2 g/dLLow14.0 - 18.0 g/dLNOMS HealthcareIMMATURE GRANULOCYTES ABS AUTO0.03NOMS HealthcareImmature granulocytes/100 WBC (Bld)0.5 %0.0 - 0.5 %NOMS HealthcareInterpretation and review of laboratory resultsAbnormalNOMS Healthcare LYMPHOCYTES ABSOLUTE AUTO1.2NOMS [facility] Pike Medical CenterLymphocytes/100 WBC (Bld)18.6 %Low 20.5 - 60.0 %Christian HospitalH (RBC) [Entitic mass]32.8 pg25.9 - 34.0 pgChristian HospitalHC (RBC) [Mass/Vol]34.7 g/dL29.9 - 35.2 g/dLChristian HospitalV (RBC) [Entitic vol]94.6 pPQfwq04.0 - 94.0 fLSaint Luke's East HospitalMONOCYTES ABSOLUTE AUTO0.4 [facility] HospitalMonocytes/100 WBC (Bld)6.8 %1.7 - 12.0 %[facility] NEUTROPHILS ABSOLUTE AUTO4.4[facility] HospitalNeutrophils/100 WBC (Bld)67.3 %43.0 - 75.0 %[facility] HospitalPlatelet mean volume (Bld) [Entitic vol]8.5 fLLow9.5 - 13.5 fLSaint Luke's East HospitalTBH EO #0.4NOFreeman Heart Institute HAM402KepUYVTFreeman Heart Institute RBC 3.72LowNOFreeman Heart Institute WBC6.5NOMid Missouri Mental Health CenterCLINISYNCNOMS HealthcareCA ECHO DOPPLER COMPLETEon 79-94-4209WcvOxford, [place] [address] Cardiology Report Signed Patient: ZACH CHAMORRO MR#: [id number] : 1945 Acct:[id number] Age/Sex: 79 / M ADM Date: 01/30/25 Loc: CARD Attending Dr: CASSANDRA BOUCHER Ordering Physician: CASSANDRA BOUCHER Date of Service: 01/30/25 Procedure(s): CA echo doppler complete Accession Number(s): [id number] cc: CASSANDRA BOUCHER; Blake Ng M.D. Patient Name: ZACH CHAMORRO MR#: [id number] : 1945 Exam Date: 01/30/2025 Ordering Doctor: DR CASSANDRA BOUCHER M.D. ECHOCARDIOGRAM REPORT PROCEDURE: CA ECHO DOPPLER [...] Peak Gradient(Antegrade Flow): 38.27 (more content not included)...TBHRadiology, Radiologist, MD - 01/30/2025 [place] [address] Cardiology Report Signed Patient: ZACH CHAMORRO MR#: [id number] : 1945 Acct:[id number] Age/Sex: 79 / M ADM Date: 01/30/25 Loc: CARD Attending Dr: CASSANDRA BOUCHER Ordering Physician: CASSANDRA BOUCHER Date of Service: 01/30/25 Procedure(s): CA echo doppler complete Accession Number(s): [id number] cc: CASSANDRA BOUCHER; Blake Ng M.D. Patient Name: ZACH CHAMORRO MR#: [id number] : 1945 Exam Date: 01/30/2025 Ordering Doctor: DR CASSANDRA BOUCHER M.D. ECHOCARDIOGRAM REPORT PROCEDURE: CA ECHO DOPPLER [...] Signed By: 01/30/25 1341 DD/ 1340 TD/TT: Capping Machine Operator: KAYLA HealthcareRadiology Study observation (narrative)KAYLA ZapienCA ECHO DOPPLER COMPLETEOrdered By: Radiologist Radiology on 02-89-6293DELN [facility] Work Phone: Office Visiton 94-85-6168Ildupb-up [id number] Zach Chamorro 1945 Date Provider Department Center 01/19/2025 CASSANDRA RAYO [facility] Family History Problem Relation Age of Onset Stroke Mother Family Status - Relation Status Age at Mother Father Level of Service:05918 MD OFFICE/OUTPATIENT [facility] 60 MINUTESNoal [facility] Medical CenterOrders Onlyon 82-97-2069Bqgjze [id number] Zach Chamorro 1945 M Date Provider Department Center 01/14/2025 [id number], HISTORICAL [facility] No family history on fileNormalUniOhioHealth O'Bleness HospitalNM CARMEN PERF SPECT REST STRon 43-90-4594AgnOxford, [place] [address] Nuclear Medicine Report Signed Patient: ZACH CHAMORRO MR#: [id number] : 1945 Acct:[id number] Age/Sex: 79 / M ADM Date: 01/09/25 Loc: NM Attending Dr: Blake Ng M.D. Ordering Physician: Blake Ng M.D. Date of Service: 01/09/25 Procedure(s): NM carmen perf SPECT rest str Accession Number(s): [id number] cc: Blake Ng M.D. Patient Name: ZACH CHAMORRO MR#: [id number] : 1945 Exam Date: 01/09/2025 Ordering Doctor: [...] the study was pending per attending physician [facility] . For more details please see separate [...] Signed By: 01/12/25 1234 DD/ 1233 TD/TT: Capping Machine Operator:SHAVONHRadiology, Radiologist, - 01/12/2025 [place] [address] Nuclear Medicine Report Signed Patient: ZACH CHAMORRO MR#: [id number] : 1945 Acct:[id number] Age/Sex: 79 / M ADM Date: 01/09/25 Loc: [place] Attending Dr: Blake Ng M.D. Ordering Physician: Blake Ng M.D. Date of Service: 01/09/25 Procedure(s): NM carmen perf SPECT rest str Accession Number(s): [id number] cc: Blake Ng M.D. Patient Name: ZACH CHAMORRO MR#: [id number] : 1945 Exam Date: 01/09/2025 Ordering Doctor: [...] the study was pending per attending physician [facility] . For more details please see separate [...] Signed By: 01/12/25 1234 DD/ 1233 TD/TT: Capping Machine Operator: [facility] HospitalRadiology Study observation (narrative)[facility] CARMEN PERF SPECT REST STROrdered By: Radiologist Radiology on 82-37-9985RQDX [facility] Work Phone: Urine Cytology ( Labs)on 63-91-2398Skdyg Cytology Diagnosis InfoInvalid Interpretation [facility] Medical CenterComment on above:Result Comment: A:Urine,Urine:Voided Interpretation - Adequate cellularity for evaluation. CPT 29720 MicroScopic Description - Adequacy - Gross Description Site ID:A color Yellow fixative Alcohol Specimen designated Urine received in alcohol preservative and labeled with the patient???s name, consists of 80ml clear yellow fluid. Electronically signed by : on: 01/06/2025 08:34:52Performed By: #### [id number] #### [facility] [address] [place], [place] [address]BXL 12-LEADon 92-93-48[address] [address] Electrocardiograph Report Signed Patient: ZACH CHAMORRO MR#: [id number] : 1945 Acct:[id number] Age/Sex: 79 / M ADM Date: 12/30/24 Loc: CT Attending Dr: Jermaine Jensen M.D. Ordering Physician: Jermaine Jensen M.D. Date of Service: 12/30/24 Procedure(s): ECG 12 lead Accession Number(s): [id number] cc: [facility] Test Date: 2024-12-30 Pat Name: ZACH CHAMORRO Department: Room: - Gender: Male Hemodialysis Charge Nurse: : 1945 Requested By: JERMAINE JENSEN Order Number: [id number] Reading MD: CASSANDRA BOUCHER M.D. Measurements Intervals Downey Rate: 78 P: 26 MD: 188 QRS: -24 QRSD: 87 T: 91 QT: 359 QTc: 411 Interpretive Statements SINUS RHYTHM BORDERLINE LEFT AXIS DEVIATION [QRS AXIS < -20] NONSPECIFIC T-WAVE ABNORMALITY Compared to ECG 08/29/2017 10:21:07 T-wave abnormality now present Myocardial infarct finding no longer present Electronically Signed On 12-31-2024 7:01:15 EDT by CASSANDRA BOUCHER M.D. Dictated By: CASSANDRA BOUCHER Signed By: 12/31/24 0701 DD/ 0841 TD/TT: Capping Machine Operator:TBHRadiology, Radiologist, - 12/31/2024 [place] [address] Electrocardiograph Report Signed Patient: ZACH CHAMORRO MR#: [id number] : 1945 Acct:[id number] Age/Sex: 79 / M ADM Date: 12/30/24 Loc: CT Attending Dr: Jermaine Jensen M.D. Ordering Physician: Jermaine Jensen M.D. 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 Measurements Intervals Downey Rate: 78 P: 26 MD: 188 QRS: -24 QRSD: 87 T: 91 QT: 359 QTc: 411 Interpretive Statements SINUS RHYTHM BORDERLINE LEFT AXIS DEVIATION [QRS AXIS < -20] NONSPECIFIC T-WAVE ABNORMALITY Compared to ECG 08/29/2017 10:21:07 T-wave abnormality now present Myocardial infarct finding no longer present Electronically Signed On 12-31-2024 7:01:15 EDT by CASSANDRA BOUCHER M.D. Dictated By: CASSANDRA BOUCHER Signed By: 12/31/24700 DD/ 0 TD/TT: Capping Machine Operator: KAYLA ZapienECG 12-LEADOrdered By: Radiologist Radiology on 22-66-9458OJQU [facility] Work Phone: aLL BASIC METABOLIC PANELon 11-39-1904Ddnff gap [Moles/Vol]12 mmol/LNOMS HealthcareCalcium [Mass/Vol]9.6 mg/dL8.5 - 10.1 mg/dL NOM HealthcareChloride [Moles/Vol]102 mmol/L98 - 107 mmol/LNOMS HealthcareCO2 [Moles/Vol]30.3 mmol/L21.0 - 32.0 mmol/LNOMS HealthcareCreatinine [Mass/Vol]0.73 mg/dL0.70 - 1.30 mg/dLNONJ HealthcareGFR/1.73 sq M.predicted CKD-EPI (S/P/Bld) [Vol rate/Area]>60>=60 mL/min/1.73m 2NOMS HealthcareGlucose [Mass/Vol]168 mg/dL High74 - 106 mg/dLNONJ HealthcareInterpretation and review of laboratory results AbnormalNONJ HealthcarePotassium [Moles/Vol]5.3 mmol/LHigh3.5 - 5.1 mmol/LNOMS HealthcareSodium [Moles/Vol]139 mmol/L136 - 145 mmol/LNOMS HealthcareTBH EGFR- NON AF BERMUDIAN>60>=60 mL/min/1.73m 2NOMS HealthcareUrea nitrogen [Mass/Vol]20 mg/dLHigh7.0 - 18.0 mg/dLNONJ HealthcareUrea nitrogen/Creatinine [Mass ratio] 27.4 mg/mgNONJ HealthcareCLINISYNCNOMS HealthcareCT ABDOMEN/PELVIS WO CONTon 85-13-1988Z[address] [address] [address] Scan Report Signed Patient: ZACH CHAMORRO MR#: [id number] : 1945 Acct:[id number] Age/Sex: 79 / M ADM Date: 12/30/24 Loc: CT Attending Dr: Jermaine Jensen M.D. Ordering Physician: Jermaine Jensen M.D. Date of Service: 12/30/24 Procedure(s): CT abdomen pelvis wo con Accession Number(s): [id number] cc: Blake Ng M.D. [address] [address] Patient Name: ZACH CHAMORRO MRN: [id number] date: 1945 Sex: M Assigned Patient Location: CT Current Patient Location: [facility] Accession/Order Number: [id number] Exam Date: 12/30/2024 11:04 Report Date: 12/30/2024 [...] Jr., D.O. 12/30/2024 11:06 AM Dictation Location: [place] [address] Electronically authenticated by: [id number] Y Date: 12/30/2024 11:06 Dictated By: Ritchie Cabrera M.D. Signed By: 12/30/24 1108 DD/ 110 TD/TT: Capping Machine Operator:SHAVONHRadiologreji, Radiologist, - 12/30/2024 [place] [address] CT Scan Report Signed Patient: ZACH CHAMORRO MR#: [id number] : 1945 Acct:[id number] Age/Sex: 79 / M ADM Date: 12/30/24 Loc: CT Attending Dr: Jermaine Jensen M.D. Ordering Physician: Jermaine Jensen M.D. Date of Service: 12/30/24 Procedure(s): CT abdomen pelvis wo con Accession Number(s): [id number] cc: Blake Ng M.D. [facility] [place] [id number] Patient Name: ZACH CHAMORRO MRN: [id number] date: 1945 Sex: M Assigned Patient Location: CT Current Patient Location: [facility] Accession/Order Number: [id number] Exam Date: 12/30/2024 11:04 Report Date: 12/30/2024 [...] uropathy. Impression dictated by: Ritchie Cabrera Jr., D.Emily 12/30/2024 11:06 AM Dictation Location: [place] [address] Electronically authenticated by: [id number] Y Date: 12/30/2024 11:06 Dictated By: Ritchie Cabrera M.D. Signed By: 12/30/24 1108 DD/ 1106 TD/TT: Capping Machine Operator: [facility] HospitalRadiology Study observation (narrative)[facility] HospitalCT ABDOMEN/PELVIS WO CONTOrdered By: Radiologist Radiology on 52-25-5500VJZO Healthcare Work Phone: ecg 12-LEADon 41-32-3915Bkfrtccuu Study observation (narrative)[facility] HealthcareAmbulatory Visit Summaryon 61-31-9732Ulnnhadzou Visit SummaryAmbulatory Visit Summary ZACH CHAMORRO :1945 Visit Date:12/29/2024 [...] [facility] [address] , [place] [address]- Medications What How Much When Instructions New dutasteride (dutasteride 0.5 mg Cap) 1 Capsules By Mouth Every day Duration: 90 Days Refills: 3Pickup at [facility] Unchanged tadalafil (Cialis [...] Pharmacy Information [facility]: [address] [place] [address] [phone] Allergies No Known Allergies Problems Ongoing - [...] Please share your experien (more content not included)...[facility] HospitalUrine Cytology (P4 Labs)on 25-66-0987VO Method of ExtractionVoided [facility] HospitalComment on above:Performed By: #### [id number] #### [facility] [address] [place], [place] [address]KS Number of Oano4Ubskkve Interpretation CodeFisher Louis Medical CenterComment on above:Performed By: #### [id number] #### [facility] [address] [place], [place] [address]QD SpecimenUrineSt. John of God HospitalComment on above:Performed By: #### [id number] #### [facility] [address], [place] [address]PZ Type of ServiceTechnical OnlySt. John of God HospitalComment on above:Performed By: #### [id number] #### [facility] [address] [place], [place] [address]Svrvsuo Office/Clinic Noteon 18-17-1555Iosmhbd Office/Clinic NoteUrology Office/Clinic Note Chief Complaint pt here for follow up with PSA and KUB HPI Staff 79 yr old male here for 6 mth f/u w/ PSA Previous Dx: prostate ca, kidney stone, BPH with urinary obstruction. *Tamsulosin 0.4 mg qd PSA: 04/30/24 - 0.4 10/28/24 - 0.27 Pt reports that on Sunday he was mowing his lawn on a riding paper winder and when he went to urinate he [...] 0.27 MRI fusion prostate bx 06/2022 - [place] 7 (3+4) 3 cores, 12-25% involvement. Intermediate [...] These include blood in the urine, infection, bleedingaround the kidney, kidney bruising, inability to break up the stone, need for blood transfusion, blockage from stone fragments, and need for additional procedures, among others. Full informed consenthas been obtained. Will order General anesthesia. 3. BPH with urinary obstruction (N40.1: Benign prostatic hyperplasia with lower urinary tract symptoms) Hasn't taken Flomax 0.4 mg qd. reports last visit with oncology, pt was told to d/c Flomax d/tdizziness. He has dizziness when he wakes in the morning. Reports baseline poor balance for a long time. No improvement in dizziness since stopping Flomax and does not feel urination has changed without med. Feels he has a good stream and that he empties completely. Nocturia 1-2x/night. Recommendedstarting 5-YO instead of alpha sophia to gradually [...] proper use, contraindications, priapism discussed. Sent to [facility]. 5. Gross hematuria (R31.0: Gross hematuria) UA neg. Pt had an isolated episode of painless gross hematuria over the weekend after riding paper winder. Pt thought he might have passed a kidney stone. Has been complaining of intermittent pain outside of hematuria episode. Possible mild L flank pain on exam today. Pain is mild 1-2/10, constant, dull pain. Pain across his back over his waist. Ill-defined. Currently not having pain. Last had painthis morning. Taking tylenol for pain. Also had pain when he woke last night to void. (more contentnot included)...[facility] HospitalComment on above:Result Comment: Electronically Signed By: Jermaine JENSEN MD\.br\Date and Time Signed: 12/29/24 09:27 EDT\.br\Electronically Co-Signed By: Felecia Sharma.br\Date and Time Co-Signed: 12/29/24 09:23 EDTX-ray reportOrdered By: Aiden Franklin on 85-82-5107Cpnli reportSELECT [facility]ICAL [facility] Main [place] [address] [place] [id number] XRay Report Signed Patient: Zach Chamorro MR#: [id number] : 1945 Acct:[id number] Age/Sex: 79 / M ADM Date: 5 [...] Franklin M.D. 12/24/2024 8:43 PM Dictation Location: [place] [address] Transcribed By: [facility] 12/24/242042 Dictated By: Aiden Franklin II, MD 12/24/242041 Signed By: 12/24/242042 [facility] Work Phone: [phone] [facility] [phone] [facility] Main [address] [address] XRay Report Signed Patient: Zach Chamorro MR#: [id number] : 1945 Acct:[id number] Age/Sex: 79 / M ADM Date: 12/24/24 [...] Franklin M.D. 12/24/2024 8:43 PM Dictation Location: [place] [address] Transcribed By: [facility] 12/24/242042 Dictated By: Aiden Franklin II, MD 12/24/242041 Signed By: 12/24/242042NoFormerly [facility] Physician GroupPSA Total (Not a Screen)on 84-47-1474EXH Total (Not a Screen)0.270 ng/mLNormal0.000-4.000The [facility] Physician GroupComment on above:Result Comment: Serial tumor marker results determined by assays using different manufacturers or methods may not be comparable. [facility] pipe line maintenance supervisor and method: TONA UNICEL DXI, CHEMILUMINESCENT IMMUNOASSAY. PERFORMED BY: [place] [id number] PATHOLOGIST [employer]OOKING [employer]ING AND DRYING SUPERVISOR DELFINO MEJÍA M.D.Performed By: #### BMP, HEPATIC, A1C WTH eA, CBC, LIPID #### [facility] [address] [place] [address] USAXR Elbow - left 3 Viewson 08-61-7701Evojyxv Result: Four views of the left elbow, AP/lateral/oblique/radiocapitellar, taken today and saved to the permanent medical record. No acute osseous abnormalities, no fat pad sign. Joint spaces are preserved. Tiny osteophyte at the tip of the olecranon.[facility] HealthcareRadiology Study observation (narrative)[facility] HealthcareHemoglobin a1c with eagon 08-07-2024 Glucose [Mass/Vol]166 mg/dLRIVERTON HOSPITAL IrcqlxqmvxFeG2q (Bld) [Mass fraction]7.4 %High 4.3 - 5.6 %[facility] HealthcareComment on above:Increased risk for diabetes: 5.7 - 6.4 diabetes: >6.4 glycemic control for adults with diabetes: <7.0 Interpretation and review of laboratory resultsAbnormalSaint Mary's Health Center TdxktsvlbgS4I with Estimated Average Gluon 29-07-5993Nbhrrec [Mass/Vol]166 mg/dL NormalThe St. [facility] Hospital Physician GroupComment on above:Result Comment: PERFORMED BY: [place] [address] PATHOLOGIST [employer]OOK[employer]ING [employer] DRYING SUPERVISOR DELFINO MEJÍA M.D.Performed By: #### A1C WTH eA, MG, BMP #### [facility] [address] [place] [address] BYTEpK3h (Bld) [Mass fraction]7.4 %High4.3-5.6The [facility] Physician GroupComment on above:Result Comment: Increased risk for diabetes: 5.7 - 6.4 diabetes: >6.4 glycemic control for adults with diabetes: <7.0Performed By: #### A1C WTH eA, MG, BMP #### [facility] [address] [place] [address] USABasic Metabolic Panelon 83-61-8255Pgzhi gap [Moles/Vol] 12.5 mmol/LNormal6.0-15.0The [facility] Physician GroupComment on above:Performed By: #### A1C WTH eA, MG, BMP #### [facility] [address] [place] [id number] USACalcium [Mass/Vol]9.5 mg/dLNormal8.6-10.3The [facility] Hospital Physician GroupComment on above:Performed By: #### A1C WTH eA, MG, BMP #### [facility] [address] [place] [id number] USAChloride [Moles/Vol]100 mmol/SWsujin37-378Hme St[facility] Physician GroupComment on above:Performed By: #### A1C WTH eA, MG, BMP #### [facility] [address] [place] [address] USACO2 [Moles/Vol]28.2 mmol/GKegqbe39.0-31.0The [facility] Physician GroupComment on above:Performed By: #### A1C WTH eA, MG, BMP #### [facility] [address] [place] [address] USACreatinine [Mass/Vol]0.77 mg/dLNormal0.70-1.30The [facility] Physician GroupComment on above:Performed By: #### A1C WTH eA, MG, BMP #### [facility] [address] [place] [address] USAGFR/1.73 sq M.predicted MDRD (S/P/Bld) [Vol rate/Area] mL/min/{1.73_m2}NormalThe St. [facility] Hospital Physician GroupComment on above:Performed By: #### A1C WTH eA, MG, BMP #### [place] [address] USAGlucose [Mass/Vol]189 mg/pRRbjw00-244Vgu [facility] Physician GroupComment on above:Result Comment: Random Glucose Reference Range is dependent on time and content of last meal. Glucose of more than 200 mg/dL in a nonstressed, ambulatory subject supports the diagnosis of Diabetes Mellitus. ADA recommended reference rangePerformed By: #### A1C WTH eA, MG, BMP #### [facility] [address] [place] [address] USAPotassium [Moles/Vol]4.7 mmol/LNormal3.5-5.1The [facility] Physician GroupComment on above:Performed By: #### A1C WTH eA, MG, BMP #### [facility] [address] [place] [address] USASodium [Moles/Vol]136 mmol/NLmdmiy616-330Dhb [facility] Physician GroupComment on above:Performed By: #### A1C WTH eA, MG, BMP #### [facility] [address] [place] [address] USAUrea nitrogen [Mass/Vol]16 mg/dLNormal7-25The [facility] Physician GroupComment on above:Performed By: #### A1C WT Arnold, MG, BMP #### [facility] [address] [place] [address] USABasic metabolic 1998 panelon 49-42-2087Lissa gap [Moles/Vol]12.5 mmol/L6.0 - 15.0 meq/LNOMS HealthcareCalcium [Mass/Vol]9.5 mg/dL 8.6 - 10.3 mg/dLNOMS HealthcareChloride [Moles/Vol]100 mmol/L98 - 107 mmol/LNOMS HealthcareCO2 [Moles/Vol]28.2 mmol/L21.0 - 31.0 mmol/LNOMS HealthcareCreatinine (U) [Mass/Vol]0.77 mg/dL0.70 - 1.30 mg/dLNOMS HealthcareESTIMATED GFRmL/MinNOMS HealthcareGlucose [Mass/Vol]189 mg/vWIqqh99 - 100 mg/dLNOMS HealthcareComment on above:Random Glucose Reference Range is dependent on time and content of last meal. Glucose of more than 200 mg/dL in a nonstressed, ambulatory subject supports the diagnosis of Diabetes Mellitus. ADA recommended reference range Potassium [Moles/Vol]4.7 mmol/L3.5 - 5.1 mmol/LNOMS HealthcareSodium [Moles/Vol] 136 mmol/L136 - 145 mmol/LNOMS HealthcareUrea nitrogen [Mass/Vol]16 mg/dL7 - 25 mg/dLNOMS HealthcareCalcium [Mass/volume] in Serum or PlasmaOrdered By: Blake Ng on 51-45-9213Aryefma [Mass/Vol]Calcium [Mass/volume] in Serum or Plasma 8.6-10.3FUniversity Hospitals Samaritan Medical CenterCarbon dioxide, total [Moles/volume] in Serum or PlasmaOrdered By: Blake Ng on 93-68-4047KJ7 [Moles/Vol]Carbon dioxide, total [Moles/volume] in Serum or Xsakym48.0-31.0[facility] HospitalChloride [Moles/volume] in Serum or PlasmaOrdered By: Blake Ng on 78-86-1660Pdorydbc [Moles/Vol]Chloride [Moles/volume] in Serum or Plasma 98-107[facility] HospitalCreatinine [Mass/volume] in Serum or PlasmaOrdered By: Blake Ng on 27-85-3600Smtrxqhuqh [Mass/Vol]Creatinine [Mass/volume] in Serum or Plasma0.70-1.30[facility] Creatinine [Mass/volume] in UrineOrdered By: Blake Ng on 08-06-2024 Creatinine (U) [Mass/Vol]Creatinine [Mass/volume] in UrineLicking Memorial HospitalComment on above:No reference range establishedGlucose [Mass/volume] in Serum or PlasmaOrdered By: Blake Ng on 99-96-5001Oszecmq [Mass/Vol]Glucose [Mass/volume] in Serum or IcgbnnIwhc51-596WotqrsubjLicking Memorial HospitalComment on above:ADA recommended reference rangeRandom Glucose Reference Range is dependent on time and content of last meal. Glucose of more than 200 mg/dL in a nonstressed, ambulatory subject supports the diagnosisof Diabetes Mellitus.Magnesiumon 61-78-7760Ryadfusjj [Mass/Vol]1.5 mg/dLLow1.9 - 2.7 mg/dLNOMS HealthcareMagnesium [Mass/Vol]1.5 mg/dLLow1.9-2.7The [facility] Physician GroupComment on above:Result Comment: PERFORMED BY: [place] [address] PATHOLOGIST COOK[employer]YING SUPERVISOR DELFINO MEJÍA M.D.Performed By: #### A1C [facility] eA, MG, BMP #### [facility] [address] [place] [address] USAMagnesium [Mass/volume] in Serum or PlasmaOrdered By: Blake Ng on 34-59-0945Jqdkapbdy [Mass/Vol]Magnesium [Mass/volume] in Serum or PlasmaLow1.9-2.7FUniversity Hospitals Samaritan Medical CenterMicroAlb Creat Ratio,Uon 00-07-8804Pbshfrs DL <= 20 mg/L (U) [Mass/Vol]7.1 mg/dLHigh0.0-1.8The [facility] Physician GroupComment on above:Performed By: #### BMP, HEPATIC, A1C WTH eA, CBC, LIPID #### [facility] [address] [place] [address] USACreatinine, Urine (Random)81.00 mg/dLNormalThe St. [facility] Physician GroupComment on above:Result Comment: No reference range established Performed By: #### BMP, HEPATIC, A1C WTH eA, CBC, LIPID #### [facility] [address] [place] [address] USAMicroalbumin/Creatinine Ratio87.7 mg/gHigh0.0-30.0The [facility] Physician GroupComment on above:Result Comment: 30-300 mg/g indicates an increased risk for diabetic nephropathy. Greater than 300 mg/g is consistent with clinical nephropathy. (Am. J. Kidney Disease 1994, 25:107) PERFORMED BY: [facility] [address] [place] [address] PATHOLOGIST COOKING [employer]ING [employer]YING SUPERVISOR DELFINO MEJÍA M.D.Performed By: #### BMP, HEPATIC, A1C WTH eA, CBC, LIPID #### [facility] [address] [place] [address] USAMicroalbumin [Mass/volume] in UrineOrdered By: Blake Ng on 20-88-9758Wrcffsg DL <= 20 mg/L (U) [Mass/Vol]Microalbumin [Mass/volume] in UrineHigh0.0-1.8[facility] Microalbumin/Creatinine ratio panel (U)on 56-46-2549Gsnblhv [Mass/Vol]7.1 mg/dL High0.0 - 1.8 mg/dLRIVERTON HOSPITAL HealthcareCreatinine spec 2 (U) [Mass/Vol]81 mg/dLNONJ HealthcareComment on above:No reference range establishedInterpretation and review of laboratory resultsAbnormalRIVERTON HOSPITAL HealthcareMICROALBUMIN/CREATININE RATIO 87.7 mg/gHigh0.0 - 30.0 mg/gNOMS HealthcareComment on above:30-300 mg/g indicates an increased risk for diabetic nephropathy. Greater than 300 mg/g is consistent with clinical nephropathy. (Am. J. Kidney Disease 1994, 25:107) [facility] HospitalNo Panel Informationon 65-34-7876Wpspytpepmcoec and review of laboratory resultsAbnormalRutherford Regional Health SystemNo Panel Information Ordered By: Blake Ng on 82-77-9424Qlvsbnzmq GFR (CKD-EPI)> 60.0 mL/Min [facility] HospitalPharmacy Creatinine Clearance (ChemN/AFUniversity Hospitals Samaritan Medical CenterPotassium [Moles/volume] in Serum or PlasmaOrdered By: Blake Ng on 59-45-0688Rslkvjzux [Moles/Vol]Potassium [Moles/volume] in Serum or Plasma3.5-5.1FHocking Valley Community Hospitalerum or plasma anion gap determinationOrdered By: Blake Ng on 93-42-4085Fawzx gap [Moles/Vol]Serum or plasma anion gap determination6.0-15.0Hol[facility] Health Systemodium [Moles/volume] in Serum or PlasmaOrdered By: Blake Ng on 86-57-4604Xngpzd [Moles/Vol]Sodium [Moles/volume] in Serum or Iiqyms296-693BlffnnvheLicking Memorial HospitalUrea nitrogen [Mass/volume] in Serum or PlasmaOrdered By: Blake Ng on 78-11-9001Qbqc nitrogen [Mass/Vol]Urea nitrogen [Mass/volume] in Serum or Plasma7-25[facility] HospitalUrine microalbumin/creatinine mass ratioOrdered By: Blake Ng on 08-06-2024 Albumin/Creatinine DL <= 20 mg/L (U) [Mass ratio]Urine microalbumin/creatinine mass ratioHigh0.0-30.0[facility] HospitalComment on above:30-300 mg/g indicates an increased risk for diabetic nephropathy. Greater than 300 mg/g is consistent with clinical nephropathy. (Am. J. Kidney Disease 1995, 25:107)No Panel Informationon 02-14-9906OAIV HealthcareXR Foot - left 3 Viewson 05-15-2024 Imaging Result: 3 views left foot: Weight-bearing: DP, oblique, lateral: 05/15/2024: There are no distinct or interval changes from most recent views of 04/14/2024. Again unremarkable for acute osseous or joint pathology. Unremarkable for any acute fragmentation or medial column collapse. 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 Physician GroupComment on above:Result Comment: Serial tumor marker results determined by assays using different manufacturers or methods may not be comparable. [facility] pipe line maintenance supervisor and method: TONA UNICEL DXI, CHEMILUMINESCENT IMMUNOASSAY. PERFORMED BY: [place] [address] PATHOLOGIST COOKING CASING AND DRYING SUPERVISOR DELFINO MEJÍA M.D.Performed By: #### PSATOTAL #### [place] [address] USAXR Foot - left 3 Viewson 32-01-4426Gqvmlfu Result: 3 views left foot: Weight-bearing: DP, [...] changes. Mild loss of the medial column contour.[facility] HealthcareRadiology Study observation (narrative)[facility] MgirxdqfvmY4C with Estimated Average Gluon 10-25-4913Mgcycoz [Mass/Vol]140 mg/dLNoFormerly [facility] Hospital Physician GroupComment on above:Result Comment: PERFORMED BY: [place] [id number] PATHOLOGIST COOKING [employer]ING AND DRYING SUPERVISOR JUDY GARCIA M.D.Performed By: #### BMP, HEPATIC, A1C WTH eA, CBC, LIPID #### [facility] [address] [place] [id number] USAAlanine aminotransferase [Enzymatic activity/volume] in Serum or PlasmaOrdered By: Blake Ng on 29-09-8542SCI [Catalytic activity/Vol]20 U/LNormal7-52[facility] HospitalComment on above: Performed By: #### BMP, HEPATIC, A1C WTH eA, CBC, LIPID #### [facility] [address] [place] [address] USAAlbumin [Mass/volume] in Serum or Plasma by Bromocresol green (BCG) dye binding methoOrdered By: Blake Ng on 78-21-2133Qsofknk BCG dye [Mass/Vol]4.4 g/dL3.5-5.7FUniversity Hospitals Samaritan Medical CenterAlkaline phosphatase [Enzymatic activity/volume] in Serum or PlasmaOrdered By: Blake Ng on 81-43-5275ECR [Catalytic activity/Vol]70 U/LPtpkmu04-710DvwzkmlowLicking Memorial HospitalComment on above:Performed By: #### BMP, HEPATIC, A1C WTH eA, CBC, LIPID #### [place] [address] USAAspartate aminotransferase [Enzymatic activity/volume] in Serum or PlasmaOrdered By: Blake Ng on 66-58-8181XOO [Catalytic activity/Vol]19 U/KYouiaf65-01GhlmfbulfLicking Memorial HospitalComment on above: Performed By: #### BMP, HEPATIC, A1C WTH eA, CBC, LIPID #### [place] [address] USAAutomated basophil %Ordered By: Blake Ng on 01-25-2024 Basophils/100 WBC (Bld)0.5 %Normal.[facility] HospitalComment on above:Performed By: #### BMP, HEPATIC, A1C WTH eA, CBC, LIPID #### [place] [address] USAAutomated basophil countOrdered By: Blake Ng on 73-47-6391Hryhkatnt (Bld) [#/Vol]0.0 10*3/uLNormal0.0-0.2FUniversity Hospitals Samaritan Medical CenterComment on above:Result Comment: PERFORMED BY: [place] [address] PATHOLOGIST COOKING [employer]ING AND DRYING SUPERVISOR JUDY GARCIA M.D.Performed By: #### BMP, HEPATIC, A1C WTH eA, CBC, LIPID #### [place] [address] USAAutomated blood monocyte countOrdered By: Blake Ng on 20-60-6064Yfckazzfe (Bld) [#/Vol]0.3 10*3/uLNormal0.0-0.8[facility] HospitalComment on above:Performed By: #### BMP, HEPATIC, A1C WTH eA, CBC, LIPID #### [facility] [address] [place] [address] USAAutomated eosinophil %Ordered By: Blake Ng on 92-83-5580Ftiwxjuygpg/100 WBC (Bld)5.1 %Normal.[facility] Comment on above:Performed By: #### BMP, HEPATIC, A1C WTH eA, CBC, LIPID #### [facility] [address] [place] [address] USAAutomated eosinophil countOrdered By: Blake Ng on 24-71-8269Yingngjdqte (Bld) [#/Vol]0.3 10*3/uLNormal0.0-0.45[facility] HospitalComment on above:Performed By: #### BMP, HEPATIC, A1C WTH eA, CBC, LIPID #### [facility] [address] [place] [address] USAAutomated monocyte %Ordered By: Blake Ng on 01-25-2024 Monocytes/100 WBC (Bld)5.0 %Normal.[facility] HospitalComment on above:Performed By: #### BMP, HEPATIC, A1C WTH eA, CBC, LIPID #### [facility] [address] [place] [address] USAAutomated neutrophil %Ordered By: Blake Ng on 86-17-7450Pabyjamfoob/100 WBC (Bld)72.3 %Normal.[facility] HospitalComment on above:Performed By: #### BMP, HEPATIC, A1C WTH eA, CBC, LIPID #### [facility] [address] [place] [address] USABasic Metabolic Panelon 27-92-3077CGO/1.73 sq M.predicted MDRD (S/P/Bld) [Vol rate/Area]mL/min/{1.73_m2}NormalThe St. [facility] Physician GroupComment on above:Performed By: #### BMP, HEPATIC, A1C WTH eA, CBC, LIPID #### [facility] [address] [place] [address] USABilirubin.direct [Mass/volume] in Serum or PlasmaOrdered By: Blake Ng on 78-43-8866Cyjbrckwz.direct [Mass/Vol]0.10 mg/dL0.03-0.18 [facility] HospitalBilirubin.total [Mass/volume] in Serum or PlasmaOrdered By: Blake Ng on 66-32-8541Zlyaqzpbk [Mass/Vol]0.7 mg/dLNormal 0.3-1.0[facility] HospitalComment on above:Performed By: #### BMP, HEPATIC, A1C WTH eA, CBC, LIPID #### [facility] [address] [place] [address] USACalcium [Mass/volume] in Serum or PlasmaOrdered By: Blake Ng on 95-62-2959Onwxcyv [Mass/Vol]9.2 mg/dLNormal8.6-10.3FUniversity Hospitals Samaritan Medical CenterComment on above:Performed By: #### BMP, HEPATIC, A1C WTH eA, CBC, LIPID #### [facility] [address] [place] [address] USACarbon dioxide, total [Moles/volume] in Serum or Plasma Ordered By: Blake Ng on 40-82-7095LF0 [Moles/Vol]24.4 mmol/SOatasi73.0-31.0 [facility] HospitalComment on above:Performed By: #### BMP, HEPATIC, A1C WTH eA, CBC, LIPID #### [facility] [address] [place] [address] USAChloride [Moles/volume] in Serum or PlasmaOrdered By: Blake Ng on 46-46-6310Vaeyszkz [Moles/Vol]105 mmol/DYqjxqj98-274AwweuphbuLicking Memorial HospitalComment on above:Performed By: #### BMP, HEPATIC, A1C WTH eA, CBC, LIPID #### [facility] [address] [place] [address] USACholesterol [Mass/volume] in Serum or PlasmaOrdered By: Blake Ng on 75-74-8388Bziprbksgar [Mass/Vol]136 mg/cYXwt881-906DgtxunkbuLicking Memorial HospitalComment on above:Chol less than 200 mg/dl low riskChol 201-239 mg/dl borderline riskChol 240 mg/dl and greater high riskResult Comment: Chol less than 200 mg/dl low risk Chol 201-239 mg/dl borderline risk Chol 240 mg/dl and greater high riskPerformed By: #### BMP, HEPATIC, A1C WTH eA, CBC, LIPID #### [facility] [address] [place] [address] USACholesterol in LDL Calc [Mass/Vol]Ordered By: Blake Ng on 93-57-2515Fwrjhymhwzl in LDL [Mass/Vol]63 mg/dL0-100[facility] HospitalComment on above:LDL ATP III CLASSIFICATIONLDL less than 100 mg/dL OptimalLDL 100-129 mg/dL Near or above ssrckgoEQV886-704 mg/dL Borderline highLDL 160-189 mg/dL HighLDL greater than 189 mg/dL Very highCholesterol in VLDL Calc [Mass/Vol]Ordered By: Blake Ng on 45-11-9773Gmhmnbebgat in VLDL [Mass/Vol]40 mg/dLLicking Memorial HospitalComplete Blood Count Auto Diffon 87-81-5820Cpbp Corpuscular HGB Conc35.0 g/eSIdrvwl54.5-35.6The [facility] Physician GroupComment on above:Performed By: #### BMP, HEPATIC, A1C WTH eA, CBC, LIPID #### [facility] [address] [place] [address] USANRBC%0.1 /100{WBC}Normal0-0.5The [facility] Comment on above:Performed By: #### BMP, HEPATIC, A1C WTH eA, CBC, LIPID #### [facility] [address] [place] [address] USACreatinine [Mass/volume] in Serum or PlasmaOrdered By: Blake Ng on 63-69-4963Prsbnbprjy [Mass/Vol]1.02 mg/dLNormal0.70-1.30 [facility] HospitalComment on above:Performed By: #### BMP, HEPATIC, A1C WTH eA, CBC, LIPID #### [facility] [address] [place] [address] USAErythrocyte distribution width [Ratio] by Automated count Ordered By: Blake Ng on 31-76-9052Dzameqrtxcd distribution width (RBC) [Ratio]14.3 %Ltqekf87.0-14.8[facility] HospitalComment on above: Performed By: #### BMP, HEPATIC, A1C WTH eA, CBC, LIPID #### [facility] [address] [place] [id number] USAErythrocytes [#/volume] in Blood by Automated countOrdered By: Blake Ng on 47-95-8694HDR (Bld) [#/Vol]3.58 10*6/uLLow3.90-5.60 [facility] HospitalComment on above:Performed By: #### BMP, HEPATIC, A1C WTH eA, CBC, LIPID #### [facility] [address] [place] [id number] USAGlucose [Mass/volume] in Serum or PlasmaOrdered By: Blake Ng on 29-86-2349Nfhjbkj [Mass/Vol]126 mg/zRXoqq93-395PtuafrennLicking Memorial HospitalComment on above:ADA recommended reference rangeRandom Glucose Reference Range is dependent on time and content of last meal. Glucose of more than 200 mg/dL in a nonstressed, ambulatory subject supports the diagnosisof Diabetes Mellitus.Result Comment: Random Glucose Reference Range is dependent on time and content of last meal. Glucose of more than 200 mg/dL in a nonstressed, ambulatory subject supports the diagnosis of Diabetes Mellitus. ADA recommended reference rangePerformed By: #### BMP, HEPATIC, A1C WTH eA, CBC, LIPID #### [facility] [address] [place] [address] USAGlucose mean value [Mass/volume] in Blood Estimated from glycated hemoglobinOrdered By: Blake Ng on 47-17-4307Mjpkkvn glucose Estimated from glycated hemoglobin (Bld) [Mass/Vol]140 mg/dLLicking Memorial HospitalHematocrit [Volume Fraction] of Blood by Automated countOrdered By: Blake Ng on 01-11-2164Ujvbmfclid (Bld) [Volume fraction]34.0 %Low 38.8-50.0[facility] HospitalComment on above:Performed By: #### BMP, HEPATIC, A1C WTH eA, CBC, LIPID #### [facility] [address] [place] [address] USAHemoglobin A1c percentageOrdered By: Blake Ng on 72-15-8498FzZ8r (Bld) [Mass fraction]6.5 %High4.3-5.6FUniversity Hospitals Samaritan Medical CenterComment on above:Increased risk for diabetes: 5.7 - 6.4diabetes: >6.4glycemic control for adults with diabetes: <7.0Result Comment: Increased risk for diabetes: 5.7 - 6.4 diabetes: >6.4 glycemic control for adults with diabetes: <7.0Performed By: #### BMP, HEPATIC, A1C WTH eA, CBC, LIPID #### [facility] [address] [place] [address] USAHemoglobin [Mass/volume] in BloodOrdered By: Blake Ng on 37-60-0426Kfzspyhqty (Bld) [Mass/Vol]11.9 g/dLLow13.0-17.0Licking Memorial HospitalComment on above:Performed By: #### BMP, HEPATIC, A1C WTH eA, CBC, LIPID #### [facility] [address] [place] [address] USAHepatic Panelon 15-98-6814Agpanfw [Mass/Vol]4.4 g/dLNormal 3.5-5.7The [facility]. [facility] Hospital Physician GroupComment on above:Performed By: #### BMP, HEPATIC, A1C WTH eA, CBC, LIPID #### [facility] [address] [place] [address] USABilirubin,Indirect0.6 mg/dLNormalThe St. Luke'S Hospital Physician GroupComment on above:Performed By: #### BMP, HEPATIC, A1C WTH eA, CBC, LIPID #### [facility] [address] [place] [id number] USABilirubin.indirect [Mass/Vol]0.10 mg/dLNormal0.03-0.18The [facility]. [facility] Hospital Physician GroupComment on above:Performed By: #### BMP, HEPATIC, A1C WTH eA, CBC, LIPID #### [facility] [address] [place] [address] USALeukocytes [#/volume] corrected for nucleated erythrocytes in Blood by Automated counOrdered By: Blake gN on 83-94-4011ASV corrected for nucl RBC Auto (Bld) [#/Vol]5.6 10*3/uL4.1-10.5FUniversity Hospitals Samaritan Medical CenterLeukocytes [#/volume] in Blood by Automated countOrdered By: Blake Ng on 57-85-4743QSH (Bld) [#/Vol]5.6 10*3/uLNormal4.1-10.5FUniversity Hospitals Samaritan Medical CenterComment on above:Performed By: #### VIMAL, HEPATIC, A1C WTH eA, CBC, LIPID #### [facility] [address] [place] [id number] USALipid Panelon 72-93-5689SSH Cholesterol,Xzeqozryzg65 mg/dL Normal0-100The St. Luke'S Hospital Physician GroupComment on above:Result Comment: LDL ATP III CLASSIFICATION LDL less than 100 mg/dL Optimal LDL 100-129 mg/dL Near or above optimal LDL 130-159 mg/dL Borderline high LDL 160-189 mg/dL High LDL greater than 189 mg/dL Very highPerformed By: #### BMP, HEPATIC, A1C WTH eA, CBC, LIPID #### [facility] [address] [place] [id number] USATriglyceride w/Mzoxjz382 mg/dLHigh0-149The St. Luke'S Hospital Physician GroupComment on above:Result Comment: TRIG ATP III CLASSIFICATION TRIG less than 150 mg/dL Normal TRIG 150-199 mg/dL Borderline high TRIG 200-500 mg/dL High TRIG greater than 500 mg/dL Very high Standard traceable to the Center for Disease Conrtrol and Prevention (CDC) test method.Performed By: #### BMP, HEPATIC, A1C WTH eA, CBC, LIPID #### [facility] [address] [place] [address] USAVLDL NDINIGJOJAI56 mg/dLNoFormerly McDowell Hospital Physician GroupComment on above:Performed By: #### BMP, HEPATIC, A1C WTH eA, CBC, LIPID #### [facility] [address] [place] [address] USALymphocytes [#/volume] in Blood by Automated countOrdered By: Blake Ng on 17-89-3069Wjgenpgayhx (Bld) [#/Vol]1.0 10*3/uLNormal1.00-4.8 [facility] HospitalComment on above:Performed By: #### BMP, HEPATIC, A1C WTH eA, CBC, LIPID #### [facility] [address] [place] [address] USALymphocytes/100 leukocytes in Blood by Automated count Ordered By: Blake Ng on 11-83-6687Psbkvivehoa/100 WBC (Bld)17.1 %Normal. [facility] HospitalComment on above:Performed By: #### BMP, HEPATIC, A1C WTH eA, CBC, LIPID #### [facility] [address] [Entitic mass] by Automated countOrdered By: Blake Ng on 60-38-6895CZX (RBC) [Entitic mass]33.3 lgUbnvxy16.5-35.2FUniversity Hospitals Samaritan Medical CenterComment on above:Performed By: #### BMP, HEPATIC, A1C WTH eA, CBC, LIPID #### [facility] [address] Auto (RBC) [Mass/Vol]Ordered By: Blake Ng on 96-25-6942RHNQ (RBC) [Mass/Vol]35.0 g/dL32.5-35.6FUniversity Hospitals Samaritan Medical CenterMCV [Entitic volume] by Automated countOrdered By: Blake Ng on 40-61-3485CMF (RBC) [Entitic vol]95.1 fQWwjobt51.5-101L[facility] HospitalComment on above:Performed By: #### BMP, HEPATIC, A1C WTH eA, CBC, LIPID #### [facility] [address] [place] [address] USANeutrophils [#/volume] in Blood by Automated countOrdered By: Blake Ng on 12-40-7852Tuacmfdmlxi (Bld) [#/Vol]4.1 10*3/uLNormal1.8-7.7 [facility] HospitalComment on above:Performed By: #### BMP, HEPATIC, A1C WTH eA, CBC, LIPID #### [facility] [address] [place] [address] USANo Panel InformationOrdered By: Blake Ng on 01-25-2024 Estimated GFR (CKD-EPI)> 60.0 mL/MinLicking Memorial HospitalPhaacy Creatinine Clearance (ChemN/[facility]dena Health SystemNucleated erythrocytes [Presence] in Blood by Automated countOrdered By: Blake Ng on 39-75-9441Dzsgzjbdw RBC Auto Ql (Bld)0.1 /100{WBC}0-0.5FUniversity Hospitals Samaritan Medical CenterPlatelet mean volume [Entitic volume] in Blood by Automated count Ordered By: Blake Ng on 04-02-2167Tjbvohot mean volume (Bld) [Entitic vol] 6.6 fLNormal6.6-10.1FUniversity Hospitals Samaritan Medical CenterComment on above:Performed By: #### BMP, HEPATIC, A1C WTH eA, CBC, LIPID #### [facility] [address] [place] [address] USAPlatelets [#/volume] in Blood by Automated countOrdered By: Blake Ng on 53-27-9706Cfdpuguoe (Bld) [#/Vol]139 10*3/zFMke195-780 [facility] HospitalComment on above:Performed By: #### BMP, HEPATIC, A1C WTH eA, CBC, LIPID #### [facility] [address] [place] [address] USAPotassium [Moles/volume] in Serum or PlasmaOrdered By: Blake Ng on 82-89-5056Qqxqiaxli [Moles/Vol]4.5 mmol/LNormal3.5-5.1FUniversity Hospitals Samaritan Medical CenterComment on above:Performed By: #### BMP, HEPATIC, A1C WTH eA, CBC, LIPID #### [facility] [address] [place] [address] USAProtein [Mass/volume] in Serum or PlasmaOrdered By: Blake Ng on 40-41-2503Cdhrsmh [Mass/Vol]6.5 g/dLNormal6.4-8.9L[facility] HospitalComment on above:Performed By: #### BMP, HEPATIC, A1C WTH eA, CBC, LIPID #### [facility] [address] [place] [address] USASerum globulin measurement by calculation (mass/volume) Ordered By: Blake Ng on 86-47-9688Fqqiuzeg (S) [Mass/Vol]2.1 g/dLNoBethesda North HospitalComment on above:Performed By: #### VIMAL, HEPATIC, A1C WTH eA, CBC, LIPID #### [facility] [address] [place] [address] USASerum or plasma albumin/globulin mass ratioOrdered By: Blake Ng on 45-61-6997Lftjszl/Globulin [Mass ratio]2.1 {ratio}Normal [facility] HospitalComment on above:Performed By: #### BMP, HEPATIC, A1C WTH eA, CBC, LIPID #### [facility] [address] [place] [address] USASerum or plasma anion gap determinationOrdered By: Blake Ng on 86-89-1441Vpzrw gap [Moles/Vol]13.1 mmol/LNormal6.0-15.0L[facility] HospitalComment on above:Performed By: #### BMP, HEPATIC, A1C WTH eA, CBC, LIPID #### [facility] [address] [place] [id number] USASerum or plasma high density lipoprotein (HDL) cholesterol measurementOrdered By: Blake Ng on 46-26-0678Rginvoblkwh in HDL [Mass/Vol] 33 mg/qVVyrcan94-97DxvgdcqbtLicking Memorial HospitalComment on above:HDL CHOL ATP-III CLASSIFICATION Cardiovascular RiskHDL > or equal to 60 mg/dL LOWHDL < 40 mg/dL HIGHResult Comment: HDL CHOL ATP-III CLASSIFICATION Cardiovascular Risk HDL > or equal to 60 mg/dL LOW HDL < 40 mg/dL HIGHPerformed By: #### BMP, HEPATIC, A1C WTH eA, CBC, LIPID #### [facility] [address] [place] [id number] USASerum or plasma non-glucuronidated bilirubin measurement (mass/volume)Ordered By: Blake Ng on 41-43-9794Dczhlwneg.indirect [Mass/Vol] 0.6 mg/dLHolzer Health Systemerum or plasma total cholesterol/high density lipoprotein (HDL) cholesterol mass ratOrdered By: Blake Ng on 79-80-1680Avnhepxrivh.total/Cholesterol in HDL [Mass ratio]4.1 {ratio}Normal<5.0 [facility] HospitalComment on above:Result Comment: PERFORMED BY: [place] [address] PATHOLOGIST [employer]PERVISOR JUDY GARCIA M.D.Performed By: #### BMP, HEPATIC, A1C WTH eA, CBC, LIPID #### [facility] [address] [place] [address] USASodium [Moles/volume] in Serum or PlasmaOrdered By: Blake Ng on 37-54-2162Pimgox [Moles/Vol]138 mmol/GUxgiqi424-454ScsxnbklsLicking Memorial HospitalComment on above:Performed By: #### BMP, HEPATIC, A1C WTH eA, CBC, LIPID #### [facility] [address] [place] [id number] USATriglyceride [Mass/volume] in Serum or PlasmaOrdered By: Blake Ng on 78-70-0738Wvsmiamjhmfx [Mass/Vol]200 mg/dLHigh0-149L[facility] HospitalComment on above:TRIG ATP III CLASSIFICATIONTRIG less than 150 mg/dL NormalTRIG 150-199 mg/dL Borderline highTRIG 200-500 mg/dL High TRIG greater than 500 mg/dL Very highStandard traceable to the Center for Disease Conrtrol and Prevention (CDC) test method.Urea nitrogen [Mass/volume] in Serum or PlasmaOrdered By: Blake Ng on 94-75-4200Jdap nitrogen [Mass/Vol]26 mg/dLGrafton City Hospital7-25L[facility] Memorial HospitalComment on above:Performed By: #### BMP, HEPATIC, A1C WTH eA, CBC, LIPID #### [facility] [address] [place] [id number] USAProstate specific Ag [Mass/volume] in Serum or Plasma Ordered By: Rosy Pina on 54-99-2602Htosisng specific Ag [Mass/Vol]0.800 ng/mL0.000-4.000L[facility] HospitalComment on above:Serial tumor marker results determined by assays using different manufacturers or methods may not be comparable.[facility] pipe line maintenance supervisor and method:[employer] DXI, CHEMILUMINESCENT IMMUNOASSAY.Prostate specific Ag [Mass/volume] in Serum or PlasmaOrdered By: Rosy Pina on 98-82-9014Qbmjedld specific Ag [Mass/Vol] 0.400 ng/mL0.000-4.000L[facility] HospitalComment on above:Serial tumor marker results determined by assays using different manufacturers or methods may not be comparable.[facility] pipe line maintenance supervisor and method:[employer] Net TechnologiesEL DXI, CHEMILUMINESCENT IMMUNOASSAY.Prostate specific Ag [Mass/volume] in Serum or PlasmaOrdered By: Rosy Pina on 06-06-2023 Prostate specific Ag [Mass/Vol]0.680 ng/mL0.000-4.000L[facility] HospitalComment on above:Serial tumor marker results determined by assays using different manufacturers or methods may not be comparable.[facility] pipe line maintenance supervisor and method:[employer]EL DXI, CHEMILUMINESCENT IMMUNOASSAY. Prostate Specific Ag Free [Mass/volume] in Serum or PlasmaOrdered By: Jermaine Jensen on 44-60-6242Arwj PSA [Mass/Vol]0.540 ng/mLLicking Memorial HospitalProstate specific Ag [Mass/volume] in Serum or PlasmaOrdered By: Jermaine Jensen on 04-92-8982Dbsgglzi specific Ag [Mass/Vol]1.590 ng/mL0.000-4.000 Holzer Health Systemerum or plasma free prostate specific antigen (PSA)/total PSA ratioOrdered By: Jermaine Jensen on 97-60-7567Vqkh PSA/Total PSA [Mass fraction]33.9 %[facility] HospitalComment on above:Based on the work of Martha et al.VITO. 27919):0862:47.1998 the percent free PSA may be used to determine the relative risk of prostate cancer in individual men.The percent probability of prostatecancer by patient age for men with non-suspicious AENESH results and total PSa between 4 and 10 ng/ml is as follows:% Free PSA 50 - 64 yrs. 65 - 75 yrs. 0 - 10 56% 55% 10 - 15 24% 35% 15 - 20 17% 23% 20- 25 10% 20% >25 5% 9%Prostate specific Ag [Mass/volume] in Serum or PlasmaOrdered By: Rosy Pina on 99-54-9889Dpiogxzn specific Ag [Mass/Vol]2.090 ng/mL 0.000-4.000L[facility] Memorial HospitalGLYCOHEMOGLOBIN A1Con 35-75-2019ZLG RECOMMENDATIONSEE [facility] HospitalComselect [facility] on above:Result Comment: ADA RECOMMENDED LIMIT 4.0 - 6.0 ADA THERAPEUTIC TARGET < 7.0 ACTION SUGGESTED > 7.0Performed By: #### A1C #### [facility] [address] [place] [address] [address] Sary JoelGlucose [Mass/Vol]163 mg/dLSelect Medical Specialty Hospital - Southeast OhioComselect specialty hospital-g[facility] pointe on above:Performed By: #### A1C #### [facility] [address] [place] [address] [address] Sary JoelHbA1c (Bld) [Mass fraction]7.3 %Critically high4.5-6.2The The Bellevue HospitalComment on above:Performed By: #### A1C #### [facility] [address] [address] [address] Sary JoelGlucose Glucometer (BldC) [Mass/Vol]Ordered By: Rosy Pina on 20-98-8429Sriexls [Mass/Vol]157 mg/dLLicking Memorial HospitalComment on above:Random Glucose Reference Range is dependent on time and content of last meal. Glucose of more than 200 mg/dL in a nonstressed, ambulatory subject supports the diagnosis of Diabetes Mellitus.Basophils Auto (Bld) [#/Vol]Ordered By: Rosy Pina on 88-54-9561Jqaywbqpt (Bld) [#/Vol]0.0 10*3/uL0.0-0.2 [facility] HospitalBasophils/100 WBC Auto (Bld)Ordered By: Rosy Pina on 57-21-5100Tavccalpo/100 WBC (Bld)0.4 %.[facility] HospitalCreatinine and Glomerular filtration rate.predicted panel (S/P/Bld)Ordered By: Rosy Pina on 73-00-4257Mcdjhpcrdi [Mass/Vol]0.84 mg/dL0.64-1.27L[facility] Memorial HospitalEosinophils Auto (Bld) [#/Vol] Ordered By: Rosy Pina on 83-00-6307Aimewuazsqr (Bld) [#/Vol]0.3 10*3/uL 0.0-0.45L[facility] HospitalEosinophils/100 WBC Auto (Bld)Ordered By: Rosy Pina on 45-98-7150Lfgwjimuygz/100 WBC (Bld)5.1 %.[facility] HospitalErythrocyte distribution width Auto (RBC) [Ratio]Ordered By: Rosy Pina on 26-05-6754Vwegxloszkd distribution width (RBC) [Ratio] 14.3 %12.0-14.8L[facility] HospitalEstimated glomerular filtration rate (GFR) non- AmericanOrdered By: Rosy Pina on 05-08-2022 GFR/1.73 sq M.predicted among non-blacks MDRD (S/P/Bld) [Vol rate/Area]> 60 mL/MinLicking Memorial HospitalHematocrit Auto (Bld) [Volume fraction] Ordered By: Rosy Pina on 03-88-3712Gigviaoala (Bld) [Volume fraction]37.5 %38.8-50.0[facility] HospitalHemoglobin [Mass/volume] in Blood Ordered By: Rosy Pina on 24-72-6506Pfvajyqdsm (Bld) [Mass/Vol]12.9 g/dL 13.0-17.0[facility] HospitalLaboratory - Hematology and Cell countsOrdered By: Rosy Pina on 27-10-5343Nswkaeslw RBC/100 WBC (Bld) [Ratio]0.0 %0-0.5FUniversity Hospitals Samaritan Medical CenterLeukocytes [#/volume] in Blood by Automated countOrdered By: Rosy Pina on 63-30-8287BYU (Bld) [#/Vol] 5.7 10*3/uL4.5-11.0[facility] HospitalLymphocytes Auto (Bld) [#/Vol]Ordered By: Rosy Pina on 89-91-5414Ofkyfhvwbfy (Bld) [#/Vol]1.2 10*3/uL1.00-4.8[facility] HospitalLymphocytes/100 WBC Auto (Bld) Ordered By: Rosy Pina on 66-17-9685Ptwhnoxbsgg/100 WBC (Bld)20.5 %. [facility]H Auto (RBC) [Entitic mass]Ordered By: Rosy Pina on 05-95-8249VMT (RBC) [Entitic mass]31.8 pg27.5-35.2FUniversity Hospitals Samaritan Medical CenterMCHC Auto (RBC) [Mass/Vol]Ordered By: Rosy Pina on 20-01-3685EAAH (RBC) [Mass/Vol]34.4 g/dL32.5-35.6FUniversity Hospitals Samaritan Medical CenterMCV Auto (RBC) [Entitic vol]Ordered By: Rosy Pina on 91-96-8261JJP (RBC) [Entitic vol]92.4 fL83.5-101[facility] HospitalMonocytes Auto (Bld) [#/Vol]Ordered By: Rosy Pina on 50-03-0820Mygfebemw (Bld) [#/Vol]0.3 10*3/uL0.0-0.8[facility] HospitalMonocytes/100 WBC Auto (Bld)Ordered By: Rosy Pina on 76-83-0541Omjhxbopa/100 WBC (Bld)4.5 %. [facility] HospitalNeutrophils Auto (Bld) [#/Vol]Ordered By: Rosy Pina on 54-92-6151Liuiolvbkxg (Bld) [#/Vol]4.0 10*3/uL1.8-7.7 [facility] HospitalNeutrophils/100 WBC Auto (Bld)Ordered By: Rosy Pina on 81-75-5599Hkhziqgjtsp/100 WBC (Bld)69.5 %.[facility] HospitalNo Panel InformationOrdered By: Rosy Pina on 05-08-2022 Estimated GFR ()> 60 mL/MinLicking Memorial Hospital Comment on above:GFR estimated reference range: According to KDOQI guidelines, <60 ml/min/1.73m2 is sufficient todiagnose a patient with chronic kidney disease.Pharmacy Creatinine Clearance (ChemN/[facility] Platelet mean volume Auto (Bld) [Entitic vol]Ordered By: Rosy Pina on 55-74-6695Bfgplsuo mean volume (Bld) [Entitic vol]6.9 fL6.6-10.1FUniversity Hospitals Samaritan Medical CenterPlatelets Auto (Bld) [#/Vol]Ordered By: Rosy Pina on 22-52-5492Fcmcozksu (Bld) [#/Vol]148 10*3/vE309-453AdvoqjrylLicking Memorial HospitalRBC Auto (Bld) [#/Vol]Ordered By: Rosy Pina on 64-60-8716IAT (Bld) [#/Vol]4.05 10*6/uL3.90-5.60Holzer Health Systemerum or plasma anion gap determinationOrdered By: Rosy Pina on 72-88-0937Mbrgn gap [Moles/Vol]16.6 mmol/L6.0-15.0Holzer Health Systemerum or plasma calcium measurement (mass/volume)Ordered By: Rosy Pina on 05-08-2022 Calcium [Mass/Vol]9.7 mg/dL8.2-10.2FHocking Valley Community Hospitalerum or plasma chloride measurement (moles/volume)Ordered By: Rosy Pina on 52-24-5636Noagsaqs [Moles/Vol]99 mmol/Q97-714ZrhkpkmvlLicking Memorial Hospital Serum or plasma glucose measurement (mass/volume)Ordered By: Rosy Pina on 93-86-2609Xmqnzbw [Mass/Vol]132 mg/fH50-888HnkgtufhyLicking Memorial Hospital Comment on above:ADA recommended reference rangeRandom Glucose Reference Range is dependent on time and content of last meal. Glucose of more than 200 mg/dL in a nonstressed, ambulatory subject supports the diagnosisof Diabetes Mellitus. Serum or plasma potassium measurement (moles/volume)Ordered By: Rosy Pina on 99-90-7956Pbfcnnilg [Moles/Vol]4.5 mmol/L3.5-5.1FHocking Valley Community Hospitalerum or plasma sodium measurement (moles/volume)Ordered By: Rosy Pina on 62-21-0228Dranse [Moles/Vol]135 mmol/W672-773HxahvocddHolzer Health Systemerum or plasma total carbon dioxide measurement (moles/volume) Ordered By: Rosy Pina on 48-73-1532XY7 [Moles/Vol]23.9 mmol/L22.0-30.0 [facility] Health Systemerum or plasma urea nitrogen measurement (mass/volume)Ordered By: Rosy Pina on 17-98-7033Amwb nitrogen [Mass/Vol] 15 mg/dL9-23[facility] HospitalCreatinine (Bld) [Mass/Vol]Ordered By: Jermaine Jensen on 72-86-8692Wyayhjmdjc [Mass/Vol]1.0 mg/dL0.6-1.3FUniversity Hospitals Samaritan Medical CenterComment on above:ER/ESD physician is notified/shown all ISTAT results. Critical values may be confirmed by laboratory testing if deemed necessary by ER attending doctor.ER/ESD physician is notified/shown all ISTAT results.Critical values may be confirmed by laboratorytesting ifdeemed necessary by ER attending doctor.No Panel InformationOrdered By: Jermaine Jensen on 83-27-0833FRG Estimated GFR > 60L[facility] HospitalComment on above:GFR estimated reference range: According to KDOQI guidelines, <60 ml/min/1.73m2 is sufficient todiagnose a patient with chronic kidney disease.POC Estimated GFR Non- Amer> 60L[facility] HospitalMICROALBUMIN URINEon 96-35-3397Omvtcwd, Urine63.5 ug/mLNormalNot Estab.The [facility] HospitalComment on above:Performed By: #### MALBLC #### [facility] [address] [address] [address] Sary Norris AUTO DIFFon 46-24-1584UAEV #0.1 103/ulNormal0.0-0.1The The [facility] HospitalComment on above:Performed By: #### CBC #### [facility] [address] [address] [address] Sary JoelBasophils/100 WBC (Bld)0.7 %Normal0.2-2.0[facility] Comment on above:Performed By: #### CBC #### [facility] [address] [address] [address] Sary Junior #0.5 103/ulNormal0.0-0.7The The [facility] HospitalComment on above: Performed By: #### CBC #### [facility] [address] [address] [address] Sary Jhaosinophils/100 WBC (Bld)6.9 %Normal0.9-7.0[facility] Comment on above:Performed By: #### CBC #### [facility] [address] [address] [address] Sary Jharythrocyte distribution width (RBC) [Ratio]14.0 %Infozo99.0-15.0 [facility] CenterComment on above:Performed By: #### CBC #### [facility] [address] [address] [address] Sary JoelHematocrit (Bld) [Volume fraction]34.2 %Critically low42.0-54.0 The The [facility]vue HospitalComment on above:Performed By: #### CBC #### [facility] [address] [address] [address] Sary JoelHemoglobin (Bld) [Mass/Vol]11.8 g/dLCritically low14.0-18.0The [facility] HospitalComment on above:Performed By: #### CBC #### [facility] [address] [place] [address] Dr. Sary Goodman #0.02 10e3/ulNormal0.00-0.03The [facility] HospitalComment on above:Performed By: #### CBC #### [facility] [address] [place] [address] Dr. Sary Goodman %0.3 %Normal0.0-0.5The The [facility] HospitalComment on above: Performed By: #### CBC #### [facility] [address] [place] [address] Dr. Sary Trammell #1.5 103/ulNormal1.2-3.8The The [facility] HospitalComment on above:Performed By: #### CBC #### [facility] [address] [place] [address] Dr. Sary Fariashocytes/100 WBC (Bld)21.6 %Gxwebp05.5-60.0The [facility] HospitalComment on above:Performed By: #### CBC #### [facility] [address] [place] [address] Dr. Sary MatiasMARIETTA O[facility] DIFF REQNONormalThe The [facility] HospitalComment on above: Performed By: #### CBC #### [facility] [address] [place] [address] Dr. Sary Loredo (RBC) [Entitic mass]32.7 asUrvfxv52.9-34.0The The [facility] HospitalComment on above:Performed By: #### CBC #### [facility] [address] [place] [address] Dr. Sary Loredo (RBC) [Mass/Vol]34.5 g/uZBkcipl06.9-35.2The The [facility] HospitalComment on above:Performed By: #### CBC #### [facility] [address] [place] [address] Dr. Yilan ChangMCV (RBC) [Entitic vol]94.7 fLCritically high80.0-94.0The The [facility] HospitalComment on above:Performed By: #### CBC #### [facility] [address] [place] [address] Dr. Sary Wadsworth #0.4 103/ulNormal0.3-0.8The The [facility] HospitalComment on above:Performed By: #### CBC #### [facility] [address] [place] [address] Dr. Sary Tateocytes/100 WBC (Bld)5.3 %Normal1.7-12.0The [facility] Comment on above:Performed By: #### CBC #### [facility] [address] [place] [address] Dr. Sary Dave #4.5 103/ulNormal1.4-6.5The The [facility] HospitalComment on above:Performed By: #### CBC #### [facility] [address] [place] [address] Dr. Sary Anutrophils/100 WBC (Bld)65.2 %Ooaljz72.0-75.0The The [facility] HospitalComment on above:Performed By: #### CBC #### [facility] [address] [place] [address] Dr. Sary Olmedo mean volume (Bld) [Entitic vol]9.2 fLCritically low 9.5-13.5The The [facility] HospitalComment on above:Performed By: #### CBC #### [facility] [address] [place] [address] Dr. Sary JoelPLT137 103/ulCritically fwx315-062Dal The [facility] HospitalComment on above:Performed By: #### CBC #### [facility] [address] [place] [address] Dr. Sary JoelRBC3.61 106/ulCritically low4.70-6.10The The [facility] HospitalComment on above:Performed By: #### CBC #### [facility] [address] [place] [address] Dr. Sary JoelWBC6.8 103/ulNormal4.0-11.0The [facility] HospitalComment on above: Performed By: #### CBC #### [facility] [address] [place] [address] Dr. Sary JoelGLYCOHEMOGLOBIN A1Con 14-89-2285YUH RECOMMENDATIONSEE BELOWMartins Ferry HospitalComment on above:Result Comment: ADA RECOMMENDED LIMIT 4.0 - 6.0 ADA THERAPEUTIC TARGET < 7.0 ACTION SUGGESTED > 7.0Performed By: #### A1C #### [facility] [address] [place] [address] Dr. Sary JeolGlucose [Mass/Vol]137 mg/dLNoCleveland ClinicComment on above:Performed By: #### A1C #### [facility] [address] [place] [address] Dr. Sary JoelHbA1c (Bld) [Mass fraction]6.4 %Critically high4.5-6.2The The [facility] HospitalComment on above:Performed By: #### A1C #### [facility] [address] [place] [address] Dr. Sary JoelLIPID PROFILEon [id number]-HDL RATIO NORMSEE [facility]'s HospitalComment on above:Result Comment: 3.3 - 4.4 LOW RISK 4.4 - 7.1 AVERAGE RISK 7.1 - 11.0 MODERATE RISK >11.0 HIGH RISKPerformed By: #### BMP, AST, ALT, LIPID #### [facility] [address] [place] [address] Dr. Sary JoelCholesterol [Mass/Vol]124 mg/dLNormal<=200The [facility] Comment on above:Performed By: #### BMP, AST, ALT, LIPID #### [facility] [address] [place] [address] Dr. Sary JoelCholesterol in HDL [Mass/Vol]28 mg/dLCritically clj63-23Kue [facility] HospitalComment on above:Performed By: #### BMP, AST, ALT, LIPID #### [facility] [address] [address] [address] Sary JoelCholesterol in LDL [Mass/Vol]41.0 mg/dLSelect Medical Specialty Hospital - Southeast OhioComment on above:Performed By: #### BMP, AST, ALT, LIPID #### [facility] [address] [address] [address] Sary Santanaesterorlin.total/Cholesterol in HDL [Mass ratio]4.4 {ratio} NormalOhiohealth Nelsonville Health CenterComselect specialty hospital-[facility] on above:Performed By: #### BMP, AST, ALT, LIPID #### [facility] [address] [address] [address] Sary Matias NORMAL> or = 60 mg/dl - LOW CARDIOVASCULAR RISK <40 mg/dl - HIGH CARDIOVASCULAR RISKSelect Medical Specialty Hospital - Southeast OhioComselect specialty hospital-[facility]inte on above:Performed By: #### BMP, AST, ALT, LIPID #### [facility] [address] [place] [address] Dr. Sary Brock CALC NORMALSEE BELOWSelect Medical Specialty Hospital - Southeast OhioComment on above:Result Comment: <100 mg/dl OPTIMAL 100 - 129 mg/dl NEAR OR ABOVE OPTIMAL 130 - 159 mg/dl BORDERLINE HIGH 160 - 189 mg/dl HIGH >190 mg/dl VERY HIGH Performed By: #### BMP, AST, ALT, LIPID #### [facility] [address] [place] [address] Dr. Sary JoelTriglyceride [Mass/Vol]275 mg/dLCritically high<=150Ohio[facility] CenterComselect specialty hospital[facility] on above:Performed By: #### BMP, AST, ALT, LIPID #### [facility] [address] [place] [address] Dr. Sary JoelVLDL CALC55.0 mg/dLSelect Medical Specialty Hospital - Southeast OhioComment on above: Performed By: #### BMP, AST, ALT, LIPID #### [facility] [address] [place] [address] Dr. Sary JoelPROF CHEM 8 (BAS METB)on 69-21-2653Xumcv gap [Moles/Vol]17.0 mmol/LNormalOhiohealth Nelsonville Health CenterComment on above:Performed By: #### BMP, AST, ALT, LIPID #### [facility] [address] [address] [address] Sary JoelCalcium [Mass/Vol]9.0 mg/dLNormal8.5-10.1The [facility] Comment on above:Performed By: #### BMP, AST, ALT, LIPID #### [facility] [address] [place] [address] Dr. Sary JoelChloride [Moles/Vol]101 mmol/ZRjdrle18-659Nmc [facility] Comment on above:Performed By: #### BMP, AST, ALT, LIPID #### [facility] [address] [place] [address] Dr. Sary JoelCO2 [Moles/Vol]24.7 mmol/WHjixgq88.0-32.0[facility] Comment on above:Performed By: #### BMP, AST, ALT, LIPID #### [facility] [address] [place] [address] Dr. Sary JoelCreatinine [Mass/Vol]1.22 mg/dLNormal0.70-1.30The [facility] HospitalComment on above:Performed By: #### BMP, AST, ALT, LIPID #### [facility] [address] [place] [address] Dr. Sary JhaGFR-AF BERMUDIAN>60Normal>=60The [facility] HospitalComment on above:Performed By: #### BMP, AST, ALT, LIPID #### [facility] [address] [place] [address] Dr. Sary JhaGFR-NON AF TNHVKNGN98 mL/min/1.10j0Wngrmvgopf low>=60The [facility] HospitalComment on above:Performed By: #### BMP, AST, ALT, LIPID #### [facility] [address] [place] [address] Dr. Sary JoelGlucose [Mass/Vol]155 mg/dLCritically rivl14-881Puw [facility] HospitalComment on above:Performed By: #### BMP, AST, ALT, LIPID #### [facility] [address] [place] [address] Dr. Sary JoelPotassium [Moles/Vol]4.7 mmol/LNormal3.5-5.1The [facility] Comment on above:Performed By: #### BMP, AST, ALT, LIPID #### [facility] [address] [address] [address] Sary JoelSodium [Moles/Vol]138 mmol/GUrtmop180-549Hjf [facility] Comment on above:Performed By: #### BMP, AST, ALT, LIPID #### [facility] [address] [address] [address] Sary JoelUrea nitrogen [Mass/Vol]25.0 mg/dLCritically high7.0-18.0The [facility] HospitalComment on above:Performed By: #### BMP, AST, ALT, LIPID #### [facility] [address] [place] [address] Dr. Sary De Anda nitrogen/Creatinine [Mass ratio]20.5 mg/mgNormalThe [facility] HospitalComment on above:Performed By: #### BMP, AST, ALT, LIPID #### [facility] [address] [place] [address] Dr. Sary Gaona [id number] [Catalytic activity/Vol]23 U/WKclemx90-71Vcw [facility] HospitalComment on above:Performed By: #### BMP, AST, ALT, LIPID #### [facility] [address] [place] [address] Dr. Sary Best [id number] [Catalytic activity/Vol]33 U/LNputhf07-88Ojj [facility] HospitalComment on above:Performed By: #### BMP, AST, ALT, LIPID #### [facility] [address] [place] [address] Dr. Sary JoelXR KUB 1 VIEWon [id number] KUB 1 VIEWEXAMINATION: XR KUB 1 VIEW HISTORY: Lower urinary [...] Electronically authenticated by: ISABELLA FULLER Date: 2021-12-16 15:58Select [facility] Southeast OhioCNCOon [id number] TextNormalCACMC Healthcare [facility] Panel InformationBluffton Hospital Vital Signs Date TimeVital SignValuePerforming OewbevfebLuzmilwz48-20-9276 10:48-0400Body pgwfjy731.96 cmBlake Ng MD Work Phone: 1(089)[address]10-01-2025 10:48-0400 Body mass index (BMI) [Ratio]25.1 kg/m2Blake Ng MD Work Phone: 1(420)[address] [place], [place] 7263910-01-2025 10:48-0400 Body mcmhjnynsfe62.1 [degF]Blake Ng MD Work Phone: 1(048)[address]10-01-2025 10:48-0400 Body hdudsd68.9 kgBlake Ng MD Work Phone: 1(978)[address]10-01-2025 10:48-0400 Diastolic blood iajgpvpx16 mm[Hg]Blake Ng MD Work Phone: 1(689)[address]171 [address]10-01-2025 10:48-0400 Heart rate94 /minBlake Ng MD Work Phone: 1(579)29371 [address]10-01-2025 10:48-0400 Respiratory rate18 /minBlake Ng MD Work Phone: 1(127)[address] [place], [place] 3207310-01-2025 10:48-0400 SaO2% (BldA) [Mass fraction]98 %Blake Ng MD Work Phone: 1(001)[address]10-01-2025 10:48-0400 Systolic blood thgdonrj032 mm[Hg]Blake Ng MD Work Phone: [facility]08-26-2025 10:52-0400 Body uzohsc299 cmBlake Ng MD Work Phone: [facility] HospitalMdmncxwyyc12-77-5145 10:52-0400Body mass index (BMI) [Ratio]25.42 kg/m2Blake Ng MD Work Phone: [facility] HospitalDuqleceivk45-49-5668 10:52-0400Body temperature 97.11 [degF]Blake Ng MD Work Phone: [facility] HospitalIzyvqmxnzp96-39-7075 10:52-0400Body .81 kgBlake Ng MD Work Phone: [facility] HospitalNkfymxlite83-42-5513 10:52-0400Diastolic blood qhtyyoyx75 mm[Hg]Blake Ng MD Work Phone: [facility] HospitalEpdxpkayrk61-24-4163 10:52-0400Heart rate79 /min Blake Ng MD Work Phone: [facility] HospitalPdosicxxhe98-78-1267 10:52-0400Respiratory rate18 /minBlake Ng MD Work Phone: [facility] HospitalSbqlaterkj67-74-5303 10:52-2829QwR4% (BldA) [Mass fraction]96 %Blake Ng MD Work Phone: [facility] HospitalLifxdsyjue99-27-2991 10:52-0400Systolic blood mm[Hg]Blake Ng MD Work Phone: [facility] HospitalWyiesciinm49-61-0218 09:22-0400Body mlsihg804 cm Isabella Powell DPM Work Phone: [address] [address]Udvbvhzvmt49-18-8502 09:22-0400Body mass index (BMI) [Ratio]25.16 kg/u9Bersulgurdeep Powell DPM Work Phone: [address] [address]Kagtnmtloi82-49-4680 09:22-0400Body qyutvv50.91 kgStgurdeep Powell DPM Work Phone: [facility] HospitalVpaenluozk56-93-3059 11:48-0400Body bnmice655 cm Blake Ng MD Work Phone: [facility] HospitalFxbwheufyx41-81-5829 11:48-0400Body mass index (BMI) [Ratio]25.16 kg/m2Blake Ng MD Work Phone: [facility] HospitalSbxczrefil68-32-0944 11:48-0400Body temperature 97.11 [degF]Blake Ng MD Work Phone: [facility] HospitalIbynzvfrti27-36-2602 11:48-0400Body .91 kgBlake Ng MD Work Phone: [facility] HospitalUanmplnokc88-02-3681 11:48-0400Diastolic blood jcfqofcg24 mm[Hg]lBake Ng MD Work Phone: [facility] HospitalTsecjrpcfs97-90-8398 11:48-0400Heart rate89 /min Blake Ng MD Work Phone: [facility] HospitalOmlfvfmncp52-85-9697 11:48-0400Respiratory rate18 /minBlake Ng MD Work Phone: [facility] HospitalOpbpyntlox85-45-9835 11:48-7838SgU9% (BldA) [Mass fraction]98 %Blake Ng MD Work Phone: [facility] HospitalLdbxllpodq23-29-8357 11:48-0400Systolic blood mm[Hg]Blake Ng MD Work Phone: [facility] HospitalTpyeosdmwh49-68-4725 12:00-0400Body cm Jaycob Ferguson DO Work Phone: noMid [facility] CenterArsmoegtdg94-54-6046 12:00-0400Body mass index (BMI) [Ratio]26.71 kg/y8HtnxkJaycob Ferguson DO Work Phone: noMid [facility] CenterJtaelmswqt48-98-0072 12:00-0400Body sdazwr96.35 kgJaycob Ferguson DO Work Phone: noMid [facility] CenterTcfbbddzxm85-16-2240 09:16-0400Body fgbesh203 cm Isabella Powell DPM Work Phone: [facility] HospitalUhquadpvuy20-81-0987 09:16-0400Body mass index (BMI) [Ratio]26.96 kg/b4Wjdddigurdeep Powell DPM Work Phone: [facility] HospitalOupnladhuh72-21-8455 09:16-0400Body utubxh76.25 kgStevberny Powell DPM Work Phone: [facility] HospitalXkoaypuuef63-56-9607 10:48-0500Body tmreyh806 cm Blake Ng MD Work Phone: [facility] HospitalJbngkzzpie82-11-5386 10:48-0500Body mass index (BMI) [Ratio]27.09 kg/m2Blake Ng MD Work Phone: [facility] HospitalQizdlttodj44-01-0422 10:48-0500Body temperature 97.5 [degF]Blake Ng MD Work Phone: [facility] HospitalTufebcmjha52-62-8285 10:48-0500Body .71 kgBlake Ng MD Work Phone: [facility] HospitalQwixjehnki86-53-4643 10:48-0500Diastolic blood zfxqgvey43 mm[Hg]Blake Ng MD Work Phone: [facility] HospitalKdvmjojrfc84-44-8426 10:48-0500Heart rate85 /min Blake Ng MD Work Phone: [facility] HospitalZlunzeuogo02-51-3264 10:48-0500Respiratory rate18 /minBlake Ng MD Work Phone: [facility] HospitalLqdwzxwsms47-34-9883 10:48-7429SyI5% (BldA) [Mass fraction]97 %Blake gN MD Work Phone: [facility] HospitalYnwfgsusmr11-15-2093 10:48-0500Systolic blood peajisfs486 mm[Hg]Blake Ng MD Work Phone: [facility] HospitalNuwisrwqyr14-63-9050 09:40-0500Body pbwigc083 cm Isabella Powell DPM Work Phone: [facility] HospitalZryzytkhwd61-76-7432 09:40-0500Body mass index (BMI) [Ratio]26.06 kg/r2Uwvcrsgurdeep Powell DPM Work Phone: [facility] HospitalMcobtbhnij82-83-9411 09:40-0500Body aclodz59.08 kgStgurdeep Andre DPM Work Phone: [facility] HospitalUsuzkxbgsg83-37-6905 09:29-0500Body cm Blake Ng MD Work Phone: [facility] HospitalWkofcjnecl59-57-6639 09:29-0500Body mass index (BMI) [Ratio]26.06 kg/m2Blake Ng MD Work Phone: [facility] HospitalLsrpysirzl18-38-1847 09:29-0500Body temperature 98.01 [degF]Blake Ng MD Work Phone: [facility] HospitalWgtjvqitjt05-85-9383 09:29-0500Body .08 kgBlake Ng MD Work Phone: [facility] HospitalLtkqxnamle02-43-6591 09:29-0500Diastolic blood llmxyqbx28 mm[Hg]Blake Ng MD Work Phone: [facility] HospitalReayebazen93-80-1362 09:29-0500Heart rate96 /min Blake Ng MD Work Phone: [facility] HospitalZtxzbytsqk92-57-7290 09:29-0500Respiratory rate22 /minBlake Ng MD Work Phone: [facility] HospitalVmtjcexfey89-50-2611 09:29-6979FgD8% (BldA) [Mass fraction]98 %Blake Ng MD Work Phone: [facility] HospitalMqznpswgle17-30-5197 09:29-0500Systolic blood chykazem062 mm[Hg]Blake Ng MD Work Phone: [facility] HospitalIcaktgqbox69-47-4068 09:41-0500Body cm Isabella Rusher DPM Work Phone: 1(640)[address] [place], [place] 3942912-05-2024 09:41-0500Body mass index (BMI) [Ratio]25.42 kg/g5Ajwlul Rusher DPM Work Phone: 1(337)[address] [place], [place] 3942912-05-2024 09:41-0500Body .81 kgSteven Rusher DPM Work Phone: 1(849)[address] [place], [place] 3942911-04-2024 14:52-0500Body rjtcis100 cm Isabella Rusher DPM Work Phone: 1(257)[address] [place], [place] 3942911-04-2024 14:52-0500Body mass index (BMI) [Ratio]25.42 kg/y5Flxbgz Rusher DPM Work Phone: 1(366)[address] [place], [place] 3942911-04-2024 14:52-0500Body .81 kgSteven Rusher DPM Work Phone: 1(261)[address] [place], [place] 3942910-23-2024 13:23-0400Body gwuwsv214 cm Isabella Rusher DPM Work Phone: 1(537)[address] [place], [place] 3942910-23-2024 13:23-0400Body mass index (BMI) [Ratio]25.42 kg/q6Ivveca Rusher DPM Work Phone: 1(245)[address] [place], [place] 3942910-23-2024 13:23-0400Body cmkiwl44.81 kgSteven Rusher DPM Work Phone: 1(047)[address] [place] [address]-16-2024 14:22-0400Body vlewta032 cm Isabella Rusher DPM Work Phone: 1(622)[address] [place] [address]-16-2024 14:22-0400Body mass index (BMI) [Ratio]25.42 kg/b4Lkxonr Rusher DPM Work Phone: 1(348)[address] [place] [address]-16-2024 14:22-0400Body .81 kgSteven Rusher DPM Work Phone: 1(275)[address] [place] [address]-14-2024 08:30-0400Body aqqbix008 cm Isabella Rusher DPM Work Phone: [facility] HospitalDsrnlfanol30-74-1676 08:30-0400Body mass index (BMI) [Ratio]25.42 kg/l0Ffxpssgurdeep Powell DPM Work Phone: [facility] HospitalNsbpcmjtga07-78-9634 08:30-0400Body .81 kgSteven Andre DPM Work Phone: [facility] HospitalGpsrjmancp17-63-2843 10:36-0400Body txzkli42.81 kgMD Blake Ng Work Phone: [facility]08-01-2024 10:36-0400 Diastolic blood qimskymm04 mm[Hg]MD Blake Ng Work Phone: [facility]08-01-2024 10:36-0400 Heart rate83 /minMD Blake Ng Work Phone: 1(452)619-[address] [place], [place] 0544208-01-2024 10:36-0400 Respiratory rate18 /minMD Blake Ng Work Phone: 1(072)220-[facility]08-01-2024 10:36-0400 SaO2% (BldA) [Mass fraction]98 %MD Blake Ng Work Phone: [facility]08-01-2024 10:36-0400 Systolic blood bnraexkx133 mm[Hg]MD Blake Ng Work Phone: [facility]07-19-2024 09:39-0400 Blood Pressure LocationJermaine JENSEN [facility]07-19-2024 09:39-0400Body mkpyiqvslkr30.6 [degF]Jermaine JENSEN [facility]07-19-2024 09:39-0400Diastolic blood ujzimhjc71 mm[Hg]Jermaine JENSEN [facility]07-19-2024 09:39-0400Heart rate80 /minPatrick MIKEY [facility]07-19-2024 09:39-0400Respiratory rate16 /minPatrick MIKEY [facility]07-19-2024 09:39-0400Systolic blood jyhjagxi212 mm[Hg]Jermaine JENSEN [facility]04-09-2024 10:01-0400Body ierevtijijd76.9 [degF]MD Blake Ng Work Phone: 1(633)997-[facility]04-09-2024 10:01-0400 Body yhpvuy89.33 kgMD Blake Ng Work Phone: 1(261)274-[address] [place], [place] 05[address]204-09-2024 10:01-0400 Diastolic blood mm[Hg]MD Blake Ng Work Phone: [facility]04-09-2024 10:01-0400 Heart rate89 /minMD Blake Ng Work Phone: 1(655)986-[facility]04-09-2024 10:01-0400 Respiratory rate16 /minMD Blake Ng Work Phone: [facility]04-09-2024 10:01-0400 SaO2% (BldA) [Mass fraction]94 %MD Blake Ng Work Phone: [facility]04-09-2024 10:01-0400 Systolic blood fibvktfm667 mm[Hg]MD Blake Ng Work Phone: [facility]03-13-2024 14:28-0400 Diastolic blood jaolycqa00 mm[Hg]MD Blake Ng Work Phone: [facility]03-13-2024 14:28-0400 Heart rate77 /minMD Blake Ng Work Phone: 1(636)[address]03-13-2024 14:28-0400 Systolic blood ickwfzls745 mm[Hg]MD Blake Ng Work Phone: 1(920)[address]01-03-2024 09:59-0500 Body ffyhbydljbz68.8 [degF]MD Blake Ng Work Phone: 1(759)[address] [place], [place] 3207301-03-2024 09:59-0500 Body fgrpke71.06 kgMD Blake Ng Work Phone: 1(302)[address] [place], [place] 3207301-03-2024 09:59-0500 Diastolic blood xptwczyg68 mm[Hg]MD Blake Ng Work Phone: 1(234)[address] [place], [place] 3207301-03-2024 09:59-0500 Heart rate84 /minMD Blake Ng Work Phone: 1(319)[address] [place], [place] 3207301-03-2024 09:59-0500 Respiratory rate16 /minMD Blake Ng Work Phone: 1(758)[address] [place], [place] 3207301-03-2024 09:59-0500 SaO2% (BldA) [Mass fraction]98 %MD Blake Ng Work Phone: 1(636)[address]01-03-2024 09:59-0500 Systolic blood rixkvpeb684 mm[Hg]MD Blake Ng Work Phone: 1(493)[address]07-05-2023 09:33-0400 Body sptqafhcgho05.8 [degF]MD Blake Ng Work Phone: 1(923)[address]07-05-2023 09:33-0400 Body sugbmi42.89 kgMD Blake Ng Work Phone: 1(057)[address] [place], [place] 3207307-05-2023 09:33-0400 Diastolic blood cukvvtog33 mm[Hg]MD Blake Ng Work Phone: 1(148)[address]07-05-2023 09:33-0400 Heart rate79 /minMD Blake Ng Work Phone: 1(811)954-[address] [place], [place] 0544207-05-2023 09:33-0400 Respiratory rate18 /minMD Blake Ng Work Phone: 1(620)[address]07-05-2023 09:33-0400 SaO2% (BldA) [Mass fraction]98 %MD Blake Ng Work Phone: 1(042)32371 [address]07-05-2023 09:33-0400 Systolic blood asdralom044 mm[Hg]MD Blake Ng Work Phone: 1(963)[address] [place], [place] 7263904-03-2023 12:54-0400 Body maxnhdgynfs29.1 [degF]MD Blake Ng Work Phone: 1(339)[address]04-03-2023 12:54-0400 Body gypucl62.52 kgMD Blake Ng Work Phone: 1(276)[address]04-03-2023 12:54-0400 Diastolic blood stywfowa28 mm[Hg]MD Blake Ng Work Phone: 1(400)[address]04-03-2023 12:54-0400 Heart rate85 /minMD Blake Ng Work Phone: 1(615)[address]04-03-2023 12:54-0400 Respiratory rate18 /minMD Blake Ng Work Phone: 1(801)[address]04-03-2023 12:54-0400 SaO2% (BldA) [Mass fraction]97 %MD Blake Ng Work Phone: 1(445)[address]04-03-2023 12:54-0400 Systolic blood cmqegeaj874 mm[Hg]MD Blake Ng Work Phone: 1(027)[address]02-01-2023 09:42-0500 Body jccfutfhwjj57.8 [degF]MD Blake Ng Work Phone: 1(279)[address]02-01-2023 09:42-0500 Body .2 kgMD Blake Ng Work Phone: 1(524)[address]02-01-2023 09:42-0500 Diastolic blood gfshvyzg81 mm[Hg]MD Blake Ng Work Phone: 1(522)[address]02-01-2023 09:42-0500 Heart rate86 /minMD Blake Ng Work Phone: 1(918)[address]02-01-2023 09:42-0500 Respiratory rate18 /minMD Blake Patrickerejerome Work Phone: 1(632)[address]371 [address]02-01-2023 09:42-0500 SaO2% (BldA) [Mass fraction]99 %MD Blake Ng Work Phone: 1(842)[address]02-01-2023 09:42-0500 Systolic blood yxmouruu106 mm[Hg]MD Blake Ng Work Phone: 1(855)[address]12-05-2022 08:50-0500 Diastolic blood pemdqfdv94 mm[Hg]MD Blake Ng Work Phone: 1(564)[address]12-05-2022 08:50-0500 Heart rate91 /minMD Blake Ng Work Phone: 1(778)[address]12-05-2022 08:50-0500 Respiratory rate16 /minMD Blake Ng Work Phone: 1(046)[address]12-05-2022 08:50-0500 SaO2% (BldA) [Mass fraction]96 %MD Blake Ng Work Phone: 1(376)[address]12-05-2022 08:50-0500 Systolic blood zvzazvnt698 mm[Hg]MD Blake Ng Work Phone: 1(406)[address]12-05-2022 07:17-0500 Body mdarwh431.96 cmMD Blake Ng Work Phone: 1(851)491-[address] [place], [place] 0544212-05-2022 07:17-0500 Body mass index (BMI) [Ratio]26.6 kg/m2MD Blake Ng Work Phone: 1(813)[address]12-05-2022 07:17-0500 Body .1 kgMD Blake Ng Work Phone: 1(788)[address]12-05-2022 06:05-0500 Body xfnroamxxog97 [degF]MD Blake Ng Work Phone: 1(886)[address] [place], [place] 3207311-17-2022 13:38-0500 Body .96 cmMD Blake Ng Work Phone: 1(025)[address] [place], [place] 3207311-17-2022 09:42-0500 Body tmdfoo296.96 cmMD Blake Ng Work Phone: 1(841)[address] [place], [place] 3207311-17-2022 09:42-0500 Body xigkzxesuet32 [degF]MD Blake Ng Work Phone: 1(965)[address]11-17-2022 09:42-0500 Body wkvgty93.8 kgMD Blake Ng Work Phone: 1(100)[address] [place], [place] 3207311-17-2022 09:42-0500 Diastolic blood htvglbdi46 mm[Hg]MD Blake Ng Work Phone: 1(392)[address]11-17-2022 09:42-0500 Heart rate81 /minMD Blake Ng Work Phone: 1(002)[address]11-17-2022 09:42-0500 Respiratory rate18 /minMD Blake Ng Work Phone: 1(463)[address]11-17-2022 09:42-0500 SaO2% (BldA) [Mass fraction]98 %MD Blake Ng Work Phone: 1(096)[address]11-17-2022 09:42-0500 Systolic blood rribbkpg418 mm[Hg]MD Blake Ng Work Phone: [facility]11-04-2022 10:35-0400 Blood Pressure LocationPatricgurvinder JENSEN [facility]11-04-2022 10:35-0400Diastolic blood mudzwqym68 mm[Hg]Jermaine JENSEN [facility]11-04-2022 10:35-0400Heart rate56 /minPatrick JENSEN [facility]11-04-2022 10:35-0400Respiratory rate16 /minPatrick JENSEN [facility]11-04-2022 10:35-0400Systolic blood xtsdwebp618 mm[Hg]Jermaine JENSEN [facility]07-15-2022 08:14-0400Blood Pressure LocationPatricgurvinder JENSEN [facility] 07-15-2022 08:14-0400Diastolic blood opflyrgp47 mm[Hg] Jermaine JENSEN [facility] 07-15-2022 08:14-0400Heart rate80 /minPatrick JENSEN [facility] 07-15-2022 08:14-0400Respiratory rate16 /minPatrick JENSEN [facility] 07-15-2022 08:14-0400Systolic blood mm[Hg] Jermaine JENSEN [facility] Norma Encounters Encounter DateEncounter TypeCare ProviderFacilityStart: 04-13-2025 End: 01-38-4993nbtquzcszuESXYVM [facility] Start: 03-19-2025 End: 15-13-7455gwjebweahjGCRDEUK [facility] Campustart: 03-11-2025 End: 30-84-2095ilhszegxttOnke Naderer MD Work Phone: [facility] Work Phone: Start: 03-11-2025 End: 17-09-9868Bjuxxjz encounter procedureBlake Ng MD-[facility] Work Phone: Start: 51-44-6623Hyqkqwnska and management of inpatientGEORGE [facility] Centertart: 02-23-2025 Evaluation and management of inpatientKYU CHUSheltering Arms Hospitaltart: 96-14-1076Zdfcbhwjar and management of inpatientLATINA [facility] Hospitaltart: 15-85-1003Tpaictslas and management of inpatientLAChillicothe Hospitaltart: 02-21-2025 Evaluation and management of inpatientLATINA [facility]: 02-20-2025 End: 64-17-2024Avwrkfnrsw and management of inpatientMARIAM DIABFostoria City Hospitaltart: 85-82-3488Pmz-patient / Non-visitMarrose Saez MD- [facility] Work Phone: Start: 02-03-2025 End: 70-85-4349Vxadwh flowsheetBlake Ng MD Work Phone: NONJ CW FMStart: 02-03-2025 End: 30-95-4137Ahykvg flowsheetBlake Ng MD Work Phone: noms CWM FMStart: 02-03-2025 End: 75-79-6582Ltbers outpatient visit 25 minutesBlake Ng MD Work Phone: [facility] CWM FMComment on above:Type 2 diabetes mellitus with hyperglycemia, with long-term current use of insulin (HCC) (Primary Dx); Benign essential hypertension ; BPH without urinary obstruction; Peptic ulcer disease; Renal calculiStart: 02-03-2025 End: 39-86-5490dkrmglnnurFVUV NADERERNot AvailableStart: 01-31-2025 End: 55-91-0014Auihsefxs Result EncounterBlake Ng MD Work Phone: noms External Department UnsolicitedStart: 01-31-2025 End: 05-82-1568Gsfzlozsy Result EncounterBlake Ng MD Work Phone: [facility] External Department UnsolicitedStart: 01-30-2025 End: 44-33-9164Fvgumbzag Result EncounterGeneric External Data ProviderNOMS External Department UnsolicitedStart: 01-30-2025 End: 24-24-0783Ubhfyzyhx Result EncounterGeneric External Data ProviderNOMS External Department UnsolicitedStart: 01-26-2025 End: [id number] flowsheetSteven A Rusher DPM Work Phone: [facility] [place] [facility]Start: 01-26-2025 End: 82-04-6228Igctjg flowsheetSteven A Rusher DPM Work Phone: [facility] [place] [facility]ryStart: 01-26-2025 End: 54-14-9789Xeacgyb encounter procedureSteven A Rusher DPM Work Phone: [facility] [place] PodiatryComment on above:Dermatophytosis of nail (Primary Dx); Dystrophic nail; Diabetic polyneuropathy associated with type 2 diabetes mellitus (HCC); Encounter for long-term (current) use of insulin (HCC)Start: 01-26-2025 End: 09-68-9104bepytdgaarVHVGDT Florecita NGUYENNot AvailableStart: 01-19-2025 End: 31-42-7705siokhhvryoGUYBPO [facility] Start: 01-19-2025 End: 73-59-5170Tnoiinrnr for preprocedural cardiovascular examinationGEMorrow County Hospitaltart: 01-12-2025 End: 97-47-5192Jocrcsocv Result EncounterBlake Ng MD Work Phone: noms External Department UnsolicitedStart: 01-12-2025 End: 79-36-8003Glexqpbdz Result EncounterBlake Ng MD Work Phone: noms External Department UnsolicitedStart: 01-08-2025 ambulatoryPatrick R WATERSFacility:CD:[id number]: 01-02-2025 End: 96-42-1469Fsgzox flowsCliff Ng MD Work Phone: noms CWM FMStart: 01-02-2025 End: 44-20-3095Zphofl Jaymie Ng MD Work Phone: NOMS CWM FMStart: 01-02-2025 End: 46-04-7610Bamsxf outpatient visit 25 minutesBlake Ng MD Work Phone: noms CWM FMComment on above:Preoperative clearance (Primary Dx); Other chest pain; Abnormal EKG; Renal calculi; Thrombocytopenia; Type 2 diabetes mellitus with hyperglycemia, with long-term current use of insulin (HCC); Benign essential hypertensionStart: 01-02-2025 End: 93-98-8238Immbnmecozeg stateBlake Ng MD Work Phone: NOMS HealthcareStart: 01-02-2025 End: 84-84-1565wqnqqanzeaEDRR NADERERNot AvailableStart: 12-30-2024 End: 75-03-1312Bmtiyigij Result EncounterGeneric External Data ProviderNOMS External Department UnsolicitedStart: 12-30-2024 End: 91-26-8741Monysadox Result EncounterGeneric External Data ProviderNOMS External Department UnsolicitedStart: 12-29-2024 End: 08-17-9957fverrwykexRaskjlj R WATERSFacility:FTMCStart: 12-29-2024 End: 58-84-5346ncoxzwpcydZysmtim R WATERSFacility:EU BellevueStart: 12-29-2024 End: 07-76-4514Zmqdadx encounter Benjy JENSEN [facility] start: 12-24-2024 End: 61-60-8747Dqofzvr encounter procedureJermaine Jensen MD-[facility] Work Phone: Start: 12-24-2024 End: 06-93-5731gfqjtmmbwfSpsv Naderer MD Work Phone: [facility] Work Phone: Start: 11-04-2024 End: 75-42-3717Yrvddhg [facility] Work Phone: Start: 11-04-2024 End: 11-67-4448zfrqdjlzdoSzusrbo [facility] Work Phone: Start: 10-20-2024 End: 90-98-3939Hrrgrvb encounter Prashant Ferguson DO Work Phone: NOMT NB ORTHOComment on above:Left elbow pain (Primary Dx)Start: 10-20-2024 End: 35-51-7573tflmkepotmOZTPX A BROWNNot AvailableStart: 10-20-2024 End: 17-54-3287zomsgxuwhkZQZQC A BROWNNot AvailableStart: 10-13-2024 End: 13-84-2198Xzlbvq flowsheetSteven Florecita Powell DPM Work Phone: NO[facility] PODIATRYStart: 10-13-2024 End: 89-18-3862Fqylic flowsheetSteven A Patrickher DPM Work Phone: noms PODIATRYStart: 10-13-2024 End: 27-48-7267Dnofyfw encounter procedureSteven A Patrickher DPM Work Phone: noms PODIATRYComment on above:Dermatophytosis of nail (Primary Dx); Dystrophic nail; Diabetic polyneuropathy associated with type 2 diabetes mellitus ([facility]); Encounter for long-term (current) use of insulin ([facility])Start: 10-13-2024 End: 20-38-0035drgcvaamqaWEUWED A RUSHERNot AvailableStart: 08-07-2024 End: 46-86-6968Afyaqw OnlyBlake Ng MD Work Phone: noms CWM FMComment on above:Hypomagnesemia (Primary Dx)Start: 08-06-2024 End: 83-88-0451Cbdvvygh Result EncounterBlake Ng MD Work Phone: noms External Department UnsolicitedStart: 08-06-2024 End: 29-77-7127Bhifyyen Result EncounterBlake Ng MD Work Phone: noms External Department UnsolicitedStart: 08-06-2024 End: 34-47-0523Cnonykp encounter procedureBlake Ng MD Work Phone: [facility] [place] Work Phone: Start: 08-06-2024 End: 36-11-5697eamezjdxnfErxu Naderer MD Work Phone: [facility] Work Phone: Start: 08-05-2024 End: 32-61-4033Hzrtrs Jaymie Ng MD Work Phone: noms CWM FMStart: 08-05-2024 End: 74-73-5024Romzlb Jaymie Ng MD Work Phone: noms CWM FMStart: 08-05-2024 End: 49-98-7282Vkktmk outpatient visit 15 minutesBlake Ng MD Work Phone: noms [facility] FMComment on above:Medicare annual wellness visit, subsequent (Primary Dx); Nocturnal leg cramps; Pruritus; Type 2 diabetes mellitus with hyperglycemia, with long-term current use of insulin ([facility]); Benign essential hypertension ([facility]); Encounter for long-term current use of medicationStart: 08-05-2024 End: 22-47-8960Mrlkrwy encounter procedureMarleticia Ng MD Work Phone: [facility] Work Phone: Start: 08-05-2024 End: 83-11-7114navigalpbjXJNR NADERERNot AvailableStart: 07-21-2024 End: 94-84-7101Gatqpw flowsheetEmebony Mcmahon MD Work Phone: noms SWS DERMStart: 07-21-2024 End: 40-00-3909Xwuoli flowsheetSymone Mcmahon MD Work Phone: noms [facility] DERMStart: 07-21-2024 End: 55-75-5506Qftynz outpatient visit 15 minutesEmebony Mcmahon MD Work Phone: noms [facility] DERMComment on above:Melanocytic nevus of trunk (Primary Dx); Seborrheic keratosis; Lentigines; Actinic keratosis; Capillary angioma; Melanocytic nevus of face, other location; Epidermal inclusion cyst; Nummular eczemaStart: 07-21-2024 End: 69-39-3773gongpcptmjNYUEA Florecita ALDANAINot AvailableStart: 07-07-2024 End: 68-10-6117Vmkooi flowsheetSteven A Rusher DPM Work Phone: noms PODIATRYStart: 07-07-2024 End: 91-81-4756Cupppb flowsheetSteven A Rusher DPM Work Phone: noms PODIATRYStart: 07-07-2024 End: 48-13-0181Aibshcv encounter procedureSteven A Rusher DPM Work Phone: noms PODIATRYComment on above:Dermatophytosis of nail (Primary Dx); Dystrophic nail; Diabetic polyneuropathy associated with type 2 diabetes mellitus ([facility]/HCC); 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 ([facility]/HCC); Encounter for long-term (current) use of insulin ([facility])Start: 07-07-2024 End: 34-27-3211nfcmwzzqorDVQNVW A RUSHERNot AvailableStart: 06-20-2024 End: 40-91-1898Jgbcgf Jaymie Ng MD Work Phone: noms CWM FMStart: 06-20-2024 End: 73-07-7978Djypsfyecenia Ng MD Work Phone: noms CWM FMStart: 06-20-2024 End: 44-80-3412Glpnup outpatient visit 15 minutesBlake Ng MD Work Phone: noms CWM FMComment on above:Acute non-recurrent maxillary sinusitis (Primary Dx); Type 2 diabetes mellitus with hyperglycemia, with long-term current use of insulin ([facility])Start: 06-20-2024 End: 70-66-6720bvuzzqgvceHJSC NADERERNot AvailableStart: 05-15-2024 End: 17-14-0766Dubeva flowsheetSteven A Rusher DPM Work Phone: noms PODIATRYStart: 05-15-2024 End: 49-80-4275Ioxreh flowsheetSteven A Rusher DPM Work Phone: noms PODIATRYStart: 05-15-2024 End: 55-04-4998ykcnvkivmzFAZFNA A RUSHERNot AvailableStart: 05-15-2024 End: 74-61-0232Bojhup outpatient visit 15 minutesSteven A Rusher DPM Work Phone: noms PODIATRYComment on above: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) (Primary Dx); Diabetic polyneuropathy associated with type 2 diabetes mellitus (CMS/HCC); Swelling of left foot; Encounter for long-term (current) use of insulin (CMS/HCC)Start: 05-15-2024 End: 92-03-4846ttsvixevajJQUOCZ A RUSHERNot AvailableStart: 04-21-2024 End: 57-19-0252Repauxojc encounterSteven A Rusher DPM Work Phone: noms PODIATRYComment on above:Advice OnlyStart: 04-14-2024 End: 21-36-7205cuxtxecnzxXEIREQ A RUSHERNot AvailableStart: 04-14-2024 End: 16-93-2484zrhuailmepQSZQWK A RUSHERNot AvailableStart: 04-14-2024 End: 03-24-6672Skjxkc outpatient visit 25 minutesSteven A Rusher DPM Work Phone: noms PODIATRYComment on above: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) (Primary Dx); Diabetic polyneuropathy associated with type 2 diabetes mellitus (CMS/HCC); Swelling of left foot; Encounter for long-term (current) use of insulin (CMS/HCC)Start: 04-14-2024 End: 71-47-8035Cdjknh flowsheetSteven A Rusher DPM Work Phone: noms PODIATRYStart: 04-14-2024 End: 71-14-0849Iuxuhx flowsheetSteven A Rusher DPM Work Phone: noms PODIATRYStart: 04-06-2024 End: 96-03-2528ZejxbjDtqa Naderer MD Work Phone: noms [facility] FMComment on above:Type 2 diabetes mellitus with hyperglycemia, with long-term current use of insulin (CMS/HCC) (Primary Dx) Start: 04-02-2024 End: 53-73-7622Lewroy flowsheetSteven A Rusher DPM Work Phone: noms PODIATRYStart: 04-02-2024 End: 00-92-1916Hyvwxx flowsheetSteven A Rusher DPM Work Phone: NOMS PODIATRYStart: 04-02-2024 End: 68-28-5197Nvsophd encounter procedureSteven A Rusher DPM Work Phone: NOMS PODIATRYComment on above:Diabetic polyneuropathy associated with type 2 diabetes mellitus (CMS/HCC) (Primary Dx); Encounter for long-term (current) use of insulin (CMS/HCC)Start: 04-02-2024 End: 51-39-2907ccjyarvtbvBFMXNQ A RUSHERNot AvailableStart: 04-01-2024 End: 49-19-8482Zmnylq flowsheetSteven A Rusher DPM Work Phone: NOMS PODIATRYStart: 04-01-2024 End: 43-08-6944Mqpzat flowsheetSteven A Rusher DPM Work Phone: [facility] PODIATRYStart: 03-26-2024 End: 30-84-8962Qtzjlo follow up visit related to original pxSteven A Rusher DPM Work Phone: NOMS PODIATRYComment on above:Diabetic polyneuropathy associated with type 2 diabetes mellitus (CMS/HCC) (Primary Dx); Encounter for long-term (current) use of insulin (CMS/HCC)Start: 03-26-2024 End: 62-55-5249mgczuwzeraSRXFIU A RUSHERNot AvailableStart: 03-26-2024 End: 44-76-9004Jaubvl flowsheetSteven A Rusher DPM Work Phone: NOMS PODIATRYStart: 03-26-2024 End: 55-93-2586Ynzmwk flowsheetSteven A Rusher DPM Work Phone: N[facility]S PODIATRYStart: 03-24-2024 End: 44-94-7482Yzuuuq flowsheetSteven A Rusher DPM Work Phone: N[facility]S PODIATRYStart: 03-24-2024 End: 05-00-8777Yazesq flowsheetSteven A Rusher DPM Work Phone: noms PODIATRYStart: 03-24-2024 End: 49-13-4734Teijlqc encounter procedureSteven A Rusher DPM Work Phone: noms PODIATRYComment on above:Dermatophytosis of nail (Primary Dx); Dystrophic nail; Diabetic polyneuropathy associated with type 2 diabetes mellitus ([facility]/HCC); Encounter for long-term (current) use of insulin ([facility])Start: 03-24-2024 End: 34-87-9999hryxamyigfDGGRRS A PATRICKHERNot AvailableStart: 01-25-2024 End: 98-45-3915Acvrxth encounter procedureMD Blake Ng Work Phone: [facility] [place] Work Phone: Start: 01-25-2024 End: 96-93-2516mpouxoyvzxKJ Marc Naderer Work Phone: [facility] Work Phone: Start: 01-10-2024 End: 48-87-1789qjdvfropfbBV Marc Naderer Work Phone: [facility] Work Phone: Start: 01-10-2024 End: 13-50-2220Ifivhnc encounter procedureMD Blake Ng Work Phone: [facility] Work Phone: Start: 52-17-7338Anhvjsalfd RecurringMD Blake Ng Work Phone: [facility] Acute Work Phone: Start: 12-28-2023 End: 15-94-4845Orttsbt encounter procedurePasadia JENSEN [facility] start: 12-19-2023 End: 53-59-0231vijncuaushWV Blake Patrickerer Work Phone: [facility] Work Phone: Start: 12-19-2023 End: 67-37-3323Yeahdvo encounter procedureMD Blake Contrerasr Work Phone: [facility]XRay [facility] [place] Work Phone: Start: 09-18-2023 End: 57-41-5407irquvtvzouFU Blake Patrickerer Work Phone: [facility] Work Phone: Start: 09-18-2023 End: 71-90-3921Qwwrrea encounter procedureMD Blake Patrickerer Work Phone: [facility] Work Phone: Start: 14-49-6450Xxnxsvveyu RecurringMD Blake Contrerasr Work Phone: [facility] Acute Work Phone: Start: 08-22-2023 End: 29-48-9405cvrilquktxAB Blake Patrickerer Work Phone: [facility] Work Phone: Start: 08-22-2023 End: 90-32-5814Nsugnwn encounter procedureMD Blake Patrickerer Work Phone: [facility]-Electrodiagnostics Work Phone: Start: 75-67-9989Hxcjgm flowsheetEmebony Mcmahon MD Work Phone: noms SWS DERMStart: 02-20-3806Gocifq flowsheetEmily Florecita Mcmahon MD Work Phone: NOOJ SWS DERMStart: 07-19-2023 End: 13-74-2660Bfkovv outpatient visit 25 minutesEmebony Mcmahon MD Work Phone: NOMS SWS DERMComment on above:Nummular eczema (Primary Dx); Seborrheic keratosis; Melanocytic nevus of trunk; Lentigines; Angioma of skin; History of actinic keratosesStart: 03-95-9320Qllvqdgbvt RecurringMD Blake Ng Work Phone: [facility] Work Phone: Start: 12-13-2022 End: 24-98-8715szcjwqupoxJG Blake Ng Work Phone: [facility] Work Phone: Start: 12-13-2022 End: 13-86-3069Gfmupfljvm RecurringMD Blake Ng Work Phone: [facility] Work Phone: Start: 12-05-2022 End: 06-02-1345pogxlqtakdSK Blake Ng Work Phone: [facility] Work Phone: Start: 12-05-2022 End: 37-67-1208Tftqyzf encounter procedureMD Blake Ng Work Phone: [facility] [place] Work Phone: Start: 09-11-2022 End: 63-53-1537smoaojrqsuPA Blake Patrickerejerome Work Phone: [facility] Work Phone: Start: 09-11-2022 End: 03-42-0925Wzygyupxgc RecurringMD Blake Ng Work Phone: [facility] Work Phone: Start: 07-27-2022 End: 52-98-6966szfvhnmxdbKK BLAKE CONTRERASRFacility:P3Swxsg: 07-12-2022 End: 64-48-9473yhjjadcyqbUG Blake Ng Work Phone: [facility] Work Phone: Start: 07-12-2022 End: 69-48-5149Jskzmwkoae RecurringMD Blake Naderer Work Phone: [facility] Work Phone: Start: 05-15-2022 End: 56-85-6208Jcdbguqjf to same day surgery centerMD Blake Naderer Work Phone: [facility] Main CampusStart: 05-15-2022 End: 80-48-5320rgzymgjtgxNI Blake Naderer Work Phone: [facility] Work Phone: Start: 05-08-2022 End: 84-32-8308fsyvgwsihnQW Blake Naderer Work Phone: [facility] Work Phone: Start: 05-08-2022 End: 61-47-2052Pstmglc encounter procedureMD Blake Patrickerer Work Phone: [facility] Hdo-Ktz-Mietixyq Testing Start: 99-21-0327Ewmwruskra RecurringMD Blake Naderer Work Phone: [facility]-Cancer CenterStart: 04-27-2022 End: 30-80-0261ysfrkqvvomSR Blake Naderer Work Phone: [facility] Work Phone: Start: 04-27-2022 End: 24-64-2436Zaixffotfm RecurringMD Blake Naderer Work Phone: [facility]-Cancer CenterStart: 04-14-2022 End: 99-95-1813Ddwfmkg encounter procedurePasadia JENSEN [facility] start: 03-28-2022 End: 00-90-2794Dmjollf encounter procedurePasadia JENSEN [facility] Start: 03-01-2022 End: 77-03-0382Qsvovux encounter procedureMD Jermaine Jensen Work Phone: [facility]-MRI Main CampusStart: 01-17-2022 End: 74-08-5359bcisimaemrNS BLAKE Bernabe NADERERFacility:D4Gekzz: 12-23-2021 End: 84-26-6305Hmlbvcb encounter procedurePasadia JENSEN [facility] start: 12-16-2021 End: 08-85-7001lbvvwzwmqwOW JERMAINE MIKEY .Facility:X5Pvoww: 10-25-2021 End: 55-80-7239Kgfbuan encounter procedureHaroldo Sebastian MD Work Phone: OphthalmologyComment on above:Iris nevus, left (Primary Dx); Dislocation of intraocular lens, sequelaStart: 09-10-2017 End: 75-51-5167QgkphsvawiAMRQFTP PHYSICIANFacility:RUST Procedures DateProcedureProcedure DetailPerforming ClinicianStart: 61-07-0691CLY CBC WITH AUTO DIFFBlake Ng MD Work Phone: Start: 07-81-4947HL ECHO DOPPLER COMPLETEGeneric External Data ProviderStart: 97-70-7774DD CARMEN PERF SPECT REST STRBlake Ng MD Work Phone: Start: 45-68-6245ZU ABDOMEN/PELVIS WO CONTGeneric External Data ProviderStart: 18-41-7827JWE BASIC METABOLIC PANELGeneric External Data ProviderStart: 48-73-7949TNM 12-LEADGeneric External Data ProviderStart: 26-06-4304Oadgbw abdominal X-rayBlake Ng MD Work Phone: Start: 67-03-2844Ipygm elbow complete minimum 3 views Jaycob Ferguson DO Work Phone: Start: 71-14-6009Vtlqd albumin quantitativeMarleticia Ng MD Work Phone: Start: 79-55-6094Zcexw metabolic panel calcium total Blake Ng MD Work Phone: Start: 98-39-0775ILTWNBKADGJ SKIN LESIONEmebony Mcmahon MD Work Phone: Start: 88-44-7615Ydmlg foot complete minimum 3 views Isabella Powell DPM Work Phone: Start: 83-69-8519Nsoha foot complete minimum 3 views Isabella Powell DPM Work Phone: Start: 29-18-5421Txpuivredq radiography of abdomenMD Blake Ng Work Phone: Start: 80-50-0603Txxuydexlzto myocardial perfusion stress studyMD Blake Ng Work Phone: Start: 12-25-2022H/O: artificial jointPresence of right artificial shoulder jointEmebony Mcmahon MD Work Phone: Start: 54-98-1427Jdwyopqnir radiography of abdomenMD Blake Ng Work Phone: Start: 18-87-5947Fofra beam external beam radiation therapyPaohiohealth [facility] AwayFind Start: 60-46-0109GW prostate wo/w conMD Blake Ng Work Phone: Start: 66-69-6732Xyekekowm of substanceMD Blake Ng Work Phone: Start: 31-76-4549ZoylbnpdqwrGS Blake Ng Work Phone: Start: 69-72-7637GTC-US fusion guided transperineal biopsy of prostatePatrick JENSEN Start: 51-04-4531RW prostate wo/w conMD Blake Ng Work Phone: Start: 83-47-2659SDR screeningDR BLAKE CODYomment on above:Performed By: #### PSAD #### [facility] [address] [place] [address] Dr. Sary JoelStart: 87-97-8612Xxg us dx ant sgm us immersion b-scan/hr biom Haroldo Sebastian MD Work Phone: Start: 10-25-2021 End: 88-84-5748Hevvt ocular photog w/i&r docwv medical progrAdelaida Sebastian MD Work Phone: Start: 53-70-8673Yepnanzamudp of shoulderPasadia JENSEN Comment on above:REVERSE RIGHT TOTAL SHOULDER ARTHROPLASTY, BICEP TENODESISStart: 98-20-6518NdhavbdpseuJrbtsna WATERS Comment on above:ESWL * 08/13/08, 08/27/18, 10/22/08, 11/26/08, * Left ESWLDissection tonsillectomy and adenoidectomy Jermaine JENSEN H/O: artificial jointPresence of right artificial shoulder jointBlake Ng MD Work Phone: knee arthroscopy witth meniscus repair 5Patricgurvinedr JENSEN Comment on above:leftOstectomy of calcaneus for spur Jermaine JENSEN Comment on above:THINKS IT WAS LEFTPlacement of stent Jermaine JENSEN Comment on above:Cysto, stent placement * 10/16/08, 08/10/08Removal of stentJermaine JENSEN Comment on above:Cysto, stent removal * 09/01/08Renal lithotripsyPaphyllisgurvinder MIKEY Comment on above:T6KeildbvbkkizoTwpavcz JENSEN Plan of Treatment DateCare ActivityDetailAuthorStart: 74-99-5774Uccahdcv screeningDiabetes: Retinopathy ScreeningNONJ HealthcareStart: 08-11-2025 End: 38-09-6755Zebjeij encounter ayixpbjzp99/03/2026 11:00 AM EST Office Visit [facility] [address] [place] [address] Blake Ng MD [address] [place] [address] NOMDamien ANN FMStart: 32-14-2464Vezfq screening for proteinDiabetes: Urine Protein ScreeningNONJ HealthcareStart: 02-25-2026Medicare Annual Wellness (AWV) Medicare Annual Wellness (AWV)NOM HealthcareStart: 08-04-2025 End: 93-55-9183Ojfxdpb encounter fynmtxkua93/24/2026 10:20 AM EST Office Visit [facility] [address] [place], [id number] Symone Mcmahon MD [address] [place] [address] NOMDamien López DermatologyStart: 08-03-2025 Hemoglobin A1c measurementDiabetes: Hemoglobin Y4LRRAB HealthcareStart: 07-28-2025 End: 73-55-2118Awgwftm encounter procedureNONJ SWS DERMStart: 04-28-2025 End: 98-82-8090Sbbekoa encounter uagbyupax17/18/2025 9:15 AM EST Procedure Visit [facility] [address] [place] [phone] Isabella Powell DPM [address] [place] [address] NOMDamien [facility] PodiatryStart: 95-43-0850Tlulajijt vaccination Influenza Vaccine (#1)NOMS HealthcareStart: 15-51-6136Vwsamyueul A1c measurement Diabetes: Hemoglobin Q3PGXNO HealthcareStart: 02-03-2025 End: 92-33-0657Jpvbowq encounter procedureNONJ CWM FMComment on above:Arrived Start: 01-26-2025 End: 50-10-7100Cqgybbw encounter procedureNOMS FH PODIATRYComment on above: ArrivedStart: 01-02-2025 End: 73-60-7224VX Heart Perfusion W single state of exerciseStress test with myocardial perfusion Cardiac Nuclear Medicine Routine Other chest pain Abnormal EKG Expected: 01/02/2025 (Approximate), Expires: 01/02/2027NONJ Healthcare Work Phone: Comment on above:Expected: 01/02/2025 (Approximate), Expires: 01/02/2027Start: 01-02-2025 End: 99-78-4382Uqemxnj encounter ksgjqkabg11/25/2025 11:45 AM EDT Office Visit [facility] [address] [place] [phone] Blake Ng MD [address] [place] [address] ArrivedNONJ CWM FMComment on above:ArrivedStart: 10-13-2024 End: 45-70-8896Kswtlzq encounter procedureNOMS FH PODIATRYComment on above: ArrivedStart: 84-39-2659Gmbbz screening for proteinDiabetes: Urine Protein ScreeningNONJ HealthcareStart: 64-02-9357PswoxneftHolzer Health Systemtart: 08-05-2024 End: 02-87-7914Blyqf metabolic 1998 panel - Serum or PlasmaBasic metabolic panel Lab Routine Encounter for long-term current use of medication Expected: 2024 (Approximate), Expires: 08/05/2025NONJ HealthcareComment on above:Expected: 08/05/2024 (Approximate), Expires: 08/05/2025Start: 08-05-2024 End: 17-83-6061Inrzagalcb A1c/Hemoglobin.total in BloodHemoglobin A1c Lab Routine Type 2 diabetes mellitus with hyperglycemia, with long-term current use of insulin ([facility]) Expected: 08/05/2024 (Approximate), Expires: 08/05/2025[facility] Work Phone: Comment on above:Expected: 08/05/2024 (Approximate), Expires: 08/05/2025Start: 08-05-2024 End: 15-04-5042Ekekbtsdo [Mass/volume] in Serum or PlasmaMagnesium Lab Routine Encounter for long-term current use of medication Expected: 08/05/2024 (Approx imate), Expires: 08/05/2025NOMS HealthcareComment on above:Expected: 08/05/2024 (Approximate), Expires: 08/05/2025Start: 08-05-2024 End: 95-80-0603Hkkoexgqpksz/Creatinine panel in random UrineMicroalbumin / creatinine, urine ratio Lab Routine Type 2 diabetes mellitus with hyperglycemia, with long-term current use of insulin ([facility]) Expected: 08/05/2024 (Approximate), Expires: 08/05/2025NOMS HealthcareComment on above:Expected: 08/05/2024 (Approximate), Expires: 08/05/2025Start: 08-05-2024 End: 25-94-8038Hzaezup encounter procedureNOMS CWM FMComment on above:Arrived Start: 92-64-2724Dgouwfumzo A1c measurementDiabetes: Hemoglobin G5JIRRD HealthcareStart: 07-21-2024 End: 68-75-9062Fxmyayl encounter procedureNOMS SWS DERMComment on above:Arrived Start: 98-86-3049Txtuswim screeningDiabetes: Retinopathy ScreeningNONJ HealthcareStart: 07-07-2024 End: 34-54-3138Qqdmegw encounter procedureNOMS FH PODIATRYComment on above: ArrivedStart: 06-20-2024 End: 51-26-0686Nqespbw encounter ogxqvhcvf75/10/2025 9:15 AM EST Office Visit [facility] [address] [place] [phone] Blake Ng MD [address] [place] [phone] NOMDamien ANN FMStart: 05-15-2024 End: 83-38-9796Drxrnrs encounter procedureNOMS PODIATRYComment on above: ArrivedStart: 49-85-3657Wckrokonrv A1c measurementDiabetes: Hemoglobin G1JVRTU HealthcareStart: 04-24-2024 End: 11-86-7510Amgwbew encounter ccatggnpx24/14/2024 9:30 AM EST Office Visit [facility] [address] [place] [address] Isabella Powell DPM [address] [place] [address] NOMS PODIATRYStart: 04-23-2024 End: 12-47-6791Yrypkyw encounter vickifurq52/13/2024 11:15 AM EST Office Visit [facility] [address] [place] [address] Isabella Powell DPM [address] [place] [address] [facility]: 04-02-2024 End: [id number] encounter wcuufrjfb23/23/2024 1:30 PM EDT Office Visit [facility] [address] [place] [address] Isabella Powell DPM [address] [place] [address] ArrivedNOSAINT [facility] PODIATRYComment on above:ArrivedStart: 03-26-2024 End: 89-63-5512Eymszho encounter igdpkqmmb73/16/2024 2:30 PM EDT Office Visit [facility] [address] [place] [address] Isabella Powell DPHeladio [address] [place] [address] ArrivedNOMS PODIATRYComment on above:ArrivedStart: 03-24-2024 End: 70-46-3212Dbtaouq encounter tadekjquv05/14/2024 8:30 AM EDT Procedure Visit [facility] [address] [place] [id number] Isabella Powell DPM [address] [place] [address] ArrivedNOMS PODIATRYComment on above:ArrivedStart: 49-14-2550Rmiuewqqi vaccinationInfluenza Vaccine (#1)[facility] HealthcareStart: 46-94-4840Ifjkcpejmusr myocardial perfusion stress studyNM carmen perf SPECT rest & [facility] Cent[facility]art: 30-52-1308HWSYX Heart perfusion at rest and W stress and W radionuclide [facility]art: 08-22-2023 End: 74-67-0971Sqxgflx encounter dhyllomje26/13/2024 11:00 AM EDT Procedure Visit [facility] [address] [place] [address] Isabella Powell DPM [address] [place] [address] [facility] PODIATRYStart: 07-19-2023 End: 65-72-7010Siqgkgy encounter medqbddug74/08/2024 9:45 AM EST Office Visit [facility] [address] [place] [address] Symone Mcmahon MD [address] [place], [place] [id number] ArrivedNOMS SWS DERMComment on above:ArrivedStart: 05-15-2022 End: 40-63-4215KozwsdveuHolzer Health Systemtart: 44-22-1692KmlxokwtzHolzer Health Systemtart: 08-35-6720VN Prostate WO and W contrast IV [facility] Work Phone: Start: 81-46-2339ZG prostate wo/w conMR prostate wo/w [facility] Hospitaltart: 72-83-7486Ttkizzmfg vaccination INFLUENZA (Season Ended)[facility]: 03-23-4923FFPUWKX DIRECTIVE DISCUSSIONADVANCE DIRECTIVE DISCUSSIONKettering Health Hamiltontart: 77-21-7049MQFDPYOI SCREENDIABETES SCREENKettering Health Hamiltontart: 17-60-1013Oqokkooyit A1c measurement Diabetes: Hemoglobin P6YVSYUSaint Luke's East HospitalStart: 36-03-3979OFGFRTSVX AGE 65 AND OVER WITH 5YR LOOKBACK (#1)PNEUMOVAX AGE 65 AND OVER WITH 5YR LOOKBACK (#1) [facility]: 31-82-7044OJLYYRPJ VACCINE (1 of 2)SHINGRIX VACCINE (1 of 2)[facility]: 76-05-1187Tddwm microalbumin profileDTAP,TDAP,TD (1 - Tdap)[facility]: 43-02-9678Qhevd screening for proteinDiabetes: Urine Protein ScreeningSaint Luke's East HospitalStart: 27-96-2518JKJSYEJZA C SCREENINGHEPATITIS C SCREENINGKettering Health Hamiltontart: 38-34-2061Pjwnw depression screening assessmentDEPRESSION SCREENINGKettering Health Hamiltontart: 67-67-5190Koviitbz screeningDiabetes: Retinopathy ScreeningSaint Luke's East HospitalStart: 41-49-5539NFSHE-19 VACCINE (#1)COVID-19 VACCINE (#1)[facility]ontart: 02-12-1946Medicare Annual Wellness (AWV)Medicare Annual Wellness (AWV)[facility] HealthcareComputed tomography for radiotherapy planningLicking Memorial HospitalGlucose measurement estimated from glycated hemoglobinLicking Memorial Hospital Hemoglobin A1c/Hemoglobin.total in BloodLicking Memorial HospitalMR Prostate WO and W contrast IVFGundersen St Joseph's [facility] and Clin[facility] Immunizations Immunization DateImmunizationNotesCare MuftdwhrIxlvxzor70-04-2140TLDJ-QVZ-2 (COVID-19) vaccine, mRNA, spike protein, LNP, PF, 50 mcg/0.5 mLSteven Rusher DPM Work Phone: [facility] HospitalEigmlptjab21-59-0587Gommoyur trivalent influenza vaccine, adjuvanted, preservative freeSteven Rusher DPM Work Phone: [facility] HospitalYxnlxwgfom65-26-4138zbubbpvic virus vaccine, unspecified formulationSteven Rusher DPM Work Phone: [facility]11-27-2023Influenza, Seasonal, Quadrivalent, AdjuvantedSymone Mcmahon MD Work Phone: [facility] HospitalEilxspfcks46-39-4441HJOL-EAU-6 (COVID-19) vaccine, mRNA, spike protein, LNP, PF, 50 mcg/0.5 mLSymone Mcmahon MD Work Phone: [facility] HospitalJyxztmfbdo18-06-9998gwvetlzcw virus vaccine, unspecified formulationSteven Rusher DPM Work Phone: [facility]10-19-2022COVID-19 mRNA Bivalent Booster (Pfizer)MD lBake Ng Work Phone: [facility] HospitalComment on above: Result Comment: 2022-12-29: KRM3657-66-4340dngdqoovt virus vaccine, unspecified formulationSymone Mcmahon MD Work Phone: [facility] HospitalJupqzfiwkd95-49-1864XIIGU-98 mRNA, Comirnaty (Pfizer)MD Blake Ng Work Phone: [facility] HospitalComment on above: Result Comment: 2022-12-29: HEU2347-64-4390kwzkaudtt virus vaccine, unspecified formulationPawilliamson arh hospitalgurvinder JENSEN [facility]09-22-2021Influenza, High-dose Seasonal, Quadrivalent, Preservative Free Symone Mcmahon MD Work Phone: [facility] HospitalSjtuowqmuq02-87-3949XUZJW-30 mRNA, Comirnaty (Pfizer)MD Blake Ng Work Phone: [facility]02-15-2021SARS-CoV-2 (COVID-19) mRNA BNT-162b2 vaxOrderDynamics [facility] 02-423573-51-7671HMPRI-15 Yazmin Aguirre (Pfizer)MD Blake Ng Work Phone: [facility]11-17-2020 pneumococcal polysaccharide vaccine, 23 Wilber Mcmahon MD Work Phone: [phone] [place], [place] [address]Knyduxxxjs01-85-5168nbzmfgzhg, injectable, quadrivalent, preservative freeSymone Mcmahon MD Work Phone: [phone] [place], [place] [address]Vdtfzmpwpd80-56-6110ijoexghup virus vaccine, unspecified formulationOrderDynamics [facility]09-15-2020Influenza, High-dose Seasonal, Quadrivalent, Preservative Free Symone Mcmahon MD Work Phone: [phone] [place], [place] [address]Ihahdzzxqp19-08-8101jakojilwd virus vaccine, unspecified [email or web address] [facility]10-16-2019pneumococcal conjugate vaccine, 13 Wilber Mcmahon MD Work Phone: [phone] [place], [place] [address]Swllymxyid06-00-8593Pwnueemz trivalent influenza vaccine, adjuvanted, preservative Bernarda Mcmahon MD Work Phone: [phone] [place], [place] [address]Fjdpzocuod82-16-8618jhjgdninn, high dose seasonal, preservative-freeSymone Mcmahon MD Work Phone: [phone] [place], [place] [address]Awzvzwfmhn12-45-3489uftjljouvhzz polysaccharide vaccine, 23 Wilber Mcmahon MD Work Phone: [phone] [place] [address]Pbrjqwylgl11-47-5435ounmxcshj virus vaccine, unspecified [email or web address] [facility]10-08-2018influenza, injectable, quadrivalent, preservative freeSymone Mcmahon MD Work Phone: [phone] [place], [place] [address]Smiuupohof50-67-2957mghqsvuux virus vaccine, unspecified [email or web address] [facility]10-11-2017influenza, high dose seasonal, preservative-freeEmebony Mcmahon MD Work Phone: [phone] [place], [place] [address]Brcgbtwyzu45-78-0626omhmfopzd virus vaccine, unspecified [email or web address] [facility]10-02-2017influenza, injectable, quadrivalent, preservative Bernarda Mcmahon MD Work Phone: [phone] [place], [place] [address]Mjjpvzfuvx00-00-5780bbefmrejg virus vaccine, unspecified [email or web address] [facility]10-20-2016influenza, high dose seasonal, preservative-freeEmebony Mcmahon MD Work Phone: [phone] [place], [place] [address]Tgamerzopu15-13-3466xbracvaof virus vaccine, unspecified [email or web address] [facility]09-14-2015influenza, high dose seasonal, preservative-freeEmebony Mcmahon MD Work Phone: [phone] [place], [place] [address]Xyaozlfbvh91-20-1175hpazyctdb virus vaccine, unspecified [email or web address] [facility]10-22-2014influenza, seasonal, injectableSymone Mcmahon MD Work Phone: [phone] [place], [place] [address]Zvylqjkmpp65-75-0914oinqpvjbjeaz polysaccharide vaccine, 23 valentEmicaryn Mcmahon MD Work Phone: [facility] HospitalNrlsitiyls80-80-1461efbehcfsu virus vaccine, unspecified formulationPasadia JENSEN [facility]12-09-2013influenza, seasonal, injectableEmebony Mcmahon MD Work Phone: [facility] Healthcare Payers DatePayer CategoryPayerPolicy [id number] [id number] Health InsuranceKETTERING [facility] AARP SUPPLEMENT [id number] 2013-Present [phone] [address] [place] [address] [id number] [id number]496-44-3894Qmkmtmf Health Insurance [id number] 2011MedicareMEDICARE MEDICARE A AND B [id number] 2010-Present [phone] [address] [address] [place] [address] [id number] 2011Medicare 1.2.840.0484[id number] [id number] 2.16840.1.620746.3.579.2.[id number] 2.840.1.459902.3.579.[id number] 2.840.1.032937.3.579.[id number] 2.840.1.565426.3.579.[id number] 2.840.1.134678.3.579.2.99[id number] 2..1.504735.3.579.2.2[id number] 2.840.1.376454.3.579.[id number] 2.840.1.834163.3.579.2.097755-56-0851Zazwgig4419935 2.840.1.096143.3.579.2.124267-78-6829Nrjbnib2510735 2..1.116372.3.579.2.643325-27-8672Aszchso5927283 2.840.1.281868.3.579.2.254909-63-4979Iwoitzg3512550 2.840.1.571937.3.579.2.179673-71-0034Szlrxqt7950582 2.840.1.444486.3.579.2.088511-20-5360Vrkdwbx8633153 2.840.1.537768.3.579.2.639857-27-0541Lapyvgg7513997 2.16.840.1.297716.3.579.2.448324-06-2671Idjyknu5449643 2..840.1.043510.3.579.2.640089-32-2766Fqinbag6406326 2.840.1.701898.3.579.2.677536-36-7412Yasowxk7049615 2.840.1.070299.3.579.2.950595-93-5248Rsqnqor4204092 2.840.1.859684.3.579.2.943143-75-9693Btkhngz9810081 2.840.1.090990.3.579.2.168270-70-1336Lwajnyo1926762 2.0.1.251673.3.579.2.366981-97-2770Kiecmiu8621006 2.840.1.929106.3.579.2.1259UnknownAARP [place] [id number] 1u18a55p-[id number]-9178-[id number]-506t93m707f3Sbblvlu01363344 2.840.1.057158.3.579.2.700Zrjcxwt22172617 2.0.1.728746.3.579.2.531 [id number] 2.840.1.149314.3.579.2.609Hezhyww29759489 2.0.1.893800.3.579.2.531 Social History DateTypeDetailFacilityStart: 06-18-2018 End: 84-15-8819Dhzrbcb smoking status NHISNever smoked tobaccoBluffton Hospital Start: 26-18-7360Ohemzva use and exposureSmokeless tobacco non-userKettering Health Hamiltontart: 10-25-2021 End: 03-08-8937Skuvvdm intakeCurrent drinker of alcohol (finding)[facility]ontart: 02-65-1716Qgsmozq SDOH Alcohol CommentminimalKettering Health Hamiltontart: 57-57-8557Gle Assigned At BirthNot on fileSt. Vincent Hospital smoking statusNo Smoking Status EnteredExecutive Urology [facility] start: 04-12-2023 End: 73-23-2930Akb Assigned At [facility] HospitalMaleExec[facility] start: 46-98-2947Qly [facility]igned At [facility] CompanyTobacco smoking statusMcKitrick Hospitaltart: 04-12-2023 End: 15-66-5879Bfsgzdm of Social functionNOMS HealthcareFrequency of Alcohol ConsumptionNot on fileExecutive Urology [facility] How many standard drinks containing alcohol do you have on a typical day?1 or 2 [facility] HealthcareHow often do you have 6 or more drinks on 1 occasion?WeeklyNONJ HealthcareStart: 30-63-6109Nysmdeh CommentCaffeine intake: 1-2 cups per day, coffee, sodaNOMS HealthcareDo you belong to any clubs or organizations such as mandaeism groups, unions, fraternal or athletic groups, or school groups?NoNOMS HealthcareAre you now , , , , never or living with a partner?MarriedNOMS HealthcareHow often to you have a drink containing alcohol?Monthly or lessNOMS HealthcareHow often do you have 6 or more drinks on 1 occasion?NeverNOMS Healthcare(I/We) worried whether (my/our) food would run out before (I/we) got money to buy more.Never trueN[facility] Healthcare Start: 12-27-2011 End: 68-60-0657KnoImvt (finding)[facility] HospitalHow often do you need to have someone help you when you read instructions, pamphlets, or other written material from your doctor or pharmacy [SILS]OftenNOMS Healthcare Medical Equipment Procedure CodeEquipment CodeEquipment Original TextEquipment IdentifierDates Injection, hydrogel spacerRadiotherapy protection spacer ()[id number] FDAStart: 82-45-3621Kumialiql, hydrogel spacerImaging lesion localization marker, implantable ()[id number] FDAStart: each by In Vitro route in the morning and 1 each in the evening and 1 each before bedtime. [id number]: each in the morning and 1 each in the evening and 1 each before bedtime.[id number]: 65-28-2700LAJ Insulin Syringes 31Gx5/16 31G X 5/16 0.3 ML [id number]: 13-62-1740SAS DIRECTED to test BLOOD SUGAR THREE TIMES [id number]: each by Other route in the morning and 1 each in the evening and 1 each before bedtime.[id number]: 29-80-3433Pgj as [id number]: 38-50-1857Fd xfunsv74328583Zgnvk: 50-15-2640Cnf as [id number]: 06-65-7698PHD DIRECTED to test BLOOD SUGAR IN THE MORNING, IN THE EVENING and BEFORE [id number]: 75-78-9649VVY DIRECTED to test BLOOD SUGAR THREE TIMES DAILY (IN THE MORNING, IN THE EVENING, and BEFORE bedtime)[id number]: 28-12-6614Xg qakowx16708548Trfcz: 12-04-2024 Goals DatePatient GoalDesired Activity/State Functional Status VzgzTogjqrqefgSsmmjmPaldmpcc25-36-3681Dicmzebylf StatusN/AExec[facility]11-04-2022Functional StatusN/A[facility]07-15-2022Functional StatusN/A [facility] Clinical Notes 10-25-2021 to 04-13-2025 Note Date & NppxNeqdUfbnaflj17-84-9089 NoteUT Cardiology - [facility] Subjective Zach Chamorro is a 79 y.o. year old male patient being seen for follow up heart cath/PCI. Says he feels better but still has a little chest discomfort , which is relieved with Tylenol. Patient Active Problem List Diagnosis Abnormal EKG Carr's palsy Benign essential hypertension BPH with urinary obstruction Charcot joint of left foot Diabetic retinopathy associated with type 2 diabetes mellitus (CMS/HCC) Dyslipidemia Elevated PSA Encounter for long-term current use of medication Erectile dysfunction Gross hematuria History of gastric ulcer History of prostate cancer History of renal calculi Hypercholesterolemia Primary hypertension Hypomagnesemia Iris nevus, left Localized, primary osteoarthritis of hand Medicare annual wellness visit, subsequent Nocturia Nocturnal leg cramps Back pain Other chest pain Peptic ulcer disease Preoperative clearance 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 Pruritus Reactive lymphadenopathy Kidney stones Rupture of right rotator cuff Seasonal allergic rhinitis due to pollen Tear of medial meniscus of knee Thrombocytopenia TIA (transient ischemic attack) Type 1 diabetes mellitus (CMS/HCC) Transient cerebral ischemia Type 2 diabetes mellitus treated with insulin (CMS/HCC) Type 2 diabetes mellitus with hyperglycemia, with long-term current use of insulin (CMS/HCC) Cardiovascular stress test abnormal Preop cardiovascular exam Mixed hyperlipidemia Coronary artery disease involving onondaga coronary artery of onondaga heart with unstable angina pectoris (CMS/HCC) Multiple vessel coronary artery disease Aneurysm of ascending aorta without rupture Nonrheumatic aortic valve stenosis Nonrheumatic aortic valve insufficiency S/P coronary artery stent placement Prostate cancer ([facility]/HCC) Family History Problem Relation Name Age of Onset Stroke Mother Social History Tobacco Use Smoking status: Never Smokeless tobacco: Never Substance Use Topics Alcohol use: Yes Comment: occasional Drug use: Never [facility] Visit of 01/19/2025: This is a 79-year-old man who is [...] stress test in August 2023 was negative. Visit of 04/13/2025: He is seen in follow-up. At last visit I scheduled him for cardiac catheterization due to chest pain and abnormal stress test. However he ended up being admitted to the hospital and underwent coronary angiography on 02/20/2025 that showed severe disease in the LAD/diagonal branch, distal circumflex and distal RCA. He was also found to have at least moderate to severe aortic valve stenosis. He reviewed in consultation by CT surgery and was offered open heart surgery to manage his coronary artery disease and aortic valve stenosis. He however declined to proceed with open heart surgery and opted for percutaneous intervention. He underwent intervention to the LAD and diagonal branch on 02/24/2025. Since the procedure he says that he felt better but he continues to have episodes of chest pain that happens at rest or with mild activity. He has no significant shortness of breath. No significant lower extremity edema. No palpitations. No syncope. He is currently taking dual antiplatelet therapy with aspirin and clopidogrel. He is on metoprolol and isosorbide mononitrate in addition to lisinopril and rosuvastatin. Review of Systems Eyes: Positive for visual disturbance. Cardiovascular: Positive for chest pain. Musculoskeletal: Positive for back pain and joint pain. Neurological: Positive for dizziness and light-headedness. Objective Visit Vitals BP 118/64 (BP Location: Left arm, Patient Position: Sitting) Pulse 89 Ht 1.88 m (6' 2 ) Wt 87.5 kg (193 lb) SpO2 99% BMI 24.78 kg/m??? Smoking Status Never BSA 2.14 m??? Physical Exam Constitutional: Appearance: He is well-developed. He is not ill-appearing. HENT: Head: Normocephalic and atraumatic. Nose: Nose normal. Eyes: Genera (more content not included)...[facility] 03-19-2025 NoteCardiovascular Medicine [facility] SUBJECTIVE Chief Complaint Patient presents with Follow-up Patient is here S/P cardiac stent and angioplasty. Patient denies SOB/LLAMAS chest pain, leg swelling/pain. Patient complains of fatigue when he over does it. Post-Cath Hypertension Hyperlipidemia Transient Ischemic Attack Coronary Artery Disease Multiple vessel coronary artery disease Aneurysm of ascending aorta without rupture Valve Disorder Non-rheumatic aortic valve insufficiency Dizziness Lightleaded with position changes Zach Chamorro is a 79 y.o. male here for hospital follow-up. HPI 03/19/2025 He was recently admitted to [facility] due to unstable angina. He was originally scheduled to undergo a cardiac as an outpt due to an abnormal stress test but instead this was done during his recent admission. He was found to have multivessel disease. His case was discussed amoungst the heart team and it was decided he should undergo PCI. On 02/24/2025 that resulted in successful balloon angioplasty and drug-eluting stent placement in mid LAD as well as balloon angioplasty of the proximal diagonal branch of the LAD. He has been feeling better since his recent admission. He notes he does have some mild chest discomfort when he lays down. Pain is left sided, feels like an achiness, he falls asleep and pain is resolved by the AM. Occurring maybe every other day or so. Pain is less intense than prior to his cardiac cath. He doesn't think he has had chest pain with exertion. Discharge Summary Admission Date: 02/20/2025 1:58 PM Length of Stay: 5 days Primary Discharge Diagnosis: Unstable Angina Three vessel Coronary artery disease Moderate aortic stenosis Admission Diagnosis: Unstable angina (CMS/[facility]) [I20.0] Secondary discharge diagnosis Essential hypertension Mixed hyperlipidemia Type 2 diabetes Aneurysm of ascending aorta without rupture Hospital course: 79-year-old male was transferred from outside hospital where he originally presented with unstable angina. Patient has past medical history of essential hypertension, type 2 diabetes, coronary artery disease, hyperlipidemia. Patient was started on IV heparin drip at outside hospital and transferred to [facility] for further evaluation. Patient underwent left heart catheterization on 02/20/2025 that revealed multivessel coronary artery disease and at that point, no percutaneous intervention was attempted. CT surgery was consulted for possible CABG evaluation. Patient was seen in consultation with CT surgery team and interventional cardiology. Subsequently, it was decided to proceed with a staged percutaneous intervention and patient underwent left heart catheterization on 02/24/2025 that resulted in successful balloon angioplasty and drug-eluting stent placement in mid LAD as well as balloon angioplasty of the proximal diagonal branch of the LAD. Patient was monitored overnight after left heart catheterization. Patient denied any chest pain, shortness of breath, palpitations. Patient will be discharged on aspirin, Plavix for at least 12 months. He will be also discharged on higher dose of Crestor. Patient will need follow-up with PCP and cardiology as outpatient. Surgical, Invasive or Diagnostic Procedures Done During Admission: Left heart catheterization Consultations During Admission: Cardiology and CT Surgery Problem List[1] Medical History[2] Family History[3] Social History[4] Allergies[5] OBJECTIVE Visit Vitals BP 121/84 (BP Location: Right arm, Patient Position: Sitting) Pulse 88 Ht 1.88 m (6' 2 ) Wt 88.9 kg (196 lb) SpO2 99% BMI 25.16 kg/m??? Smoking Status Never BSA 2.15 m??? Medications: Current Medications[6] Physical Exam Constitutional: Appearance: Normal appearance. HENT: Head: Normocephalic and atraumatic. Right Ear: External ear normal. Left Ear: External ear normal. Eyes: Extraocular Movements: Extraocular movements intact. Pupils: Pupils are equal, round, and reactive to light. Neck: Vascular: No carotid bruit. Cardiovascular: Rate and Rhythm: Normal rate and regular rhythm. Pulses: Normal pulses. Heart sounds: Normal heart sounds. Comments: Left radial artery cath site soft, nontender, no hematoma, no bruit Pulmonary: Effort: Pulmonary effort is normal. Breath sounds: Normal breath sounds. Abdominal: General: Bowel sounds are normal. Palpations: Abdomen is soft. Musculoskeletal: General: Normal range of motion. Cervical back: Neck supple. Right lower leg: No edema. Left lower leg: No edema. Skin: General: Skin is warm and dry. Neurological: General: No focal deficit present. Mental Status: He is alert and oriented to person, place, and time. Psychiatric: Mood and Affect: Mood normal. Behavior: Behavior normal. Thought Content: Thought content normal. Judgment: Judgment normal. Labs: No results found for: EXTCMP , BMPR1 (more content not included)...[facility]09-17-2025 NoteHospital Medicine Discharge Summary Admission Date: 02/20/2025 1:58 PM Length of Stay: 5 days Primary Discharge Diagnosis: Unstable Angina Three vessel Coronary artery disease Moderate aortic stenosis Admission Diagnosis: Unstable angina (CMS/[facility]) [I20.0] Secondary discharge diagnosis Essential hypertension Mixed hyperlipidemia Type 2 diabetes Aneurysm of ascending aorta without rupture Hospital course: 79-year-old male was transferred from outside hospital where he originally presented with unstable angina. Patient has past medical history of essential hypertension, type 2 diabetes, coronary artery disease, hyperlipidemia. Patient was started on IV heparin drip at outside hospital and transferred to [facility] for further evaluation. Patient underwent left heart catheterization on 02/20/2025 that revealed multivessel coronary artery disease and at that point, no percutaneous intervention was attempted. CT surgery was consulted for possible CABG evaluation. Patient was seen in consultation with CT surgery team and interventional cardiology. Subsequently, it was decided to proceed with a staged percutaneous intervention and patient underwent left heart catheterization on 02/24/2025 that resulted in successful balloon angioplasty and drug-eluting stent placement in mid LAD as well as balloon angioplasty of the proximal diagonal branch of the LAD. Patient was monitored overnight after left heart catheterization. Patient denied any chest pain, shortness of breath, palpitations. Patient will be discharged on aspirin, Plavix for at least 12 months. He will be also discharged on higher dose of Crestor. Patient will need follow-up with PCP and cardiology as outpatient. Surgical, Invasive or Diagnostic Procedures Done During Admission: Left heart catheterization Consultations During Admission: Cardiology and CT Surgery Deajerome Ng MD, Gary is advised to follow up with you within 1-2 weeks. Items to follow up in ambulatory setting: None Follow-up with: Cardiology Scheduled appointments: Future Appointments Date Time Provider Department Center 03/19/2025 1:20 PM Ron Julien CNP [facility] 04/13/2025 10:30 AM Cassandra Boucher MD [facility] Your medication list START taking these medications Instructions Last Dose Given Next Dose Due clopidogrel 75 mg tablet Commonly known as: Plavix Start taking on: February 26, 2025 Take 1 tablet (75 mg) by mouth in the morning. CHANGE how you take these medications Instructions Last Dose Given Next Dose Due rosuvastatin 40 mg tablet Commonly known as: Crestor What changed: medication strength how much to take Take 1 tablet (40 mg) by mouth at bedtime. CONTINUE taking these medications Instructions Last Dose Given Next Dose Due allopurinol 300 mg tablet Commonly known as: Zyloprim aspirin 81 mg EC tablet Cialis 20 mg tablet Generic drug: tadalafil coenzyme Q10 100 mg tablet,chewable cyanocobalamin (vitamin B-12) 1,000 mcg tablet extended release dutasteride 0.5 mg capsule Commonly known as: Avodart esomeprazole 20 mg packet Commonly known as: NexIUM ferrous sulfate 325 (65 Fe) MG tablet insulin glargine 100 unit/mL injection vial Commonly known as: Lantus insulin lispro 100 unit/mL injection Commonly known as: HumaLOG isosorbide mononitrate ER 30 mg 24 hr tablet Commonly known as: Imdur Take 1 tablet (30 mg) by mouth in the morning. Do not crush or chew. lisinopril 20 mg tablet magnesium oxide 400 mg (241.3 mg magnesium) tablet Commonly known as: Mag-Ox metFORMIN 1,000 mg tablet Commonly known as: Glucophage metoprolol succinate XL 50 mg 24 hr tablet Commonly known as: Toprol-XL Ozempic 1 mg/dose (4 mg/3 mL) pen injector Generic drug: semaglutide PRESERVISION AREDS 2 PLUS MV ORAL Where to Get Your Medications These medications were sent to [facility] - [address] [place] [address] [address] [facility] [place] [address], [facility] [address] clopidogrel 75 mg tablet rosuvastatin 40 mg tablet Zach has no known allergies. Disposition: Home or Self Care () Discharge Condition: Stable Code Status: Full Code Diagnostic Results Hematology: Results from last 7 days Lab Units 02/25/25 0512 02/24/25 0505 WBC AUTO 10*3/uL 4.77 5.10 HEMOGLOBIN g/dL 11.3* 12.4* HEMATOCRIT % 32.1* 36.4* MCV fL 93.0 97.3 PLATELETS AUTO 10*3/uL 115* 127* Chemistry: Results from last 7 days Lab Units 02/25/25 0512 02/22/25 0941 02/21/25 0422 02/20/25 1422 SODIUM mmol/L 136 135* 134* 134* POTASSIUM mmol/L 4.3 4.4 4.1 4.4 CHLORIDE mmol/L 104 102 103 103 CO2 mmol/L 26 26 25 24 BUN mg/dL 19 19 17 20 CREATININE mg/dL 0.77 0.79 0.63* 0.69* GLUCOSE mg/dL 139* 144* 137* 114* MAGNESIUM mg/dL -- -- -- 1.7* CALCIUM mg/dL 8.6 9.1 8.8 8.8 Results from last 7 days Lab Units 02/20/25 1422 AST U/ (more content not included)...[facility] 02-25-2025 NoteCardiology Inpatient Progress Note SUBJECTIVE Reason for consult: unstable angina HPI: Zach Chamorro is a 79 y.o. year old male with significant medical history of HTN, HLD, DM, h/o prostate cancer, h/o TIA, recent diagnosis of moderate aortic stenosis. He initially saw Dr Boucher in clinic for clearance for urologic surgery as he was having intermittent chest pain. Stress test was positive for EKG changes, ST dep 1 mm in V5-V6, neg lexiscan, TID 1.0. TTE 01/2025: EF 65-70%, no WMA, sev LVH, mild-mod . RVSP 38. He was planned for o/p cath however on 02/20 presented with chestpain to [facility]. No EKG changes, negative troponinn. He was transferred to [facility] for cath for unstable angina. Hospital Course: 02/22/2025 Patient was seen and evaluated at the bedside today. No acute events overnight. Denies chest pain, shortness of breath, palpitations, lightheadedness or dizziness, or lower extremity edema. Remains on heparin drip. Awaiting further workup from CTS for CABG. 02/23/2025 Patient evaluated at bedside with present. He underwent barium swallow study this morning for dysphagia and to evaluate esophagus prior to possible MARC. 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 He is still on heparin gtt. Patient denies chest pain, shortness of breath, dizziness or syncope. 02/24/2025 Patient reports he is doing well. Denies chest pain, shortness of breath, or dizziness. TTE was completed yesterday to assess aortic valve. Decision between CT Surgery and Dr. Boucher is to proceed with PCI/stenting this afternoon. 02/25/2025 Patient doing well after his cath procedure yesterday. Denies chest pain, SOB, dizziness. Left radial cath site incision CDI with no bleeding or ecchymosis. 12-24 hour telemetry reviewed: normal sinus rhythm 83 (65-105) Medical History[1] Patient has no known allergies. Surgical History[2] Family History[3] Social History Tobacco Use Smoking status: Never Smokeless tobacco: Never Substance Use Topics Alcohol use: Yes Comment: occasional Current Outpatient Medications Medication Instructions allopurinol (ZYLOPRIM) 300 mg, Daily RT aspirin 81 mg, Daily RT [START ON 02/26/2025] clopidogrel (PLAVIX) 75 mg, oral, Daily coenzyme Q10 200 mg, Daily cyanocobalamin (vitamin B-12) 1,000 mg, Daily dutasteride (AVODART) 0.5 mg, Nightly esomeprazole (NEXIUM) 20 mg, Nightly ferrous sulfate 65 mg, Nightly insulin glargine (LANTUS) 40 Units, Daily insulin lispro (HUMALOG) 8 Units, subcutaneous, 3 times daily with meals, If blood sugar greater than 150 isosorbide mononitrate ER (IMDUR) 30 mg, oral, Daily, Do not crush or chew. lisinopril 20 mg, Nightly magnesium oxide (MAG-OX) 400 mg, 2 times daily metFORMIN (GLUCOPHAGE) 1,000 mg, Daily with breakfast metoprolol succinate XL (TOPROL-XL) 50 mg, Nightly mv-min/FA/vit K/lutein/zeaxant (PRESERVISION AREDS 2 PLUS MV ORAL) oral, 2 times daily Ozempic 1 mg, Weekly rosuvastatin (CRESTOR) 10 mg, Nightly rosuvastatin (CRESTOR) 40 mg, oral, Nightly tadalafil (CIALIS) 20 mg, As needed Scheduled medications allopurinol, 300 mg, oral, Daily aspirin, 81 mg, oral, Daily clopidogrel, 75 mg, oral, Daily dutasteride, 0.5 mg, oral, Nightly heparin (porcine), 5,000 Units, subcutaneous, TID insulin glargine, 20 Units, subcutaneous, q AM insulin lispro, 0-5 Units, subcutaneous, TID with meals And insulin lispro, 0-4 Units, subcutaneous, Nightly isosorbide mononitrate ER, 30 mg, oral, Daily lisinopril, 20 mg, oral, Nightly magnesium oxide, 400 mg, oral, BID [Held by provider] metFORMIN, 1,000 mg, oral, Daily with breakfast metoprolol succinate XL, 50 mg, oral, Nightly pantoprazole, 40 mg, oral, Daily rosuvastatin, 40 mg, oral, Nightly PRN medications: acetaminophen, glucose OR dextrose 50 % in water (D50W), ondansetron ODT OR ondansetron, sennosides-docusate sodium Review of Systems Constitutional: Negative for malaise/fatigue. Cardiovascular: Negative for chest pain, irregular heartbeat, leg swelling, palpitations and syncope. Respiratory: Negative for shortness of breath. Hematologic/Lymphatic: Does not bruise/bleed easily. Neurological: Negative for dizziness. OBJECTIVE Visit Vitals BP 128/67 (BP Location: Right arm, Patient Position: Lying) Pulse 78 Temp 36.6 ???C (97.8 ???F) (Temporal) Resp 16 Ht 1.88 m (6' 2 ) Wt 88.8 kg (195 lb 12.8 oz) SpO2 99% BMI 25.14 kg/m??? Smoking Status Never BSA 2.15 m??? Physical Exam Vitals reviewed. Constitutional: General: He is not in acute distress. Appearance: Normal appearance. Neck: Vascular: No JVD. Cardiovascular: Rate and Rhythm: Normal rate and regular rhythm. Pulses: Normal pulses. Radial pulses are 2+ on the right side and 2+ on the left side. Posterior tibial pulses are 2+ on the right side and 2+ on the left side. Heart sounds: Murmur heard. Systolic m (more content not included)...[facility] 02-24-2025 NotePatient: Zach Chamorro Procedure Information Date/Time: 02/24/25 1505 Procedure: Percutaneous coronary intervention Location: [facility] (Cath) Providers: Cassandra Boucher MD Clinical information reviewed: Allergies Meds Physical Exam Airway Mallampati: III TM distance: >3 FB Neck ROM: full Cardiovascular Rhythm: regular Rate: normal (+) murmur, JVD (-) peripheral edema Dental Pulmonary Breath sounds clear to auscultation Neurological Abdominal Anesthesia Plan ASA 3 (Moderate sedation) Anesthetic plan and risks discussed with patient. Use of blood products discussed with patient who consented to blood products. Plan discussed with attending. [facility] Note- Continue metoprolol, lisinopril and ImduThe [facility] 02-24-2025 NoteContinue rosuvastatinUnParkwood Hospital 02-24-2025 Note- Moderate aortic stenosis. Was initially planned for CABG with aortic valve replacement. Discussed with cardiology. Patient will be evaluated as outpatient for [facility]AVRUniversSum[facility]-16-[facility]- [facility] surgery following, appreciate recommendationsThe [facility] 02-24-2025 Note- Continue with basal bolus insulin.[facility]09-16-2025 Note- Presented to outside hospital on 02/20/2025 with chest pain. - Transferred to our facility for unstable angina. - Left heart catheterization revealed severe triple-vessel disease on 02/20/2025 - CT surgery consulted for CABG evaluation. - Patient was kept on IV heparin drip for unstable angina and multivessel coronary artery disease. -Discussed with cardiology-Will be taken to [facility] [employer] for percutaneous intervention later in the afternoon. - Needed close monitoring on IV heparin for bleeding with periodic checks of APTT.[facility]09-16-2025 NoteHospital Medicine Daily Progress Note - 02/24/2025 12:55 PM; Room: [address] [place] [address] Admission: 02/20/2025 1:58 PM; Length of stay: 4 days THE HOSPITALIST TEAM PREFERS TO USE [employer] CHAT FOR NON-URGENT COMMUNICATION 7AM-7PM. IF I DO NOT RESPOND WITHIN 20 MINUTES OR URGENT MATTERS, PLEASE CALL THROUGH THE BIOMEDICAL EQUIPMENT TECH. FROM 7PM-7AM, PLEASE PAGE [phone](COVR). Code Status: Full Code Barriers to Discharge: Cardiology evaluation Expected Discharge Date: 02/25/2025 Discharge Destination: home Overview Patient is seen for evaluation and management of unstable angina and multivessel coronary artery disease. Subjective Patient seen and examined. Denies chest pain, shortness of breath, heart palpitations. Later in the afternoon, he had an acute episode of worsening shortness of breath and required supplemental oxygen and IV morphine. He can clinically improved afterwards and was at his baseline with no active complaints to offer Physical Exam Visit Vitals BP 110/67 (BP Location: Left arm, Patient Position: Lying) Pulse 80 Temp 37 ???C (98.6 ???F) (Temporal) Resp 23 Intake/Output Summary (Last 24 hours) at 02/24/2025 1255 Last data filed at 02/24/2025 0900 Gross per 24 hour Intake 360 ml Output 1050 ml Net -690 ml Physical Exam Constitutional: Appearance: He is normal weight. HENT: Head: Normocephalic and atraumatic. Mouth/Throat: Mouth: Mucous membranes are moist. Pharynx: Oropharynx is clear. Cardiovascular: Rate and Rhythm: Normal rate and regular rhythm. Heart sounds: Murmur heard. Abdominal: General: Abdomen is flat. Bowel sounds are normal. There is no distension. Palpations: Abdomen is soft. Tenderness: There is no abdominal tenderness. Musculoskeletal: General: Normal range of motion. Skin: General: Skin is warm. Neurological: Mental Status: He is alert and oriented to person, place, and time. Sensory: No sensory deficit. Motor: No weakness. Psychiatric: Mood and Affect: Mood normal. Thought Content: Thought content normal. Estimated body mass index is 24.45 kg/m??? as calculated from the following: Height as of this encounter: 1.88 m (6' 2 ). Weight as of this encounter: 86.4 kg (190 lb 6.4 oz). Assessment and Plan Assessment & Plan Multiple vessel coronary artery disease Coronary artery disease involving [place] coronary artery of [place] heart with unstable angina pectoris ([facility]) - Presented to outside hospital on 02/20/2025 with chest pain. - Transferred to our facility for unstable angina. - Left heart catheterization revealed severe triple-vessel disease on 02/20/2025 - CT surgery consulted for CABG evaluation. - Patient was kept on IV heparin drip for unstable angina and multivessel coronary artery disease. -Discussed with cardiology-Will be taken to [facility] for percutaneous intervention later in the afternoon. - Needed close monitoring on IV heparin for bleeding with periodic checks of APTT. Nonrheumatic aortic valve stenosis - Moderate aortic stenosis. Was initially planned for CABG with aortic valve replacement. Discussed with cardiology. Patient will be evaluated as outpatient for TAVR Type 2 diabetes mellitus treated with insulin ([facility]) - Continue with basal bolus insulin. Mixed hyperlipidemia Continue rosuvastatin Primary hypertension - Continue metoprolol, lisinopril and Imdu Aneurysm of ascending aorta without rupture - CT surgery following, appreciate recommendations VTE Prophylaxis: IV heparin Scheduled Meds allopurinol, 300 mg, oral, Daily aspirin, 81 mg, oral, Daily dutasteride, 0.5 mg, oral, Nightly insulin glargine, 10 Units, subcutaneous, q AM insulin lispro, 0-5 Units, subcutaneous, TID with meals And insulin lispro, 0-4 Units, subcutaneous, Nightly isosorbide mononitrate ER, 30 mg, oral, Daily lisinopril, 20 mg, oral, Nightly magnesium oxide, 400 mg, oral, BID [Held by provider] metFORMIN, 1,000 mg, oral, Daily with breakfast metoprolol succinate XL, 50 mg, oral, Nightly pantoprazole, 40 mg, oral, Daily rosuvastatin, 10 mg, oral, Nightly heparin, 0-28 Units/kg/hr, Last Rate: 11 Units/kg/hr (02/22/25 1121) Pertinent Investigations Hematology: Results from last 7 days Lab Units 02/24/25 0505 02/22/25 0341 WBC AUTO 10*3/uL 5.10 6.48 HEMOGLOBIN g/dL 12.4* 11.6* HEMATOCRIT % 36.4* 32.5* MCV fL 97.3 92.9 PLATELETS AUTO 10*3/uL 127* 123* Chemistry: Results from last 7 days Lab Units 02/22/25 0941 02/21/25 0422 02/20/25 1422 SODIUM mmol/L 135* 134* 134* POTASSIUM mmol/L 4.4 4.1 4.4 CHLORIDE mmol/L 102 103 103 CO2 mmol/L 26 25 24 BUN mg/dL 19 17 20 CREATININE mg/dL 0.79 0.63* 0.69* GLUCOSE mg/dL 144* 137* 114* MAGNESIUM mg/dL -- -- 1.7* CALCIUM mg/dL 9.1 8.8 8.8 Results from last 7 days Lab Units 02/20/25 1422 AST U/L 18 ALT U/L 19 ALK PHOS U/L 71 BILIRUBIN TOTAL mg/dL 0.6 Results from last 7 days Lab Units 02/24/25 1136 09/ (more content not included)...[facility] 02-24-2025 NoteHeart team approach discussed today with Dr. Boucher, Dr. Georges, and Dr. Gonsales. Cardiac catherization and TTE that was performed yesterday reviewed. After thorough discussion with patient and his , they would prefer for him to undergo PCI and TAVR if AV needs replacement. Decision was made between all disciplinary teams for patient to undergo PCI today and AV would be assessed for TAVR candidacy. Patient made NPO, last meal was 0830 this morning. Updated all care teams and patient and were agreeable to plan of care.[facility]09-16-2025 NoteReadmission Risk Score 11. Zero ED/Inpt admits in the past 6 months. OP Specialty interpersonal communications professor received complex care referral via [employer]. This sports book writer reviewed the chart and pt does not meet criteria for Outpatient Specialty/Complex developer advocate program criteria at this timeUnParkwood Hospital09-16-2025 NoteCardiology Inpatient Progress Note SUBJECTIVE Reason for consult: unstable angina HPI: Zach Chamorro is a 79 y.o. year old male with significant medical history of HTN, HLD, DM, h/o prostate cancer, h/o TIA, recent diagnosis of moderate aortic stenosis. He initially saw Dr Boucher in clinic for clearance for urologic surgery as he was having intermittent chest pain. Stress test was positive for EKG changes, ST dep 1 mm in V5-V6, neg lexiscan, TID 1.0. TTE 01/2025: EF 65-70%, no WMA, sev LVH, mild-mod . RVSP 38. He was planned for o/p cath however on 02/20 presented with chestpain to [facility]. No EKG changes, negative troponinn. He was transferred to [facility] for cath for unstable angina. Hospital Course: 02/22/2025 Patient was seen and evaluated at the bedside today. No acute events overnight. Denies chest pain, shortness of breath, palpitations, lightheadedness or dizziness, or lower extremity edema. Remains on heparin drip. Awaiting further workup from [facility]TS for CABG. 02/23/2025 Patient evaluated at bedside with present. He underwent barium swallow study this morning for dysphagia and to evaluate esophagus prior to possible MARC. 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 He is still on heparin gtt. Patient denies chest pain, shortness of breath, dizziness or syncope. 02/24/2025 Patient reports he is doing well. Denies chest pain, shortness of breath, or dizziness. TTE was completed yesterday to assess aortic valve. Decision between CT Surgery and Dr. Boucher is to proceed with PCI/stenting this afternoon. 12-24 hour telemetry reviewed: normal sinus rhythm 83 (65-105) Medical History[1] Patient has no known allergies. Surgical History[2] Family History[3] Social History Tobacco Use Smoking status: Never Smokeless tobacco: Never Substance Use Topics Alcohol use: Yes Comment: occasional Current Outpatient Medications Medication Instructions allopurinol (ZYLOPRIM) 300 mg, Daily RT aspirin 81 mg, Daily RT coenzyme Q10 200 mg, Daily cyanocobalamin (vitamin B-12) 1,000 mg, Daily dutasteride (AVODART) 0.5 mg, Nightly esomeprazole (NEXIUM) 20 mg, Nightly ferrous sulfate 65 mg, Nightly insulin glargine (LANTUS) 40 Units, Daily insulin lispro (HUMALOG) 8 Units, subcutaneous, 3 times daily with meals, If blood sugar greater than 150 isosorbide mononitrate ER (IMDUR) 30 mg, oral, Daily, Do not crush or chew. lisinopril 20 mg, Nightly magnesium oxide (MAG-OX) 400 mg, 2 times daily metFORMIN (GLUCOPHAGE) 1,000 mg, Daily with breakfast metoprolol succinate XL (TOPROL-XL) 50 mg, Nightly mv-min/FA/vit K/lutein/zeaxant (PRESERVISION AREDS 2 PLUS MV ORAL) oral, 2 times daily Ozempic 1 mg, Weekly rosuvastatin (CRESTOR) 10 mg, Nightly tadalafil (CIALIS) 20 mg, As needed Scheduled medications allopurinol, 300 mg, oral, Daily aspirin, 81 mg, oral, Daily dutasteride, 0.5 mg, oral, Nightly insulin glargine, 10 Units, subcutaneous, q AM insulin lispro, 0-5 Units, subcutaneous, TID with meals And insulin lispro, 0-4 Units, subcutaneous, Nightly isosorbide mononitrate ER, 30 mg, oral, Daily lisinopril, 20 mg, oral, Nightly magnesium oxide, 400 mg, oral, BID [Held by provider] metFORMIN, 1,000 mg, oral, Daily with breakfast metoprolol succinate XL, 50 mg, oral, Nightly pantoprazole, 40 mg, oral, Daily rosuvastatin, 10 mg, oral, Nightly PRN medications: acetaminophen, glucose OR dextrose 50 % in water (D50W), ondansetron ODT OR ondansetron, sennosides-docusate sodium Review of Systems Constitutional: Negative for malaise/fatigue. Cardiovascular: Negative for chest pain, irregular heartbeat, leg swelling, palpitations and syncope. Respiratory: Negative for shortness of breath. Hematologic/Lymphatic: Does not bruise/bleed easily. Neurological: Negative for dizziness. OBJECTIVE Visit Vitals BP 127/70 (BP Location: Left arm, Patient Position: Lying) Pulse 79 Temp 36.6 ???C (97.8 ???F) (Temporal) Resp 20 Ht 1.88 m (6' 2 ) Wt 86.4 kg (190 lb 6.4 oz) SpO2 98% BMI 24.45 kg/m??? Smoking Status Never BSA 2.12 m??? Physical Exam Vitals reviewed. Constitutional: General: He is not in acute distress. Appearance: Normal appearance. Neck: Vascular: No JVD. Cardiovascular: Rate and Rhythm: Normal rate and regular rhythm. Pulses: Normal pulses. Radial pulses are 2+ on the right side and 2+ on the left side. Posterior tibial pulses are 2+ on the right side and 2+ on the left side. Heart sounds: Murmur heard. Systolic murmur is present with a grade of 2/6. Pulmonary: Effort: Pulmonary effort is normal. No respiratory distress. Breath sounds: Normal breath sounds. Abdominal: Palpations: Abdomen is soft. Musculoskeletal: General: Normal range of motion. Cervical back: Normal range of motion and neck supple. Right lower leg: No edema. Left lower leg: No edema. Ski (more content not included)...[facility]09-15-2025 NoteCardiology Inpatient Progress Note SUBJECTIVE Reason for consult: unstable angina HPI: Zach Chamorro is a 79 y.o. year old male with significant medical history of HTN, HLD, DM, h/o prostate cancer, h/o TIA, recent diagnosis of moderate aortic stenosis. He initially saw Dr Boucher in clinic for clearance for urologic surgery as he was having intermittent chest pain. Stress test was positive for EKG changes, ST dep 1 mm in V5-V6, neg lexiscan, TID 1.0. TTE 01/2025: EF 65-70%, no WMA, sev LVH, mild-mod . RVSP 38. He was planned for o/p cath however on 02/20 presented with chestpain to [facility]. No EKG changes, negative troponinn. He was transferred to [facility] for cath for unstable angina. Hospital Course: 02/22/2025 Patient was seen and evaluated at the bedside today. No acute events overnight. Denies chest pain, shortness of breath, palpitations, lightheadedness or dizziness, or lower extremity edema. Remains on heparin drip. Awaiting further workup from [facility]TS for CABG. 02/23/2025 Patient evaluated at bedside with present. He underwent barium swallow study this morning for dysphagia and to evaluate esophagus prior to possible MARC. 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 He is still on heparin gtt. Patient denies chest pain, shortness of breath, dizziness or syncope. 12-24 hour telemetry reviewed: normal sinus rhythm 96 (77-105) Medical History[1] Patient has no known allergies. Surgical History[2] Family History[3] Social History Tobacco Use Smoking status: Never Smokeless tobacco: Never Substance Use Topics Alcohol use: Yes Comment: occasional Current Outpatient Medications Medication Instructions allopurinol (ZYLOPRIM) 300 mg, Daily RT aspirin 81 mg, Daily RT coenzyme Q10 200 mg, Daily cyanocobalamin (vitamin B-12) 1,000 mg, Daily dutasteride (AVODART) 0.5 mg, Nightly esomeprazole (NEXIUM) 20 mg, Nightly ferrous sulfate 65 mg, Nightly insulin glargine (LANTUS) 40 Units, Daily insulin lispro (HUMALOG) 8 Units, subcutaneous, 3 times daily with meals, If blood sugar greater than 150 isosorbide mononitrate ER (IMDUR) 30 mg, oral, Daily, Do not crush or chew. lisinopril 20 mg, Nightly magnesium oxide (MAG-OX) 400 mg, 2 times daily metFORMIN (GLUCOPHAGE) 1,000 mg, Daily with breakfast metoprolol succinate XL (TOPROL-XL) 50 mg, Nightly mv-min/FA/vit K/lutein/zeaxant (PRESERVISION AREDS 2 PLUS MV ORAL) oral, 2 times daily Ozempic 1 mg, Weekly rosuvastatin (CRESTOR) 10 mg, Nightly tadalafil (CIALIS) 20 mg, As needed Scheduled medications allopurinol, 300 mg, oral, Daily aspirin, 81 mg, oral, Daily dutasteride, 0.5 mg, oral, Nightly insulin glargine, 10 Units, subcutaneous, q AM insulin lispro, 0-5 Units, subcutaneous, TID with meals And insulin lispro, 0-4 Units, subcutaneous, Nightly isosorbide mononitrate ER, 30 mg, oral, Daily lisinopril, 20 mg, oral, Nightly magnesium oxide, 400 mg, oral, BID [Held by provider] metFORMIN, 1,000 mg, oral, Daily with breakfast metoprolol succinate XL, 50 mg, oral, Nightly pantoprazole, 40 mg, oral, Daily rosuvastatin, 10 mg, oral, Nightly PRN medications: acetaminophen, glucose OR dextrose 50 % in water (D50W), ondansetron ODT OR ondansetron, sennosides-docusate sodium Review of Systems Constitutional: Negative for malaise/fatigue. Cardiovascular: Negative for chest pain, irregular heartbeat, leg swelling, palpitations and syncope. Respiratory: Negative for shortness of breath. Hematologic/Lymphatic: Does not bruise/bleed easily. Neurological: Negative for dizziness. OBJECTIVE Visit Vitals BP 113/73 Pulse 77 Temp 36.4 ???C (97.5 ???F) (Temporal) Resp 18 Ht 1.88 m (6' 2 ) Wt 86.7 kg (191 lb 3.2 oz) SpO2 94% BMI 24.55 kg/m??? Smoking Status Never BSA 2.13 m??? Physical Exam Vitals reviewed. Constitutional: General: He is not in acute distress. Appearance: Normal appearance. Neck: Vascular: No JVD. Cardiovascular: Rate and Rhythm: Normal rate and regular rhythm. Pulses: Normal pulses. Radial pulses are 2+ on the right side and 2+ on the left side. Posterior tibial pulses are 2+ on the right side and 2+ on the left side. Heart sounds: Murmur heard. Systolic murmur is present with a grade of 2/6. Pulmonary: Effort: Pulmonary effort is normal. No respiratory distress. Breath sounds: Normal breath sounds. Abdominal: Palpations: Abdomen is soft. Musculoskeletal: General: Normal range of motion. Cervical back: Normal range of motion and neck supple. Right lower leg: No edema. Left lower leg: No edema. Skin: General: Skin is warm and dry. Capillary Refill: Capillary refill takes less than 2 seconds. Neurological: General: No focal deficit present. Mental Status: He is alert. Relevant Lab Results: Lab Results Component Value Date WBC 6.48 02/22/2025 HGB 11.6 (L) 02/22/2025 HCT 32. (more content not included)...[facility] 02-23-2025 Note- MARC was ordered to further evaluate, but cancelled due [facility]- presented to [facility] on [facility]20 with chest pain - No abnormal EKG findings. Troponins were negative. Transferred to [facility] for catheterization. - Cardiology following, appreciate recommendations - three vessel disease on cardiac cath - CT surgery following, appreciate recommendations - Work up for CABG underway - [facility] cancelled [facility]- CT surgery following, appreciate recommendationsUnParkwood Hospital09-15-2025 NoteContinue rosuvastatinUnParkwood Hospital09-15-2025 Note- continue allopurinolUnParkwood Hospital09-15-2025 Note- Continue imdur, lisinopril and metoprolol succinate - Blood pressure is within acceptable range on 02/23 AMUnParkwood [facility]09-15-2025 Note- lantus dose reduced to 10U daily - Continue SSI - Blood glucose is within acceptable range on 02/23 AMUnParkwood [facility]09-15-2025 NoteHospital Medicine Daily Progress Note - 02/23/2025 10:34 AM; Room: 3177/3177-01 Admission: 02/20/2025 1:58 PM; Length of stay: 3 days THE HOSPITALIST TEAM PREFERS TO USE [employer] FOR NON-URGENT COMMUNICATION 7AM-7PM. IF I DO NOT RESPOND WITHIN 20 MINUTES OR URGENT MATTERS, PLEASE CALL THROUGH THE BIOMEDICAL EQUIPMENT TECH. FROM 7PM-7AM, PLEASE PAGE [phone](COVR). Code Status: Full Code Barriers to Discharge: CABG evaluation Expected Discharge Date: TBD Discharge Destination: TBD Overview Patient is seen for evaluation and management of multivessel CAD. Subjective Patient seen and examined in the morning. He was resting in bed. He was doing fine. Denied any chest pain. MARC cancelled due to Zenker's diverticulum. Physical Exam Visit Vitals BP 113/73 Pulse 77 Temp 36.4 ???C (97.5 ???F) (Temporal) Resp 18 Intake/Output Summary (Last 24 hours) at 02/23/2025 1034 Last data filed at 02/23/2025 0200 Gross per 24 hour Intake -- Output 400 ml Net -400 ml Physical Exam Vitals reviewed. Constitutional: General: He is not in acute distress. Appearance: He is not ill-appearing or toxic-appearing. HENT: Head: Normocephalic and atraumatic. Mouth/Throat: Mouth: Mucous membranes are moist. Eyes: General: No scleral icterus. Extraocular Movements: Extraocular movements intact. Pupils: Pupils are equal, round, and reactive to light. Cardiovascular: Rate and Rhythm: Normal rate. Pulmonary: Effort: Pulmonary effort is normal. No respiratory distress. Breath sounds: No stridor. Abdominal: General: There is no distension. Palpations: Abdomen is soft. Neurological: Mental Status: He is alert. Cranial Nerves: No cranial nerve deficit. Psychiatric: Mood and Affect: Mood normal. Behavior: Behavior normal. Thought Content: Thought content normal. Judgment: Judgment normal. Estimated body mass index is 24.55 kg/m??? as calculated from the following: Height as of this encounter: 1.88 m (6' 2 ). Weight as of this encounter: 86.7 kg (191 lb 3.2 oz). 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 Troponins were negative. Transferred to [facility] for catheterization. - Cardiology following, appreciate recommendations - three vessel disease on cardiac cath - CT surgery following, appreciate recommendations - Work up for CABG underway - MARC cancelled due to zenker's diverticulum Type 2 diabetes mellitus treated with insulin ([facility]) - lantus dose reduced to 10U daily - Continue SSI - Blood glucose is within acceptable range on 02/23 AM Mixed hyperlipidemia Continue rosuvastatin Primary hypertension - Continue imdur, lisinopril and metoprolol succinate - Blood pressure is within acceptable range on 02/23 AM Kidney stones - continue allopurinol Aneurysm of ascending aorta without rupture - CT surgery following, appreciate recommendations Nonrheumatic aortic valve stenosis - MARC was ordered to further evaluate, but cancelled due to Zenker's diverticulum VTE Prophylaxis: Heparin subcutaneous Scheduled Meds allopurinol, 300 mg, oral, Daily aspirin, 81 mg, oral, Daily dutasteride, 0.5 mg, oral, Nightly insulin glargine, 10 Units, subcutaneous, q AM insulin lispro, 0-5 Units, subcutaneous, TID with meals And insulin lispro, 0-4 Units, subcutaneous, Nightly isosorbide mononitrate ER, 30 mg, oral, Daily lisinopril, 20 mg, oral, Nightly magnesium oxide, 400 mg, oral, BID [Held by provider] metFORMIN, 1,000 mg, oral, Daily with breakfast metoprolol succinate XL, 50 mg, oral, Nightly pantoprazole, 40 mg, oral, Daily rosuvastatin, 10 mg, oral, Nightly heparin, 0-28 Units/kg/hr, Last Rate: 11 Units/kg/hr (02/22/25 1121) Pertinent Investigations Hematology: Results from last 7 days Lab Units 02/22/25 0341 02/21/25 1536 02/21/25 0422 WBC AUTO 10*3/uL 6.48 -- 5.74 HEMOGLOBIN g/dL 11.6* -- 11.5* HEMATOCRIT % 32.5* -- 32.6* MCV fL 92.9 -- 92.6 PLATELETS AUTO 10*3/uL 123* 150 120* Chemistry: Results from last 7 days Lab Units 02/22/25 0941 02/21/25 0422 02/20/25 1422 SODIUM mmol/L 135* 134* 134* POTASSIUM mmol/L 4.4 4.1 4.4 CHLORIDE mmol/L 102 103 103 CO2 mmol/L 26 25 24 BUN mg/dL 19 17 20 CREATININE mg/dL 0.79 0.63* 0.69* GLUCOSE mg/dL 144* 137* 114* MAGNESIUM mg/dL -- -- 1.7* CALCIUM mg/dL 9.1 8.8 8.8 Results from last 7 days Lab Units 02/20/25 1422 AST U/L 18 ALT U/L 19 ALK PHOS U/L 71 BILIRUBIN TOTAL mg/dL 0.6 Results from last 7 days Lab Units 02/23/25 0706 02/22/25200602/22/25 1540 02/22/25 1200 02/22/25 0803 02/21/252008 POCT GLUCOSE mg/dL 175* 223* 172* 198* 150* 186* Historical Values: (Includes values prior to this admission) No results found for: PREALBUMIN , TSH , T3FREE , FREET (more content not included)... [facility]09-15-2025 Note02/23/25 0942 Admission Assessment Questions Verify insurance with patient Yes Do you understand medical disease or what brought you into the hospital? Yes Who is your current PCP? Blake Ng Can I schedule a follow up appointment for you at the time of discharge? Yes Does patient qualify for Complex Care Management Enrollment? Yes Do you understand why you are taking your current medications? Yes Are you taking your medications as prescribed? Yes Did patient provide teach back? No Pharmacy Bedside Delivery Status Interested Does the patient have a business case analyst assigned to them through their insurance? No Living Arrangement (Current/Prior to Hospitalization) Private residence (with ) Does the patient have history of HHC or SNF? No Assistive Device Not applicable Patient's goal for discharge To discharge home Was patient reminded that goal for discharge is 11am? No Does the patient have transportation at discharge? Yes Type of Residence Private residence Is PT/OT appropriate? No Is PT/OT ordered? No Is SW consult appropriate? No Is SW consult ordered? No Do you understand the benefits of MyChart? Yes Were you able to send link and activate MyChart? MyChart already active [facility]09-14-2025 Note- Continue imdur, lisinopril and metoprolol succinate - Blood pressure is within acceptable range on 02/22 AMUnPark[facility]09-14-2025 NoteContinue rosuvastatinUnParkwood Hospital09-14-2025 Note- lantus dose reduced to 10U daily - Continue SSI - Blood glucose is within acceptable range on 02/22 AMThe [facility]- presented to [facility] on [facility]/20 with chest pain - No abnormal EKG findings. Troponins were negative. Transferred to [facility] for catheterization. - Cardiology following, appreciate recommendations - three vessel disease on cardiac cath - CT surgery following, appreciate recommendations - Work up for CABG underway - Likely will need TEEUnParkwood Hospital09-14-2025 Note- continue allopurinolUnParkwood Hospital09-14-2025 NoteHospital Medicine Daily Progress Note - 02/22/2025 9:50 AM; Room: [address] [place] [address] Admission: 02/20/2025 1:58 PM; Length of stay: 2 days THE HOSPITALIST TEAM PREFERS TO USE [employer] CHAT FOR NON-URGENT COMMUNICATION 7AM-7PM. IF I DO NOT RESPOND WITHIN 20 MINUTES OR URGENT MATTERS, PLEASE CALL THROUGH THE BIOMEDICAL EQUIPMENT TECH. FROM 7PM-7AM, PLEASE PAGE [phone](COVR). Code Status: Full Code Barriers to Discharge: CABG evaluation Expected Discharge Date: TBD Discharge Destination: TBD Overview Patient is seen for evaluation and management of multivessel CAD. Subjective Patient seen and examined in the morning. He was resting in bed. He was not in any acute distress. He stated that he felt weak overnight, but that has resolved. Physical Exam Visit Vitals BP 146/78 (BP Location: Right arm, Patient Position: Lying) Pulse 80 Temp 36.4 ???C (97.5 ???F) (Temporal) Resp 20 Intake/Output Summary (Last 24 hours) at 02/22/2025 0950 Last data filed at 02/22/2025 0600 Gross per 24 hour Intake 729.45 ml Output 1150 ml Net -420.55 ml Physical Exam Vitals reviewed. Constitutional: General: He is not in acute distress. Appearance: He is not ill-appearing or toxic-appearing. HENT: Head: Normocephalic and atraumatic. Mouth/Throat: Mouth: Mucous membranes are moist. Eyes: General: No scleral icterus. Extraocular Movements: Extraocular movements intact. Pupils: Pupils are equal, round, and reactive to light. Cardiovascular: Rate and Rhythm: Normal rate. Pulmonary: Effort: Pulmonary effort is normal. No respiratory distress. Breath sounds: No stridor. Abdominal: General: There is no distension. Palpations: Abdomen is soft. Neurological: Mental Status: He is alert. Cranial Nerves: No cranial nerve deficit. Psychiatric: Mood and Affect: Mood normal. Behavior: Behavior normal. Thought Content: Thought content normal. Judgment: Judgment normal. Estimated body mass index is 24.39 kg/m??? as calculated from the following: Height as of this encounter: 1.88 m (6' 2 ). Weight as of this encounter: 86.2 kg (190 lb). 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 Troponins were negative. Transferred to [facility] for catheterization. - Cardiology following, appreciate recommendations - three vessel disease on cardiac cath - CT surgery following, appreciate recommendations - Work up for CABG underway - Likely will need MARC Type 2 diabetes mellitus treated with insulin ([facility]) - lantus dose reduced to 10U daily - Continue SSI - Blood glucose is within acceptable range on 14 AM Mixed hyperlipidemia Continue rosuvastatin Primary hypertension - Continue imdur, lisinopril and metoprolol succinate - Blood pressure is within acceptable range on 914 AM Kidney stones - continue allopurinol VTE Prophylaxis: Heparin subcutaneous Scheduled Meds allopurinol, 300 mg, oral, Daily aspirin, 81 mg, oral, Daily dutasteride, 0.5 mg, oral, Nightly insulin glargine, 10 Units, subcutaneous, q AM insulin lispro, 0-5 Units, subcutaneous, TID with meals And insulin lispro, 0-4 Units, subcutaneous, Nightly isosorbide mononitrate ER, 30 mg, oral, Daily lisinopril, 20 mg, oral, Nightly magnesium oxide, 400 mg, oral, BID [Held by provider] metFORMIN, 1,000 mg, oral, Daily with breakfast metoprolol succinate XL, 50 mg, oral, Nightly pantoprazole, 40 mg, oral, Daily rosuvastatin, 10 mg, oral, Nightly heparin, 0-28 Units/kg/hr, Last Rate: 13 Units/kg/hr (02/22/25 0647) Pertinent Investigations Hematology: Results from last 7 days Lab Units 02/22/25 0341 02/21/25 1536 02/21/25 0422 WBC AUTO 10*3/uL 6.48 -- 5.74 HEMOGLOBIN g/dL 11.6* -- 11.5* HEMATOCRIT % 32.5* -- 32.6* MCV fL 92.9 -- 92.6 PLATELETS AUTO 10*3/uL 123* 150 120* Chemistry: Results from last 7 days Lab Units 02/21/25 0422 02/20/25 1422 SODIUM mmol/L 134* 134* POTASSIUM mmol/L 4.1 4.4 CHLORIDE mmol/L 103 103 CO2 mmol/L 25 24 BUN mg/dL 17 20 CREATININE mg/dL 0.63* 0.69* GLUCOSE mg/dL 137* 114* MAGNESIUM mg/dL -- 1.7* CALCIUM mg/dL 8.8 8.8 Results from last 7 days Lab Units 02/20/25 1422 AST U/L 18 ALT U/L 19 ALK PHOS U/L 71 BILIRUBIN TOTAL mg/dL 0.6 Results from last 7 days Lab Units 02/22/25 0803 02/21/25 2009 02/21/25 1612 02/21/25 1212 02/21/25 0823 02/20/252012 POCT GLUCOSE mg/dL 150* 186* 151* 191* 150* 158* Historical Values: (Includes values prior to this admission) No results found for: PREALBUMIN , TSH , T3FREE , FREET4 , CORTISOL , FEV1 , PBD4SEF , DLCO , RVSP , HDL , LDL No results found for: [id number] , IRON , TIBC , C3 , C4 , KIM , CANCA , ASO , PSA , CEA , CA125 , CA199 , AFP , CA153 Imaging Vasc Us Lower Ext (more content not included)...[facility]09-14-2025 NoteCardiothoracic Surgery Progress Note 02/22/2025 Room: [address] [place] [address] Subjective Sitting up in chair without complaints. Denies chest pain and palpitations. No dizziness lightheadedness during transfer and ambulation. Denies shortness of breath. No supplemental oxygen needs. Denies nausea or vomiting. No abdominal pain, fever or chills. Objective Patient Vitals for the past 24 hrs: BP Temp Temp src Pulse Resp SpO2 Weight 02/22/25 1125 109/58 36.8 ???C (98.3 ???F) Temporal 85 23 96 % -- 02/22/25 0800 146/78 36.4 ???C (97.5 ???F) Temporal 80 20 95 % -- 02/22/25 0516 -- -- -- -- -- -- 86.2 kg (190 lb) 02/22/25 0415 139/70 36.7 ???C (98 ???F) Temporal 75 12 94 % -- 02/21/25 2350 113/53 -- -- 83 25 97 % -- 02/21/25 1935 116/58 36.7 ???C (98.1 ???F) Temporal 67 25 96 % -- 02/21/25 1610 110/61 36.6 ???C (97.9 ???F) Temporal 84 21 93 % -- Physical Exam Constitutional: General: He is not in acute distress. Appearance: Normal appearance. He is not ill-appearing, toxic-appearing or diaphoretic. HENT: Mouth/Throat: Mouth: Mucous membranes are moist. Cardiovascular: Rate and Rhythm: Normal rate and regular rhythm. Pulmonary: Effort: No respiratory distress. Breath sounds: Normal breath sounds. No wheezing or rales. Abdominal: General: There is no distension. Palpations: Abdomen is soft. Musculoskeletal: General: No swelling. Normal range of motion. Skin: General: Skin is warm and dry. Neurological: Mental Status: He is alert. Lab Results Component Value Date NA 135 (L) 02/22/2025 K 4.4 02/22/2025 CL 102 02/22/2025 ANIONGAP 11 02/22/2025 BUN 19 02/22/2025 CREATININE 0.79 02/22/2025 CALCIUM 9.1 02/22/2025 MG 1.7 (L) 02/20/2025 Lab Results Component Value Date BILITOT 0.6 02/20/2025 ALKPHOS 71 02/20/2025 AST 18 02/20/2025 ALT 19 02/20/2025 PROT 6.3 02/20/2025 ALBUMIN 4.1 02/20/2025 Lab Results Component Value Date WBC 6.48 02/22/2025 RBC 3.50 (L) 02/22/2025 HGB 11.6 (L) 02/22/2025 HCT 32.5 (L) 02/22/2025 PLT 123 (L) 02/22/2025 NRBC 0.0 02/20/2025 No results found for this or any previous visit from the past 1 day. Assessment/Plan Principal Problem: Multiple vessel coronary artery disease Active Problems: Benign essential hypertension Primary hypertension Kidney stones Type 2 diabetes mellitus treated with insulin (CMS/HCC) Unstable angina (CMS/HCC) Mixed hyperlipidemia Coronary artery disease of [place] artery of [place] heart with stable angina pectoris Other dysphagia Aneurysm of ascending aorta without rupture Nonrheumatic aortic valve stenosis Nonrheumatic aortic valve insufficiency Angina pectoris, unstable (CMS/HCC) Plan: -Continue IV heparin therapy and other medical management per cardiology and primary team - Patient reports having difficulty swallowing certain foods at home, like steak. States that sometimes it feels like food gets stuck in his throat. We will order a swallow study for a.m. - Plan for MARC tomorrow, unless he is not cleared for this by cardiology. - Ascending aneurysm appears stable on CT scan - We will await findings of the MARC and determine best treatment plan -Spoke with patient and his at bedside regarding plan of care. All questions were answered. To reach Cardiothoracic Surgery Inpatient from 8am-4pm call Ascom #[phone]. Only use [employer] chat for general questions. If unable to reach Ascom Number call hospital plate shear operator for Cardiothoracic Provider Data Examination Clerk. Cardiothoracic Surgery outpatient Office Number [phone]. Cardiothoracic Surgery outpatient .[facility]09-14-2025 NoteCardiology Inpatient Progress Note Subjective Reason for consult: Unstable angina. HPI: Zach Chamorro is a 79 y.o. year old male with significant medical history of HTN, HLD, DM, h/o prostate cancer, h/o TIA. He initially saw Dr Boucher in clinic for clearance for urologic surgery as he was having intermittent chest pain. Stress test was positive for EKG changes, ST dep 1 mm in V5-V6, neg lexiscan, TID 1.0. TTE 01/2025: EF 65-70%, no WMA, sev LVH, mild-mod . RVSP 38. He was planned for o/p cath however on 02/20 presented with chestpain to [facility]. No EKG changes, negative troponinn. He was transferred to [facility] for cath for unstable angina. He is on ASA, imdur 30, lisinopril 20, toprol 50, crestor 10. Hb 11.5, Cr 0.69 02/22/2025: Patient was seen and evaluated at the bedside today. No acute events overnight. Denies chest pain, shortness of breath, palpitations, lightheadedness or dizziness, or lower extremity edema. Remains on heparin drip. Awaiting further workup from [facility] for CABG. 12-24 hour telemetry reviewed: SR 89, 63-99. PAST MEDICAL HISTORY: Medical History[1] PAST SURGICAL HISTORY: Surgical History[2] FAMILY HISTORY: family history includes Stroke in his mother. SOCIAL HISTORY: Social History[3] REVIEW OF SYSTEMS: General: Denies fever, chills, fatigue, weight loss, or malaise. HENT: Head: Denies headache or dizziness. Eyes: Denies vision changes. Nose: Denies nasal congestion, discharge, or epistaxis. Throat: Denies pain or difficulty swallowing. Pulmonary: Denies shortness of breath, cough, wheezing, or hemoptysis. Cardiovascular: Denies chest pain, palpitations, dizziness, or syncope. Peripheral Vascular: Denies leg swelling, cold extremities or claudication. Abdomen: Denies abdominal pain, nausea, vomiting, diarrhea, constipation, or bloating. No changes in appetite. Neurological: Denies headaches, weakness, numbness, tingling, or difficulty with coordination. Skin: Denies rashes, lesions, or itching. ALLERGIES: Allergies[4] Objective 12-24 hour telemetry reviewed: SR 89, 63-99. CURRENT MEDS: allopurinol, 300 mg, oral, Daily aspirin, 81 mg, oral, Daily dutasteride, 0.5 mg, oral, Nightly insulin glargine, 10 Units, subcutaneous, q AM insulin lispro, 0-5 Units, subcutaneous, TID with meals And insulin lispro, 0-4 Units, subcutaneous, Nightly isosorbide mononitrate ER, 30 mg, oral, Daily lisinopril, 20 mg, oral, Nightly magnesium oxide, 400 mg, oral, BID [Held by provider] metFORMIN, 1,000 mg, oral, Daily with breakfast metoprolol succinate XL, 50 mg, oral, Nightly pantoprazole, 40 mg, oral, Daily rosuvastatin, 10 mg, oral, Nightly heparin, 0-28 Units/kg/hr, Last Rate: 13 Units/kg/hr (02/22/25 0647) PRN medications: acetaminophen, glucose OR dextrose 50 % in water (D50W), ondansetron ODT OR ondansetron, sennosides-docusate sodium Patient Vitals for the past 24 hrs: BP Temp Temp src Pulse Resp SpO2 Weight 02/22/25 0800 146/78 36.4 ???C (97.5 ???F) Temporal 80 20 95 % -- 02/22/25 0516 -- -- -- -- -- -- 86.2 kg (190 lb) 02/22/25 0415 139/70 36.7 ???C (98 ???F) Temporal 75 12 94 % -- 02/21/25 2350 113/53 -- -- 83 25 97 % -- 02/21/25 1935 116/58 36.7 ???C (98.1 ???F) Temporal 67 25 96 % -- 02/21/25 1610 110/61 36.6 ???C (97.9 ???F) Temporal 84 21 93 % -- 02/21/25 1120 116/68 36.6 ???C (97.9 ???F) Temporal 77 16 94 % -- BP 146/78 (BP Location: Right arm, Patient Position: Lying) Pulse 80 Temp 36.4 ???C (97.5 ???F) (Temporal) Resp 20 Ht 1.88 m (6' 2 ) Wt 86.2 kg (190 lb) SpO2 95% BMI 24.39 kg/m??? Wt Readings from Last 3 Encounters: 02/22/25 86.2 kg (190 lb) 01/19/25 88.9 kg (196 lb) PHYSICAL EXAM: General: Alert and oriented, Appears comfortable in no acute distress. HENT: Head: Normocephalic, atraumatic. Eyes: Conjunctiva clear, sclera anicteric. No periorbital edema. Nose: No nasal congestion or discharge. Throat: Mucous membranes moist and pink. Neck: Supple, no lymphadenopathy. No bruits. No jugular venous distension (JVD) at 45???. Pulmonary: Symmetrical chest rise, no accessory muscle use. Clear to auscultation bilaterally. No wheezes, rales, or rhonchi. No tenderness. Cardiovascular: No visible heaves, lifts, or abnormal pulsations. Regular rate and rhythm. S1 and S2 present without murmurs, rubs, or gallops. No S3 or S4. Peripheral Vascular: Pulses (radial, dorsalis pedis, posterior tibial) 2+ bilaterally and symmetrical. No edema, cyanosis, or clubbing. Capillary refill <2 seconds. Abdomen: Flat, no visible pulsations or distension. Bowel sounds normoactive in all quadrants. Soft, non-tender, no masses or hepatosplenomegaly. Extremities: No cyanosis, clubbing, or edema. Warm to touch, full range of motion. No tenderness. Neurological: Alert and oriented to person, place, and time. Normal sensation in all extremities. Skin: Warm, dry, and intact. No rashes, lesions, pa (more content not included)...[facility]09-13-2025 Note- lantus dose reduced to 10U daily - Continue SSI - Blood glucose is within acceptable range on 02/21 AMThe [facility]- presented to [facility] on [facility]20 with chest pain - No abnormal EKG findings. Troponins were negative. Transferred to [facility] for catheterization. - Cardiology following, appreciate recommendations - three vessel disease on cardiac cath - CT surgery following, appreciate recommendations - Work up for CABG underway - Likely will need TEEThe [facility] Note- continue allopurinolUnParkwood [facility]09-13-2025 Note- Continue imdur, lisinopril and metoprolol succinate - Blood pressure is within acceptable range on 02/21 AMUnParkwood Hospital09-13-2025 NoteContinue rosuvastatinUnParkwood Hospital09-13-2025 NoteThis report has been cancelled.[facility]09-13-2025 NoteHospital Medicine Daily Progress Note - 02/21/2025 11:46 AM; Room: 3177/3177-01 Admission: 02/20/2025 1:58 PM; Length of stay: 1 days THE HOSPITALIST TEAM PREFERS TO USE [employer] FOR NON-URGENT COMMUNICATION 7AM-7PM. IF I DO NOT RESPOND WITHIN 20 MINUTES OR URGENT MATTERS, PLEASE CALL THROUGH THE BIOMEDICAL EQUIPMENT TECH. FROM 7PM-7AM, PLEASE PAGE [phone](COVR). Code Status: Full Code Barriers to Discharge: CABG evaluation Expected Discharge Date: TBD Discharge Destination: TBD Overview Patient is seen for evaluation and management of multivessel CAD. Subjective Patient seen and examined in the morning. He was resting in bed. He was not in any acute distress. Denied chest pain at this time. Presented yesterday with chest pain and shortness of breath yesterday. He underwent cardiac cath which showed multivessel CAD. He is currently undergoing work up for CABG. Physical Exam Visit Vitals BP 116/68 (BP Location: Right arm, Patient Position: Sitting) Pulse 77 Temp 36.6 ???C (97.9 ???F) (Temporal) Resp 16 Intake/Output Summary (Last 24 hours) at 02/21/2025 1146 Last data filed at 02/21/2025 0705 Gross per 24 hour Intake 398.33 ml Output 2060 ml Net -1661.67 ml Physical Exam Vitals reviewed. Constitutional: General: He is not in acute distress. Appearance: He is not ill-appearing or toxic-appearing. HENT: Head: Normocephalic and atraumatic. Mouth/Throat: Mouth: Mucous membranes are moist. Eyes: General: No scleral icterus. Extraocular Movements: Extraocular movements intact. Pupils: Pupils are equal, round, and reactive to light. Cardiovascular: Rate and Rhythm: Normal rate. Pulmonary: Effort: Pulmonary effort is normal. No respiratory distress. Breath sounds: No stridor. Abdominal: General: There is no distension. Palpations: Abdomen is soft. Neurological: Mental Status: He is alert. Cranial Nerves: No cranial nerve deficit. Psychiatric: Mood and Affect: Mood normal. Behavior: Behavior normal. Thought Content: Thought content normal. Judgment: Judgment normal. Estimated body mass index is 22.48 kg/m??? as calculated from the following: Height as of this encounter: 1.88 m (6' 2 ). Weight as of this encounter: 79.4 kg (175 lb 1.6 oz). 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 Troponins were negative. Transferred to [facility] for catheterization. - Cardiology following, appreciate recommendations - three vessel disease on cardiac cath - CT surgery following, appreciate recommendations - Work up for CABG underway - Likely will need MARC Type 2 diabetes mellitus treated with insulin ([facility]) - lantus dose reduced to 10U daily - Continue SSI - Blood glucose is within acceptable range on 02/21 AM Mixed hyperlipidemia Continue rosuvastatin Primary hypertension - Continue imdur, lisinopril and metoprolol succinate - Blood pressure is within acceptable range on 02/21 AM Kidney stones - continue allopurinol VTE Prophylaxis: Heparin subcutaneous Scheduled Meds allopurinol, 300 mg, oral, Daily aspirin, 81 mg, oral, Daily dutasteride, 0.5 mg, oral, Nightly heparin (porcine), 5,000 Units, subcutaneous, q8h insulin glargine, 20 Units, subcutaneous, q AM insulin lispro, 0-5 Units, subcutaneous, TID with meals And insulin lispro, 0-4 Units, subcutaneous, Nightly isosorbide mononitrate ER, 30 mg, oral, Daily lisinopril, 20 mg, oral, Nightly magnesium oxide, 400 mg, oral, BID [Held by provider] metFORMIN, 1,000 mg, oral, Daily with breakfast metoprolol succinate XL, 50 mg, oral, Nightly pantoprazole, 40 mg, oral, Daily rosuvastatin, 10 mg, oral, Nightly Pertinent Investigations Hematology: Results from last 7 days Lab Units 02/21/25 0422 02/20/25 1422 WBC AUTO 10*3/uL 5.74 5.72 HEMOGLOBIN g/dL 11.5* 11.5* HEMATOCRIT % 32.6* 32.1* MCV fL 92.6 91.7 PLATELETS AUTO 10*3/uL 120* 133* Chemistry: Results from last 7 days Lab Units 02/21/25 0422 02/20/25 1422 SODIUM mmol/L 134* 134* POTASSIUM mmol/L 4.1 4.4 CHLORIDE mmol/L 103 103 CO2 mmol/L 25 24 BUN mg/dL 17 20 CREATININE mg/dL 0.63* 0.69* GLUCOSE mg/dL 137* 114* MAGNESIUM mg/dL -- 1.7* CALCIUM mg/dL 8.8 8.8 Results from last 7 days Lab Units 02/20/25 1422 AST U/L 18 ALT U/L 19 ALK PHOS U/L 71 BILIRUBIN TOTAL mg/dL 0.6 Results from last 7 days Lab Units 02/21/2582202/20/25201202/20/25 1657 POCT GLUCOSE mg/dL 150* 158* 102 Historical Values: (Includes values prior to this admission) No results found for: PREALBUMIN , TSH , T3FREE , FREET4 , CORTISOL , FEV1 , ZMT5YNA , DLCO , RVSP , HDL , LDL No results found for: [id number] , IRON , TIBC , C3 , C4 , KIM , CANCA , ASO , PSA , CEA , CA125 , CA199 , A (more content not included)... [facility]09-13-2025 Note Attestation signed by Brian Gilman MD at 02/22/2025 10:48 AM By using the attestations below, the signing clinician agrees that I have read and verify that the documentation has been personally reviewed by me and ensure that the documentation accurately reflects the encounter. GC: I performed the stewart portion(s) of the service and participated in the management and confirm the resident's documentation. Please note there may be an additional personal documentation from me. Plan on aortic stenosis assessment. Given prior ECHO with mild -mod stenosis will repeat study. Cardiology Progress Note Subjective Subjective: No acute events overnight. Had LHC yesterday which showed multivessel disease. Denies CP or SOB this morning. Patient went for CT testing. HPI: Zach Chamorro is a 79 y.o. male with PMH of HTN, HLD, DM, h/o prostate cancer, h/o TIA. He initially saw Dr Boucher in clinic for clearance for urologic surgery as he was having intermittent chest pain. Stress test was positive for EKG changes, ST dep 1 mm in V5-V6, neg lexiscan, TID 1.0. TTE 01/2025: EF 65-70%, no WMA, sev LVH, mild-mod . RVSP 38. He was planned for o/p cath however on 02/20 presented with chestpain to [facility]. No EKG changes, negative troponinn. He was transferred to [facility] for cath for unstable angina. He is on ASA, imdur 30, lisinopril 20, toprol 50, crestor 10. Hb 11.5, Cr 0.69 Objective Current Medications[1] Objective: Patient Vitals for the past 24 hrs: BP Temp Temp src Pulse Resp SpO2 Weight 02/21/25 0705 131/74 36.7 ???C (98.1 ???F) Temporal 76 25 93 % -- 02/21/25 0453 -- -- -- -- -- -- 79.4 kg (175 lb 1.6 oz) 02/21/25 0400 138/81 -- -- 74 18 95 % -- 02/21/25 0000 142/75 -- -- 75 17 94 % -- 02/20/25 2305 138/76 -- -- 71 18 95 % -- 02/20/25 2200 141/72 -- -- 73 19 92 % -- 02/20/25 2045 143/72 -- -- 76 20 93 % -- 02/20/252029 138/68 -- -- 73 16 91 % -- 02/20/252014 137/72 -- -- 82 21 95 % -- 02/20/251999 140/73 36.2 ???C (97.2 ???F) Temporal 75 19 93 % -- 02/20/25 1900 137/74 -- -- 74 19 95 % -- 02/20/25 1830 137/69 -- -- 74 19 95 % -- 02/20/25 1800 147/81 -- -- 71 16 96 % -- 02/20/25 1745 146/84 -- -- 69 18 95 % -- 02/20/25 1730 140/76 -- -- 75 24 96 % -- 02/20/25 1715 132/69 -- -- 72 18 96 % -- 02/20/25 1700 138/76 -- -- 66 18 96 % -- 02/20/25 1645 138/71 36 ???C (96.8 ???F) Temporal 73 17 95 % -- 02/20/25 1617 117/64 -- -- 83 21 94 % -- 02/20/25 1543 -- -- -- -- -- 95 % -- 02/20/25 1542 123/69 -- -- 77 25 95 % -- 02/20/25 1406 124/79 36.6 ???C (97.9 ???F) Temporal 82 10 99 % -- Physical Examination: Relevant Lab Results Encounter Date: 02/20/25 ECG 12 lead Result Value Ventricular Rate 78 Atrial Rate 78 MD Interval 166 QRS DURATION 96 QT Interval 378 QTC CALCULATION(BAZETT) 430 P Downey 0 R-Downey -29 T Wave Downey 99 Impression Normal sinus rhythm Moderate voltage criteria for LVH, may be normal variant ( R in aVL , Obed product ) Inferior infarct , age undetermined T wave abnormality consider lateral ischemia Abnormal ECG When compared with ECG of 12-OCT-2005 04:52, Inferior infarct is now Present Nonspecific T wave abnormality no longer evident in Inferior lead T wave inversion now evident in Lateral Confirmed by MD JAYME, EHAB ([id number]) on 02/20/2025 5:28:56 PM No results found for: CKTOTAL , CKMB , CKMBINDEX , TROPONINI No echocardiogram results found for the past 12 months No nuclear medicine results found for the past 12 months Relevant Imaging Results ECG 12 lead Normal sinus rhythm Moderate voltage criteria for LVH, may be normal variant ( R in aVL , Obed product ) Inferior infarct , age undetermined T wave abnormality consider lateral ischemia Abnormal ECG When compared with ECG of 12-OCT-2005 04:52, Inferior infarct is now Present Nonspecific T wave abnormality no longer evident in Inferior lead T wave inversion now evident in Lateral Confirmed by MD JAYME, EHAB ([id number]) on 02/20/2025 5:28:56 PM Cardiac catheterization PROCEDURE PHYSICIAN: Sourav Kumari MD Clinical Presentation: 79 y.o. Male presents with rest angina and a positive stress test consistent with unstable angina Final Impression: 1) Severe 3 vessel coronary artery disease Recommendation: 1) Heart team discussion for CABG and SAVR vs multivessel coronary stenting with possible TAVR Procedures Performed: coronary angiography, conscious sedation, ultrasound guidance for vascular access Procedure Description: The patient was brought to the cardiac catheterization lab in a fasting state. Informed written consent was obtained. Time-out was performed. he was prepped and draped in usual sterile fashion and was given Versed a (more content not included)...[facility]09-12-2025 NoteCase was discussed with the EWA on 02/20/2025. I personally saw the patient, reviewed the EWA's history, exam, and medical decision-making (MDM). I agree with the assessment and plan unless otherwise noted below. The EWA performed the substantive portion of the visit. Physical Exam: Visit Vitals BP 132/69 (BP Location: Right arm, Patient Position: Lying) Pulse 72 Temp 36 ???C (96.8 ???F) (Temporal) Resp 18 Cardiology: Normal rate, regular rhythm. Lungs: Clear to auscultation, no wheezes, rales or rhonchi, symmetric air entry. Abdomen: Soft, non tender, non distended. Assessment/Plan: # Multivessel coronary artery disease, status post coronary angiogram confirming multivessel coronary artery disease. CT surgery consulted. Discussed with RN. Discussed with the family at the bedside. Continue monitoring on telemetry. Continue with Toprol, rosuvastatin, lisinopril, Imdur. # Type II DM. Continue with Lantus at a lower dose and adjust accordingly. Continue to correction sliding scale with meals. Eileen Martinez MDUnParkwood Hospital09-12-2025 NoteHome lantus dose reduced to 50% of home dose. Low dose sliding scale ACHS.[facility]09-12-2025 NotePatient presented to [facility] this morning with chest pain No abnormal EKG findings. Troponins were negative. Sent here for catheterization. [facility] Plan for procedure today. Patient NPO for now. Will defer to cardiology on further management. Continue aspirin. Evidence of three vessel disease on cardiac cath. Cardiothoracic surgery consulted.[facility]09-12-2025 NotePatient: Zach Chamorro Procedure Information Date/Time: 02/20/25 1500 Procedure: Coronary angiography Location: [facility] / [facility] (Cath) Providers: Sourav Kumari MD Clinical information reviewed: Allergies Meds Physical Exam Airway Mallampati: IV TM distance: >3 FB Neck ROM: full Cardiovascular Rhythm: regular Rate: normal (+) murmur (-) friction rub, peripheral edema, systolic click, JVD Dental Pulmonary Breath sounds clear to auscultation Neurological Abdominal (-) obese Abdomen: soft Other findings: 3/6 harsh systolic murmur Anesthesia Plan ASA 4 (Moderate sedation) Anesthetic plan and risks discussed with patient. Use of blood products discussed with patient who. Additional Equipment RequestsUnParkwood Hospital09-12-2025 Note Will continue allopurinolUnParkwood Hospital09-12-2025 Note Continue rosuvastatin.[facility]09-12-2025 NoteContinue lisinopril and metoprolol succinateUnParkwood Hospital 02-20-2025 NoteHospital Medicine History and Physical 02/20/2025 3:03 PM THE HOSPITALIST TEAM PREFERS TO USE [employer] FOR NON-URGENT COMMUNICATION 7AM-7PM. IF I DO NOT RESPOND WITHIN 20 MINUTES OR URGENT MATTERS, PLEASE CALL THROUGH THE BIOMEDICAL EQUIPMENT TECH. FROM 7PM-7AM, PLEASE PAGE [phone](COVR). Chief Complaint Chest pain History of Present Illness Zach Chamorro is an 79 y.o. male who came from [facility] with chest pain. Past medical history of hypertension, hyperlipidemia, type 2 diabetes mellitus, coronary artery disease, kidney stones. Patient states that at around 2 AM he began having a sharp chest pain across his chest and back. Patient stated at that time he took Tylenol. He stated pain improved around 7 AM. He states that chest pain at [facility] was really mild. No chest pain currently but states it is off-and-on feeling. He does state that his chest pain is predictable with exertion especially when lifting heavy things. He states he often sits down and rests and the pain goes away. Patient further endorses sweats, cough, back pain from kidney stone, lightheadedness, dizziness. Patient denies fever, chills, chest pain, palpitations, shortness of breath, abdominal pain, nausea, vomiting,diarrhea, alcohol use, drug use, smoking. Labs: Sodium 134, creatinine 0.69, magnesium 1.7, initial troponin 4, RBC 3.5, hemoglobin 11.5, hematocrit 32.1%. Cardiac catheterization: Severe 3 vessel coronary artery disease Left main: Normal LAD: There is a proximal 80% ulcerated stenosis. The second large diagonal branch has a proximal 80% stenosis LCX: The distal vessel has a discrete 80% stenosis RCA: There is diffuse calcfication throughout the proximal and mid-vessel. Review of System and Physical Exam Temp: [36.6 ???C (97.9 ???F)] 36.6 ???C (97.9 ???F) Heart Rate: [82] 82 Resp: [10] 10 BP: (124)/(79) 124/79 Physical Exam Constitutional: General: He is not in acute distress. Appearance: Normal appearance. HENT: Head: Normocephalic and atraumatic. Eyes: Extraocular Movements: Extraocular movements intact. Pupils: Pupils are equal, round, and reactive to light. Cardiovascular: Rate and Rhythm: Normal rate and regular rhythm. Pulses: Normal pulses. Heart sounds: Murmur heard. Pulmonary: Effort: Pulmonary effort is normal. Breath sounds: Normal breath sounds. Abdominal: General: Abdomen is flat. There is no distension. Palpations: Abdomen is soft. Tenderness: There is no abdominal tenderness. Musculoskeletal: Right lower leg: No edema. Left lower leg: No edema. Skin: General: Skin is warm and dry. Neurological: General: No focal deficit present. Mental Status: He is alert and oriented to person, place, and time. Review of Systems Constitutional: Positive for diaphoresis. Negative for chills, fatigue and fever. Eyes: Negative for visual disturbance. Respiratory: Positive for cough. Negative for shortness of breath and wheezing. Cardiovascular: Negative for chest pain, palpitations and leg swelling. Gastrointestinal: Negative for abdominal pain, diarrhea, nausea and vomiting. Musculoskeletal: Positive for back pain (from kidney stone). Neurological: Positive for dizziness and light-headedness. Negative for weakness, numbness and headaches. Psychiatric/Behavioral: Negative for confusion and decreased concentration. Assessment and Plan Assessment & Plan Angina pectoris, unstable ([facility]) Patient presented to [facility] this morning with chest pain No abnormal EKG findings. Troponins were negative. Sent here for catheterization. Patient admitted to [facility] for procedure. Plan for procedure today. Patient NPO for now. Will defer to cardiology on further management. Continue aspirin. Evidence of three vessel disease on cardiac cath. Cardiothoracic surgery consulted. Type 2 diabetes mellitus treated with insulin ([facility]) Home lantus dose reduced to 50% of home dose. Low dose sliding scale ACHS. Mixed hyperlipidemia Continue rosuvastatin. Primary hypertension Continue lisinopril and metoprolol succinate Kidney stones Will continue allopurinol VTE Prophylaxis: Will start AFTER PROCEDURE ----- Focus of this inpatient stay will remain on problems that need acute care setting for care. We will review available studies and will order additional labs, imaging and other studies as appropriate. As needed medicines are ordered as appropriate. VTE Prophylaxis will be ordered as appropriate. Please see above for management plan for individual hospital problems. Home medications are reviewed and will be continued as appropriate. Patient will be continued to be followed during this hospital stay by a member of [facility]. Past Medical History Medical History[1] Past Surgical History Surgical History[2] Social History Social History Socioeconomic History Marital status: Spouse name: Not on file Number of children: Not (more content not included)...[facility]08-26-2025 History of Present illness Narrative* Blake Ng MD - 02/03/2025 12:14 PM EDTAssociated Problem(s): Type 2 diabetes mellitus with hyperglycemia, with long-term current use of insulin (HCC) BS controlled and starting to drop low. Decrease lantus to 40 units daily and check BS TID. Stick to ADA diet and limit carbs. * Blake Ng MD - 02/03/2025 12:14 PM EDTAssociated Problem(s): Renal calculi Occasional pain and needs procedure but heart cath first 03/06. * Blake Ng MD - 02/03/2025 12:13 PM EDTAssociated Problem(s): Peptic ulcer disease Symptoms controlled with nexium and continue. * Blake Ng MD - 02/03/2025 12:13 PM EDTAssociated Problem(s): BPH without urinary obstruction Symptoms controlled with flomax and continue. Follow with urology. * Blake Ng MD - 02/03/2025 12:13 PM EDTAssociated Problem(s): Benign essential hypertension BP controlled and monitor PRN. * Blake Ng MD - 02/03/2025 10:30 AM EDT Images from the original note were not included. Subjective Patient ID: Zach Chamorro is a 79 y.o. male who presents for Follow-up (6m). Follow up DM, HTN, BPH, GERD, and allergies. Seen for preop clearance last month and reported chestpain. Stress test abnormal and referred to cardiology. [...] continue. Follow with urology. documented in this encounterSaint Luke's East [id number] History of Present illness Narrative* Isabella Powell, JAMEEL - 01/26/2025 9:15 AM EDT Images from [...] Isabella Powell DPM documented in this encounterSaint Luke's East [id number] Instructions* Patient Instructions* Isabella Powell DPM - 01/26/2025 9:15 AM EDT As noted documented in this encounterSaint Luke's East [id number] NoteUT Cardiology - [facility] Subjective Zach Chamorro is a 79 [...] is referred to me by Dr. Blake Naderer his PCP due to abnormal stress test. [...] 1,000 mcg tablet extend (more content not included)...[facility]07-25-2025 History of Present illness Narrative* Blake Ng MD - 01/02/2025 12:56 PM EDTAssociated Problem(s): Type 2 diabetes mellitus with hyperglycemia, with long-term current use of insulin (HCC) BS stable and check BS TID. Stick to ADA diet and limit carbs. * Blake Ng MD - 01/02/2025 12:56 PM EDTAssociated Problem(s): Thrombocytopenia Mild and stable since 2018. Likely related to aspirin. * Blake Ng MD - 01/02/2025 12:55 PM EDTAssociated Problem(s): Renal calculi Follow with urology for removal. * Blake Ng MD - 01/02/2025 12:55 PM EDTAssociated Problem(s): [...] 7 days prior to surgery. * Blake Ng MD - 01/02/2025 12:54 PM EDTAssociated Problem(s): Other chest pain Increased discomfort and fatigue. Likely related to dehydration and muscular but patient with risk factors for CAD. Check lexiscan cardiolyte stress test. * Blake Ng MD - 01/02/2025 12:53 PM EDTAssociated Problem(s): Abnormal EKG EKG with T changes but present on EKG in 2023 prior to stress test. Likely benign. * Blake Ng MD - 01/02/2025 12:52 PM EDTAssociated Problem(s): Benign essential hypertension BP controlled and monitor PRN. * Blake Ng MD - 01/02/2025 11:45 AM EDT Images [...] times will occur after us ing riding paper winder. Notice overall increased fatigue over past few [...] test with myocardial perfusion documented in this encounterSaint Luke's East [id number] Hospital Discharge instructions Patient Education 12/29/2024 08:56:27 Cancer Screening for Males Cancer Screening for Males A cancer screening is a test or exam that checks for cancer. Work with your health care provider tocreate a cancer screening schedule that protects your health. Who should have screening? All people who are male should be considered for screening of certain cancers, including colorectalcancer, prostate cancer, lung cancer, and skin cancer. Your health care provider may recommend screenings for other types of cancer if: You have had cancer before. You have a family member with cancer. You have genes that could increase the risk of cancer. You have risk factors for certain cancers, such as current or past use of tobacco products or beingoverweight. What are the benefits of screening? Cancer screening is done to look for cancer in the very early stages, before it spreads and becomesharder to treat and before you would start [...] a flexible tube with a small camera isinserted into the rectum. CT colonography. This test [...] stool. For this test, you will need tocollect stool samples at home. Stool DNA test. This test looks for blood in stool and any changes in DNA that can lead to colon cancer. For this test, you will need to collect a stool sample at home and send it to a lab. All adults should have screenings starting at 45 years old and continuing through 75 years old. Formales 76 85 years old, the decision to [...] start screening at an earlier age. Talk withyour health care provider about which screening test [...] old. Talk with your health care provider aboutwhether screening is right for you and, if [...] if anything looks unusual. Males with a [id number] risk for skin cancer may want to see a seafood specialist (head operator) for an annual body check. Where to find more information [place] [employer]: cancer.org Centers for Disease Control and Prevention: cdc.gov National Cancer [place]: cancer.gov Contact a health care provider if: [...] provider. Document Revised: 06/05/2023 Document Reviewed: 12/18/2022 [employer] Patient Education 2023 1-4 All. Follow Up Care 12/28/2023 10:42:14 With:MIKEY ARORA, Jermaine Cano, URL Address: [facility] [address], [place] [address]- When: Unknown [facility] 07-21-2025 NotePatient Education Oncology Cancer Screening for Males A cancer screening is a test or exam that checks for cancer. Work with your health care provider tocreate a cancer screening schedule that protects your health. Who should have screening? All people who are male should be considered for screening of certain cancers, including colorectalcancer, prostate cancer, lung cancer, and skin cancer. [...] very early stages, before it spreads and becomesharder to treat and before you would start [...] old and continuing through 75 years old. Formales 76?85 years old, the decision to be screened should be based on a person's preferences, life expectancy, overall health, and prior screening history. Your health care provider may recommend screening before 45 years old. You will have tests every 1?10 years, depending on your results and the type of screening test. People at increased risk should start screening at an earlier age. Talk withyour health care provider about which screening test [...] such as being an person or having aclose family member with prostate cancer. ??? You have had gene changes or a genetic condition that was passed on to you from a parent (inherited). These gene changes or genetic conditions include BRCA1 or BRCA2 gene mutations or Farah syndrome. ??? You have symptoms of prostate cancer, such as problems urinating or problems getting or keepingan erection (erectile dysfunction). When you have been screened for prostate cancer, future screening may be recommended based on the results of your blood tests. Prostate cancer screening for males with average risk may start at 50 years old. Males with risk factors may need to be screened earlier, at 40?45 years old. Talk with your health care provider aboutwhether screening is right for you and, if [...] if anything looks unusual. Males with a isjwfl-ybri-oeurlf risk for skin cancer may want to see a seafood specialist (dermatologi (more content not included)...[facility]05-27-2025 Evaluation note* Diagnosis Onset Date Resolution Status Admit Date Prostate cancer acuteMay 2024 9:41amProstate canceracuteMay 2024 9:41am [facility] Work Phone: 1(943) 757-835405-27-[address] [facility] [place] [address] Cancer Center Note Signed Patient: Zach Chamorro MR#: [id number] : 1945 Acct:[id number] Age/Sex: 79 / M Type: DEP AMB Date of Service: 11/04/24 Copies to: Blake Ng MD~ Assessment & Plan A/P (1) Prostate cancer: Plan: Return to clinic with WOOD MODEL BUILDER Apr 2025 with next PSA Assessment: 78-year-old [...] prostate Patient Instructions: follow-up in 6mo with WOOD MODEL BUILDER PSA in 6mo CHEMO PLAN No Active [...] lymphadenopathy PI-RADS 4 MR fusion biopsy confirmed Thorndale 3+4 equal 7 in 3 cores including the region of interest as well as the right anterior medial gland and Thorndale 3+3 equal 6 in 1 core at [...] Known Allergies Allergy (Verified 09/18/23 10:05) [facility] Medical History Medical History (Updated [...] et al, and the Measurement Committeeof the [place] [employer]. The [place] [employer] symptom index for benign prostatic hyperplasia. J Urol. 1992; 148: 7636-3645. Copyright 1992 [employer] [employer] Over the past six months [...] the time) IMER Total: 6 Dictated By: Ingrid Bertrand APRN DD/ 0948 Signed By: 11/04/24 1012 [facility]05-12-2025 History of Present illness Narrative * Jaycob Ferguson, DO - 10/20/2024 11:15 AM EDT Images from the original note were not included. @Eagle PharmaceuticalsDATE@ Zach D Ashtyn is a 79 y.o. male who [...] note was created using voice recognition through [employer]. documented in this encounterSaint Luke's East HospitalCcvxllmiew92-01-6034 History of Present illness Narrative* Isabella Florecita Powell, DPM - 10/13/2024 9:15 AM EDT Images [...] Isabella Powell DPM documented in this encounterSaint Luke's East HospitalRijjjhujlo95-49-0241 History of Present illness Narrative* Blake Ng [...] Items Addressed This Visit Benign essential hypertension (CMS/HCC) Type 2 diabetes mellitus with hyperglycemia, with long-term current use of insulin (CMS/[facility]) Relevant Orders Hemoglobin A1c Microalbumin / [...] 25 MG tablet documented in this encounterSaint Luke's East HospitalCprszchnvd50-65-7948 History of Present illness Narrative* Symone Mcmahon MD - 07/21/2024 9:45 AM EST Skin Check Location: Patient requests a skin examination from the waist up Dermatologic history: history of Actinic Keratosis Last visit: 1 year ago Follow up Diagnosis: Nummular eczema Location: ankles Last visit: 1 year ago Symptoms: red, scaly Status: stable Current treatment: Amlactin 12% lotion from manager clinical. Has TAC 0.1% cream but does not [...] limited to risks of scarring, darker or mannequin wig maker pigmentary changes, recurrence, incomplete removal and infection. [...] Visit: 1 year documented in this encounterSaint Luke's East HospitalPxhxuhmrhj14-27-7255 History of Present illness Narrative* Isabella Powell [...] understanding. Isabella Powell DPM documented in this [facility]01-27-2025 Instructions* Patient Instructions* Isabella Powell DPM - 07/07/2024 9:30 AM EST As noted documented in this [facility]01-10-2025 History of Present illness Narrative* Blake Ng MD - 06/20/2024 10:05 AM ESTAssociated Problem(s): Type 2 diabetes mellitus with hyperglycemia, with long-term current use of in sulin ([facility]) BS stable and warned prednisone will [...] hyperglycemia, with long-term current use of insulin ([facility]) BS stable and warned prednisone will [...] 750 MG tablet documented in this encounterSaint Luke's East HospitalPjvuhamtld56-63-7314 History of Present illness Narrative* Isabella Powell, TANESHAM - 05/15/2024 9:45 AM EST Images from [...] understanding. Isabella Powell DPM documented in this [facility]12-05-2024 Instructions* Patient Instructions* Isabella Powell DPM - 05/15/2024 9:45 AM EST As noted documented in this [facility]11-11-2024 Telephone encounter Note* Telephone Encounter - [facility] - 04/21/2024 10:57 AM EST Patient is keeping diabetic shoes [facility] [id number] Miscellaneous Notes* Telephone Encounter - [facility] - 04/21/2024 10:57 AM EST Patient is keeping diabetic shoes documented in this [facility]11-04-2024 History of Present illness Narrative* [...] Isabella Powell DPM documented in this encounterSaint Luke's East HospitalXeivklguzn95-06-1877 Instructions* Patient Instructions* Isabella Powell DPM - 04/14/2024 2:45 PM EST Instructions as noted documented in this encounterSaint Luke's East HospitalVetdsuhvzb74-36-2019 History of Present illness Narrative* Isabella Powell DPM - 04/02/2024 1:30 PM EDT Images from the original note were not included. Subjective Patient ID: Zach Chamorro is a 78 y.o. male who presents for Shoe supervisor varnish (Zach Chamorro is a 78 y.o. 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 BS: 113 A1C: 7.1/Lv Dr. Ng 01/28/2024/SS: [...] understanding. Isabella Powell DPM documented in this [facility]10-23-2024 Instructions* Patient Instructions* Isabella Powell DPM - 04/02/2024 1:30 PM EDT Acclimating instructions as noted documented in this encounterSaint Luke's East HospitalXcnxjaipqy06-77-8688 History of Present illness Narrative* Isabella Powell, DPM - 03/26/2024 2:30 PM EDT Images [...] Measurements obtained in the weight-bearing position; utilizing Stealth Therapeuticsnock device. Patient education relative to appropriate sizing [...] understanding. Isabella Powell DPM documented in this [facility]10-16-2024 Instructions* Patient Instructions* Isabella Powell DPM - 03/26/2024 2:30 PM EDT As noted documented in this [facility]10-14-2024 History of Present illness Narrative* [...] Isabella Powell DPM documented in this encounterSaint Luke's East HospitalCddufxcnws38-50-8122 Hospital Discharge instructions Patient Education 12/28/2023 10:30:14 [...] include: ?8 oz (237 mL) of milk, pzenbee-lcgrfetbymjm-mbwke milk, and calcium- fortifiedfruit juice. Calcium-fortified means [...] ?Spinach (cooked), rhubarb, beets, sweet potatoes, and Zambian chard. ?Peanuts. ?Potato chips, armenian fries, and baked potatoes with skin on. ?Nuts and nut products. ?Chocolate. If you regularly take a diuretic medicine, make sure to eat at least 1 or 2 servings of fruits or vegetables that are high in potassium each day. These include: ?Avocado. ?Banana. ?Taney, prune, carrot, or tomato juice. ?Baked potato. [...] magnesium, fish oil, or vitamin B6. Take eljm-bfy-esfxijr and prescription medicines only as told by [...] Casseroles. Pizza. Lasagna. Frozen meals. Potato chips. Yakut fries. The items listed above may not [...] provider. Document Revised: 09/07/2022 Document Reviewed: 09/07/2022 [employer] Patient Education 2022 1-4 All. Follow Up Care 12/29/2022 08:54:47 With:MIKEY ARORA, Jermaine Cano, URL Address: [address] [place] [address]- When: Unknown [facility] 02-08-2024 History of Present illness Narrative* [...] Current treatments: AmLactin 12% lotion recommended by manager clinical Established patient All pertinent medical history, medications, [...] year, skin check documented in this encounterSaint Luke's East HospitalDjaxdufypq94-90-2356 Progress note Author Rosa Samson [facility] December 13, 2022 10:35amNote Date/TimeJuly 2022 10:09[facility] at [place] [id number] Rad Onc Follow Up Note - OP Signed Patient: Zach Chamorro MR#: [id number] : 1945 Acct:[id number] Age/Sex: 77 / M Type: REG RCR [...] biopsy findings. There was a singlecore of Thorndale 3+3+6 disease that was found on the [...] motor or sensory changes. No fever, chills ornight sweats. His appetite and weight remain stable. [...] Document 12/13/22 09:34 SM (Rec: 12/13/22 09:34 SM [id number]) Distress Screening [...] residual skin reaction. Rectal examination was deferred today.No leg edema. Patient remains neurologically stable Results Total PSA 2.090 ng/mL (0.000-4.000) 09/04/22 13:40 Impression: Adenocarcinoma the prostate, Thorndale score 3+4= 7, intermediate risk with initial [...] signed by Rosa Davies MD> 12/13/22 1035 [facility] Work Phone: 1(284) 332-758304-03-2023 Progress note Author Rosy Pina [facility] September 11, 2022 1:20pmNote Date/TimeApr2022 10:21[facility] [place] [address] Rad Onc Follow Up Note - OP Signed Patient: Zach Chamorro MR#: [id number] : 1945 Acct:[id number] Age/Sex: 77 / M Type: REG RCR Copies to: MD Jeramine Quintero MD~ Date of Service Service Date: [...] mL and was on tamsulosin 0.4 mg dailydue to the BPH at presentation. On June [...] lymphadenopathy PI-RADS 4 MR fusion biopsy confirmed Thorndale 3+4 equal 7 in 3 cores including [...] BPHat baseline so he did require an increasein Flomax to twice daily. Posttreatment PSAs September 04, 2022 2.09 At his last follow-up AUA increased to 14 reporting nocturia 4 times a night as well as increased urgency and frequency. Quality of life is mostly satisfied. He denies any significant change in bowelhabits. He returns to clinic today and AUA [...] signed by Rosy Pina MD> 09/11/22 1320 [facility] Work Phone: 1([phone]) 485-636404-03-2023 Progress note Author Norleena [facility]vanaCosho[facility] September 11, 2022 1:20pmNote Date/TimeApril 2022 10:21[facility] at [place] [id number] Rad Onc Follow Up Note - OP Signed Patient: Zach Chamorro MR#: [id number] : 1945 Acct:[id number] Age/Sex: 77 / M Type: REG RCR Copies to: MD Jermaine Quintero MD~ Date of Service Service Date: 09/11/22 Assessment & Plan (1) Prostate cancer Plan: Return to clinic December 2022 for PSA Assessment: 77-year-old male with 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 Multi parametric MRI is consistent with the biopsy findings. There was a singlecore of Tanna 3+3+6 disease that was found on the left- no extracapsular extension. Patient has a large prostate gland 78 mL and was on tamsulosin 0.4 mg dailydue to the BPH at presentation. On June [...] as the right anterior medial gland and Thorndale 3+3 equal 6 in 1 core at [...] BPHat baseline so he did require an increasein Flomax to twice daily. Posttreatment PSAs September 04, 2022 2.09 At his last follow-up AUA increased to 14 reporting nocturia 4 times a night as well as increased urgency and frequency. Quality of life is mostly satisfied. He denies any significant change in bowelhabits. He returns to clinic today and AUA [...] signed by Rosy Pina MD> 09/11/22 1320 [facility] Work Phone: 1(750) 107-776002-01-2023 Progress note Author Rosy Pina [facility] July 12, 2022 9:52amNote Date/TimeFebruary 2022 9:36am[facility] at [address] [address] Rad Onc Follow Up Note - OP Signed Patient: Zach Chamorro MR#: [id number] : 1945 Acct:[id number] Age/Sex: 76 / M Type: REG RCR [...] biopsy findings. There was a singlecore of Thorndale 3+3+6 disease that was found on the left- no extracapsular extension. Patient has a large prostate gland 78 mL and was on tamsulosin 0.4 mg dailydue to the BPH at presentation. On June [...] months which is 3 months posttreatment for hisfirst PSA. Ideally we can reduce the Flomax [...] lymphadenopathy PI-RADS 4 MR fusion biopsy confirmed Thorndale 3+4 equal 7 in 3 cores including the region of interest as well as the right anterior medial gland and Thorndale 3+3 equal 6 in 1 core at [...] BPHat baseline so he did require an increasein Flomax to twice daily. He returns to [...] <Electronically signed by Rosy Pina MD> 07/12/2252 [facility] Work Phone: 1(687) 551-556902-01-2023 Progress note Author Rosy Pina [facility] July 12, 2022 9:52amNote Date/TimeFebruary 2022 9:36[facility] [place] [address] Rad Onc Follow Up Note - OP Signed Patient: Zach Chamorro MR#: [id number] : 1945 Acct:[id number] Age/Sex: 76 / M Type: REG RCR [...] mL and was on tamsulosin 0.4 mg dailydue to the BPH at presentation. On June [...] months which is 3 months posttreatment for hisfirst PSA. Ideally we can reduce the Flomax [...] lymphadenopathy PI-RADS 4 MR fusion biopsy confirmed Thorndale 3+4 equal 7 in 3 cores including the region of interest as well as the right anterior medial gland and Thorndale 3+3 equal 6 in 1 core at [...] BPHat baseline so he did require an increasein Flomax to twice daily. 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 I reviewed his MRI and pathology. Multi parametric MRI is consistent with the biopsy findings. There is a single core of Tanna 3+3+6 disease that was foundon the left. There is no extracapsular extension. The patient's gland is largeat 78mL and he remains on tamsulosin 0.4 mg [...] to his age so is interested in noninvasivemanagement with radiation. I recommend definitive SBRT to [...] for immobilization and CT simulation. Short and long- term side effects were reviewed in detail and his questions were answered. He was consented to receive care. Patient was counseled at length regarding the risk of increased short and long- term toxicity toxicity seen with uncontrolled diabetes. He was counseled to work closely with her primary care physicianto ensure blood sugars were normalized during his [...] lymphadenopathy PI-RADS 4 MR fusion biopsy confirmed Thorndale 3+4 equal 7 in 3 cores including [...] 10 years since his last colonoscopy. 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 I reviewed his MRI and pathology. Multi parametric MRI is consistent with the biopsy findings. There is a single core of Thorndale 3+3+6 disease that was foundon the left. There is no extracapsular extension. The patient's gland is largeat 78mL and he remains on tamsulosin 0.4 mg [...] to his age so is interested in noninvasivemanagement with radiation. I recommend definitive SBRT to [...] immobilization and CT simulation. Short and long-term bev e effects were reviewed in detail and his questions were answered. He was consented to receive care. Patient was counseled at length regarding the risk of increased short and long- term toxicity toxicity seen with uncontrolled diabetes. He was counseled to work closely with her primary care physicianto ensure blood sugars were normalized during his [...] lymphadenopathy PI-RADS 4 MR fusion biopsy confirmed Thorndale 3+4 equal 7 in 3 cores including [...] 10 years since his last colonoscopy. [facility] - Medical History Medical History: [...] intact Dictated By: Rosy Pina MD DD/ 08 Signed By: <Electronically signed by Rosy Pina MD> 04/27/22 1321 [facility] Work Phone: 1(355) 943-830611-04-2022 Hospital Discharge instructions Patient Education 04/14/2022 11:00:48 [...] who: Are older than age 65. Are -Chadian. Are obese. Have a family history of [...] cells. Follow these instructions at home: Take jpmy-lwk-vqsoapk and prescription medicines only as told by [...] 05/28/2006 Document Revised: 05/10/2018 Document Reviewed: 02/05/2017 [employer] Patient Education 2020 [employer] Follow Up Care 04/12/2022 09:44:29 With:MIKEY ARORA, Jermaine Cano, URL Address: [address] [place], [place] [id number]- When: Unknown [facility] Hospital Discharge instructions Patient Education 03/28/2022 [...] for your post-operative appointment in 1-2 weeks [phone] or [phone] Follow Up Care 03/16/2022 13:18:55 With:Jermaine JENSEN Address: [facility] [address] [place] [address]- Business (1) When:04/11/2022 12:14:30 [facility]07-15-2022 Hospital Discharge instructions Patient Education 12/23/2021 [...] urethra. Follow these instructions at home: Take ccfs-ujn-zqwafam and prescription medicines only as told by [...] 05/28/2006 Document Revised: 04/22/2019 Document Reviewed: 07/02/2017 [employer] Patient Education 2020 1-4 All. Follow Up Care 12/17/2020 09:28:14 With:MIKEY ARORA, Jermaine Cano, URL Address: [address] [place] [address]- When:Within 1 Year(s) Comments:w/ PSA & KUB [facility] 05-17-2022 NoteHNO ID: [id number] Author: Haroldo Sebastian MD Service: ? Author [...] Haroldo Sebastian MD October 25, 2021 1:55 [facility]05-17-2022 History of Present illness Narrative* Haroldo [...] 25, 2021 1:55 PM documented in this encounterBluff[facility] HospitalEvaluation + Plan note Future Appointments Appointment Date:12/29/2022 08:00:00 AM Scheduled Provider[facility]EN [facility] Office Visit Diagnostic Tests Pending * PSA Free & Total 10/09/22 [facility] evaluation + Plan note Future Appointments Appointment Date:04/14/2022 10:30:00 AM Scheduled Provider:Jermaine JENSEN MD Location[facility] Appointment Type:URO Procedure 15 min Appointment Date:12/29/2022 08:00:00 AM Scheduled Provider:Jermaine JENSEN [facility]O Office Visit Diagnostic Tests Pending * Prostate Histology ([facility]) [facility]/28/22 [facility] Future Appointments Appointment Date:12/29/2022 08:00:00 AM Scheduled Provider:Jermaine JENSEN MD Location:[facility] Appointment Type:URO Office Visit [facility] evaluation + Plan note Future Appointments Appointment Date:06/30/2024 09:45:00 AM Scheduled Provider:Jermaine JENSEN MD Location:[facility] Appointment Type:URO Office Visit Diagnostic Tests Pending * PSA Total 05/11/24 [facility] evalzxmxxf note* Diagnosis Iris nevus, left- Primary Dislocation of intraocular lens, sequela documented in this encounter [facility]Evaluation noteNo assessment information available[facility] Work Phone: evaluation note* Diagnosis Onset Date Resolution Status Prostate cancer [facility] Work Phone: Evaluation note* Diagnosis Nummular eczema- Primary Contact dermatitis and other eczema, due to unspecified cause Seborrheic keratosis Melanocytic nevus of trunk Benign neoplasm of skin of trunk, except scrotum Lentigines Angioma of skin History of actinic keratoses Personal history of diseases of skin and subcutaneous tissue documented in this encounter [facility]* Diagnosis Onset Date Resolution Status Prostate cancer acuteProstate cancerMagruder [facility] Work Phone: evaluation note* Diagnosis Type [...] polyneuropathy associated with type 2 diabetes mellitus ([facility]) Encounter for long-term (current) use of insulin ([facility]) Encounter for long-term (current) use of insulin documented in this [facility]* Diagnosis Type 2 diabetes mellitus with hyperglycemia, with long-term current use of insulin ([facility])- Primary Benign essential hypertension ([facility]) Essential hypertension, benign BPH without urinary obstruction Peptic ulcer disease Peptic ulcer, unspecified site, unspecified as acute or chronic, without mention of hemorrhage, perforation, or obstruction Seasonal allergic rhinitis due to pollen Chest pain at rest- Primary Unspecified chest pain Type 2 diabetes mellitus with hyperglycemia, with long-term current use of insulin ([facility]) Type 2 diabetes mellitus with hyperglycemia, with long-term current use of insulin ([facility])- Primary Benign essential hypertension ([facility]) Essential hypertension, benign Peptic ulcer disease Peptic ulcer, unspecified site, unspecified as acute or chronic, without mention of hemorrhage, perforation, or obstruction BPH without urinary obstruction Seasonal allergic rhinitis due to pollen Diabetic polyneuropathy associated with type 2 diabetes mellitus ([facility])- Primary Encounter for long-term (current) use of insulin ([facility]) Encounter for long-term (current) use of insulin documented in this encounter [facility]* Diagnosis Type 2 diabetes mellitus with hyperglycemia, with long-term current use of insulin ([facility])- Primary Benign essential hypertension ([facility]) Essential hypertension, benign BPH without urinary obstruction Peptic ulcer disease Peptic ulcer, unspecified site, unspecified as acute or chronic, without mention of hemorrhage, perforation, or obstruction Seasonal allergic rhinitis due to pollen Chest pain at rest- Primary Unspecified chest pain Type 2 diabetes mellitus with hyperglycemia, with long-term current use of insulin ([facility]) Type 2 diabetes mellitus with hyperglycemia, with long-term current use of insulin ([facility])- Primary Benign essential hypertension ([facility]) Essential hypertension, benign Peptic ulcer disease Peptic ulcer, unspecified site, unspecified as acute or chronic, without mention of hemorrhage, perforation, or obstruction BPH without urinary obstruction Seasonal allergic rhinitis due to pollen Diabetic polyneuropathy associated with type 2 diabetes mellitus ([facility] [facility])- Primary Encounter for long-term (current) use of insulin ([facility]) Encounter for long-term (current) use of insulin documented in this encounter [facility] HealthcareEvaluation note* Diagnosis Type 2 diabetes mellitus with hyperglycemia, with long-term current use of insulin ([facility])- Primary Benign essential hypertension ([facility]) Essential hypertension, benign BPH without urinary obstruction Peptic ulcer disease Peptic ulcer, unspecified site, unspecified as acute or chronic, without mention of hemorrhage, perforation, or obstruction Seasonal allergic rhinitis due to pollen Chest pain at rest- Primary Unspecified chest pain Type 2 diabetes mellitus with hyperglycemia, with long-term current use of insulin ([facility]) Type 2 diabetes mellitus with hyperglycemia, with long-term current use of insulin ([facility])- Primary Benign essential hypertension ([facility]) Essential hypertension, benign Peptic ulcer disease Peptic ulcer, unspecified site, unspecified as acute or chronic, without mention of hemorrhage, perforation, or obstruction BPH without urinary obstruction Seasonal allergic rhinitis due to pollen Type 2 diabetes mellitus with hyperglycemia, with long-term current use of insulin ([facility])- Primary documented in this encounter [facility] HealthcareEvaluation note* Diagnosis Type 2 diabetes mellitus with hyperglycemia, with long-term current use of insulin ([facility])- Primary Benign essential hypertension ([facility]) Essential hypertension, benign BPH without urinary obstruction Peptic ulcer disease Peptic ulcer, unspecified site, unspecified as acute or chronic, without mention of hemorrhage, perforation, or obstruction Seasonal allergic rhinitis due to pollen Chest pain at rest- Primary Unspecified chest pain Type 2 diabetes mellitus with hyperglycemia, with long-term current use of insulin ([facility]) Type 2 diabetes mellitus with hyperglycemia, with long-term current use of insulin ([facility])- Primary Benign essential hypertension ([facility]) Essential hypertension, benign Peptic ulcer disease Peptic ulcer, unspecified site, unspecified as acute or chronic, without mention of hemorrhage, perforation, or obstruction BPH without urinary obstruction Seasonal allergic rhinitis due to pollen 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 ([facility])- Primary Diabetic polyneuropathy associated with type 2 diabetes mellitus ([facility]) Swelling of left foot Encounter for long-term (current) use of insulin ([facility]) Encounter for long-term (current) use of insulin documented in this encounter [facility] HealthcareEvaluation note* Diagnosis Type 2 diabetes mellitus with hyperglycemia, with long-term current use of insulin ([facility])- Primary Benign essential hypertension ([facility]) Essential hypertension, benign BPH without urinary obstruction Peptic ulcer disease Peptic ulcer, unspecified site, unspecified as acute or chronic, without mention of hemorrhage, perforation, or obstruction Seasonal allergic rhinitis due to pollen Chest pain at rest- Primary Unspecified chest pain Type 2 diabetes mellitus with hyperglycemia, with long-term current use of insulin ([facility]) Type 2 diabetes mellitus with hyperglycemia, with long-term current use of insulin ([facility])- Primary Benign essential hypertension ([facility]) Essential hypertension, benign Peptic ulcer disease Peptic ulcer, unspecified site, unspecified as acute or chronic, without mention of hemorrhage, perforation, or obstruction BPH without urinary obstruction Seasonal allergic rhinitis due to pollen Acute non-recurrent maxillary sinusitis- Primary Type 2 diabetes mellitus with hyperglycemia, with long-term current use of insulin ([facility]) documented in this encounter [facility]Evaluation note* Diagnosis Type 2 diabetes mellitus with hyperglycemia, with long-term current use of insulin ([facility])- Primary Benign essential hypertension ([facility]) Essential hypertension, benign BPH without urinary obstruction Peptic ulcer disease Peptic ulcer, unspecified site, unspecified as acute or chronic, without mention of hemorrhage, perforation, or obstruction Seasonal allergic rhinitis due to pollen Chest pain at rest- Primary Unspecified chest pain Type 2 diabetes mellitus with hyperglycemia, with long-term current use of insulin ([facility]) Type 2 diabetes mellitus with hyperglycemia, with long-term current use of insulin ([facility])- Primary Benign essential hypertension ([facility]) Essential hypertension, benign Peptic ulcer disease Peptic ulcer, unspecified site, unspecified as acute or chronic, without mention of hemorrhage, perforation, or obstruction BPH without urinary obstruction Seasonal allergic rhinitis due to pollen Acute non-recurrent maxillary sinusitis- Primary Type 2 diabetes mellitus with hyperglycemia, with long-term current use of insulin ([facility]) Dermatophytosis of nail- Primary Dystrophic nail Other specified disease of nail Diabetic polyneuropathy associated with type 2 diabetes mellitus ([facility]) 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 ([facility]) Encounter for long-term (current) use of insulin ([facility]) Encounter for long-term (current) use of insulin documented in this encounter [facility] HealthcareEvaluation note* Diagnosis Type 2 diabetes mellitus with hyperglycemia, with long-term current use of insulin ([facility])- Primary Benign essential hypertension ([facility]) Essential hypertension, benign BPH without urinary obstruction Peptic ulcer disease Peptic ulcer, unspecified site, unspecified as acute or chronic, without mention of hemorrhage, perforation, or obstruction Seasonal allergic rhinitis due to pollen Chest pain at rest- Primary Unspecified chest pain Type 2 diabetes mellitus with hyperglycemia, with long-term current use of insulin ([facility]) Type 2 diabetes mellitus with hyperglycemia, with long-term current use of insulin ([facility])- Primary Benign essential hypertension ([facility]) Essential hypertension, benign Peptic ulcer disease Peptic ulcer, unspecified site, unspecified as acute or chronic, without mention of hemorrhage, perforation, or obstruction BPH without urinary obstruction Seasonal allergic rhinitis due to pollen Acute non-recurrent maxillary sinusitis- Primary Type 2 diabetes mellitus with hyperglycemia, with long-term current use of insulin ([facility]) Melanocytic nevus of trunk- Primary Benign neoplasm of skin of trunk, except scrotum Seborrheic keratosis Lentigines Actinic keratosis Capillary angioma Nevus, non-neoplastic Melanocytic nevus of face, other location Epidermal inclusion cyst Sebaceous cyst Nummular eczema Contact dermatitis and other eczema, due to unspecified cause documented in this encounter [facility]* Diagnosis Type 2 diabetes mellitus with hyperglycemia, with long-term current use of insulin ([facility])- Primary Benign essential hypertension ([facility]) Essential hypertension, benign BPH without urinary obstruction Peptic ulcer disease Peptic ulcer, unspecified site, unspecified as acute or chronic, without mention of hemorrhage, perforation, or obstruction Seasonal allergic rhinitis due to pollen Chest pain at rest- Primary Unspecified chest pain Type 2 diabetes mellitus with hyperglycemia, with long-term current use of insulin ([facility]) Type 2 diabetes mellitus with hyperglycemia, with long-term current use of insulin ([facility])- Primary Benign essential hypertension ([facility]) Essential hypertension, benign Peptic ulcer disease Peptic ulcer, unspecified site, unspecified as acute or chronic, without mention of hemorrhage, perforation, or obstruction BPH without urinary obstruction Seasonal allergic rhinitis due to pollen Acute non-recurrent maxillary sinusitis- Primary Type 2 diabetes mellitus with hyperglycemia, with long-term current use of insulin ([facility]) Medicare annual wellness visit, subsequent- Primary Nocturnal leg cramps Pruritus Unspecified pruritic disorder Type 2 diabetes mellitus with hyperglycemia, with long-term current use of insulin ([facility]) Benign essential hypertension ([facility]) Essential hypertension, benign Encounter for long-term current use of medication documented in this encounter [facility]Evaluation note* Diagnosis Type 2 diabetes mellitus with hyperglycemia, with long-term current use of insulin ([facility])- Primary Benign essential hypertension ([facility]) Essential hypertension, benign BPH without urinary obstruction Peptic ulcer disease Peptic ulcer, unspecified site, unspecified as acute or chronic, without mention of hemorrhage, perforation, or obstruction Seasonal allergic rhinitis due to pollen Chest pain at rest- Primary Unspecified chest pain Type 2 diabetes mellitus with hyperglycemia, with long-term current use of insulin ([facility]) Type 2 diabetes mellitus with hyperglycemia, with long-term current use of insulin ([facility])- Primary Benign essential hypertension ([facility]) Essential hypertension, benign Peptic ulcer disease Peptic ulcer, unspecified site, unspecified as acute or chronic, without mention of hemorrhage, perforation, or obstruction BPH without urinary obstruction Seasonal allergic rhinitis due to pollen Acute non-recurrent maxillary sinusitis- Primary Type 2 diabetes mellitus with hyperglycemia, with long-term current use of insulin ([facility]) Medicare annual wellness visit, subsequent- Primary Nocturnal leg cramps Pruritus Unspecified pruritic disorder Type 2 diabetes mellitus with hyperglycemia, with long-term current use of insulin ([facility]) Benign essential hypertension ([facility]) Essential hypertension, benign Encounter for long-term current use of medication Hypomagnesemia- Primary Disorders of magnesium metabolism documented in this encounter [facility] note* Diagnosis Type 2 diabetes mellitus with hyperglycemia, with long-term current use of insulin ([facility])- Primary Benign essential hypertension ([facility]) Essential hypertension, benign BPH without urinary obstruction Peptic ulcer disease Peptic ulcer, unspecified site, unspecified as acute or chronic, without mention of hemorrhage, perforation, or obstruction Seasonal allergic rhinitis due to pollen Chest pain at rest- Primary Unspecified chest pain Type 2 diabetes mellitus with hyperglycemia, with long-term current use of insulin ([facility]) Type 2 diabetes mellitus with hyperglycemia, with long-term current use of insulin ([facility])- Primary Benign essential hypertension ([facility]) Essential hypertension, benign Peptic ulcer disease Peptic ulcer, unspecified site, unspecified as acute or chronic, without mention of hemorrhage, perforation, or obstruction BPH without urinary obstruction Seasonal allergic rhinitis due to pollen Acute non-recurrent maxillary sinusitis- Primary Type 2 diabetes mellitus with hyperglycemia, with long-term current use of insulin ([facility]) Medicare annual wellness visit, subsequent- Primary Nocturnal leg cramps Pruritus Unspecified pruritic disorder Type 2 diabetes mellitus with hyperglycemia, with long-term current use of insulin ([facility]) Benign essential hypertension ([facility]) Essential hypertension, benign Encounter for long-term current use of medication Dermatophytosis of nail- Primary Dystrophic nail Other specified disease of nail Diabetic polyneuropathy associated with type 2 diabetes mellitus ([facility]) Encounter for long-term (current) use of insulin ([facility]) Encounter for long-term (current) use of insulin documented in this encounter [facility]Evaluation note* Diagnosis Type 2 diabetes mellitus with hyperglycemia, with long-term current use of insulin ([facility])- Primary Benign essential hypertension ([facility]) Essential hypertension, benign BPH without urinary obstruction Peptic ulcer disease Peptic ulcer, unspecified site, unspecified as acute or chronic, without mention of hemorrhage, perforation, or obstruction Seasonal allergic rhinitis due to pollen Chest pain at rest- Primary Unspecified chest pain Type 2 diabetes mellitus with hyperglycemia, with long-term current use of insulin ([facility]) Type 2 diabetes mellitus with hyperglycemia, with long-term current use of insulin ([facility])- Primary Benign essential hypertension ([facility]) Essential hypertension, benign Peptic ulcer disease Peptic ulcer, unspecified site, unspecified as acute or chronic, without mention of hemorrhage, perforation, or obstruction BPH without urinary obstruction Seasonal allergic rhinitis due to pollen Acute non-recurrent maxillary sinusitis- Primary Type 2 diabetes mellitus with hyperglycemia, with long-term current use of insulin ([facility]) Medicare annual wellness visit, subsequent- Primary Nocturnal leg cramps Pruritus Unspecified pruritic disorder Type 2 diabetes mellitus with hyperglycemia, with long-term current use of insulin ([facility]) Benign essential hypertension ([facility]) Essential hypertension, benign Encounter for long-term current use of medication Left elbow pain- Primary Pain in joint, upper arm documented in this encounter [facility]Evaluation note* Diagnosis Onset Date Resolution Status Admit Date Prostate cancer acuteMay 2024 9:41amProstate canceracuteMay 2024 9:41am [facility] Work Phone: Evaluation note* Diagnosis Type [...] Essential hypertension, benign documented in this encounter [facility]Evaluation note* Diagnosis Type 2 diabetes [...] hyperglycemia, with long-term current use of insulin ([facility]) Medicare annual wellness visit, subsequent- Primary Nocturnal leg cramps Pruritus Unspecified pruritic disorder Type 2 diabetes mellitus with hyperglycemia, with long-term current use of insulin ([facility]) Benign essential hypertension Essential hypertension, benign Encounter for long-term current use of medication Preoperative clearance- Primary Unspecified pre-operative examination Other chest pain Abnormal EKG Nonspecific abnormal electrocardiogram (ECG) (EKG) Renal calculi Calculus of kidney Thrombocytopenia Unspecified thrombocytopenia Type 2 diabetes mellitus with hyperglycemia, with long-term current use of insulin ([facility]) Benign essential hypertension Essential hypertension, benign Dermatophytosis of nail- Primary Dystrophic nail Other specified disease of nail Diabetic polyneuropathy associated with type 2 diabetes mellitus ([facility]) Encounter for long-term (current) use of insulin ([facility]) Encounter for long-term (current) use of insulin documented in this encounter [facility] note* Diagnosis Type 2 diabetes mellitus with hyperglycemia, with long-term current use of insulin ([facility])- Primary Benign essential hypertension Essential hypertension, benign BPH without urinary obstruction Peptic ulcer disease Peptic ulcer, unspecified site, unspecified as acute or chronic, without mention of hemorrhage, perforation, or obstruction Seasonal allergic rhinitis due to pollen Chest pain at rest- Primary Unspecified chest pain Type 2 diabetes mellitus with hyperglycemia, with long-term current use of insulin ([facility]) Type 2 diabetes mellitus with hyperglycemia, with long-term current use of insulin ([facility])- Primary Benign essential hypertension Essential hypertension, benign Peptic ulcer disease Peptic ulcer, unspecified site, unspecified as acute or chronic, without mention of hemorrhage, perforation, or obstruction BPH without urinary obstruction Seasonal allergic rhinitis due to pollen Acute non-recurrent maxillary sinusitis- Primary Type 2 diabetes mellitus with hyperglycemia, with long-term current use of insulin ([facility]) Medicare annual wellness visit, subsequent- Primary Nocturnal leg cramps Pruritus Unspecified pruritic disorder Type 2 diabetes mellitus with hyperglycemia, with long-term current use of insulin ([facility]) Benign essential hypertension Essential hypertension, benign Encounter for long-term current use of medication Preoperative clearance- Primary Unspecified pre-operative examination Other chest pain Abnormal EKG Nonspecific abnormal electrocardiogram (ECG) (EKG) Renal calculi Calculus of kidney Thrombocytopenia Unspecified thrombocytopenia Type 2 diabetes mellitus with hyperglycemia, with long-term current use of insulin ([facility]) Benign essential hypertension Essential hypertension, benign Type 2 diabetes mellitus with hyperglycemia, with long-term current use of insulin ([facility])- Primary Benign essential hypertension Essential hypertension, benign BPH without urinary obstruction Peptic ulcer disease Peptic ulcer, unspecified site, unspecified as acute or chronic, without mention of hemorrhage, perforation, or obstruction Renal calculi Calculus of kidney documented in this encounter [facility] Narrative No data available for this section [facility] progtqru note No data available for this section [facility] progress note Author Rosy Pina [facility] July 12, 2022 9:52amNote Date/TimeFebruary 2022 9:36[facility] [address] Rad Onc Follow Up Note - OP Signed Patient: Zach Chamorro MR#: [id number] : 1945 Acct:[id number] Age/Sex: 76 / M Type: REG RCR [...] mL and was on tamsulosin 0.4 mg dailydue to the BPH at presentation. On June [...] months which is 3 months posttreatment for hisfirst PSA. Ideally we can reduce the Flomax [...] lymphadenopathy PI-RADS 4 MR fusion biopsy confirmed Thorndale 3+4 equal 7 in 3 cores including [...] BPHat baseline so he did require an increasein Flomax to twice daily. He returns to [...] signed by Rosy Pina MD> 07/12/22 0952 [facility] Work Phone: Progress note Author Rosa Davies [facility] December 13, 2022 10:35amNote Date/TimeJuly 2022 10:09[facility] [place] [id number] Rad Onc Follow Up Note - OP Signed Patient: Zach Chamorro MR#: [id number] : 1945 Acct:[id number] Age/Sex: 77 / M Type: REG RCR Copies to: MD Jermaine Quintero MD~ Subjective - Service Date/Time Date: 12/13/22 Time: 10:09 - Diagnosis Adenocarcinoma the prostate, Tanna score 3+4= 7, intermediate risk with initial PSA of 5.69, stage [id number] M0 - Chief Complaint I am no urinary or bowel complaints - History of Present Illness 77-year-old male with 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, Thorndale 3+4=7 disease in 3 cores on the right with initial pretreatment PSA of 5.69. Multi parametric MRI is consistent with the biopsy findings. There was a singlecore of Thorndale 3+3+6 disease that was found on the [...] motor or sensory changes. No fever, chills ornight sweats. His appetite and weight remain stable. [...] Resp 18 12/13/22 09:33 BP 150/77 H 07/05/23 09:33 Pulse Ox 98 12/13/22 09:33 O2 Del Method Room Air 12/13/22 09:33 Pain: 0/10 Distress Screen Results: RN Distress Screening Start: 04/27/22 09:18 Freq: Status: Active Protocol: Document 12/13/22 09:34 SM (Rec: 12/13/22 09:34 SM [id number]) Distress Screening [...] residual skin reaction. Rectal examination was deferred today.No leg edema. Patient remains neurologically stable Results Total PSA 2.090 ng/mL (0.000-4.000) 09/04/22 13:40 Impression: Adenocarcinoma the prostate, Thorndale score 3+4= 7, intermediate risk with initial [...] signed by Rosa Davies MD> 12/13/22 1035 [facility] Work Phone: Progress note Author Rosy Silvana [facility] January 10, 2024 10:47amNote Date/TimeAugust 2023 10:38[facility] [place] [address] Cancer Center Note Signed Patient: Zach Chamorro MR#: [id number] : 1945 Acct:[id number] Age/Sex: 78 / M Type: REG AMB Date of Service: 01/10/24 Copies to: MD Jermaine Quintero MD~ Assessment & Plan (1) Prostate cancer: Plan: Return to clinic late Apr 2024 with PSA -will transition to 6-month follow-up [id number] as he will be 2 years out. [...] April 2024 and then transition to 6-month follow- up. He was given the option of phone [...] times a night as well as increased urgencyand frequency. Quality of life mostly satisfied. He [...] Known Allergies Allergy (Verified 09/18/23 10:05) [facility] Medical History Medical History (Updated [...] et al, and the Measurement [employer]of the [employer]. The [employer] symptom index for benign prostatic hyperplasia. J Urol. 1992; 148: 5134-3163. Copyright 1992 [employer] IMER Score Over the past [...] signed by Rosy Pina MD> 01/10/24 1047 [facility] Work Phone: Progress note Author Ingrid ArteagaCherrington HospitalNote Date/TimeMay 2024 10:07[facility] [place] [address] Cancer Center Note Signed Patient: Zach Chamorro MR#: [id number] : 1945 Acct:[id number] Age/Sex: 79 / M Type: DEP AMB Date of Service: 11/04/24 Copies to: Blake Ng MD~ Assessment & Plan A/P (1) Prostate cancer: Plan: Return to clinic with WOOD MODEL BUILDER Apr 2025 with next PSA Assessment: 78-year-old male with 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 Patient [...] prostate Patient Instructions: follow-up in 6mo with WOOD MODEL BUILDER PSA in 6mo CHEMO PLAN No Active [...] as the right anterior medial gland and Thorn[place] 3+3 equal 6 in 1 core at [...] Known Allergies Allergy (Verified 09/18/23 10:05) [facility] Medical History Medical History (Updated [...] et al, and the Measurement Committeeof the [employer]. The [employer] symptom index for benign prostatic hyperplasia. J Urol. 1992; 148: 6949-5214. Copyright 1992 [employer] Over the past six months [...] the time) IMER Total: 6 Dictated By: Ingrid Bertrand APRN DD/ 0948 Signed By: <Electronically signed by MARIO Bertrand> 11/04/24 1012 [facility] Work Phone: Reason for referral (narrative) Referred by: Jermaine JENSEN MD [facility] reason for referral (narrative)No reason for referral information availableLake[facility] Work Phone: Summary Purpose Family History No Family History Records Found Relationship Condition Age at Onset Recorded Date/T margarito father Gastric ulcer Unknown Not SpecifiedDiabetes mellitusUnknownCerebrovascular accident (CVA)Unknown brotherMalignant neoplasm of prostateUnknownMalignant neoplasm of throatUnknown Diabetes mellitusUnknownbrotherMyocardial infarctionUnknown Relationship Condition Age at Onset Recorded Date/T margarito father Gastric ulcer Unknown motherDiabetes mellitusUnknownCerebrovascular accident (CVA)Unknownbrother Malignant neoplasm of prostateUnknownMalignant neoplasm of throatUnknownDiabetes mellitusUnknownbrotherMyocardial infarctionUnknown Advance Directives No Advanced Directives Records Found Advance Directive Response Recorded Date/ Time Advance Directives No June 20, 2017 11:20am Advance Directive Response Recorded Date/ Time Advance Directives No June 20, 2017 10:20am Medications Administered Section Medication OrderMAR ActionAction DateDoseRateSite fluorescein-benoxinate 0.25-0.4 % 1 Drop (FLURESS) 1 Drop, BOTH EYES, ONCE, 1 dose, On Sun10/25/21 at 1130, FOR THE EYE Given10/25/2021 11:30 AM EDT1 Drop Chief Complaint and Reason for Visit Chief Complaint Admit Date 6 Month Follow Up, Review PSA November 04, 2024 9:41am N20.0 December 24, 2024 2:42 pm Reason for Visit Admit Date Prostate cancer November 04, 2024 9:41a m Chief Complaint elevated psa Chief Complaint elevated psa Prostate CancerReason for VisitProstate cancer Chief Complaint elevated psa Prostate Cancer Prostate CancerReason for VisitProstate cancer Chief Complaint elevated psa Prostate Cancer Prostate Cancer Prostate Cancer, ScreeningReason for VisitProstate cancer Chief Complaint Prostate Cancer Prostate Cancer, Screening Prostate CancerReason for VisitProstate cancer Chief Complaint Prostate Cancer Reason for Visit Prostate cancer Chief Complaint Prostate Cancer R97.20;N40.1;N20.0Reason for VisitProstate cancer Chief Complaint R97.20;N40.1;N20.0 Prostate CancerReason for VisitProstate cancer Chief Complaint Prostate Cancer Chest PainReason for VisitProstate cancer Chief Complaint Chest Pain Prostate Cancer Follow Up, Prostate CancerReason for VisitProstate cancer Prostate cancer Chief Complaint n40.1 c61 n20.0 Chief Complaint n40.1 c61 n20.0 Prostate Cancer 4 Month Follow Up ProstateReason for VisitProstate cancer Prostate cancer Chief Complaint n40.1 c61 n20.0 Prostate Cancer 4 Month Follow Up Prostate Z79.899 E11.65 Z79.4 E78.5Reason for VisitProstate cancer Prostate cancer Chief Complaint Admit Date E11.65, Z79.4, Z79.899 August 06 1:53pm Chief Complaint Admit Date 6 Month Follow Up, Review PSA November 04, 2024 9:41am Chief Complaint Admit Date N20.0 December 24, 2024 2:42 pm [facility] F/U HE[facility] C[facility] STINT March 10:37am Additional Source Comments (unrecognized sect ion and content) No Status Records FoundNo Status Records FoundNo Status Records FoundNo Status Records FoundNo Status Records FoundNo Status Records FoundNo Status Records FoundNo Status Records Found INFORMATION SOURCE (unrecogn ized section and content) DATE CREATED AUTHOR 11/29/2017 [facility] DATE CREATED AUTHOR AUTHOR'S ORGANIZ ATION 11/09/2021 [facility] DATE CREATED AUTHOR AUTHOR'S ORGANIZ ATION 07/31/2022 [facility] DATE CREATED AUTHOR AUTHOR'S ORGANIZ ATION 01/07/[address] [facility] DATE CREATED AUTHOR AUTHOR'S ORGANIZ ATION 01/09/[address] [facility] DATE CREATED AUTHOR AUTHOR'S ORGANIZ ATION 01/31/[address] [facility] DATE CREATED AUTHOR AUTHOR'S ORGANIZ ATION 02/04/2025 [facility] DATE CREATED AUTHOR AUTHOR'S ORGANIZ ATION 04/14/2025 [facility] Source Comments (unrecognize d section and content) In the event this informatio n is protected by the Federal Confidentiality of Alcohol and Drug Abuse Patient Records regulations: The Federal rules restrict any use of the information to criminally investigate or prosecute any alcohol or drug abuse patient.[facility] Reason for Visit (unrecogniz ed section and content) ReasonCommentsOS Selma VeraLV 1ReasonCommentsDM Foot CareGary Sumit Chamorro is a 78 y.o. male who presents for DM Foot Care. BS: 113 A1C: 7.1/Lv Dr. Ng 01/28/2024/SS: 12ReasonCommentsShoe MeasureGary Sumit Chamorro is a 78 y.o. male who presents for DM Foot Care. BS: 113 A1C: 7.1/Lv Dr. Ng 01/09/SS: 12ReasonCommentsShoe Pick upGary Sumit Chamorro is a 78 y.o. 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 BS: 113 A1C: 7.1/Lv Dr. Ng 01/28/2024/SS: 12 ReasonCommentsNew Med RequestReasonCommentsFoot PainEstablished pt presents today with cocnertns of painful lump on left foot in arch. Noticed this past weekend. PCP: Dr. Ng 01/28/24, A1C: 7.1, BS:, SS: 12ReasonOnset Date CommentsAdvice Only4ReasonCommentsFollow-upEstablished pt presents today for 1 month fuv for left foot pain and swelling, pt states has not been painful, but still swelling. PCP: Dr. Ng 01/28/24, A1C: 6.5, BS: 86, SS: 12ReasonCommentsCoughSinusitisEpistaxis (Nose Bleed)ReasonCommentsDM Foot Care PCP: Dr. Ng 06/30/24, A1C: 7.1 (01/2024), BS: 190ReasonCommentsSkin Check Follow-upReasonCommentsMedicare Annual Wellness Visit SubsequentwellnessReason CommentsDM Foot CarePT is here today with his spouse for diabetic foot care, he states the nails are becoming painful for himBS: 89 A1C: 7.4LV Dr. Ng 08-05-2024SS: 12ReasonCommentsPainReasonCommentsFollow-upSurgical clearanceReason CommentsNail careGary Sumit Chamorro is a 79 y.o. male who presents for DM Foot Care (PT is here today with his spouse for diabetic foot care, he states the nails are becoming painful for him/BS: 104 A1C: 7.4/LV Dr. Ng 01-02-2025/SS: 12 ReasonCommentsFollow-up6m Care Teams (unrecognized sec tion and content) Team Status: Active Member Role Status Dates Blake Ng MD Primary Care Provider Active Team Status: Inactive Member Role Status Dates Blake Ng MD Primary Care Provide r, Attending Provider Active Start: August 22, 2023 End: August 22, 2023W Cal Baker ProviderActiveStart: August 22, 2023 End: August 22, 2023 Team Status: Active Member Role Status Dates Blake Ng MD Primary Care Provider Active S tart: September 18, 2023 Nelli Vergara ProviderActiveStart: September 18, 2023 Cheyanne Vázquez ProviderActiveStart: September 18, 2023 Team Status: Inactive Member Role Status Dates Blake Ng MD Primary Care Provider Active S tart: September 18, 2023 End: September 18, 2023Nelli Vergara ProviderActiveStart: September 18, 2023 End: September 18, 2023Team MemberRelationshipSpecialtyStart DateEnd Date Alejandro Davenport PCP - [facility]10/02/13 Team Status: Inactive Member Role Status Dates Jermaine Jensen MD Attending Provider Active Brittani Quintero Care ProviderActive Team Status: Active Member Role Status Dates Blake Ng MD Primary Care Provider Active Nelli Vergara ProviderActiveCheyanne Vázquez ProviderActive Team Status: Inactive Member Role Status Dates Blake Ng MD Primary Care Provider Active Nelli Vergara ProviderActive Team Status: Inactive Member Role Status Dates Blake Ng MD Primary Care Provider Active Nelli Vázquez ProviderActiveCheyanne Vergara ProviderActiveTeam MemberRelationshipSpecialtyStart DateEnd Date Blake Ng MD [facility]12/21/22Team MemberRelationshipSpecialtyStart DateEnd Date Blake Ng MD [facility]12/21/22 Team Status: Active Member Role Status Dates Blake Ng MD Primary Care Provider Active S tart: June 13, 2023 Rosy Pina , MDAttending ProviderActiveStart: June 13, 2023 Jermaine Jensen MDReferring ProviderActiveStart: June 13, 2023 Team Status: Inactive Member Role Status Dates Blake Ng MD Primary Care Provider Active S tart: December 19, 2023 End: December 18mini Jensen MDAttending ProviderActiveStart: December 19, 2023 End: December 19, 2023 Team Status: Active Member Role Status Dates Blake Ng MD Primary Care Provider Active S tart: January 10, 2024 Rosy Pina MDAttending ProviderActiveStart: January 10, 2024 Jermaine Jensen , MDReferring ProviderActiveStart: January 10, 2024 Team Status: Inactive Member Role Status Dates Blake Ng MD Primary Care Provider Active S tart: January 10, 2024 End: January 10, 2024Rosy Pina , MDAttending ProviderActiveStart: January 10, 2024 End: January 09mini Jensen MDReferring ProviderActiveStart: January 10, 2024 End: January 10, 2024 Team Status: Inactive Member Role Status Dates Blake Ng MD Primary Care Provide r, Attending Provider Active Start: January 25, 2024 End: January 25, 2024Team MemberRelationshipSpecialtyStart DateEnd Date Blake Ng MD [address] [place] [address] PCP [facility]07/24/23Team MemberRelationshipSpecialtyStart DateEnd Date Blake Ng MD [address] [place] [address] PCP - GeneralFamily Medicine07/24/23Team MemberRelationshipSpecialtyStart DateEnd Date Balke Ng MD [address] [place] [address] PCP - Generalmily Medicine07/24/23Team MemberRelationshipSpecialtyStart DateEnd Date Blake Ng MD [address] [place] [address] PCP - [facility]07/24/23Team MemberRelationshipSpecialtyStart DateEnd Date Blake Ng MD [address] [place] [address] PCP - [facility] Medicine07/24/23Team MemberRelationshipSpecialtyStart DateEnd Date Blake Ng MD [address] [place] [address] PCP - [facility]07/24/23Team MemberRelationshipSpecialtyStart DateEnd Date Blake Ng MD [address] [place] [address] PCP - Generalm[facility] Medicine07/24/23Team MemberRelationshipSpecialtyStart DateEnd Date Blake Ng MD [address] [place] [address] PCP - GeneralFamily Medicine07/24/23Team MemberRelationshipSpecialtyStart DateEnd Date Blake Ng MD [address] [place] [address] PCP - [facility]07/24/23Team MemberRelationshipSpecialtyStart DateEnd Date Blake Ng MD [address] [place] [address] PCP - [facility]07/24/23 Blake Ng MD [address] [place] [address] PCP - [facility]07/18/24Team MemberRelationshipSpecialtyStart DateEnd Date Blake Ng MD [address] [place] [address] PCP - [facility]07/24/23 Blake Ng MD [address] [place] [address] PCP - [facility]07/18/24Team MemberRelationshipSpecialtyStart DateEnd Date Blake Ng MD [address] [place] [address] PCP - [facility]07/24/23 Blake Ng MD [address] [place] [address] PCP - [facility]07/18/24Team MemberRelationshipSpecialtyStart DateEnd Date Blake Ng MD [address] [place] [address] PCP - [facility]07/24/23 Blake Ng MD [address] [place] [address] PCP [facility]07/18/24Team MemberRelationshipSpecialtyStart DateEnd Date Blake Ng MD [address] [place] [address] [facility]07/24/23 Blake Ng MD [address] [place] [address] [facility]07/18/24 Team Status: Inactive Member Role Status Dates Blake Ng MD Primary Care Provide r, Attending Provider Active Start: August 06, 2024 End: August 06, 2024Team MemberRelationshipSpecialtyStart DateEnd Date Blake Ng MD [address] [place] [address] [facility]07/24/23 Blake Ng MD [address] [place] [address] [facility]07/18/24Team MemberRelationshipSpecialtyStart DateEnd Date Blake Ng MD [address] [place] [address] [facility]07/24/23 Blake Ng MD [address] [place] [address] [facility]07/18/24Team MemberRelationshipSpecialtyStart DateEnd Date Blake Ng MD [address] [place] [address] [facility]07/24/23 Blake Ng MD [address] [place] [address] [facility]07/18/24Team MemberRelationshipSpecialtyStart DateEnd Date Blake Ng MD [address] [place] [address] [facility]07/24/23 Blake Ng MD [address] [place] [address] [facility]07/18/24 Team Status: Inactive Member Role Status Dates Blake Ng MD Primary Care Provider Active S tart: November 04, 2024 End: November 04, 2024Ingrid Bertrand APRNAttenmau ProviderActiveStart: November 04, 2024 End: November 04, 2024ANIYA Vázquezeferrreshma ProviderActiveStart: November 04, 2024 Team Status: Inactive Member Role Status Dates Blake Ng MD Primary Care Provider Active S tart: December 24, 2024 End: December 24, 2024Jermaine Jensen MDAttshaw ProviderActiveStart: December 24, 2024 End: December 24, 2024Team MemberRelationshipSpecialtyStart DateEnd Date Blake Ng MD [address] [place] [address] PCP - [facility]07/24/23 Blake Ng MD [address] [place] [address] PCP - [facility]07/18/24Team MemberRelationshipSpecialtyStart DateEnd Date Blake Ng MD [address] [place] [address] PCP - [facility]07/24/23 Blake Ng MD [address] [place] [address] PCP - [facility]07/18/24Team MemberRelationshipSpecialtyStart DateEnd Date Blake Ng MD [address] [place] [address] PCP - [facility]07/24/23 Blake Ng MD [address] [place] [address] PCP - [facility]07/18/24Team MemberRelationshipSpecialtyStart DateEnd Date Blake Ng MD [address] [place] [address] PCP - [facility]07/24/23 Blake Ng MD [address] [place] [address] [facility]07/18/24Team MemberRelationshipSpecialtyStart DateEnd Date Blake Ng MD [address] [place] [address] [facility]07/24/23 Blake Ng MD [address] [place] [address] [facility]07/18/24Team MemberRelationshipSpecialtyStart DateEnd Date Blake Ng MD [address] [place] [address] [facility]07/24/23 Blake Ng MD [address] [place] [address] [facility]07/18/24Team MemberRelationshipSpecialtyStart DateEnd Date Blake Ng MD [address] [place] [address] [facility]07/24/23 Blake Ng MD [address] [place] [address] [facility]07/18/24 Team Status: Active Member Role Status Dates Blake Ng MD Primary Care Provider Active S tart: February 20, 2025 Nelli Elias ProviderActiveStart: February 20, 2025 Team Status: Inactive Member Role Status Dates Blake Ng MD Primary Care Provider Active S tart: March 11, 2025 End: March 11, 2025[facility] CenterNelli Paige ProviderActiveStart: March 11, 2025 End: March 11, 2025 Goals (unrecognized section and content) Goals may [...] BE BASED ON THE PRIMARY CLINICAL RECORDS. [facility]. provides no warranty or guarantee of the accuracy or completeness of information in this document.
--- OUTSIDE RECORDS SUMMARY | 2025-04-25 08:08 | XMS_ITS | Clinical Summary ---
Author Organization [facility] Address [address], [address] [place] [address] Care Team Providers Care Iron Plastic Bullet Maker Name Role Phone Unavailable Primary Care Provider Unavailabl e Allergies No known active allergies Medications MedicationSigDispense QuantityRefillsLast FilledStart DateEnd DateStatus esomeprazole Magnesium (NEXIUM) 20 MG PACK Take 20 mg by mouth dailyActive insulin glargine (LANTUS) 100 UNIT/ML injection vial Inject into the skin nightlyActive allopurinol (ZYLOPRIM) 100 MG tablet Take 100 mg by mouth dailyActive metFORMIN (GLUCOPHAGE) 1000 MG tablet Take 1,000 mg by mouth 2 times daily (with meals)Active lisinopril (PRINIVIL;ZESTRIL) 20 MG tablet Take 20 mg by mouth dailyActive metoprolol succinate (TOPROL XL) 50 MG extended release tablet Take 50 mg by mouth dailyActive ROSUVASTATIN CALCIUM PO Take by mouthActive Dulaglutide (TRULICITY) 0.75 MG/0.5ML SOPN Inject 0.75 mg into the skin once a weekActive tamsulosin (FLOMAX) 0.4 MG capsule Take 0.4 mg by mouth dailyActive Cyanocobalamin (VITAMIN B 12 PO) Take by mouthActive insulin lispro (HUMALOG) 100 UNIT/ML injection vial Inject into the skin 3 times daily (before meals)Active aspirin 81 MG EC tablet Take 81 mg by mouth dailyActive Coenzyme Q10 (COQ10) 100 MG CAPS Take by mouthActive terbinafine (LAMISIL) 1 % cream Apply topically 2 times daily Apply topically 2 times daily.Active Multiple Vitamins-Minerals (MULTIVITAMIN ADULT PO) Take by mouthActive celecoxib (CELEBREX) 100 MG capsule Take 100 mg by mouth 2 times dailyActive Active Problems ProblemNoted DateDiagnosed DateReactive dijeucnnvcrntfc93/24/2020 Family History Medical HistoryRelationNameCommentsDiabetesBrotherHeart DiseaseBrother HypertensionBrotherDiabetesMotherHypertensionMotherStrokeMotherDiabetesSon RelationNameStatusCommentsBrotherAliveMotherDeceasedSonAlive Social History Tobacco UseTypesPacks/DayYears UsedDateSmoking Tobacco: NeverSmokeless Tobacco: NeverAlcohol UseStandard Drinks/WeekCommentsNot Currently0 (1 standard drink = 0.6 oz pure alcohol)socialSex and Gender InformationValueDate RecordedSex Assigned at BirthNot on fileLegal BctQnaf3107/21/2012 11:38 AM ESTGender Identity Not on fileSexual OrientationNot on file Last Filed Vital Signs Vital SignReadingTime TakenCommentsBlood Qfrpthmg051/8905/04/2020 10:27 AM EST Rghhh877705/04/2020 10:27 AM ZAXBrnyexdanoc42.6 ??C (97.9 ??F)05/04/2020 10:27 AM ESTRespiratory Rate--Oxygen Saturation--Inhaled Oxygen Concentration--Cgbxmp84.5 kg (215 lb)05/04/2020 10:27 AM MNHBmqtfl429.5 cm (6' 3 )05/04/2020 10:27 AM EST Body Mass Index26.8705/04/2020 10:27 AM EST Plan of Treatment Not on file Insurance * Guarantor: Fabian Chamorro TypeRelation to PatientDate of BirthPhone Billing AddressPersonal/FgtjhoTlaf50/12/1946 [address] [address]
--- OUTSIDE RECORDS SUMMARY | 2025-04-25 08:08 | XMS_ITS | Clinical Summary ---
Author Organization [facility] Address [id number] [address] [place] [address] Care Team Providers Care National Secretary Name Role Phone Blake Larson MD Primary Care Provider [phone] Allergies No known active allergies Medications MedicationSigDispense QuantityRefillsLast FilledStart DateEnd DateStatus metFORMIN (GLUMETZA) 1000 MG (MOD) 24 hr tablet Indications:type 2 diabetes mellitusTake 1,000 mg by mouth 2 (two) times a day with meals.Active lisinopril (PRINIVIL,ZESTRIL) 20 mg tablet Take 20 mg by mouth daily.Active tamsulosin (FLOMAX) 0.4 mg capsule,extended release 24hr Take 0.4 mg by mouth nightly.Active metoprolol succinate XL (TOPROL-XL) 100 mg 24 hr tablet Take 100 mg by mouth daily.Active allopurinol (ZYLOPRIM) 300 mg tablet Take 300 mg by mouth daily.Active cyanocobalamin 1000 MCG tablet Take 1,000 mcg by mouth daily.Active insulin glargine (LANTUS, BASAGLAR) 100 unit/mL (3 mL) insulin pen Inject 60 Units under the skin nightly.Active dulaglutide (TRULICITY) 1.5 mg/0.5 mL pen injector Inject 1 Dose under the skin once a week. Takes weekly on ctive VIT A/VIT C/VIT E/ZINC/COPPER (ICAPS AREDS ORAL) Take 1 tablet by mouth daily.Active rosuvastatin (CRESTOR) 10 mg tablet Take 10 mg by mouth daily.Active esomeprazole (NexIUM) 40 mg capsule Take 40 mg by mouth every morning before breakfast.Active Active Problems ProblemNoted DateDiagnosed DateTransient cerebral xigmpjso90/22/2018 Family History Medical HistoryRelationNameCommentsDiabetesMotherRelationNameStatusComments Mother Social History Tobacco UseTypesPacks/DayYears UsedDateSmoking Tobacco: NeverSmokeless Tobacco: NeverAlcohol UseStandard Drinks/WeekCommentsYes3 (1 standard drink = 0.6 oz pure alcohol)ChildcareAnswerDate AqqxjbeeJncqpnmwyDhgyxgw76/12/2019EmploymentAnswer Date UuwdafqpHojncmvvbrIaesrry82/12/2019Purpose - LifeAnswerDate RecordedPurpose and direction in wyhvIwejvhq58/11/2021Sex and Gender InformationValueDate RecordedSex Assigned at BirthNot on fileLegal SykFeks1401/14/2015 11:31 AM EDT Gender IdentityNot on fileSexual OrientationNot on file Last Filed Vital Signs Vital SignReadingTime TakenCommentsBlood Cryoapxx711/7503 3:47 PM EDT Rfrbo1450 3:47 PM HURDmxuhjzujjr11.5 ??C (97.7 ??F)08/30/2017 3:47 PM EDTRespiratory Osdt7510 3:47 PM EDTOxygen Xlkvqrirkg57%08/30/2017 3:47 PM EDTInhaled Oxygen Concentration--Kbroxl96 kg (216 lb 0.8 oz)08/30/2017 3:16 AM GDGUqjooj134 cm (6' 2 )08/29/2017 11:00 AM EDTBody Mass Index27.7403 11:00 AM EDT Plan of Treatment Not on file Medical Devices Not on file Insurance Advance Directives * Full Code (Latest Code Status on File) Date ActivatedDate InactivatedComments08/29/2017 3:43 PM08/30/2017 7:25 PM Care Teams Team MemberRelationshipSpecialtyStart DateEnd Date Blake Larson MD PCP - GeneralFamily Medicine08/29/17
[2025-04-25 08:37] LABS: Hematocrit 32.4 % (42.0-54.0); Hemoglobin 11.1 g/dL (14.0-18.0); Immature Granulocytes Abs Auto 0.02 10^3/uL (0.00-0.03); Immature Granulocytes Pct Auto 0.3 % (0.0-0.5); Lymphocytes Absolute Auto 1.1 10^3/uL (1.2-3.8); Mean Corpuscular HGB Conc 34.3 g/dL (29.9-35.2); Mean Corpuscular Hemoglobin 32.6 pg (25.9-34.0); Mean Corpuscular Volume 95.3 fL (80.0-94.0); Platelet Count 137 10^3/uL (150-450); Red Blood Count 3.40 10^6/uL (4.70-6.10); White Blood Count 6.3 10^3/uL (4.0-11.0)
[2025-04-25 08:39] LABS: Anion Gap 14.5; Blood Urea Nitrogen 23.0 mg/dL (7.0-18.0); Calcium 9.4 mg/dL (8.5-10.1); Carbon Dioxide 26.9 mmol/L (21.0-32.0); Chloride 105 mmol/L (98-107); Estimated GFR (African America >60 (>=60 mL/min/1.73m^2); Estimated GFR (Non-African Ame >60 (>=60 mL/min/1.73m^2); Glucose 111 mg/dL (74-106); Potassium 4.4 mmol/L (3.5-5.1); Sodium 142 mmol/L (136-145)
== END 2025-04-25 08:03 | disposition home or self-care (01) ==
PROVIDERS: PCP Family Medicine; Visit Provider Internal Medicine Interventional Cardiology
DX: I25.118 Atherosclerotic heart disease of native coronary artery with other forms of angina pectoris (principal); R94.39 Abnormal result of other cardiovascular function study
CPT/HCPCS: 36415; 80048; 85025